=== PATIENT | female | born 1955 | race Caucasian/White ===

== ENCOUNTER → 2017-04-19 | Outpatient (CLI) | payer OTHER ==
[~2017-04-19] MED LIST: ALBU1AER9 INH; FEXO1TAB46 PO; FLUT0.0529 NAE; MIRT15TA2 PO; PSEU30TA20 PO; TIOTCAP INH; TRAM-10 PO
--- NOTE | 2017-04-19 17:01 | DIAGNOSTIC IMAGING REPORT ---
CHEST 2 VIEWS ROUTINE HISTORY: 61 years-old Female COUGH acute cough COMPARISON: Chest radiograph 03/15/2013, chest CT 09/03/2015 TECHNIQUE: PA and lateral views of the chest FINDINGS: Cardiac silhouette is within normal limits. There is no pneumothorax, pleural effusion, or overt pulmonary edema. Patchy opacities are present within the right middle lobe. Severe edematous changes with areas of pleural-parenchymal scarring redemonstrated along with hyperinflation. Bones of the chest appear grossly intact. IMPRESSION: 1. Patchy alveolar opacities of the right middle lobe are suspicious for pneumonia in the appropriate clinical setting. 2. Emphysema. The above report was generated using voice recognition software. It may contain grammatical, syntax or spelling errors. Electronically signed by: Tom Lechuga M.D. 04/19/2017 5:00 PM Dictated Date/Time: 04/19/2017 4:57 PM
== END | disposition home or self-care (01) ==
LOC: C.RAD1850 16:48
PROVIDERS: ATTEND Family Medicine
DX: J43.9 Emphysema, unspecified (principal); R05 Cough

== ENCOUNTER → 2017-04-21 | Outpatient (CLI) | payer OTHER ==
--- NOTE | 2017-04-21 11:41 | DIAGNOSTIC IMAGING REPORT ---
(CHEST) THORAX WITHOUT CT DOSE: 170.38 mGycm CLINICAL HISTORY: 61 years-old Female with ABNORMAL FINDINGS IN LUNG FIELD. Follow-up study to assess lung nodules. History of tobacco abuse and recent pneumonia. TECHNIQUE: Multiaxial CT images of the chest were performed without contrast. A dose lowering technique was utilized adhering to the principles of ALARA. COMPARISON: Chest radiograph 04/19/2017, Chest 09/03/2015, 05/09/2013. FINDINGS: Low attenuating ovoid nodule of the left thyroid lobe measures 12 x 9 mm. No pathologically enlarged lymph nodes of the chest identified by CT size criteria. The heart is normal in size with a small pericardial effusion measuring up to 7 mm anteriorly. Coronary arterial disease. No aortic aneurysm identified. There is mild atherosclerosis of the aorta. Trace right pleural effusion. No pneumothorax. Advanced emphysema. Unchanged 3 mm pulmonary nodule of the left lower lobe on image 220 series 4. 7 x 5 mm ovoid pleural-based nodule of the right lower lobe on image 184 series 4 is unchanged from comparison. 3 mm pleural-based nodule of the left lower lobe on image 119 series 4 is also unchanged. There are nodular tree-in-bud opacities scattered throughout the basal right lower lobe compatible with infectious bronchiolitis. Additionally, patchy alveolar opacities are present within the right middle lobe and medial basal segment right lower lobe. Opacity of the right lower lobe measures 2.0 x 1.3 cm on image 22 series 4. Mild layering secretions of the bronchus intermedius and segmental bronchi of the medial basal segment right lower lobe. Mild bilateral bronchial wall thickening compatible with bronchitis. No acute abnormality of the imaged upper abdomen. Soft tissues are unremarkable. IMPRESSION: 1. Patchy alveolar opacities throughout the right middle and lower lobes suggest pneumonia or aspiration pneumonitis. Areas of subsegmental infectious bronchiolitis are also noted within the right lower lobe with bronchitis and layering secretions of the bronchus intermedius and segmental bronchi of the medial basal segment right lower lobe. Short-term follow-up imaging is needed to document resolution. 2. Trace right pleural effusion. 3. Severe emphysema. 4. Unchanged bilateral pulmonary nodules as above. Electronically signed by: Tom Lechuga M.D. 04/21/2017 11:39 AM Dictated Date/Time: 04/21/2017 11:30 AM
== END | disposition home or self-care (01) ==
LOC: C.CTS 11:18
PROVIDERS: ATTEND Family Medicine
DX: R91.8 Other nonspecific abnormal finding of lung field (principal); J40 Bronchitis, not specified as acute or chronic; J43.9 Emphysema, unspecified; Z87.891 Personal history of nicotine dependence

== ENCOUNTER → 2017-08-03 | Outpatient (CLI) | payer OTHER ==
--- NOTE | 2017-08-03 10:25 | DIAGNOSTIC IMAGING REPORT ---
CHEST 2 VIEWS ROUTINE HISTORY: Shortness of breath. COMPARISON: Chest 04/19/2017. FINDINGS: The lungs are hyperexpanded with apical predominant emphysematous changes. The heart is normal in size. No pleural effusions. No pneumothorax. Left lung remains clear. Right middle lobe density has improved but not completely resolved. IMPRESSION: The right middle lobe density has improved but has not completely resolved. Follow-up chest CT in one month is recommended to ensure complete resolution. Electronically signed by: Rodrigue Palacios M.D. 08/03/2017 10:24 AM Dictated Date/Time: 08/03/2017 10:13 AM
== END | disposition home or self-care (01) ==
LOC: C.RAD1850 09:55
PROVIDERS: ATTEND Physician Assistant
DX: R06.02 Shortness of breath (principal)

== ENCOUNTER → 2017-09-01 | Outpatient (CLI) | payer OTHER ==
--- NOTE | 2017-09-01 10:04 | DIAGNOSTIC IMAGING REPORT ---
CHEST 2 VIEWS ROUTINE HISTORY: 61 years-old Female R91.1 Solitary pulmonary [id number] COMPARISON: Chest radiograph 08/03/2017, chest CT 04/21/2017 TECHNIQUE: PA and lateral views of the chest FINDINGS: Cardiomediastinal and hilar silhouettes are within normal limits. Nipple shadows project of the bilateral lung bases. Advanced emphysema with chronic reticulation redemonstrated. Ill-defined opacities about the medial right lung base are again noted with the previously described discrete pulmonary nodule not definitively seen. Pleural-based opacity projects over the posterior right lung base, seen best on the lateral view. Bones of the chest appear grossly intact. Degenerative changes of the shoulders and spine. IMPRESSION: 1. Ill-defined subsegmental opacities about the right lung base as above likely correlate with the previously described finding seen on CT chest dated 04/21/2017. 2. Emphysema with chronic interstitial coarsening. The above report was generated using voice recognition software. It may contain grammatical, syntax or spelling errors. Electronically signed by: Tom Lechuga M.D. 09/01/2017 10:03 AM Dictated Date/Time: 09/01/2017 9:59 AM
== END | disposition home or self-care (01) ==
LOC: C.RAD1850 09:50
PROVIDERS: ATTEND Physician Assistant
DX: R91.1 Solitary pulmonary nodule (principal); J43.9 Emphysema, unspecified

== ENCOUNTER 2019-01-12 23:25 | Inpatient (IN) ==
--- OUTSIDE RECORDS SUMMARY | 2019-01-12 23:29 | External Medical Summary | Continuity of Care Document ---
:1955 Author Name Van Bui, Provider Address Unavailable Unavailable , Care Team Providers Name Role Phone Unavailable Unavailable Unavailable Memo GRANADO, Fortunato Unavailable [email or web address] Chaka GRANADO, Ashley Unavailable [email or web address] Calista Royal Unavailable [email or web address] LIANE ADORNO Unavailable Unavailable Unavailable Unavailable Unavailable Problems Anxiety (300.00) (F41.9) Gastritis (535.50) (K29.70) Cervical atypism (622.10) (N87.9) Tobacco use (305.1) (Z72.0) Acute sinus infection (461.9) (J01.90) History of pneumonia (V12.61) (Z87.01) Acute bronchitis (466.0) (J20.9) Pulmonary emphysema (492.8) (J43.9) Current tobacco use (305.1) (Z72.0) Chest pain (786.50) (R07.9) Emphysema (492.8) History of allergy (V15.09) (Z88.9) Chronic obstructive pulmonary disease (496) (J44.9) Solitary pulmonary nodule (793.11) (R91.1) Vaginal yeast infection (112.1) (B37.3) Shortness of breath (786.05) (R06.02) Allergies and Adverse Reactions Aspirin TABS (Allergy) Reaction: Nausea, Vomiting PredniSONE TABS (Allergy) Reaction: Othe r Medications Azithromycin 250 MG Oral Tablet; take on e tablet by mouthevery tuesday, tuesday and tuesday LOY Hampton Start: 17-Feb-2018 Quantity: 12 Refills: 3 ProAir HFA 108 (90 Base) MCG/ACT Inhalat ion Aerosol Solution; INHALE 2 PUFFS EVERY 4 HOURS NEEDED. THIS IS A 20 DAY SUPPLY. LOY Hampton Sta rt: 27-Oct-2015 Quantity: 1 8.5 GM Inhaler Refills: 5 Spiriva Respimat 2.5 MCG/ACT Inhalation Aerosol Solution; INHALE 2 PUFFS ONCE DAILY TONI Griffin Start: 23-Mar-2016 Quantity: 1 4 GM Inhaler Refills: 5 buPROPion HCl ER (SR) 150 MG Oral Tablet Extended Release 12 Hour; TAKE 1 TABLET DAILY. CharleneDKaiser Start: 24-Feb-2018 Refills: 0 Marilee TABS , M.D. Refills: 0 Fluconazole 100 MG Oral Tablet; TAKE 1 TABLET DAILY DIRECTED. TONI Griffin Start: 24-Feb-2018 Quantity: 1 Refills: 1 Ipratropium-Albuterol 0.5-2.5 (3) MG/3ML Inhalation Solution; USE 1 UNIT DOSE IN NEBULIZER 4 TIMES DAILY. LOY Null Start: 10-May-2014 Quantity: 1 30 x 3 ML Plas Cont Refills: 5 hydrOXYzine HCl - 10 MG Oral Tablet; AMADO E (1) TABLET FOUR TIMES DAILY NEEDED. LOY Hampton Start: 16-Mar-2018 Quantity: 30 Refills: 3 Procedures History of Thyroid Surgery Status: Compl eted History of Hysterectomy Status: Complete d History of Neuroplasty Decompression Median Nerve At Carpal Status: Completed Tunnel Immunizations Immunizations not documented Family History Sister Family history of Leukemia (V16.6) Status: Active Family history of Cancer Status: Active Mother Family history of Cancer Status: Active Father Family history of Cancer Status: Active Social History - Smoking Status Current every day smoker Plan of Treatment Planned Observations Planned Goals not documented Results No Known Results Results not documented Encounters Appointment; Fortunato Hampton PA-C 16-Mar-2018 15:45 Encounter Diagnosis: Problem not documented Appointment; Calista Griffin CRNP 24-Feb-2018 14:30 Encounter Diagnosis: Problem not documented Appointment; Fortunato Hampton PA-C 17-Feb-2018 10:00 Encounter Diagnosis: Problem not documented Appointment; Fortunato Hampton PA-C 01-Sep-2017 8:30 Encounter Diagnosis: Problem not documented Appointment; Fortunato Hampton PA-C 03-Aug-2017 9:00 Encounter Diagnosis: Problem not documented Appointment; Ashley Null PA-C 17-Mar-2017 15:00 Encounter Diagnosis: Problem not documented
[2019-01-13] MEDS ORDERED: ALBUT/IPRATROP 3MG/0.5MG NEB 3 ML VIAL INH STA (00:02)
[2019-01-13 00:13] LABS: Basophils # (auto) 0.06 K/uL (0-0.2); Basophils % (auto) 1.1 %; Eosinophils # (auto) 0.21 K/uL (0-0.5); Eosinophils % (auto) 3.7 %; Hematocrit (blood only) 39.8 % (37-47); Hemoglobin 13.7 g/dL (12.0-16.0); Immature Granulocytes # (auto) 0.01 K/uL (0.00-0.02); Immature Granulocytes % (auto) 0.2 %; Lymphocytes # (auto) 1.98 K/uL (1.2-3.4); Lymphocytes % (auto) 34.7 %; Mean Corpuscular Hemoglobin 32.2 pg (25-34); Mean Corpuscular Hgb Conc 34.4 g/dL (32-36); Mean Corpuscular Volume 93.4 fL (80-100); Mean Platelet Volume 9.6 fL (7.4-10.4); Monocytes # (auto) 0.57 K/uL (0.11-0.59); Neutrophils # (auto) 2.87 K/uL (1.4-6.5); Neutrophils % (auto) 50.3 %; Platelet Count 218 K/uL (130-400); RDW Coefficient of Variation 12.9 % (11.5-14.5); RDW Standard Deviation 43.8 fL (36.4-46.3); Red Blood Count 4.26 M/uL (4.2-5.4)
[2019-01-13 00:23] LABS: Partial Thromboplastin Time 26.8 Seconds (21.0-31.0)
[2019-01-13 00:31] LABS: Alanine Aminotransferase 20 U/L (12-78); Albumin Level 3.4 gm/dl (3.4-5.0); Aspartate Aminotransferase 13 U/L (15-37); BUN Creatinine Ratio 10.3 (10-20); Blood Urea Nitrogen 10 mg/dl (7-18); Calcium 8.1 mg/dl (8.5-10.1); Carbon Dioxide 30 mmol/L (21-32); Chloride 109 mmol/L (98-107); Est GFR (African American) 74.3; Est GFR (Non-African American) 64.1; Glucose 108 mg/dl (70-99); Potassium 3.8 mmol/L (3.5-5.1); Sodium 143 mmol/L (136-145)
[2019-01-13 00:36] LABS: Albumin Globulin Ratio 1.1 (0.9-2); Alkaline Phosphatase 84 U/L (45-117); Bilirubin,Total 0.3 mg/dl (0.2-1); Globulin 3.1 gm/dl (2.5-4.0); Total Protein 6.5 gm/dl (6.4-8.2); Troponin I < 0.015 ng/ml (0-0.045)
--- NOTE | 2019-01-13 02:42 | History & Physical Report ---
Date of Service January 13, 2019 Assessment & Plan (1) COPD exacerbation: 63-year-old female with past medical history of COPD and tobacco use presents with hypoxia in the setting of a viral upper respiratory infection COPD exacerbation, hypoxia in the setting of viral URI Admit to med surge/telemetry Afebrile, no consolidations on x-ray O2 as needed, prednisone 50 mg daily, [id number] course, duo nebs every 4 hours scheduled, mucinex Patient is on Spiriva at home DVT prophylaxis Lovenox CODE STATUS Full FEN Regular diet (2) Hypoxia: (3) DVT prophylaxis: (4) Tobacco use: History of Present Illness Primary Care Provider: Armando Carter MD 63-year-old female with history of COPD, tobacco use presents with acute shortness of breath. Patient states that she began to have URI symptoms last week. She noticed her breathing becoming worse during this period. 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 Over the past 2 days she is noticed that when she exerts herself she begins to become severely short of breath and has some chest tightness. The chest tightness associated with inspiration. She says that she has had one other hospitalization for COPD in the past. She has a history of smoking, recently quit, but admits to smoking on occasion. Patient denies leg pain, hemoptysis, recent immobility/long car trips, denies family history of blood clots. Her viral symptoms include sore throat, runny nose, cough. She denies fevers, chills. She denies nausea/vomiting/diarrhea. Allergies Allergy/AdvReac Type Severity Reaction Status Date / Time aspirin Allergy Unknown GI SYMPTOMS Verified 01/13/19 00:45 prednisone Allergy Unknown RASH Verified 01/13/19 00:46 Home Medications Home Medications Medication Instructions Recorded Confirmed Type Spiriva Respimat 2 dose INHALATION DAILY 02/09/18 01/13/19 History albuterol sulfate HFA 90 2 puff INHALATION Q4 PRN #8.5 gm 11/30/18 01/13/19 Rx mcg/actuation aerosol inhaler ipratropium-albuterol 0.5 mg-3 3 ml INHALATION QID PRN #3 ml 11/30/18 01/13/19 Rx mg(2.5 mg base)/3 mL nebulization soln Past Med/Surg History Medical History Anxiety (Chronic) Asthma COPD (chronic obstructive pulmonary disease) H/O: hysterectomy URI (upper respiratory infection) Surgical History H/O partial thyroidectomy Social History Preferred Language: Italian 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 Ability: Effective 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 Beliefs That Will Affect Care: None Current Living Situation: Family Current Living Situation Comment: lvies with dtr and her family Feels Safe at Home: Yes Smoking Status: Former smoker Tobacco Type: cigarettes ; Second Hand Exposure: Yes (carpools w/ sister who chain smokes) ; Hx Alcohol Use: No Hx Substance Use: No Review of Systems Review of Systems: All systems reviewed & are unremarkable except as noted in HPI & below Physical Exam Constitutional: WD/WN, vitals as above Eyes: PERRL, conjunctivae normal, anicteric sclerae ENMT: Mildly erythematous posterior pharynx, red boggy nasal mucosa Neck: trachea midline, no thyromegaly Respiratory: + tachypneic, + prolonged expiratory phase and symmetric chest movement; does not use accessory muscles and no audible wheezes Reduced breath sounds Cardiovascular: RRR, no murmur, no edema Gastrointestinal (Abdomen): normal bowel sounds, soft, nontender, no hepatosplenomegaly Musculoskeletal: no cyanosis or clubbing, extremities motor strength 5/5 Skin: no rashes, warm and dry Neurologic: PERRL, EOMI, accommodation nl, no face palsy, no dysarthria Psychiatric: A+Ox3, euthymic affect Results & Data Vital Signs (Past 12 Hours) Vital Signs Temp Pulse Pulse Pulse Pulse Pulse Resp 01/13/19 02:16 69 26 H 01/13/19 02:10 69 22 01/13/19 02:00 73 18 01/13/19 01:59 01/13/19 01:50 73 22 01/13/19 01:40 75 22 01/13/19 01:30 73 18 01/13/19 01:20 79 29 H 01/13/19 01:10 74 24 01/13/19 01:00 75 30 H 01/13/19 00:50 75 30 H 01/13/19 00:49 94 H 89 88 01/13/19 00:47 76 26 H 01/13/19 00:40 77 24 01/13/19 00:30 76 24 01/13/19 00:20 72 20 01/13/19 00:16 77 16 01/13/19 00:10 76 22 01/13/19 00:06 01/13/19 00:00 79 23 01/12/19 23:58 79 24 01/12/19 23:39 36.8 C 80 22 Resp Resp Resp BP Pulse Ox Pulse Ox Pulse Ox 01/13/19 02:16 137/81 96 01/13/19 02:10 97 01/13/19 02:00 95 01/13/19 01:59 88 L 01/13/19 01:50 96 01/13/19 01:40 90 01/13/19 01:30 89 L 01/13/19 01:20 90 01/13/19 01:10 90 01/13/19 01:00 90 01/13/19 00:50 92 01/13/19 00:49 25 H 22 21 85 L 86 L 01/13/19 00:47 160/82 H 92 01/13/19 00:40 91 01/13/19 00:30 93 01/13/19 00:20 99 01/13/19 00:16 90 01/13/19 00:10 90 01/13/19 00:06 90 01/13/19 00:00 90 01/12/19 23:58 91 01/12/19 23:39 140/82 90 Pulse Ox 01/13/19 02:16 01/13/19 02:10 01/13/19 02:00 01/13/19 01:59 01/13/19 01:50 01/13/19 01:40 01/13/19 01:30 01/13/19 01:20 01/13/19 01:10 01/13/19 01:00 01/13/19 00:50 01/13/19 00:49 92 01/13/19 00:47 01/13/19 00:40 01/13/19 00:30 01/13/19 00:20 01/13/19 00:16 01/13/19 00:10 01/13/19 00:06 01/13/19 00:00 01/12/19 23:58 01/12/19 23:39 Code Status & VTE Plan VTE Prophylaxis Plan VTE Prophylaxis will be ordered: Yes PG Care Time/CCT Total # of Minutes Spent Total Time Spent with Patient: Total time spent is greater than 50% in coordination of care (as documented) at patient's floor/unit and/or counseling patient: Resident Activity Tracking Resident Involvement: Resident Care Provided Care Provided: Adult Hospital Medicine
[2019-01-13] MEDS ORDERED: ONDANSETRON INJ 2 MG/ML 2 ML VIAL IV PRN (02:58)
[2019-01-13] MEDS ORDERED: predniSONE 50 MG TAB PO STA (02:58)
[2019-01-13] MEDS ORDERED: ACETAMINOPHEN 325 MG TAB PO PRN (02:58)
[2019-01-13] MEDS ORDERED: AZITHROMYCIN 250 MG TAB PO ONE (02:58)
[2019-01-13] MEDS: ALBUT/IPRATROP 3MG/0.5MG NEB 3 ML VIAL NEB SCH ×4 (03:49→14:46)
--- NOTE | 2019-01-13 07:53 | XRay Report ---
XR chest 1V portable HISTORY: Shortness of breath. COMPARISON: Chest 02/13/2018. FINDINGS: The lungs are hyperexpanded with apical predominant emphysematous changes. No pneumothorax. No pleural effusions. The heart is normal in size. Mild chronic interstitial thickening. No new foca l lung consolidations to suggest pneumonia. No evidence for pulmonary edema. IMPRESSION: Emphysema with chronic interstitial change. This is stable compared to the prior study. No acute proc ess within the chest. Electronically signed by: Rodrigue Palacios M.D. 01/13/2019 7:52 AM
[2019-01-13] MEDS ORDERED: ENOXAPARIN INJ 40 MG/0.4 ML SYR SQ SCH (08:00)
--- NOTE | 2019-01-13 08:03 | Emergency Department Note ---
Entered by Magnolia Guevara acting as a scribe for Savannah Torres DO History of Present Illness General Chief complaint: Shortness of Breath/Dyspnea Stated complaint: HARD TIME BREATHING Time Seen by Provider: 01/13/19 00:12 Source: patient Mode of arrival: ambulatory History of Present Illness Onset (ago): day(s) 1 Location: chest Pain Consistency: + intermittent Maximum Pain Intensity: 0 Quality: + other (shortness of breath) Relieved By: + none Exacerbated By: + movement Associated symptoms: + chest pain and + shortness of breath The patient is a 63 year old female who presents to the Emergency Room with complaints of intermittent chest heaviness and shortness of breath. These symptoms started about a week ago, but worsened tonight. Her pain is exacerbated when she walks. The patient has a history of emphysema, but she has not changed her medications. She is occasionally coughing and has been using nebulizers and inhalers, which have not resolved her symptoms. She stopped smoking about 4 months ago, but states that she did have a cigarette today. She denies history of heart problems, and as never had a cardiac stress test. Home Medications Home Medications Medication Instructions Recorded Confirmed Type Spiriva Respimat 2 dose INHALATION DAILY 02/09/18 01/13/19 History albuterol sulfate HFA 90 2 puff INHALATION Q4 PRN #8.5 gm 11/30/18 01/13/19 Rx mcg/actuation aerosol inhaler ipratropium-albuterol 0.5 mg-3 3 ml INHALATION QID PRN #3 ml 11/30/18 01/13/19 Rx mg(2.5 mg base)/3 mL nebulization soln Allergies Allergy/AdvReac Type Severity Reaction Status Date / Time aspirin Allergy Unknown GI SYMPTOMS Verified 01/13/19 00:45 prednisone Allergy Unknown RASH Verified 01/13/19 00:46 Past Med/Surg History Medical History Anxiety (Chronic) Asthma COPD (chronic obstructive pulmonary disease) H/O: hysterectomy URI (upper respiratory infection) Surgical History H/O partial thyroidectomy Social History Preferred Language: Bengali 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 Ability: Effective [employer] 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 Beliefs That Will Affect Care: None Current Living Situation: Family Current Living Situation Comment: with daughter Other Information That Helps Us Care for You: No Feels Safe at Home: Yes Safety Concerns: Feels Safe At This Time Smoking Status: Former smoker Tobacco Type: cigarettes ; Do You Dip or Chew Tobacco: No ; Second Hand Exposure: Yes ; Tobacco Cessation Education Requested by Patient: No Hx Alcohol Use: No Hx Substance Use: No Review of Systems See HPI for pertinent positives & negatives. and A total of 10 systems reviewed and were otherwise negative Physical Exam Vital Signs Vital Signs - 24 hr 01/12/19 23:39 01/12/19 23:58 01/13/19 00:00 Temperature 36.8 C Temperature Source Oral Sepsis Recent Fever Within 48 Hours No Sepsis Action Taken by Nursing No Action Required Oxygen Flow Rate - Titration Pulse Oximetry Post Tiitration Pulse Rate 80 79 79 Pulse Rate [Exercises] Pulse Rate [Recovery] Pulse Rate [Resting] Pulse Rate [Right Radial] Pulse Rate from SpO2 Sensor 80 79 Respiratory Rate 22 24 23 Respiratory Rate [Exercises] Respiratory Rate [Recovery] Respiratory Rate [Resting] Respiratory Effort / Characteristics Respiratory Depth Respiratory Pattern Blood Pressure 140/82 Blood Pressure Mean 101 Blood Pressure Position Sitting Pulse Oximetry 90 91 90 Pulse Oximetry [Exercises] Pulse Oximetry [Recovery] Pulse Oximetry [Resting] Oxygen Delivery Method Room Air Oxygen Flow Rate 01/13/19 00:02 01/13/19 00:06 01/13/19 00:10 Temperature Temperature Source Sepsis Recent Fever Within 48 Hours Sepsis Action Taken by Nursing Oxygen Flow Rate - Titration Pulse Oximetry Post Tiitration Pulse Rate 76 Pulse Rate [Exercises] Pulse Rate [Recovery] Pulse Rate [Resting] Pulse Rate [Right Radial] Pulse Rate from SpO2 Sensor 77 Respiratory Rate 22 Respiratory Rate [Exercises] Respiratory Rate [Recovery] Respiratory Rate [Resting] Respiratory Effort / Characteristics Non-Labored SOB on Exertion Respiratory Depth Normal Respiratory Pattern Agonal Blood Pressure Blood Pressure Mean Blood Pressure Position Pulse Oximetry 90 90 Pulse Oximetry [Exercises] Pulse Oximetry [Recovery] Pulse Oximetry [Resting] Oxygen Delivery Method Room Air Oxygen Flow Rate 01/13/19 00:16 01/13/19 00:20 01/13/19 00:30 Temperature Temperature Source Sepsis Recent Fever Within 48 Hours Sepsis Action Taken by Nursing Oxygen Flow Rate - Titration Pulse Oximetry Post Tiitration Pulse Rate 72 76 Pulse Rate [Exercises] Pulse Rate [Recovery] Pulse Rate [Resting] Pulse Rate [Right Radial] 77 Pulse Rate from SpO2 Sensor 69 77 Respiratory Rate 16 20 24 Respiratory Rate [Exercises] Respiratory Rate [Recovery] Respiratory Rate [Resting] Respiratory Effort / Characteristics Non-Labored Spontaneous Respiratory Depth Respiratory Pattern Blood Pressure Blood Pressure Mean Blood Pressure Position Pulse Oximetry 90 99 93 Pulse Oximetry [Exercises] Pulse Oximetry [Recovery] Pulse Oximetry [Resting] Oxygen Delivery Method Room Air Oxygen Flow Rate 01/13/19 00:40 01/13/19 00:47 01/13/19 00:49 Temperature Temperature Source Sepsis Recent Fever Within 48 Hours Sepsis Action Taken by Nursing Oxygen Flow Rate - Titration Pulse Oximetry Post Tiitration Pulse Rate 77 76 Pulse Rate [Exercises] 94 H Pulse Rate [Recovery] 89 Pulse Rate [Resting] 88 Pulse Rate [Right Radial] Pulse Rate from SpO2 Sensor 77 76 Respiratory Rate 24 26 H Respiratory Rate [Exercises] 25 H Respiratory Rate [Recovery] 22 Respiratory Rate [Resting] 21 Respiratory Effort / Characteristics Respiratory Depth Respiratory Pattern Blood Pressure 160/82 H Blood Pressure Mean 108 Blood Pressure Position Pulse Oximetry 91 92 Pulse Oximetry [Exercises] 85 L Pulse Oximetry [Recovery] 86 L Pulse Oximetry [Resting] 92 Oxygen Delivery Method Room Air Room Air Oxygen Flow Rate 01/13/19 00:50 01/13/19 01:00 01/13/19 01:10 Temperature Temperature Source Sepsis Recent Fever Within 48 Hours Sepsis Action Taken by Nursing Oxygen Flow Rate - Titration Pulse Oximetry Post Tiitration Pulse Rate 75 75 74 Pulse Rate [Exercises] Pulse Rate [Recovery] Pulse Rate [Resting] Pulse Rate [Right Radial] Pulse Rate from SpO2 Sensor 75 75 75 Respiratory Rate 30 H 30 H 24 Respiratory Rate [Exercises] Respiratory Rate [Recovery] Respiratory Rate [Resting] Respiratory Effort / Characteristics Respiratory Depth Respiratory Pattern Blood Pressure Blood Pressure Mean Blood Pressure Position Pulse Oximetry 92 90 90 Pulse Oximetry [Exercises] Pulse Oximetry [Recovery] Pulse Oximetry [Resting] Oxygen Delivery Method Oxygen Flow Rate 01/13/19 01:20 01/13/19 01:30 01/13/19 01:40 Temperature Temperature Source Sepsis Recent Fever Within 48 Hours Sepsis Action Taken by Nursing Oxygen Flow Rate - Titration Pulse Oximetry Post Tiitration Pulse Rate 79 73 75 Pulse Rate [Exercises] Pulse Rate [Recovery] Pulse Rate [Resting] Pulse Rate [Right Radial] Pulse Rate from SpO2 Sensor 77 73 75 Respiratory Rate 29 H 18 22 Respiratory Rate [Exercises] Respiratory Rate [Recovery] Respiratory Rate [Resting] Respiratory Effort / Characteristics Respiratory Depth Respiratory Pattern Blood Pressure Blood Pressure Mean Blood Pressure Position Pulse Oximetry 90 89 L 90 Pulse Oximetry [Exercises] Pulse Oximetry [Recovery] Pulse Oximetry [Resting] Oxygen Delivery Method Oxygen Flow Rate 01/13/19 01:50 01/13/19 01:59 01/13/19 02:00 Temperature Temperature Source Sepsis Recent Fever Within 48 Hours Sepsis Action Taken by Nursing Oxygen Flow Rate - Titration 2 Pulse Oximetry Post Tiitration 96 Pulse Rate 73 73 Pulse Rate [Exercises] Pulse Rate [Recovery] Pulse Rate [Resting] Pulse Rate [Right Radial] Pulse Rate from SpO2 Sensor 71 73 Respiratory Rate 22 18 Respiratory Rate [Exercises] Respiratory Rate [Recovery] Respiratory Rate [Resting] Respiratory Effort / Characteristics Respiratory Depth Respiratory Pattern Blood Pressure Blood Pressure Mean Blood Pressure Position Pulse Oximetry 96 88 L 95 Pulse Oximetry [Exercises] Pulse Oximetry [Recovery] Pulse Oximetry [Resting] Oxygen Delivery Method Room Air Oxygen Flow Rate 0 01/13/19 02:10 Temperature Temperature Source Sepsis Recent Fever Within 48 Hours Sepsis Action Taken by Nursing Oxygen Flow Rate - Titration Pulse Oximetry Post Tiitration Pulse Rate 69 Pulse Rate [Exercises] Pulse Rate [Recovery] Pulse Rate [Resting] Pulse Rate [Right Radial] Pulse Rate from SpO2 Sensor 69 Respiratory Rate 22 Respiratory Rate [Exercises] Respiratory Rate [Recovery] Respiratory Rate [Resting] Respiratory Effort / Characteristics Respiratory Depth Respiratory Pattern Blood Pressure Blood Pressure Mean Blood Pressure Position Pulse Oximetry 97 Pulse Oximetry [Exercises] Pulse Oximetry [Recovery] Pulse Oximetry [Resting] Oxygen Delivery Method Oxygen Flow Rate HEENT: Head - normocephalic and atraumatic Pupils are equal, round, and reactive to light. Extraocular eye muscles are intact, and sclera are anicteric. Nose - moist nasal mucosa without discharge. Mouth - moist buccal mucosa. Oropharynx is nonerythematous and there is no tonsillar exudate or edema noted. Neck: Supple; no thyromegaly or cervical lymphadenopathy Heart: Regular rate and rhythm. There is a normal S1 and S2 with no murmurs, clicks, or gallops appreciated. Lungs: Moves minimal air. Clear to auscultation bilaterally with no wheezes Abdomen: Soft, completely nontender, nondistended, with good bowel sounds. There are no palpable pulsatile masses or hepatosplenomegaly. There is no guarding, rigidity, or rebound noted. Extremities: No evidence of cyanosis, clubbing, or edema. There are easily palpable peripheral pulses. Skin: warm and dry with good turgor and no rashes. Course 0023: Past medical records reviewed. The patient was evaluated in room C09. A complete history and physical exam was performed. A twelve-lead EKG was obtained as described below. An IV lock was initiated and labs were drawn as above. Patient had a chest x-ray as described below. 0048: Upon walking test, the patients oxygen saturation dropped to 85, and her chest pain returned. 0215: I talked to Savannah Rodriguez regarding the patient. She agreed to take over care for the patient and further evaluate her. Administered Medications Albuterol (Duoneb) 3 ml NEB Q4R QIAN Stop: 02/12/19 02:59 Last Admin: 01/13/19 07:30 Dose: 3 ml Documented by: [id number] Admin: 01/13/19 03:49 Dose: 3 ml Documented by: [id number] Enoxaparin Sodium (Lovenox) 40 mg SQ Q24H QIAN Stop: 02/12/19 07:59 Last Admin: 01/13/19 07:39 Dose: 40 mg Documented by: [id number] Discontinued Medications Albuterol (Duoneb) 3 ml INH NOW STA Stop: 01/13/19 00:03 Last Admin: 01/13/19 00:15 Dose: 3 ml Documented by: [id number] Azithromycin (Zithromax) 500 mg PO NOW ONE Stop: 01/13/19 02:59 Last Admin: 01/13/19 03:34 Dose: 500 mg Documented by: [id number] Prednisone (Prednisone) 50 mg PO NOW STA Stop: 01/13/19 02:59 Last Admin: 01/13/19 03:34 Dose: 50 mg Documented by: [id number] Ranitidine HCl (Zantac) 150 mg PO NOW ONE Stop: 01/13/19 02:59 Last Admin: 01/13/19 03:34 Dose: 150 mg Documented by: [id number] Medical Decision Making Differential Diagnosis Differential diagnosis includes but is not limited to: COPD exacerbation, bronchitis, pneumonia, cardiac ischemia, hypoxia. Medical Records Attestation: I reviewed the patient's medical records. Home Medications Current Medication List: was personally reviewed by me Laboratory Data Attestation: I reviewed the patient's lab results. Result diagrams: 01/12/19 23:58 01/12/19 23:58 Lab Results 01/12/19 01/12/19 01/12/19 Range/Units 23:58 23:58 23:58 WBC 5.70 (4.8-10.8) K/uL RBC 4.26 (4.2-5.4) M/uL Hgb 13.7 (12.0-16.0) g/dL Hct 39.8 (37-47) % MCV 93.4 (80-100) fL MCH 32.2 (25-34) pg MCHC 34.4 (32-36) g/dL RDW Std Deviation 43.8 (36.4-46.3) fL RDW Coeff of Audrey 12.9 (11.5-14.5) % Plt Count 218 (130-400) K/uL MPV 9.6 (7.4-10.4) fL Immature Gran % (Auto) 0.2 % Neut % (Auto) 50.3 % Lymph % (Auto) 34.7 % [place] % (Auto) 10.0 % Eos % (Auto) 3.7 % Baso % (Auto) 1.1 % Immature Gran # (Auto) 0.01 (0.00-0.02) K/uL Neut # (Auto) 2.87 (1.4-6.5) K/uL Lymph # (Auto) 1.98 (1.2-3.4) K/uL [place] # (Auto) 0.57 (0.11-0.59) K/uL Eos # (Auto) 0.21 (0-0.5) K/uL Baso # (Auto) 0.06 (0-0.2) K/uL PT 10.0 (9.0-12.0) Seconds INR 1.0 (0.9-1.1) APTT 26.8 (21.0-31.0) Seconds PTT Ratio 1.0 Sodium 143 (136-145) mmol/L Potassium 3.8 (3.5-5.1) mmol/L Chloride 109 H (98-107) mmol/L Carbon Dioxide 30 (21-32) mmol/L Anion Gap 4.0 (3-11) BUN 10 (7-18) mg/dl Creatinine 0.94 (0.6-1.2) mg/dl Est Cr Clr Drug Dosing Not Reportable Est GFR ( Amer) 74.3 Est GFR (Non-Af Amer) 64.1 BUN/Creatinine Ratio 10.3 (10-20) Glucose 108 H (70-99) mg/dl Calcium 8.1 L (8.5-10.1) mg/dl Total Bilirubin 0.3 (0.2-1) mg/dl AST 13 L (15-37) U/L ALT 20 (12-78) U/L Alkaline Phosphatase 84 (45-117) U/L Troponin I < 0.015 (0-0.045) ng/ml Total Protein 6.5 (6.4-8.2) gm/dl Albumin 3.4 (3.4-5.0) gm/dl Globulin 3.1 (2.5-4.0) gm/dl Albumin/Globulin Ratio 1.1 (0.9-2) Imaging Data Attestation: I personally reviewed and interpreted this imaging study as follows: My Impression: XR CHEST 1V - read by me 010 Chronic emphysematous changes No Pneumothorax No pulmonary consolidation ECG Data Attestation: I personally reviewed and interpreted this ECG as follows: Indication: chest pain Rate (beats per minute): 77 Rhythm: normal sinus Findings: + ST elevation Comparison ECG Date: from (02/13/2018) Change: no significant change Blood Pressure Blood Pressure Findings: Elevated blood pressure Blood Pressure Disposition: further management by hospitalist CAMILLE Alberts The patient is a 63 year old female who presents to the Emergency Room with complaints of intermittent chest heaviness and shortness of breath. The patient has a history of emphysema and has become increasingly short of breath over the past couple of days. She has been using her inhalers more frequently. Became more concerned today because she developed left-sided chest discomfort. EKG was unremarkable. Troponin was negative. However, I was concerned because the patient's left-sided chest discomfort worsened with ambulation and she became more hypoxic. I discussed the case with Dr. Rodriguez and she will evaluate for further management. Impression & Plan Hypoxia, Left-sided chest pain Critical Care Time Critical Care Time: Yes Total Critical Care Time: 30 I have personally spent 30 minutes of critical care time in the direct management of this patient. This includes bedside care, interpretation of diagnostic studies, and testing, discussion with consultants, patient, and family members, and other required patient management activities. This 30 minutes is in excess of all separately billable procedures. Discharge Plan Visit Data *Final* Discharge Date/Time: 01/13/19 02:30 Chief Complaint: Shortness of Breath/Dyspnea Stated Complaint: HARD TIME BREATHING ED Provider: Savannah Torres Discharge Problem: Hypoxia, Left-sided chest pain Patient Disposition: Admitted As Inpatient Discharge Instructions Interventions: ED Discharge Assessment Last Done: 01/13/19 02:30 The scribe's documentation has been prepared under my direction and personally reviewed by me in its entirety. I confirm that the note above accurately reflects all work, treatment, procedures, and medical decision making performed by me.
[2019-01-13] MEDS ORDERED: predniSONE 50 MG TAB PO SCH (09:00)
[2019-01-13] MEDS ORDERED: guaiFENesin 600 MG TABCR PO SCH (09:00)
--- NOTE | 2019-01-13 10:48 | Family Medicine Progress Note ---
Date of Service January 13, 2019 Assessment & Plan (1) COPD exacerbation: 63-year-old female with past medical history of COPD and tobacco use presents with hypoxia in the setting of a viral upper respiratory infection COPD exacerbation, hypoxia in the setting of viral URI Admit to med surge/telemetry Afebrile, no consolidations on x-ray continue prednisone 50 mg daily, [id number] course, duo nebs every 4 hours scheduled, mucinex Patient is on Spiriva at home -will attempt 2 step weaning with respiratory therapy for determination of home O2 requirement Diet: regular diet Code: Full DVT ppx: lovenox (2) Hypoxia: (3) DVT prophylaxis: (4) Tobacco use: Subjective Feels a lot better now; feels like her nose is still congested, unsure if this was the preceeding illness that caused her illness Review of Systems Constitutional: no fever, no chills, no fatigue and no weakness Ear, Nose, Mouth, Throat: + nasal congestion; no post nasal drip and no nasal obstruction Respiratory: no cough, no dyspnea and no pain on inspiration Cardiovascular: no chest pain, no dyspnea, no palpitations and no edema Gastrointestinal: no abdominal pain, no nausea and no vomiting Genitourinary: no dysuria and no hematuria Physical Exam Constitutional: WD/WN, vitals as above Respiratory: normal respiratory effort, lungs clear to auscultation + pursed lip breathing Cardiovascular: RRR, no murmur, no edema Heart Sounds: normal S1 and normal S2 Gastrointestinal (Abdomen): normal bowel sounds, soft, nontender, no hepatosplenomegaly Results & Data Vital Signs (Past 12 Hours) Vital Signs Temp Pulse Pulse Pulse Pulse Pulse Resp 01/13/19 07:33 36.7 C 56 L 01/13/19 07:32 79 18 01/13/19 07:18 36.2 C L 74 18 01/13/19 07:00 73 01/13/19 03:54 71 16 01/13/19 02:45 36.4 C L 69 75 20 01/13/19 02:16 69 26 H 01/13/19 02:10 69 22 01/13/19 02:00 73 18 01/13/19 01:59 01/13/19 01:50 73 22 01/13/19 01:40 75 01/13/19 01:30 73 18 01/13/19 01:20 79 29 H 01/13/19 01:10 74 24 01/13/19 01:00 75 30 H 01/13/19 00:50 75 30 H 01/13/19 00:49 94 H 89 88 01/13/19 00:47 76 26 H 01/13/19 00:40 77 24 01/13/19 00:30 76 24 01/13/19 00:20 72 20 01/13/19 00:16 77 16 01/13/19 00:10 76 22 01/13/19 00:06 01/13/19 00:00 79 23 01/12/19 23:58 79 24 01/12/19 23:39 36.8 C 80 22 Resp Resp Resp BP BP BP Pulse Ox 01/13/19 07:33 134/67 95 01/13/19 07:32 98 01/13/19 07:18 110/64 96 01/13/19 07:00 01/13/19 03:54 96 01/13/19 02:45 161/80 H 96 01/13/19 02:16 137/81 96 01/13/19 02:10 97 01/13/19 02:00 95 01/13/19 01:59 88 L 01/13/19 01:50 96 01/13/19 01:40 90 01/13/19 01:30 89 L 01/13/19 01:20 90 01/13/19 01:10 90 01/13/19 01:00 90 01/13/19 00:50 92 01/13/19 00:49 25 H 22 21 01/13/19 00:47 160/82 H 92 01/13/19 00:40 91 01/13/19 00:30 93 01/13/19 00:20 99 01/13/19 00:16 90 01/13/19 00:10 90 01/13/19 00:06 90 01/13/19 00:00 90 01/12/19 23:58 91 01/12/19 23:39 140/82 90 Pulse Ox Pulse Ox Pulse Ox 01/13/19 07:33 01/13/19 07:32 01/13/19 07:18 01/13/19 07:00 01/13/19 03:54 01/13/19 02:45 01/13/19 02:16 01/13/19 02:10 01/13/19 02:00 01/13/19 01:59 01/13/19 01:50 01/13/19 01:40 01/13/19 01:30 01/13/19 01:20 01/13/19 01:10 01/13/19 01:00 01/13/19 00:50 01/13/19 00:49 85 L 86 L 92 01/13/19 00:47 01/13/19 00:40 01/13/19 00:30 01/13/19 00:20 01/13/19 00:16 01/13/19 00:10 01/13/19 00:06 01/13/19 00:00 01/12/19 23:58 01/12/19 23:39 Laboratory Results 01/12/19 01/12/19 01/12/19 Range/Units 23:58 23:58 23:58 WBC (4.8-10.8) K/uL RBC (4.2-5.4) M/uL Hgb (12.0-16.0) g/dL Hct (37-47) % MCV (80-100) fL MCH (25-34) pg MCHC (32-36) g/dL RDW Std Deviation (36.4-46.3) fL RDW Coeff of Audrey (11.5-14.5) % Plt Count (130-400) K/uL MPV (7.4-10.4) fL Immature Gran % (Auto) % Neut % (Auto) % Lymph % (Auto) % [place] % (Auto) % Eos % (Auto) % Baso % (Auto) % Immature Gran # (Auto) (0.00-0.02) K/uL Neut # (Auto) (1.4-6.5) K/uL Lymph # (Auto) (1.2-3.4) K/uL [place] # (Auto) (0.11-0.59) K/uL Eos # (Auto) (0-0.5) K/uL Baso # (Auto) (0-0.2) K/uL PT 10.0 (9.0-12.0) Seconds INR 1.0 (0.9-1.1) APTT 26.8 (21.0-31.0) Seconds PTT Ratio 1.0 Sodium 143 (136-145) mmol/L Potassium 3.8 (3.5-5.1) mmol/L Chloride 109 H (98-107) mmol/L Carbon Dioxide 30 (21-32) mmol/L Anion Gap 4.0 (3-11) BUN 10 (7-18) mg/dl Creatinine 0.94 (0.6-1.2) mg/dl Est Cr Clr Drug Dosing Not Reportable Est GFR ( Amer) 74.3 Est GFR (Non-Af Amer) 64.1 BUN/Creatinine Ratio 10.3 (10-20) Glucose 108 H (70-99) mg/dl Calcium 8.1 L (8.5-10.1) mg/dl Total Bilirubin 0.3 (0.2-1) mg/dl AST 13 L (15-37) U/L ALT 20 (12-78) U/L Alkaline Phosphatase 84 (45-117) U/L Troponin I < 0.015 (0-0.045) ng/ml Total Protein 6.5 (6.4-8.2) gm/dl Albumin 3.4 (3.4-5.0) gm/dl Globulin 3.1 (2.5-4.0) gm/dl Albumin/Globulin Ratio 1.1 (0.9-2) Hepatitis C Ab Screen Neg (Neg) 01/12/19 Range/Units 23:58 WBC 5.70 (4.8-10.8) K/uL RBC 4.26 (4.2-5.4) M/uL Hgb 13.7 (12.0-16.0) g/dL Hct 39.8 (37-47) % MCV 93.4 (80-100) fL MCH 32.2 (25-34) pg MCHC 34.4 (32-36) g/dL RDW Std Deviation 43.8 (36.4-46.3) fL RDW Coeff of Audrey 12.9 (11.5-14.5) % Plt Count 218 (130-400) K/uL MPV 9.6 (7.4-10.4) fL Immature Gran % (Auto) 0.2 % Neut % (Auto) 50.3 % Lymph % (Auto) 34.7 % [place] % (Auto) 10.0 % Eos % (Auto) 3.7 % Baso % (Auto) 1.1 % Immature Gran # (Auto) 0.01 (0.00-0.02) K/uL Neut # (Auto) 2.87 (1.4-6.5) K/uL Lymph # (Auto) 1.98 (1.2-3.4) K/uL [place] # (Auto) 0.57 (0.11-0.59) K/uL Eos # (Auto) 0.21 (0-0.5) K/uL Baso # (Auto) 0.06 (0-0.2) K/uL PT (9.0-12.0) Seconds INR (0.9-1.1) APTT (21.0-31.0) Seconds PTT Ratio Sodium (136-145) mmol/L Potassium (3.5-5.1) mmol/L Chloride (98-107) mmol/L Carbon Dioxide (21-32) mmol/L Anion Gap (3-11) BUN (7-18) mg/dl Creatinine (0.6-1.2) mg/dl Est Cr Clr Drug Dosing Est GFR ( Amer) Est GFR (Non-Af Amer) BUN/Creatinine Ratio (10-20) Glucose (70-99) mg/dl Calcium (8.5-10.1) mg/dl Total Bilirubin (0.2-1) mg/dl AST (15-37) U/L ALT (12-78) U/L Alkaline Phosphatase (45-117) U/L Troponin I (0-0.045) ng/ml Total Protein (6.4-8.2) gm/dl Albumin (3.4-5.0) gm/dl Globulin (2.5-4.0) gm/dl Albumin/Globulin Ratio (0.9-2) Hepatitis C Ab Screen (Neg) Medications Administered Current Inpatient Medications Acetaminophen (Tylenol) 650 mg PO Q4H PRN PRN Reason: Pain or Fever Stop: 02/12/19 02:57 Albuterol (Duoneb) 3 ml NEB Q4R QIAN Stop: 02/12/19 02:59 Last Admin: 01/13/19 07:30 Dose: 3 ml Documented by: Azithromycin (Zithromax) 250 mg PO QAM QIAN Stop: 01/21/19 08:59 Enoxaparin Sodium (Lovenox) 40 mg SQ Q24H QIAN Stop: 02/12/19 07:59 Last Admin: 01/13/19 07:39 Dose: 40 mg Documented by: Guaifenesin (Mucinex) 600 mg PO Q12 QIAN Stop: 02/12/19 08:59 Last Admin: 01/13/19 09:32 Dose: 600 mg Documented by: Ondansetron HCl (Zofran) 4 mg IV Q6H PRN PRN Reason: Nausea Stop: 02/12/19 02:57 Prednisone (Prednisone) 50 mg PO DAILY [facility] Stop: 02/12/19 08:59 Last Admin: 01/13/19 09:31 Dose: 50 mg Documented by: Ranitidine HCl (Zantac) 150 mg PO QAM [facility] Stop: 02/12/19 08:59 Last Admin: 01/13/19 09:31 Dose: 150 mg Documented by: PG Care Time/CCT Total # of Minutes Spent Total Time Spent with Patient: Total time spent is greater than 50% in coordination of care (as documented) at patient's floor/unit and/or counseling patient: Resident Activity Tracking Resident Involvement: Resident Care Provided Care Provided: Adult Hospital Medicine
--- NOTE | 2019-01-13 17:49 | Discharge Summary ---
Date of Service January 13, 2019 Admission HPI Per Admitting Provider 63-year-old female with history of COPD, tobacco use presents with acute shortness of breath. Patient states that she began to have URI symptoms last week. She noticed her breathing becoming worse during this period. 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. Over the past 2 days she is noticed that when she exerts herself she begins to become severely short of breath and has some chest tightness. The chest tightness associated with inspiration. She says that she has had one other hospitalization for COPD in the past. She has a history of smoking, recently quit, but admits to smoking on occasion. Patient denies leg pain, hemoptysis, recent immobility/long car trips, denies family history of blood clots. Her viral symptoms include sore throat, runny nose, cough. She denies fevers, chills. She denies nausea/vomiting/diarrhea. Admission Exam (Per Admitting) Constitutional WD/WN, vitals as above Respiratory normal respiratory effort, lungs clear to auscultation + pursed lip breathing Cardiovascular RRR, no murmur, no edema Heart Sounds: normal S1 and normal S2 Gastrointestinal (Abdomen) normal bowel sounds, soft, nontender, no hepatosplenomegaly Discharge Data Consultations 01/13/19 01:38 ED Decision to Admit Stat 01/13/19 02:58 Consult Case Management - Discharge Planning Routine Hospital Course (1) COPD exacerbation: 63-year-old female with past medical history of COPD and tobacco use presents with hypoxia in the setting of a viral upper respiratory infection COPD exacerbation, hypoxia in the setting of viral URI Afebrile, no consolidations on x-ray Received IV steroid in ED. Kept on prednisone - Much improved. - Home on prednisone 50 mg daily (5 day course), azithromycin (5 day course), duo nebs every 4 hours scheduled, mucinex Patient is on Spiriva, albuterol MDI at home Hypoxia -home O2 support needed with ambulation/exercise Diet: regular diet Code: Full (2) Hypoxia: (3) DVT prophylaxis: (4) Tobacco use: Supervising Physician Co-Signing Physician Notes Resident Physician Supervision Note: I independently interviewed and examined the patient and verified the herzog history and physical, reviewed labs and image studies, discussed the case with the resident Dr. Stallworth and agree with the findings and care plan. Resident Activity Tracking Resident Involvement: Resident Care Provided Care Provided: Adult Hospital Medicine
[2019-01-14] MEDS ORDERED: AZITHROMYCIN 250 MG TAB PO SCH (09:00)
== END 2019-01-13 18:52 | disposition home or self-care (01) | DRG 192 ==
LOC: ED 23:25 → 2W 01-13 02:14 → SUATTDRO 01-13 02:14 → 2W 01-13 02:30

== ENCOUNTER 2019-05-12 06:41 | Inpatient (IN) ==
[2019-05-12] MEDS ORDERED: ALBUT/IPRATROP 3MG/0.5MG NEB 3 ML VIAL INH STA (07:06)
[2019-05-12] MEDS ORDERED: methylPREDNISolone 125 MG/2 ML VIAL IV STA (07:06)
[2019-05-12 07:23] LABS: Basophils # (auto) 0.03 K/uL (0-0.2); Basophils % (auto) 0.2 %; Eosinophils # (auto) 0.08 K/uL (0-0.5); Eosinophils % (auto) 0.4 %; Hematocrit (blood only) 42.3 % (37-47); Hemoglobin 14.3 g/dL (12.0-16.0); Immature Granulocytes # (auto) 0.06 K/uL (0.00-0.02); Immature Granulocytes % (auto) 0.3 %; Lymphocytes # (auto) 1.87 K/uL (1.2-3.4); Lymphocytes % (auto) 10.4 %; Mean Corpuscular Hemoglobin 31.8 pg (25-34); Mean Corpuscular Hgb Conc 33.8 g/dL (32-36); Mean Corpuscular Volume 94.2 fL (80-100); Mean Platelet Volume 10.5 fL (7.4-10.4); Monocytes # (auto) 0.81 K/uL (0.11-0.59); Monocytes % (auto) 4.5 %; Neutrophils # (auto) 15.08 K/uL (1.4-6.5); Neutrophils % (auto) 84.2 %; Platelet Count 209 K/uL (130-400); RDW Coefficient of Variation 13.2 % (11.5-14.5); RDW Standard Deviation 45.2 fL (36.4-46.3); Red Blood Count 4.49 M/uL (4.2-5.4); White Blood Count 17.93 K/uL (4.8-10.8)
--- NOTE | 2019-05-12 07:49 | XRay Report ---
SINGLE VIEW CHEST CLINICAL HISTORY: Dyspnea. FINDINGS: An AP, portable, upright chest radiograph is compared to study dated 04/25/2019. Correlation is made with chest CT dated 03/04/2019. The cardiomediastinal silhouette is unremarkable. Advanced em physema and chronic interstitial thickening are similar to previous. There are foci of scarring/atele ctasis noted in both lungs. No airspace consolidation or large pleural effusion is identified. No pne umothorax is seen. The skeletal structures are osteopenic. The bony thorax is grossly intact. IMPRESSION: Advanced emphysematous change with no active disease in the chest. ACT 112: Negative or not required by law. Electronically signed by: Salbador Wilkerson M.D. 05/12/2019 7:47 AM
[2019-05-12 07:53] LABS: Partial Thromboplastin Time 27.5 Seconds (21.0-31.0); Prothrombin Time 9.8 Seconds (9.0-12.0)
[2019-05-12 07:58] LABS: Alanine Aminotransferase 16 U/L (12-78); Albumin Level 3.1 gm/dl (3.4-5.0); Aspartate Aminotransferase 13 U/L (15-37); BUN Creatinine Ratio 24.4 (10-20); Blood Urea Nitrogen 20 mg/dl (7-18); Calcium 8.2 mg/dl (8.5-10.1); Carbon Dioxide 27 mmol/L (21-32); Chloride 106 mmol/L (98-107); Creatinine Clr Calc Pharmacy 57.3 ml/min; Est GFR (African American) 87.6; Est GFR (Non-African American) 75.6; Glucose 162 mg/dl (70-99); Magnesium 1.8 mg/dl (1.8-2.4); Potassium 3.7 mmol/L (3.5-5.1); Sodium 138 mmol/L (136-145)
[2019-05-12 08:03] LABS: Albumin Globulin Ratio 0.9 (0.9-2); Alkaline Phosphatase 76 U/L (45-117); Bilirubin,Total 0.4 mg/dl (0.2-1); Globulin 3.4 gm/dl (2.5-4.0); Total Protein 6.5 gm/dl (6.4-8.2); Troponin I < 0.015 ng/ml (0-0.045)
[2019-05-12 08:14] LABS: Influenza A virus by PCR Neg for Influ A (Neg); Influenza B virus by PCR Neg for Influ B (Neg)
[2019-05-12] MEDS ORDERED: ACETAMINOPHEN 325 MG TAB PO STA (09:23)
[2019-05-12] MEDS ORDERED: COUGH DROP (SUGAR FREE) LOZ 24 LOZ/1 BOX BUCCAL STA (09:23)
[2019-05-12 09:52] LABS: Appearance Urine Clear (Clear); Bacteria Urine Automated Negative (Negative); Bilirubin Urine Negative (Negative); Blood Urine Negative (Negative); Color Urine Yellow; Epithelial Cell Urine Auto 20-30 /lpf (0-5); Glucose Urine UA Negative (Negative); Ketones Urine Negative (Negative); Leukocyte Esterase Urine 1+ (Negative); Nitrite Urine Negative (Negative); Protein Urine Negative (Negative); RBC Urine Automated 0-4 /hpf (0-4); Specific Gravity Urine 1.011 (1.000-1.030); Urobilinogen Urine Negative (Negative)
[2019-05-12] MEDS ORDERED: ALBUT/IPRATROP 3MG/0.5MG NEB 3 ML VIAL NEB PRN (10:22)
[2019-05-12] MEDS ORDERED: ONDANSETRON INJ 2 MG/ML 2 ML VIAL IV PRN (10:22)
[2019-05-12] MEDS: ALBUT/IPRATROP 3MG/0.5MG NEB 3 ML VIAL NEB SCH ×2 (11:07→16:13)
--- NOTE | 2019-05-12 11:49 | History & Physical Report ---
Date of Service May 12, 2019 Assessment & Plan (1) COPD exacerbation: increased work of breathing, accessory muscle use, increased sputum production and change in color of sputum Solu Medrol 40mg IV q12 Duoneb scheduled QID and q2 PRN Rocephin 1gm IV q24 and Zithromax 500mg PO daily x 5 days (2) Hypoxia: requiring 3L NC for saturations in the low 90's goal for saturation is 88-90% titrate down as she responds to treatment has home oxygen 2L as needed (3) History of tobacco use: quit 1 year ago, only 3 cigarettes the past year significant smoking history with 40 pack years (4) Weakness: due to COPD exacerbation, hypoxia should improve with supportive care encourage nourishment and hydration History of Present Illness Chief Complaint: I can't breathe Primary Care Provider: Armando Carter MD 63 yo female with history of COPD and tobacco abuse who presents to the ED this morning due to worsening shortness of breath. She reports that her breathing has been a little worse than normal since February. She has noticed some increased dyspnea on exertion for two months. No fever or chills. Her cough has been dry for the past two months but over the past three days she has been producing yellow, thick sputum. No hemoptysis. She reports that she developed a really bad sore throat the 5 days ago, took some Amoxicillin that she had in the house from a prior prescription. Said that the throat got better but breathing got worse. 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 Finally reached the point this morning that she could not catch her breath at rest. She used her home oxygen at 2L but it was not helping so she came into the hospital. In the ED her CXR shows COPD changes but no obvious infiltrate. WBC elevated at 17k, Hb and platelets normal. BMP with normal Cr of 0.8 and electrolytes stable. She was treated with Solu medrol 125mg IV and hour long duoneb and currently feeling a lot better, but still short of breath. Oxygen saturations in the low 90's on 3L NC. Asked to admit patient. Social: former smoke, quit one year ago, used to smoke 1/2 to 1 ppd for 40 years Family history: emphysema in her father and sister, mother of ovarian cancer, has a sister who had ovarian cancer, she has 13 siblings Allergies Allergy/AdvReac Type Severity Reaction Status Date / Time aspirin Allergy Mild GI SYMPTOMS Verified 05/12/19 06:50 Home Medications Home Medications Medication Instructions Recorded Confirmed Type albuterol sulfate [ProAir HFA] 2 puff INHALATION Q4 PRN #8.5 gm NS 03/04/19 05/12/19 Rx tiotropium bromide [Spiriva 2.5 mcg INHALATION UD 05/12/19 05/12/19 History Respimat] Past Med/Surg History Medical History Anxiety (Chronic) Asthma COPD (chronic obstructive pulmonary disease) URI (upper respiratory infection) Surgical History H/O partial thyroidectomy H/O: hysterectomy Family History (Updated 05/12/19 @ 11:44 by Darrell Kim DO) Mother , from ovarian cancer Cancer Ovarian Sister Cancer Ovarian Father COPD (chronic obstructive pulmonary disease) Social History Preferred Language: Maori 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 Ability: Effective 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 Beliefs That Will Affect Care: None marital status: Current Living Situation: Family Current Living Situation Comment: with daughter Other Information That Helps Us Care for You: No Feels Safe at Home: Yes Safety Concerns: Feels Safe At This Time Smoking Status: Former smoker Tobacco Type: cigarettes ; Age Started Using Tobacco: 17 ; Age Quit Using Tobacco: 1 ; packs per day: 1 ; Cigarettes Per Day: 20 ; Do You Dip or Chew Tobacco: No ; Number of Years Since Quit: 1 ; Second Hand Exposure: No ; Tobacco Cessation Education Requested by Patient: No Hx Alcohol Use: No Hx Substance Use: No Review of Systems Review of Systems: All systems reviewed & are unremarkable except as noted in HPI & below Constitutional: + fatigue and + weakness; no fever, no chills and no sweats Respiratory: + cough, + chest congestion, + change in sputum (normally clear, now yellow), + dyspnea, + dyspnea on exertion, + pain with cough, + sputum production and + wheezing; no hemoptysis Cardiovascular: + chest pain, + dyspnea and + dyspnea on exertion; no palpitations, no syncope and no edema Gastrointestinal: no abdominal pain, no nausea, no vomiting, no constipation and no diarrhea/loose stools Genitourinary: no dysuria, no difficulty urinating and no urinary frequency Physical Exam Constitutional: WD/WN, vitals as above + acute distress and + thin Eyes: PERRL, conjunctivae normal, anicteric sclerae Neck: trachea midline, no thyromegaly Respiratory: + labored breathing, + uses accessory muscles and + cough Auscultation: + diminished lung sounds and + rhonchi; no crackles and no wheezes Cardiovascular: Rate/Rhythm: regular rhythm and + tachycardic Heart Sounds: normal S1 and normal S2; no murmur Vessels: no JVD Extremities: normal capillary refill; no edema Gastrointestinal (Abdomen): normal bowel sounds, soft, nontender, no hepatosplenomegaly Musculoskeletal: no cyanosis or clubbing, extremities motor strength 5/5 Skin: no rashes, warm and dry Neurologic: patellar DTR's 2+ bilat, sensation intact and PERRL, EOMI, accommodation nl, no face palsy, no dysarthria Psychiatric: A+Ox3, euthymic affect Lymphatic: no cervical or axillary lymphadenopathy Results & Data Vital Signs (Past 12 Hours) Vital Signs Temp Pulse Pulse Pulse Resp BP BP 05/12/19 11:07 110 H 20 05/12/19 10:26 117 H 05/12/19 10:22 36.7 C 113 H 20 108/62 05/12/19 09:50 122 H 24 131/67 05/12/19 08:30 37.1 C 117 H 24 110/62 05/12/19 08:00 121 H 22 134/70 05/12/19 07:29 116 H 24 05/12/19 07:24 05/12/19 07:00 116 H 23 130/66 05/12/19 06:46 37.7 C H 133 H 24 175/84 H Pulse Ox 05/12/19 11:07 94 05/12/19 10:26 05/12/19 10:22 91 05/12/19 09:50 92 05/12/19 08:30 93 05/12/19 08:00 98 05/12/19 07:29 92 05/12/19 07:24 85 L 05/12/19 07:00 92 05/12/19 06:46 85 L Laboratory Results Laboratory Results - last 24 hr 05/12/19 05/12/19 05/12/19 06:57 07:17 07:32 WBC 17.93 H RBC 4.49 Hgb 14.3 Hct 42.3 MCV 94.2 MCH 31.8 MCHC 33.8 RDW Std Deviation 45.2 RDW Coeff of Audrey 13.2 Plt Count 209 MPV 10.5 H Immature Gran % (Auto) 0.3 Neut % (Auto) 84.2 Lymph % (Auto) 10.4 Eagle % (Auto) 4.5 Eos % (Auto) 0.4 Baso % (Auto) 0.2 Immature Gran # (Auto) 0.06 H Neut # (Auto) 15.08 H Lymph # (Auto) 1.87 Eagle # (Auto) 0.81 H Eos # (Auto) 0.08 Baso # (Auto) 0.03 PT 9.8 INR 1.0 APTT 27.5 PTT Ratio 1.0 Sodium Potassium Chloride Carbon Dioxide Anion Gap BUN Creatinine Est Cr Clr Drug Dosing Est GFR ( Amer) Est GFR (Non-Af Amer) BUN/Creatinine Ratio Glucose Calcium Magnesium Total Bilirubin AST ALT Alkaline Phosphatase Troponin I Total Protein Albumin Globulin Albumin/Globulin Ratio Urine Color Urine Appearance Urine pH Ur Specific [place] Urine Protein Urine Glucose (UA) Urine Ketones Urine Blood Urine Nitrite Urine Bilirubin Urine Urobilinogen Ur Leukocyte Esterase Urine WBC (Auto) Urine RBC (Auto) U Hyaline Cast (Auto) U Epithel Cells (Auto) Urine Bacteria (Auto) Influenza Type A (PCR) Neg for Influ A Influenza Type B (PCR) Neg for Influ B 05/12/19 05/12/19 07:32 09:36 WBC RBC Hgb Hct MCV MCH MCHC RDW Std Deviation RDW Coeff of Audrey Plt Count MPV Immature Gran % (Auto) Neut % (Auto) Lymph % (Auto) Eagle % (Auto) Eos % (Auto) Baso % (Auto) Immature Gran # (Auto) Neut # (Auto) Lymph # (Auto) Eagle # (Auto) Eos # (Auto) Baso # (Auto) PT INR APTT PTT Ratio Sodium 138 Potassium 3.7 Chloride 106 Carbon Dioxide 27 Anion Gap 5.0 BUN 20 H Creatinine 0.82 Est Cr Clr Drug Dosing 57.3 Est GFR ( Amer) 87.6 Est GFR (Non-Af Amer) 75.6 BUN/Creatinine Ratio 24.4 H Glucose 162 H Calcium 8.2 L Magnesium 1.8 Total Bilirubin 0.4 AST 13 L ALT 16 Alkaline Phosphatase 76 Troponin I < 0.015 Total Protein 6.5 Albumin 3.1 L Globulin 3.4 Albumin/Globulin Ratio 0.9 Urine Color Yellow Urine Appearance Clear Urine pH 5.0 Ur Specific [place] 1.011 Urine Protein Negative Urine Glucose (UA) Negative Urine Ketones Negative Urine Blood Negative Urine Nitrite Negative Urine Bilirubin Negative Urine Urobilinogen Negative Ur Leukocyte Esterase 1+ H Urine WBC (Auto) 1-5 Urine RBC (Auto) 0-4 U Hyaline Cast (Auto) 1-5 U Epithel Cells (Auto) 20-30 H Urine Bacteria (Auto) Negative Influenza Type A (PCR) Influenza Type B (PCR) Medications Administered SINGLE VIEW CHEST CLINICAL HISTORY: Dyspnea. FINDINGS: An AP, portable, upright chest radiograph is compared to study dated 04/25/2019. Correlation is made with chest CT dated 03/04/2019. The cardiomediastinal silhouette is unremarkable. Advanced emphysema and chronic interstitial thickening are similar to previous. There are foci of scarring/atelectasis noted in both lungs. No airspace consolidation or large pleural effusion is identified. No pneumothorax is seen. The skeletal structures are osteopenic. The bony thorax is grossly intact. IMPRESSION: Advanced emphysematous change with no active disease in the chest. Code Status & VTE Plan Code Status Full Code VTE Prophylaxis Plan VTE Prophylaxis will be ordered: Yes PG Care Time/CCT Total # of Minutes Spent Total Time Spent with Patient: Total time spent is greater than 50% in coordination of care (as documented) at patient's floor/unit and/or counseling patient: Coding Level of Care Code 40928 Initial Inpt Care Lvl 3 Diagnoses COPD exacerbation J44.1 Hypoxia R09.02 History of tobacco use Z87.891 Weakness R53.1
[2019-05-12] MEDS: AZITHROMYCIN 250 MG TAB PO SCH (12:08)
[2019-05-12] MEDS: cefTRIAXone SODIUM 1,000 MG in DEXTROSE 5% 50 ML IV SCH (12:19)
--- NOTE | 2019-05-12 12:51 | Emergency Department Note ---
Entered by Renetta Pantoja acting as a scribe for Clotilde Madrigal MD History of Present Illness General Chief complaint: Shortness of Breath/Dyspnea Stated complaint: SHORT OF BREATH Source: patient Mode of arrival: EMS Limitations: no limitations History of Present Illness Onset (ago): day(s) 2 Location: chest Radiation: non-radiation Pain Consistency: + constant Maximum Pain Intensity: 2 Current Pain Intensity: 2 Relieved By: + medication (nebulizer) Exacerbated By: + none Associated symptoms: + chest pain, + fever/chills and + other (+sore throat) Treatments prior to arrival: other (nebulizer) The patient is a 63 year old female who presents to the ED with complaints of shortness of breath for the past 2 days. She was brought to the ED via EMS. 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 She rates her discomfort as a 2/10 in severity. She has tried using a nebulizer with minimal relief. She is a former smoker and does have a history of COPD and recently had pneumonia and a viral illness with a sore throat. She is febrile in the ED. The patient is unsure if she received a flu shot this year. Home Medications Home Medications Medication Instructions Recorded Confirmed Type albuterol sulfate [ProAir HFA] 2 puff INHALATION Q4 PRN #8.5 gm NS 03/04/19 05/12/19 Rx tiotropium bromide [Spiriva 2.5 mcg INHALATION UD 05/12/19 05/12/19 History Respimat] Allergies Allergy/AdvReac Type Severity Reaction Status Date / Time aspirin Allergy Mild GI SYMPTOMS Verified 05/12/19 06:50 Past Med/Surg History Medical History Anxiety (Chronic) Asthma COPD (chronic obstructive pulmonary disease) URI (upper respiratory infection) Surgical History H/O partial thyroidectomy H/O: hysterectomy Family History (Updated 05/12/19 @ 11:44 by Darrell Kim DO) Mother , from ovarian cancer Cancer Ovarian Sister Cancer Ovarian Father COPD (chronic obstructive pulmonary disease) Social History Preferred Language: Swedish 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 Ability: Effective 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 Boss 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 Beliefs That Will Affect Care: None marital status: Current Living Situation: Family Current Living Situation Comment: with daughter Other Information That Helps Us Care for You: No Feels Safe at Home: Yes Safety Concerns: Feels Safe At This Time Smoking Status: Former smoker Tobacco Type: cigarettes ; Age Started Using Tobacco: 17 ; Age Quit Using Tobacco: 1 ; packs per day: 1 ; Cigarettes Per Day: 20 ; Do You Dip or Chew Tobacco: No ; Number of Years Since Quit: 1 ; Second Hand Exposure: No ; Tobacco Cessation Education Requested by Patient: No Hx Alcohol Use: No Hx Substance Use: No Review of Systems See HPI for pertinent positives & negatives. and A total of 10 systems reviewed and were otherwise negative Physical Exam Vital Signs Vital Signs - 24 hr 05/12/19 06:46 05/12/19 07:00 05/12/19 07:24 Temperature 37.7 C H Temperature Source Oral Pulse Rate 133 H Pulse Rate [Apical] 116 H Pulse Rhythm Regular Pulse Rhythm [Apical] Regular Pulse Strength Normal Respiratory Rate 24 23 Respiratory Effort / Characteristics Labored Spontaneous Respiratory Depth Deep Respiratory Pattern Regular Blood Pressure 175/84 H Blood Pressure [Right Arm] 130/66 Blood Pressure Mean 114 Blood Pressure Mean [Right Arm] 87 Blood Pressure Position Sitting Pulse Oximetry 85 L 92 85 L Oxygen Delivery Method Room Air Nasal Cannula Room Air Nasal Cannula Oxygen Flow Rate 4 4 Sepsis Recent Fever Within 48 Hours No Sepsis New/Unexplained Change in Mental Status No Sepsis Action Taken by Nursing No Action Required Oxygen Flow Rate - Titration 4 Pulse Oximetry Post Tiitration 92 05/12/19 07:29 05/12/19 08:00 05/12/19 08:30 Temperature 37.1 C Temperature Source Oral Pulse Rate Pulse Rate [Apical] 116 H 121 H 117 H Pulse Rhythm Pulse Rhythm [Apical] Regular Regular Pulse Strength Respiratory Rate 24 22 24 Respiratory Effort / Characteristics Spontaneous Non-Labored Spontaneous Spontaneous Respiratory Depth Normal Respiratory Pattern Regular Regular Blood Pressure Blood Pressure [Right Arm] 134/70 110/62 Blood Pressure Mean Blood Pressure Mean [Right Arm] 91 78 Blood Pressure Position Pulse Oximetry 92 98 93 Oxygen Delivery Method Nasal Cannula Nebulizer Nasal Cannula Oxygen Flow Rate 5 3 Sepsis Recent Fever Within 48 Hours Sepsis New/Unexplained Change in Mental Status Sepsis Action Taken by Nursing Oxygen Flow Rate - Titration Pulse Oximetry Post Tiitration Vital signs reviewed. General: Well-appearing 63 year old female, in no significant distress. HEENT: No scleral icterus, PERRLA, neck supple. Atraumatic. Some erythema with exudates to posterior oropharynx. Cardiovascular: Tachycardic rate, regular rhythm, no extra sounds. Pulmonary: Distant breath sounds bilaterally, normal work of breathing. Abdomen: Soft, nontender, nondistended, positive bowel sounds. Musculoskeletal: Atraumatic, no peripheral edema. Neurologic: Patient awake alert and oriented x 3 Skin: Warm, dry, no rash Course Course 0704: The patient was evaluated in room A10 and a complete history and physical were performed. 0845: I reevaluated the patient. She is resting comfortably. I discussed her results and my recommendation she remain in the hospital for further evaluation and management and she is agreeable with the plan. 0903: I discussed the patients case with Dr. Kim, [facility]. The patient will be further evaluated. Consultations Consultation #1: I discussed the patients case with Dr. Kim, [facility]. The patient will be further evaluated. Time: 09:03 Administered Medications Albuterol (Duoneb) 3 ml NEB QIDR REPLACED BY [facility] Stop: 06/11/19 10:59 Last Admin: 05/12/19 11:07 Dose: 3 ml Documented by: [id number] Azithromycin (Zithromax) 500 mg PO QAM REPLACED BY [facility] Stop: 05/19/19 10:59 Last Admin: 05/12/19 12:08 Dose: 500 mg Documented by: [id number] Heparin Sodium (Porcine) (Heparin Sodium (Porcine)) 5,000 units SQ Q8 QIAN Stop: 06/11/19 13:59 Last Admin: 05/12/19 13:01 Dose: Not Given Documented by: [id number] Ceftriaxone Sodium 1,000 mg/ (Dextrose) 60 mls @ 100 mls/hr IV DAILY REPLACED BY [facility]; Protocol Stop: 05/19/19 11:59 Last Infusion: 05/12/19 13:01 Dose: 0 mls/hr Documented by: [id number] Admin: 05/12/19 12:19 Dose: 100 mls/hr Documented by: [id number] Discontinued Medications Acetaminophen (Tylenol) 650 mg PO NOW [facility] Stop: 05/12/19 09:24 Last Admin: 05/12/19 09:26 Dose: 650 mg Documented by: [id number] Albuterol (Duoneb) 12 ml INH ONE STA Stop: 05/12/19 07:07 Last Admin: 05/12/19 07:29 Dose: 12 ml Documented by: [id number] Menthol (Nice) 1 janee BUCCAL NOW STA Stop: 05/12/19 09:24 Last Admin: 05/12/19 09:26 Dose: 1 janee Documented by: [id number] Methylprednisolone (Solumedrol) 125 mg IV NOW STA Stop: 05/12/19 07:07 Last Admin: 05/12/19 07:13 Dose: Not Given Documented by: [id number] Medical Decision Making Differential Diagnosis Differential diagnoses includes but is not limited to pneumonia, bronchitis, COPD/Asthma exacerbation, pneumothorax, pulmonary embolism, congestive heart failure, acute coronary syndrome. Medical Records Attestation: I reviewed the patient's medical records. Home Medications Current Medication List: was personally reviewed by me Laboratory Data Attestation: I reviewed the patient's lab results. Result diagrams: 05/12/19 06:57 05/12/19 07:32 Lab Results 05/12/19 05/12/19 05/12/19 Range/Units 06:57 07:17 07:32 WBC 17.93 H (4.8-10.8) K/uL RBC 4.49 (4.2-5.4) M/uL Hgb 14.3 (12.0-16.0) g/dL Hct 42.3 (37-47) % MCV 94.2 (80-100) fL MCH 31.8 (25-34) pg MCHC 33.8 (32-36) g/dL RDW Std Deviation 45.2 (36.4-46.3) fL RDW Coeff of Audrey 13.2 (11.5-14.5) % Plt Count 209 (130-400) K/uL MPV 10.5 H (7.4-10.4) fL Immature Gran % (Auto) 0.3 % Neut % (Auto) 84.2 % Lymph % (Auto) 10.4 % [place] % (Auto) 4.5 % Eos % (Auto) 0.4 % Baso % (Auto) 0.2 % Immature Gran # (Auto) 0.06 H (0.00-0.02) K/uL Neut # (Auto) 15.08 H (1.4-6.5) K/uL Lymph # (Auto) 1.87 (1.2-3.4) K/uL [place] # (Auto) 0.81 H (0.11-0.59) K/uL Eos # (Auto) 0.08 (0-0.5) K/uL Baso # (Auto) 0.03 (0-0.2) K/uL PT 9.8 (9.0-12.0) Seconds INR 1.0 (0.9-1.1) APTT 27.5 (21.0-31.0) Seconds PTT Ratio 1.0 Sodium (136-145) mmol/L Potassium (3.5-5.1) mmol/L Chloride (98-107) mmol/L Carbon Dioxide (21-32) mmol/L Anion Gap (3-11) BUN (7-18) mg/dl Creatinine (0.6-1.2) mg/dl Est Cr Clr Drug Dosing ml/min Est GFR ( Amer) Est GFR (Non-Af Amer) BUN/Creatinine Ratio (10-20) Glucose (70-99) mg/dl Calcium (8.5-10.1) mg/dl Magnesium (1.8-2.4) mg/dl Total Bilirubin (0.2-1) mg/dl AST (15-37) U/L ALT (12-78) U/L Alkaline Phosphatase (45-117) U/L Troponin I (0-0.045) ng/ml Total Protein (6.4-8.2) gm/dl Albumin (3.4-5.0) gm/dl Globulin (2.5-4.0) gm/dl Albumin/Globulin Ratio (0.9-2) Influenza Type A (PCR) Neg for Influ A (Neg) Influenza Type B (PCR) Neg for Influ B (Neg) 05/12/19 Range/Units 07:32 WBC (4.8-10.8) K/uL RBC (4.2-5.4) M/uL Hgb (12.0-16.0) g/dL Hct (37-47) % MCV (80-100) fL MCH (25-34) pg MCHC (32-36) g/dL RDW Std Deviation (36.4-46.3) fL RDW Coeff of Audrey (11.5-14.5) % Plt Count (130-400) K/uL MPV (7.4-10.4) fL Immature Gran % (Auto) % Neut % (Auto) % Lymph % (Auto) % [place] % (Auto) % Eos % (Auto) % Baso % (Auto) % Immature Gran # (Auto) (0.00-0.02) K/uL Neut # (Auto) (1.4-6.5) K/uL Lymph # (Auto) (1.2-3.4) K/uL [place] # (Auto) (0.11-0.59) K/uL Eos # (Auto) (0-0.5) K/uL Baso # (Auto) (0-0.2) K/uL PT (9.0-12.0) Seconds INR (0.9-1.1) APTT (21.0-31.0) Seconds PTT Ratio Sodium 138 (136-145) mmol/L Potassium 3.7 (3.5-5.1) mmol/L Chloride 106 (98-107) mmol/L Carbon Dioxide 27 (21-32) mmol/L Anion Gap 5.0 (3-11) BUN 20 H (7-18) mg/dl Creatinine 0.82 (0.6-1.2) mg/dl Est Cr Clr Drug Dosing 57.3 ml/min Est GFR ( Amer) 87.6 Est GFR (Non-Af Amer) 75.6 BUN/Creatinine Ratio 24.4 H (10-20) Glucose 162 H (70-99) mg/dl Calcium 8.2 L (8.5-10.1) mg/dl Magnesium 1.8 (1.8-2.4) mg/dl Total Bilirubin 0.4 (0.2-1) mg/dl AST 13 L (15-37) U/L ALT 16 (12-78) U/L Alkaline Phosphatase 76 (45-117) U/L Troponin I < 0.015 (0-0.045) ng/ml Total Protein 6.5 (6.4-8.2) gm/dl Albumin 3.1 L (3.4-5.0) gm/dl Globulin 3.4 (2.5-4.0) gm/dl Albumin/Globulin Ratio 0.9 (0.9-2) Influenza Type A (PCR) (Neg) Influenza Type B (PCR) (Neg) Imaging Data Radiologist's Impression: Radiology results as stated below per my review and the radiologist's interpretation: SINGLE VIEW CHEST CLINICAL HISTORY: Dyspnea. FINDINGS: An AP, portable, upright chest radiograph is compared to study dated 04/25/2019. Correlation is made with chest CT dated 03/04/2019. The cardiomediastinal silhouette is unremarkable. Advanced emphysema and chronic interstitial thickening are similar to previous. There are foci of scarring/atelectasis noted in both lungs. No airspace consolidation or large pleural effusion is identified. No pneumothorax is seen. The skeletal structures are osteopenic. The bony thorax is grossly intact. IMPRESSION: Advanced emphysematous change with no active disease in the chest. ACT 112: Negative or not required by law. Electronically signed by: Salbador Wilkerson M.D. 05/12/2019 7:47 AM ECG Data Attestation: I personally reviewed and interpreted this ECG as follows: Indication: + SOB/dyspnea Rate (beats per minute): 130 Rhythm: + sinus tachycardia ECG Intervals/blocks: + Normal QT-c (376) ECG ST segments: + Nonspecific ST abnormalities (inferior and lateral) ECG Findings: + PVCs Additional Comments: An order for cardiac monitoring was placed. Patient is found to be in a sinus tachycardia at approximately 130 bpm. Blood Pressure Blood Pressure Findings: Elevated blood pressure MDM Narrative This patient was evaluated and appeared to be in no significant distress. IV access was obtained and laboratory work was drawn. The patient was placed on the cardiac rn and found to be in a sinus tachycardia. Patient had 2 duo nebs prior to arrival. Patient did receive IV Solu-Medrol prior to arrival. An hour-long DuoNeb treatment was ordered. Chest x-ray was performed and reveals advanced emphysema. There is no focal lung consolidation or evidence of failure. Patient has been maintaining her oxygen on 4 L nasal cannula. Patient was turned down to 2 L nasal cannula. Case was discussed with the hospitalist service for further management. Patient is aware of the plan and agrees. Impression & Plan COPD exacerbation Discharge Plan Visit Data *Final* Discharge Date/Time: 05/12/19 09:50 Chief Complaint: Shortness of Breath/Dyspnea Stated Complaint: SHORT OF BREATH ED Provider: Clotilde Madrigal Discharge Problem: COPD exacerbation Patient Disposition: Admitted As Inpatient Discharge Instructions Interventions: ED Discharge Assessment Last Done: 05/12/19 09:50 The scribe's documentation has been prepared under my direction and personally reviewed by me in its entirety. I confirm that the note above accurately reflec ts all work, treatment, procedures, and medical decision making performed by me.
[2019-05-12] MEDS: HEPARIN SOD 5,000 UNIT/0.5 ML VIAL SQ SCH ×2 (13:01→21:02)
[2019-05-12] MEDS: ACETAMINOPHEN 325 MG TAB PO PRN ×2 (14:50→20:53)
[2019-05-12] MEDS ORDERED: SODIUM CHLORIDE 0.9% 1000ML 500 ML IV ONE (17:35)
[2019-05-12] MEDS: LEVALBUTEROL HCL 0.63 MG/3 ML NEB NEB SCH (19:58)
--- NOTE | 2019-05-12 20:23 | Electrocardiogram Report ---
Test Reason : Blood Pressure : / mmHG Vent. Rate : 130 BPM Atrial Rate : 130 BPM P-R Int : 158 ms QRS Dur : 072 ms QT Int : 256 ms P-R-T Axes : 084 082 085 degrees QTc Int : 376 ms Sinus tachycardia with occasional Premature ventricular complexes Nonspecific ST and T wave abnormality Abnormal ECG When compared with ECG of 04-MAR-2019 18:08, Premature ventricular complexes are now Present Vent. rate has increased BY 59 BPM Non-specific change in ST segment in Inferior leads ST now depressed in Anterolateral leads Nonspecific T wave abnormality now evident in Inferior leads Nonspecific T wave abnormality now evident in Lateral leads Confirmed by Arthur Pack ([id number] on 05/12/2019 8:22:29 PM Referred By: REFERRED SELF Confirmed By:Glenroy Pack
[2019-05-12] MEDS: SODIUM CHLORIDE 0.9% 1000ML 1,000 ML IV SCH (20:45)
[2019-05-12] MEDS: methylPREDNISolone 40 MG in SYRINGE 0 ML IV SCH (20:54)
[2019-05-13] MEDS ORDERED: Nursing to Pharmacy 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 ONE (03:50)
[2019-05-13] MEDS: HEPARIN SOD 5,000 UNIT/0.5 ML VIAL SQ SCH ×3 (06:16→21:25)
[2019-05-13 06:22] LABS: BUN Creatinine Ratio 27.3 (10-20); Calcium 8.1 mg/dl (8.5-10.1); Creatinine Clr Calc Pharmacy 69.1 ml/min; Est GFR (African American) 107.1; Est GFR (Non-African American) 92.4; Potassium 4.5 mmol/L (3.5-5.1)
[2019-05-13 06:34] LABS: Thyroid Stimulating Hormone 0.287 uIu/ml (0.300-4.500)
[2019-05-13] MEDS: LEVALBUTEROL HCL 0.63 MG/3 ML NEB NEB SCH ×4 (07:11→19:13)
[2019-05-13] MEDS: methylPREDNISolone 40 MG in SYRINGE 0 ML IV SCH ×2 (08:01→21:25)
[2019-05-13] MEDS: SODIUM CHLORIDE 0.9% 1000ML 1,000 ML IV SCH (08:01)
[2019-05-13] MEDS: cefTRIAXone SODIUM 1,000 MG in DEXTROSE 5% 50 ML IV SCH (08:01)
[2019-05-13] MEDS: AZITHROMYCIN 250 MG TAB PO SCH (08:01)
[2019-05-13] MEDS: ACETAMINOPHEN 325 MG TAB PO PRN (08:08)
--- NOTE | 2019-05-13 14:29 | Hospitalist Progress Note ---
Date of Service May 13, 2019 Assessment & Plan (1) COPD exacerbation: increased work of breathing, accessory muscle use, increased sputum production and change in color of sputum at time of admission continue Solu Medrol 40mg IV q12 will change to Prednisone 40mg daily tomorrow AM levalbuterol scheduled QID and q2 PRN Rocephin 1gm IV q24 and Zithromax 500mg PO daily x 5 days can change to PO antibiotics on discharge potential for discharge tomorrow afternoon if she continues to improve would need weaned off of oxygen as she does not take at home ordered 2 step for tomorrow consult placed for COPD clinic referral after discharge, patient does follow with [facility] for pulmonary she is high risk for readmission (2) Hypoxia: requiring 3L NC for saturations in the low 90's on admission goal for saturation is 88-90% titrated to 2L today, saturation 90 2 step tomorrow in case she would require home oxygen (3) History of tobacco use: quit 1 year ago, only 3 cigarettes the past year significant smoking history with 40 pack years (4) Weakness: due to COPD exacerbation, hypoxia should improve with supportive care encourage nourishment and hydration, she is eating better Plan: downgrade to medical floor possible d/c tomorrow afternoon if she continues to progress Subjective patient feeling a lot better today tolerating breathing treatment had some tachycardia last night, resolved with IV fluids and changing to levalbuterol updated her daughter at the bedside patient is eating and drinking more now still producing yellow sputum, no blood in sputum no chest pain or pressure, no fever reviewed BMP, stable Review of Systems Review of Systems: All systems reviewed & are unremarkable except as noted in HPI & below Constitutional: + fatigue and + weakness; no fever and no sweats Respiratory: + cough, + dyspnea, + dyspnea on exertion and + sputum production; no hemoptysis Cardiovascular: no chest pain and no edema Gastrointestinal: no abdominal pain, no nausea, no vomiting, no constipation and no diarrhea/loose stools Physical Exam Constitutional: WD/WN, vitals as above + acute distress and + thin Eyes: PERRL, conjunctivae normal, anicteric sclerae Neck: trachea midline, no thyromegaly Respiratory: + cough Auscultation: + diminished lung sounds; no crackles and no wheezes Cardiovascular: Rate/Rhythm: regular rate and regular rhythm Heart Sounds: normal S1 and normal S2; no murmur Vessels: no JVD Extremities: normal capillary refill; no edema Gastrointestinal (Abdomen): normal bowel sounds, soft, nontender, no hepatosplenomegaly Musculoskeletal: no cyanosis or clubbing, extremities motor strength 5/5 Skin: no rashes, warm and dry Neurologic: patellar DTR's 2+ bilat, sensation intact and PERRL, EOMI, accommodation nl, no face palsy, no dysarthria Psychiatric: A+Ox3, euthymic affect Lymphatic: no cervical or axillary lymphadenopathy Results & Data Vital Signs (Past 12 Hours) Vital Signs Temp Pulse Pulse Resp BP Pulse Ox 05/13/19 11:15 86 21 90 05/13/19 07:35 69 05/13/19 07:30 36.5 C 89 20 122/71 91 05/13/19 07:11 90 18 98 05/13/19 04:51 36.7 C 78 18 106/64 97 Laboratory Results Laboratory Results - last 24 hr 05/13/19 05/13/19 05:35 07:56 Sodium 140 Potassium 4.5 D Chloride 109 H Carbon Dioxide 29 Anion Gap 2.0 L BUN 19 H Creatinine 0.68 Est Cr Clr Drug Dosing 69.1 Est GFR ( Amer) 107.1 Est GFR (Non-Af Amer) 92.4 BUN/Creatinine Ratio 27.3 H Glucose 158 H Calcium 8.1 L TSH 0.287 L Thyroxine (T4) 4.6 Medications Administered Current Inpatient Medications Acetaminophen (Tylenol) 650 mg PO Q4H PRN PRN Reason: Pain or Fever Stop: 06/11/19 10:21 Last Admin: 05/13/19 08:08 Dose: 650 mg Documented by: Azithromycin (Zithromax) 500 mg PO QAM [facility] Stop: 05/19/19 10:59 Last Admin: 05/13/19 08:01 Dose: 500 mg Documented by: Heparin Sodium (Porcine) (Heparin Sodium (Porcine)) 5,000 units SQ Q8 [facility] Stop: 06/11/19 13:59 Last Admin: 05/13/19 13:06 Dose: Not Given Documented by: Methylprednisolone 40 mg/ (Syringe) 0.64 mls @ 1.5 mls/min IV Q12 [facility] Stop: 06/11/19 20:59 Last Admin: 05/13/19 08:01 Dose: 1.5 mls/min Documented by: Ceftriaxone Sodium 1,000 mg/ (Dextrose) 60 mls @ 100 mls/hr IV DAILY QIAN; Protocol Stop: 05/19/19 11:59 Last Infusion: 05/13/19 08:46 Dose: Infused Documented by: Levalbuterol HCl (Xopenex 0.63 Mg/3 Ml Neb) 0.63 mg NEB Q4HWA QIAN Stop: 06/11/19 19:59 Last Admin: 05/13/19 11:15 Dose: 0.63 mg Documented by: Ondansetron HCl (Zofran) 4 mg IV Q6H PRN PRN Reason: Nausea Stop: 06/11/19 10:21 PG Care Time/CCT Total # of Minutes Spent Total Time Spent: 37 Total Time Spent with Patient: Total time spent is greater than 50% in coordination of care (as documented) at patient's floor/unit and/or counseling patient: Coding Level of Care Code 64999 Subseq Hosp Care Lvl 3 Diagnoses COPD exacerbation J44.1 Hypoxia R09.02 History of tobacco use Z87.891 Weakness R53.1
[2019-05-14] MEDS: HEPARIN SOD 5,000 UNIT/0.5 ML VIAL SQ SCH ×2 (05:10→14:22)
[2019-05-14] MEDS: LEVALBUTEROL HCL 0.63 MG/3 ML NEB NEB SCH ×4 (07:04→19:43)
[2019-05-14] MEDS: AZITHROMYCIN 250 MG TAB PO SCH (08:29)
[2019-05-14] MEDS: cefTRIAXone SODIUM 1,000 MG in DEXTROSE 5% 50 ML IV SCH (08:29)
[2019-05-14] MEDS: predniSONE 20 MG TAB PO SCH (08:32)
[2019-05-14] MEDS ORDERED: SODIUM CHLORIDE 0.65% NA SOLN 45 ML (OCEAN) PRN (15:09)
--- NOTE | 2019-05-14 15:09 | Hospitalist Progress Note ---
Date of Service May 14, 2019 Assessment & Plan (1) COPD exacerbation: increased work of breathing, accessory muscle use, increased sputum production and change in color of sputum at time of admission Improved but still only able to ambulate minimal distance and does not yet feel ready for discharge Received Solu Medrol 40mg IV q12 and then changed to Prednisone 40mg daily -will taper down over the next 10 days levalbuterol scheduled QID and q2 PRN -continue Rocephin 1gm IV q24 and Zithromax but decrease to 250mg PO daily x 5 days can change to PO antibiotics on discharge potential for discharge tomorrow if she improves -qualifies for 1?NC at rest, 4LNC with exertion-O2 already delivered to room today consult placed for COPD clinic referral after discharge, patient does follow with [facility] for pulmonary she is high risk for readmission (2) Hypoxia: Acut ehypoxc respiratory failure -requiring 3L NC for saturations in the low 90's on admission -goal for saturation is 88-90% qualifies for home O2 as above -add nasal saline and humidification to O2 for mild epistaxis (3) History of tobacco use: quit 1 year ago, only 3 cigarettes the past year significant smoking history with 40 pack years (4) Weakness: due to COPD exacerbation, hypoxia should improve with supportive care encourage nourishment and hydration, she is eating better Improved somewhat today (5) DVT prophylaxis: Changed heparin SQ to Lovenox at pt's request to reduce number of injections Dispo-hopeful for dc to home tomorrow Subjective Pt still feeling quite SOB with minimal exertion, but did fele better with increasing O2 amount during her 2 step walk test. She was only able to walk to the end of the humphries which is baout 30 feet. 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 Denies CP. Is coughing up sputum but less than yesterday. No diarrhea, no constipation. Does not feel ready to go home yet,. Review of Systems Review of Systems: All systems reviewed & are unremarkable except as noted in HPI & below Physical Exam Constitutional: WD/WN, vitals as above Eyes: + anicteric sclerae Neck: trachea midline, no thyromegaly Respiratory: normal respiratory effort (NC in place) Auscultation: + diminished lung sounds (throughout) and + wheezes (faint exp wheezes scattered throughout); no crackles and no rhonchi Cardiovascular: RRR, no murmur, no edema Chest (Breasts): Chest: normal inspection of chest Gastrointestinal (Abdomen): normal bowel sounds, soft, nontender, no hepatosplenomegaly Musculoskeletal: Extremities: extremities normal to inspection; no cyanosis and no clubbing Skin: no rashes, warm and dry Neurologic: moves all extremities and awake; no focal motor deficits Psychiatric: A+Ox3, euthymic affect Lymphatic: no lymphedema Results & Data Vital Signs (Past 12 Hours) Vital Signs Temp Pulse Pulse Pulse Pulse Pulse Pulse 05/14/19 11:25 73 05/14/19 10:23 72 84 84 86 83 05/14/19 07:38 36.7 C 71 05/14/19 07:07 63 Pulse Resp Resp Resp Resp Resp Resp 05/14/19 11:25 18 05/14/19 10:23 78 20 22 22 24 20 05/14/19 07:38 18 05/14/19 07:07 18 Resp BP Pulse Ox Pulse Ox Pulse Ox Pulse Ox Pulse Ox 05/14/19 11:25 96 05/14/19 10:23 22 92 87 L 91 84 L 05/14/19 07:38 121/70 94 05/14/19 07:07 97 Pulse Ox Pulse Ox 05/14/19 11:25 05/14/19 10:23 92 86 L 05/14/19 07:38 05/14/19 07:07 PG Care Time/CCT Total # of Minutes Spent Total Time Spent with Patient: Total time spent is greater than 50% in coordination of care (as documented) at patient's floor/unit and/or counseling patient: Coding Level of Care Code 87991 Subseq Hosp Care Lvl 2 Diagnoses COPD exacerbation J44.1 Hypoxia R09.02 History of tobacco use Z87.891 Weakness R53.1 DVT prophylaxis Z29.9
[2019-05-15] MEDS: LEVALBUTEROL HCL 0.63 MG/3 ML NEB NEB SCH ×3 (07:15→15:22)
[2019-05-15] MEDS: predniSONE 20 MG TAB PO SCH (07:45)
[2019-05-15] MEDS: cefTRIAXone SODIUM 1,000 MG in DEXTROSE 5% 50 ML IV SCH (07:45)
[2019-05-15] MEDS: ACETAMINOPHEN 325 MG TAB PO PRN (08:18)
[2019-05-15] MEDS ORDERED: AZITHROMYCIN 250 MG TAB PO SCH (09:00)
[2019-05-15] MEDS ORDERED: ENOXAPARIN INJ 40 MG/0.4 ML SYR SQ SCH (09:00)
--- NOTE | 2019-05-15 16:57 | Discharge Summary ---
Date of Service May 15, 2019 Admission HPI Per Admitting Provider 63 yo female with history of COPD and tobacco abuse who presents to the ED this morning due to worsening shortness of breath. She reports that her breathing has been a little worse than normal since February. She has noticed some increased dyspnea on exertion for two months. No fever or chills. Her cough has been dry for the past two months but over the past three days she has been producing yellow, thick sputum. No hemoptysis. She reports that she developed a really bad sore throat the 5 days ago, took some Amoxicillin that she had in the house from a prior prescription. Said that the throat got better but breathing got worse. 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 Finally reached the point this morning that she could not catch her breath at rest. She used her home oxygen at 2L but it was not helping so she came into the hospital. In the ED her CXR shows COPD changes but no obvious infiltrate. WBC elevated at 17k, Hb and platelets normal. BMP with normal Cr of 0.8 and electrolytes stable. She was treated with Solu medrol 125mg IV and hour long duoneb and currently feeling a lot better, but still short of breath. Oxygen saturations in the low 90's on 3L NC. Asked to admit patient. Social: former smoke, quit one year ago, used to smoke 1/2 to 1 ppd for 40 years Family history: emphysema in her father and sister, mother of ovarian cancer, has a sister who had ovarian cancer, she has 13 siblings Principal Diagnosis COPD Exacerbation, Acute respiratory failure with hypoxia Discharge Exam Constitutional WD/WN, vitals as above Eyes + anicteric sclerae Neck trachea midline, no thyromegaly Respiratory normal respiratory effort (NC in place) Auscultation: + diminished lung sounds (throughout); no crackles, no rhonchi and no wheezes Cardiovascular RRR, no murmur, no edema Chest (Breasts) Chest: normal inspection of chest Gastrointestinal (Abdomen) normal bowel sounds, soft, nontender, no hepatosplenomegaly Musculoskeletal Extremities: extremities normal to inspection; no cyanosis and no clubbing Skin no rashes, warm and dry Neurologic moves all extremities and awake; no focal motor deficits Psychiatric A+Ox3, euthymic affect Lymphatic no lymphedema Discharge Data Allergies Allergy/AdvReac Type Severity Reaction Status Date / Time aspirin Allergy Mild GI SYMPTOMS Verified 05/12/19 06:50 Consultations 05/12/19 09:03 ED Decision to Admit Stat 05/13/19 13:05 MNP COPD/Pnx Program Referral Routine Ordered Studies CXR Hospital Course (1) COPD exacerbation: Presented with increased work of breathing, accessory muscle use, incr eased sputum production and change in color of sputum at time of admission. Also with hypoxic respiratory failure. No PNA on CXR but with advanced emphysematous changes seen. Improved overall, but still requiring O2 upon discharge, some nasal congestion making it hard to breathe with NC but nasal saline helping -can use Afrin for 3-4 days as well Received Solu Medrol 40mg IV q12 and then changed to Prednisone 40mg daily -will taper down over the next 8 days -treated with bronchodilators and she will continue SPiriva and albuterol prn at home -received Rocephin 1gm IV q24 and Zithromax po--> convert to cefdinir 300mg po bid and azithro to finish out a 7 and 5 day course, respectively upon discharge consult placed for COPD clinic referral after discharge, patient does follow with [facility] for pulmonary she is high risk for readmission (2) Hypoxia: Acute hypoxc respiratory failure -requiring 3L NC for saturations in the low 90's on admission -goal for saturation is 88-90% qualifies for home O2: 1 LNC at rest, 4LNC with exertion (3) History of tobacco use: quit 1 year ago, only 3 cigarettes the past year significant smoking history with 40 pack years Congratulated on her continued cessation (4) Weakness: due to COPD exacerbation, hypoxia Has improved with supportive care, treatment of hypoxia Remain out of work for at least 1 week, perhaps longer if needs to remain on oxygen (5) DVT prophylaxis: Lovenox SQ Dispo-dc to home today Total Time Total Time Spent Total Time Spent (In Minutes): 35 min Total Time Includes: Examination of the Patient, Discharge Planning and Medication Reconciliation Discharge Plan Discharge Items Patient Disposition: Home - Home Health Services Reason For Visit: COPD EXACERBATION Discharge Diagnosis: COPD Exacerbation Condition on Discharge: Fair Activity: As commented below Activity Comment: Remain out of work until cleared to return by your PCP Lifting: Gradually increase as tolerated Bathing: No limitations Driving/Machine Use: Resume 1 day after discharge Weightbearing: Full weightbearing Non-emergency contact: Primary Care Provider and Field Cane Scale Clerk Call non-emergency contact if: you have any medication questions and your symptoms worsen Follow-up/Referrals: Fortunato Hampton PA-C [Physician Marine Habitat Resource Specialist] - 05/23/19 10:00 am (Please, follow up with Min Hampton PA-C on TuesdayMay 23 at 10:00 am. *The [facility] address, listed above, is incorrect. The correct adress of the office is [address] [facility] ([place], [place]). It is located in [address] of [facility], next to this hospital. If you need to change this appointment, call the office at [phone].) Armando Carter MD [Primary Care Provider] - 05/22/19 12:50 pm (Please, follow up with Dr. Armando Carter on TuesdayMay 22 at 12:50 pm. *If you need to change this appointment, call the office at [phone].) Diet: Regular Addtl Attending Provider Instructions: Finish out the prednisone taper and the antibiotics as prescribed. Please wear the Oxygen at 1 L at rest and 4L with exertion. Follow up with your PCP and Pulmonology as scheduled for you. Pending Studies at Discharge: No Stand-Alone Forms: [facility], Smoking Cessation Medications and DC Order Prescriptions: New azithromycin [Zithromax] 250 mg Tablet 250 mg PO QAM Qty: 2 RF: 0 sodium chloride [Saline Mist] 0.65 % Aerosol,[place] 2 spray NA Q2H PRN (Reason: dry nasal passages) Qty: 30 RF: 0 prednisone 10 mg tablet 40 mg PO DAILY Qty: 20 RF: 0 cefdinir 300 mg capsule 300 mg PO BID Qty: 8 RF: 0 Continued albuterol sulfate [ProAir HFA] 90 mcg/actuation HFA aerosol inhaler 2 puff Inhalation Q4 PRN (Reason: Shortness Of Breath Or Wheezing) Qty: 8.5 RF: 5 Spiriva Respimat 2.5 mcg/actuation mist 2.5 mcg INHALATION UD RF: 0 Discharge Orders: Discharge Order (Routine); Ordered 05/15/19 Ordered By: Maryjo Hayes Admission Data Admit Date/Time: 05/12/19 09:29 Attending Provider: Maryjo Hayes Admit Provider: Darrell Kim Primary Care Provider: Armando Carter Other Providers: Darrell Kim ; Calista Griffin Coding Level of Care Code D/C Day Management >30 mins Diagnoses COPD exacerbation J44.1 Hypoxia R09.02 History of tobacco use Z87.891 Weakness R53.1 DVT prophylaxis Z29.9
== END 2019-05-15 17:36 | disposition home health service (06) | DRG 190 ==
LOC: ED 06:41 → 2N 09:29 → SUATTDRO 09:29 → 2N 09:50 → 4W 05-13 20:27

== ENCOUNTER 2020-08-27 19:57 | Inpatient (IN) ==
--- NOTE | 2020-08-27 20:14 | Emergency Department Note ---
Impression & Plan COPD exacerbation, Acute dyspnea ED Provider Note NAME: AVIVA MIMS AGE: 64 SEX: F : 1955 ARRIVES VIA: Walk-In INFORMANT: Patient, ED PROVIDER(S): Neto Kimball MD Chief Complaint: Shortness of breath HPI: Patient does present for increasing shortness of breath and associated palpitations. Patient states that her palpitations been ongoing for approximately a week in duration. The patient does have chronic shortness of breath and does use chronic at home oxygen but she has been using it increas ingly. Patient states that doing work around the house is causing her additional fatigue and shortness of breath. The patient denies any chest pain but states it is occasionally heavy. The patient does have some chronic right- sided lower extremity edema from meniscal tear. The patient denies any prior history of DVT or PE. Patient is a former smoker but smoking 1 year ago. The patient does follow with Min Hampton and Tim Carter as pulmonology and PCP respectively. Patient denies any fevers or chills. Patient is not vaccinated for Covid. The patient denies any nausea vomiting or abdominal pain. Patient denies any positional dyspnea or PND. Patient has been increasing the inhaler use. The patient was prescribed azithromycin and prednisone 3 days ago this is not improved her symptoms. The patient does drink multiple caffeinated beverages including Pepsi and ice tea throughout the day. The patient denies any tobacco alcohol or drug use. The patient denies any other supplements or stimulants. Patient states that she has had an increase in her oxygen use at home. ROS: See HPI for pertinent positives and negatives. A total of 10 systems were reviewed and otherwise negative. Past medical history: See below Surgical history: See below Social history: See below Physical Exam: GENERAL: Wearing glasses and a mask. Nasal cannula in place. EYE EXAM: Normal conjunctiva. PERRL, no anisocoria and EOM's grossly intact w/o pain. NECK: Supple, no nuchal rigidity, no adenopathy, non-tender. No signs of meningismus. LUNGS: Decreased breath sounds throughout. HEART: NSR, no MRG. ABDOMEN: Abdomen soft, non-tender, normo-active bowel sounds, no masses, no rebound or guarding. BACK: No CVA TTP. SKIN: No rashes and no bruising. UPPER EXTREMITIES: Upper extremities are grossly normal. LOWER EXTREMITIES: Grossly normal, slight right greater than left trace pretibia l edema. Negative Homans' sign bilaterally. No calf pain. NEURO EXAM: A&O x3, cranial nerves II-XII grossly intact, normal speech, moves all 4 extremities on command w/o issue. Differential diagnoses: Reactive airway disease, pneumonia, pneumothorax, COPD, CHF, infections, cardiac ischemia, pulmonary embolism, musculoskeletal, gastrointestinal, as well as other pathologies. Course: Patient was seen and evaluated the bedside. Full history physical exam was performed. EKG: Indication: Shortness of breath Normal sinus rhythm, rate of 74, normal intervals, normal axis, T wave inversion in aVL not in contiguous leads. No obvious ST changes. Imaging Studies: 1 view chest x-ray Hyperinflation consistent with COPD, no obvious consolidation, effusion or pneumothorax Cardiac monitoring: An order was placed for continuous cardiac monitoring. The monitor shows a rate of 84 with sinus rhythm. MDM: Patient does present with concern for shortness of breath and chest heaviness. Blood work was obtained and the patient was treated symptomatically. Patient has a normal white count H&H and platelet count. The patient's kidney function is unremarkable. VBG is unremarkable and is not retaining CO2. Calcium slightly low. The patient did receive IV fluids. Was called by nursing as the patient was having short shallow breathing. This was after starting magnesium. I did ask the nurse to stop this the patient was ordered half milligram of Ativan and an hour-long DuoNeb treatment. Upon subsequent reassessment the patient felt much improved. Given the patient's worsening exertional dyspnea along with the acute dyspneic episode that she had in the emergency department believe the patient would benefit from inpatient treatment at this time. I did speak with the on-call hospitalist Dr. Watkins and the patient was admitted to the medicine service Past Med/Surg History Medical History (Updated 08/28/20 @ 01:08 by Neto Kimball MD) Asthma Chronic obstructive pulmonary disease with hypoxia 3L NC PRN Pulm - [facility] COPD exacerbation Family history of colon cancer Sleep apnea, obstructive Yeast infection Surgical History H/O partial thyroidectomy 1990s d/t hemorrhaging?--unknown cause, no meds History of broken collarbone sx to repair History of carpal tunnel surgery of right wrist History of partial hysterectomy History of tooth extraction all teeth Family History Mother , from ovarian cancer Cancer Ovarian Sister Cancer Ovarian Father COPD (chronic obstructive pulmonary disease) Other No family history of adverse response to anesthesia Social History Smoking Status: Former smoker Age Started Using Tobacco: 17; Age Quit Using Tobacco: 1; packs per day: 1; Years Smoked: 43; Number of Years Since Quit: 1; Second Hand Exposure: Yes (parents smoked); Hx Alcohol Use: No Hx Substance Use: No Preferred Language: Northern Irish 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 Ability: Effective Career Agent 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 Beliefs That Will Affect Care: None marital status: Current Living Situation: Family Current Living Situation Comment: lives with daughter Other Information That Helps Us Care for You: No Feels Safe at Home: Yes Safety Concerns: Feels Safe At This Time Assistive Devices: Denture - Upper, Denture - Lower, Glasses and Oxygen - at Night Assistive Devices Comment: oxygen as needed Allergies Allergies Allergy/AdvReac Type Severity Reaction Status Date / Time aspirin Allergy Mild GI SYMPTOMS Verified 08/27/20 22:05 Home Meds Previous Rx's Medication Instructions Recorded sodium chloride [Saline Mist] 2 spray NA Q2H PRN #30 ml 05/15/19 CPAP Machine #1 ea 12/06/19 ProAir HFA 90 mcg/actuation 2 puff INHALATION Q4 PRN #8.5 gm NS 02/29/20 aerosol inhaler tiotropium bromide 2.5 2 puff INHALATION QAM #4 g 04/24/20 mcg/actuation mist for inhalation sodium chloride 7 % for 4 ml INHALATION BID #240 ml 06/11/20 nebulization ipratropium 0.5 mg-albuterol 3 mg 3 ml INH QID PRN #360 ml 07/24/20 (2.5 mg base)/3 mL nebulization soln levofloxacin 500 mg tablet 500 mg PO DAILY #10 tab 08/22/20 prednisone 10 mg tablet See Rx Instructions PO DAILY #36 08/22/20 tab Results & Data (ED) Vital Signs Vital Signs - 24 hr 08/27/20 19:59 08/27/20 20:07 08/27/20 20:30 Temperature 36.3 C L Temperature Source Temporal Artery Scan Pulse Rate 84 74 Pulse Rate [Finger] Pulse Rate from SpO2 Sensor 73 Pulse Rhythm Regular Pulse Strength Normal Respiratory Rate 22 19 Respiratory Effort / Characteristics Non-Labored Spontaneous Respiratory Depth Normal Blood Pressure 174/88 H 151/89 H Blood Pressure Mean 116 109 Pulse Oximetry 95 97 Oxygen Delivery Method Nasal Cannula Nasal Cannula Oxygen Flow Rate 3 3 Sepsis Recent Fever Within 48 Hours No Sepsis New/Unexplained Change in Mental Status N/A Sepsis Action Taken by Nursing No Action Required 08/27/20 20:44 08/27/20 21:00 08/27/20 21:01 Temperature Temperature Source Pulse Rate 77 73 67 Pulse Rate [Finger] Pulse Rate from SpO2 Sensor 76 72 67 Pulse Rhythm Pulse Strength Respiratory Rate 18 21 23 Respiratory Effort / Characteristics Respiratory Depth Blood Pressure 158/88 H Blood Pressure Mean 111 Pulse Oximetry 97 97 97 Oxygen Delivery Method Oxygen Flow Rate Sepsis Recent Fever Within 48 Hours Sepsis New/Unexplained Change in Mental Status Sepsis Action Taken by Nursing 08/27/20 21:30 08/27/20 21:31 08/27/20 22:00 Temperature Temperature Source Pulse Rate 73 71 93 H Pulse Rate [Finger] Pulse Rate from SpO2 Sensor 73 72 92 H Pulse Rhythm Pulse Strength Respiratory Rate 15 24 32 H Respiratory Effort / Characteristics Respiratory Depth Blood Pressure 152/90 H 183/133 H Blood Pressure Mean 110 149 Pulse Oximetry 98 97 95 Oxygen Delivery Method Oxygen Flow Rate Sepsis Recent Fever Within 48 Hours Sepsis New/Unexplained Change in Mental Status Sepsis Action Taken by Nursing 08/27/20 22:01 08/27/20 22:03 Temperature Temperature Source Pulse Rate 90 Pulse Rate [Finger] 87 Pulse Rate from SpO2 Sensor 90 Pulse Rhythm Pulse Strength Respiratory Rate 31 H 30 H Respiratory Effort / Characteristics Spontaneous Labored Short of Breath Respiratory Depth Blood Pressure Blood Pressure Mean Pulse Oximetry 95 96 Oxygen Delivery Method Nasal Cannula Oxygen Flow Rate 3 Sepsis Recent Fever Within 48 Hours Sepsis New/Unexplained Change in Mental Status Sepsis Action Taken by Detention Medications Current Medication List: was personally reviewed by me Laboratory Data Attestation: I reviewed the patient's lab results. Result diagrams: 08/27/20 Unknown 08/27/20 Unknown Lab Results 08/27/20 08/27/20 08/27/20 Range/Units 20:59 21:23 21:23 PT (9.0-12.0) Seconds INR (0.9-1.1) APTT (21.0-31.0) Seconds PTT Ratio VBG pH 7.41 (7.36-7.41) VBG pCO2 46 (38-50) mmHg VBG pO2 87 mmHg VBG HCO3 29 mmol/L VBG O2 Saturation 96.7 % VBG Base Excess 3.2 mEq/L Barometric Pressure 738.0 mm/Hg COVID-19 Eval Order Covid19 at [facility] SARS-CoV-2 (PCR) NEGATIVE (Negative) 08/27/20 Range/Units 21:36 PT 10.3 (9.0-12.0) Seconds INR 1.0 (0.9-1.1) APTT 26.2 (21.0-31.0) Seconds PTT Ratio 1.0 VBG pH (7.36-7.41) VBG pCO2 (38-50) mmHg VBG pO2 mmHg VBG HCO3 mmol/L VBG O2 Saturation % VBG Base Excess mEq/L Barometric Pressure mm/Hg COVID-19 Eval Order SARS-CoV-2 (PCR) (Negative) Administered Medications Discontinued Medications Albuterol (Albut/Ipratrop 3mg/0.5mg Neb 3 Ml Vial) 12 ml NEB ONE ONE Stop: 08/27/20 21:51 Last Admin: 08/27/20 22:01 Dose: 12 ml Documented by: [id number] Magnesium Sulfate/Dextrose (Magnesium Sulfate / D5w) 1 gm in 100 mls @ 100 mls/hr IV Q1H QIAN Stop: 08/27/20 22:44 Last Admin: 08/27/20 22:39 Dose: Not Given Documented by: [id number] Infusion: 08/27/20 21:51 Dose: 0 mls/hr Documented by: [id number] Admin: 08/27/20 21:07 Dose: 100 mls/hr Documented by: [id number] Sodium Chloride (Nss 1000ml) 1,000 mls @ 999 mls/hr IV .Q1H1M QIAN Stop: 08/27/20 21:45 Last Infusion: 08/27/20 22:39 Dose: 0 mls/hr Documented by: [id number] Admin: 08/27/20 21:07 Dose: 999 mls/hr Documented by: [id number] Lorazepam (Ativan) 0.5 mg in 1 mls @ 1 mls/min IV NOW STA Stop: 08/27/20 21:51 Last Admin: 08/27/20 21:57 Dose: 1 mls/min Documented by: [id number] Methylprednisolone (Methylprednisolone 125 Mg/2 Ml Vial) 125 mg IV NOW STA Stop: 08/27/20 20:37 Last Admin: 08/27/20 21:07 Dose: 125 mg Documented by: [id number] Discharge Plan Visit Data Chief Complaint: Arrhythmia/Palpitations Stated Complaint: HEART PALPITATIONS ED Provider: Neto Kimball Discharge Problem: COPD exacerbation, Acute dyspnea Patient Disposition: Admitted As Inpatient Discharge Instructions Interventions: ED Discharge Assessment Last Done: 08/28/20 00:08
[2020-08-27] MEDS ORDERED: methylPREDNISolone 125 MG/2 ML VIAL IV STA (20:36)
[2020-08-27] MEDS ORDERED: SODIUM CHLORIDE 0.9% 1000ML 1,000 ML IV SCH (20:45)
[2020-08-27 20:50] LABS: Basophils # (auto) 0.01 K/uL (0-0.2); Basophils % (auto) 0.1 %; Hemoglobin 13.4 g/dL (12.0-16.0); Immature Granulocytes # (auto) 0.01 K/uL (0.00-0.02); Immature Granulocytes % (auto) 0.1 %; Lymphocytes % (auto) 10.8 %; Mean Corpuscular Hemoglobin 30.9 pg (25-34); Mean Corpuscular Hgb Conc 34.4 g/dL (32-36); Mean Corpuscular Volume 90.1 fL (80-100); Mean Platelet Volume 9.4 fL (7.4-10.4); Monocytes # (auto) 0.44 K/uL (0.11-0.59); Monocytes % (auto) 5.9 %; Neutrophils # (auto) 6.16 K/uL (1.4-6.5); Neutrophils % (auto) 83.1 %; Platelet Count 263 K/uL (130-400); RDW Coefficient of Variation 12.5 % (11.5-14.5); RDW Standard Deviation 41.2 fL (36.4-46.3); Red Blood Count 4.33 M/uL (4.2-5.4); White Blood Count 7.42 K/uL (4.8-10.8)
[2020-08-27] MEDS: MAGNESIUM SULFATE / D5W 1 GM/100 ML BAG IV SCH ×2 (21:07→22:39)
[2020-08-27 21:16] LABS: Alanine Aminotransferase 36 U/L (12-78); Albumin Level 3.4 gm/dl (3.4-5.0); Aspartate Aminotransferase 21 U/L (15-37); Blood Urea Nitrogen 19 mg/dl (7-18); Calcium 8.4 mg/dl (8.5-10.1); Carbon Dioxide 28 mmol/L (21-32); Chloride 108 mmol/L (98-107); Creatinine Clr Calc Pharmacy 63.9 ml/min; Est GFR (Non-African American) 78.6 ml/min; Glucose 114 mg/dl (70-99); Potassium 4.1 mmol/L (3.5-5.1); Sodium 140 mmol/L (136-145)
[2020-08-27 21:19] LABS: Base Excess VBG 3.2 mEq/L; Oxygen Saturation VBG 96.7 %; pH VBG 7.41 (7.36-7.41)
[2020-08-27 21:20] LABS: Albumin Globulin Ratio 1.2 (0.9-2); Alkaline Phosphatase 78 U/L (45-117); Bilirubin,Total 0.3 mg/dl (0.2-1); Globulin 2.9 gm/dl (2.5-4.0); NT Pro B Type Natriuretic Pept 148 pg/ml (0-900); Total Protein 6.3 gm/dl (6.4-8.2); Troponin I < 0.015 ng/ml (0-0.045)
[2020-08-27] MEDS ORDERED: ALBUT/IPRATROP 3MG/0.5MG NEB 3 ML VIAL NEB ONE (21:50)
[2020-08-27] MEDS ORDERED: LORazepam 0.5 MG/1 ML VIAL IV STA (21:50)
[2020-08-27 21:57] LABS: Partial Thromboplastin Time 26.2 Seconds (21.0-31.0); Prothrombin Time 10.3 Seconds (9.0-12.0)
--- NOTE | 2020-08-27 23:15 | History & Physical Report ---
Date of Service August 27, 2020 Assessment & Plan (1) COPD exacerbation: 64-year-old female with a history of COPD chronically on oxygen, ALHAJI, history of tobacco use admitted for COPD exacerbation. COPD exacerbation Increased oxygen requirement with exertion, tachypneic, completed a 5-day course of levofloxacin and oral prednisone at home without improvement Normal white blood cell count, afebrile, chest x-ray unimpressive for lobar infiltrates, pulmonary edema, atypical pneumonia. proBNP 148, Low suspicion for pneumonia, PE, heart failure very low. Clinical improvement with 1 hour DuoNeb and 1 bag of mag and IV methyl Pred DuoNebs scheduled every 4, as needed 4 times daily for shortness of breath. 60 mg IV methylprednisone every 6 scheduled, azithromycin 500x1, 250 x 4 days. Flutter valve and incentive spirometry for pulmonary support O2 goal 88 to 92% CBC, BMP in a.m. COPD with hypoxia Continue tiotropium inhaler daily Added fluticasone/Vilanterol inhaler Patient quit smoking proximately a year ago but has monthly relapses, smoking cessation education would be beneficial VBG normal, no indication of hypercarbic respiratory failure Has not received the vaccine, Covid and flu negative ALHAJI CPAP nightly DVT prophylaxis: Ambulation FEN/GI: Normal saline 100 mL/h: Heart healthy diet CODE STATUS: Full code Dispo: PCU (2) History of tobacco use: (3) Chronic obstructive pulmonary disease with hypoxia: (4) Sleep apnea, obstructive: History of Present Illness 64-year-old female with a past medical history of COPD on 3 L nasal cannula oxygen continuously, ALHAJI, extensive history of tobacco use who presents to the emergency department for 1 week of increasing shortness of breath. She states approximately a week ago she started feeling more fatigued and short of breath when up working and walking around her house. She states she increased her oxygen level from 3-3-1/2 at that time. She states that mostly she felt short of breath when she was either doing chores or walking around but occasionally would feel short of breath when sitting down. She states when she feels short of breath she also sometimes has an accompanying "fluttering" sensation in her chest. She denies any presence of chest pressure or chest heaviness. She states that she has not seen a physician in the past week for this problem but had received a prescription for levofloxacin once daily for 5 days along with a 5-day prednisone taper. She states that taking these medications did not help her shortness of breath which led to her coming to the emergency department today. She denies any changes to her usual cough, changes in quantity or frequency of sputum production. ER course significant for 1 hour DuoNeb treatment, 125 mg IV methylprednisone, 1 bag of IV magnesium. Patient requested that the magnesium be stopped due to increased energy, anxiety, and tremors that were starting. At the time of interview she states that she did feel less out of breath than when she came to the emergency department. Primary Care Provider: Armando Carter MD Allergies Allergy/AdvReac Type Severity Reaction Status Date / Time aspirin Allergy Mild GI SYMPTOMS Verified 08/27/20 22:05 Home Medications Medication Instructions Recorded Confirmed Type sodium chloride [Saline Mist] 2 spray NA Q2H PRN #30 ml 05/15/19 08/27/20 Rx CPAP Machine #1 ea 12/06/19 08/27/20 Rx ProAir HFA 90 mcg/actuation 2 puff INHALATION Q4 PRN #8.5 gm NS 02/29/20 08/27/20 Rx aerosol inhaler tiotropium bromide 2.5 2 puff INHALATION QAM #4 g 04/24/20 08/27/20 Rx mcg/actuation mist for inhalation sodium chloride 7 % for 4 ml INHALATION BID #240 ml 06/11/20 08/27/20 Rx nebulization azithromycin 250 mg PO QAM #3 tab 08/29/20 Rx famotidine 40 mg PO DAILY 14 Days #14 tab 08/29/20 Rx fluticasone furoate-vilanterol 1 inh INHALATION DAILY #28 ea 08/29/20 Rx [Breo Ellipta] ipratropium 0.5 mg-albuterol 3 mg 3 ml INH QID PRN #360 ml 08/29/20 Rx (2.5 mg base)/3 mL nebulization soln prednisone See Taper PO DAILY 11 Days #21 tab 08/29/20 Rx Past Med/Surg History Medical History (Updated 08/29/20 @ 13:19 by Aureliano New MD) Asthma Chronic obstructive pulmonary disease with hypoxia 3L NC PRN Pulm - Min [place] COPD exacerbation Family history of colon cancer Sleep apnea, obstructive Yeast infection Surgical History H/O partial thyroidectomy 1990s d/t hemorrhaging?--unknown cause, no meds History of broken collarbone sx to repair History of carpal tunnel surgery of right wrist History of partial hysterectomy History of tooth extraction all teeth Family History Mother , from ovarian cancer Cancer Ovarian Sister Cancer Ovarian Father COPD (chronic obstructive pulmonary disease) Other No family history of adverse response to anesthesia Social History Smoking Status: Former smoker Age Started Using Tobacco: 17; Age Quit Using Tobacco: 1; packs per day: 1; Years Smoked: 43; Number of Years Since Quit: 1; Second Hand Exposure: Yes (parents smoked); Hx Alcohol Use: No Hx Substance Use: No Preferred Language: Sinhala 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 Ability: Effective 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 Beliefs That Will Affect Care: None marital status: Current Living Situation: Family Current Living Situation Comment: lives with daughter Feels Safe at Home: Yes Assistive Devices: Glasses and Oxygen - Continuous Review of Systems Constitutional: no fever, no chills, no sweats and no fatigue Eyes: no blind spots and no discharge Ear, Nose, Mouth, Throat: no hearing loss and no nasal congestion Respiratory: + cough and + dyspnea Cardiovascular: + dyspnea on exertion; no chest pain and no edema Gastrointestinal: no abdominal pain, no nausea, no vomiting, no constipation, no diarrhea/loose stools and no blood in stools Genitourinary: no dysuria Musculoskeletal: no joint pain and no myalgia Neurologic: no tingling, no numbness and no headache(s) Endocrine: no fatigue Physical Exam Physical Exam: Constitutional: thin female sitting in NAD Eyes: EOMI, pupils equal and reactive bilaterally, no scleral icterus Cardiac: RRR, no murmurs, gallops or rubs. Normal S1, S2 Pulm: poor inspiratory effort, tachypneic to 25 bpm, prominent end expiratory wheezing with larger inhales, no sternal retractions or extra work of breathing on continuing duoneb treatment Abd: soft, nontender, nondistended, normal bowel sounds, no rebound or guarding Extremities: 2+ peripheral pulses, no edema Neuro: no focal deficits, moving all 4 limbs, A&Ox3 Results & Data Results & Data ([facility]) Vital Signs (Past 12 Hours) Vital Signs Temp Pulse Pulse Resp BP Pulse Ox 08/27/20 22:31 85 22 98 08/27/20 22:30 82 25 H 141/94 H 98 08/27/20 22:03 87 30 H 96 08/27/20 22:01 90 31 H 95 08/27/20 22:00 93 H 32 H 183/133 H 95 08/27/20 21:31 71 24 97 08/27/20 21:30 73 15 152/90 H 98 08/27/20 21:01 67 23 97 08/27/20 21:00 73 21 158/88 H 97 08/27/20 20:44 77 18 97 08/27/20 20:30 74 19 151/89 H 97 08/27/20 19:59 36.3 C L 84 22 174/88 H 95 Laboratory Results WBC 7.42 K/uL (4.8-10.8) 08/27/20 Unknown RBC 4.33 M/uL (4.2-5.4) 08/27/20 Unknown Hgb 13.4 g/dL (12.0-16.0) 08/27/20 Unknown Hct 39.0 % (37-47) 08/27/20 Unknown MCV 90.1 fL (80-100) 08/27/20 Unknown MCH 30.9 pg (25-34) 08/27/20 Unknown MCHC 34.4 g/dL (32-36) 08/27/20 Unknown RDW Std Deviation 41.2 fL (36.4-46.3) 08/27/20 Unknown RDW Coeff of Audrey 12.5 % (11.5-14.5) 08/27/20 Unknown Plt Count 263 K/uL (130-400) 08/27/20 Unknown MPV 9.4 fL (7.4-10.4) 08/27/20 Unknown Immature Gran % (Auto) 0.1 % 08/27/20 Unknown Neut % (Auto) 83.1 % 08/27/20 Unknown Lymph % (Auto) 10.8 % 08/27/20 Unknown [place]tinger % (Auto) 5.9 % 08/27/20 Unknown Eos % (Auto) 0.0 % 08/27/20 Unknown Baso % (Auto) 0.1 % 08/27/20 Unknown Neut # (Auto) 6.16 K/uL (1.4-6.5) 08/27/20 Unknown Lymph # (Auto) 0.80 K/uL (1.2-3.4) L 08/27/20 Unknown [place]tinger # (Auto) 0.44 K/uL (0.11-0.59) 08/27/20 Unknown Eos # (Auto) 0.00 K/uL (0-0.5) 08/27/20 Unknown Baso # (Auto) 0.01 K/uL (0-0.2) 08/27/20 Unknown Immature Gran # (Auto) 0.01 K/uL (0.00-0.02) 08/27/20 Unknown PT Cancelled 08/27/20 Unknown INR Cancelled 08/27/20 Unknown APTT Cancelled 08/27/20 Unknown PTT Ratio Cancelled 08/27/20 Unknown VBG pH 7.41 (7.36-7.41) 08/27/20 20:59 VBG pCO2 46 mmHg (38-50) 08/27/20 20:59 VBG pO2 87 mmHg 08/27/20 20:59 VBG HCO3 29 mmol/L 08/27/20 20:59 VBG O2 Saturation 96.7 % 08/27/20 20:59 VBG Base Excess 3.2 mEq/L 08/27/20 20:59 Barometric Pressure 738.0 mm/Hg 08/27/20 20:59 Sodium 140 mmol/L (136-145) 08/27/20 Unknown Potassium 4.1 mmol/L (3.5-5.1) 08/27/20 Unknown Chloride 108 mmol/L (98-107) H 08/27/20 Unknown Carbon Dioxide 28 mmol/L (21-32) 08/27/20 Unknown Anion Gap 4.0 (3-11) 08/27/20 Unknown BUN 19 mg/dl (7-18) H 08/27/20 Unknown Creatinine 0.79 mg/dl (0.6-1.2) 08/27/20 Unknown Est Cr Clr Drug Dosing 63.9 ml/min 08/27/20 Unknown Est GFR ( Amer) 91.0 ml/min 08/27/20 Unknown Est GFR (Non-Af Amer) 78.6 ml/min 08/27/20 Unknown BUN/Creatinine Ratio 24.0 (10-20) H 08/27/20 Unknown Glucose 114 mg/dl (70-99) H 08/27/20 Unknown Calcium 8.4 mg/dl (8.5-10.1) L 08/27/20 Unknown Total Bilirubin 0.3 mg/dl (0.2-1) 08/27/20 Unknown AST 21 U/L (15-37) 08/27/20 Unknown ALT 36 U/L (12-78) 08/27/20 Unknown Alkaline Phosphatase 78 U/L (45-117) 08/27/20 Unknown Troponin I < 0.015 ng/ml (0-0.045) 08/27/20 Unknown NT-Pro-B Natriuret Pep 148 pg/ml (0-900) 08/27/20 Unknown Total Protein 6.3 gm/dl (6.4-8.2) L 08/27/20 Unknown Albumin 3.4 gm/dl (3.4-5.0) 08/27/20 Unknown Globulin 2.9 gm/dl (2.5-4.0) 08/27/20 Unknown Albumin/Globulin Ratio 1.2 (0.9-2) 08/27/20 Unknown COVID-19 Eval Order Covid19 at [facility] 08/27/20 21:23 Supervising Physician Co-Signing Physician Notes Attending addendum: I have physically seen this patient, have supervised the medical residents activities, and agree with the H&P unless as otherwise noted. Assessment and Plan: COPD exacerbation with hypoxia- Titrate nasal cannula oxygen for pulse ox around 92% Duonebs every 4 hours while awake and every 2 hours when necessary. Methylprednisolone 60 mg IV every 6 hours, tapering as symptoms improve Tobacco cessation counseling Inhalers as noted Obstructive sleep apnea- CPAP at bedtime Remaining orders and notations as noted Resident Activity Tracking Resident Involvement: Resident Care Provided Care Provided: Adult Hospital Medicine
[2020-08-28] MEDS ORDERED: NITROGLYCERIN SL 0.4 MG/TAB TAB SL PRN (00:41)
[2020-08-28] MEDS ORDERED: ONDANSETRON INJ 2 MG/ML 2 ML VIAL IV PRN (00:41)
[2020-08-28] MEDS ORDERED: POLYETHYLENE (MIRALAX) 17 GM PACK PO PRN (00:41)
[2020-08-28] MEDS ORDERED: ACETAMINOPHEN 325 MG TAB PO PRN (00:41)
[2020-08-28] MEDS ORDERED: ALBUT/IPRATROP 3MG/0.5MG NEB 3 ML VIAL INH PRN (00:41)
[2020-08-28] MEDS ORDERED: SODIUM CHLORIDE 0.65% NA SOLN 45 ML (OCEAN) PRN (00:41)
[2020-08-28] MEDS ORDERED: AZITHROMYCIN 250 MG TAB PO ONE (01:00)
[2020-08-28] MEDS: SODIUM CHLORIDE 0.9% 1000ML 1,000 ML IV SCH ×2 (01:10→11:21)
[2020-08-28] MEDS: ALBUT/IPRATROP 3MG/0.5MG NEB 3 ML VIAL NEB SCH ×6 (02:32→19:34)
[2020-08-28] MEDS: methylPREDNISolone 40 MG in SYRINGE 0 ML IV SCH ×4 (03:40→21:03)
[2020-08-28 06:32] LABS: Hematocrit (blood only) 38.1 % (37-47); Hemoglobin 12.9 g/dL (12.0-16.0); Immature Granulocytes # (auto) 0.02 K/uL (0.00-0.02); Immature Granulocytes % (auto) 0.4 %; Lymphocytes # (auto) 0.41 K/uL (1.2-3.4); Lymphocytes % (auto) 8.1 %; Mean Corpuscular Hemoglobin 31.2 pg (25-34); Mean Corpuscular Hgb Conc 33.9 g/dL (32-36); Mean Platelet Volume 9.4 fL (7.4-10.4); Neutrophils # (auto) 4.52 K/uL (1.4-6.5); Neutrophils % (auto) 89.5 %; Platelet Count 258 K/uL (130-400); RDW Coefficient of Variation 12.6 % (11.5-14.5); RDW Standard Deviation 42.7 fL (36.4-46.3); Red Blood Count 4.14 M/uL (4.2-5.4); White Blood Count 5.05 K/uL (4.8-10.8)
[2020-08-28 07:00] LABS: BUN Creatinine Ratio 21.5 (10-20); Calcium 7.8 mg/dl (8.5-10.1); Creatinine Clr Calc Pharmacy 64.6 ml/min; Est GFR (African American) 96.9 ml/min; Est GFR (Non-African American) 83.6 ml/min; Potassium 4.2 mmol/L (3.5-5.1)
--- NOTE | 2020-08-28 07:19 | XRay Report ---
XR chest 1V portable HISTORY: 64 years-old Female Dyspnea acute shortness of breath COMPARISON: Chest radiograph 12/06/2019, chest CT 03/18/2020 TECHNIQUE: Portable AP view of the chest FINDINGS: Cardiomediastinal and hilar silhouettes are within normal limits. No pneumothorax, pleural effusion, airspace consolidation or overt pulmonary edema. Emphysema with chronic interstitial coarsening. Dege nerative changes of the shoulders and spine. IMPRESSION: Emphysema without acute process. ACT 112: Negative or not required by law. The above report was generated using voice recognition software. It may contain grammatical, syntax o r spelling errors. Electronically signed by: Landon Lechuga M.D. 08/28/2020 7:18 AM
[2020-08-28] MEDS: UMECLIDINIUM BROMIDE 62.5MCG/BLISTER 7 PUFFS/INHALER INH SCH (08:19)
[2020-08-28] MEDS: FLUTICASONE/VILANTEROL 100/25MCG 14 PUFFS/INHALER INH SCH (08:19)
[2020-08-28 08:37] LABS: Appearance Urine Clear (Clear); Bacteria Urine Automated Negative (Negative); Bilirubin Urine Negative (Negative); Blood Urine Negative (Negative); Color Urine Yellow; Epithelial Cell Urine Auto >30 /lpf (0-5); Glucose Urine UA 2+ (Negative); Ketones Urine Negative (Negative); Leukocyte Esterase Urine 1+ (Negative); Nitrite Urine Negative (Negative); Protein Urine Negative (Negative); RBC Urine Automated 0-4 /hpf (0-4); Specific Gravity Urine 1.017 (1.000-1.030); Urobilinogen Urine Negative (Negative)
[2020-08-28] MEDS ORDERED: ALUMINUM/MAGNESIUM SUSP 30 ML UDC PO PRN (09:35)
[2020-08-28] MEDS ORDERED: FAMOTIDINE 20 MG TAB PO STA (09:40)
--- NOTE | 2020-08-28 10:24 | XRay Report ---
XR chest 2V PA/lateral CLINICAL HISTORY: COPD EXACERBATION COMPARISON STUDY: Chest CT March 18, 2020. Chest radiograph August 27, 2020. FINDINGS: Lung hyperinflation is noted. Emphysema is present. There is no pneumothorax or pleural eff usion. Cardiac size is normal. Mediastinal contours are normal. IMPRESSION: No acute cardiopulmonary findings. Emphysema. ACT 112: Negative or not required by law. Electronically signed by: Celestine Armendariz M.D. 08/28/2020 10:22 AM
--- NOTE | 2020-08-28 16:55 | Hospitalist Progress Note ---
Date of Service August 28, 2020 Assessment & Plan (1) Acute respiratory failure with hypoxia: Secondary to COPD exacerbation without outpatient prednisone O2 goal 88 to 92% (2) COPD exacerbation: Increased oxygen requirement with exertion, tachypneic, completed a 5-day course of levofloxacin and oral prednisone at home without improvement. Will need tapering dose on discharge. Normal white blood cell count, afebrile, chest x-ray unimpressive for lobar infiltrates, pulmonary edema, atypical pneumonia. proBNP 148, Low suspicion for pneumonia, PE, heart failure very low. Continued clinical improvement. DuoNebs scheduled every 4, as needed 4 times daily for shortness of breath. continue 60 mg IV methylprednisone every 6 scheduled, azithromycin 500x1, 250 x 4 days. Flutter valve and incentive spirometry for pulmonary support Continue tiotropium inhaler daily Added fluticasone/Vilanterol inhaler Patient quit smoking proximately a year ago but has monthly relapses, smoking cessation education would be beneficial VBG normal, no indication of hypercarbic respiratory failure Has not received the vaccine, Covid and flu negative (3) Sleep apnea, obstructive: CPAP nightly (4) History of tobacco use: (5) Paroxysmal atrial tachycardia: 1 minute episode. No EKG taken at this time. We will continue to monitor on telemetry for further recurrences. Set up with outpatient cardiac/vascular sonographer to assess for more prolonged episodes of possible atrial flutter. Admission and Anticipated Discharge Date Admission Date: August 27, 2020 Subjective Patient feels improved since admission. Still having some productive cough and shortness of breath. She was not on oxygen up until 1 week ago therefore goal be to go back on to room air prior to discharge at least at rest. No chest pain. Review of Systems Review of Systems: All systems reviewed & are unremarkable except as noted in HPI & below Physical Exam Constitutional: WD/WN, vitals as above Eyes: + anicteric sclerae; normal pupil size Respiratory: normal respiratory effort; no respiratory distress Auscultation: + wheezes (Expiratory posteriorly); no diminished lung sounds Cardiovascular: RRR, no murmur, no edema Gastrointestinal (Abdomen): normal bowel sounds, soft, nontender, no hepatosplenomegaly Musculoskeletal: no cyanosis or clubbing, extremities motor strength 5/5 Skin: no rashes, warm and dry Neurologic: moves all extremities and awake; not confused Psychiatric: A+Ox3, euthymic affect Results & Data Results & Data ([facility]) Vital Signs (Past 12 Hours) Vital Signs Temp Pulse Resp BP Pulse Ox 08/28/20 15:38 77 16 96 08/28/20 15:28 37.1 C 85 22 137/61 95 08/28/20 11:27 92 H 14 95 08/28/20 11:20 36.5 C 86 20 126/70 95 08/28/20 07:53 36.6 C 85 20 129/66 96 08/28/20 07:21 86 16 98 PG Care Time/CCT Total # of Minutes Spent Total Time Spent with Patient: Total time spent is greater than 50% in coordination of care (as documented) at patient's floor/unit and/or counseling patient: Coding Level of Care Code 10368 Subseq Hosp Care Lvl 2 Diagnoses Acute respiratory failure with hypoxia J96.01 COPD exacerbation J44.1 Sleep apnea, obstructive G47.33 History of tobacco use Z87.891 Paroxysmal atrial tachycardia I47.1
[2020-08-28] MEDS: SODIUM CHLOR 7% 4 ML NEB INH SCH (19:34)
[2020-08-28] MEDS ORDERED: MONTELUKAST SODIUM 10 MG TABLET PO SCH (21:00)
--- NOTE | 2020-08-28 22:38 | Electrocardiogram Report ---
Test Reason : Blood Pressure : / mmHG Vent. Rate : 074 BPM Atrial Rate : 074 BPM P-R Int : 146 ms QRS Dur : 078 ms QT Int : 378 ms P-R-T Axes : 084 075 073 degrees QTc Int : 419 ms Normal sinus rhythm Normal ECG When compared with ECG of 12-MAY-2019 17:27, Premature ventricular complexes are no longer Present Vent. rate has decreased BY 60 BPM Anterolateral leads Confirmed by Marcello Rodríguez ([id number]) on 08/28/2020 10:37:45 PM Referred By: REFERRED SELF Confirmed By:Marcello Rodríguez
[2020-08-29] MEDS: ALBUT/IPRATROP 3MG/0.5MG NEB 3 ML VIAL NEB SCH ×5 (00:03→15:16)
[2020-08-29] MEDS: methylPREDNISolone 40 MG in SYRINGE 0 ML IV SCH (03:56)
[2020-08-29] MEDS ORDERED: AZITHROMYCIN 250 MG TAB PO SCH (05:00)
[2020-08-29] MEDS: SODIUM CHLOR 7% 4 ML NEB INH SCH (07:19)
[2020-08-29] MEDS ORDERED: ALUMINUM/MAGNESIUM SUSP 30 ML UDC PO STA (08:32)
[2020-08-29] MEDS: FLUTICASONE/VILANTEROL 100/25MCG 14 PUFFS/INHALER INH SCH (08:39)
[2020-08-29] MEDS: UMECLIDINIUM BROMIDE 62.5MCG/BLISTER 7 PUFFS/INHALER INH SCH (08:39)
[2020-08-29] MEDS ORDERED: FAMOTIDINE 20 MG in SYRINGE 3 ML IV ONE (09:00)
[2020-08-29] MEDS ORDERED: PANTOprazole 40 MG TAB PO SCH (09:00)
--- NOTE | 2020-08-29 14:00 | Discharge Summary ---
Date of Service August 29, 2020 Discharge Data Allergies Allergy/AdvReac Type Severity Reaction Status Date / Time aspirin Allergy Mild GI SYMPTOMS Verified 08/27/20 22:05 Consultations 08/27/20 22:02 ED Decision to Admit Stat Hospital Course (1) Acute respiratory failure with hypoxia: Secondary to COPD exacerbation without outpatient prednisone O2 goal 88 to 92% (2) COPD exacerbation: Increased oxygen requirement with exertion, tachypneic, completed a 5-day course of levofloxacin and oral prednisone at home without improvement. Will need tapering dose on discharge. Normal white blood cell count, afebrile, chest x-ray unimpressive for lobar infiltrates, pulmonary edema, atypical pneumonia. proBNP 148, Low suspicion for pneumonia, PE, heart failure very low. Continued clinical improvement. DuoNebs scheduled every 4, as needed 4 times daily for shortness of breath. continue 60 mg IV methylprednisone every 6 scheduled, azithromycin 500x1, 250 x 4 days. Flutter valve and incentive spirometry for pulmonary support Continue tiotropium inhaler daily Added fluticasone/Vilanterol inhaler Patient quit smoking proximately a year ago but has monthly relapses, smoking cessation education would be beneficial VBG normal, no indication of hypercarbic respiratory failure Has not received the vaccine, Covid and flu negative (3) Sleep apnea, obstructive: CPAP nightly (4) History of tobacco use: (5) Paroxysmal atrial tachycardia: 1 minute episode. No EKG taken at this time. We will continue to monitor on telemetry for further recurrences. Set up with outpatient monitoring coordinator to assess for more prolonged episodes of possible atrial flutter. Discharge Plan Discharge Items Patient Disposition: Home - Self-Care Reason For Visit: COPD EXACERBATION Discharge Diagnosis: COPD exacerbation Paroxysmal atrial tachycardia Activity: Per Instructions section Non-emergency contact: Primary Care Provider and Tugboat Mate Call non-emergency contact if: you have any medication questions and your symptoms worsen Follow-up/Referrals: Armando Carter MD [Primary Care Provider] - 09/08/20 2:10 pm Diet: Heart Healthy Addtl Attending Provider Instructions: You were admitted to [facility] [address] [facility] from August 27-2020 due to worsening shortness of breath and cough. He was treated for COPD exacerbation with rapid improvement over the following 2 days. 6-minute walking test on discharge showed no oxygen required at rest but would recommend 2 liters per minute oxygen on exertion. Recommend gradual increase in activity as your shortness of breath allows over the next 1 to 2 weeks. Recommend no significant exertional activities over the next 2 days. Will be a prolonged prescribed prednisone tapering course for ongoing treatment of the COPD exacerbation. Recommend taking albuterol inhaler or albuterol/ipratropium nebulizer 4 times daily regularly for the next 2 days and then as needed every 4 hours after this. Continue with your maintenance inhaler Spiriva. In addition take the maintenance inhaler Breo Ellipta provided you having taking in hospital once daily until resolution of symptoms and follow-up with your senior analyst or primary care physician to determine whether this medication is needed ongoing chronically. Recommend follow-up lung function tests in approximately 4 to 6 weeks when feeling well. This can be arranged with your senior analyst or primary care physician. Incidentally you were noted to have an episode of paroxysmal atrial tachycardia lasting for 1 minute while on the monitor. This is clinically insignificant unless you have further prolonged episodes therefore would recommend follow-up with your primary care physician to discuss possible 30-day monitoring coordinator to see if he had further episodes of this. Kind regards, Dr. Aureliano New Pending Studies at Discharge: No Stand-Alone Forms: My [employer], Smoking Cessation Medications and DC Order Prescriptions: New azithromycin 250 mg Tablet 250 mg PO QAM Qty: 3 RF: 0 prednisone 20 mg tablet See Taper mg PO DAILY 11 Days Qty: 11 RF: 0 famotidine 40 mg tablet 40 mg PO DAILY 14 Days Qty: 14 RF: 0 Breo Ellipta 100-25 mcg/dose blister with device 1 inh inhalation DAILY Qty: 28 RF: 0 Continued albuterol sulfate [ProAir HFA] 90 mcg/actuation HFA aerosol inhaler 2 puff Inhalation Q4 PRN (Reason: Shortness Of Breath Or Wheezing) Qty: 8.5 RF: 3 ipratropium-albuterol 0.5 mg-3 mg(2.5 mg base)/3 mL solution for nebulization 3 ml INH QID PRN (Reason: Shortness Of Breath) Qty: 360 RF: 5 (DME) CPAP Machine Misc See Rx Instructions .MEDSUPPLY Qty: 1 RF: 0 Spiriva Respimat 2.5 mcg/actuation mist 2 puff INHALATION QAM Qty: 4 RF: 6 sodium chloride 7 % solution for nebulization 4 ml inhalation BID Qty: 240 RF: 5 sodium chloride [Saline Mist] 0.65 % Aerosol,[place] 2 spray NA Q2H PRN (Reason: dry nasal passages) Qty: 30 RF: 0 Discontinued levofloxacin 500 mg tablet 500 mg PO DAILY Qty: 10 RF: 0 prednisone 10 mg tablet See Rx Instructions PO DAILY Qty: 36 RF: 0 Krames/Other Patient Handouts: COPD Using Inhalers Admission Data Admit Date/Time: 08/27/20 22:25 Attending Provider: Aureliano New Admit Provider: Jeana Pickard Primary Care Provider: Armando Carter Other Providers: Blaze Smith Coding Diagnoses Acute respiratory failure with hypoxia J96.01 COPD exacerbation J44.1 Sleep apnea, obstructive G47.33 History of tobacco use Z87.891 Paroxysmal atrial tachycardia I47.1
[2020-08-29] MEDS ORDERED: methylPREDNISolone 40 MG in SYRINGE 0 ML IV SCH (18:00)
--- NOTE | 2020-08-30 04:12 | Billing Data ---
Date of Service August 30, 2020 Coding Level of Care Code 42282 Initial Inpt Care Lvl 2
== END 2020-08-29 16:16 | disposition home or self-care (01) | DRG 190 ==
LOC: ED 19:57 → SUATTDRO 22:25 → 2S 22:25 → 2N 08-28 12:55

== ENCOUNTER 2020-11-27 16:34 | Inpatient (IN) ==
[2020-11-27] MEDS ORDERED: ALBUT/IPRATROP 3MG/0.5MG NEB 3 ML VIAL NEB STA (17:47)
[2020-11-27] MEDS ORDERED: methylPREDNISolone 125 MG/2 ML VIAL IV STA (17:47)
[2020-11-27 17:51] LABS: Basophils # (auto) 0.01 K/uL (0-0.2); Basophils % (auto) 0.1 %; Hematocrit (blood only) 42.4 % (37-47); Hemoglobin 14.4 g/dL (12.0-16.0); Immature Granulocytes # (auto) 0.07 K/uL (0.00-0.02); Lymphocytes # (auto) 1.14 K/uL (1.2-3.4); Lymphocytes % (auto) 15.7 %; Mean Corpuscular Hemoglobin 30.8 pg (25-34); Mean Corpuscular Volume 90.8 fL (80-100); Mean Platelet Volume 9.4 fL (7.4-10.4); Monocytes # (auto) 0.57 K/uL (0.11-0.59); Monocytes % (auto) 7.9 %; Neutrophils # (auto) 5.45 K/uL (1.4-6.5); Neutrophils % (auto) 75.3 %; Platelet Count 289 K/uL (130-400); RDW Coefficient of Variation 12.6 % (11.5-14.5); RDW Standard Deviation 41.9 fL (36.4-46.3); Red Blood Count 4.67 M/uL (4.2-5.4); White Blood Count 7.24 K/uL (4.8-10.8)
--- NOTE | 2020-11-27 17:52 | Emergency Department Note ---
Impression & Plan COPD exacerbation, Acute dyspnea ED Provider Note NAME: AVIVA MIMS AGE: 65 SEX: F : 1955 ARRIVES VIA: Walk-In INFORMANT: Patient, ED PROVIDER(S): Otf Hansen DO CHIEF COMPLAINT: Shortness of breath HPI: The patient is a 65-year-old female who presented to the emergency department for an evaluation of shortness of breath. The patient describes significant dyspnea on exertion as well as cough. She has a history of COPD. She was seen in our facility 4 days ago for similar complaints. At that time she was started on a course of steroids as well as an antibiotic. She was not getting better so she called her primary psychological assistant today and was referred to the emergency department for admission. The patient denies having any lower extremity swelling or pain. She does not have a history of DVT or PE. The patient states her symptoms are much worsened with exertion. She denies having any orthopnea. She describes some chest heaviness but states this is similar to when she is had COPD in the past. She denies having any fever. She does not have a significantly productive cough. ROS: See above HPI for pertinent positives & negatives. A total of 10 systems reviewed and were otherwise negative. PAST MEDICAL HISTORY: See Below PAST SURGICAL HISTORY: See Below FAMILY HISTORY: See Below SOCIAL HISTORY: See Below HOME MEDICATIONS: See Below ALLERGIES: See Below VITALS: See Below PHYSICAL EXAMINATION: GENERAL: Patient is awake alert in no acute distress patient is resting comfortably and showing no signs of anxiety EYES: The conjunctivae are clear. The pupils are round and reactive. EARS, NOSE, MOUTH AND THROAT: The nose is without any evidence of any deformity. Mucous membranes are moist. Tongue is midline. NECK: The neck is nontender and supple. RESPIRATORY: Diminished breath sounds are noted throughout. Expiratory wheezes were noted in the upper lung wharton. There was mild conversational dyspnea. CARDIOVASCULAR: Regular rate and rhythm noted there no murmurs rubs or gallops normal S1 normal S2. GASTROINTESTINAL: The abdomen is soft. Abdomen is nontender. MUSCULOSKELETAL/EXTREMITIES: There is no evidence of gross deformity full range of motion is noted in the hips and shoulders. SKIN: There is no obvious evidence of any rash. No calf tenderness was elicited. NEUROLOGIC: Patient is awake alert and oriented x3. MEDICAL DECISION MAKING: The patient is a 65-year-old female who presented to the emergency department for an evaluation of shortness of breath. The patient was in our facility recently with similar complaints. She was placed on the appropriate medications but symptoms continued to worsen. She called her primary psychological assistant and was referred back to the emergency department for admission. I discussed the patient's laboratory and radiographic studies with her. I also discussed her case with the on-call [facility] hospitalist. She was treated with bronchodilator therapy as well as IV steroids. She appeared to be significantly improved but still had very significant shortness of breath with any exertion. Triage Nursing notes reviewed. Prior medical records reviewed Vital Signs: reviewed and remarkable for elevated blood pressure. Differential diagnosis: Reactive airway disease, pneumonia, pneumothorax, COPD, CHF, infections, cardiac ischemia, pulmonary embolism, musculoskeletal, gastrointestinal, as well as other pathologies. ER treatment provided: See below Diagnostics interpreted by me: ECG: EKG was obtained in the emergency department. My interpretation is normal sinus rhythm at 76 bpm. There is no ectopy. There is no acute ST segment abnormalities noted. This was compared to a tracing from November 232020. No significant changes were noted. Cardiac Monitoring: An order was placed for continuous cardiac monitoring. The monitor shows a rate of 88 bpm with sinus rhythm. Laboratory studies: As stated above and show below. Imaging studies: See below Consultation(s): 1839: Dr. Smith was notified about the patient. He will evaluate the patient in the emergency department for further management and disposition. Past Med/Surg History Medical History Asthma Chronic obstructive pulmonary disease with hypoxia 3L NC PRN Pulm - Min [place] COPD exacerbation Family history of colon cancer Sleep apnea, obstructive Yeast infection Surgical History H/O partial thyroidectomy 1990s d/t hemorrhaging?--unknown cause, no meds History of broken collarbone sx to repair History of carpal tunnel surgery of right wrist History of partial hysterectomy History of tooth extraction all teeth Family History Mother , from ovarian cancer Cancer Ovarian Sister Cancer Ovarian Father COPD (chronic obstructive pulmonary disease) Other No family history of adverse response to anesthesia Social History Smoking Status: Former smoker Tobacco Type: Cigarettes Age Started Using Tobacco: 17; Age Quit Using Tobacco: 1; packs per day: 1; Years Smoked: 43; Number of Years Since Quit: 1; Second Hand Exposure: Yes (parents smoked); Hx Alcohol Use: No Hx Substance Use: No Preferred Language: Icelandic 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 Ability: Effective Section [employer] 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 Beliefs That Will Affect Care: None marital status: Current Living Situation: Family Current Living Situation Comment: lives with daughter Feels Safe at Home: Yes Assistive Devices: Glasses and Oxygen - Continuous Allergies Allergies Allergy/AdvReac Type Severity Reaction Status Date / Time aspirin Allergy Mild GI SYMPTOMS Verified 11/27/20 17:38 Home Meds Home Medications Medication Instructions Recorded Confirmed sodium chloride 7 % for 4 ml INHALATION BID PRN 09/23/20 11/27/20 nebulization tiotropium bromide 2.5 2 puff INHALATION QAM PRN 09/23/20 11/27/20 mcg/actuation mist for inhalation (Spiriva Respimat) escitalopram oxalate 10 mg tablet 10 mg PO DAILY 11/23/20 11/27/20 hydroxyzine HCl 10 mg tablet 10 mg PO UD PRN 11/23/20 11/27/20 Previous Rx's Medication Instructions Recorded CPAP Machine #1 ea 12/06/19 ProAir HFA 90 mcg/actuation 2 puff INHALATION Q4 PRN #8.5 gm NS 02/29/20 aerosol inhaler (albuterol sulfate) ipratropium 0.5 mg-albuterol 3 mg 3 ml INH QID PRN #360 ml 08/29/20 (2.5 mg base)/3 mL nebulization soln fexofenadine-pseudoephedrine ER 1 tab PO QAM #30 tab 10/02/20 180 mg-240 mg tablet,ext.release 24 hr (Marilee-D 24 Hour) lorazepam 1 mg tablet (Ativan) 0.5 mg PO Q6H PRN #10 tab 10/22/20 doxycycline hyclate 100 mg capsule 100 mg PO BID 5 Days #10 cap 11/23/20 prednisone 20 mg tablet 40 mg PO DAILY 5 Days #10 tab 11/23/20 Results & Data (ED) Vital Signs Vital Signs - 24 hr 11/27/20 16:43 11/27/20 17:30 11/27/20 17:54 Temperature 36.6 C Temperature Source Temporal Artery Scan Pulse Rate 90 79 77 Pulse Rate [Apical] Pulse Rate from SpO2 Sensor 81 Pulse Rhythm Regular Respiratory Rate 18 24 22 Respiratory Effort / Characteristics Spontaneous Accessory Muscle Use Labored Short of Breath SOB on Exertion Blood Pressure 171/97 H 176/89 H Blood Pressure Mean 121 118 Pulse Oximetry 96 96 97 Oxygen Delivery Method Nasal Cannula Nasal Cannula Oxygen Flow Rate 3 3 Sepsis Recent Fever Within 48 Hours No Sepsis New/Unexplained Change in Mental Status No Sepsis Action Taken by Nursing No Action Required 11/27/20 18:00 11/27/20 18:02 11/27/20 18:30 Temperature Temperature Source Pulse Rate 80 88 Pulse Rate [Apical] 78 Pulse Rate from SpO2 Sensor 81 88 Pulse Rhythm Respiratory Rate 24 21 18 Respiratory Effort / Characteristics Spontaneous Blood Pressure 165/97 H 146/102 H Blood Pressure Mean 119 116 Pulse Oximetry 97 95 96 Oxygen Delivery Method Nasal Cannula Oxygen Flow Rate 3 Sepsis Recent Fever Within 48 Hours Sepsis New/Unexplained Change in Mental Status Sepsis Action Taken by Nursing 11/27/20 19:00 Temperature Temperature Source Pulse Rate 88 Pulse Rate [Apical] Pulse Rate from SpO2 Sensor 85 Pulse Rhythm Respiratory Rate 20 Respiratory Effort / Characteristics Blood Pressure 152/83 H Blood Pressure Mean 106 Pulse Oximetry 96 Oxygen Delivery Method Nasal Cannula Oxygen Flow Rate 3 Sepsis Recent Fever Within 48 Hours Sepsis New/Unexplained Change in Mental Status Sepsis Action Taken by Prison Medications Current Medication List: was personally reviewed by me Laboratory Data Attestation: I reviewed the patient's lab results. Result diagrams: 11/27/20 17:35 11/27/20 17:35 Lab Results 11/27/20 11/27/20 11/27/20 Range/Units 17:35 17:35 17:35 WBC 7.24 (4.8-10.8) K/uL RBC 4.67 (4.2-5.4) M/uL Hgb 14.4 (12.0-16.0) g/dL Hct 42.4 (37-47) % MCV 90.8 (80-100) fL MCH 30.8 (25-34) pg MCHC 34.0 (32-36) g/dL RDW Std Deviation 41.9 (36.4-46.3) fL RDW Coeff of Audrey 12.6 (11.5-14.5) % Plt Count 289 (130-400) K/uL MPV 9.4 (7.4-10.4) fL Immature Gran % (Auto) 1.0 % Neut % (Auto) 75.3 % Lymph % (Auto) 15.7 % [place] % (Auto) 7.9 % Eos % (Auto) 0.0 % Baso % (Auto) 0.1 % Neut # (Auto) 5.45 (1.4-6.5) K/uL Lymph # (Auto) 1.14 L (1.2-3.4) K/uL [place] # (Auto) 0.57 (0.11-0.59) K/uL Eos # (Auto) 0.00 (0-0.5) K/uL Baso # (Auto) 0.01 (0-0.2) K/uL Immature Gran # (Auto) 0.07 H (0.00-0.02) K/uL PT 9.8 (9.0-12.0) Seconds INR 1.0 (0.9-1.1) APTT 24.1 (21.0-31.0) Seconds PTT Ratio 0.9 Sodium 139 (136-145) mmol/L Potassium 4.0 (3.5-5.1) mmol/L Chloride 107 (98-107) mmol/L Carbon Dioxide 27 (21-32) mmol/L Anion Gap 5.0 (3-11) BUN 13 (7-18) mg/dl Creatinine 0.76 (0.6-1.2) mg/dl Est Cr Clr Drug Dosing 60.2 ml/min Est GFR ( Amer) 94.7 ml/min Est GFR (Non-Af Amer) 81.7 ml/min BUN/Creatinine Ratio 17.1 (10-20) Glucose 101 H (70-99) mg/dl Calcium 8.6 (8.5-10.1) mg/dl Magnesium 2.4 (1.8-2.4) mg/dl Total Bilirubin 0.4 (0.2-1) mg/dl AST 16 (15-37) U/L ALT 34 (12-78) U/L Alkaline Phosphatase 73 (45-117) U/L Troponin I < 0.015 (0-0.045) ng/ml Total Protein 6.7 (6.4-8.2) gm/dl Albumin 3.6 (3.4-5.0) gm/dl Globulin 3.1 (2.5-4.0) gm/dl Albumin/Globulin Ratio 1.2 (0.9-2) COVID-19 Eval Order SARS-CoV-2 (PCR) (Negative) 11/27/20 11/27/20 Range/Units 17:55 17:55 WBC (4.8-10.8) K/uL RBC (4.2-5.4) M/uL Hgb (12.0-16.0) g/dL Hct (37-47) % MCV (80-100) fL MCH (25-34) pg MCHC (32-36) g/dL RDW Std Deviation (36.4-46.3) fL RDW Coeff of Audrey (11.5-14.5) % Plt Count (130-400) K/uL MPV (7.4-10.4) fL Immature Gran % (Auto) % Neut % (Auto) % Lymph % (Auto) % [place] % (Auto) % Eos % (Auto) % Baso % (Auto) % Neut # (Auto) (1.4-6.5) K/uL Lymph # (Auto) (1.2-3.4) K/uL [place] # (Auto) (0.11-0.59) K/uL Eos # (Auto) (0-0.5) K/uL Baso # (Auto) (0-0.2) K/uL Immature Gran # (Auto) (0.00-0.02) K/uL PT (9.0-12.0) Seconds INR (0.9-1.1) APTT (21.0-31.0) Seconds PTT Ratio Sodium (136-145) mmol/L Potassium (3.5-5.1) mmol/L Chloride (98-107) mmol/L Carbon Dioxide (21-32) mmol/L Anion Gap (3-11) BUN (7-18) mg/dl Creatinine (0.6-1.2) mg/dl Est Cr Clr Drug Dosing ml/min Est GFR ( Amer) ml/min Est GFR (Non-Af Amer) ml/min BUN/Creatinine Ratio (10-20) Glucose (70-99) mg/dl Calcium (8.5-10.1) mg/dl Magnesium (1.8-2.4) mg/dl Total Bilirubin (0.2-1) mg/dl AST (15-37) U/L ALT (12-78) U/L Alkaline Phosphatase (45-117) U/L Troponin I (0-0.045) ng/ml Total Protein (6.4-8.2) gm/dl Albumin (3.4-5.0) gm/dl Globulin (2.5-4.0) gm/dl Albumin/Globulin Ratio (0.9-2) COVID-19 Eval Order Covid19 at [facility] SARS-CoV-2 (PCR) NEGATIVE (Negative) Administered Medications Discontinued Medications Albuterol (Albut/Ipratrop 3mg/0.5mg Neb 3 Ml Vial) 3 ml NEB NOW STA Stop: 11/27/20 17:48 Last Admin: 11/27/20 18:01 Dose: 3 ml Documented by: [id number] Methylprednisolone (Methylprednisolone 125 Mg/2 Ml Vial) 125 mg IV NOW STA Stop: 11/27/20 17:48 Last Admin: 11/27/20 18:13 Dose: 125 mg Documented by: [id number] Imaging Data Radiologist's Impression: Chest X-Ray 11/27/20 16:45 XR chest 1V portable HISTORY: 65 years-old Female SOB acute shortness of breath COMPARISON: 11/23/2020 TECHNIQUE: Portable AP view of the chest FINDINGS: Cardiomediastinal and hilar silhouettes are within normal limits. Emphysema with mild chronic interstitial coarsening. No pneumothorax, pleural effusion, airspace consolidation or overt pulmonary edema. Bones of the chest appear grossly intact. Degenerative changes of the shoulders and spine. IMPRESSION: Emphysema with chronic interstitial coarsening. ACT 112: Negative or not required by law. The above report was generated using voice recognition software. It may contain grammatical, syntax or spelling errors. Electronically signed by: Landon Lechuga M.D. 11/27/2020 6:09 PM Discharge Plan Visit Data Chief Complaint: Shortness of Breath/Dyspnea Stated Complaint: REF BY , COPD ED Provider: Otf Hansen Discharge Problem: COPD exacerbation, Acute dyspnea Patient Disposition: Admitted As Inpatient Condition: Good Forms Stand Alone Forms: My [facility] Prescriptions Prescriptions: No Action albuterol sulfate [ProAir HFA] 90 mcg/actuation HFA aerosol inhaler 2 puff Inhalation Q4 PRN (Reason: Shortness Of Breath Or Wheezing) Qty: 8.5 RF: 3 ipratropium-albuterol 0.5 mg-3 mg(2.5 mg base)/3 mL solution for nebulization 3 ml INH QID PRN (Reason: Shortness Of Breath) Qty: 360 RF: 5 (DME) CPAP Machine Misc See Rx Instructions .MEDSUPPLY Qty: 1 RF: 0 Marilee-D 24 Hour 180-240 mg tablet extended release 24 hr 1 tab PO QAM Qty: 30 RF: 0 sodium chloride 7 % solution for nebulization 4 ml inhalation BID PRN (Reason: PER PT IF USE NEB RX.) RF: 0 Spiriva Respimat 2.5 mcg/actuation mist 2 puff INHALATION QAM PRN (Reason: Shortness Of Breath) RF: 0 lorazepam [Ativan] 1 mg tablet 0.5 mg PO Q6H PRN (Reason: anxiety) Qty: 10 RF: 0 escitalopram oxalate 10 mg tablet 10 mg PO DAILY RF: 0 hydroxyzine HCl 10 mg tablet 10 mg PO UD PRN (Reason: Anxiety) RF: 0 doxycycline hyclate 100 mg capsule 100 mg PO BID 5 Days Qty: 10 RF: 0 prednisone 20 mg tablet 40 mg PO DAILY 5 Days Qty: 10 RF: 0 Referrals Referrals: Roshan Crandall MD [Primary Care Provider] -
[2020-11-27 18:03] LABS: Partial Thromboplastin Ratio 0.9; Partial Thromboplastin Time 24.1 Seconds (21.0-31.0); Prothrombin Time 9.8 Seconds (9.0-12.0)
[2020-11-27 18:07] LABS: Alanine Aminotransferase 34 U/L (12-78); Albumin Level 3.6 gm/dl (3.4-5.0); Aspartate Aminotransferase 16 U/L (15-37); BUN Creatinine Ratio 17.1 (10-20); Blood Urea Nitrogen 13 mg/dl (7-18); Calcium 8.6 mg/dl (8.5-10.1); Carbon Dioxide 27 mmol/L (21-32); Chloride 107 mmol/L (98-107); Creatinine Clr Calc Pharmacy 60.2 ml/min; Est GFR (African American) 94.7 ml/min; Est GFR (Non-African American) 81.7 ml/min; Glucose 101 mg/dl (70-99); Magnesium 2.4 mg/dl (1.8-2.4); Sodium 139 mmol/L (136-145)
--- NOTE | 2020-11-27 18:11 | XRay Report ---
XR chest 1V portable HISTORY: 65 years-old Female SOB acute shortness of breath COMPARISON: 11/23/2020 TECHNIQUE: Portable AP view of the chest FINDINGS: Cardiomediastinal and hilar silhouettes are within normal limits. Emphysema with mild chronic interst itial coarsening. No pneumothorax, pleural effusion, airspace consolidation or overt pulmonary edema. Bones of the chest appear grossly intact. Degenerative changes of the shoulders and spine. IMPRESSION: Emphysema with chronic interstitial coarsening. ACT 112: Negative or not required by law. The above report was generated using voice recognition software. It may contain grammatical, syntax o r spelling errors. Electronically signed by: Landon Lechuga M.D. 11/27/2020 6:09 PM
[2020-11-27 18:12] LABS: Albumin Globulin Ratio 1.2 (0.9-2); Alkaline Phosphatase 73 U/L (45-117); Bilirubin,Total 0.4 mg/dl (0.2-1); Globulin 3.1 gm/dl (2.5-4.0); Total Protein 6.7 gm/dl (6.4-8.2); Troponin I < 0.015 ng/ml (0-0.045)
--- NOTE | 2020-11-27 19:00 | History & Physical Report ---
Date of Service November 27, 2020 Assessment & Plan (1) Acute on chronic respiratory failure with hypoxia: Plan: Acute on chronic respiratory failure with hypoxia/COPD exacerbation- Received Solu-Medrol 125 mg IV in ED and a 1 hour-long DuoNeb treatment with some improvement Methylprednisolone 40 mg IV every 8 hours Azithromycin 5 mg IV daily Duonebs every 4 hours while awake and every 2 hours when necessary. Guaifenesin extended release 1200 mg p.o. twice daily Pulmicort Respules 0.5 mg inhaled twice daily, would recommend this be added to her outpatient treatment upon discharge Hold oral prednisone, ProAir HFA, doxycycline and Spiriva. Nasal cannula oxygen, titrate to keep pulse ox around 94% (2) Acute exacerbation of chronic obstructive airways disease: Plan: See above (3) History of tobacco use: Plan: Has continued to remain tobacco free (4) Sleep apnea, obstructive: Plan: Uses auto CPAP at home, with range 5-15 History of Present Illness Chief Complaint: The patient presents to the emergency department with acute onset of shortness of breath that worsened as the day progressed today Primary Care Provider: Roshan Crandall MD The patient is a 65-year-old female with a past medical history including COPD, eustachian tube dysfunction, chronic respiratory failure, history of acute respiratory failure with hypoxia, paroxysmal atrial tachycardia, obstructive sleep apnea and history of tobacco use. The patient reports over the past few days she has had to put her oxygen on when she walks, and she has had to use her inhalers and nebulizers more frequently at home, with little improvement. She feels that the humidity and being exposed to her grandchildren who were sick recently, have caused her to have her present exacerbation. Allergies Allergy/AdvReac Type Severity Reaction Status Date / Time aspirin Allergy Mild GI SYMPTOMS Verified 11/27/20 17:38 Home Medications Medication Instructions Recorded Confirmed Type CPAP Machine #1 ea 12/06/19 11/27/20 Rx ProAir HFA 90 mcg/actuation 2 puff INHALATION Q4 PRN #8.5 gm NS 02/29/20 11/27/20 Rx aerosol inhaler (albuterol sulfate) ipratropium 0.5 mg-albuterol 3 mg 3 ml INH QID PRN #360 ml 08/29/20 11/27/20 Rx (2.5 mg base)/3 mL nebulization soln sodium chloride 7 % for 4 ml INHALATION BID PRN 09/23/20 11/27/20 History nebulization tiotropium bromide 2.5 2 puff INHALATION QAM PRN 09/23/20 11/27/20 History mcg/actuation mist for inhalation (Spiriva Respimat) fexofenadine-pseudoephedrine ER 1 tab PO QAM #30 tab 10/02/20 11/27/20 Rx 180 mg-240 mg tablet,ext.release 24 hr (Marilee-D 24 Hour) lorazepam 1 mg tablet (Ativan) 0.5 mg PO Q6H PRN #10 tab 10/22/20 11/27/20 Rx doxycycline hyclate 100 mg capsule 100 mg PO BID 5 Days #10 cap 11/23/20 11/27/20 Rx escitalopram oxalate 10 mg tablet 10 mg PO DAILY 11/23/20 11/27/20 History hydroxyzine HCl 10 mg tablet 10 mg PO UD PRN 11/23/20 11/27/20 History prednisone 20 mg tablet 40 mg PO DAILY 5 Days #10 tab 11/23/20 11/27/20 Rx Past Med/Surg History Medical History Asthma Chronic obstructive pulmonary disease with hypoxia 3L NC PRN Pulm - Min [place] COPD exacerbation Family history of colon cancer Sleep apnea, obstructive Yeast infection Surgical History H/O partial thyroidectomy 1990s d/t hemorrhaging?--unknown cause, no meds History of broken collarbone sx to repair History of carpal tunnel surgery of right wrist History of partial hysterectomy History of tooth extraction all teeth Family History Mother , from ovarian cancer Cancer Ovarian Sister Cancer Ovarian Father COPD (chronic obstructive pulmonary disease) Other No family history of adverse response to anesthesia Social History Smoking Status: Former smoker Tobacco Type: Cigarettes Age Started Using Tobacco: 17; Age Quit Using Tobacco: 1; packs per day: 1; Years Smoked: 43; Number of Years Since Quit: 1; Second Hand Exposure: Yes (parents smoked); Hx Alcohol Use: No Hx Substance Use: No Preferred Language: French 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 Ability: Effective 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 Beliefs That Will Affect Care: None marital status: Current Living Situation: Family Current Living Situation Comment: lives with daughter Feels Safe at Home: Yes Assistive Devices: Glasses and Oxygen - Continuous Review of Systems Review of Systems: The patient denies chest pain, palpitations, cough, lower extremity swelling, sore throat, fevers, chills, sweats, nausea, vomiting, diarrhea , constipation, abdominal pain, pelvic pain, blood in urine or stool, dysuria, urinary frequency or urgency, lightheadedness, dizziness, headache, memory loss, loss of consciousness, rash, abnormal bruising or bleeding, imbalance, focal or generalized weakness, numbness or tingling in arms or legs, generalized arthralgias or myalgias, back or neck pain, or night sweats. The review of systems is otherwise negative other than for that already noted above, and at least 10 systems have been reviewed. Physical Exam Physical Exam: The patient is awake, alert and oriented 3, well developed and well nourished, normocephalic and atraumatic, lying in bed and in no acute distress. HEENT--PERRL, EOMI, mucous membranes and oropharynx dry. Neck--supple. No JVD. No bruits. Thyroid normal, trachea midline, no adenopathy. Heart--normal S1 and S2. No murmurs, rubs or gallops. Lungs--rhonchi and wheezes bilaterally, no respiratory distress, no accessory muscle use. Abdomen--normal bowel sounds and soft. Nontender. Nondistended, no hernias or masses, no organomegaly. Extremities--no cyanosis or clubbing. No edema. Dermatologic--normal skin turgor, normal color, no abnormal lymph nodes, no rash. Neurologic--cranial nerves II through XII grossly intact. Rheumatologic--normal range of motion. Psychiatric--normal affect. Results & Data Results & Data ([facility]) Vital Signs (Past 12 Hours) Vital Signs Temp Pulse Pulse Resp BP Pulse Ox 11/27/20 18:02 78 21 95 11/27/20 17:54 77 22 97 11/27/20 17:30 79 24 176/89 H 96 11/27/20 16:43 97.9 F 90 18 171/97 H 96 Laboratory Results Laboratory Results WBC 7.24 K/uL (4.8-10.8) 11/27/20 17:35 RBC 4.67 M/uL (4.2-5.4) 11/27/20 17:35 Hgb 14.4 g/dL (12.0-16.0) 11/27/20 17:35 Hct 42.4 % (37-47) 11/27/20 17:35 MCV 90.8 fL (80-100) 11/27/20 17:35 MCH 30.8 pg (25-34) 11/27/20 17:35 MCHC 34.0 g/dL (32-36) 11/27/20 17:35 RDW Std Deviation 41.9 fL (36.4-46.3) 11/27/20 17:35 RDW Coeff of Audrey 12.6 % (11.5-14.5) 11/27/20 17:35 Plt Count 289 K/uL (130-400) 11/27/20 17:35 MPV 9.4 fL (7.4-10.4) 11/27/20 17:35 Immature Gran % (Auto) 1.0 % 11/27/20 17:35 Neut % (Auto) 75.3 % 11/27/20 17:35 Lymph % (Auto) 15.7 % 11/27/20 17:35 Bollinger % (Auto) 7.9 % 11/27/20 17:35 Eos % (Auto) 0.0 % 11/27/20 17:35 Baso % (Auto) 0.1 % 11/27/20 17:35 Neut # (Auto) 5.45 K/uL (1.4-6.5) 11/27/20 17:35 Lymph # (Auto) 1.14 K/uL (1.2-3.4) L 11/27/20 17:35 Bollinger # (Auto) 0.57 K/uL (0.11-0.59) 11/27/20 17:35 Eos # (Auto) 0.00 K/uL (0-0.5) 11/27/20 17:35 Baso # (Auto) 0.01 K/uL (0-0.2) 11/27/20 17:35 Immature Gran # (Auto) 0.07 K/uL (0.00-0.02) H 11/27/20 17:35 PT 9.8 Seconds (9.0-12.0) 11/27/20 17:35 INR 1.0 (0.9-1.1) 11/27/20 17:35 APTT 24.1 Seconds (21.0-31.0) 11/27/20 17:35 PTT Ratio 0.9 11/27/20 17:35 Sodium 139 mmol/L (136-145) 11/27/20 17:35 Potassium 4.0 mmol/L (3.5-5.1) 11/27/20 17:35 Chloride 107 mmol/L (98-107) 11/27/20 17:35 Carbon Dioxide 27 mmol/L (21-32) 11/27/20 17:35 Anion Gap 5.0 (3-11) 11/27/20 17:35 BUN 13 mg/dl (7-18) 11/27/20 17:35 Creatinine 0.76 mg/dl (0.6-1.2) 11/27/20 17:35 Est Cr Clr Drug Dosing 60.2 ml/min 11/27/20 17:35 Est GFR ( Amer) 94.7 ml/min 11/27/20 17:35 Est GFR (Non-Af Amer) 81.7 ml/min 11/27/20 17:35 BUN/Creatinine Ratio 17.1 (10-20) 11/27/20 17:35 Glucose 101 mg/dl (70-99) H 11/27/20 17:35 Calcium 8.6 mg/dl (8.5-10.1) 11/27/20 17:35 Magnesium 2.4 mg/dl (1.8-2.4) 11/27/20 17:35 Total Bilirubin 0.4 mg/dl (0.2-1) 11/27/20 17:35 AST 16 U/L (15-37) 11/27/20 17:35 ALT 34 U/L (12-78) 11/27/20 17:35 Alkaline Phosphatase 73 U/L (45-117) 11/27/20 17:35 Troponin I < 0.015 ng/ml (0-0.045) 11/27/20 17:35 Total Protein 6.7 gm/dl (6.4-8.2) 11/27/20 17:35 Albumin 3.6 gm/dl (3.4-5.0) 11/27/20 17:35 Globulin 3.1 gm/dl (2.5-4.0) 11/27/20 17:35 Albumin/Globulin Ratio 1.2 (0.9-2) 11/27/20 17:35 COVID-19 Eval Order Covid19 at [facility] 11/27/20 17:55 Impressions Chest X-Ray 11/27/20 16:45 XR chest 1V portable HISTORY: 65 years-old Female SOB acute shortness of breath COMPARISON: 11/23/2020 TECHNIQUE: Portable AP view of the chest FINDINGS: Cardiomediastinal and hilar silhouettes are within normal limits. Emphysema with mild chronic interstitial coarsening. No pneumothorax, pleural effusion, airspace consolidation or overt pulmonary edema. Bones of the chest appear grossly intact. Degenerative changes of the shoulders and spine. IMPRESSION: Emphysema with chronic interstitial coarsening. ACT 112: Negative or not required by law. The above report was generated using voice recognition software. It may contain grammatical, syntax or spelling errors. Electronically signed by: Landon Lechuga M.D. 11/27/2020 6:09 PM Code Status & VTE Plan Code Status Full code VTE Prophylaxis Plan VTE Prophylaxis will be ordered: Yes PG Care Time/CCT Total # of Minutes Spent Total Time Spent with Patient: Total time spent is greater than 50% in coordination of care (as documented) at patient's floor/unit and/or counseling patient: Coding Level of Care Code 52933 Initial Inpt Care Lvl 2 Diagnoses Acute exacerbation of chronic obstructive airways disease J44.1 Acute on chronic respiratory failure with hypoxia J96.21 History of tobacco use Z87.891 Sleep apnea, obstructive G47.33
[2020-11-27] MEDS ORDERED: ONDANSETRON INJ 2 MG/ML 2 ML VIAL IV PRN (22:13)
[2020-11-27] MEDS ORDERED: SODIUM CHLOR 7% 4 ML NEB INH PRN (22:13)
[2020-11-27] MEDS ORDERED: hydrOXYzine HCl 10 MG TAB PO PRN (22:13)
[2020-11-27] MEDS ORDERED: ACETAMINOPHEN 325 MG TAB PO PRN (22:13)
[2020-11-27] MEDS ORDERED: LORazepam 0.5 MG TAB PO PRN (22:42)
[2020-11-27] MEDS: AZITHROMYCIN 500 MG in DEXTROSE 5% 250 ML IV SCH (23:30)
[2020-11-27] MEDS: guaiFENesin 600 MG TABCR PO SCH (23:30)
[2020-11-27] MEDS: HEPARIN SOD 5,000 UNIT/0.5 ML VIAL SQ SCH (23:31)
[2020-11-27] MEDS: ALBUT/IPRATROP 3MG/0.5MG NEB 3 ML VIAL NEB SCH (23:56)
[2020-11-27] MEDS: BUDESONIDE 0.5 MG/2 ML VIAL (PULMICORT) NEB SCH (23:57)
[2020-11-28] MEDS: methylPREDNISolone 40 MG in SYRINGE 0 ML IV SCH ×3 (02:13→17:17)
[2020-11-28] MEDS: ALBUT/IPRATROP 3MG/0.5MG NEB 3 ML VIAL NEB SCH ×5 (04:55→20:06)
[2020-11-28] MEDS: BUDESONIDE 0.5 MG/2 ML VIAL (PULMICORT) NEB SCH (07:11)
[2020-11-28] MEDS: guaiFENesin 600 MG TABCR PO SCH ×2 (08:02→20:56)
[2020-11-28] MEDS: ESCITALOPRAM OXALATE 10 MG TAB PO SCH (08:02)
[2020-11-28] MEDS: HEPARIN SOD 5,000 UNIT/0.5 ML VIAL SQ SCH ×2 (08:03→20:57)
[2020-11-28] MEDS: FEXOFENADINE HCL 180 MG TAB PO SCH (08:03)
--- NOTE | 2020-11-28 08:23 | Hospitalist Progress Note ---
Date of Service November 28, 2020 Assessment & Plan (1) Acute on chronic respiratory failure with hypoxia: Plan: Masha Mcneil is a 60yo female with past medical history of COPD, chronic hypoxic respiratory failure with as needed oxygen at home who is admitted for acute on chronic respiratory failure in the setting of COPD exacerbation. Acute on Chronic Respiratory Failure in the setting of COPD Exacerbation Received Solu-Medrol 125 mg IV in ED and a 1 hour-long DuoNeb treatment with some improvement. Reports continued abstinence from tobacco. - Continue Methylprednisolone 40 mg IV every 8 hours -- if no improvement or plateauing on this dose consider increase to 60mg - Continue Azithromycin 5 mg IV daily - Duonebs QID - Continue Guaifenesin 1200 mg PO twice daily - Oxygen via nasal cannula as needed to keep pulse ox around 94% - Prescription provided to for portable oxygen concentrator as patient having issues with running out of oxygen when out of her home Obstructive Sleep Apnea - Uses CPAP at home - Range 5-15 - Continue home parameters here DVT prophylaxis: Heparin 5000 units SQ q12H Diet: Regular Dispo: Med/surg with tele CODE: FULL (2) Acute exacerbation of chronic obstructive airways disease: (3) History of tobacco use: (4) Sleep apnea, obstructive: Admission and Anticipated Discharge Date Admission Date: November 27, 2020 Supervising Physician Co-Signing Physician Notes Attending attestation Pt seen and examined in concert with Dr. Rubio. In agreement with the documented findings as noted in the resident documentation with any exceptions or additions as noted here. Mild improvement of shortness of breath and cough compared to prior to admission in pattern similar to previous COPD flares. Still feeling SOB with commode, mild effort. On examination, S1/S2 nl RRR no MCG. Highly decreased breath sounds diffusely. Abd NT/ND BS+ve Acute on chronic hypoxic respiratory failure in the setting of COPD with acute exacerbation - O2 per protocol. Continue duoneb. Continue Solumedrol and uptitrate today if improvment plateaus to 60 q8. Obtain O2 condenser @ home as O2 need appears to outstrip routine supply at home. Else see resident documentation as noted. Subjective Patient seen at bedside this morning. Reports feeling overall better than when she initially came in, though she does report ongoing shortness of breath when ambulating. Otherwise no complaints. Review of Systems Review of Systems: All systems reviewed & are unremarkable except as noted in Subjective Physical Exam Physical Exam: General--awake, alert and oriented 3, well developed and well nourished, normocephalic and atraumatic, lying in bed and in no acute distress. Heart--normal S1 and S2. No murmurs, rubs or gallops. Lungs--Rhonchi LLL, expiratory wheezes B/L bases, no respiratory distress, no accessory muscle use. Extremities--no cyanosis or clubbing. No edema. Dermatologic--normal skin turgor, normal color, no abnormal lymph nodes, no rash. Neurologic--cranial nerves II through XII grossly intact. Psychiatric--normal affect. Results & Data Results & Data ([facility]) Vital Signs (Past 12 Hours) Vital Signs Temp Pulse Pulse Pulse Resp BP BP 11/28/20 08:20 36.4 C L 79 22 11/28/20 07:11 94 H 20 11/28/20 04:55 74 18 11/28/20 02:55 36.6 C 68 18 11/28/20 00:00 75 20 11/27/20 22:13 36.9 C 83 84 22 151/92 H 11/27/20 21:30 74 20 164/86 H 11/27/20 21:00 76 24 150/83 H 11/27/20 20:30 79 21 145/79 H BP Pulse Ox Pulse Ox 11/28/20 08:20 153/73 H 92 11/28/20 07:11 96 11/28/20 04:55 95 11/28/20 02:55 127/68 98 11/28/20 00:00 95 11/27/20 22:13 94 94 11/27/20 21:30 97 11/27/20 21:00 97 11/27/20 20:30 97 Resident Activity Tracking Resident Involvement: Resident Care Provided Care Provided: Adult Hospital Medicine
[2020-11-28] MEDS ORDERED: FEXOFENADINE HCL 180 MG TAB PO SCH (09:00)
--- NOTE | 2020-11-28 17:34 | Electrocardiogram Report ---
Test Reason : Blood Pressure : / mmHG Vent. Rate : 076 BPM Atrial Rate : 076 BPM P-R Int : 148 ms QRS Dur : 080 ms QT Int : 374 ms P-R-T Axes : 084 066 067 degrees QTc Int : 420 ms Normal sinus rhythm Normal ECG When compared with ECG of 23-NOV-2020 13:56, No significant change was found Confirmed by Arthur Pack ([id number]) on 11/28/2020 5:34:36 PM Referred By: Fortunato [place] Confirmed By:Glenroy Pack
[2020-11-28] MEDS: AZITHROMYCIN 500 MG in DEXTROSE 5% 250 ML IV SCH (23:43)
[2020-11-29] MEDS: methylPREDNISolone 40 MG in SYRINGE 0 ML IV SCH ×3 (02:35→17:15)
--- NOTE | 2020-11-29 06:50 | Hospitalist Progress Note ---
Date of Service November 29, 2020 Assessment & Plan (1) Acute on chronic respiratory failure with hypoxia: Plan: Masha Mcneil is a 60yo female with past medical history of COPD, chronic hypoxic respiratory failure with as needed oxygen at home who is admitted for COPD exacerbation. [id number] respiratory failure, COPD exacerbation - Received solumedrol 125mg IV in ED and a 1hr DuoNeb treatment with some improvement - Reports continued abstinence from tobacco. - Continue Methylprednisolone 40 mg IV q8h -- if no improvement or plateauing on this dose consider increase to 60mg - Continue Azithromycin 125mg IV daily - Duonebs QID - Continue Guaifenesin 1200 mg PO twice daily - Oxygen via nasal cannula as needed - Prescription provided to CM for portable oxygen concentrator as patient having issues with running out of oxygen when out of her home Obstructive sleep apnea - Uses CPAP at home - Range 5-15 - Continue home parameters here DVT prophylaxis: Heparin 5000 units SQ q12H Diet: Regular Dispo: Med/surg with tele CODE: FULL (2) Acute exacerbation of chronic obstructive airways disease: (3) History of tobacco use: (4) Sleep apnea, obstructive: Admission and Anticipated Discharge Date Admission Date: November 27, 2020 Supervising Physician Co-Signing Physician Notes Attending attestation Pt seen and examined in concert with Dr. Jackson. In agreement with the documented findings as noted in the resident documentation with any exceptions or additions as noted here. Continued improvement in SOB which is now predominantly with exertion - requires O2 for trips to bathroom but comfortable in bed on RA. Does not require that O2 at baseline usually, but does for longer trips etc. On examination, S1/S2 nl RRR no MCG. Highly decreased breath sounds diffusely marginally improved. Abd NT/ND BS+ve Acute on chronic hypoxic respiratory failure in the setting of COPD with acute exacerbation - O2 per protocol. Continue duoneb. Continue Solumedrol and flip to PO prednisone in AM if doing well. Obtain O2 condenser @ home as O2 need appears to outstrip routine supply at home. Else see resident documentation as noted. Subjective Patient seen and evaluated at bedside this morning. No acute events overnight. Patient feels well this morning and only complains of mild heartburn that is improved with tums. SOB continues to improve. No other complaints. Denies abdominal pain, nausea, vomiting, fever, chills, lightheadedness, dizziness. Review of Systems Review of Systems: See HPI Physical Exam Physical Exam: Constitutional: well-appearing, no acute distress CV: regular rhythm, no murmur appreciated, extremities well-perfused, no LE edema Resp: CTABL, fair air movement, no increased work of breathing MSK: no gross deformities appreciated Skin: warm, dry, no rash appreciated Neuro: AOx4, no focal neurological deficits appreciated Results & Data Results & Data ([facility]) Vital Signs (Past 12 Hours) Vital Signs Temp Pulse Pulse Resp BP Pulse Ox 11/29/20 04:00 36.4 C L 65 18 129/73 97 11/28/20 23:58 76 11/28/20 23:39 36.5 C 76 18 131/63 97 11/28/20 20:07 74 18 94 11/28/20 19:37 36.5 C 74 18 133/68 95 Resident Activity Tracking Resident Involvement: Resident Care Provided Care Provided: Adult Hospital Medicine
[2020-11-29] MEDS: ALBUT/IPRATROP 3MG/0.5MG NEB 3 ML VIAL NEB SCH ×4 (07:32→19:36)
[2020-11-29] MEDS ORDERED: PNEUMOCOCCAL Polysaccharide Vaccine 25mcg/0.5mL vial/Syr IM ONE (08:00)
[2020-11-29] MEDS: CALCIUM CARBONATE 500 MG CHEWABLE TAB PO PRN ×2 (08:08→12:41)
[2020-11-29] MEDS: ESCITALOPRAM OXALATE 10 MG TAB PO SCH (08:09)
[2020-11-29] MEDS: FEXOFENADINE HCL 180 MG TAB PO SCH (08:09)
[2020-11-29] MEDS: guaiFENesin 600 MG TABCR PO SCH ×2 (08:09→21:32)
[2020-11-29] MEDS: HEPARIN SOD 5,000 UNIT/0.5 ML VIAL SQ SCH ×2 (09:33→21:33)
[2020-11-29] MEDS ORDERED: CALCIUM CARBONATE 500 MG CHEWABLE TAB PO PRN (13:43)
[2020-11-29] MEDS: AZITHROMYCIN 500 MG in DEXTROSE 5% 250 ML IV SCH (23:36)
[2020-11-30] MEDS: methylPREDNISolone 40 MG in SYRINGE 0 ML IV SCH ×2 (02:17→09:46)
--- NOTE | 2020-11-30 06:42 | Hospitalist Progress Note ---
Date of Service November 30, 2020 Assessment & Plan (1) Acute on chronic respiratory failure with hypoxia: Plan: Masha Mcneil is a 60yo female with past medical history of COPD, chronic hypoxic respiratory failure with as needed oxygen at home who is admitted for COPD exacerbation. [id number] respiratory failure, COPD exacerbation - Received solumedrol 125mg IV in ED and a 1hr DuoNeb treatment with some improvement - Reports continued abstinence from tobacco. - Converted methylprednisolone 40mg IV q8h to prednisone 60mg daily - Continue Azithromycin 125mg IV anahy - Duonebs QID - Continue Guaifenesin 1200 mg PO twice daily - Oxygen via nasal cannula as needed - Prescription provided to CM for portable oxygen concentrator as patient having issues with running out of oxygen when out of her home - Potential discharge Friday 12/01 Heartburn - Tums prn - Started protonix 40mg PO daily Obstructive sleep apnea - Uses CPAP at home - Range 5-15 - Continue home parameters here DVT prophylaxis: Heparin 5000 units SQ q12H Diet: Regular Dispo: Med/surg with tele CODE: FULL (2) Acute exacerbation of chronic obstructive airways disease: (3) History of tobacco use: (4) Sleep apnea, obstructive: Admission and Anticipated Discharge Date Admission Date: November 27, 2020 Supervising Physician Co-Signing Physician Notes Attending attestation Pt seen and examined in concert with Dr. Jackson. In agreement with the documented findings as noted in the resident documentation with any exceptions or additions as noted here. Still short of breath with exertion but tolerating short ambulation with nasal cannula well. Has home O2 (ordered condenser through case mgmt on Tuesday). Minimal cough, afebrile. On examination, S1/S2 nl RRR no MCG. Highly decreased breath sounds diffusely marginally improved. Abd NT/ND BS+ve Acute on chronic hypoxic respiratory failure in the setting of COPD with acute exacerbation - O2 per protocol. Continue duoneb. Changed to PO prednisone 60mg today and tolerating well so far. Obtain O2 condenser @ home as O2 need appears to outstrip routine supply at home. Else see resident documentation as noted. Subjective Patient seen and evaluated at bedside this morning. No acute events overnight. Patient feels well this morning, only complaint is mild heartburn improved from yesterday. SOB continues to improve. No other complaints. Denies abdominal pain, nausea, vomiting, fever, chills, lightheadedness, dizziness. Review of Systems Review of Systems: See HPI Physical Exam Physical Exam: Constitutional: well-appearing, no acute distress CV: regular rhythm, no murmur appreciated, extremities well-perfused, no LE edema Resp: CTABL, poor air movement, no increased work of breathing MSK: no gross deformities appreciated Skin: warm, dry, no rash appreciated Neuro: AOx4, no focal neurological deficits appreciated Results & Data Results & Data ([facility]) Vital Signs (Past 12 Hours) Vital Signs Temp Pulse Pulse Resp BP Pulse Ox 11/30/20 04:37 36.5 C 73 18 149/84 H 93 11/30/20 02:00 83 11/29/20 23:46 37.1 C 84 18 147/74 H 90 11/29/20 23:16 83 11/29/20 19:37 18 89 L 11/29/20 19:04 37.0 C 86 22 146/71 H 95 Resident Activity Tracking Resident Involvement: Resident Care Provided Care Provided: Adult Hospital Medicine
[2020-11-30] MEDS: ALBUT/IPRATROP 3MG/0.5MG NEB 3 ML VIAL NEB SCH ×4 (07:02→19:59)
[2020-11-30 08:03] LABS: Basophils # (auto) 0.01 K/uL (0-0.2); Basophils % (auto) 0.1 %; Hematocrit (blood only) 40.3 % (37-47); Immature Granulocytes # (auto) 0.13 K/uL (0.00-0.02); Immature Granulocytes % (auto) 1.3 %; Lymphocytes # (auto) 0.59 K/uL (1.2-3.4); Mean Corpuscular Hemoglobin 31.4 pg (25-34); Mean Corpuscular Hgb Conc 34.7 g/dL (32-36); Mean Corpuscular Volume 90.4 fL (80-100); Mean Platelet Volume 9.2 fL (7.4-10.4); Neutrophils # (auto) 8.76 K/uL (1.4-6.5); Neutrophils % (auto) 88.6 %; Platelet Count 289 K/uL (130-400); RDW Coefficient of Variation 12.5 % (11.5-14.5); RDW Standard Deviation 41.3 fL (36.4-46.3); Red Blood Count 4.46 M/uL (4.2-5.4); White Blood Count 9.89 K/uL (4.8-10.8)
[2020-11-30] MEDS: ESCITALOPRAM OXALATE 10 MG TAB PO SCH (08:23)
[2020-11-30] MEDS: guaiFENesin 600 MG TABCR PO SCH ×2 (08:23→20:41)
[2020-11-30] MEDS: FEXOFENADINE HCL 180 MG TAB PO SCH (08:23)
[2020-11-30 08:31] LABS: BUN Creatinine Ratio 32.5 (10-20); Calcium 8.4 mg/dl (8.5-10.1); Creatinine Clr Calc Pharmacy 71.3 ml/min; Est GFR (African American) 106.2 ml/min; Est GFR (Non-African American) 91.6 ml/min; Potassium 4.3 mmol/L (3.5-5.1)
[2020-11-30] MEDS: HEPARIN SOD 5,000 UNIT/0.5 ML VIAL SQ SCH ×2 (09:46→20:45)
[2020-11-30] MEDS: predniSONE 20 MG TAB PO SCH (13:20)
[2020-11-30] MEDS: PANTOprazole 40 MG TAB PO SCH (18:36)
[2020-11-30] MEDS: AZITHROMYCIN 500 MG in DEXTROSE 5% 250 ML IV SCH (23:12)
[2020-12-01] MEDS: ALBUT/IPRATROP 3MG/0.5MG NEB 3 ML VIAL NEB SCH ×4 (02:01→14:33)
[2020-12-01 06:59] LABS: Basophils # (auto) 0.01 K/uL (0-0.2); Basophils % (auto) 0.1 %; Hematocrit (blood only) 38.4 % (37-47); Hemoglobin 13.4 g/dL (12.0-16.0); Immature Granulocytes % (auto) 1.9 %; Lymphocytes # (auto) 1.03 K/uL (1.2-3.4); Lymphocytes % (auto) 9.8 %; Mean Corpuscular Hemoglobin 31.6 pg (25-34); Mean Corpuscular Hgb Conc 34.9 g/dL (32-36); Mean Corpuscular Volume 90.6 fL (80-100); Mean Platelet Volume 9.2 fL (7.4-10.4); Monocytes # (auto) 1.07 K/uL (0.11-0.59); Monocytes % (auto) 10.1 %; Neutrophils # (auto) 8.24 K/uL (1.4-6.5); Neutrophils % (auto) 78.1 %; Platelet Count 277 K/uL (130-400); RDW Coefficient of Variation 12.6 % (11.5-14.5); RDW Standard Deviation 41.8 fL (36.4-46.3); Red Blood Count 4.24 M/uL (4.2-5.4); White Blood Count 10.55 K/uL (4.8-10.8)
[2020-12-01 07:28] LABS: BUN Creatinine Ratio 33.5 (10-20); Creatinine Clr Calc Pharmacy 74.7 ml/min; Est GFR (African American) 107.8 ml/min; Potassium 3.8 mmol/L (3.5-5.1)
[2020-12-01] MEDS: PANTOprazole 40 MG TAB PO SCH (09:07)
[2020-12-01] MEDS: FEXOFENADINE HCL 180 MG TAB PO SCH (09:07)
[2020-12-01] MEDS: guaiFENesin 600 MG TABCR PO SCH (09:07)
[2020-12-01] MEDS: ESCITALOPRAM OXALATE 10 MG TAB PO SCH (09:07)
[2020-12-01] MEDS: predniSONE 20 MG TAB PO SCH (09:07)
[2020-12-01] MEDS: HEPARIN SOD 5,000 UNIT/0.5 ML VIAL SQ SCH (09:08)
--- NOTE | 2020-12-01 10:10 | Hospitalist Progress Note ---
Date of Service December 01, 2020 Assessment & Plan Admission and Anticipated Discharge Date Admission Date: November 27, 2020 Results & Data Results & Data ([facility]) Vital Signs (Past 12 Hours) Vital Signs Temp Pulse Pulse Resp BP BP Pulse Ox 12/01/20 07:05 83 18 92 12/01/20 07:00 36.8 C 70 71 18 144/74 H 92 12/01/20 03:32 36.4 C L 72 18 142/73 H 97 12/01/20 02:01 84 20 97 11/30/20 23:34 87 11/30/20 23:33 36.5 C 83 20 155/78 H 92
--- NOTE | 2020-12-01 12:55 | Discharge Summary ---
Date of Service December 01, 2020 Admission HPI Per Admitting Provider The patient is a 65-year-old female with a past medical history including COPD, eustachian tube dysfunction, chronic respiratory failure, history of acute respiratory failure with hypoxia, paroxysmal atrial tachycardia, obstructive sleep apnea and history of tobacco use. The patient reports over the past few days she has had to put her oxygen on when she walks, and she has had to use her inhalers and nebulizers more frequently at home, with little improvement. She feels that the humidity and being exposed to her grandchildren who were sick recently, have caused her to have her present exacerbation. Principal Diagnosis COPD exacerbation Discharge Exam Constitutional: well-appearing, no acute distress CV: regular rhythm, no murmur appreciated, extremities well-perfused, no LE edema Resp: CTABL, no increased work of breathing MSK: no gross deformities appreciated Skin: warm, dry, no rash appreciated Neuro: AOx4, no focal neurological deficits appreciated Discharge Data Allergies Allergy/AdvReac Type Severity Reaction Status Date / Time aspirin Allergy Mild GI SYMPTOMS Verified 11/27/20 17:38 Consultations 11/27/20 18:35 ED Decision to Admit Stat Hospital Course (1) Acute on chronic respiratory failure with hypoxia: Masha Mcneil is a 60yo female with past medical history of COPD, chronic hypoxic respiratory failure with as needed oxygen at home who is admitted for COPD exacerbation. [id number] respiratory failure, COPD exacerbation - Received solumedrol 125mg IV in ED and a 1hr DuoNeb treatment with some improvement - Reports continued abstinence from tobacco. - Converted methylprednisolone 40mg IV q8h to prednisone 60mg daily -- plan for tapering 10mg every 2 days until finished - Azithromycin 500mg IV daily while admitted -- received 4 days of treatment at higher dosing, no need to continue at discharge - Duonebs QID in hospital - Continue usual inhalers at home at [place] -- attempted to start patient on combination inhaler but per her outpatient pharmacy, all of these inhalers will cost close to $200/month for her - Recommend discussing with Business Developer and/or PCP for possible options Heartburn - Tums prn - Protonix while admitted - Recommend discussing as outpatient if this continues to be an issue at home Obstructive sleep apnea - Uses CPAP at home - Range 5-15 Dispo: Home - Self Care CODE: FULL (2) Acute exacerbation of chronic obstructive airways disease: (3) History of tobacco use: (4) Sleep apnea, obstructive: Total Time Total Time Spent Total Time Spent (In Minutes): <30 Discharge Plan Discharge Items Patient Disposition: Home - Self-Care Reason For Visit: COPD EXACERBATION Discharge Diagnosis: COPD exacerbation Condition on Discharge: Good Activity: Per Instructions section Non-emergency contact: Primary Care Provider Call non-emergency contact if: you have any medication questions and your symptoms worsen Follow-up/Referrals: Roshan Crandall MD [Primary Care Provider] - 12/09/20 12:50 pm (PLEASE CALL YOUR PRIMARY CARE PROVIDER TO SCHEDULE A DISCHARGE FOLLOW-UP APPOINTMENT WITHIN 7-10 DAYS.) Diet: Regular Addtl Attending Provider Instructions: You were admitted to [facility] for an acute COPD exacerbation. You were initially treated with intravenous steroids, intravenous antibiotic, and nebulizers. You improved as expected and were thus transitioned to oral steroids. You will continue on this for the next 12 days as the dosage is tapered down. We also recommend that you add on a combination inhaler (e.g., Symbicort, Advair, Breo, Dulera) to help with your COPD symptoms. We have contacted your pharmacy and they have informed us that all of these inhalers will cost around the same for you. We recommend that you discuss this with your Business Developer or PCP for options. We recommend using your oxygen to maintain oxygen saturations above 88%, arianna cially while ambulating. In the short term you may require your oxygen around the clock to achieve this while you continue to improve from your exacerbation. Our mental health case manager have contacted your oxygen supply company for you to discuss the possibility of a portable oxygen concentrator or to check your equipment to make sure it is not dysfunctional. If you have worsening shortness of breath, chest pain, palpitations, or any other concerning signs/symptoms, please contact your PCP or return to the hospital for further evaluation. Pending Studies at Discharge: No Stand-Alone Forms: My [facility], Smoking Cessation Medications and DC Order Prescriptions: New prednisone 10 mg tablet See Rx Instructions mg .ROUTE .COMPLEX Qty: 42 RF: 0 fluticasone propion-salmeterol [Advair Diskus] 250-50 mcg/dose blister with device 1 inh inhalation BID Qty: 60 RF: 0 Continued albuterol sulfate [ProAir HFA] 90 mcg/actuation HFA aerosol inhaler 2 puff Inhalation Q4 PRN (Reason: Shortness Of Breath Or Wheezing) Qty: 8.5 RF: 3 ipratropium-albuterol 0.5 mg-3 mg(2.5 mg base)/3 mL solution for nebulization 3 ml INH QID PRN (Reason: Shortness Of Breath) Qty: 360 RF: 5 (DME) CPAP Machine Misc See Rx Instructions .MEDSUPPLY Qty: 1 RF: 0 Marilee-D 24 Hour 180-240 mg tablet extended release 24 hr 1 tab PO QAM Qty: 30 RF: 0 sodium chloride 7 % solution for nebulization 4 ml inhalation BID PRN (Reason: PER PT IF USE NEB RX.) RF: 0 Spiriva Respimat 2.5 mcg/actuation mist 2 puff INHALATION QAM PRN (Reason: Shortness Of Breath) RF: 0 lorazepam [Ativan] 1 mg tablet 0.5 mg PO Q6H PRN (Reason: anxiety) Qty: 10 RF: 0 escitalopram oxalate 10 mg tablet 10 mg PO DAILY RF: 0 hydroxyzine HCl 10 mg tablet 10 mg PO UD PRN (Reason: Anxiety) RF: 0 doxycycline hyclate 100 mg capsule 100 mg PO BID 5 Days Qty: 10 RF: 0 Discontinued prednisone 20 mg tablet 40 mg PO DAILY 5 Days Qty: 10 RF: 0 Discharge Orders: Discharge Order (Routine); Ordered 12/01/20 Ordered By: Shaan Jaramillo Admission Data Admit Date/Time: 11/27/20 18:59 Attending Provider: Roshan Ordonez Admit Provider: Blaze Smith Primary Care Provider: Roshan Crandall Other Providers: Blaze Smith Other Interventions: Discharge Summary Assessment (RN) Last Done: 12/01/20 13:43 Supervising Physician Co-Signing Physician Notes I personally examined the patient and verified all herzog points of history and exam, discussed case, and agree with decision making with Dr Rubio. Feeling better. Still some dyspnea on exertion, but otherwise improving. Vitals noted, in general she is awake and alert pleasant no distress. HEENT normocephalic atraumatic mucous membranes moist. Breathing unlabored no accessory muscle use good effort. Skin shows no rashes no pallor or icterus. Neuro without focal deficits. COPD exacerbationstable for home. Finish out a course of atypical coverage with antibiotics. Tapering course of steroids. Continue anticholinergic inhalerdiscussed initiation of long-acting beta agonist and inhaled corticosteroidshe notes cost has been an issuewe discussed the multitude of inhalers on the market, and sometimes the difficulty of knowing what is covered and what is notwe will try again, also discussed to obtain samples, given that that is how she is usually getting her Spiriva. Otherwise stable for discharge as above. Resident Activity Tracking Resident Involvement: Resident Care Provided Care Provided: Adult Hospital Medicine
--- NOTE | 2020-12-01 19:25 | Billing Data ---
Date of Service December 01, 2020 Coding Level of Care Code D/C DAY MANAGEMENT <30 MINS
== END 2020-12-01 14:37 | disposition home or self-care (01) | DRG 190 ==
LOC: ED 16:34 → SUATTDRO 18:59 → 2W 18:59
DX: J44.1 Chronic obstructive pulmonary disease with (acute) exacerbation; Z88.6 Allergy status to analgesic agent; J96.21 Acute and chronic respiratory failure with hypoxia; G47.33 Obstructive sleep apnea (adult) (pediatric); Z87.891 Personal history of nicotine dependence

== ENCOUNTER 2021-04-07 15:15 | Inpatient (IN) ==
[2021-04-07 15:44] LABS: Basophils # (auto) 0.02 K/uL (0-0.2); Basophils % (auto) 0.2 %; Hematocrit (blood only) 40.1 % (37-47); Hemoglobin 13.5 g/dL (12.0-16.0); Immature Granulocytes # (auto) 0.08 K/uL (0.00-0.02); Immature Granulocytes % (auto) 0.8 %; Mean Corpuscular Hemoglobin 30.4 pg (25-34); Mean Corpuscular Hgb Conc 33.7 g/dL (32-36); Mean Corpuscular Volume 90.3 fL (80-100); Mean Platelet Volume 8.9 fL (7.4-10.4); Monocytes # (auto) 0.09 K/uL (0.11-0.59); Monocytes % (auto) 0.9 %; Neutrophils # (auto) 9.25 K/uL (1.4-6.5); Neutrophils % (auto) 93.1 %; Platelet Count 356 K/uL (130-400); RDW Coefficient of Variation 13.2 % (11.5-14.5); RDW Standard Deviation 43.7 fL (36.4-46.3); Red Blood Count 4.44 M/uL (4.2-5.4); White Blood Count 9.94 K/uL (4.8-10.8)
[2021-04-07 15:56] LABS: INR 0.9 (0.9-1.1); Prothrombin Time 9.4 Seconds (9.0-12.0)
[2021-04-07 16:05] LABS: Alanine Aminotransferase 27 (12-78); Albumin Level 3.2 gm/dl (3.4-5.0); Aspartate Aminotransferase 12 U/L (15-37); BUN Creatinine Ratio 20.7 (10-20); Blood Urea Nitrogen 18 mg/dl (7-18); Calcium 8.3 mg/dl (8.5-10.1); Carbon Dioxide 26 mmol/L (21-32); Chloride 109 mmol/L (98-107); Est GFR (African American) 79.4 ml/min; Est GFR (Non-African American) 68.5 ml/min; Glucose 130 mg/dl (70-99); Magnesium 2.3 mg/dl (1.8-2.4); Potassium 3.8 mmol/L (3.5-5.1); Sodium 140 mmol/L (136-145)
[2021-04-07 16:10] LABS: Alkaline Phosphatase 95 U/L (45-117); Bilirubin,Total 0.3 mg/dl (0.2-1); Globulin 3.3 gm/dl (2.5-4.0); Total Protein 6.5 gm/dl (6.4-8.2); Troponin I < 0.015 ng/ml (0-0.045)
--- NOTE | 2021-04-07 16:29 | XRay Report ---
XR chest 1V portable CLINICAL HISTORY: Shortness of breath COMPARISON STUDY: Chest radiograph and chest CT March 27, 2021. FINDINGS: Emphysema is present. This is better depicted on prior chest CT. No pneumothorax or pleural effusion is noted. There is no consolidation to suggest pneumonia. There is no evidence for pulmonar y edema. Cardiac size is normal. Mediastinal contours are unremarkable. IMPRESSION: No acute cardiopulmonary findings. Emphysema. ACT 112: Negative or not required by law. Electronically signed by: Celestine Armendariz M.D. 04/07/2021 4:28 PM
[2021-04-07] MEDS ORDERED: methylPREDNISolone 125 MG/2 ML VIAL IV STA (17:22)
[2021-04-07] MEDS ORDERED: ALBUT/IPRATROP 3MG/0.5MG NEB 3 ML VIAL NEB ONE (17:22)
--- NOTE | 2021-04-07 18:04 | Emergency Department Note ---
Impression & Plan COPD exacerbation, Acute dyspnea, SOB (shortness of breath) ED Provider Note NAME: AVIVA MIMS AGE: 65 SEX: F : 1955 ARRIVES VIA: Walk-In INFORMANT: Patient, ED PROVIDER(S): Otf Hansen DO CHIEF COMPLAINT: Shortness of breath HPI: The patient is a 65-year-old female who presented to the emergency department for an evaluation of shortness of breath. The patient states that she is ongoing worsening symptoms over the course the last few weeks. She was seen in our facility approximately 10 days ago. At that time she had an complete work-up which included laboratory and radiographic studies and a CT of the chest. No definite cause for her shortness of breath could be found. She does have a history of COPD and was treated for COPD. She returns emergency department today with worsening symptoms. She is still taking steroids but steroids are weaning down. She states that she called her family doctor and was referred to the emergency department. She has no recent trauma. She has no recent travel. She denies having any lower extremity swelling or pain. She has had no hemoptysis. She states her symptoms are moderate to severe especially with any exertion. ROS: See above HPI for pertinent positives & negatives. A total of 10 systems reviewed and were otherwise negative. PAST MEDICAL HISTORY: See Below PAST SURGICAL HISTORY: See Below FAMILY HISTORY: See Below SOCIAL HISTORY: See Below HOME MEDICATIONS: See Below ALLERGIES: See Below VITALS: See Below PHYSICAL EXAMINATION: GENERAL: The patient is awake and alert. The patient is somewhat anxious appearing but overall comfortable. EYES: The conjunctivae are clear. The pupils are round and reactive. EARS, NOSE, MOUTH AND THROAT: The nose is without any evidence of any deformity. NECK: The neck is nontender and supple. RESPIRATORY: Diminished breath sounds are noted throughout. Significant conversational dyspnea was noted. CARDIOVASCULAR: Regular rate and rhythm noted there no murmurs rubs or gallops normal S1 normal S2. GASTROINTESTINAL: The abdomen is soft. Abdomen is nontender. MUSCULOSKELETAL/EXTREMITIES: There is no evidence of gross deformity full range of motion is noted in the hips and shoulders. SKIN: There is no obvious evidence of any rash. There is no calf tenderness. NEUROLOGIC: Patient is awake alert and oriented x3. MEDICAL DECISION MAKING: The patient is a 65-year-old female who presented to emergency department for an evaluation of difficulty breathing. The patient was in our facility recently for similar complaints. At that time she had a complete work-up including Covid swab and CT of the chest. She was determined to be suffering from COPD. The patient does of a history of COPD. She presented back to the emergency department today with severe shortness of breath. The patient appears to have significant dyspnea on exertion. I discussed the patient's laboratory and radiographic studies with her. She was treated with bronchodilator therapy as well as IV steroids. She was reevaluated multiple times but continues to have significant dyspnea on exertion. For this reason I discussed her case with the on-call [facility]ist. He is agreed to evaluate the patient in the emergency department for further management and disposition. Triage Nursing notes reviewed. Prior medical records reviewed Vital Signs: reviewed and remarkable for elevated blood pressure. Differential diagnosis: Reactive airway disease, pneumonia, pneumothorax, COPD, CHF, infections, cardiac ischemia, pulmonary embolism, musculoskeletal, gastrointestinal, as well as other pathologies. ER treatment provided: See below Diagnostics interpreted by me: ECG: EKG was obtained in the emergency department. My interpretation is normal sinus rhythm at 87 bpm. There is no ectopy. There was no acute ST segment abnormalities noted. This was compared to a tracing from March 272020. No changes were noted. Cardiac Monitoring: An order was placed for continuous cardiac monitoring. The monitor shows a rate of 98 bpm with sinus rhythm. Laboratory studies: As stated above and show below. Imaging studies: See below Consultation(s): I discussed this case with Dr. Smith who is on-call for [facility]ist group. Past Med/Surg History Medical History Asthma Chronic obstructive pulmonary disease with hypoxia 3L NC PRN Pulm - Min [place] COPD exacerbation Family history of colon cancer Sleep apnea, obstructive Yeast infection Surgical History H/O partial thyroidectomy 1990s d/t hemorrhaging?--unknown cause, no meds History of broken collarbone sx to repair History of carpal tunnel surgery of right wrist History of partial hysterectomy History of tooth extraction all teeth Family History Mother , from ovarian cancer Cancer Ovarian Sister Cancer Ovarian Father COPD (chronic obstructive pulmonary disease) Other No family history of adverse response to anesthesia Social History Smoking Status: Former smoker Tobacco Type: Cigarettes Age Started Using Tobacco: 17; Age Quit Using Tobacco: 1; packs per day: 1; Years Smoked: 43; Cigarettes Per Day: 20; Number of Years Since Quit: 1; Second Hand Exposure: No; Hx Alcohol Use: No Hx Substance Use: No Preferred Language: Tunisian 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 Ability: Effective [employer] Top Helper 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 Beliefs That Will Affect Care: None marital status: Current Living Situation: Family Current Living Situation Comment: Lives with daughter Virgen Feels Safe at Home: Yes Assistive Devices: Oxygen - Continuous Allergies Allergies Allergy/AdvReac Type Severity Reaction Status Date / Time aspirin Allergy Mild GI SYMPTOMS Verified 03/27/21 14:49 Home Meds Home Medications Medication Instructions Recorded Confirmed sodium chloride 7 % for 4 ml INHALATION BID PRN 09/23/20 04/07/21 nebulization tiotropium bromide 2.5 2 puff INHALATION QAM PRN 09/23/20 04/07/21 mcg/actuation mist for inhalation (Spiriva Respimat) escitalopram oxalate 10 mg tablet 10 mg PO DAILY 11/23/20 04/07/21 hydroxyzine HCl 10 mg tablet 10 mg PO DIRECTED PRN 11/23/20 04/07/21 fluticasone 250 mcg-salmeterol 50 1 inh INHALATION DIRECTED 01/23/21 04/07/21 mcg/dose blistr powdr for inhalation (Advair Diskus) Previous Rx's Medication Instructions Recorded CPAP Machine #1 ea 12/06/19 ipratropium 0.5 mg-albuterol 3 mg 3 ml INH QID PRN #360 ml 08/29/20 (2.5 mg base)/3 mL nebulization soln fexofenadine-pseudoephedrine ER 1 tab PO QAM #30 tab 10/02/20 180 mg-240 mg tablet,ext.release 24 hr (Marilee-D 24 Hour) famotidine 20 mg tablet (Pepcid) 20 mg PO HS PRN #60 tab 02/05/21 ProAir HFA 90 mcg/actuation 2 puff INHALATION Q4 PRN #8.5 gm NS 03/18/21 aerosol inhaler (albuterol sulfate) prednisone 10 mg tablet See Rx Instructions PO DAILY #36 04/03/21 tab Results & Data (ED) Vital Signs Vital Signs - 24 hr 04/07/21 15:15 04/07/21 15:24 04/07/21 17:30 Temperature 37.4 C Temperature Source Temporal Artery Scan Pulse Rate 91 H Pulse Rate [Apical] 84 Respiratory Rate 24 25 H Respiratory Effort / Characteristics Respiratory Depth Blood Pressure 161/93 H Blood Pressure [Right Arm] 189/131 H Blood Pressure Mean 115 Blood Pressure Mean [Right Arm] 150 Pulse Oximetry 92 93 Oxygen Delivery Method Aerosol Mask Room Air Room Air Sepsis Recent Fever Within 48 Hours No Sepsis New/Unexplained Change in Mental Status N/A Sepsis Action Taken by Nursing No Action Required 04/07/21 17:34 04/07/21 17:38 04/07/21 19:48 Temperature Temperature Source Pulse Rate Pulse Rate [Apical] 83 98 H Respiratory Rate 30 H 24 20 Respiratory Effort / Characteristics Spontaneous Non-Labored Spontaneous Respiratory Depth Normal Blood Pressure Blood Pressure [Right Arm] 166/108 H Blood Pressure Mean Blood Pressure Mean [Right Arm] 127 Pulse Oximetry 88 L 93 90 Oxygen Delivery Method Room Air Room Air Room Air Sepsis Recent Fever Within 48 Hours Sepsis New/Unexplained Change in Mental Status Sepsis Action Taken by Nursing 04/07/21 19:49 04/07/21 21:05 Temperature Temperature Source Pulse Rate Pulse Rate [Apical] Respiratory Rate 20 Respiratory Effort / Characteristics Non-Labored Spontaneous Respiratory Depth Blood Pressure Blood Pressure [Right Arm] Blood Pressure Mean Blood Pressure Mean [Right Arm] Pulse Oximetry 90 90 Oxygen Delivery Method Room Air Room Air Sepsis Recent Fever Within 48 Hours Sepsis New/Unexplained Change in Mental Status Sepsis Action Taken by Prison Medications Current Medication List: was personally reviewed by me Laboratory Data Attestation: I reviewed the patient's lab results. Result diagrams: 04/07/21 15:35 04/07/21 15:35 Lab Results 04/07/21 04/07/21 04/07/21 Range/Units 15:35 15:35 15:35 WBC 9.94 (4.8-10.8) K/uL RBC 4.44 (4.2-5.4) M/uL Hgb 13.5 (12.0-16.0) g/dL Hct 40.1 (37-47) % MCV 90.3 (80-100) fL MCH 30.4 (25-34) pg MCHC 33.7 (32-36) g/dL RDW Std Deviation 43.7 (36.4-46.3) fL RDW Coeff of Audrey 13.2 (11.5-14.5) % Plt Count 356 (130-400) K/uL MPV 8.9 (7.4-10.4) fL Immature Gran % (Auto) 0.8 % Neut % (Auto) 93.1 % Lymph % (Auto) 5.0 % Nobles % (Auto) 0.9 % Eos % (Auto) 0.0 % Baso % (Auto) 0.2 % Neut # (Auto) 9.25 H (1.4-6.5) K/uL Lymph # (Auto) 0.50 L (1.2-3.4) K/uL Nobles # (Auto) 0.09 L (0.11-0.59) K/uL Eos # (Auto) 0.00 (0-0.5) K/uL Baso # (Auto) 0.02 (0-0.2) K/uL Immature Gran # (Auto) 0.08 H (0.00-0.02) K/uL PT 9.4 (9.0-12.0) Seconds INR 0.9 (0.9-1.1) APTT 25.0 (21.0-31.0) Seconds PTT Ratio 1.0 Sodium 140 (136-145) mmol/L Potassium 3.8 (3.5-5.1) mmol/L Chloride 109 H (98-107) mmol/L Carbon Dioxide 26 (21-32) mmol/L Anion Gap 5.0 (3-11) BUN 18 (7-18) mg/dl Creatinine 0.88 (0.6-1.2) mg/dl Est Cr Clr Drug Dosing Not Reportable Est GFR ( Amer) 79.4 ml/min Est GFR (Non-Af Amer) 68.5 ml/min BUN/Creatinine Ratio 20.7 H (10-20) Glucose 130 H (70-99) mg/dl Calcium 8.3 L (8.5-10.1) mg/dl Magnesium 2.3 (1.8-2.4) mg/dl Total Bilirubin 0.3 (0.2-1) mg/dl AST 12 L (15-37) U/L ALT 27 (12-78) Alkaline Phosphatase 95 (45-117) U/L Troponin I < 0.015 (0-0.045) ng/ml Total Protein 6.5 (6.4-8.2) gm/dl Albumin 3.2 L (3.4-5.0) gm/dl Globulin 3.3 (2.5-4.0) gm/dl Albumin/Globulin Ratio 1.0 (0.9-2) SARS-CoV-2 (PCR) (Negative) Influenza Type A (PCR) (Neg) Influenza Type B (PCR) (Neg) RSV (RT-PCR) (Neg) 04/07/21 Range/Units 19:47 WBC (4.8-10.8) K/uL RBC (4.2-5.4) M/uL Hgb (12.0-16.0) g/dL Hct (37-47) % MCV (80-100) fL MCH (25-34) pg MCHC (32-36) g/dL RDW Std Deviation (36.4-46.3) fL RDW Coeff of Audrey (11.5-14.5) % Plt Count (130-400) K/uL MPV (7.4-10.4) fL Immature Gran % (Auto) % Neut % (Auto) % Lymph % (Auto) % Nobles % (Auto) % Eos % (Auto) % Baso % (Auto) % Neut # (Auto) (1.4-6.5) K/uL Lymph # (Auto) (1.2-3.4) K/uL Nobles # (Auto) (0.11-0.59) K/uL Eos # (Auto) (0-0.5) K/uL Baso # (Auto) (0-0.2) K/uL Immature Gran # (Auto) (0.00-0.02) K/uL PT (9.0-12.0) Seconds INR (0.9-1.1) APTT (21.0-31.0) Seconds PTT Ratio Sodium (136-145) mmol/L Potassium (3.5-5.1) mmol/L Chloride (98-107) mmol/L Carbon Dioxide (21-32) mmol/L Anion Gap (3-11) BUN (7-18) mg/dl Creatinine (0.6-1.2) mg/dl Est Cr Clr Drug Dosing Est GFR ( Amer) ml/min Est GFR (Non-Af Amer) ml/min BUN/Creatinine Ratio (10-20) Glucose (70-99) mg/dl Calcium (8.5-10.1) mg/dl Magnesium (1.8-2.4) mg/dl Total Bilirubin (0.2-1) mg/dl AST (15-37) U/L ALT (12-78) Alkaline Phosphatase (45-117) U/L Troponin I (0-0.045) ng/ml Total Protein (6.4-8.2) gm/dl Albumin (3.4-5.0) gm/dl Globulin (2.5-4.0) gm/dl Albumin/Globulin Ratio (0.9-2) SARS-CoV-2 (PCR) NEGATIVE (Negative) Influenza Type A (PCR) Negative (Neg) Influenza Type B (PCR) Negative (Neg) RSV (RT-PCR) Negative (Neg) Administered Medications Discontinued Medications Acetaminophen (Acetaminophen 500 Mg Tab) 1,000 mg PO NOW STA Stop: 04/07/21 19:20 Last Admin: 04/07/21 19:36 Dose: 1,000 mg Documented by: [id number] Acetaminophen (Acetaminophen 325 Mg Tab) 650 mg PO NOW STA Stop: 04/07/21 21:07 Last Admin: 04/07/21 21:27 Dose: Not Given Documented by: [id number] Albuterol (Albut/Ipratrop 3mg/0.5mg Neb 3 Ml Vial) 12 ml NEB ONE ONE; Protocol Stop: 04/07/21 17:23 Last Admin: 04/07/21 17:38 Dose: 12 ml Documented by: [id number] Calcium Carbonate (Calcium Carbonate 500 Mg Chewable Tab) 1,500 mg PO NOW STA Stop: 04/07/21 21:07 Last Admin: 04/07/21 21:26 Dose: 1,500 mg Documented by: [id number] Sodium Chloride (Nss 1000ml) 1,000 mls @ 999 mls/hr IV .Q1H1M ONE Stop: 04/07/21 20:19 Last Infusion: 04/07/21 21:27 Dose: 0 mls/hr Documented by: [id number] Admin: 04/07/21 19:40 Dose: 999 mls/hr Documented by: [id number] Methylprednisolone (Methylprednisolone 125 Mg/2 Ml Vial) 125 mg IV NOW STA Stop: 04/07/21 17:23 Last Admin: 04/07/21 17:32 Dose: 125 mg Documented by: [id number] Tramadol HCl (Tramadol Hcl 50 Mg Tablet) 50 mg PO NOW STA Stop: 04/07/21 21:09 Last Admin: 04/07/21 21:25 Dose: 50 mg Documented by: [id number] Imaging Data Radiologist's Impression: Chest X-Ray 04/07/21 15:26 XR chest 1V portable CLINICAL HISTORY: Shortness of breath COMPARISON STUDY: Chest radiograph and chest CT March 27, 2021. FINDINGS: Emphysema is present. This is better depicted on prior chest CT. No pneumothorax or pleural effusion is noted. There is no consolidation to suggest pneumonia. There is no evidence for pulmonary edema. Cardiac size is normal. Mediastinal contours are unremarkable. IMPRESSION: No acute cardiopulmonary findings. Emphysema. ACT 112: Negative or not required by law. Electronically signed by: Celestine Armendariz M.D. 04/07/2021 4:28 PM Discharge Plan Visit Data Chief Complaint: Shortness of Breath/Dyspnea Stated Complaint: SHORTNESS OF BREATH, HEADACHE, BLURRY ED Provider: Otf Hansen Discharge Problem: COPD exacerbation, Acute dyspnea, SOB (shortness of breath) Patient Disposition: Being Evaluated by Hospitalist Forms Stand Alone Forms: [facility] Prescriptions Prescriptions: No Action ipratropium-albuterol 0.5 mg-3 mg(2.5 mg base)/3 mL solution for nebulization 3 ml INH QID PRN (Reason: Shortness Of Breath) Qty: 360 RF: 5 albuterol sulfate [ProAir HFA] 90 mcg/actuation HFA aerosol inhaler 2 puff Inhalation Q4 PRN (Reason: Shortness Of Breath Or Wheezing) Qty: 8.5 RF: 3 prednisone 10 mg tablet See Rx Instructions PO DAILY Qty: 36 RF: 0 (DME) CPAP Machine Misc See Rx Instructions .MEDSUPPLY Qty: 1 RF: 0 Marilee-D 24 Hour 180-240 mg tablet extended release 24 hr 1 tab PO QAM Qty: 30 RF: 0 sodium chloride 7 % solution for nebulization 4 ml inhalation BID PRN (Reason: PER PT IF USE NEB RX.) RF: 0 Spiriva Respimat 2.5 mcg/actuation mist 2 puff INHALATION QAM PRN (Reason: Shortness Of Breath) RF: 0 escitalopram oxalate 10 mg tablet 10 mg PO DAILY RF: 0 hydroxyzine HCl 10 mg tablet 10 mg PO DIRECTED PRN (Reason: Anxiety) RF: 0 fluticasone propion-salmeterol [Advair Diskus] 250-50 mcg/dose blister with device 1 inh INHALATION DIRECTED RF: 0 famotidine [Pepcid] 20 mg tablet 20 mg PO HS PRN (Reason: gastric reflux) Qty: 60 RF: 0 Referrals Referrals: Roshan Crandall MD [Primary Care Provider] -
[2021-04-07] MEDS ORDERED: ACETAMINOPHEN 500 MG TAB PO STA (19:19)
[2021-04-07] MEDS ORDERED: SODIUM CHLORIDE 0.9% 1000ML 1,000 ML IV ONE (19:19)
--- NOTE | 2021-04-07 20:28 | History & Physical Report ---
Date of Service April 07, 2021 Assessment & Plan (1) Acute on chronic respiratory failure with hypoxia: Plan: Acute on chronic respiratory failure with hypoxia/COPD exacerbation/ALHAJI- Given [id number] mg IV in ED, and DuoNeb treatment Methylprednisolone 40 mg IV every 8 hours Duonebs every 4 hours while awake and every 2 hours when necessary. Guaifenesin extended release 1200 mg p.o. twice daily Azithromycin 500 mg IV daily Nasal cannula oxygen, target pulse ox 90% (2) COPD exacerbation: Plan: See above (3) Sleep apnea, obstructive: Plan: CPAP at bedtime as needed (4) Anxiety with depression: Plan: Continue Escitalopram and hydroxyzine History of Present Illness Chief Complaint: The patient presents to the emergency department with shortness of breath and dyspnea on exertion worsened since last seen in the emergency department 10 days ago, despite treatment with steroids and inhalers. Primary Care Provider: Roshan Crandall MD The patient is a 65-year-old female with a past medical history including COPD, chronic respiratory failure, PAT, obstructive sleep apnea, admissions for COPD exacerbation, depression, GERD, and tobacco use disorder. She presents with symptoms as noted above. Of note, COVID-19 testing was negative on 02/12, 03/27 and tonight 04/07/21. Allergies Allergy/AdvReac Type Severity Reaction Status Date / Time aspirin Allergy Mild GI SYMPTOMS Verified 03/27/21 14:49 Home Medications Medication Instructions Recorded Confirmed Type CPAP Machine #1 ea 12/06/19 01/14/21 Rx ipratropium 0.5 mg-albuterol 3 mg 3 ml INH QID PRN #360 ml 08/29/20 04/07/21 Rx (2.5 mg base)/3 mL nebulization soln sodium chloride 7 % for 4 ml INHALATION BID PRN 09/23/20 04/07/21 History nebulization tiotropium bromide 2.5 2 puff INHALATION QAM PRN 09/23/20 04/07/21 History mcg/actuation mist for inhalation (Spiriva Respimat) fexofenadine-pseudoephedrine ER 1 tab PO QAM #30 tab 10/02/20 04/07/21 Rx 180 mg-240 mg tablet,ext.release 24 hr (Marilee-D 24 Hour) escitalopram oxalate 10 mg tablet 10 mg PO DAILY 11/23/20 04/07/21 History hydroxyzine HCl 10 mg tablet 10 mg PO DIRECTED PRN 11/23/20 04/07/21 History fluticasone 250 mcg-salmeterol 50 1 inh INHALATION DIRECTED 01/23/21 04/07/21 History mcg/dose blistr powdr for inhalation (Advair Diskus) famotidine 20 mg tablet (Pepcid) 20 mg PO HS PRN #60 tab 02/05/21 04/07/21 Rx ProAir HFA 90 mcg/actuation 2 puff INHALATION Q4 PRN #8.5 gm NS 03/18/21 04/07/21 Rx aerosol inhaler (albuterol sulfate) prednisone 10 mg tablet See Rx Instructions PO DAILY #36 04/03/21 04/07/21 Rx tab Past Med/Surg History Medical History (Updated 04/08/21 @ 02:13 by Blaze Smith MD) Anxiety with depression Asthma Chronic obstructive pulmonary disease with hypoxia 3L NC PRN Pulm - Min [place] COPD exacerbation Family history of colon cancer Sleep apnea, obstructive Yeast infection Surgical History H/O partial thyroidectomy 1990s d/t hemorrhaging?--unknown cause, no meds History of broken collarbone sx to repair History of carpal tunnel surgery of right wrist History of partial hysterectomy History of tooth extraction all teeth Family History Mother , from ovarian cancer Cancer Ovarian Sister Cancer Ovarian Father COPD (chronic obstructive pulmonary disease) Other No family history of adverse response to anesthesia Social History Smoking Status: Former smoker Tobacco Type: Cigarettes Age Started Using Tobacco: 17; Age Quit Using Tobacco: 1; packs per day: 1; Years Smoked: 43; Cigarettes Per Day: 20; Number of Years Since Quit: 1; Second Hand Exposure: No; Hx Alcohol Use: No Hx Substance Use: No Preferred Language: Irish 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 Ability: Effective Rent Collector 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 Beliefs That Will Affect Care: None marital status: Current Living Situation: Family Current Living Situation Comment: Lives with daughter Virgen Feels Safe at Home: Yes Assistive Devices: Oxygen - Continuous Review of Systems Review of Systems: The patient denies chest pain, palpitations, cough, lower extremity swelling, sore throat, fevers, chills, sweats, nausea, vomiting, diarrhea , constipation, abdominal pain, pelvic pain, blood in urine or stool, dysuria, urinary frequency or urgency, lightheadedness, dizziness, headache, memory loss, loss of consciousness, rash, abnormal bruising or bleeding, imbalance, focal or generalized weakness, numbness or tingling in arms or legs, generalized arthralgias or myalgias, back or neck pain, or night sweats. The review of systems is otherwise negative other than for that already noted above, and at least 10 systems have been reviewed. Physical Exam Physical Exam: The patient is awake, alert and oriented 3, well developed and well nourished, normocephalic and atraumatic, lying in bed and in no acute distress. HEENT--PERRL, EOMI, mucous membranes and oropharynx normal. Neck--supple. No JVD. No bruits. Thyroid normal, trachea midline, no adenopathy. Heart--normal S1 and S2. No murmurs, rubs or gallops. Lungs--decreased breath sounds throughout. No respiratory distress, no accessory muscle use. Abdomen--normal bowel sounds and soft. Nontender. Nondistended, no hernias or masses, no organomegaly. Extremities--no cyanosis or clubbing. No edema. Dermatologic--normal skin turgor, normal color, no abnormal lymph nodes, no rash. Neurologic--cranial nerves II through XII grossly intact. Rheumatologic--normal range of motion. Psychiatric--normal affect. Results & Data Results & Data ([facility]) Vital Signs (Past 12 Hours) Vital Signs Temp Pulse Pulse Resp BP BP Pulse Ox 04/07/21 19:49 90 04/07/21 19:48 98 H 20 166/108 H 90 04/07/21 17:38 83 24 93 04/07/21 17:34 30 H 88 L 04/07/21 17:30 84 25 H 189/131 H 93 04/07/21 15:24 37.4 C 91 H 24 161/93 H 92 Laboratory Results Laboratory Results WBC 9.94 K/uL (4.8-10.8) 04/07/21 15:35 RBC 4.44 M/uL (4.2-5.4) 04/07/21 15:35 Hgb 13.5 g/dL (12.0-16.0) 04/07/21 15:35 Hct 40.1 % (37-47) 04/07/21 15:35 MCV 90.3 fL (80-100) 04/07/21 15:35 MCH 30.4 pg (25-34) 04/07/21 15:35 MCHC 33.7 g/dL (32-36) 04/07/21 15:35 RDW Std Deviation 43.7 fL (36.4-46.3) 04/07/21 15:35 RDW Coeff of Audrey 13.2 % (11.5-14.5) 04/07/21 15:35 Plt Count 356 K/uL (130-400) 04/07/21 15:35 MPV 8.9 fL (7.4-10.4) 04/07/21 15:35 Immature Gran % (Auto) 0.8 % 04/07/21 15:35 Neut % (Auto) 93.1 % 04/07/21 15:35 Lymph % (Auto) 5.0 % 04/07/21 15:35 Randolph % (Auto) 0.9 % 04/07/21 15:35 Eos % (Auto) 0.0 % 04/07/21 15:35 Baso % (Auto) 0.2 % 04/07/21 15:35 Neut # (Auto) 9.25 K/uL (1.4-6.5) H 04/07/21 15:35 Lymph # (Auto) 0.50 K/uL (1.2-3.4) L 04/07/21 15:35 Randolph # (Auto) 0.09 K/uL (0.11-0.59) L 04/07/21 15:35 Eos # (Auto) 0.00 K/uL (0-0.5) 04/07/21 15:35 Baso # (Auto) 0.02 K/uL (0-0.2) 04/07/21 15:35 Immature Gran # (Auto) 0.08 K/uL (0.00-0.02) H 04/07/21 15:35 PT 9.4 Seconds (9.0-12.0) 04/07/21 15:35 INR 0.9 (0.9-1.1) 04/07/21 15:35 APTT 25.0 Seconds (21.0-31.0) 04/07/21 15:35 PTT Ratio 1.0 04/07/21 15:35 Sodium 140 mmol/L (136-145) 04/07/21 15:35 Potassium 3.8 mmol/L (3.5-5.1) 04/07/21 15:35 Chloride 109 mmol/L (98-107) H 04/07/21 15:35 Carbon Dioxide 26 mmol/L (21-32) 04/07/21 15:35 Anion Gap 5.0 (3-11) 04/07/21 15:35 BUN 18 mg/dl (7-18) 04/07/21 15:35 Creatinine 0.88 mg/dl (0.6-1.2) 04/07/21 15:35 Est Cr Clr Drug Dosing Not Reportable 04/07/21 15:35 Est GFR ( Amer) 79.4 ml/min 04/07/21 15:35 Est GFR (Non-Af Amer) 68.5 ml/min 04/07/21 15:35 BUN/Creatinine Ratio 20.7 (10-20) H 04/07/21 15:35 Glucose 130 mg/dl (70-99) H 04/07/21 15:35 Calcium 8.3 mg/dl (8.5-10.1) L 04/07/21 15:35 Magnesium 2.3 mg/dl (1.8-2.4) 04/07/21 15:35 Total Bilirubin 0.3 mg/dl (0.2-1) 04/07/21 15:35 AST 12 U/L (15-37) L 04/07/21 15:35 ALT 27 (12-78) 04/07/21 15:35 Alkaline Phosphatase 95 U/L (45-117) 04/07/21 15:35 Troponin I < 0.015 ng/ml (0-0.045) 04/07/21 15:35 Total Protein 6.5 gm/dl (6.4-8.2) 04/07/21 15:35 Albumin 3.2 gm/dl (3.4-5.0) L 04/07/21 15:35 Globulin 3.3 gm/dl (2.5-4.0) 04/07/21 15:35 Albumin/Globulin Ratio 1.0 (0.9-2) 04/07/21 15:35 SARS-CoV-2 (PCR) NEGATIVE (Negative) 04/07/21 19:47 Influenza Type A (PCR) Negative (Neg) 04/07/21 19:47 Influenza Type B (PCR) Negative (Neg) 04/07/21 19:47 RSV (RT-PCR) Negative (Neg) 04/07/21 19:47 Impressions Chest X-Ray 04/07/21 15:26 XR chest 1V portable CLINICAL HISTORY: Shortness of breath COMPARISON STUDY: Chest radiograph and chest CT March 27, 2021. FINDINGS: Emphysema is present. This is better depicted on prior chest CT. No pneumothorax or pleural effusion is noted. There is no consolidation to suggest pneumonia. There is no evidence for pulmonary edema. Cardiac size is normal. Mediastinal contours are unremarkable. IMPRESSION: No acute cardiopulmonary findings. Emphysema. ACT 112: Negative or not required by law. Electronically signed by: Celestine Armendariz M.D. 04/07/2021 4:28 PM Code Status & VTE Plan Code Status Full code VTE Prophylaxis Plan VTE Prophylaxis will be ordered: Yes PG Care Time/CCT Total # of Minutes Spent Total Time Spent with Patient: Total time spent is greater than 50% in coordination of care (as documented) at patient's floor/unit and/or counseling patient: Coding Level of Care Code 71464 Initial Inpt Care Lvl 3 Diagnoses Acute on chronic respiratory failure with hypoxia J96.21 COPD exacerbation J44.1 Sleep apnea, obstructive G47.33 Anxiety with depression F41.8
[2021-04-07 20:36] LABS: Influenza A virus by PCR Negative (Neg); Influenza B virus by PCR Negative (Neg); RSV by PCR Negative (Neg); SARS CoV2 RNA(COVID-19) InHosp NEGATIVE (Negative)
[2021-04-07] MEDS ORDERED: CALCIUM CARBONATE 500 MG CHEWABLE TAB PO STA (21:06)
[2021-04-07] MEDS ORDERED: ACETAMINOPHEN 325 MG TAB PO STA (21:06)
[2021-04-07] MEDS ORDERED: traMADol HCL 50 MG TABLET PO STA (21:08)
[2021-04-07] MEDS ORDERED: FAMOTIDINE 20 MG TAB PO PRN (23:14)
[2021-04-07] MEDS ORDERED: ONDANSETRON INJ 2 MG/ML 2 ML VIAL IV PRN (23:14)
[2021-04-08] MEDS ORDERED: PATIENT'S HEIGHT AND/OR WEIGHT NEEDED STA (00:06)
[2021-04-08] MEDS ORDERED: UMECLIDINIUM BROMIDE 62.5MCG/BLISTER 7 PUFFS/INHALER INH PRN (00:09)
[2021-04-08] MEDS: guaiFENesin 600 MG TABCR PO SCH ×3 (00:09→20:24)
[2021-04-08] MEDS: methylPREDNISolone 40 MG in SYRINGE 0 ML IV SCH ×3 (02:00→17:57)
[2021-04-08] MEDS: ALBUT/IPRATROP 3MG/0.5MG NEB 3 ML VIAL NEB SCH ×4 (07:53→19:41)
[2021-04-08] MEDS: ESCITALOPRAM OXALATE 10 MG TAB PO SCH (07:58)
[2021-04-08] MEDS: AZITHROMYCIN 500 MG in DEXTROSE 5% 250 ML IV SCH (07:58)
[2021-04-08] MEDS: ENOXAPARIN INJ 30 MG/0.3 ML SYR SQ SCH (07:58)
[2021-04-08] MEDS: FLUTICASONE/VILANTEROL 200/25MCG 14 PUFFS/INHALER INH SCH (07:59)
[2021-04-08] MEDS: FEXOFENADINE HCL 180 MG TAB PO SCH (09:08)
[2021-04-08] MEDS: ACETAMINOPHEN 325 MG TAB PO PRN ×2 (09:11→15:09)
[2021-04-08] MEDS ORDERED: KETOROLAC TROMETHAMINE 15 MG/ML VIAL IV ONE (15:16)
--- NOTE | 2021-04-08 15:20 | Hospitalist Progress Note ---
Date of Service April 08, 2021 Assessment & Plan (1) Acute on chronic respiratory failure with hypoxia: Plan: Acute on chronic respiratory failure with hypoxia/COPD exacerbation. - Continue methylprednisolone 40 mg IV every 8 hours - Continue Duonebs standing and PRN - Continue guaifenesin extended release 1200 mg p.o. twice daily - Continue azithromycin - Nasal cannula oxygen, target pulse ox 90% (2) COPD exacerbation: Plan: See above (3) Sleep apnea, obstructive: Plan: CPAP at bedtime as needed (4) Anxiety with depression: Plan: - Continue escitalopram and hydroxyzine (5) DVT prophylaxis: Plan: Lovenox 30 mg SQ daily Admission and Anticipated Discharge Date Admission Date: April 07, 2021 Subjective Doing some better, but still cannot really even walk to bathroom and back. Still with headache today. Reports no fevers/chills, chest pain, abdominal pain, nausea, or vomiting. Physical Exam Constitutional: WD/WN, vitals as above Eyes: EOM intact bilaterally; no conjunctival abnormality ENMT: external ear and nose normal, oropharynx normal Neck: trachea midline, no thyromegaly normal visual inspection Respiratory: normal respiratory effort, lungs clear to auscultation no respiratory distress Cardiovascular: RRR, no murmur, no edema Gastrointestinal (Abdomen): Inspection/Auscultation: abdomen normal to inspection; abdomen not distended Musculoskeletal: no cyanosis or clubbing, extremities motor strength 5/5 Skin: no rashes, warm and dry Neurologic: moves all extremities and awake Psychiatric: Orientation: alert, oriented to person and cooperative Results & Data Results & Data ([facility]) Vital Signs (Past 12 Hours) Vital Signs Pulse Resp BP Pulse Ox 04/08/21 14:30 88 20 96 04/08/21 10:47 82 19 91 04/08/21 07:54 88 19 90 04/08/21 06:27 83 18 166/91 H 90 PG Care Time/CCT Total # of Minutes Spent Total Time Spent with Patient: Total time spent is greater than 50% in coordination of care (as documented) at patient's floor/unit and/or counseling patient: Coding Level of Care Code 17676 Subseq Hosp Care Lvl 2 Diagnoses Acute on chronic respiratory failure with hypoxia J96.21 COPD exacerbation J44.1 Sleep apnea, obstructive G47.33 Anxiety with depression F41.8 DVT prophylaxis Z29.9
[2021-04-09] MEDS: methylPREDNISolone 40 MG in SYRINGE 0 ML IV SCH ×2 (02:53→10:47)
--- NOTE | 2021-04-09 06:43 | Electrocardiogram Report ---
Test Reason : Blood Pressure : / mmHG Vent. Rate : 087 BPM Atrial Rate : 087 BPM P-R Int : 126 ms QRS Dur : 070 ms QT Int : 366 ms P-R-T Axes : 078 076 081 degrees QTc Int : 440 ms Poor data quality, interpretation may be adversely affected Normal sinus rhythm Normal ECG When compared with ECG of 27-MAR-2021 11:51, No significant change was found Confirmed by Marcello Rodríguez ([id number]) on 04/09/2021 6:43:26 AM Referred By: Confirmed By:Marcello Rodríguez
[2021-04-09] MEDS: ALBUT/IPRATROP 3MG/0.5MG NEB 3 ML VIAL NEB SCH (07:10)
[2021-04-09] MEDS: ENOXAPARIN INJ 30 MG/0.3 ML SYR SQ SCH (08:02)
[2021-04-09] MEDS: guaiFENesin 600 MG TABCR PO SCH ×2 (08:03→20:30)
[2021-04-09] MEDS: FEXOFENADINE HCL 180 MG TAB PO SCH (08:04)
[2021-04-09] MEDS: FLUTICASONE/VILANTEROL 200/25MCG 14 PUFFS/INHALER INH SCH (08:05)
[2021-04-09] MEDS: ESCITALOPRAM OXALATE 10 MG TAB PO SCH (08:06)
[2021-04-09] MEDS: AZITHROMYCIN 500 MG in DEXTROSE 5% 250 ML IV SCH (08:17)
[2021-04-09] MEDS: FAMOTIDINE 20 MG TAB PO PRN (12:05)
--- NOTE | 2021-04-09 16:47 | Hospitalist Progress Note ---
Date of Service April 09, 2021 Assessment & Plan (1) Acute on chronic respiratory failure with hypoxia: Plan: Acute on chronic respiratory failure with hypoxia/COPD exacerbation. - Switch to oral steroids tomorrow. - Continue Duonebs standing and PRN - Continue guaifenesin extended release 1200 mg p.o. twice daily - Continue azithromycin (finish with tomorrow's dose) - Nasal cannula oxygen, target pulse ox 90% -> Now on room air. (2) COPD exacerbation: Plan: See above (3) Sleep apnea, obstructive: Plan: CPAP at bedtime as needed (4) Anxiety with depression: Plan: - Continue escitalopram and hydroxyzine (5) DVT prophylaxis: Plan: Lovenox 30 mg SQ daily Admission and Anticipated Discharge Date Admission Date: April 07, 2021 Subjective Doing some better today. Able to walk to the bathroom and back, but gets very short of breath. Reports no fevers/chills, chest pain, abdominal pain, nausea, or vomiting. Physical Exam Constitutional: WD/WN, vitals as above Eyes: EOM intact bilaterally; no conjunctival abnormality ENMT: external ear and nose normal, oropharynx normal Neck: trachea midline, no thyromegaly normal visual inspection Respiratory: normal respiratory effort, lungs clear to auscultation no respiratory distress Cardiovascular: RRR, no murmur, no edema Gastrointestinal (Abdomen): Inspection/Auscultation: abdomen normal to inspection; abdomen not distended Musculoskeletal: no cyanosis or clubbing, extremities motor strength 5/5 Skin: no rashes, warm and dry Neurologic: moves all extremities and awake Psychiatric: Orientation: alert, oriented to person and cooperative Results & Data Results & Data ([facility]) Vital Signs (Past 12 Hours) Vital Signs Temp Pulse Pulse Pulse Resp BP Pulse Ox 04/09/21 16:09 36.6 C 79 18 152/69 H 90 04/09/21 11:24 37.1 C 93 H 20 176/97 H 92 04/09/21 07:48 37.0 C 79 18 146/75 H 95 04/09/21 07:10 71 18 04/09/21 07:03 80 PG Care Time/CCT Total # of Minutes Spent Total Time Spent with Patient: Total time spent is greater than 50% in coordination of care (as documented) at patient's floor/unit and/or counseling patient: Coding Level of Care Code 84710 Subseq Hosp Care Lvl 2 Diagnoses Acute on chronic respiratory failure with hypoxia J96.21 COPD exacerbation J44.1 Sleep apnea, obstructive G47.33 Anxiety with depression F41.8 DVT prophylaxis Z29.9
[2021-04-09] MEDS: ALBUT/IPRATROP 3MG/0.5MG NEB 3 ML VIAL NEB PRN (16:54)
[2021-04-10] MEDS: ALBUT/IPRATROP 3MG/0.5MG NEB 3 ML VIAL NEB PRN ×3 (01:37→20:26)
[2021-04-10 06:35] LABS: Hematocrit (blood only) 38.8 % (37-47); Hemoglobin 12.9 g/dL (12.0-16.0); Mean Corpuscular Hemoglobin 30.1 pg (25-34); Mean Corpuscular Hgb Conc 33.2 g/dL (32-36); Mean Corpuscular Volume 90.4 fL (80-100); Mean Platelet Volume 9.1 fL (7.4-10.4); Platelet Count 292 K/uL (130-400); RDW Coefficient of Variation 13.2 % (11.5-14.5); RDW Standard Deviation 43.2 fL (36.4-46.3); Red Blood Count 4.29 M/uL (4.2-5.4); White Blood Count 11.46 K/uL (4.8-10.8)
[2021-04-10 06:54] LABS: BUN Creatinine Ratio 33.4 (10-20); Creatinine Clr Calc Pharmacy 59.5 ml/min; Est GFR (African American) 93.3 ml/min; Est GFR (Non-African American) 80.5 ml/min; Magnesium 2.4 mg/dl (1.8-2.4); Potassium 3.7 mmol/L (3.5-5.1)
[2021-04-10] MEDS: guaiFENesin 600 MG TABCR PO SCH ×2 (08:19→21:02)
[2021-04-10] MEDS: ESCITALOPRAM OXALATE 10 MG TAB PO SCH (08:19)
[2021-04-10] MEDS: predniSONE 20 MG TAB PO SCH (08:19)
[2021-04-10] MEDS: FLUTICASONE/VILANTEROL 200/25MCG 14 PUFFS/INHALER INH SCH (08:20)
[2021-04-10] MEDS: ENOXAPARIN INJ 30 MG/0.3 ML SYR SQ SCH (08:20)
[2021-04-10] MEDS: AZITHROMYCIN 500 MG in DEXTROSE 5% 250 ML IV SCH (08:22)
--- NOTE | 2021-04-10 08:33 | Hospitalist Progress Note ---
Date of Service April 10, 2021 Assessment & Plan (1) Acute on chronic respiratory failure with hypoxia: Plan: Acute on chronic respiratory failure with hypoxia/COPD exacerbation. - Switch to oral steroids 04/10/2021 - Continue Duonebs standing and PRN - Continue guaifenesin extended release 1200 mg p.o. twice daily - Continue azithromycin (finish 04/10/2021 - Nasal cannula oxygen, target pulse ox 90% -> Now on room air. (2) COPD exacerbation: Plan: See above (3) Sleep apnea, obstructive: Plan: CPAP at bedtime as needed (4) Anxiety with depression: Plan: - Continue escitalopram and hydroxyzine added some buspirone with some improvement of her symptoms we will see if this continues may be something we need to add more permanent for the patient (5) DVT prophylaxis: Plan: Lovenox 30 mg SQ daily Admission and Anticipated Discharge Date Admission Date: April 07, 2021 Subjective Patient complaining of feeling of fluttering in her chest this does not correspond with tachycardia seen on the monitor. This did improve with buspirone her respiratory status seems chronic and stable at this time Review of Systems Review of Systems: Mild distress and fatigue no headache, no visual changes no speech or swallowing issues no chest pain, complains of feeling of fluttering in her chest Patient states she is at her baseline shortness of breath, currently no cough or wheezes no abdominal pain, nausea or vomiting, diarrhea or constipation no dysuria, hematuria or frequency no focal joint pain or swelling no back pain, CVA tenderness or radicular pain no bruising, bleeding or rashes no focal signs of weakness or numbness or altered sensation No complaints of anxiety but definitely considering this chest discomfort to possibly be a physical manifestation of anxiety Physical Exam Physical Exam: The patient appeared thin and chronically ill Vital signs as documented. Head exam is normocephalic atraumatic Neck is without JVD, thyromegaly, or carotid bruits. Lungs are overall with poor air movement no focal loss no wheezes no egophony Cardiac exam, Rhythm is regular.. No murmurs, rubs or gallops. Abdominal exam reveals normal bowel sounds, soft non tender, no masses Extremities are nonedematous and both pedal pulses are present Neurologic exam is alert and oriented, no focal loss of strength or sensation Skin is without bruises or rashes Psychologically is with concerns for anxiety Results & Data Results & Data ([facility]) Vital Signs (Past 12 Hours) Vital Signs Temp Pulse Pulse Resp BP Pulse Ox 04/10/21 08:09 71 04/10/21 08:00 98.2 F 73 18 124/70 92 04/10/21 03:25 98.2 F 81 20 151/75 H 93 04/10/21 01:37 75 18 95 04/09/21 23:15 98.1 F 81 16 141/60 H 91 04/09/21 22:21 79 PG Care Time/CCT Total # of Minutes Spent Total Time Spent with Patient: Total time spent is greater than 50% in coordination of care (as documented) at patient's floor/unit and/or counseling patient: Coding Level of Care Code 04565 Subseq Hosp Care Lvl 2 Diagnoses Acute on chronic respiratory failure with hypoxia J96.21 COPD exacerbation J44.1 Sleep apnea, obstructive G47.33 Anxiety with depression F41.8 DVT prophylaxis Z29.9
[2021-04-10] MEDS: FEXOFENADINE HCL 180 MG TAB PO SCH (09:15)
[2021-04-10] MEDS ORDERED: busPIRone 5 MG TAB PO ONE (11:45)
--- NOTE | 2021-04-10 11:56 | XRay Report ---
XR chest 1V portable CLINICAL HISTORY: eval for pneumothorax TECHNIQUE: Single frontal radiograph of the chest was obtained. Comparison: Comparison is made to chest one view 04/07/2021 FINDINGS: No lines and tubes are seen. The cardiomediastinal silhouette is normal. Lungs are emphysematous but there is no evidence of airspace opacity. No evidence of pleural effusion or pneumothorax. IMPRESSION: No acute chest disease. In particular, no evidence of pneumothorax. ACT 112: Negative or not required by law. Electronically signed by: Darrell Sanchez M.D. 04/10/2021 11:55 AM
[2021-04-11] MEDS: ENOXAPARIN INJ 30 MG/0.3 ML SYR SQ SCH (07:38)
[2021-04-11] MEDS: FEXOFENADINE HCL 180 MG TAB PO SCH (07:38)
[2021-04-11] MEDS: AZITHROMYCIN 500 MG in DEXTROSE 5% 250 ML IV SCH (07:38)
[2021-04-11] MEDS: FLUTICASONE/VILANTEROL 200/25MCG 14 PUFFS/INHALER INH SCH (07:39)
[2021-04-11] MEDS: guaiFENesin 600 MG TABCR PO SCH ×2 (07:39→20:11)
[2021-04-11] MEDS: ESCITALOPRAM OXALATE 10 MG TAB PO SCH (07:39)
[2021-04-11] MEDS: predniSONE 20 MG TAB PO SCH (07:39)
[2021-04-11] MEDS: ACETAMINOPHEN 325 MG TAB PO PRN (07:56)
[2021-04-11 08:04] LABS: Creatinine Clr Calc Pharmacy 72.7 ml/min; Est GFR (African American) 108.3 ml/min; Est GFR (Non-African American) 93.5 ml/min
--- NOTE | 2021-04-11 08:06 | Hospitalist Progress Note ---
Date of Service April 11, 2021 Assessment & Plan (1) Acute on chronic respiratory failure with hypoxia: Plan: Acute on chronic respiratory failure with hypoxia/COPD exacerbation. subjectively does not feel well - Switch to oral steroids 04/10/2021 - in the past the pt states she did better with spiriva, will change to that anticholinergic - also add formoterol nebs, challenging patient, has some anxiety associated with chronic lung disease, started low dose buspar as 5 mg dose did make her tired - Continue guaifenesin extended release 1200 mg p.o. twice daily - Continue azithromycin (finish 04/10/2021 - Nasal cannula oxygen, target pulse ox 90% -> Now on room air. (2) COPD exacerbation: Plan: See above (3) Sleep apnea, obstructive: Plan: CPAP at bedtime as needed (4) Anxiety with depression: Plan: - Continue escitalopram and hydroxyzine added some buspirone with some improvement of her symptoms (5) DVT prophylaxis: Plan: Lovenox 30 mg SQ daily Admission and Anticipated Discharge Date Admission Date: April 07, 2021 Subjective pt has concerns about feeling too short of breath to be at home, is typically not on continuous oxygen, did have a poor PFT in 2019, typically sees Dr Coronado Review of Systems Review of Systems: Mild distress and fatigue no headache, no visual changes no speech or swallowing issues no chest pain, pressure or palpitations shortness of breath, no cough or wheezes no abdominal pain, nausea or vomiting, diarrhea or constipation no dysuria, hematuria or frequency no focal joint pain or swelling no back pain, CVA tenderness or radicular pain no bruising, bleeding or rashes no focal signs of weakness or numbness or altered sensation no complaints of feeling palpitiations, maybe anxiety Physical Exam Physical Exam: The patient appeared thin and underweight Vital signs as documented. Head exam is normocephalic atraumatic Neck is without JVD, thyromegaly, or carotid bruits. Lungs overall very poor air movement Cardiac exam, Rhythm is regular.. No murmurs, rubs or gallops. Abdominal exam reveals normal bowel sounds, soft non tender, no masses Extremities are nonedematous and both pedal pulses are present Neurologic exam is alert and oriented, no focal loss of strength or sensation Skin is without bruises or rashes Psychologically is with concerns for anxiety Results & Data Results & Data ([facility]) Vital Signs (Past 12 Hours) Vital Signs Temp Pulse Pulse Resp BP BP Pulse Ox 04/11/21 06:59 97.9 F 68 19 155/83 H 97 04/11/21 04:53 87 04/11/21 04:30 97.9 F 63 18 165/79 H 96 04/11/21 03:44 97.9 F 66 18 161/85 H 96 04/10/21 23:17 98.2 F 83 18 133/65 96 04/10/21 20:26 69 18 96 PG Care Time/CCT Total # of Minutes Spent Total Time Spent with Patient: Total time spent is greater than 50% in coordination of care (as documented) at patient's floor/unit and/or counseling patient: Coding Level of Care Code 46317 Subseq Hosp Care Lvl 2 Diagnoses Acute on chronic respiratory failure with hypoxia J96.21 COPD exacerbation J44.1 Sleep apnea, obstructive G47.33 Anxiety with depression F41.8 DVT prophylaxis Z29.9
[2021-04-11] MEDS: ALBUT/IPRATROP 3MG/0.5MG NEB 3 ML VIAL NEB PRN ×2 (11:43→19:26)
[2021-04-11] MEDS: hydrOXYzine HCl 10 MG TAB PO PRN (14:25)
[2021-04-11] MEDS: busPIRone 5 MG TAB PO SCH ×2 (16:02→20:11)
[2021-04-11] MEDS: FORMOTEROL 20 MCG/2 ML VIAL NEB SCH (19:26)
[2021-04-12] MEDS: guaiFENesin 600 MG TABCR PO SCH ×2 (07:20→21:02)
[2021-04-12] MEDS: busPIRone 5 MG TAB PO SCH ×2 (07:20→21:02)
[2021-04-12] MEDS: predniSONE 20 MG TAB PO SCH (07:21)
[2021-04-12] MEDS: FEXOFENADINE HCL 180 MG TAB PO SCH (07:21)
[2021-04-12] MEDS: ESCITALOPRAM OXALATE 10 MG TAB PO SCH (07:21)
[2021-04-12] MEDS: UMECLIDINIUM BROMIDE 62.5MCG/BLISTER 7 PUFFS/INHALER INH SCH (07:21)
[2021-04-12] MEDS: ENOXAPARIN INJ 30 MG/0.3 ML SYR SQ SCH (07:21)
[2021-04-12] MEDS: AZITHROMYCIN 500 MG in DEXTROSE 5% 250 ML IV SCH (07:31)
[2021-04-12] MEDS: ALBUT/IPRATROP 3MG/0.5MG NEB 3 ML VIAL NEB PRN (08:00)
[2021-04-12] MEDS: FORMOTEROL 20 MCG/2 ML VIAL NEB SCH (08:01)
--- NOTE | 2021-04-12 15:09 | Hospitalist Progress Note ---
Date of Service April 12, 2021 Assessment & Plan (1) Acute on chronic respiratory failure with hypoxia: Plan: Acute on chronic respiratory failure with hypoxia/COPD exacerbation. subjectively does not feel well - Switch to oral steroids 04/10/2021. REDUCED DOSE 04/12/21 - in the past the pt states she did better with spiriva, will change to that anticholinergic - REMOVED FORMOTEROL AND ALBUTEROL PT FEELS MAKES HER SHAKEY challenging patient, has some anxiety associated with chronic lung disease, buspar as 5 mg dose - Continue guaifenesin extended release 1200 mg p.o. twice daily - Continue azithromycin finish 04/10/2021 - Nasal cannula oxygen, target pulse ox 90% -> Now on room air. (2) COPD exacerbation: Plan: See above (3) Sleep apnea, obstructive: Plan: CPAP at bedtime as needed (4) Anxiety with depression: Plan: - Continue escitalopram and hydroxyzine , increased buspirone. removed albuterol (5) DVT prophylaxis: Plan: Lovenox 30 mg SQ daily Admission and Anticipated Discharge Date Admission Date: April 07, 2021 Subjective pt has concerns about feeling too short of breath to be at home, is typically not on continuous oxygen, did have a poor PFT in 2019 read as severe COPD , typically sees Dr Coronado Her biggest complaints is tremor and anxiety Review of Systems Review of Systems: Mild distress and fatigue no headache, no visual changes no speech or swallowing issues no chest pain, pressure or palpitations shortness of breath, no cough or wheezes no abdominal pain, nausea or vomiting, diarrhea or constipation no dysuria, hematuria or frequency no focal joint pain or swelling no back pain, CVA tenderness or radicular pain no bruising, bleeding or rashes no focal signs of weakness or numbness or altered sensation no complaints of feeling palpitiations, maybe anxiety Physical Exam Physical Exam: The patient appeared thin and underweight Vital signs as documented. Head exam is normocephalic atraumatic Neck is without JVD, thyromegaly, or carotid bruits. Lungs overall very poor air movement Cardiac exam, Rhythm is regular.. No murmurs, rubs or gallops. Abdominal exam reveals normal bowel sounds, soft non tender, no masses Extremities are nonedematous and both pedal pulses are present Neurologic exam is alert and oriented, no focal loss of strength or sensation Skin is without bruises or rashes Psychologically is with concerns for anxiety Results & Data Results & Data ([facility]) Vital Signs (Past 12 Hours) Vital Signs Temp Pulse Pulse Resp BP Pulse Ox 04/12/21 11:00 98.1 F 89 21 155/74 H 91 04/12/21 10:19 87 04/12/21 08:01 75 18 97 04/12/21 07:00 97.7 F 71 18 152/81 H 97 PG Care Time/CCT Total # of Minutes Spent Total Time Spent with Patient: Total time spent is greater than 50% in coordination of care (as documented) at patient's floor/unit and/or counseling patient: Coding Level of Care Code 35437 Subseq Hosp Care Lvl 2 Diagnoses Acute on chronic respiratory failure with hypoxia J96.21 COPD exacerbation J44.1 Sleep apnea, obstructive G47.33 Anxiety with depression F41.8 DVT prophylaxis Z29.9
[2021-04-12] MEDS: LEVALBUTEROL TARTRATE 15 GM HFA.AER.AD INH PRN (18:21)
[2021-04-13] MEDS: busPIRone 5 MG TAB PO SCH ×2 (08:10→20:59)
[2021-04-13] MEDS: ESCITALOPRAM OXALATE 10 MG TAB PO SCH (08:10)
[2021-04-13] MEDS: ENOXAPARIN INJ 30 MG/0.3 ML SYR SQ SCH (08:10)
[2021-04-13] MEDS: guaiFENesin 600 MG TABCR PO SCH ×2 (08:11→20:58)
[2021-04-13] MEDS: FLUTICASONE/VILANTEROL 200/25MCG 14 PUFFS/INHALER INH SCH (08:11)
[2021-04-13] MEDS: predniSONE 20 MG TAB PO SCH (08:12)
[2021-04-13] MEDS: ACETAMINOPHEN 325 MG TAB PO PRN ×2 (08:12→22:25)
[2021-04-13] MEDS: UMECLIDINIUM BROMIDE 62.5MCG/BLISTER 7 PUFFS/INHALER INH SCH (08:12)
[2021-04-13] MEDS: hydrOXYzine HCl 10 MG TAB PO PRN ×2 (08:13→15:23)
[2021-04-13] MEDS: LEVALBUTEROL TARTRATE 15 GM HFA.AER.AD INH PRN ×2 (08:21→13:03)
--- NOTE | 2021-04-13 15:18 | Hospitalist Progress Note ---
Date of Service April 13, 2021 Assessment & Plan (1) Acute on chronic respiratory failure with hypoxia: Plan: Acute on chronic respiratory failure with hypoxia/COPD exacerbation. subjectively does not feel well enough to go home, PFT from 2019 with severe copd and reduced DLCO to 33%, mei leading to feeling sob, most mei transitioned to chronic oxygen use - Switch to oral steroids 04/10/2021. REDUCED DOSE 04/12/21 - umeclidinium for anticholinergic, this makes her on equivalent of trelegy inhaler with fluticasone/vilanterol - REMOVED FORMOTEROL AND ALBUTEROL PT FEELS MAKES HER SHAKEY challenging patient, has some anxiety associated with chronic lung disease, buspar as 5 mg dose, increasing home vistaril - Continue guaifenesin extended release 1200 mg p.o. twice daily - Continue azithromycin finish 04/10/2021 - Nasal cannula oxygen, target pulse ox 90% -> Now on 2L (2) COPD exacerbation: Plan: See above (3) Sleep apnea, obstructive: Plan: CPAP at bedtime as needed (4) Anxiety with depression: Plan: - Continue escitalopram and hydroxyzine , increased buspirone. removed albuterol (5) DVT prophylaxis: Plan: Lovenox 30 mg SQ daily Admission and Anticipated Discharge Date Admission Date: April 07, 2021 Subjective pt has concerns about feeling too short of breath to be at home, is typically not on continuous oxygen, did have a poor PFT in 2019 read as severe COPD , typically sees Dr Coronado Her biggest complaints were tremor and anxiety. Escalating doses of BuSpar reducing doses of prednisone seemed to have temporarily helped however in the afternoon she requested increased doses of her Vistaril which she says she takes 2-3 times at home. At this time we will try to get a hold of her somatic complaints in order for her to be comfortable enough to go home she likely will be on chronic daily oxygen. I did speak with pulmonary medicine and they moved her outpatient appointment up to May 04 Review of Systems Review of Systems: Mild distress and fatigue no headache, no visual changes no speech or swallowing issues no chest pain, pressure or palpitations Worsening baseline shortness of breath feelings of tremulousness inside no abdominal pain, nausea or vomiting, diarrhea or constipation no dysuria, hematuria or frequency no focal joint pain or swelling no back pain, CVA tenderness or radicular pain no bruising, bleeding or rashes no focal signs of weakness or numbness or altered sensation no complaints of anxiety or depression.. Physical Exam Physical Exam: The patient appeared chronically ill and anxious Vital signs as documented. Head exam is normocephalic atraumatic Neck is without JVD, thyromegaly, or carotid bruits. Lungs are extremely poor air movement no focal air loss Cardiac exam, Rhythm is regular.. No murmurs, rubs or gallops. Abdominal exam reveals normal bowel sounds, soft non tender, no masses Extremities are nonedematous and both pedal pulses are present Neurologic exam is alert and oriented, no focal loss of strength or sensation Skin is without bruises or rashes Psychologically is with concerns for anxiety Results & Data Results & Data ([facility]) Vital Signs (Past 12 Hours) Vital Signs Temp Pulse Pulse Resp BP BP Pulse Ox 04/13/21 15:02 97.9 F 83 18 126/72 95 04/13/21 13:03 16 95 04/13/21 11:49 98.1 F 72 20 119/68 96 04/13/21 08:22 18 94 04/13/21 07:55 98.1 F 69 20 117/67 99 04/13/21 06:17 66 04/13/21 04:28 97.7 F 66 18 133/78 97 PG Care Time/CCT Total # of Minutes Spent Total Time Spent with Patient: Total time spent is greater than 50% in coordination of care (as documented) at patient's floor/unit and/or counseling patient: Coding Level of Care Code 18732 Subseq Hosp Care Lvl 2 Diagnoses Acute on chronic respiratory failure with hypoxia J96.21 COPD exacerbation J44.1 Sleep apnea, obstructive G47.33 Anxiety with depression F41.8 DVT prophylaxis Z29.9
[2021-04-14 06:57] LABS: Creatinine Clr Calc Pharmacy 60.2 ml/min; Est GFR (African American) 94.7 ml/min; Est GFR (Non-African American) 81.7 ml/min
[2021-04-14] MEDS: ENOXAPARIN INJ 30 MG/0.3 ML SYR SQ SCH (07:56)
[2021-04-14] MEDS: guaiFENesin 600 MG TABCR PO SCH ×2 (07:56→20:47)
[2021-04-14] MEDS: busPIRone 5 MG TAB PO SCH (07:56)
[2021-04-14] MEDS: ESCITALOPRAM OXALATE 10 MG TAB PO SCH (07:56)
[2021-04-14] MEDS: predniSONE 20 MG TAB PO SCH (07:56)
[2021-04-14] MEDS: UMECLIDINIUM BROMIDE 62.5MCG/BLISTER 7 PUFFS/INHALER INH SCH (07:57)
[2021-04-14] MEDS: FLUTICASONE/VILANTEROL 200/25MCG 14 PUFFS/INHALER INH SCH (07:57)
[2021-04-14] MEDS: hydrOXYzine HCl 10 MG TAB PO PRN ×2 (07:58→13:52)
[2021-04-14] MEDS: FAMOTIDINE 20 MG TAB PO PRN (08:45)
[2021-04-14] MEDS: LEVALBUTEROL TARTRATE 15 GM HFA.AER.AD INH PRN (10:07)
--- NOTE | 2021-04-14 17:10 | Hospitalist Progress Note ---
Date of Service April 14, 2021 Assessment & Plan (1) Acute on chronic respiratory failure with hypoxia: Plan: Acute on chronic respiratory failure with hypoxia/COPD exacerbation. Now with good air movement and minimal wheezing. - Finished oral steroids & antibiotics. - Continue DuoNeb PRN - Continue guaifenesin extended release 1200 mg p.o. twice daily - Nasal cannula oxygen, target pulse ox 90% -> Now on room air. (2) COPD exacerbation: Plan: See above (3) Sleep apnea, obstructive: Plan: CPAP at bedtime as needed (4) Anxiety with depression: Plan: Extreme. Most of her symptoms now related to her anxiety. - Continue escitalopram and hydroxyzine (5) DVT prophylaxis: Plan: Lovenox 30 mg SQ daily Admission and Anticipated Discharge Date Admission Date: April 07, 2021 Subjective Reports her "shakiness" is the worst issue at present. Reports no fevers/chills, chest pain, shortness of breath, abdominal pain, nausea, or vomiting. Physical Exam Constitutional: WD/WN, vitals as above Eyes: EOM intact bilaterally; no conjunctival abnormality ENMT: external ear and nose normal, oropharynx normal Neck: trachea midline, no thyromegaly normal visual inspection Respiratory: normal respiratory effort, lungs clear to auscultation no respiratory distress Cardiovascular: RRR, no murmur, no edema Gastrointestinal (Abdomen): Inspection/Auscultation: abdomen normal to inspection; abdomen not distended Musculoskeletal: no cyanosis or clubbing, extremities motor strength 5/5 Skin: no rashes, warm and dry Neurologic: moves all extremities and awake Psychiatric: Orientation: alert, oriented to person and cooperative Results & Data Results & Data ([facility]) Vital Signs (Past 12 Hours) Vital Signs Temp Pulse Pulse Resp BP Pulse Ox 04/14/21 15:09 36.4 C L 78 20 123/72 94 04/14/21 14:16 79 04/14/21 11:02 36.5 C 79 20 146/76 H 91 04/14/21 10:07 73 20 98 04/14/21 07:55 36.6 C 64 20 134/73 97 04/14/21 06:19 65 PG Care Time/CCT Total # of Minutes Spent Total Time Spent with Patient: Total time spent is greater than 50% in coordination of care (as documented) at patient's floor/unit and/or counseling patient: Coding Level of Care Code 55536 Subseq Hosp Care Lvl 2 Diagnoses Acute on chronic respiratory failure with hypoxia J96.21 COPD exacerbation J44.1 Sleep apnea, obstructive G47.33 Anxiety with depression F41.8 DVT prophylaxis Z29.9
[2021-04-15] MEDS: hydrOXYzine HCl 25 MG TAB PO PRN ×2 (01:26→13:11)
[2021-04-15] MEDS: guaiFENesin 600 MG TABCR PO SCH ×2 (08:43→20:36)
[2021-04-15] MEDS: predniSONE 20 MG TAB PO SCH (08:44)
[2021-04-15] MEDS: FLUTICASONE/VILANTEROL 200/25MCG 14 PUFFS/INHALER INH SCH (08:46)
[2021-04-15] MEDS: UMECLIDINIUM BROMIDE 62.5MCG/BLISTER 7 PUFFS/INHALER INH SCH (08:46)
[2021-04-15] MEDS: ESCITALOPRAM OXALATE 10 MG TAB PO SCH (08:48)
[2021-04-15] MEDS: ENOXAPARIN INJ 30 MG/0.3 ML SYR SQ SCH (08:48)
--- NOTE | 2021-04-15 11:18 | Electrocardiogram Report ---
Test Reason : Blood Pressure : / mmHG Vent. Rate : 066 BPM Atrial Rate : 066 BPM P-R Int : 154 ms QRS Dur : 072 ms QT Int : 396 ms P-R-T Axes : 080 081 087 degrees QTc Int : 415 ms Normal sinus rhythm Normal ECG When compared with ECG of 07-APR-2021 15:29, No significant change was found Confirmed by Arthur Pack ([id number]) on 04/15/2021 11:18:11 AM Referred By: REFERRED SELF Confirmed By:Glenroy Pack
[2021-04-15] MEDS: ACETAMINOPHEN 325 MG TAB PO PRN ×2 (11:20→21:40)
--- NOTE | 2021-04-15 15:21 | Hospitalist Progress Note ---
Date of Service April 15, 2021 Assessment & Plan (1) Acute on chronic respiratory failure with hypoxia: Plan: Acute on chronic respiratory failure with hypoxia/COPD exacerbation. Now with good air movement and minimal wheezing. - Finished oral steroids & antibiotics. - Continue DuoNeb PRN - Continue guaifenesin extended release 1200 mg p.o. twice daily - Nasal cannula oxygen, target pulse ox 90% -> Now on room air. Will go home on Tuesday. (2) COPD exacerbation: Plan: See above (3) Sleep apnea, obstructive: Plan: CPAP at bedtime as needed (4) Anxiety with depression: Plan: Extreme. Most of her symptoms now related to her anxiety. - Continue escitalopram and hydroxyzine -> Increased both on 04/14 for continued anxiety. (5) DVT prophylaxis: Plan: Lovenox 30 mg SQ daily Admission and Anticipated Discharge Date Admission Date: April 07, 2021 Subjective Shakiness is better today with increased Vistaril. Reports no fevers/chills, chest pain, shortness of breath, abdominal pain, nausea, or vomiting. Physical Exam Constitutional: WD/WN, vitals as above Eyes: EOM intact bilaterally; no conjunctival abnormality ENMT: external ear and nose normal, oropharynx normal Neck: trachea midline, no thyromegaly normal visual inspection Respiratory: normal respiratory effort, lungs clear to auscultation no respiratory distress Auscultation: lungs clear to auscultation bilaterally (Good air movement); no wheezes Cardiovascular: RRR, no murmur, no edema Gastrointestinal (Abdomen): Inspection/Auscultation: abdomen normal to inspection; abdomen not distended Musculoskeletal: no cyanosis or clubbing, extremities motor strength 5/5 Skin: no rashes, warm and dry Neurologic: moves all extremities and awake Psychiatric: Orientation: alert, oriented to person and cooperative Results & Data Results & Data ([facility]) Vital Signs (Past 12 Hours) Vital Signs Temp Pulse Pulse Resp BP BP Pulse Ox 04/15/21 11:39 36.7 C 77 20 120/67 97 04/15/21 07:52 62 04/15/21 07:47 36.4 C L 66 20 117/67 97 04/15/21 03:40 36.6 C 69 18 118/70 97 PG Care Time/CCT Total # of Minutes Spent Total Time Spent with Patient: Total time spent is greater than 50% in coordination of care (as documented) at patient's floor/unit and/or counseling patient: Coding Level of Care Code 68548 Subseq Hosp Care Lvl 2 Diagnoses Acute on chronic respiratory failure with hypoxia J96.21 COPD exacerbation J44.1 Sleep apnea, obstructive G47.33 Anxiety with depression F41.8 DVT prophylaxis Z29.9
[2021-04-15] MEDS: LEVALBUTEROL TARTRATE 15 GM HFA.AER.AD INH PRN (15:44)
[2021-04-16 07:35] LABS: Hematocrit (blood only) 37.2 % (37-47); Hemoglobin 12.3 g/dL (12.0-16.0); Mean Corpuscular Hemoglobin 30.2 pg (25-34); Mean Corpuscular Hgb Conc 33.1 g/dL (32-36); Mean Corpuscular Volume 91.4 fL (80-100); Mean Platelet Volume 9.1 fL (7.4-10.4); Platelet Count 227 K/uL (130-400); RDW Coefficient of Variation 13.1 % (11.5-14.5); RDW Standard Deviation 43.8 fL (36.4-46.3); Red Blood Count 4.07 M/uL (4.2-5.4)
[2021-04-16 08:00] LABS: BUN Creatinine Ratio 28.2 (10-20); Calcium 8.4 mg/dl (8.5-10.1); Creatinine Clr Calc Pharmacy 58.7 ml/min; Est GFR (African American) 91.8 ml/min; Est GFR (Non-African American) 79.2 ml/min
[2021-04-16] MEDS: ENOXAPARIN INJ 30 MG/0.3 ML SYR SQ SCH (08:08)
[2021-04-16] MEDS: guaiFENesin 600 MG TABCR PO SCH ×2 (08:09→20:33)
[2021-04-16] MEDS: ESCITALOPRAM OXALATE 10 MG TAB PO SCH (08:09)
[2021-04-16] MEDS: FLUTICASONE/VILANTEROL 200/25MCG 14 PUFFS/INHALER INH SCH (08:10)
[2021-04-16] MEDS: UMECLIDINIUM BROMIDE 62.5MCG/BLISTER 7 PUFFS/INHALER INH SCH (08:11)
[2021-04-16] MEDS: LEVALBUTEROL TARTRATE 15 GM HFA.AER.AD INH PRN ×3 (08:16→18:02)
[2021-04-16] MEDS: hydrOXYzine HCl 25 MG TAB PO PRN (11:49)
--- NOTE | 2021-04-16 15:05 | Hospitalist Progress Note ---
Date of Service April 16, 2021 Assessment & Plan (1) Acute on chronic respiratory failure with hypoxia: Plan: Acute on chronic respiratory failure with hypoxia/COPD exacerbation. Now with good air movement and minimal wheezing. - Finished oral steroids & antibiotics. - Continue DuoNeb PRN - Continue guaifenesin extended release 1200 mg p.o. twice daily - Nasal cannula oxygen, target pulse ox 90% -> Now on room air. Will go home tomorrow. (2) COPD exacerbation: Plan: See above (3) Sleep apnea, obstructive: Plan: CPAP at bedtime as needed (4) Anxiety with depression: Plan: Extreme. Most of her symptoms now related to her anxiety. - Continue escitalopram and hydroxyzine -> Increased both on 04/14 for continued anxiety. Not much change today, but SSRI will take 6 weeks for effect. (5) DVT prophylaxis: Plan: Lovenox 30 mg SQ daily Admission and Anticipated Discharge Date Admission Date: April 07, 2021 Subjective Doesn't feel Vistaril helping as much today. Reports no fevers/chills, chest pain, shortness of breath, abdominal pain, nausea, or vomiting. Physical Exam Constitutional: WD/WN, vitals as above Eyes: EOM intact bilaterally; no conjunctival abnormality ENMT: external ear and nose normal, oropharynx normal Neck: trachea midline, no thyromegaly normal visual inspection Respiratory: normal respiratory effort, lungs clear to auscultation no respiratory distress Auscultation: lungs clear to auscultation bilaterally (Good air movement); no wheezes Cardiovascular: RRR, no murmur, no edema Gastrointestinal (Abdomen): Inspection/Auscultation: abdomen normal to inspection; abdomen not distended Musculoskeletal: no cyanosis or clubbing, extremities motor strength 5/5 Skin: no rashes, warm and dry Neurologic: moves all extremities and awake Psychiatric: Orientation: alert, oriented to person and cooperative Results & Data Results & Data ([facility]) Vital Signs (Past 12 Hours) Vital Signs Temp Pulse Pulse Resp BP BP Pulse Ox 04/16/21 12:01 77 18 97 04/16/21 11:23 36.5 C 71 17 118/66 96 04/16/21 08:00 72 04/16/21 07:39 36.5 C 67 19 113/65 97 04/16/21 03:26 36.6 C 67 20 131/66 98 PG Care Time/CCT Total # of Minutes Spent Total Time Spent with Patient: Total time spent is greater than 50% in coordination of care (as documented) at patient's floor/unit and/or counseling patient: Coding Level of Care Code 33572 Subseq Hosp Care Lvl 2 Diagnoses Acute on chronic respiratory failure with hypoxia J96.21 COPD exacerbation J44.1 Sleep apnea, obstructive G47.33 Anxiety with depression F41.8 DVT prophylaxis Z29.9
[2021-04-17] MEDS: ENOXAPARIN INJ 30 MG/0.3 ML SYR SQ SCH (07:46)
[2021-04-17] MEDS: ESCITALOPRAM OXALATE 10 MG TAB PO SCH (07:46)
[2021-04-17] MEDS: guaiFENesin 600 MG TABCR PO SCH (07:46)
[2021-04-17] MEDS: FLUTICASONE/VILANTEROL 200/25MCG 14 PUFFS/INHALER INH SCH (07:47)
[2021-04-17] MEDS: UMECLIDINIUM BROMIDE 62.5MCG/BLISTER 7 PUFFS/INHALER INH SCH (07:47)
[2021-04-17] MEDS: hydrOXYzine HCl 25 MG TAB PO PRN (08:52)
[2021-04-17] MEDS: LEVALBUTEROL TARTRATE 15 GM HFA.AER.AD INH PRN ×2 (08:55→12:47)
--- NOTE | 2021-04-17 17:02 | Discharge Summary ---
Date of Service April 17, 2021 Admission HPI Per Admitting Provider The patient is a 65-year-old female with a past medical history including COPD, chronic respiratory failure, PAT, obstructive sleep apnea, admissions for COPD exacerbation, depression, GERD, and tobacco use disorder. She presents with symptoms as noted above. Of note, COVID-19 testing was negative on 02/12, 03/27 and tonight 04/07/21. Principal Diagnosis COPD exacerbation Discharge Exam Constitutional WD/WN, vitals as above Eyes EOM intact bilaterally; no conjunctival abnormality ENMT external ear and nose normal, oropharynx normal Neck trachea midline, no thyromegaly normal visual inspection Respiratory normal respiratory effort, lungs clear to auscultation no respiratory distress Auscultation: lungs clear to auscultation bilaterally (Good air movement); no wheezes Cardiovascular RRR, no murmur, no edema Gastrointestinal (Abdomen) Inspection/Auscultation: abdomen normal to inspection; abdomen not distended Musculoskeletal no cyanosis or clubbing, extremities motor strength 5/5 Skin no rashes, warm and dry Neurologic moves all extremities and awake Psychiatric Orientation: alert, oriented to person and cooperative Discharge Data Allergies Allergy/AdvReac Type Severity Reaction Status Date / Time aspirin Allergy Mild GI SYMPTOMS Verified 03/27/21 14:49 Consultations 04/07/21 19:31 ED Decision to Admit Stat Hospital Course (1) Acute on chronic respiratory failure with hypoxia: Acute on chronic respiratory failure with hypoxia/COPD exacerbation. Now with good air movement and minimal wheezing. - Finished oral steroids & antibiotics. - Continue DuoNeb PRN - Continue guaifenesin extended release 1200 mg p.o. twice daily - Nasal cannula oxygen, target pulse ox 90% -> Now on 2L [place] which is her home O2. No wheezing on exam. Easy air movement. Walking around room without issues. Discharged with pulmonology f/u. (2) COPD exacerbation: See above (3) Sleep apnea, obstructive: CPAP at bedtime as needed (4) Anxiety with depression: Extreme. Most of her symptoms now related to her anxiety. - Continue escitalopram and hydroxyzine -> Increased both on 04/14 for continued anxiety. Escitalopram to 15 mg daily and hydroxyzine to 25 mg dosing. QTc was 440 on discharge and stable from priors. (5) DVT prophylaxis: Lovenox 30 mg SQ daily Total Time Total Time Spent Total Time Spent (In Minutes): 35 Discharge Plan Discharge Items Patient Disposition: Home - Self-Care Reason For Visit: COPD EXACERBATION Discharge Diagnosis: COPD exacerbation Activity: Resume your previous activity Non-emergency contact: Primary Care Provider and Director [employer] Call non-emergency contact if: your symptoms worsen Follow-up/Referrals: Leno De Leon MD [Physician] - 05/04/21 11:30 am (Follow up 05/04/2021 at 11:30am with Dr. De Leon ) Roshan Crandall MD [Primary Care Provider] - (PLEASE CALL YOUR PRIMARY CARE PROVIDER TO SCHEDULE A DISCHARGE FOLLOW-UP APPOINTMENT WITHIN 7-10 DAYS.) Diet: Regular Addtl Attending Provider Instructions: Ms. Mcneil, You were admitted to the hospital for a COPD exacerbation. We gave you antibiotics and steroids and breathing treatments, and you have felt better. You are still having some shakiness which I think is partly related to breathing and partly related to anxiety about your breathing. To improve this, we increased the dose of Vistaril you take as well as increased your dose (modestly) of your SSRI which can help with general anxiety as well. You noted that you have your nebulizer at home, and I have sent you extra medication. Pending Studies at Discharge: No Stand-Alone Forms: My [facility] [employer], Smoking Cessation Medications and DC Order Prescriptions: New hydroxyzine HCl 25 mg Tablet 25 mg PO Q6H PRN (Reason: anxiety) Qty: 30 RF: 0 Continued ipratropium-albuterol 0.5 mg-3 mg(2.5 mg base)/3 mL solution for nebulization 3 ml INH QID PRN (Reason: Shortness Of Breath) Qty: 360 RF: 5 albuterol sulfate [ProAir HFA] 90 mcg/actuation HFA aerosol inhaler 2 puff Inhalation Q4 PRN (Reason: Shortness Of Breath Or Wheezing) Qty: 8.5 RF: 3 (DME) CPAP Machine Misc See Rx Instructions .MEDSUPPLY Qty: 1 RF: 0 Marilee-D 24 Hour 180-240 mg tablet extended release 24 hr 1 tab PO QAM Qty: 30 RF: 0 sodium chloride 7 % solution for nebulization 4 ml inhalation BID PRN (Reason: PER PT IF USE NEB RX.) RF: 0 Spiriva Respimat 2.5 mcg/actuation mist 2 puff INHALATION QAM PRN (Reason: Shortness Of Breath) RF: 0 fluticasone propion-salmeterol [Advair Diskus] 250-50 mcg/dose blister with device 1 inh INHALATION DIRECTED RF: 0 famotidine [Pepcid] 20 mg tablet 20 mg PO HS PRN (Reason: gastric reflux) Qty: 60 RF: 0 Changed escitalopram oxalate 10 mg tablet 15 mg PO DAILY Qty: 45 RF: 0 Discontinued prednisone 10 mg tablet See Rx Instructions PO DAILY Qty: 36 RF: 0 escitalopram oxalate 10 mg tablet 10 mg PO DAILY RF: 0 hydroxyzine HCl 10 mg tablet 10 mg PO DIRECTED PRN (Reason: Anxiety) RF: 0 Discharge Orders: Discharge Order (Routine); Ordered 04/17/21 Ordered By: Tommy Noonan Admission Data Admit Date/Time: 04/07/21 20:26 Attending Provider: Tommy Noonan Admit Provider: Blaze Smith Primary Care Provider: Roshan Crandall Other Interventions: Discharge Summary Assessment (RN) Last Done: 04/17/21 12:12 Coding Level of Care Code D/C DAY MANAGEMENT >30 MINS Diagnoses Acute on chronic respiratory failure with hypoxia J96.21 COPD exacerbation J44.1 Sleep apnea, obstructive G47.33 Anxiety with depression F41.8 DVT prophylaxis Z29.9
--- NOTE | 2021-04-18 20:17 | Electrocardiogram Report ---
Test Reason : Blood Pressure : / mmHG Vent. Rate : 080 BPM Atrial Rate : 080 BPM P-R Int : 138 ms QRS Dur : 074 ms QT Int : 380 ms P-R-T Axes : 082 078 078 degrees QTc Int : 438 ms Normal sinus rhythm Normal ECG When compared with ECG of 15-APR-2021 01:26, No significant change was found Confirmed by Tyler Carey ([id number]) on 04/18/2021 8:17:14 PM Referred By: REFERRED SELF Confirmed By:Tyler Carey
== END 2021-04-17 13:39 | disposition home or self-care (01) | DRG 189 ==
LOC: ED 15:15 → SUATTDRO 20:26 → EDINP 20:26 → 2N 04-08 17:14

== ENCOUNTER 2021-10-06 15:32 | Observation (INO) ==
--- NOTE | 2021-10-06 16:30 | Emergency Department Note ---
History of Present Illness General Chief complaint: Chest Pain Stated complaint: ANXIETY Time Seen by Provider: 10/06/21 16:03 Source: patient History of Present Illness Provider complaint: Chest pain Onset (ago): hour(s) Location: chest Radiation: non-radiation Pain Consistency: + constant Quality: + other (Heaviness) Exacerbated By: + other (Exertion) Associated symptoms: + chest pain, + shortness of breath and + weakness; no cough, no diaphoresis, no fever/chills or no nausea/vomiting This is a 66-year-old female who presents with chest pain while sitting on the porch. She suddenly felt heaviness in the middle of her chest without radiation. She also became very short of breath. Her pain was worse with exertion. She states that the symptoms started approximately an hour and half prior to arrival. She does have some mild heaviness in her chest currently. She denies any history of cardiac disease but does not remember when her last stress test was. She does state that her sister has a history of cardiac stents and is about 10 years older than her. She denies any history of high blood pressure, diabetes or high cholesterol. She states she had similar chest discomfort in March and was admitted to the hospital at that time. She denies feeling anxious prior to developing chest heaviness. She has a history of anxiety and uses Xanax as needed. She states that she has not had to use it for about a week and has not been feeling anxious recently. She denies any fev er, cough or cold symptoms, diaphoresis, vomiting, abdominal pain, diarrhea, urinary symptoms or leg swelling or pain. Home Medications Medication Instructions Recorded Confirmed Type CPAP Machine #1 ea 12/06/19 05/11/21 Rx escitalopram oxalate 10 mg tablet 15 mg PO DAILY #45 tab 04/17/21 10/06/21 Rx hydroxyzine HCl 25 mg tablet 25 mg PO Q6H PRN #30 tab 04/17/21 10/06/21 Rx cyclobenzaprine 5 mg tablet 5 mg PO DAILY PRN 05/03/21 10/06/21 History ondansetron 4 mg disintegrating 4 mg PO Q8H PRN #30 tab 05/03/21 10/06/21 Rx tablet CPAP Supplies #1 ea 05/11/21 05/11/21 Rx ProAir HFA 90 mcg/actuation 2 puff INHALATION Q4 PRN #8.5 gm NS 05/11/21 10/06/21 Rx aerosol inhaler (albuterol sulfate) fluticasone fur. 200 mcg-umeclid 1 inh INHALATION DAILY #60 ea 05/11/21 10/06/21 Rx 62.5 mcg-vilant 25 mcg inhalat.powder (Trelegy Ellipta) ipratropium 0.5 mg-albuterol 3 mg 3 ml INH QID PRN #360 ml 05/11/21 10/06/21 Rx (2.5 mg base)/3 mL nebulization soln Allergies Allergy/AdvReac Type Severity Reaction Status Date / Time aspirin AdvReac Intermediate GI SYMPTOMS Verified 10/06/21 17:56 Past Med/Surg History Medical History Anxiety with depression Asthma Chronic obstructive pulmonary disease with hypoxia 3L NC PRN Pulm - Min [place] COPD exacerbation COVID Family history of colon cancer Sleep apnea, obstructive Yeast infection Surgical History H/O partial thyroidectomy 1990s d/t hemorrhaging?--unknown cause, no meds History of broken collarbone sx to repair History of carpal tunnel surgery of right wrist History of partial hysterectomy History of tooth extraction all teeth Family History Mother , from ovarian cancer Cancer Ovarian Sister Cancer Ovarian Father COPD (chronic obstructive pulmonary disease) Other No family history of adverse response to anesthesia Social History Smoking Status: Former smoker Tobacco Type: Cigarettes Age Started Using Tobacco: 17; Age Quit Using Tobacco: 1; packs per day: 1; Years Smoked: 43; Cigarettes Per Day: 20; Number of Years Since Quit: 1; Second Hand Exposure: No; Hx Alcohol Use: No Hx Substance Use: No Preferred Language: Danish 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 Ability: Effective Store Team Member 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 Beliefs That Will Affect Care: None marital status: Current Living Situation: Family Current Living Situation Comment: Lives with daughter Virgen Feels Safe at Home: Yes Assistive Devices: Glasses and Oxygen - Continuous Review of Systems See HPI for pertinent positives & negatives. and A total of 10 systems reviewed and were otherwise negative Physical Exam Vital Signs Vital Signs - 24 hr 10/06/21 15:36 10/06/21 16:35 10/06/21 16:38 Temperature 36.6 C Temperature Source Temporal Artery Scan Pulse Rate 91 H 77 Pulse Rate [Right Finger] 77 Pulse Rhythm Regular Pulse Rhythm [Right Finger] Pulse Strength [Right Finger] Respiratory Rate 20 16 16 Respiratory Effort / Characteristics Non-Labored Spontaneous Non-Labored Respiratory Depth Normal Normal Respiratory Pattern Regular Blood Pressure 147/86 H Blood Pressure [Right Arm] 100/66 Blood Pressure Mean 106 Blood Pressure Mean [Right Arm] 77 Pulse Oximetry 98 98 98 Oxygen Delivery Method Nasal Cannula Nasal Cannula Nasal Cannula Oxygen Flow Rate 2 2 2 Sepsis Recent Fever Within 48 Hours No Sepsis New/Unexplained Change in Mental Status No Sepsis Action Taken by Nursing No Action Required 10/06/21 18:01 Temperature Temperature Source Pulse Rate Pulse Rate [Right Finger] 74 Pulse Rhythm Pulse Rhythm [Right Finger] Regular Pulse Strength [Right Finger] Normal Respiratory Rate 18 Respiratory Effort / Characteristics Non-Labored Respiratory Depth Normal Respiratory Pattern Blood Pressure Blood Pressure [Right Arm] 156/78 H Blood Pressure Mean Blood Pressure Mean [Right Arm] 104 Pulse Oximetry 98 Oxygen Delivery Method Nasal Cannula Oxygen Flow Rate 2 Sepsis Recent Fever Within 48 Hours Sepsis New/Unexplained Change in Mental Status Sepsis Action Taken by Nursing Constitutional: Vital signs reviewed. Eyes: Pupils are equal round reactive to light. Conjunctiva are noninjected. ENT: Pharynx is clear without erythema or exudate. Mucous membranes are moist. Neck supple without meningeal signs. Respiratory: Clear to auscultation bilaterally. Breath sounds are equal bilaterally. Cardiovascular: Regular rate and rhythm. No rubs or gallops. GI: Soft, nondistended and nontender. Bowel sounds are present. Musculoskeletal: No peripheral edema. No lower extremity tenderness. Integumentary: No cyanosis. or jaundice. Neurological: The patient is awake and alert. No focal deficits. Psychiatric: Slightly anxious. Course Administered Medications Discontinued Medications Aspirin (Aspirin 81 Mg Chew) 324 mg PO NOW STA Stop: 10/06/21 17:54 Last Admin: 10/06/21 17:58 Dose: 324 mg Documented by: [id number] Famotidine (Famotidine 10 Mg Tablet) 10 mg PO NOW ONE Stop: 10/06/21 17:54 Last Admin: 10/06/21 18:19 Dose: 10 mg Documented by: [id number] Nitroglycerin (Nitroglycerin 2% Ointment 30gm Tube) 0.5 inch EXT NOW ONE Stop: 10/06/21 16:32 Last Admin: 10/06/21 16:44 Dose: 0.5 inch Documented by: [id number] Medical Decision Making Differential Diagnosis Unstable angina, OR, COPD exacerbation, pleurisy, panic attack Medical Records Attestation: I reviewed the patient's medical records. I did perform a limited focused review of portions of the patient's old chart on the electronic medical record. The patient was admitted in March of last year for a COPD exacerbation. She was discharged eventually and came back in April for persistent shortness of breath. She had a CTA of the chest both times which showed no evidence of PE. Home Medications Current Medication List: was personally reviewed by me Laboratory Data Attestation: I reviewed the patient's lab results. Result diagrams: 10/06/21 16:30 10/06/21 16:30 Lab Results 10/06/21 10/06/21 10/06/21 Range/Units 16:30 16:30 17:23 WBC 5.66 (4.8-10.8) K/uL RBC 4.07 L (4.2-5.4) M/uL Hgb 12.7 (12.0-16.0) g/dL Hct 36.9 L (37-47) % MCV 90.7 (80-100) fL MCH 31.2 (25-34) pg MCHC 34.4 (32-36) g/dL RDW Std Deviation 43.0 (36.4-46.3) fL RDW Coeff of Audrey 12.9 (11.5-14.5) % Plt Count 327 (130-400) K/uL MPV 9.4 (7.4-10.4) fL Immature Gran % (Auto) 0.2 % Neut % (Auto) 60.7 % Lymph % (Auto) 28.1 % [place] % (Auto) 7.1 % Eos % (Auto) 3.2 % Baso % (Auto) 0.7 % Neut # (Auto) 3.44 (1.4-6.5) K/uL Lymph # (Auto) 1.59 (1.2-3.4) K/uL [place] # (Auto) 0.40 (0.11-0.59) K/uL Eos # (Auto) 0.18 (0-0.5) K/uL Baso # (Auto) 0.04 (0-0.2) K/uL Immature Gran # (Auto) 0.01 (0.00-0.02) K/uL Sodium 141 (136-145) mmol/L Potassium 4.2 (3.5-5.1) mmol/L Chloride 107 (98-107) mmol/L Carbon Dioxide 26 (21-32) mmol/L Anion Gap 8 (3-11) BUN 13 (6-23) mg/dl Creatinine 1.11 (0.6-1.2) mg/dl Est Cr Clr Drug Dosing 40.7 ml/min Est GFR ( Amer) 59.5 ml/min Est GFR (Non-Af Amer) 51.3 ml/min BUN/Creatinine Ratio 11.7 (10-20) Glucose 85 (70-99(Fasting)) mg/dl Calcium 8.5 (8.5-10.1) mg/dl Total Bilirubin 0.4 (0.2-1.0) mg/dl AST 16 (13-39) U/L ALT 14 (7-52) U/L Alkaline Phosphatase 90 (34-104) U/L Troponin I High Sens 4.0 (0-14) pg/ml Total Protein 6.5 (6.0-8.3) gm/dl Albumin 4.1 (3.4-5.0) gm/dl Globulin 2.4 L (2.5-4.0) gm/dl Albumin/Globulin Ratio 1.7 (0.9-2) Lipase 24 (11-82) U/L SARS-CoV-2, RNA, NAAT NEGATIVE (NEGATIVE) Imaging Data Radiologist's Impression: Chest X-Ray 10/06/21 16:18 XR chest 1V portable CLINICAL HISTORY: Atypical chest pain. COMPARISON STUDY: Chest radiograph and chest CT May 03, 2021. FINDINGS: Lung volumes are normal. Lungs are clear. There is no pneumothorax or pleural effusion. Cardiac size is normal. Mediastinal contours are normal. There is no evidence for pulmonary edema. Emphysema is noted. IMPRESSION: No acute cardiopulmonary findings. Emphysema. ACT 112: Negative or not required by law. Electronically signed by: Celestine Armendariz M.D. 10/06/2021 5:08 PM ECG Data Attestation: I personally reviewed and interpreted this ECG as follows: Indication: + chest pain Rate (beats per minute): 84 Rhythm: + normal sinus ECG Adrian: + Normal ECG ST segments: no ST elevation ECG Findings: no PVCs Comparison ECG Date: from (May 03, 2021) Change: no significant change MDM Narrative I did evaluate the patient as noted above. The patient is presenting with chest heaviness and pressure starting this afternoon while sitting by a pool. She still has some pressure currently. I did treat her with nitroglycerin paste to the anterior chest wall. IV access was established. I did place an order for continuous cardiac monitoring. The monitor showed normal sinus rhythm at a rate of 73 bpm. I did order and personally review the patient's 12-lead EKG as described above. She has no acute ischemic changes. I did order and personally reviewed the images of the patient's chest x-ray as described above. Chest x- ray is clear without any acute process. I did order and review the patient's blood work as noted in the electronic medical record. CBC is unremarkable without leukocytosis or anemia. CMP is unremarkable. Lipase is 24. High- sensitivity troponin is negative. Screening for COVID is negative. I did reassess the patient. Her chest discomfort is now completely resolved. She has no symptoms at this time. Her heart score is 4. She will be hospitalized for repeat cardiac biomarkers and further evaluation. The case was discussed with the hospitalist and field nurse case manager. I did treat her with aspirin 324 mg p.o. She gets stomach Upset with aspirin so she was given a Pepcid p.o. as well. Resident Physician Supervision Note: I did perform an independent evaluation and examination of this patient as described. I also saw this patient in conjunction with the resident, Dr. Burleson, and guided management for the patient. Impression & Plan Chest pain, COPD (chronic obstructive pulmonary disease) Discharge Plan Visit Data Chief Complaint: Chest Pain Stated Complaint: ANXIETY ED Provider: Julio Kinney ED Midlevel Provider: Yash Burleson Discharge Problem: Chest pain, COPD (chronic obstructive pulmonary disease) Patient Disposition: Being Evaluated by Hospitalist Forms Stand Alone Forms: [facility], Suicide Prevention Resources Prescriptions Prescriptions: No Action (DME) CPAP Machine Misc See Rx Instructions .MEDSUPPLY Qty: 1 RF: 0 ipratropium-albuterol 0.5 mg-3 mg(2.5 mg base)/3 mL solution for nebulization 3 ml INH QID PRN (Reason: Shortness Of Breath) Qty: 360 RF: 5 (DME) CPAP Supplies Misc See Rx Instructions .MEDSUPPLY Qty: 1 RF: 0 albuterol sulfate [ProAir HFA] 90 mcg/actuation HFA aerosol inhaler 2 puff Inhalation Q4 PRN (Reason: Shortness Of Breath Or Wheezing) Qty: 8.5 RF: 3 Trelegy Ellipta 200-62.5-25 mcg blister with device 1 inh inhalation DAILY Qty: 60 RF: 5 hydroxyzine HCl 25 mg Tablet 25 mg PO Q6H PRN (Reason: anxiety) Qty: 30 RF: 0 escitalopram oxalate 10 mg tablet 15 mg PO DAILY Qty: 45 RF: 0 cyclobenzaprine 5 mg tablet 5 mg PO DAILY PRN (Reason: Muscle Spasm) RF: 0 ondansetron 4 mg tablet,disintegrating 4 mg PO Q8H PRN (Reason: nausea and vomiting) Qty: 30 RF: 0 Referrals Referrals: Payal Duron MD [Resident] -
[2021-10-06] MEDS ORDERED: NITROGLYCERIN 2% OINTMENT 30GM TUBE EXT ONE (16:31)
[2021-10-06 16:52] LABS: Basophils # (auto) 0.04 K/uL (0-0.2); Basophils % (auto) 0.7 %; Eosinophils # (auto) 0.18 K/uL (0-0.5); Eosinophils % (auto) 3.2 %; Hematocrit (blood only) 36.9 % (37-47); Hemoglobin 12.7 g/dL (12.0-16.0); Immature Granulocytes # (auto) 0.01 K/uL (0.00-0.02); Immature Granulocytes % (auto) 0.2 %; Lymphocytes # (auto) 1.59 K/uL (1.2-3.4); Lymphocytes % (auto) 28.1 %; Mean Corpuscular Hemoglobin 31.2 pg (25-34); Mean Corpuscular Hgb Conc 34.4 g/dL (32-36); Mean Corpuscular Volume 90.7 fL (80-100); Mean Platelet Volume 9.4 fL (7.4-10.4); Monocytes % (auto) 7.1 %; Neutrophils # (auto) 3.44 K/uL (1.4-6.5); Neutrophils % (auto) 60.7 %; Platelet Count 327 K/uL (130-400); RDW Coefficient of Variation 12.9 % (11.5-14.5); Red Blood Count 4.07 M/uL (4.2-5.4); White Blood Count 5.66 K/uL (4.8-10.8)
--- NOTE | 2021-10-06 17:09 | XRay Report ---
XR chest 1V portable CLINICAL HISTORY: Atypical chest pain. COMPARISON STUDY: Chest radiograph and chest CT May 03, 2021. FINDINGS: Lung volumes are normal. Lungs are clear. There is no pneumothorax or pleural effusion. Car diac size is normal. Mediastinal contours are normal. There is no evidence for pulmonary edema. Emphy sema is noted. IMPRESSION: No acute cardiopulmonary findings. Emphysema. ACT 112: Negative or not required by law. Electronically signed by: Celestine Armendariz M.D. 10/06/2021 5:08 PM
[2021-10-06 17:37] LABS: Albumin Globulin Ratio 1.7 (0.9-2); Albumin Level 4.1 gm/dl (3.4-5.0); BUN Creatinine Ratio 11.7 (10-20); Bilirubin,Total 0.4 mg/dl (0.2-1.0); Calcium 8.5 mg/dl (8.5-10.1); Creatinine Clr Calc Pharmacy 40.7 ml/min; Est GFR (African American) 59.5 ml/min; Est GFR (Non-African American) 51.3 ml/min; Globulin 2.4 gm/dl (2.5-4.0); Potassium 4.2 mmol/L (3.5-5.1); Total Protein 6.5 gm/dl (6.0-8.3)
[2021-10-06] MEDS ORDERED: ASPIRIN 81 MG CHEW PO STA (17:53)
[2021-10-06] MEDS ORDERED: FAMOTIDINE 10 MG TABLET PO ONE (17:53)
--- NOTE | 2021-10-06 18:23 | History & Physical Report ---
Date of Service October 06, 2021 Assessment & Plan (1) Chest pain: Plan: Patient is chest pain at rest with the face of anxiety and COPD which is significant. Patient's initial high-sensitivity troponin and EKG are unremarkable. High-sensitivity troponin in 2 hours Initiate Plavix therapy as patient has allergy to aspirin(but was given aspirin in the ER) EKG in the morning Patient will have a lipid panel in the morning Likely if stress test will be required it would not be a ambulatory stress test due to her severe COPD. (2) Chronic respiratory failure with hypoxia: Plan: continue oxygen trelegy or in hopsital equivalent (3) Anxiety with depression: Plan: continue escitalopram hydroxyzine prn bzd (4) Paroxysmal atrial tachycardia: (5) Sleep apnea, obstructive: Plan: continue CPAP at night Plan: full code heparin for dvt prevention History of Present Illness Primary Care Provider: Roshan Crandall MD 66-year-old female presents with chest pain which began at rest. Patient has a history of COPD but pulmonary rehab in June 2021 patient has chronic respiratory failure with hypoxia on 2 L of oxygen chronically. Patient is on CPAP at night. Patient has severe COPD by pulmonary function tests done in June 2021 Patient has a significant anxiety component with her COPD. Patient's chest pain is nonradiating and she does have baseline shortness of breath with there is no other symptoms such as nausea or diaphoresis. Allergies Allergy/AdvReac Type Severity Reaction Status Date / Time aspirin AdvReac Intermediate GI SYMPTOMS Verified 10/06/21 17:56 Home Medications Medication Instructions Recorded Confirmed Type CPAP Machine #1 ea 12/06/19 05/11/21 Rx escitalopram oxalate 10 mg tablet 15 mg PO DAILY #45 tab 04/17/21 10/06/21 Rx hydroxyzine HCl 25 mg tablet 25 mg PO Q6H PRN #30 tab 04/17/21 10/06/21 Rx cyclobenzaprine 5 mg tablet 5 mg PO DAILY PRN 05/03/21 10/06/21 History ondansetron 4 mg disintegrating 4 mg PO Q8H PRN #30 tab 05/03/21 10/06/21 Rx tablet CPAP Supplies #1 ea 05/11/21 05/11/21 Rx ProAir HFA 90 mcg/actuation 2 puff INHALATION Q4 PRN #8.5 gm NS 05/11/21 10/06/21 Rx aerosol inhaler (albuterol sulfate) fluticasone fur. 200 mcg-umeclid 1 inh INHALATION DAILY #60 ea 05/11/21 10/06/21 Rx 62.5 mcg-vilant 25 mcg inhalat.powder (Trelegy Ellipta) ipratropium 0.5 mg-albuterol 3 mg 3 ml INH QID PRN #360 ml 05/11/21 10/06/21 Rx (2.5 mg base)/3 mL nebulization soln Past Med/Surg History Medical History Anxiety with depression Asthma Chronic obstructive pulmonary disease with hypoxia 3L NC PRN Pulm - Min [place] COPD exacerbation COVID Family history of colon cancer Sleep apnea, obstructive Yeast infection Surgical History H/O partial thyroidectomy 1990s d/t hemorrhaging?--unknown cause, no meds History of broken collarbone sx to repair History of carpal tunnel surgery of right wrist History of partial hysterectomy History of tooth extraction all teeth Family History Mother , from ovarian cancer Cancer Ovarian Sister Cancer Ovarian Father COPD (chronic obstructive pulmonary disease) Other No family history of adverse response to anesthesia Social History Smoking Status: Former smoker Tobacco Type: Cigarettes Age Started Using Tobacco: 17; Age Quit Using Tobacco: 1; packs per day: 1; Years Smoked: 43; Cigarettes Per Day: 20; Number of Years Since Quit: 1; Second Hand Exposure: No; Hx Alcohol Use: No Hx Substance Use: No Preferred Language: Yi 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 Ability: Effective 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 Beliefs That Will Affect Care: None marital status: Current Living Situation: Family Current Living Situation Comment: Lives with daughter Virgen Feels Safe at Home: Yes Assistive Devices: Glasses and Oxygen - Continuous Review of Systems Review of Systems: Mild distress and fatigue no headache, no visual changes no speech or swallowing issues no current chest pain, pressure or palpitations baseline shortness of breath, good air movement no cough or wheezes no abdominal pain, nausea or vomiting, diarrhea or constipation no dysuria, hematuria or frequency no focal joint pain or swelling no back pain, CVA tenderness or radicular pain no bruising, bleeding or rashes no focal signs of weakness or numbness or altered sensation no complaints of anxiety or depression.. Physical Exam Physical Exam: The patient appeared well nourished and normally developed. Vital signs as documented. Head exam is normocephalic atraumatic Neck is without JVD, thyromegaly, or carotid bruits. Lungs are with reasonable air movement Cardiac exam, Rhythm is regular.. No murmurs, rubs or gallops. Abdominal exam reveals normal bowel sounds, soft non tender, no masses Extremities are nonedematous and both pedal pulses are present Neurologic exam is alert and oriented, no focal loss of strength or sensation Skin is without bruises or rashes Psychologically is without concerns for anxiety or depression.. Results & Data Results & Data ([facility]) Vital Signs (Past 12 Hours) Vital Signs Temp Pulse Pulse Resp BP BP Pulse Ox 10/06/21 18:01 74 18 156/78 H 98 10/06/21 16:38 77 16 100/66 98 10/06/21 16:35 77 16 98 10/06/21 15:36 97.9 F 91 H 20 147/86 H 98 Diagnostic Findings Chest X-Ray 10/06/21 16:18 XR chest 1V portable CLINICAL HISTORY: Atypical chest pain. COMPARISON STUDY: Chest radiograph and chest CT May 03, 2021. FINDINGS: Lung volumes are normal. Lungs are clear. There is no pneumothorax or pleural effusion. Cardiac size is normal. Mediastinal contours are normal. There is no evidence for pulmonary edema. Emphysema is noted. IMPRESSION: No acute cardiopulmonary findings. Emphysema. Electronically signed by: Celestine Armendariz M.D. 10/06/2021 5:08 PM ECG Additional Comments: EKG is normal sinus rhythm without acute changes PG Care Time/CCT Total # of Minutes Spent Total Time Spent with Patient: Total time spent is greater than 50% in coordination of care (as documented) at patient's floor/unit and/or counseling patient: Coding Level of Care Code INT OBSERVATION CARE 50M LVL 2 Diagnoses Chronic respiratory failure with hypoxia J96.11 Anxiety with depression F41.8 Paroxysmal atrial tachycardia I47.1 Sleep apnea, obstructive G47.33 Chest pain R07.9
[2021-10-06] MEDS ORDERED: MoRPHine SULFATE 2 MG/ML CARP IV PRN (20:11)
[2021-10-06] MEDS ORDERED: MAGNESIUM HYDROXIDE SUSP 30 ML UDC PO PRN (20:11)
[2021-10-06] MEDS ORDERED: ALBUT/IPRATROP 3MG/0.5MG NEB 3 ML VIAL INH PRN (20:11)
[2021-10-06] MEDS ORDERED: hydrOXYzine HCl 25 MG TAB PO PRN (20:11)
[2021-10-06] MEDS ORDERED: ACETAMINOPHEN 325 MG TAB PO PRN (20:11)
[2021-10-06] MEDS ORDERED: ONDANSETRON 4 MG OD TAB PO PRN (20:11)
[2021-10-06] MEDS ORDERED: NITROGLYCERIN SL 0.4 MG/TAB TAB SL PRN (20:11)
[2021-10-06] MEDS ORDERED: LORazepam 0.5 MG TAB PO PRN (20:11)
[2021-10-06] MEDS ORDERED: ONDANSETRON INJ 2 MG/ML 2 ML VIAL IV PRN (20:11)
[2021-10-06] MEDS: HEPARIN SOD 5,000 UNIT/0.5 ML VIAL SQ SCH (21:37)
[2021-10-07] MEDS ORDERED: BENZONATATE 100 MG CAPSULE ONE (00:25)
[2021-10-07] MEDS ORDERED: COUGH DROP (SUGAR FREE) LOZ 24 LOZ/1 BOX BUCCAL PRN (02:35)
[2021-10-07] MEDS: HEPARIN SOD 5,000 UNIT/0.5 ML VIAL SQ SCH (08:07)
[2021-10-07 08:29] LABS: Hematocrit (blood only) 34.2 % (37-47); Hemoglobin 11.7 g/dL (12.0-16.0); Mean Corpuscular Hemoglobin 30.7 pg (25-34); Mean Corpuscular Hgb Conc 34.2 g/dL (32-36); Mean Corpuscular Volume 89.8 fL (80-100); Mean Platelet Volume 9.3 fL (7.4-10.4); Platelet Count 299 K/uL (130-400); RDW Standard Deviation 42.3 fL (36.4-46.3); Red Blood Count 3.81 M/uL (4.2-5.4); White Blood Count 4.57 K/uL (4.8-10.8)
[2021-10-07 08:50] LABS: BUN Creatinine Ratio 10.8 (10-20); Calcium 8.3 mg/dl (8.5-10.1); Chol HDL Ratio 3.3 (0-5); Creatinine Clr Calc Pharmacy 48.6 ml/min; Est GFR (African American) 73.7 ml/min; Est GFR (Non-African American) 63.6 ml/min; Magnesium 2.1 mg/dl (1.7-2.4)
[2021-10-07] MEDS ORDERED: ESCITALOPRAM OXALATE 10 MG TAB PO SCH (09:00)
[2021-10-07] MEDS ORDERED: CLOPIDOGREL BISULFATE 75 MG TAB PO SCH (09:00)
[2021-10-07] MEDS ORDERED: UMECLIDINIUM BROMIDE 62.5MCG/BLISTER 7 PUFFS/INHALER INH SCH (09:00)
[2021-10-07] MEDS ORDERED: BENZONATATE 100 MG CAPSULE PO PRN (09:00)
[2021-10-07] MEDS ORDERED: FLUTICASONE/VILANTEROL 200/25MCG 14 PUFFS/INHALER INH SCH (09:00)
[2021-10-07] MEDS ORDERED: ATROPINE SULFATE 0.1 MG/ML 10ML SYR IV ONE (10:58)
[2021-10-07] MEDS ORDERED: METOPROLOL TARTRATE 1 MG/ML VIAL IV ONE (10:59)
[2021-10-07] MEDS ORDERED: DOBUTamine HCL 12.5 MG/ML 20 ML VIAL IV ONE (10:59)
--- NOTE | 2021-10-07 11:17 | Electrocardiogram Report ---
Test Reason : Blood Pressure : / mmHG Vent. Rate : 076 BPM Atrial Rate : 076 BPM P-R Int : 114 ms QRS Dur : 082 ms QT Int : 396 ms P-R-T Axes : 044 071 072 degrees QTc Int : 445 ms Poor data quality, interpretation may be adversely affected Normal sinus rhythm Normal ECG When compared with ECG of 03-MAY-2021 16:58, No significant change was found Confirmed by Otf Banuelos ([id number]) on 10/07/2021 11:16:43 AM Referred By: REFERRED SELF Confirmed By:Otf Banuelos
[2021-10-07] MEDS ORDERED: ESMOLOL HCL INJ 10 MG/ML 10ML VIAL IV ONE (11:22)
--- NOTE | 2021-10-07 12:07 | Electrocardiogram Report ---
Test Reason : Blood Pressure : / mmHG Vent. Rate : 064 BPM Atrial Rate : 064 BPM P-R Int : 160 ms QRS Dur : 084 ms QT Int : 432 ms P-R-T Axes : 076 064 075 degrees QTc Int : 445 ms Normal sinus rhythm Nonspecific T wave abnormality Abnormal ECG When compared with ECG of 06-OCT-2021 16:36, (unconfirmed) No significant change was found Confirmed by Otf Banuelos ([id number]) on 10/07/2021 12:07:03 PM Referred By: REFERRED SELF Confirmed By:Otf Banuelos
[2021-10-07] MEDS ORDERED: FLUTICASONE PROPIONATE NA SPR 16 GM BTL NAE SCH (12:45)
--- NOTE | 2021-10-07 13:35 | XCELERA ---
[id number]
--- NOTE | 2021-10-08 22:45 | Electrocardiogram Report ---
Test Reason : Blood Pressure : / mmHG Vent. Rate : 078 BPM Atrial Rate : 078 BPM P-R Int : 148 ms QRS Dur : 074 ms QT Int : 366 ms P-R-T Axes : 079 075 079 degrees QTc Int : 417 ms Normal sinus rhythm Normal ECG When compared with ECG of 07-OCT-2021 05:15, Nonspecific T wave abnormality is no longer Present in Anterior leads Confirmed by Marcello Rodríguez ([id number]) on 10/08/2021 10:45:07 PM Referred By: REFERRED SELF Confirmed By:Marcello Rodríguez
== END 2021-10-07 15:54 | disposition home or self-care (01) ==
LOC: ED 15:32 → 2N 15:32 → SUATTDRO 18:33 → 2N 20:02

== ENCOUNTER 2021-12-17 11:52 | Observation (INO) ==
[2021-12-17 12:28] LABS: Basophils # (auto) 0.01 K/uL (0-0.2); Basophils % (auto) 0.2 %; Eosinophils # (auto) 0.08 K/uL (0-0.50); Eosinophils % (auto) 1.8 %; Hematocrit (blood only) 35.3 % (34.1-44.9); Hemoglobin 11.8 g/dl (12.0-16.0); Immature Granulocytes # (auto) 0.01 K/uL (0.00-0.02); Immature Granulocytes % (auto) 0.2 %; Lymphocytes # (auto) 0.85 K/uL (1.2-3.4); Mean Corpuscular Hemoglobin 30.1 pg (25.0-34.0); Mean Corpuscular Hgb Conc 33.4 g/dL (32.0-36.0); Mean Corpuscular Volume 90.1 fL (80.0-100.0); Mean Platelet Volume 9.3 fL (9.4-12.3); Monocytes # (auto) 0.26 K/uL (0.24-0.82); Monocytes % (auto) 5.8 %; Neutrophils # (auto) 3.27 K/uL (1.4-6.5); Platelet Count 258 K/uL (130-400); RDW Coefficient of Variation 12.4 % (11.5-14.5); RDW Standard Deviation 40.4 fL (36.4-46.3); Red Blood Count 3.92 M/uL (3.93-5.22); White Blood Count 4.48 K/ul (4.8-10.8)
[2021-12-17 12:45] LABS: Albumin Globulin Ratio 1.5 (0.9-2); Albumin Level 3.8 gm/dl (3.4-5.0); BUN Creatinine Ratio 22.1 (10-20); Bilirubin,Total 0.4 mg/dl (0.2-1.0); Calcium 8.4 mg/dl (8.5-10.1); Creatinine Clr Calc Pharmacy 58.6 ml/min; Est GFR (African American) 92.6 ml/min; Est GFR (Non-African American) 79.9 ml/min; Globulin 2.5 gm/dl (2.5-4.0); Potassium 3.9 mmol/L (3.5-5.1); Total Protein 6.3 gm/dl (6.0-8.3)
--- NOTE | 2021-12-17 12:58 | Emergency Department Note ---
Impression & Plan COPD exacerbation, COVID-19 ED Provider Note NAME: AVIVA MIMS AGE: 66 SEX: F : 1955 ARRIVES VIA: Walk-In INFORMANT: Patient, ED PROVIDER(S): Neto Kimball MD Chief Complaint: Shortness of breath HPI: Patient presents with shortness of breath which is been ongoing approximately 1 week. The patient does have shortness of breath just at rest but it is significantly worse with exertion states she is getting up from her bed to the patient restroom would make her very short of breath. Patient denies any fevers or chills. The patient is not vaccinated for COVID and has had prior COVID. The patient is on 3 L at all times to prior history of COPD. The patient had been using medications at home and breathing treatments but without significant improvement in symptoms. The patient does follow with Dr. Gama. Patient denies any chest pains or leg swelling. Patient denies any improving factors. The patient does have an occasional productive cough. Patient denies any nausea vomiting or diarrhea. ROS: See HPI for pertinent positives and negatives. A total of 10 systems were reviewed and otherwise negative. Past medical history: See below Surgical history: See below Social history: See below Physical Exam: GENERAL: Mildly uncomfortable in appearance, wearing glasses and a mask, nasal cannula in place, mild tachypnea noted EYE EXAM: Normal conjunctiva. PERRL, no anisocoria and EOM's grossly intact w/o pain. NECK: Supple, no nuchal rigidity, no adenopathy, non-tender. No signs of meningismus. FROM of the neck with good chin to chest and neck extension. No stridor. LUNGS: Diffuse inspiratory and expiratory wheezes throughout, mild tachypnea noted. HEART: NSR, no MRG. ABDOMEN: Abdomen soft, non-tender, normo-active bowel sounds, no masses, no rebound or guarding. BACK: No CVA TTP. SKIN: No rashes and no bruising. UPPER EXTREMITIES: Upper extremities are grossly normal. LOWER EXTREMITIES: Grossly normal, no edema. Negative Homans' sign bilaterally. NEURO EXAM: A&O x3, cranial nerves II-XII grossly intact, normal speech, moves all 4 extremities. Differential diagnoses: Reactive airway disease, pneumonia, pneumothorax, COPD, CHF, infections, cardiac ischemia, pulmonary embolism, musculoskeletal, gastrointestinal, as well as other pathologies. Course: Patient was seen and evaluated the bedside. Full history physical exam was performed. EKG interpreted by me Normal sinus rhythm, rate of 81, normal intervals, normal axis, T wave version in V2, no obvious ST elevations Imaging Studies: See Below Cardiac monitoring: An order was placed for continuous cardiac monitoring. The monitor shows a rate of 82 with sinus patient presents due to concern for short ness of breath. The patient did have blood work completed. rRhythm. MDM: Patient was noted to be COVID-positive. Chest x-ray was ordered and patient did receive IV fluids magnesium steroids and breathing treatment. The patient does have mild leukopenia with very mild anemia hemoglobin 11.8. The patient's kidney function is unremarkable. Patient did have a blood gas also ordered. Calcium slightly low at 8.4. LFTs unremarkable with negative troponin. Pro-Alonzo not elevated. Patient's chest x- ray shows emphysematous change. It is through the on-call hospitalist Dr. New and the patient was admitted to the medicine service. Patient did have mild hypercarbia with VBG pH is 7.29 and PCO2 of 62. Additional breathing treatments deferred to the inpatient team at this time. Upon reassessment the patient did look improved after her breathing treatments. The patient did receive a small amount of Ativan as the patient was feeling shaky. Upon subsequent reassessment the patient was feeling better Past Med/Surg History Medical History Anxiety with depression Asthma Chronic obstructive pulmonary disease with hypoxia 3L NC PRN Pulm - Min [place] COPD exacerbation COVID Family history of colon cancer Sleep apnea, obstructive Yeast infection Surgical History H/O partial thyroidectomy 1990s d/t hemorrhaging?--unknown cause, no meds History of broken collarbone sx to repair History of carpal tunnel surgery of right wrist History of partial hysterectomy History of tooth extraction all teeth Family History Mother , from ovarian cancer Cancer Ovarian Sister Cancer Ovarian Father COPD (chronic obstructive pulmonary disease) Other No family history of adverse response to anesthesia Social History Smoking Status: Never smoker Tobacco Type: Cigarettes Age Started Using Tobacco: 17; Age Quit Using Tobacco: 1; packs per day: 1; Years Smoked: 43; Cigarettes Per Day: 20; Number of Years Since Quit: 1; Second Hand Exposure: No; Hx Alcohol Use: No Hx Substance Use: No Preferred Language: Polish 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 Ability: Effective 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 Beliefs That Will Affect Care: None marital status: Current Living Situation: Family Current Living Situation Comment: Lives with daughter Virgen Feels Safe at Home: Yes Assistive Devices: Glasses and Oxygen - Continuous Allergies Allergies Allergy/AdvReac Type Severity Reaction Status Date / Time aspirin AdvReac Intermediate GI SYMPTOMS Verified 12/17/21 13:35 Home Meds Home Medications Medication Instructions Recorded Confirmed escitalopram oxalate 10 mg tablet 15 mg PO DAILY PRN Anxiety 12/17/21 12/17/21 ibuprofen 200 mg tablet 400 mg PO Q6H PRN Pain 12/17/21 12/17/21 ipratropium bromide 21 mcg (0.03 2 spray intranasal DAILY 12/17/21 12/17/21 %) nasal spray Previous Rx's Medication Instructions Recorded CPAP Machine #1 ea 12/06/19 CPAP Supplies #1 ea 05/11/21 ipratropium 0.5 mg-albuterol 3 mg 3 ml inhalation QID PRN Shortness 05/11/21 (2.5 mg base)/3 mL nebulization Of Breath #360 mL soln fluticasone fur. 200 mcg-umeclid 1 inh inhalation DAILY #60 ea 11/24/21 62.5 mcg-vilant 25 mcg inhalat.powder (Trelegy Ellipta) ProAir HFA 90 mcg/actuation 2 puff inhalation Q4 PRN Shortness 11/27/21 aerosol inhaler (albuterol sulfate) Of Breath Or Wheezing #8.5 grams Results & Data (ED) Vital Signs Vital Signs - 24 hr 12/17/21 11:59 12/17/21 14:24 Temperature 36.9 C Temperature Source Temporal Artery Scan Pulse Rate 75 Pulse Rate [Apical] 65 Respiratory Rate 20 20 Respiratory Effort / Characteristics Non-Labored Non-Labored Respiratory Depth Normal Normal Blood Pressure 145/86 H Blood Pressure [Right Arm] 132/72 Blood Pressure Mean 105 Blood Pressure Mean [Right Arm] 92 Pulse Oximetry 98 97 Oxygen Delivery Method Nasal Cannula Room Air Oxygen Flow Rate 3 2 Sepsis Recent Fever Within 48 Hours No Sepsis New/Unexplained Change in Mental Status N/A Sepsis Action Taken by Nursing No Action Required Home Medications Current Medication List: was personally reviewed by me Laboratory Data Attestation: I reviewed the patient's lab results. Result diagrams: 12/17/21 12:13 12/17/21 12:13 Lab Results 12/17/21 12/17/21 12/17/21 Range/Units 12:00 12:13 12:13 WBC 4.48 L (4.8-10.8) K/ul RBC 3.92 L (3.93-5.22) M/uL Hgb 11.8 L (12.0-16.0) g/dl Hct 35.3 (34.1-44.9) % MCV 90.1 (80.0-100.0) fL MCH 30.1 (25.0-34.0) pg MCHC 33.4 (32.0-36.0) g/dL RDW Std Deviation 40.4 (36.4-46.3) fL RDW Coeff of Audrey 12.4 (11.5-14.5) % Plt Count 258 (130-400) K/uL MPV 9.3 L (9.4-12.3) fL Immature Gran % (Auto) 0.2 % Neut % (Auto) 73.0 % Lymph % (Auto) 19.0 % Luce % (Auto) 5.8 % Eos % (Auto) 1.8 % Baso % (Auto) 0.2 % Neut # (Auto) 3.27 (1.4-6.5) K/uL Lymph # (Auto) 0.85 L (1.2-3.4) K/uL Luce # (Auto) 0.26 (0.24-0.82) K/uL Eos # (Auto) 0.08 (0-0.50) K/uL Baso # (Auto) 0.01 (0-0.2) K/uL Immature Gran # (Auto) 0.01 (0.00-0.02) K/uL VBG pH (7.36-7.41) VBG pCO2 (38-50) mmHg VBG pO2 mmHg VBG HCO3 mmol/L VBG O2 Saturation % VBG Base Excess mEq/L Sodium 141 (136-145) mmol/L Potassium 3.9 (3.5-5.1) mmol/L Chloride 106 (98-107) mmol/L Carbon Dioxide 30 (21-32) mmol/L Anion Gap 5 (3-11) BUN 17 (6-23) mg/dl Creatinine 0.77 (0.6-1.2) mg/dl Est Cr Clr Drug Dosing 58.6 ml/min Est GFR ( Amer) 92.6 ml/min Est GFR (Non-Af Amer) 79.9 ml/min BUN/Creatinine Ratio 22.1 H (10-20) Glucose 123 H (70-99(Fasting)) mg/dl Calcium 8.4 L (8.5-10.1) mg/dl Magnesium (1.7-2.4) mg/dl Total Bilirubin 0.4 (0.2-1.0) mg/dl AST 15 (13-39) U/L ALT 11 (7-52) U/L Alkaline Phosphatase 81 (34-104) U/L Troponin I High Sens (0-14) pg/ml Total Protein 6.3 (6.0-8.3) gm/dl Albumin 3.8 (3.4-5.0) gm/dl Globulin 2.5 (2.5-4.0) gm/dl Albumin/Globulin Ratio 1.5 (0.9-2) Procalcitonin (0-0.5) ng/ml SARS-CoV-2, RNA, NAAT POSITIVE A* (NEGATIVE) 12/17/21 12/17/21 12/17/21 Range/Units 12:13 12:13 14:42 WBC (4.8-10.8) K/ul RBC (3.93-5.22) M/uL Hgb (12.0-16.0) g/dl Hct (34.1-44.9) % MCV (80.0-100.0) fL MCH (25.0-34.0) pg MCHC (32.0-36.0) g/dL RDW Std Deviation (36.4-46.3) fL RDW Coeff of Audrey (11.5-14.5) % Plt Count (130-400) K/uL MPV (9.4-12.3) fL Immature Gran % (Auto) % Neut % (Auto) % Lymph % (Auto) % Luce % (Auto) % Eos % (Auto) % Baso % (Auto) % Neut # (Auto) (1.4-6.5) K/uL Lymph # (Auto) (1.2-3.4) K/uL Luce # (Auto) (0.24-0.82) K/uL Eos # (Auto) (0-0.50) K/uL Baso # (Auto) (0-0.2) K/uL Immature Gran # (Auto) (0.00-0.02) K/uL VBG pH 7.29 L (7.36-7.41) VBG pCO2 62 H (38-50) mmHg VBG pO2 22 mmHg VBG HCO3 30 mmol/L VBG O2 Saturation < 60.0 % VBG Base Excess 1.7 mEq/L Sodium (136-145) mmol/L Potassium (3.5-5.1) mmol/L Chloride (98-107) mmol/L Carbon Dioxide (21-32) mmol/L Anion Gap (3-11) BUN (6-23) mg/dl Creatinine (0.6-1.2) mg/dl Est Cr Clr Drug Dosing ml/min Est GFR ( Amer) ml/min Est GFR (Non-Af Amer) ml/min BUN/Creatinine Ratio (10-20) Glucose (70-99(Fasting)) mg/dl Calcium (8.5-10.1) mg/dl Magnesium 1.9 (1.7-2.4) mg/dl Total Bilirubin (0.2-1.0) mg/dl AST (13-39) U/L ALT (7-52) U/L Alkaline Phosphatase (34-104) U/L Troponin I High Sens 4.0 (0-14) pg/ml Total Protein (6.0-8.3) gm/dl Albumin (3.4-5.0) gm/dl Globulin (2.5-4.0) gm/dl Albumin/Globulin Ratio (0.9-2) Procalcitonin < 0.05 (0-0.5) ng/ml SARS-CoV-2, RNA, NAAT (NEGATIVE) Administered Medications Discontinued Medications Albuterol (Albut/Ipratrop 3mg/0.5mg Neb 3 Ml Vial) 6 ml INH ONE STA Stop: 12/17/21 13:16 Last Admin: 12/17/21 14:14 Dose: 6 ml Documented By: LUNA Sodium Chloride (Nss 1000ml) 1,000 mls @ 999 mls/hr IV .Q1H1M QIAN Stop: 12/17/21 14:15 Last Infusion: 12/17/21 15:14 Dose: 0 mls/hr Documented By: Admin: 12/17/21 14:14 Dose: 999 mls/hr Documented By: LUNA Magnesium Sulfate/Dextrose (Magnesium Sulfate / D5w) 1 gm in 100 mls @ 100 mls/hr IV Q1H QIAN Stop: 12/17/21 15:14 Last Admin: 12/17/21 16:27 Dose: 100 mls/hr Documented By: Infusion: 12/17/21 15:15 Dose: 0 mls/hr Documented By: Admin: 12/17/21 14:15 Dose: 100 mls/hr Documented By: LUNA Lorazepam (Lorazepam 2 Mg/1 Ml Vial) 0.5 mg IV NOW STA; Protocol Stop: 12/17/21 14:59 Last Admin: 12/17/21 15:08 Dose: 0.5 mg Documented By: LUNA Methylprednisolone (Methylprednisolone 125 Mg/2 Ml Vial) 125 mg IV NOW STA Stop: 12/17/21 13:16 Last Admin: 12/17/21 14:15 Dose: 125 mg Documented By: LUNA Imaging Data Radiologist's Impression: Chest X-Ray 12/17/21 13:15 SINGLE VIEW CHEST CLINICAL HISTORY: Dyspnea. Covid. FINDINGS: An AP, portable, upright chest radiograph is compared to study dated 11/07/2021 and correlated with chest CT dated 05/03/2021. The cardiomediastinal silhouette is top normal for projection. Enlargement of the central pulmonary vessels suggest pulmonary artery hypertension. Advanced emphysema and chronic interstitial thickening is similar to previous. No airspace consolidation or large pleural effusion is identified. Thoracic parenchyma scarring are seen throughout both lung. No pneumothorax is seen. The skeletal structures are osteopenic. The bony thorax is grossly intact. IMPRESSION: Advanced emphysema with no acute cardiopulmonary abnormality identified. ACT 112: Negative or not required by law. Electronically signed by: Salbador Wilkerson M.D. 12/17/2021 3:38 PM Discharge Plan Visit Data Chief Complaint: Flu Like Symptoms Stated Complaint: SHORTNESS OF BREATH ED Provider: Neto Kimball Discharge Problem: COPD exacerbation, COVID-19 Patient Disposition: Admitted As Inpatient Forms Stand Alone Forms: [facility] Prescriptions Prescriptions: No Action Trelegy Ellipta 200-62.5-25 mcg blister with device 1 inh inhalation DAILY Qty: 60 5RF albuterol sulfate [ProAir HFA] 90 mcg/actuation HFA aerosol inhaler 2 puff Inhalation Q4 PRN (Reason: Shortness Of Breath Or Wheezing) Qty: 8.5 3RF (DME) CPAP Machine Misc See Rx Instructions .MEDSUPPLY Qty: 1 0RF Rx Instructions: Auto-titration CPAP with pressure range between 5 cm H2O and 15 cm H2O with humidification. Lifetime need. ipratropium-albuterol 0.5 mg-3 mg(2.5 mg base)/3 mL solution for nebulization 3 ml INH QID PRN (Reason: Shortness Of Breath) Qty: 360 5RF (DME) CPAP Supplies Misc See Rx Instructions .MEDSUPPLY Qty: 1 0RF Rx Instructions: Refitting of the mask. G47.33 ibuprofen 200 mg Tablet 400 mg PO Q6H PRN (Reason: Pain) ipratropium bromide 21 mcg (0.03 %) spray,non-aerosol 2 spray INTRANASAL DAILY escitalopram oxalate 10 mg tablet 15 mg PO DAILY PRN (Reason: Anxiety) Referrals Referrals: Roshan Crandall MD [Primary Care Provider] -
[2021-12-17] MEDS ORDERED: ALBUT/IPRATROP 3MG/0.5MG NEB 3 ML VIAL INH STA (13:15)
[2021-12-17] MEDS ORDERED: methylPREDNISolone 125 MG/2 ML VIAL IV STA (13:15)
[2021-12-17] MEDS ORDERED: SODIUM CHLORIDE 0.9% 1000ML 1,000 ML IV SCH (13:15)
--- NOTE | 2021-12-17 13:48 | History & Physical Report ---
Date of Service December 17, 2021 Assessment & Plan (1) COVID-19: Plan: Unvaccinated but previously had COVID-19 twice Given unclear duration will defer on antiviral agents. Unclear how much this is contributing although nasal congestion and mildly reduced WBC fits with this diagnosis. No CXR or lung auscultation findings. Dexamethasone as below (2) COPD exacerbation: Plan: Will mainly treat as COPD exacerbation with dexamethasone 6mg IV BID and Combivent inhalers QID (will try to reduce aerosol procedures due to COVID-19) Azithromycin 500mg PO now then 250mg PO daily for 4 days [facility] or hospital formulary equivalent (3) COPD (chronic obstructive pulmonary disease): Plan: As above (4) Chronic respiratory failure with hypoxia: Plan: Wean O2 to aim sats 88-92%. She previously needed 3LPM O2 on exertion although saturations 92% at rest at last pulmonology visit. 2 step tomorrow (5) Acute respiratory failure with hypercapnia: Plan: Utilize BiPAP HS ABG with AM labs (6) Anxiety with depression: Plan: Unclear why Lexapro is PRN Very anxious in the ER. Recommend using her Lexapro daily and while in hospital will use lorazepam 0.5mg PO q8h PRN given severity of symptoms in the ER (7) Sleep apnea, obstructive: Plan: BiPAP HS Patient not tolerating CPAP at home which explains her apneic episodes Plan VTE Prophylaxis - Lovenox 40mg SQ daily Diet - regular Disposition - observation status to med/surg Admission and Anticipated Discharge Date Admission Date: December 17, 2021 History of Present Illness Chief Complaint: Shortness of breath Primary Care Provider: Roshan Crandall MD Masha Mcneil is a 66 year old female with COPD and chronic hypoxic respiratory failure who presents to the ER with cough, nasal congestion, shortness of breath and concern for sleep apneic episodes. She reports nasal congestion for 1 week with intermittent frontal sinus pressure. Significant post nasal drip and dry nose with is causing her to cough more. She notes intermittent fever (highest 100.3 degrees Fahrenheit a couple of days last week with associated chills. She was given a Duoneb in the ER which she reports help her shortness of breath but is very temporary. She has been using her albuterol 3-4 times a day at home but only helps for around 5 minutes. She has not been on a full course of steroids since October. She wears 3LPM O2 on exertion chronically. Per recent pulmonology note on November 27 O2 sats were 92% on room air at baseline but drop to 82% on room air @ 2 minutes. Her oxygen was turned up to 3LPM O2 on exertion from 2LPM at that time. Although she thinks this was because she was getting increasingly short of breath even at this visit and even took some left over prednisone that day of the test. She has been on chronic oxygen steady for the last year. In the ER RAMY-COV-2 PCR positive. She is close to her baseline O2 requirement with O2 sats 88% on room air (noted to be 92% at most recent pulm office visit as above). VBG however concerning for respiratory acidosis with hypercapnia. She was therefore referred to medicine for admission and ongoing management of COVID-19. She reports having COVID-19 twice before - previously did not require inpatient treatment. She is not vaccinated. Allergies Allergy/AdvReac Type Severity Reaction Status Date / Time aspirin AdvReac Intermediate GI SYMPTOMS Verified 12/17/21 13:35 Home Medications Medication Instructions Recorded Confirmed Type CPAP Machine #1 ea 12/06/19 05/11/21 Rx CPAP Supplies #1 ea 05/11/21 05/11/21 Rx ipratropium 0.5 mg-albuterol 3 mg 3 ml inhalation QID PRN Shortness 05/11/21 12/17/21 Rx (2.5 mg base)/3 mL nebulization Of Breath #360 mL soln fluticasone fur. 200 mcg-umeclid 1 inh inhalation DAILY #60 ea 11/24/21 12/17/21 Rx 62.5 mcg-vilant 25 mcg inhalat.powder (Trelegy Ellipta) ProAir HFA 90 mcg/actuation 2 puff inhalation Q4 PRN Shortness 11/27/21 12/17/21 Rx aerosol inhaler (albuterol sulfate) Of Breath Or Wheezing #8.5 grams escitalopram oxalate 10 mg tablet 15 mg PO DAILY PRN Anxiety 12/17/21 12/17/21 History ibuprofen 200 mg tablet 400 mg PO Q6H PRN Pain 12/17/21 12/17/21 History ipratropium bromide 21 mcg (0.03 2 spray intranasal DAILY 12/17/21 12/17/21 His tory %) nasal spray Past Med/Surg History Medical History Anxiety with depression Asthma Chronic obstructive pulmonary disease with hypoxia 3L NC PRN Pulm - Min [place] COPD exacerbation COVID Family history of colon cancer Sleep apnea, obstructive Yeast infection Surgical History H/O partial thyroidectomy 1990s d/t hemorrhaging?--unknown cause, no meds History of broken collarbone sx to repair History of carpal tunnel surgery of right wrist History of partial hysterectomy History of tooth extraction all teeth Family History Mother , from ovarian cancer Cancer Ovarian Sister Cancer Ovarian Father COPD (chronic obstructive pulmonary disease) Other No family history of adverse response to anesthesia Social History Smoking Status: Former smoker Tobacco Type: Cigarettes Age Started Using Tobacco: 17; Age Quit Using Tobacco: 1; packs per day: 1; Years Smoked: 43; Cigarettes Per Day: 20; Number of Years Since Quit: 1; Second Hand Exposure: No; Do You Dip or Chew Tobacco: No; Tobacco Cessation Education Requested by Patient: No Hx Alcohol Use: No Hx Substance Use: No Preferred Language: Arabic 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 Ability: Effective 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 Beliefs That Will Affect Care: None marital status: Current Living Situation: Family Current Living Situation Comment: Lives with daughter Virgen Other Information That Helps Us Care for You: No Feels Safe at Home: Yes Safety Concerns: Feels Safe At This Time Assistive Devices: Denture - Upper, Denture - Lower, Glasses and Oxygen - Continuous Review of Systems Review of Systems: All systems reviewed & are unremarkable except as noted in HPI & below Physical Exam Constitutional: well developed; + not well nourished and no acute distress Eyes: + anicteric sclerae; normal pupil size ENMT: external ear and nose normal, oropharynx normal Neck: trachea midline, no thyromegaly Respiratory: + respiratory distress, + uses accessory muscles and + prolonged expiratory phase Auscultation: + wheezes (expiratory posteriorly); no diminished lung sounds, no crackles, no rales and no rhonchi Cardiovascular: RRR, no murmur, no edema Gastrointestinal (Abdomen): normal bowel sounds, soft, nontender, no hepatosplenomegaly Musculoskeletal: no cyanosis or clubbing, extremities motor strength 5/5 Skin: no rashes, warm and dry Neurologic: moves all extremities and awake; not confused Psychiatric: A+Ox3, euthymic affect Results & Data Results & Data ([facility]) Vital Signs (Past 12 Hours) Vital Signs Temp Pulse Resp BP Pulse Ox O2 Del Method O2 Flow Rate 12/17/21 11:59 36.9 C 75 20 145/86 H 98 Nasal Cannula 3 Laboratory Results Abnormal lab results 12/17/21 12/17/21 12/17/21 Range/Units 12:00 12:13 12:13 WBC 4.48 L (4.8-10.8) K/ul RBC 3.92 L (3.93-5.22) M/uL Hgb 11.8 L (12.0-16.0) g/dl MPV 9.3 L (9.4-12.3) fL Lymph # (Auto) 0.85 L (1.2-3.4) K/uL BUN/Creatinine Ratio 22.1 H (10-20) Glucose 123 H (70-99(Fasting)) mg/dl Calcium 8.4 L (8.5-10.1) mg/dl SARS-CoV-2, RNA, NAAT POSITIVE A* (NEGATIVE) Diagnostic Findings SINGLE VIEW CHEST CLINICAL HISTORY: Dyspnea. Covid. FINDINGS: An AP, portable, upright chest radiograph is compared to study dated 11/07/2021 and correlated with chest CT dated 05/03/2021. The cardiomediastinal silhouette is top normal for projection. Enlargement of the central pulmonary vessels suggest pulmonary artery hypertension. Advanced emphysema and chronic interstitial thickening is similar to previous. No airspace consolidation or large pleural effusion is identified. Thoracic parenchyma scarring are seen throughout both lung. No pneumothorax is seen. The skeletal structures are osteopenic. The bony thorax is grossly intact. IMPRESSION: Advanced emphysema with no acute cardiopulmonary abnormality identified. Medications Administered ER Medications Given: NSS 1L bolus Mg sulphate 1g IV Duoneb 6ml Solu-medrol 125mg IV ECG Indication: SOB/dyspnea Rate (beats per minute): 77 Rhythm: normal sinus Findings: no acute ischemic change Comparison ECG Date: from (November 07, 2021) Change: no significant change Code Status & VTE Plan Code Status Full VTE Prophylaxis Plan VTE Prophylaxis will be ordered: Yes PG Care Time/CCT Total # of Minutes Spent Total Time Spent with Patient: Total time spent is greater than 50% in coordination of care (as documented) at patient's floor/unit and/or counseling patient: Coding Level of Care Code INT OBSERVATION CARE 50M LVL 2 Diagnoses COVID-19 U07.1 COPD exacerbation J44.1 COPD (chronic obstructive pulmonary disease) J44.9 COPD type: unspecified COPD Chronic respiratory failure with hypoxia J96.11 Acute respiratory failure with hypercapnia J96.02 Anxiety with depression F41.8 Sleep apnea, obstructive G47.33 (1) COPD (chronic obstructive pulmonary disease) COPD type: unspecified COPD Qualified Code(s): J44.9 - Chronic obstructive pulmonary disease, unspecified
[2021-12-17] MEDS: MAGNESIUM SULFATE / D5W 1 GM/100 ML BAG IV SCH ×2 (14:15→16:27)
[2021-12-17 14:58] LABS: Magnesium 1.9 mg/dl (1.7-2.4)
[2021-12-17] MEDS ORDERED: LORazepam 2 MG/1 ML VIAL IV STA (14:58)
[2021-12-17 15:07] LABS: Base Excess VBG 1.7 mEq/L; HCO3 VBG 30 mmol/L; Oxygen Saturation VBG < 60.0 %; PCO2 VBG 62 mmHg (38-50); PO2 VBG 22 mmHg; pH VBG 7.29 (7.36-7.41)
--- NOTE | 2021-12-17 15:40 | XRay Report ---
SINGLE VIEW CHEST CLINICAL HISTORY: Dyspnea. Covid. FINDINGS: An AP, portable, upright chest radiograph is compared to study dated 11/07/2021 and correlat ed with chest CT dated 05/03/2021. The cardiomediastinal silhouette is top normal for projection. Enla rgement of the central pulmonary vessels suggest pulmonary artery hypertension. Advanced emphysema an d chronic interstitial thickening is similar to previous. No airspace consolidation or large pleural effusion is identified. Thoracic parenchyma scarring are seen throughout both lung. No pneumothorax i s seen. The skeletal structures are osteopenic. The bony thorax is grossly intact. IMPRESSION: Advanced emphysema with no acute cardiopulmonary abnormality identified. ACT 112: Negative or not required by law. Electronically signed by: Salbador Wilkerson M.D. 12/17/2021 3:38 PM
[2021-12-17] MEDS ORDERED: LORazepam 0.5 MG TAB PO PRN (19:32)
[2021-12-17] MEDS ORDERED: IPRATROPIUM BROMIDE/ALBUTEROL respimat INH INH SCH (19:32)
[2021-12-17] MEDS ORDERED: ONDANSETRON INJ 2 MG/ML 2 ML VIAL IV PRN (19:32)
[2021-12-17] MEDS ORDERED: DEXTROMETHORPHAN POLYMR COMPLX 30 MG/5 ML UDP PO PRN (19:32)
[2021-12-17] MEDS ORDERED: POLYETHYLENE (MIRALAX) 17 GM PACK PO PRN (19:32)
[2021-12-17] MEDS: ALBUTEROL HFA 8 GM INHALER INH SCH (20:02)
[2021-12-17] MEDS: IPRATROPIUM BROMIDE HFA INHALER INH SCH (20:02)
[2021-12-17] MEDS: SODIUM CHLORIDE 0.65% NA SOLN 45 ML (OCEAN) SCH (20:26)
[2021-12-17] MEDS: guaiFENesin 600 MG TABCR PO SCH (20:26)
[2021-12-17] MEDS: dexAMETHasone 6 MG in SYRINGE 0 ML IV SCH (20:26)
[2021-12-17] MEDS ORDERED: AZITHROMYCIN 250 MG TAB PO STA (21:15)
[2021-12-17] MEDS: ENOXAPARIN INJ 40 MG/0.4 ML SYR SQ SCH (21:48)
[2021-12-17] MEDS: ACETAMINOPHEN 325 MG TAB PO PRN (21:48)
[2021-12-17] MEDS ORDERED: KETOROLAC TROMETHAMINE 15 MG/ML VIAL IV ONE (23:24)
[2021-12-18 06:33] LABS: Hematocrit (blood only) 31.7 % (34.1-44.9); Hemoglobin 10.8 g/dl (12.0-16.0); Mean Corpuscular Hgb Conc 34.1 g/dL (32.0-36.0); Mean Corpuscular Volume 88.1 fL (80.0-100.0); Mean Platelet Volume 9.5 fL (9.4-12.3); Platelet Count 247 K/uL (130-400); RDW Coefficient of Variation 11.9 % (11.5-14.5); RDW Standard Deviation 38.5 fL (36.4-46.3); White Blood Count 2.87 K/ul (4.8-10.8)
[2021-12-18 06:48] LABS: Base Excess ABG -0.7 mEq/L (-9-1.8); HCO3 ABG 24 mmol/L (19-24); Oxygen Saturation ABG 99.8 % (90-95); PCO2 ABG 40 mmHg (35-46); PO2 ABG 85 mmHg (80-95); pH ABG 7.39 (7.35-7.45)
[2021-12-18 06:55] LABS: Allen Test Pos (Pos)
[2021-12-18 07:07] LABS: BUN Creatinine Ratio 26.2 (10-20); Calcium 8.1 mg/dl (8.5-10.1); Creatinine Clr Calc Pharmacy 53.8 ml/min; Est GFR (African American) 83.4 ml/min; Est GFR (Non-African American) 71.9 ml/min; Potassium 4.3 mmol/L (3.5-5.1)
[2021-12-18 07:10] LABS: Immature Granulocytes # (auto) 0.01 K/uL (0.00-0.02); Immature Granulocytes % (auto) 0.3 %; Lymphocytes # (auto) 0.57 K/uL (1.2-3.4); Lymphocytes % (auto) 19.9 %; Monocytes % (auto) 3.5 %; Neutrophils # (auto) 2.19 K/uL (1.4-6.5); Neutrophils % (auto) 76.3 %
[2021-12-18] MEDS: IPRATROPIUM BROMIDE HFA INHALER INH SCH ×4 (07:13→19:25)
[2021-12-18] MEDS: ALBUTEROL HFA 8 GM INHALER INH SCH ×4 (07:13→19:24)
[2021-12-18] MEDS: SODIUM CHLORIDE 0.65% NA SOLN 45 ML (OCEAN) SCH ×2 (07:43→20:48)
[2021-12-18] MEDS: dexAMETHasone 6 MG in SYRINGE 0 ML IV SCH (07:44)
[2021-12-18] MEDS: UMECLIDINIUM/VILANTEROL 62.5/25MCG 7 PUFFS/INHALER INH SCH (07:45)
[2021-12-18] MEDS: FLUTICASONE FUROATE 200MCG 14 PUFFS/INHALER INH SCH (07:45)
[2021-12-18] MEDS: AZITHROMYCIN 250 MG TAB PO SCH (07:46)
[2021-12-18] MEDS: guaiFENesin 600 MG TABCR PO SCH ×2 (07:46→20:47)
[2021-12-18] MEDS: ESCITALOPRAM OXALATE 10 MG TAB PO SCH (07:46)
--- NOTE | 2021-12-18 09:12 | Hospitalist Progress Note ---
Date of Service December 18, 2021 Assessment & Plan (1) COVID-19: Plan: Unvaccinated but previously had COVID-19 twice Given unclear duration will defer on antiviral agents. Unclear how much this is contributing although nasal congestion and mildly reduced WBC fits with this diagnosis. No CXR or lung auscultation findings. Dexamethasone as below (2) COPD exacerbation: Plan: Will mainly treat as COPD exacerbation with dexamethasone 6mg IV BID and Combivent inhalers QID (will try to reduce aerosol procedures due to COVID-19) Azithromycin 500mg PO now then 250mg PO daily for 4 days Continue her usual [facility] Ellip or hospital formulary equivalent (3) COPD (chronic obstructive pulmonary disease): Plan: As above (4) Chronic respiratory failure with hypoxia: Plan: Wean O2 to aim sats 88-92%. She previously needed 3LPM O2 on exertion although saturations 92% at rest at last pulmonology visit. 2 step tomorrow (5) Acute respiratory failure with hypercapnia: Plan: Utilize BiPAP HS ABG with AM labs (6) Anxiety with depression: Plan: Unclear why Lexapro is PRN Very anxious in the ER. Recommend using her Lexapro daily and while in hospital will use lorazepam 0.5mg PO q8h PRN given severity of symptoms in the ER (7) Sleep apnea, obstructive: Plan: BiPAP HS Patient not tolerating CPAP at home which explains her apneic episodes Plan VTE Prophylaxis - Lovenox 40mg SQ daily Diet - regular Disposition - observation status to med/surg Admission and Anticipated Discharge Date Admission Date: December 17, 2021 Subjective pt still with subjective SOB, her feeling of shortness of breath add into her distress, this likely is unfortunately processive COPD Review of Systems Review of Systems: Moderate distress and fatigue no headache, no visual changes no speech or swallowing issues no chest pain, pressure or palpitations shortness of breath with exertion and at rest no abdominal pain, nausea or vomiting, diarrhea or constipation no dysuria, hematuria or frequency no focal joint pain or swelling no back pain, CVA tenderness or radicular pain no bruising, bleeding or rashes no focal signs of weakness or numbness or altered sensation no complaints of anxiety or depression.. Physical Exam Physical Exam: The patient appeared well nourished and normally developed. Vital signs as documented. Head exam is normocephalic atraumatic Neck is without JVD, thyromegaly, or carotid bruits. Lungs are clear to auscultation, no focal loss of breath sounds, no wheezes Cardiac exam, Rhythm is regular.. No murmurs, rubs or gallops. Abdominal exam reveals normal bowel sounds, soft non tender, no masses Extremities are nonedematous and both pedal pulses are present Neurologic exam is alert and oriented, no focal loss of strength or sensation Skin is without bruises or rashes Psychologically is without concerns for anxiety or depression.. Results & Data Results & Data ([facility]) Vital Signs (Past 12 Hours) Vital Signs Temp Pulse Pulse Pulse Pulse Pulse Pulse 12/18/21 07:45 12/18/21 07:35 78 94 H 77 76 12/18/21 07:18 70 12/18/21 03:40 75 12/17/21 22:10 75 12/17/21 21:51 97.5 F L 78 Resp Resp Resp Resp Resp BP Pulse Ox 12/18/21 07:45 12/18/21 07:35 18 24 16 16 12/18/21 07:18 16 94 12/18/21 03:40 20 94 12/17/21 22:10 22 94 12/17/21 21:51 18 128/70 94 Pulse Ox Pulse Ox Pulse Ox Pulse Ox O2 Del Method O2 Flow Rate O2 Flow Rate 12/18/21 07:45 Nasal Cannula 2 12/18/21 07:35 91 85 L 92 93 2 12/18/21 07:18 Nasal Cannula 2 12/18/21 03:40 2 12/17/21 22:10 2 12/17/21 21:51 Nasal Cannula 2 PG Care Time/CCT Total # of Minutes Spent Total Time Spent with Patient: Total time spent is greater than 50% in coordination of care (as documented) at patient's floor/unit and/or counseling patient: Coding Level of Care Code 13092 Subseq Hosp Care Lvl 2 Diagnoses COVID-19 U07.1 COPD exacerbation J44.1 COPD (chronic obstructive pulmonary disease) J44.9 COPD type: unspecified COPD Chronic respiratory failure with hypoxia J96.11 Acute respiratory failure with hypercapnia J96.02 Anxiety with depression F41.8 Sleep apnea, obstructive G47.33 (1) COPD (chronic obstructive pulmonary disease) COPD type: unspecified COPD Qualified Code(s): J44.9 - Chronic obstructive pulmonary disease, unspecified
[2021-12-18] MEDS: ACETAMINOPHEN 325 MG TAB PO PRN ×2 (10:09→22:35)
--- NOTE | 2021-12-18 14:50 | Electrocardiogram Report ---
Test Reason : Blood Pressure : / mmHG Vent. Rate : 077 BPM Atrial Rate : 077 BPM P-R Int : 156 ms QRS Dur : 082 ms QT Int : 398 ms P-R-T Axes : 079 071 070 degrees QTc Int : 450 ms Poor data quality, interpretation may be adversely affected Normal sinus rhythm Normal ECG When compared with ECG of 07-NOV-2021 15:54, No significant change was found Confirmed by Arthur Pack ([id number]) on 12/18/2021 2:50:27 PM Referred By: REFERRED SELF Confirmed By:Glenroy Pack
[2021-12-18] MEDS: ENOXAPARIN INJ 40 MG/0.4 ML SYR SQ SCH (20:46)
[2021-12-19] MEDS: IPRATROPIUM BROMIDE HFA INHALER INH SCH ×4 (07:12→19:02)
[2021-12-19] MEDS: ALBUTEROL HFA 8 GM INHALER INH SCH ×4 (07:12→19:02)
[2021-12-19] MEDS: dexAMETHasone 6 MG in SYRINGE 0 ML IV SCH (07:51)
[2021-12-19] MEDS: AZITHROMYCIN 250 MG TAB PO SCH (07:51)
[2021-12-19] MEDS: ESCITALOPRAM OXALATE 10 MG TAB PO SCH (07:51)
[2021-12-19] MEDS: UMECLIDINIUM/VILANTEROL 62.5/25MCG 7 PUFFS/INHALER INH SCH (07:52)
[2021-12-19] MEDS: SODIUM CHLORIDE 0.65% NA SOLN 45 ML (OCEAN) SCH ×2 (07:52→20:13)
[2021-12-19] MEDS: FLUTICASONE FUROATE 200MCG 14 PUFFS/INHALER INH SCH (07:53)
[2021-12-19] MEDS: guaiFENesin 600 MG TABCR PO SCH ×2 (07:54→20:14)
--- NOTE | 2021-12-19 16:35 | Hospitalist Progress Note ---
Date of Service December 19, 2021 Assessment & Plan (1) COVID-19: Plan: Unvaccinated but previously had COVID-19 twice Given unclear duration will defer on antiviral agents. Unclear how much this is contributing although nasal congestion and mildly reduced WBC fits with this diagnosis. No CXR or lung auscultation findings. Dexamethasone as below (2) COPD exacerbation: Plan: Will mainly treat as COPD exacerbation with dexamethasone 6mg IV daily and Combivent inhalers QID (will try to reduce aerosol procedures due to COVID-19) Azithromycin 500mg PO now then 250mg PO daily for 4 days Continue her usual [facility] Ellip or hospital formulary equivalent (3) COPD (chronic obstructive pulmonary disease): Plan: As above (4) Chronic respiratory failure with hypoxia: Plan: Wean O2 to aim sats 88-92%. She previously needed 3LPM O2 on exertion although saturations 92% at rest at last pulmonology visit. Passed 2 step on home O2 requirement (5) Acute respiratory failure with hypercapnia: Plan: Utilize BiPAP HS ABG unremakrable (6) Anxiety with depression: Plan: Unclear why Lexapro is PRN Very anxious in the ER. Recommend using her Lexapro daily and while in hospital will use lorazepam 0.5mg PO q8h PRN given severity of symptoms in the ER (7) Sleep apnea, obstructive: Plan: BiPAP HS Patient not tolerating CPAP at home which explains her apneic episodes Plan VTE Prophylaxis - Lovenox 40mg SQ daily Diet - regular Disposition - observation status to med/surg Admission and Anticipated Discharge Date Admission Date: December 17, 2021 Subjective Still with some subjective shortness of breath but reports improving. Diarrhea started today. On home O2 requirement, this has not increased despite decreasing WBC. Review of Systems Review of Systems: All systems reviewed & are unremarkable except as noted in Subjective Physical Exam Constitutional: well developed; + not well nourished and no acute distress Eyes: + anicteric sclerae; normal pupil size ENMT: external ear and nose normal, oropharynx normal Neck: trachea midline, no thyromegaly Respiratory: + respiratory distress, + uses accessory muscles and + prolonged expiratory phase Auscultation: no diminished lung sounds, no crackles, no rales, no rhonchi and no wheezes Cardiovascular: RRR, no murmur, no edema Gastrointestinal (Abdomen): normal bowel sounds, soft, nontender, no hepatosplenomegaly Musculoskeletal: no cyanosis or clubbing, extremities motor strength 5/5 Skin: no rashes, warm and dry Neurologic: moves all extremities and awake; not confused Psychiatric: A+Ox3, euthymic affect Results & Data Results & Data ([facility]) Vital Signs (Past 12 Hours) Vital Signs Temp Pulse Resp BP Pulse Ox O2 Del Method O2 Flow Rate 12/19/21 15:33 66 18 95 Nasal Cannula 2 12/19/21 15:23 36.6 C 76 18 158/74 H 92 Room Air 12/19/21 11:23 81 20 95 Nasal Cannula 2 12/19/21 08:58 Nasal Cannula 2 12/19/21 07:57 36.3 C L 69 18 165/80 H 96 Nasal Cannula 3 12/19/21 07:13 65 18 97 Nasal Cannula 2 PG Care Time/CCT Total # of Minutes Spent Total Time Spent with Patient: Total time spent is greater than 50% in coordination of care (as documented) at patient's floor/unit and/or counseling patient: Coding Level of Care Code 82389 Subseq Obs Care Lvl 2 Diagnoses COVID-19 U07.1 COPD exacerbation J44.1 COPD (chronic obstructive pulmonary disease) J44.9 COPD type: unspecified COPD Chronic respiratory failure with hypoxia J96.11 Acute respiratory failure with hypercapnia J96.02 Anxiety with depression F41.8 Sleep apnea, obstructive G47.33 (1) COPD (chronic obstructive pulmonary disease) COPD type: unspecified COPD Qualified Code(s): J44.9 - Chronic obstructive pulmonary disease, unspecified
[2021-12-19] MEDS: ENOXAPARIN INJ 40 MG/0.4 ML SYR SQ SCH (20:14)
[2021-12-20] MEDS ORDERED: dexAMETHasone 4 MG TAB PO SCH
[2021-12-20] MEDS: ALBUTEROL HFA 8 GM INHALER INH SCH ×3 (07:04→15:26)
[2021-12-20] MEDS: IPRATROPIUM BROMIDE HFA INHALER INH SCH ×3 (07:05→15:26)
[2021-12-20] MEDS: ESCITALOPRAM OXALATE 10 MG TAB PO SCH (09:00)
[2021-12-20] MEDS: dexAMETHasone 6 MG in SYRINGE 0 ML IV SCH (09:00)
[2021-12-20] MEDS: AZITHROMYCIN 250 MG TAB PO SCH (09:00)
[2021-12-20] MEDS: guaiFENesin 600 MG TABCR PO SCH (09:01)
[2021-12-20] MEDS: FLUTICASONE FUROATE 200MCG 14 PUFFS/INHALER INH SCH (09:01)
[2021-12-20] MEDS: SODIUM CHLORIDE 0.65% NA SOLN 45 ML (OCEAN) SCH (09:01)
[2021-12-20] MEDS: UMECLIDINIUM/VILANTEROL 62.5/25MCG 7 PUFFS/INHALER INH SCH (09:02)
[2021-12-20] MEDS ORDERED: LORazepam 0.5 MG TAB PO STA (11:22)
[2021-12-20] MEDS ORDERED: ATIVAN 1MG HOMEPACK PO ONE (11:45)
[2021-12-20] MEDS ORDERED: AZITHROMYCIN 250 MG TAB PO SCH (12:00)
--- NOTE | 2021-12-20 12:31 | Discharge Summary ---
Date of Service December 20, 2021 Admission HPI Per Admitting Provider Masha Mcneil is a 66 year old female with COPD and chronic hypoxic respiratory failure who presents to the ER with cough, nasal congestion, shortness of breath and concern for sleep apneic episodes. She reports nasal congestion for 1 week with intermittent frontal sinus pressure. Significant post nasal drip and dry nose with is causing her to cough more. She notes intermittent fever (highest 100.3 degrees Fahrenheit a couple of days last week with associated chills. She was given a Duoneb in the ER which she reports help her shortness of breath but is very temporary. She has been using her albuterol 3-4 times a day at home but only helps for around 5 minutes. She has not been on a full course of steroids since October. She wears 3LPM O2 on exertion chronically. Per recent pulmonology note on November 27 O2 sats were 92% on room air at baseline but drop to 82% on room air @ 2 minutes. Her oxygen was turned up to 3LPM O2 on exertion from 2LPM at that time. Although she thinks this was because she was getting increasingly short of breath even at this visit and even took some left over prednisone that day of the test. She has been on chronic oxygen steady for the last year. In the ER RAMY-COV-2 PCR positive. She is close to her baseline O2 requirement with O2 sats 88% on room air (noted to be 92% at most recent pulm office visit as above). VBG however concerning for respiratory acidosis with hypercapnia. She was therefore referred to medicine for admission and ongoing management of COVID-19. She reports having COVID-19 twice before - previously did not require inpatient treatment. She is not vaccinated. Principal Diagnosis COVID-19 pneumonia Discharge Exam Constitutional well developed; + not well nourished and no acute distress Eyes + anicteric sclerae; normal pupil size ENMT external ear and nose normal, oropharynx normal Respiratory normal respiratory effort; no respiratory distress, does not use accessory muscles and expiratory phase not prolonged Auscultation: no diminished lung sounds, no crackles, no rales, no rhonchi and no wheezes Cardiovascular RRR, no murmur, no edema Gastrointestinal (Abdomen) normal bowel sounds, soft, nontender, no hepatosplenomegaly Skin no rashes, warm and dry Neurologic moves all extremities and awake; not confused Psychiatric A+Ox3, euthymic affect Discharge Data Allergies Allergy/AdvReac Type Severity Reaction Status Date / Time aspirin AdvReac Intermediate GI SYMPTOMS Verified 12/17/21 13:35 Consultations 12/17/21 13:29 ED Decision to Admit Stat Hospital Course (1) COVID-19: Masha Berger is a 66 year old female observed at [facility] from December 17 to 2021 due to COVID-19 and acute on chronic hypoxia and hypercapnia. She was treated with dexamethasone 6 mg IV daily during her inpatient stay. Her oxygen saturations improved back to her baseline however her stay was prolonged due to increased anxiety and subjective shortness of breath. Hypercapnia resolved by the following morning after admission. She was prescribed dexamethasone 6 mg p.o. to finish a total treatment course of 10 days (6 further days on discharge). Due to her underlying COPD she was also treated with azithromycin. She required 1 further dose on discharge which was provided by the in-hospital pharmacy due to holiday weekend. Regarding her ongoing anxiety she was previously prescribed Lexapro as needed. Recommended taking this regularly. Recommend she follows up with her primary care physician for ongoing treatment of this. Temporarily during her COVID-19 course she was started on 0.5 mg lorazepam every 8 hours as needed but recommended against this medication longer term. (2) COPD exacerbation: (3) COPD (chronic obstructive pulmonary disease): (4) Chronic respiratory failure with hypoxia: (5) Acute respiratory failure with hypercapnia: (6) Anxiety with depression: (7) Sleep apnea, obstructive: Total Time Total Time Spent Total Time Spent (In Minutes): 35 Discharge Plan Discharge Items Patient Disposition: Home - Self-Care Reason For Visit: COVID-19, HYPERCAPNIA Discharge Diagnosis: COVID-19 Activity: Resume your previous activity Non-emergency contact: Primary Care Provider Call non-emergency contact if: you have any medication questions and your symptoms worsen Follow-up/Referrals: Roshan Crandall MD [Primary Care Provider] - Diet: Regular Addtl Attending Provider Instructions: You were observed at [facility] from December 17 to 2021 due to COVID-19 and worsening oxygen levels with elevated carbon dioxide. This was treated with dexamethasone (steroid). Recommend continuing on dexamethasone for a total course of 10 days (6 further days on discharge). Please continue on your Trelegy Ellipta and use nebulizers 4 times a day as needed for shortness of breath or wheezing. Due to your COPD you also treated with azithromycin. 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 Regarding your ongoing anxiety. Recommend taking her Lexapro regularly rather than as needed. We will start you on 10 mg daily - please follow-up with your primary care physician for ongoing treatment of this. Temporarily for quick relief recommend lorazepam 0.5 mg every 8 hours as needed. Due to the holiday weekend we have provided you with a home pack of 1 mg pills -please cut these in half. Use the lorazepam only as needed for severe anxiety. Regular use of this medication can lead to tolerance and addiction therefore only recommend this temporarily during your COVID-19 illness. Pending Studies at Discharge: No Stand-Alone Forms: [email or web address], Smoking Cessation Medications and DC Order Prescriptions: New dexamethasone 6 mg tablet 6 mg PO DAILY 6 Days Qty: 6 0RF lorazepam 0.5 mg tablet 0.5 mg PO Q8H PRN (Reason: anxiety) Qty: 7 0RF escitalopram oxalate [Lexapro] 10 mg tablet 10 mg PO DAILY Qty: 30 0RF Continued Trelegy Ellipta 200-62.5-25 mcg blister with device 1 inh inhalation DAILY Qty: 60 5RF albuterol sulfate [ProAir HFA] 90 mcg/actuation HFA aerosol inhaler 2 puff Inhalation Q4 PRN (Reason: Shortness Of Breath Or Wheezing) Qty: 8.5 3RF (DME) CPAP Machine Misc See Rx Instructions .MEDSUPPLY Qty: 1 0RF Rx Instructions: Auto-titration CPAP with pressure range between 5 cm H2O and 15 cm H2O with humidification. Lifetime need. ipratropium-albuterol 0.5 mg-3 mg(2.5 mg base)/3 mL solution for nebulization 3 ml INH QID PRN (Reason: Shortness Of Breath) Qty: 360 5RF (DME) CPAP Supplies Misc See Rx Instructions .MEDSUPPLY Qty: 1 0RF Rx Instructions: Refitting of the mask. G47.33 ibuprofen 200 mg Tablet 400 mg PO Q6H PRN (Reason: Pain) ipratropium bromide 21 mcg (0.03 %) spray,non-aerosol 2 spray INTRANASAL DAILY Discontinued escitalopram oxalate 10 mg tablet 15 mg PO DAILY PRN (Reason: Anxiety) Discharge Orders: Discharge Order (Routine); Ordered 12/20/21 Ordered By: Aureliano New Admission Data Admit Date/Time: 12/17/21 16:04 Attending Provider: Aureliano New Admit Provider: Aureliano New Primary Care Provider: Roshan Crandall Other Providers: Aureliano New Other Interventions: Discharge Summary Assessment (RN) Last Done: 12/20/21 13:07 Coding Level of Care Code D/C DAY MANAGEMENT >30 MINS Diagnoses COVID-19 U07.1 COPD exacerbation J44.1 COPD (chronic obstructive pulmonary disease) J44.9 COPD type: unspecified COPD Chronic respiratory failure with hypoxia J96.11 Acute respiratory failure with hypercapnia J96.02 Anxiety with depression F41.8 Sleep apnea, obstructive G47.33
[2021-12-20] MEDS ORDERED: LORazepam 0.5 MG TAB PO SCH ×3 (13:46)
== END 2021-12-20 16:04 | disposition home or self-care (01) ==
LOC: ED 11:52 → 3E 16:04 → SUATTDRO 16:04 → INTOOBSV 16:04 → 3E 18:31

== ENCOUNTER 2022-05-13 23:57 | Inpatient (IN) ==
[2022-05-14] MEDS ORDERED: SODIUM CHLORIDE 0.9% 1000ML 500 ML IV ONE (00:18)
[2022-05-14] MEDS ORDERED: ACETAMINOPHEN 1,000 MG/100 ML VIAL IV STA (00:18)
[2022-05-14] MEDS ORDERED: ALBUT/IPRATROP 3MG/0.5MG NEB 3 ML VIAL NEB ONE (00:18)
[2022-05-14] MEDS ORDERED: methylPREDNISolone 125 MG/2 ML VIAL IV STA (00:18)
--- NOTE | 2022-05-14 00:30 | Emergency Department Note ---
History of Present Illness General Chief complaint: Respiratory Problems Stated complaint: TROUBLE BREATHING Time Seen by Provider: 05/14/22 00:10 History of Present Illness This 66-year-old female chronically on 3 L of oxygen with COPD presents to ER complaining of fever, cough and flulike illness. She did receive her flu vaccine. No COVID-vaccine. Patient denies abdominal pain, vomiting, urinary symptoms. She is speaking in full sentences. Home Medications Medication Instructions Recorded Confirmed Type CPAP Machine #1 ea 12/06/19 05/11/21 Rx CPAP Supplies #1 ea 05/11/21 05/11/21 Rx ipratropium 0.5 mg-albuterol 3 mg 3 ml inhalation QID PRN Shortness 05/11/21 05/14/22 Rx (2.5 mg base)/3 mL nebulization Of Breath #360 mL soln fluticasone fur. 200 mcg-umeclid 1 inh inhalation DAILY #60 ea 11/24/21 05/14/22 Rx 62.5 mcg-vilant 25 mcg inhalat.powder (Trelegy Ellipta) ProAir HFA 90 mcg/actuation 2 puff inhalation Q4 PRN Shortness 11/27/21 05/14/22 Rx aerosol inhaler (albuterol sulfate) Of Breath Or Wheezing #8.5 grams ibuprofen 200 mg tablet 400 mg PO Q6H PRN Pain 12/17/21 05/14/22 History ipratropium bromide 21 mcg (0.03 2 spray intranasal DAILY 12/17/21 05/14/22 History %) nasal spray escitalopram oxalate 10 mg tablet 10 mg PO DAILY #30 tabs 12/20/21 05/14/22 Rx (Lexapro) lorazepam 0.5 mg tablet 0.5 mg PO Q8H PRN anxiety #7 tabs 12/20/21 05/14/22 Rx Allergies Allergy/AdvReac Type Severity Reaction Status Date / Time aspirin AdvReac Intermediate GI SYMPTOMS Verified 05/14/22 00:33 Past Med/Surg History Medical History Anxiety with depression Asthma Chronic obstructive pulmonary disease with hypoxia 3L NC PRN Pulm - Min [place] COPD exacerbation COVID Family history of colon cancer Sleep apnea, obstructive Yeast infection Surgical History H/O partial thyroidectomy 1990s d/t hemorrhaging?--unknown cause, no meds History of broken collarbone sx to repair History of carpal tunnel surgery of right wrist History of partial hysterectomy History of tooth extraction all teeth Family History Mother , from ovarian cancer Cancer Ovarian Sister Cancer Ovarian Father COPD (chronic obstructive pulmonary disease) Other No family history of adverse response to anesthesia Social History Smoking Status: Former smoker Tobacco Type: Cigarettes Age Started Using Tobacco: 17; Age Quit Using Tobacco: 1; packs per day: 1; Cigarettes Per Day: 20; Second Hand Exposure: No; Hx Alcohol Use: No Hx Substance Use: No Preferred Language: Syriac 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 Ability: Effective Medical Accounts Receivable Specialist 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 Beliefs That Will Affect Care: None marital status: Current Living Situation: Family Current Living Situation Comment: Lives with daughter Virgen Feels Safe at Home: Yes Assistive Devices: Oxygen - Continuous Review of Systems A total of 10 systems reviewed and were otherwise negative Physical Exam Vital Signs Vital Signs - 24 hr 05/14/22 00:00 05/14/22 00:50 05/14/22 00:59 Temperature 37.6 C H Temperature Source Temporal Artery Scan Pulse Rate 111 H Pulse Rate [Apical] 101 H Respiratory Rate 22 22 Respiratory Effort / Characteristics Non-Labored Spontaneous Spontaneous Respiratory Depth Normal Respiratory Pattern Blood Pressure 171/85 H Blood Pressure Mean 113 Blood Pressure Position Sitting Pulse Oximetry 91 95 94 Oxygen Delivery Method Nasal Cannula Nasal Cannula Nasal Cannula Oxygen Flow Rate 3 4 3 Sepsis Recent Fever Within 48 Hours Yes Sepsis New/Unexplained Change in Mental Status N/A Sepsis Action Taken by Nursing No Action Required 05/14/22 00:59 05/14/22 01:00 Temperature Temperature Source Pulse Rate Pulse Rate [Apical] Respiratory Rate Respiratory Effort / Characteristics Non-Labored Spontaneous Short of Breath Respiratory Depth Deep Respiratory Pattern Tachypnea Blood Pressure Blood Pressure Mean Blood Pressure Position Pulse Oximetry 96 Oxygen Delivery Method Oxygen Flow Rate Sepsis Recent Fever Within 48 Hours Sepsis New/Unexplained Change in Mental Status Sepsis Action Taken by Nursing VITALS: Vitals are noted on the nurse's note and reviewed by myself. Vital signs low-grade fever. GENERAL: Pleasant female coughing with audible wheeze, in no acute distress, nondiaphoretic, well-developed well-nourished. SKIN: The skin was without rashes, erythema, edema, or bruising. There is no tenting of the skin. Capillary reflex less than 2 seconds. HEAD: Normocephalic atraumatic. EARS: External auditory canals clear, EYES: Pupils equal round and reactive to light and accommodation. Conjunctivae without injection, sclerae without icterus. Extraocular movements intact. NOSE: Patent, turbinates without inflammation or discharge. MOUTH: Mucous membranes moist. Pharynx without erythema or exudate. Uvula midline. Airway patent. Tongue does not deviate. NECK: Supple without nuchal rigidity. No lymphadenopathy. No thyromegaly. Cervical spine is nontender. No JVD. HEART: Regular rate and rhythm LUNGS: Diffuse inspiratory and end expiratory wheezes, No retractions or accessory muscle use. ABDOMEN: Positive bowel sounds x 4. Normal tympanic percussion. Soft, nontender, without masses or organomegaly. Young sign negative. No guarding or rebound tenderness. No CVA tenderness MUSCULOSKELETAL: No muscle atrophy, erythema, or edema noted. NEURO: Patient was alert and oriented to person place and time. Normal sensation to light and sharp touch. No focal neurological deficits. Course Administered Medications Discontinued Medications Albuterol (Albut/Ipratrop 3mg/0.5mg Neb 3 Ml Vial) 12 ml NEB ONE ONE; Protocol Stop: 05/14/22 00:19 Last Admin: 05/14/22 00:46 Dose: 12 ml Documented By: MARY KATE Acetaminophen (Ofirmev) 1,000 mg in 100 mls @ 400 mls/hr IV NOW STA Stop: 05/14/22 00:32 Last Infusion: 05/14/22 01:28 Dose: 0 mls/hr Documented By: MARY KATE Admin: 05/14/22 00:45 Dose: 400 mls/hr Documented By: MARY KATE Sodium Chloride (Nss 1000ml) 500 mls @ 999 mls/hr IV .Q31M ONE Stop: 05/14/22 00:48 Last Infusion: 05/14/22 01:28 Dose: 0 mls/hr Documented By: MARY KATE Admin: 05/14/22 00:45 Dose: 999 mls/hr Documented By: MARY KATE Lorazepam (Lorazepam 2 Mg/1 Ml Vial) 1 mg IV NOW STA Stop: 05/14/22 01:55 Last Admin: 05/14/22 02:02 Dose: 1 mg Documented By: MARY KATE Methylprednisolone (Methylprednisolone 125 Mg/2 Ml Vial) 125 mg IV NOW STA Stop: 05/14/22 00:19 Last Admin: 05/14/22 00:45 Dose: 125 mg Documented By: MARY KATE Oseltamivir Phosphate (Oseltamivir Phosphate 75 Mg Cap) 75 mg PO NOW STA; Protocol Stop: 05/14/22 01:51 Last Admin: 05/14/22 02:02 Dose: 75 mg Documented By: MARY KATE Medical Decision Making Medical Records Attestation: I reviewed the patient's medical records. Home Medications Current Medication List: was personally reviewed by me Laboratory Data Attestation: I reviewed the patient's lab results. 05/14/22 00:52 05/14/22 00:52 Lab Results 05/14/22 05/14/22 05/14/22 Range/Units 00:52 00:52 00:52 WBC 13.95 H (4.8-10.8) K/ul RBC 4.09 L (4.20-5.40) M/uL Hgb 12.2 (12.0-16.0) g/dl Hct 35.7 L (37.0-47.0) % MCV 87.3 (80.0-100.0) fL MCH 29.8 (25.0-34.0) pg MCHC 34.2 (32.0-36.0) g/dL RDW Std Deviation 38.4 (36.4-46.3) fL RDW Coeff of Audrey 11.9 (11.5-14.5) % Plt Count 274 (130-400) K/uL MPV 9.4 (9.4-12.4) fL Immature Gran % (Auto) 0.4 % Neut % (Auto) 91.1 % Lymph % (Auto) 4.0 % [place] % (Auto) 3.7 % Eos % (Auto) 0.4 % Baso % (Auto) 0.4 % Neut # (Auto) 12.71 H (1.40-6.50) K/uL Lymph # (Auto) 0.56 L (1.2-3.4) K/uL [place] # (Auto) 0.51 (0.11-0.59) K/uL Eos # (Auto) 0.05 (0-0.50) K/uL Baso # (Auto) 0.06 (0-0.2) K/uL Immature Gran # (Auto) 0.06 (0.01-0.20) K/uL Hypersegmented Neuts 1+ Sodium 138 (136-145) mmol/L Potassium 3.9 (3.5-5.1) mmol/L Chloride 103 (98-107) mmol/L Carbon Dioxide 27 (21-32) mmol/L Anion Gap 8 (3-11) BUN 21 (6-23) mg/dl Creatinine 0.86 (0.6-1.2) mg/dl Est Cr Clr Drug Dosing Not Reportable Est GFR ( Amer) 81.0 ml/min Est GFR (Non-Af Amer) 69.9 ml/min BUN/Creatinine Ratio 24.4 H (10-20) Glucose 147 H (70-99(Fasting)) mg/dl Lactate 0.8 (0.4-2.0) mmol/L Calcium 8.8 (8.5-10.1) mg/dl Magnesium 1.7 (1.7-2.4) mg/dl Total Bilirubin 0.4 (0.2-1.0) mg/dl Direct Bilirubin 0.1 (0-0.2) mg/dl AST 13 (13-39) U/L ALT 9 (7-52) U/L Alkaline Phosphatase 90 (34-104) U/L Troponin I High Sens 6.9 (0-14) pg/ml Total Protein 6.4 (6.0-8.3) gm/dl Albumin 3.9 (3.4-5.0) gm/dl Procalcitonin (0-0.5) ng/ml SARS-CoV-2 (PCR) (Negative) Influenza Type A (PCR) (Neg) Influenza Type B (PCR) (Neg) RSV (RT-PCR) (Neg) 05/14/22 05/14/22 Range/Units 00:52 00:52 WBC (4.8-10.8) K/ul RBC (4.20-5.40) M/uL Hgb (12.0-16.0) g/dl Hct (37.0-47.0) % MCV (80.0-100.0) fL MCH (25.0-34.0) pg MCHC (32.0-36.0) g/dL RDW Std Deviation (36.4-46.3) fL RDW Coeff of Audrey (11.5-14.5) % Plt Count (130-400) K/uL MPV (9.4-12.4) fL Immature Gran % (Auto) % Neut % (Auto) % Lymph % (Auto) % [place] % (Auto) % Eos % (Auto) % Baso % (Auto) % Neut # (Auto) (1.40-6.50) K/uL Lymph # (Auto) (1.2-3.4) K/uL [place] # (Auto) (0.11-0.59) K/uL Eos # (Auto) (0-0.50) K/uL Baso # (Auto) (0-0.2) K/uL Immature Gran # (Auto) (0.01-0.20) K/uL Hypersegmented Neuts Sodium (136-145) mmol/L Potassium (3.5-5.1) mmol/L Chloride (98-107) mmol/L Carbon Dioxide (21-32) mmol/L Anion Gap (3-11) BUN (6-23) mg/dl Creatinine (0.6-1.2) mg/dl Est Cr Clr Drug Dosing Est GFR ( Amer) ml/min Est GFR (Non-Af Amer) ml/min BUN/Creatinine Ratio (10-20) Glucose (70-99(Fasting)) mg/dl Lactate (0.4-2.0) mmol/L Calcium (8.5-10.1) mg/dl Magnesium (1.7-2.4) mg/dl Total Bilirubin (0.2-1.0) mg/dl Direct Bilirubin (0-0.2) mg/dl AST (13-39) U/L ALT (7-52) U/L Alkaline Phosphatase (34-104) U/L Troponin I High Sens (0-14) pg/ml Total Protein (6.0-8.3) gm/dl Albumin (3.4-5.0) gm/dl Procalcitonin 0.17 (0-0.5) ng/ml SARS-CoV-2 (PCR) NEGATIVE (Negative) Influenza Type A (PCR) Positive A* (Neg) Influenza Type B (PCR) Negative (Neg) RSV (RT-PCR) Negative (Neg) Imaging Data Attestation: I personally reviewed and interpreted this imaging study as follows: MDM Narrative Prior records/ancillary studies reviewed. Triage Nursing notes reviewed. Additional history obtained from nursing. The patient's history was concerning for breathing issues with fever. Differential diagnosis: Etiologies such as viral syndrome, otitis, pharyngitis, pneumonia, influenza, meningitis, urinary tract infection, sepsis, bacteremia, as well as others were entertained. Physical examination: As above ER treatment provided: An order was placed for continuous cardiac monitoring. The monitor shows a rate of 60-1 50 with a sinus rhythm per my interpretation. Hour-long nebulizer, IV fluids, Solu-Medrol, tamiflu On reassessment the patient felt better. Diagnostics interpreted by me: Labs and diagnostics were independently interpreted by myself. ECG: Ordered for dyspnea EKG: Normal sinus, poor baseline, no acute ST-T wave changes. Rate normal sinus interpreted by myself I think arrhythmia is unlikely. EKG shows normal sinus rhythm with no interval abnormalities such as QT prolongation or WPW. There are no findings to suggest Brugada syndrome. Cardiac monitoring in the emergency department reveals no tachycardic or bradycardic dysrhythmia. Hypertrophic cardiomyopathy was consid ered but there are no clear historical elements pointing toward this. EKG is not suggestive. The QRS voltage is not extremely large and there are no suggestive Q waves. The labs revealed positive influenza A, leukocytosis, negative lactic, blood cultures pending Hyperglycemia without DKA Imaging studies: Chest x-ray with possible left lower lobe pneumonia most acute viral in etiology since a positive flu test is present per my interpretation that was independent Consultation: A consultation was placed with hospitalist. The case was discussed and diagnostics were reviewed. The patient was evaluated in the ER for further treatment. This appears to be consistent with COPD exacerbation with influenza. Patient still quite short of breath. Her sats were low. She was reassessed multiple times. She was given a nebulizer steroids and Tamiflu. Medicine is consulted. She will be evaluated for admission.. By the evaluation outlined above emergent etiologies such as otitis, pharyngitis, pneumonia, meningitis, urinary tract infection, sepsis, bacteremia, as well as others were deemed relatively unlikely. The pt informed about the findings as listed above. All questions were answered and pleased with the treatment. The chart was completed utilizing [employer] Speech voice recognition software. Grammatical errors, random word insertions, pronoun errors, and incomplete sentences are an occassional consequence of this system due to software limitations, ambient noise, and hardware issues. Any formal questions or concerns about the content, text, or information contained within the body of this dictation should be directly addressed to the physician first assistant manager for clarification. Impression & Plan COPD exacerbation, Influenza A Discharge Plan Visit Data Chief Complaint: Respiratory Problems Stated Complaint: TROUBLE BREATHING ED Provider: Tre Wiggins. ED Midlevel Provider: Anu Michelle Discharge Problem: COPD exacerbation, Influenza A Patient Disposition: Admitted As Inpatient Condition: Fair Forms Stand Alone Forms: [facility] [employer] Prescriptions Prescriptions: No Action Trelegy Ellipta 200-62.5-25 mcg blister with device 1 inh inhalation DAILY Qty: 60 5RF albuterol sulfate [ProAir HFA] 90 mcg/actuation HFA aerosol inhaler 2 puff Inhalation Q4 PRN (Reason: Shortness Of Breath Or Wheezing) Qty: 8.5 3RF (DME) CPAP Machine Misc See Rx Instructions .MEDSUPPLY Qty: 1 0RF Rx Instructions: Auto-titration CPAP with pressure range between 5 cm H2O and 15 cm H2O with humidification. Lifetime need. ipratropium-albuterol 0.5 mg-3 mg(2.5 mg base)/3 mL solution for nebulization 3 ml INH QID PRN (Reason: Shortness Of Breath) Qty: 360 5RF (DME) CPAP Supplies Misc See Rx Instructions .MEDSUPPLY Qty: 1 0RF Rx Instructions: Refitting of the mask. G47.33 ibuprofen 200 mg Tablet 400 mg PO Q6H PRN (Reason: Pain) ipratropium bromide 21 mcg (0.03 %) spray,non-aerosol 2 spray INTRANASAL DAILY lorazepam 0.5 mg tablet 0.5 mg PO Q8H PRN (Reason: anxiety) Qty: 7 0RF Rx Instructions: PER PT "OUT RIGHT NOW, NEED A REFILL". escitalopram oxalate [Lexapro] 10 mg tablet 10 mg PO DAILY Qty: 30 0RF Referrals Referrals: Roshan Crandall MD [Primary Care Provider] -
[2022-05-14] MEDS ORDERED: Patient's HEIGHT &/or WEIGHT Needed SCH (01:00)
[2022-05-14 01:10] LABS: Hematocrit (blood only) 35.7 % (37.0-47.0); Hemoglobin 12.2 g/dl (12.0-16.0); Mean Corpuscular Hemoglobin 29.8 pg (25.0-34.0); Mean Corpuscular Hgb Conc 34.2 g/dL (32.0-36.0); Mean Corpuscular Volume 87.3 fL (80.0-100.0); Mean Platelet Volume 9.4 fL (9.4-12.4); Platelet Count 274 K/uL (130-400); RDW Coefficient of Variation 11.9 % (11.5-14.5); RDW Standard Deviation 38.4 fL (36.4-46.3); Red Blood Count 4.09 M/uL (4.20-5.40); White Blood Count 13.95 K/ul (4.8-10.8)
[2022-05-14 01:29] LABS: Basophils # (auto) 0.06 K/uL (0-0.2); Basophils % (auto) 0.4 %; Eosinophils # (auto) 0.05 K/uL (0-0.50); Eosinophils % (auto) 0.4 %; Hypersegmented Neutrophils 1+; Immature Granulocytes # (auto) 0.06 K/uL (0.01-0.20); Immature Granulocytes % (auto) 0.4 %; Lymphocytes # (auto) 0.56 K/uL (1.2-3.4); Monocytes # (auto) 0.51 K/uL (0.11-0.59); Monocytes % (auto) 3.7 %; Neutrophils # (auto) 12.71 K/uL (1.40-6.50); Neutrophils % (auto) 91.1 %
[2022-05-14 01:34] LABS: Albumin Level 3.9 gm/dl (3.4-5.0); Anion Gap 8 (3-11); Bilirubin Direct 0.1 mg/dl (0-0.2); Bilirubin,Total 0.4 mg/dl (0.2-1.0); Calcium 8.8 mg/dl (8.5-10.1); Carbon Dioxide 27 mmol/L (21-32); Chloride 103 mmol/L (98-107); Magnesium 1.7 mg/dl (1.7-2.4); Potassium 3.9 mmol/L (3.5-5.1); Sodium 138 mmol/L (136-145)
[2022-05-14 01:36] LABS: Troponin I High Sensitivity 6.9 pg/ml (0-14)
[2022-05-14 01:40] LABS: Alanine Aminotransferase 9 U/L (7-52); Alkaline Phosphatase 90 U/L (34-104); Aspartate Aminotransferase 13 U/L (13-39); BUN Creatinine Ratio 24.4 (10-20); Blood Urea Nitrogen 21 mg/dl (6-23); Est GFR (Non-African American) 69.9 ml/min; Glucose 147 mg/dl (70-99(Fasting)); Total Protein 6.4 gm/dl (6.0-8.3)
[2022-05-14 01:47] LABS: Influenza B virus by PCR Negative (Neg); RSV by PCR Negative (Neg); SARS CoV2 RNA(COVID-19) Ceph NEGATIVE (Negative)
[2022-05-14 01:50] LABS: Influenza A virus by PCR Positive (Neg)
[2022-05-14] MEDS ORDERED: OSELTAMIVIR PHOSPHATE 75 MG CAP PO STA (01:50)
[2022-05-14] MEDS ORDERED: LORazepam 2 MG/1 ML VIAL IV STA (01:54)
--- NOTE | 2022-05-14 02:54 | History & Physical Report ---
Date of Service May 14, 2022 Assessment & Plan (1) Influenza A: Plan: 66yo female with one day of fever, worsening cough productive for yellow sputum and hypoxia. Patient found to be POSITIVE for influenza A. She is vaccinated. Presently saturating well on 3L NC - 95% -Admit to medical -Maintain isolation precautions -Maintain supplemental O2, goal saturation 88-92% -Tamiflu 75mg po BID -Albuterol PRN -Tylenol and Ibuprofe PRN pain or fever (2) COPD (chronic obstructive pulmonary disease): Plan: Suspect acute exacerbation of COPD in setting of Influenza infection. Diminished breath sounds bilaterally. Patient reports significant dyspnea with minimal exertion, cough with sputum production -DuoNebs q 4 hours -Albuterol q 2 hours PRN -Solumedrol 40mg IV TID -Continue Trelegy Ellipta (3) Anxiety with depression: Plan: Chronic. Patient with increased anxiety in ER, improved with Ativan -Continue Lexapro -Ativan PRN at home dose F/E/N - LR at 80mL/hr x 1L, electroltyes WNL, regular diet as tolerated Ppx - Lovenox Code - Full Dispo - Admit to medical History of Present Illness Chief Complaint: Shortness of breath Primary Care Provider: Roshan Crandall MD 66yo female with COPD on home O2 3L presenting with fever, chills, cough, hypoxia. Dyspnea with minimal exertion. +Sick contacts, grandchildren with coughs and fevers. She reports taking nebulizer treatments at home with no improvement in symptoms. Saturations at home reported to be in the low 80's with ambulation. Patient tested POSITIVE for influenza A Reports some nausea as well as diarrhea, decreased oral intake In the ER she was ill in appearance, tachypneic and tachycardic Allergies Allergy/AdvReac Type Severity Reaction Status Date / Time aspirin AdvReac Intermediate GI SYMPTOMS Verified 05/14/22 00:33 Home Medications Medication Instructions Recorded Confirmed Type CPAP Machine #1 ea 12/06/19 05/11/21 Rx CPAP Supplies #1 ea 05/11/21 05/11/21 Rx ipratropium 0.5 mg-albuterol 3 mg 3 ml inhalation QID PRN Shortness 05/11/21 05/14/22 Rx (2.5 mg base)/3 mL nebulization Of Breath #360 mL soln fluticasone fur. 200 mcg-umeclid 1 inh inhalation DAILY #60 ea 11/24/21 05/14/22 Rx 62.5 mcg-vilant 25 mcg inhalat.powder (Trelegy Ellipta) ProAir HFA 90 mcg/actuation 2 puff inhalation Q4 PRN Shortness 11/27/21 05/14/22 Rx aerosol inhaler (albuterol sulfate) Of Breath Or Wheezing #8.5 grams ibuprofen 200 mg tablet 400 mg PO Q6H PRN Pain 12/17/21 05/14/22 History ipratropium bromide 21 mcg (0.03 2 spray intranasal DAILY 12/17/21 05/14/22 History %) nasal spray escitalopram oxalate 10 mg tablet 10 mg PO DAILY #30 tabs 12/20/21 05/14/22 Rx (Lexapro) lorazepam 0.5 mg tablet 0.5 mg PO Q8H PRN anxiety #7 tabs 12/20/21 05/14/22 Rx Past Med/Surg History Medical History Anxiety with depression Asthma Chronic obstructive pulmonary disease with hypoxia 3L NC PRN Pulm - Min [place] COPD exacerbation COVID Family history of colon cancer Sleep apnea, obstructive Yeast infection Surgical History H/O partial thyroidectomy 1990s d/t hemorrhaging?--unknown cause, no meds History of broken collarbone sx to repair History of carpal tunnel surgery of right wrist History of partial hysterectomy History of tooth extraction all teeth Family History Mother , from ovarian cancer Cancer Ovarian Sister Cancer Ovarian Father COPD (chronic obstructive pulmonary disease) Other No family history of adverse response to anesthesia Social History Smoking Status: Former smoker Tobacco Type: Cigarettes Age Started Using Tobacco: 17; Age Quit Using Tobacco: 1; packs per day: 1; Cigarettes Per Day: 20; Second Hand Exposure: No; Hx Alcohol Use: No Hx Substance Use: No Preferred Language: Faroese 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 Ability: Effective Chinchilla Machine Operator 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 Beliefs That Will Affect Care: None marital status: Current Living Situation: Family Current Living Situation Comment: Lives with daughter Virgen Feels Safe at Home: Yes Assistive Devices: Oxygen - Continuous Review of Systems Review of Systems: All systems reviewed & are unremarkable except as noted in HPI & below Physical Exam Physical Exam: General: patient ill in appearance, NAD, answering questions appropriately Skin: warm, dry, intact, no rashes or lesions HEENT: NC/AT, PERRL, EOMI, anicteric sclera, conjunctiva without injection, external ear normal to inspection and nontender, nares patent, dry mucus membranes, dentition intact, no oropharyngeal lesions, neck supple, trachea midline, no LAD, no thyromegaly, no JVD Heart: +S1/S2, regular, tachycardic, no m/r/g Lungs: diminshed air flow bilaterally with faint end-expiratory wheezing throughout Abd: +BS, soft, NT/ND, no masses/organomegaly/ascites Ext: warm, 2+ pulses in UE/LE bilaterally, no clubbing/cyanosis or edema Neuro: nonfocal, patient AA&O x 4, speech intact, no facial droop, moving all extremities on command with equal strength 5/5 Results & Data Results & Data ([facility]) Vital Signs (Past 12 Hours) Vital Signs Temp Pulse Pulse Resp BP Pulse Ox O2 Del Method 05/14/22 00:59 96 05/14/22 00:59 94 Nasal Cannula 05/14/22 00:50 101 H 22 95 Nasal Cannula 05/14/22 00:00 37.6 C H 111 H 22 171/85 H 91 Nasal Cannula O2 Flow Rate 05/14/22 00:59 05/14/22 00:59 3 05/14/22 00:50 4 05/14/22 00:00 3 Laboratory Results Laboratory Results WBC 13.95 K/ul (4.8-10.8) H 05/14/22 00:52 RBC 4.09 M/uL (4.20-5.40) L 05/14/22 00:52 Hgb 12.2 g/dl (12.0-16.0) 05/14/22 00:52 Hct 35.7 % (37.0-47.0) L 05/14/22 00:52 MCV 87.3 fL (80.0-100.0) 05/14/22 00:52 MCH 29.8 pg (25.0-34.0) 05/14/22 00:52 MCHC 34.2 g/dL (32.0-36.0) 05/14/22 00:52 RDW Std Deviation 38.4 fL (36.4-46.3) 05/14/22 00:52 RDW Coeff of Audrey 11.9 % (11.5-14.5) 05/14/22 00:52 Plt Count 274 K/uL (130-400) 05/14/22 00:52 MPV 9.4 fL (9.4-12.4) 05/14/22 00:52 Immature Gran % (Auto) 0.4 % 05/14/22 00:52 Neut % (Auto) 91.1 % 05/14/22 00:52 Lymph % (Auto) 4.0 % 05/14/22 00:52 [place] % (Auto) 3.7 % 05/14/22 00:52 Eos % (Auto) 0.4 % 05/14/22 00:52 Baso % (Auto) 0.4 % 05/14/22 00:52 Neut # (Auto) 12.71 K/uL (1.40-6.50) H 05/14/22 00:52 Lymph # (Auto) 0.56 K/uL (1.2-3.4) L 05/14/22 00:52 [place] # (Auto) 0.51 K/uL (0.11-0.59) 05/14/22 00:52 Eos # (Auto) 0.05 K/uL (0-0.50) 05/14/22 00:52 Baso # (Auto) 0.06 K/uL (0-0.2) 05/14/22 00:52 Immature Gran # (Auto) 0.06 K/uL (0.01-0.20) 05/14/22 00:52 Hypersegmented Neuts 1+ 05/14/22 00:52 Sodium 138 mmol/L (136-145) 05/14/22 00:52 Potassium 3.9 mmol/L (3.5-5.1) 05/14/22 00:52 Chloride 103 mmol/L (98-107) 05/14/22 00:52 Carbon Dioxide 27 mmol/L (21-32) 05/14/22 00:52 Anion Gap 8 (3-11) 05/14/22 00:52 BUN 21 mg/dl (6-23) 05/14/22 00:52 Creatinine 0.86 mg/dl (0.6-1.2) 05/14/22 00:52 Est Cr Clr Drug Dosing Not Reportable 05/14/22 00:52 Est GFR ( Amer) 81.0 ml/min 05/14/22 00:52 Est GFR (Non-Af Amer) 69.9 ml/min 05/14/22 00:52 BUN/Creatinine Ratio 24.4 (10-20) H 05/14/22 00:52 Glucose 147 mg/dl (70-99(Fasting)) H 05/14/22 00:52 Lactate 0.8 mmol/L (0.4-2.0) 05/14/22 00:52 Calcium 8.8 mg/dl (8.5-10.1) 05/14/22 00:52 Magnesium 1.7 mg/dl (1.7-2.4) 05/14/22 00:52 Total Bilirubin 0.4 mg/dl (0.2-1.0) 05/14/22 00:52 Direct Bilirubin 0.1 mg/dl (0-0.2) 05/14/22 00:52 AST 13 U/L (13-39) 05/14/22 00:52 ALT 9 U/L (7-52) 05/14/22 00:52 Alkaline Phosphatase 90 U/L (34-104) 05/14/22 00:52 Troponin I High Sens 6.9 pg/ml (0-14) 05/14/22 00:52 Total Protein 6.4 gm/dl (6.0-8.3) 05/14/22 00:52 Albumin 3.9 gm/dl (3.4-5.0) 05/14/22 00:52 Procalcitonin 0.17 ng/ml (0-0.5) 05/14/22 00:52 SARS-CoV-2 (PCR) NEGATIVE (Negative) 05/14/22 00:52 Influenza Type A (PCR) Positive (Neg) A* 05/14/22 00:52 Influenza Type B (PCR) Negative (Neg) 05/14/22 00:52 RSV (RT-PCR) Negative (Neg) 05/14/22 00:52 PG Care Time/CCT Total # of Minutes Spent Total Time Spent with Patient: Total time spent is greater than 50% in coordination of care (as documented) at patient's floor/unit and/or counseling patient: Coding Level of Care Code 92584 INT INP/OBS CARE 2/55MIN Diagnoses Influenza A J10.1 COPD (chronic obstructive pulmonary disease) J44.9 COPD type: unspecified COPD Anxiety with depression F41.8 (1) COPD (chronic obstructive pulmonary disease) COPD type: unspecified COPD Qualified Code(s): J44.9 - Chronic obstructive pulmonary disease, unspecified
[2022-05-14] MEDS ORDERED: IBUPROFEN 200 MG TAB PO PRN (04:27)
[2022-05-14] MEDS ORDERED: LACTATED RINGER'S 1,000 ML IV SCH (04:27)
[2022-05-14] MEDS ORDERED: ONDANSETRON INJ 2 MG/ML 2 ML VIAL IV PRN (04:27)
[2022-05-14] MEDS ORDERED: ALBUTEROL 0.083% NEBU SOLN 3 ML VIAL NEB PRN (04:27)
[2022-05-14] MEDS: ALBUT/IPRATROP 3MG/0.5MG NEB 3 ML VIAL NEB SCH ×6 (05:16→22:43)
--- NOTE | 2022-05-14 06:42 | XRay Report ---
XR chest 1V portable CLINICAL HISTORY: Sepsis TECHNIQUE: Single frontal radiograph of the chest was obtained. Comparison: Comparison is made to CT chest 04/26/2022 and chest radiograph 03/17/2022 FINDINGS: No lines and tubes are seen. The cardiomediastinal silhouette is normal. Reticular interstitial opaci ties are seen. Biapical scarring is seen. No evidence of pleural effusion or pneumothorax. IMPRESSION: Emphysema is noted. No acute abnormalities and in particular no evidence of pneumonia. ACT 112: Negative or not required by law. Electronically signed by: Darrell Sanchez M.D. 05/14/2022 6:41 AM
[2022-05-14] MEDS ORDERED: NON-FORMULARY MEDICATION (Fluticasone-Umeclidin-Vilanter [Trelegy Ellipta] 200-62.5-25 mcg INH SCH (09:00)
[2022-05-14] MEDS: UMECLIDINIUM/VILANTEROL 62.5/25MCG 7 PUFFS/INHALER INH SCH (09:34)
[2022-05-14] MEDS: OSELTAMIVIR PHOSPHATE 75 MG CAP PO SCH ×2 (09:35→20:12)
[2022-05-14] MEDS: FLUTICASONE FUROATE 200MCG 14 PUFFS/INHALER INH SCH (09:35)
[2022-05-14] MEDS: ESCITALOPRAM OXALATE 10 MG TAB PO SCH (09:35)
[2022-05-14] MEDS: ENOXAPARIN INJ 40 MG/0.4 ML SYR SQ SCH (09:38)
[2022-05-14] MEDS: methylPREDNISolone 40 MG in SYRINGE 0 ML IV SCH ×3 (09:40→20:12)
--- NOTE | 2022-05-14 15:27 | Electrocardiogram Report ---
Test Reason : Blood Pressure : / mmHG Vent. Rate : 105 BPM Atrial Rate : 105 BPM P-R Int : 138 ms QRS Dur : 070 ms QT Int : 338 ms P-R-T Axes : 080 080 080 degrees QTc Int : 446 ms Poor data quality, interpretation may be adversely affected Sinus tachycardia Nonspecific ST abnormality Abnormal ECG When compared with ECG of 16-MAR-2022 23:59, Nonspecific T wave abnormality now evident in Lateral leads Confirmed by Arthur Pack ([id number]) on 05/14/2022 3:27:13 PM Referred By: REFERRED SELF Confirmed By:Glenroy Pack
[2022-05-14] MEDS: ACETAMINOPHEN 325 MG TAB PO PRN ×2 (16:07→20:06)
[2022-05-14] MEDS ORDERED: PNEUMOCOCCAL Polysaccharide Vaccine 25mcg/0.5mL vial/Syr IM ONE (16:45)
[2022-05-14 17:19] LABS: Appearance Urine Clear (Clear); Bacteria Urine Automated Negative (Negative); Bilirubin Urine Negative (Negative); Blood Urine Trace (Negative); Cast Urine Automated 0 /lpf (0-5); Color Urine Yellow; Epithelial Cell Urine Auto 20-30 /lpf (0-5); Glucose Urine UA Negative (Negative); Ketones Urine Negative (Negative); Leukocyte Esterase Urine Negative (Negative); Nitrite Urine Negative (Negative); Protein Urine Negative (Negative); RBC Urine Automated 0-4 /hpf (0-4); Specific Gravity Urine 1.008 (1.000-1.030); Urobilinogen Urine Negative (Negative); pH Urine 5.5 (4.5-7.5)
[2022-05-14] MEDS: PANTOprazole 40 MG TAB PO PRN (18:53)
[2022-05-14] MEDS: ALBUT/IPRATROP 3MG/0.5MG NEB 3 ML VIAL NEB PRN (22:30)
[2022-05-14] MEDS: LORazepam 0.5 MG TAB PO PRN (22:43)
[2022-05-15] MEDS: ALBUT/IPRATROP 3MG/0.5MG NEB 3 ML VIAL NEB PRN ×2 (01:22→19:39)
[2022-05-15] MEDS: ACETAMINOPHEN 325 MG TAB PO PRN (02:18)
[2022-05-15] MEDS ORDERED: HYDROcodone/HOMATROPINE SYRUP 5MG/1.5MG 5ML UDP PO STA (02:38)
[2022-05-15] MEDS ORDERED: COUGH DROP (SUGAR FREE) LOZ 24 LOZ/1 BOX BUCCAL STA ×2 (02:51→06:36)
[2022-05-15] MEDS: ALBUT/IPRATROP 3MG/0.5MG NEB 3 ML VIAL NEB SCH ×4 (05:43→17:52)
[2022-05-15] MEDS: PANTOprazole 40 MG TAB PO PRN (06:27)
[2022-05-15 07:32] LABS: Hematocrit (blood only) 31.3 % (37.0-47.0); Hemoglobin 10.7 g/dl (12.0-16.0); Mean Corpuscular Hemoglobin 29.6 pg (25.0-34.0); Mean Corpuscular Hgb Conc 34.2 g/dL (32.0-36.0); Mean Corpuscular Volume 86.7 fL (80.0-100.0); Mean Platelet Volume 9.6 fL (9.4-12.4); Platelet Count 277 K/uL (130-400); RDW Coefficient of Variation 12.4 % (11.5-14.5); RDW Standard Deviation 39.5 fL (36.4-46.3); Red Blood Count 3.61 M/uL (4.20-5.40); White Blood Count 16.13 K/ul (4.8-10.8)
[2022-05-15 07:51] LABS: Calcium 8.9 mg/dl (8.5-10.1); Potassium 4.1 mmol/L (3.5-5.1)
[2022-05-15 07:56] LABS: BUN Creatinine Ratio 30.9 (10-20); Est GFR (African American) 72.8 ml/min; Est GFR (Non-African American) 62.8 ml/min
[2022-05-15] MEDS: ENOXAPARIN INJ 40 MG/0.4 ML SYR SQ SCH (08:30)
[2022-05-15] MEDS: UMECLIDINIUM/VILANTEROL 62.5/25MCG 7 PUFFS/INHALER INH SCH (08:30)
[2022-05-15] MEDS: FLUTICASONE FUROATE 200MCG 14 PUFFS/INHALER INH SCH (08:30)
[2022-05-15] MEDS: methylPREDNISolone 40 MG in SYRINGE 0 ML IV SCH ×3 (08:30→20:56)
[2022-05-15] MEDS: ESCITALOPRAM OXALATE 10 MG TAB PO SCH (08:31)
[2022-05-15] MEDS: OSELTAMIVIR PHOSPHATE 75 MG CAP PO SCH (08:31)
[2022-05-15] MEDS: LORazepam 0.5 MG TAB PO PRN (08:35)
[2022-05-15] MEDS: BENZONATATE 100 MG CAPSULE PO PRN ×2 (13:45→20:56)
[2022-05-15] MEDS: OSELTAMIVIR PHOSPHATE SUSP 30 MG/5 ML UDP PO SCH (20:56)
[2022-05-15] MEDS: ALBUTEROL 0.083% NEBU SOLN 3 ML VIAL INH PRN (22:24)
--- NOTE | 2022-05-15 23:54 | Hospitalist Progress Note ---
Date of Service May 15, 2022 Assessment & Plan (1) Influenza A: Plan: 66yo female with one day of fever, worsening cough productive for yellow sputum and hypoxia. Patient found to be POSITIVE for influenza A. She is vaccinated. Presently saturating well on 3L NC - 95% -Admit to medical -Maintain isolation precautions -Maintain supplemental O2, goal saturation 88-92% -Tamiflu 75mg po BID -Albuterol PRN -Tylenol and Ibuprofe PRN pain or fever 05/15-continue Tamiflu Increase nebulizer treatment frequency Patient reports dysuria symptoms check UA and urine culture Continue IV Solu-Medrol along with DuoNeb's (2) COPD (chronic obstructive pulmonary disease): Plan: Suspect acute exacerbation of COPD in setting of Influenza infection. Diminished breath sounds bilaterally. Patient reports significant dyspnea with minimal exertion, cough with sputum production -DuoNebs q 4 hours -Albuterol q 2 hours PRN -Solumedrol 40mg IV TID -Continue Trelegy Ellipta (3) Anxiety with depression: Plan: Chronic. Patient with increased anxiety in ER, improved with Ativan -Continue Lexapro -Ativan PRN at home dose F/E/N - LR at 80mL/hr x 1L, electroltyes WNL, regular diet as tolerated Ppx - Lovenox Code - Full Dispo - Admit to medical Admission and Anticipated Discharge Date Admission Date: May 14, 2022 Subjective Patient reports slight improvement in her shortness of breath and cough symptoms Patient describes some dysuria as well Physical Exam Physical Exam: Head and ENT no thyroid enlargement trachea midline Cardiovascular S1-S2 are normal no S3 Lungs bilateral air entry decreased at bases Few scattered rhonchi heart Abdomen soft nondistended positive bowel sounds no rebound tenderness Extremity shows trace edema Neurologically no focal deficits Skin shows no rash no cyanosis Results & Data Results & Data ([facility]) Vital Signs (Past 12 Hours) Vital Signs Temp Pulse Pulse Resp BP BP Pulse Ox 05/15/22 23:04 106 H 22 93 05/15/22 22:25 104 H 20 96 05/15/22 21:58 37.2 C 116 H 28 H 162/82 H 92 05/15/22 19:42 114 H 22 94 05/15/22 17:53 107 H 18 94 05/15/22 16:00 37 C 100 H 18 152/72 H 95 05/15/22 13:52 110 H 24 92 O2 Del Method O2 Flow Rate 05/15/22 23:04 Nasal Cannula 3 05/15/22 22:25 Nasal Cannula 3 05/15/22 21:58 Nasal Cannula 4 05/15/22 19:42 Nasal Cannula 3 05/15/22 17:53 Nasal Cannula 3 05/15/22 16:00 Nasal Cannula 3 05/15/22 13:52 Nasal Cannula 3 PG Care Time/CCT Total # of Minutes Spent Total Time Spent with Patient: Total time spent is greater than 50% in coordination of care (as documented) at patient's floor/unit and/or counseling patient: Coding Level of Care Code 68739 SUB INP/OBS CARE 2/35MIN Diagnoses Influenza A J10.1 COPD (chronic obstructive pulmonary disease) J44.9 COPD type: unspecified COPD Anxiety with depression F41.8 (1) COPD (chronic obstructive pulmonary disease) COPD type: unspecified COPD Qualified Code(s): J44.9 - Chronic obstructive pulmonary disease, unspecified
[2022-05-16] MEDS: ALBUT/IPRATROP 3MG/0.5MG NEB 3 ML VIAL NEB SCH ×4 (06:49→20:13)
[2022-05-16] MEDS: UMECLIDINIUM/VILANTEROL 62.5/25MCG 7 PUFFS/INHALER INH SCH (08:24)
[2022-05-16] MEDS: methylPREDNISolone 40 MG in SYRINGE 0 ML IV SCH ×3 (08:24→20:03)
[2022-05-16] MEDS: FLUTICASONE FUROATE 200MCG 14 PUFFS/INHALER INH SCH (08:24)
[2022-05-16] MEDS: ESCITALOPRAM OXALATE 10 MG TAB PO SCH (08:43)
[2022-05-16] MEDS: ENOXAPARIN INJ 40 MG/0.4 ML SYR SQ SCH (08:43)
[2022-05-16] MEDS: PANTOprazole 40 MG TAB PO PRN (08:43)
[2022-05-16] MEDS: OSELTAMIVIR PHOSPHATE SUSP 30 MG/5 ML UDP PO SCH ×2 (08:43→20:03)
[2022-05-16] MEDS: BENZONATATE 100 MG CAPSULE PO PRN ×2 (08:49→20:03)
[2022-05-16] MEDS: ALBUTEROL 0.083% NEBU SOLN 3 ML VIAL INH PRN (09:57)
[2022-05-16] MEDS: LORazepam 0.5 MG TAB PO PRN ×2 (11:46→20:03)
[2022-05-16] MEDS: cefTRIAXone SODIUM 1,000 MG in DEXTROSE 5% AD-VAN 50 ML IV SCH (18:44)
[2022-05-16 18:59] LABS: Appearance Urine Clear (Clear); Bilirubin Urine Negative (Negative); Blood Urine Negative (Negative); Color Urine Yellow; Glucose Urine UA Negative (Negative); Ketones Urine Negative (Negative); Leukocyte Esterase Urine Negative (Negative); Nitrite Urine Negative (Negative); Protein Urine Negative (Negative); Specific Gravity Urine 1.014 (1.000-1.030); Urobilinogen Urine Negative (Negative)
--- NOTE | 2022-05-16 19:26 | Hospitalist Progress Note ---
Date of Service May 16, 2022 Assessment & Plan (1) Influenza A: Plan: 66yo female with one day of fever, worsening cough productive for yellow sputum and hypoxia. Patient found to be POSITIVE for influenza A. She is vaccinated. Presently saturating well on 3L NC - 95% -Admit to medical -Maintain isolation precautions -Maintain supplemental O2, goal saturation 88-92% -Tamiflu 75mg po BID -Albuterol PRN -Tylenol and Ibuprofe PRN pain or fever 05/15-continue Tamiflu Increase nebulizer treatment frequency Patient reports dysuria symptoms check UA and urine culture Continue IV Solu-Medrol along with DuoNeb's 05/16-continue IV steroids along with DuoNeb nebulizers Continue Tamiflu treatment Recheck UA along with urine culture and if positive consider ceftriaxone As patient reports recurrent UTI with E. coli (2) COPD (chronic obstructive pulmonary disease): Plan: Suspect acute exacerbation of COPD in setting of Influenza infection. Diminished breath sounds bilaterally. Patient reports significant dyspnea with minimal exertion, cough with sputum production -DuoNebs q 4 hours -Albuterol q 2 hours PRN -Solumedrol 40mg IV TID -Continue Trelegy Ellipta (3) Anxiety with depression: Plan: Chronic. Patient with increased anxiety in ER, improved with Ativan -Continue Lexapro -Ativan PRN at home dose F/E/N - LR at 80mL/hr x 1L, electroltyes WNL, regular diet as tolerated Ppx - Lovenox Code - Full Dispo - Admit to medical Admission and Anticipated Discharge Date Admission Date: May 14, 2022 Subjective Patient reports slight improvement in her shortness of breath and cough symptoms Patient describes some dysuria as well Patient reports prior urinary tract infection with E. coli And feels that her symptoms are returning Physical Exam Physical Exam: Head and ENT no thyroid enlargement trachea midline Cardiovascular S1-S2 are normal no S3 Lungs bilateral air entry decreased at bases with scattered rhonchi no active wheezing Abdomen soft nondistended positive bowel sounds no rebound tenderness Extremity shows trace edema Neurologically no focal deficits Skin shows no rash no cyanosis Results & Data Results & Data ([facility]) Vital Signs (Past 12 Hours) Vital Signs Temp Pulse Pulse Resp BP Pulse Ox O2 Del Method 05/16/22 15:48 37.0 C 82 20 141/70 H 96 Nasal Cannula 05/16/22 14:53 82 18 97 Nasal Cannula 05/16/22 09:00 Nasal Cannula 05/16/22 09:57 89 18 97 Nasal Cannula 05/16/22 07:45 36.6 C 87 20 151/70 H 93 Nasal Cannula O2 Flow Rate 05/16/22 15:48 3.5 05/16/22 14:53 3 05/16/22 09:00 4 05/16/22 09:57 3 05/16/22 07:45 3.5 Laboratory Results Urine 05/16/22 Range/Units 18:45 Urine Color Yellow Urine Appearance Clear (Clear) Urine pH 6.0 (4.5-7.5) Ur Specific [place] 1.014 (1.000-1.030) Urine Protein Negative (Negative) Urine Glucose (UA) Negative (Negative) PG Care Time/CCT Total # of Minutes Spent Total Time Spent with Patient: Total time spent is greater than 50% in coordination of care (as documented) at patient's floor/unit and/or counseling patient: Coding Level of Care Code 44981 SUB INP/OBS CARE 2/35MIN Diagnoses Influenza A J10.1 COPD (chronic obstructive pulmonary disease) J44.9 COPD type: unspecified COPD Anxiety with depression F41.8 (1) COPD (chronic obstructive pulmonary disease) COPD type: unspecified COPD Qualified Code(s): J44.9 - Chronic obstructive pulmonary disease, unspecified
[2022-05-16] MEDS: guaiFENesin 600 MG TABCR PO SCH (20:03)
[2022-05-17] MEDS: ALBUT/IPRATROP 3MG/0.5MG NEB 3 ML VIAL NEB SCH ×4 (07:24→19:15)
--- NOTE | 2022-05-17 07:39 | Hospitalist Progress Note ---
Date of Service May 17, 2022 Assessment & Plan (1) Influenza A: Plan: 66yo female with one day of fever, worsening cough productive for yellow sputum and hypoxia. Patient found to be POSITIVE for influenza A. She is vaccinated. Presently saturating well on 3L NC - 95%. Prior COVID x 3, negative on admit Maintain isolation precautions Started on Tamiflu BID, dosed for renal function, increased to 75mg BID (day 3) Albuterol prn Tylenol/ibuprofen prn pain/fever 05/17: Prior provider increased nebulizer frequency, UA checked/urine cx -- UA negative, no cx sent. Reports improvement in symptoms. Increased tamiflu to 75m BID for renal function improved, reports improvement in PO intake and will avoid giving IVF Discussed with patient and she has had green/brown/yellow sputum production, and given her underlying COPD was not placed on abx until last evening with Rocephin and mucinex which we will continue for now (procal 0.17 on admit) Consider adding azithromycin (would hold lexapro in meantime given risk for QTC prolongation) Continue incentive spirometer, added flutter valve scheduled as was in PRN Asked RN to obtain sputum cx-- pending from this morning Transition to prednisone 50mg for AM, taper at discharge Added pepcid for GI proph Supplemental O2 to maintain sats -- stable on her usual 3L NC currently Patient also with concerns/safety at d/c as would be home alone for 2 days. Not worked with therapy while inpatient-- req PT/OT consults (2) COPD (chronic obstructive pulmonary disease): Plan: Suspect acute exacerbation of COPD in setting of Influenza infection. Reported significant TAPIA w/ minimal exertion along w/ cough/sputum production and fever/chills at home Nebs duoneb, albuterol prn Continue trelegy Solumedrol switched to prednisone for AM and plan taper at dc Continue ceftriaxone for now, monitor sputum cx Consider adding hypertonic saline if needed to help clear secretions but will continue mucinex BID for now and could increase to 1200mg BID O2 as needed -- back to baseline 3L NC (3) Anxiety with depression: Plan: Chronic. Patient with increased anxiety in ER, improved with Ativan Continue Lexapro Ativan PRN at home dose DVT proph- Lovenox SQ while inpatient Plan continued inpatient stay continue rocephin, consider adding azithro for COPD exacerbation coverage, monitoring sputum cx transition from IV steroids to prednisone for AM, taper at discharge added flutter valve, to continue incentive spirometer, mucinex, nebs PT/OT consulted to ensure no needs at home Admission and Anticipated Discharge Date Admission Date: May 14, 2022 Supervising Physician Co-Signing Physician Notes The patient was not seen by me. Chart reviewed. Case discussed with Courtney Aguilar, physicians product safety technical assistant. Agree with assessment and plan Subjective eval this morning, states breathing better. sputum production yellow/brown/green at times. started abx last evening, she said she asked about mucinex as well. She notes today is the first time she has had much of an appetite/taking in more oral intake. She notes prior provider checking on her for past couple of days from hallway, never with actual exam. She thought he was coming back as she had questions and he did not. She does not have any further wheezing on exam, discussed transition to prednisone for AM. She is slightly worried about going home as she will be there alone for the next 2 days. Had not worked with therapy while inpatient, discussed will consult to ensure no needs/HH at home. States chill symptoms resolving. Less dysuria symptoms and feeling better starting since last night with abx and mucinex added. She did provide sputum cx this morning and discussed will monitor but would continue tx w/ abx for COPD exacerbation. Review of Systems Review of Systems: All systems reviewed & are unremarkable except as noted in HPI & below Physical Exam Physical Exam: General: WD female, chronically ill in appearance sitting up in bed, NAD HEENT: head normocephalic, atraumatic, mm slightly dry, trachea midline Resp: diminished throughout but bibasilar crackles, no wheezing, on 3L NC, no tachypnea CV: RRR, no m/r/g, no pitting edema or calf tenderness bilaterally GI: +BS, soft/NT : no chowdhury MSK/Neuro: moves all extremities, no focal deficit/slurred speech, clubbing of nails noted Psych: AOx3, pleasant and cooperative Results & Data Results & Data ([facility]) Vital Signs (Past 12 Hours) Vital Signs Temp Pulse Resp BP Pulse Ox O2 Del Method O2 Flow Rate 05/17/22 07:24 81 18 91 Nasal Cannula 3 05/16/22 20:00 Nasal Cannula 3 05/16/22 22:45 36.9 C 92 H 18 164/81 H 93 Nasal Cannula 3 05/16/22 20:13 90 22 92 Nasal Cannula 3 Laboratory Results 05/17/22 05/17/22 05/17/22 Range/Units 07:03 07:03 07:03 WBC 15.31 H (4.8-10.8) K/ul RBC 3.63 L (4.20-5.40) M/uL Hgb 10.8 L (12.0-16.0) g/dl Hct 32.1 L (37.0-47.0) % MCV 88.4 (80.0-100.0) fL MCH 29.8 (25.0-34.0) pg MCHC 33.6 (32.0-36.0) g/dL RDW Std Deviation 40.5 (36.4-46.3) fL RDW Coeff of Audrey 12.4 (11.5-14.5) % Plt Count 258 (130-400) K/uL MPV 9.5 (9.4-12.4) fL Sodium 140 (136-145) mmol/L Potassium 4.4 (3.5-5.1) mmol/L Chloride 104 (98-107) mmol/L Carbon Dioxide 32 (21-32) mmol/L Anion Gap 4 (3-11) BUN 24 H (6-23) mg/dl Creatinine 0.82 (0.6-1.2) mg/dl Est Cr Clr Drug Dosing 65.3 ml/min Est GFR ( Amer) 85.8 ml/min Est GFR (Non-Af Amer) 74.0 ml/min BUN/Creatinine Ratio 29.3 H (10-20) Glucose 135 H (70-99(Fasting)) mg/dl Calcium 8.4 L (8.5-10.1) mg/dl Magnesium 2.2 (1.7-2.4) mg/dl Urine Color Urine Appearance (Clear) Urine pH (4.5-7.5) Ur Specific [place] (1.000-1.030) Urine Protein (Negative) Urine Glucose (UA) (Negative) Urine Ketones (Negative) Urine Blood (Negative) Urine Nitrite (Negative) Urine Bilirubin (Negative) Urine Urobilinogen (Negative) Ur Leukocyte Esterase (Negative) 05/16/22 Range/Units 18:45 WBC (4.8-10.8) K/ul RBC (4.20-5.40) M/uL Hgb (12.0-16.0) g/dl Hct (37.0-47.0) % MCV (80.0-100.0) fL MCH (25.0-34.0) pg MCHC (32.0-36.0) g/dL RDW Std Deviation (36.4-46.3) fL RDW Coeff of Audrey (11.5-14.5) % Plt Count (130-400) K/uL MPV (9.4-12.4) fL Sodium (136-145) mmol/L Potassium (3.5-5.1) mmol/L Chloride (98-107) mmol/L Carbon Dioxide (21-32) mmol/L Anion Gap (3-11) BUN (6-23) mg/dl Creatinine (0.6-1.2) mg/dl Est Cr Clr Drug Dosing ml/min Est GFR ( Amer) ml/min Est GFR (Non-Af Amer) ml/min BUN/Creatinine Ratio (10-20) Glucose (70-99(Fasting)) mg/dl Calcium (8.5-10.1) mg/dl Magnesium (1.7-2.4) mg/dl Urine Color Yellow Urine Appearance Clear (Clear) Urine pH 6.0 (4.5-7.5) Ur Specific [place] 1.014 (1.000-1.030) Urine Protein Negative (Negative) Urine Glucose (UA) Negative (Negative) Urine Ketones Negative (Negative) Urine Blood Negative (Negative) Urine Nitrite Negative (Negative) Urine Bilirubin Negative (Negative) Urine Urobilinogen Negative (Negative) Ur Leukocyte Esterase Negative (Negative) Diagnostic Findings Chest X-Ray 05/17/22 07:35 XR chest 1V portable HISTORY: 66 years-old Female eval pna acute shortness of breath COMPARISON: Chest radiograph 05/14/2022, chest CT 04/26/2022 TECHNIQUE: AP view of the chest FINDINGS: Cardiomediastinal and hilar silhouettes are within normal limits. No pneumothorax, pleural effusion, airspace consolidation or overt pulmonary edema. Minimal bibasilar densities favoring atelectasis. Emphysema with chronic interstitial coarsening. Degenerative changes of the shoulders and spine. IMPRESSION: 1. Mild bibasilar densities favoring atelectasis. 2. Emphysema with chronic interstitial coarsening. ACT 112: Negative or not required by law. The above report was generated using voice recognition software. It may contain grammatical, syntax or spelling errors. Electronically signed by: Landon Lechuga M.D. 05/17/2022 9:44 AM PG Care Time/CCT Total # of Minutes Spent Total Time Spent with Patient: Total time spent is greater than 50% in coordination of care (as documented) at patient's floor/unit and/or counseling patient: Coding Level of Care Code 55674 SUB INP/OBS CARE 3/50MIN Diagnoses Influenza A J10.1 COPD (chronic obstructive pulmonary disease) J44.9 COPD type: unspecified COPD Anxiety with depression F41.8 (1) COPD (chronic obstructive pulmonary disease) COPD type: unspecified COPD Qualified Code(s): J44.9 - Chronic obstructive pulmonary disease, unspecified
[2022-05-17 07:40] LABS: Hematocrit (blood only) 32.1 % (37.0-47.0); Hemoglobin 10.8 g/dl (12.0-16.0); Mean Corpuscular Hemoglobin 29.8 pg (25.0-34.0); Mean Corpuscular Hgb Conc 33.6 g/dL (32.0-36.0); Mean Corpuscular Volume 88.4 fL (80.0-100.0); Mean Platelet Volume 9.5 fL (9.4-12.4); Platelet Count 258 K/uL (130-400); RDW Coefficient of Variation 12.4 % (11.5-14.5); RDW Standard Deviation 40.5 fL (36.4-46.3); Red Blood Count 3.63 M/uL (4.20-5.40); White Blood Count 15.31 K/ul (4.8-10.8)
[2022-05-17] MEDS: guaiFENesin 600 MG TABCR PO SCH ×2 (07:56→20:23)
[2022-05-17] MEDS: ENOXAPARIN INJ 40 MG/0.4 ML SYR SQ SCH (07:57)
[2022-05-17] MEDS: ESCITALOPRAM OXALATE 10 MG TAB PO SCH (07:57)
[2022-05-17] MEDS: OSELTAMIVIR PHOSPHATE SUSP 30 MG/5 ML UDP PO SCH (07:57)
[2022-05-17] MEDS: methylPREDNISolone 40 MG in SYRINGE 0 ML IV SCH (07:58)
[2022-05-17] MEDS: FLUTICASONE FUROATE 200MCG 14 PUFFS/INHALER INH SCH (07:59)
[2022-05-17] MEDS: UMECLIDINIUM/VILANTEROL 62.5/25MCG 7 PUFFS/INHALER INH SCH (07:59)
[2022-05-17 08:13] LABS: Calcium 8.4 mg/dl (8.5-10.1); Potassium 4.4 mmol/L (3.5-5.1)
[2022-05-17 08:19] LABS: BUN Creatinine Ratio 29.3 (10-20); Creatinine Clr Calc Pharmacy 65.3 ml/min; Est GFR (African American) 85.8 ml/min
--- NOTE | 2022-05-17 09:45 | XRay Report ---
XR chest 1V portable HISTORY: 66 years-old Female eval pna acute shortness of breath COMPARISON: Chest radiograph 05/14/2022, chest CT 04/26/2022 TECHNIQUE: AP view of the chest FINDINGS: Cardiomediastinal and hilar silhouettes are within normal limits. No pneumothorax, pleural effusion, airspace consolidation or overt pulmonary edema. Minimal bibasilar densities favoring atelectasis. Em physema with chronic interstitial coarsening. Degenerative changes of the shoulders and spine. IMPRESSION: 1. Mild bibasilar densities favoring atelectasis. 2. Emphysema with chronic interstitial coarsening. ACT 112: Negative or not required by law. The above report was generated using voice recognition software. It may contain grammatical, syntax o r spelling errors. Electronically signed by: Landon Lechuga M.D. 05/17/2022 9:44 AM
[2022-05-17] MEDS: FAMOTIDINE 20 MG in SYRINGE 3 ML IV SCH (11:06)
[2022-05-17] MEDS: ACETAMINOPHEN 325 MG TAB PO PRN (16:53)
[2022-05-17] MEDS: cefTRIAXone SODIUM 1,000 MG in DEXTROSE 5% AD-VAN 50 ML IV SCH (18:35)
[2022-05-17] MEDS: SODIUM CHLOR 7% 4 ML NEB NEB SCH (19:14)
[2022-05-17] MEDS: OSELTAMIVIR PHOSPHATE 75 MG CAP PO SCH (20:23)
[2022-05-18] MEDS: ALBUT/IPRATROP 3MG/0.5MG NEB 3 ML VIAL NEB SCH ×5 (07:11→19:33)
[2022-05-18] MEDS: SODIUM CHLOR 7% 4 ML NEB NEB SCH ×2 (07:11→19:25)
--- NOTE | 2022-05-18 07:44 | Hospitalist Progress Note ---
Date of Service May 18, 2022 Assessment & Plan (1) Influenza A: Plan: 66yo female with one day of fever, worsening cough productive for yellow sputum and hypoxia. Patient found to be POSITIVE for influenza A. She is vaccinated. Presently saturating well on 3L NC - 95%. Prior COVID x 3, negative on admit Maintain isolation precautions Started on Tamiflu BID, dosed for renal function, increased to 75mg BID (day 06/20) Albuterol prn Tylenol/ibuprofen prn pain/fever 05/17: Prior provider increased nebulizer frequency, UA checked/urine cx -- UA negative, no cx sent. Reports improvement in symptoms. Increased tamiflu to 75m BID for renal function improved, reports improvement in PO intake and will avoid giving IVF Patient w/ reported green/brown/yellow sputum production -- abx started evening 05/16 w/ rocephin (?not azithro given underlying COPD), procal 0.17 on admit Continue incentive spirometer, added flutter valve scheduled as was in PRN and added hypertonic saline nebs to help clear secretions Transitioned to PO prednisone for AM, taper at d/c Started pepcid for GI proph while on steroids 05/18 Checked EKG this morning given discussion w/ Dr Ortega, QTc 400ms. Discussed w/ Dr Ortega and given patient in w/ influenza and not just COPD exacerbation, would wait on starting M-W- Azithro. Patient can f/u in office for further discussions if exacerbations increased Stable on prednisone 50mg for today -- planned taper sent (will need shortened by one day given staying overnight) Had started hypertonic saline and increased her Mucinex and patient w/ improvement in clearing her secretions -- had a coughing spell last evening w/ initially dosing but stated she tolerated this morning well and wondering if she can be continued on this at discharge. Has neb device at home. Rxs already sent -- Sputum cx light normal natalee on initial, final pending Patient worried about going home alone, placed consults for PT/OT and recs for return home. Patient states today is the first day she is finally eating/drinking like normal and would like to monitor overnight and comfortable w/ discharge in AM. She does have some reflux -- had placed on pepcid but will switch to protonix. She notes her stools may have been on the darker side -- check fecal occult (hgb stable) -- send on empiric protonix while completing course of steroids (sounds like hx underlying reflux/regurg w/ hiatal hernia reported) Consider continued abx w/ PO DOxy at d/c for COPD exacerbation if sputum cx negative (2) COPD (chronic obstructive pulmonary disease): Plan: Suspect acute exacerbation of COPD in setting of Influenza infection. Reported significant TAPAI w/ minimal exertion along w/ cough/sputum production and fever/chills at home berta Estevez Hypertonic saline added 05/17 and improvement in clearance of sputum and will continue Continue added mucinex, increased to 1200mg BID - continue at d/c Continue incentive spirometer, added flutter valve scheduled and would continue Solumedrol converted to prednisone as above for today, taper at discharge sent Ceftriaxone for now, sputum cx light normal natalee on prelim -- consider d/c PO doxy at d/c to complete course for COPD exacerbation Discussed w/ Dr Ortega, checked EKG, QTC improving. Given inpatient for influenza, no M-W-F Azithro at d/c but can be discussed in follow up w/ pulmonol ogy Stable on her 3L currently -- supplemental O2 to maintain sats (3) Anxiety with depression: Plan: Chronic. Patient with increased anxiety in ER, improved with Ativan Continue Lexapro Ativan PRN at home dose -- refill requested for at discharge -- uses sparingly -- rx has been sent already for 7 tablets and discussed to f/u PCP (4) Acid reflux: Plan: reported improvement w/ pepcid yesterday but given reports of some mild symptoms persisting, placed on PPI BID (also checking stool given darkened color -- denied hx GI bleeding or ulcers) rx for PPI at d/c and can make daily if no evidence for bleeding on fecal occult which has been requested DVT proph- Lovenox SQ while inpatient Plan continued inpatient stay protonix for reflux, check fecal occult for completeness given darkened stools -- if negative would just continue daily at discharge abx continued and monitoring sputum cx -- if negative plan Doxy PO at d/c to complete course for COPD exacerbation Complete course of Tamiflu Patient to be discharged tomorrow. Discharge instructions and medications have been sent, just needs additional information if sputum cx grows out anything/alteration in antibiotics Admission and Anticipated Discharge Date Admission Date: May 14, 2022 Supervising Physician Co-Signing Physician Notes Attending Attestation - Chart reviewed, care plan d/w PILY Aguilar. I agree w/ the herzog components of her documentation. Aureliano Calderon MD Subjective evaluated this morning, doing well. some issues w/ hypertonic saline last evening but improvement today and able to tolerate. she would like to inquire about continuing these at home. discussed will send rx if able to tolerate. she does endorse she was able to expectorate more sputum. having some reflux discomfort, regurgitation at times. discussed she was told in past about a hiatal hernia and discussed improvement w/ Pepcid slightly last night. Will order Protonix. Moves bowels last night and thinks maybe slightly darkened. No hx GI bleeding. Will check fecal occult for completeness. She states feeling much better but would like to monitor overnight to ensure continued improvement and will plan for discharge tomorrow. Questions/concerns addressed at this time. Review of Systems Review of Systems: All systems reviewed & are unremarkable except as noted in HPI & below Physical Exam Physical Exam: General: WD female, chronically ill in appearance sitting up in bed, NAD HEENT: head normocephalic, atraumatic, mm slightly dry, trachea midline Resp: diminished throughout, no wheezing, on 3L chronically, no tachypnea CV: RRR, no m/r/g, no pitting edema or calf tenderness bilaterally GI: +BS, soft/NT : no chowdhury MSK/Neuro: moves all extremities, no focal deficit/slurred speech, clubbing of nails noted Psych: AOx3, pleasant and cooperative Results & Data Results & Data ([facility]) Vital Signs (Past 12 Hours) Vital Signs Temp Pulse Resp BP Pulse Ox O2 Del Method O2 Flow Rate 05/18/22 07:14 76 18 91 Nasal Cannula 3 05/17/22 21:51 36.8 C 84 20 165/81 H 94 Nasal Cannula 3 05/17/22 21:49 Nasal Cannula 3 Laboratory Results 05/18/22 05/18/22 05/18/22 Range/Units 07:23 07:23 07:23 WBC 10.66 (4.8-10.8) K/ul RBC 3.72 L (4.20-5.40) M/uL Hgb 11.2 L (12.0-16.0) g/dl Hct 32.9 L (37.0-47.0) % MCV 88.4 (80.0-100.0) fL MCH 30.1 (25.0-34.0) pg MCHC 34.0 (32.0-36.0) g/dL RDW Std Deviation 39.4 (36.4-46.3) fL RDW Coeff of Audrey 12.2 (11.5-14.5) % Plt Count 248 (130-400) K/uL MPV 9.2 L (9.4-12.4) fL Sodium 141 (136-145) mmol/L Potassium 3.7 (3.5-5.1) mmol/L Chloride 105 (98-107) mmol/L Carbon Dioxide 31 (21-32) mmol/L Anion Gap 5 (3-11) BUN 22 (6-23) mg/dl Creatinine 0.81 (0.6-1.2) mg/dl Est Cr Clr Drug Dosing 66.2 ml/min Est GFR ( Amer) 87.1 ml/min Est GFR (Non-Af Amer) 75.2 ml/min BUN/Creatinine Ratio 27.2 H (10-20) Glucose 82 (70-99(Fasting)) mg/dl Calcium 8.2 L (8.5-10.1) mg/dl Magnesium 2.0 (1.7-2.4) mg/dl Iron 73 (35-150) mcg/dl TIBC 204 L (250-450) mcg/dl Unsaturated IBC 131 L (155-355) mcg/dl Transferrin % Sat 36 (15-50) % Ferritin 151.1 (8-388) ng/ml Vitamin B12 380 (180-914) pg/ml Folate 5.72 (>5.38) ng/ml PG Care Time/CCT Total # of Minutes Spent Total Time Spent with Patient: Total time spent is greater than 50% in coordination of care (as documented) at patient's floor/unit and/or counseling patient: Coding Level of Care Code 00244 SUB INP/OBS CARE 3/50MIN Diagnoses Influenza A J10.1 COPD (chronic obstructive pulmonary disease) J44.9 COPD type: unspecified COPD Anxiety with depression F41.8 Acid reflux K21.9 (1) COPD (chronic obstructive pulmonary disease) COPD type: unspecified COPD Qualified Code(s): J44.9 - Chronic obstructive pulmonary disease, unspecified
[2022-05-18] MEDS: FAMOTIDINE 20 MG in SYRINGE 3 ML IV SCH (07:48)
[2022-05-18] MEDS: ACETAMINOPHEN 325 MG TAB PO PRN (07:54)
[2022-05-18 08:01] LABS: Hematocrit (blood only) 32.9 % (37.0-47.0); Hemoglobin 11.2 g/dl (12.0-16.0); Mean Corpuscular Hemoglobin 30.1 pg (25.0-34.0); Mean Corpuscular Volume 88.4 fL (80.0-100.0); Mean Platelet Volume 9.2 fL (9.4-12.4); Platelet Count 248 K/uL (130-400); RDW Coefficient of Variation 12.2 % (11.5-14.5); RDW Standard Deviation 39.4 fL (36.4-46.3); Red Blood Count 3.72 M/uL (4.20-5.40); White Blood Count 10.66 K/ul (4.8-10.8)
[2022-05-18 08:13] LABS: BUN Creatinine Ratio 27.2 (10-20); Calcium 8.2 mg/dl (8.5-10.1); Creatinine Clr Calc Pharmacy 66.2 ml/min; Est GFR (African American) 87.1 ml/min; Est GFR (Non-African American) 75.2 ml/min; Potassium 3.7 mmol/L (3.5-5.1)
[2022-05-18 08:32] LABS: Ferritin 151.1 ng/ml (8-388)
[2022-05-18] MEDS: UMECLIDINIUM/VILANTEROL 62.5/25MCG 7 PUFFS/INHALER INH SCH (08:39)
[2022-05-18] MEDS: ESCITALOPRAM OXALATE 10 MG TAB PO SCH (08:42)
[2022-05-18] MEDS: OSELTAMIVIR PHOSPHATE 75 MG CAP PO SCH ×2 (08:43→20:57)
[2022-05-18] MEDS: predniSONE 50 MG TAB PO SCH (08:43)
[2022-05-18] MEDS: guaiFENesin 600 MG TABCR PO SCH ×2 (08:43→20:57)
[2022-05-18] MEDS: ENOXAPARIN INJ 40 MG/0.4 ML SYR SQ SCH (08:47)
[2022-05-18] MEDS: FLUTICASONE FUROATE 200MCG 14 PUFFS/INHALER INH SCH (08:51)
[2022-05-18] MEDS: PANTOprazole 40 MG TAB PO SCH ×2 (11:41→20:57)
[2022-05-18] MEDS: LORazepam 0.5 MG TAB PO PRN (11:41)
[2022-05-18] MEDS: FOLIC ACID 1 MG TAB PO SCH (11:44)
[2022-05-18] MEDS: CYANOCOBALAMIN (B-12) 500 MCG TABLET PO SCH (11:45)
--- NOTE | 2022-05-18 15:32 | Electrocardiogram Report ---
Test Reason : Blood Pressure : / mmHG Vent. Rate : 072 BPM Atrial Rate : 072 BPM P-R Int : 166 ms QRS Dur : 082 ms QT Int : 366 ms P-R-T Axes : 081 069 065 degrees QTc Int : 400 ms Poor data quality, interpretation may be adversely affected Normal sinus rhythm Nonspecific ST abnormality Abnormal ECG When compared with ECG of 14-MAY-2022 00:31, Non-specific change in ST segment in Inferior leads Nonspecific T wave abnormality no longer evident in Lateral leads Confirmed by Otf Banuelos ([id number]) on 05/18/2022 3:31:50 PM Referred By: REFERRED SELF Confirmed By:Otf Banuelos
[2022-05-18] MEDS: cefTRIAXone SODIUM 1,000 MG in DEXTROSE 5% AD-VAN 50 ML IV SCH (18:31)
[2022-05-18] MEDS: DOXYCYCLINE HYCLATE 100 MG in DEXTROSE 5% 100 ML IV SCH (19:30)
[2022-05-18] MEDS ORDERED: PANTOprazole 40 MG TAB PO SCH (21:00)
[2022-05-19] MEDS: DOXYCYCLINE HYCLATE 100 MG in DEXTROSE 5% 100 ML IV SCH ×2 (05:18→18:07)
[2022-05-19] MEDS: ALBUT/IPRATROP 3MG/0.5MG NEB 3 ML VIAL NEB SCH ×4 (06:58→19:46)
[2022-05-19] MEDS: SODIUM CHLOR 7% 4 ML NEB NEB SCH ×2 (06:58→19:46)
[2022-05-19] MEDS: LORazepam 0.5 MG TAB PO PRN (07:09)
[2022-05-19] MEDS: ESCITALOPRAM OXALATE 10 MG TAB PO SCH (08:17)
[2022-05-19] MEDS: CYANOCOBALAMIN (B-12) 500 MCG TABLET PO SCH (08:17)
[2022-05-19] MEDS: predniSONE 50 MG TAB PO SCH (08:18)
[2022-05-19] MEDS: FOLIC ACID 1 MG TAB PO SCH (08:18)
[2022-05-19] MEDS: PANTOprazole 40 MG TAB PO SCH ×2 (08:18→20:27)
[2022-05-19] MEDS: guaiFENesin 600 MG TABCR PO SCH ×2 (08:18→20:26)
[2022-05-19] MEDS: FAMOTIDINE 20 MG TAB PO SCH (08:18)
[2022-05-19] MEDS: FLUTICASONE FUROATE 200MCG 14 PUFFS/INHALER INH SCH (08:19)
[2022-05-19] MEDS: ENOXAPARIN INJ 40 MG/0.4 ML SYR SQ SCH (08:19)
[2022-05-19] MEDS: UMECLIDINIUM/VILANTEROL 62.5/25MCG 7 PUFFS/INHALER INH SCH (08:19)
--- NOTE | 2022-05-19 16:56 | Hospitalist Progress Note ---
Date of Service May 19, 2022 Assessment & Plan (1) Influenza A: Plan: 66yo female with one day of fever, worsening cough productive for yellow sputum and hypoxia. Patient found to be POSITIVE for influenza A. She is vaccinated. Presently saturating well on 3L NC - 95%. Prior COVID x 3, negative on admit Patient is clinically much improved following tamiflu, Incentive spirometry, fluttervalve, guaifenesin Still requiring oxygen will evaluate for home oxygen with 2 step (2) COPD (chronic obstructive pulmonary disease): Plan: Suspect acute exacerbation of COPD in setting of Influenza infection. Reported significant TAPIA w/ minimal exertion along w/ cough/sputum production and fever/chills at home Nebs, trelegy Hypertonic saline added 05/17 and improvement in clearance of sputum and will continue Continue added mucinex, increased to 1200mg BID - continue at d/c Continue incentive spirometer, added flutter valve scheduled and would continue Solumedrol converted to prednisone as above for today, taper at discharge sent Ceftriaxone for now, sputum cx light normal natalee on prelim -- consider d/c PO doxy at d/c to complete course for COPD exacerbation (3) Anxiety with depression: Plan: Chronic. Patient with increased anxiety in ER, improved with Ativan Continue Lexapro Ativan PRN at home dose -- refill requested for at discharge -- uses sparingly -- rx has been sent already for 7 tablets and discussed to f/u PCP (4) Acid reflux: Plan: reported improvement w/ pepcid yesterday but given reports of some mild symptoms persisting, placed on PPI BID (also checking stool given darkened color -- denied hx GI bleeding or ulcers) rx for PPI at d/c and can make daily if no evidence for bleeding on fecal occult which has been requested DVT proph- Lovenox SQ while inpatient Plan hoefully d/c tomorrow Admission and Anticipated Discharge Date Admission Date: May 14, 2022 Subjective patient seen and examined, feels overall better, although very weak still. daughter by the bedside Review of Systems Review of Systems: All systems reviewed are negative, apart from the ones contained in the history. Physical Exam Physical Exam: The patient is awake, alert and oriented 3, well developed and well nourished, normocephalic and atraumatic, lying in bed and in no acute dist ress. HEENT--PERRL, EOMI, mucous membranes and oropharynx mildly dry Neck--supple. No JVD. No bruits. Thyroid normal, trachea midline, no adenopathy. Heart--normal S1 and S2. No murmurs, rubs or gallops. Lungs--clear bilaterally, no respiratory distress, no accessory muscle use. Abdomen--normal bowel sounds and soft. Mild epigastric and left sided abdominal pain Extremities--no cyanosis or clubbing. No edema. Dermatologic--normal skin turgor, normal color, no abnormal lymph nodes, no rash. Neurologic--cranial nerves II through XII grossly intact. Rheumatologic--normal range of motion. Psychiatric--normal affect. Results & Data Results & Data ([facility]) Vital Signs (Past 12 Hours) Vital Signs Temp Pulse Pulse Resp BP Pulse Ox O2 Del Method 05/19/22 14:57 74 18 93 Nasal Cannula 05/19/22 14:57 98.2 F 79 18 134/78 97 Nebulizer 05/19/22 11:31 80 18 93 Nasal Cannula 05/19/22 08:00 Nasal Cannula 05/19/22 07:55 97.7 F 78 18 144/81 H 94 Nasal Cannula 05/19/22 06:58 71 18 98 Nasal Cannula O2 Flow Rate 05/19/22 14:57 3 05/19/22 14:57 05/19/22 11:31 3 05/19/22 08:00 3 05/19/22 07:55 3 05/19/22 06:58 3 PG Care Time/CCT Total # of Minutes Spent Total Time Spent with Patient: Total time spent is greater than 50% in coordination of care (as documented) at patient's floor/unit and/or counseling patient: Coding Level of Care Code 97484 SUB INP/OBS CARE 2/35MIN Diagnoses Influenza A J10.1 COPD (chronic obstructive pulmonary disease) J44.9 COPD type: unspecified COPD Anxiety with depression F41.8 Acid reflux K21.9 Time Spent (min) 35 (1) COPD (chronic obstructive pulmonary disease) COPD type: unspecified COPD Qualified Code(s): J44.9 - Chronic obstructive pulmonary disease, unspecified
[2022-05-20] MEDS: DOXYCYCLINE HYCLATE 100 MG in DEXTROSE 5% 100 ML IV SCH (05:45)
[2022-05-20] MEDS: SODIUM CHLOR 7% 4 ML NEB NEB SCH (07:04)
[2022-05-20] MEDS: ALBUT/IPRATROP 3MG/0.5MG NEB 3 ML VIAL NEB SCH ×2 (07:04→11:01)
[2022-05-20] MEDS: FLUTICASONE FUROATE 200MCG 14 PUFFS/INHALER INH SCH (08:31)
[2022-05-20] MEDS: UMECLIDINIUM/VILANTEROL 62.5/25MCG 7 PUFFS/INHALER INH SCH (08:32)
[2022-05-20] MEDS: ESCITALOPRAM OXALATE 10 MG TAB PO SCH (08:34)
[2022-05-20] MEDS: FOLIC ACID 1 MG TAB PO SCH (08:34)
[2022-05-20] MEDS: CYANOCOBALAMIN (B-12) 500 MCG TABLET PO SCH (08:34)
[2022-05-20] MEDS: guaiFENesin 600 MG TABCR PO SCH (08:35)
[2022-05-20] MEDS: predniSONE 50 MG TAB PO SCH (08:35)
[2022-05-20] MEDS: PANTOprazole 40 MG TAB PO SCH (08:35)
[2022-05-20] MEDS: FAMOTIDINE 20 MG TAB PO SCH (08:35)
[2022-05-20] MEDS: ENOXAPARIN INJ 40 MG/0.4 ML SYR SQ SCH (08:36)
[2022-05-20 11:01] LABS: Creatinine Clr Calc Pharmacy 61.6 ml/min; Est GFR (African American) 79.9 ml/min; Est GFR (Non-African American) 68.9 ml/min
[2022-05-20] MEDS: LORazepam 0.5 MG TAB PO PRN (12:30)
--- NOTE | 2022-05-20 13:59 | Discharge Summary ---
Date of Service May 20, 2022 Admission HPI Per Admitting Provider 66yo female with COPD on home O2 3L presenting with fever, chills, cough, hypoxia. Dyspnea with minimal exertion. +Sick contacts, grandchildren with coughs and fevers. She reports taking nebulizer treatments at home with no improvement in symptoms. Saturations at home reported to be in the low 80's with ambulation. Patient tested POSITIVE for influenza A Reports some nausea as well as diarrhea, decreased oral intake In the ER she was ill in appearance, tachypneic and tachycardic Principal Diagnosis Influenza Discharge Exam The patient is awake, alert and oriented 3, well developed and well nourished, normocephalic and atraumatic, lying in bed and in no acute distress. HEENT--PERRL, EOMI, mucous membranes and oropharynx mildly dry Neck--supple. No JVD. No bruits. Thyroid normal, trachea midline, no adenopathy. Heart--normal S1 and S2. No murmurs, rubs or gallops. Lungs--clear bilaterally, no respiratory distress, no accessory muscle use. Abdomen--normal bowel sounds and soft. Mild epigastric and left sided abdominal pain Extremities--no cyanosis or clubbing. No edema. Dermatologic--normal skin turgor, normal color, no abnormal lymph nodes, no rash. Neurologic--cranial nerves II through XII grossly intact. Rheumatologic--normal range of motion. Psychiatric--normal affect. Discharge Data Allergies Allergy/AdvReac Type Severity Reaction Status Date / Time aspirin AdvReac Intermediate GI SYMPTOMS Verified 05/14/22 00:33 Consultations 05/14/22 02:32 ED Decision to Admit Stat Hospital Course (1) Influenza A: 66yo female with one day of fever, worsening cough productive for yellow sputum and hypoxia. Patient found to be POSITIVE for influenza A. She is vaccinated. Presently saturating well on 3L NC - 95%. Prior COVID x 3, negative on admit Patient is clinically much improved following tamiflu, Incentive spirometry, fluttervalve, guaifenesin Still requiring oxygen will evaluate for home oxygen with 2 step (2) COPD (chronic obstructive pulmonary disease): Suspect acute exacerbation of COPD in setting of Influenza infection. Reported significant TAPIA w/ minimal exertion along w/ cough/sputum production and fever/chills at home Nebs, trelegy Hypertonic saline added 05/17 and improvement in clearance of sputum and will continue Continue added mucinex, increased to 1200mg BID - continue at d/c Continue incentive spirometer, added flutter valve scheduled and would continue Solumedrol converted to prednisone as above for today, taper at discharge sent Ceftriaxone for now, sputum cx light normal natalee on prelim -- consider d/c PO doxy at d/c to complete course for COPD exacerbation (3) Anxiety with depression: Chronic. Patient with increased anxiety in ER, improved with Ativan Continue Lexapro Ativan PRN at home dose -- refill requested for at discharge -- uses sparingly -- rx has been sent already for 7 tablets and discussed to f/u PCP (4) Acid reflux: reported improvement w/ pepcid yesterday but given reports of some mild symptoms persisting, placed on PPI BID (also checking stool given darkened color -- denied hx GI bleeding or ulcers) rx for PPI at d/c and can make daily if no evidence for bleeding on fecal occult which has been requested DVT proph- Lovenox SQ while inpatient Plan d/c home Total Time Total Time Spent Total Time Spent (In Minutes): 35 Discharge Plan Discharge Items Patient Disposition: Home - Self-Care Reason For Visit: INFLUENZA, COPD EXACERBATION Discharge Diagnosis: Influenza, COPD exacerbation Condition on Discharge: Fair Goals: You have been hospitalized for an acute medical problem. During your stay at [facility], we have made an effort to correct the problem that brought you to the hospital while keeping you as comfortable as possible. Medications were used to bring your condition under control and your discharge instructions will include directions for any medications you should take after leaving the hospital. Please make sure you see your Primary Care Provider as part of your follow up plan. Activity: Resume your previous activity Non-emergency contact: Primary Care Provider and Snailer Call non-emergency contact if: you have any medication questions, your symptoms worsen and you have a fever Follow-up/Referrals: [facility]tega MD, [facility] [Physician] - 05/31/22 10:30 am (PFT on 05/31 at 1030 am. follow up PFT 06/01 at 0930 am,then see at 1045 am) Roshan Crandall MD [Primary Care Provider] - 05/27/22 7:45 am Diet: Heart Healthy [facility] Attending Provider Instructions: You have been hospitalized with fever/chills, cough, sputum production and found to have evidence of a COPD exacerbation, likely caused by influenza virus. You have been treated with Tamiflu and will continue this twice daily for another 1 days (2 doses). You were also treated with steroids in the IV form, and this has been converted to prednisone and you will complete a taper at discharge. This will be 50mg for tomorrow, then decrease to 40mg x 2 days, then decrease to 30mg x 2 days, then 20mg x 2 days, then 10mg x 2 days to complete the taper. You have been sent in pantoprazole (protonix) as well to prevent any issues with reflux, as this can be worsened by steroids. Sputum culture was obtained during admission and was _negative . You are being continued on antibiotics in the form of __Doxicycline which will be for __5 more days to complete the course. You should continue Mucinex twice daily to help thin secretions and continue your usual inhalers. You should continue the incentive spirometer and flutter valve to help get the mucus out and help with breathing. Therapy evaluated you while you were in the hospital and have been determined to be stable for discharge. You should also follow up with pulmonology, Dr Ortega, after discharge. I spoke with him last evening while you were in the hospital and we have checked an EKG to monitor whether or not you would be a good candidate for azithromycin three times weekly for prevention of exacerbations, however he did not feel in acute setting with influenza that we should start these just yet. It also appears you will be due for screening CT chest which he will be able to arrange as an outpatient. It is strongly encouraged to continue discussions regarding CPAP and ability to use. Possibly if anxiety symptoms controlled you may tolerate this better. I did sent a short course of ativan to get you through until seen by your primary care provider but it is also important to possibly discuss visatril as needed for anxiety if you are not using a CPAP. Please ensure you are wearing your supplemental oxygen at night as well as during the day. You have been stable on your chronic 3 liters. You should follow up with your primary care provider in the next 7-10 days after discharge to monitor how you are doing. Please return to the ER with any worsening shortness of breath, chest pain, fevers, inability to keep up with oral intake, or for any other symptoms concerning for you. Take care! Pending Studies at Discharge: No Stand-Alone Forms: My [facility], Smoking Cessation Medications and DC Order Prescriptions: New benzonatate 100 mg Capsule 100 mg PO TID PRN (Reason: cough) Qty: 14 0RF guaifenesin [Mucinex] 600 mg Tablet Extended Release 12hr 1,200 mg PO Q12 Qty: 14 0RF prednisone 20 mg tablet See Rx Instructions .ROUTE .COMPLEX Qty: 13 0RF Rx Instructions: 50mg x 1 day, then decrease to 40mg x 2 days, then decrease to 30mg x 2 days, then decrease to 20mg x 2 days, then decrease to 10mg x 2 days to complete taper cyanocobalamin (vitamin B-12) 500 mcg Tablet 500 mcg PO QAM Qty: 30 0RF folic acid 1 mg Tablet 1 mg PO QAM Qty: 30 0RF sodium chloride 7 % Solution For Nebulization 4 ml NEB BIDR Qty: 120 0RF pantoprazole 40 mg Tablet,Delayed Release (Dr/Ec) 40 mg PO BID Qty: 60 0RF oseltamivir [Tamiflu] 75 mg capsule 75 mg PO BID 1 Days Qty: 2 0RF doxycycline monohydrate 100 mg capsule 100 mg PO BID 5 Days Qty: 10 0RF Continued Trelegy Ellipta 200-62.5-25 mcg blister with device 1 inh inhalation DAILY Qty: 60 5RF albuterol sulfate [ProAir HFA] 90 mcg/actuation HFA aerosol inhaler 2 puff Inhalation Q4 PRN (Reason: Shortness Of Breath Or Wheezing) Qty: 8.5 3RF (DME) CPAP Machine Misc See Rx Instructions .MEDSUPPLY Qty: 1 0RF Rx Instructions: Auto-titration CPAP with pressure range between 5 cm H2O and 15 cm H2O with humidification. Lifetime need. ipratropium-albuterol 0.5 mg-3 mg(2.5 mg base)/3 mL solution for nebulization 3 ml INH QID PRN (Reason: Shortness Of Breath) Qty: 360 5RF (DME) CPAP Supplies Misc See Rx Instructions .MEDSUPPLY Qty: 1 0RF Rx Instructions: Refitting of the mask. G47.33 ibuprofen 200 mg Tablet 400 mg PO Q6H PRN (Reason: Pain) escitalopram oxalate [Lexapro] 10 mg tablet 10 mg PO DAILY Qty: 30 0RF lorazepam 0.5 mg tablet 0.5 mg PO Q8H PRN (Reason: anxiety) Qty: 7 0RF Discharge Orders: Discharge Order (Routine); Ordered 05/20/22 Ordered By: Mikel Ga Admission Data Admit Date/Time: 05/14/22 02:53 Attending Provider: Mikel Ga Admit Provider: Stephanie Rodriguez Primary Care Provider: Roshan Crandall Other Providers: Stephanie Rodriguez Other Interventions: Discharge Summary Assessment (RN) Last Done: 05/20/22 12:13 Coding Level of Care Code HOSP INP/OBS DISCH >30 MIN Diagnoses Influenza A J10.1 COPD (chronic obstructive pulmonary disease) J44.9 COPD type: unspecified COPD Anxiety with depression F41.8 Acid reflux K21.9 Time Spent (min) 35
== END 2022-05-20 13:23 | disposition home or self-care (01) | DRG 194 ==
LOC: ED 23:57 → SUATTDRO 05-14 02:53 → EDINP 05-14 02:53 → 3W 05-14 04:28 → 3N 05-15 02:51
DX: J44.1 Chronic obstructive pulmonary disease with (acute) exacerbation; Z99.81 Dependence on supplemental oxygen; F41.9 Anxiety disorder, unspecified; Z87.891 Personal history of nicotine dependence; J10.1 Influenza due to other identified influenza virus with other respiratory manifestations; Z88.6 Allergy status to analgesic agent; Z99.89 Dependence on other enabling machines and devices; Z79.899 Other long term (current) drug therapy; F32.A Depression, unspecified; K21.9 Gastro-esophageal reflux disease without esophagitis

== ENCOUNTER 2022-08-05 16:27 | Inpatient (IN) ==
[2022-08-05] MEDS ORDERED: SODIUM CHLORIDE 0.9% 500 ML IV STA (17:13)
[2022-08-05] MEDS ORDERED: methylPREDNISolone 125 MG/2 ML VIAL IV STA (17:13)
[2022-08-05] MEDS ORDERED: ALBUT/IPRATROP 3MG/0.5MG NEB 3 ML VIAL INH STA (17:13)
--- NOTE | 2022-08-05 17:29 | Emergency Department Note ---
Impression & Plan SOB (shortness of breath), COPD exacerbation ED Provider Note INFORMANT: Patient ED PROVIDER(S): Jay Urrutia MD CHIEF COMPLAINT: Shortness of breath PLAN: Disposition: Admitted Condition: Good Outpatient prescription management: none Referral: None MEDICAL DECISION MAKING: Patient presented because of shortness of breath. She had increased work of breathing and was quite dyspneic. She has not had any relief with 2 nebulizer treatments at home today. She just finished prednisone yesterday. She was started on an hour-long breathing treatment. Blood work, EKG and chest x-ray performed. Patient was also given IV Solu-Medrol. Patient was reassessed and was feeling somewhat better after the hour-long breathing treatment. She still have feeling increased work of breathing. Chest x-ray did not reveal any acute findings. Chronic findings noted. Patient's CBC and chemistry panel were unremarkable. VBG does not show significant CO2 retention compared to prior. [facility] Case discussed and diagnostics were reviewed. Patient was evaluated in the ER admitted for further management. Discussed with conference center manager. After review of the information above and other included data, I feel the patient requires further management in the hospital. Triage Nursing notes reviewed and agree them. Vital Signs: reviewed and remarkable for tachycardia, hypertension and mild hypoxia Prior /Outside records reviewed: Pulmonary notes reviewed. Differential diagnosis: Reactive airway disease, pneumonia, pneumothorax, COPD, CHF, infections, cardiac ischemia, pulmonary embolism, musculoskeletal, gastrointestinal, as well as other pathologies. Diagnostics, as interpreted by me: ECG: Twelve-lead ECG reveals a normal sinus rhythm at [address] elevation or depression. No PACs or PVCs. Cardiac Monitoring: Cardiac monitoring ordered by me: The patient was placed on continuous cardiac monitoring and observed. It revealed a normal sinus rhythm at 95 beats per minute without ectopy or evidence of dysrhythmia. Medical decision rules: none Imaging studies: Chest x-ray reveals findings consistent with COPD but no evidence of pneumonia or pneumothorax. I refer you to the EMR for further details. HPI: The patient is a 66year old female who presents to the Emergency Room with complaints of shortness of breath. This started several days ago and is worsening. The patient also notes the following associated symptoms, mild cough, pressure in her chest. The patient has just finished prednisone for relieving factors. Current pain is rated as 0/10. Patient has history of COPD. She is on 3 L nasal cannula oxygen continuously. She also notes having influenza. She stated she was not doing well after the influenza. She had increasing shortness of breath last week and was seen by pulmonary. She was given nebulizer treatment and started on a 5-day course of prednisone. She just finished that yesterday. She felt like it did not help. Pt denies LOC, headache, fevers, chills, diaphoresis, visual changes, neck pain, chest pain, nausea, vomiting, abdominal pain, back pain, melena, hematochezia, urinary symptoms, numbness, weakness, lymphadenopathy, rash, or other complaints. PAST MEDICAL HISTORY: See Below, COPD PAST SURGICAL HISTORY: See Below, SOCIAL HISTORY: See Below, former smoker HOME MEDICATIONS: See Below ALLERGIES: See Below VITALS: See Below PHYSICAL EXAMINATION: GENERAL: Awake, alert, very distant-appearing, in no distress HENT: Normocephalic, atraumatic. Oropharynx unremarkable. EYES: Normal conjunctiva. Sclera non-icteric. NECK: Inspection normal. Non-tender. Supple. No nuchal rigidity. FROM. No masses. RESPIRATORY: Scattered wheezes. No rales. Increased respiratory effort. CARDIAC: Normal rate. Normal rhythm. No murmurs. No rubs. Extremities warm and well perfused. Pulses equal. No JVD. GI: Soft, non-distended. No tenderness to palpation. No rebound or guarding. No masses. MUSCULOSKELETAL: Atraumatic. Chest examination reveals no tenderness. The back is symmetrical on inspection without obvious abnormality. There is no CVA tenderness to palpation. No joint edema. LOWER EXTREMITIES: Calves are equal size bilaterally and non-tender. No edema. No discoloration. NEURO: Normal sensorium. No sensory or motor deficits noted. SKIN: No rash or jaundice noted. Past Med/Surg History Medical History Anxiety with depression Asthma Chronic obstructive pulmonary disease with hypoxia 3L NC PRN Pulm - [facility] [place] COPD exacerbation COVID Family history of colon cancer Sleep apnea, obstructive Yeast infection Surgical History H/O partial thyroidectomy 1990s d/t hemorrhaging?--unknown cause, no meds History of broken collarbone sx to repair History of carpal tunnel surgery of right wrist History of partial hysterectomy History of tooth extraction all teeth Family History Mother , from ovarian cancer Cancer Ovarian Sister Cancer Ovarian Father COPD (chronic obstructive pulmonary disease) Other No family history of adverse response to anesthesia Social History Smoking Status: Former smoker Tobacco Type: Cigarettes Age Started Using Tobacco: 17; Age Quit Using Tobacco: 64; packs per day: 1; Cigarettes Per Day: 20; Second Hand Exposure: No; Hx Alcohol Use: No Hx Substance Use: No Preferred Language: Welsh 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 Ability: Effective Spa Assistant Manager 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 Beliefs That Will Affect Care: Religion marital status: Current Living Situation: Family Current Living Situation Comment: Lives with daughter Virgen Feels Safe at Home: Yes Assistive Devices: Denture - Upper, Denture - Lower, Glasses, Nebulizer and Oxygen - Continuous Allergies Allergies Allergy/AdvReac Type Severity Reaction Status Date / Time aspirin AdvReac Intermediate GI SYMPTOMS Verified 08/05/22 17:35 Home Meds Home Medications Medication Instructions Recorded Confirmed ibuprofen 200 mg tablet 400 mg PO Q6H PRN Pain 12/17/21 08/05/22 escitalopram oxalate 10 mg tablet 10 mg PO QAM 08/05/22 08/05/22 (Lexapro) Previous Rx's Medication Instructions Recorded CPAP Machine #1 ea 12/06/19 CPAP Supplies #1 ea 05/11/21 fluticasone fur. 200 mcg-umeclid 1 inh inhalation DAILY #60 ea 11/24/21 62.5 mcg-vilant 25 mcg inhalat.powder (Trelegy Ellipta) ProAir HFA 90 mcg/actuation 2 puff inhalation Q4 PRN Shortness 11/27/21 aerosol inhaler (albuterol sulfate) Of Breath Or Wheezing #8.5 grams lorazepam 0.5 mg tablet 0.5 mg PO Q8H PRN anxiety #7 tabs 05/17/22 pantoprazole 40 mg tablet,delayed 40 mg PO BID #60 tabs 05/18/22 release ipratropium 0.5 mg-albuterol 3 mg 3 ml inhalation QID PRN Shortness 06/07/22 (2.5 mg base)/3 mL nebulization Of Breath #360 mL soln Results & Data (ED) Vital Signs Vital Signs - 24 hr 08/05/22 16:52 08/05/22 17:31 08/05/22 17:45 Temperature 37.5 C Temperature Source Oral Pulse Rate 101 H Pulse Rate [Apical] 91 H 79 Pulse Rhythm [Apical] Regular Pulse Strength [Apical] Normal Respiratory Rate 33 H 26 H Respiratory Effort / Characteristics Labored Spontaneous Pursed Lip Short of Breath Respiratory Depth Normal Blood Pressure 147/75 H Blood Pressure [Right Arm] 165/80 H Blood Pressure Mean 99 Blood Pressure Mean [Right Arm] 108 Blood Pressure Position [Right Arm] Semi-fowlers Pulse Oximetry 87 L 95 97 Oxygen Delivery Method Nasal Cannula Nasal Cannula Nasal Cannula Oxygen Flow Rate 2 3 3 Sepsis Recent Fever Within 48 Hours No Sepsis New/Unexplained Change in Mental Status No Sepsis Action Taken by Nursing No Action Required 08/05/22 17:44 08/05/22 18:37 08/05/22 19:08 Temperature Temperature Source Pulse Rate 83 Pulse Rate [Apical] Pulse Rhythm [Apical] Pulse Strength [Apical] Respiratory Rate Respiratory Effort / Characteristics Labored Respiratory Depth Blood Pressure Blood Pressure [Right Arm] Blood Pressure Mean Blood Pressure Mean [Right Arm] Blood Pressure Position [Right Arm] Pulse Oximetry 96 Oxygen Delivery Method Nasal Cannula Nasal Cannula Oxygen Flow Rate 3 3 Sepsis Recent Fever Within 48 Hours Sepsis New/Unexplained Change in Mental Status Sepsis Action Taken by Nursing Laboratory Data 08/05/22 17:19 08/05/22 17:13 Lab Results 08/05/22 08/05/22 08/05/22 Range/Units 17:13 17:13 17:17 WBC (4.8-10.8) K/ul RBC (4.20-5.40) M/uL Hgb (12.0-16.0) g/dl Hct (37.0-47.0) % MCV (80.0-100.0) fL MCH (25.0-34.0) pg MCHC (32.0-36.0) g/dL RDW Std Deviation (36.4-46.3) fL RDW Coeff of Audrey (11.5-14.5) % Plt Count (130-400) K/uL MPV (9.4-12.4) fL Immature Gran % (Auto) % Neut % (Auto) % Lymph % (Auto) % [place] % (Auto) % Eos % (Auto) % Baso % (Auto) % Neut # (Auto) (1.40-6.50) K/uL Lymph # (Auto) (1.2-3.4) K/uL [place] # (Auto) (0.11-0.59) K/uL Eos # (Auto) (0-0.50) K/uL Baso # (Auto) (0-0.2) K/uL Immature Gran # (Auto) (0.01-0.20) K/uL PT 10.0 (9.0-12.0) Seconds INR 0.9 (0.9-1.1) VBG pH (7.36-7.41) VBG pCO2 (38-50) mmHg VBG pO2 mmHg VBG HCO3 mmol/L VBG O2 Saturation % VBG Base Excess mEq/L Sodium 141 (136-145) mmol/L Potassium 3.3 L (3.5-5.1) mmol/L Chloride 103 (98-107) mmol/L Carbon Dioxide 29 (21-32) mmol/L Anion Gap 9 (3-11) BUN 18 (6-23) mg/dl Creatinine 0.92 (0.6-1.2) mg/dl Est Cr Clr Drug Dosing 56.0 ml/min Est GFR ( Amer) 74.7 ml/min Est GFR (Non-Af Amer) 64.4 ml/min BUN/Creatinine Ratio 19.6 (10-20) Glucose 98 (70-99(Fasting)) mg/dl Calcium 8.8 (8.6-10.3) mg/dl Magnesium 1.9 (1.7-2.4) mg/dl Total Bilirubin 0.4 (0.2-1.0) mg/dl AST 13 (13-39) U/L ALT 16 (7-52) U/L Alkaline Phosphatase 100 (34-104) U/L Troponin I High Sens 7.1 (0-14) pg/ml B-Natriuretic Peptide (0-100) pg/ml Total Protein 6.6 (6.0-8.3) gm/dl Albumin 4.1 (3.4-5.0) gm/dl Globulin 2.5 (2.5-4.0) gm/dl Albumin/Globulin Ratio 1.6 (0.9-2) Adenovirus (PCR) Not Detected (NotDetected) B. pertussis DNA (PCR) Not Detected (NotDetected) B.parapertussis DNA PCR Not Detected (NotDetected) C. pneumoniae DNA (PCR) Not Detected (NotDetected) Coronavirus OC43 (PCR) Not Detected (NotDetected) Coronavirus HKU1 (PCR) Not Detected (NotDetected) Coronavirus 229E (PCR) Not Detected (NotDetected) SARS-CoV-2 (PCR) Not Detected (NotDetected) Coronavirus NL63 (PCR) Not Detected (NotDetected) Human Metapneumovir PCR Not Detected (NotDetected) Influenza Type A (PCR) Not Detected (NotDetected) Influenza Type B (PCR) Not Detected (NotDetected) M. pneumoniae (PCR) Not Detected (NotDetected) Parainfluenza 1 (PCR) Not Detected (NotDetected) Parainfluenza 2 (PCR) Not Detected (NotDetected) Parainfluenza 3 (PCR) Not Detected (NotDetected) Parainfluenza 4 (PCR) Not Detected (NotDetected) RSV (PCR) Not Detected (NotDetected) Entero/Rhino (PCR) Not Detected (NotDetected) 08/05/22 08/05/22 08/05/22 Range/Units 17:19 17:50 17:50 WBC 16.40 H (4.8-10.8) K/ul RBC 4.46 (4.20-5.40) M/uL Hgb 13.3 (12.0-16.0) g/dl Hct 38.7 (37.0-47.0) % MCV 86.8 (80.0-100.0) fL MCH 29.8 (25.0-34.0) pg MCHC 34.4 (32.0-36.0) g/dL RDW Std Deviation 39.6 (36.4-46.3) fL RDW Coeff of Audrey 12.6 (11.5-14.5) % Plt Count 318 (130-400) K/uL MPV 9.2 L (9.4-12.4) fL Immature Gran % (Auto) 0.4 % Neut % (Auto) 79.9 % Lymph % (Auto) 10.9 % [place] % (Auto) 8.0 % Eos % (Auto) 0.4 % Baso % (Auto) 0.4 % Neut # (Auto) 13.12 H (1.40-6.50) K/uL Lymph # (Auto) 1.78 (1.2-3.4) K/uL [place] # (Auto) 1.31 H (0.11-0.59) K/uL Eos # (Auto) 0.06 (0-0.50) K/uL Baso # (Auto) 0.07 (0-0.2) K/uL Immature Gran # (Auto) 0.06 (0.01-0.20) K/uL PT (9.0-12.0) Seconds INR (0.9-1.1) VBG pH 7.35 L (7.36-7.41) VBG pCO2 52 H (38-50) mmHg VBG pO2 27 mmHg VBG HCO3 29 mmol/L VBG O2 Saturation < 60.0 % VBG Base Excess 2.1 mEq/L Sodium (136-145) mmol/L Potassium (3.5-5.1) mmol/L Chloride (98-107) mmol/L Carbon Dioxide (21-32) mmol/L Anion Gap (3-11) BUN (6-23) mg/dl Creatinine (0.6-1.2) mg/dl Est Cr Clr Drug Dosing ml/min Est GFR ( Amer) ml/min Est GFR (Non-Af Amer) ml/min BUN/Creatinine Ratio (10-20) Glucose (70-99(Fasting)) mg/dl Calcium (8.6-10.3) mg/dl Magnesium (1.7-2.4) mg/dl Total Bilirubin (0.2-1.0) mg/dl AST (13-39) U/L ALT (7-52) U/L Alkaline Phosphatase (34-104) U/L Troponin I High Sens (0-14) pg/ml B-Natriuretic Peptide 43 (0-100) pg/ml Total Protein (6.0-8.3) gm/dl Albumin (3.4-5.0) gm/dl Globulin (2.5-4.0) gm/dl Albumin/Globulin Ratio (0.9-2) Adenovirus (PCR) (NotDetected) B. pertussis DNA (PCR) (NotDetected) B.parapertussis DNA PCR (NotDetected) C. pneumoniae DNA (PCR) (NotDetected) Coronavirus OC43 (PCR) (NotDetected) Coronavirus HKU1 (PCR) (NotDetected) Coronavirus 229E (PCR) (NotDetected) SARS-CoV-2 (PCR) (NotDetected) Coronavirus NL63 (PCR) (NotDetected) Human Metapneumovir PCR (NotDetected) Influenza Type A (PCR) (NotDetected) Influenza Type B (PCR) (NotDetected) M. pneumoniae (PCR) (NotDetected) Parainfluenza 1 (PCR) (NotDetected) Parainfluenza 2 (PCR) (NotDetected) Parainfluenza 3 (PCR) (NotDetected) Parainfluenza 4 (PCR) (NotDetected) RSV (PCR) (NotDetected) Entero/Rhino (PCR) (NotDetected) Administered Medications Discontinued Medications Albuterol (Albut/Ipratrop 3mg/0.5mg Neb 3 Ml Vial) 12 ml INH ONE STA Stop: 08/05/22 17:14 Last Admin: 08/05/22 17:44 Dose: 12 ml Documented By: [id number] Sodium Chloride (Nss) 500 mls @ 999 mls/hr IV .Q31M STA Stop: 08/05/22 17:43 Last Infusion: 08/05/22 18:35 Dose: 0 mls/hr Documented By: Admin: 08/05/22 17:36 Dose: 999 mls/hr Documented By: AB Methylprednisolone (Methylprednisolone 125 Mg/2 Ml Vial) 125 mg IV NOW STA Stop: 08/05/22 17:14 Last Admin: 08/05/22 17:36 Dose: 125 mg Documented By: AB Imaging Data Radiologist's Impression: Chest X-Ray 08/05/22 17:13 XR chest 1V portable HISTORY: 66 years-old Female Dyspnea acute shortness of breath COMPARISON: 07/28/2022 TECHNIQUE: AP view of the chest FINDINGS: Emphysema with chronic interstitial coarsening. The cardiomediastinal and hilar silhouettes are within normal limits. No pneumothorax, large pleural effusion or lobar airspace consolidation. The bones of the chest appear grossly intact. IMPRESSION: 1. No acute processes of the chest. 2. Emphysema with chronic interstitial coarsening. ACT 112: Negative or not required by law. The above report was generated using voice recognition software. It may contain grammatical, syntax or spelling errors. Electronically signed by: Landon Lechuga M.D. 08/05/2022 6:09 PM Discharge Plan Visit Data Chief Complaint: Shortness of Breath/Dyspnea Stated Complaint: SOB, COUGH WITH PHLEM ED Provider: Jay Urrutia Discharge Problem: SOB (shortness of breath), COPD exacerbation Patient Disposition: Admitted As Inpatient Discharge Instructions Interventions: ED Discharge Assessment Last Done: 08/05/22 21:55
[2022-08-05 17:42] LABS: Basophils # (auto) 0.07 K/uL (0-0.2); Basophils % (auto) 0.4 %; Eosinophils # (auto) 0.06 K/uL (0-0.50); Eosinophils % (auto) 0.4 %; Hematocrit (blood only) 38.7 % (37.0-47.0); Hemoglobin 13.3 g/dl (12.0-16.0); Immature Granulocytes # (auto) 0.06 K/uL (0.01-0.20); Immature Granulocytes % (auto) 0.4 %; Lymphocytes # (auto) 1.78 K/uL (1.2-3.4); Lymphocytes % (auto) 10.9 %; Mean Corpuscular Hemoglobin 29.8 pg (25.0-34.0); Mean Corpuscular Hgb Conc 34.4 g/dL (32.0-36.0); Mean Corpuscular Volume 86.8 fL (80.0-100.0); Mean Platelet Volume 9.2 fL (9.4-12.4); Monocytes # (auto) 1.31 K/uL (0.11-0.59); Neutrophils # (auto) 13.12 K/uL (1.40-6.50); Neutrophils % (auto) 79.9 %; Platelet Count 318 K/uL (130-400); RDW Coefficient of Variation 12.6 % (11.5-14.5); RDW Standard Deviation 39.6 fL (36.4-46.3); Red Blood Count 4.46 M/uL (4.20-5.40)
[2022-08-05 18:10] LABS: Base Excess VBG 2.1 mEq/L; HCO3 VBG 29 mmol/L; Oxygen Saturation VBG < 60.0 %; PCO2 VBG 52 mmHg (38-50); PO2 VBG 27 mmHg; pH VBG 7.35 (7.36-7.41)
--- NOTE | 2022-08-05 18:10 | XRay Report ---
XR chest 1V portable HISTORY: 66 years-old Female Dyspnea acute shortness of breath COMPARISON: 07/28/2022 TECHNIQUE: AP view of the chest FINDINGS: Emphysema with chronic interstitial coarsening. The cardiomediastinal and hilar silhouettes are withi n normal limits. No pneumothorax, large pleural effusion or lobar airspace consolidation. The bones o f the chest appear grossly intact. IMPRESSION: 1. No acute processes of the chest. 2. Emphysema with chronic interstitial coarsening. ACT 112: Negative or not required by law. The above report was generated using voice recognition software. It may contain grammatical, syntax o r spelling errors. Electronically signed by: Landon Lechuga M.D. 08/05/2022 6:09 PM
[2022-08-05 18:11] LABS: Albumin Globulin Ratio 1.6 (0.9-2); Albumin Level 4.1 gm/dl (3.4-5.0); BUN Creatinine Ratio 19.6 (10-20); Bilirubin,Total 0.4 mg/dl (0.2-1.0); Calcium 8.8 mg/dl (8.6-10.3); Est GFR (African American) 74.7 ml/min; Est GFR (Non-African American) 64.4 ml/min; Globulin 2.5 gm/dl (2.5-4.0); Magnesium 1.9 mg/dl (1.7-2.4); Potassium 3.3 mmol/L (3.5-5.1); Total Protein 6.6 gm/dl (6.0-8.3)
[2022-08-05 18:15] LABS: Troponin I High Sensitivity 7.1 pg/ml (0-14)
[2022-08-05 18:23] LABS: INR 0.9 (0.9-1.1)
[2022-08-05 18:30] LABS: Adenovirus PCR Not Detected (NotDetected); Bordetella parapertussis PCR Not Detected (NotDetected); Bordetella pertussis PCR Not Detected (NotDetected); Chlamydia pneumoniae PCR Not Detected (NotDetected); Coronavirus 229E PCR Not Detected (NotDetected); Coronavirus CoV-2 (COVID19)PCR Not Detected (NotDetected); Coronavirus HKU1 PCR Not Detected (NotDetected); Coronavirus NL63 PCR Not Detected (NotDetected); Coronavirus OC43PCR Not Detected (NotDetected); Human Metapneumovirus PCR Not Detected (NotDetected); Influenza A PCR Not Detected (NotDetected); Influenza B PCR Not Detected (NotDetected); Mycoplasma pneumoniae PCR Not Detected (NotDetected); Parainfluenza Virus 1 PCR Not Detected (NotDetected); Parainfluenza Virus 2 PCR Not Detected (NotDetected); Parainfluenza Virus 3 PCR Not Detected (NotDetected); Parainfluenza Virus 4 PCR Not Detected (NotDetected); Respiratory Syncytial VirusPCR Not Detected (NotDetected); Rhinovirus/Enterovirus PCR Not Detected (NotDetected)
--- NOTE | 2022-08-05 20:25 | History & Physical Report ---
Date of Service August 05, 2022 Assessment & Plan (1) COPD exacerbation: Plan: 66yo female with severe COPD presenting with 1 week of progressive SOB. Suspect acute exacerbation of COPD. Patient with sick contact - family member with recent URI/sinus infection. -Admit to medical -Continue Trelegy or formulary equivalent -DuoNeb q 4 hours -Albuterol q2 hours PRN -Solumedrol 40mg IV TID -Doxycycline 200mg IV BID -Continue supplemental O2 - goal saturation 88-92% -Flutter valve QID -Mucines 600mg po BID -Mg 1gm IV given -Cetirizine 10mg po qAM initiated (2) Anxiety with depression: Plan: Chronic. Well controlled -Continue Escitalopram 10mg po qAM F/E/N - Heplock. Mild hypokalemia - K=3.3, 40mEq PO administered - repeat BMP in AM, Regular diet as tolerated Ppx - Low risk for DVT Code -Full per discussion with patient Dispo - Admit to medical History of Present Illness Chief Complaint: shortness of breath Primary Care Provider: Roshan Crandall MD Masha Mcneil is a 66yo female with severe COPD (FEV1 of 41% predicted on most recent PFTs 08/02/22) on home O2 therapy presenting with 1 week of progressive SOB, chest tightness or wheeze. Patient follows with Pulmonary. She recently completed a 5 day course of Prednisone which concluded 08/04/22. She presents with persistent and progressive SOB, wheeze and chest tightness. She also reports cough with increased amount of yellow/green sputum. She has been using her home inhalers and nebulizers with minimal improvement. Patient has remained on her usual 3L of [facility]. She reports some itchy/watery eyes. Otherwise denies sore throat, chest pain, abdominal pain, nausea, vomiting, diarrhea or constipation. Denies edema, weight gain or orthopnea. In the ER patient visibly tachypneic. ER Course: Albuterol 12mL Solumedrol NSS Allergies Allergy/AdvReac Type Severity Reaction Status Date / Time aspirin AdvReac Intermediate GI SYMPTOMS Verified 08/05/22 17:35 Home Medications Medication Instructions Recorded Confirmed Type CPAP Machine #1 ea 12/06/19 08/05/22 Rx CPAP Supplies #1 ea 05/11/21 08/05/22 Rx fluticasone fur. 200 mcg-umeclid 1 inh inhalation DAILY #60 ea 11/24/21 08/05/22 Rx 62.5 mcg-vilant 25 mcg inhalat.powder (Trelegy Ellipta) ProAir HFA 90 mcg/actuation 2 puff inhalation Q4 PRN Shortness 11/27/21 08/05/22 Rx aerosol inhaler (albuterol sulfate) Of Breath Or Wheezing #8.5 grams ibuprofen 200 mg tablet 400 mg PO Q6H PRN Pain 12/17/21 08/05/22 History lorazepam 0.5 mg tablet 0.5 mg PO Q8H PRN anxiety #7 tabs 05/17/22 08/05/22 Rx pantoprazole 40 mg tablet,delayed 40 mg PO BID #60 tabs 05/18/22 08/05/22 Rx release ipratropium 0.5 mg-albuterol 3 mg 3 ml inhalation QID PRN Shortness 06/07/22 08/05/22 Rx (2.5 mg base)/3 mL nebulization Of Breath #360 mL soln escitalopram oxalate 10 mg tablet 10 mg PO QAM 08/05/22 08/05/22 History (Lexapro) Past Med/Surg History Medical History Anxiety with depression Asthma Chronic obstructive pulmonary disease with hypoxia 3L NC PRN Pulm - Min [place] COPD exacerbation COVID Family history of colon cancer Sleep apnea, obstructive Yeast infection Surgical History H/O partial thyroidectomy 1990s d/t hemorrhaging?--unknown cause, no meds History of broken collarbone sx to repair History of carpal tunnel surgery of right wrist History of partial hysterectomy History of tooth extraction all teeth Family History Mother , from ovarian cancer Cancer Ovarian Sister Cancer Ovarian Father COPD (chronic obstructive pulmonary disease) Other No family history of adverse response to anesthesia Social History Smoking Status: Former smoker Tobacco Type: Cigarettes Age Started Using Tobacco: 17; Age Quit Using Tobacco: 64; packs per day: 1; Cigarettes Per Day: 20; Second Hand Exposure: No; Do You Dip or Chew Tobacco: No; Tobacco Cessation Education Requested by Patient: No Hx Alcohol Use: No Hx Substance Use: No Preferred Language: Khmer 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 Ability: Effective Bench Worker 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 Beliefs That Will Affect Care: None marital status: Current Living Situation: Family Current Living Situation Comment: Lives with daughter Virgen Other Information That Helps Us Care for You: No Feels Safe at Home: Yes Safety Concerns: Feels Safe At This Time Assistive Devices: Denture - Upper, Denture - Lower, Glasses and Oxygen - Continuous Review of Systems Review of Systems: All systems reviewed & are unremarkable except as noted in HPI & below Physical Exam Physical Exam: General: patient resting comfortably, NAD, non-toxic in appearance, AA&O x 4 Skin: warm, dry, intact, no rashes or lesions HEENT: NC/AT, PERRL, EOMI, anicteric sclera, conjunctiva without injection, external ear normal to inspection and nontender, nares patent, moist mucus membranes, dentition intact, no oropharyngeal lesions, neck supple, trachea midline, no LAD, no thyromegaly, no JVD Heart: +S1/S2, regular, no m/r/g Lungs: equal air entry bilaterally with diminished breath sounds, +tachypnea, focal wheeze right anterior lung field Abd: +BS, soft, NT/ND, no masses/organomegaly/ascites Ext: warm, 2+ pulses in UE/LE bilaterally, no clubbing/cyanosis or edema Neuro: nonfocal, patient AA&O x 4, speech intact, no facial droop, moving all extremities on command with equal strength 5/5 Results & Data Results & Data Vital Signs (Past 12 Hours) Vital Signs Temp Pulse Pulse Resp BP BP Pulse Ox 08/05/22 19:08 96 08/05/22 18:37 08/05/22 17:44 83 08/05/22 17:45 79 26 H 97 08/05/22 17:31 91 H 33 H 165/80 H 95 08/05/22 16:52 37.5 C 101 H 147/75 H 87 L O2 Del Method O2 Flow Rate 08/05/22 19:08 Nasal Cannula 3 08/05/22 18:37 Nasal Cannula 3 08/05/22 17:44 08/05/22 17:45 Nasal Cannula 3 08/05/22 17:31 Nasal Cannula 3 08/05/22 16:52 Nasal Cannula 2 Laboratory Results Laboratory Results WBC 16.40 K/ul (4.8-10.8) H 08/05/22 17:19 RBC 4.46 M/uL (4.20-5.40) 08/05/22 17:19 Hgb 13.3 g/dl (12.0-16.0) 08/05/22 17:19 Hct 38.7 % (37.0-47.0) 08/05/22 17:19 MCV 86.8 fL (80.0-100.0) 08/05/22 17:19 MCH 29.8 pg (25.0-34.0) 08/05/22 17: MCHC 34.4 g/dL (32.0-36.0) 08/05/22 17:19 RDW Std Deviation 39.6 fL (36.4-46.3) 08/05/22 17:19 RDW Coeff of Audrey 12.6 % (11.5-14.5) 08/05/22 17:19 Plt Count 318 K/uL (130-400) 08/05/22 17:19 MPV 9.2 fL (9.4-12.4) L 08/05/22 17:19 Immature Gran % (Auto) 0.4 % 08/05/22 17:19 Neut % (Auto) 79.9 % 08/05/22 17:19 Lymph % (Auto) 10.9 % 08/05/22 17:19 Eddy % (Auto) 8.0 % 08/05/22 17:19 Eos % (Auto) 0.4 % 08/05/22 17:19 Baso % (Auto) 0.4 % 08/05/22 17:19 Neut # (Auto) 13.12 K/uL (1.40-6.50) H 08/05/22 17:19 Lymph # (Auto) 1.78 K/uL (1.2-3.4) 08/05/22 17:19 Eddy # (Auto) 1.31 K/uL (0.11-0.59) H 08/05/22 17:19 Eos # (Auto) 0.06 K/uL (0-0.50) 08/05/22 17:19 Baso # (Auto) 0.07 K/uL (0-0.2) 08/05/22 17:19 Immature Gran # (Auto) 0.06 K/uL (0.01-0.20) 08/05/22 17:19 PT 10.0 Seconds (9.0-12.0) 08/05/22 17:13 INR 0.9 (0.9-1.1) 08/05/22 17:13 VBG pH 7.35 (7.36-7.41) L 08/05/22 17:50 VBG pCO2 52 mmHg (38-50) H 08/05/22 17:50 VBG pO2 27 mmHg 08/05/22 17:50 VBG HCO3 29 mmol/L 08/05/22 17:50 VBG O2 Saturation < 60.0 % 08/05/22 17:50 VBG Base Excess 2.1 mEq/L 08/05/22 17:50 Sodium 141 mmol/L (136-145) 08/05/22 17:13 Potassium 3.3 mmol/L (3.5-5.1) L 08/05/22 17:13 Chloride 103 mmol/L (98-107) 08/05/22 17:13 Carbon Dioxide 29 mmol/L (21-32) 08/05/22 17:13 Anion Gap 9 (3-11) 08/05/22 17:13 BUN 18 mg/dl (6-23) 08/05/22 17:13 Creatinine 0.92 mg/dl (0.6-1.2) 08/05/22 17:13 Est Cr Clr Drug Dosing 56.0 ml/min 08/05/22 17:13 Est GFR ( Amer) 74.7 ml/min 08/05/22 17:13 Est GFR (Non-Af Amer) 64.4 ml/min 08/05/22 17:13 BUN/Creatinine Ratio 19.6 (10-20) 08/05/22 17:13 Glucose 98 mg/dl (70-99(Fasting)) 08/05/22 17:13 Calcium 8.8 mg/dl (8.6-10.3) 08/05/22 17:13 Magnesium 1.9 mg/dl (1.7-2.4) 08/05/22 17:13 Total Bilirubin 0.4 mg/dl (0.2-1.0) 08/05/22 17:13 AST 13 U/L (13-39) 08/05/22 17:13 ALT 16 U/L (7-52) 08/05/22 17:13 Alkaline Phosphatase 100 U/L (34-104) 08/05/22 17:13 Troponin I High Sens 7.1 pg/ml (0-14) 08/05/22 17:13 B-Natriuretic Peptide 43 pg/ml (0-100) 08/05/22 17:50 Total Protein 6.6 gm/dl (6.0-8.3) 08/05/22 17:13 Albumin 4.1 gm/dl (3.4-5.0) 08/05/22 17:13 Globulin 2.5 gm/dl (2.5-4.0) 08/05/22 17:13 Albumin/Globulin Ratio 1.6 (0.9-2) 08/05/22 17:13 Adenovirus (PCR) Not Detected (NotDetected) 08/05/22 17:17 B. pertussis DNA (PCR) Not Detected (NotDetected) 08/05/22 17:17 B.parapertussis DNA PCR Not Detected (NotDetected) 08/05/22 17:17 C. pneumoniae DNA (PCR) Not Detected (NotDetected) 08/05/22 17:17 Coronavirus OC43 (PCR) Not Detected (NotDetected) 08/05/22 17:17 Coronavirus HKU1 (PCR) Not Detected (NotDetected) 08/05/22 17:17 Coronavirus 229E (PCR) Not Detected (NotDetected) 08/05/22 17:17 SARS-CoV-2 (PCR) Not Detected (NotDetected) 08/05/22 17:17 Coronavirus NL63 (PCR) Not Detected (NotDetected) 08/05/22 17:17 Human Metapneumovir PCR Not Detected (NotDetected) 08/05/22 17:17 Influenza Type A (PCR) Not Detected (NotDetected) 08/05/22 17:17 Influenza Type B (PCR) Not Detected (NotDetected) 08/05/22 17:17 M. pneumoniae (PCR) Not Detected (NotDetected) 08/05/22 17:17 Parainfluenza 1 (PCR) Not Detected (NotDetected) 08/05/22 17:17 Parainfluenza 2 (PCR) Not Detected (NotDetected) 08/05/22 17:17 Parainfluenza 3 (PCR) Not Detected (NotDetected) 08/05/22 17:17 Parainfluenza 4 (PCR) Not Detected (NotDetected) 08/05/22 17:17 RSV (PCR) Not Detected (NotDetected) 08/05/22 17:17 Entero/Rhino (PCR) Not Detected (NotDetected) 08/05/22 17:17 Impressions Chest X-Ray 08/05/22 17:13 XR chest 1V portable HISTORY: 66 years-old Female Dyspnea acute shortness of breath COMPARISON: 07/28/2022 TECHNIQUE: AP view of the chest FINDINGS: Emphysema with chronic interstitial coarsening. The cardiomediastinal and hilar silhouettes are within normal limits. No pneumothorax, large pleural effusion or lobar airspace consolidation. The bones of the chest appear grossly intact. IMPRESSION: 1. No acute processes of the chest. 2. Emphysema with chronic interstitial coarsening. ACT 112: Negative or not required by law. The above report was generated using voice recognition software. It may contain grammatical, syntax or spelling errors. Electronically signed by: Landon Lechuga M.D. 08/05/2022 6:09 PM PG Care Time/CCT Total # of Minutes Spent Total Time Spent with Patient: Total time spent is greater than 50% in coordination of care (as documented) at patient's floor/unit and/or counseling patient: Coding Level of Care Code 58960 INT INP/OBS CARE 2/55MIN Diagnoses COPD exacerbation J44.1 Anxiety with depression F41.8
[2022-08-05] MEDS ORDERED: POTASSIUM CHLORIDE CRTAB 20 MEQ TABCR PO STA (21:59)
[2022-08-05] MEDS ORDERED: ALBUTEROL 0.083% NEBU SOLN 3 ML VIAL NEB PRN (21:59)
[2022-08-05] MEDS ORDERED: ACETAMINOPHEN 325 MG TAB PO PRN (21:59)
[2022-08-05] MEDS ORDERED: MAGNESIUM SULFATE / D5W 1 GM/100 ML BAG IV ONE (21:59)
[2022-08-05] MEDS: ALBUT/IPRATROP 3MG/0.5MG NEB 3 ML VIAL NEB SCH (22:32)
[2022-08-05] MEDS: PANTOprazole 40 MG TAB PO SCH (22:44)
[2022-08-05] MEDS: methylPREDNISolone 40 MG in SYRINGE 0 ML IV SCH (22:45)
[2022-08-05] MEDS: DOXYCYCLINE HYCLATE 100 MG in DEXTROSE 5% 100 ML IV SCH (22:45)
[2022-08-05] MEDS: LORazepam 0.5 MG TAB PO PRN (23:08)
[2022-08-06 00:05] LABS: Potassium 3.5 mmol/L (3.5-5.1)
[2022-08-06 00:10] LABS: Phosphorus 3.2 mg/dl (2.5-4.9)
[2022-08-06] MEDS ORDERED: PNEUMOCOCCAL Polysaccharide Vaccine 25mcg/0.5mL vial/Syr IM ONE (00:15)
[2022-08-06] MEDS: ALBUT/IPRATROP 3MG/0.5MG NEB 3 ML VIAL NEB SCH ×6 (02:06→22:36)
[2022-08-06 07:35] LABS: Hemoglobin 12.2 g/dl (12.0-16.0); Mean Corpuscular Hemoglobin 30.3 pg (25.0-34.0); Mean Corpuscular Hgb Conc 33.9 g/dL (32.0-36.0); Mean Corpuscular Volume 89.3 fL (80.0-100.0); Mean Platelet Volume 9.3 fL (9.4-12.4); Platelet Count 298 K/uL (130-400); RDW Coefficient of Variation 12.6 % (11.5-14.5); RDW Standard Deviation 41.3 fL (36.4-46.3); Red Blood Count 4.03 M/uL (4.20-5.40); White Blood Count 11.93 K/ul (4.8-10.8)
[2022-08-06 07:43] LABS: BUN Creatinine Ratio 19.1 (10-20); Calcium 8.5 mg/dl (8.6-10.3); Creatinine Clr Calc Pharmacy 57.1 ml/min; Est GFR (African American) 77.7 ml/min; Est GFR (Non-African American) 67.1 ml/min; Potassium 5.3 mmol/L (3.5-5.1)
[2022-08-06] MEDS: guaiFENesin 600 MG TABCR PO SCH ×2 (07:49→22:03)
[2022-08-06] MEDS: PANTOprazole 40 MG TAB PO SCH ×2 (07:49→22:03)
[2022-08-06] MEDS: CETIRIZINE HCL 10 MG TABLET PO SCH (07:50)
[2022-08-06] MEDS: ESCITALOPRAM OXALATE 10 MG TAB PO SCH (07:50)
[2022-08-06] MEDS: UMECLIDINIUM/VILANTEROL 62.5/25MCG 7 PUFFS/INHALER INH SCH (07:50)
[2022-08-06] MEDS: FLUTICASONE FUROATE 200MCG 14 PUFFS/INHALER INH SCH (07:51)
[2022-08-06] MEDS: methylPREDNISolone 40 MG in SYRINGE 0 ML IV SCH ×3 (07:51→20:59)
--- NOTE | 2022-08-06 08:38 | Hospitalist Progress Note ---
Date of Service August 06, 2022 Assessment & Plan (1) COPD exacerbation: Plan: 66yo female with severe COPD presenting with 1 week of progressive SOB. Suspect acute exacerbation of COPD. Patient with sick contact - family member with recent URI/sinus infection. COPD Exacerbation -Pt w/ approximately 27pack-year hx smoking. Quit smoking 3 years ago per pulm notes. -Had PFTs completed 08/02 -Continue Trelegy or formulary equivalent -DuoNeb q 4 hours -Albuterol q2 hours PRN -Solumedrol 40mg IV TID -Doxycycline 200mg IV BID -Continue supplemental O2 - goal saturation 88-92% -Flutter valve QID -Mucines 600mg po BID -Mg 1gm IV given -Cetirizine 10mg po qAM initiated on admission Anxiety with depression: Chronic. Well controlled -Continue Escitalopram 10mg po qAM F/E/N - Heplock. Mild hypokalemia - K=3.3, 40mEq PO administered - repeat BMP in AM, Regular diet as tolerated Ppx - Low risk for DVT Code -Full per discussion with patient Dispo - Admit to medical (2) Anxiety with depression: (3) History of tobacco use: Admission and Anticipated Discharge Date Admission Date: August 05, 2022 Supervising Physician Co-Signing Physician Notes I personally examined the patient and verified all herzog points of history and exam, discussed case, and agree with decision making and plan documented by Dr. Qureshi. Patient with severe COPD on chronic 3L NC. Patient states she completed 5 day prednisone course from pulmonology 08/04/22 prior to admission but symptoms continued to worsen. No acute process on CXR, respiratory viral panel negative. She reports improvement of symptoms. Will monitor closely. Subjective Patient seen and evaluated at bedside this morning. No acute events reported overnight. States that symptoms are definitely improving since being admitted. Still w/ some SOB, improving. No CP. No lightheadedness/dizziness. No n/v. No edema. Review of Systems Review of Systems: See HPI Physical Exam Physical Exam: GENERAL: Resting comfortably in bed. No acute distress. Well developed and well nourished. Vital signs reviewed as above. EYES: EOMI. Anicteric sclerae. HENT: Moist mucous membranes. RESPIRATORY: Good air movement bilaterally. + expiratory wheezing. No increased respiratory effort. CARDIOVASCULAR: Regular rate and rhythm. No murmurs. No JVD. ABDOMEN: Soft, non-tender and non-distended. Normal bowel sounds. EXTREMITIES: No gross deformities. No edema. Non-tender. SKIN: Warm, dry. NEUROLOGIC: A/O x3. Normal speech. No focal neurological deficits. PSYCHIATRIC: Cooperative. Appropriate mood and affect. Results & Data Results & Data Vital Signs (Past 12 Hours) Vital Signs Temp Pulse Pulse Pulse Resp BP BP 08/06/22 07:33 80 20 08/06/22 07:12 36.5 C 79 18 138/75 08/05/22 22:10 107 H 24 08/05/22 22:22 100 H 20 08/05/22 22:04 08/05/22 22:04 36.2 C L 111 H 22 164/71 H 08/05/22 21:55 95 H 18 156/87 H Pulse Ox O2 Del Method O2 Flow Rate 08/06/22 07:33 95 Nasal Cannula 3 08/06/22 07:12 94 Nasal Cannula 3 08/05/22 22:10 93 Nasal Cannula 3 08/05/22 22:22 95 Nasal Cannula 3 08/05/22 22:04 Nasal Cannula 3 08/05/22 22:04 94 Nasal Cannula 3 08/05/22 21:55 98 Room Air Laboratory Results 08/06/22 08/06/22 08/05/22 Range/Units 06:53 06:53 22:26 WBC 11.93 H (4.8-10.8) K/ul RBC 4.03 L (4.20-5.40) M/uL Hgb 12.2 (12.0-16.0) g/dl Hct 36.0 L (37.0-47.0) % MCV 89.3 (80.0-100.0) fL MCH 30.3 (25.0-34.0) pg MCHC 33.9 (32.0-36.0) g/dL RDW Std Deviation 41.3 (36.4-46.3) fL RDW Coeff of Audrey 12.6 (11.5-14.5) % Plt Count 298 (130-400) K/uL MPV 9.3 L (9.4-12.4) fL Sodium 140 (136-145) mmol/L Potassium 5.3 H D 3.5 (3.5-5.1) mmol/L Chloride 107 (98-107) mmol/L Carbon Dioxide 28 (21-32) mmol/L Anion Gap 5 (3-11) BUN 17 (6-23) mg/dl Creatinine 0.89 (0.6-1.2) mg/dl Est Cr Clr Drug Dosing 57.1 ml/min Est GFR ( Amer) 77.7 ml/min Est GFR (Non-Af Amer) 67.1 ml/min BUN/Creatinine Ratio 19.1 (10-20) Glucose 165 H (70-99(Fasting)) mg/dl Calcium 8.5 L (8.6-10.3) mg/dl Phosphorus 3.2 (2.5-4.9) mg/dl Resident Activity Tracking Resident Involvement: Resident Care Provided Care Provided: Adult Hospital Medicine
[2022-08-06] MEDS ORDERED: NON-FORMULARY MEDICATION (Fluticasone-Umeclidin-Vilanter [Trelegy Ellipta] 200-62.5-25 mcg INH SCH (09:00)
[2022-08-06] MEDS: DOXYCYCLINE HYCLATE 100 MG in DEXTROSE 5% 100 ML IV SCH ×2 (10:11→21:00)
--- NOTE | 2022-08-06 18:00 | Electrocardiogram Report ---
Test Reason : Blood Pressure : / mmHG Vent. Rate : 090 BPM Atrial Rate : 090 BPM P-R Int : 154 ms QRS Dur : 072 ms QT Int : 352 ms P-R-T Axes : 074 073 074 degrees QTc Int : 430 ms Poor data quality, interpretation may be adversely affected Normal sinus rhythm Nonspecific T wave abnormality Abnormal ECG When compared with ECG of 06-JUL-2022 16:37, No significant change was found Confirmed by Arthur Pack ([id number]) on 08/06/2022 6:00:23 PM Referred By: REFERRED SELF Confirmed By:Glenroy Pack
[2022-08-06 20:09] LABS: BUN Creatinine Ratio 20.3 (10-20); Calcium 8.4 mg/dl (8.6-10.3); Creatinine Clr Calc Pharmacy 43.1 ml/min; Est GFR (African American) 55.3 ml/min; Est GFR (Non-African American) 47.7 ml/min; Potassium 4.4 mmol/L (3.5-5.1)
[2022-08-07] MEDS: ALBUT/IPRATROP 3MG/0.5MG NEB 3 ML VIAL NEB SCH ×5 (02:53→19:17)
[2022-08-07 07:16] LABS: BUN Creatinine Ratio 26.3 (10-20); Calcium 8.3 mg/dl (8.6-10.3); Creatinine Clr Calc Pharmacy 51.4 ml/min; Est GFR (African American) 68.3 ml/min; Hematocrit (blood only) 35.3 % (37.0-47.0); Hemoglobin 12.1 g/dl (12.0-16.0); Mean Corpuscular Hgb Conc 34.3 g/dL (32.0-36.0); Mean Corpuscular Volume 87.6 fL (80.0-100.0); Mean Platelet Volume 9.3 fL (9.4-12.4); Platelet Count 328 K/uL (130-400); Potassium 4.5 mmol/L (3.5-5.1); RDW Coefficient of Variation 12.7 % (11.5-14.5); RDW Standard Deviation 40.7 fL (36.4-46.3); Red Blood Count 4.03 M/uL (4.20-5.40)
--- NOTE | 2022-08-07 07:41 | Discharge Summary ---
Date of Service August 07, 2022 Admission HPI Per Admitting Provider Masha Mcneil is a 66yo female with severe COPD (FEV1 of 41% predicted on most recent PFTs 08/02/22) on home O2 therapy presenting with 1 week of progressive SOB, chest tightness or wheeze. Patient follows with Pulmonary. She recently completed a 5 day course of Prednisone which concluded 08/04/22. She presents with persistent and progressive SOB, wheeze and chest tightness. She also reports cough with increased amount of yellow/green sputum. She has been using her home inhalers and nebulizers with minimal improvement. Patient has remained on her usual 3L of O2 by [facility]. She reports some itchy/watery eyes. Otherwise denies sore throat, chest pain, abdominal pain, nausea, vomiting, diarrhea or constipation. Denies edema, weight gain or orthopnea. In the ER patient visibly tachypneic. ER Course: Albuterol 12mL Solumedrol NSS Admission Exam Per Admitting Provider General: patient resting comfortably, NAD, non-toxic in appearance, AA&O x 4 Skin: warm, dry, intact, no rashes or lesions HEENT: NC/AT, PERRL, EOMI, anicteric sclera, conjunctiva without injection, external ear normal to inspection and nontender, nares patent, moist mucus membranes, dentition intact, no oropharyngeal lesions, neck supple, trachea midline, no LAD, no thyromegaly, no JVD Heart: +S1/S2, regular, no m/r/g Lungs: equal air entry bilaterally with diminished breath sounds, +tachypnea, focal wheeze right anterior lung field Abd: +BS, soft, NT/ND, no masses/organomegaly/ascites Ext: warm, 2+ pulses in UE/LE bilaterally, no clubbing/cyanosis or edema Neuro: nonfocal, patient AA&O x 4, speech intact, no facial droop, moving all extremities on command with equal strength 5/5 Principal Diagnosis acute exacerbation of COPD, GOLD Class D Discharge Exam General: []-year old [] who is alert, oriented, and is in []. HEENT: NCAT. - Eyes - Sclera are white, anicteric, and without injection. - Mouth - MMM - Neck - supple, no appreciable JVD Cardiac: [] rate and [] rhythm; S1 and S2 present with [] murmur detected Pulmonary: Good respiratory effort with symmetric expansion of the chest. No use of accessory muscles. Lungs were [] Abdominal: Normoactive bowel sounds. Abdomen was soft, nondistended, and non- tender to palpation. Extremities: Upper and lower extremities are warm and well perfused. [] peripheral edema in the lower extremities bilaterally Discharge Data Allergies Allergy/AdvReac Type Severity Reaction Status Date / Time aspirin AdvReac Intermediate GI SYMPTOMS Verified 08/05/22 17:35 Consultations 08/05/22 20:17 ED Decision to Admit Stat Hospital Course (1) COPD exacerbation: 66yo female with severe COPD presenting with 1 week of progressive SOB secondary to acute exacerbation of COPD (Class D), likely from community-acquired URI Acute Exacerbation of COPD (Gold Class D) Chronic Respiratory Failure with Baseline 2-4L O2 Requirement -Pt w/ approximately 27pack-year hx smoking, quit 3 years ago -Treated aggressively with DuoNebs, SoluMedrol, doxycycline and pulmonary toilet -Continue Trelegy or formulary equivalent -Continue supplemental O2 - goal saturation 88-92% -Cetirizine 10mg po qAM initiated on admission -Will require outpatient pulmonology follow-up Anxiety with depression: Chronic. Well controlled -Continue Escitalopram 10mg po qAM F/E/N - Heplock. Mild hypokalemia - K=3.3, 40mEq PO administered - repeat BMP in AM, Regular diet as tolerated Ppx - Low risk for DVT Code -Full per discussion with patient Dispo - Admit to medical (2) Anxiety with depression: (3) History of tobacco use: Discharge Plan Discharge Items Reason For Visit: PROGRESSIVE SOB, COPD EXACERBATION Follow-up/Referrals: Roshan Crandall MD [Primary Care Provider] - Medications and DC Order Prescriptions: No Action Trelegy Ellipta 200-62.5-25 mcg blister with device 1 inh inhalation DAILY Qty: 60 5RF ipratropium-albuterol 0.5 mg-3 mg(2.5 mg base)/3 mL solution for nebulization 3 ml INH QID PRN (Reason: Shortness Of Breath) Qty: 360 5RF albuterol sulfate [ProAir HFA] 90 mcg/actuation HFA aerosol inhaler 2 puff Inhalation Q4 PRN (Reason: Shortness Of Breath Or Wheezing) Qty: 8.5 3RF (DME) CPAP Machine Misc See Rx Instructions .MEDSUPPLY Qty: 1 0RF Rx Instructions: Auto-titration CPAP with pressure range between 5 cm H2O and 15 cm H2O with humidification. Lifetime need. (DME) CPAP Supplies Misc See Rx Instructions .MEDSUPPLY Qty: 1 0RF Rx Instructions: Refitting of the mask. G47.33 ibuprofen 200 mg Tablet 400 mg PO Q6H PRN (Reason: Pain) lorazepam 0.5 mg tablet 0.5 mg PO Q8H PRN (Reason: anxiety) Qty: 7 0RF pantoprazole 40 mg Tablet,Delayed Release (Dr/Ec) 40 mg PO BID Qty: 60 0RF Rx Instructions: pt states she needs a new prescription for this med escitalopram oxalate [Lexapro] 10 mg tablet 10 mg PO QAM Admission Data Admit Date/Time: 08/05/22 20:25 Attending Provider: Kandice Keating Admit Provider: Stephanie Rodriguez Primary Care Provider: Roshan Crandall Other Providers: Stephanie Rodriguez
[2022-08-07 07:51] LABS: Basophils # (auto) 0.01 K/uL (0-0.2); Basophils % (auto) 0.1 %; Immature Granulocytes # (auto) 0.21 K/uL (0.01-0.20); Immature Granulocytes % (auto) 1.1 %; Lymphocytes # (auto) 0.65 K/uL (1.2-3.4); Lymphocytes % (auto) 3.5 %; Monocytes # (auto) 0.59 K/uL (0.11-0.59); Monocytes % (auto) 3.2 %; Neutrophils # (auto) 16.94 K/uL (1.40-6.50); Neutrophils % (auto) 92.1 %
--- NOTE | 2022-08-07 08:36 | Hospitalist Progress Note ---
Date of Service August 07, 2022 Assessment & Plan (1) COPD exacerbation: Plan: 66-year-old female with history of COPD Class D who presented to [facility] with worsening dyspnea and cough, found to be in an acute exacerbation of her COPD. COPD Exacerbation (Gold Class D) - Pt w/ approximately 27pack-year hx smoking. Quit smoking 3 years ago. - Had PFTs completed 08/02 - Continue Trelegy - Change DuoNeb to q6h, Albuterol q2 PRN - Transition to prednisone and doxycycline PO from IOV - Aggressive mucociliary clearance: Flutter valves, Mucinex, ceterizine - Continue supplemental O2 - goal saturation 88-92% Leukocytosis - PMN-predominant leukocytosis in the setting of ongoing high-dose steroid treatment for COPD exacerbation - Strongly suspect steroid-induced demargination - Monitor respiratory function. CXR, PCT, ESR/CRP if worsening. Anxiety with depression: - Chronic. Well controlled - Continue Escitalopram 10mg po qAM F/E/N - Regular Ppx - Add Lovenox 40 q24 Code - Full Dispo - Admit to medical (2) Anxiety with depression: (3) History of tobacco use: Admission and Anticipated Discharge Date Admission Date: August 05, 2022 Subjective This morning was rough. Had an exacerbation where she felt like she was wheezing and it was difficult to breathe. Otherwise reports feeling ok s/p DuoNebs - which helped a lot. Denies pain. Eating well. Granddaughter at bedside, no concerns at this time. Review of Systems Review of Systems: as per HPI Physical Exam Physical Exam: General:66yoF with NC in place, NAD. HEENT: NCAT. - Eyes - Sclera are white, anicteric, and without injection. - Mouth - MMM - Neck - supple, no appreciable JVD Cardiac: Fast rate and normal rhythm; S1 and S2 present with no murmur detected Pulmonary: Good respiratory effort with symmetric expansion of the chest. No use of accessory muscles. Lungs were CTAB, no significant wheezing at this time - though lung sounds diminished. Abdominal: Normoactive bowel sounds. Abdomen was soft, nondistended, and non- tender to palpation. Extremities: Upper and lower extremities are warm and well perfused. No peripheral edema in the lower extremities bilaterally Results & Data Results & Data Vital Signs (Past 12 Hours) Vital Signs Temp Pulse Resp BP Pulse Ox O2 Del Method O2 Flow Rate 08/07/22 07:45 Nasal Cannula 3 08/07/22 07:26 36.8 C 107 H 18 155/74 H 94 Nasal Cannula 3 08/07/22 07:16 113 H 20 90 Nasal Cannula 3 08/06/22 22:36 96 H 18 93 Nasal Cannula 3 08/06/22 21:38 Nasal Cannula 3 08/06/22 21:08 36.5 C 78 18 136/78 94 Nasal Cannula 3 Resident Activity Tracking Resident Involvement: Resident Care Provided Care Provided: Adult Hospital Medicine
[2022-08-07] MEDS: UMECLIDINIUM/VILANTEROL 62.5/25MCG 7 PUFFS/INHALER INH SCH (08:55)
[2022-08-07] MEDS: FLUTICASONE FUROATE 200MCG 14 PUFFS/INHALER INH SCH (08:55)
[2022-08-07] MEDS: guaiFENesin 600 MG TABCR PO SCH ×2 (08:55→20:22)
[2022-08-07] MEDS: PANTOprazole 40 MG TAB PO SCH ×2 (08:55→20:22)
[2022-08-07] MEDS: ENOXAPARIN INJ 40 MG/0.4 ML SYR SQ SCH (09:03)
[2022-08-07] MEDS: DOXYCYCLINE HYCLATE 100 MG CAP PO SCH ×2 (09:03→20:22)
[2022-08-07] MEDS: predniSONE 20 MG TAB PO SCH (09:03)
[2022-08-07] MEDS: ESCITALOPRAM OXALATE 10 MG TAB PO SCH (10:29)
[2022-08-07] MEDS: CETIRIZINE HCL 10 MG TABLET PO SCH (10:29)
[2022-08-07] MEDS: LORazepam 0.5 MG TAB PO PRN (16:10)
--- NOTE | 2022-08-07 17:37 | 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 Note ---
Date of Service: August 07, 2022 I personally examined the patient and verified all herzog points of history and exam, discussed case, and agree with decision making and plan documented by Dr. Crandall. Patient states symptoms are improving in addition to improvement of leukocytosis. Patient remains on 3 L (average home 2 to 4 L) with saturations in mid to upper 90s. At present she remains on prednisone and doxycycline. Will reevaluate tomorrow for possible discharge.
[2022-08-08] MEDS: ALBUT/IPRATROP 3MG/0.5MG NEB 3 ML VIAL NEB SCH ×6 (00:52→22:42)
[2022-08-08] MEDS: LORazepam 0.5 MG TAB PO PRN ×2 (04:40→20:04)
--- NOTE | 2022-08-08 06:48 | Hospitalist Progress Note ---
Date of Service August 08, 2022 Assessment & Plan (1) COPD exacerbation: Plan: 66-year-old female with history of COPD Class D who presented to [facility] with worsening dyspnea and cough, found to be in an acute exacerbation of her COPD. COPD Exacerbation (Gold Class D) - Pt w/ approximately [id number] hx smoking. Quit smoking 3 years ago. - Had PFTs completed 08/02 - Continue Trelegy - Change DuoNeb to q4h, Albuterol q2 PRN - Prednisone and doxycycline PO for 5 day course (end dates set in chart) - Aggressive mucociliary clearance: Flutter valves, Mucinex 1200 bid, cetirizine - Would likely benefit from azithromycin MWF at this point and repeat pulmonary rehab. Will continue outpatient discussions (Dr. Crandall PCP), will also need close pulmonology outpatient f/u -- had to cancel last appointment in August due to transportation issues. Will put in consult for nurse navigation - greatly appreciated. - Repeat 2-view CXR without development of acute processes. - Continue supplemental O2 - goal saturation 88-92% Leukocytosis - PMN-predominant leukocytosis in the setting of ongoing high-dose steroid treatment for COPD exacerbation - Strongly suspect steroid-induced demargination - Monitor respiratory function. CXR, PCT, ESR/CRP if worsening. Anxiety with depression: - Chronic. Well controlled - Continue Escitalopram 10mg po qAM F/E/N - Regular Ppx - Add Lovenox 40 q24 Code - Full Dispo - Admit to medical (2) Anxiety with depression: (3) History of tobacco use: Admission and Anticipated Discharge Date Admission Date: August 05, 2022 Supervising Physician Co-Signing Physician Notes I personally examined the patient and verified all herzog points of history and exam, discussed case, and agree with decision making and plan documented by Dr. Crandall. Patient continues to have shortness of breath and mucus production, states that breathing is somewhat improved but not quite ready to go home today. Scheduled DuoNebs were increased in frequency today, guaifenesin dose increased, she remains on prednisone and doxycycline in addition to her daily COPD home regimen (Arnuity Ellipta and Anoro Ellipta). Thankfully oxygen saturations remained stable in mid 90s on 3 L which is her baseline. Anticipate discharge tomorrow with clinical improvement. Subjective Breathing treatment overnight. Otherwise doing OK this AM - breathing improved. Just really tired. No CP/palpitations. Appetite fine, no n/v. No joint pains, new muscle aches. No chills or sweats. Feeling about 60% improved - but feeling 'stalled' at this point. Review of Systems Review of Systems: as per HPI Physical Exam Physical Exam: General:66yoF with NC in place, NAD. HEENT: NCAT. - Eyes - Sclera are white, anicteric, and without injection. - Mouth - MMM - Neck - supple, no appreciable JVD Cardiac: Fast rate and normal rhythm; S1 and S2 present with no murmur detected Pulmonary: Good respiratory effort with symmetric expansion of the chest. No use of accessory muscles. Lungs were CTAB, no significant wheezing at this time - though lung sounds diminished. Abdominal: Normoactive bowel sounds. Abdomen was soft, nondistended, and non- tender to palpation. Extremities: Upper and lower extremities are warm and well perfused. No peripheral edema in the lower extremities bilaterally Results & Data Results & Data Vital Signs (Past 12 Hours) Vital Signs Temp Pulse Resp BP Pulse Ox O2 Del Method O2 Flow Rate 08/08/22 04:50 85 18 96 Nasal Cannula 3 08/08/22 00:53 70 16 97 Nasal Cannula 3 08/07/22 22:00 Nasal Cannula 3 08/07/22 20:21 36.7 C 87 16 146/76 H 95 Nasal Cannula 3 08/07/22 19:17 90 17 96 Nasal Cannula 3 Resident Activity Tracking Resident Involvement: Resident Care Provided Care Provided: Adult Hospital Medicine
[2022-08-08 07:17] LABS: Basophils # (auto) 0.02 K/uL (0-0.2); Basophils % (auto) 0.2 %; Eosinophils # (auto) 0.02 K/uL (0-0.50); Eosinophils % (auto) 0.2 %; Hematocrit (blood only) 33.6 % (37.0-47.0); Hemoglobin 11.4 g/dl (12.0-16.0); Immature Granulocytes # (auto) 0.18 K/uL (0.01-0.20); Immature Granulocytes % (auto) 1.5 %; Lymphocytes # (auto) 1.59 K/uL (1.2-3.4); Lymphocytes % (auto) 13.6 %; Mean Corpuscular Hemoglobin 29.8 pg (25.0-34.0); Mean Corpuscular Hgb Conc 33.9 g/dL (32.0-36.0); Mean Platelet Volume 9.4 fL (9.4-12.4); Monocytes # (auto) 0.81 K/uL (0.11-0.59); Monocytes % (auto) 6.9 %; Neutrophils # (auto) 9.04 K/uL (1.40-6.50); Neutrophils % (auto) 77.6 %; Platelet Count 281 K/uL (130-400); RDW Coefficient of Variation 12.9 % (11.5-14.5); RDW Standard Deviation 41.3 fL (36.4-46.3); Red Blood Count 3.82 M/uL (4.20-5.40); White Blood Count 11.66 K/ul (4.8-10.8)
[2022-08-08 07:52] LABS: BUN Creatinine Ratio 34.1 (10-20); Calcium 8.1 mg/dl (8.6-10.3); Creatinine Clr Calc Pharmacy 55.9 ml/min; Est GFR (African American) 75.7 ml/min; Est GFR (Non-African American) 65.3 ml/min
[2022-08-08] MEDS: guaiFENesin 600 MG TABCR PO SCH ×2 (07:59→19:59)
[2022-08-08] MEDS: UMECLIDINIUM/VILANTEROL 62.5/25MCG 7 PUFFS/INHALER INH SCH (07:59)
[2022-08-08] MEDS: DOXYCYCLINE HYCLATE 100 MG CAP PO SCH ×2 (07:59→19:59)
[2022-08-08] MEDS: FLUTICASONE FUROATE 200MCG 14 PUFFS/INHALER INH SCH (07:59)
[2022-08-08] MEDS: ESCITALOPRAM OXALATE 10 MG TAB PO SCH (08:00)
[2022-08-08] MEDS: PANTOprazole 40 MG TAB PO SCH ×2 (08:00→19:59)
[2022-08-08] MEDS: CETIRIZINE HCL 10 MG TABLET PO SCH (08:00)
[2022-08-08] MEDS: ENOXAPARIN INJ 40 MG/0.4 ML SYR SQ SCH (08:01)
[2022-08-08] MEDS: predniSONE 20 MG TAB PO SCH (08:01)
[2022-08-08] MEDS ORDERED: guaiFENesin 600 MG TABCR PO ONE (08:45)
--- NOTE | 2022-08-08 09:23 | XRay Report ---
XR chest 2V PA/lateral HISTORY: 66 years-old Female COPD, worsening SOB, leukocytosis acute on chronic shortness of breath COMPARISON: Chest radiograph 08/05/2022, CTA chest 07/06/2022. TECHNIQUE: PA and lateral views of the chest FINDINGS: Cardiomediastinal and hilar silhouettes are within normal limits. Emphysema with chronic interstitial coarsening. There is no pneumothorax, pleural effusion, airspace consolidation or overt pulmonary ed dmitry. Degenerative changes of the shoulders and spine. IMPRESSION: 1. No acute process of the chest. 2. Emphysema with chronic interstitial coarsening. ACT 112: Negative or not required by law. The above report was generated using voice recognition software. It may contain grammatical, syntax o r spelling errors. Electronically signed by: Landon Lechuga M.D. 08/08/2022 9:22 AM
[2022-08-08] MEDS ORDERED: FLUCONAZOLE 50 MG TAB PO ONE (13:25)
[2022-08-08] MEDS ORDERED: MAGNESIUM OXIDE 400 MG TAB PO SCH (21:00)
[2022-08-09] MEDS: ALBUT/IPRATROP 3MG/0.5MG NEB 3 ML VIAL NEB SCH ×3 (03:29→10:42)
[2022-08-09] MEDS: FLUTICASONE FUROATE 200MCG 14 PUFFS/INHALER INH SCH (08:27)
[2022-08-09] MEDS: UMECLIDINIUM/VILANTEROL 62.5/25MCG 7 PUFFS/INHALER INH SCH (08:27)
[2022-08-09] MEDS: PANTOprazole 40 MG TAB PO SCH (08:28)
[2022-08-09] MEDS: ESCITALOPRAM OXALATE 10 MG TAB PO SCH (08:28)
[2022-08-09] MEDS: CETIRIZINE HCL 10 MG TABLET PO SCH (08:28)
[2022-08-09] MEDS: predniSONE 20 MG TAB PO SCH (08:28)
[2022-08-09] MEDS: guaiFENesin 600 MG TABCR PO SCH (08:28)
[2022-08-09] MEDS: ENOXAPARIN INJ 40 MG/0.4 ML SYR SQ SCH (08:29)
[2022-08-09] MEDS: DOXYCYCLINE HYCLATE 100 MG CAP PO SCH (08:29)
--- NOTE | 2022-08-09 09:24 | Discharge Summary ---
Date of Service August 09, 2022 Admission HPI Per Admitting Provider Masha Mcneil is a 66yo female with severe COPD (FEV1 of 41% predicted on most recent PFTs 08/02/22) on home O2 therapy presenting with 1 week of progressive SOB, chest tightness or wheeze. Patient follows with Pulmonary. She recently completed a 5 day course of Prednisone which concluded 08/04/22. She presents with persistent and progressive SOB, wheeze and chest tightness. She also reports cough with increased amount of yellow/green sputum. She has been using her home inhalers and nebulizers with minimal improvement. Patient has remained on her usual 3L of O2 by NC. She reports some itchy/watery eyes. Otherwise denies sore throat, chest pain, abdominal pain, nausea, vomiting, diarrhea or constipation. Denies edema, weight gain or orthopnea. In the ER patient visibly tachypneic. ER Course: Albuterol 12mL Solumedrol NSS Admission Exam Per Admitting Provider General: patient resting comfortably, NAD, non-toxic in appearance, AA&O x 4 Skin: warm, dry, intact, no rashes or lesions HEENT: NC/AT, PERRL, EOMI, anicteric sclera, conjunctiva without injection, external ear normal to inspection and nontender, nares patent, moist mucus membranes, dentition intact, no oropharyngeal lesions, neck supple, trachea midline, no LAD, no thyromegaly, no JVD Heart: +S1/S2, regular, no m/r/g Lungs: equal air entry bilaterally with diminished breath sounds, +tachypnea, focal wheeze right anterior lung field Abd: +BS, soft, NT/ND, no masses/organomegaly/ascites Ext: warm, 2+ pulses in UE/LE bilaterally, no clubbing/cyanosis or edema Neuro: nonfocal, patient AA&O x 4, speech intact, no facial droop, moving all extremities on command with equal strength 5/5 Principal Diagnosis COPD exacerbation Discharge Exam General:66yoF with NC in place, NAD. HEENT: NCAT. - Eyes - Sclera are white, anicteric, and without injection. - Mouth - MMM - Neck - supple, no appreciable JVD Cardiac: Fast rate and normal rhythm; S1 and S2 present with no murmur detected Pulmonary: Good respiratory effort with symmetric expansion of the chest. No use of accessory muscles. Lungs were CTAB, no significant wheezing at this time - though lung sounds diminished. Abdominal: Normoactive bowel sounds. Abdomen was soft, nondistended, and non- tender to palpation. Extremities: Upper and lower extremities are warm and well perfused. No peripheral edema in the lower extremities bilaterally Discharge Data Allergies Allergy/AdvReac Type Severity Reaction Status Date / Time aspirin AdvReac Intermediate GI SYMPTOMS Verified 08/05/22 17:35 Consultations 08/05/22 20:17 ED Decision to Admit Stat 08/08/22 09:40 Consult [facility] Routine Hospital Course (1) COPD exacerbation: 66-year-old female with history of COPD Class D who presented to [facility] with worsening dyspnea and cough, found to be in an acute exacerbation of her COPD. COPD Exacerbation (Gold Class D) - Pt w/ approximately [id number] hx smoking. Quit smoking 3 years ago. - Had PFTs completed 08/02 - Continue Trelegy - Change DuoNeb to q4h, Albuterol q2 PRN - Prednisone and doxycycline PO for 5 day course- will d/c with prednisone taper. Doxycycline completed in hospital. - Aggressive mucociliary clearance: Flutter valves, Mucinex 1200 bid, cetirizine- continue on d/c - Would likely benefit from azithromycin MWF at this point and repeat pulmonary rehab. Will continue outpatient discussions (Dr. Crandall PCP), will also need close pulmonology outpatient f/u -- had to cancel last appointment in August due to transportation issues. Will put in consult for nurse navigation - greatly appreciated. - Repeat 2-view CXR without development of acute processes. - At baseline 3L O2 by time of discharge Leukocytosis - PMN-predominant leukocytosis in the setting of ongoing high-dose steroid treatment for COPD exacerbation - Strongly suspect steroid-induced demargination Anxiety with depression: - Chronic. Well controlled - Continue Escitalopram 10mg po qAM (2) Anxiety with depression: (3) History of tobacco use: Total Time Total Time Spent Total Time Spent (In Minutes): <30 Discharge Plan Discharge Items Patient Disposition: Home - Self-Care Reason For Visit: PROGRESSIVE SOB, COPD EXACERBATION Discharge Diagnosis: COPD exacerbation Activity: Resume your previous activity Non-emergency contact: Primary Care Provider and [employer] Call non-emergency contact if: your symptoms worsen Follow-up/Referrals: Kitty Oretga MD, FCCP [Physician] - 08/17/22 9:00 am (Please arrive 15 minutes prior to appointment) Roshan Crandall MD [Primary Care Provider] - 08/20/22 10:25 am Diet: Regular Addtl Attending Provider Instructions: You were seen in [facility] for evaluation of a COPD exacerbation. At this time, we suspect that the COPD exacerbation was a result of a viral illness that you acquired from your home setting. Thankfully, you slowlybut persistentlydemonstrated improvements with regards to your breathing treatments, steroids, and antibiotics that you are given. Upon your discharge, will be critical to follow-up with your pulmonology provider. We have messaged our nurse navigation team internally to help you arrange an appointment. If you do not hear back within the next week, please follow-up with Dr. Crandall's office to engage their help. As you and him have discussed in the office before, it may be worth considering pulmonary rehabilitation to help improve your respiratory function, and hopefully decrease exacerbations. Frequent follow-up with [place] pulmonology will also be import ant to discuss next steps as it regards to pulmonary denervation and/or lung transplant. One of the most important things that we can do to prevent COPD exacerbations is monitoring and avoiding triggers that have caused him in the past. For instance, viral illnesses seem to be a frequent culprit of COPD exacerbations for you. Therefore, you may wish to consider wearing a mask when around others who are sick or may have the potential to be sick (such as young kids). Frequent handwashing and good personal hygiene is also critical. Allergies for some people can also be a source of COPD exacerbation; you were started on an antihistamine allergy medication, Zyrtec, while here. This may be something you wish to continue in the outpatient setting if you are finding that allergies are a trigger for your COPD. Upon discharge, please note the following medication additions/changes/deletions: Prednisone. Please take prednisone 30 mg (1.5 tabs) for 2 days, then 20 mg (1 tab) for 2 days, then 10 mg (0.5 tab) for 2 days. If you are feeling continuously or worsening short of breath over the days following her discharge, please remember that you can use your DuoNeb's at home to relieve shortness of breath as needed. You may use these every 4-6 hours. Please follow-up with Dr. Crandall within the next 1 to 2 weeks to review this visit. In the interim, if you are finding that you are having worsening fevers, chills, shortness of breath, coughing, increased sputum production, nausea, vomiting, generalized weakness, or persistent oxygen saturations below 88%, please report back to the ER immediately for evaluation. Is a pleasure for caring for you while here and we wish you all the best in your recovery. Pending Studies at Discharge: No Stand-Alone Forms: My [facility] Medications and DC Order Prescriptions: New prednisone 20 mg tablet 20 mg PO DAILY Qty: 6 0RF Continued Trelegy Ellipta 200-62.5-25 mcg blister with device 1 inh inhalation DAILY Qty: 60 5RF ipratropium-albuterol 0.5 mg-3 mg(2.5 mg base)/3 mL solution for nebulization 3 ml INH QID PRN (Reason: Shortness Of Breath) Qty: 360 5RF albuterol sulfate [ProAir HFA] 90 mcg/actuation HFA aerosol inhaler 2 puff Inhalation Q4 PRN (Reason: Shortness Of Breath Or Wheezing) Qty: 8.5 3RF (DME) CPAP Machine Misc See Rx Instructions .MEDSUPPLY Qty: 1 0RF Rx Instructions: Auto-titration CPAP with pressure range between 5 cm H2O and 15 cm H2O with humidification. Lifetime need. (DME) CPAP Supplies Misc See Rx Instructions .MEDSUPPLY Qty: 1 0RF Rx Instructions: Refitting of the mask. G47.33 ibuprofen 200 mg Tablet 400 mg PO Q6H PRN (Reason: Pain) lorazepam 0.5 mg tablet 0.5 mg PO Q8H PRN (Reason: anxiety) Qty: 7 0RF pantoprazole 40 mg Tablet,Delayed Release (Dr/Ec) 40 mg PO BID Qty: 60 0RF Rx Instructions: pt states she needs a new prescription for this med escitalopram oxalate [Lexapro] 10 mg tablet 10 mg PO QAM Discharge Orders: Discharge Order (Routine); Ordered 08/09/22 Ordered By: Jake Rinaldi Admission Data Admit Date/Time: 08/05/22 20:25 Attending Provider: Roshan Ordonez Admit Provider: Stephanie Rodriguez Primary Care Provider: Roshan Crandall. Other Providers: Stephanie Rodriguez Other Interventions: Discharge Summary Assessment (RN) Last Done: 08/09/22 11:02 Supervising Physician Co-Signing Physician Notes I personally examined the patient and verified all herzog points of history and exam, discussed case, and agree with decision making with Dr Rinaldi Feeling up to going home, although admittedly still fairly short of breath. Got a bit of a desaturation, although did respond just with nasal cannula, time, and rest. Discussed current treatment plan, discussed staying in the hospital for longer largely for closer observation versus going home, and after time, in discussion, and discussion with family, patient decided to go home. Vitals noted, in general she appears a bit anxious, breathing mildly labored. Lungs are markedly diminished throughout although no rales rhonchi or wheezes good ef fort. COPD exacerbation superimposed on what appears to be fairly severe, chronically O2 dependent COPDwith chronic hypoxic respiratory failureunfortunately anticipate a very slow road back to her baseline, in discussing this, I offered to keep her in the hospital longer if she felt safe for with medical supervision/medical backup, discussed if she were to have dyspnea or desaturation at home, turning up her oxygen for a little while and utilizing nebulizerand then if she was not able to improve her oxygen saturations to 88 or higher, or if the dyspnea did not resolvewithin 15 minutes we would want her back to the hospital. After considerations, she opted to go home, which seemed reasonable. Unfortunately appears to have quite severe COPD. Finish out a course of steroids. outpatient follow up. otherwise as above Resident Activity Tracking Resident Involvement: Resident Care Provided Care Provided: Adult Hospital Medicine
--- NOTE | 2022-08-09 18:32 | Billing Data ---
Date of Service August 09, 2022 Coding Level of Care Code 82780 IN/OBS DISCH 30 MIN/LESS
== END 2022-08-09 13:24 | disposition home or self-care (01) | DRG 192 ==
LOC: ED 16:27 → SUATTDRO 20:25 → 3N 20:25

== ENCOUNTER 2022-08-14 10:27 | Inpatient (IN) ==
[2022-08-14] MEDS ORDERED: ASPIRIN CHEW 324 MG PO STA (11:10)
[2022-08-14] MEDS ORDERED: methylPREDNISolone 125 MG/2 ML VIAL IV STA (11:10)
[2022-08-14] MEDS ORDERED: ALBUT/IPRATROP 3MG/0.5MG NEB 3 ML VIAL NEB STA ×3 (11:10→12:59)
[2022-08-14 11:31] LABS: Basophils # (auto) 0.03 K/uL (0-0.2); Basophils % (auto) 0.2 %; Eosinophils # (auto) 0.15 K/uL (0-0.50); Eosinophils % (auto) 0.8 %; Hematocrit (blood only) 37.1 % (37.0-47.0); Hemoglobin 12.5 g/dl (12.0-16.0); Immature Granulocytes # (auto) 0.17 K/uL (0.01-0.20); Immature Granulocytes % (auto) 0.9 %; Lymphocytes # (auto) 1.27 K/uL (1.2-3.4); Mean Corpuscular Hgb Conc 33.7 g/dL (32.0-36.0); Mean Corpuscular Volume 89.2 fL (80.0-100.0); Mean Platelet Volume 9.4 fL (9.4-12.4); Monocytes # (auto) 1.16 K/uL (0.11-0.59); Monocytes % (auto) 6.4 %; Neutrophils # (auto) 15.42 K/uL (1.40-6.50); Neutrophils % (auto) 84.7 %; Platelet Count 262 K/uL (130-400); RDW Standard Deviation 42.4 fL (36.4-46.3); Red Blood Count 4.16 M/uL (4.20-5.40)
[2022-08-14 11:48] LABS: Anion Gap 3 (3-11); BUN Creatinine Ratio 24.1 (10-20); Blood Urea Nitrogen 19 mg/dl (6-23); Calcium 8.2 mg/dl (8.6-10.3); Carbon Dioxide 30 mmol/L (21-32); Chloride 107 mmol/L (98-107); Est GFR (African American) 89.8 ml/min; Est GFR (Non-African American) 77.5 ml/min; Glucose 87 mg/dl (70-99(Fasting)); Lipase 19 U/L (11-82); Sodium 140 mmol/L (136-145)
[2022-08-14 11:59] LABS: Base Excess VBG 10.1 mEq/L; HCO3 VBG 37 mmol/L; Oxygen Saturation VBG < 60.0 %; PCO2 VBG 55 mmHg (38-50); PO2 VBG 26 mmHg; pH VBG 7.43 (7.36-7.41)
[2022-08-14 12:01] LABS: INR 0.9 (0.9-1.1); Partial Thromboplastin Ratio 0.8; Partial Thromboplastin Time 22.5 Seconds (21.0-31.0); Prothrombin Time 9.5 Seconds (9.0-12.0)
--- NOTE | 2022-08-14 12:02 | Emergency Department Note ---
History of Present Illness General Chief Complaint: Illness Stated Complaint: LOW O2, INFECTION, SOB Time Seen by Provider: 08/14/22 10:56 History of Present Illness Provider Complaint: shortness of breath, cough and "asthma attack" Onset (ago): day(s) (2) Consistency/Duration: + progressively worsening Maximum Pain Intensity: 10 Relieved By: + oxygen and + rest Exacerbated By: + exertion and + coughing Context: no recent travel Known history of: COPD Associated symptoms: + chest pain, + cough and + wheezing Home Medications Medication Instructions Recorded Confirmed Type CPAP Machine #1 ea 12/06/19 08/10/22 Rx CPAP Supplies #1 ea 05/11/21 08/10/22 Rx fluticasone fur. 200 mcg-umeclid 1 inh inhalation DAILY #60 ea 11/24/21 08/10/22 Rx 62.5 mcg-vilant 25 mcg inhalat.powder (Trelegy Ellipta) ProAir HFA 90 mcg/actuation 2 puff inhalation Q4 PRN Shortness 11/27/21 08/10/22 Rx aerosol inhaler (albuterol sulfate) Of Breath Or Wheezing #8.5 grams ibuprofen 200 mg tablet 400 mg PO Q6H PRN Pain 12/17/21 08/10/22 History lorazepam 0.5 mg tablet 0.5 mg PO Q8H PRN anxiety #7 tabs 05/17/22 08/10/22 Rx pantoprazole 40 mg tablet,delayed 40 mg PO BID #60 tabs 05/18/22 08/10/22 Rx release ipratropium 0.5 mg-albuterol 3 mg 3 ml inhalation QID PRN Shortness 06/07/22 08/10/22 Rx (2.5 mg base)/3 mL nebulization Of Breath #360 mL soln escitalopram oxalate 10 mg tablet 10 mg PO QAM 08/05/22 08/10/22 History (Lexapro) prednisone 20 mg tablet 20 mg PO DAILY #6 tabs 08/09/22 08/10/22 Rx Allergies Allergy/AdvReac Type Severity Reaction Status Date / Time aspirin AdvReac Intermediate GI SYMPTOMS Verified 08/05/22 17:35 Past Med/Surg History Medical History Anxiety with depression Asthma Chronic obstructive pulmonary disease with hypoxia 3L NC PRN Pulm - Min [place] COPD exacerbation COVID Family history of colon cancer Sleep apnea, obstructive Yeast infection Surgical History H/O partial thyroidectomy 1990s d/t hemorrhaging?--unknown cause, no meds History of broken collarbone sx to repair History of carpal tunnel surgery of right wrist History of partial hysterectomy History of tooth extraction all teeth Family History Mother , from ovarian cancer Cancer Ovarian Sister Cancer Ovarian Father COPD (chronic obstructive pulmonary disease) Other No family history of adverse response to anesthesia Social History Smoking Status: Former smoker Tobacco Type: Cigarettes Age Started Using Tobacco: 17; Age Quit Using Tobacco: 64; packs per day: 1; Cigarettes Per Day: 20; Second Hand Exposure: No; Do You Dip or Chew Tobacco: No; Hx Alcohol Use: No Hx Substance Use: No Preferred Language: Luxembourgish 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 Ability: Effective Public Welfare Director 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 Beliefs That Will Affect Care: None marital status: Current Living Situation: Family Current Living Situation Comment: Lives with daughter Virgen Feels Safe at Home: Yes Assistive Devices: Oxygen - Continuous Physical Exam Vital Signs: Vital Signs - 24 hr 08/14/22 10:46 08/14/22 11:00 08/14/22 10:58 Temperature 36.6 C Temperature Source Temporal Artery Sc an Pulse Rate 89 93 H Pulse Rate from Sp O2 Sensor 93 H Respiratory Rate 20 30 H Respiratory Effort / Characteristics Non-Labored Sponta neous Respiratory Depth Normal Blood Pressure 150/81 H Blood Pressure Kallie n 104 Blood Pressure Pos ition Sitting Pulse Oximetry 94 95 Oxygen Delivery Me thod Nasal Cannula Nasal Cannula Nasal Cannula Oxygen Flow Rate 3 3 3 Sepsis Recent Feve r Within 48 Hours No Sepsis New/Unexpla ined Change in Men elizabeth Status No Sepsis Action Take n by Nursing No Action Required 08/14/22 11:00 08/14/22 11:28 08/14/22 11:28 Temperature Temperature Source Pulse Rate 86 86 Pulse Rate from Sp O2 Sensor 86 86 Respiratory Rate 39 H 34 H Respiratory Effort / Characteristics Respiratory Depth Blood Pressure 158/76 H Blood Pressure Kallie n 103 Blood Pressure Pos ition Pulse Oximetry 96 91 Oxygen Delivery Me thod Nasal Cannula Nebulizer Oxygen Flow Rate 3 8 Sepsis Recent Feve r Within 48 Hours Sepsis New/Unexpla ined Change in Men elizabeth Status Sepsis Action Take n by Nursing 08/14/22 11:59 08/14/22 11:30 08/14/22 12:00 Temperature Temperature Source Pulse Rate 84 105 H Pulse Rate from Sp O2 Sensor 88 Respiratory Rate 27 H Respiratory Effort / Characteristics Respiratory Depth Blood Pressure 140/73 Blood Pressure Kallie n 95 Blood Pressure Pos ition Pulse Oximetry 93 Oxygen Delivery Me thod Nebulizer Oxygen Flow Rate Sepsis Recent Feve r Within 48 Hours Sepsis New/Unexpla ined Change in Men elizabeth Status Sepsis Action Take n by Nursing 08/14/22 12:00 08/14/22 12:30 08/14/22 13:00 Temperature Temperature Source Pulse Rate 81 81 Pulse Rate from Sp O2 Sensor 81 80 Respiratory Rate 22 25 H Respiratory Effort / Characteristics Respiratory Depth Blood Pressure 134/97 Blood Pressure Kallie n 109 Blood Pressure Pos ition Pulse Oximetry 97 96 Oxygen Delivery Me thod Nasal Cannula Nasal Cannula Oxygen Flow Rate 3 3 Sepsis Recent Feve r Within 48 Hours Sepsis New/Unexpla ined Change in Men elizabeth Status Sepsis Action Take n by Nursing 08/14/22 13:00 08/14/22 13:30 08/14/22 14:00 Temperature Temperature Source Pulse Rate 95 H 82 Pulse Rate from Sp O2 Sensor 82 82 Respiratory Rate 28 H 27 H Respiratory Effort / Characteristics Respiratory Depth Blood Pressure 138/71 Blood Pressure Kallie n 93 Blood Pressure Pos ition Pulse Oximetry 96 95 Oxygen Delivery Me thod Nasal Cannula Nasal Cannula Oxygen Flow Rate 3 3 Sepsis Recent Feve r Within 48 Hours Sepsis New/Unexpla ined Change in Men elizabeth Status Sepsis Action Take n by Nursing 08/14/22 14:00 08/14/22 14:30 08/14/22 15:00 Temperature Temperature Source Pulse Rate 83 84 Pulse Rate from Sp O2 Sensor 84 84 Respiratory Rate 28 H 23 Respiratory Effort / Characteristics Respiratory Depth Blood Pressure 136/83 Blood Pressure Kallie n 100 Blood Pressure Pos ition Pulse Oximetry 94 93 Oxygen Delivery Me thod Nasal Cannula Nasal Cannula Oxygen Flow Rate 3 3 Sepsis Recent Feve r Within 48 Hours Sepsis New/Unexpla ined Change in Men elizabeth Status Sepsis Action Take n by Nursing 08/14/22 15:00 Temperature Temperature Source Pulse Rate 79 Pulse Rate from Sp O2 Sensor 80 Respiratory Rate 29 H Respiratory Effort / Characteristics Respiratory Depth Blood Pressure Blood Pressure Kallie n Blood Pressure Pos ition Pulse Oximetry 94 Oxygen Delivery Me thod Nasal Cannula Oxygen Flow Rate 3 Sepsis Recent Feve r Within 48 Hours Sepsis New/Unexpla ined Change in Men elizabeth Status Sepsis Action Take n by Nursing Physical Exam: Physical Exam GENERAL: oriented to person, place, and time. appears well-developed and well- nourished. HENT: Exam performed. - Head: Normocephalic and atraumatic. EYES: Conjunctivae and EOM are normal. Right eye exhibits no discharge. Left eye exhibits no discharge. No scleral icterus. NECK: Normal range of motion. Neck supple. No JVD present. CV: Normal rate, regular rhythm, normal heart sounds and intact distal pulses. There is no peripheral edema. Palpable radial pulses bue. PULM/CHEST: Expiratory wheezes bilaterally. NEURO: Motor and sensation grossly intact. SKIN: Skin is warm and dry. He is not diaphoretic. PSYCH: normal mood and affect. Behavior is normal. Judgment and thought content normal. Course Course 1056: The patient was evaluated in room A10. A complete history and physical exam was performed Cardiac monitoring: An order was placed for continuous cardiac monitoring. The monitor shows a rate of 90 with sinus rhythm interpreted by me 1300: Vital signs stable on supplemental oxygen. Lungs are clear to auscultation status post 2 DuoNeb's. Patient reports she still feels shortness of breath although she states her chest pain has resolved. Labs show leukocytosis of 18.2 however the patient has been on steroids. VBG within normal limits venous pH 7.438 venous PCO2 55. Troponin and BNP negative. Chest x-ray shows no infiltrate. Patient was given the option of discharge with steroids and follow-up pulmonology and PCP or inpatient observation the patient states she prefers to be admitted to the hospital [facility]. [facility] hospitalist team will be contacted. Administered Medications Discontinued Medications Albuterol (Albut/Ipratrop 3mg/0.5mg Neb 3 Ml Vial) 3 ml NEB NOW STA; Protocol Stop: 08/14/22 11:11 Last Admin: 08/14/22 11:23 Dose: 3 ml Documented By: BUDDY Albuterol (Albut/Ipratrop 3mg/0.5mg Neb 3 Ml Vial) 3 ml NEB NOW STA; Protocol Stop: 08/14/22 11:19 Last Admin: 08/14/22 11:23 Dose: 3 ml Documented By: BUDDY Albuterol (Albut/Ipratrop 3mg/0.5mg Neb 3 Ml Vial) 3 ml NEB NOW STA; Protocol Stop: 08/14/22 13:00 Last Admin: 08/14/22 13:25 Dose: 3 ml Documented By: BUDDY Aspirin (Aspirin Chew 324 Mg) 324 mg PO NOW STA Stop: 08/14/22 11:11 Last Admin: 08/14/22 11:22 Dose: 324 mg Documented By: BUDDY Methylprednisolone (Methylprednisolone 125 Mg/2 Ml Vial) 125 mg IV NOW STA Stop: 08/14/22 11:11 Last Admin: 08/14/22 11:20 Dose: 125 mg Documented By: BUDDY Medical Decision Making Medical Records Attestation: I reviewed the patient's medical records. External medical records reviewed. This is patient's third emergency department visit for similar symptoms over the last 6 weeks. Patient was recently admitted to the hospital from August 05 August 09, 2022. Patient was discharged with a prednisone taper and was given a full dose of doxycycline in the emergency department. Patient was started on azithromycin Tuesday in the emergency department. Laboratory Data Attestation: I reviewed the patient's lab results. 08/14/22 11:05 08/14/22 11:05 Lab Results 08/14/22 08/14/22 08/14/22 Range/Units 11:05 11:05 11:05 WBC 18.20 H (4.8-10.8) K/ul RBC 4.16 L (4.20-5.40) M/uL Hgb 12.5 (12.0-16.0) g/dl Hct 37.1 (37.0-47.0) % MCV 89.2 (80.0-100.0) fL MCH 30.0 (25.0-34.0) pg MCHC 33.7 (32.0-36.0) g/dL RDW Std Deviation 42.4 (36.4-46.3) fL RDW Coeff of Audrey 13.0 (11.5-14.5) % Plt Count 262 (130-400) K/uL MPV 9.4 (9.4-12.4) fL Immature Gran % (Auto) 0.9 % Neut % (Auto) 84.7 % Lymph % (Auto) 7.0 % Snyder % (Auto) 6.4 % Eos % (Auto) 0.8 % Baso % (Auto) 0.2 % Neut # (Auto) 15.42 H (1.40-6.50) K/uL Lymph # (Auto) 1.27 (1.2-3.4) K/uL Snyder # (Auto) 1.16 H (0.11-0.59) K/uL Eos # (Auto) 0.15 (0-0.50) K/uL Baso # (Auto) 0.03 (0-0.2) K/uL Immature Gran # (Auto) 0.17 (0.01-0.20) K/uL PT (9.0-12.0) Seconds INR (0.9-1.1) APTT (21.0-31.0) Seconds PTT Ratio VBG pH (7.36-7.41) VBG pCO2 (38-50) mmHg VBG pO2 mmHg VBG HCO3 mmol/L VBG O2 Saturation % VBG Base Excess mEq/L Sodium 140 (136-145) mmol/L Potassium 4.0 (3.5-5.1) mmol/L Chloride 107 (98-107) mmol/L Carbon Dioxide 30 (21-32) mmol/L Anion Gap 3 (3-11) BUN 19 (6-23) mg/dl Creatinine 0.79 (0.6-1.2) mg/dl Est Cr Clr Drug Dosing Not Reportable Est GFR ( Amer) 89.8 ml/min Est GFR (Non-Af Amer) 77.5 ml/min BUN/Creatinine Ratio 24.1 H (10-20) Glucose 87 (70-99(Fasting)) mg/dl Calcium 8.2 L (8.6-10.3) mg/dl Troponin I High Sens 9.0 (0-14) pg/ml B-Natriuretic Peptide 53 (0-100) pg/ml Lipase 19 (11-82) U/L 08/14/22 08/14/22 Range/Units 11:05 11:51 WBC (4.8-10.8) K/ul RBC (4.20-5.40) M/uL Hgb (12.0-16.0) g/dl Hct (37.0-47.0) % MCV (80.0-100.0) fL MCH (25.0-34.0) pg MCHC (32.0-36.0) g/dL RDW Std Deviation (36.4-46.3) fL RDW Coeff of Audrey (11.5-14.5) % Plt Count (130-400) K/uL MPV (9.4-12.4) fL Immature Gran % (Auto) % Neut % (Auto) % Lymph % (Auto) % Snyder % (Auto) % Eos % (Auto) % Baso % (Auto) % Neut # (Auto) (1.40-6.50) K/uL Lymph # (Auto) (1.2-3.4) K/uL Snyder # (Auto) (0.11-0.59) K/uL Eos # (Auto) (0-0.50) K/uL Baso # (Auto) (0-0.2) K/uL Immature Gran # (Auto) (0.01-0.20) K/uL PT 9.5 (9.0-12.0) Seconds INR 0.9 (0.9-1.1) APTT 22.5 (21.0-31.0) Seconds PTT Ratio 0.8 VBG pH 7.43 H (7.36-7.41) VBG pCO2 55 H (38-50) mmHg VBG pO2 26 mmHg VBG HCO3 37 mmol/L VBG O2 Saturation < 60.0 % VBG Base Excess 10.1 mEq/L Sodium (136-145) mmol/L Potassium (3.5-5.1) mmol/L Chloride (98-107) mmol/L Carbon Dioxide (21-32) mmol/L Anion Gap (3-11) BUN (6-23) mg/dl Creatinine (0.6-1.2) mg/dl Est Cr Clr Drug Dosing Est GFR ( Amer) ml/min Est GFR (Non-Af Amer) ml/min BUN/Creatinine Ratio (10-20) Glucose (70-99(Fasting)) mg/dl Calcium (8.6-10.3) mg/dl Troponin I High Sens (0-14) pg/ml B-Natriuretic Peptide (0-100) pg/ml Lipase (11-82) U/L Imaging Data Attestation: I personally reviewed and interpreted this imaging study as follows: My Impression: Chest x-ray shows no significant change from the chest x-ray done on August 08, 2022. Radiologist's Impression: Chest X-Ray 08/14/22 11:11 SINGLE VIEW CHEST CLINICAL HISTORY: Atypical chest pain. Dyspnea FINDINGS: An AP, portable, upright chest radiograph is compared to study dated 08/08/2022. Correlation is made with chest CT dated 07/06/2022. The cardiomediastinal silhouette is unremarkable noting atherosclerotic calcification of the thoracic aorta. Advanced emphysema and chronic interstitial thickening is similar to previous. Foci of parenchymal scarring are seen throughout both lungs. No airspace consolidation or large pleural effusion is identified. No pneumothorax is seen. The skeletal structures are osteopenic. The bony thorax is grossly intact. IMPRESSION: Advanced emphysematous change with no acute cardiopulmonary abnormality. ACT 112: Negative or not required by law. Electronically signed by: Salbador Wilkerson M.D. 08/14/2022 12:33 PM ECG Data Attestation: I personally reviewed and interpreted this ECG as follows: Interpretation: Sinus rhythm with a rate of 86. AK 138 QRS [address] elevation or ST depression. [facility] Narrative 1056: The patient was evaluated in room A10. A complete history and physical exam was performed Cardiac monitoring: An order was placed for continuous cardiac monitoring. The monitor shows a rate of 90 with sinus rhythm interpreted by id 1300: Vital signs stable on supplemental oxygen. Lungs are clear to auscultation status post 2 DuoNeb's. Patient reports she still feels shortness of breath although she states her chest pain has resolved. Labs show leukocytosis of 18.2 however the patient has been on steroids. VBG within normal limits venous pH 7.438 venous PCO2 55. Troponin and BNP negative. Chest x-ray shows no infiltrate. Patient was given the option of discharge with steroids and follow-up pulmonology and PCP or inpatient observation the patient states she prefers to be admitted to the hospital [facility]. [facility] hospitalist team will be contacted. Impression & Plan Acute exacerbation of chronic obstructive pulmonary disease Discharge Plan Visit Data Chief Complaint: Illness Stated Complaint: LOW O2, INFECTION, SOB ED Provider: Ward Rashid Discharge Problem: Acute exacerbation of chronic obstructive pulmonary disease Patient Disposition: Admitted As Inpatient Forms Stand Alone Forms: Gabriela [facility] [place] [employer] Prescriptions Prescriptions: No Action Cleopatra Ellipta 200-62.5-25 mcg blister with device 1 inh inhalation DAILY Qty: 60 5RF ipratropium-albuterol 0.5 mg-3 mg(2.5 mg base)/3 mL solution for nebulization 3 ml INH QID PRN (Reason: Shortness Of Breath) Qty: 360 5RF albuterol sulfate [ProAir HFA] 90 mcg/actuation HFA aerosol inhaler 2 puff Inhalation Q4 PRN (Reason: Shortness Of Breath Or Wheezing) Qty: 8.5 3 RF (DME) CPAP Machine Misc See Rx Instructions .MEDSUPPLY Qty: 1 0RF Rx Instructions: Auto-titration CPAP with pressure range between 5 cm H2O and 15 cm H2O with humidification. Lifetime need. (DME) CPAP Supplies Misc See Rx Instructions .MEDSUPPLY Qty: 1 0RF Rx Instructions: Refitting of the mask. G47.33 ibuprofen 200 mg Tablet 400 mg PO Q6H PRN (Reason: Pain) lorazepam 0.5 mg tablet 0.5 mg PO Q8H PRN (Reason: anxiety) Qty: 7 0RF pantoprazole 40 mg Tablet,Delayed Release (Dr/Ec) 40 mg PO BID Qty: 60 0RF Rx Instructions: pt states she needs a new prescription for this med escitalopram oxalate [Lexapro] 10 mg tablet 10 mg PO QAM prednisone 20 mg tablet 20 mg PO DAILY Qty: 6 0RF Referrals Referrals: Roshan Crandall MD [Primary Care Provider] -
--- NOTE | 2022-08-14 12:34 | XRay Report ---
SINGLE VIEW CHEST CLINICAL HISTORY: Atypical chest pain. Dyspnea FINDINGS: An AP, portable, upright chest radiograph is compared to study dated 08/08/2022. Correlation is made with chest CT dated 07/06/2022. The cardiomediastinal silhouette is unremarkable noting ather osclerotic calcification of the thoracic aorta. Advanced emphysema and chronic interstitial thickenin g is similar to previous. Foci of parenchymal scarring are seen throughout both lungs. No airspace co nsolidation or large pleural effusion is identified. No pneumothorax is seen. The skeletal structures are osteopenic. The bony thorax is grossly intact. IMPRESSION: Advanced emphysematous change with no acute cardiopulmonary abnormality. ACT 112: Negative or not required by law. Electronically signed by: Salbador Wilkerson M.D. 08/14/2022 12:33 PM
--- NOTE | 2022-08-14 13:39 | History & Physical Report ---
Date of Service August 14, 2022 Assessment & Plan (1) COPD exacerbation: Plan: Admit for observation to med/surg Continue trelegy or hospital equivalent DuoNeb q 4 hours Albuterol q2 hours PRN Prednisone 20mg daily will continue current steroid outpatient dose was to finish tomorrow Azithromycin 500mg IV daily Continue supplemental O2 - goal saturation 88-92% Flutter valve QID Mucines 600mg po BID (2) Sleep apnea, obstructive: Plan: - noncompliant with treatment (3) History of tobacco use: Plan: 40+ pack year history per patient quit 3 years ago follows with pulm Dr Benitez and has appt 08/17/22 (4) Anxiety with depression: Plan: Chronic - Continue Escitalopram 10mg q AM (5) Acid reflux: Plan: Takes Protonix 40mg BID at home, will continue History of Present Illness Chief Complaint: SOB, cough and low O2 saturations Primary Care Provider: Roshan Crandall MD Masha Mcneil is a 66 year old with severe COPD, 40+ pack year history of smoking, quit 3 years ago who is on 3L home O2 therapy and presented to the ER today with complaints of increasing SOB, cough and decreased O2 saturations into the low 80s while on her home 3 L O2. She was recently admitted 08/05 and discharged 08/09 on a prednisone taper. Patient states she was not given any antibiotics on discharge and she feels her infection was not resolved. She was having some increased SOB and chest congestion and she noticed with exertion her O2 sats dropped into the low 80s. She would rest and they would rise. She was evaluated in the ED and was given nebulizer treatment and did have some improvement in her SOB. She states she lives with her daughter and 3 grandch jair. She admits to her grandchildren having congestion and colds. She denies any fevers, chills, hemoptysis, chest pain, or weight loss. She admits to 30# weight gain over the past 6 months due to decreased activity due to her breathing. Currently patient is afebrile, pulse 82, BP 134/97 respirations 27 and saturatin 95% on 3L nc. Patient had recent PFTs 08/08/22 revealing COPD with severe airflow obstruction. CXR revealed advanced emphysematous changes with no acute cardiopulmonary changes. Patient had a CT chest last month. vCO2 elevated at 55, Troponin negative, BNP 53, BMP nl, CBC with slight elevated WBC 18 but appears chronically elevated with steroid usage Patient was given nebulizer treatment in ER and per ER physician lung exam improved post neb but patient was requesting to be admitted. Patient states she was discharged on 08/09 and was rx prednisone 20mg daily and she is still on this dose. was to finish tomorrow. She tells me she has a pulmonology appt 08/17/[address] Benitez. Allergies Allergy/AdvReac Type Severity Reaction Status Date / Time aspirin AdvReac Intermediate GI SYMPTOMS Verified 08/05/22 17:35 Home Medications Medication Instructions Recorded Confirmed Type CPAP Machine #1 ea 12/06/19 08/10/22 Rx CPAP Supplies #1 ea 05/11/21 08/10/22 Rx fluticasone fur. 200 mcg-umeclid 1 inh inhalation DAILY #60 ea 11/24/21 08/10/22 Rx 62.5 mcg-vilant 25 mcg inhalat.powder (Trelegy Ellipta) ProAir HFA 90 mcg/actuation 2 puff inhalation Q4 PRN Shortness 11/27/21 08/10/22 Rx aerosol inhaler (albuterol sulfate) Of Breath Or Wheezing #8.5 grams ibuprofen 200 mg tablet 400 mg PO Q6H PRN Pain 12/17/21 08/10/22 History lorazepam 0.5 mg tablet 0.5 mg PO Q8H PRN anxiety #7 tabs 05/17/22 08/10/22 Rx pantoprazole 40 mg tablet,delayed 40 mg PO BID #60 tabs 05/18/22 08/10/22 Rx release ipratropium 0.5 mg-albuterol 3 mg 3 ml inhalation QID PRN Shortness 06/07/22 08/10/22 Rx (2.5 mg base)/3 mL nebulization Of Breath #360 mL soln escitalopram oxalate 10 mg tablet 10 mg PO QAM 08/05/22 08/10/22 History (Lexapro) prednisone 20 mg tablet 20 mg PO DAILY #6 tabs 08/09/22 08/10/22 Rx Past Med/Surg History Medical History Anxiety with depression Asthma Chronic obstructive pulmonary disease with hypoxia 3L NC PRN Pulm - [facility] [place] COPD exacerbation COVID Family history of colon cancer Sleep apnea, obstructive Yeast infection Surgical History H/O partial thyroidectomy 1990s d/t hemorrhaging?--unknown cause, no meds History of broken collarbone sx to repair History of carpal tunnel surgery of right wrist History of partial hysterectomy History of tooth extraction all teeth Family History Mother , from ovarian cancer Cancer Ovarian Sister Cancer Ovarian Father COPD (chronic obstructive pulmonary disease) Other No family history of adverse response to anesthesia Social History Smoking Status: Former smoker Tobacco Type: Cigarettes Age Started Using Tobacco: 17; Age Quit Using Tobacco: 64; packs per day: 1; Cigarettes Per Day: 20; Second Hand Exposure: No; Do You Dip or Chew Tobacco: No; Hx Alcohol Use: No Hx Substance Use: No Preferred Language: Georgian 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 Ability: Effective Casino Gaming Inspector 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 Beliefs That Will Affect Care: None marital status: Current Living Situation: Family Current Living Situation Comment: Lives with daughter Virgen Feels Safe at Home: Yes Assistive Devices: Oxygen - Continuous Review of Systems Constitutional: + fatigue and + weight gain; no fever and no chills Respiratory: + cough, + chest congestion and + dyspnea; no hemoptysis Cardiovascular: + dyspnea on exertion; no chest pain, no chest pain at rest and no dyspnea at rest Gastrointestinal: no abdominal pain, no early satiety, no nausea and no vomiting Integumentary: no rash, no lesions and no new lesions Psychiatric: + depression and + anxiety; no change in appetite and no confusion Physical Exam Constitutional: WD/WN, vitals as above ENMT: external ear and nose normal, oropharynx normal Neck: trachea midline, no thyromegaly Respiratory: + uses accessory muscles, + cough and able to speak in complete sentences; no respiratory distress equal expansion bilaterally, decreased air expansion no wheeze or rhonchi on exam (post nebulizer treatments in ER) Gastrointestinal (Abdomen): distended but soft and nontender Psychiatric: A+Ox3, euthymic affect Results & Data Results & Data Vital Signs (Past 12 Hours) Vital Signs Temp Pulse Resp BP Pulse Ox O2 Del Method O2 Flow Rate 08/14/22 13:00 95 H 28 H 96 Nasal Cannula 3 08/14/22 13:00 134/97 08/14/22 12:30 81 25 H 96 Nasal Cannula 3 08/14/22 12:00 81 22 97 Nasal Cannula 3 08/14/22 12:00 140/73 08/14/22 11:30 105 H 27 H 93 Nebulizer 08/14/22 11:59 84 08/14/22 11:28 86 34 H 91 Nebulizer 8 08/14/22 11:28 158/76 H 08/14/22 11:00 86 39 H 96 Nasal Cannula 3 08/14/22 10:58 93 H 30 H 95 Nasal Cannula 3 08/14/22 11:00 Nasal Cannula 3 08/14/22 10:46 36.6 C 89 20 150/81 H 94 Nasal Cannula 3 Laboratory Results Abnormal lab results 08/14/22 08/14/22 08/14/22 Range/Units 11:05 11:05 11:51 WBC 18.20 H (4.8-10.8) K/ul RBC 4.16 L (4.20-5.40) M/uL Neut # (Auto) 15.42 H (1.40-6.50) K/uL [place] # (Auto) 1.16 H (0.11-0.59) K/uL VBG pH 7.43 H (7.36-7.41) VBG pCO2 55 H (38-50) mmHg BUN/Creatinine Ratio 24.1 H (10-20) Calcium 8.2 L (8.6-10.3) mg/dl Diagnostic Findings Chest X-Ray 08/14/22 11:11 SINGLE VIEW CHEST CLINICAL HISTORY: Atypical chest pain. Dyspnea FINDINGS: An AP, portable, upright chest radiograph is compared to study dated 08/08/2022. Correlation is made with chest CT dated 07/06/2022. The cardiomediastinal silhouette is unremarkable noting atherosclerotic calcification of the thoracic aorta. Advanced emphysema and chronic interstitial thickening is similar to previous. Foci of parenchymal scarring are seen throughout both lungs. No airspace consolidation or large pleural effusion is identified. No pneumothorax is seen. The skeletal structures are osteopenic. The bony thorax is grossly intact. IMPRESSION: Advanced emphysematous change with no acute cardiopulmonary abnormality. ACT 112: Negative or not required by law. Electronically signed by: Salbador Wilkerson M.D. 08/14/2022 12:33 PM Supervising Physician Co-Signing Physician Notes Patient seen and examined, chart reviewed, case discussed with Anu Spivey PA-C and I agree with the assessment and plan as above except as otherwise noted Labs and images reviewed Masha is a 66-year-old female with a past medical history of former tobacco use, COPD, and home oxygen use who presents with worsened shortness of breath and oxygen requirements. She was recently discharged for COPD exacerbation and placed on a prednisone taker, azithromycin was mentioned but was not filled. On admission she has recently completed a nebulizer with significant improvement in her breathing, was wheezing on admission is no longer wheezing at time of provider reassessment. Is on 3-4 L of nasal cannula, endorses cough with clear/white sputum production. Metrical chest rise. Heart rate is regular. Agree with continuing steroids at 20 mg dose, if significant wheezing or recurrent nebulizers required then will increase to Methylpred 40 mg daily, otherwise continue taper and will add azithromycin for COPD exacerbation. COVID is pending. Continue flutter valve, Mucinex, routine care. Do not hyper oxygenate due to COPD physiology. I agree with management above. PG Care Time/CCT Total # of Minutes Spent Total Time Spent with Patient: Total time spent is greater than 50% in coordination of care (as documented) at patient's floor/unit and/or counseling patient: Coding Level of Care Code 95909 INT INP/OBS CARE 1/40MIN Diagnoses COPD exacerbation J44.1 Sleep apnea, obstructive G47.33 History of tobacco use Z87.891 Anxiety with depression F41.8 Acid reflux K21.9
[2022-08-14] MEDS ORDERED: guaiFENesin 600 MG TABCR PO PRN (23:53)
[2022-08-15] MEDS ORDERED: AZITHROMYCIN 500 MG in DEXTROSE 5% 250 ML IV STA
[2022-08-15] MEDS: PANTOprazole 40 MG TAB PO SCH ×3 (00:19→19:42)
[2022-08-15] MEDS: ALBUT/IPRATROP 3MG/0.5MG NEB 3 ML VIAL NEB SCH ×6 (00:55→19:20)
[2022-08-15] MEDS: ESCITALOPRAM OXALATE 10 MG TAB PO SCH (08:28)
[2022-08-15] MEDS: AZITHROMYCIN 250 MG TAB PO SCH (08:28)
[2022-08-15] MEDS: UMECLIDINIUM/VILANTEROL 62.5/25MCG 7 PUFFS/INHALER INH SCH (08:28)
[2022-08-15] MEDS: FLUTICASONE FUROATE 200MCG 14 PUFFS/INHALER INH SCH (08:29)
[2022-08-15] MEDS ORDERED: predniSONE 20 MG TAB PO SCH (09:00)
[2022-08-15] MEDS ORDERED: predniSONE 20 MG TAB PO ONE (09:15)
[2022-08-15] MEDS ORDERED: SODIUM CHLOR 7% 4 ML NEB NEB SCH (11:40)
--- NOTE | 2022-08-15 11:47 | Hospitalist Progress Note ---
Date of Service August 15, 2022 Assessment & Plan (1) COPD exacerbation: Plan: With h/o severe COPD, being evaluated at [facility] for lung transplant. Sees Dr. Haley HAYNES at [place] as outpatient On 3LNC at home. With multiple hospitalizations for COPD exacerbations Bringing up a lot of sputum, with significant TAPIA and at rest. CXR no PNA -convert to IV steroids from prednisone 20mg daily -add saline nebs bid and scheduled Mucinex to break up mucus -continue flutter valve -continue azithro po x 5 day course -collect sputum sample in case has Pseudomonas or other bacterial infection not covered by azithro -Continue trelegy or hospital equivalent -continue scheduled DuoNebs but hcange to q6h -Continue supplemental O2 - goal saturation >88% -consider PULM consult if no improvement-was to see PULM as outpt 08/17 (2) Acute on chronic respiratory failure with hypoxia: Plan: as above on 3LNC O2 at home, here with tachypnea at rest, now requiring 4LNC at rest Will need repeat 2 step walk test prior to discharge to assess if has increased O2 need (3) Leukocytosis: Plan: 18 on arrival likely from recent prednisone burst/taper from previous hospitalization no need to repeat labs (4) Sleep apnea, obstructive: Plan: - noncompliant with home CPAP (5) History of tobacco use: Plan: 40+ pack year history per patient quit 3 years ago (6) Anxiety with depression: Plan: Chronic - Continue Escitalopram 10mg q AM (7) Acid reflux: Plan: continue Protonix 40mg BID Plan DVT proph-add on Lovenox 40mg SQ daily Dispo-continued stay on med/surg Admission and Anticipated Discharge Date Admission Date: August 14, 2022 Subjective Feels "terrible" and tight in the chest, significant TAPIA. Coughing up a lot of sputum with the flutter valve but feels like there's so much more in her chest. Physical Exam Constitutional: WD/WN, vitals as above Respiratory: + tachypneic (with speaking in complete sentences); does not use accessory muscles and no tripod positioning Auscultation: + diminished lung sounds (throughout); no crackles, no rhonchi and no wheezes Cardiovascular: Rate/Rhythm: regular rate and regular rhythm Extremities: no edema Skin: no rashes, warm and dry Psychiatric: A+Ox3, euthymic affect Results & Data Results & Data Vital Signs (Past 12 Hours) Vital Signs Temp Pulse Resp BP Pulse Ox O2 Del Method O2 Flow Rate 08/15/22 11:01 85 20 97 Nasal Cannula 4 08/15/22 07:35 Nasal Cannula 4 08/15/22 07:31 73 20 96 Nasal Cannula 4 08/15/22 07:15 36.5 C 77 18 139/79 94 Nasal Cannula 4 08/15/22 03:02 96 H 26 H 85 L Nasal Cannula 4 08/15/22 00:56 74 22 Oxymask 4 08/14/22 23:58 Nasal Cannula 4 08/14/22 23:58 36.4 C L 84 22 164/81 H 91 Nasal Cannula 4 FiO2 08/15/22 11:01 08/15/22 07:35 08/15/22 07:31 08/15/22 07:15 08/15/22 03:02 08/15/22 00:56 95 08/14/22 23:58 08/14/22 23:58 PG Care Time/CCT Total # of Minutes Spent Total Time Spent with Patient: Total time spent is greater than 50% in coordination of care (as documented) at patient's floor/unit and/or counseling patient: Coding Level of Care Code 20936 SUB INP/OBS CARE 2/35MIN Diagnoses COPD exacerbation J44.1 Acute on chronic respiratory failure with hypoxia J96.21 Leukocytosis D72.829 Sleep apnea, obstructive G47.33 History of tobacco use Z87.891 Anxiety with depression F41.8 Acid reflux K21.9
[2022-08-15] MEDS: methylPREDNISolone 40 MG in SYRINGE 0 ML IV SCH ×2 (13:26→21:48)
[2022-08-15] MEDS: ENOXAPARIN INJ 40 MG/0.4 ML SYR SQ SCH (13:26)
[2022-08-15] MEDS: guaiFENesin 600 MG TABCR PO SCH ×2 (13:27→19:42)
[2022-08-15] MEDS: LORazepam 0.5 MG TAB PO PRN (14:09)
[2022-08-15] MEDS: ALBUT/IPRATROP 3MG/0.5MG NEB 3 ML VIAL NEB PRN (22:20)
[2022-08-16] MEDS: ALBUT/IPRATROP 3MG/0.5MG NEB 3 ML VIAL NEB PRN (02:03)
[2022-08-16] MEDS: methylPREDNISolone 40 MG in SYRINGE 0 ML IV SCH (06:12)
[2022-08-16] MEDS: ALBUT/IPRATROP 3MG/0.5MG NEB 3 ML VIAL NEB SCH ×4 (07:20→19:30)
[2022-08-16] MEDS: AZITHROMYCIN 250 MG TAB PO SCH (08:15)
[2022-08-16] MEDS: guaiFENesin 600 MG TABCR PO SCH ×2 (08:15→22:10)
[2022-08-16] MEDS: PANTOprazole 40 MG TAB PO SCH ×2 (08:15→22:10)
[2022-08-16] MEDS: UMECLIDINIUM/VILANTEROL 62.5/25MCG 7 PUFFS/INHALER INH SCH (08:16)
[2022-08-16] MEDS: FLUTICASONE FUROATE 200MCG 14 PUFFS/INHALER INH SCH (08:16)
[2022-08-16] MEDS: ESCITALOPRAM OXALATE 10 MG TAB PO SCH (08:19)
[2022-08-16] MEDS: LORazepam 0.5 MG TAB PO PRN (08:21)
--- NOTE | 2022-08-16 08:52 | Electrocardiogram Report ---
Test Reason : Blood Pressure : / mmHG Vent. Rate : 086 BPM Atrial Rate : 086 BPM P-R Int : 138 ms QRS Dur : 066 ms QT Int : 360 ms P-R-T Axes : 077 068 061 degrees QTc Int : 430 ms Poor data quality, interpretation may be adversely affected Normal sinus rhythm Normal ECG When compared with ECG of 05-AUG-2022 17:29, No significant change was found Confirmed by Tyler Carey ([id number]) on 08/16/2022 8:52:19 AM Referred By: Confirmed By:Tyler Carey
[2022-08-16] MEDS ORDERED: predniSONE 20 MG TAB PO SCH (09:00)
[2022-08-16] MEDS: ENOXAPARIN INJ 40 MG/0.4 ML SYR SQ SCH (13:34)
[2022-08-16] MEDS: CEFEPIME 2,000 MG in SYRINGE 0 ML IV SCH (13:39)
[2022-08-16] MEDS: methylPREDNISolone 60 MG in SYRINGE 0 ML IV SCH ×2 (13:39→18:02)
--- NOTE | 2022-08-16 15:20 | Hospitalist Progress Note ---
Date of Service August 16, 2022 Assessment & Plan (1) COPD exacerbation: Plan: Parenteral steroid dosage uptitrated today, 08/16. She takes oral prednisone at home. Oral azithromycin switched to intravenous cefepime. Continue nebulizer treatments. CXR- no PNA. Sputum culture results pending. Consider PULM consult if no improvement- was to see PULM as outpt 08/17 (2) Acute on chronic respiratory failure with hypoxia: Plan: on 3LNC O2 at home, on admission was requiring 4LNC at rest. Wean to baseline oxygen usage as tolerated (3) Leukocytosis: Plan: likely from recent prednisone burst/taper from previous hospitalization. S erial labs (4) Sleep apnea, obstructive: Plan: noncompliant with home CPAP (5) History of tobacco use: Plan: 40+ pack year history per patient. Quit smoking 3 years ago (6) Anxiety with depression: Plan: Chronic and stable. Continue Escitalopram 10mg q AM (7) Acid reflux: Plan: Stable. Continue Protonix 40mg BID Plan DVT proph- Lovenox 40mg SQ daily Dispo-anticipate eventual discharge back to home once stable Admission and Anticipated Discharge Date Admission Date: August 16, 2022 Subjective Alert and oriented. No acute distress. She continues to have shortness of breath with minimal exertion and is coughing with production of discolored phlegm. Oral azithromycin switched to intravenous cefepime. Solu-Medrol dosage uptitrated. Review of Systems Review of Systems: Constitutional-no fever or chills ENT-no blurred vision, no double vision, no epistaxis, no sore throat Respiratory-productive cough. Shortness of breath with minimal exertion. No hemoptysis. No pleuritic pain Cardiac-no palpitations, no chest pain, no syncope GI-no nausea, vomiting, diarrhea, melena, hematochezia -no urinary retention, no urinary incontinence, no dysuria, no hematuria Musculoskeletal-no joint pain, no muscle tenderness Skin-no bruising, no rashes, no pruritus Neuro-no isolated weakness, no paresthesia, no weakness Psych-no depression, no anxiety Physical Exam Physical Exam: General-alert and oriented x3, no fevers, no chills HEENT-head atraumatic and normocephalic, pupils equal and reactive to light, extraocular muscles intact Neck-no lymphadenopathy or thyromegaly, trachea midline Chest-markedly diminished breath sounds bilaterally. Midline rhonchi with forced cough. End expiratory bilateral wheezes. No dullness to percussion. Cardiac-regular rate and rhythm, normal S1 and S2 Abdomen-normal bowel sounds, nontender, no hepatosplenomegaly Extremities-no cyanosis, clubbing, or edema Neuro-cranial nerves II through XII intact, motor and sensory function within normal limits, strength symmetrical , no focal deficits Psych-normal affect, normal mood Results & Data Results & Data Vital Signs (Past 12 Hours) Vital Signs Temp Pulse Resp BP Pulse Ox O2 Del Method O2 Flow Rate 08/16/22 14:48 36.8 C 89 16 148/77 H 96 Nasal Cannula 3 08/16/22 11:34 107 H 22 91 Nasal Cannula 2 08/16/22 11:24 Nasal Cannula 3 08/16/22 07:20 88 18 98 Nasal Cannula 3 08/16/22 07:08 36.6 C 77 16 163/88 H 94 Nasal Cannula 3 Laboratory Results 08/14/22 11:05 08/14/22 11:05 PG Care Time/CCT Total # of Minutes Spent Total Time Spent with Patient: Total time spent is greater than 50% in coordination of care (as documented) at patient's floor/unit and/or counseling patient: Coding Level of Care Code 65824 SUB INP/OBS CARE 3/50MIN Diagnoses COPD exacerbation J44.1 Acute on chronic respiratory failure with hypoxia J96.21 Leukocytosis D72.829 Sleep apnea, obstructive G47.33 History of tobacco use Z87.891 Anxiety with depression F41.8 Acid reflux K21.9
[2022-08-16] MEDS ORDERED: Nursing to Pharmacy 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 SCH (18:00)
[2022-08-17] MEDS: methylPREDNISolone 60 MG in SYRINGE 0 ML IV SCH ×4 (00:30→18:16)
[2022-08-17] MEDS: CEFEPIME 2,000 MG in SYRINGE 0 ML IV SCH ×2 (00:31→12:16)
[2022-08-17] MEDS: ALBUT/IPRATROP 3MG/0.5MG NEB 3 ML VIAL NEB SCH ×4 (07:14→19:22)
[2022-08-17] MEDS: ESCITALOPRAM OXALATE 10 MG TAB PO SCH (08:34)
[2022-08-17] MEDS: PANTOprazole 40 MG TAB PO SCH ×2 (08:34→20:39)
[2022-08-17] MEDS: UMECLIDINIUM/VILANTEROL 62.5/25MCG 7 PUFFS/INHALER INH SCH (08:35)
[2022-08-17] MEDS: FLUTICASONE FUROATE 200MCG 14 PUFFS/INHALER INH SCH (08:35)
[2022-08-17] MEDS: guaiFENesin 600 MG TABCR PO SCH ×2 (08:36→20:39)
[2022-08-17] MEDS: ENOXAPARIN INJ 40 MG/0.4 ML SYR SQ SCH (11:32)
--- NOTE | 2022-08-17 16:38 | Hospitalist Progress Note ---
Date of Service August 17, 2022 Assessment & Plan (1) COPD exacerbation: Plan: Continue high-dose parenteral steroids. Improved. Oral azithromycin has been switched to intravenous cefepime. Continue nebulizer treatments. CXR- no PNA. Sputum culture results nondiagnostic. (2) Acute on chronic respiratory failure with hypoxia: Plan: on 3LNC O2 at home, on admission was requiring 4LNC at rest. She is now back to her baseline. (3) Leukocytosis: Plan: likely from recent prednisone burst/taper from previous hospitalization. Serial labs (4) Sleep apnea, obstructive: Plan: noncompliant with home CPAP (5) History of tobacco use: Plan: 40+ pack year history per patient. Quit smoking 3 years ago (6) Anxiety with depression: Plan: Chronic and stable. Continue Escitalopram 10mg q AM (7) Acid reflux: Plan: Stable. Continue Protonix 40mg BID Plan DVT proph- Lovenox 40mg SQ daily Dispo-anticipate eventual discharge back to home. Hopefully tomorrow, 08/18 Admission and Anticipated Discharge Date Admission Date: August 16, 2022 Subjective She looks and feels better. Oxygen saturations satisfactory on her usual 3 L oxygen. She remains on high-dose Solu-Medrol and cefepime. Hopefully she can go home tomorrow, August 18, on a prednisone taper and oral antibiotic Review of Systems Review of Systems: Constitutional-no fever or chills ENT-no blurred vision, no double vision, no epistaxis, no sore throat Respiratory-productive cough. Shortness of breath with minimal exertion. No hemoptysis. No pleuritic pain Cardiac-no palpitations, no chest pain, no syncope GI-no nausea, vomiting, diarrhea, melena, hematochezia -no urinary retention, no urinary incontinence, no dysuria, no hematuria Musculoskeletal-no joint pain, no muscle tenderness Skin-no bruising, no rashes, no pruritus Neuro-no isolated weakness, no paresthesia, no weakness Psych-no depression, no anxiety Constitutional: + fatigue and + weight gain; no fever and no chills Respiratory: + cough, + chest congestion and + dyspnea; no hemoptysis Cardiovascular: + dyspnea on exertion; no chest pain, no chest pain at rest and no dyspnea at rest Gastrointestinal: no abdominal pain, no early satiety, no nausea and no vomiting Integumentary: no rash, no lesions and no new lesions Psychiatric: + depression and + anxiety; no change in appetite and no confusion Physical Exam Physical Exam: General-alert and oriented x3, no fevers, no chills HEENT-head atraumatic and normocephalic, pupils equal and reactive to light, extraocular muscles intact Neck-no lymphadenopathy or thyromegaly, trachea midline Chest-markedly diminished breath sounds bilaterally. Midline rhonchi with forced cough. End expiratory bilateral wheezes. No dullness to percussion. Cardiac-regular rate and rhythm, normal S1 and S2 Abdomen-normal bowel sounds, nontender, no hepatosplenomegaly Extremities-no cyanosis, clubbing, or edema Neuro-cranial nerves II through XII intact, motor and sensory function within normal limits, strength symmetrical , no focal deficits Psych-normal affect, normal mood Results & Data Results & Data Vital Signs (Past 12 Hours) Vital Signs Temp Pulse Resp BP BP Pulse Ox O2 Del Method 08/17/22 15:39 36.8 C 83 19 156/98 H 95 Nasal Cannula 08/17/22 15:15 81 17 88 L Nasal Cannula 08/17/22 11:42 84 18 95 Nasal Cannula 08/17/22 08:00 Nasal Cannula 08/17/22 08:58 36.7 C 100 H 18 154/82 H 94 Nasal Cannula 08/17/22 07:14 72 15 93 Nasal Cannula O2 Flow Rate 08/17/22 15:39 3 08/17/22 15:15 3 08/17/22 11:42 3 08/17/22 08:00 3 08/17/22 08:58 3 08/17/22 07:14 3 Laboratory Results 08/14/22 11:05 08/14/22 11:05 PG Care Time/CCT Total # of Minutes Spent Total Time Spent with Patient: Total time spent is greater than 50% in coordination of care (as documented) at patient's floor/unit and/or counseling patient: Coding Level of Care Code 02644 SUB INP/OBS CARE 3/50MIN Diagnoses COPD exacerbation J44.1 Acute on chronic respiratory failure with hypoxia J96.21 Leukocytosis D72.829 Sleep apnea, obstructive G47.33 History of tobacco use Z87.891 Anxiety with depression F41.8 Acid reflux K21.9
[2022-08-18] MEDS: methylPREDNISolone 60 MG in SYRINGE 0 ML IV SCH ×3 (00:56→11:47)
[2022-08-18] MEDS: CEFEPIME 2,000 MG in SYRINGE 0 ML IV SCH ×2 (00:56→11:48)
[2022-08-18] MEDS: ALBUT/IPRATROP 3MG/0.5MG NEB 3 ML VIAL NEB PRN (04:30)
[2022-08-18] MEDS: ALBUT/IPRATROP 3MG/0.5MG NEB 3 ML VIAL NEB SCH ×4 (07:36→19:33)
[2022-08-18 07:48] LABS: Creatinine Clr Calc Pharmacy 55.8 ml/min; Est GFR (African American) 74.7 ml/min; Est GFR (Non-African American) 64.4 ml/min
[2022-08-18] MEDS: ESCITALOPRAM OXALATE 10 MG TAB PO SCH (08:20)
[2022-08-18] MEDS: PANTOprazole 40 MG TAB PO SCH ×2 (08:20→20:27)
[2022-08-18] MEDS: FLUTICASONE FUROATE 200MCG 14 PUFFS/INHALER INH SCH (08:20)
[2022-08-18] MEDS: guaiFENesin 600 MG TABCR PO SCH ×2 (08:20→20:27)
[2022-08-18] MEDS: UMECLIDINIUM/VILANTEROL 62.5/25MCG 7 PUFFS/INHALER INH SCH (08:21)
[2022-08-18] MEDS: ENOXAPARIN INJ 40 MG/0.4 ML SYR SQ SCH (11:47)
[2022-08-18] MEDS: LORazepam 0.5 MG TAB PO PRN (11:47)
--- NOTE | 2022-08-18 15:26 | Hospitalist Progress Note ---
Date of Service August 18, 2022 Assessment & Plan (1) COPD exacerbation: Plan: Improved. Parenteral steroid dosage taper down today, August 18. Oral azithromycin has been switched to intravenous cefepime. Continue nebulizer treatments. CXR- no PNA. Sputum culture results nondiagnostic. (2) Acute on chronic respiratory failure with hypoxia: Plan: on 3LNC O2 at home, on admission was requiring 4LNC at rest. She is now back to her baseline. (3) Leukocytosis: Plan: likely from recent prednisone burst/taper from previous hospitalization. Serial labs (4) Sleep apnea, obstructive: Plan: noncompliant with home CPAP (5) History of tobacco use: Plan: 40+ pack year history per patient. Quit smoking 3 years ago (6) Anxiety with depression: Plan: Chronic and stable. Continue Escitalopram 10mg q AM (7) Acid reflux: Plan: Stable. Continue Protonix 40mg BID (8) Paroxysmal atrial tachycardia: Plan: Suspected atrial dysrhythmia due to severity of underlying pulmonary disease. Diltiazem has been started. We will switch to long-acting formulation tomorrow, August 19, if well-tolerated. Plan DVT proph- Lovenox 40mg SQ daily Dispo-anticipate eventual discharge back to home. Hopefully tomorrow, 08/19 Admission and Anticipated Discharge Date Admission Date: August 16, 2022 Subjective Alert and oriented. She states that her heart is beating fast at times. She probably has high risk for atrial tachydysrhythmias due to the severity of her underlying COPD. Solu-Medrol down titrated. Diltiazem has been started. She remains on intravenous Solu-Medrol which has been down titrated. Continue cefepime. Hopefully home tomorrow, August 19 Review of Systems Review of Systems: Constitutional-no fever or chills ENT-no blurred vision, no double vision, no epistaxis, no sore throat Respiratory-productive cough. Shortness of breath with minimal exertion. No hemoptysis. No pleuritic pain Cardiac- no chest pain, no syncope. Occasional palpitations noted GI-no nausea, vomiting, diarrhea, melena, hematochezia -no urinary retention, no urinary incontinence, no dysuria, no hematuria Musculoskeletal-no joint pain, no muscle tenderness Skin-no bruising, no rashes, no pruritus Neuro-no isolated weakness, no paresthesia, no weakness Psych-no depression, no anxiety Constitutional: + fatigue and + weight gain; no fever and no chills Respiratory: + cough, + chest congestion and + dyspnea; no hemoptysis Cardiovascular: + dyspnea on exertion; no chest pain, no chest pain at rest and no dyspnea at rest Gastrointestinal: no abdominal pain, no early satiety, no nausea and no vom iting Integumentary: no rash, no lesions and no new lesions Psychiatric: + depression and + anxiety; no change in appetite and no confusion Physical Exam Physical Exam: General-alert and oriented x3, no fevers, no chills HEENT-head atraumatic and normocephalic, pupils equal and reactive to light, extraocular muscles intact Neck-no lymphadenopathy or thyromegaly, trachea midline Chest-markedly diminished breath sounds bilaterally. Midline rhonchi with forced cough. End expiratory bilateral wheezes. No dullness to percussion. Cardiac-regular rate and rhythm, normal S1 and S2 Abdomen-normal bowel sounds, nontender, no hepatosplenomegaly Extremities-no cyanosis, clubbing, or edema Neuro-cranial nerves II through XII intact, motor and sensory function within normal limits, strength symmetrical , no focal deficits Psych-normal affect, normal mood Results & Data Results & Data Vital Signs (Past 12 Hours) Vital Signs Temp Pulse Resp BP Pulse Ox O2 Del Method O2 Flow Rate 08/18/22 15:04 94 H 20 94 Nasal Cannula 3 08/18/22 15:01 36.7 C 84 18 175/77 H 95 Nasal Cannula 3 08/18/22 11:11 81 18 96 Nasal Cannula 3 08/18/22 08:20 Nasal Cannula 3 08/18/22 07:36 84 20 95 Nasal Cannula 3 08/18/22 07:02 36.7 C 82 18 150/74 H 97 Nasal Cannula 3 08/18/22 04:32 90 20 93 Room Air 3 Laboratory Results 08/14/22 11:05 08/18/22 06:42 PG Care Time/CCT Total # of Minutes Spent Total Time Spent with Patient: Total time spent is greater than 50% in coordination of care (as documented) at patient's floor/unit and/or counseling patient: Coding Level of Care Code 58100 SUB INP/OBS CARE 3/50MIN Diagnoses COPD exacerbation J44.1 Acute on chronic respiratory failure with hypoxia J96.21 Leukocytosis D72.829 Sleep apnea, obstructive G47.33 History of tobacco use Z87.891 Anxiety with depression F41.8 Acid reflux K21.9 Paroxysmal atrial tachycardia I47.1
[2022-08-18] MEDS: dilTIAZem HCl 60 MG TAB PO SCH ×2 (15:45→21:39)
[2022-08-18] MEDS: ACETAMINOPHEN 325 MG TAB PO PRN (18:39)
[2022-08-18] MEDS: methylPREDNISolone 40 MG in SYRINGE 0 ML IV SCH (21:39)
[2022-08-19] MEDS: CEFEPIME 2,000 MG in SYRINGE 0 ML IV SCH ×3 (01:26→20:02)
[2022-08-19] MEDS: methylPREDNISolone 40 MG in SYRINGE 0 ML IV SCH ×3 (05:25→20:02)
[2022-08-19] MEDS: ALBUT/IPRATROP 3MG/0.5MG NEB 3 ML VIAL NEB SCH ×4 (07:07→19:28)
[2022-08-19] MEDS: UMECLIDINIUM/VILANTEROL 62.5/25MCG 7 PUFFS/INHALER INH SCH (07:51)
[2022-08-19] MEDS: FLUTICASONE FUROATE 200MCG 14 PUFFS/INHALER INH SCH (07:51)
[2022-08-19] MEDS: dilTIAZem HCl 60 MG TAB PO SCH (07:52)
[2022-08-19] MEDS: PANTOprazole 40 MG TAB PO SCH ×2 (07:52→20:03)
[2022-08-19] MEDS: guaiFENesin 600 MG TABCR PO SCH ×2 (07:52→20:03)
[2022-08-19] MEDS: ESCITALOPRAM OXALATE 10 MG TAB PO SCH (07:52)
[2022-08-19] MEDS: LORazepam 0.5 MG TAB PO PRN ×2 (07:54→20:02)
[2022-08-19 08:53] LABS: Creatinine Clr Calc Pharmacy 71.3 ml/min; Est GFR (African American) 100.4 ml/min; Est GFR (Non-African American) 86.7 ml/min
[2022-08-19] MEDS: dilTIAZem HCL 180 MG CAPCR PO SCH (10:56)
[2022-08-19] MEDS: ENOXAPARIN INJ 40 MG/0.4 ML SYR SQ SCH (12:30)
--- NOTE | 2022-08-19 14:28 | Pulmonary Consultation ---
Date of Consultation August 19, 2022 Assessment & Plan (1) Acute exacerbation of chronic obstructive pulmonary disease: (2) SOB (shortness of breath): (3) Chronic respiratory failure with hypoxia: (4) COPD (chronic obstructive pulmonary disease): COPD type: unspecified COPD Qualified Code(s): J44.9 - Chronic obstructive pulmonary disease, unspecified (5) History of tobacco use: (6) Multiple pulmonary nodules: Plan PFT 07/30/2022 personally reviewed: Very severe obstructive lung dysfunction, insignificant bronchodilator response, severe decrease in DLCO (Increased FVC by 150 mL, decreased FEV1 by 80 mL, no significant change in TLC or DLCO compared to 05/2021) FVC 2.95 L 99%, FEV1 0.95 L 41%, FEV1/FVC 32%, RV 134%, TLC 115%, RV/TLC 116%, DLCO 28% CT chest 07/06/2022 personally reviewed: Severe centrilobular and paraseptal emphysema appreciated bilaterally RLL 8mm peripheral pleural based nodule (unchanged 03/2020) Linear atelectasis left lower lobe supradiaphragmatic No significant mediastinal lymphadenopathy 2D echo 07/30/2022: EF 55 to 60%, grade 1 diastolic dysfunction, normal RV size and function -- Acute COPD exacerbation Gold E, very severe COPD On Trelegy 200 inhaler at home Respiratory bio fire negative for everything on 08/05/2022 SARS [place]-2 NAAT - 08/14/2022 QTC is 430 08/14/2022, I will start the patient on azithromycin 250 mg Mxdffv-Rkcsxyzmq-Pvdwfe Refer the patient to [place] to get her involved into lung transplant program. PFT 07/30/2022 personally reviewed: Very severe obstructive lung dysfunction, insignificant bronchodilator response, severe decrease in DLCO (Increased FVC by 150 mL, decreased FEV1 by 80 mL, no significant change in TLC or DLCO compared to 05/2021) FVC 2.95 L 99%, FEV1 0.95 L 41%, FEV1/FVC 32%, RV 134%, TLC 115%, RV/TLC 116%, DLCO 28% --Chronic hypoxic respiratory failure On 3 L nasal cannula [id number] Patient has not been using it at night. Advised her to use it at night as well Advised the patient to keep O2 saturation between 88-92% --Pulmonary nodule Right lower lobe pleural-based 7 mm Unchanged since March 2020 Repeat CAT scan June 2023 CT chest 05/03/2021evere centrilobular and paraseptal emphysema Right lower lobe pleural-based peripheral nodule 7 mm (unchanged March 2020) No mediastinal lymphadenopathy -- ALHAJI Polysomnography 06/26/2019: AHI 9.5. Minimum saturation 74%. 448 minutes with saturation less than 89%. Patient is not able to tolerate CPAP Importance of compliance explained and risk of not using CPAP also explained --Ex-smoker > 73-dvkb-qunr smoking history Quit at the age of 63 Positive abstinence explained to the patient --History of Covid-19 Diagnosed 04/27/2021 Did not need hospitalization Plan: I will go down on Solu-Medrol to 40 mg every 12. I will add hypertonic saline nebulized Would recommend azithromycin 250 mg Nnnweb-Nlqmrbxzk-Bbhunk on discharge We will send the patient to pulmonary rehab again on discharge ABG in the morning. If the patient is hypercapnic then we will consider AVAPS machine for her I will get a touch with my clinic staff to see if he can follow-up on the [facility]'s [place] visit for lung transplant Please note the above document was generated using voice recognition software. It may contain grammatical, syntax or spelling errors.Any formal questions or concerns about the content, text or information contained within the body of this dictation should be directly addressed to the provider for clarification. History of Present Illness Attending Physician: Americo Traore MD History of Present Illness 66-year-old female admitted to the hospital for worsening shortness of breath and cough Past medical history: Anxiety/depression, ALHAJI not able to tolerate CPAP Patient was last seen by me in the clinic on 11/27/2021 Time of examination patient was saturating 96-97% on 3 L nasal cannula. I went down to 2 L She was not in any respiratory distress She does say that she is feeling better compared to when she came to the hospital Does complain of chest pain in the lower ribs bilaterally which is reproducible on palpation. She says that is usually worse when she is coughing a lot. When she coughs it is usually clear to yellow in color. Denies any hemoptysis No fever or chills No night sweats, no unintentional weight loss Patient is compliant with her inhalers at home. No dysuria, no diarrhea Social history: > 26-deha-qqhr smoking history, quit 2018, no alcohol, denies any illicit drug use Pets: Cat, dog and a rabbit at home. No birds or poultry nearby Allergies: Seasonal, takes Marilee for it Asthma: No personal or family history of asthma Lung cancer: No history of lung cancer in the family Allergies Allergy/AdvReac Type Severity Reaction Status Date / Time aspirin AdvReac Intermediate GI SYMPTOMS Verified 08/05/22 17:35 Home Medications Medication Instructions Recorded Confirmed Type CPAP Machine #1 ea 12/06/19 08/10/22 Rx CPAP Supplies #1 ea 05/11/21 08/10/22 Rx fluticasone fur. 200 mcg-umeclid 1 inh inhalation DAILY #60 ea 11/24/21 08/14/22 Rx 62.5 mcg-vilant 25 mcg inhalat.powder (Trelegy Ellipta) ProAir HFA 90 mcg/actuation 2 puff inhalation Q4 PRN Shortness 11/27/21 08/14/22 Rx aerosol inhaler (albuterol sulfate) Of Breath Or Wheezing #8.5 grams ibuprofen 200 mg tablet 400 mg PO Q6H PRN Pain 12/17/21 08/14/22 History lorazepam 0.5 mg tablet 0.5 mg PO Q8H PRN anxiety #7 tabs 05/17/22 08/14/22 Rx pantoprazole 40 mg tablet,delayed 40 mg PO BID #60 tabs 05/18/22 08/14/22 Rx release ipratropium 0.5 mg-albuterol 3 mg 3 ml inhalation QID PRN Shortness 06/07/22 08/14/22 Rx (2.5 mg base)/3 mL nebulization Of Breath #360 mL soln escitalopram oxalate 10 mg tablet 10 mg PO QAM 08/05/22 08/14/22 History (Lexapro) prednisone 20 mg tablet 20 mg PO DAILY #6 tabs 08/09/22 08/14/22 Rx Patient History Medical History Anxiety with depression Asthma Chronic obstructive pulmonary disease with hypoxia 3L NC PRN Pulm - Min [place] COPD exacerbation COVID Family history of colon cancer Sleep apnea, obstructive Yeast infection Surgical History H/O partial thyroidectomy 1990s d/t hemorrhaging?--unknown cause, no meds History of broken collarbone sx to repair History of carpal tunnel surgery of right wrist History of partial hysterectomy History of tooth extraction all teeth Family History Mother , from ovarian cancer Cancer Ovarian Sister Cancer Ovarian Father COPD (chronic obstructive pulmonary disease) Other No family history of adverse response to anesthesia Social History Smoking Status: Former smoker Tobacco Type: Cigarettes Age Started Using Tobacco: 17; Age Quit Using Tobacco: 64; packs per day: 1; Cigarettes Per Day: 20; Second Hand Exposure: No; Do You Dip or Chew Tobacco: No; Hx Alcohol Use: No Hx Substance Use: No Preferred Language: Swedish 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 Ability: Effective 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 Beliefs That Will Affect Care: None marital status: Current Living Situation: Family Current Living Situation Comment: Lives with daughter Virgen Other Information That Helps Us Care for You: No Feels Safe at Home: Yes Safety Concerns: Feels Safe At This Time Assistive Devices: Cane, Nebulizer and Oxygen - Continuous Review of Systems Review of Systems: All systems reviewed & are unremarkable except as noted in HPI & below Physical Exam 2 Physical Exam: Constitutional: No acute distress,frail-appearing HEENT: EOMI, PERRLA Respiratory system:Decreased air entry bilaterally, no wheeze, no rhonchi, no crackles CVS: S1-S2 positive, no murmurs or gallops Abdomen: Soft, nontender, nondistended, positive bowel sounds x4 Extremities: +2 pulses bilaterally radialis,no cyanosis, no edema Neuro: Awake alert oriented x3 Psych: Normal mood and affect : No French Skin: no rashes, warm and dry Lymphatic: no cervical or axillary lymphadenopathy Results & Data Results & Data Vital Signs (Past 12 Hours) Vital Signs Temp Pulse Resp BP Pulse Ox O2 Del Method O2 Flow Rate 08/19/22 07:55 Nasal Cannula 3 08/19/22 10:40 109 H 24 92 Nasal Cannula 3 08/19/22 07:08 69 20 96 Nasal Cannula 3 08/19/22 06:54 36.6 C 71 18 155/80 H 95 Nasal Cannula 3 Laboratory Results 08/14/22 11:05 08/19/22 07:53 PG Care Time/CCT Total # of Minutes Spent Total Time Spent with Patient: Total time spent is greater than 50% in coordination of care (as documented) at patient's floor/unit and/or counseling patient: Coding Level of Care Code 20954 INT INP/OBS CARE 375MIN Diagnoses Acute exacerbation of chronic obstructive pulmonary disease J44.1 SOB (shortness of breath) R06.02 Chronic respiratory failure with hypoxia J96.11 COPD (chronic obstructive pulmonary disease) J44.9 COPD type: unspecified COPD History of tobacco use Z87.891 Multiple pulmonary nodules R91.8
--- NOTE | 2022-08-19 14:39 | Hospitalist Progress Note ---
Date of Service August 19, 2022 Assessment & Plan (1) COPD exacerbation: Plan: Improved. Parenteral steroid dosage taper down on August 18. Oral azithromycin has been switched to intravenous cefepime. Continue nebulizer treatments. CXR- no PNA. Sputum culture results nondiagnostic. Pulmonary medicine consultation requested (2) Acute on chronic respiratory failure with hypoxia: Plan: on 3LNC O2 at home, on admission was requiring 4LNC at rest. She has occasional desaturations at bedtime which causes her significant anxiety. She was told to increase her oxygen supplementation temporarily as needed. (3) Leukocytosis: Plan: likely from steroid therapy. She may have underlying bronchitis component. (4) Sleep apnea, obstructive: Plan: noncompliant with home CPAP (5) History of tobacco use: Plan: 40+ pack year history per patient. Quit smoking 3 years ago (6) Anxiety with depression: Plan: Chronic and stable. Continue Escitalopram 10mg q AM (7) Acid reflux: Plan: Stable. Continue Protonix 40mg BID (8) Paroxysmal atrial tachycardia: Plan: Suspected atrial dysrhythmia due to severity of underlying pulmonary disease. Diltiazem has been well-tolerated so far. Switched to CD formulation today, August 19. Plan DVT proph- Lovenox SQ daily Dispo-anticipate eventual discharge back to home. Hopefully tomorrow, 08/20 Admission and Anticipated Discharge Date Admission Date: August 16, 2022 Subjective Alert and oriented. She has occasional desaturation episodes at nighttime and this has made her quite nervous. Unfortunately, this could continue indefinitely and this was made clear to her that she may need to temporarily increase her supplemental oxygen when and if this occurs. She has tolerated the diltiazem quite well and the formulation was switched to long-acting formulation today, August 19. We will consult pulmonary medicine at her behest. Solu-Medrol dosage has been tapered down. Review of Systems Review of Systems: Constitutional-no fever or chills ENT-no blurred vision, no double vision, no epistaxis, no sore throat Respiratory-productive cough. Shortness of breath with minimal exertion. No hemoptysis. No pleuritic pain Cardiac- no chest pain, no syncope. Occasional palpitations noted GI-no nausea, vomiting, diarrhea, melena, hematochezia -no urinary retention, no urinary incontinence, no dysuria, no hematuria Musculoskeletal-no joint pain, no muscle tenderness Skin-no bruising, no rashes, no pruritus Neuro-no isolated weakness, no paresthesia, no weakness Psych-no depression, no anxiety Physical Exam Physical Exam: General-alert and oriented x3, no fevers, no chills HEENT-head atraumatic and normocephalic, pupils equal and reactive to light, extraocular muscles intact Neck-no lymphadenopathy or thyromegaly, trachea midline Chest-markedly diminished breath sounds bilaterally. Midline rhonchi with forced cough. End expiratory bilateral wheezes. No dullness to percussion. Cardiac-regular rate and rhythm, normal S1 and S2 Abdomen-normal bowel sounds, nontender, no hepatosplenomegaly Extremities-no cyanosis, clubbing, or edema Neuro-cranial nerves II through XII intact, motor and sensory function within normal limits, strength symmetrical , no focal deficits Psych-normal affect, normal mood Results & Data Results & Data Vital Signs (Past 12 Hours) Vital Signs Temp Pulse Resp BP Pulse Ox O2 Del Method O2 Flow Rate 08/19/22 07:55 Nasal Cannula 3 08/19/22 10:40 109 H 24 92 Nasal Cannula 3 08/19/22 07:08 69 20 96 Nasal Cannula 3 08/19/22 06:54 36.6 C 71 18 155/80 H 95 Nasal Cannula 3 Laboratory Results 08/14/22 11:05 08/19/22 07:53 PG Care Time/CCT Total # of Minutes Spent Total Time Spent with Patient: Total time spent is greater than 50% in coordination of care (as documented) at patient's floor/unit and/or counseling patient: Coding Level of Care Code 94746 SUB INP/OBS CARE 3/50MIN Diagnoses COPD exacerbation J44.1 Acute on chronic respiratory failure with hypoxia J96.21 Leukocytosis D72.829 Sleep apnea, obstructive G47.33 History of tobacco use Z87.891 Anxiety with depression F41.8 Acid reflux K21.9 Paroxysmal atrial tachycardia I47.1
[2022-08-19] MEDS: ACETAMINOPHEN 325 MG TAB PO PRN (18:27)
[2022-08-19] MEDS: SODIUM CHLOR 7% 4 ML NEB NEB SCH (19:29)
[2022-08-20] MEDS: CEFEPIME 2,000 MG in SYRINGE 0 ML IV SCH ×3 (03:13→19:26)
[2022-08-20] MEDS: SODIUM CHLOR 7% 4 ML NEB NEB SCH (07:16)
[2022-08-20] MEDS: ALBUT/IPRATROP 3MG/0.5MG NEB 3 ML VIAL NEB SCH ×4 (07:16→19:31)
[2022-08-20 07:47] LABS: HCO3 ABG 30 mmol/L (19-24); Oxygen Saturation ABG 97.3 % (90-95); PCO2 ABG 48 mmHg (35-46); PO2 ABG 78 mmHg (80-95)
[2022-08-20 08:16] LABS: Creatinine Clr Calc Pharmacy 69.4 ml/min; Est GFR (African American) 97.2 ml/min; Est GFR (Non-African American) 83.8 ml/min
[2022-08-20] MEDS: dilTIAZem HCL 180 MG CAPCR PO SCH (08:18)
[2022-08-20] MEDS: guaiFENesin 600 MG TABCR PO SCH ×2 (08:18→19:26)
[2022-08-20] MEDS: UMECLIDINIUM/VILANTEROL 62.5/25MCG 7 PUFFS/INHALER INH SCH (08:19)
[2022-08-20] MEDS: ESCITALOPRAM OXALATE 10 MG TAB PO SCH (08:19)
[2022-08-20] MEDS: methylPREDNISolone 40 MG in SYRINGE 0 ML IV SCH ×2 (08:19→19:26)
[2022-08-20] MEDS: PANTOprazole 40 MG TAB PO SCH ×2 (08:19→19:26)
[2022-08-20] MEDS: FLUTICASONE FUROATE 200MCG 14 PUFFS/INHALER INH SCH (08:20)
[2022-08-20 08:30] LABS: Allen Test Pos (Pos)
--- NOTE | 2022-08-20 08:40 | Pulmonology Progress Note ---
Date of Service August 20, 2022 Assessment & Plan (1) Acute exacerbation of chronic obstructive pulmonary disease: (2) SOB (shortness of breath): (3) Chronic respiratory failure with hypoxia: (4) COPD (chronic obstructive pulmonary disease): COPD type: unspecified COPD Qualified Code(s): J44.9 - Chronic obstructive pulmonary disease, unspecified (5) History of tobacco use: (6) Multiple pulmonary nodules: Plan PFT 07/30/2022 personally reviewed: Very severe obstructive lung dysfunction, insignificant bronchodilator response, severe decrease in DLCO (Increased FVC by 150 mL, decreased FEV1 by 80 mL, no significant change in TLC or DLCO compared to 05/2021) FVC 2.95 L 99%, FEV1 0.95 L 41%, FEV1/FVC 32%, RV 134%, TLC 115%, RV/TLC 116%, D LCO 28% CT chest 07/06/2022 personally reviewed: Severe centrilobular and paraseptal emphysema appreciated bilaterally RLL 8mm peripheral pleural based nodule (unchanged 03/2020) Linear atelectasis left lower lobe supradiaphragmatic No significant mediastinal lymphadenopathy 2D echo 07/30/2022: EF 55 to 60%, grade 1 diastolic dysfunction, normal RV size and function ABG 08/20/2022: 7.40/48/78 on 3 L -- Acute COPD exacerbation Gold E, very severe COPD On Trelegy 200 inhaler at home Respiratory bio fire negative for everything on 08/05/2022 SARS [place]-2 NAAT - 08/14/2022 QTC is 430 08/14/2022, I will start the patient on azithromycin 250 mg Myaigu-Qqcumsjgj-Yzunhg Refer the patient to [place] to get her involved into lung transplant program. PFT 07/30/2022 personally reviewed: Very severe obstructive lung dysfunction, insignificant bronchodilator response, severe decrease in DLCO (Increased FVC by 150 mL, decreased FEV1 by 80 mL, no significant change in TLC or DLCO compared to 05/2021) FVC 2.95 L 99%, FEV1 0.95 L 41%, FEV1/FVC 32%, RV 134%, TLC 115%, RV/TLC 116%, DLCO 28% --Chronic hypoxic respiratory failure On 3 L nasal cannula vsqtoh-oav-dnzal Patient has not been using it at night. Advised her to use it at night as well Advised the patient to keep O2 saturation between 88-92% --Pulmonary nodule Right lower lobe pleural-based 7 mm Unchanged since March 2020 Repeat CAT scan June [address]23 CT chest 05/03/2021evere centrilobular and paraseptal emphysema Right lower lobe pleural-based peripheral nodule 7 mm (unchanged March 2020) No mediastinal lymphadenopathy -- ALHAJI Polysomnography 06/26/2019: AHI 9.5. Minimum saturation 74%. 448 minutes with saturation less than 89%. Patient is not able to tolerate CPAP Importance of compliance explained and risk of not using CPAP also explained --Ex-smoker > 37-nsxp-vtoo smoking history Quit at the age of 63 Positive abstinence explained to the patient --History of Covid-19 Diagnosed 04/27/2021 Did not need hospitalization Plan: Continue with Solu-Medrol to 40 mg every 12. Starting tomorrow can go down to 40 mg daily Decrease the frequency of hypertonic and into once a day. Continue with Mucinex Would recommend azithromycin 250 mg Qeuvzn-Mzwptrskl-Kicjrt on discharge We will send the patient to pulmonary rehab again on discharge ABG from morning does show baseline hypercapnia, she will be a candidate for AVAPS. I discussed it with the patient and she is agreeable to using it at [facility]. Case management made aware Due to chronic respiratory failure consequent to COPD, patient now requires a noninvasive home ventilator. Bilevel therapy with and without a rate would be ineffective as patient requires a volume targeted mode. Ventilation is required to decrease work of breathing and improve pulmonary status. Interruption of ventilator support would lead to decline of health s tatus. NIMV settings should be AVAPS-AE; Breath rate: auto; Inspiratory time:auto; Sigh: off; Tidal Volume: 350-450, PS min: 4-10 PS max: 12-20; EPAP min: 6-10; EPAP max: 10-16; AVAPS rate: 14 during sleep and as needed Please note the above document was generated using voice recognition software. It may contain grammatical, syntax or spelling errors.Any formal questions or concerns about the content, text or information contained within the body of this dictation should be directly addressed to the provider for clarification. Admission and Anticipated Discharge Date Admission Date: August 16, 2022 Subjective Patient seen and examined at bedside. No acute distress, notable symptoms overnight She says she slept well. She was saturating 97% on 3 L, I went down to 2 L. She was able to tolerate the hypertonic saline in the morning. Denies any headache, no nausea, no vomiting Still complaining of chest congestion, hypertonic saline did help her bring up some phlegm. Denies any nausea vomiting No headache. Review of Systems Review of Systems: All systems reviewed & are unremarkable except as noted in Subjective Physical Exam Physical Exam: Constitutional: No acute distress,frail-appearing HEENT: EOMI, PERRLA Respiratory system:Decreased air entry bilaterally, no rhonchi, no crackles, minimal expiratory wheeze CVS: S1-S2 positive, no murmurs or gallops Abdomen: Soft, nontender, nondistended, positive bowel sounds x4 Extremities: +2 pulses bilaterally radialis,no cyanosis, no edema Neuro: Awake alert oriented x3 Psych: Normal mood and affect : No French Skin: no rashes, warm and dry Lymphatic: no cervical or axillary lymphadenopathy Results & Data Results & Data Vital Signs (Past 12 Hours) Vital Signs Temp Pulse Resp BP Pulse Ox O2 Del Method O2 Flow Rate 08/20/22 07:37 Nasal Cannula 3 08/20/22 07:17 76 20 94 Nasal Cannula 3 08/20/22 06:58 36.6 C 72 18 153/78 H 96 Nasal Cannula 3 08/19/22 22:17 36.5 C 70 18 153/70 H 95 Nasal Cannula 3 08/19/22 21:29 Nasal Cannula 3 Laboratory Results 08/14/22 11:05 08/20/22 07:31 PG Care Time/CCT Total # of Minutes Spent Total Time Spent with Patient: Total time spent is greater than 50% in coordination of care (as documented) at patient's floor/unit and/or counseling patient: Coding Level of Care Code 02298 SUB INP/OBS CARE 3/50MIN Diagnoses Acute exacerbation of chronic obstructive pulmonary disease J44.1 SOB (shortness of breath) R06.02 Chronic respiratory failure with hypoxia J96.11 COPD (chronic obstructive pulmonary disease) J44.9 COPD type: unspecified COPD History of tobacco use Z87.891 Multiple pulmonary nodules R91.8
[2022-08-20] MEDS: ACETAMINOPHEN 325 MG TAB PO PRN ×2 (10:07→16:29)
[2022-08-20] MEDS: ENOXAPARIN INJ 40 MG/0.4 ML SYR SQ SCH (12:40)
[2022-08-20] MEDS ORDERED: traMADol HCL 50 MG TABLET PO PRN (14:43)
--- NOTE | 2022-08-20 14:56 | Hospitalist Progress Note ---
Date of Service August 20, 2022 Assessment & Plan (1) COPD exacerbation: Plan: Improved. Parenteral steroid dosage tapering has commenced. Oral azithromycin has been switched to intravenous cefepime while hospitalized then will go back on oral azithromycin every Tuesday at the time of discharge.. Continue nebulizer treatments. CXR- no PNA. Sputum culture results nondiagnostic. Pulmonary medicine consultation appreciated. Home AVAPS requested (2) Acute on chronic respiratory failure with hypoxia: Plan: on 3LNC O2 at home, on admission was requiring 4LNC at rest. She has occasional desaturations at bedtime which causes her significant anxiety. She was told to increase her oxygen supplementation temporarily as needed. (3) Leukocytosis: Plan: likely from steroid therapy. No appreciable pneumonia (4) Sleep apnea, obstructive: Plan: noncompliant with home CPAP (5) History of tobacco use: Plan: 40+ pack year history per patient. Quit smoking 3 years ago (6) Anxiety with depression: Plan: Chronic and stable. Continue Escitalopram 10mg q AM (7) Acid reflux: Plan: Stable. Continue Protonix 40mg BID (8) Paroxysmal atrial tachycardia: Plan: Suspected atrial dysrhythmia due to severity of underlying pulmonary disease. Diltiazem has been well-tolerated so far. Switched to CD formulation on August 19. Plan DVT proph- Lovenox SQ daily Dispo-anticipate eventual discharge back to home. Hopefully tomorrow, 08/21 Admission and Anticipated Discharge Date Admission Date: August 16, 2022 Subjective Alert and oriented. No distress. She is tolerating diltiazem CD. AVAPS has been ordered by pulmonary medicine. She will be started on azithromycin 250 mg every Tuesday at discharge. Respiratory status stable on 3 L oxygen. PCO2 mildly elevated at 48 on ABG. Review of Systems Review of Systems: Constitutional-no fever or chills ENT-no blurred vision, no double vision, no epistaxis, no sore throat Respiratory-productive cough. Shortness of breath with minimal exertion. No hemoptysis. No pleuritic pain Cardiac- no chest pain, no syncope. Occasional palpitations noted GI-no nausea, vomiting, diarrhea, melena, hematochezia -no urinary retention, no urinary incontinence, no dysuria, no hematuria Musculoskeletal-no joint pain, no muscle tenderness Skin-no bruising, no rashes, no pruritus Neuro-no isolated weakness, no paresthesia, no weakness Psych-no depression, no anxiety Physical Exam Physical Exam: General-alert and oriented x3, no fevers, no chills HEENT-head atraumatic and normocephalic, pupils equal and reactive to light, extraocular muscles intact Neck-no lymphadenopathy or thyromegaly, trachea midline Chest-markedly diminished breath sounds bilaterally. Midline rhonchi with forced cough. End expiratory bilateral wheezes. No dullness to percussion. Cardiac-regular rate and rhythm, normal S1 and S2 Abdomen-normal bowel sounds, nontender, no hepatosplenomegaly Extremities-no cyanosis, clubbing, or edema Neuro-cranial nerves II through XII intact, motor and sensory function within normal limits, strength symmetrical , no focal deficits Psych-normal affect, normal mood Results & Data Results & Data Vital Signs (Past 12 Hours) Vital Signs Temp Pulse Resp BP Pulse Ox O2 Del Method O2 Flow Rate 08/20/22 10:43 70 20 96 Nasal Cannula 2 08/20/22 07:37 Nasal Cannula 3 08/20/22 07:17 76 20 94 Nasal Cannula 3 08/20/22 06:58 36.6 C 72 18 153/78 H 96 Nasal Cannula 3 Laboratory Results 08/14/22 11:05 08/20/22 07:31 PG Care Time/CCT Total # of Minutes Spent Total Time Spent with Patient: Total time spent is greater than 50% in coordination of care (as documented) at patient's floor/unit and/or counseling patient: Coding Level of Care Code 79034 SUB INP/OBS CARE 2/35MIN Diagnoses COPD exacerbation J44.1 Acute on chronic respiratory failure with hypoxia J96.21 Leukocytosis D72.829 Sleep apnea, obstructive G47.33 History of tobacco use Z87.891 Anxiety with depression F41.8 Acid reflux K21.9 Paroxysmal atrial tachycardia I47.1
[2022-08-20] MEDS: ALBUT/IPRATROP 3MG/0.5MG NEB 3 ML VIAL NEB PRN (23:05)
[2022-08-21] MEDS: CEFEPIME 2,000 MG in SYRINGE 0 ML IV SCH ×2 (04:04→12:03)
[2022-08-21] MEDS: ALBUT/IPRATROP 3MG/0.5MG NEB 3 ML VIAL NEB SCH ×2 (07:41→11:38)
[2022-08-21] MEDS: ESCITALOPRAM OXALATE 10 MG TAB PO SCH (08:28)
[2022-08-21] MEDS: PANTOprazole 40 MG TAB PO SCH (08:28)
[2022-08-21] MEDS: UMECLIDINIUM/VILANTEROL 62.5/25MCG 7 PUFFS/INHALER INH SCH (08:28)
[2022-08-21] MEDS: dilTIAZem HCL 180 MG CAPCR PO SCH (08:28)
[2022-08-21] MEDS: guaiFENesin 600 MG TABCR PO SCH (08:28)
[2022-08-21] MEDS: methylPREDNISolone 40 MG in SYRINGE 0 ML IV SCH (08:28)
[2022-08-21] MEDS: FLUTICASONE FUROATE 200MCG 14 PUFFS/INHALER INH SCH (08:29)
[2022-08-21] MEDS: LORazepam 0.5 MG TAB PO PRN (08:34)
[2022-08-21] MEDS ORDERED: SODIUM CHLOR 7% 4 ML NEB NEB SCH (09:00)
[2022-08-21] MEDS: ACETAMINOPHEN 325 MG TAB PO PRN (09:17)
--- NOTE | 2022-08-21 09:21 | Pulmonology Progress Note ---
Date of Service August 21, 2022 Assessment & Plan (1) Acute exacerbation of chronic obstructive pulmonary disease: (2) SOB (shortness of breath): (3) Chronic respiratory failure with hypoxia: (4) COPD (chronic obstructive pulmonary disease): COPD type: unspecified COPD Qualified Code(s): J44.9 - Chronic obstructive pulmonary disease, unspecified (5) History of tobacco use: (6) Multiple pulmonary nodules: Plan PFT 07/30/2022 personally reviewed: Very severe obstructive lung dysfunction, insignificant bronchodilator response, severe decrease in DLCO (Increased FVC by 150 mL, decreased FEV1 by 80 mL, no significant change in TLC or DLCO compared to 05/2021) FVC 2.95 L 99%, FEV1 0.95 L 41%, FEV1/FVC 32%, RV 134%, TLC 115%, RV/TLC 116%, D LCO 28% CT chest 07/06/2022 personally reviewed: Severe centrilobular and paraseptal emphysema appreciated bilaterally RLL 8mm peripheral pleural based nodule (unchanged 03/2020) Linear atelectasis left lower lobe supradiaphragmatic No significant mediastinal lymphadenopathy 2D echo 07/30/2022: EF 55 to 60%, grade 1 diastolic dysfunction, normal RV size and function ABG 08/20/2022: 7.40/48/78 on 3 L -- Acute COPD exacerbation Gold E, very severe COPD On Trelegy 200 inhaler at home Respiratory bio fire negative for everything on 08/05/2022 SARS [place]-2 NAAT - 08/14/2022 QTC is 430 08/14/2022, I will start the patient on azithromycin 250 mg [id number] Refer the patient to [place] to get her involved into lung transplant program. PFT 07/30/2022 personally reviewed: Very severe obstructive lung dysfunction, insignificant bronchodilator response, severe decrease in DLCO (Increased FVC by 150 mL, decreased FEV1 by 80 mL, no significant change in TLC or DLCO compared to 05/2021) FVC 2.95 L 99%, FEV1 0.95 L 41%, FEV1/FVC 32%, RV 134%, TLC 115%, RV/TLC 116%, DLCO 28% --Chronic hypoxic hypercapnic respiratory failure On 3 L nasal cannula [id number] Patient has not been using it at night. Advised her to use it at night as well Advised the patient to keep O2 saturation between 88-92% Due to chronic respiratory failure consequent to COPD, patient now requires a noninvasive home ventilator. Bilevel therapy with and without a rate would be ineffective as patient requires a volume targeted mode. Ventilation is required to decrease work of breathing and improve pulmonary status. Interruption of ventilator support would lead to decline of health status. NIMV settings should be AVAPS-AE; Breath rate: auto; Inspiratory time:auto; Sigh: off; Tidal Volume: 350-450, PS min: 4-10 PS max: 12-20; EPAP min: 6-10; EPAP max: 10-16; AVAPS rate: 14 during sleep and as needed --Pulmonary nodule Right lower lobe pleural-based 7 mm Unchanged since March 2020 Repeat CAT scan June 2023 CT chest 2Severe centrilobular and paraseptal emphysema Right lower lobe pleural-based peripheral nodule 7 mm (unchanged March 2020) No mediastinal lymphadenopathy -- ALHAJI Polysomnography 06/26/2019: AHI 9.5. Minimum saturation 74%. 448 minutes with saturation less than 89%. Patient is not able to tolerate CPAP Importance of compliance explained and risk of not using CPAP also explained --Ex-smoker > 99-nsre-agvr smoking history Quit at the age of 63 Positive abstinence explained to the patient --History of Covid-19 Diagnosed 04/27/2021 Did not need hospitalization Plan: Okay to transition Solu-Medrol to prednisone 40 mg for 3 days followed by 20 mg for 3 days Decrease the frequency of hypertonic and into once a day. Continue with Mucinex Would recommend azithromycin 250 mg Zczlsw-Cayfmeqgj-Awqlqz on discharge. Resume Trelegy 200 inhaler on discharge. Patient should use hypertonic saline nebulized at home as well along with Mucinex and flutter valve Patient will benefit from pulmonary rehab ABG from morning does show baseline hypercapnia, she will be a candidate for AVAPS. I discussed it with the patient and she is agreeable to using it at home. Case management made aware No further recommendation from pulmonary perspective. We will sign off Please call directly with any questions Please note the above document was generated using voice recognition software. It may contain grammatical, syntax or spelling errors.Any formal questions or concerns about the content, text or information contained within the body of this dictation should be directly addressed to the provider for clarification. Admission and Anticipated Discharge Date Admission Date: August 16, 2022 Subjective Patient seen and examined at bedside. No acute distress, no adverse events overnight She was able to tolerate BiPAP overnight. She was saturating 92% on 3 L nasal cannula while just coming back from the bathroom. Denied any nausea vomiting Coughing up clear phlegm. No fever or chills Fair appetite Review of Systems Review of Systems: All systems reviewed & are unremarkable except as noted in Subjective Physical Exam Physical Exam: Constitutional: No acute distress,frail-appearing HEENT: EOMI, PERRLA Respiratory system:Decreased air entry bilaterally, no rhonchi, no crackles, no wheeze CVS: S1-S2 positive, no murmurs or gallops Abdomen: Soft, nontender, nondistended, positive bowel sounds x4 Extremities: +2 pulses bilaterally radialis,no cyanosis, no edema Neuro: Awake alert oriented x3 Psych: Normal mood and affect : No French Skin: no rashes, warm and dry Lymphatic: no cervical or axillary lymphadenopathy Results & Data Results & Data Vital Signs (Past 12 Hours) Vital Signs Temp Pulse Resp BP BP Pulse Ox O2 Del Method 08/21/22 07:44 74 16 94 Nasal Cannula 08/21/22 07:35 36.8 C 81 21 164/89 H 90 Nasal Cannula 08/21/22 07:15 Nasal Cannula 08/21/22 04:09 36.4 C L 81 16 162/76 H 93 Nasal Cannula 08/21/22 02:05 30 H 97 08/21/22 01:42 36.5 C 77 18 179/83 H 90 Nasal Cannula 08/20/22 23:33 36 H 97 08/20/22 23:06 08/20/22 23:05 24 Nasal Cannula O2 Flow Rate 08/21/22 07:44 2 08/21/22 07:35 2 08/21/22 07:15 2 08/21/22 04:09 08/21/22 02:05 3 08/21/22 01:42 3 08/20/22 23:33 3 08/20/22 23:06 3 08/20/22 23:05 5 Laboratory Results 08/14/22 11:05 08/20/22 07:31 PG Care Time/CCT Total # of Minutes Spent Total Time Spent with Patient: Total time spent is greater than 50% in coordination of care (as documented) at patient's floor/unit and/or counseling patient: Coding Level of Care Code 12093 SUB INP/OBS CARE 2/35MIN Diagnoses Acute exacerbation of chronic obstructive pulmonary disease J44.1 SOB (shortness of breath) R06.02 Chronic respiratory failure with hypoxia J96.11 COPD (chronic obstructive pulmonary disease) J44.9 COPD type: unspecified COPD History of tobacco use Z87.891 Multiple pulmonary nodules R91.8
--- NOTE | 2022-08-21 10:20 | Discharge Summary ---
Date of Service August 21, 2022 Admission HPI Per Admitting Provider Masha Mcneil is a 66 year old with severe COPD, 40+ pack year history of smoking, quit 3 years ago who is on 3L home O2 therapy and presented to the ER today with complaints of increasing SOB, cough and decreased O2 saturations into the low 80s while on her home 3 L O2. She was recently admitted 08/05 and discharged 08/09 on a prednisone taper. Patient states she was not given any antibiotics on discharge and she feels her infection was not resolved. She was having some increased SOB and chest congestion and she noticed with exertion her O2 sats dropped into the low 80s. She would rest and they would rise. She was evaluated in the ED and was given nebulizer treatment and did have some improvement in her SOB. She states she lives with her daughter and 3 grandchildren. She admits to her grandchildren having congestion and colds. She denies any fevers, chills, hemoptysis, chest pain, or weight loss. She admits to 30# weight gain over the past 6 months due to decreased activity due to her breathing. Currently patient is afebrile, pulse 82, BP 134/97 respirations 27 and saturatin 95% on 3L nc. Patient had recent PFTs 08/08/22 revealing COPD with severe airflow obstruction. CXR revealed advanced emphysematous changes with no acute cardiopulmonary changes. Patient had a CT chest last month. vCO2 elevated at 55, Troponin negative, BNP 53, BMP nl, CBC with slight elevated WBC 18 but appears chronically elevated with steroid usage Patient was given nebulizer treatment in ER and per ER physician lung exam improved post neb but patient was requesting to be admitted. Patient states she was discharged on 08/09 and was rx prednisone 20mg daily and she is still on this dose. was to finish tomorrow. She tells me she has a pulmonology appt 08/17/[address] Benitez. Principal Diagnosis Acute exacerbation of end-stage COPD, acute on chronic respiratory failure, suspected PAT Discharge Exam General-alert and oriented x3, no fevers, no chills HEENT-head atraumatic and normocephalic, pupils equal and reactive to light, extraocular muscles intact Neck-no lymphadenopathy or thyromegaly, trachea midline Chest-markedly diminished breath sounds bilaterally. Midline rhonchi with forced cough. End expiratory bilateral wheezes. No dullness to percussion. Cardiac-regular rate and rhythm, normal S1 and S2 Abdomen-normal bowel sounds, nontender, no hepatosplenomegaly Extremities-no cyanosis, clubbing, or edema Neuro-cranial nerves II through XII intact, motor and sensory function within normal limits, strength symmetrical , no focal deficits Psych-normal affect, normal mood Discharge Data Allergies Allergy/AdvReac Type Severity Reaction Status Date / Time aspirin AdvReac Intermediate GI SYMPTOMS Verified 08/05/22 17:35 Consultations 08/14/22 13:00 ED Decision to Admit Stat 08/19/22 12:45 Consult Pulmonology Routine Hospital Course (1) COPD exacerbation: Improved. Parenteral steroid dosage tapering has commenced. Oral azithromycin has been switched to intravenous cefepime while hospitalized then will go back on oral azithromycin every Tuesday at the time of discharge.. Continue nebulizer treatments. CXR- no PNA. Sputum culture results nondiagnostic. Pulmonary medicine consultation appreciated. Home AVAPS has been arranged (2) Acute on chronic respiratory failure with hypoxia: on 3LNC O2 at home, on admission was requiring 4LNC at rest. She has occasional desaturations at bedtime which causes her significant anxiety. She was told to increase her oxygen supplementation temporarily as needed. (3) Leukocytosis: likely from steroid therapy. No appreciable pneumonia (4) Sleep apnea, obstructive: noncompliant with home CPAP (5) History of tobacco use: 40+ pack year history per patient. Quit smoking 3 years ago (6) Anxiety with depression: Chronic and stable. Continue Escitalopram 10mg q AM (7) Acid reflux: Stable. Continue Protonix 40mg BID (8) Paroxysmal atrial tachycardia: Suspected atrial dysrhythmia due to severity of underlying pulmonary disease. Diltiazem has been well-tolerated so far. Switched to CD formulation on August 19. Plan DVT proph- Lovenox SQ daily Dispo-discharge to home today, August 21. Home AVAPS therapy has been arranged. She will take a prednisone tapering dose and Ceftin for 5 more days. She will remain on diltiazem CD indefinitely Total Time Total Time Spent Total Time Spent (In Minutes): 40 minutes Discharge Plan Discharge Items Patient Disposition: Home - Self-Care Reason For Visit: COPD EXACERBATION Discharge Diagnosis: Acute exacerbation end-stage COPD, acute on chronic respiratory failure, suspected PAT Activity: Resume your previous activity Non-emergency contact: Primary Care Provider Call non-emergency contact if: you have any medication questions and your symptoms worsen Follow-up/Referrals: Roshan Crandall MD [Primary Care Provider] - Diet: Regular and Heart Healthy Addtl Attending Provider Instructions: Use home AVAPS therapy as directed by pulmonary medicine. Continue diltiazem CD indefinitely. Take prednisone in a tapering dose fashion as directed. Take Ceftin antibiotic for 5 more days Pending Studies at Discharge: No Stand-Alone Forms: My [facility] [employer], Smoking Cessation Medications and DC Order Prescriptions: New diltiazem HCl 180 mg Capsule,Extended Release 24hr 180 mg PO QAM Qty: 30 0RF cefdinir 300 mg capsule 300 mg PO BID 5 Days Qty: 10 0RF prednisone 10 mg tablet See Rx Instructions .ROUTE .COMPLEX Qty: 12 0RF Rx Instructions: 10 mg orally 3 times a day for 2 days, then 10 mg twice a day for 2 days, then 10 mg once a day for 2 days, then stop Continued Trelegy Ellipta 200-62.5-25 mcg blister with device 1 inh inhalation DAILY Qty: 60 5RF ipratropium-albuterol 0.5 mg-3 mg(2.5 mg base)/3 mL solution for nebulization 3 ml INH QID PRN (Reason: Shortness Of Breath) Qty: 360 5RF albuterol sulfate [ProAir HFA] 90 mcg/actuation HFA aerosol inhaler 2 puff Inhalation Q4 PRN (Reason: Shortness Of Breath Or Wheezing) Qty: 8.5 3RF (DME) CPAP Machine Misc See Rx Instructions .MEDSUPPLY Qty: 1 0RF Rx Instructions: Auto-titration CPAP with pressure range between 5 cm H2O and 15 cm H2O with humidification. Lifetime need. (DME) CPAP Supplies Misc See Rx Instructions .MEDSUPPLY Qty: 1 0RF Rx Instructions: Refitting of the mask. G47.33 ibuprofen 200 mg Tablet 400 mg PO Q6H PRN (Reason: Pain) lorazepam 0.5 mg tablet 0.5 mg PO Q8H PRN (Reason: anxiety) Qty: 7 0RF pantoprazole 40 mg Tablet,Delayed Release (Dr/Ec) 40 mg PO BID Qty: 60 0RF Rx Instructions: pt states she needs a new prescription for this med escitalopram oxalate [Lexapro] 10 mg tablet 10 mg PO QAM prednisone 20 mg tablet 20 mg PO DAILY Qty: 6 0RF Patient Comments: Pt finished course yesterday. Discharge Orders: Discharge Order (Routine); Ordered 08/21/22 Ordered By: Americo Traore Admission Data Admit Date/Time: 08/16/22 13:09 Attending Provider: Americo Traore Admit Provider: Kip Penny Primary Care Provider: Roshan Crandall Other Providers: Kip Penny ; Leno De Leon Coding Level of Care Code 62683 INP/OBS DISCH >30 MIN Diagnoses COPD exacerbation J44.1 Acute on chronic respiratory failure with hypoxia J96.21 Leukocytosis D72.829 Sleep apnea, obstructive G47.33 History of tobacco use Z87.891 Anxiety with depression F41.8 Acid reflux K21.9 Paroxysmal atrial tachycardia I47.1
[2022-08-21] MEDS: ENOXAPARIN INJ 40 MG/0.4 ML SYR SQ SCH (12:03)
== END 2022-08-21 13:21 | disposition home or self-care (01) | DRG 190 ==
LOC: 3N 10:27 → ED 10:27 → SUATTDRO 14:40 → 3N 23:52

== ENCOUNTER 2022-10-06 23:18 | Inpatient (IN) ==
[2022-10-06] MEDS ORDERED: ALBUT/IPRATROP 3MG/0.5MG NEB 3 ML VIAL ONE (23:46)
[2022-10-06] MEDS ORDERED: methylPREDNISolone 125 MG/2 ML VIAL IV STA (23:46)
[2022-10-06] MEDS ORDERED: ALBUT/IPRATROP 3MG/0.5MG NEB 3 ML VIAL NEB ONE (23:46)
[2022-10-06 23:57] LABS: Basophils # (auto) 0.08 K/uL (0-0.2); Basophils % (auto) 0.5 %; Eosinophils # (auto) 0.32 K/uL (0-0.50); Eosinophils % (auto) 2.1 %; Hematocrit (blood only) 36.1 % (37.0-47.0); Hemoglobin 12.1 g/dl (12.0-16.0); Immature Granulocytes # (auto) 0.05 K/uL (0.01-0.20); Immature Granulocytes % (auto) 0.3 %; Lymphocytes # (auto) 1.14 K/uL (1.2-3.4); Lymphocytes % (auto) 7.5 %; Mean Corpuscular Hgb Conc 33.5 g/dL (32.0-36.0); Mean Corpuscular Volume 89.6 fL (80.0-100.0); Mean Platelet Volume 9.4 fL (9.4-12.4); Monocytes # (auto) 0.86 K/uL (0.11-0.59); Monocytes % (auto) 5.6 %; Platelet Count 330 K/uL (130-400); RDW Coefficient of Variation 13.1 % (11.5-14.5); RDW Standard Deviation 42.9 fL (36.4-46.3); Red Blood Count 4.03 M/uL (4.20-5.40); White Blood Count 15.25 K/ul (4.8-10.8)
[2022-10-07] MEDS: SODIUM CHLORIDE 0.9% 1000ML 1,000 ML IV SCH ×2 (00:10→10:56)
--- NOTE | 2022-10-07 00:10 | Emergency Department Note ---
Impression & Plan Acute dyspnea, COPD exacerbation, Failure of outpatient treatment, Pneumonia ED Provider Note ED Provider Note NAME: AVIVA MIMS AGE:67 SEX: Female : 1955 ARRIVES VIA: private vehicle INFORMANT: Patient ED PROVIDER(s): Apple Handy DO CHIEF COMPLAINT: shortness of breath HPI: This is a 67-year-old female presents emerged department due to increased trouble breathing. Patient with a history of COPD and follows with pulmonology. She states she does wear home oxygen, 3 L/min. She states she did recently take a course of steroids and antibiotics for pneumonia. She states she also had an outpatient CAT scan of her chest. She states she is not currently taking any further steroids. She is using her inhalers as prescribed. She also took lorazepam this evening due to concern that her breathing was also contributing to her anxiety. Patient has previously been hospitalized due to her trouble br eathing and COPD. Patient states after her CT she was instructed to start taking levaquin. She has taken 3 doses so far. PAST MEDICAL HISTORY:See Below PAST SURGICAL HISTORY:See Below FAMILY HISTORY:See Below SOCIAL HISTORY:See Below HOME MEDICATIONS:See Below ALLERGIES:See Below VITALS:See Below PHYSICAL EXAMINATION: GENERAL: alert, uncomfortable appearing, well nourished, moderate distress, non- toxic EYE EXAM: normal conjunctiva, PERRL and EOM's grossly intact OROPHARYNX: no exudate, no erythema, lips, buccal mucosa, and tongue normal and mucous membranes are moist NECK: supple, no nuchal rigidity, no adenopathy, non-tender LUNGS: Diminished bilaterally to auscultation. Normal chest wall mechanics, tachypneic, faint end expiratory wheeze noted, no rales or rhonchi HEART: no murmurs, S1 normal and S2 normal ABDOMEN: abdomen soft, non-tender, normo-active bowel sounds, no masses, no rebound or guarding. BACK: Back is symmetrical on inspection and there is no deformity, no midline tenderness, no CVA tenderness. SKIN: no rashes, petechiae, orbruising UPPER EXTREMITIES: upper extremities are grossly normal. FROM, nml pulses b/l. LOWER EXTREMITIES: No pitting edema. FROM, nml pulses b/l. NEURO EXAM: Normal sensorium, cranial nerves II-XII grossly intact, normal speech, no facial droop,nogross weakness of arms, no gross weakness of legs. Gross sensation intact. No ataxia. Tremulous Vital Signs: reviewed and remarkable Differential Diagnosis: COPD exacerbation, pneumonia, medication ADR, noncompliance, CHF, ACS, URI, pleural effusion, as well as others were MEDICAL DECISION MAKING: This is a 67-year-old female with extensive past history of COPD/emphysema alrea dy on home oxygen who presents due to worsening shortness of breath. Patient was afebrile she was noted to be tachycardic and had saturations in the upper 80s on her usual 3 L. Oxygen was increased by nursing staff upon arrival here. Labs are drawn and sent, IV established, EKG and chest x-ray performed at bedside and interpreted by me and patient monitored on telemetry. She was started on continuous nebulizer treatment, IV fluids, and IV magnesium. After review of her recent pulmonary evaluation including an outpatient CT and the initiation of Levaquin for a pneumonia found on outpatient imaging, IV Solu- Medrol was added additionally. Patient had marked improvement of her breathing with the nebulizer treatment. Her accompanying tachycardia was very slow to improve. IV fluids were continued. She was given medication additionally for GERD that she felt was causing some chest discomfort, as well as a small dose of Ativan as she did complain of being very anxious about her condition. Patient monitored for several hours and while improved still felt unsafe going home as she had been following the instructions of pulmonology and had not yet improved. Case discussed with hospitalist for additional evaluation and management Consultation(s): 0505: Discussed with Dr. Smith for additional mgmt. ER Treatment Provided: See below 0112: Continuous nebulizer still running. Patient states she does feel improved. Diagnostics Interpreted By Me: -ECG: Sinus tachycardia at 105, normal axis, normal intervals, nonspecific ST/T wave changes -Cardiac Monitoring: An order was placed for continuous cardiac monitoring. The monitor shows a rate of 123 with sinus tachycardia rhythm. -Laboratory studies: As stated above and show below. -Imaging studies: X-ray Chest: A single view study of the chest was reviewed and was negative for cardiomegaly, focal infiltrate, effusion, pulmonary edema, or wide mediastinum. Slightly increased interstitial markings noted in the right lower lobe Triage Nursing Note Reviewed Prior/Outside Records Reviewed -outpatient pulmonology visit and CTA reviewed Procedures: [] Critical Care: [] Past Med/Surg History Medical History Anxiety with depression Asthma Chronic obstructive pulmonary disease with hypoxia 3L NC PRN Pulm - [facility] [place] COPD exacerbation COVID Family history of colon cancer Sleep apnea, obstructive Yeast infection Surgical History H/O partial thyroidectomy 1990s d/t hemorrhaging?--unknown cause, no meds History of broken collarbone sx to repair History of carpal tunnel surgery of right wrist History of partial hysterectomy History of tooth extraction all teeth Family History Mother , from ovarian cancer Cancer Ovarian Sister Cancer Ovarian Father COPD (chronic obstructive pulmonary disease) Other No family history of adverse response to anesthesia Social History Smoking Status: Former smoker Tobacco Type: Cigarettes Age Started Using Tobacco: 17; Age Quit Using Tobacco: 64; packs per day: 1; Cigarettes Per Day: 20; Second Hand Exposure: No; Do You Dip or Chew Tobacco: No; Tobacco Cessation Education Requested by Patient: No Hx Alcohol Use: No Hx Substance Use: No Preferred Language: Arabic 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 Ability: Effective Statistics Manager 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 Beliefs That Will Affect Care: None marital status: Current Living Situation: Family Current Living Situation Comment: Lives with daughter Virgen Other Information That Helps Us Care for You: No Feels Safe at Home: Yes Safety Concerns: Feels Safe At This Time Assistive Devices: Denture - Upper, Denture - Lower and Glasses Allergies Allergies Allergy/AdvReac Type Severity Reaction Status Date / Time aspirin AdvReac Intermediate GI SYMPTOMS Verified 08/05/22 17:35 Home Meds Home Medications Medication Instructions Recorded Confirmed ibuprofen 200 mg tablet 400 mg PO Q6H PRN Pain 12/17/21 10/06/22 escitalopram oxalate 10 mg tablet 15 mg PO QAM 08/05/22 10/06/22 (Lexapro) Previous Rx's Medication Instructions Recorded CPAP Machine #1 ea 12/06/19 CPAP Supplies #1 ea 05/11/21 lorazepam 0.5 mg tablet 0.5 mg PO Q8H PRN anxiety #7 tabs 05/17/22 pantoprazole 40 mg tablet,delayed 40 mg PO BID #60 tabs 05/18/22 release diltiazem HCl 180 mg 180 mg PO QAM #30 caps 08/21/22 capsule,extended release 24 hr ProAir HFA 90 mcg/actuation 2 puff inhalation Q4 PRN Shortness 09/03/22 aerosol inhaler (albuterol sulfate) Of Breath Or Wheezing #8.5 grams azithromycin 250 mg tablet 250 mg PO .COMPLEX #36 tabs 09/03/22 fluticasone fur. 200 mcg-umeclid 1 inh inhalation DAILY #60 ea 09/03/22 62.5 mcg-vilant 25 mcg inhalat.powder (Trelegy Ellipta) ipratropium 0.5 mg-albuterol 3 mg 3 ml inhalation QID PRN Shortness 09/03/22 (2.5 mg base)/3 mL nebulization Of Breath #360 mL soln Portable Oxygen #1 ea 09/15/22 levofloxacin 750 mg tablet 750 mg PO Q24H #7 tabs 10/04/22 Results & Data (ED) Vital Signs Vital Signs - 24 hr 10/06/22 23:21 10/06/22 23:39 10/06/22 23:56 Temperature 36.7 C Temperature Source Temporal Artery Scan Pulse Rate 121 H 119 H Pulse Rate [Apical] 110 H Pulse Rate from SpO2 Sensor Respiratory Rate 28 H 30 H Respiratory Effort / Characteristics Spontaneous Labored Short of Breath Respiratory Depth Respiratory Pattern Blood Pressure 159/91 H Blood Pressure [Left Arm] Blood Pressure Mean 113 Blood Pressure Mean [Left Arm] Pulse Oximetry 91 94 Oxygen Delivery Method Nasal Cannula Nasal Cannula Oxygen Flow Rate 3 4 Sepsis Recent Fever Within 48 Hours No Sepsis New/Unexplained Change in Mental Status No Sepsis Action Taken by Nursing No Action Required 10/06/22 23:38 10/07/22 00:00 10/07/22 01:54 Temperature Temperature Source Pulse Rate 121 H 106 H Pulse Rate [Apical] Pulse Rate from SpO2 Sensor 121 H 106 H Respiratory Rate 26 H 33 H Respiratory Effort / Characteristics Labored Short of Breath Respiratory Depth Normal Respiratory Pattern Regular Rapid/Shallow Tachypnea Blood Pressure Blood Pressure [Left Arm] Blood Pressure Mean Blood Pressure Mean [Left Arm] Pulse Oximetry 92 98 Oxygen Delivery Method Nasal Cannula Oxygen Flow Rate 3 Sepsis Recent Fever Within 48 Hours Sepsis New/Unexplained Change in Mental Status Sepsis Action Taken by Nursing 10/07/22 00:30 10/07/22 01:00 10/07/22 01:47 Temperature Temperature Source Pulse Rate 112 H 124 H 149 H Pulse Rate [Apical] Pulse Rate from SpO2 Sensor 112 H 124 H 150 H Respiratory Rate 39 H 26 H 63 H Respiratory Effort / Characteristics Respiratory Depth Respiratory Pattern Blood Pressure 156/84 H Blood Pressure [Left Arm] Blood Pressure Mean 108 Blood Pressure Mean [Left Arm] Pulse Oximetry 100 93 93 Oxygen Delivery Method Oxygen Flow Rate Sepsis Recent Fever Within 48 Hours Sepsis New/Unexplained Change in Mental Status Sepsis Action Taken by Nursing 10/07/22 02:00 10/07/22 02:30 10/07/22 03:00 Temperature Temperature Source Pulse Rate 145 H 140 H 131 H Pulse Rate [Apical] Pulse Rate from SpO2 Sensor 144 H 139 H 131 H Respiratory Rate 42 H 35 H 42 H Respiratory Effort / Characteristics Respiratory Depth Respiratory Pattern Blood Pressure Blood Pressure [Left Arm] Blood Pressure Mean Blood Pressure Mean [Left Arm] Pulse Oximetry 93 93 91 Oxygen Delivery Method Oxygen Flow Rate Sepsis Recent Fever Within 48 Hours Sepsis New/Unexplained Change in Mental Status Sepsis Action Taken by Nursing 10/07/22 03:30 10/07/22 03:42 10/07/22 04:00 Temperature Temperature Source Pulse Rate 123 H 126 H 105 H Pulse Rate [Apical] Pulse Rate from SpO2 Sensor 125 H 104 H Respiratory Rate 25 H 24 Respiratory Effort / Characteristics Respiratory Depth Respiratory Pattern Blood Pressure 145/87 H Blood Pressure [Left Arm] Blood Pressure Mean 106 Blood Pressure Mean [Left Arm] Pulse Oximetry 94 95 Oxygen Delivery Method Nasal Cannula Oxygen Flow Rate 3 Sepsis Recent Fever Within 48 Hours Sepsis New/Unexplained Change in Mental Status Sepsis Action Taken by Nursing 10/07/22 04:30 10/07/22 05:00 10/07/22 05:30 Temperature Temperature Source Pulse Rate 109 H 104 H 100 H Pulse Rate [Apical] Pulse Rate from SpO2 Sensor 109 H 105 H 100 H Respiratory Rate 23 21 29 H Respiratory Effort / Characteristics Respiratory Depth Respiratory Pattern Blood Pressure Blood Pressure [Left Arm] Blood Pressure Mean Blood Pressure Mean [Left Arm] Pulse Oximetry 93 93 93 Oxygen Delivery Method Oxygen Flow Rate Sepsis Recent Fever Within 48 Hours Sepsis New/Unexplained Change in Mental Status Sepsis Action Taken by Nursing 10/07/22 06:53 10/07/22 07:20 Temperature Temperature Source Pulse Rate Pulse Rate [Apical] 91 H 89 Pulse Rate from SpO2 Sensor Respiratory Rate 26 H 20 Respiratory Effort / Characteristics Respiratory Depth Respiratory Pattern Blood Pressure Blood Pressure [Left Arm] 139/79 129/74 Blood Pressure Mean Blood Pressure Mean [Left Arm] 99 92 Pulse Oximetry 95 95 Oxygen Delivery Method Nasal Cannula Nasal Cannula Oxygen Flow Rate 3 3 Sepsis Recent Fever Within 48 Hours Sepsis New/Unexplained Change in Mental Status Sepsis Action Taken by Nursing Laboratory Data 10/06/22 23:38 10/06/22 23:38 Lab Results 10/06/22 10/06/22 10/06/22 Range/Units 23:38 23:38 23:38 WBC 15.25 H (4.8-10.8) K/ul RBC 4.03 L (4.20-5.40) M/uL Hgb 12.1 (12.0-16.0) g/dl Hct 36.1 L (37.0-47.0) % MCV 89.6 (80.0-100.0) fL MCH 30.0 (25.0-34.0) pg MCHC 33.5 (32.0-36.0) g/dL RDW Std Deviation 42.9 (36.4-46.3) fL RDW Coeff of Audrey 13.1 (11.5-14.5) % Plt Count 330 (130-400) K/uL MPV 9.4 (9.4-12.4) fL Immature Gran % (Auto) 0.3 % Neut % (Auto) 84.0 % Lymph % (Auto) 7.5 % Loving % (Auto) 5.6 % Eos % (Auto) 2.1 % Baso % (Auto) 0.5 % Neut # (Auto) 12.80 H (1.40-6.50) K/uL Lymph # (Auto) 1.14 L (1.2-3.4) K/uL Loving # (Auto) 0.86 H (0.11-0.59) K/uL Eos # (Auto) 0.32 (0-0.50) K/uL Baso # (Auto) 0.08 (0-0.2) K/uL Immature Gran # (Auto) 0.05 (0.01-0.20) K/uL Sodium 137 (136-145) mmol/L Potassium 4.2 (3.5-5.1) mmol/L Chloride 103 (98-107) mmol/L Carbon Dioxide 26 (21-32) mmol/L Anion Gap 8 (3-11) BUN 19 (6-23) mg/dl Creatinine 0.92 (0.6-1.2) mg/dl Est Cr Clr Drug Dosing 55.3 ml/min Est GFR ( Amer) 74.2 ml/min Est GFR (Non-Af Amer) 64.0 ml/min BUN/Creatinine Ratio 20.7 H (10-20) Glucose 128 H (70-99(Fasting)) mg/dl Calcium 8.5 L (8.6-10.3) mg/dl Magnesium 1.8 (1.7-2.4) mg/dl Total Bilirubin 0.3 (0.2-1.0) mg/dl AST 17 (13-39) U/L ALT 19 (7-52) U/L Alkaline Phosphatase 88 (34-104) U/L Troponin I High Sens 5.0 (0-14) pg/ml Total Protein 6.7 (6.0-8.3) gm/dl Albumin 3.7 (3.4-5.0) gm/dl Globulin 3.0 (2.5-4.0) gm/dl Albumin/Globulin Ratio 1.2 (0.9-2) Lipase 27 (11-82) U/L TSH 0.876 (0.300-4.500) uIu/ml Adenovirus (PCR) (NotDetected) B. pertussis DNA (PCR) (NotDetected) B.parapertussis DNA PCR (NotDetected) C. pneumoniae DNA (PCR) (NotDetected) Coronavirus OC43 (PCR) (NotDetected) Coronavirus HKU1 (PCR) (NotDetected) Coronavirus 229E (PCR) (NotDetected) SARS-CoV-2 (PCR) (NotDetected) Coronavirus NL63 (PCR) (NotDetected) Human Metapneumovir PCR (NotDetected) Influenza Type A (PCR) (NotDetected) Influenza Type B (PCR) (NotDetected) M. pneumoniae (PCR) (NotDetected) Parainfluenza 1 (PCR) (NotDetected) Parainfluenza 2 (PCR) (NotDetected) Parainfluenza 3 (PCR) (NotDetected) Parainfluenza 4 (PCR) (NotDetected) RSV (PCR) (NotDetected) Entero/Rhino (PCR) (NotDetected) 10/07/22 Range/Units 00:35 WBC (4.8-10.8) K/ul RBC (4.20-5.40) M/uL Hgb (12.0-16.0) g/dl Hct (37.0-47.0) % MCV (80.0-100.0) fL MCH (25.0-34.0) pg MCHC (32.0-36.0) g/dL RDW Std Deviation (36.4-46.3) fL RDW Coeff of Audrey (11.5-14.5) % Plt Count (130-400) K/uL MPV (9.4-12.4) fL Immature Gran % (Auto) % Neut % (Auto) % Lymph % (Auto) % Loving % (Auto) % Eos % (Auto) % Baso % (Auto) % Neut # (Auto) (1.40-6.50) K/uL Lymph # (Auto) (1.2-3.4) K/uL Loving # (Auto) (0.11-0.59) K/uL Eos # (Auto) (0-0.50) K/uL Baso # (Auto) (0-0.2) K/uL Immature Gran # (Auto) (0.01-0.20) K/uL Sodium (136-145) mmol/L Potassium (3.5-5.1) mmol/L Chloride (98-107) mmol/L Carbon Dioxide (21-32) mmol/L Anion Gap (3-11) BUN (6-23) mg/dl Creatinine (0.6-1.2) mg/dl Est Cr Clr Drug Dosing ml/min Est GFR ( Amer) ml/min Est GFR (Non-Af Amer) ml/min BUN/Creatinine Ratio (10-20) Glucose (70-99(Fasting)) mg/dl Calcium (8.6-10.3) mg/dl Magnesium (1.7-2.4) mg/dl Total Bilirubin (0.2-1.0) mg/dl AST (13-39) U/L ALT (7-52) U/L Alkaline Phosphatase (34-104) U/L Troponin I High Sens (0-14) pg/ml Total Protein (6.0-8.3) gm/dl Albumin (3.4-5.0) gm/dl Globulin (2.5-4.0) gm/dl Albumin/Globulin Ratio (0.9-2) Lipase (11-82) U/L TSH (0.300-4.500) uIu/ml Adenovirus (PCR) Not Detected (NotDetected) B. pertussis DNA (PCR) Not Detected (NotDetected) B.parapertussis DNA PCR Not Detected (NotDetected) C. pneumoniae DNA (PCR) Not Detected (NotDetected) Coronavirus OC43 (PCR) Not Detected (NotDetected) Coronavirus HKU1 (PCR) Not Detected (NotDetected) Coronavirus 229E (PCR) Not Detected (NotDetected) SARS-CoV-2 (PCR) Not Detected (NotDetected) Coronavirus NL63 (PCR) Not Detected (NotDetected) Human Metapneumovir PCR Not Detected (NotDetected) Influenza Type A (PCR) Not Detected (NotDetected) Influenza Type B (PCR) Not Detected (NotDetected) M. pneumoniae (PCR) Not Detected (NotDetected) Parainfluenza 1 (PCR) Not Detected (NotDetected) Parainfluenza 2 (PCR) Not Detected (NotDetected) Parainfluenza 3 (PCR) Not Detected (NotDetected) Parainfluenza 4 (PCR) Not Detected (NotDetected) RSV (PCR) Not Detected (NotDetected) Entero/Rhino (PCR) Not Detected (NotDetected) Administered Medications Sodium Chloride (Nss 1000ml) 1,000 mls @ 125 mls/hr IV .Q8H QIAN Stop: 11/05/22 23:44 Last Admin: 10/07/22 00:10 Dose: 125 mls/hr Documented By: PINA Discontinued Medications Albuterol (Albut/Ipratrop 3mg/0.5mg Neb 3 Ml Vial) Confirm Administered Dose 12 ml .ROUTE .STK-MED ONE Stop: 10/06/22 23:47 Last Admin: 10/06/22 23:53 Dose: Not Given Documented By: ANTONIA Albuterol (Albut/Ipratrop 3mg/0.5mg Neb 3 Ml Vial) 12 ml NEB ONE ONE; Protocol Stop: 10/06/22 23:47 Last Admin: 10/06/22 23:50 Dose: 12 ml Documented By: ANTONIA Magnesium Sulfate/Dextrose (Magnesium Sulfate / D5w) 1 gm in 100 mls @ 100 mls/hr IV NOW STA Stop: 10/07/22 01:18 Last Infusion: 10/07/22 01:59 Dose: 0 mls/hr Documented By: Admin: 10/07/22 00:30 Dose: 100 mls/hr Documented By: PINA Famotidine (Pepcid 20mg Iv Push) 20 mg in 5 mls @ 2.5 mls/min IV NOW STA Stop: 10/07/22 02:41 Last Admin: 10/07/22 03:00 Dose: 2.5 mls/min Documented By: PINA Acetaminophen (Ofirmev) 1,000 mg in 100 mls @ 400 mls/hr IV NOW STA Stop: 10/07/22 02:54 Last Infusion: 10/07/22 03:18 Dose: 0 mls/hr Documented By: Admin: 10/07/22 03:00 Dose: 400 mls/hr Documented By: PINA Lorazepam (Lorazepam 2 Mg/1 Ml Vial) 0.5 mg IV NOW STA Stop: 10/07/22 03:50 Last Admin: 10/07/22 03:58 Dose: 0.5 mg Documented By: PINA Methylprednisolone (Methylprednisolone 125 Mg/2 Ml Vial) 60 mg IV NOW STA Stop: 10/06/22 23:47 Last Admin: 10/07/22 00:10 Dose: 60 mg Documented By: PINA Imaging Data Radiologist's Impression: Chest X-Ray 10/06/22 23:46 SINGLE VIEW CHEST CLINICAL HISTORY: Dyspnea FINDINGS: An AP, portable, upright chest radiograph is compared to study dated 08/14/2022 and correlated with chest CT dated 10/04/2022. The cardiomediastinal silhouette is unremarkable noting atherosclerotic calcification of the thoracic aorta. Advanced emphysema and chronic interstitial thickening is similar to previous. Foci of parenchymal scarring are seen throughout both lungs. Bibasilar opacities are noted. No large pleural effusion or pneumothorax is seen. The skeletal structures are osteopenic. The bony thorax is grossly intact. IMPRESSION: 1. Advanced emphysema. 2. Bibasilar opacities may represent scarring/atelectasis. Correlate clinically for evidence of a superimposed pneumonitis. 3. Nodular foci seen on the recent chest CT are not visualized by x-ray. ACT 112: Negative or not required by law. Electronically signed by: Salbador Wilkerson M.D. 10/07/2022 7:17 AM Lumbar Spine X-Ray 10/07/22 00:58 LUMBAR SPINE 5 VIEWS CLINICAL HISTORY: Atraumatic low back pain. FINDINGS: 5 views of the lumbar spine are correlated with chest CT dated 10/04/2022.. The skeletal structures are osteopenia. There is no radiographic evidence of fracture or malalignment. There is a mild chronic superior endplate compression deformity of L1. Vertebral body height is otherwise maintained throughout the lumbar spine. Alignment is preserved. Small anterior and lateral marginal osteophytes are seen throughout. The transverse and spinous processes are intact. There is no radiographic evidence of spondylolysis. Facet arthropathy is seen in the lower lumbar region. There is minimal degenerative disc space narrowing. The visualized bony pelvis appears intact. Sclerotic changes noted in the sacroiliac joints. There is a nonobstructed abdominal bowel gas pattern. There is moderate atherosclerotic calcification of the abdominal aorta. IMPRESSION: 1. No acute bony abnormality is seen involving the lumbar spine. 2. A mild chronic superior endplate compression deformity of L1 is similar to previous. 3. Osteopenia and spondylotic changes as above. ACT 112: Negative or not required by law. Electronically signed by: Salbador Wilkerson M.D. 10/07/2022 7:05 AM Discharge Plan Visit Data Chief Complaint: Respiratory Distress Stated Complaint: SOB,TROUBLE BREATHING ED Provider: Apple Handy Discharge Problem: Acute dyspnea, COPD exacerbation, Failure of outpatient treatment, Pneumonia Patient Disposition: Admitted As Inpatient
[2022-10-07 00:16] LABS: Albumin Globulin Ratio 1.2 (0.9-2); Albumin Level 3.7 gm/dl (3.4-5.0); BUN Creatinine Ratio 20.7 (10-20); Bilirubin,Total 0.3 mg/dl (0.2-1.0); Calcium 8.5 mg/dl (8.6-10.3); Creatinine Clr Calc Pharmacy 55.3 ml/min; Est GFR (African American) 74.2 ml/min; Magnesium 1.8 mg/dl (1.7-2.4); Potassium 4.2 mmol/L (3.5-5.1); Total Protein 6.7 gm/dl (6.0-8.3)
[2022-10-07] MEDS ORDERED: MAGNESIUM SULFATE / D5W 1 GM/100 ML BAG IV STA (00:19)
[2022-10-07 01:29] LABS: Adenovirus PCR Not Detected (NotDetected); Bordetella parapertussis PCR Not Detected (NotDetected); Bordetella pertussis PCR Not Detected (NotDetected); Chlamydia pneumoniae PCR Not Detected (NotDetected); Coronavirus 229E PCR Not Detected (NotDetected); Coronavirus CoV-2 (COVID19)PCR Not Detected (NotDetected); Coronavirus HKU1 PCR Not Detected (NotDetected); Coronavirus NL63 PCR Not Detected (NotDetected); Coronavirus OC43PCR Not Detected (NotDetected); Human Metapneumovirus PCR Not Detected (NotDetected); Influenza A PCR Not Detected (NotDetected); Influenza B PCR Not Detected (NotDetected); Mycoplasma pneumoniae PCR Not Detected (NotDetected); Parainfluenza Virus 1 PCR Not Detected (NotDetected); Parainfluenza Virus 2 PCR Not Detected (NotDetected); Parainfluenza Virus 3 PCR Not Detected (NotDetected); Parainfluenza Virus 4 PCR Not Detected (NotDetected); Respiratory Syncytial VirusPCR Not Detected (NotDetected); Rhinovirus/Enterovirus PCR Not Detected (NotDetected)
[2022-10-07] MEDS ORDERED: ACETAMINOPHEN 1,000 MG/100 ML VIAL IV STA (02:40)
[2022-10-07] MEDS ORDERED: FAMOTIDINE 20MG IV PUSH 20 MG/5 ML SYR IV STA (02:40)
[2022-10-07] MEDS ORDERED: LORazepam 2 MG/1 ML VIAL IV STA (03:49)
--- NOTE | 2022-10-07 05:38 | History & Physical Report ---
Date of Service October 07, 2022 Assessment & Plan (1) Acute exacerbation of chronic obstructive pulmonary disease: Plan: 67 yo female with PMHx COPD, anxiety, depression, GERD, and afib presents with shortness of breath. #Acute on chronic COPD in exacerbation #Acute respiratory failure with hypoxia and hypercapnia -Has been sob the past few weeks but started having increased sob yesterday. Follows with pulmonology. On azithromycin MWF prophylactically since last month. S/p outpatient prednisone course. Vitals improving since arrival. -CXR without evidence of focal pneumonia. Increased interstitial markings in RLL. -WBC 15, suspect due to inflammatory response. -started a few days ago on Levaquin by pulmonology, continue for now but will defer to them on abx regimen. Cautious of prolonged QT on azithromycin and Levaquin. QTc 444, stable. -trilegy, duoneb q4h mariana, incentive spirometer -IV solumedrol 60mg x1 in ED. Cont. daily. -on 3L O2 at home, cont. -Mucinex 1200mg po BID #Anxiety #Depression -cont. home lexapro #Afib, chronic -not on anticoagulation -cont. home diltiazem #GERD -cont. home PPI DVT ppx: Lovenox FEN/GI: Regular Code Status: Full Dispo: PCU (2) Anxiety with depression: (3) Acute respiratory failure with hypoxia and hypercapnia: (4) History of tobacco use: (5) SOB (shortness of breath): (6) Paroxysmal atrial tachycardia: History of Present Illness Chief Complaint: shortness of breath Primary Care Provider: Roshan Crandall MD 67 yo female with PMHx COPD, anxiety, depression, GERD, and afib presents with shortness of breath. Yesterday afternoon patient started experiencing increased shortness of breath. She has had shortness of breath for the past few weeks and follows with pulmonology for her COPD. Last month she was started on prophylactic azithromycin MWF schedule. Last week she completed a prednisone taper and few days ago was also started on Levaquin for possible pneumonia. She denies headache, chest pain, abdominal pain, nausea, vomiting, diarrhea, dysuria Chronically on 3L O2 at home. Compliant with home inhalers. Allergies Allergy/AdvReac Type Severity Reaction Status Date / Time aspirin AdvReac Intermediate GI SYMPTOMS Verified 08/05/22 17:35 Home Medications Medication Instructions Recorded Confirmed Type CPAP Machine #1 ea 12/06/19 10/06/22 Rx CPAP Supplies #1 ea 05/11/21 10/06/22 Rx ibuprofen 200 mg tablet 400 mg PO Q6H PRN Pain 12/17/21 10/06/22 History lorazepam 0.5 mg tablet 0.5 mg PO Q8H PRN anxiety #7 tabs 05/17/22 10/06/22 Rx pantoprazole 40 mg tablet,delayed 40 mg PO BID #60 tabs 05/18/22 10/06/22 Rx release escitalopram oxalate 10 mg tablet 15 mg PO QAM 08/05/22 10/06/22 History (Lexapro) diltiazem HCl 180 mg 180 mg PO QAM #30 caps 08/21/22 10/06/22 Rx capsule,extended release 24 hr ProAir HFA 90 mcg/actuation 2 puff inhalation Q4 PRN Shortness 09/03/22 10/06/22 Rx aerosol inhaler (albuterol sulfate) Of Breath Or Wheezing #8.5 grams azithromycin 250 mg tablet 250 mg PO .COMPLEX #36 tabs 09/03/22 10/06/22 Rx fluticasone fur. 200 mcg-umeclid 1 inh inhalation DAILY #60 ea 09/03/22 10/06/22 Rx 62.5 mcg-vilant 25 mcg inhalat.powder (Trelegy Ellipta) ipratropium 0.5 mg-albuterol 3 mg 3 ml inhalation QID PRN Shortness 09/03/22 10/06/22 Rx (2.5 mg base)/3 mL nebulization Of Breath #360 mL soln Portable Oxygen #1 ea 09/15/22 10/06/22 Rx levofloxacin 750 mg tablet 750 mg PO Q24H #7 tabs 10/04/22 10/06/22 Rx Past Med/Surg History Medical History (Updated 10/07/22 @ 16:21 by Leno De Leon MD) Anxiety with depression Asthma Chronic obstructive pulmonary disease with hypoxia 3L NC PRN Pulm - Min [place] COPD exacerbation COVID Family history of colon cancer Goals of care, counseling/discussion Sleep apnea, obstructive Yeast infection Surgical History H/O partial thyroidectomy 1990s d/t hemorrhaging?--unknown cause, no meds History of broken collarbone sx to repair History of carpal tunnel surgery of right wrist History of partial hysterectomy History of tooth extraction all teeth Family History Mother , from ovarian cancer Cancer Ovarian Sister Cancer Ovarian Father COPD (chronic obstructive pulmonary disease) Other No family history of adverse response to anesthesia Social History Smoking Status: Former smoker Tobacco Type: Cigarettes Age Started Using Tobacco: 17; Age Quit Using Tobacco: 64; packs per day: 1; Cigarettes Per Day: 20; Second Hand Exposure: No; Do You Dip or Chew Tobacco: No; Tobacco Cessation Education Requested by Patient: No Hx Alcohol Use: No Hx Substance Use: No Preferred Language: Fijian 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 Ability: Effective [employer] Staff 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 Beliefs That Will Affect Care: None marital status: Current Living Situation: Family Current Living Situation Comment: Lives with daughter Virgen Other Information That Helps Us Care for You: No Feels Safe at Home: Yes Safety Concerns: Feels Safe At This Time Assistive Devices: Denture - Upper, Denture - Lower and Glasses Review of Systems Review of Systems: All systems reviewed & are unremarkable except as noted in HPI & below Physical Exam Physical Exam: Constitutional: in no acute distress, pleasant. AOx3. Vitals as above. HEENT: No scleral injection or discharge.Dry mucous membranes. Clear oropharynx. Neck: Supple without lymphadenopathy or thyromegaly. Trachea midline. Lungs: Clear to auscultation bilaterally with good effort. No wheezing/rales/rhocni. Cardiac: Regular rate and rhythm.No murmurs. No extremity edema. 2+ distal peripheral pulses. Abdomen: Bowel sounds present. Mild diffuse tenderness. Soft and nondistended.No guarding or rebound tenderness. No hepatosplenomegaly. MSK: No cyanosis or clubbing. Skin: No abnormal rashes, warm, dry. Neurologic: no focal deficits Results & Data Results & Data Vital Signs (Past 12 Hours) Vital Signs Temp Pulse Pulse Resp BP Pulse Ox O2 Del Method 10/07/22 04:00 105 H 24 95 Nasal Cannula 10/07/22 03:42 126 H 10/07/22 03:30 123 H 25 H 145/87 H 94 10/07/22 03:00 131 H 42 H 91 10/07/22 02:30 140 H 35 H 93 10/07/22 02:00 145 H 42 H 93 10/07/22 01:47 149 H 63 H 156/84 H 93 10/07/22 01:00 124 H 26 H 93 10/07/22 00:30 112 H 39 H 100 10/07/22 01:54 Nasal Cannula 10/07/22 00:00 106 H 33 H 98 10/06/22 23:38 121 H 26 H 92 10/06/22 23:56 110 H 30 H 94 Nasal Cannula 10/06/22 23:39 119 H 10/06/22 23:21 36.7 C 121 H 28 H 159/91 H 91 Nasal Cannula O2 Flow Rate 10/07/22 04:00 3 10/07/22 03:42 10/07/22 03:30 10/07/22 03:00 10/07/22 02:30 10/07/22 02:00 10/07/22 01:47 10/07/22 01:00 10/07/22 00:30 10/07/22 01:54 3 10/07/22 00:00 10/06/22 23:38 10/06/22 23:56 4 10/06/22 23:39 10/06/22 23:21 3 Laboratory Results Laboratory Results WBC 15.25 K/ul (4.8-10.8) H 10/06/22 23:38 RBC 4.03 M/uL (4.20-5.40) L 10/06/22 23:38 Hgb 12.1 g/dl (12.0-16.0) 10/06/22 23:38 Hct 36.1 % (37.0-47.0) L 10/06/22 23:38 MCV 89.6 fL (80.0-100.0) 10/06/22 23:38 MCH 30.0 pg (25.0-34.0) 10/06/22 23:38 MCHC 33.5 g/dL (32.0-36.0) 10/06/22 23:38 RDW Std Deviation 42.9 fL (36.4-46.3) 10/06/22 23:38 RDW Coeff of Audrey 13.1 % (11.5-14.5) 10/06/22 23:38 Plt Count 330 K/uL (130-400) 10/06/22 23:38 MPV 9.4 fL (9.4-12.4) 10/06/22 23:38 Immature Gran % (Auto) 0.3 % 10/06/22 23:38 Neut % (Auto) 84.0 % 10/06/22 23:38 Lymph % (Auto) 7.5 % 10/06/22 23:38 [place] % (Auto) 5.6 % 10/06/22 23:38 Eos % (Auto) 2.1 % 10/06/22 23:38 Baso % (Auto) 0.5 % 10/06/22 23:38 Neut # (Auto) 12.80 K/uL (1.40-6.50) H 10/06/22 23:38 Lymph # (Auto) 1.14 K/uL (1.2-3.4) L 10/06/22 23:38 [place] # (Auto) 0.86 K/uL (0.11-0.59) H 10/06/22 23:38 Eos # (Auto) 0.32 K/uL (0-0.50) 10/06/22 23:38 Baso # (Auto) 0.08 K/uL (0-0.2) 10/06/22 23:38 Immature Gran # (Auto) 0.05 K/uL (0.01-0.20) 10/06/22 23:38 Sodium 137 mmol/L (136-145) 10/06/22 23:38 Potassium 4.2 mmol/L (3.5-5.1) 10/06/22 23:38 Chloride 103 mmol/L (98-107) 10/06/22 23:38 Carbon Dioxide 26 mmol/L (21-32) 10/06/22 23:38 Anion Gap 8 (3-11) 10/06/22 23:38 BUN 19 mg/dl (6-23) 10/06/22 23:38 Creatinine 0.92 mg/dl (0.6-1.2) 10/06/22 23:38 Est Cr Clr Drug Dosing 55.3 ml/min 10/06/22 23:38 Est GFR ( Amer) 74.2 ml/min 10/06/22 23:38 Est GFR (Non-Af Amer) 64.0 ml/min 10/06/22 23:38 BUN/Creatinine Ratio 20.7 (10-20) H 10/06/22 23:38 Glucose 128 mg/dl (70-99(Fasting)) H 10/06/22 23:38 Calcium 8.5 mg/dl (8.6-10.3) L 10/06/22 23:38 Magnesium 1.8 mg/dl (1.7-2.4) 10/06/22 23:38 Total Bilirubin 0.3 mg/dl (0.2-1.0) 10/06/22 23:38 AST 17 U/L (13-39) 10/06/22 23:38 ALT 19 U/L (7-52) 10/06/22 23:38 Alkaline Phosphatase 88 U/L (34-104) 10/06/22 23:38 Troponin I High Sens 5.0 pg/ml (0-14) 10/06/22 23:38 Total Protein 6.7 gm/dl (6.0-8.3) 10/06/22 23:38 Albumin 3.7 gm/dl (3.4-5.0) 10/06/22 23:38 Globulin 3.0 gm/dl (2.5-4.0) 10/06/22 23:38 Albumin/Globulin Ratio 1.2 (0.9-2) 10/06/22 23:38 Lipase 27 U/L (11-82) 10/06/22 23:38 TSH 0.876 uIu/ml (0.300-4.500) 10/06/22 23:38 Adenovirus (PCR) Not Detected (NotDetected) 10/07/22 00:35 B. pertussis DNA (PCR) Not Detected (NotDetected) 10/07/22 00:35 B.parapertussis DNA PCR Not Detected (NotDetected) 10/07/22 00:35 C. pneumoniae DNA (PCR) Not Detected (NotDetected) 10/07/22 00:35 Coronavirus OC43 (PCR) Not Detected (NotDetected) 10/07/22 00:35 Coronavirus HKU1 (PCR) Not Detected (NotDetected) 10/07/22 00:35 Coronavirus 229E (PCR) Not Detected (NotDetected) 10/07/22 00:35 SARS-CoV-2 (PCR) Not Detected (NotDetected) 10/07/22 00:35 Coronavirus NL63 (PCR) Not Detected (NotDetected) 10/07/22 00:35 Human Metapneumovir PCR Not Detected (NotDetected) 10/07/22 00:35 Influenza Type A (PCR) Not Detected (NotDetected) 10/07/22 00:35 Influenza Type B (PCR) Not Detected (NotDetected) 10/07/22 00:35 M. pneumoniae (PCR) Not Detected (NotDetected) 10/07/22 00:35 Parainfluenza 1 (PCR) Not Detected (NotDetected) 10/07/22 00:35 Parainfluenza 2 (PCR) Not Detected (NotDetected) 10/07/22 00:35 Parainfluenza 3 (PCR) Not Detected (NotDetected) 10/07/22 00:35 Parainfluenza 4 (PCR) Not Detected (NotDetected) 10/07/22 00:35 RSV (PCR) Not Detected (NotDetected) 10/07/22 00:35 Entero/Rhino (PCR) Not Detected (NotDetected) 10/07/22 00:35 Supervising Physician Co-Signing Physician Notes Attending addendum: I have physically seen this patient, have supervised the medical residents activities, and agree with the H&P unless as otherwise noted. Assessment and Plan: Acute on chronic respiratory failure with hypoxia/COPD exacerbation- Symptoms for few weeks duration Patient had been on azithromycin Tuesday, Tuesday and Tuesday for prophylaxis, and then was changed to Levaquin daily by pulmonology outpatient Patient has had persistent and worsening symptoms Levofloxacin 5 mg IV daily Duonebs every 4 hours while awake and every 2 hours when necessary. Trelegy Ellipta Incentive spirometry Given Solu-Medrol 60 mg IV x1 in the ED, continue 40 mg IV every 8 hours Guaifenesin extended release 12 mg p.o. twice daily Titrate oxygen for pulse ox 92% Consult pulmonology Chronic A-fib- Continue diltiazem Consideration for long-term anticoagulation will be left to her outpatient physicians who know her Anxiety with depression- Continue Lexapro GERD- Continue pantoprazole 40 mg twice daily Remaining orders and notations as noted Resident Activity Tracking Resident Involvement: Resident Care Provided Care Provided: Adult Hospital Medicine
--- NOTE | 2022-10-07 07:07 | XRay Report ---
LUMBAR SPINE 5 VIEWS CLINICAL HISTORY: Atraumatic low back pain. FINDINGS: 5 views of the lumbar spine are correlated with chest CT dated 10/04/2022.. The skeletal st ructures are osteopenia. There is no radiographic evidence of fracture or malalignment. There is a mi ld chronic superior endplate compression deformity of L1. Vertebral body height is otherwise maintain ed throughout the lumbar spine. Alignment is preserved. Small anterior and lateral marginal osteophyt es are seen throughout. The transverse and spinous processes are intact. There is no radiographic srikanth dence of spondylolysis. Facet arthropathy is seen in the lower lumbar region. There is minimal degene rative disc space narrowing. The visualized bony pelvis appears intact. Sclerotic changes noted in th e sacroiliac joints. There is a nonobstructed abdominal bowel gas pattern. There is moderate atherosc lerotic calcification of the abdominal aorta. IMPRESSION: 1. No acute bony abnormality is seen involving the lumbar spine. 2. A mild chronic superior endplate compression deformity of L1 is similar to previous. 3. Osteopenia and spondylotic changes as above. ACT 112: Negative or not required by law. Electronically signed by: Salbador Wilkerson M.D. 10/07/2022 7:05 AM
--- NOTE | 2022-10-07 07:18 | XRay Report ---
SINGLE VIEW CHEST CLINICAL HISTORY: Dyspnea FINDINGS: An AP, portable, upright chest radiograph is compared to study dated 08/14/2022 and correlat ed with chest CT dated 10/04/2022. The cardiomediastinal silhouette is unremarkable noting atheroscler otic calcification of the thoracic aorta. Advanced emphysema and chronic interstitial thickening is s imilar to previous. Foci of parenchymal scarring are seen throughout both lungs. Bibasilar opacities are noted. No large pleural effusion or pneumothorax is seen. The skeletal structures are osteopenic. The bony thorax is grossly intact. IMPRESSION: 1. Advanced emphysema. 2. Bibasilar opacities may represent scarring/atelectasis. Correlate clinically for evidence of a sup erimposed pneumonitis. 3. Nodular foci seen on the recent chest CT are not visualized by x-ray. ACT 112: Negative or not required by law. Electronically signed by: Salbador Wilkerson M.D. 10/07/2022 7:17 AM
[2022-10-07] MEDS ORDERED: ONDANSETRON 4 MG OD TAB PO PRN (07:58)
[2022-10-07] MEDS ORDERED: ACETAMINOPHEN 325 MG TAB PO PRN (07:58)
[2022-10-07] MEDS ORDERED: POLYETHYLENE (MIRALAX) 17 GM PACK PO PRN (07:58)
[2022-10-07] MEDS ORDERED: levoFLOXacin 750 MG TAB PO SCH (09:00)
[2022-10-07] MEDS ORDERED: FLUTICASONE FUROATE 200MCG 14 PUFFS/INHALER INH SCH (09:00)
[2022-10-07] MEDS ORDERED: NON-FORMULARY MEDICATION (Fluticasone-Umeclidin-Vilanter [Trelegy Ellipta] 200-62.5-25 mcg INH SCH (09:00)
[2022-10-07] MEDS ORDERED: methylPREDNISolone 60 MG in SYRINGE 0 ML IV SCH (09:00)
[2022-10-07] MEDS ORDERED: UMECLIDINIUM/VILANTEROL 62.5/25MCG 7 PUFFS/INHALER INH SCH (09:00)
[2022-10-07] MEDS: ESCITALOPRAM OXALATE 10 MG TAB PO SCH (09:15)
[2022-10-07] MEDS: dilTIAZem HCL 180 MG CAPCR PO SCH (09:15)
[2022-10-07] MEDS: PANTOprazole 40 MG TAB PO SCH ×2 (09:16→20:39)
[2022-10-07] MEDS: guaiFENesin 600 MG TABCR PO SCH ×2 (09:16→20:39)
[2022-10-07] MEDS: ENOXAPARIN INJ 40 MG/0.4 ML SYR SQ SCH (09:17)
--- NOTE | 2022-10-07 10:51 | Pulmonary Consultation ---
Date of Consultation October 07, 2022 Assessment & Plan (1) Pneumonia: (2) Chronic respiratory failure with hypoxia: (3) Acute exacerbation of chronic obstructive pulmonary disease: (4) Goals of care, counseling/discussion: Plan 67-year-old female with a history of oxygen dependent COPD presenting to the hospital due to pneumonia and COPD exacerbation. She is being followed by [facility] for possible lung denervation/transplant candidacy. -Discontinue Levaquin. Discontinue azithromycin. -Start cefepime and doxycycline -Discontinue powdered inhalers. Start formoterol and budesonide nebulized twice daily. Albuterol/ipratropium every 4 hours as needed for wheezing -Continue IV Solu-Medrol and a dose of 60 mg daily. Transition to p.o. prednisone in the next 1 to 2 days. -Initiate pulmonary clearance with percussive vest therapy 4 times daily and hypertonic saline twice daily. -Consult palliative care given advanced oxygen dependent COPD with recurrent exacerbations and possible outpatient palliative follow-up. -Patient indicated to me that she would like to be DNI in the event of respiratory failure, but she indicated to palliative care that she would like to be a full code. Will defer CODE STATUS to palliative care. She is also going to discuss this with her family. -Patient encouraged to bring her CPAP from home to utilize while in the hospital so that we can monitor her saturations and response to CPAP therapy. Thank you for allowing us to participate in the care of the patient. We will continue to follow with you. History of Present Illness Reason for Consultation: "COPD exacerbation" Attending Physician: Kip Penny MD History of Present Illness 67-year-old female with a past medical history of COPD (PFT 07/30/2022 with FEV1 of 0.95 L, 41% and DLCO 28%) who is followed by Dr. Gama as an outpatient. She has a [id number] smoking history. She was actually seen by PILY javier 10/04/[address] chest with PE protocol due to concerns of pulmonary embolism versus pneumonia. Chest CTA was personally reviewed by me which revealed prominent mediastinal lymph nodes and diffuse severe centrilobular emphysema. Also seen were several airspace opacities in the medial basal segment of the right lower lobe. She was admitted overnight by the resident service for increasing shortness of breath and cough and sputum production. She completed outpatient prednisone taper and was recently started on oral Levaquin as an outpatient. The resident service ordered Levaquin 750 mg daily and IV Solu-Medrol 60 mg daily while in inpatient. Labs are suggestive of a leukocytosis of 15,250. Absolute eosinophil count of 320. Procalcitonin less than 0.05. She had an oxygen walk test in the office 09/03/2022 which revealed desaturations on room air and she required 3 L of oxygen with ambulation to maintain sats above 88%. She notes that she has been on oxygen for the past year. She also carries a history of ALHAJI based on polysomnography from 2019 which revealed an AHI of 9.5. Patient notes that she has not used her CPAP in about 2 weeks due to concerns of oxygen desaturations. She does have oxygen bled into her CPAP. She has had nearly monthly hospitalizations since February of last year for COPD exacerbations. Allergies Allergy/AdvReac Type Severity Reaction Status Date / Time aspirin AdvReac Intermediate GI SYMPTOMS Verified 08/05/22 17:35 Home Medications Medication Instructions Recorded Confirmed Type CPAP Machine #1 ea 12/06/19 10/06/22 Rx CPAP Supplies #1 ea 05/11/21 10/06/22 Rx ibuprofen 200 mg tablet 400 mg PO Q6H PRN Pain 12/17/21 10/06/22 History lorazepam 0.5 mg tablet 0.5 mg PO Q8H PRN anxiety #7 tabs 05/17/22 10/06/22 Rx pantoprazole 40 mg tablet,delayed 40 mg PO BID #60 tabs 05/18/22 10/06/22 Rx release escitalopram oxalate 10 mg tablet 15 mg PO QAM 08/05/22 10/06/22 History (Lexapro) diltiazem HCl 180 mg 180 mg PO QAM #30 caps 08/21/22 10/06/22 Rx capsule,extended release 24 hr ProAir HFA 90 mcg/actuation 2 puff inhalation Q4 PRN Shortness 09/03/22 10/06/22 Rx aerosol inhaler (albuterol sulfate) Of Breath Or Wheezing #8.5 grams azithromycin 250 mg tablet 250 mg PO .COMPLEX #36 tabs 09/03/22 10/06/22 Rx fluticasone fur. 200 mcg-umeclid 1 inh inhalation DAILY #60 ea 09/03/22 10/06/22 Rx 62.5 mcg-vilant 25 mcg inhalat.powder (Trelegy Ellipta) ipratropium 0.5 mg-albuterol 3 mg 3 ml inhalation QID PRN Shortness 09/03/22 10/06/22 Rx (2.5 mg base)/3 mL nebulization Of Breath #360 mL soln Portable Oxygen #1 ea 09/15/22 10/06/22 Rx levofloxacin 750 mg tablet 750 mg PO Q24H #7 tabs 10/04/22 10/06/22 Rx Patient History Medical History (Updated 10/07/22 @ 16:21 by Leno De Leon MD) Anxiety with depression Asthma Chronic obstructive pulmonary disease with hypoxia 3L NC PRN Pulm - Min [place] COPD exacerbation COVID Family history of colon cancer Goals of care, counseling/discussion Sleep apnea, obstructive Yeast infection Surgical History H/O partial thyroidectomy 1990s d/t hemorrhaging?--unknown cause, no meds History of broken collarbone sx to repair History of carpal tunnel surgery of right wrist History of partial hysterectomy History of tooth extraction all teeth Family History Mother , from ovarian cancer Cancer Ovarian Sister Cancer Ovarian Father COPD (chronic obstructive pulmonary disease) Other No family history of adverse response to anesthesia Social History Smoking Status: Former smoker Tobacco Type: Cigarettes Age Started Using Tobacco: 17; Age Quit Using Tobacco: 64; packs per day: 1; Cigarettes Per Day: 20; Second Hand Exposure: No; Do You Dip or Chew Tobacco: No; Tobacco Cessation Education Requested by Patient: No Hx Alcohol Use: No Hx Substance Use: No Preferred Language: Frisian 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 Ability: Effective 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 Patient is in no apparent distress. Patient is well-developed. Eyes: Pupils are equal round and reactive to light. Conjunctivae are normal. Anicteric sclera. Ears nose, mouth and throat: Mallampati class 1. Normal posterior oropharynx. Uvula is midline. Neck: Trachea is midline. Visual inspection is normal. Respiratory: Clear to auscultation bilaterally. No use of accessory muscles. No significant clubbing noted. Prolonged phase of exhalation. Cardiovascular: Regular rate and rhythm. No murmurs. No edema. Gastrointestinal: Normal bowel sounds, soft, nontender and nondistended. No hepatosplenomegaly noted. Musculoskeletal: No cyanosis. Patient is able to move all extremities. Strength is 5 out of 5 in the upper and lower extremities. Skin: No rashes, warm dry and intact. Neurologic: No obvious focal neurological deficits seen. Psychiatric: Alert and oriented x3 with a euthymic affect. Results & Data Results & Data Vital Signs (Past 12 Hours) Vital Signs Temp Pulse Pulse Resp BP BP Pulse Ox 10/07/22 09:28 10/07/22 08:20 86 24 163/99 H 98 10/07/22 08:20 93 H 24 93 10/07/22 07:40 98 H 22 129/74 98 10/07/22 07:20 89 20 129/74 95 10/07/22 06:53 91 H 26 H 139/79 95 10/07/22 05:30 100 H 29 H 93 10/07/22 05:00 104 H 21 93 10/07/22 04:30 109 H 23 93 10/07/22 04:00 105 H 24 95 10/07/22 03:42 126 H 10/07/22 03:30 123 H 25 H 145/87 H 94 10/07/22 03:00 131 H 42 H 91 10/07/22 02:30 140 H 35 H 93 10/07/22 02:00 145 H 42 H 93 10/07/22 01:47 149 H 63 H 156/84 H 93 10/07/22 01:00 124 H 26 H 93 10/07/22 00:30 112 H 39 H 100 10/07/22 01:54 10/07/22 00:00 106 H 33 H 98 10/06/22 23:38 121 H 26 H 92 10/06/22 23:56 110 H 30 H 94 10/06/22 23:39 119 H 10/06/22 23:21 36.7 C 121 H 28 H 159/91 H 91 O2 Del Method O2 Flow Rate 10/07/22 09:28 Nasal Cannula 3 10/07/22 08:20 Nasal Cannula 3 10/07/22 08:20 Nasal Cannula 3 10/07/22 07:40 Nasal Cannula 3 10/07/22 07:20 Nasal Cannula 3 10/07/22 06:53 Nasal Cannula 3 10/07/22 05:30 10/07/22 05:00 10/07/22 04:30 10/07/22 04:00 Nasal Cannula 3 10/07/22 03:42 10/07/22 03:30 10/07/22 03:00 10/07/22 02:30 10/07/22 02:00 10/07/22 01:47 10/07/22 01:00 10/07/22 00:30 10/07/22 01:54 Nasal Cannula 3 10/07/22 00:00 10/06/22 23:38 10/06/22 23:56 Nasal Cannula 4 10/06/22 23:39 10/06/22 23:21 Nasal Cannula 3 PG Care Time/CCT Total # of Minutes Spent Total Time Spent with Patient: Total time spent is greater than 50% in coordination of care (as documented) at patient's floor/unit and/or counseling patient: Coding Level of Care Code 44469 INT INP/OBS CARE 375MIN Diagnoses Pneumonia J18.9 Chronic respiratory failure with hypoxia J96.11 Acute exacerbation of chronic obstructive pulmonary disease J44.1 Goals of care, counseling/discussion Z71.89
[2022-10-07] MEDS ORDERED: ALBUT/IPRATROP 3MG/0.5MG NEB 3 ML VIAL NEB SCH (11:00)
[2022-10-07] MEDS ORDERED: CEFEPIME 2,000 MG in SYRINGE 0 ML IV SCH (12:00)
[2022-10-07] MEDS: DOXYCYCLINE HYCLATE 100 MG in DEXTROSE 5% 100 ML IV SCH (12:04)
--- NOTE | 2022-10-07 12:32 | History & Physical Bridge Note ---
Date of Service October 07, 2022 History & Physical Bridge Note I have examined the patient, reviewed the History & Physical and in the interval since the performance of the History & Physical I have noted the following changes of clinical significance: Chart reviewed patient, she was not seen as she was just admitted this AM ~6 by counselor supervisor. Patient arrived to floor this AM, notified by RN that HR was in the 140s (sinus). Obtained EKG which reflected sinus tachycardia. This occurred shortly after receiving Duoneb. Subsequently, I have changed Duonebs to Xopenex/Atrovent q6. She also had not yet received her morning dose of Diltiazem that she takes. Fluids stopped as she is eating/drinking w/o issue. Re- emphasized importance of keeping supplemental oxygen only enough to maintain goal pulse ox of 88-92% given her underlying copd. Otherwise, no changes in treatment. Please see h&p for further details.
[2022-10-07] MEDS: FORMOTEROL 20 MCG/2 ML VIAL NEB SCH ×2 (12:39→19:38)
[2022-10-07] MEDS ORDERED: XOPENEX/ATROVENT 0.63mg/0.5MG NEB COMBO NEB SCH (13:00)
[2022-10-07] MEDS ORDERED: LEVALBUTEROL HCL 0.63 MG/3 ML NEB NEB SCH (13:00)
[2022-10-07] MEDS ORDERED: IPRATROPIUM BROMIDE NEB SOLN 0.02% 2.5 ML VIAL INH SCH (13:00)
--- NOTE | 2022-10-07 13:52 | Electrocardiogram Report ---
Test Reason : Blood Pressure : / mmHG Vent. Rate : 105 BPM Atrial Rate : 105 BPM P-R Int : 132 ms QRS Dur : 068 ms QT Int : 336 ms P-R-T Axes : 074 071 068 degrees QTc Int : 444 ms Sinus tachycardia Otherwise normal ECG When compared with ECG of 14-AUG-2022 11:08, No significant change was found Confirmed by Otf Banuelos ([id number]) on 10/07/2022 1:51:48 PM Referred By: REFERRED SELF Confirmed By:Otf Banuelos
--- NOTE | 2022-10-07 14:05 | Electrocardiogram Report ---
Test Reason : Blood Pressure : / mmHG Vent. Rate : 143 BPM Atrial Rate : 052 BPM P-R Int : 000 ms QRS Dur : 076 ms QT Int : 354 ms P-R-T Axes : 000 069 071 degrees QTc Int : 546 ms Poor data quality, interpretation may be adversely affected Supraventricular tachycardia Nonspecific ST and T wave abnormality Abnormal ECG When compared with ECG of 07-OCT-2022 00:10, (unconfirmed) T wave inversion now evident in Anterior leads Confirmed by Otf Banuelos ([id number]) on 10/07/2022 2:05:36 PM Referred By: REFERRED SELF Confirmed By:Otf Banuelos
--- NOTE | 2022-10-07 15:37 | Palliative Care Consultation ---
Date of Consultation October 07, 2022 Assessment & Plan (1) Palliative care encounter: I talked with Masha about how she is coping with her illness. She is very frustrated with her limited functional capacity and tells me that she sometimes thinks about throwing in the towel. She says that her grandchildren are what keeps her going. She keeps their pictures around the house to remind her not to smoke and to keep trying. Her wish is to be able to get out to their ball games, dance recitals and other events. She has been to [facility] twice as a potential candidate for lung transplantation, most recently one month ago. She tells me that she would be thrilled to be eligible and would definitely want to have the surgery. She does not feel that there is anything that she would not be willing to go through to have more time with her grandchildren. She is a full code and would want intubation if indicated, though she does say that she wouldn't want to be kept alive on a machine residential. "That's not really living". She has contemplated the severity of her disease and her mortality. She has purchased a [employer]. She has four children and has not designated a surrogate decision maker. She says that all of her children have been reluctant to talk about her mortality and making decisions for her. She is not sure which one would be able to follow through with her wishes. Offered a family meeting to facilitate this discussion. She will consider this and talk with her family. History of Present Illness Reason for Consultation: Goals of care Requesting Physician: Dr. De Leon Attending Physician: Kip Penny MD History of Present Illness 66 yo lady with severe COPD who is oxygen dependent with baseline of 3L. She lives at home with her daughter and three grandchildren. SHe has had 4 hospitalizations in the last six months. She presented with progressive shortness of breath, unable to ambulate even a few steps at home. She had been seen by pulmonology as an outpatient and treated with antibiotics and steroid taper. CT shows several air space opacities with 3.3 cm focus of consolidation in RUL, mediastinal and hilar lymphadenopathy, consistent with pneumonia. She is resting comfortably in bed but tells me that she has to sit and rest after stand and pivot to bedside commode. She is severely limited in her functional capacity and generally does not leave the house. Allergies Allergy/AdvReac Type Severity Reaction Status Date / Time aspirin AdvReac Intermediate GI SYMPTOMS Verified 08/05/22 17:35 Home Medications Medication Instructions Recorded Confirmed Type CPAP Machine #1 ea 12/06/19 10/06/22 Rx CPAP Supplies #1 ea 05/11/21 10/06/22 Rx ibuprofen 200 mg tablet 400 mg PO Q6H PRN Pain 12/17/21 10/06/22 History lorazepam 0.5 mg tablet 0.5 mg PO Q8H PRN anxiety #7 tabs 05/17/22 10/06/22 Rx pantoprazole 40 mg tablet,delayed 40 mg PO BID #60 tabs 05/18/22 10/06/22 Rx release escitalopram oxalate 10 mg tablet 15 mg PO QAM 08/05/22 10/06/22 History (Lexapro) diltiazem HCl 180 mg 180 mg PO QAM #30 caps 08/21/22 10/06/22 Rx capsule,extended release 24 hr ProAir HFA 90 mcg/actuation 2 puff inhalation Q4 PRN Shortness 09/03/22 10/06/22 Rx aerosol inhaler (albuterol sulfate) Of Breath Or Wheezing #8.5 grams azithromycin 250 mg tablet 250 mg PO .COMPLEX #36 tabs 09/03/22 10/06/22 Rx fluticasone fur. 200 mcg-umeclid 1 inh inhalation DAILY #60 ea 09/03/22 10/06/22 Rx 62.5 mcg-vilant 25 mcg inhalat.powder (Trelegy Ellipta) ipratropium 0.5 mg-albuterol 3 mg 3 ml inhalation QID PRN Shortness 09/03/22 10/06/22 Rx (2.5 mg base)/3 mL nebulization Of Breath #360 mL soln Portable Oxygen #1 ea 09/15/22 10/06/22 Rx levofloxacin 750 mg tablet 750 mg PO Q24H #7 tabs 10/04/22 10/06/22 Rx Patient History Medical History Anxiety with depression Asthma Chronic obstructive pulmonary disease with hypoxia 3L NC PRN Pulm - Min [place] COPD exacerbation COVID Family history of colon cancer Sleep apnea, obstructive Yeast infection Surgical History H/O partial thyroidectomy 1990s d/t hemorrhaging?--unknown cause, no meds History of broken collarbone sx to repair History of carpal tunnel surgery of right wrist History of partial hysterectomy History of tooth extraction all teeth Family History Mother , from ovarian cancer Cancer Ovarian Sister Cancer Ovarian Father COPD (chronic obstructive pulmonary disease) Other No family history of adverse response to anesthesia Social History Smoking Status: Former smoker Tobacco Type: Cigarettes Age Started Using Tobacco: 17; Age Quit Using Tobacco: 64; packs per day: 1; Cigarettes Per Day: 20; Second Hand Exposure: No; Do You Dip or Chew Tobacco: No; Tobacco Cessation Education Requested by Patient: No Hx Alcohol Use: No Hx Substance Use: No Preferred Language: [place] Citizen 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 Ability: Effective Financial Analyst 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 Beliefs That Will Affect Care: None marital status: Current Living Situation: Family Current Living Situation Comment: Lives with daughter Virgen Other Information That Helps Us Care for You: No Feels Safe at Home: Yes Safety Concerns: Feels Safe At This Time Assistive Devices: Denture - Upper, Denture - Lower and Glasses Review of Systems Review of Systems: ESAS Pain 0/3 Dyspnea 2/3 at rest Nausea 0/3 Drowsiness 0/3 Physical Exam Constitutional: + ill appearing; no acute distress Respiratory: no respiratory distress and no labored breathing Cardiovascular: Rate/Rhythm: + irregularly irregular Neurologic: Speech / Cognition: normal cognition Genitourinary: continent Results & Data Vital Signs (Past 12 Hours) Vital Signs Temp Pulse Pulse Resp BP BP Pulse Ox 10/07/22 12:39 104 H 20 91 10/07/22 11:10 98.2 F 103 H 20 136/71 95 10/07/22 09:28 10/07/22 08:20 86 24 163/99 H 98 10/07/22 08:20 93 H 24 93 10/07/22 07:40 98 H 22 129/74 98 10/07/22 07:20 89 20 129/74 95 10/07/22 06:53 91 H 26 H 139/79 95 10/07/22 05:30 100 H 29 H 93 10/07/22 05:00 104 H 21 93 10/07/22 04:30 109 H 23 93 10/07/22 04:00 105 H 24 95 10/07/22 03:42 126 H 10/07/22 03:30 123 H 25 H 145/87 H 94 O2 Del Method O2 Flow Rate 10/07/22 12:39 Nasal Cannula 3 10/07/22 11:10 Nasal Cannula 3 10/07/22 09:28 Nasal Cannula 3 10/07/22 08:20 Nasal Cannula 3 10/07/22 08:20 Nasal Cannula 3 10/07/22 07:40 Nasal Cannula 3 10/07/22 07:20 Nasal Cannula 3 10/07/22 06:53 Nasal Cannula 3 10/07/22 05:30 10/07/22 05:00 10/07/22 04:30 10/07/22 04:00 Nasal Cannula 3 10/07/22 03:42 10/07/22 03:30 PG Care Time/CCT Total # of Minutes Spent Total Time Spent: 61 Total Time Spent with Patient: Total time spent is greater than 50% in coordination of care (as documented) at patient's floor/unit and/or counseling patient:[id number] Goals of care, code status, patient education and support Coding Level of Care Code 63274 INT INP/OBS CARE 2/55MIN Diagnoses Palliative care encounter Z51.5
[2022-10-07] MEDS ORDERED: KETOROLAC TROMETHAMINE 15 MG/ML VIAL IV ONE (19:30)
[2022-10-07] MEDS: SODIUM CHLOR 7% 4 ML NEB NEB SCH (19:38)
[2022-10-07] MEDS: BUDESONIDE 0.5 MG/2 ML VIAL (PULMICORT) NEB SCH (19:38)
[2022-10-07] MEDS: FAMOTIDINE 20 MG TAB PO SCH (20:39)
[2022-10-08] MEDS: CEFEPIME 2,000 MG in SYRINGE 0 ML IV SCH ×3 (00:58→23:02)
[2022-10-08] MEDS: DOXYCYCLINE HYCLATE 100 MG in DEXTROSE 5% 100 ML IV SCH ×3 (01:00→23:03)
--- NOTE | 2022-10-08 04:44 | Billing Data ---
Date of Service October 08, 2022 Coding Level of Care Code 52428 INT INP/OBS CARE
[2022-10-08] MEDS: FORMOTEROL 20 MCG/2 ML VIAL NEB SCH ×2 (07:00→20:11)
[2022-10-08] MEDS: BUDESONIDE 0.5 MG/2 ML VIAL (PULMICORT) NEB SCH ×2 (07:00→20:11)
[2022-10-08 07:01] LABS: Creatinine Clr Calc Pharmacy 48.9 ml/min; Est GFR (African American) 63.2 ml/min; Est GFR (Non-African American) 54.5 ml/min
[2022-10-08] MEDS: SODIUM CHLOR 7% 4 ML NEB NEB SCH ×2 (07:01→20:11)
[2022-10-08] MEDS: dilTIAZem HCL 180 MG CAPCR PO SCH (08:14)
[2022-10-08] MEDS: ESCITALOPRAM OXALATE 10 MG TAB PO SCH (08:14)
[2022-10-08] MEDS: ENOXAPARIN INJ 40 MG/0.4 ML SYR SQ SCH (08:14)
[2022-10-08] MEDS: FAMOTIDINE 20 MG TAB PO SCH ×2 (08:14→20:19)
[2022-10-08] MEDS: guaiFENesin 600 MG TABCR PO SCH ×2 (08:15→20:19)
[2022-10-08] MEDS: PANTOprazole 40 MG TAB PO SCH ×2 (08:15→20:19)
[2022-10-08] MEDS ORDERED: AZITHROMYCIN 250 MG TAB PO SCH (09:00)
[2022-10-08] MEDS ORDERED: methylPREDNISolone 60 MG in SYRINGE 0 ML IV SCH (09:00)
[2022-10-08] MEDS: ALBUT/IPRATROP 3MG/0.5MG NEB 3 ML VIAL NEB PRN (15:37)
--- NOTE | 2022-10-08 16:12 | Hospitalist Progress Note ---
Date of Service October 08, 2022 Assessment & Plan (1) Acute exacerbation of chronic obstructive pulmonary disease: Plan: 67 yo female with PMHx COPD, anxiety, depression, GERD, and afib presents with shortness of breath. #Acute on chronic COPD in exacerbation #Acute respiratory failure with hypoxia and hypercapnia -Pulmonary discontinued Levaquin and Azithromycin. -Started cefepime and doxycycline -Pulmonary also discontinue powdered inhalers. -Start formoterol and budesonide nebulized twice daily. Albuterol/ipratropium every 4 hours as needed for wheezing -Continue IV Solu-Medrol and a dose of 60 mg daily. Transition to p.o. prednisone tomorrow 10/09/22. -Initiate pulmonary clearance with percussive vest therapy 4 times daily and hypertonic saline twice daily -Palliative was consulted and discussed with patient about goals of care and the need to talk with her family about her mortality and making decisions for her. She is not sure which one would be able to follow through with her wishes. Offered a family meeting to facilitate this discussion. She will consider this and talk with her family. -Patient was encouraged to bring her CPAP from home to utilize while in the hospital so that we can monitor her saturations and response to CPAP therapy. (2) Pneumonia: Plan: acute see above check AM labs (3) Anxiety with depression: Plan: Chronic and stable -continue home Lexapro (4) Paroxysmal atrial tachycardia: Plan: Chronic -continue home diltiazem -Heart rate 76 currently (5) Acid reflux: Plan: Chronic and stable -continue PPI Plan DVT ppx: Lovenox FEN/GI: Regular Code Status: Full Dispo: PCU Admission and Anticipated Discharge Date Admission Date: October 07, 2022 Subjective Patient seen this afternoon on rounds, she was sitting up in bed playing dominos with her dtr and grand daughter. She states she is still feeling about the same and was out of breath and had a hard time breathin earlier just getting up to the bedside commode. She denies any chest pain. Patient currently is saturating in low to mid 90s on 3L. She follows with [facility] and is being considered for a lung transplant. She was lasat there 3 weeks ago and she is not sure if she is actually on the transplant list yet. Review of Systems Constitutional: + fatigue and + weakness; no fever and no chills Ear, Nose, Mouth, Throat: no nasal congestion, no post nasal drip, no nasal obstruction, no sore throat and no dysphagia Respiratory: + cough and + dyspnea; no change in sputum, no hemoptysis and no sputum production Cardiovascular: no chest pain, no orthopnea, no syncope, no edema and no calf pain Musculoskeletal: + back pain; no swelling Integumentary: no rash, no lesions and no new lesions Psychiatric: no hopelessness, no suicidal ideation and no confusion Physical Exam Constitutional: WD/WN, vitals as above Neck: trachea midline, no thyromegaly Respiratory: able to speak in complete sentences; no respiratory distress and no labored breathing Auscultation: lungs clear to auscultation bilaterally; no crackles, no rales, no rhonchi and no wheezes prolonged expiration Cardiovascular: RRR, no murmur, no edema Extremities: normal capillary refill; no calf tenderness and no edema Gastrointestinal (Abdomen): normal bowel sounds, soft, nontender, no hep atosplenomegaly Skin: no rashes, warm and dry no clubbing or cyanosis Psychiatric: A+Ox3, euthymic affect Results & Data Results & Data Vital Signs (Past 12 Hours) Vital Signs Temp Pulse Pulse Resp BP Pulse Ox O2 Del Method 10/08/22 15:37 75 20 94 Nasal Cannula 10/08/22 15:18 36.9 C 96 H 20 135/66 96 Nasal Cannula 10/08/22 13:16 Nasal Cannula 10/08/22 11:22 36.9 C 84 17 130/72 94 Nasal Cannula 10/08/22 08:00 36.6 C 74 18 144/80 H 95 Nasal Cannula 10/08/22 07:14 84 22 92 Nasal Cannula O2 Flow Rate 10/08/22 15:37 3 10/08/22 15:18 4 10/08/22 13:16 3 10/08/22 11:22 4 10/08/22 08:00 4 10/08/22 07:14 3 PG Care Time/CCT Total # of Minutes Spent Total Time Spent with Patient: Total time spent is greater than 50% in coordination of care (as documented) at patient's floor/unit and/or counseling patient: Coding Level of Care Code 26869 SUB INP/OBS CARE 2/35MIN Diagnoses Acute exacerbation of chronic obstructive pulmonary disease J44.1 Pneumonia J18.9 Anxiety with depression F41.8 Paroxysmal atrial tachycardia I47.1 Acid reflux K21.9
[2022-10-09 06:38] LABS: Basophils # (auto) 0.01 K/uL (0-0.2); Basophils % (auto) 0.1 %; Hematocrit (blood only) 29.9 % (37.0-47.0); Hemoglobin 10.1 g/dl (12.0-16.0); Immature Granulocytes # (auto) 0.08 K/uL (0.01-0.20); Immature Granulocytes % (auto) 0.5 %; Lymphocytes % (auto) 6.1 %; Mean Corpuscular Hemoglobin 29.8 pg (25.0-34.0); Mean Corpuscular Hgb Conc 33.8 g/dL (32.0-36.0); Mean Corpuscular Volume 88.2 fL (80.0-100.0); Mean Platelet Volume 9.5 fL (9.4-12.4); Monocytes # (auto) 0.66 K/uL (0.11-0.59); Monocytes % (auto) 4.5 %; Neutrophils % (auto) 88.8 %; Platelet Count 328 K/uL (130-400); Red Blood Count 3.39 M/uL (4.20-5.40); White Blood Count 14.65 K/ul (4.8-10.8)
[2022-10-09 06:46] LABS: BUN Creatinine Ratio 36.7 (10-20); Calcium 8.5 mg/dl (8.6-10.3); Creatinine Clr Calc Pharmacy 57.1 ml/min; Est GFR (African American) 76.1 ml/min; Est GFR (Non-African American) 65.7 ml/min; Magnesium 2.2 mg/dl (1.7-2.4); Potassium 4.2 mmol/L (3.5-5.1)
[2022-10-09] MEDS: FORMOTEROL 20 MCG/2 ML VIAL NEB SCH ×2 (07:28→19:41)
[2022-10-09] MEDS: SODIUM CHLOR 7% 4 ML NEB NEB SCH ×2 (07:29→19:41)
[2022-10-09] MEDS: BUDESONIDE 0.5 MG/2 ML VIAL (PULMICORT) NEB SCH ×2 (07:29→19:41)
[2022-10-09] MEDS: dilTIAZem HCL 180 MG CAPCR PO SCH (08:05)
[2022-10-09] MEDS: ENOXAPARIN INJ 40 MG/0.4 ML SYR SQ SCH (08:06)
[2022-10-09] MEDS: ESCITALOPRAM OXALATE 10 MG TAB PO SCH (08:07)
[2022-10-09] MEDS: FAMOTIDINE 20 MG TAB PO SCH ×2 (08:08→19:56)
[2022-10-09] MEDS: guaiFENesin 600 MG TABCR PO SCH ×2 (08:09→19:56)
[2022-10-09] MEDS: PANTOprazole 40 MG TAB PO SCH ×2 (08:10→19:56)
[2022-10-09] MEDS ORDERED: predniSONE 20 MG TAB PO SCH (11:45)
[2022-10-09] MEDS: CEFEPIME 2,000 MG in SYRINGE 0 ML IV SCH ×2 (11:48→23:45)
[2022-10-09] MEDS: DOXYCYCLINE HYCLATE 100 MG in DEXTROSE 5% 100 ML IV SCH (11:49)
--- NOTE | 2022-10-09 13:46 | Pulmonology Progress Note ---
Date of Service October 09, 2022 Assessment & Plan (1) Pneumonia: (2) Chronic respiratory failure with hypoxia: (3) Acute exacerbation of chronic obstructive pulmonary disease: (4) Goals of care, counseling/discussion: Plan 67-year-old female with a history of oxygen dependent COPD presenting to the hospital due to pneumonia and COPD exacerbation. She is being followed by [facility] for possible lung denervation/transplant candidacy. -Continue cefepime today and transition to p.o. doxycycline today. Can likely be dismissed from the hospital in the next 1 to 2 days. -Continue formoterol and budesonide nebulized twice daily. Albuterol/ipratropium every 4 hours as needed for wheezing -Decrease prednisone to 30 mg daily. Recommend completing a total course of 10 days of systemic corticosteroids. -Continue pulmonary clearance with percussive vest therapy 4 times daily and hypertonic saline twice daily. -Patient would benefit from outpatient palliative care follow-up. -Continue home trilogy ventilator. She can use the trilogy even when awake during episodes of shortness of breath. -Discussed aerobic exercise and pulmonary rehab. No further recommendations at this time. Please call with questions. Thank you for the consultation. Admission and Anticipated Discharge Date Admission Date: October 07, 2022 Subjective Patient has been using her home trilogy device and tolerating this well. She notes some improvement in her breathing since admission. She has been essentially bedbound since hospital admission. She is very reluctant to get up and scared due to shortness of breath with exertion. I encouraged her to get out of bed today and discussed this with her bedside RN. She denies any chest pain, fevers or chills. Review of Systems Review of Systems: All systems reviewed & are unremarkable except as noted in HPI & below Physical Exam Physical Exam: Constitutional: Patient appears to be of their stated age. Patient is in no apparent distress. Patient is well-developed. Eyes: Pupils are equal round and reactive to light. Conjunctivae are normal. Anicteric sclera. Ears nose, mouth and throat: Mallampati class 1. Normal posterior oropharynx. Uvula is midline. Neck: Trachea is midline. Visual inspection is normal. Respiratory: Clear to auscultation bilaterally. No use of accessory muscles. No significant clubbing noted. Prolonged phase of exhalation. Cardiovascular: Regular rate and rhythm. No murmurs. No edema. Gastrointestinal: Normal bowel sounds, soft, nontender and nondistended. No hepatosplenomegaly noted. Musculoskeletal: No cyanosis. Patient is able to move all extremities. Strength is 5 out of 5 in the upper and lower extremities. Skin: No rashes, warm dry and intact. Neurologic: No obvious focal neurological deficits seen. Psychiatric: Alert and oriented x3 with a euthymic affect. Results & Data Results & Data Vital Signs (Past 12 Hours) Vital Signs Temp Pulse Pulse Pulse Resp BP Pulse Ox 10/09/22 12:56 73 10/09/22 12:08 70 131/71 97 10/09/22 08:00 36.3 C L 75 75 14 161/73 H 94 10/09/22 10:12 10/09/22 07:31 75 20 94 10/09/22 03:53 36.4 C L 70 16 148/77 H 97 O2 Del Method O2 Flow Rate 10/09/22 12:56 10/09/22 12:08 Nasal Cannula 3 10/09/22 08:00 Nasal Cannula 3 10/09/22 10:12 Nasal Cannula 3 10/09/22 07:31 Nasal Cannula 3 10/09/22 03:53 CPAP 3 PG Care Time/CCT Total # of Minutes Spent Total Time Spent with Patient: Total time spent is greater than 50% in coordination of care (as documented) at patient's floor/unit and/or counseling patient: Coding Level of Care Code 18917 SUB INP/OBS CARE 2/35MIN Diagnoses Pneumonia J18.9 Chronic respiratory failure with hypoxia J96.11 Acute exacerbation of chronic obstructive pulmonary disease J44.1 Goals of care, counseling/discussion Z71.89
--- NOTE | 2022-10-09 18:41 | Hospitalist Progress Note ---
Date of Service October 09, 2022 Assessment & Plan (1) Acute exacerbation of chronic obstructive pulmonary disease: Plan: 67 yo female with PMHx COPD, anxiety, depression, GERD, and afib presents with shortness of breath. #Acute on chronic COPD in exacerbation #Acute respiratory failure with hypoxia and hypercapnia With pneumonia, multifocal-at risk for gram-negative pneumonia and MRSA pneumonia given multiple recent hospitalizations With severe, end-stage COPD. Has been evaluated at [facility] for lung denervation versus lung transplant-awaiting one of the other -Initially was started on Levaquin prior to admission and had been on prophylactic Tuesday azithromycin. -Seen by pulmonology after admission and changed to cefepime and doxycycline- doxycycline p.o. today as per pulmonary -Pulmonary also discontinued powdered inhalers and converted to formoterol and budesonide twice daily -Albuterol/ipratropium every 4 hours as needed for wheezing -Received IV Solu-Medrol 60 mg IV daily and transitioned to prednisone 40 mg daily today-pulmonology recommends decreasing to 30 mg daily for tomorrow -Hemoglobin 7.1 mg p.o. twice daily -Continue percussive vest therapy 4 times daily and hypertonic saline twice daily -Palliative was consulted and discussed with patient about goals of care and the need to talk with her family about her mortality and making decisions for her. She is not sure which one would be able to follow through with her wishes. Offered a family meeting to facilitate this discussion. She will consider this and talk with her family. -Patient brought her trilogy machine from home to utilize while in the hospital (2) Pneumonia: Plan: acute see above Urine culture with normal natalee (3) Anxiety with depression: Plan: Chronic and stable -continue home Lexapro (4) Paroxysmal atrial tachycardia: Plan: Had an episode of such upon admission which improved with giving her home p.o. diltiazem -continue to monitor on telemetry-rates remain in normal sinus rhythm with rates in 70s to 80s -continue home diltiazem (5) Acid reflux: Plan: Chronic and stable -continue PPI (6) Lower back pain: Plan: Has had some lower back pain with some numbness and tingling going down the bilateral lower extremities Lumbar spine x-ray here shows chronic superior endplate L1 compression fracture Likely has some component of spinal stenosis and lumbar radiculopathy. No lytic bone lesions seen on x-ray If pain and/or numbness and tingling persists, consider MRI of the lumbar spine Plan DVT ppx: Lovenox FEN/GI: Regular Code Status: Full Dispo: Continued stay on PCU, likely discharge to home in 2 days Admission and Anticipated Discharge Date Admission Date: October 07, 2022 Subjective Patient reports feeling slightly improved today with her shortness of breath. She did get out of bed and walk around the room a little bit after encouragement from pulmonology. She is using her home trilogy machine here. She does report some pain in the right breast with the vibration vest. She has also been having lower back pain with some tingling down the left greater than right legs for the last month. Reviewed lumbar spine x-rays with her. Telemetry with normal sinus rhythm with rates in the 70s to 80s Physical Exam Constitutional: well developed; no acute distress Respiratory: normal respiratory effort; no cough Auscultation: + diminished lung sounds (Throughout) and + wheezes (Bilateral expiratory upper lung wharton); no crackles and no rhonchi Cardiovascular: RRR, no murmur, no edema Gastrointestinal (Abdomen): normal bowel sounds, soft, nontender, no hepatosplenomegaly Psychiatric: A+Ox3, euthymic affect Results & Data Results & Data Vital Signs (Past 12 Hours) Vital Signs Temp Pulse Pulse Pulse Resp BP Pulse Ox 10/09/22 16:42 73 10/09/22 15:38 70 126/75 98 10/09/22 12:56 73 10/09/22 12:08 70 131/71 97 10/09/22 08:00 36.3 C L 75 75 14 161/73 H 94 10/09/22 10:12 10/09/22 07:31 75 20 94 O2 Del Method O2 Flow Rate 10/09/22 16:42 10/09/22 15:38 Nasal Cannula 3 10/09/22 12:56 10/09/22 12:08 Nasal Cannula 3 10/09/22 08:00 Nasal Cannula 3 10/09/22 10:12 Nasal Cannula 3 10/09/22 07:31 Nasal Cannula 3 Laboratory Results CBC, BMP reviewed Sputum culture no growth PG Care Time/CCT Total # of Minutes Spent Total Time Spent with Patient: Total time spent is greater than 50% in coordination of care (as documented) at patient's floor/unit and/or counseling patient: Coding Level of Care Code 11860 SUB INP/OBS CARE MIN Diagnoses Acute exacerbation of chronic obstructive pulmonary disease J44.1 Pneumonia J18.9 Anxiety with depression F41.8 Paroxysmal atrial tachycardia I47.1 Acid reflux K21.9 Lower back pain M54.50
[2022-10-09] MEDS: LIDOCAINE 5% 1 PATCH TD SCH (19:29)
[2022-10-09] MEDS: DOXYCYCLINE HYCLATE 100 MG CAP PO SCH (19:56)
[2022-10-10] MEDS: SODIUM CHLOR 7% 4 ML NEB NEB SCH ×2 (07:30→19:29)
[2022-10-10] MEDS: FORMOTEROL 20 MCG/2 ML VIAL NEB SCH ×2 (07:46→19:29)
[2022-10-10] MEDS: BUDESONIDE 0.5 MG/2 ML VIAL (PULMICORT) NEB SCH ×2 (07:46→19:30)
[2022-10-10] MEDS: FAMOTIDINE 20 MG TAB PO SCH ×2 (08:36→20:09)
[2022-10-10] MEDS: DOXYCYCLINE HYCLATE 100 MG CAP PO SCH ×2 (08:36→20:10)
[2022-10-10] MEDS: dilTIAZem HCL 180 MG CAPCR PO SCH (08:37)
[2022-10-10] MEDS: predniSONE 10 MG TABLET PO SCH (08:37)
[2022-10-10] MEDS: ESCITALOPRAM OXALATE 10 MG TAB PO SCH (08:37)
[2022-10-10] MEDS: LIDOCAINE 5% 1 PATCH TD SCH (08:38)
[2022-10-10] MEDS: guaiFENesin 600 MG TABCR PO SCH ×2 (08:38→20:09)
[2022-10-10] MEDS: ENOXAPARIN INJ 40 MG/0.4 ML SYR SQ SCH (08:38)
[2022-10-10] MEDS: PANTOprazole 40 MG TAB PO SCH ×2 (08:39→20:10)
[2022-10-10] MEDS: ALBUT/IPRATROP 3MG/0.5MG NEB 3 ML VIAL NEB PRN ×2 (11:13→15:32)
[2022-10-10] MEDS: CEFEPIME 2,000 MG in SYRINGE 0 ML IV SCH ×2 (14:05→23:15)
[2022-10-10] MEDS ORDERED: LORazepam 0.5 MG TAB PO PRN (16:43)
--- NOTE | 2022-10-10 16:51 | Hospitalist Progress Note ---
Date of Service October 10, 2022 Assessment & Plan (1) Acute exacerbation of chronic obstructive pulmonary disease: Plan: 67 yo female with PMHx COPD, anxiety, depression, GERD, and afib presents with shortness of breath. #Acute on chronic COPD in exacerbation #Acute respiratory failure with hypoxia and hypercapnia With pneumonia, multifocal-at risk for gram-negative pneumonia and MRSA pneumonia given multiple recent hospitalizations With severe, end-stage COPD. Has been evaluated at [facility] for lung denervation versus lung transplant-awaiting one or the other, but has to do Pulm rehab first-on waiting list for that in November -Initially was started on Levaquin prior to admission and had been on prophylactic Tuesday azithromycin. -Seen by pulmonology after admission and changed to cefepime and doxycycline- as per pulmonary -Pulmonary also discontinued powdered inhalers and converted to formoterol and budesonide twice daily-will ensure these are prescribed on discharge -Albuterol/ipratropium every 4 hours as needed for wheezing -Received IV Solu-Medrol 60 mg IV daily and transitioned to prednisone po and tapering down -guaifenesin 1200 mg p.o. twice daily -Continue percussive vest therapy 4 times daily and hypertonic saline twice daily -Palliative was consulted and discussed with patient about goals of care and the need to talk with her family about her mortality and making decisions for her. She is not sure which one would be able to follow through with her wishes. Offered a family meeting to facilitate this discussion. She will consider this and talk with her family. -Patient brought her trilogy machine from home to utilize while in the hospital -advised RN to decrease O2 to only keep POx>90% (turn down to 2L) (2) Pneumonia: Plan: see above (3) Anxiety with depression: Plan: with anxiety exacerbated by sterids and hospitalization -continue home Lexapro but increase to 20mg daily -add prn low dose lorazepam (4) Paroxysmal atrial tachycardia: Plan: Had an episode of such upon admission which improved with giving her home p.o. diltiazem -continue to monitor on telemetry-rates remain in normal sinus rhythm with rates in 60s -continue home diltiazem (5) Acid reflux: Plan: Chronic and stable -continue PPI (6) Lower back pain: Plan: Has had some lower back pain with some numbness and tingling going down the bilateral lower extremities Lumbar spine x-ray here shows chronic superior endplate L1 compression fracture Likely has some component of spinal stenosis and lumbar radiculopathy. No lytic bone lesions seen on x-ray If pain and/or numbness and tingling persists, consider MRI of the lumbar spine Plan DVT ppx: Lovenox FEN/GI: Regular Code Status: Full Dispo: Continued stay on PCU, likely discharge to home in 1-2 days Admission and Anticipated Discharge Date Admission Date: October 07, 2022 Subjective Feeling very anxious, asking for an extra dose of lexapro that she takes sometimes. Is afraid to take lorazepam as she fears she'll get addicted. Otherwise, feels her breathing is better, still some productive cough. Tele with NSR< rates in 60s Physical Exam Constitutional: well developed; no acute distress Respiratory: normal respiratory effort; no cough Auscultation: + diminished lung sounds (Throughout) and + wheezes (Bilateral expiratory upper lung wharton); no crackles and no rhonchi Cardiovascular: RRR, no murmur, no edema Gastrointestinal (Abdomen): normal bowel sounds, soft, nontender, no hepatosplenomegaly Psychiatric: Orientation: alert, oriented x 3 and cooperative Affect: + anxious affect Results & Data Results & Data Vital Signs (Past 12 Hours) Vital Signs Temp Pulse Pulse Resp BP Pulse Ox O2 Del Method 10/10/22 16:41 36.5 C 71 16 136/75 95 Nasal Cannula 10/10/22 16:40 Nasal Cannula 10/10/22 15:33 72 18 97 Nasal Cannula 10/10/22 12:25 37.1 C 71 18 136/77 95 Nasal Cannula 10/10/22 11:14 76 16 99 Nasal Cannula 10/10/22 07:00 68 10/10/22 08:00 Nasal Cannula 10/10/22 08:17 36.7 C 69 18 137/75 100 Nasal Cannula 10/10/22 07:30 72 18 97 Nasal Cannula O2 Flow Rate 10/10/22 16:41 3 10/10/22 16:40 2 10/10/22 15:33 3 10/10/22 12:25 3 10/10/22 11:14 4 10/10/22 07:00 10/10/22 08:00 3 10/10/22 08:17 3 10/10/22 07:30 3 PG Care Time/CCT Total # of Minutes Spent Total Time Spent with Patient: Total time spent is greater than 50% in coordination of care (as documented) at patient's floor/unit and/or counseling patient: Coding Level of Care Code 27389 SUB INP/OBS CARE 2/35MIN Diagnoses Acute exacerbation of chronic obstructive pulmonary disease J44.1 Pneumonia J18.9 Anxiety with depression F41.8 Paroxysmal atrial tachycardia I47.1 Acid reflux K21.9 Lower back pain M54.50
[2022-10-10] MEDS ORDERED: ESCITALOPRAM OXALATE 10 MG TAB PO ONE (17:00)
[2022-10-10] MEDS: FLUTICASONE PROPIONATE NA SPR 16 GM BTL SCH (20:43)
[2022-10-11] MEDS: SODIUM CHLOR 7% 4 ML NEB NEB SCH (07:34)
[2022-10-11] MEDS: FORMOTEROL 20 MCG/2 ML VIAL NEB SCH (07:34)
[2022-10-11] MEDS: BUDESONIDE 0.5 MG/2 ML VIAL (PULMICORT) NEB SCH (07:34)
[2022-10-11] MEDS: FLUTICASONE PROPIONATE NA SPR 16 GM BTL SCH (08:29)
[2022-10-11] MEDS: LIDOCAINE 5% 1 PATCH TD SCH (08:29)
[2022-10-11] MEDS: predniSONE 10 MG TABLET PO SCH (08:30)
[2022-10-11] MEDS: dilTIAZem HCL 180 MG CAPCR PO SCH (08:30)
[2022-10-11] MEDS: PANTOprazole 40 MG TAB PO SCH (08:31)
[2022-10-11] MEDS: FAMOTIDINE 20 MG TAB PO SCH (08:31)
[2022-10-11] MEDS: DOXYCYCLINE HYCLATE 100 MG CAP PO SCH (08:31)
[2022-10-11] MEDS: guaiFENesin 600 MG TABCR PO SCH (08:34)
[2022-10-11] MEDS: ENOXAPARIN INJ 40 MG/0.4 ML SYR SQ SCH (08:36)
[2022-10-11] MEDS ORDERED: ESCITALOPRAM OXALATE 20 MG TAB PO SCH (09:00)
--- NOTE | 2022-10-11 11:18 | Discharge Summary ---
Date of Service October 11, 2022 Admission HPI Per Admitting Provider 67 yo female with PMHx COPD, anxiety, depression, GERD, and afib presents with shortness of breath. Yesterday afternoon patient started experiencing increased shortness of breath. She has had shortness of breath for the past few weeks and follows with pulmonology for her COPD. Last month she was started on prophylactic azithromycin MWF schedule. Last week she completed a prednisone taper and few days ago was also started on Levaquin for possible pneumonia. She denies headache, chest pain, abdominal pain, nausea, vomiting, diarrhea, dysuria Chronically on 3L O2 at home. Compliant with home inhalers. Principal Diagnosis Acute exacerbation COPD, suspected bronchopneumonia Discharge Exam General-alert and oriented x3, no fevers, no chills HEENT-head atraumatic and normocephalic, pupils equal and reactive to light, extraocular muscles intact Neck-no lymphadenopathy or thyromegaly, trachea midline Chest-diminished breath sounds bilaterally. No dullness to percussion. No wheezing. No rhonchi Cardiac-regular rate and rhythm, normal S1 and S2 Abdomen-normal bowel sounds, nontender, no hepatosplenomegaly Extremities-no cyanosis, clubbing, or edema Neuro-cranial nerves II through XII intact, motor and sensory function within normal limits, strength symmetrical , no focal deficits Psych-normal affect, normal mood Discharge Data Allergies Allergy/AdvReac Type Severity Reaction Status Date / Time aspirin AdvReac Intermediate GI SYMPTOMS Verified 08/05/22 17:35 Consultations 10/07/22 05:10 ED Decision to Admit Stat 10/07/22 07:58 Consult Pulmonology Routine 10/07/22 14:31 Consult Palliative Care Routine Hospital Course (1) Acute exacerbation of chronic obstructive pulmonary disease: She now appears to be back to her baseline. We will continue formoterol and budesonide inhalers at discharge along with doxycycline. All other medications remain the same. She will follow-up with her pulmonary medicine doctor as scheduled. #Acute respiratory failure with hypoxia and hypercania-present on admission. She is now back to her baseline (2) Pneumonia: Suspected on admission. She probably has bronchopneumonia. No definite infiltrate seen on chest x-ray. We will continue doxycycline for another week at discharge (3) Anxiety with depression: with anxiety exacerbated by sterids and hospitalization. Continue home Lexapro but increase to 20mg daily while hospitalized.. prn low dose lorazepam while hospitalized (4) Paroxysmal atrial tachycardia: Had an episode of such upon admission which resolved with giving her home p.o. diltiazem . Telemetry. (5) Acid reflux: Chronic and stable. Continue PPI (6) Lower back pain: Has had some lower back pain with some numbness and tingling going down the bilateral lower extremities. Lumbar spine x-ray here shows chronic superior endplate L1 compression fracture. Likely has some component of spinal stenosis and lumbar radiculopathy. No lytic bone lesions seen on x-ray Plan Home today, October 11. Continue prednisone tapering dose at discharge along with formoterol and budesonide inhalers. Prednisone tapering dose also ordered at discharge. Total Time Total Time Spent Total Time Spent (In Minutes): 40 minutes Discharge Plan Discharge Items Patient Disposition: Home - Self-Care Reason For Visit: SHORTNESS OF BREATH Discharge Diagnosis: Acute exacerbation of COPD, acute on chronic hypoxic/hypercapnic respiratory failure, suspected bronchopneumonia Activity: Resume your previous activity Non-emergency contact: Primary Care Provider and [employer] Call non-emergency contact if: your symptoms worsen Follow-up/Referrals: Roshan Crandall MD [Primary Care Provider] - Diet: Regular and Heart Healthy Addtl Attending Provider Instructions: Take prednisone in a tapering dose fashion as directed. Take doxycycline for 1 more week. Continue formoterol and budesonide inhalers Pending Studies at Discharge: No Stand-Alone Forms: My [email or web address], Smoking Cessation Medications and DC Order Prescriptions: New doxycycline hyclate 100 mg Capsule 100 mg PO BID Qty: 14 0RF formoterol fumarate [Perforomist] 20 mcg/2 mL solution for nebulization 2 ml inhalation Q12H Qty: 60 0RF budesonide 0.5 mg/2 mL Suspension For Nebulization 0.5 mg NEB BIDR Qty: 60 0RF prednisone 10 mg tablet See Rx Instructions .ROUTE .COMPLEX Qty: 18 0RF Rx Instructions: 10 mg orally 3 times a day for 3 days, then 10 mg twice a day for 3 days, then 10 mg once a day for 3 days, then stop Continued levofloxacin 750 mg tablet 750 mg PO Q24H Qty: 7 0RF Trelegy Ellipta 200-62.5-25 mcg blister with device 1 inh inhalation DAILY Qty: 60 8RF azithromycin 250 mg tablet 250 mg PO .COMPLEX Qty: 36 3RF Rx Instructions: 250 mg PO 1 tab p.o. on [id number]-[id number]-[id number]; albuterol sulfate [ProAir HFA] 90 mcg/actuation HFA aerosol inhaler 2 puff Inhalation Q4 PRN (Reason: Shortness Of Breath Or Wheezing) Qty: 8.5 3RF ipratropium-albuterol 0.5 mg-3 mg(2.5 mg base)/3 mL solution for nebulization 3 ml INH QID PRN (Reason: Shortness Of Breath) Qty: 360 5RF (DME) CPAP Machine Misc See Rx Instructions .MEDSUPPLY Qty: 1 0RF Rx Instructions: Auto-titration CPAP with pressure range between 5 cm H2O and 15 cm H2O with humidification. Lifetime need. (DME) CPAP Supplies Misc See Rx Instructions .MEDSUPPLY Qty: 1 0RF Rx Instructions: Refitting of the mask. G47.33 (DME) Portable Oxygen Misc See Rx Instructions .Route Qty: 1 0RF Rx Instructions: portable oxygen concentrator- 3LPM on exertion via n/c. SILVIA:99 ibuprofen 200 mg Tablet 400 mg PO Q6H PRN (Reason: Pain) lorazepam 0.5 mg tablet 0.5 mg PO Q8H PRN (Reason: anxiety) Qty: 7 0RF pantoprazole 40 mg Tablet,Delayed Release (Dr/Ec) 40 mg PO BID Qty: 60 0RF escitalopram oxalate [Lexapro] 10 mg tablet 15 mg PO QAM diltiazem HCl 180 mg Capsule,Extended Release 24hr 180 mg PO QAM Qty: 30 0RF Discharge Orders: Discharge Order (Routine); Ordered 10/11/22 Ordered By: Americo Traore Admission Data Admit Date/Time: 10/07/22 05:57 Attending Provider: Americo Traore Admit Provider: Marvin Pickard Primary Care Provider: Roshan Crandall Other Providers: Blaze Smith ; Leno De Leon ; Apple Vela ; Anna Haines Coding Level of Care Code 08947 INP/OBS DISCH >30 MIN Diagnoses Acute exacerbation of chronic obstructive pulmonary disease J44.1 Pneumonia J18.9 Anxiety with depression F41.8 Paroxysmal atrial tachycardia I47.1 Acid reflux K21.9 Lower back pain M54.50
[2022-10-11] MEDS: CEFEPIME 2,000 MG in SYRINGE 0 ML IV SCH (12:44)
[2022-10-11] MEDS: ALBUT/IPRATROP 3MG/0.5MG NEB 3 ML VIAL NEB PRN (13:24)
== END 2022-10-11 16:39 | disposition home or self-care (01) | DRG 190 ==
LOC: ED 23:18 → EDINP 10-07 05:57 → SUATTDRO 10-07 05:57 → EDINP 10-07 07:57 → 4W 10-07 08:51

== ENCOUNTER 2022-10-24 17:27 | Inpatient (IN) ==
--- NOTE | 2022-10-24 17:54 | Emergency Department Note ---
Impression & Plan Acute exacerbation of chronic obstructive pulmonary disease, Acute pericardial effusion ED Provider Note HISTORY OF PRESENT ILLNESS: Patient is a 67-year-old female presenting with shortness of breath. Patient reports increasing shortness of breath since last night. Reports she normally wears 2.5 to 3 L supplemental oxygen at baseline. Reports that today every time she ambulates she becomes very short of breath and tachycardic. She states that her oxygen saturations decreased when she is walking she has been wearing 3.5 to 4 L with ambulation. Denies any chest pain, but reports it feels very stuffy. Reports a nonproductive cough. Denies any fevers. Denies any recent sick contact exposures. Reports her last round of antibiotics and steroids was a little over a week ago after she was diagnosed with pneumonia. Denies any DVT or PE history. Is not on any anticoagulation ROS: as above PHYSICAL EXAM: Constitutional: Patient appears in no acute distress. HENT: Head: Normocephalic and atraumatic. Eyes: EOMI, PERRL Mouth/Throat: Mucous membranes moist. Neck: Trachea midline. Neck supple. Cardiovascular: RRR, No murmurs, rubs or gallops. Intact distal pulses. Pulmonary/Chest: No respiratory distress. Breath sounds clear and equal bilaterally. No wheezes or rales. Abdominal: BS +. Abdomen soft, no tenderness, rebound or guarding. Musculoskeletal: No edema, tenderness or deformity noted. Skin: Warm and dry. No rash, erythema, pallor or cyanosis Psychiatric: Appropriate mood and affect for situation. Neurological: Alert and keenly responsive. CN II-XII grossly intact, moving all extremities equally and fully. MDM: - Vitals signs showed hypertension and borderline tachycardia. - History obtained via patient. Patient presents with shortness of breath. Patient reports progressively worsening shortness of breath throughout today. Reports significant worsening with ambulation. She wears 2.5 to 3 L at baseline, but has been increasing her oxygen requirement with ambulation. Reports she last finished a course of steroids and antibiotics over a week ago after being diagnosed with pneumonia. Reports a nonproductive cough. Denies any fevers. Denies any DVT or PE history - Chronic conditions affecting care: COPD (on 2.5-3L NC) - Differential diagnoses include, but are not limited to: Congestive heart failure; acute coronary syndrome; COPD/asthma exacerbation; pulmonary edema; pulmonary embolism; pneumonia; viral syndrome - Order placed for continuous cardiac monitoring. At this time, monitor showed rate of 93 bpm with normal sinus rhythm, per my interpretation. - External medical records reviewed. - EKG reviewed by myself showed normal sinus rhythm. Rate 94 bpm. QTc 447. No acute ischemic changes - Laboratory workup interpreted by myself showed normal WBC; stable electrolytes; normal procalcitonin; normal troponin; normal BNP; elevated dimer (730) - CXR negative for pneumonia, per my interpretation. - CT PE negative for PE. Noted to have a 10 mm pericardial effusion - UA negative for infection - VBG grossly unremarkable. - Patient given 125 mg IV solumedrol. Complaining of leg pain and given 4 mg IV morphine. Given duoneb treatment in ER. - On reassessment, patient reports she does not feel comfortable going home. Reports she feels significantly short of breath. - Discussion was had with geriatric social work professor about patient's case and need for observation. - Hospitalist, Dr. Smith, consulted for admission - Patient admitted to [facility] for further evaluation and management. ASSESSMENT AND PLAN: Diagnosis: COPD exacerbation; pericardial effusion Plan: admit Past Med/Surg History Medical History (Updated 10/24/22 @ 23:37 by Nathalie Gaspar MD) Anxiety with depression Asthma Chronic obstructive pulmonary disease with hypoxia 3L NC PRN Pulm - Min [place] COPD exacerbation COVID Family history of colon cancer Goals of care, counseling/discussion Sleep apnea, obstructive Yeast infection Surgical History H/O partial thyroidectomy 1990s d/t hemorrhaging?--unknown cause, no meds History of broken collarbone sx to repair History of carpal tunnel surgery of right wrist History of partial hysterectomy History of tooth extraction all teeth Family History Mother , from ovarian cancer Cancer Ovarian Sister Cancer Ovarian Father COPD (chronic obstructive pulmonary disease) Other No family history of adverse response to anesthesia Social History Smoking Status: Former smoker Tobacco Type: Cigarettes Age Started Using Tobacco: 17; Age Quit Using Tobacco: 64; packs per day: 1; Cigarettes Per Day: 20; Second Hand Exposure: No; Do You Dip or Chew Tobacco: No; Hx Alcohol Use: No Hx Substance Use: No Preferred Language: Italian 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 Ability: Effective Car Porter 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 Beliefs That Will Affect Care: None marital status: Current Living Situation: Family Current Living Situation Comment: Lives with daughter Virgen Feels Safe at Home: Yes Assistive Devices: Oxygen - Continuous Allergies Allergies Allergy/AdvReac Type Severity Reaction Status Date / Time aspirin AdvReac Intermediate GI SYMPTOMS Verified 10/24/22 18:38 Home Meds Home Medications Medication Instructions Recorded Confirmed ibuprofen 200 mg tablet 400 mg PO Q6H PRN Pain 12/17/21 10/24/22 escitalopram oxalate 10 mg tablet 15 mg PO QAM 08/05/22 10/24/22 (Lexapro) Previous Rx's Medication Instructions Recorded CPAP Machine #1 ea 12/06/19 CPAP Supplies #1 ea 05/11/21 lorazepam 0.5 mg tablet 0.5 mg PO Q8H PRN anxiety #7 tabs 05/17/22 pantoprazole 40 mg tablet,delayed 40 mg PO BID #60 tabs 05/18/22 release diltiazem HCl 180 mg 180 mg PO QAM #30 caps 08/21/22 capsule,extended release 24 hr ProAir HFA 90 mcg/actuation 2 puff inhalation Q4 PRN Shortness 09/03/22 aerosol inhaler (albuterol sulfate) Of Breath Or Wheezing #8.5 grams azithromycin 250 mg tablet 250 mg PO .COMPLEX #36 tabs 09/03/22 fluticasone fur. 200 mcg-umeclid 1 inh inhalation DAILY #60 ea 09/03/22 62.5 mcg-vilant 25 mcg inhalat.powder (Trelegy Ellipta) ipratropium 0.5 mg-albuterol 3 mg 3 ml inhalation QID PRN Shortness 09/03/22 (2.5 mg base)/3 mL nebulization Of Breath #360 mL soln Portable Oxygen #1 ea 09/15/22 budesonide 0.5 mg/2 mL suspension 0.5 mg (2 mL) NEB BIDR #60 mL 10/11/22 for nebulization formoterol fumarate 20 mcg/2 mL 2 ml inhalation Q12H #60 mL 10/11/22 solution for nebulization (Perforomist) Results & Data (ED) Vital Signs Vital Signs - 24 hr 10/24/22 17:30 10/24/22 17:51 10/24/22 17:45 Pulse Rate 97 H 91 H Pulse Rate [Apical] Pulse Rate from SpO2 Sensor Respiratory Rate 20 Respiratory Effort / Characteristics Non-Labored Spontaneous Accessory Muscle Use SOB on Exertion Respiratory Depth Normal Respiratory Pattern Regular Blood Pressure 145/84 H Blood Pressure [Right Arm] Blood Pressure Mean 104 Blood Pressure Mean [Right Arm] Pulse Oximetry 92 Oxygen Delivery Method Nasal Cannula Nasal Cannula Oxygen Flow Rate 3 Sepsis Recent Fever Within 48 Hours No Sepsis New/Unexplained Change in Mental Status No Sepsis Action Taken by Nursing No Action Required 10/24/22 17:45 10/24/22 17:45 10/24/22 17:45 Pulse Rate 90 Pulse Rate [Apical] 90 Pulse Rate from SpO2 Sensor Respiratory Rate 33 H Respiratory Effort / Characteristics Respiratory Depth Respiratory Pattern Blood Pressure Blood Pressure [Right Arm] 132/86 Blood Pressure Mean Blood Pressure Mean [Right Arm] 101 Pulse Oximetry 98 Oxygen Delivery Method Nasal Cannula Nasal Cannula Room Air Oxygen Flow Rate 3 3 Sepsis Recent Fever Within 48 Hours Sepsis New/Unexplained Change in Mental Status Sepsis Action Taken by Nursing 10/24/22 18:27 10/24/22 18:27 10/24/22 17:51 Pulse Rate 90 Pulse Rate [Apical] Pulse Rate from SpO2 Sensor 91 H Respiratory Rate 27 H Respiratory Effort / Characteristics Respiratory Depth Respiratory Pattern Blood Pressure Blood Pressure [Right Arm] Blood Pressure Mean Blood Pressure Mean [Right Arm] Pulse Oximetry 94 Oxygen Delivery Method Nasal Cannula Room Air Oxygen Flow Rate Sepsis Recent Fever Within 48 Hours Sepsis New/Unexplained Change in Mental Status Sepsis Action Taken by Nursing 10/24/22 18:00 10/24/22 18:30 10/24/22 19:00 Pulse Rate 88 90 89 Pulse Rate [Apical] Pulse Rate from SpO2 Sensor 89 90 89 Respiratory Rate 36 H 27 H 34 H Respiratory Effort / Characteristics Respiratory Depth Respiratory Pattern Blood Pressure Blood Pressure [Right Arm] Blood Pressure Mean Blood Pressure Mean [Right Arm] Pulse Oximetry 94 97 98 Oxygen Delivery Method Nasal Cannula Oxygen Flow Rate 3 Sepsis Recent Fever Within 48 Hours Sepsis New/Unexplained Change in Mental Status Sepsis Action Taken by Nursing 10/24/22 20:04 10/24/22 20:30 10/24/22 21:00 Pulse Rate 86 85 Pulse Rate [Apical] Pulse Rate from SpO2 Sensor 87 86 85 Respiratory Rate 29 H 32 H Respiratory Effort / Characteristics Respiratory Depth Respiratory Pattern Blood Pressure Blood Pressure [Right Arm] Blood Pressure Mean Blood Pressure Mean [Right Arm] Pulse Oximetry 94 98 97 Oxygen Delivery Method Nasal Cannula Oxygen Flow Rate 3 Sepsis Recent Fever Within 48 Hours Sepsis New/Unexplained Change in Mental Status Sepsis Action Taken by Nursing 10/24/22 21:30 10/24/22 22:00 10/24/22 19:27 Pulse Rate 88 88 Pulse Rate [Apical] Pulse Rate from SpO2 Sensor 88 89 Respiratory Rate 27 H 27 H Respiratory Effort / Characteristics Respiratory Depth Respiratory Pattern Blood Pressure 162/92 H Blood Pressure [Right Arm] Blood Pressure Mean 115 Blood Pressure Mean [Right Arm] Pulse Oximetry 97 98 96 Oxygen Delivery Method Nasal Cannula Nasal Cannula Nasal Cannula Oxygen Flow Rate 3 3 3 Sepsis Recent Fever Within 48 Hours Sepsis New/Unexplained Change in Mental Status Sepsis Action Taken by Nursing 10/24/22 21:27 10/24/22 22:15 10/24/22 22:30 Pulse Rate 88 87 Pulse Rate [Apical] Pulse Rate from SpO2 Sensor 88 87 Respiratory Rate 32 H 40 H Respiratory Effort / Characteristics Respiratory Depth Respiratory Pattern Blood Pressure Blood Pressure [Right Arm] Blood Pressure Mean Blood Pressure Mean [Right Arm] Pulse Oximetry 96 96 96 Oxygen Delivery Method Nasal Cannula Oxygen Flow Rate 3 Sepsis Recent Fever Within 48 Hours Sepsis New/Unexplained Change in Mental Status Sepsis Action Taken by Nursing 10/24/22 22:45 Pulse Rate 85 Pulse Rate [Apical] Pulse Rate from SpO2 Sensor 85 Respiratory Rate 28 H Respiratory Effort / Characteristics Respiratory Depth Respiratory Pattern Blood Pressure 149/81 H Blood Pressure [Right Arm] Blood Pressure Mean 103 Blood Pressure Mean [Right Arm] Pulse Oximetry 94 Oxygen Delivery Method Oxygen Flow Rate Sepsis Recent Fever Within 48 Hours Sepsis New/Unexplained Change in Mental Status Sepsis Action Taken by Nursing Laboratory Data 10/24/22 18:11 10/24/22 18:11 Lab Results 10/24/22 10/24/22 10/24/22 Range/Units 15:35 18:11 18:11 WBC 8.97 (4.8-10.8) K/ul RBC 4.13 L (4.20-5.40) M/uL Hgb 12.3 (12.0-16.0) g/dl Hct 36.5 L (37.0-47.0) % MCV 88.4 (80.0-100.0) fL MCH 29.8 (25.0-34.0) pg MCHC 33.7 (32.0-36.0) g/dL RDW Std Deviation 43.5 (36.4-46.3) fL RDW Coeff of Audrey 13.5 (11.5-14.5) % Plt Count 277 (130-400) K/uL MPV 9.6 (9.4-12.4) fL Immature Gran % (Auto) 0.3 % Neut % (Auto) 69.0 % Lymph % (Auto) 17.2 % Miller % (Auto) 10.3 % Eos % (Auto) 2.5 % Baso % (Auto) 0.7 % Neut # (Auto) 6.20 (1.40-6.50) K/uL Lymph # (Auto) 1.54 (1.2-3.4) K/uL Miller # (Auto) 0.92 H (0.11-0.59) K/uL Eos # (Auto) 0.22 (0-0.50) K/uL Baso # (Auto) 0.06 (0-0.2) K/uL Immature Gran # (Auto) 0.03 (0.01-0.20) K/uL D-Dimer (0-500) ug/L FEU VBG pH (7.36-7.41) VBG pCO2 (38-50) mmHg VBG pO2 mmHg VBG HCO3 mmol/L VBG O2 Saturation % VBG Base Excess mEq/L Sodium 138 (136-145) mmol/L Potassium 4.0 (3.5-5.1) mmol/L Chloride 104 (98-107) mmol/L Carbon Dioxide 27 (21-32) mmol/L Anion Gap 7 (3-11) BUN 15 (6-23) mg/dl Creatinine 0.96 (0.6-1.2) mg/dl Est Cr Clr Drug Dosing Not Reportable Est GFR ( Amer) 70.4 ml/min Est GFR (Non-Af Amer) 60.8 ml/min BUN/Creatinine Ratio 15.6 (10-20) Glucose 98 (70-99(Fasting)) mg/dl Calcium 8.8 (8.6-10.3) mg/dl Magnesium 2.0 (1.7-2.4) mg/dl Total Bilirubin 0.4 (0.2-1.0) mg/dl AST 17 (13-39) U/L ALT 21 (7-52) U/L Alkaline Phosphatase 67 (34-104) U/L Troponin I High Sens 4.2 (0-14) pg/ml B-Natriuretic Peptide (0-100) pg/ml Total Protein 6.2 (6.0-8.3) gm/dl Albumin 3.8 (3.4-5.0) gm/dl Globulin 2.4 L (2.5-4.0) gm/dl Albumin/Globulin Ratio 1.6 (0.9-2) Procalcitonin (0-0.5) ng/ml Urine Color Urine Appearance (Clear) Urine pH (4.5-7.5) Ur Specific [place] (1.000-1.030) Urine Protein (Negative) Urine Glucose (UA) (Negative) Urine Ketones (Negative) Urine Blood (Negative) Urine Nitrite (Negative) Urine Bilirubin (Negative) Urine Urobilinogen (Negative) Ur Leukocyte Esterase (Negative) Adenovirus (PCR) Not Detected (NotDetected) B. pertussis DNA (PCR) Not Detected (NotDetected) B.parapertussis DNA PCR Not Detected (NotDetected) C. pneumoniae DNA (PCR) Not Detected (NotDetected) Coronavirus OC43 (PCR) Not Detected (NotDetected) Coronavirus HKU1 (PCR) Not Detected (NotDetected) Coronavirus 229E (PCR) Not Detected (NotDetected) SARS-CoV-2 (PCR) Not Detected (NotDetected) Coronavirus NL63 (PCR) Not Detected (NotDetected) Human Metapneumovir PCR Not Detected (NotDetected) Influenza Type A (PCR) Not Detected (NotDetected) Influenza Type B (PCR) Not Detected (NotDetected) M. pneumoniae (PCR) Not Detected (NotDetected) Parainfluenza 1 (PCR) Not Detected (NotDetected) Parainfluenza 2 (PCR) Not Detected (NotDetected) Parainfluenza 3 (PCR) Not Detected (NotDetected) Parainfluenza 4 (PCR) Not Detected (NotDetected) RSV (PCR) Not Detected (NotDetected) Entero/Rhino (PCR) Not Detected (NotDetected) 10/24/22 10/24/22 10/24/22 Range/Units 18:11 18:11 18:11 WBC (4.8-10.8) K/ul RBC (4.20-5.40) M/uL Hgb (12.0-16.0) g/dl Hct (37.0-47.0) % MCV (80.0-100.0) fL MCH (25.0-34.0) pg MCHC (32.0-36.0) g/dL RDW Std Deviation (36.4-46.3) fL RDW Coeff of Audrey (11.5-14.5) % Plt Count (130-400) K/uL MPV (9.4-12.4) fL Immature Gran % (Auto) % Neut % (Auto) % Lymph % (Auto) % Miller % (Auto) % Eos % (Auto) % Baso % (Auto) % Neut # (Auto) (1.40-6.50) K/uL Lymph # (Auto) (1.2-3.4) K/uL Miller # (Auto) (0.11-0.59) K/uL Eos # (Auto) (0-0.50) K/uL Baso # (Auto) (0-0.2) K/uL Immature Gran # (Auto) (0.01-0.20) K/uL D-Dimer 730 H* (0-500) ug/L FEU VBG pH 7.42 H (7.36-7.41) VBG pCO2 42 (38-50) mmHg VBG pO2 57 mmHg VBG HCO3 27 mmol/L VBG O2 Saturation 89.5 % VBG Base Excess 2.4 mEq/L Sodium (136-145) mmol/L Potassium (3.5-5.1) mmol/L Chloride (98-107) mmol/L Carbon Dioxide (21-32) mmol/L Anion Gap (3-11) BUN (6-23) mg/dl Creatinine (0.6-1.2) mg/dl Est Cr Clr Drug Dosing Est GFR ( Amer) ml/min Est GFR (Non-Af Amer) ml/min BUN/Creatinine Ratio (10-20) Glucose (70-99(Fasting)) mg/dl Calcium (8.6-10.3) mg/dl Magnesium (1.7-2.4) mg/dl Total Bilirubin (0.2-1.0) mg/dl AST (13-39) U/L ALT (7-52) U/L Alkaline Phosphatase (34-104) U/L Troponin I High Sens (0-14) pg/ml B-Natriuretic Peptide 11 (0-100) pg/ml Total Protein (6.0-8.3) gm/dl Albumin (3.4-5.0) gm/dl Globulin (2.5-4.0) gm/dl Albumin/Globulin Ratio (0.9-2) Procalcitonin (0-0.5) ng/ml Urine Color Urine Appearance (Clear) Urine pH (4.5-7.5) Ur Specific [place] (1.000-1.030) Urine Protein (Negative) Urine Glucose (UA) (Negative) Urine Ketones (Negative) Urine Blood (Negative) Urine Nitrite (Negative) Urine Bilirubin (Negative) Urine Urobilinogen (Negative) Ur Leukocyte Esterase (Negative) Adenovirus (PCR) (NotDetected) B. pertussis DNA (PCR) (NotDetected) B.parapertussis DNA PCR (NotDetected) C. pneumoniae DNA (PCR) (NotDetected) Coronavirus OC43 (PCR) (NotDetected) Coronavirus HKU1 (PCR) (NotDetected) Coronavirus 229E (PCR) (NotDetected) SARS-CoV-2 (PCR) (NotDetected) Coronavirus NL63 (PCR) (NotDetected) Human Metapneumovir PCR (NotDetected) Influenza Type A (PCR) (NotDetected) Influenza Type B (PCR) (NotDetected) M. pneumoniae (PCR) (NotDetected) Parainfluenza 1 (PCR) (NotDetected) Parainfluenza 2 (PCR) (NotDetected) Parainfluenza 3 (PCR) (NotDetected) Parainfluenza 4 (PCR) (NotDetected) RSV (PCR) (NotDetected) Entero/Rhino (PCR) (NotDetected) 10/24/22 10/24/22 Range/Units 18:11 19:51 WBC (4.8-10.8) K/ul RBC (4.20-5.40) M/uL Hgb (12.0-16.0) g/dl Hct (37.0-47.0) % MCV (80.0-100.0) fL MCH (25.0-34.0) pg MCHC (32.0-36.0) g/dL RDW Std Deviation (36.4-46.3) fL RDW Coeff of Audrey (11.5-14.5) % Plt Count (130-400) K/uL MPV (9.4-12.4) fL Immature Gran % (Auto) % Neut % (Auto) % Lymph % (Auto) % Miller % (Auto) % Eos % (Auto) % Baso % (Auto) % Neut # (Auto) (1.40-6.50) K/uL Lymph # (Auto) (1.2-3.4) K/uL Miller # (Auto) (0.11-0.59) K/uL Eos # (Auto) (0-0.50) K/uL Baso # (Auto) (0-0.2) K/uL Immature Gran # (Auto) (0.01-0.20) K/uL D-Dimer (0-500) ug/L FEU VBG pH (7.36-7.41) VBG pCO2 (38-50) mmHg VBG pO2 mmHg VBG HCO3 mmol/L VBG O2 Saturation % VBG Base Excess mEq/L Sodium (136-145) mmol/L Potassium (3.5-5.1) mmol/L Chloride (98-107) mmol/L Carbon Dioxide (21-32) mmol/L Anion Gap (3-11) BUN (6-23) mg/dl Creatinine (0.6-1.2) mg/dl Est Cr Clr Drug Dosing Est GFR ( Amer) ml/min Est GFR (Non-Af Amer) ml/min BUN/Creatinine Ratio (10-20) Glucose (70-99(Fasting)) mg/dl Calcium (8.6-10.3) mg/dl Magnesium (1.7-2.4) mg/dl Total Bilirubin (0.2-1.0) mg/dl AST (13-39) U/L ALT (7-52) U/L Alkaline Phosphatase (34-104) U/L Troponin I High Sens (0-14) pg/ml B-Natriuretic Peptide (0-100) pg/ml Total Protein (6.0-8.3) gm/dl Albumin (3.4-5.0) gm/dl Globulin (2.5-4.0) gm/dl Albumin/Globulin Ratio (0.9-2) Procalcitonin 0.05 (0-0.5) ng/ml Urine Color Yellow Urine Appearance Clear (Clear) Urine pH 7.0 (4.5-7.5) Ur Specific [place] 1.019 (1.000-1.030) Urine Protein Negative (Negative) Urine Glucose (UA) Negative (Negative) Urine Ketones Negative (Negative) Urine Blood Negative (Negative) Urine Nitrite Negative (Negative) Urine Bilirubin Negative (Negative) Urine Urobilinogen Negative (Negative) Ur Leukocyte Esterase Negative (Negative) Adenovirus (PCR) (NotDetected) B. pertussis DNA (PCR) (NotDetected) B.parapertussis DNA PCR (NotDetected) C. pneumoniae DNA (PCR) (NotDetected) Coronavirus OC43 (PCR) (NotDetected) Coronavirus HKU1 (PCR) (NotDetected) Coronavirus 229E (PCR) (NotDetected) SARS-CoV-2 (PCR) (NotDetected) Coronavirus NL63 (PCR) (NotDetected) Human Metapneumovir PCR (NotDetected) Influenza Type A (PCR) (NotDetected) Influenza Type B (PCR) (NotDetected) M. pneumoniae (PCR) (NotDetected) Parainfluenza 1 (PCR) (NotDetected) Parainfluenza 2 (PCR) (NotDetected) Parainfluenza 3 (PCR) (NotDetected) Parainfluenza 4 (PCR) (NotDetected) RSV (PCR) (NotDetected) Entero/Rhino (PCR) (NotDetected) Administered Medications Discontinued Medications Albuterol (Albut/Ipratrop 3mg/0.5mg Neb 3 Ml Vial) 3 ml NEB NOW STA; Protocol Stop: 07/09/23 19:34 Last Admin: 10/24/22 19:36 Dose: 3 ml Documented By: AURELIO Ioversol (Optiray 320 125ml) 121 ml IV ONCE ONE Stop: 10/24/22 19:55 Last Admin: 10/24/22 19:55 Dose: 121 ml Documented By: GAVI Methylprednisolone (Methylprednisolone 125 Mg/2 Ml Vial) 125 mg IV NOW STA Stop: 10/24/22 22:20 Last Admin: 10/24/22 22:28 Dose: 125 mg Documented By: AURELIO Morphine Sulfate (Morphine Sulfate 4 Mg/Ml 1 Ml Carp\Vial) 4 mg IV NOW STA Stop: 10/24/22 21:43 Last Admin: 10/24/22 22:27 Dose: 4 mg Documented By: AURELIO Imaging Data Radiologist's Impression: Chest X-Ray 10/24/22 17:50 XR chest 2V PA/lateral HISTORY: 67 years-old Female Dyspnea; cough acute cough COMPARISON: 10/06/2022 TECHNIQUE: PA and lateral views of the chest FINDINGS: Cardiomediastinal and hilar silhouettes are unchanged. Chronic interstitial coarsening of the lungs with emphysema. No pneumothorax, pleural effusion, airspace consolidation or pulmonary edema. Bones of the chest appear grossly intact. IMPRESSION: Emphysema without acute process. ACT 112: Negative or not required by law. The above report was generated using voice recognition software. It may contain grammatical, syntax or spelling errors. Electronically signed by: Landon Lechuga M.D. 10/24/2022 6:31 PM Chest CTA 10/24/22 19:23 CR Exam(s): CTA CHEST IV Amt: 121 ML OPTIRAY 320 EXAM: CT Angiography Chest With Intravenous Contrast CLINICAL HISTORY: Pulmonary embolus. TECHNIQUE: Axial computed tomographic angiography images of the chest with intravenous contrast. CTDI is 18.63 mGy and DLP is 652.87 mGy-cm. Automated exposure control was utilized for the study. A dose lowering technique was utilized adhering to the principles of ALARA. MIP reconstructed images were created and reviewed. COMPARISON: CTA 10/04/2022 FINDINGS: Pulmonary arteries: Unremarkable. No pulmonary embolus. Aorta: Minimal atherosclerosis. No thoracic aortic aneurysm. Lungs: Marked emphysema. There is an 8 mm round subpleural nodule of the right middle lobe, no follow-up is needed. Pleural space: Unremarkable. No significant effusion. No pneumothorax. Heart: A pericardial effusion measures up to 10 mm. This demonstrates Hounsfield units more dense than expected for a simple effusion. No evidence of RV dysfunction. Mediastinum: Unchanged hilar lymphadenopathy measures up to 1 cm. Thyroid: Incidentally noted 1.1 cm left thyroid nodule which demonstrates a Zuckerkandl tubercle. Bones/joints: There are degenerative changes of the spine. No fracture. Soft tissues: Unremarkable. Lymph nodes: See above. IMPRESSION: 1. No pulmonary embolus. 2. A pericardial effusion measures up to 10 mm. This demonstrates Hounsfield units more dense than expected for a simple effusion. The etiology could be infectious, inflammatory or secondary to blood products. 3. Marked emphysema. 4. Incidentally noted 1.1 cm left thyroid nodule which demonstrates a Zuckerkandl tubercle. No follow up is needed given the size. 5. Unchanged hilar lymphadenopathy measures up to 1 cm. This is nonspecific. 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s: Verify Receipt Electronically signed by: Yanely Weiss MD 10/24/22 23:32 PM Discharge Plan Visit Data Chief Complaint: Respiratory Problems Stated Complaint: COPD ED Provider: Nathalie Gaspar Discharge Problem: Acute exacerbation of chronic obstructive pulmonary disease, Acute pericardial effusion Forms Stand Alone Forms: [facility] Prescriptions Prescriptions: No Action Trelegy Ellipta 200-62.5-25 mcg blister with device 1 inh inhalation DAILY Qty: 60 8RF azithromycin 250 mg tablet 250 mg PO .COMPLEX Qty: 36 3RF Rx Instructions: 250 mg PO 1 tab p.o. on [id number]; albuterol sulfate [ProAir HFA] 90 mcg/actuation HFA aerosol inhaler 2 puff Inhalation Q4 PRN (Reason: Shortness Of Breath Or Wheezing) Qty: 8.5 3RF ipratropium-albuterol 0.5 mg-3 mg(2.5 mg base)/3 mL solution for nebulization 3 ml INH QID PRN (Reason: Shortness Of Breath) Qty: 360 5RF (DME) CPAP Machine Misc See Rx Instructions .MEDSUPPLY Qty: 1 0RF Rx Instructions: Auto-titration CPAP with pressure range between 5 cm H2O and 15 cm H2O with humidification. Lifetime need. (DME) CPAP Supplies Misc See Rx Instructions .MEDSUPPLY Qty: 1 0RF Rx Instructions: Refitting of the mask. G47.33 (DME) Portable Oxygen Misc See Rx Instructions .Route Qty: 1 0RF Rx Instructions: portable oxygen concentrator- 3LPM on exertion via n/c. SILVIA:99 ibuprofen 200 mg Tablet 400 mg PO Q6H PRN (Reason: Pain) lorazepam 0.5 mg tablet 0.5 mg PO Q8H PRN (Reason: anxiety) Qty: 7 0RF pantoprazole 40 mg Tablet,Delayed Release (Dr/Ec) 40 mg PO BID Qty: 60 0RF escitalopram oxalate [Lexapro] 10 mg tablet 15 mg PO QAM diltiazem HCl 180 mg Capsule,Extended Release 24hr 180 mg PO QAM Qty: 30 0RF formoterol fumarate [Perforomist] 20 mcg/2 mL solution for nebulization 2 ml inhalation Q12H Qty: 60 0RF budesonide 0.5 mg/2 mL Suspension For Nebulization 0.5 mg NEB BIDR Qty: 60 0RF Referrals Referrals: PCP,NO [Physician] -
--- NOTE | 2022-10-24 18:32 | XRay Report ---
XR chest 2V PA/lateral HISTORY: 67 years-old Female Dyspnea; cough acute cough COMPARISON: 10/06/2022 TECHNIQUE: PA and lateral views of the chest FINDINGS: Cardiomediastinal and hilar silhouettes are unchanged. Chronic interstitial coarsening of the lungs w ith emphysema. No pneumothorax, pleural effusion, airspace consolidation or pulmonary edema. Bones of the chest appear grossly intact. IMPRESSION: Emphysema without acute process. ACT 112: Negative or not required by law. The above report was generated using voice recognition software. It may contain grammatical, syntax o r spelling errors. Electronically signed by: Landon Lechuga M.D. 10/24/2022 6:31 PM
[2022-10-24 18:40] LABS: Base Excess VBG 2.4 mEq/L; Basophils # (auto) 0.06 K/uL (0-0.2); Basophils % (auto) 0.7 %; Eosinophils # (auto) 0.22 K/uL (0-0.50); Eosinophils % (auto) 2.5 %; HCO3 VBG 27 mmol/L; Hematocrit (blood only) 36.5 % (37.0-47.0); Hemoglobin 12.3 g/dl (12.0-16.0); Immature Granulocytes # (auto) 0.03 K/uL (0.01-0.20); Immature Granulocytes % (auto) 0.3 %; Lymphocytes # (auto) 1.54 K/uL (1.2-3.4); Lymphocytes % (auto) 17.2 %; Mean Corpuscular Hemoglobin 29.8 pg (25.0-34.0); Mean Corpuscular Hgb Conc 33.7 g/dL (32.0-36.0); Mean Corpuscular Volume 88.4 fL (80.0-100.0); Mean Platelet Volume 9.6 fL (9.4-12.4); Monocytes # (auto) 0.92 K/uL (0.11-0.59); Monocytes % (auto) 10.3 %; Oxygen Saturation VBG 89.5 %; PCO2 VBG 42 mmHg (38-50); PO2 VBG 57 mmHg; Platelet Count 277 K/uL (130-400); RDW Coefficient of Variation 13.5 % (11.5-14.5); RDW Standard Deviation 43.5 fL (36.4-46.3); Red Blood Count 4.13 M/uL (4.20-5.40); White Blood Count 8.97 K/ul (4.8-10.8); pH VBG 7.42 (7.36-7.41)
[2022-10-24 18:59] LABS: Albumin Level 3.8 gm/dl (3.4-5.0); Anion Gap 7 (3-11); Bilirubin,Total 0.4 mg/dl (0.2-1.0); Calcium 8.8 mg/dl (8.6-10.3); Carbon Dioxide 27 mmol/L (21-32); Chloride 104 mmol/L (98-107); Sodium 138 mmol/L (136-145)
[2022-10-24 19:05] LABS: Alanine Aminotransferase 21 U/L (7-52); Albumin Globulin Ratio 1.6 (0.9-2); Alkaline Phosphatase 67 U/L (34-104); Aspartate Aminotransferase 17 U/L (13-39); BUN Creatinine Ratio 15.6 (10-20); Blood Urea Nitrogen 15 mg/dl (6-23); Est GFR (African American) 70.4 ml/min; Est GFR (Non-African American) 60.8 ml/min; Globulin 2.4 gm/dl (2.5-4.0); Glucose 98 mg/dl (70-99(Fasting)); Total Protein 6.2 gm/dl (6.0-8.3)
[2022-10-24 19:07] LABS: Troponin I High Sensitivity 4.2 pg/ml (0-14)
[2022-10-24 19:22] LABS: D Dimer 730 ug/L FEU (0-500)
[2022-10-24] MEDS ORDERED: ALBUT/IPRATROP 3MG/0.5MG NEB 3 ML VIAL NEB STA (19:33)
[2022-10-24 19:49] LABS: Adenovirus PCR Not Detected (NotDetected); Bordetella parapertussis PCR Not Detected (NotDetected); Bordetella pertussis PCR Not Detected (NotDetected); Chlamydia pneumoniae PCR Not Detected (NotDetected); Coronavirus 229E PCR Not Detected (NotDetected); Coronavirus CoV-2 (COVID19)PCR Not Detected (NotDetected); Coronavirus HKU1 PCR Not Detected (NotDetected); Coronavirus NL63 PCR Not Detected (NotDetected); Coronavirus OC43PCR Not Detected (NotDetected); Human Metapneumovirus PCR Not Detected (NotDetected); Influenza A PCR Not Detected (NotDetected); Influenza B PCR Not Detected (NotDetected); Mycoplasma pneumoniae PCR Not Detected (NotDetected); Parainfluenza Virus 1 PCR Not Detected (NotDetected); Parainfluenza Virus 2 PCR Not Detected (NotDetected); Parainfluenza Virus 3 PCR Not Detected (NotDetected); Parainfluenza Virus 4 PCR Not Detected (NotDetected); Respiratory Syncytial VirusPCR Not Detected (NotDetected); Rhinovirus/Enterovirus PCR Not Detected (NotDetected)
[2022-10-24] MEDS ORDERED: OPTIRAY 320 125ml IV ONE (19:54)
[2022-10-24 19:59] LABS: Appearance Urine Clear (Clear); Bilirubin Urine Negative (Negative); Blood Urine Negative (Negative); Color Urine Yellow; Glucose Urine UA Negative (Negative); Ketones Urine Negative (Negative); Leukocyte Esterase Urine Negative (Negative); Nitrite Urine Negative (Negative); Protein Urine Negative (Negative); Specific Gravity Urine 1.019 (1.000-1.030); Urobilinogen Urine Negative (Negative)
[2022-10-24] MEDS ORDERED: MoRPHine SULFATE 4 MG/ML 1 ML CARP\\VIAL IV STA (21:42)
[2022-10-24] MEDS ORDERED: methylPREDNISolone 125 MG/2 ML VIAL IV STA (22:19)
--- NOTE | 2022-10-24 23:30 | History & Physical Report ---
Date of Service October 24, 2022 Assessment & Plan (1) Acute exacerbation of chronic obstructive pulmonary disease: (2) Acute respiratory failure with hypoxia and hypercapnia: (3) Acute pericardial effusion: (4) Paroxysmal atrial tachycardia: (5) Anxiety with depression: (6) COPD exacerbation: (7) History of tobacco use: (8) Sleep apnea, obstructive: (9) Multiple pulmonary nodules: Plan acute on chronic respiratory failure with hypoxia/COPD exacerbation/history of tobacco abuse- Received Solu-Medrol 125 mg IV and a DuoNeb treatment in the ED Solu-Medrol 40 mg IV every 6 hours Duonebs every 4 hours while awake and every 2 hours when necessary. Pulmicort Respules 0.5 mg inhaled twice daily Guaifenesin extended release 1200 mg p.o. twice daily Azithromycin 250 mg by mouth daily continue inhalers CTA PE protocol negative for PE, positive for marked emphysema, unchanged hilar lymphadenopathy measuring up to 1 cm consult pulmonology pericardial effusion/paroxysmal atrial tachycardia/hypertension- Pericardial effusion measuring up to 10 mm in size seen on CTA PE protocol. Density greater than expected for simple effusion, therefore could be infectious, inflammatory or secondary to blood products Order follow-up echocardiogram order EBV, CMV, parvovirus, tickborne panel, CHESTER and rheumatoid factor Consult cardiology thyroid nodule- 1.1 cm left thyroid nodule noted on CT can be followed up as outpatient GERD- Continue pantoprazole History of Present Illness Chief Complaint: the patient presents to the emergency department with ongoing shortness of breath, that is worsened over the past 24 to 48 hours despite her usual oxygen supplementation, and inhalers and nebulizers Primary Care Provider: Armando Carter MD the patient is a 67-year-old female with a past medical history including COPD, pneumonia, acute respiratory failure, acid reflux, COVID-19, ex-smoker, ALHAJI, and history of multiple admissions for COPD exacerbations. She presents with symptoms similar to previous exacerbations. She reports that she is being scheduled to be put on lung transplant list. Allergies Allergy/AdvReac Type Severity Reaction Status Date / Time aspirin AdvReac Intermediate GI SYMPTOMS Verified 10/24/22 18:38 Home Medications Medication Instructions Recorded Confirmed Type CPAP Machine #1 ea 12/06/19 10/06/22 Rx CPAP Supplies #1 ea 05/11/21 10/06/22 Rx ibuprofen 200 mg tablet 400 mg PO Q6H PRN Pain 12/17/21 10/24/22 History lorazepam 0.5 mg tablet 0.5 mg PO Q8H PRN anxiety #7 tabs 05/17/22 10/24/22 Rx pantoprazole 40 mg tablet,delayed 40 mg PO BID #60 tabs 05/18/22 10/24/22 Rx release escitalopram oxalate 10 mg tablet 15 mg PO QAM 08/05/22 10/24/22 History (Lexapro) diltiazem HCl 180 mg 180 mg PO QAM #30 caps 08/21/22 10/24/22 Rx capsule,extended release 24 hr ProAir HFA 90 mcg/actuation 2 puff inhalation Q4 PRN Shortness 09/03/22 10/24/22 Rx aerosol inhaler (albuterol sulfate) Of Breath Or Wheezing #8.5 grams azithromycin 250 mg tablet 250 mg PO .COMPLEX #36 tabs 09/03/22 10/24/22 Rx fluticasone fur. 200 mcg-umeclid 1 inh inhalation DAILY #60 ea 09/03/22 10/24/22 Rx 62.5 mcg-vilant 25 mcg inhalat.powder (Trelegy Ellipta) ipratropium 0.5 mg-albuterol 3 mg 3 ml inhalation QID PRN Shortness 09/03/22 10/24/22 Rx (2.5 mg base)/3 mL nebulization Of Breath #360 mL soln Portable Oxygen #1 ea 09/15/22 10/06/22 Rx budesonide 0.5 mg/2 mL suspension 0.5 mg (2 mL) NEB BIDR #60 mL 10/11/22 10/24/22 Rx for nebulization formoterol fumarate 20 mcg/2 mL 2 ml inhalation Q12H #60 mL 10/11/22 10/24/22 Rx solution for nebulization (Perforomist) Past Med/Surg History Medical History (Updated 10/24/22 @ 23:37 by Nathalie Gaspar MD) Anxiety with depression Asthma Chronic obstructive pulmonary disease with hypoxia 3L NC PRN Pulm - Min [place] COPD exacerbation COVID Family history of colon cancer Goals of care, counseling/discussion Sleep apnea, obstructive Yeast infection Surgical History H/O partial thyroidectomy 1990s d/t hemorrhaging?--unknown cause, no meds History of broken collarbone sx to repair History of carpal tunnel surgery of right wrist History of partial hysterectomy History of tooth extraction all teeth Family History Mother , from ovarian cancer Cancer Ovarian Sister Cancer Ovarian Father COPD (chronic obstructive pulmonary disease) Other No family history of adverse response to anesthesia Social History Smoking Status: Former smoker Tobacco Type: Cigarettes Age Started Using Tobacco: 17; Age Quit Using Tobacco: 64; packs per day: 1; Cigarettes Per Day: 20; Second Hand Exposure: No; Do You Dip or Chew Tobacco: No; Hx Alcohol Use: No Hx Substance Use: No Preferred Language: [place] 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 Ability: Effective 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 Beliefs That Will Affect Care: None marital status: Current Living Situation: Family Current Living Situation Comment: Lives with daughter Virgen Feels Safe at Home: Yes Assistive Devices: Oxygen - Continuous Review of Systems Review of Systems: The patient denies chest pain, palpitations, lower extremity swelling, sore throat, fevers, chills, sweats, nausea, vomiting, diarrhea , constipation, abdominal pain, pelvic pain, blood in urine or stool, dysuria, urinary frequency or urgency, lightheadedness, dizziness, headache, memory loss, loss of consciousness, rash, abnormal bruising or bleeding, imbalance, focal weakness, numbness or tingling in arms or legs, generalized arthralgias or myalgias, back or neck pain, or night sweats. The review of systems is otherwise negative other than for that already noted above, and at least 10 systems have been reviewed. Physical Exam Physical Exam: The patient is awake, alert and oriented 3, well developed and well nourished, normocephalic and atraumatic, lying in bed and in no acute distress. HEENT--PERRL, EOMI, mucous membranes and oropharynx dry. Neck--supple. No JVD. No bruits. Thyroid normal, trachea midline, no adenopathy. Heart--normal S1 and S2. No murmurs, rubs or gallops. Lungs-- Decreased breath sounds throughout. no respiratory distress, no accessory muscle use. Abdomen--normal bowel sounds and soft. Nontender. Nondistended, no hernias or masses, no organomegaly. Extremities--no cyanosis or clubbing. No edema. There are good distal pulses b/l. Dermatologic--normal skin turgor, normal color, no abnormal lymph nodes, no rash. Neurologic--cranial nerves II through XII grossly intact. Rheumatologic--normal range of motion. Psychiatric--normal affect. Results & Data Results & Data Vital Signs (Past 12 Hours) Vital Signs Pulse Pulse Resp BP BP Pulse Ox O2 Del Method 10/24/22 22:45 85 28 H 149/81 H 94 10/24/22 22:30 87 40 H 96 10/24/22 22:15 88 32 H 96 10/24/22 21:27 96 Nasal Cannula 10/24/22 19:27 96 Nasal Cannula 10/24/22 22:00 88 27 H 98 Nasal Cannula 10/24/22 21:30 88 27 H 162/92 H 97 Nasal Cannula 10/24/22 21:00 85 32 H 97 Nasal Cannula 10/24/22 20:30 86 29 H 98 10/24/22 20:04 94 10/24/22 19:00 89 34 H 98 Nasal Cannula 10/24/22 18:30 90 27 H 97 10/24/22 18:00 88 36 H 94 10/24/22 17:51 90 27 H 94 10/24/22 18:27 Room Air 10/24/22 18:27 Nasal Cannula 10/24/22 17:45 90 Room Air 10/24/22 17:45 90 33 H 132/86 98 Nasal Cannula 10/24/22 17:45 Nasal Cannula 10/24/22 17:45 Nasal Cannula 10/24/22 17:51 91 H 10/24/22 17:30 97 H 20 145/84 H 92 Nasal Cannula O2 Flow Rate 10/24/22 22:45 10/24/22 22:30 10/24/22 22:15 10/24/22 21:27 3 10/24/22 19:27 3 10/24/22 22:00 3 10/24/22 21:30 3 10/24/22 21:00 3 10/24/22 20:30 10/24/22 20:04 10/24/22 19:00 3 10/24/22 18:30 10/24/22 18:00 10/24/22 17:51 10/24/22 18:27 10/24/22 18:27 10/24/22 17:45 10/24/22 17:45 3 10/24/22 17:45 3 10/24/22 17:45 3 10/24/22 17:51 10/24/22 17:30 Laboratory Results Laboratory Results WBC 8.97 K/ul (4.8-10.8) 10/24/22 18:11 RBC 4.13 M/uL (4.20-5.40) L 10/24/22 18:11 Hgb 12.3 g/dl (12.0-16.0) 10/24/22 18:11 Hct 36.5 % (37.0-47.0) L 10/24/22 18:11 MCV 88.4 fL (80.0-100.0) 10/24/22 18:11 MCH 29.8 pg (25.0-34.0) 10/24/22 18:11 MCHC 33.7 g/dL (32.0-36.0) 10/24/22 18:11 RDW Std Deviation 43.5 fL (36.4-46.3) 10/24/22 18:11 RDW Coeff of Audrey 13.5 % (11.5-14.5) 10/24/22 18:11 Plt Count 277 K/uL (130-400) 10/24/22 18:11 MPV 9.6 fL (9.4-12.4) 10/24/22 18:11 Immature Gran % (Auto) 0.3 % 10/24/22 18:11 Neut % (Auto) 69.0 % 10/24/22 18:11 Lymph % (Auto) 17.2 % 10/24/22 18:11 Harper % (Auto) 10.3 % 10/24/22 18:11 Eos % (Auto) 2.5 % 10/24/22 18:11 Baso % (Auto) 0.7 % 10/24/22 18:11 Neut # (Auto) 6.20 K/uL (1.40-6.50) 10/24/22 18:11 Lymph # (Auto) 1.54 K/uL (1.2-3.4) 10/24/22 18:11 Harper # (Auto) 0.92 K/uL (0.11-0.59) H 10/24/22 18:11 Eos # (Auto) 0.22 K/uL (0-0.50) 10/24/22 18:11 Baso # (Auto) 0.06 K/uL (0-0.2) 10/24/22 18:11 Immature Gran # (Auto) 0.03 K/uL (0.01-0.20) 10/24/22 18:11 D-Dimer 730 ug/L FEU (0-500) H* 10/24/22 18:11 VBG pH 7.42 (7.36-7.41) H 10/24/22 18:11 VBG pCO2 42 mmHg (38-50) 10/24/22 18:11 VBG pO2 57 mmHg 10/24/22 18:11 VBG HCO3 27 mmol/L 10/24/22 18:11 VBG O2 Saturation 89.5 % 10/24/22 18:11 VBG Base Excess 2.4 mEq/L 10/24/22 18:11 Sodium 138 mmol/L (136-145) 10/24/22 18:11 Potassium 4.0 mmol/L (3.5-5.1) 10/24/22 18:11 Chloride 104 mmol/L (98-107) 10/24/22 18:11 Carbon Dioxide 27 mmol/L (21-32) 10/24/22 18:11 Anion Gap 7 (3-11) 10/24/22 18:11 BUN 15 mg/dl (6-23) 10/24/22 18:11 Creatinine 0.96 mg/dl (0.6-1.2) 10/24/22 18:11 Est Cr Clr Drug Dosing Not Reportable 10/24/22 18:11 Est GFR ( Amer) 70.4 ml/min 10/24/22 18:11 Est GFR (Non-Af Amer) 60.8 ml/min 10/24/22 18:11 BUN/Creatinine Ratio 15.6 (10-20) 10/24/22 18:11 Glucose 98 mg/dl (70-99(Fasting)) 10/24/22 18:11 Calcium 8.8 mg/dl (8.6-10.3) 10/24/22 18:11 Magnesium 2.0 mg/dl (1.7-2.4) 10/24/22 18:11 Total Bilirubin 0.4 mg/dl (0.2-1.0) 10/24/22 18:11 AST 17 U/L (13-39) 10/24/22 18:11 ALT 21 U/L (7-52) 10/24/22 18:11 Alkaline Phosphatase 67 U/L (34-104) 10/24/22 18:11 Troponin I High Sens 4.2 pg/ml (0-14) 10/24/22 18:11 B-Natriuretic Peptide 11 pg/ml (0-100) 10/24/22 18:11 Total Protein 6.2 gm/dl (6.0-8.3) 10/24/22 18:11 Albumin 3.8 gm/dl (3.4-5.0) 10/24/22 18:11 Globulin 2.4 gm/dl (2.5-4.0) L 10/24/22 18:11 Albumin/Globulin Ratio 1.6 (0.9-2) 10/24/22 18:11 Procalcitonin 0.05 ng/ml (0-0.5) 10/24/22 18:11 Urine Color Yellow 10/24/22 19:51 Urine Appearance Clear (Clear) 10/24/22 19:51 Urine pH 7.0 (4.5-7.5) 10/24/22 19:51 Ur Specific [place] 1.019 (1.000-1.030) 10/24/22 19:51 Urine Protein Negative (Negative) 10/24/22 19:51 Urine Glucose (UA) Negative (Negative) 10/24/22 19:51 Urine Ketones Negative (Negative) 10/24/22 19:51 Urine Blood Negative (Negative) 10/24/22 19:51 Urine Nitrite Negative (Negative) 10/24/22 19:51 Urine Bilirubin Negative (Negative) 10/24/22 19:51 Urine Urobilinogen Negative (Negative) 10/24/22 19:51 Ur Leukocyte Esterase Negative (Negative) 10/24/22 19:51 Adenovirus (PCR) Not Detected (NotDetected) 10/24/22 15:35 Anaplasma Smear See Comment 10/24/22 18:11 Babesia Smear See Comment 10/24/22 18:11 B. pertussis DNA (PCR) Not Detected (NotDetected) 10/24/22 15:35 B.parapertussis DNA PCR Not Detected (NotDetected) 10/24/22 15:35 Lyme Disease IgG Ab Negative (Negative) 10/24/22 18:11 Lyme Disease IgM Ab Equivocal (Negative) A 10/24/22 18:11 C. pneumoniae DNA (PCR) Not Detected (NotDetected) 10/24/22 15:35 Coronavirus OC43 (PCR) Not Detected (NotDetected) 10/24/22 15:35 Coronavirus HKU1 (PCR) Not Detected (NotDetected) 10/24/22 15:35 Coronavirus 229E (PCR) Not Detected (NotDetected) 10/24/22 15:35 SARS-CoV-2 (PCR) Not Detected (NotDetected) 10/24/22 15:35 Coronavirus NL63 (PCR) Not Detected (NotDetected) 10/24/22 15:35 Monoscreen Negative (Negative) 10/24/22 18:11 Human Metapneumovir PCR Not Detected (NotDetected) 10/24/22 15:35 Influenza Type A (PCR) Not Detected (NotDetected) 10/24/22 15:35 Influenza Type B (PCR) Not Detected (NotDetected) 10/24/22 15:35 M. pneumoniae (PCR) Not Detected (NotDetected) 10/24/22 15:35 Parainfluenza 1 (PCR) Not Detected (NotDetected) 10/24/22 15:35 Parainfluenza 2 (PCR) Not Detected (NotDetected) 10/24/22 15:35 Parainfluenza 3 (PCR) Not Detected (NotDetected) 10/24/22 15:35 Parainfluenza 4 (PCR) Not Detected (NotDetected) 10/24/22 15:35 RSV (PCR) Not Detected (NotDetected) 10/24/22 15:35 Entero/Rhino (PCR) Not Detected (NotDetected) 10/24/22 15:35 Impressions Chest X-Ray 10/24/22 17:50 XR chest 2V PA/lateral HISTORY: 67 years-old Female Dyspnea; cough acute cough COMPARISON: 10/06/2022 TECHNIQUE: PA and lateral views of the chest FINDINGS: Cardiomediastinal and hilar silhouettes are unchanged. Chronic interstitial coarsening of the lungs with emphysema. No pneumothorax, pleural effusion, airspace consolidation or pulmonary edema. Bones of the chest appear grossly intact. IMPRESSION: Emphysema without acute process. ACT 112: Negative or not required by law. The above report was generated using voice recognition software. It may contain grammatical, syntax or spelling errors. Electronically signed by: Landon Lechuga M.D. 10/24/2022 6:31 PM Chest CTA 10/24/22 19:23 CR Exam(s): CTA CHEST IV Amt: 121 ML OPTIRAY 320 EXAM: CT Angiography Chest With Intravenous Contrast CLINICAL HISTORY: Pulmonary embolus. TECHNIQUE: Axial computed tomographic angiography images of the chest with intravenous contrast. CTDI is 18.63 mGy and DLP is 652.87 mGy-cm. Automated exposure control was utilized for the study. A dose lowering technique was utilized adhering to the principles of ALARA. MIP reconstructed images were created and reviewed. COMPARISON: CTA 10/04/2022 FINDINGS: Pulmonary arteries: Unremarkable. No pulmonary embolus. Aorta: Minimal atherosclerosis. No thoracic aortic aneurysm. Lungs: Marked emphysema. There is an 8 mm round subpleural nodule of the right middle lobe, no follow-up is needed. Pleural space: Unremarkable. No significant effusion. No pneumothorax. Heart: A pericardial effusion measures up to 10 mm. This demonstrates Hounsfield units more dense than expected for a simple effusion. No evidence of RV dysfunction. Mediastinum: Unchanged hilar lymphadenopathy measures up to 1 cm. Thyroid: Incidentally noted 1.1 cm left thyroid nodule which demonstrates a Zuckerkandl tubercle. Bones/joints: There are degenerative changes of the spine. No fracture. Soft tissues: Unremarkable. Lymph nodes: See above. IMPRESSION: 1. No pulmonary embolus. 2. A pericardial effusion measures up to 10 mm. This demonstrates Hounsfield units more dense than expected for a simple effusion. The etiology could be infectious, inflammatory or secondary to blood products. 3. Marked emphysema. 4. Incidentally noted 1.1 cm left thyroid nodule which demonstrates a Zuckerkandl tubercle. No follow up is needed given the size. 5. Unchanged hilar lymphadenopathy measures up to 1 cm. This is nonspecific. 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s: Verify Receipt Electronically signed by: Yanely Weiss MD 10/24/22 23:32 PM Code Status & VTE Plan Code Status Full code VTE Prophylaxis Plan VTE Prophylaxis will be ordered: Yes PG Care Time/CCT Total # of Minutes Spent Total Time Spent with Patient: Total time spent is greater than 50% in coordination of care (as documented) at patient's floor/unit and/or counseling patient: Coding Level of Care Code 50828 INT INP/OBS CARE 3/75MIN Diagnoses Acute exacerbation of chronic obstructive pulmonary disease J44.1 Acute respiratory failure with hypoxia and hypercapnia J96.01; J96.02 Acute pericardial effusion I30.9 Paroxysmal atrial tachycardia I47.1 Anxiety with depression F41.8 History of tobacco use Z87.891 Sleep apnea, obstructive G47.33 Multiple pulmonary nodules R91.8
--- NOTE | 2022-10-24 23:34 | CT Scan Report ---
Exam(s): CTA CHEST IV Amt: 121 ML OPTIRAY 320 EXAM: CT Angiography Chest With Intravenous Contrast CLINICAL HISTORY: Pulmonary embolus. TECHNIQUE: Axial computed tomographic angiography images of the chest with intravenous contrast. CTDI is 18.63 mGy and DLP is 652.87 mGy-cm. Automated exposure control was utilized for the study. A dose lowering technique was utilized adhering to the principles of ALARA. MIP reconstructed images were created and reviewed. COMPARISON: CTA 10/04/2022 FINDINGS: Pulmonary arteries: Unremarkable. No pulmonary embolus. Aorta: Minimal atherosclerosis. No thoracic aortic aneurysm. Lungs: Marked emphysema. There is an 8 mm round subpleural nodule of the right middle lobe, no follow-up is needed. Pleural space: Unremarkable. No significant effusion. No pneumothorax. Heart: A pericardial effusion measures up to 10 mm. This demonstrates Hounsfield units more dense than expected for a simple effusion. No evidence of RV dysfunction. Mediastinum: Unchanged hilar lymphadenopathy measures up to 1 cm. Thyroid: Incidentally noted 1.1 cm left thyroid nodule which demonstrates a Zuckerkandl tubercle. Bones/joints: There are degenerative changes of the spine. No fracture. Soft tissues: Unremarkable. Lymph nodes: See above. IMPRESSION: 1. No pulmonary embolus. 2. A pericardial effusion measures up to 10 mm. This demonstrates Hounsfield units more dense than expected for a simple effusion. The etiology could be infectious, inflammatory or secondary to blood products. 3. Marked emphysema. 4. Incidentally noted 1.1 cm left thyroid nodule which demonstrates a Zuckerkandl tubercle. No follow up is needed given the size. 5. Unchanged hilar lymphadenopathy measures up to 1 cm. This is nonspecific. 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s: Verify Receipt Electronically signed by: Yanely Weiss MD 10/24/22 23:32 PM
[2022-10-25] MEDS ORDERED: LORazepam 0.5 MG TAB PO PRN (00:50)
[2022-10-25] MEDS ORDERED: ONDANSETRON INJ 2 MG/ML 2 ML VIAL IV PRN (00:50)
[2022-10-25] MEDS ORDERED: ACETAMINOPHEN 325 MG TAB PO PRN (00:50)
[2022-10-25 01:03] LABS: Lyme Ab IgG w/WB Rflx Negative (Negative)
[2022-10-25 01:11] LABS: Lyme Ab IgM w/WB Rflx Equivocal (Negative)
[2022-10-25] MEDS ORDERED: ACETAMINOPHEN 1,000 MG/100 ML VIAL IV ONE (01:11)
[2022-10-25] MEDS: methylPREDNISolone 40 MG in SYRINGE 0 ML IV SCH ×2 (05:57→12:11)
[2022-10-25] MEDS: ALBUT/IPRATROP 3MG/0.5MG NEB 3 ML VIAL NEB SCH ×4 (06:04→19:17)
[2022-10-25 06:16] LABS: Hematocrit (blood only) 35.6 % (37.0-47.0); Hemoglobin 11.9 g/dl (12.0-16.0); Mean Corpuscular Hemoglobin 29.9 pg (25.0-34.0); Mean Corpuscular Hgb Conc 33.4 g/dL (32.0-36.0); Mean Corpuscular Volume 89.4 fL (80.0-100.0); Mean Platelet Volume 9.4 fL (9.4-12.4); Platelet Count 239 K/uL (130-400); RDW Coefficient of Variation 13.2 % (11.5-14.5); RDW Standard Deviation 43.6 fL (36.4-46.3); Red Blood Count 3.98 M/uL (4.20-5.40); White Blood Count 7.41 K/ul (4.8-10.8)
[2022-10-25 06:41] LABS: Basophils # (auto) 0.03 K/uL (0-0.2); Basophils % (auto) 0.4 %; Immature Granulocytes # (auto) 0.02 K/uL (0.01-0.20); Immature Granulocytes % (auto) 0.3 %; Lymphocytes % (auto) 8.1 %; Monocytes # (auto) 0.06 K/uL (0.11-0.59); Monocytes % (auto) 0.8 %; Neutrophils % (auto) 90.4 %
[2022-10-25 06:55] LABS: Potassium 4.8 mmol/L (3.5-5.1)
[2022-10-25 06:56] LABS: Albumin Globulin Ratio 1.5 (0.9-2); Albumin Level 3.6 gm/dl (3.4-5.0); BUN Creatinine Ratio 20.8 (10-20); Bilirubin,Total 0.5 mg/dl (0.2-1.0); Calcium 8.6 mg/dl (8.6-10.3); Creatinine Clr Calc Pharmacy 53.3 ml/min; Est GFR (African American) 70.4 ml/min; Est GFR (Non-African American) 60.8 ml/min; Globulin 2.4 gm/dl (2.5-4.0); Magnesium 2.1 mg/dl (1.7-2.4)
[2022-10-25] MEDS ORDERED: FORMOTEROL 20 MCG/2 ML VIAL INH SCH (07:00)
[2022-10-25] MEDS ORDERED: BUDESONIDE 0.5 MG/2 ML VIAL (PULMICORT) NEB SCH (07:00)
[2022-10-25] MEDS: guaiFENesin 600 MG TABCR PO SCH ×2 (08:07→20:59)
[2022-10-25] MEDS: PANTOprazole 40 MG TAB PO SCH ×2 (08:07→20:58)
[2022-10-25] MEDS: ESCITALOPRAM OXALATE 10 MG TAB PO SCH (08:07)
[2022-10-25] MEDS: ENOXAPARIN INJ 40 MG/0.4 ML SYR SQ SCH (08:08)
[2022-10-25] MEDS: dilTIAZem HCL 180 MG CAPCR PO SCH (08:08)
[2022-10-25] MEDS: FLUTICASONE FUROATE 200MCG 14 PUFFS/INHALER INH SCH (08:09)
[2022-10-25] MEDS: DOXYCYCLINE HYCLATE 100 MG CAP PO SCH ×2 (08:09→20:58)
[2022-10-25] MEDS: UMECLIDINIUM/VILANTEROL 62.5/25MCG 7 PUFFS/INHALER INH SCH (08:09)
[2022-10-25] MEDS ORDERED: NON-FORMULARY MEDICATION (Fluticasone-Umeclidin-Vilanter [Trelegy Ellipta] 200-62.5-25 mcg INH SCH (09:00)
[2022-10-25] MEDS ORDERED: AZITHROMYCIN 250 MG TAB PO SCH (09:00)
--- NOTE | 2022-10-25 13:24 | XCELERA ---
[id number]
--- NOTE | 2022-10-25 14:12 | Hospitalist Progress Note ---
Date of Service October 25, 2022 Assessment & Plan (1) Acute exacerbation of chronic obstructive pulmonary disease: Plan: Parenteral steroid therapy. Scheduled nebulizer treatments. (2) Acute respiratory failure with hypoxia and hypercapnia: Plan: Oxygen per nasal cannula to maintain saturation in the 98 to 92% range. (3) Acute pericardial effusion: Plan: Appears to be small and of no clinical significance. Cardiology consultation pending (4) Paroxysmal atrial tachycardia: Plan: Currently normal sinus rhythm. Continue diltiazem CD (5) Anxiety with depression: Plan: Stable. Continue current medical management (6) History of tobacco use: Plan: The patient denies current tobacco use (7) Sleep apnea, obstructive: Plan: Stable. Use CPAP at bedtime if needed (8) Multiple pulmonary nodules: Plan: No apparent malignancy. Outpatient follow-up Plan Eventual discharge to home. Hopefully later this week Admission and Anticipated Discharge Date Admission Date: October 24, 2022 Subjective Alert and oriented. No acute distress. Nonproductive cough. She is on room air. She has a small pericardial effusion that was seen on chest CTA. Cardiology consultation pending. No evidence of pulmonary emboli. She is on parenteral steroid therapy which has helped in the past. Hopefully she can go home soon Review of Systems Review of Systems: Constitutional-no fever or chills ENT-no blurred vision, no double vision, no epistaxis, no sore throat Respiratory-nonproductive cough, occasional wheezing, shortness of breath at rest and with exertion Cardiac-no palpitations, no chest pain, no syncope GI-no nausea, vomiting, diarrhea, melena, hematochezia -no urinary retention, no urinary incontinence, no dysuria, no hematuria Musculoskeletal-no joint pain, no muscle tenderness Skin-no bruising, no rashes, no pruritus Neuro-no isolated weakness, no paresthesia, no weakness Psych-no depression, no anxiety Physical Exam Physical Exam: General-alert and oriented x3, no fevers, no chills HEENT-head atraumatic and normocephalic, pupils equal and reactive to light, extraocular muscles intact Neck-no lymphadenopathy or thyromegaly, trachea midline Chest-diminished breath sounds bilaterally. No rales, no wheezing, no rhonchi at the time of my examination i Cardiac-regular rate and rhythm, normal S1 and S2 Abdomen-normal bowel sounds, nontender, no hepatosplenomegaly Extremities-no cyanosis, clubbing, or edema Neuro-cranial nerves II through XII intact, motor and sensory function within normal limits, strength symmetrical , no focal deficits Psych-normal affect, normal mood Results & Data Results & Data Vital Signs (Past 12 Hours) Vital Signs Temp Pulse Pulse Pulse Resp BP Pulse Ox 10/25/22 11:20 36.5 C 83 16 122/72 94 10/25/22 11:05 106 H 18 97 10/25/22 08:00 87 10/25/22 07:40 36.4 C L 78 14 108/80 94 10/25/22 06:04 86 22 91 10/25/22 04:31 36.4 C L 77 18 111/67 94 O2 Del Method O2 Flow Rate 10/25/22 11:20 Room Air 10/25/22 11:05 Nasal Cannula 3 10/25/22 08:00 10/25/22 07:40 Room Air 10/25/22 06:04 Nasal Cannula 3 10/25/22 04:31 Nasal Cannula 3 PG Care Time/CCT Total # of Minutes Spent Total Time Spent with Patient: Total time spent is greater than 50% in coordination of care (as documented) at patient's floor/unit and/or counseling patient: Coding Level of Care Code 76438 SUB INP/OBS CARE 3/50MIN Diagnoses Acute exacerbation of chronic obstructive pulmonary disease J44.1 Acute respiratory failure with hypoxia and hypercapnia J96.01; J96.02 Acute pericardial effusion I30.9 Paroxysmal atrial tachycardia I47.1 Anxiety with depression F41.8 History of tobacco use Z87.891 Sleep apnea, obstructive G47.33 Multiple pulmonary nodules R91.8
[2022-10-25] MEDS: ACETAMINOPHEN 500 MG TAB PO PRN ×2 (14:14→21:56)
--- NOTE | 2022-10-25 14:24 | Pulmonary Consultation ---
Date of Consultation October 25, 2022 Assessment & Plan (1) Acute exacerbation of chronic obstructive pulmonary disease: (2) Acute respiratory failure with hypoxia and hypercapnia: Plan Impression: 67-year-old female with severe airflow obstruction due to COPD. Admitted with increasing shortness of breath. She is been treated with steroids and bronchodilators and appears to be back to baseline. Recommendations: 1. Acute exacerbation of COPD. Continue Trelegy (currently on Anoro and budesonide) and as needed albuterol. we will transition off of methylprednisolone to prednisone 40 mg a day for 5 days. Complete a 5-day course of oral doxycycline and then resume 3 times a week azithromycin. Can discontinue formoterol and budesonide while the patient is using Trelegy or the equivalent. 2. The patient should bring in her home AVAPS machine for use when sleeping. 3. Agree with outpatient pulmonary rehab. 4. Consideration for outpatient Daliresp may be appropriate given the frequency of her exacerbations. Advised the patient that we cannot test for allergies that she is currently on steroids which may alter the results of testing. This can be conducted in the outpatient setting if felt to be clinically appropriate. 5. Continue supplemental oxygen titrated to keep saturations at or above 89%. The patient appears to be approaching her baseline and may be eligible to dismiss from the hospital within the next 24 to 48 hours depending on clinical response. History of Present Illness Attending Physician: Americo Traore MD History of Present Illness Asked by hospitalist to evaluate and assist in management of this patient admitted with increasing shortness of breath and COPD. History is obtained from discussion with the patient as well as review of the electronic medical record. Patient is a 67-year-old female with oxygen dependent COPD. She is established and follows with Dr. Ortega in the outpatient setting. She was seen in the clinic in August and September. She was admitted from October 07 through October 11 for a COPD exacerbation. She presented to the emergency room yesterday with complaints of progressive shortness of breath. She is currently being evaluated for potential lung transplant. She has been intermittently on and off prednisone. She was recently referred to pulmonary rehab. Her outpatient regiment consists of Trelegy as well as as needed albuterol and DuoNebs and 3 times a week azithromycin. The patient also has nocturnal AVAPS. The patient wonders whether exposure to pets may be a trigger for her. She states she would like to be tested for allergies to dogs and cats. She does not recall any ill contacts at home. She has not had any chest pain palpitations or significant lower extremity edema. She is currently sitting up in a chair and breathing comfortably. She is not experiencing any wheezing and states that she feels markedly better than when she presented to the hospital. Allergies Allergy/AdvReac Type Severity Reaction Status Date / Time aspirin AdvReac Intermediate GI SYMPTOMS Verified 10/24/22 18:38 Home Medications Medication Instructions Recorded Confirmed Type CPAP Machine #1 ea 12/06/19 10/06/22 Rx CPAP Supplies #1 ea 05/11/21 10/06/22 Rx ibuprofen 200 mg tablet 400 mg PO Q6H PRN Pain 12/17/21 10/24/22 History lorazepam 0.5 mg tablet 0.5 mg PO Q8H PRN anxiety #7 tabs 05/17/22 10/24/22 Rx pantoprazole 40 mg tablet,delayed 40 mg PO BID #60 tabs 05/18/22 10/24/22 Rx release escitalopram oxalate 10 mg tablet 15 mg PO QAM 08/05/22 10/24/22 History (Lexapro) diltiazem HCl 180 mg 180 mg PO QAM #30 caps 08/21/22 10/24/22 Rx capsule,extended release 24 hr ProAir HFA 90 mcg/actuation 2 puff inhalation Q4 PRN Shortness 09/03/22 10/24/22 Rx aerosol inhaler (albuterol sulfate) Of Breath Or Wheezing #8.5 grams azithromycin 250 mg tablet 250 mg PO .COMPLEX #36 tabs 09/03/22 10/24/22 Rx fluticasone fur. 200 mcg-umeclid 1 inh inhalation DAILY #60 ea 09/03/22 10/24/22 Rx 62.5 mcg-vilant 25 mcg inhalat.powder (Trelegy Ellipta) ipratropium 0.5 mg-albuterol 3 mg 3 ml inhalation QID PRN Shortness 09/03/22 10/24/22 Rx (2.5 mg base)/3 mL nebulization Of Breath #360 mL soln Portable Oxygen #1 ea 09/15/22 10/06/22 Rx budesonide 0.5 mg/2 mL suspension 0.5 mg (2 mL) NEB BIDR #60 mL 10/11/22 10/24/22 Rx for nebulization formoterol fumarate 20 mcg/2 mL 2 ml inhalation Q12H #60 mL 10/11/22 10/24/22 Rx solution for nebulization (Perforomist) Patient History Medical History (Updated 10/24/22 @ 23:37 by Nathalie Gaspar MD) Anxiety with depression Asthma Chronic obstructive pulmonary disease with hypoxia 3L NC PRN Pulm - [facility] [place] COPD exacerbation COVID Family history of colon cancer Goals of care, counseling/discussion Sleep apnea, obstructive Yeast infection Surgical History H/O partial thyroidectomy 1990s d/t hemorrhaging?--unknown cause, no meds History of broken collarbone sx to repair History of carpal tunnel surgery of right wrist History of partial hysterectomy History of tooth extraction all teeth Family History Mother , from ovarian cancer Cancer Ovarian Sister Cancer Ovarian Father COPD (chronic obstructive pulmonary disease) Other No family history of adverse response to anesthesia Social History Smoking Status: Former smoker Tobacco Type: Cigarettes Age Started Using Tobacco: 17; Age Quit Using Tobacco: 64; packs per day: 1; Cigarettes Per Day: 20; Second Hand Exposure: No; Do You Dip or Chew Tobacco: No; Hx Alcohol Use: No Hx Substance Use: No Preferred Language: Sinhala 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 Ability: Effective 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 Beliefs That Will Affect Care: None marital status: Current Living Situation: Family Current Living Situation Comment: Lives with daughter Virgen Other Information That Helps Us Care for You: No Feels Safe at Home: Yes Safety Concerns: Feels Safe At This Time Assistive Devices: Other Review of Systems Review of Systems: All systems reviewed & are unremarkable except as noted in Subjective Physical Exam Constitutional: WD/WN, vitals as above Neck: trachea midline, no thyromegaly Respiratory: normal respiratory effort, lungs clear to auscultation Cardiovascular: RRR, no murmur, no edema Gastrointestinal (Abdomen): normal bowel sounds, soft, nontender, no hepatosplenomegaly Musculoskeletal: Extremities: extremities normal to inspection Skin: no rashes, warm and dry Neurologic: Nonfocal exam Lymphatic: no cervical lymphadenopathy Results & Data Results & Data Vital Signs (Past 12 Hours) Vital Signs Temp Pulse Pulse Pulse Resp BP Pulse Ox 10/25/22 11:20 36.5 C 83 16 122/72 94 10/25/22 11:05 106 H 18 97 10/25/22 08:00 87 10/25/22 07:40 36.4 C L 78 14 108/80 94 10/25/22 06:04 86 22 91 10/25/22 04:31 36.4 C L 77 18 111/67 94 O2 Del Method O2 Flow Rate 10/25/22 11:20 Room Air 10/25/22 11:05 Nasal Cannula 3 10/25/22 08:00 10/25/22 07:40 Room Air 10/25/22 06:04 Nasal Cannula 3 10/25/22 04:31 Nasal Cannula 3 Critical Care Results & Data Vital Signs (Past 12 Hours) Vital Signs Temp Pulse Pulse Pulse Resp BP Pulse Ox 10/25/22 11:20 36.5 C 83 16 122/72 94 10/25/22 11:05 106 H 18 97 10/25/22 08:00 87 10/25/22 07:40 36.4 C L 78 14 108/80 94 10/25/22 06:04 86 22 91 10/25/22 04:31 36.4 C L 77 18 111/67 94 O2 Del Method O2 Flow Rate 10/25/22 11:20 Room Air 10/25/22 11:05 Nasal Cannula 3 10/25/22 08:00 10/25/22 07:40 Room Air 10/25/22 06:04 Nasal Cannula 3 10/25/22 04:31 Nasal Cannula 3 Lab & Micro Results (Past 24 Hours) RBC 3.98 M/uL (4.20-5.40) L 10/25/22 WBC 7.41 K/ul (4.8-10.8) 10/25/22 Hgb 11.9 g/dl (12.0-16.0) L 10/25/22 Hct 35.6 % (37.0-47.0) L 10/25/22 MCV 89.4 fL (80.0-100.0) 10/25/22 MCH 29.9 pg (25.0-34.0) 10/25/22 MCHC 33.4 g/dL (32.0-36.0) 10/25/22 RDW Standard Deviation 43.6 fL (36.4-46.3) 10/25/22 RDW Coefficient of Variation 13.2 % (11.5-14.5) 10/25/22 Plt Count 239 K/uL (130-400) 10/25/22 MPV 9.4 fL (9.4-12.4) 10/25/22 Neutrophils (%) (Auto) 90.4 % 10/25/22 Lymphocytes (%) (Auto) 8.1 % 10/25/22 Monocytes # (Auto) 0.06 K/uL (0.11-0.59) L 10/25/22 Eosinophils # (Auto) 0.00 K/uL (0-0.50) 10/25/22 Immature Granulocyte % (Auto) 0.3 % 10/25/22 Neutrophils # (Auto) 6.70 K/uL (1.40-6.50) H 10/25/22 Lymphocytes # (Auto) 0.60 K/uL (1.2-3.4) L 10/25/22 Monocytes # (Auto) 0.06 K/uL (0.11-0.59) L 10/25/22 Eosinophils # (Auto) 0.00 K/uL (0-0.50) 10/25/22 Basophils # (Auto) 0.03 K/uL (0-0.2) 10/25/22 Immature Granulocyte # (Auto) 0.02 K/uL (0.01-0.20) 3 Na 136 mmol/L (136-145) 10/25/22 K 4.8 mmol/L (3.5-5.1) 10/25/22 Cl 102 mmol/L (98-107) 10/25/22 CO2 27 mmol/L (21-32) 10/25/22 Anion Gap 7 (3-11) 10/25/22 BUN 20 mg/dl (6-23) 10/25/22 Creatinine 0.96 mg/dl (0.6-1.2) 10/25/22 Estimated GFR ( Amer) 70.4 ml/min 10/25/22 Estimated GFR (Non-Af Amer) 60.8 ml/min 10/25/22 BUN/Creatinine Ratio 20.8 (10-20) H 10/25/22 Glu 212 mg/dl (70-99(Fasting)) H 10/25/22 Ca 8.6 mg/dl (8.6-10.3) 10/25/22 Total Bilirubin 0.5 mg/dl (0.2-1.0) 10/25/22 AST 14 U/L (13-39) 10/25/22 ALT 20 U/L (7-52) 10/25/22 Alkaline Phosphatase 65 U/L (34-104) 10/25/22 TP 6.0 gm/dl (6.0-8.3) 10/25/22 Albumin 3.6 gm/dl (3.4-5.0) 10/25/22 Globulin 2.4 gm/dl (2.5-4.0) L 10/25/22 Albumin/Globulin Ratio 1.5 (0.9-2) 10/25/22 Mg 2.1 mg/dl (1.7-2.4) 10/25/22 05:24 Calcium Level 8.6 mg/dl (8.6-10.3) 10/25/22 05:24 Venous Blood pH 7.42 (7.36-7.41) H 10/24/22 18:11 Venous Blood Partial Pressure CO2 42 mmHg (38-50) 10/24/22 18:1 1 Venous Blood Partial Pressure O2 57 mmHg 10/24/22 18:11 Venous Blood HCO3 27 mmol/L 10/24/22 18:11 Venous Blood Base Excess 2.4 mEq/L 10/24/22 18:11 Venous Blood Oxygen Saturation 89.5 % 10/24/22 18:11 Diagnostic Findings (Past 24 Hours) Chest X-Ray 10/24/22 17:50 XR chest 2V PA/lateral HISTORY: 67 years-old Female Dyspnea; cough acute cough COMPARISON: 10/06/2022 TECHNIQUE: PA and lateral views of the chest FINDINGS: Cardiomediastinal and hilar silhouettes are unchanged. Chronic interstitial coarsening of the lungs with emphysema. No pneumothorax, pleural effusion, airspace consolidation or pulmonary edema. Bones of the chest appear grossly intact. IMPRESSION: Emphysema without acute process. ACT 112: Negative or not required by law. The above report was generated using voice recognition software. It may contain grammatical, syntax or spelling errors. Electronically signed by: Landon Lechuga M.D. 10/24/2022 6:31 PM Chest CTA 10/24/22 19:23 CR Exam(s): CTA CHEST IV Amt: 121 ML OPTIRAY 320 EXAM: CT Angiography Chest With Intravenous Contrast CLINICAL HISTORY: Pulmonary embolus. TECHNIQUE: Axial computed tomographic angiography images of the chest with intravenous contrast. CTDI is 18.63 mGy and DLP is 652.87 mGy-cm. Automated exposure control was utilized for the study. A dose lowering technique was utilized adhering to the principles of ALARA. MIP reconstructed images were created and reviewed. COMPARISON: CTA 10/04/2022 FINDINGS: Pulmonary arteries: Unremarkable. No pulmonary embolus. Aorta: Minimal atherosclerosis. No thoracic aortic aneurysm. Lungs: Marked emphysema. There is an 8 mm round subpleural nodule of the right middle lobe, no follow-up is needed. Pleural space: Unremarkable. No significant effusion. No pneumothorax. Heart: A pericardial effusion measures up to 10 mm. This demonstrates Hounsfield units more dense than expected for a simple effusion. No evidence of RV dysfunction. Mediastinum: Unchanged hilar lymphadenopathy measures up to 1 cm. Thyroid: Incidentally noted 1.1 cm left thyroid nodule which demonstrates a Zuckerkandl tubercle. Bones/joints: There are degenerative changes of the spine. No fracture. Soft tissues: Unremarkable. Lymph nodes: See above. IMPRESSION: 1. No pulmonary embolus. 2. A pericardial effusion measures up to 10 mm. This demonstrates Hounsfield units more dense than expected for a simple effusion. The etiology could be infectious, inflammatory or secondary to blood products. 3. Marked emphysema. 4. Incidentally noted 1.1 cm left thyroid nodule which demonstrates a Zuckerkandl tubercle. No follow up is needed given the size. 5. Unchanged hilar lymphadenopathy measures up to 1 cm. This is nonspecific. 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s: Verify Receipt Electronically signed by: Yanely Weiss MD 10/24/22 23:32 PM I & O Totals 24 Hours 10/24/22 10/25/22 10/26/22 06:59 06:59 06:59 Intake Total 200 / 200 1075 / 1075 Output Total 0 / 0 Balance 200 / 200 1075 / 1075 Cumulative 10/24/22 17:27 thru 10/25/22 14:00 Intake Total 1275 Output Total 0 Balance 1275 RT Ventilator Mngmt (Last Documented) Ventilator Ordered Settings Respiratory Rate 16 10/25/22 11:20 Ventilator - PT Measurements Respiratory Rate 16 PG Care Time/CCT Total # of Minutes Spent Total Time Spent with Patient: Total time spent is greater than 50% in coordination of care (as documented) at patient's floor/unit and/or counseling patient: Coding Level of Care Code 32747 INT INP/OBS CARE 2/55MIN Diagnoses Acute exacerbation of chronic obstructive pulmonary disease J44.1 Acute respiratory failure with hypoxia and hypercapnia J96.01; J96.02
--- NOTE | 2022-10-25 18:08 | Electrocardiogram Report ---
Test Reason : Blood Pressure : / mmHG Vent. Rate : 094 BPM Atrial Rate : 094 BPM P-R Int : 132 ms QRS Dur : 066 ms QT Int : 358 ms P-R-T Axes : 080 069 094 degrees QTc Int : 447 ms Normal sinus rhythm When compared with ECG of 07-OCT-2022 08:58, Vent. rate has decreased BY 49 BPM Confirmed by Arthur Pack ([id number]) on 10/25/2022 6:08:02 PM Referred By: REFERRED SELF Confirmed By:Glenroy Pack
--- NOTE | 2022-10-25 19:04 | Cardiology Consultation ---
Date of Consultation October 25, 2022 Assessment & Plan (1) Acute pericardial effusion: Plan 1. Pericardial effusion: This appears to have been discovered incidentally. Patient does not have symptoms of pericarditis. She is not experiencing symptoms of chest discomfort. No evidence of hemodynamic compromise. On echocardiography the effusion is quite small. I do not think this represents a clinical concern and is likely related to her underlying pulmonary disease. Do not think this requires any specific intervention and it appears too small for pericardiocentesis for diagnostic purposes. Repeat echocardiography could be considered in several days to evaluate the effusion. We will simply continue to monitor her hemodynamics during hospitalization to determine if earlier evaluation is necessary. History of Present Illness Reason for Consultation: Pericardial effusion on CT scan Requesting Physician: Eugenie Attending Physician: Americo Traore MD History of Present Illness The patient is a 67-year-old woman with an extensive history of primary lung disease including COPD who presented to the hospital with symptoms of worsening dyspnea. Patient has had symptoms of dyspnea on and off for the past few months. She is been hospitalized on several occasions for similar symptoms felt to be related to a COPD exacerbation. She states that over the past few days her breathing became worse to the point where she had some difficulty sleeping r ecently. Had some nasal congestion as well. Coughing was not a prominent symptom prompting her presentation. She denied symptoms of recent fevers or chills. She is not aware of any sick contacts. She denied symptoms of chest discomfort except that associated with coughing. She has not been aware of any palpitations, rapid heartbeats or suffered from dizziness or lightheadedness. No recent episodes of syncope. In the emergency room there was some concern for pulmonary embolus as a precipitant of her symptoms. She underwent CT angiography to exclude pulmonary embolus and was noted to have a pericardial effusion as well. An echocardiogram was ordered and a cardiology consultation was requested. The patient continues to have an element of breathing difficulty. This is improved somewhat from admission. She does not report orthopnea currently but does sit upright for improved breathing. This is a chronic remedy. No pleuritic chest pain. Allergies Allergy/AdvReac Type Severity Reaction Status Date / Time aspirin AdvReac Intermediate GI SYMPTOMS Verified 10/24/22 18:38 Home Medications Medication Instructions Recorded Confirmed Type CPAP Machine #1 ea 12/06/19 10/06/22 Rx CPAP Supplies #1 ea 05/11/21 10/06/22 Rx ibuprofen 200 mg tablet 400 mg PO Q6H PRN Pain 12/17/21 10/24/22 History lorazepam 0.5 mg tablet 0.5 mg PO Q8H PRN anxiety #7 tabs 05/17/22 10/24/22 Rx pantoprazole 40 mg tablet,delayed 40 mg PO BID #60 tabs 05/18/22 10/24/22 Rx release escitalopram oxalate 10 mg tablet 15 mg PO QAM 08/05/22 10/24/22 History (Lexapro) diltiazem HCl 180 mg 180 mg PO QAM #30 caps 08/21/22 10/24/22 Rx capsule,extended release 24 hr ProAir HFA 90 mcg/actuation 2 puff inhalation Q4 PRN Shortness 09/03/22 10/24/22 Rx aerosol inhaler (albuterol sulfate) Of Breath Or Wheezing #8.5 grams azithromycin 250 mg tablet 250 mg PO .COMPLEX #36 tabs 09/03/22 10/24/22 Rx fluticasone fur. 200 mcg-umeclid 1 inh inhalation DAILY #60 ea 09/03/22 10/24/22 Rx 62.5 mcg-vilant 25 mcg inhalat.powder (Trelegy Ellipta) ipratropium 0.5 mg-albuterol 3 mg 3 ml inhalation QID PRN Shortness 09/03/22 10/24/22 Rx (2.5 mg base)/3 mL nebulization Of Breath #360 mL soln Portable Oxygen #1 ea 09/15/22 10/06/22 Rx budesonide 0.5 mg/2 mL suspension 0.5 mg (2 mL) NEB BIDR #60 mL 10/11/22 10/24/22 Rx for nebulization formoterol fumarate 20 mcg/2 mL 2 ml inhalation Q12H #60 mL 10/11/22 10/24/22 Rx solution for nebulization (Perforomist) Patient History Medical History (Updated 10/24/22 @ 23:37 by Nathalie Gaspar MD) Anxiety with depression Asthma Chronic obstructive pulmonary disease with hypoxia 3L NC PRN Pulm - Min [place] COPD exacerbation COVID Family history of colon cancer Goals of care, counseling/discussion Sleep apnea, obstructive Yeast infection Surgical History H/O partial thyroidectomy 1990s d/t hemorrhaging?--unknown cause, no meds History of broken collarbone sx to repair History of carpal tunnel surgery of right wrist History of partial hysterectomy History of tooth extraction all teeth Family History Mother , from ovarian cancer Cancer Ovarian Sister Cancer Ovarian Father COPD (chronic obstructive pulmonary disease) Other No family history of adverse response to anesthesia Social History Smoking Status: Former smoker Tobacco Type: Cigarettes Age Started Using Tobacco: 17; Age Quit Using Tobacco: 64; packs per day: 1; Cigarettes Per Day: 20; Second Hand Exposure: No; Do You Dip or Chew Tobacco: No; Hx Alcohol Use: No Hx Substance Use: No Preferred Language: Latvian 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 Ability: Effective Team Primary Care Physician 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 Beliefs That Will Affect Care: None marital status: Current Living Situation: Family Current Living Situation Comment: Lives with daughter Virgen Other Information That Helps Us Care for You: No Feels Safe at Home: Yes Safety Concerns: Feels Safe At This Time Assistive Devices: Other Review of Systems Review of Systems: Per HPI Physical Exam Physical Exam: She is alert and oriented x3. Mood affect appear normal. She answered all questions appropriately. HEENT: Sclerae are anicteric. Pupils are equal and reactive to light and accommodation. Extraocular movements were intact. Neuro: Cranial nerves intact Lungs: Reduced pulmonary excursion bilaterally. Prolonged expiratory phase. Some crackles in the right lung base. Cardiac: The rhythm was regular. S1 and S2 were normal. There are no murmurs on examination. The PMI was not markedly displaced on palpation. Extremities: Patient has bilateral radial pulses that are equal in intensity. There is no evidence cyanosis or clubbing. There was no evidence of significant peripheral edema bilaterally. Skin: There are no rashes noted on examination today. Results & Data Vital Signs (Past 12 Hours) Vital Signs Temp Pulse Pulse Pulse Resp BP Pulse Ox 10/25/22 16:00 79 10/25/22 15:59 77 18 95 10/25/22 15:00 36.8 C 76 16 131/74 95 10/25/22 11:20 36.5 C 83 16 122/72 94 10/25/22 11:05 106 H 18 97 10/25/22 08:00 87 10/25/22 07:40 36.4 C L 78 14 108/80 94 O2 Del Method O2 Flow Rate 10/25/22 16:00 10/25/22 15:59 Nasal Cannula 3 10/25/22 15:00 Nasal Cannula 3 10/25/22 11:20 Room Air 10/25/22 11:05 Nasal Cannula 3 10/25/22 08:00 10/25/22 07:40 Room Air Laboratory Results Abnormal Lab Results 10/24/22 10/24/22 10/24/22 15:35 18:11 18:11 WBC RBC Hgb Hct MCV MCH MCHC RDW Std Deviation RDW Coeff of Audrey Plt Count MPV Immature Gran % (Auto) Neut % (Auto) Lymph % (Auto) [place] % (Auto) Eos % (Auto) Baso % (Auto) Neut # (Auto) Lymph # (Auto) [place] # (Auto) Eos # (Auto) Baso # (Auto) Immature Gran # (Auto) D-Dimer Sodium Potassium Chloride Carbon Dioxide Anion Gap BUN 15 Creatinine 0.96 Est Cr Clr Drug Dosing Not Reportable Est GFR ( Amer) 70.4 Est GFR (Non-Af Amer) 60.8 BUN/Creatinine Ratio 15.6 Glucose 98 Calcium Magnesium Total Bilirubin AST 17 ALT 21 Alkaline Phosphatase 67 Troponin I High Sens 4.2 Total Protein 6.2 Albumin Globulin 2.4 L Albumin/Globulin Ratio 1.6 Procalcitonin Urine Color Urine Appearance Urine pH Ur Specific Sunol Urine Protein Urine Glucose (UA) Urine Ketones Urine Blood Urine Nitrite Urine Bilirubin Urine Urobilinogen Ur Leukocyte Esterase Adenovirus (PCR) Not Detected Anaplasma Smear See Comment Babesia Smear See Comment B. pertussis DNA (PCR) Not Detected B.parapertussis DNA PCR Not Detected Lyme Disease IgG Ab Lyme Disease IgM Ab C. pneumoniae DNA (PCR) Not Detected Coronavirus OC43 (PCR) Not Detected Coronavirus HKU1 (PCR) Not Detected Coronavirus 229E (PCR) Not Detected SARS-CoV-2 (PCR) Not Detected Coronavirus NL63 (PCR) Not Detected Monoscreen Human Metapneumovir PCR Not Detected Influenza Type A (PCR) Not Detected Influenza Type B (PCR) Not Detected M. pneumoniae (PCR) Not Detected Parainfluenza 1 (PCR) Not Detected Parainfluenza 2 (PCR) Not Detected Parainfluenza 3 (PCR) Not Detected Parainfluenza 4 (PCR) Not Detected RSV (PCR) Not Detected Entero/Rhino (PCR) Not Detected 10/24/22 10/24/22 10/24/22 18:11 18:11 18:11 WBC RBC Hgb Hct MCV MCH MCHC RDW Std Deviation RDW Coeff of Audrey Plt Count MPV Immature Gran % (Auto) Neut % (Auto) Lymph % (Auto) [place] % (Auto) Eos % (Auto) Baso % (Auto) Neut # (Auto) Lymph # (Auto) [place] # (Auto) Eos # (Auto) Baso # (Auto) Immature Gran # (Auto) D-Dimer 730 H* Sodium Potassium Chloride Carbon Dioxide Anion Gap BUN Creatinine Est Cr Clr Drug Dosing Est GFR ( Amer) Est GFR (Non-Af Amer) BUN/Creatinine Ratio Glucose Calcium Magnesium Total Bilirubin AST ALT Alkaline Phosphatase Troponin I High Sens Total Protein Albumin Globulin Albumin/Globulin Ratio Procalcitonin 0.05 Urine Color Urine Appearance Urine pH Ur Specific Sunol Urine Protein Urine Glucose (UA) Urine Ketones Urine Blood Urine Nitrite Urine Bilirubin Urine Urobilinogen Ur Leukocyte Esterase Adenovirus (PCR) Anaplasma Smear Babesia Smear B. pertussis DNA (PCR) B.parapertussis DNA PCR Lyme Disease IgG Ab Negative Lyme Disease IgM Ab Equivocal A C. pneumoniae DNA (PCR) Coronavirus OC43 (PCR) Coronavirus HKU1 (PCR) Coronavirus 229E (PCR) SARS-CoV-2 (PCR) Coronavirus NL63 (PCR) Monoscreen Human Metapneumovir PCR Influenza Type A (PCR) Influenza Type B (PCR) M. pneumoniae (PCR) Parainfluenza 1 (PCR) Parainfluenza 2 (PCR) Parainfluenza 3 (PCR) Parainfluenza 4 (PCR) RSV (PCR) Entero/Rhino (PCR) 10/24/22 10/24/22 10/25/22 18:11 19:51 05:24 WBC 7.41 RBC 3.98 L Hgb 11.9 L Hct 35.6 L MCV 89.4 MCH 29.9 MCHC 33.4 RDW Std Deviation 43.6 RDW Coeff of Audrey 13.2 Plt Count 239 MPV 9.4 Immature Gran % (Auto) 0.3 Neut % (Auto) 90.4 Lymph % (Auto) 8.1 [place] % (Auto) 0.8 Eos % (Auto) 0.0 Baso % (Auto) 0.4 Neut # (Auto) 6.70 H Lymph # (Auto) 0.60 L [place] # (Auto) 0.06 L Eos # (Auto) 0.00 Baso # (Auto) 0.03 Immature Gran # (Auto) 0.02 D-Dimer Sodium Potassium Chloride Carbon Dioxide Anion Gap BUN Creatinine Est Cr Clr Drug Dosing Est GFR ( Amer) Est GFR (Non-Af Amer) BUN/Creatinine Ratio Glucose Calcium Magnesium Total Bilirubin AST ALT Alkaline Phosphatase Troponin I High Sens Total Protein Albumin Globulin Albumin/Globulin Ratio Procalcitonin Urine Color Yellow Urine Appearance Clear Urine pH 7.0 Ur Specific Sunol 1.019 Urine Protein Negative Urine Glucose (UA) Negative Urine Ketones Negative Urine Blood Negative Urine Nitrite Negative Urine Bilirubin Negative Urine Urobilinogen Negative Ur Leukocyte Esterase Negative Adenovirus (PCR) Anaplasma Smear Babesia Smear B. pertussis DNA (PCR) B.parapertussis DNA PCR Lyme Disease IgG Ab Lyme Disease IgM Ab C. pneumoniae DNA (PCR) Coronavirus OC43 (PCR) Coronavirus HKU1 (PCR) Coronavirus 229E (PCR) SARS-CoV-2 (PCR) Coronavirus NL63 (PCR) Monoscreen Negative Human Metapneumovir PCR Influenza Type A (PCR) Influenza Type B (PCR) M. pneumoniae (PCR) Parainfluenza 1 (PCR) Parainfluenza 2 (PCR) Parainfluenza 3 (PCR) Parainfluenza 4 (PCR) RSV (PCR) Entero/Rhino (PCR) 10/25/22 05:24 WBC RBC Hgb Hct MCV MCH MCHC RDW Std Deviation RDW Coeff of Audrey Plt Count MPV Immature Gran % (Auto) Neut % (Auto) Lymph % (Auto) [place] % (Auto) Eos % (Auto) Baso % (Auto) Neut # (Auto) Lymph # (Auto) [place] # (Auto) Eos # (Auto) Baso # (Auto) Immature Gran # (Auto) D-Dimer Sodium 136 Potassium 4.8 Chloride 102 Carbon Dioxide 27 Anion Gap 7 BUN 20 Creatinine 0.96 Est Cr Clr Drug Dosing 53.3 Est GFR ( Amer) 70.4 Est GFR (Non-Af Amer) 60.8 BUN/Creatinine Ratio 20.8 H Glucose 212 H Calcium 8.6 Magnesium 2.1 Total Bilirubin 0.5 AST 14 ALT 20 Alkaline Phosphatase 65 Troponin I High Sens Total Protein 6.0 Albumin 3.6 Globulin 2.4 L Albumin/Globulin Ratio 1.5 Procalcitonin Urine Color Urine Appearance Urine pH Ur Specific Sunol Urine Protein Urine Glucose (UA) Urine Ketones Urine Blood Urine Nitrite Urine Bilirubin Urine Urobilinogen Ur Leukocyte Esterase Adenovirus (PCR) Anaplasma Smear Babesia Smear B. pertussis DNA (PCR) B.parapertussis DNA PCR Lyme Disease IgG Ab Lyme Disease IgM Ab C. pneumoniae DNA (PCR) Coronavirus OC43 (PCR) Coronavirus HKU1 (PCR) Coronavirus 229E (PCR) SARS-CoV-2 (PCR) Coronavirus NL63 (PCR) Monoscreen Human Metapneumovir PCR Influenza Type A (PCR) Influenza Type B (PCR) M. pneumoniae (PCR) Parainfluenza 1 (PCR) Parainfluenza 2 (PCR) Parainfluenza 3 (PCR) Parainfluenza 4 (PCR) RSV (PCR) Entero/Rhino (PCR) Diagnostic Findings Chest CTA did not demonstrate evidence of pulmonary embolus. There was a small circumferential effusion which measured 1 cm in greatest dimension. An echocardiogram was performed today which revealed a small pericardial effusion. No echocardiographic evidence of tamponade. Preserved LV systolic function. PG Care Time/CCT Total # of Minutes Spent Total Time Spent with Patient: Total time spent is greater than 50% in coordination of care (as documented) at patient's floor/unit and/or counseling patient: Coding Level of Care Code 72497 INT INP/OBS CARE 3/75MIN Diagnoses Acute pericardial effusion I30.9
[2022-10-25] MEDS: predniSONE 20 MG TAB PO SCH (20:58)
[2022-10-26] MEDS: ALBUT/IPRATROP 3MG/0.5MG NEB 3 ML VIAL NEB SCH ×4 (06:57→18:58)
[2022-10-26 07:30] LABS: Hematocrit (blood only) 34.6 % (37.0-47.0); Hemoglobin 11.6 g/dl (12.0-16.0); Mean Corpuscular Hemoglobin 29.7 pg (25.0-34.0); Mean Corpuscular Hgb Conc 33.5 g/dL (32.0-36.0); Mean Corpuscular Volume 88.5 fL (80.0-100.0); Mean Platelet Volume 9.4 fL (9.4-12.4); Platelet Count 276 K/uL (130-400); RDW Coefficient of Variation 13.1 % (11.5-14.5); RDW Standard Deviation 42.5 fL (36.4-46.3); Red Blood Count 3.91 M/uL (4.20-5.40); White Blood Count 15.82 K/ul (4.8-10.8)
[2022-10-26 07:53] LABS: Albumin Globulin Ratio 1.7 (0.9-2); Albumin Level 3.8 gm/dl (3.4-5.0); BUN Creatinine Ratio 31.2 (10-20); Basophils # (auto) 0.01 K/uL (0-0.2); Basophils % (auto) 0.1 %; Bilirubin,Total 0.3 mg/dl (0.2-1.0); Calcium 8.9 mg/dl (8.6-10.3); Creatinine Clr Calc Pharmacy 55.4 ml/min; Est GFR (African American) 73.2 ml/min; Est GFR (Non-African American) 63.1 ml/min; Globulin 2.3 gm/dl (2.5-4.0); Immature Granulocytes # (auto) 0.07 K/uL (0.01-0.20); Immature Granulocytes % (auto) 0.4 %; Lymphocytes # (auto) 0.84 K/uL (1.2-3.4); Lymphocytes % (auto) 5.3 %; Magnesium 2.2 mg/dl (1.7-2.4); Monocytes # (auto) 0.51 K/uL (0.11-0.59); Monocytes % (auto) 3.2 %; Neutrophils # (auto) 14.39 K/uL (1.40-6.50); Potassium 4.5 mmol/L (3.5-5.1); Total Protein 6.1 gm/dl (6.0-8.3)
--- NOTE | 2022-10-26 08:02 | Pulmonology Progress Note ---
Date of Service October 26, 2022 Assessment & Plan (1) Acute exacerbation of chronic obstructive pulmonary disease: (2) Acute respiratory failure with hypoxia and hypercapnia: Plan Impression: 67-year-old female with severe airflow obstruction due to COPD. Admitted with increasing shortness of breath. She is been treated with steroids and bronchodilators and appears to be back to baseline. Recommendations: 1. Acute exacerbation of COPD. Continue Trelegy on discharge (currently on Anoro and budesonide) and as needed albuterol. Complete burst of prednisone 40 mg a day for 5 days. Complete a 5-day course of oral doxycycline and then resume 3 times a week azithromycin. Can continue to use nebulized DuoNebs on an as-needed basis. 2. Continue nightly APAP 3. Agree with outpatient pulmonary rehab. 4. Consideration for outpatient Daliresp may be appropriate given the frequency of her exacerbations. Advised the patient that we cannot test for allergies that she is currently on steroids which may alter the results of testing. This can be conducted in the outpatient setting if felt to be clinically appropriate. 5. Continue supplemental oxygen titrated to keep saturations at or above 89%. Patient appears to be at baseline. Recommended she be ambulated in the hallway to assess whether or not she is ready to go home. She can follow-up with Dr. Ortega in the outpatient setting. Pulmonary will sign off. Feel free to contact us with questions or concerns Admission and Anticipated Discharge Date Admission Date: October 24, 2022 Subjective Patient seen and examined. EMR reviewed. The patient reports that she is feeling better. She is almost back to baseline. She does feel somewhat winded when she gets up to walk around the room. She has not really ambulated in the humphries. She is not coughing or expectorating phlegm. She denies chest pain palpitations or significant lower extremity edema. Review of Systems Review of Systems: All systems reviewed & are unremarkable except as noted in Subjective Physical Exam Constitutional: WD/WN, vitals as above Neck: trachea midline, no thyromegaly Respiratory: normal respiratory effort, lungs clear to auscultation Cardiovascular: RRR, no murmur, no edema Gastrointestinal (Abdomen): normal bowel sounds, soft, nontender, no hepatosplenomegaly Musculoskeletal: Extremities: extremities normal to inspection Skin: no rashes, warm and dry Lymphatic: no cervical lymphadenopathy Results & Data Results & Data Vital Signs (Past 12 Hours) Vital Signs Temp Pulse Pulse Resp BP Pulse Ox O2 Del Method 10/26/22 06:58 72 18 98 Nasal Cannula 10/26/22 06:02 36.6 C 73 16 115/65 92 CPAP 10/26/22 03:31 36.5 C 76 18 134/68 93 CPAP 10/26/22 02:49 20 95 10/25/22 22:56 25 H 95 10/25/22 22:19 83 10/25/22 22:27 36.7 C 83 18 142/76 H 93 Nasal Cannula O2 Flow Rate 10/26/22 06:58 3 10/26/22 06:02 10/26/22 03:31 10/26/22 02:49 10/25/22 22:56 10/25/22 22:19 10/25/22 22:27 3 PG Care Time/CCT Total # of Minutes Spent Total Time Spent with Patient: Total time spent is greater than 50% in coordination of care (as documented) at patient's floor/unit and/or counseling patient: Coding Level of Care Code 66487 SUB INP/OBS CARE 2/35MIN Diagnoses Acute exacerbation of chronic obstructive pulmonary disease J44.1 Acute respiratory failure with hypoxia and hypercapnia J96.01; J96.02
[2022-10-26] MEDS: FLUTICASONE FUROATE 200MCG 14 PUFFS/INHALER INH SCH (08:37)
[2022-10-26] MEDS: guaiFENesin 600 MG TABCR PO SCH ×2 (08:38→21:23)
[2022-10-26] MEDS: UMECLIDINIUM/VILANTEROL 62.5/25MCG 7 PUFFS/INHALER INH SCH (08:38)
[2022-10-26] MEDS: PANTOprazole 40 MG TAB PO SCH ×2 (08:38→21:23)
[2022-10-26] MEDS: predniSONE 20 MG TAB PO SCH ×2 (08:38→21:23)
[2022-10-26] MEDS: dilTIAZem HCL 180 MG CAPCR PO SCH (08:38)
[2022-10-26] MEDS: DOXYCYCLINE HYCLATE 100 MG CAP PO SCH ×2 (08:38→21:23)
[2022-10-26] MEDS: ENOXAPARIN INJ 40 MG/0.4 ML SYR SQ SCH (08:40)
[2022-10-26] MEDS: ESCITALOPRAM OXALATE 10 MG TAB PO SCH (08:40)
[2022-10-26 14:13] LABS: EBV Virus Capsid Ag IgG Ab >750.00 U/mL; Epstein Barr Virus Early Ag Ab <9.00 U/mL
--- NOTE | 2022-10-26 16:02 | Hospitalist Progress Note ---
Date of Service October 26, 2022 Assessment & Plan (1) Acute exacerbation of chronic obstructive pulmonary disease: Plan: Steroid taper. Continue Trelegy at discharge. Scheduled nebulizer treatments. (2) Acute respiratory failure with hypoxia and hypercapnia: Plan: Oxygen per nasal cannula to maintain saturation in the 98 to 92% range. She now appears to be back at her baseline (3) Acute pericardial effusion: Plan: Appears to be small and of no clinical significance. Cardiology consultation appreciated. No intervention necessary at this time (4) Paroxysmal atrial tachycardia: Plan: Currently normal sinus rhythm. Continue diltiazem CD (5) Anxiety with depression: Plan: Stable. Continue current medical management (6) History of tobacco use: Plan: The patient denies current tobacco use (7) Sleep apnea, obstructive: Plan: Stable. Use CPAP at bedtime if needed (8) Multiple pulmonary nodules: Plan: No apparent malignancy. Outpatient follow-up Plan Eventual discharge to home. Hopefully tomorrow, October 27 Admission and Anticipated Discharge Date Admission Date: October 24, 2022 Subjective Alert and oriented. Pulmonary medicine and cardiology entries noted. Probable discharge to home tomorrow, October 27, on Trelegy and prednisone taper along with oral doxycycline. Review of Systems Review of Systems: Constitutional-no fever or chills ENT-no blurred vision, no double vision, no epistaxis, no sore throat Respiratory-nonproductive cough, occasional wheezing, shortness of breath at rest and with exertion Cardiac-no palpitations, no chest pain, no syncope GI-no nausea, vomiting, diarrhea, melena, hematochezia -no urinary retention, no urinary incontinence, no dysuria, no hematuria Musculoskeletal-no joint pain, no muscle tenderness Skin-no bruising, no rashes, no pruritus Neuro-no isolated weakness, no paresthesia, no weakness Psych-no depression, no anxiety Physical Exam Physical Exam: General-alert and oriented x3, no fevers, no chills HEENT-head atraumatic and normocephalic, pupils equal and reactive to light, extraocular muscles intact Neck-no lymphadenopathy or thyromegaly, trachea midline Chest-diminished breath sounds bilaterally. No rales, no wheezing, no rhonchi at the time of my examination i Cardiac-regular rate and rhythm, normal S1 and S2 Abdomen-normal bowel sounds, nontender, no hepatosplenomegaly Extremities-no cyanosis, clubbing, or edema Neuro-cranial nerves II through XII intact, motor and sensory function within normal limits, strength symmetrical , no focal deficits Psych-normal affect, normal mood Results & Data Results & Data Vital Signs (Past 12 Hours) Vital Signs Temp Pulse Pulse Resp BP Pulse Ox O2 Del Method 10/26/22 15:00 36.8 C 89 18 126/72 95 Room Air 10/26/22 15:24 86 18 97 Nasal Cannula 10/26/22 11:00 36.6 C 86 18 123/69 95 Room Air 10/26/22 11:16 85 16 97 Nasal Cannula 10/26/22 08:00 69 10/26/22 08:00 Nasal Cannula 10/26/22 06:58 72 18 98 Nasal Cannula 10/26/22 06:02 36.6 C 73 16 115/65 92 CPAP O2 Flow Rate 10/26/22 15:00 10/26/22 15:24 3 10/26/22 11:00 10/26/22 11:16 4 10/26/22 08:00 10/26/22 08:00 10/26/22 06:58 3 10/26/22 06:02 Laboratory Results 10/26/22 07:10 10/26/22 07:10 PG Care Time/CCT Total # of Minutes Spent Total Time Spent with Patient: Total time spent is greater than 50% in coordination of care (as documented) at patient's floor/unit and/or counseling patient: Coding Level of Care Code 54107 SUB INP/OBS CARE 2/35MIN Diagnoses Acute exacerbation of chronic obstructive pulmonary disease J44.1 Acute respiratory failure with hypoxia and hypercapnia J96.01; J96.02 Acute pericardial effusion I30.9 Paroxysmal atrial tachycardia I47.1 Anxiety with depression F41.8 History of tobacco use Z87.891 Sleep apnea, obstructive G47.33 Multiple pulmonary nodules R91.8
[2022-10-26] MEDS: ACETAMINOPHEN 500 MG TAB PO PRN (20:37)
[2022-10-27 06:39] LABS: Hematocrit (blood only) 31.9 % (37.0-47.0); Hemoglobin 10.9 g/dl (12.0-16.0); Mean Corpuscular Hemoglobin 29.9 pg (25.0-34.0); Mean Corpuscular Hgb Conc 34.2 g/dL (32.0-36.0); Mean Corpuscular Volume 87.6 fL (80.0-100.0); Mean Platelet Volume 9.6 fL (9.4-12.4); Platelet Count 259 K/uL (130-400); RDW Coefficient of Variation 13.4 % (11.5-14.5); RDW Standard Deviation 43.2 fL (36.4-46.3); Red Blood Count 3.64 M/uL (4.20-5.40); White Blood Count 14.76 K/ul (4.8-10.8)
[2022-10-27 06:51] LABS: Albumin Globulin Ratio 1.7 (0.9-2); Albumin Level 3.5 gm/dl (3.4-5.0); BUN Creatinine Ratio 32.6 (10-20); Bilirubin,Total 0.3 mg/dl (0.2-1.0); Calcium 8.3 mg/dl (8.6-10.3); Creatinine Clr Calc Pharmacy 54.1 ml/min; Est GFR (African American) 71.3 ml/min; Est GFR (Non-African American) 61.5 ml/min; Globulin 2.1 gm/dl (2.5-4.0); Magnesium 2.1 mg/dl (1.7-2.4); Potassium 4.6 mmol/L (3.5-5.1); Total Protein 5.6 gm/dl (6.0-8.3)
[2022-10-27] MEDS: ALBUT/IPRATROP 3MG/0.5MG NEB 3 ML VIAL NEB SCH ×2 (06:57→10:59)
[2022-10-27 07:23] LABS: Basophils # (auto) 0.01 K/uL (0-0.2); Basophils % (auto) 0.1 %; Immature Granulocytes % (auto) 0.7 %; Lymphocytes % (auto) 5.4 %; Monocytes # (auto) 0.33 K/uL (0.11-0.59); Monocytes % (auto) 2.2 %; Neutrophils # (auto) 13.52 K/uL (1.40-6.50); Neutrophils % (auto) 91.6 %
[2022-10-27 07:42] LABS: 18KDIGG Band NON-REACTIVE; 23KDIGG Band NON-REACTIVE; 23KDIGM Band NON-REACTIVE; 28KDIGG Band NON-REACTIVE; 30KDIGG Band NON-REACTIVE; 39KDIGG Band NON-REACTIVE; 39KDIGM Band REACTIVE; 41KDIGG Band NON-REACTIVE; 41KDIGM Band NON-REACTIVE; 45KDIGG Band NON-REACTIVE; 58KDIGG Band NON-REACTIVE; 66KDIGG Band NON-REACTIVE; 93KDIGG Band NON-REACTIVE; Lyme Antibodies, WB IgG NEGATIVE (NEGATIVE); Lyme Antibodies, WB IgM NEGATIVE (NEGATIVE)
[2022-10-27] MEDS: predniSONE 20 MG TAB PO SCH (08:50)
[2022-10-27] MEDS: guaiFENesin 600 MG TABCR PO SCH (08:51)
[2022-10-27] MEDS: DOXYCYCLINE HYCLATE 100 MG CAP PO SCH (08:51)
[2022-10-27] MEDS: ESCITALOPRAM OXALATE 10 MG TAB PO SCH (08:51)
[2022-10-27] MEDS: dilTIAZem HCL 180 MG CAPCR PO SCH (08:51)
[2022-10-27] MEDS: PANTOprazole 40 MG TAB PO SCH (08:51)
[2022-10-27] MEDS: ENOXAPARIN INJ 40 MG/0.4 ML SYR SQ SCH ×2 (08:52→10:10)
[2022-10-27] MEDS: FLUTICASONE FUROATE 200MCG 14 PUFFS/INHALER INH SCH (08:52)
[2022-10-27] MEDS: UMECLIDINIUM/VILANTEROL 62.5/25MCG 7 PUFFS/INHALER INH SCH (08:53)
--- NOTE | 2022-10-27 12:53 | Discharge Summary ---
Date of Service October 27, 2022 Admission HPI Per Admitting Provider the patient is a 67-year-old female with a past medical history including COPD, pneumonia, acute respiratory failure, acid reflux, COVID-19, ex-smoker, ALHAJI, and history of multiple admissions for COPD exacerbations. She presents with symptoms similar to previous exacerbations. She reports that she is being scheduled to be put on lung transplant list. Principal Diagnosis Acute exacerbation COPD, acute on chronic respiratory failure, small pericardial effusion Discharge Exam General-alert and oriented x3, no fevers, no chills HEENT-head atraumatic and normocephalic, pupils equal and reactive to light, extraocular muscles intact Neck-no lymphadenopathy or thyromegaly, trachea midline Chest-diminished breath sounds bilaterally. No rales, no wheezing, no rhonchi at the time of my examination i Cardiac-regular rate and rhythm, normal S1 and S2 Abdomen-normal bowel sounds, nontender, no hepatosplenomegaly Extremities-no cyanosis, clubbing, or edema Neuro-cranial nerves II through XII intact, motor and sensory function within normal limits, strength symmetrical , no focal deficits Psych-normal affect, normal mood Discharge Data Allergies Allergy/AdvReac Type Severity Reaction Status Date / Time aspirin AdvReac Intermediate GI SYMPTOMS Verified 10/24/22 18:38 Consultations 10/24/22 22:55 ED Decision to Admit Stat 10/25/22 00:50 Consult Pulmonology Routine 10/25/22 08:17 Consult Cardiology Routine Ordered Studies 10/24/22 19:23 CT for pulmonary embolism PE [CT angio chest PE protocol] Stat Hospital Course (1) Acute exacerbation of chronic obstructive pulmonary disease: Parenteral steroids administered while hospitalized. We will continue prednisone burst therapy for 5 days at discharge. Continue Trelegy at discharge. Scheduled nebulizer treatments. (2) Acute respiratory failure with hypoxia and hypercapnia: Oxygen per nasal cannula to maintain saturation in the 98 to 92% range. She now appears to be back at her baseline (3) Acute pericardial effusion: Appears to be small and of no clinical significance. Cardiology consultation appreciated. No intervention necessary at this time (4) Paroxysmal atrial tachycardia: Currently normal sinus rhythm. Continue diltiazem CD (5) Anxiety with depression: Stable. Continue current medical management (6) History of tobacco use: The patient denies current tobacco use (7) Sleep apnea, obstructive: Stable. Use CPAP at bedtime if needed (8) Multiple pulmonary nodules: No apparent malignancy. Outpatient follow-up Plan Home today, October 27 Total Time Total Time Spent Total Time Spent (In Minutes): 40-minute Discharge Plan Discharge Items Patient Disposition: Home - Self-Care Reason For Visit: ACUTE ON CHRONIC RESP FAILURE W/ HYPOXIA Discharge Diagnosis: Acute exacerbation COPD, acute on chronic respiratory failure with hypoxia Activity: Resume your previous activity Non-emergency contact: Primary Care Provider and [employer] Call non-emergency contact if: your symptoms worsen Follow-up/Referrals: Armando Carter MD [Primary Care Provider] - Diet: Regular and Heart Healthy Addtl Attending Provider Instructions: Trelegy will continue at discharge. Continue doxycycline for 5 days. Prednisone 20 mg twice a day for 5 days burst therapy Pending Studies at Discharge: No Stand-Alone Forms: My [employer], Smoking Cessation Medications and DC Order Prescriptions: New doxycycline hyclate 100 mg Capsule 100 mg PO BID Qty: 10 0RF Trelegy Ellipta 100-62.5-25 mcg blister with device 1 inh inhalation DAILY Qty: 28 0RF prednisone 20 mg Tablet 20 mg PO BID Qty: 10 0RF Continued Trelegy Ellipta 200-62.5-25 mcg blister with device 1 inh inhalation DAILY Qty: 60 8RF azithromycin 250 mg tablet 250 mg PO .COMPLEX Qty: 36 3RF Rx Instructions: 250 mg PO 1 tab p.o. on Mzkxwc-Iwqejurhb-Alaxyx; albuterol sulfate [ProAir HFA] 90 mcg/actuation HFA aerosol inhaler 2 puff Inhalation Q4 PRN (Reason: Shortness Of Breath Or Wheezing) Qty: 8.5 3RF ipratropium-albuterol 0.5 mg-3 mg(2.5 mg base)/3 mL solution for nebulization 3 ml INH QID PRN (Reason: Shortness Of Breath) Qty: 360 5RF (DME) CPAP Machine Misc See Rx Instructions .MEDSUPPLY Qty: 1 0RF Rx Instructions: Auto-titration CPAP with pressure range between 5 cm H2O and 15 cm H2O with humidification. Lifetime need. (DME) CPAP Supplies Misc See Rx Instructions .MEDSUPPLY Qty: 1 0RF Rx Instructions: Refitting of the mask. G47.33 (DME) Portable Oxygen Misc See Rx Instructions .Route Qty: 1 0RF Rx Instructions: portable oxygen concentrator- 3LPM on exertion via n/c. SILVIA:99 ibuprofen 200 mg Tablet 400 mg PO Q6H PRN (Reason: Pain) lorazepam 0.5 mg tablet 0.5 mg PO Q8H PRN (Reason: anxiety) Qty: 7 0RF pantoprazole 40 mg Tablet,Delayed Release (Dr/Ec) 40 mg PO BID Qty: 60 0RF escitalopram oxalate [Lexapro] 10 mg tablet 15 mg PO QAM diltiazem HCl 180 mg Capsule,Extended Release 24hr 180 mg PO QAM Qty: 30 0RF formoterol fumarate [Perforomist] 20 mcg/2 mL solution for nebulization 2 ml inhalation Q12H Qty: 60 0RF budesonide 0.5 mg/2 mL Suspension For Nebulization 0.5 mg NEB BIDR Qty: 60 0RF Discharge Orders: Discharge Order (Routine); Ordered 10/27/22 Ordered By: Americo Traore Admission Data Admit Date/Time: 10/24/22 23:29 Attending Provider: Americo Traore Admit Provider: Blaze Smith Primary Care Provider: Armando Carter Other Providers: Blaze Smith ; Kitty Ortega ; Babar Corbin ; Florin Dalton ; Otf Banuelos ; Gamaliel Gar ; Tyler Carey ; Saúl Souza Jr ; Marcello Rodríguez ; Ca Ramos ; Sally Perez ; Shaun Hensley ; Arthur Pack ; Americo Montelongo ; Susan Sequeira ; Demetrice Harris ; Michael Armstrong ; Matthias Mueller ; Gamaliel Donahue V. Coding Level of Care Code 19941 INP/OBS DISCH >30 MIN Diagnoses Acute exacerbation of chronic obstructive pulmonary disease J44.1 Acute respiratory failure with hypoxia and hypercapnia J96.01; J96.02 Acute pericardial effusion I30.9 Paroxysmal atrial tachycardia I47.1 Anxiety with depression F41.8 History of tobacco use Z87.891 Sleep apnea, obstructive G47.33 Multiple pulmonary nodules R91.8
[2022-10-28 01:37] LABS: Anti Nuclear Antibody Screen NEGATIVE (NEGATIVE); Babesia microti DNA Not Detected (Not Detected); Rheumatoid Factor 18 IU/mL (<14)
[2022-10-29 09:09] LABS: Ehrlichia chaff DNA Bld Negative (Negative)
== END 2022-10-27 15:13 | disposition home or self-care (01) | DRG 190 ==
LOC: ED 17:27 → SUATTDRO 23:29 → 2N 23:29

== ENCOUNTER 2023-01-10 19:21 | Inpatient (IN) ==
[2023-01-10] MEDS ORDERED: SODIUM CHLORIDE 0.9% 500 ML IV ONE (19:52)
--- NOTE | 2023-01-10 20:03 | Emergency Department Note ---
Impression & Plan Acute on chronic respiratory failure with hypoxia, COPD exacerbation, Parainfluenza type 1 infection ED Provider Note NAME: AVIVA MIMS AGE: 67 SEX: F ARRIVES VIA: Walk-In INFORMANT: Patient ED PROVIDER(S): Adrian Zelaya MD CHIEF COMPLAINT: SOB PLAN: Disposition: Admit MEDICAL DECISION MAKING: The patient is a pleasant 67-year-old woman with a past medical history of COPD on 2 L home oxygen who presents to the emergency department via walk-in for eval uation of worsening chest tightness and shortness of breath with cough and congestion over the past week. She reports she saw her [place] consumer insight analyst today and was prescribed a steroid course and an antibiotic but she cannot remember the name. She reports that the drive was over 3 hours round trip. She reports she was unable to get to the pharmacy to pick up attendant her prescriptions as her shortness of breath rapidly worsened. She denies any fevers, nausea, vomiting, diarrhea or urinary symptoms. On my evaluation the patient is anxious appearing and uncomfortable, afebrile with heart in the 100s and blood pressure 160s/80s with O2 saturation 89% on her home 3 L increased to 4 L improving to the low 90s. She appears clinically dry. Lung sounds are diminished with underlying wheeze bilaterally and mild increased work of breathing. EKG without overt acute ischemia. CXR with interstitial thickening and otherwise no focal infiltrates per my preliminary review. WBC, H/H and platelets within normal limits. Chemistry without metabolic acidosis. VBG is unremarkable. Electrolytes and LFTs without significant abnormality. High-sensitivity troponin 6.4, within normal limits. BNP is not elevated. Lipase is normal. Respiratory viral panel/[employer] was positive for parainfluenza 1. CTA of the chest was negative for PE. Note is made of bronchial wall thickening consistent with acute bronchitis. Prominent emphysematous changes are noted. Treatment was initiated with IV hydration, Solu-Medrol, guaifenesin and DuoNeb. Given the patient's increased O2 requirement in the setting of her COPD and viral illness she agrees with plan for admission for further management. Case was discussed with Dr. Smith, [facility] hospitalist, who will evaluate the patient for admission. Triage Nursing notes reviewed and agree them. Prior/outside medical records reviewed Vital Signs: reviewed Differential diagnosis: Reactive airway disease, pneumonia, pneumothorax, COPD, CHF, infections, cardiac ischemia, pulmonary embolism, musculoskeletal, gastrointestinal, as well as other pathologies. ER treatment provided: See below. Diagnostics interpreted by me: ECG: Normal sinus rhythm, 99 bpm, no ectopy, nonspecific ST and T wave abnormality, no overt ST elevation or depression, QTc 451, QRS 74. Cardiac Monitoring: An order for continuous cardiac monitoring was placed and demonstrated Normal sinus rhythm, 99 bpm, no ectopy Laboratory studies: See below Imaging studies: See below Consultation(s): Case was discussed with Dr. Smith, [facility] hospitalist, who will evaluate the patient for admission. HPI: The patient is a pleasant 67-year-old woman with a past medical history of COPD on 2 L home oxygen who presents to the emergency department via walk-in for evaluation of worsening chest tightness and shortness of breath with cough and congestion over the past week. She reports she saw her [place] consumer insight analyst today and was prescribed a steroid course and an antibiotic but she cannot remember the name. She reports that the drive was over 3 hours round trip. She reports she was unable to get to the pharmacy to pick up attendant her prescriptions as her shortness of breath rapidly worsened. She denies any fevers, nausea, vomiting, diarrhea or urinary symptoms. ROS: See above HPI for pertinent positives & negatives. A total of 10 systems reviewed and were otherwise negative. VITALS:See Below PHYSICAL EXAMINATION: GENERAL: Awake, alert, uncomfortable/anxious-appearing, in no distress HENT: Normocephalic, atraumatic. Oropharynx with dry mucous membranes and otherwise unremarkable. EYES: Normal conjunctiva. Sclera non-icteric. NECK: Supple. No nuchal rigidity. FROM. No JVD. RESPIRATORY: Diminished breath sounds of bilateral lung wharton with underlying wheeze. Mild increased work of breathing but no acute distress. CARDIAC: Tachycardic rate, normal rhythm. Extremities warm and well perfused. Pulses equal. ABDOMEN: Soft, non-distended. No tenderness to palpation. No rebound or guarding. No masses. RECTAL: Deferred. MUSCULOSKELETAL: Chest examination reveals no tenderness. The back is symmetrical on inspection without obvious abnormality. There is no CVA tenderness to palpation. No joint edema. LOWER EXTREMITIES: Calves are equal size bilaterally and non-tender. No edema. No discoloration. NEURO: Normal sensorium. No sensory or motor deficits noted. SKIN: No rash or jaundice noted. Adrian Zelaya MD Past Med/Surg History Medical History Anxiety with depression Asthma Chronic obstructive pulmonary disease with hypoxia 3L [place] CONTINUOUS Pulm - [facility] [place] Chronic respiratory failure COPD exacerbation [facility] 09/2022 History of COVID-19 12/2021 and 04/2021- sob, cough, fatigue; resolved History of recent pneumonia 09/2022 Multiple pulmonary nodules Sleep apnea, obstructive CPAP SOB (shortness of breath) Surgical History H/O partial thyroidectomy 1990s d/t hemorrhaging?--unknown cause, no meds History of broken collarbone sx to repair History of carpal tunnel surgery of right wrist History of partial hysterectomy History of tooth extraction all teeth Hx of colonoscopy Hx of right cataract extraction Family History Mother , from ovarian cancer Cancer Ovarian Sister Cancer Ovarian Father COPD (chronic obstructive pulmonary disease) Other No family history of adverse response to anesthesia Social History Smoking Status: Former smoker Tobacco Type: Cigarettes Age Started Using Tobacco: 17; Age Quit Using Tobacco: 64; packs per day: 1; Cigarettes Per Day: quit ~ 2yrs ago; Second Hand Exposure: No; Do You Dip or Chew Tobacco: No; Hx Alcohol Use: No Hx Substance Use: No Preferred Language: Luxembourger 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 Ability: Effective Conveyor Operator 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 Beliefs That Will Affect Care: None marital status: Current Living Situation: Family Current Living Situation Comment: Lives with daughter Virgen Feels Safe at Home: Yes Assistive Devices: CPAP, Denture - Upper, Denture - Lower, Nebulizer, Oxygen - Continuous and Wheelchair Allergies Allergies Allergy/AdvReac Type Severity Reaction Status Date / Time aspirin AdvReac Intermediate GI SYMPTOMS Verified 01/10/23 22:32 Home Meds Home Medications Medication Instructions Recorded Confirmed escitalopram oxalate 10 mg tablet 15 mg PO QAM 08/05/22 01/10/23 (Lexapro) ipratropium 0.5 mg-albuterol 3 mg 3 ml inhalation QID 11/15/22 01/10/23 (2.5 mg base)/3 mL nebulization soln prednisone 20 mg tablet 40 mg PO .DAILY [id number] 01/10/23 01/10/23 Previous Rx's Medication Instructions Recorded CPAP Machine #1 ea 12/06/19 CPAP Supplies #1 ea 05/11/21 lorazepam 0.5 mg tablet 0.5 mg PO Q8H PRN anxiety #7 tabs 05/17/22 ProAir HFA 90 mcg/actuation 2 puff inhalation Q4 PRN Shortness 09/03/22 aerosol inhaler (albuterol sulfate) Of Breath Or Wheezing #8.5 grams ipratropium 0.5 mg-albuterol 3 mg 3 ml inhalation QID PRN Shortness 09/03/22 (2.5 mg base)/3 mL nebulization Of Breath #360 mL soln Portable Oxygen #1 ea 09/15/22 fluticasone fur. 100 mcg-umeclid 1 inh inhalation DAILY #28 ea 10/27/22 62.5 mcg-vilant 25 mcg inhalat.powder (Trelegy Ellipta) roflumilast 250 mcg tablet 250 mcg PO DAILY 4 weeks #28 tabs 11/17/22 roflumilast 500 mcg tablet 500 mcg PO DAILY #30 tabs 11/17/22 Results & Data (ED) Vital Signs Vital Signs - 24 hr 01/10/23 19:24 01/10/23 19:21 01/10/23 19:50 Temperature 36.9 C Temperature Source Oral Pulse Rate 108 H 104 H Pulse Rate from SpO2 Sensor 104 H Pulse Rhythm Regular Pulse Strength Normal Respiratory Rate 24 27 H Respiratory Effort / Characteristics Non-Labored Spontaneous Short of Breath SOB on Exertion Respiratory Depth Normal Respiratory Pattern Regular Blood Pressure 166/85 H Blood Pressure Mean 112 Pulse Oximetry 89 L 96 Oxygen Delivery Method Nasal Cannula Nasal Cannula Nasal Cannula Oxygen Flow Rate 3 4 3 Sepsis Recent Fever Within 48 Hours No Sepsis New/Unexplained Change in Mental Status N/A Sepsis Action Taken by Nursing No Action Required 01/10/23 20:00 01/10/23 21:00 01/10/23 22:02 Temperature Temperature Source Pulse Rate 101 H 101 H 105 H Pulse Rate from SpO2 Sensor 99 H 101 H 108 H Pulse Rhythm Pulse Strength Respiratory Rate 22 18 18 Respiratory Effort / Characteristics Respiratory Depth Respiratory Pattern Blood Pressure Blood Pressure Mean Pulse Oximetry 97 91 92 Oxygen Delivery Method Nasal Cannula Nasal Cannula Nasal Cannula Oxygen Flow Rate 3 3 3 Sepsis Recent Fever Within 48 Hours Sepsis New/Unexplained Change in Mental Status Sepsis Action Taken by Nursing 01/10/23 22:18 01/10/23 22:18 01/10/23 22:31 Temperature Temperature Source Pulse Rate 114 H Pulse Rate from SpO2 Sensor 111 H Pulse Rhythm Pulse Strength Respiratory Rate 18 Respiratory Effort / Characteristics Respiratory Depth Respiratory Pattern Blood Pressure 178/98 H 141/95 H Blood Pressure Mean 148 120 Pulse Oximetry 92 Oxygen Delivery Method Nasal Cannula Oxygen Flow Rate 3 Sepsis Recent Fever Within 48 Hours Sepsis New/Unexplained Change in Mental Status Sepsis Action Taken by Nursing 01/10/23 22:31 01/10/23 22:31 01/10/23 23:00 Temperature Temperature Source Pulse Rate 108 H Pulse Rate from SpO2 Sensor 92 H Pulse Rhythm Pulse Strength Respiratory Rate 46 H Respiratory Effort / Characteristics Respiratory Depth Respiratory Pattern Blood Pressure 141/95 H 156/90 H Blood Pressure Mean 120 134 Pulse Oximetry 96 Oxygen Delivery Method Nasal Cannula Oxygen Flow Rate 3 Sepsis Recent Fever Within 48 Hours Sepsis New/Unexplained Change in Mental Status Sepsis Action Taken by Nursing 01/10/23 23:00 Temperature Temperature Source Pulse Rate 97 H Pulse Rate from SpO2 Sensor 97 H Pulse Rhythm Pulse Strength Respiratory Rate 33 H Respiratory Effort / Characteristics Respiratory Depth Respiratory Pattern Blood Pressure Blood Pressure Mean Pulse Oximetry 94 Oxygen Delivery Method Nasal Cannula Oxygen Flow Rate 3 Sepsis Recent Fever Within 48 Hours Sepsis New/Unexplained Change in Mental Status Sepsis Action Taken by Nursing Laboratory Data 01/10/23 20:06 01/10/23 20:06 Lab Results 01/10/23 01/10/23 01/10/23 Range/Units 20:06 20:06 20:06 WBC 7.87 (4.8-10.8) K/ul RBC 4.28 (4.20-5.40) M/uL Hgb 12.5 (12.0-16.0) g/dl Hct 37.5 (37.0-47.0) % MCV 87.6 (80.0-100.0) fL MCH 29.2 (25.0-34.0) pg MCHC 33.3 (32.0-36.0) g/dL RDW Std Deviation 40.8 (36.4-46.3) fL RDW Coeff of Audrey 12.9 (11.5-14.5) % Plt Count 283 (130-400) K/uL MPV 10.2 (9.4-12.4) fL Immature Gran % (Auto) 0.3 % Neut % (Auto) 77.6 % Lymph % (Auto) 11.9 % [place] % (Auto) 9.5 % Eos % (Auto) 0.3 % Baso % (Auto) 0.4 % Neut # (Auto) 6.11 (1.40-6.50) K/uL Lymph # (Auto) 0.94 L (1.20-3.40) K/uL [place] # (Auto) 0.75 H (0.11-0.59) K/uL Eos # (Auto) 0.02 (0.00-0.50) K/uL Baso # (Auto) 0.03 (0.00-0.20) K/uL Immature Gran # (Auto) 0.02 (0.01-0.20) K/uL PT 9.8 (9.0-12.0) Seconds INR 0.9 (0.9-1.1) VBG pH (7.36-7.41) VBG pCO2 (38-50) mmHg VBG pO2 mmHg VBG HCO3 mmol/L VBG O2 Saturation % VBG Base Excess mEq/L Sodium 138 (136-145) mmol/L Potassium 3.7 (3.5-5.1) mmol/L Chloride 105 (98-107) mmol/L Carbon Dioxide 25 (21-32) mmol/L Anion Gap 8 (3-11) BUN 10 (6-23) mg/dl Creatinine 0.91 (0.6-1.2) mg/dl Est Cr Clr Drug Dosing Not Reportable Est GFR ( Amer) 75.1 ml/min Est GFR (Non-Af Amer) 64.8 ml/min BUN/Creatinine Ratio 11.0 (10-20) Glucose 118 H (70-99(Fasting)) mg/dl Calcium 8.4 L (8.6-10.3) mg/dl Phosphorus 3.6 (2.5-4.9) mg/dl Magnesium 1.8 (1.7-2.4) mg/dl Total Bilirubin 0.4 (0.2-1.0) mg/dl AST 25 (13-39) U/L ALT 22 (7-52) U/L Alkaline Phosphatase 94 (34-104) U/L Troponin I High Sens 6.4 (0-14) pg/ml B-Natriuretic Peptide (0-100) pg/ml Total Protein 6.8 (6.0-8.3) gm/dl Albumin 4.1 (3.4-5.0) gm/dl Globulin 2.7 (2.5-4.0) gm/dl Albumin/Globulin Ratio 1.5 (0.9-2) Lipase 34 (11-82) U/L Adenovirus (PCR) (NotDetected) B. pertussis DNA (PCR) (NotDetected) B.parapertussis DNA PCR (NotDetected) C. pneumoniae DNA (PCR) (NotDetected) Coronavirus OC43 (PCR) (NotDetected) Coronavirus HKU1 (PCR) (NotDetected) Coronavirus 229E (PCR) (NotDetected) SARS-CoV-2 (PCR) (NotDetected) Coronavirus NL63 (PCR) (NotDetected) Human Metapneumovir PCR (NotDetected) Influenza Type A (PCR) (NotDetected) Influenza Type B (PCR) (NotDetected) M. pneumoniae (PCR) (NotDetected) Parainfluenza 1 (PCR) (NotDetected) Parainfluenza 2 (PCR) (NotDetected) Parainfluenza 3 (PCR) (NotDetected) Parainfluenza 4 (PCR) (NotDetected) RSV (PCR) (NotDetected) Entero/Rhino (PCR) (NotDetected) 01/10/23 01/10/23 01/10/23 Range/Units 20:06 20:06 20:22 WBC (4.8-10.8) K/ul RBC (4.20-5.40) M/uL Hgb (12.0-16.0) g/dl Hct (37.0-47.0) % MCV (80.0-100.0) fL MCH (25.0-34.0) pg MCHC (32.0-36.0) g/dL RDW Std Deviation (36.4-46.3) fL RDW Coeff of Audrey (11.5-14.5) % Plt Count (130-400) K/uL MPV (9.4-12.4) fL Immature Gran % (Auto) % Neut % (Auto) % Lymph % (Auto) % [place] % (Auto) % Eos % (Auto) % Baso % (Auto) % Neut # (Auto) (1.40-6.50) K/uL Lymph # (Auto) (1.20-3.40) K/uL [place] # (Auto) (0.11-0.59) K/uL Eos # (Auto) (0.00-0.50) K/uL Baso # (Auto) (0.00-0.20) K/uL Immature Gran # (Auto) (0.01-0.20) K/uL PT (9.0-12.0) Seconds INR (0.9-1.1) VBG pH 7.36 (7.36-7.41) VBG pCO2 46 (38-50) mmHg VBG pO2 36 mmHg VBG HCO3 26 mmol/L VBG O2 Saturation 60.8 % VBG Base Excess 0.1 mEq/L Sodium (136-145) mmol/L Potassium (3.5-5.1) mmol/L Chloride (98-107) mmol/L Carbon Dioxide (21-32) mmol/L Anion Gap (3-11) BUN (6-23) mg/dl Creatinine (0.6-1.2) mg/dl Est Cr Clr Drug Dosing Est GFR ( Amer) ml/min Est GFR (Non-Af Amer) ml/min BUN/Creatinine Ratio (10-20) Glucose (70-99(Fasting)) mg/dl Calcium (8.6-10.3) mg/dl Phosphorus (2.5-4.9) mg/dl Magnesium (1.7-2.4) mg/dl Total Bilirubin (0.2-1.0) mg/dl AST (13-39) U/L ALT (7-52) U/L Alkaline Phosphatase (34-104) U/L Troponin I High Sens (0-14) pg/ml B-Natriuretic Peptide 30 (0-100) pg/ml Total Protein (6.0-8.3) gm/dl Albumin (3.4-5.0) gm/dl Globulin (2.5-4.0) gm/dl Albumin/Globulin Ratio (0.9-2) Lipase (11-82) U/L Adenovirus (PCR) Not Detected (NotDetected) B. pertussis DNA (PCR) Not Detected (NotDetected) B.parapertussis DNA PCR Not Detected (NotDetected) C. pneumoniae DNA (PCR) Not Detected (NotDetected) Coronavirus OC43 (PCR) Not Detected (NotDetected) Coronavirus HKU1 (PCR) Not Detected (NotDetected) Coronavirus 229E (PCR) Not Detected (NotDetected) SARS-CoV-2 (PCR) Not Detected (NotDetected) Coronavirus NL63 (PCR) Not Detected (NotDetected) Human Metapneumovir PCR Not Detected (NotDetected) Influenza Type A (PCR) Not Detected (NotDetected) Influenza Type B (PCR) Not Detected (NotDetected) M. pneumoniae (PCR) Not Detected (NotDetected) Parainfluenza 1 (PCR) DETECTED A* (NotDetected) Parainfluenza 2 (PCR) Not Detected (NotDetected) Parainfluenza 3 (PCR) Not Detected (NotDetected) Parainfluenza 4 (PCR) Not Detected (NotDetected) RSV (PCR) Not Detected (NotDetected) Entero/Rhino (PCR) Not Detected (NotDetected) Administered Medications Discontinued Medications Albuterol (Albut/Ipratrop 3mg/0.5mg Neb 3 Ml Vial) 3 ml NEB NOW STA; Protocol Stop: 01/10/23 20:51 Last Admin: 01/10/23 20:58 Dose: 3 ml Documented By: Guaifenesin (Guaifenesin 600 Mg Tabcr) 1,200 mg PO NOW STA Stop: 01/10/23 20:51 Last Admin: 01/10/23 20:55 Dose: 1,200 mg Documented By: Sodium Chloride (Nss) 500 mls @ 999 mls/hr IV .Q31M ONE Stop: 01/10/23 20:22 Last Infusion: 01/10/23 21:22 Dose: 0 mls/hr Documented By: Admin: 01/10/23 20:27 Dose: 999 mls/hr Documented By: Ioversol (Optiray 320 125ml) 116 ml IV ONCE ONE Stop: 01/10/23 22:00 Last Admin: 01/10/23 22:00 Dose: 116 ml Documented By: GAVI Lidocaine (Lidocaine 5% 1 Patch) 1 patch TD NOW STA Stop: 01/10/23 20:50 Last Admin: 01/10/23 20:57 Dose: 1 patch Documented By: Lorazepam (Lorazepam 0.5 Mg Tab) 0.5 mg PO NOW STA Stop: 01/10/23 23:16 Last Admin: 01/11/23 00:56 Dose: 0.5 mg Documented By: SHAVONNE Methylprednisolone (Methylprednisolone 125 Mg/2 Ml Vial) 125 mg IV NOW STA Stop: 01/10/23 20:51 Last Admin: 01/10/23 20:56 Dose: 125 mg Documented By: Miscellaneous (Remove Lidoderm Patch) 1 each N/A DAILY@2100 QIAN Stop: 02/09/23 20:59 Last Admin: 01/11/23 02:56 Dose: Not Given Documented By: Admin: 01/11/23 00:56 Dose: Not Given Documented By: SHAVNONE Imaging Data Radiologist's Impression: Chest CTA 01/10/23 20:50 Exam(s): CTA CHEST EXAM: CT Angiography Chest With Intravenous Contrast CLINICAL HISTORY: Reason for exam: sob, r/o PE. TECHNIQUE: Axial computed tomographic angiography images of the chest with intravenous contrast. CTDI is 21.35 mGy and DLP is 854.59 mGy-cm. Automated exposure control was utilized for the study. A dose lowering technique was utilized adhering to the principles of ALARA. MIP reconstructed images were created and reviewed. COMPARISON: CT chest on 12/10/2022 FINDINGS: Pulmonary arteries: Unremarkable. No pulmonary embolus identified. Aorta: No acute findings. No aortic aneurysm or dissection. Lungs: Mild bronchial wall thickening may represent bronchitis. Prominent emphysematous changes. Scarring of the lung apices. Nonspecific stable 7 mm nodules in the lower lobes. Continued follow-up is recommended. Pleural space: Unremarkable. No significant effusion. No pneumothorax. Heart: Coronary artery and aortic valve calcifications. Small amount of pericardial fluid. No evidence of RV dysfunction. Mediastinum: Mild prominence of the wall of the distal esophagus could represent esophagitis. Nonspecific mildly prominent mediastinal and hilar lymph nodes. Bones/joints: Degenerative changes of the spine. No acute fracture. No dislocation. Soft tissues: Unremarkable. Lymph nodes: Unremarkable. No enlarged lymph nodes. Liver: Hepatic steatosis. IMPRESSION: 1. No pulmonary embolus identified. 2. No aortic aneurysm or dissection. 3. Mild prominence of the wall of the distal esophagus could represent esophagitis. 4. Mild bronchial wall thickening may represent bronchitis. 5. Prominent emphysematous changes. 6. Nonspecific stable 7 mm nodules in the lower lobes. Continued follow- up is recommended. Electronically signed by: Ambrosio Olson M.D. 01/10/23 22:17 PM Discharge Plan Visit Data Chief Complaint: Hyperventilation Stated Complaint: CAN'T BREATHE ED Provider: Adrian Zelaya Discharge Problem: Acute on chronic respiratory failure with hypoxia, COPD exacerbation, Parainfluenza type 1 infection Patient Disposition: Admitted As Inpatient Discharge Instructions Interventions: ED Discharge Assessment Last Done: 01/11/23 01:13
[2023-01-10 20:35] LABS: Base Excess VBG 0.1 mEq/L; HCO3 VBG 26 mmol/L; Oxygen Saturation VBG 60.8 %; PCO2 VBG 46 mmHg (38-50); PO2 VBG 36 mmHg; pH VBG 7.36 (7.36-7.41)
[2023-01-10 20:46] LABS: Basophils # (auto) 0.03 K/uL (0.00-0.20); Basophils % (auto) 0.4 %; Eosinophils # (auto) 0.02 K/uL (0.00-0.50); Eosinophils % (auto) 0.3 %; Hematocrit (blood only) 37.5 % (37.0-47.0); Hemoglobin 12.5 g/dl (12.0-16.0); Immature Granulocytes # (auto) 0.02 K/uL (0.01-0.20); Immature Granulocytes % (auto) 0.3 %; Lymphocytes # (auto) 0.94 K/uL (1.20-3.40); Lymphocytes % (auto) 11.9 %; Mean Corpuscular Hemoglobin 29.2 pg (25.0-34.0); Mean Corpuscular Hgb Conc 33.3 g/dL (32.0-36.0); Mean Corpuscular Volume 87.6 fL (80.0-100.0); Mean Platelet Volume 10.2 fL (9.4-12.4); Monocytes # (auto) 0.75 K/uL (0.11-0.59); Monocytes % (auto) 9.5 %; Neutrophils # (auto) 6.11 K/uL (1.40-6.50); Neutrophils % (auto) 77.6 %; Platelet Count 283 K/uL (130-400); RDW Coefficient of Variation 12.9 % (11.5-14.5); RDW Standard Deviation 40.8 fL (36.4-46.3); Red Blood Count 4.28 M/uL (4.20-5.40); White Blood Count 7.87 K/ul (4.8-10.8)
[2023-01-10] MEDS ORDERED: LIDOCAINE 5% 1 PATCH TD STA (20:49)
[2023-01-10] MEDS ORDERED: methylPREDNISolone 125 MG/2 ML VIAL IV STA (20:50)
[2023-01-10] MEDS ORDERED: guaiFENesin 600 MG TABCR PO STA (20:50)
[2023-01-10] MEDS ORDERED: ALBUT/IPRATROP 3MG/0.5MG NEB 3 ML VIAL NEB STA (20:50)
[2023-01-10 20:58] LABS: Alanine Aminotransferase 22 U/L (7-52); Albumin Globulin Ratio 1.5 (0.9-2); Albumin Level 4.1 gm/dl (3.4-5.0); Alkaline Phosphatase 94 U/L (34-104); Anion Gap 8 (3-11); Aspartate Aminotransferase 25 U/L (13-39); Bilirubin,Total 0.4 mg/dl (0.2-1.0); Blood Urea Nitrogen 10 mg/dl (6-23); Calcium 8.4 mg/dl (8.6-10.3); Carbon Dioxide 25 mmol/L (21-32); Chloride 105 mmol/L (98-107); Est GFR (African American) 75.1 ml/min; Est GFR (Non-African American) 64.8 ml/min; Globulin 2.7 gm/dl (2.5-4.0); Glucose 118 mg/dl (70-99(Fasting)); Lipase 34 U/L (11-82); Magnesium 1.8 mg/dl (1.7-2.4); Phosphorus 3.6 mg/dl (2.5-4.9); Potassium 3.7 mmol/L (3.5-5.1); Sodium 138 mmol/L (136-145); Total Protein 6.8 gm/dl (6.0-8.3)
[2023-01-10 21:04] LABS: Troponin I High Sensitivity 6.4 pg/ml (0-14)
[2023-01-10 21:08] LABS: INR 0.9 (0.9-1.1); Prothrombin Time 9.8 Seconds (9.0-12.0)
[2023-01-10 21:28] LABS: Adenovirus PCR Not Detected (NotDetected); Bordetella parapertussis PCR Not Detected (NotDetected); Bordetella pertussis PCR Not Detected (NotDetected); Chlamydia pneumoniae PCR Not Detected (NotDetected); Coronavirus 229E PCR Not Detected (NotDetected); Coronavirus CoV-2 (COVID19)PCR Not Detected (NotDetected); Coronavirus HKU1 PCR Not Detected (NotDetected); Coronavirus NL63 PCR Not Detected (NotDetected); Coronavirus OC43PCR Not Detected (NotDetected); Human Metapneumovirus PCR Not Detected (NotDetected); Influenza A PCR Not Detected (NotDetected); Influenza B PCR Not Detected (NotDetected); Mycoplasma pneumoniae PCR Not Detected (NotDetected); Parainfluenza Virus 2 PCR Not Detected (NotDetected); Parainfluenza Virus 3 PCR Not Detected (NotDetected); Parainfluenza Virus 4 PCR Not Detected (NotDetected); Respiratory Syncytial VirusPCR Not Detected (NotDetected); Rhinovirus/Enterovirus PCR Not Detected (NotDetected)
[2023-01-10 21:50] LABS: Parainfluenza Virus 1 PCR DETECTED (NotDetected)
[2023-01-10] MEDS ORDERED: OPTIRAY 320 125ml IV ONE (21:59)
--- NOTE | 2023-01-10 22:18 | CT Scan Report ---
Exam(s): CTA CHEST EXAM: CT Angiography Chest With Intravenous Contrast CLINICAL HISTORY: Reason for exam: sob, r/o PE. TECHNIQUE: Axial computed tomographic angiography images of the chest with intravenous contrast. CTDI is 21.35 mGy and DLP is 854.59 mGy-cm. Automated exposure control was utilized for the study. A dose lowering technique was utilized adhering to the principles of ALARA. MIP reconstructed images were created and reviewed. COMPARISON: CT chest on 12/10/2022 FINDINGS: Pulmonary arteries: Unremarkable. No pulmonary embolus identified. Aorta: No acute findings. No aortic aneurysm or dissection. Lungs: Mild bronchial wall thickening may represent bronchitis. Prominent emphysematous changes. Scarring of the lung apices. Nonspecific stable 7 mm nodules in the lower lobes. Continued follow-up is recommended. Pleural space: Unremarkable. No significant effusion. No pneumothorax. Heart: Coronary artery and aortic valve calcifications. Small amount of pericardial fluid. No evidence of RV dysfunction. Mediastinum: Mild prominence of the wall of the distal esophagus could represent esophagitis. Nonspecific mildly prominent mediastinal and hilar lymph nodes. Bones/joints: Degenerative changes of the spine. No acute fracture. No dislocation. Soft tissues: Unremarkable. Lymph nodes: Unremarkable. No enlarged lymph nodes. Liver: Hepatic steatosis. IMPRESSION: 1. No pulmonary embolus identified. 2. No aortic aneurysm or dissection. 3. Mild prominence of the wall of the distal esophagus could represent esophagitis. 4. Mild bronchial wall thickening may represent bronchitis. 5. Prominent emphysematous changes. 6. Nonspecific stable 7 mm nodules in the lower lobes. Continued follow- up is recommended. Electronically signed by: Ambrosio Olson M.D. 01/10/23 22:17 PM
[2023-01-10] MEDS ORDERED: LORazepam 0.5 MG TAB PO STA (23:15)
--- NOTE | 2023-01-10 23:25 | History & Physical Report ---
Date of Service January 10, 2023 Assessment & Plan (1) Parainfluenza type 1 infection: (2) History of tobacco use: (3) Paroxysmal atrial tachycardia: (4) Acute on chronic respiratory failure with hypoxia: (5) Acute exacerbation of chronic obstructive pulmonary disease: (6) Multiple pulmonary nodules: (7) Anxiety with depression: Plan Parainfluenza 1 infection/COPD exacerbation/tobacco use disorder- Received methylprednisolone 125 mg IV in ED, and will continue 60 mg IV every 8 hours Received guaifenesin 1200 mg p.o. in ED will continue twice daily Azithromycin 500 mg IV daily Continue Roflumilast to 750 mcg daily Continue Trelegy Ellipta Albuterol HFA 2 puffs every 6 hours as needed Tessalon Perles 100 mg p.o. 3 times daily as needed cough Duonebs 4 times daily Anxiety with depression- Continue Lexapro 15 mg every morning Increase lorazepam 0.5 mg p.o. every 6 hours as needed, with first dose now GERD/question esophagitis on CT scan- Placed on famotidine 20 mg p.o. twice daily History of Present Illness Chief Complaint: The patient presents to the emergency department with worsening shortness of breath, chest congestion and cough over the past week, and feels very jittery this evening. She also reports generalized muscle aches and body aches. Primary Care Provider: NO PCP The patient is a 67-year-old female with a past medical history including tobacco use, paroxysmal atrial tachycardia, chronic respiratory failure with hypoxia, COPD, GERD, acute pericardial effusion, multiple pulmonary nodules, anxiety with depression and obstructive sleep apnea. The patient presents to the emergency department with worsening shortness of breath, chest congestion and cough over the past week and development of jitteriness and tremors today. She denies any recent travels or sick exposures. She has been taking all medications and inhalers as directed. Significant laboratories: Viral PCR positive for parainfluenza 1 From the emergency department the patient received the following: Normal saline 500 mL, guaifenesin 1200 mg p.o., methylprednisolone 125 mg IV, and a DuoNeb Allergies Allergy/AdvReac Type Severity Reaction Status Date / Time aspirin AdvReac Intermediate GI SYMPTOMS Verified 01/10/23 22:32 Home Medications Medication Instructions Recorded Confirmed Type CPAP Machine #1 ea 12/06/19 12/16/22 Rx CPAP Supplies #1 ea 05/11/21 12/16/22 Rx lorazepam 0.5 mg tablet 0.5 mg PO Q8H PRN anxiety #7 tabs 05/17/22 01/10/23 Rx escitalopram oxalate 10 mg tablet 15 mg PO QAM 08/05/22 01/10/23 History (Lexapro) ProAir HFA 90 mcg/actuation 2 puff inhalation Q4 PRN Shortness 09/03/22 01/10/23 Rx aerosol inhaler (albuterol sulfate) Of Breath Or Wheezing #8.5 grams ipratropium 0.5 mg-albuterol 3 mg 3 ml inhalation QID PRN Shortness 09/03/22 01/10/23 Rx (2.5 mg base)/3 mL nebulization Of Breath #360 mL soln Portable Oxygen #1 ea 09/15/22 12/16/22 Rx fluticasone fur. 100 mcg-umeclid 1 inh inhalation DAILY #28 ea 10/27/22 01/10/23 Rx 62.5 mcg-vilant 25 mcg inhalat.powder (Trelegy Ellipta) ipratropium 0.5 mg-albuterol 3 mg 3 ml inhalation QID 11/15/22 01/10/23 History (2.5 mg base)/3 mL nebulization soln roflumilast 250 mcg tablet 250 mcg PO DAILY 4 weeks #28 tabs 11/17/22 01/10/23 Rx roflumilast 500 mcg tablet 500 mcg PO DAILY #30 tabs 11/17/22 01/10/23 Rx prednisone 20 mg tablet 40 mg PO .DAILY [id number] 01/10/23 01/10/23 History Past Med/Surg History Medical History Anxiety with depression Asthma Chronic obstructive pulmonary disease with hypoxia 3L NC CONTINUOUS Pulm - Min [place] Chronic respiratory failure COPD exacerbation [facility] 09/2022 History of COVID-19 12/2021 and 04/2021- sob, cough, fatigue; resolved History of recent pneumonia 09/2022 Multiple pulmonary nodules Sleep apnea, obstructive CPAP SOB (shortness of breath) Surgical History H/O partial thyroidectomy 1990s d/t hemorrhaging?--unknown cause, no meds History of broken collarbone sx to repair History of carpal tunnel surgery of right wrist History of partial hysterectomy History of tooth extraction all teeth Hx of colonoscopy Hx of right cataract extraction Family History Mother , from ovarian cancer Cancer Ovarian Sister Cancer Ovarian Father COPD (chronic obstructive pulmonary disease) Other No family history of adverse response to anesthesia Social History Smoking Status: Former smoker Tobacco Type: Cigarettes Age Started Using Tobacco: 17; Age Quit Using Tobacco: 64; packs per day: 1; Cigarettes Per Day: quit ~ 2yrs ago; Second Hand Exposure: No; Do You Dip or Chew Tobacco: No; Hx Alcohol Use: No Hx Substance Use: No Preferred Language: Spanish 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 Ability: Effective 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 President Of Nursing 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 Beliefs That Will Affect Care: None marital status: Current Living Situation: Family Current Living Situation Comment: Lives with daughter Virgen Feels Safe at Home: Yes Assistive Devices: CPAP, Denture - Upper, Denture - Lower, Nebulizer, Oxygen - Continuous and Wheelchair Review of Systems Review of Systems: The patient denies chest pain, palpitations, lower extremity swelling, sore throat, fevers, chills, sweats, nausea, vomiting, diarrhea , constipation, abdominal pain, pelvic pain, blood in urine or stool, dysuria, urinary frequency or urgency, lightheadedness, dizziness, headache, memory loss, loss of consciousness, rash, abnormal bruising or bleeding, imbalance, focal or generalized weakness, numbness or tingling in arms or legs, back or neck pain, or night sweats. The review of systems is otherwise negative other than for that already noted above, and at least 10 systems have been reviewed. Physical Exam Physical Exam: The patient is awake, alert and oriented 3, well developed and well nourished, normocephalic and atraumatic, lying in bed and in no acute distress. HEENT--PERRL, EOMI, mucous membranes and oropharynx dry. Neck--supple. No JVD. No bruits. Thyroid normal, trachea midline, no adenopathy. Heart--normal S1 and S2. No murmurs, rubs or gallops. Lungs--diffuse inspiratory and expiratory wheezing bilaterally. No respiratory distress, no accessory muscle use. Abdomen--normal bowel sounds and soft. Nontender. Nondistended, no hernias or masses, no organomegaly. Extremities--no cyanosis or clubbing. No edema. Dermatologic--normal skin turgor, normal color, no abnormal lymph nodes, no rash. Neurologic--cranial nerves II through XII grossly intact. Rheumatologic--normal range of motion. Psychiatric--normal affect. Results & Data Results & Data Vital Signs (Past 12 Hours) Vital Signs Temp Pulse Resp BP Pulse Ox O2 Del Method O2 Flow Rate 01/10/23 19:21 Nasal Cannula 4 01/10/23 19:24 36.9 C 108 H 24 166/85 H 89 L Nasal Cannula 3 Laboratory Results Laboratory Results WBC 7.87 K/ul (4.8-10.8) 01/10/23 20:06 RBC 4.28 M/uL (4.20-5.40) 01/10/23 20:06 Hgb 12.5 g/dl (12.0-16.0) 01/10/23 20:06 Hct 37.5 % (37.0-47.0) 01/10/23 20:06 MCV 87.6 fL (80.0-100.0) 01/10/23 20:06 MCH 29.2 pg (25.0-34.0) 01/10/23 20:06 MCHC 33.3 g/dL (32.0-36.0) 01/10/23 20:06 RDW Std Deviation 40.8 fL (36.4-46.3) 01/10/23 20:06 RDW Coeff of Audrey 12.9 % (11.5-14.5) 01/10/23 20:06 Plt Count 283 K/uL (130-400) 01/10/23 20:06 MPV 10.2 fL (9.4-12.4) 01/10/23 20:06 Immature Gran % (Auto) 0.3 % 01/10/23 20:06 Neut % (Auto) 77.6 % 01/10/23 20:06 Lymph % (Auto) 11.9 % 01/10/23 20:06 [place] % (Auto) 9.5 % 01/10/23 20:06 Eos % (Auto) 0.3 % 01/10/23 20:06 Baso % (Auto) 0.4 % 01/10/23 20:06 Neut # (Auto) 6.11 K/uL (1.40-6.50) 01/10/23 20:06 Lymph # (Auto) 0.94 K/uL (1.20-3.40) L 01/10/23 20:06 [place] # (Auto) 0.75 K/uL (0.11-0.59) H 01/10/23 20:06 Eos # (Auto) 0.02 K/uL (0.00-0.50) 01/10/23 20:06 Baso # (Auto) 0.03 K/uL (0.00-0.20) 01/10/23 20:06 Immature Gran # (Auto) 0.02 K/uL (0.01-0.20) 01/10/23 20:06 PT 9.8 Seconds (9.0-12.0) 01/10/23 20:06 INR 0.9 (0.9-1.1) 01/10/23 20:06 VBG pH 7.36 (7.36-7.41) 01/10/23 20:22 VBG pCO2 46 mmHg (38-50) 01/10/23 20:22 VBG pO2 36 mmHg 01/10/23 20:22 VBG HCO3 26 mmol/L 01/10/23 20:22 VBG O2 Saturation 60.8 % 01/10/23 20: VBG Base Excess 0.1 mEq/L 01/10/23 20:22 Sodium 138 mmol/L (136-145) 01/10/23 20:06 Potassium 3.7 mmol/L (3.5-5.1) 01/10/23 20:06 Chloride 105 mmol/L (98-107) 01/10/23 20:06 Carbon Dioxide 25 mmol/L (21-32) 01/10/23 20:06 Anion Gap 8 (3-11) 01/10/23 20:06 BUN 10 mg/dl (6-23) 01/10/23 20:06 Creatinine 0.91 mg/dl (0.6-1.2) 01/10/23 20:06 Est Cr Clr Drug Dosing Not Reportable 01/10/23 20:06 Est GFR ( Amer) 75.1 ml/min 01/10/23 20:06 Est GFR (Non-Af Amer) 64.8 ml/min 01/10/23 20:06 BUN/Creatinine Ratio 11.0 (10-20) 01/10/23 20:06 Glucose 118 mg/dl (70-99(Fasting)) H 01/10/23 20:06 Calcium 8.4 mg/dl (8.6-10.3) L 01/10/23 20:06 Phosphorus 3.6 mg/dl (2.5-4.9) 01/10/23 20:06 Magnesium 1.8 mg/dl (1.7-2.4) 01/10/23 20:06 Total Bilirubin 0.4 mg/dl (0.2-1.0) 01/10/23 20:06 AST 25 U/L (13-39) 01/10/23 20:06 ALT 22 U/L (7-52) 01/10/23 20:06 Alkaline Phosphatase 94 U/L (34-104) 01/10/23 20:06 Troponin I High Sens 6.4 pg/ml (0-14) 01/10/23 20:06 B-Natriuretic Peptide 30 pg/ml (0-100) 01/10/23 20:06 Total Protein 6.8 gm/dl (6.0-8.3) 01/10/23 20:06 Albumin 4.1 gm/dl (3.4-5.0) 01/10/23 20:06 Globulin 2.7 gm/dl (2.5-4.0) 01/10/23 20:06 Albumin/Globulin Ratio 1.5 (0.9-2) 01/10/23 20:06 Lipase 34 U/L (11-82) 01/10/23 20:06 Adenovirus (PCR) Not Detected (NotDetected) 01/10/23 20:06 B. pertussis DNA (PCR) Not Detected (NotDetected) 01/10/23 20:06 B.parapertussis DNA PCR Not Detected (NotDetected) 01/10/23 20:06 C. pneumoniae DNA (PCR) Not Detected (NotDetected) 01/10/23 20:06 Coronavirus OC43 (PCR) Not Detected (NotDetected) 01/10/23 20:06 Coronavirus HKU1 (PCR) Not Detected (NotDetected) 01/10/23 20:06 Coronavirus 229E (PCR) Not Detected (NotDetected) 01/10/23 20:06 SARS-CoV-2 (PCR) Not Detected (NotDetected) 01/10/23 20:06 Coronavirus NL63 (PCR) Not Detected (NotDetected) 01/10/23 20:06 Human Metapneumovir PCR Not Detected (NotDetected) 01/10/23 20:06 Influenza Type A (PCR) Not Detected (NotDetected) 01/10/23 20:06 Influenza Type B (PCR) Not Detected (NotDetected) 01/10/23 20:06 M. pneumoniae (PCR) Not Detected (NotDetected) 01/10/23 20:06 Parainfluenza 1 (PCR) DETECTED (NotDetected) A* 01/10/23 20:06 Parainfluenza 2 (PCR) Not Detected (NotDetected) 01/10/23 20:06 Parainfluenza 3 (PCR) Not Detected (NotDetected) 01/10/23 20:06 Parainfluenza 4 (PCR) Not Detected (NotDetected) 01/10/23 20:06 RSV (PCR) Not Detected (NotDetected) 01/10/23 20:06 Entero/Rhino (PCR) Not Detected (NotDetected) 01/10/23 20:06 Impressions Chest CTA 01/10/23 20:50 Exam(s): CTA CHEST EXAM: CT Angiography Chest With Intravenous Contrast CLINICAL HISTORY: Reason for exam: sob, r/o PE. TECHNIQUE: Axial computed tomographic angiography images of the chest with intravenous contrast. CTDI is 21.35 mGy and DLP is 854.59 mGy-cm. Automated exposure control was utilized for the study. A dose lowering technique was utilized adhering to the principles of ALARA. MIP reconstructed images were created and reviewed. COMPARISON: CT chest on 12/10/2022 FINDINGS: Pulmonary arteries: Unremarkable. No pulmonary embolus identified. Aorta: No acute findings. No aortic aneurysm or dissection. Lungs: Mild bronchial wall thickening may represent bronchitis. Prominent emphysematous changes. Scarring of the lung apices. Nonspecific stable 7 mm nodules in the lower lobes. Continued follow-up is recommended. Pleural space: Unremarkable. No significant effusion. No pneumothorax. Heart: Coronary artery and aortic valve calcifications. Small amount of pericardial fluid. No evidence of RV dysfunction. Mediastinum: Mild prominence of the wall of the distal esophagus could represent esophagitis. Nonspecific mildly prominent mediastinal and hilar lymph nodes. Bones/joints: Degenerative changes of the spine. No acute fracture. No dislocation. Soft tissues: Unremarkable. Lymph nodes: Unremarkable. No enlarged lymph nodes. Liver: Hepatic steatosis. IMPRESSION: 1. No pulmonary embolus identified. 2. No aortic aneurysm or dissection. 3. Mild prominence of the wall of the distal esophagus could represent esophagitis. 4. Mild bronchial wall thickening may represent bronchitis. 5. Prominent emphysematous changes. 6. Nonspecific stable 7 mm nodules in the lower lobes. Continued follow- up is recommended. Electronically signed by: Ambrosio Olson M.D. 01/10/23 22:17 PM Code Status & VTE Plan Code Status Full code VTE Prophylaxis Plan VTE Prophylaxis will be ordered: Yes PG Care Time/CCT Total # of Minutes Spent Total Time Spent with Patient: Total time spent is greater than 50% in coordination of care (as documented) at patient's floor/unit and/or counseling patient: Coding Level of Care Code 89846 INT INP/OBS CARE 3/75MIN Diagnoses Parainfluenza type 1 infection B34.8 History of tobacco use Z87.891 Paroxysmal atrial tachycardia I47.1 Acute on chronic respiratory failure with hypoxia J96.21 Acute exacerbation of chronic obstructive pulmonary disease J44.1 Multiple pulmonary nodules R91.8 Anxiety with depression F41.8
[2023-01-11] MEDS ORDERED: ONDANSETRON INJ 2 MG/ML 2 ML VIAL IV PRN (01:12)
[2023-01-11] MEDS: ACETAMINOPHEN 325 MG TAB PO PRN ×3 (05:23→17:36)
[2023-01-11] MEDS: ALBUTEROL HFA 8 GM INHALER INH PRN (05:43)
[2023-01-11] MEDS: methylPREDNISolone 60 MG in SYRINGE 0 ML IV SCH ×2 (05:51→14:42)
--- NOTE | 2023-01-11 07:11 | XRay Report ---
XR chest 1V portable CLINICAL HISTORY: Chest pain, nonspecific TECHNIQUE: Single frontal radiograph of the chest was obtained. Comparison: Comparison is made to chest radiograph 12/10/2022 FINDINGS: No lines and tubes are seen. The cardiomediastinal silhouette is normal. Reticular interstitial opaci ties are seen. No evidence of pleural effusion or pneumothorax. IMPRESSION: No acute chest disease. ACT 112: Negative or not required by law. Electronically signed by: Darrell Sanchez M.D. 01/11/2023 7:09 AM
[2023-01-11] MEDS: ALBUT/IPRATROP 3MG/0.5MG NEB 3 ML VIAL INH SCH ×4 (07:33→20:01)
[2023-01-11] MEDS: ENOXAPARIN INJ 40 MG/0.4 ML SYR SQ SCH (08:07)
[2023-01-11] MEDS: ESCITALOPRAM OXALATE 10 MG TAB PO SCH (08:07)
[2023-01-11] MEDS: FAMOTIDINE 20 MG TAB PO SCH ×2 (08:07→20:48)
[2023-01-11] MEDS: guaiFENesin 600 MG TABCR PO SCH ×2 (08:07→20:48)
[2023-01-11] MEDS: ROFLUMILAST 500 MCG TAB PO SCH (08:08)
[2023-01-11] MEDS: FLUTICASONE FUROATE 100MCG 14 PUFFS/INHALER INH SCH (08:11)
[2023-01-11] MEDS: UMECLIDINIUM/VILANTEROL 62.5/25MCG 7 PUFFS/INHALER INH SCH (08:11)
[2023-01-11] MEDS ORDERED: NON-FORMULARY MEDICATION (Fluticasone-Umeclidin-Vilanter [Trelegy Ellipta] 100-62.5-25 mcg INH SCH (09:00)
[2023-01-11] MEDS ORDERED: NON-FORMULARY MEDICATION (Fluticasone-Umeclidin-Vilanter [Trelegy Ellipta] 200-62.5-25 mcg INH SCH (09:00)
[2023-01-11] MEDS ORDERED: ROFLUMILAST 500 MCG TAB PO SCH ×2 (09:00)
[2023-01-11] MEDS ORDERED: KETOROLAC TROMETHAMINE 15 MG/ML VIAL IV ONE (20:42)
--- NOTE | 2023-01-11 22:41 | Hospitalist Progress Note ---
Date of Service January 11, 2023 Assessment & Plan (1) Parainfluenza type 1 infection: Plan: Parainfluenza 1 infection/COPD exacerbation/tobacco use disorder- Stopped methylprednisolone as this could worse clinical picture with parainfluenza will continue below treatment. Received guaifenesin 1200 mg p.o. in ED will continue twice daily Azithromycin 500 mg IV daily Continue Roflumilast to 750 mcg daily Continue Trelegy Ellipta Albuterol HFA 2 puffs every 6 hours as needed Tessalon Perles 100 mg p.o. 3 times daily as needed cough Duonebs 4 times daily Anxiety with depression- Continue Lexapro 15 mg every morning Increase lorazepam 0.5 mg p.o. every 6 hours as needed, with first dose now GERD/question esophagitis on CT scan- Placed on famotidine 20 mg p.o. twice daily (2) History of tobacco use: (3) Paroxysmal atrial tachycardia: (4) Acute on chronic respiratory failure with hypoxia: (5) Acute exacerbation of chronic obstructive pulmonary disease: (6) Multiple pulmonary nodules: (7) Anxiety with depression: Admission and Anticipated Discharge Date Admission Date: January 10, 2023 Subjective 67 yo female reports no signifcant improvement today. Review of Systems Review of Systems: All systems reviewed & are unremarkable except as noted in HPI & below Physical Exam Physical Exam: The patient is awake, alert and oriented 3 HEENT--PERRL, EOMI, mucous membranes and oropharynx dry. Neck--supple. No JVD. No bruits. Thyroid normal, trachea midline, no adenopathy. Heart--normal S1 and S2. No murmurs, rubs or gallops. Lungs--diffuse inspiratory and expiratory wheezing bilaterally. No respiratory distress, no accessory muscle use. Abdomen--normal bowel sounds and soft. Nontender. Nondistended, no hernias or masses, no organomegaly. Extremities--no cyanosis or clubbing. No edema. Results & Data Results & Data Vital Signs (Past 12 Hours) Vital Signs Temp Pulse Pulse Pulse Resp BP BP 01/11/23 19:36 36.8 C 92 H 20 169/85 H 01/11/23 20:02 87 18 01/11/23 17:14 01/11/23 16:44 96 H 01/11/23 15:54 36.8 C 88 26 H 01/11/23 14:00 81 27 H 01/11/23 13:00 95 H 31 H 01/11/23 12:00 81 30 H 01/11/23 15:04 88 27 H 01/11/23 14:44 96 H 22 01/11/23 11:18 96 H 28 H 01/11/23 11:00 106 H 29 H 182/89 H BP Pulse Ox O2 Del Method O2 Flow Rate 01/11/23 19:36 91 Nasal Cannula 3 01/11/23 20:02 93 Nasal Cannula 3 01/11/23 17:14 Nasal Cannula 3 01/11/23 16:44 01/11/23 15:54 158/85 H 93 Nasal Cannula 3 01/11/23 14:00 95 Nasal Cannula 3 01/11/23 13:00 94 Nasal Cannula 3 01/11/23 12:00 93 Nasal Cannula 3 01/11/23 15:04 157/96 H 95 Nasal Cannula 3.5 01/11/23 14:44 93 Nasal Cannula 3 01/11/23 11:18 93 Nasal Cannula 3 01/11/23 11:00 90 Nasal Cannula 3 PG Care Time/CCT Total # of Minutes Spent Total Time Spent with Patient: Total time spent is greater than 50% in coordination of care (as documented) at patient's floor/unit and/or counseling patient: Coding Level of Care Code 82253 SUB INP/OBS CARE 2/35MIN Diagnoses Parainfluenza type 1 infection B34.8 History of tobacco use Z87.891 Paroxysmal atrial tachycardia I47.1 Acute on chronic respiratory failure with hypoxia J96.21 Acute exacerbation of chronic obstructive pulmonary disease J44.1 Multiple pulmonary nodules R91.8 Anxiety with depression F41.8
[2023-01-12 05:25] LABS: Hematocrit (blood only) 34.4 % (37.0-47.0); Hemoglobin 11.6 g/dl (12.0-16.0); Mean Corpuscular Hemoglobin 29.4 pg (25.0-34.0); Mean Corpuscular Hgb Conc 33.7 g/dL (32.0-36.0); Mean Corpuscular Volume 87.1 fL (80.0-100.0); Mean Platelet Volume 9.5 fL (9.4-12.4); Platelet Count 241 K/uL (130-400); RDW Coefficient of Variation 12.6 % (11.5-14.5); RDW Standard Deviation 40.3 fL (36.4-46.3); Red Blood Count 3.95 M/uL (4.20-5.40)
[2023-01-12 05:29] LABS: BUN Creatinine Ratio 25.5 (10-20); C Reactive Protein 1.84 mg/dl (0-0.5); Calcium 8.3 mg/dl (8.6-10.3); Creatinine Clr Calc Pharmacy 52.7 ml/min; Est GFR (African American) 68.7 ml/min; Est GFR (Non-African American) 59.3 ml/min; Potassium 4.4 mmol/L (3.5-5.1)
[2023-01-12] MEDS: ALBUT/IPRATROP 3MG/0.5MG NEB 3 ML VIAL INH SCH ×4 (07:39→20:06)
[2023-01-12] MEDS: ROFLUMILAST 500 MCG TAB PO SCH (08:55)
[2023-01-12] MEDS: ESCITALOPRAM OXALATE 10 MG TAB PO SCH (08:55)
[2023-01-12] MEDS: guaiFENesin 600 MG TABCR PO SCH ×2 (08:56→20:51)
[2023-01-12] MEDS: ENOXAPARIN INJ 40 MG/0.4 ML SYR SQ SCH (08:56)
[2023-01-12] MEDS: FAMOTIDINE 20 MG TAB PO SCH ×2 (08:56→20:52)
[2023-01-12] MEDS: UMECLIDINIUM/VILANTEROL 62.5/25MCG 7 PUFFS/INHALER INH SCH (08:57)
[2023-01-12] MEDS: FLUTICASONE FUROATE 100MCG 14 PUFFS/INHALER INH SCH (08:57)
[2023-01-12] MEDS: LORazepam 0.5 MG TAB PO PRN ×2 (10:07→16:43)
--- NOTE | 2023-01-12 11:36 | Hospitalist Progress Note ---
Date of Service January 12, 2023 Assessment & Plan (1) Parainfluenza type 1 infection: Plan: Parainfluenza 1 infection/COPD exacerbation/tobacco use disorder- BASELINE O2: 3 LITERS AT REST. Stopped methylprednisolone as this could worsen patients with parainfluenza will also hold inhaled corticosteroids for the short term, last dose today on 01/12, will resume once patient recovers will continue below treatment. Received guaifenesin 1200 mg p.o. in ED will continue twice daily Azithromycin 500 mg IV daily Continue Roflumilast to 750 mcg daily Continue Trelegy Ellipta Albuterol HFA 2 puffs every 6 hours as needed Tessalon Perles 100 mg p.o. 3 times daily as needed cough Duonebs 4 times daily Anxiety with depression- Continue Lexapro 15 mg every morning Increase lorazepam 0.5 mg p.o. every 6 hours as needed, with first dose now GERD/question esophagitis on CT scan- Placed on famotidine 20 mg p.o. twice daily (2) History of tobacco use: (3) Paroxysmal atrial tachycardia: (4) Acute on chronic respiratory failure with hypoxia: (5) Acute exacerbation of chronic obstructive pulmonary disease: (6) Multiple pulmonary nodules: (7) Anxiety with depression: Admission and Anticipated Discharge Date Admission Date: January 10, 2023 Subjective Patient reports feeling worse today. She reports having more SOB today. Patient reports having a sick contact at home, her daughter has been sick for about 1 week with respiratory symptoms despite not having any chronic lung problems. Patient however states that she blames her influenza vaccine for her parainfluenza infection. Review of Systems Review of Systems: All systems reviewed & are unremarkable except as noted in HPI & below Physical Exam Physical Exam: The patient is awake, alert and oriented 3 HEENT--PERRL, EOMI, mucous membranes and oropharynx dry. Neck--supple. No JVD. No bruits. Thyroid normal, trachea midline, no adenopathy. Heart--normal S1 and S2. No murmurs, rubs or gallops. Lungs--decreased No respiratory distress, no accessory muscle use. Abdomen--normal bowel sounds and soft. Nontender. Nondistended, no hernias or masses, no organomegaly. Extremities--no cyanosis or clubbing. No edema. Results & Data Results & Data Vital Signs (Past 12 Hours) Vital Signs Temp Pulse Resp BP Pulse Ox O2 Del Method O2 Flow Rate 01/12/23 10:43 89 20 96 Nasal Cannula 3 01/12/23 07:41 72 22 92 Nasal Cannula 3 01/12/23 07:30 36.9 C 77 20 139/89 91 Nasal Cannula 2 01/12/23 03:34 36.4 C L 69 20 159/77 H 93 Nasal Cannula 3 01/11/23 23:38 Nasal Cannula 3 PG Care Time/CCT Total # of Minutes Spent Total Time Spent with Patient: Total time spent is greater than 50% in coordination of care (as documented) at patient's floor/unit and/or counseling patient: Coding Level of Care Code 91043 SUB INP/OBS CARE 2/35MIN Diagnoses Parainfluenza type 1 infection B34.8 History of tobacco use Z87.891 Paroxysmal atrial tachycardia I47.1 Acute on chronic respiratory failure with hypoxia J96.21 Acute exacerbation of chronic obstructive pulmonary disease J44.1 Multiple pulmonary nodules R91.8 Anxiety with depression F41.8
[2023-01-12] MEDS ORDERED: SODIUM CHLORIDE 0.65% NA SOLN 45 ML (OCEAN) PRN (11:44)
--- NOTE | 2023-01-12 14:09 | XRay Report ---
XR chest 2V PA/lateral HISTORY: Shortness of breath/ parainfluenza infection COMPARISON: Chest 01/10/2023. FINDINGS: No pneumothorax. No pleural effusions. The cardiac silhouette remains borderline enlarged. No evidence for pulmonary edema. There is a new small right infrahilar airspace opacity. Mild chronic interstitial thickening persists. The patient's known lower lobe pulmonary nodules are better apprec iated on the recent chest CTA. Emphysema again noted. IMPRESSION: 1. This is new small right infrahilar airspace opacity which could represent a developing pneumonitis . 2. Emphysema again noted. ACT 112: Negative or not required by law. Electronically signed by: Rodrigue Palacios M.D. 01/12/2023 2:07 PM
[2023-01-12] MEDS: ALBUTEROL HFA 8 GM INHALER INH PRN (20:52)
--- NOTE | 2023-01-12 21:44 | Electrocardiogram Report ---
Test Reason : Blood Pressure : / mmHG Vent. Rate : 099 BPM Atrial Rate : 099 BPM P-R Int : 130 ms QRS Dur : 074 ms QT Int : 352 ms P-R-T Axes : 079 069 054 degrees QTc Int : 451 ms Normal sinus rhythm Nonspecific ST and T wave abnormality Abnormal ECG When compared with ECG of 10-DEC-2022 19:55, Non-specific change in ST segment in Inferior leads ST now depressed in Lateral leads Nonspecific T wave abnormality now evident in Inferior leads Nonspecific T wave abnormality now evident in Lateral leads Confirmed by Marcello Rodríguez ([id number]) on 01/12/2023 9:44:26 PM Referred By: REFERRED SELF Confirmed By:Marcello Rodríguez
[2023-01-13 05:13] LABS: Hematocrit (blood only) 33.4 % (37.0-47.0); Hemoglobin 11.3 g/dl (12.0-16.0); Mean Corpuscular Hemoglobin 29.4 pg (25.0-34.0); Mean Corpuscular Hgb Conc 33.8 g/dL (32.0-36.0); Mean Platelet Volume 9.2 fL (9.4-12.4); Platelet Count 230 K/uL (130-400); RDW Coefficient of Variation 12.8 % (11.5-14.5); RDW Standard Deviation 40.7 fL (36.4-46.3); Red Blood Count 3.84 M/uL (4.20-5.40); White Blood Count 7.37 K/ul (4.8-10.8)
[2023-01-13 05:27] LABS: BUN Creatinine Ratio 27.3 (10-20); C Reactive Protein 3.55 mg/dl (0-0.5); Calcium 7.6 mg/dl (8.6-10.3); Creatinine Clr Calc Pharmacy 58.6 ml/min; Est GFR (African American) 78.2 ml/min; Est GFR (Non-African American) 67.5 ml/min; Potassium 3.6 mmol/L (3.5-5.1)
[2023-01-13] MEDS: ALBUT/IPRATROP 3MG/0.5MG NEB 3 ML VIAL INH SCH ×4 (07:02→19:18)
[2023-01-13] MEDS: ESCITALOPRAM OXALATE 10 MG TAB PO SCH (08:27)
[2023-01-13] MEDS: LORazepam 0.5 MG TAB PO PRN ×3 (08:27→21:56)
[2023-01-13] MEDS: guaiFENesin 600 MG TABCR PO SCH ×2 (08:27→21:52)
[2023-01-13] MEDS: FAMOTIDINE 20 MG TAB PO SCH ×2 (08:27→21:53)
[2023-01-13] MEDS: ROFLUMILAST 500 MCG TAB PO SCH (08:28)
[2023-01-13] MEDS: UMECLIDINIUM/VILANTEROL 62.5/25MCG 7 PUFFS/INHALER INH SCH (08:30)
[2023-01-13] MEDS: ENOXAPARIN INJ 40 MG/0.4 ML SYR SQ SCH (08:30)
--- NOTE | 2023-01-13 08:47 | Hospitalist Progress Note ---
Date of Service January 13, 2023 Assessment & Plan (1) Parainfluenza type 1 infection: Plan: Parainfluenza 1 infection/COPD exacerbation/tobacco use disorder- BASELINE O2: 3 LITERS AT REST. Acute on Chronic respiratory failure with hypoxia Stopped methylprednisolone as this could worsen patients with parainfluenza will also hold inhaled corticosteroids for the short term, last dose on 01/12, with rise of CRP will use azithromycin for anti imflamatory affects guaifenesin 1200 mg twice daily Azithromycin 500 mg IV daily Continue Roflumilast to 750 mcg daily Continue Trelegy Ellipta Albuterol HFA 2 puffs every 6 hours as needed Tessalon Perles 100 mg p.o. 3 times daily as needed cough Duonebs 4 times daily imaging with nodules, will continue to have follow (2) History of tobacco use: Plan: cessation councelling (3) Paroxysmal atrial tachycardia: Plan: typically not on rate controlling Meds or anticoagulation currently in sinus rhythm (4) Anxiety with depression: Plan: Anxiety with depression- Continue Lexapro 15 mg every morning Increase lorazepam 0.5 mg p.o. every 6 hours as needed, with first dose now Admission and Anticipated Discharge Date Admission Date: January 10, 2023 Subjective pt is tremulous and still short of breath, does not want to stop nebs, although feels that they are causing her tremor overall does not feel that she is ready to go home with her pulmonary status Physical Exam Physical Exam: lungs have overall poor air movement but no wheezes prolongued expiratory phase Results & Data Results & Data Vital Signs (Past 12 Hours) Vital Signs Temp Pulse Pulse Resp BP Pulse Ox O2 Del Method 01/13/23 07:04 80 19 96 Nasal Cannula 01/13/23 04:52 98.2 F 76 20 148/81 H 96 Nasal Cannula 01/13/23 00:44 92 H 01/12/23 23:28 Nasal Cannula 01/12/23 22:00 98.2 F 89 20 152/61 H 95 Nasal Cannula O2 Flow Rate 01/13/23 07:04 3 01/13/23 04:52 3 01/13/23 00:44 01/12/23 23:28 3 01/12/23 22:00 2 Laboratory Results reviewed cbc reviewed chemistry crp is elevated PG Care Time/CCT Total # of Minutes Spent Total Time Spent with Patient: Total time spent is greater than 50% in coordination of care (as documented) at patient's floor/unit and/or counseling patient: Coding Level of Care Code 02234 SUB INP/OBS CARE 2/35MIN Diagnoses Parainfluenza type 1 infection B34.8 History of tobacco use Z87.891 Paroxysmal atrial tachycardia I47.1 Anxiety with depression F41.8
[2023-01-13] MEDS ORDERED: AZITHROMYCIN 250 MG TAB PO ONE (16:51)
[2023-01-13] MEDS: ALBUT/IPRATROP 3MG/0.5MG NEB 3 ML VIAL INH PRN (22:46)
--- NOTE | 2023-01-14 06:01 | Electrocardiogram Report ---
Test Reason : Blood Pressure : / mmHG Vent. Rate : 081 BPM Atrial Rate : 081 BPM P-R Int : 148 ms QRS Dur : 080 ms QT Int : 388 ms P-R-T Axes : 069 064 062 degrees QTc Int : 450 ms Normal sinus rhythm Normal ECG When compared with ECG of 10-JAN-2023 20:03, Nonspecific ST and T wave abnormality has improved Confirmed by Marcello Rodríguez ([id number]) on 01/14/2023 6:01:00 AM Referred By: REFERRED SELF Confirmed By:Marcello Rodríguez
[2023-01-14] MEDS: ALBUT/IPRATROP 3MG/0.5MG NEB 3 ML VIAL INH SCH ×4 (07:33→19:08)
[2023-01-14] MEDS: FAMOTIDINE 20 MG TAB PO SCH ×2 (08:27→20:35)
[2023-01-14] MEDS: guaiFENesin 600 MG TABCR PO SCH ×2 (08:27→20:35)
[2023-01-14] MEDS: AZITHROMYCIN 250 MG TAB PO SCH (08:28)
[2023-01-14] MEDS: UMECLIDINIUM/VILANTEROL 62.5/25MCG 7 PUFFS/INHALER INH SCH (08:28)
[2023-01-14] MEDS: ROFLUMILAST 500 MCG TAB PO SCH (08:28)
[2023-01-14] MEDS: ENOXAPARIN INJ 40 MG/0.4 ML SYR SQ SCH (08:29)
[2023-01-14] MEDS: ESCITALOPRAM OXALATE 10 MG TAB PO SCH (08:29)
[2023-01-14] MEDS: LORazepam 0.5 MG TAB PO PRN (16:51)
--- NOTE | 2023-01-14 17:44 | Hospitalist Progress Note ---
Date of Service January 14, 2023 Assessment & Plan (1) Parainfluenza type 1 infection: Plan: Parainfluenza 1 infection/COPD exacerbation/tobacco use disorder- BASELINE O2: 3 LITERS AT REST. Acute on Chronic respiratory failure with hypoxia Stopped methylprednisolone as this could worsen patients with parainfluenza will also hold inhaled corticosteroids for the short term, last dose on 01/12, with rise of CRP will use azithromycin for anti imflamatory affects guaifenesin 1200 mg twice daily Azithromycin 500 mg IV daily Continue Roflumilast to 750 mcg daily Continue Trelegy Ellipta Albuterol HFA 2 puffs every 6 hours as needed Tessalon Perles 100 mg p.o. 3 times daily as needed cough Duonebs 4 times daily imaging with nodules, will continue to have follow try po morphine for air hunger start with low dose 5 mg bid in pm of 01/14/23 (2) History of tobacco use: Plan: cessation councelling (3) Paroxysmal atrial tachycardia: Plan: typically not on rate controlling Meds or anticoagulation currently in sinus rhythm (4) Anxiety with depression: Plan: Anxiety with depression- Continue Lexapro 15 mg every morning Increase lorazepam 0.5 mg p.o. every 6 hours as needed, with first dose now Plan pt feels TAPIA is still too unstable to safely return to home Admission and Anticipated Discharge Date Admission Date: January 10, 2023 Subjective pt is tremulous and still short of breath, does not want to stop nebs, although feels that they are causing her tremor overall does not feel that she is ready to go home with her pulmonary status, pt feels breathless ness is worse issue agreeable to try po morphine to see if works on air hunger Physical Exam Physical Exam: lungs have overall poor air movement but no wheezes prolongued expiratory phase Results & Data Results & Data Vital Signs (Past 12 Hours) Vital Signs Temp Pulse Pulse Resp BP BP Pulse Ox 01/14/23 16:56 73 01/14/23 15:56 98.4 F 81 15 132/71 94 01/14/23 14:22 87 18 96 01/14/23 12:13 98.2 F 79 16 151/84 H 95 01/14/23 07:00 72 01/14/23 10:29 83 18 94 01/14/23 08:33 09/29/23 07:59 97.7 F 83 16 130/79 96 01/14/23 07:33 88 18 94 O2 Del Method O2 Flow Rate 01/14/23 16:56 01/14/23 15:56 Nasal Cannula 3 01/14/23 14:22 Nasal Cannula 3 01/14/23 12:13 Nasal Cannula 3 01/14/23 07:00 01/14/23 10:29 Nasal Cannula 3 01/14/23 08:33 Nasal Cannula 01/14/23 07:59 Nebulizer 01/14/23 07:33 Nasal Cannula 3 PG Care Time/CCT Total # of Minutes Spent Total Time Spent with Patient: Total time spent is greater than 50% in coordination of care (as documented) at patient's floor/unit and/or counseling patient: Coding Level of Care Code 60171 SUB INP/OBS CARE 2/35MIN Diagnoses Parainfluenza type 1 infection B34.8 History of tobacco use Z87.891 Paroxysmal atrial tachycardia I47.1 Anxiety with depression F41.8
[2023-01-14] MEDS: BENZONATATE 100 MG CAPSULE PO PRN (20:34)
[2023-01-14] MEDS: MoRPHine SULFATE 10 MG/0.5 ML UDP PO SCH (20:36)
[2023-01-15] MEDS: ALBUT/IPRATROP 3MG/0.5MG NEB 3 ML VIAL INH PRN (04:01)
[2023-01-15] MEDS: BENZONATATE 100 MG CAPSULE PO PRN (04:03)
[2023-01-15] MEDS: ACETAMINOPHEN 325 MG TAB PO PRN ×3 (06:37→21:57)
[2023-01-15] MEDS: ALBUT/IPRATROP 3MG/0.5MG NEB 3 ML VIAL INH SCH ×4 (07:10→19:27)
[2023-01-15] MEDS: FAMOTIDINE 20 MG TAB PO SCH ×2 (08:19→20:41)
[2023-01-15] MEDS: UMECLIDINIUM/VILANTEROL 62.5/25MCG 7 PUFFS/INHALER INH SCH (08:19)
[2023-01-15] MEDS: ENOXAPARIN INJ 40 MG/0.4 ML SYR SQ SCH (08:22)
[2023-01-15] MEDS: ESCITALOPRAM OXALATE 10 MG TAB PO SCH (08:23)
[2023-01-15] MEDS: ROFLUMILAST 500 MCG TAB PO SCH (08:23)
[2023-01-15] MEDS: AZITHROMYCIN 250 MG TAB PO SCH (08:23)
[2023-01-15] MEDS: guaiFENesin 600 MG TABCR PO SCH ×2 (08:24→21:57)
[2023-01-15] MEDS: MoRPHine SULFATE 10 MG/0.5 ML UDP PO SCH ×3 (09:31→20:42)
--- NOTE | 2023-01-15 13:49 | Hospitalist Progress Note ---
Date of Service January 15, 2023 Assessment & Plan (1) Parainfluenza type 1 infection: Plan: Parainfluenza 1 infection/COPD exacerbation/tobacco use disorder- BASELINE O2: 3 LITERS AT REST. Acute on Chronic respiratory failure with hypoxia Stopped methylprednisolone as this could worsen patients with parainfluenza use azithromycin for anti inflammatory affects guaifenesin 1200 mg twice daily Azithromycin 500 mg IV daily Continue Roflumilast to 750 mcg daily Continue Trelegy Ellipta Albuterol HFA 2 puffs every 6 hours as needed Tessalon Perles 100 mg p.o. 3 times daily as needed cough Duonebs 4 times daily imaging with nodules, will continue to have follow po morphine helped for sensation of air hunger start, increase dose to tid and follow (2) History of tobacco use: Plan: cessation councelling (3) Paroxysmal atrial tachycardia: Plan: typically not on rate controlling Meds or anticoagulation currently in sinus rhythm (4) Anxiety with depression: Plan: Anxiety with depression- Continue Lexapro 15 mg every morning Increase lorazepam 0.5 mg p.o. every 6 hours as needed, with first dose now Plan pt feels TAPIA is still too unstable to safely return to home Admission and Anticipated Discharge Date Admission Date: January 10, 2023 Subjective pt looks much improved feels better has no family at home to care for her today pt feels breathless ness is improved after po morphine Physical Exam Physical Exam: lungs have overall poor air movement continues without wheezes prolonged expiratory phase Results & Data Results & Data Vital Signs (Past 12 Hours) Vital Signs Temp Pulse Pulse Resp BP BP Pulse Ox 01/15/23 11:24 97.7 F 73 16 131/75 94 01/15/23 11:12 73 18 95 01/15/23 08:13 01/15/23 07:43 97.5 F L 66 16 122/73 95 01/15/23 05:59 72 01/15/23 07:10 66 18 96 01/15/23 05:24 98.1 F 71 20 118/71 92 01/15/23 04:01 80 20 93 O2 Del Method O2 Flow Rate 01/15/23 11:24 Nasal Cannula 2.5 01/15/23 11:12 Nasal Cannula 3 01/15/23 08:13 Nasal Cannula 3 01/15/23 07:43 Room Air 01/15/23 05:59 01/15/23 07:10 Nasal Cannula 3 01/15/23 05:24 Nasal Cannula 3 01/15/23 04:01 Nasal Cannula 3 PG Care Time/CCT Total # of Minutes Spent Total Time Spent with Patient: Total time spent is greater than 50% in coordination of care (as documented) at patient's floor/unit and/or counseling patient: Coding Level of Care Code 86561 SUB INP/OBS CARE 2/35MIN Diagnoses Parainfluenza type 1 infection B34.8 History of tobacco use Z87.891 Paroxysmal atrial tachycardia I47.1 Anxiety with depression F41.8
[2023-01-16] MEDS: ACETAMINOPHEN 325 MG TAB PO PRN ×2 (05:33→10:55)
[2023-01-16] MEDS: ALBUT/IPRATROP 3MG/0.5MG NEB 3 ML VIAL INH SCH ×4 (07:13→20:06)
[2023-01-16] MEDS: ENOXAPARIN INJ 40 MG/0.4 ML SYR SQ SCH (08:48)
[2023-01-16] MEDS: UMECLIDINIUM/VILANTEROL 62.5/25MCG 7 PUFFS/INHALER INH SCH (08:48)
[2023-01-16] MEDS: ESCITALOPRAM OXALATE 10 MG TAB PO SCH (08:49)
[2023-01-16] MEDS: guaiFENesin 600 MG TABCR PO SCH ×2 (08:49→19:57)
[2023-01-16] MEDS: ROFLUMILAST 500 MCG TAB PO SCH (08:50)
[2023-01-16] MEDS: AZITHROMYCIN 250 MG TAB PO SCH (08:50)
[2023-01-16] MEDS: FAMOTIDINE 20 MG TAB PO SCH ×2 (08:51→19:57)
[2023-01-16] MEDS: MoRPHine SULFATE 10 MG/0.5 ML UDP PO SCH ×3 (08:54→20:14)
[2023-01-16] MEDS: LORazepam 0.5 MG TAB PO PRN (10:53)
[2023-01-16] MEDS ORDERED: LIDOCAINE 5% 1 PATCH TD STA (13:42)
[2023-01-16] MEDS ORDERED: DEXAMETHASONE SOD INJ 4 MG/ML VIAL IV STA (13:44)
[2023-01-16] MEDS ORDERED: traMADol HCL 50 MG TABLET PO PRN (13:44)
--- NOTE | 2023-01-16 13:48 | Hospitalist Progress Note ---
Date of Service January 16, 2023 Assessment & Plan (1) Parainfluenza type 1 infection: Plan: Parainfluenza 1 infection/COPD exacerbation/tobacco use disorder- BASELINE O2: 3 LITERS AT REST. Acute on Chronic respiratory failure with hypoxia Stopped methylprednisolone as this could worsen patients with parainfluenza use azithromycin for anti inflammatory affects guaifenesin 1200 mg twice daily Azithromycin 500 mg IV daily Continue Roflumilast to 750 mcg daily Continue Trelegy Ellipta Albuterol HFA 2 puffs every 6 hours as needed Tessalon Perles 100 mg p.o. 3 times daily as needed cough Duonebs 4 times daily imaging with nodules, will continue to have follow po morphine helped for sensation of air hunger start, increase dose to tid and follow (2) History of tobacco use: Plan: cessation councelling (3) Paroxysmal atrial tachycardia: Plan: typically not on rate controlling Meds or anticoagulation currently in sinus rhythm (4) Anxiety with depression: Plan: Anxiety with depression- Continue Lexapro 15 mg every morning lorazepam 0.5 mg p.o. every 6 hours as needed, (5) Lower back pain: Plan: patient with low back pain which is mechanical in nature will check x-ray for compression fracture. We will add 1 dose dexamethasone, scheduled Tylenol Lidoderm patch and as needed Ultram for pain control Plan pt feels TAPIA is still too unstable to safely return to home Admission and Anticipated Discharge Date Admission Date: January 10, 2023 Subjective pt looks much improved feels better patient complains of focal mechanical low back pain today pt feels breathless ness is improved after po morphine dose increased on 01/16/2023 Physical Exam Physical Exam: lungs have overall poor air movement continues without wheezes prolonged expiratory phase patient has point tenderness to the lumbar spine also in the sacroiliac joint area. Results & Data Results & Data Vital Signs (Past 12 Hours) Vital Signs Temp Pulse Resp BP Pulse Ox O2 Del Method O2 Flow Rate 01/16/23 11:00 97.9 F 72 18 125/73 95 Room Air 01/16/23 11:21 80 18 95 Nasal Cannula 3 01/16/23 08:00 97.7 F 64 18 130/73 93 Nasal Cannula 3 01/16/23 07:13 64 18 97 Nasal Cannula 3 01/16/23 02:51 98.1 F 73 18 109/65 96 Nasal Cannula PG Care Time/CCT Total # of Minutes Spent Total Time Spent with Patient: Total time spent is greater than 50% in coordination of care (as documented) at patient's floor/unit and/or counseling patient: Coding Level of Care Code 23629 SUB INP/OBS CARE 2/35MIN Diagnoses Parainfluenza type 1 infection B34.8 History of tobacco use Z87.891 Paroxysmal atrial tachycardia I47.1 Anxiety with depression F41.8 Lower back pain M54.50
[2023-01-16] MEDS ORDERED: dexAMETHasone 4 MG in SYRINGE 0 ML IV ONE (14:00)
--- NOTE | 2023-01-16 14:24 | XRay Report ---
XR lumbar spine 2-3V CLINICAL HISTORY: low back pain eval for comp fx COMPARISON STUDY: Lumbar spine radiograph October 07, 2022. FINDINGS: No acute lumbar spine fracture is noted. Old mild superior endplate compression fracture of L1 is unchanged since radiographs of October 07, 2022. Disc spaces are preserved. Mild multilevel endpl ate osteophytosis is noted. There is mild multilevel facet arthrosis . IMPRESSION: 1. No acute lumbar spine fracture. 2. No change in an old mild L1 compression fracture since radiographs of October 07, 2022. 3. Mild multilevel degenerative changes within the lumbar spine. ACT 112: Negative or not required by law. Electronically signed by: Celestine Armendariz M.D. 01/16/2023 2:23 PM
[2023-01-16] MEDS: ACETAMINOPHEN 500 MG TAB PO SCH ×2 (15:09→19:57)
[2023-01-17] MEDS: ALBUT/IPRATROP 3MG/0.5MG NEB 3 ML VIAL INH SCH ×4 (07:24→19:26)
[2023-01-17] MEDS: ESCITALOPRAM OXALATE 10 MG TAB PO SCH (08:55)
[2023-01-17] MEDS: AZITHROMYCIN 250 MG TAB PO SCH (08:55)
[2023-01-17] MEDS: guaiFENesin 600 MG TABCR PO SCH ×2 (08:55→20:29)
[2023-01-17] MEDS: FAMOTIDINE 20 MG TAB PO SCH ×2 (08:55→20:30)
[2023-01-17] MEDS: ACETAMINOPHEN 500 MG TAB PO SCH ×3 (08:55→20:30)
[2023-01-17] MEDS: ENOXAPARIN INJ 40 MG/0.4 ML SYR SQ SCH (08:56)
[2023-01-17] MEDS: LIDOCAINE 5% 1 PATCH TD SCH (08:56)
[2023-01-17] MEDS: ROFLUMILAST 500 MCG TAB PO SCH (09:45)
[2023-01-17] MEDS: MoRPHine SULFATE 10 MG/0.5 ML UDP PO SCH ×2 (09:46→20:29)
[2023-01-17] MEDS: UMECLIDINIUM/VILANTEROL 62.5/25MCG 7 PUFFS/INHALER INH SCH (09:47)
[2023-01-17] MEDS: LORazepam 0.5 MG TAB PO PRN (12:26)
--- NOTE | 2023-01-17 17:50 | Hospitalist Progress Note ---
Date of Service January 17, 2023 Assessment & Plan (1) Parainfluenza type 1 infection: Plan: Parainfluenza 1 infection/COPD exacerbation/tobacco use disorder- BASELINE O2: 3 LITERS AT REST. Acute on Chronic respiratory failure with hypoxia azithromycin for anti inflammatory affects guaifenesin 1200 mg twice daily Azithromycin 500 mg IV daily Continue Roflumilast to 750 mcg daily Continue Trelegy Ellipta Albuterol HFA 2 puffs every 6 hours as needed Tessalon Perles 100 mg p.o. 3 times daily as needed cough Duonebs 4 times daily imaging with nodules, will continue to have follow po morphine helped for sensation of air hunger start, return to bid (2) History of tobacco use: Plan: cessation councelling (3) Paroxysmal atrial tachycardia: Plan: typically not on rate controlling Meds or anticoagulation currently in sinus rhythm (4) Anxiety with depression: Plan: Anxiety with depression- Continue Lexapro 15 mg every morning lorazepam 0.5 mg p.o. every 6 hours as needed, (5) Lower back pain: Plan: patient with low back pain which is mechanical XRay with old compression fracture. scheduled Tylenol Lidoderm patch and as needed Ultram for pain control consider pain management as outpt Plan pt feels TAPIA is still too unstable to safely return to home Admission and Anticipated Discharge Date Admission Date: January 10, 2023 Subjective pt looks much improved feels better patient complains of focal mechanical low back pain today, this is chronic old lumbar compression fracture some nausea will back of po morphine breathless ness is improved after po morphine will continue Physical Exam Physical Exam: lungs have overall poor air movement continues without wheezes prolonged expiratory phase patient has point tenderness to the lumbar spine this seems improved objectively Results & Data Results & Data Vital Signs (Past 12 Hours) Vital Signs Temp Pulse Pulse Resp BP BP Pulse Ox 01/17/23 16:34 69 01/17/23 14:46 98.1 F 68 16 134/78 96 01/17/23 14:13 74 18 96 01/17/23 12:43 98.2 F 72 16 136/73 96 01/17/23 12:00 67 01/17/23 11:17 01/17/23 10:25 72 18 97 01/17/23 07:47 98.1 F 67 16 146/82 H 94 01/17/23 07:24 68 18 98 O2 Del Method O2 Flow Rate 01/17/23 16:34 01/17/23 14:46 Nasal Cannula 3 01/17/23 14:13 Nasal Cannula 3 01/17/23 12:43 Room Air 01/17/23 12:00 01/17/23 11:17 Nasal Cannula 2 01/17/23 10:25 Nasal Cannula 3 01/17/23 07:47 Nasal Cannula 3 01/17/23 07:24 Nasal Cannula 3 PG Care Time/CCT Total # of Minutes Spent Total Time Spent with Patient: Total time spent is greater than 50% in coordination of care (as documented) at patient's floor/unit and/or counseling patient: Coding Level of Care Code 60983 SUB INP/OBS CARE 235MIN Diagnoses Parainfluenza type 1 infection B34.8 History of tobacco use Z87.891 Paroxysmal atrial tachycardia I47.1 Anxiety with depression F41.8 Lower back pain M54.50
[2023-01-18] MEDS: ALBUT/IPRATROP 3MG/0.5MG NEB 3 ML VIAL INH SCH ×2 (07:20→11:16)
[2023-01-18] MEDS: FAMOTIDINE 20 MG TAB PO SCH (09:02)
[2023-01-18] MEDS: guaiFENesin 600 MG TABCR PO SCH (09:02)
[2023-01-18] MEDS: ACETAMINOPHEN 500 MG TAB PO SCH (09:02)
[2023-01-18] MEDS: ENOXAPARIN INJ 40 MG/0.4 ML SYR SQ SCH (09:03)
[2023-01-18] MEDS: ESCITALOPRAM OXALATE 10 MG TAB PO SCH (09:03)
[2023-01-18] MEDS: UMECLIDINIUM/VILANTEROL 62.5/25MCG 7 PUFFS/INHALER INH SCH (09:03)
[2023-01-18] MEDS: AZITHROMYCIN 250 MG TAB PO SCH (09:04)
[2023-01-18] MEDS: ROFLUMILAST 500 MCG TAB PO SCH (09:04)
[2023-01-18] MEDS: LIDOCAINE 5% 1 PATCH TD SCH (09:05)
[2023-01-18] MEDS: MoRPHine SULFATE 10 MG/0.5 ML UDP PO SCH (09:11)
--- NOTE | 2023-01-18 16:41 | Discharge Summary ---
Date of Service January 18, 2023 Admission HPI Per Admitting Provider The patient is a 67-year-old female with a past medical history including tobacco use, paroxysmal atrial tachycardia, chronic respiratory failure with hypoxia, COPD, GERD, acute pericardial effusion, multiple pulmonary nodules, anxiety with depression and obstructive sleep apnea. The patient presents to the emergency department with worsening shortness of breath, chest congestion and cough over the past week and development of jitteriness and tremors today. She denies any recent travels or sick exposures. She has been taking all medications and inhalers as directed. Significant laboratories: Viral PCR positive for parainfluenza 1 From the emergency department the patient received the following: Normal saline 500 mL, guaifenesin 1200 mg p.o., methylprednisolone 125 mg IV, and a DuoNeb Principal Diagnosis parainfluenza respiratory infection acute on chronic respiratory failure Discharge Exam pt is stable for discharge with improved reparatory mechanics Discharge Data Allergies Allergy/AdvReac Type Severity Reaction Status Date / Time aspirin AdvReac Intermediate GI SYMPTOMS Verified 01/10/23 22:32 Consultations 01/10/23 23:14 ED Decision to Admit Stat Ordered Studies 01/10/23 20:50 CT angio chest PE protocol Stat Hospital Course (1) Parainfluenza type 1 infection: Parainfluenza 1 infection/COPD exacerbation/tobacco use disorder- BASELINE O2: 3 LITERS AT REST. Acute on Chronic respiratory failure with hypoxia azithromycin treated while inpatient DuoNeb 4 times daily and as needed Roflumilast 500 mcg a day Trelegy Ellipta 1 inhalation a day Continuing CPAP machine and supplemental oxygen imaging with nodules, will continue to have follow up po morphine helped for sensation of air hunger will discharge but need discussion with pcp to continue (2) History of tobacco use: cessation councelling patient with nodules will need follow-up (3) Paroxysmal atrial tachycardia: typically not on rate controlling Meds or anticoagulation currently in sinus rhythm (4) Anxiety with depression: Anxiety with depression- Continue Lexapro 15 mg every morning lorazepam 0.5 mg p.o. every 6 hours as needed, (5) Lower back pain: patient with low back pain which is mechanical XRay with old compression fracture. scheduled Tylenol Lidoderm patch consider pain management as outpt Total Time Total Time Spent Total Time Spent (In Minutes): It required greater than 30 minutes to prepare this patient for discharge Discharge Plan Discharge Items Patient Disposition: Home - Self-Care Reason For Visit: ACUTE ON CHRONIC RESP FAIL, PARAINFLUENZA 1 INFECT Discharge Diagnosis: parainfluenza respiratory infection acute on chronic respiratory failure Activity: Resume your previous activity Non-emergency contact: Primary Care Provider Call non-emergency contact if: your symptoms worsen Follow-up/Referrals: Maya Weller DO [Primary Care Provider] - 01/27/23 2:45 am Diet: Regular Addtl Attending Provider Instructions: please consider referral for pain management for your chronic low back pain please discuss the use of morphine to reduce air hunger in your respiratory failure due to severe end stage COPD Pending Studies at Discharge: No Stand-Alone Forms: My Forgame, Smoking Cessation Medications and DC Order Prescriptions: New morphine concentrate 100 mg/5 mL (20 mg/mL) Solution 10 mg PO BID Qty: 30 0RF Rx Instructions: for air hunger with end stage COPD lidocaine 5 % Adhesive Patch,Medicated 1 patch transdermal QAM Qty: 10 0RF Continued roflumilast 500 mcg tablet 500 mcg PO DAILY Qty: 30 2RF Rx Instructions: To be started after 28 day trial of 250 mcg dose albuterol sulfate [ProAir HFA] 90 mcg/actuation HFA aerosol inhaler 2 puff Inhalation Q4 PRN (Reason: Shortness Of Breath Or Wheezing) Qty: 8.5 3RF ipratropium-albuterol 0.5 mg-3 mg(2.5 mg base)/3 mL solution for nebulization 3 ml INH QID PRN (Reason: Shortness Of Breath) Qty: 360 5RF (DME) CPAP Machine Misc See Rx Instructions .MEDSUPPLY Qty: 1 0RF Rx Instructions: Auto-titration CPAP with pressure range between 5 cm H2O and 15 cm H2O with humidification. Lifetime need. (DME) CPAP Supplies Misc See Rx Instructions .MEDSUPPLY Qty: 1 0RF Rx Instructions: Refitting of the mask. G47.33 (DME) Portable Oxygen Misc See Rx Instructions .Route Qty: 1 0RF Rx Instructions: portable oxygen concentrator- 3LPM on exertion via n/c. SILVIA:99 lorazepam 0.5 mg tablet 0.5 mg PO Q8H PRN (Reason: anxiety) Qty: 7 0RF escitalopram oxalate [Lexapro] 10 mg tablet 15 mg PO QAM Trelegy Ellipta 100-62.5-25 mcg blister with device 1 inh inhalation DAILY Qty: 28 0RF ipratropium-albuterol 0.5 mg-3 mg(2.5 mg base)/3 mL Solution For Nebulization 3 ml INHALATION QID Discontinued roflumilast 250 mcg tablet 250 mcg PO DAILY 28 Days Qty: 28 0RF Rx Instructions: Take for 28 days and if tolerated, increase dosage to 500mCg daily (see other Rx) prednisone 20 mg Tablet 40 mg PO .DAILY [id number] Rx Instructions: BEGIN 01/11/23 : TAKE 40MG DAILY X 10 DAYS. Discharge Orders: Discharge Order (Routine); Ordered 01/18/23 Ordered By: Julio Bernard Admission Data Admit Date/Time: 01/10/23 23:24 Attending Provider: Julio Bernard Admit Provider: Blaze Smith Primary Care Provider: Maya Weller Other Providers: Blaze Smith Other Interventions: Discharge Summary Assessment (RN) Last Done: 01/18/23 11:55 Coding Level of Care Code 40403 INP/OBS DISCH >30 MIN Diagnoses Parainfluenza type 1 infection B34.8 History of tobacco use Z87.891 Paroxysmal atrial tachycardia I47.1 Anxiety with depression F41.8 Lower back pain M54.50
[2023-01-19] MEDS ORDERED: ROFLUMILAST 500 MCG TAB PO SCH (09:00)
== END 2023-01-18 13:45 | disposition home or self-care (01) | DRG 190 ==
LOC: ED 19:21 → EDINP 23:24 → SUATTDRO 23:24 → 2W 01-11 01:13

== ENCOUNTER 2023-03-26 16:33 | Inpatient (IN) ==
--- OUTSIDE RECORDS SUMMARY | 2023-03-26 16:36 | External Medical Summary | Summary of Care ---
Author Name Unknown Organization [facility] Address [address] [place] [address] Phone [phone] Care Team Providers Care Sales Vice President Name Role Phone Armando Carter MD Primary Care Provider Reason for Referral * Evaluate & Treat - Unlimited Visits (Within 10 days (routine)) - Pending Review Specialty Diagnoses / Procedures Referred By Contac t Referred To Contact PULMONARY REHAB / Pulmonary Diagnoses Lung transplant planned Corry Boland MD [address] [facility] [address] [place] [address] Referral ID Status Reason Start Date Expiration Date Visits Requested Visits Authorized [id number] Pending Review Specialty Services Required 03/21/[phone] Question Answer Referral Priority Within 10 days (routine) Where should this appointment be scheduled? Lauren Comments Lung transplant planned Encounter Details Date Type Department Care Team (Late st Contact Info) Description 03/21/2023 Orders Only Access [facility], [facility] [address] *DO NOT REMOVE THIS DEPARTMENT* PILY [facility] [id number] Request, External Referral Lung transplant planned* Allergies Active Allergy Reactions Criticality Noted Date Comments Salicylates Nausea/vomiting 06/02/2010 Prednisone 12/21/2012 Started shaking all over increased, her blood pressure, had to go to the ER documented as of this encounter (statuses as of 03/21/2023) Medications Medication Sig Dispensed Refills Start Date End Date Status SPIRIVA HANDIHALER 18 MCG IN CAPSIndications:COPD, moderate (HCC) Inhale contents of 1 capsule Daily. For inhaler only, do not swallow. 30 Cap 11 02/19/2013 Active OMEPRAZOLE 20 MG PO TBEC one pill each day 0 Active PROAIR HFA 108 (90 BASE) MCG/ACT inhaler USE 2 PUFFS BY MOUTH FOUR TIMES A DAY NEEDED 8.5 g 5 02/17/2015 Active documented as of this encounter (statuses as of 03/21/2023) Active Problems Problem Noted Date Diagnosed Date ADVANCE DIRECTIVE INFORMATION 02/22/2006 Overview: Booklet given to pt today. Dysplasia of cervix 01/13/2005 Overview: hyster 1992 for dysplasia ICD-10 update of inactive term OTHER SPECIFIED GASTRITIS; WITHOUT MENTION OF HE MORRHAGE 01/13/2005 documented as of this encounter (statuses as of 03/21/2023) Resolved Problems Problem Noted Date Diagnosed Date Resolved Date Tobacco use disorder 01/13/2005 013 documented as of this encounter (statuses as of 03/21/2023) Immunizations Name Administration Dates Next Due Hepatitis B, 20+ yrs 08/29/2012,03/31/2012,03/01 Pneumococcal Polysaccharide PPV23 (Pneumovax) 02/09/2013(Deferred: Patient Refused) Seasonal Influenza, Split, I IV3, With Preserve, Inj 02/09/2013(Deferred: Patient Refused) TDAP (age 11 and older)(Adacel) 09/27/2008 documented as of this encounter Social History Tobacco Use Types Packs/Day Years Used Date Smoking Tobacco: Former Cigarettes 0.3 25 Q uit: 02/03/2013 Smokeless Tobacco: Never Alcohol Use Standard Drinks/Week Comments No 0 (1 standard drink = 0.6 oz pur e alcohol) occ Sex and Gender Information Value Date Recorded Sex Assigned at Not on file Gender Identity Not on file Sexual Orientation Not on file documented as of this encounter Miscellaneous Notes * Addendum Note - Anna Domínguez OSA - 03/21/2023 2:01 PM ESTAddended by: ANNA DOMÍNGUEZ on: 03/21/2023 02:01 PM Modules accepted: Orders documented in this encounter Plan of Treatment Scheduled Referrals Name Type Priority Associated Diagnoses Orde r Schedule PULMONARY REHAB REFERRAL OP Referral Within 10 days (routine) Lung transplant planned Ordered: 03/21/2023 Health Maintenance Due Date Last Done Comments COVID-19 Vaccine (#1) 03/26/1956 Depression Screening 1966 Hepatitis C Screening 1972 Cologuard 09/25/1999 Colonoscopy 09/25/1999 Colorectal Cancer Screening 09/25/1999 Fecal Occult Blood Test 09/25/1999 Sigmoidoscopy 09/25/1999 Zoster Vaccines (1 of 2) 2004 Mammogram 04/07/2012 04/07/2011, 03/30/2011, 02/17/2005 Lipid Panel 02/19/2018 02/19/2013, 12/18/2004 DTaP,Tdap,and Td Vaccines (2 - Td or Tdap) 09/27/2018 09/27/2008 DXA Scan 09/25/2019 Pneumococcal Vaccine: 65+ Years (2 - PCV) 09/25/2019 04/19/2017 Influenza Vaccine (FLU shot) (#1) 2022 Hepatitis B Completed 08/29/2012, 03/31/2012, 03/01/2012 GARDASIL-HPV IMMUNIZATION SERIES Aged Out No longer eligible b ased on patient's age to complete this topic MENINGOCOCCAL (MENACTRA/MENVEO) Aged Out No longer eligible b ased on patient's age to complete this topic documented as of this encounter Medical Devices Not on filedocumented as of this encounter Visit Diagnoses Diagnosis Lung transplant planned- Primary documented in this encounter Care Teams Sales Vice President Relationship Specialty Start Date End Date Armando Carter MD PCP - General Family Medicine 10/03/20 documented as of this encounter
--- OUTSIDE RECORDS SUMMARY | 2023-03-26 16:36 | External Medical Summary | Summary of Care ---
Author Name Unknown Organization [facility] Address [address] [place] [facility] [place] [address] Phone [phone] Care Team Providers Care T[employer] Vulcanizer Name Role Phone Armando Carter MD Primary Care Provider Reason for Referral * Evaluate & Treat - Unlimited Visits (Within 10 days (routine)) - Pending Review Specialty Diagnoses / Procedures Referred By Contmariposa t Referred To Contact PULMONARY REHAB / Pulmonary Diagnoses Lung transplant planned Vicente Sherwood MD [address] [facility] [address] [place] [address] Referral ID Status Reason Start Date Expiration Date Visits Requested Visits Authorized [id number] Pending Review Specialty Services Required 03/21/[phone] Question Answer Referral Priority Within 10 days (routine) Where should this appointment be scheduled? Lauren Comments Lung transplant planned Encounter Details Date Type Department Care Team (Late st Contact Info) Description 03/21/2023 Orders Only [facility] [address] [facility] Ext *DO NOT REMOVE THIS DEPARTMENT* PILY [...] today. Dysplasia of cervix 01/13/2005 Overview: hyster 1991 for dysplasia ICD-10 update of inactive term [...] on file documented as of this encounter Plan of Treatment Scheduled Referrals [...] Primary documented in this encounter Care Teams Tire Vulcanizer Relationship Specialty Start Date End Date Armando Carter MD PCP - General Family Medicine 10/03/20 documented as of this encounter
--- OUTSIDE RECORDS SUMMARY | 2023-03-26 16:36 | External Medical Summary | Continuity of Care Document ---
Author Name Unknown Organization [facility] [address] [place] [address] [place] [id number] Care Team Providers Care Data Center Solutions Architect Name Role Phone Janee Maya Primary Care Physician [phone] [facility] [id number] Date(s): 03/18/23 - 03/18/23 [facility] [address] [facility] [address] [facility] [address] [place] [phone] Encounter Diagnosis Body mass index [BMI] 27.0-27.9, adult(Discharge Diagnosis) - 03/18/23 Lung transplant planned(Discharge Diagnosis) - 03/18/23 Discharge Disposition: Home or Self Care Attending Physician: MD Kaela, Vicente Mayfield Allergies, Adverse Reactions, Alerts Substance Reaction Severity Status ASA (aspirin) upset stomach Active Assessment and Plan Extracted from: Title:Office Visit Note Author:MD Boland Natalia Date:03/18/23 1.Lung transplant planned Undifferentiated new problem with uncertain prognosis Goal:_Preparation labs/studies Data:unique tests ordered: _Hepatitis B titers, Quantiferon GOLD, Manometry 24-hr pH Plan: Patient with COPD requiring home oxygen comes for labs and studies in preparation for placement in transplant list (lung transplant). Sent orders for the above mentioned studies, as well as referrals for ID-transplant and respiratory rehabilitation. She was advised that, due to her colonoscopy and hysterectomy being done in 2 different medical groups, she should get into contact with them to ask for her record to be sent to [place] since she would need to sign a release form giving them permission to send over this information. She expressed understanding and agreed. Also sent shoulder XR due to her chronic pain that is not improved with OTC analgesics. Encouraged to use Tylenol and Gabapentin in the meantime for pain control. Immunizations Given and Recorded Vaccine Date Status Refusal Reason influenza virus vaccine, inactivated 12/30/22 Give n influenza virus vaccine, inactivated 12/28/21 Give n pneumococcal 20-valent conjugate vaccine 12/30/22 Given pneumococcal 13-valent vaccine 04/22/21 Given pneumococcal 23-valent vaccine 04/19/17 Given Medications albuterol 0.083% for nebulization Start: 12/09/22 16:16:00 EDT, 3 mL, NEB, q6h, Disp# 300 mL, Refills: 3, PRN: as needed for wheezing, Pharmacy: [facility] [id number] Start Date: 12/09/22 Stop Date: 12/04/23 Status: Ordered albuterol-ipratropium 2.5 mg-0.5 mg/3 mL inhalation solution Start: 12/09/22 16:16:00 EDT, See Instructions, Disp# 270 mL, Refills: 3, USE 1 VIAL IN NEBULIZER FOUR TIMES A DAY NEEDED SHORT OF BREATH ORWHEEZING, Pharmacy: [facility] [id number] Start Date: 12/09/22 Status: Ordered azelastine 205.5 mcg/inh (0.15%) nasal spray Start: 11/12/22 15:05:00 EDT, 1 spray, each nostril, bid, Disp# 1 each, Refills: 3, PRN: allergy symptoms, Pharmacy: [facility] [id number] Start Date: 11/12/22 Status: Ordered escitalopram 10 mg oral tablet Start: 12/09/22 15:56:00 EDT, 1.5 tab, PO, Daily, Disp# 45 tab, Refills: 5, Pharmacy: [facility] [id number] Start Date: 12/09/22 Stop Date: 06/07/23 Status: Ordered formoterol 20 mcg/2 mL inhalation solution 2 mL, inhaled, bid, USE 2 ML IN NEBULIZER EVERY 12 HOURS Start Date: 10/15/22 Status: Ordered gabapentin 100 mg oral capsule Start: 01/27/23 15:06:00 EDT, 1 cap, PO, tid, Disp# 90 cap, Take 1 tablet the first few days. Take 1 tablet in the morning and one at night the next 2-3 days. Thereafter take one pill in the morning,one at noon, and one at night., Note to Pharmacy... Start Date: 01/27/23 Stop Date: 02/26/23 Status: Ordered LORazepam 0.5 mg oral tablet Start: 12/23/21 17:04:00 EDT, 1 tab, PO, q8h, PRN: as needed for anxiety Start Date: 12/23/21 Status: Ordered ProAir HFA 90 mcg/inh inhalation aerosol Start: 12/09/22 16:14:00 EDT, 2 puff, inhaled, qid, Disp# 18 g, Refills: 3, or equivalent medicine at a cheaper palacios, PRN: as needed for wheezing and cough, Pharmacy: [id number] Start Date: 12/09/22 Stop Date: 12/04/23 Status: Ordered Tylenol 500 mg oral tablet Start: 11/12/22 14:35:00 EDT, 1 tab, PO, q6h, Disp# 50 tab, Refills: 0, PRN: as needed for pain, Pharmacy: [id number] Start Date: 11/12/22 Stop Date: 11/26/22 Status: Ordered Tylenol Arthritis Extended Release Start: 08/11/21 12:58:00 EDT Start Date: 08/11/21 Status: Ordered Mental Status 03/18/23 Barriers to Learning one year None evide nt Mandatory Health Literacy Documentation Yes Health Literacy 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 Barriers N ever Primary Language Kyrgyz Problem List Condition Confirmation Course Effective Dates Status H ealth Status Informant Anxiety Confirmed Active Ascending aorta dilation Confirmed Active Chronic respiratory failure with hypoxia and hypercapnia Confirmed Active Oxygen dependent Confirmed Active Dysplasia of cervix Confirmed Active Dysuria Confirmed Active Family history of ovarian cancer 1 Confirmed Active History of COVID-19 Confirmed Active Low back pain Confirmed Active Mitral regurgitation Confirmed Active Osteopenia Confirmed Active Knee pain, right Confirmed Active Emphysema of lung Confirmed Active COPD, very severe Confirmed Active Left shoulder pain Confirmed Active History of prior cigarette smoking Confirmed Active 1mother and sister Diagnosis Diagnosis Type Effective Dates Health Status Clinical Service Informant Body mass index [BMI] 27.0-27.9, adult Discharge Diagnosis 03/18/23 Non-Specified Lung transplant planned Discharge Diagnosis 03/18/23 Procedures Procedure Date Related Diagnosis Body Site Status Chest x-ray 1 10/06/[address] of chest 2 09/17/22 Completed Chest X-ray 3 08/08/22 Completed Chest x-ray 4 08/05/22 Completed Ultrasound scan of upper abdomen 5 07/22/22 Completed Chest x-ray 6 02/28/[address] of chest 7 02/04/22 Completed Chest x-ray 8 12/17/21 Completed Chest x-ray 9 11/07/21 Completed Chest X-ray 10 10/06/21 Completed Mammogram 11 08/20/21 Completed Plain X-ray of left scapula 12 08/04/21 Completed PFT - Pulmonary function tests 13 05/29/21 Completed Chest X-ray 14 05/03/[address] angiography of chest with contrast 15 05/03/21 Completed Chest X-ray 16 04/07/21 Completed Lung cancer screening 17 03/24/21 Completed Chest X-ray 18 10/20/[address] of head 19 09/23/[address] of paranasal sinuses 20 09/23/20 Completed CXR - Chest X-ray 21 09/23/20 Comp leted Bone density scan 22 09/18/20 Comp leted XR chest 2V PA/lateral 23 08/27/20 Completed Polysomnography 24 06/22/[address] 25 06/18/19 Completed Colonoscopy 26 06/04/19 Completed Mammogram 27 05/29/19 Completed Chest x-ray 28 03/04/19 Completed Hand X-ray 29 09/12/[address] 30 05/09/13 Completed CXR - Chest X-ray 31 03/15/[address] of thorax 32 02/23/13 Completed X-ray of thoracic spine 33 01/31/13 Completed Sinuses X-ray 34 12/22/12 Complete d Shoulder X-ray 35 11/01/12 Complet ed Mammogram 36 04/07/11 Completed REMOVAL OF THYROID 37 04/18/92 Com pleted Cataract surgery Complete d Chest exclusion X-ray 38 Completed Partial or subtotal hysterectomy 39 Completed Plain X-ray of lumbar spine 40 Completed 1IMPRESSION: 1. Advanced emphysema. 2. Bibasilar opacities may represent scarring/atelectasis. Correlate clinically for evidence of a superimposed pneumonitis. 3. Nodular foci seen on the recent chest CT are not visualized by x-ray. 2Impression: 1. Multiple new nodular opacities in the right upper and lower lobes, largest measuring up to 2 cm,likely infectious/inflammatory in etiology 2. New irregular nodular opacity with pleural tethering in the anterior right upper lobe, which measures 2.0 x 0.8 cm:; inflammatory versus neoplastic. Suggested PET/CT for further evaluation 3. Severe heterogeneous emphysema with bullous changes and diffuse airway inflammation. 4. Moderate coronary artery calcifications 5. Stable left thyroid nodule 3IMPRESSION: 1. No acute process of the chest. 2. Emphysema with chronic interstitial coarsening. 4Impression: 1. No acute processes of the chest 2. Emphysema with chronic interstitilal coarsning 5Impression: Hepatic steatosis. 6No acute chest disease. Stable emphysema 7Impression: 1. New nodular opacities measuring up to 1 cm within the right lower lobe, likely infectious/inflammatory. A follow-up CT chest study in 3 months is advised. 2. Severe emphysema, chronic bronchitis, and bronchiolitis. 3. Additional stable findings as described. 8Advanced emphysema with no acute cardiopulmonary abnormality identified. 91. Emphysematous change with no active disease in the chest. 2. The enlarging right lower lobe pulmonary nodule seen by CT on 05/03/2021 was not visualized by chest x-ray. This remains suspicious for neoplasm. Outpatient follow-up with pulmonology and repeat chest CT is recommended for further evaluation. 10impression: No acute cardiopulmonary findings, emphysema 11acr bi-rads catergory 1: negative, ultrasound acr bi-rads category 1: negative 121. No fractures within the left scapula 2. Mild left shoulder osteoarthritis 13FVC 2.57 L 89%, FEV1 1.04 L 46%, FEV1/FVC 41%, RV 151%, TLC 116%, RV/TLC 130%, DLCO 33%, DLCO/VA 36% 14Impression: No Acute cardiopulmonary disease 15Impression: 1 No CTA evidence for pulmonary embolus 2. Moderate to marked centrilobular emphysematous change and bullous disease. 3. Minimal pleural thickening at the right lung base with right basilar atelectasis. No confluent alveolar opacities within groundglass opacities 4. Mild coronary artery calcification. 5> Small hiatal hernia 16No acute pulmonary findings. Emphysema. 17Stable pulmonary nodules as above. Lung-RADS Assessment Category: 2, Nodules with a very low likelihood of becoming a clinically active cancer due to size or lack of growth Management Recommendation: Continue with annual screening using low-dose chest CT in 12 months 18No acute process within the chest. Emphysema 19No acute intracranial abnormality. 20The paranasal sinuses and mastoid air cells are clear. 21No acute cardiopulmonary findings. Emphysema. 22AP Spine L1-L4 T-score: -3.1 BMD: 0.809g/cm DualFemur Total Mean T--score: -2.2 BMD: 0.726g/cm 23Impression: No acute cardiopulmonary findings. Emphysema. 241. Mild obstructive sleep apnea 2. Periodic limb movement disorder 25impression 1. severe emphysema. Basilar predominant morphology could suggest underlying alpha-1 antitrypsin deficiency or primary ciliary dyskinesia 2. Significant interval decrease in peribronchovascular consolidation throughout the left lung. Stable background bronchiectasis and left basilar cicatrizing atelectasis 3. Resolution of prior nodular infiltrates in the right lung 4. Mild patchy groundglass infiltrates in the right lower lobe new from prior, possibly developing pneumonia or mild pneumonitis 5. Solid 3mm right upper lobe nodules stable from prio. No new nodule 6. Evidence of prior asbestos exposure whith chronic pleural disease 7. Possible liver failure 26Impression: Six 4 to 12 mm polyps in the rectum, in the transverse colon and in the ascending colon, removed iwth a hot snare. Resected and retrieved. Non- bleeding internal hemorrhoids Pathology: Colon, Ascending, Polypectomy: Tubular Adenoma. Colon, Transverse, Polypectomy: Fragments of Tubular Adenoma. Rectum, Polypectomy: Hyperplastic polyp 27no mammographic evidence of malignancy 28a new small patchy right middle lobe density. this likely represents a pneumonia. 1-2 month chest x-ray follow up is recommended to ensure resolution. 29No acute bony abnormality in left hand. 30Stable to somewhat improved evaluation as compared to the patients prior study. 5 mm nodular density is unchanged. The 11 mm nodular density now appears to be primarilly cystic and most likely represented a fluid filled cystic process on the prior exam. Emphysematous and interstitial changes described previously are stable and chronic. A 6 to 9 month follow up is suggested. 31AP portable study. no acute findings. 32No pulmonary embolus within the main or proximal segmental pulmonary arterial vasculatute. COPD 5 mm and 11 mm nodule in the right lower lobe. Recommend initial follow up CT thorax in 3 months. 33Mild degenerative changes. 34The paranasal sinuses are grossly patent. If there is further clinical concern for sinusitis. CT may be performed for further evaluation. 35Right shoulder Mild glenohumeral and acromioclacicular joint space narrowing. No acute bony abnormality. 36Right breast summation density. Recommend routine bilateral screening mammograms in one year. 37PARTIAL - following delivery of 4th child 38Emphysematous change with noactive disease in the chest. 39for heavy vaginal bleeding 40IMPRESSION: 1. No acute bony abnormality is seen involving the lumbar spine. 2. A mild chronic superior endplate compression deformity of L1 is similar to previous. 3. Osteopenia and spondylotic changes as above. Vital Signs Most recent to oldest [Reference Range]: 1 Height 161 cm (03/18/23 10:52 AM) Patient Weight 71.5 kg (03/18/23 10:52 AM) Body Mass Index 27.58 kg/m2 (03/18/23 10:52 AM) Temperature [36.5-37.9 DegC] 36.7 DegC (03/18/23 10:52 AM) Blood Pressure 148/70mmHg (03/18/23 10:52 AM) Cuff Pulse Pressure 78 mmHg (03/18/23 10:52 AM) BP Location # 1 Left Arm (03/18/23 10:52 AM) Social History Social History Type Response Tobacco Former smoker, Cigar ettes, 0.5 per day. 45 year(s). Started age 16 Years. Stopped age 61 Years. 1, 2, 3 Smoking Status Never smoked cigaret nazia Sex Female 1Quit years ago, few years tobacco free 2Quit! 3still smokes once a month. [facility] Outpt Note * MD Sherwood Joseph P: MODIFY MD Sherwood Joseph P: MODIFY Event Display: [facility] Outpt Note Authored Date: Chief Complaint Here for check up. Pt having left shoulder pain. Began a couple wks ago. History of Present Illness Masha is a 67 y/o female with history of COPD on home oxygen therapy (3 lpm at rest, 4-5 lpm when walking) who comes today for labs and testing she needs to get on the lung transplant list. She is not currently smoking. Following up with Dr. Napier in [place]. Only new complaint is of shoulder pain after she got hit on her left shoulder when doing an imagingstudy. No problems with ROM but does feel discomfort that is not well controlled with Tylenol extrastrength and sometimes affects her sleep. She reports she needs the following orders to be placed as part of her preparation to get on the transplant list: - Hepatitis B titers - Quantiferon GOLD test - Manometry 24-hr/pH - ID-transplant referral - Respiratory rehabilitation - Colonoscopy results (done in [facility]) - Verification to see if her cervix was removed in her hysterectomy (done in [facility]) No other concerns to address today. Physical Exam Vitals & Measurements T:36.7C BP:148/70 SpO2:98% HT:161cm WT:71.5kg WT:71.500kg(Dosing) BMI:27.58 PHQ2 Data(Data Documented on:03/18/2023 10:50) Emotional health assessment NEGATIVE General:_Alert and oriented, Afebrile, No acute distress, In a wheelchair, Oxygen with nasal cannula HEENT:_ Normocephalic, Nl gross hearing, moist oral mucosa _ Cardiovascular:_Normal rate, Regular rhythm, No murmur, No gallop. Respiratory:_Respirations are non-labored, Breath sounds are equal Neurologic:Normal sensory, Normal motor function, CN II-XII grossly intact. Integumentary:_Warm, Dry, [place]. Psych:Mood-affect congruence. Reports no SI/HI. Speech is of normal pace and content Assessment/Plan 1.Lung transplant planned Undifferentiated new problem with uncertain prognosis Goal:_Preparation labs/studies Data:unique tests ordered: _Hepatitis B titers, Quantiferon GOLD, Manometry 24-hr pH Plan: Patient with COPD requiring home oxygen comes for labs and studies in preparation for placement in transplant list (lung transplant). Sent orders for the above mentioned studies, as well as referrals for ID-transplant and respiratory rehabilitation. She was advised that, due to her colonoscopy and hysterectomy being done in 2 different medical groups, she should get into contact with them to ask for her record to be sent to [place] since she would need to sign a release form giving them permission to send over this information. She expressed understanding and agreed. Also sent shoulder XR due to her chronic pain that is not improved with OTC analgesics. Encouraged to use Tylenol and Gabapentin in the meantime for pain control. Attestation I saw patient and was present for the herzog portions of the history and physical. I agree with theresident's note and plan as documented in the resident's note. Testing for lung transplant and respiratory rehab. Return if symptoms or any worsening. Richy Sherwood Problem List/Past Medical History Ongoing Anxiety Ascending aorta dilation Chronic respiratory failure with hypoxia and hypercapnia COPD, very severe Dysplasia of cervix Dysuria Emphysema of lung Family history of ovarian cancer History of COVID-19 History of prior cigarette smoking Knee pain, right Left shoulder pain Low back pain Mitral regurgitation Osteopenia Oxygen dependent Historical Acute asthmatic bronchitis Acute bronchitis Acute URI Bacterial sinusitis Chest congestion Cough Other specified gastritis without mention of hemorrhage Tobacco user Tobacco user Tremulousness Trigger thumb Procedure/Surgical History Chest x-ray (10/06/2022)CT of chest (09/17/2022)Chest X-ray (08/08/2022)Chest x-ray (08/05/2022)Ultrasound scan of upper abdomen (07/22/2022)Chest x-ray (02/28/2022)CT of chest (02/04/2022)Chest x-ray (12/17/2021)Chest x-ray (11/07/2021)Chest X-ray (10/06/2021)Mammogram (08/20/2021)Plain X-ray of left scapula (08/04/2021)PFT - Pulmonary function tests (05/29/2021)CT angiography of chest with contrast (05/03/2021)Chest X-ray (05/03/2021)Chest X-ray(04/07/2021)Lung cancer screening (03/24/2021)Chest X-ray (10/20/2020)CXR - Chest X-ray ()CT of paranasal sinuses (09/23/2020)CT of head (09/23/2020)Bone density scan (09/18/2020)XR chest 2V PA/lateral (08/27/2020)Polysomnography (06/22/2019)Chest CT (06/18/2019) Colonoscopy (06/04/2019)Mammogram (05/29/2019)Chest x-ray (03/04/2019)Hand X-ray (09/12/2014)Chest CT (05/09/2013)CXR - Chest X- ray (03/15/2013)CT of thorax (02/23/2013)X-ray of thoracic spine (01/31/2013)Sinuses X-ray (12/22/2012)Shoulder X-ray (11/01/2012)Mammogram (04/07/2011)REMOVAL OF THYROID (04/18/1992)Partial or subtotal hysterectomyCataract surgeryPlain X-ray of lumbar spineChest exclusion X-ray Medications acetaminophen(Tylenol Arthritis Extended Release) acetaminophen(Tylenol 500 mg oral tablet), 500 mg= 1 tab, PO, q6h, PRN albuterol(albuterol 0.083% for nebulization), 2.5 mg= 3 mL, NEB, q6h, PRN, 3 refills albuterol(ProAir HFA 90 mcg/inh inhalation aerosol), 2 puff, inhaled, qid, PRN, 3 refills albuterol-ipratropium(albuterol-ipratropium 2.5 mg-0.5 mg/3 mL inhalation solution), See Instructions, 3 refills azelastine nasal(azelastine 205.5 mcg/inh (0.15%) nasal spray), 1 spray, each nostril, bid, PRN, 3 refills escitalopram(escitalopram 10 mg oral tablet), 15 mg= 1.5 tab, PO, Daily, 5 refills formoterol(formoterol 20 mcg/2 mL inhalation solution), 20 mcg= 2 mL, inhaled, bid gabapentin(gabapentin 100 mg oral capsule), 100 mg= 1 cap, PO, tid LORazepam(LORazepam 0.5 mg oral tablet), 0.5 mg= 1 tab, PO, q8h, PRN Allergies ASA (aspirin)upset stomach Social History Smoking Status Never smoked cigarettes Tobacco - Medium Risk Use:Former smoker Type:Cigarettes Tobacco use per day:0.5 Number of years:45 Started at age:16Years Stopped at age:61Years - Comments: Quit years ago, few years tobacco free Quit! still smokes once amonth. Family History Bleeding disorder: Unknown. Cancer: Unknown. Cancer of ovary: Mother and Sister. Heart disease: Unknown. Lung cancer..: Sister. Type II diabetes mellitus: Unknown. Health Status Family Member(s) Family Member(s) Relationship: Mother, Age: 54 Years, Cause: ovarian cancer Immunizations Vaccine Date Status influenza virus vaccine, inactivated 12/30/2022 Given pneumococcal 20-valent conjugate vaccine 12/30/2022 Given influenza virus vaccine, inactivated 12/28/2021 Given pneumococcal 13-valent vaccine 04/22/2021 Given pneumococcal 23-valent vaccine 04/19/2017 Given Recommendations Health Maintenance Pending(in the next year) Due Adult COVID-19 Vaccination due03/18/23Unknown Frequency Adult Tdap/Td Vaccine due03/18/23Unknown Frequency Falls Plan of Care due03/18/23Unknown Frequency Lipid Screening due03/18/23Unknown Frequency Medicare Annual Wellness Visit due03/18/23and every 1year Shingles Vaccine due03/18/23One-time only Due In Future Breast Cancer Screening not due until08/21/23and every 731day Adult Influenza Vaccine not due until10/17/23and every 1year Body Mass Index not due until03/17/24and every 1year Satisfied(in the past 1 year) Satisfied Adult Influenza Vaccine on12/30/22.Satisfied by MARLENI Fregoso Cassidy Body Mass Index on03/18/23.Satisfied by MARLENI Sanchez Paula Electronic Signature on File Electronically Reviewed/Signed by: Corry Boland MD Author Signature Dt/Tm:03/18/2023 01:31 PM Resident Department of Family Medicine Electronically Reviewed/Signed by: Vicente Sherwood MD Cosigner Signature Dt/Tm: 03/18/2023 05:11PM Department of Family Medicine [place] Patient Care team information Care Team Personnel Name: DO Weller Amanda Position: Resident Member Role: Primary Care Provider Address: Address: [facility] [address] [address] [place] Name: DO Moya Eric Position: Resident Member Role: Lifetime Relationship Address: Address: [address] [place] [id number] [place] Name: Sergey Prado MD, [facility] Position: Resident Member Role: Lifetime Relationship Address: Address: [address] [place] [id number] [place] Care Team Related Persons Name: ROMIRooseveltBENNETT Address: home No Address Provided
--- OUTSIDE RECORDS SUMMARY | 2023-03-26 16:36 | External Medical Summary | Summary of Care ---
Author Name Unknown Organization [facility] Address [address] [facility] [place] [address] Phone [phone] Care Team Providers Care Safety Sitter Name Role Phone Armando Carter MD Primary Care Provider Reason for Referral * Evaluate & Treat - Unlimited Visits (Within 10 days (routine)) - Pending Review Specialty Diagnoses / Procedures Referred By Contmariposa t Referred To Contact PULMONARY REHAB / Pulmonary Diagnoses Lung transplant planned Vicente Sherwood MD [address] [facility] [address] [place] [address] Referral ID Status Reason Start Date Expiration Date Visits Requested Visits Authorized [id number] Pending Review Specialty Services Required 03/21/[phone] Question Answer Referral Priority Within 10 days (routine) Where should this appointment be scheduled? Lauren Comments Lung transplant planned Encounter Details Date Type Department Care Team (Late st Contact Info) Description 03/21/2023 Orders Only Access Center, [facility] [address] [facility] Ext *DO NOT REMOVE THIS DEPARTMENT* [...] Primary documented in this encounter Care Teams Safety Sitter Relationship Specialty Start Date End Date Armando Carter MD PCP - General Family Medicine 10/03/20 documented as of this encounter
--- NOTE | 2023-03-26 17:04 | Emergency Department Note ---
Impression & Plan Acute and chronic respiratory failure, COPD exacerbation, Rhinovirus infection ED Provider Note NAME: AVIVA MIMS AGE: 67 SEX: F ARRIVES VIA: Walk-In INFORMANT: Patient ED PROVIDER(S): Adrian Zelaya MD CHIEF COMPLAINT: Shortness of breath PLAN: Disposition: Admit MEDICAL DECISION MAKING: The patient is a pleasant 67-year-old woman with past medical history of chronic respiratory failure with hypoxia on home oxygen, COPD, paroxysmal atrial tachycardia, anxiety, ALHAJI who presents to emergency department via walk-in for evaluation of worsening cough and congestion with productive sputum over the past week where she reports increasing shortness of breath that is not improving with her home medications. She also adds that for the past week or so she has been having increasing posterior left shoulder pain for which she had outpatient x-ray that suggested arthritis. She reports this pain is keeping her up at night. She reports having a low-grade fever of 101. She denies nausea or vomiting. She has not diarrhea. On my evaluation the patient is chronically ill-appearing, mildly dyspneic but no acute distress, afebrile with stable vital signs on 3 L nasal cannula. She appears clinically dry. She has wheezes and rhonchi bilateral lung wharton. EKG without overt acute ischemia. CXR negative for acute cardiopulmonary process per my personal preliminary review/interpretation. WBC 4.5K, nonspecific. H/H 7 department values. Platelets within normal limits. Chemistry without metabolic acidosis. Electrolytes and LFTs unremarkable. UA without evidence of infection. Respiratory viral panel/[employer] was positive for rhinovirus/enterovirus. CTA of the chest was performed and was negative for PE or acute aortic pathology. No consolidations though bronchial wall thickening has progressed there is a small pericardial effusion that is unchanged. Otherwise advanced emphysema and chronic interstitial thickening persist. Note is made of interval decrease in size of nodular density in the right lower lobe which favors resolving focus of inflammatory infectious change. Triage Nursing notes reviewed and agree them. Prior/external medical records reviewed Vital Signs: reviewed Differential diagnosis: Reactive airway disease, pneumonia, pneumothorax, COPD, CHF, infections, cardiac ischemia, pulmonary embolism, musculoskeletal, gastrointestinal, as well as other pathologies. ER treatment provided: See below. Diagnostics interpreted by me: ECG: Normal sinus rhythm, 85 bpm, no ectopy, nonspecific ST abnormality, no overt ST ovation or depression, QTc 433, QRS 72. Cardiac Monitoring: An order for continuous cardiac monitoring was placed and demonstrated Normal sinus rhythm, 85 bpm, no ectopy. Laboratory studies: See below Imaging studies: See below Consultation(s): Case was discussed with Dr. Smith, [facility] hospitalist, who will evaluate the patient for admission. HPI: TThe patient is a pleasant 67-year-old woman with past medical history of chronic respiratory failure with hypoxia on home oxygen, COPD, paroxysmal atrial tachycardia, anxiety, ALHAJI who presents to emergency department via walk-in for evaluation of worsening cough and congestion with productive sputum over the past week where she reports increasing shortness of breath that is not improving with her home medications. She also adds that for the past week or so she has been having increasing posterior left shoulder pain for which she had outpatient x-ray that suggested arthritis. She reports this pain is keeping her up at night. She reports having a low-grade fever of 101. She denies nausea or vomiting. She has not diarrhea. ROS: See above HPI for pertinent positives & negatives. A total of 10 systems reviewed and were otherwise negative. VITALS:See Below PHYSICAL EXAMINATION: GENERAL: Awake, alert, chronically ill appearing, mildly dyspneic but no acute distress. HENT: Normocephalic, atraumatic. Oropharynx with dry mucous membranes and otherwise unremarkable. EYES: Normal conjunctiva. Sclera non-icteric. NECK: Supple. No nuchal rigidity. FROM. No JVD. RESPIRATORY: Wheezes and rhonchi bilateral lung wharton. CARDIAC: Regular rate, normal rhythm. Extremities warm and well perfused. Pulses equal. ABDOMEN: Soft, non-distended. No tenderness to palpation. No rebound or guarding. No masses. RECTAL: Deferred. MUSCULOSKELETAL: Chest examination reveals no tenderness. The back is symmetrical on inspection without obvious abnormality. She exhibits reproducible tenderness of the left scapular region. There is no CVA tenderness to palpation. No joint edema. LOWER EXTREMITIES: Calves are equal size bilaterally and non-tender. No edema. No discoloration. NEURO: Normal sensorium. No sensory or motor deficits noted. SKIN: No rash or jaundice noted. Adrian Zelaya MD Past Med/Surg History Medical History Sacroiliitis History of COVID-19 12/2021 and 04/2021- sob, cough, fatigue; resolved History of recent pneumonia 09/2022 Multiple pulmonary nodules Anxiety with depression SOB (shortness of breath) Chronic respiratory failure Chronic obstructive pulmonary disease with hypoxia 3L NC CONTINUOUS Pulm - Min [place] Sleep apnea, obstructive CPAP COPD exacerbation [facility] 09/2022 Asthma Surgical History Hx of right cataract extraction Hx of colonoscopy History of partial hysterectomy History of carpal tunnel surgery of right wrist History of broken collarbone sx to repair History of tooth extraction all teeth H/O partial thyroidectomy 1990s d/t hemorrhaging?--unknown cause, no meds Family History Mother , from ovarian cancer Cancer Ovarian Sister Cancer Ovarian Father COPD (chronic obstructive pulmonary disease) Other No family history of adverse response to anesthesia Social History Smoking Status: Former smoker Tobacco Type: Cigarettes Age Started Using Tobacco: 17; Age Quit Using Tobacco: 64; packs per day: 1; Cigarettes Per Day: quit ~ 2yrs ago; Second Hand Exposure: No; Do You Dip or Chew Tobacco: No; Hx Alcohol Use: No Hx Substance Use: No Preferred Language: Icelandic 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 Ability: Effective [employer] 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 Beliefs That Will Affect Care: None marital status: Current Living Situation: Family Current Living Situation Comment: Lives with daughter Virgen Feels Safe at Home: Yes Assistive Devices: Denture - Upper, Denture - Lower, Glasses, Oxygen - Continuous and Wheelchair Allergies Allergies Allergy/AdvReac Type Severity Reaction Status Date / Time aspirin AdvReac Intermediate GI SYMPTOMS Verified 03/26/23 17:26 Home Meds Home Medications Medication Instructions Recorded Confirmed escitalopram oxalate 10 mg tablet 15 mg PO QAM 08/05/22 03/26/23 (Lexapro) albuterol sulfate 2.5 mg/3 mL 2.5 mg continuous nebulization Q6H 01/19/23 03/26/23 (0.083 %) solution for nebulization PRN Wheezing roflumilast 500 mcg tablet 500 mcg PO DAILY 02/01/23 03/26/23 ergocalciferol (vitamin D2) 1,250 1,250 mcg PO WK 03/26/23 03/26/23 mcg (50,000 unit) capsule lidocaine 5 % topical patch 1 patch transdermal QAM PRN Pain 03/26/23 03/26/23 valsartan 80 mg tablet 80 mg PO DAILY 03/26/23 03/26/23 Previous Rx's Medication Instructions Recorded CPAP Machine #1 ea 12/06/19 CPAP Supplies #1 ea 05/11/21 ProAir HFA 90 mcg/actuation 2 puff inhalation Q4 PRN Shortness 09/03/22 aerosol inhaler (albuterol sulfate) Of Breath Or Wheezing #8.5 grams ipratropium 0.5 mg-albuterol 3 mg 3 ml inhalation QID PRN Shortness 09/03/22 (2.5 mg base)/3 mL nebulization Of Breath #360 mL soln Portable Oxygen #1 ea 09/15/22 fluticasone fur. 100 mcg-umeclid 1 inh inhalation DAILY #28 ea 02/15/23 62.5 mcg-vilant 25 mcg inhalat.powder (Trelegy Ellipta) Results & Data (ED) Vital Signs Vital Signs - 24 hr 03/26/23 16:34 03/26/23 16:54 03/26/23 17:33 Temperature 36.3 C L Temperature Source Temporal Artery Scan Pulse Rate 91 H Pulse Rate [Apical] 79 Respiratory Rate 26 H 21 Respiratory Effort / Characteristics Non-Labored Spontaneous Respiratory Depth Normal Normal Respiratory Pattern Regular Blood Pressure 131/80 Blood Pressure [Right Arm] 154/88 H Blood Pressure Mean 97 Blood Pressure Mean [Right Arm] 110 Blood Pressure Position [Right Arm] Pulse Oximetry 94 95 96 Oxygen Delivery Method Nasal Cannula Nasal Cannula Oxygen Flow Rate 3 3 Sepsis Recent Fever Within 48 Hours No Sepsis New/Unexplained Change in Mental Status N/A Sepsis Action Taken by Nursing No Action Required 03/26/23 17:40 03/26/23 18:54 03/26/23 18:54 Temperature Temperature Source Pulse Rate 68 Pulse Rate [Apical] 71 Respiratory Rate 18 Respiratory Effort / Characteristics Respiratory Depth Normal Respiratory Pattern Blood Pressure Blood Pressure [Right Arm] 150/81 H Blood Pressure Mean Blood Pressure Mean [Right Arm] 104 Blood Pressure Position [Right Arm] Semi-fowlers Pulse Oximetry 99 99 Oxygen Delivery Method Nasal Cannula Nasal Cannula Oxygen Flow Rate 3 3 Sepsis Recent Fever Within 48 Hours Sepsis New/Unexplained Change in Mental Status Sepsis Action Taken by Nursing 03/26/23 18:55 03/26/23 20:00 Temperature Temperature Source Pulse Rate Pulse Rate [Apical] 77 Respiratory Rate 23 Respiratory Effort / Characteristics Respiratory Depth Normal Respiratory Pattern Blood Pressure Blood Pressure [Right Arm] 162/91 H Blood Pressure Mean Blood Pressure Mean [Right Arm] 114 Blood Pressure Position [Right Arm] Pulse Oximetry 97 Oxygen Delivery Method Nasal Cannula Nasal Cannula Oxygen Flow Rate 3 3 Sepsis Recent Fever Within 48 Hours Sepsis New/Unexplained Change in Mental Status Sepsis Action Taken by Nursing Laboratory Data Attestation: I reviewed the patient's lab results. 03/26/23 16:50 03/26/23 16:50 Lab Results 03/26/23 03/26/23 03/26/23 Range/Units 16:50 16:52 18:39 WBC 4.55 L (4.8-10.8) K/ul RBC 3.96 L (4.20-5.40) M/uL Hgb 11.5 L (12.0-16.0) g/dl Hct 34.4 L (37.0-47.0) % MCV 86.9 (80.0-100.0) fL MCH 29.0 (25.0-34.0) pg MCHC 33.4 (32.0-36.0) g/dL RDW Std Deviation 41.1 (36.4-46.3) fL RDW Coeff of Audrey 13.0 (11.5-14.5) % Plt Count 241 (130-400) K/uL MPV 10.0 (9.4-12.4) fL Immature Gran % (Auto) 0.2 % Neut % (Auto) 55.1 % Lymph % (Auto) 31.9 % Morrison % (Auto) 9.0 % Eos % (Auto) 3.1 % Baso % (Auto) 0.7 % Neut # (Auto) 2.51 (1.40-6.50) K/uL Lymph # (Auto) 1.45 (1.20-3.40) K/uL Morrison # (Auto) 0.41 (0.11-0.59) K/uL Eos # (Auto) 0.14 (0.00-0.50) K/uL Baso # (Auto) 0.03 (0.00-0.20) K/uL Immature Gran # (Auto) 0.01 (0.01-0.20) K/uL Sodium 142 (136-145) mmol/L Potassium 3.6 (3.5-5.1) mmol/L Chloride 110 H (98-107) mmol/L Carbon Dioxide 25 (21-32) mmol/L Anion Gap 7 (3-11) BUN 11 (6-23) mg/dl Creatinine 0.83 (0.6-1.2) mg/dl Est Cr Clr Drug Dosing Not Reportable Est GFR ( Amer) 84.0 ml/min Est GFR (Non-Af Amer) 72.5 ml/min BUN/Creatinine Ratio 13.3 (10-20) Glucose 126 H (70-99(Fasting)) mg/dl Calcium 8.6 (8.6-10.3) mg/dl Total Bilirubin 0.4 (0.2-1.0) mg/dl AST 21 (13-39) U/L ALT 20 (7-52) U/L Alkaline Phosphatase 106 H (34-104) U/L Troponin I High Sens (0-14) pg/ml Total Protein 6.2 (6.0-8.3) gm/dl Albumin 3.9 (3.4-5.0) gm/dl Globulin 2.3 L (2.5-4.0) gm/dl Albumin/Globulin Ratio 1.7 (0.9-2) Urine Color Yellow Urine Appearance Clear (Clear) Urine pH 7.0 (4.5-7.5) Ur Specific [place] 1.030 (1.000-1.030) Urine Protein Negative (Negative) Urine Glucose (UA) Negative (Negative) Urine Ketones Negative (Negative) Urine Blood Negative (Negative) Urine Nitrite Negative (Negative) Urine Bilirubin Negative (Negative) Urine Urobilinogen Negative (Negative) Ur Leukocyte Esterase Negative (Negative) Adenovirus (PCR) Not Detected (NotDetected) B. pertussis DNA (PCR) Not Detected (NotDetected) B.parapertussis DNA PCR Not Detected (NotDetected) C. pneumoniae DNA (PCR) Not Detected (NotDetected) Coronavirus OC43 (PCR) Not Detected (NotDetected) Coronavirus HKU1 (PCR) Not Detected (NotDetected) Coronavirus 229E (PCR) Not Detected (NotDetected) SARS-CoV-2 (PCR) Not Detected (NotDetected) Coronavirus NL63 (PCR) Not Detected (NotDetected) Human Metapneumovir PCR Not Detected (NotDetected) Influenza Type A (PCR) Not Detected (NotDetected) Influenza Type B (PCR) Not Detected (NotDetected) M. pneumoniae (PCR) Not Detected (NotDetected) Parainfluenza 1 (PCR) Not Detected (NotDetected) Parainfluenza 2 (PCR) Not Detected (NotDetected) Parainfluenza 3 (PCR) Not Detected (NotDetected) Parainfluenza 4 (PCR) Not Detected (NotDetected) RSV (PCR) Not Detected (NotDetected) Entero/Rhino (PCR) DETECTED A* (NotDetected) 03/26/23 Range/Units 19:48 WBC (4.8-10.8) K/ul RBC (4.20-5.40) M/uL Hgb (12.0-16.0) g/dl Hct (37.0-47.0) % MCV (80.0-100.0) fL MCH (25.0-34.0) pg MCHC (32.0-36.0) g/dL RDW Std Deviation (36.4-46.3) fL RDW Coeff of Audrey (11.5-14.5) % Plt Count (130-400) K/uL MPV (9.4-12.4) fL Immature Gran % (Auto) % Neut % (Auto) % Lymph % (Auto) % Morrison % (Auto) % Eos % (Auto) % Baso % (Auto) % Neut # (Auto) (1.40-6.50) K/uL Lymph # (Auto) (1.20-3.40) K/uL Morrison # (Auto) (0.11-0.59) K/uL Eos # (Auto) (0.00-0.50) K/uL Baso # (Auto) (0.00-0.20) K/uL Immature Gran # (Auto) (0.01-0.20) K/uL Sodium (136-145) mmol/L Potassium (3.5-5.1) mmol/L Chloride (98-107) mmol/L Carbon Dioxide (21-32) mmol/L Anion Gap (3-11) BUN (6-23) mg/dl Creatinine (0.6-1.2) mg/dl Est Cr Clr Drug Dosing Est GFR ( Amer) ml/min Est GFR (Non-Af Amer) ml/min BUN/Creatinine Ratio (10-20) Glucose (70-99(Fasting)) mg/dl Calcium (8.6-10.3) mg/dl Total Bilirubin (0.2-1.0) mg/dl AST (13-39) U/L ALT (7-52) U/L Alkaline Phosphatase (34-104) U/L Troponin I High Sens 5.1 (0-14) pg/ml Total Protein (6.0-8.3) gm/dl Albumin (3.4-5.0) gm/dl Globulin (2.5-4.0) gm/dl Albumin/Globulin Ratio (0.9-2) Urine Color Urine Appearance (Clear) Urine pH (4.5-7.5) Ur Specific [place] (1.000-1.030) Urine Protein (Negative) Urine Glucose (UA) (Negative) Urine Ketones (Negative) Urine Blood (Negative) Urine Nitrite (Negative) Urine Bilirubin (Negative) Urine Urobilinogen (Negative) Ur Leukocyte Esterase (Negative) Adenovirus (PCR) (NotDetected) B. pertussis DNA (PCR) (NotDetected) B.parapertussis DNA PCR (NotDetected) C. pneumoniae DNA (PCR) (NotDetected) Coronavirus OC43 (PCR) (NotDetected) Coronavirus HKU1 (PCR) (NotDetected) Coronavirus 229E (PCR) (NotDetected) SARS-CoV-2 (PCR) (NotDetected) Coronavirus NL63 (PCR) (NotDetected) Human Metapneumovir PCR (NotDetected) Influenza Type A (PCR) (NotDetected) Influenza Type B (PCR) (NotDetected) M. pneumoniae (PCR) (NotDetected) Parainfluenza 1 (PCR) (NotDetected) Parainfluenza 2 (PCR) (NotDetected) Parainfluenza 3 (PCR) (NotDetected) Parainfluenza 4 (PCR) (NotDetected) RSV (PCR) (NotDetected) Entero/Rhino (PCR) (NotDetected) Administered Medications Discontinued Medications Albuterol (Albut/Ipratrop 3mg/0.5mg Neb 3 Ml Vial) 3 ml NEB NOW STA; Protocol Stop: 03/26/23 17:14 Last Admin: 03/26/23 17:43 Dose: 3 ml Documented By: GEOVANNI Guaifenesin (Guaifenesin 600 Mg Tabcr) 1,200 mg PO NOW STA Stop: 03/26/23 17:13 Last Admin: 03/26/23 17:35 Dose: 1,200 mg Documented By: GEOVANNI Sodium Chloride (Nss) 1,000 mls @ 999 mls/hr IV .Q1H1M ONE Stop: 03/26/23 18:12 Last Infusion: 03/26/23 18:47 Dose: Infused Documented By: Admin: 03/26/23 17:36 Dose: 999 mls/hr Documented By: GEOVANNI Acetaminophen (Ofirmev) 1,000 mg in 100 mls @ 400 mls/hr IV NOW STA Stop: 03/26/23 17:26 Last Infusion: 03/26/23 17:55 Dose: Infused Documented By: Admin: 03/26/23 17:40 Dose: 400 mls/hr Documented By: GEOVANNI Ioversol (Optiray 320 125ml) 120 ml IV ONCE ONE Stop: 03/26/23 18:10 Last Admin: 03/26/23 18:09 Dose: 120 ml Documented By: MAGUE Ketorolac Tromethamine (Ketorolac Tromethamine 15 Mg/Ml Vial) 15 mg IV NOW STA Stop: 03/26/23 19:37 Last Admin: 03/26/23 19:44 Dose: 15 mg Documented By: GEOVANNI Lidocaine (Lidocaine 5% 1 Patch) 1 patch TD NOW STA Stop: 03/26/23 20:11 Last Admin: 03/26/23 20:21 Dose: 1 patch Documented By: GEOVANNI Methylprednisolone (Methylprednisolone 125 Mg/2 Ml Vial) 125 mg IV NOW STA Stop: 03/26/23 17:13 Last Admin: 03/26/23 17:37 Dose: 125 mg Documented By: GEOVANNI Sodium Chloride (Sodium Chloride 0.65% Na Soln 45 Ml ([place])) 2 sprays NA NOW ONE Stop: 03/26/23 17:14 Last Admin: 03/26/23 17:42 Dose: 2 sprays Documented By: LCD Imaging Data Radiologist's Impression: Chest X-Ray 03/26/23 16:54 XR chest 1V portable HISTORY: Dyspnea COMPARISON: Chest 01/19/2023. FINDINGS: No pneumothorax. No pleural effusions. The heart remains mildly enlarged. Chronic interstitial thickening persists. No new focal lung consolidations to suggest pneumonia. No evidence for pulmonary edema. Emphysema again noted. IMPRESSION: No significant change compared to the prior study. No acute process. ACT 112: Negative or not required by law. Electronically signed by: Rodrigue Palacios M.D. 03/26/2023 6:07 PM Chest CTA 03/26/23 17:13 CHEST CTA for PULMONARY ARTERIES CT DOSE: 500.95 mGy.cm HISTORY: Shortness of breath, left shoulder pain, r/o PE TECHNIQUE: Multiaxial CT images of the chest were performed following the intravenous administration of contrast to evaluate the pulmonary arteries. 3D/Maximal intensity projection images were also obtained. Sagittal and coronal reformations were also reviewed. A dose lowering technique was utilized adhering to the principles of ALARA. COMPARISON STUDY: Chest 03/26/2023. Chest CT 01/10/2023. FINDINGS: Left thyroid nodules again noted measuring up to 1.3 cm. These remain unchanged. Mild to moderate coronary artery calcifications are noted. Normal caliber thoracic aorta with no evidence for a dissection. No filling defects within the pulmonary arteries to suggest a pulmonary embolus. The heart is normal in size. There is a small pericardial effusion, unchanged. Limited views the upper abdomen demonstrate hepatic steatosis and a normal spleen. There is retrograde contrast opacification of the hepatic veins. Normal caliber esophagus. Stable prominent bilateral hilar lymph nodes the largest on the left measuring 1 cm. Subcentimeter mediastinal lymph nodes do not meet CT criteria for pathologic involvement. No acute fractures identified. Biapical pleural- parenchymal scarring persists. No pneumothorax. Advanced emphysema and chronic interstitial thickening again noted. Stable linear scarlike density within the right upper lobe on image 168. This measures 8 mm, previously measuring 12 mm. Additional stable subcentimeter nodules within the lower lobes measuring up to 7 mm. These are likely benign. Stable small irregular density within the right lower lobe on image 77. This favors scarring. IMPRESSION: 1. No evidence for a pulmonary embolus. 2. Small pericardial effusion, unchanged. 3. Advanced emphysema and chronic interstitial thickening persists. 4. Interval decrease in size and 8 mm nodular density within the right lower lobe medially. This previously measured 1.2 cm. This favors resolving focus of inflammatory/infectious change. 5. There is a stable small irregular density within the right lower lobe which favor scarring. 6. Follow-up chest CT in 6 months recommended to evaluate for stability/resolution of the right lower lobe abnormalities. 7. Stable prominent mediastinal lymph nodes. 8. Bronchial wall thickening has slightly progressed. 9. Additional findings as described above. ACT 112: Positive. There are findings on this exam that require communication between the performing entity and the patient following Patient Test Result Information Act ([place] Act 112) guidelines. Electronically signed by: Rodrigue Palacios M.D. 03/26/2023 7:01 PM Discharge Plan Visit Data Chief Complaint: Shortness of Breath/Dyspnea Stated Complaint: LT SHOULDER PAIN, SOB ED Provider: Adrian Zelaya Discharge Problem: Acute and chronic respiratory failure, COPD exacerbation, Rhinovirus infection Forms Stand Alone Forms: My [facility] Informative Prescriptions Prescriptions: No Action roflumilast 500 mcg tablet 500 mcg PO DAILY Rx Instructions: To be started after 28 day trial of 250 mcg dose Trelegy Ellipta 100-62.5-25 mcg blister with device 1 inh inhalation DAILY Qty: 28 0RF albuterol sulfate [ProAir HFA] 90 mcg/actuation HFA aerosol inhaler 2 puff Inhalation Q4 PRN (Reason: Shortness Of Breath Or Wheezing) Qty: 8.5 3RF ipratropium-albuterol 0.5 mg-3 mg(2.5 mg base)/3 mL solution for nebulization 3 ml INH QID PRN (Reason: Shortness Of Breath) Qty: 360 5RF (DME) CPAP Machine Misc See Rx Instructions .MEDSUPPLY Qty: 1 0RF Rx Instructions: Auto-titration CPAP with pressure range between 5 cm H2O and 15 cm H2O with humidification. Lifetime need. (DME) CPAP Supplies Misc See Rx Instructions .MEDSUPPLY Qty: 1 0RF Rx Instructions: Refitting of the mask. G47.33 (DME) Portable Oxygen Misc See Rx Instructions .Route Qty: 1 0RF Rx Instructions: portable oxygen concentrator- 3LPM on exertion via n/c. SILVIA:99 valsartan 80 mg tablet 80 mg PO DAILY ergocalciferol (vitamin D2) 1,250 mcg (50,000 unit) capsule 1,250 mcg PO WK lidocaine 5 % adhesive patch,medicated 1 patch transdermal QAM PRN (Reason: Pain) escitalopram oxalate [Lexapro] 10 mg tablet 15 mg PO QAM albuterol sulfate 2.5 mg /3 mL (0.083 %) solution for nebulization 2.5 mg continuous nebulization Q6H PRN (Reason: Wheezing) Referrals Referrals: Maya Weller DO [Primary Care Provider] - Discharge Problem: Acute and chronic respiratory failure Qualifiers: Respiratory failure complication: hypoxia Qualified Code(s): J96.21 - Acute and chronic respiratory failure with hypoxia
[2023-03-26] MEDS ORDERED: SODIUM CHLORIDE 0.9% 1,000 ML IV ONE (17:12)
[2023-03-26] MEDS ORDERED: guaiFENesin 600 MG TABCR PO STA (17:12)
[2023-03-26] MEDS ORDERED: ACETAMINOPHEN 1,000 MG/100 ML VIAL IV STA (17:12)
[2023-03-26] MEDS ORDERED: methylPREDNISolone 125 MG/2 ML VIAL IV STA (17:12)
[2023-03-26] MEDS ORDERED: ALBUT/IPRATROP 3MG/0.5MG NEB 3 ML VIAL NEB STA (17:13)
[2023-03-26] MEDS ORDERED: SODIUM CHLORIDE 0.65% NA SOLN 45 ML (OCEAN) ONE (17:13)
[2023-03-26 17:16] LABS: Basophils # (auto) 0.03 K/uL (0.00-0.20); Basophils % (auto) 0.7 %; Eosinophils # (auto) 0.14 K/uL (0.00-0.50); Eosinophils % (auto) 3.1 %; Hematocrit (blood only) 34.4 % (37.0-47.0); Hemoglobin 11.5 g/dl (12.0-16.0); Immature Granulocytes # (auto) 0.01 K/uL (0.01-0.20); Immature Granulocytes % (auto) 0.2 %; Lymphocytes # (auto) 1.45 K/uL (1.20-3.40); Lymphocytes % (auto) 31.9 %; Mean Corpuscular Hgb Conc 33.4 g/dL (32.0-36.0); Mean Corpuscular Volume 86.9 fL (80.0-100.0); Monocytes # (auto) 0.41 K/uL (0.11-0.59); Neutrophils # (auto) 2.51 K/uL (1.40-6.50); Neutrophils % (auto) 55.1 %; Platelet Count 241 K/uL (130-400); RDW Standard Deviation 41.1 fL (36.4-46.3); Red Blood Count 3.96 M/uL (4.20-5.40); White Blood Count 4.55 K/ul (4.8-10.8)
[2023-03-26 17:30] LABS: Alanine Aminotransferase 20 U/L (7-52); Albumin Globulin Ratio 1.7 (0.9-2); Albumin Level 3.9 gm/dl (3.4-5.0); Alkaline Phosphatase 106 U/L (34-104); Anion Gap 7 (3-11); Aspartate Aminotransferase 21 U/L (13-39); BUN Creatinine Ratio 13.3 (10-20); Bilirubin,Total 0.4 mg/dl (0.2-1.0); Blood Urea Nitrogen 11 mg/dl (6-23); Calcium 8.6 mg/dl (8.6-10.3); Carbon Dioxide 25 mmol/L (21-32); Chloride 110 mmol/L (98-107); Est GFR (Non-African American) 72.5 ml/min; Globulin 2.3 gm/dl (2.5-4.0); Glucose 126 mg/dl (70-99(Fasting)); Potassium 3.6 mmol/L (3.5-5.1); Sodium 142 mmol/L (136-145); Total Protein 6.2 gm/dl (6.0-8.3)
[2023-03-26 17:55] LABS: Adenovirus PCR Not Detected (NotDetected); Bordetella parapertussis PCR Not Detected (NotDetected); Bordetella pertussis PCR Not Detected (NotDetected); Chlamydia pneumoniae PCR Not Detected (NotDetected); Coronavirus 229E PCR Not Detected (NotDetected); Coronavirus CoV-2 (COVID19)PCR Not Detected (NotDetected); Coronavirus HKU1 PCR Not Detected (NotDetected); Coronavirus NL63 PCR Not Detected (NotDetected); Coronavirus OC43PCR Not Detected (NotDetected); Human Metapneumovirus PCR Not Detected (NotDetected); Influenza A PCR Not Detected (NotDetected); Influenza B PCR Not Detected (NotDetected); Mycoplasma pneumoniae PCR Not Detected (NotDetected); Parainfluenza Virus 1 PCR Not Detected (NotDetected); Parainfluenza Virus 2 PCR Not Detected (NotDetected); Parainfluenza Virus 3 PCR Not Detected (NotDetected); Parainfluenza Virus 4 PCR Not Detected (NotDetected); Respiratory Syncytial VirusPCR Not Detected (NotDetected)
[2023-03-26 17:56] LABS: Rhinovirus/Enterovirus PCR DETECTED (NotDetected)
[2023-03-26] MEDS ORDERED: OPTIRAY 320 125ml IV ONE (18:09)
--- NOTE | 2023-03-26 18:09 | XRay Report ---
XR chest 1V portable HISTORY: Dyspnea COMPARISON: Chest 01/19/2023. FINDINGS: No pneumothorax. No pleural effusions. The heart remains mildly enlarged. Chronic interstit ial thickening persists. No new focal lung consolidations to suggest pneumonia. No evidence for pulmo nary edema. Emphysema again noted. IMPRESSION: No significant change compared to the prior study. No acute process. ACT 112: Negative or not required by law. Electronically signed by: Rodrigue Palacios M.D. 03/26/2023 6:07 PM
[2023-03-26 18:50] LABS: Appearance Urine Clear (Clear); Bilirubin Urine Negative (Negative); Blood Urine Negative (Negative); Color Urine Yellow; Glucose Urine UA Negative (Negative); Ketones Urine Negative (Negative); Leukocyte Esterase Urine Negative (Negative); Nitrite Urine Negative (Negative); Protein Urine Negative (Negative); Urobilinogen Urine Negative (Negative)
--- NOTE | 2023-03-26 19:04 | CT Scan Report ---
CHEST CTA for PULMONARY ARTERIES CT DOSE: 500.95 mGy.cm HISTORY: Shortness of breath, left shoulder pain, r/o PE TECHNIQUE: Multiaxial CT images of the chest were performed following the intravenous administration of contrast to evaluate the pulmonary arteries. 3D/Maximal intensity projection images were also obta ined. Sagittal and coronal reformations were also reviewed. A dose lowering technique was utilized a dhering to the principles of ALARA. COMPARISON STUDY: Chest 03/26/2023. Chest CT 01/10/2023. FINDINGS: Left thyroid nodules again noted measuring up to 1.3 cm. These remain unchanged. Mild to mo derate coronary artery calcifications are noted. Normal caliber thoracic aorta with no evidence for a dissection. No filling defects within the pulmonary arteries to suggest a pulmonary embolus. The hea rt is normal in size. There is a small pericardial effusion, unchanged. Limited views the upper abdom en demonstrate hepatic steatosis and a normal spleen. There is retrograde contrast opacification of t he hepatic veins. Normal caliber esophagus. Stable prominent bilateral hilar lymph nodes the largest on the left measuring 1 cm. Subcentimeter mediastinal lymph nodes do not meet CT criteria for patholo gic involvement. No acute fractures identified. Biapical pleural-parenchymal scarring persists. No pn eumothorax. Advanced emphysema and chronic interstitial thickening again noted. Stable linear scarlik e density within the right upper lobe on image 168. This measures 8 mm, previously measuring 12 mm. A dditional stable subcentimeter nodules within the lower lobes measuring up to 7 mm. These are likely benign. Stable small irregular density within the right lower lobe on image 77. This favors scarring. IMPRESSION: 1. No evidence for a pulmonary embolus. 2. Small pericardial effusion, unchanged. 3. Advanced emphysema and chronic interstitial thickening persists. 4. Interval decrease in size and 8 mm nodular density within the right lower lobe medially. This prev iously measured 1.2 cm. This favors resolving focus of inflammatory/infectious change. 5. There is a stable small irregular density within the right lower lobe which favor scarring. 6. Follow-up chest CT in 6 months recommended to evaluate for stability/resolution of the right lower lobe abnormalities. 7. Stable prominent mediastinal lymph nodes. 8. Bronchial wall thickening has slightly progressed. 9. Additional findings as described above. ACT 112: Positive. There are findings on this exam that require communication between the performing entity and the patient following Patient Test Result Information Act ([place] Act 112) guidelines. Electronically signed by: Rodrigue Palacios M.D. 03/26/2023 7:01 PM
[2023-03-26] MEDS ORDERED: KETOROLAC TROMETHAMINE 15 MG/ML VIAL IV STA (19:36)
[2023-03-26] MEDS ORDERED: LIDOCAINE 5% 1 PATCH TD STA (20:10)
--- NOTE | 2023-03-26 21:03 | History & Physical Report ---
Date of Service March 26, 2023 Assessment & Plan (1) Rhinovirus infection: (2) Acute on chronic respiratory failure with hypoxia: (3) Lung transplant candidate: (4) Chronic respiratory failure with hypoxia: (5) Acute exacerbation of chronic obstructive pulmonary disease: (6) Anxiety with depression: (7) Sleep apnea, obstructive: Plan Acute on chronic respiratory failure with hypoxia/new enterovirus/rhinovirus infection/COPD exacerbation/lung transplant candidate- Symptoms similar to hospitalization from 01/10-01/18/2023 which was then triggered by parainfluenza infection Symptoms over the past week and a half appear to be triggered by an enterovirus/rhinovirus infection. BioFire testing is otherwise negative Patient did receive Solu-Medrol 125 mg IV and a DuoNeb treatment in the ED Solu-Medrol 60 mg IV every 8 hours Duonebs every 4 hours while awake and every 2 hours when necessary. Guaifenesin extended release 1200 mg p.o. twice daily Azithromycin 500 mg IV every 24 hours Nasal cannula oxygen, titrate to keep pulse ox 90-92% Continue Roflumilast Continue Trelegy Ellipta/Anoro Ellipta ALHAJI- Continue CPAP at bedtime Anxiety with depression- Continue Lexapro Lung transplant candidate- Patient reports that she was recently at [facility] She is to begin a workup for possible lung transplant in the next few weeks She is seeing Dr. Napier with the lung transplant service She reports that she has been advised to get the RSV vaccine and COVID-19 booster vaccines, however, she was advised to wait until she reaches her baseline History of Present Illness Chief Complaint: The patient presents to the emergency department with worsening shortness of breath over the past week and a half Primary Care Provider: Maya Weller DO The patient is a 67-year-old female with a past medical history including history of tobacco use disorder, paroxysmal atrial tachycardia, acute respiratory failure with hypoxia, eustachian tube dysfunction, COPD, acid reflux, COPD exacerbations, acute pericardial effusion, pulmonary nodules, ALHAJI, anxiety with depression. Her most recent hospitalization was from 01/10- for acute on chronic respiratory failure with hypoxia secondary to parainfluenza infection. Patient reports that she had been doing at her baseline since that time, until the past week and a half when she developed similar symptoms of shortness of breath, dyspnea on exertion. She reports that she has been seen at [facility] for possible lung transplant, and is to undergo workup for that process in a few weeks. Allergies Allergy/AdvReac Type Severity Reaction Status Date / Time aspirin AdvReac Intermediate GI SYMPTOMS Verified 03/26/23 17:26 Home Medications Medication Instructions Recorded Confirmed Type CPAP Machine #1 ea 12/06/19 03/26/23 Rx CPAP Supplies #1 ea 05/11/21 03/26/23 Rx escitalopram oxalate 10 mg tablet 15 mg PO QAM 08/05/22 03/26/23 History (Lexapro) ProAir HFA 90 mcg/actuation 2 puff inhalation Q4 PRN Shortness 09/03/22 03/26/23 Rx aerosol inhaler (albuterol sulfate) Of Breath Or Wheezing #8.5 grams ipratropium 0.5 mg-albuterol 3 mg 3 ml inhalation QID PRN Shortness 09/03/22 03/26/23 Rx (2.5 mg base)/3 mL nebulization Of Breath #360 mL soln Portable Oxygen #1 ea 09/15/22 03/26/23 Rx albuterol sulfate 2.5 mg/3 mL 2.5 mg continuous nebulization Q6H 01/19/23 03/26/23 History (0.083 %) solution for nebulization PRN Wheezing roflumilast 500 mcg tablet 500 mcg PO DAILY 02/01/23 03/26/23 History fluticasone fur. 100 mcg-umeclid 1 inh inhalation DAILY #28 ea 02/15/23 03/26/23 Rx 62.5 mcg-vilant 25 mcg inhalat.powder (Trelegy Ellipta) ergocalciferol (vitamin D2) 1,250 1,250 mcg PO WK 03/26/23 03/26/23 History mcg (50,000 unit) capsule lidocaine 5 % topical patch 1 patch transdermal QAM PRN Pain 03/26/23 03/26/23 History valsartan 80 mg tablet 80 mg PO DAILY 03/26/23 03/26/23 History Past Med/Surg History Medical History (Updated 03/27/23 @ 03:08 by Blaze Smith MD) Lung transplant candidate Sacroiliitis History of COVID-19 12/2021 and 04/2021- sob, cough, fatigue; resolved History of recent pneumonia 09/2022 Multiple pulmonary nodules Anxiety with depression SOB (shortness of breath) Chronic respiratory failure Chronic obstructive pulmonary disease with hypoxia 3L NC CONTINUOUS Pulm - [facility] [place] Sleep apnea, obstructive CPAP COPD exacerbation [facility] 09/2022 Asthma Surgical History Hx of right cataract extraction Hx of colonoscopy History of partial hysterectomy History of carpal tunnel surgery of right wrist History of broken collarbone sx to repair History of tooth extraction all teeth H/O partial thyroidectomy 1990s d/t hemorrhaging?--unknown cause, no meds Family History Mother , from ovarian cancer Cancer Ovarian Sister Cancer Ovarian Father COPD (chronic obstructive pulmonary disease) Other No family history of adverse response to anesthesia Social History Smoking Status: Former smoker Tobacco Type: Cigarettes Age Started Using Tobacco: 17; Age Quit Using Tobacco: 64; packs per day: 1; Cigarettes Per Day: quit ~ 2yrs ago; Second Hand Exposure: No; Do You Dip or Chew Tobacco: No; Tobacco Cessation Education Requested by Patient: No Hx Alcohol Use: No Hx Substance Use: No Preferred Language: [place] Verdean 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 Ability: Effective Supervisor Wet Room 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 Beliefs That Will Affect Care: None marital status: Current Living Situation: Family Current Living Situation Comment: Lives with daughter Virgen Other Information That Helps Us Care for You: No Feels Safe at Home: Yes Safety Concerns: Feels Safe At This Time Assistive Devices: CPAP, Nebulizer and Oxygen - Continuous Review of Systems Review of Systems: The patient denies chest pain, palpitations, lower extremity swelling, sore throat, fevers, chills, sweats, nausea, vomiting, diarrhea , constipation, abdominal pain, pelvic pain, blood in urine or stool, dysuria, urinary frequency or urgency, lightheadedness, dizziness, headache, memory loss, loss of consciousness, rash, abnormal bruising or bleeding, imbalance, focal or generalized weakness, numbness or tingling in arms or legs, generalized arthralgias or myalgias, back or neck pain, or night sweats. The review of systems is otherwise negative other than for that already noted above, and at least 10 systems have been reviewed. Physical Exam Physical Exam: The patient is awake, alert and oriented 3, well developed and well nourished, normocephalic and atraumatic, lying in bed and in no acute distress. HEENT--PERRL, EOMI, mucous membranes and oropharynx normal. Neck--supple. No JVD. No bruits. Thyroid normal, trachea midline, no adenopathy. Heart--normal S1 and S2. No murmurs, rubs or gallops. Lungs--decreased breath sounds throughout. No respiratory distress, no accessory muscle use. Abdomen--normal bowel sounds and soft. Nontender. Nondistended, no hernias or masses, no organomegaly. Extremities--no cyanosis or clubbing. No edema. Dermatologic--normal skin turgor, normal color, no abnormal lymph nodes, no rash. Neurologic--cranial nerves II through XII grossly intact. Rheumatologic--normal range of motion. Psychiatric--normal affect. Results & Data Results & Data Vital Signs (Past 12 Hours) Vital Signs Temp Pulse Pulse Resp BP BP Pulse Ox 03/26/23 20:00 77 23 162/91 H 97 03/26/23 18:55 03/26/23 18:54 71 18 150/81 H 99 03/26/23 18:54 99 03/26/23 17:40 68 03/26/23 17:33 79 21 154/88 H 96 03/26/23 16:54 95 03/26/23 16:34 36.3 C L 91 H 26 H 131/80 94 O2 Del Method O2 Flow Rate 03/26/23 20:00 Nasal Cannula 3 03/26/23 18:55 Nasal Cannula 3 03/26/23 18:54 Nasal Cannula 3 03/26/23 18:54 Nasal Cannula 3 03/26/23 17:40 03/26/23 17:33 Nasal Cannula 3 03/26/23 16:54 03/26/23 16:34 Nasal Cannula 3 Laboratory Results Laboratory Results WBC 4.55 K/ul (4.8-10.8) L 03/26/23 16:50 RBC 3.96 M/uL (4.20-5.40) L 03/26/23 16:50 Hgb 11.5 g/dl (12.0-16.0) L 03/26/23 16:50 Hct 34.4 % (37.0-47.0) L 03/26/23 16:50 MCV 86.9 fL (80.0-100.0) 03/26/23 16:50 MCH 29.0 pg (25.0-34.0) 03/26/23 16:50 MCHC 33.4 g/dL (32.0-36.0) 03/26/23 16:50 RDW Std Deviation 41.1 fL (36.4-46.3) 03/26/23 16:50 RDW Coeff of Audrey 13.0 % (11.5-14.5) 03/26/23 16:50 Plt Count 241 K/uL (130-400) 03/26/23 16:50 MPV 10.0 fL (9.4-12.4) 03/26/23 16:50 Immature Gran % (Auto) 0.2 % 03/26/23 16:50 Neut % (Auto) 55.1 % 03/26/23 16:50 Lymph % (Auto) 31.9 % 03/26/23 16:50 Gaston % (Auto) 9.0 % 03/26/23 16:50 Eos % (Auto) 3.1 % 03/26/23 16:50 Baso % (Auto) 0.7 % 03/26/23 16:50 Neut # (Auto) 2.51 K/uL (1.40-6.50) 03/26/23 16:50 Lymph # (Auto) 1.45 K/uL (1.20-3.40) 03/26/23 16:50 Gaston # (Auto) 0.41 K/uL (0.11-0.59) 03/26/23 16:50 Eos # (Auto) 0.14 K/uL (0.00-0.50) 03/26/23 16:50 Baso # (Auto) 0.03 K/uL (0.00-0.20) 03/26/23 16:50 Immature Gran # (Auto) 0.01 K/uL (0.01-0.20) 03/26/23 16:50 Sodium 142 mmol/L (136-145) 03/26/23 16:50 Potassium 3.6 mmol/L (3.5-5.1) 03/26/23 16:50 Chloride 110 mmol/L (98-107) H 03/26/23 16:50 Carbon Dioxide 25 mmol/L (21-32) 03/26/23 16:50 Anion Gap 7 (3-11) 03/26/23 16:50 BUN 11 mg/dl (6-23) 03/26/23 16:50 Creatinine 0.83 mg/dl (0.6-1.2) 03/26/23 16:50 Est Cr Clr Drug Dosing Not Reportable 03/26/23 16:50 Est GFR ( Amer) 84.0 ml/min 03/26/23 16:50 Est GFR (Non-Af Amer) 72.5 ml/min 03/26/23 16:50 BUN/Creatinine Ratio 13.3 (10-20) 03/26/23 16:50 Glucose 126 mg/dl (70-99(Fasting)) H 03/26/23 16:50 Calcium 8.6 mg/dl (8.6-10.3) 03/26/23 16:50 Total Bilirubin 0.4 mg/dl (0.2-1.0) 03/26/23 16:50 AST 21 U/L (13-39) 03/26/23 16:50 ALT 20 U/L (7-52) 03/26/23 16:50 Alkaline Phosphatase 106 U/L (34-104) H 03/26/23 16:50 Troponin I High Sens 5.1 pg/ml (0-14) 03/26/23 19:48 Total Protein 6.2 gm/dl (6.0-8.3) 03/26/23 16:50 Albumin 3.9 gm/dl (3.4-5.0) 03/26/23 16:50 Globulin 2.3 gm/dl (2.5-4.0) L 03/26/23 16:50 Albumin/Globulin Ratio 1.7 (0.9-2) 03/26/23 16:50 Urine Color Yellow 03/26/23 18:39 Urine Appearance Clear (Clear) 03/26/23 18:39 Urine pH 7.0 (4.5-7.5) 03/26/23 18:39 Ur Specific [place] 1.030 (1.000-1.030) 03/26/23 18:39 Urine Protein Negative (Negative) 03/26/23 18:39 Urine Glucose (UA) Negative (Negative) 03/26/23 18:39 Urine Ketones Negative (Negative) 03/26/23 18:39 Urine Blood Negative (Negative) 03/26/23 18:39 Urine Nitrite Negative (Negative) 03/26/23 18:39 Urine Bilirubin Negative (Negative) 03/26/23 18:39 Urine Urobilinogen Negative (Negative) 03/26/23 18:39 Ur Leukocyte Esterase Negative (Negative) 03/26/23 18:39 Adenovirus (PCR) Not Detected (NotDetected) 03/26/23 16:52 B. pertussis DNA (PCR) Not Detected (NotDetected) 03/26/23 16:52 B.parapertussis DNA PCR Not Detected (NotDetected) 03/26/23 16:52 C. pneumoniae DNA (PCR) Not Detected (NotDetected) 03/26/23 16:52 Coronavirus OC43 (PCR) Not Detected (NotDetected) 03/26/23 16:52 Coronavirus HKU1 (PCR) Not Detected (NotDetected) 03/26/23 16:52 Coronavirus 229E (PCR) Not Detected (NotDetected) 03/26/23 16:52 SARS-CoV-2 (PCR) Not Detected (NotDetected) 03/26/23 16:52 Coronavirus NL63 (PCR) Not Detected (NotDetected) 03/26/23 16:52 Human Metapneumovir PCR Not Detected (NotDetected) 03/26/23 16:52 Influenza Type A (PCR) Not Detected (NotDetected) 03/26/23 16:52 Influenza Type B (PCR) Not Detected (NotDetected) 03/26/23 16:52 M. pneumoniae (PCR) Not Detected (NotDetected) 03/26/23 16:52 Parainfluenza 1 (PCR) Not Detected (NotDetected) 03/26/23 16:52 Parainfluenza 2 (PCR) Not Detected (NotDetected) 03/26/23 16:52 Parainfluenza 3 (PCR) Not Detected (NotDetected) 03/26/23 16:52 Parainfluenza 4 (PCR) Not Detected (NotDetected) 03/26/23 16:52 RSV (PCR) Not Detected (NotDetected) 03/26/23 16:52 Entero/Rhino (PCR) DETECTED (NotDetected) A* 03/26/23 16:52 Impressions Chest X-Ray 03/26/23 16:54 XR chest 1V portable HISTORY: Dyspnea COMPARISON: Chest 01/19/2023. FINDINGS: No pneumothorax. No pleural effusions. The heart remains mildly enlarged. Chronic interstitial thickening persists. No new focal lung consolidations to suggest pneumonia. No evidence for pulmonary edema. Emphysema again noted. IMPRESSION: No significant change compared to the prior study. No acute process. ACT 112: Negative or not required by law. Electronically signed by: Rodrigue Palacios M.D. 03/26/2023 6:07 PM Chest CTA 03/26/23 17:13 CHEST CTA for PULMONARY ARTERIES CT DOSE: 500.95 mGy.cm HISTORY: Shortness of breath, left shoulder pain, r/o PE TECHNIQUE: Multiaxial CT images of the chest were performed following the intravenous administration of contrast to evaluate the pulmonary arteries. 3D/Maximal intensity projection images were also obtained. Sagittal and coronal reformations were also reviewed. A dose lowering technique was utilized adhering to the principles of ALARA. COMPARISON STUDY: Chest 03/26/2023. Chest CT 01/10/2023. FINDINGS: Left thyroid nodules again noted measuring up to 1.3 cm. These remain unchanged. Mild to moderate coronary artery calcifications are noted. Normal caliber thoracic aorta with no evidence for a dissection. No filling defects within the pulmonary arteries to suggest a pulmonary embolus. The heart is normal in size. There is a small pericardial effusion, unchanged. Limited views the upper abdomen demonstrate hepatic steatosis and a normal spleen. There is retrograde contrast opacification of the hepatic veins. Normal caliber esophagus. Stable prominent bilateral hilar lymph nodes the largest on the left measuring 1 cm. Subcentimeter mediastinal lymph nodes do not meet CT criteria for pathologic involvement. No acute fractures identified. Biapical pleural- parenchymal scarring persists. No pneumothorax. Advanced emphysema and chronic interstitial thickening again noted. Stable linear scarlike density within the right upper lobe on image 168. This measures 8 mm, previously measuring 12 mm. Additional stable subcentimeter nodules within the lower lobes measuring up to 7 mm. These are likely benign. Stable small irregular density within the right lower lobe on image 77. This favors scarring. IMPRESSION: 1. No evidence for a pulmonary embolus. 2. Small pericardial effusion, unchanged. 3. Advanced emphysema and chronic interstitial thickening persists. 4. Interval decrease in size and 8 mm nodular density within the right lower lobe medially. This previously measured 1.2 cm. This favors resolving focus of inflammatory/infectious change. 5. There is a stable small irregular density within the right lower lobe which favor scarring. 6. Follow-up chest CT in 6 months recommended to evaluate for st ability/resolution of the right lower lobe abnormalities. 7. Stable prominent mediastinal lymph nodes. 8. Bronchial wall thickening has slightly progressed. 9. Additional findings as described above. ACT 112: Positive. There are findings on this exam that require communication between the performing entity and the patient following Patient Test Result Information Act ([place] Act 112) guidelines. Electronically signed by: Rodrigue Paalcios M.D. 03/26/2023 7:01 PM Code Status & VTE Plan Code Status Full code VTE Prophylaxis Plan VTE Prophylaxis will be ordered: Yes PG Care Time/CCT Total # of Minutes Spent Total Time Spent with Patient: Total time spent is greater than 50% in coordination of care (as documented) at patient's floor/unit and/or counseling patient: Coding Level of Care Code 72044 INT INP/OBS CARE 3/75MIN Diagnoses Rhinovirus infection B34.8 Acute on chronic respiratory failure with hypoxia J96.21 Lung transplant candidate Z76.82 Chronic respiratory failure with hypoxia J96.11 Acute exacerbation of chronic obstructive pulmonary disease J44.1 Anxiety with depression F41.8 Sleep apnea, obstructive G47.33
[2023-03-26] MEDS ORDERED: AZITHROMYCIN 500 MG in DEXTROSE 5% 250 ML IV SCH (22:00)
[2023-03-26] MEDS ORDERED: ONDANSETRON INJ 2 MG/ML 2 ML VIAL IV PRN (22:35)
[2023-03-27] MEDS: ALBUT/IPRATROP 3MG/0.5MG NEB 3 ML VIAL NEB SCH ×5 (00:38→19:43)
[2023-03-27] MEDS: methylPREDNISolone 60 MG in SYRINGE 0 ML IV SCH ×3 (02:55→18:23)
[2023-03-27 07:14] LABS: Basophils # (auto) 0.01 K/uL (0.00-0.20); Basophils % (auto) 0.4 %; Hematocrit (blood only) 35.8 % (37.0-47.0); Hemoglobin 12.1 g/dl (12.0-16.0); Immature Granulocytes # (auto) 0.02 K/uL (0.01-0.20); Immature Granulocytes % (auto) 0.7 %; Lymphocytes # (auto) 0.78 K/uL (1.20-3.40); Lymphocytes % (auto) 28.4 %; Mean Corpuscular Hemoglobin 28.4 pg (25.0-34.0); Mean Corpuscular Hgb Conc 33.8 g/dL (32.0-36.0); Mean Platelet Volume 10.5 fL (9.4-12.4); Monocytes # (auto) 0.03 K/uL (0.11-0.59); Monocytes % (auto) 1.1 %; Neutrophils # (auto) 1.91 K/uL (1.40-6.50); Neutrophils % (auto) 69.4 %; Platelet Count 264 K/uL (130-400); RDW Coefficient of Variation 12.7 % (11.5-14.5); RDW Standard Deviation 38.8 fL (36.4-46.3); Red Blood Count 4.26 M/uL (4.20-5.40); White Blood Count 2.75 K/ul (4.8-10.8)
--- NOTE | 2023-03-27 07:47 | Electrocardiogram Report ---
Test Reason : Blood Pressure : / mmHG Vent. Rate : 085 BPM Atrial Rate : 085 BPM P-R Int : 144 ms QRS Dur : 072 ms QT Int : 364 ms P-R-T Axes : 083 077 072 degrees QTc Int : 433 ms Normal sinus rhythm Nonspecific ST abnormality Abnormal ECG When compared with ECG of 19-JAN-2023 04:17, No significant change was found Confirmed by Arthur Pack ([id number]) on 03/27/2023 7:47:39 AM Referred By: REFERRED SELF Confirmed By:Glenroy Pack
[2023-03-27 07:51] LABS: Albumin Level 3.9 gm/dl (3.4-5.0); BUN Creatinine Ratio 17.6 (10-20); Calcium 9.3 mg/dl (8.6-10.3); Creatinine Clr Calc Pharmacy 71.3 ml/min; Est GFR (African American) 96.5 ml/min; Est GFR (Non-African American) 83.2 ml/min; Magnesium 1.9 mg/dl (1.7-2.4); Phosphorus 4.4 mg/dl (2.5-4.9); Potassium 3.9 mmol/L (3.5-5.1)
[2023-03-27] MEDS: FLUTICASONE FUROATE 100MCG 14 PUFFS/INHALER INH SCH (08:25)
[2023-03-27] MEDS: UMECLIDINIUM/VILANTEROL 62.5/25MCG 7 PUFFS/INHALER INH SCH (08:25)
[2023-03-27] MEDS: ESCITALOPRAM OXALATE 10 MG TAB PO SCH (08:26)
[2023-03-27] MEDS: ROFLUMILAST 500 MCG TAB PO SCH (08:26)
[2023-03-27] MEDS: VALSARTAN 80 MG TAB PO SCH (08:26)
[2023-03-27] MEDS: guaiFENesin 600 MG TABCR PO SCH ×2 (08:26→21:46)
[2023-03-27] MEDS: ACETAMINOPHEN 325 MG TAB PO PRN ×2 (08:31→13:21)
[2023-03-27] MEDS ORDERED: DEXTROMETHORPHAN POLYMR COMPLX 60 MG/10 ML UDP PO PRN (14:00)
--- NOTE | 2023-03-27 14:29 | Hospitalist Progress Note ---
Date of Service March 27, 2023 Assessment & Plan (1) Acute on chronic respiratory failure with hypoxia: Plan: Acute on chronic respiratory failure with hypoxia/new enterovirus/rhinovirus infection/COPD exacerbation/lung transplant candidate- Symptoms similar to hospitalization from 01/10-01/18/2023 which was then triggered by parainfluenza infection Symptoms over the past week and a half appear to be triggered by an enterovirus/rhinovirus infection. BioFire testing is otherwise negative CTA CHest neg for PE or PNA Patient did receive Solu-Medrol 125 mg IV and a DuoNeb treatment in the ED- continues on Solu-Medrol 60 mg IV every 8 hours Duonebs every 4 hours while awake and every 2 hours when necessary. Guaifenesin extended release 1200 mg p.o. twice daily Azithromycin 500 mg IV given and now convert to azithro 250mg po daily x 4 more days Nasal cannula oxygen, titrate to keep pulse ox 90-92% Continue Roflumilast Continue Trelegy Ellipta/Anoro Ellipta Add on dextromethorphan prn cough (2) Rhinovirus infection: Plan: as above, causing COPD exacerbation (3) Headache: Plan: suspect sinusitis secondary bacterial to RHino/Enterovirus infection With frontal headache -start Augmentin 875mg po bid x 10 day course -start FLonase and continue nasal saline spray -tylenol prn headache -steroids for COPD exacerbation will also help sinusitis (4) Acute exacerbation of chronic obstructive pulmonary disease: Plan: as above (5) Lung transplant candidate: Plan: Lung transplant candidate- Patient reports that she was recently at [facility] She is to begin a workup for possible lung transplant in the next few weeks She is seeing Dr. Napier with the lung transplant service She reports that she has been advised to get the RSV vaccine and COVID-19 booster vaccines, however, she was advised to wait until she reaches her baseline (6) Anxiety with depression: Plan: stable Continue Lexapro (7) Sleep apnea, obstructive: Plan: Continue CPAP at bedtime Plan DVT proph-add Lovenox Dispo-continued stay, downgrade to med/surg from tele Admission and Anticipated Discharge Date Admission Date: March 26, 2023 Subjective Pt c/o a headache mostly in frontal region and behind bridge of nose with sinus congestion, but some headache generalized all over her head. Improved somewhat with tylenol. Has a cough mostly with using the flutter valve.Has had some diarrhea for a few days as well. Tele with SB and NSR rates 50-80s Physical Exam Constitutional: WD/WN, vitals as above Neck: trachea midline, no thyromegaly Respiratory: normal respiratory effort Auscultation: + diminished lung sounds (throughout); no crackles, no rhonchi and no wheezes Cardiovascular: RRR, no murmur, no edema Chest (Breasts): Chest: normal inspection of chest Gastrointestinal (Abdomen): normal bowel sounds, soft, nontender, no hepatosplenomegaly Musculoskeletal: Extremities: extremities normal to inspection; no cyanosis and no clubbing Skin: no rashes, warm and dry Neurologic: moves all extremities and awake; no focal motor deficits Psychiatric: A+Ox3, euthymic affect Lymphatic: no lymphedema Results & Data Results & Data Vital Signs (Past 12 Hours) Vital Signs Temp Pulse Pulse Pulse Resp BP Pulse Ox 03/27/23 14:27 79 22 95 03/27/23 11:48 36.3 C L 85 20 136/71 96 03/27/23 10:29 88 22 96 03/27/23 10:02 03/27/23 07:55 59 L 03/27/23 07:47 36.2 C L 67 20 174/79 H 94 03/27/23 07:35 65 24 95 03/27/23 04:52 36.4 C L 64 18 182/86 H 97 O2 Del Method O2 Flow Rate 03/27/23 14:27 Nasal Cannula 3 03/27/23 11:48 Nasal Cannula 3 03/27/23 10:29 Nasal Cannula 3 03/27/23 10:02 Nasal Cannula 3 03/27/23 07:55 03/27/23 07:47 Nasal Cannula 3 03/27/23 07:35 Nasal Cannula 3 03/27/23 04:52 Nasal Cannula 3 Laboratory Results CBC, BMP, magnesium, troponin, UA all reviewed PG Care Time/CCT Total # of Minutes Spent Total Time Spent with Patient: Total time spent is greater than 50% in coordination of care (as documented) at patient's floor/unit and/or counseling patient: Coding Level of Care Code 10533 SUB INP/OBS CARE 2/35MIN Diagnoses Acute on chronic respiratory failure with hypoxia J96.21 Rhinovirus infection B34.8 Headache R51.9 Headache chronicity pattern: unspecified pattern Headache type: unspecified Intractability: not intractable Acute exacerbation of chronic obstructive pulmonary disease J44.1 Lung transplant candidate Z76.82 Anxiety with depression F41.8 Sleep apnea, obstructive G47.33 (3) Headache Headache chronicity pattern: unspecified pattern Headache type: unspecified Intractability: not intractable Qualified Code(s): R51.9 - Headache, unspecified
[2023-03-27] MEDS: FLUTICASONE PROPIONATE NA SPR 16 GM BTL SCH (16:53)
[2023-03-27] MEDS: AMOXICILLIN/CLAVULANATE 875 MG TAB PO SCH (16:53)
[2023-03-27] MEDS: AZITHROMYCIN 250 MG TAB PO SCH (19:59)
[2023-03-27] MEDS ORDERED: LIDOCAINE 5% 1 PATCH TD PRN (21:00)
[2023-03-27] MEDS ORDERED: LORazepam 0.5 MG TAB PO STA (21:51)
[2023-03-27] MEDS ORDERED: oxyCODONE HCL IR 5 MG TAB (IMMEDIATE RELEASE) PO STA (21:51)
[2023-03-28] MEDS: methylPREDNISolone 60 MG in SYRINGE 0 ML IV SCH ×3 (01:38→17:02)
[2023-03-28] MEDS: ALBUT/IPRATROP 3MG/0.5MG NEB 3 ML VIAL NEB SCH ×4 (06:00→19:58)
[2023-03-28 06:35] LABS: Hematocrit (blood only) 33.9 % (37.0-47.0); Hemoglobin 11.6 g/dl (12.0-16.0); Mean Corpuscular Hemoglobin 29.3 pg (25.0-34.0); Mean Corpuscular Hgb Conc 34.2 g/dL (32.0-36.0); Mean Corpuscular Volume 85.6 fL (80.0-100.0); Mean Platelet Volume 10.2 fL (9.4-12.4); Platelet Count 278 K/uL (130-400); RDW Coefficient of Variation 12.8 % (11.5-14.5); RDW Standard Deviation 39.7 fL (36.4-46.3); Red Blood Count 3.96 M/uL (4.20-5.40); White Blood Count 9.11 K/ul (4.8-10.8)
[2023-03-28 06:40] LABS: Albumin Level 3.9 gm/dl (3.4-5.0); BUN Creatinine Ratio 26.1 (10-20); Calcium 8.9 mg/dl (8.6-10.3); Creatinine Clr Calc Pharmacy 59.9 ml/min; Est GFR (African American) 78.2 ml/min; Est GFR (Non-African American) 67.5 ml/min; Magnesium 1.9 mg/dl (1.7-2.4); Phosphorus 4.4 mg/dl (2.5-4.9); Potassium 3.7 mmol/L (3.5-5.1)
[2023-03-28] MEDS: AMOXICILLIN/CLAVULANATE 875 MG TAB PO SCH ×2 (07:52→17:03)
[2023-03-28] MEDS: UMECLIDINIUM/VILANTEROL 62.5/25MCG 7 PUFFS/INHALER INH SCH (07:52)
[2023-03-28] MEDS: FLUTICASONE FUROATE 100MCG 14 PUFFS/INHALER INH SCH (07:53)
[2023-03-28] MEDS: ENOXAPARIN INJ 40 MG/0.4 ML SYR SQ SCH (07:53)
[2023-03-28] MEDS: FLUTICASONE PROPIONATE NA SPR 16 GM BTL SCH (07:53)
[2023-03-28 07:54] LABS: Basophils # (auto) 0.01 K/uL (0.00-0.20); Basophils % (auto) 0.1 %; Immature Granulocytes # (auto) 0.02 K/uL (0.01-0.20); Immature Granulocytes % (auto) 0.2 %; Lymphocytes # (auto) 0.66 K/uL (1.20-3.40); Lymphocytes % (auto) 7.2 %; Monocytes # (auto) 0.12 K/uL (0.11-0.59); Monocytes % (auto) 1.3 %; Neutrophils % (auto) 91.2 %
[2023-03-28] MEDS: ROFLUMILAST 500 MCG TAB PO SCH (09:01)
[2023-03-28] MEDS: VALSARTAN 80 MG TAB PO SCH (09:02)
[2023-03-28] MEDS: ESCITALOPRAM OXALATE 10 MG TAB PO SCH (09:02)
[2023-03-28] MEDS: guaiFENesin 600 MG TABCR PO SCH ×2 (09:02→20:07)
[2023-03-28] MEDS: dilTIAZem HCL 180 MG CAPCR PO SCH (14:19)
--- NOTE | 2023-03-28 15:05 | Hospitalist Progress Note ---
Date of Service March 28, 2023 Assessment & Plan (1) Acute on chronic respiratory failure with hypoxia: Plan: Oxygen per nasal cannula to maintain saturation greater than 90%. Avoid high oxygen saturations to help prevent CO2 retention. Treat underlying exacerbation of COPD. Chest CTA negative for PE and negative for pneumonia (2) Rhinovirus infection: Plan: Likely cause of COPD exacerbation. Supportive care (3) Headache: Plan: Possible underlying sinusitis. Now on Augmentin. (4) Acute exacerbation of chronic obstructive pulmonary disease: Plan: Parenteral steroid therapy. Nebulizer treatments. Appears to be due to rhinovirus infection (5) Lung transplant candidate: Plan: She sees pulmonary medicine at [facility]. Continue current medical management (6) Anxiety with depression: Plan: Lorazepam as needed. Continue Lexapro (7) Sleep apnea, obstructive: Plan: Continue CPAP at bedtime Plan Hopeful discharge to home soon Admission and Anticipated Discharge Date Admission Date: March 26, 2023 Subjective Alert and oriented. No distress. She is somewhat anxious and asking for lorazepam as needed. Diltiazem CD restarted to prevent atrial dysrhythmias which she is at high risk for due to the severity of her underlying COPD. She remains on parenteral steroid therapy and DuoNebs. Chest CT scan negative for PE and negative for pneumonia. Review of Systems 2 Review of Systems: Constitutional-no fever or chills ENT-no blurred vision, no double vision, no epistaxis, no sore throat Respiratory-occasional nonproductive cough. Shortness of breath with minimal exertion. Cardiac-no palpitations, no chest pain, no syncope GI-no nausea, vomiting, diarrhea, melena, hematochezia -no urinary retention, no urinary incontinence, no dysuria, no hematuria Musculoskeletal-no joint pain, no muscle tenderness Skin-no bruising, no rashes, no pruritus Neuro-no isolated weakness, no paresthesia, no weakness Psych-no depression, no anxiety Physical Exam 2 Physical Exam: General-alert and oriented x3, no fevers, no chills HEENT-head atraumatic and normocephalic, pupils equal and reactive to light, extraocular muscles intact Neck-no lymphadenopathy or thyromegaly, trachea midline Chest-diminished breath sounds bilaterally. Bilateral end expiratory wheezing. No rhonchi. No dullness to percussion. Cardiac-regular rate and rhythm, normal S1 and S2 Abdomen-normal bowel sounds, nontender, no hepatosplenomegaly Extremities-no cyanosis, clubbing, or edema Neuro-cranial nerves II through XII intact, motor and sensory function within normal limits, strength symmetrical, no focal deficits Psych-normal affect, normal mood Results & Data Results & Data Vital Signs (Past 12 Hours) Vital Signs Temp Pulse Resp BP Pulse Ox O2 Del Method O2 Flow Rate 03/28/23 14:48 102 H 28 H 91 Nasal Cannula 3 03/28/23 11:40 80 20 94 Nasal Cannula 3 03/28/23 07:56 Nasal Cannula 3 03/28/23 06:21 37 C 97 H 16 178/84 H 96 Nasal Cannula 3 03/28/23 05:58 78 20 95 Nasal Cannula 3 03/28/23 03:25 18 3 Laboratory Results 03/28/23 05:31 03/28/23 05:31 PG Care Time/CCT Total # of Minutes Spent Total Time Spent with Patient: Total time spent is greater than 50% in coordination of care (as documented) at patient's floor/unit and/or counseling patient: Coding Level of Care Code 02668 SUB INP/OBS CARE 3/50MIN Diagnoses Acute on chronic respiratory failure with hypoxia J96.21 Rhinovirus infection B34.8 Headache R51.9 Headache chronicity pattern: unspecified pattern Headache type: unspecified Intractability: not intractable Acute exacerbation of chronic obstructive pulmonary disease J44.1 Lung transplant candidate Z76.82 Anxiety with depression F41.8 Sleep apnea, obstructive G47.33 (3) Headache Headache chronicity pattern: unspecified pattern Headache type: unspecified Intractability: not intractable Qualified Code(s): R51.9 - Headache, unspecified
[2023-03-28] MEDS: AZITHROMYCIN 250 MG TAB PO SCH (20:08)
[2023-03-28] MEDS: LORazepam 0.5 MG TAB PO PRN (21:02)
[2023-03-29] MEDS: methylPREDNISolone 60 MG in SYRINGE 0 ML IV SCH ×3 (01:07→18:22)
[2023-03-29 06:35] LABS: Hematocrit (blood only) 33.5 % (37.0-47.0); Hemoglobin 11.4 g/dl (12.0-16.0); Mean Corpuscular Hemoglobin 29.5 pg (25.0-34.0); Mean Corpuscular Volume 86.6 fL (80.0-100.0); Mean Platelet Volume 10.1 fL (9.4-12.4); Platelet Count 259 K/uL (130-400); RDW Coefficient of Variation 13.1 % (11.5-14.5); RDW Standard Deviation 41.2 fL (36.4-46.3); Red Blood Count 3.87 M/uL (4.20-5.40); White Blood Count 7.72 K/ul (4.8-10.8)
[2023-03-29 06:52] LABS: Albumin Level 3.8 gm/dl (3.4-5.0); BUN Creatinine Ratio 28.7 (10-20); Calcium 8.8 mg/dl (8.6-10.3); Creatinine Clr Calc Pharmacy 60.6 ml/min; Est GFR (African American) 79.3 ml/min; Est GFR (Non-African American) 68.5 ml/min; Phosphorus 4.2 mg/dl (2.5-4.9); Potassium 3.7 mmol/L (3.5-5.1)
[2023-03-29 07:00] LABS: Hypersegmented Neutrophils 1+; Immature Granulocytes # (auto) 0.03 K/uL (0.01-0.20); Immature Granulocytes % (auto) 0.4 %; Lymphocytes # (auto) 0.55 K/uL (1.20-3.40); Lymphocytes % (auto) 7.1 %; Monocytes # (auto) 0.11 K/uL (0.11-0.59); Monocytes % (auto) 1.4 %; Neutrophils # (auto) 7.03 K/uL (1.40-6.50); Neutrophils % (auto) 91.1 %
[2023-03-29] MEDS: ALBUT/IPRATROP 3MG/0.5MG NEB 3 ML VIAL NEB SCH ×4 (07:40→19:56)
[2023-03-29] MEDS: UMECLIDINIUM/VILANTEROL 62.5/25MCG 7 PUFFS/INHALER INH SCH (08:04)
[2023-03-29] MEDS: FLUTICASONE FUROATE 100MCG 14 PUFFS/INHALER INH SCH (08:05)
[2023-03-29] MEDS: dilTIAZem HCL 180 MG CAPCR PO SCH (08:05)
[2023-03-29] MEDS: AMOXICILLIN/CLAVULANATE 875 MG TAB PO SCH (08:05)
[2023-03-29] MEDS: FLUTICASONE PROPIONATE NA SPR 16 GM BTL SCH (08:05)
[2023-03-29] MEDS: guaiFENesin 600 MG TABCR PO SCH ×2 (08:05→20:23)
[2023-03-29] MEDS: ROFLUMILAST 500 MCG TAB PO SCH (08:06)
[2023-03-29] MEDS: ESCITALOPRAM OXALATE 10 MG TAB PO SCH (08:06)
[2023-03-29] MEDS: VALSARTAN 80 MG TAB PO SCH (08:06)
[2023-03-29] MEDS: ENOXAPARIN INJ 40 MG/0.4 ML SYR SQ SCH (08:07)
--- NOTE | 2023-03-29 12:25 | Hospitalist Progress Note ---
Date of Service March 29, 2023 Assessment & Plan (1) Acute on chronic respiratory failure with hypoxia: Plan: Oxygen per nasal cannula to maintain saturation greater than 90%. Avoid high oxygen saturations to help prevent CO2 retention. Treat underlying exacerbation of COPD. Chest CTA negative for PE and negative for pneumonia. Oxygen requirements have decreased (2) Rhinovirus infection: Plan: Likely cause of COPD exacerbation. Supportive care (3) Headache: Plan: Possible underlying sinusitis. She has been treated with Augmentin which has been discontinued today, March 29 (4) Acute exacerbation of chronic obstructive pulmonary disease: Plan: Improving with parenteral steroid therapy. Nebulizer treatments. Appears to be due to rhinovirus infection (5) Lung transplant candidate: Plan: She sees pulmonary medicine at [facility]. Continue current medical management (6) Anxiety with depression: Plan: Lorazepam as needed. Continue Lexapro (7) Sleep apnea, obstructive: Plan: Continue CPAP at bedtime Plan Hopeful discharge to home soon . Hopefully within the next day or 2 Admission and Anticipated Discharge Date Admission Date: March 26, 2023 Subjective Alert and oriented. No new problems. She believes she is slowly getting better. Oxygen requirements have lessened. Addition of diltiazem CD has helped suppress atrial dysrhythmia. Augmentin discontinued. She remains on azithromycin as before. Hopefully she can go home within the next day or 2 Review of Systems 2 Review of Systems: Constitutional-no fever or chills ENT-no blurred vision, no double vision, no epistaxis, no sore throat Respiratory-occasional nonproductive cough. Shortness of breath with minimal exertion. Cardiac-no palpitations, no chest pain, no syncope GI-no nausea, vomiting, diarrhea, melena, hematochezia -no urinary retention, no urinary incontinence, no dysuria, no hematuria Musculoskeletal-no joint pain, no muscle tenderness Skin-no bruising, no rashes, no pruritus Neuro-no isolated weakness, no paresthesia, no weakness Psych-no depression, no anxiety Physical Exam 2 Physical Exam: General-alert and oriented x3, no fevers, no chills HEENT-head atraumatic and normocephalic, pupils equal and reactive to light, extraocular muscles intact Neck-no lymphadenopathy or thyromegaly, trachea midline Chest-diminished breath sounds bilaterally. Bilateral end expiratory wheezing. No rhonchi. No dullness to percussion. Cardiac-regular rate and rhythm, normal S1 and S2 Abdomen-normal bowel sounds, nontender, no hepatosplenomegaly Extremities-no cyanosis, clubbing, or edema Neuro-cranial nerves II through XII intact, motor and sensory function within normal limits, strength symmetrical, no focal deficits Psych-normal affect, normal mood Results & Data Results & Data Vital Signs (Past 12 Hours) Vital Signs Temp Pulse Pulse Resp BP Pulse Ox O2 Del Method 03/29/23 10:57 80 16 92 Nasal Cannula 03/29/23 07:45 Nasal Cannula 03/29/23 07:42 83 17 94 Nasal Cannula 03/29/23 07:03 37.2 C 69 15 147/72 H 95 Nasal Cannula 03/29/23 02:53 71 24 93 O2 Flow Rate 03/29/23 10:57 2 03/29/23 07:45 3 03/29/23 07:42 2 03/29/23 07:03 3 03/29/23 02:53 3 Laboratory Results 03/29/23 05:42 03/29/23 05:42 PG Care Time/CCT Total # of Minutes Spent Total Time Spent with Patient: Total time spent is greater than 50% in coordination of care (as documented) at patient's floor/unit and/or counseling patient: Coding Level of Care Code 40110 SUB INP/OBS CARE 3/50MIN Diagnoses Acute on chronic respiratory failure with hypoxia J96.21 Rhinovirus infection B34.8 Headache R51.9 Headache chronicity pattern: unspecified pattern Headache type: unspecified Intractability: not intractable Acute exacerbation of chronic obstructive pulmonary disease J44.1 Lung transplant candidate Z76.82 Anxiety with depression F41.8 Sleep apnea, obstructive G47.33 (3) Headache Headache chronicity pattern: unspecified pattern Headache type: unspecified Intractability: not intractable Qualified Code(s): R51.9 - Headache, unspecified
[2023-03-29] MEDS: LORazepam 0.5 MG TAB PO PRN (20:23)
[2023-03-29] MEDS: AZITHROMYCIN 250 MG TAB PO SCH (20:23)
[2023-03-30] MEDS: methylPREDNISolone 60 MG in SYRINGE 0 ML IV SCH ×3 (01:38→17:05)
[2023-03-30] MEDS: ALBUT/IPRATROP 3MG/0.5MG NEB 3 ML VIAL NEB SCH ×4 (07:53→19:43)
[2023-03-30] MEDS: dilTIAZem HCL 180 MG CAPCR PO SCH (08:09)
[2023-03-30] MEDS: ESCITALOPRAM OXALATE 10 MG TAB PO SCH (08:10)
[2023-03-30] MEDS: ENOXAPARIN INJ 40 MG/0.4 ML SYR SQ SCH (08:10)
[2023-03-30] MEDS: guaiFENesin 600 MG TABCR PO SCH ×2 (08:11→20:37)
[2023-03-30] MEDS: FLUTICASONE PROPIONATE NA SPR 16 GM BTL SCH (08:12)
[2023-03-30] MEDS: FLUTICASONE FUROATE 100MCG 14 PUFFS/INHALER INH SCH (08:12)
[2023-03-30] MEDS: ROFLUMILAST 500 MCG TAB PO SCH (08:12)
[2023-03-30] MEDS: VALSARTAN 80 MG TAB PO SCH (08:13)
[2023-03-30] MEDS: UMECLIDINIUM/VILANTEROL 62.5/25MCG 7 PUFFS/INHALER INH SCH (08:13)
--- NOTE | 2023-03-30 11:42 | Hospitalist Progress Note ---
Date of Service March 30, 2023 Assessment & Plan (1) Acute on chronic respiratory failure with hypoxia: Plan: Oxygen per nasal cannula to maintain saturation greater than 90%. Avoid high oxygen saturations to help prevent CO2 retention. Treat underlying exacerbation of COPD. Chest CTA negative for PE and negative for pneumonia. Oxygen requirements have decreased (2) Rhinovirus infection: Plan: Likely cause of COPD exacerbation. Supportive care (3) Headache: Plan: Possible underlying sinusitis. She has been treated with Augmentin which has been discontinued on March 29 (4) Acute exacerbation of chronic obstructive pulmonary disease: Plan: Slowly but steadily improving with parenteral steroid therapy. Nebulizer treatments. Appears to be due to rhinovirus infection (5) Lung transplant candidate: Plan: She sees pulmonary medicine at [facility]. Continue current medical management (6) Anxiety with depression: Plan: Lorazepam as needed. Continue Lexapro (7) Sleep apnea, obstructive: Plan: Continue CPAP at bedtime Plan Hopeful discharge to home soon . Probably tomorrow, March 31 Admission and Anticipated Discharge Date Admission Date: March 26, 2023 Subjective Slow but steady improvement. No new problems. Daughter is at the bedside Review of Systems 2 Review of Systems: Constitutional-no fever or chills ENT-no blurred vision, no double vision, no epistaxis, no sore throat Respiratory-occasional nonproductive cough. Shortness of breath with minimal exertion. Cardiac-no palpitations, no chest pain, no syncope GI-no nausea, vomiting, diarrhea, melena, hematochezia -no urinary retention, no urinary incontinence, no dysuria, no hematuria Musculoskeletal-no joint pain, no muscle tenderness Skin-no bruising, no rashes, no pruritus Neuro-no isolated weakness, no paresthesia, no weakness Psych-no depression, no anxiety Physical Exam 2 Physical Exam: General-alert and oriented x3, no fevers, no chills HEENT-head atraumatic and normocephalic, pupils equal and reactive to light, extraocular muscles intact Neck-no lymphadenopathy or thyromegaly, trachea midline Chest-diminished breath sounds bilaterally. Bilateral end expiratory wheezing. No rhonchi. No dullness to percussion. Cardiac-regular rate and rhythm, normal S1 and S2 Abdomen-normal bowel sounds, nontender, no hepatosplenomegaly Extremities-no cyanosis, clubbing, or edema Neuro-cranial nerves II through XII intact, motor and sensory function within normal limits, strength symmetrical, no focal deficits Psych-normal affect, normal mood Results & Data Results & Data Vital Signs (Past 12 Hours) Vital Signs Temp Pulse Pulse Resp BP Pulse Ox O2 Del Method 03/30/23 11:08 78 16 95 Nasal Cannula 03/30/23 08:40 Nasal Cannula 03/30/23 08:12 37.1 C 80 15 156/76 H 95 Nasal Cannula 03/30/23 07:54 85 16 94 Nasal Cannula 03/30/23 03:00 61 24 96 03/30/23 00:32 82 21 92 03/30/23 00:04 36.7 C 62 18 140/66 97 Nasal Cannula O2 Flow Rate 03/30/23 11:08 3 03/30/23 08:40 3 03/30/23 08:12 3 03/30/23 07:54 3 03/30/23 03:00 3 03/30/23 00:32 3 03/30/23 00:04 3 Laboratory Results 03/29/23 05:42 03/29/23 05:42 PG Care Time/CCT Total # of Minutes Spent Total Time Spent with Patient: Total time spent is greater than 50% in coordination of care (as documented) at patient's floor/unit and/or counseling patient: Coding Level of Care Code 94955 SUB INP/OBS CARE 2/35MIN Diagnoses Acute on chronic respiratory failure with hypoxia J96.21 Rhinovirus infection B34.8 Headache R51.9 Headache chronicity pattern: unspecified pattern Headache type: unspecified Intractability: not intractable Acute exacerbation of chronic obstructive pulmonary disease J44.1 Lung transplant candidate Z76.82 Anxiety with depression F41.8 Sleep apnea, obstructive G47.33 (3) Headache Headache chronicity pattern: unspecified pattern Headache type: unspecified Intractability: not intractable Qualified Code(s): R51.9 - Headache, unspecified
[2023-03-30] MEDS: AZITHROMYCIN 250 MG TAB PO SCH (20:36)
[2023-03-31] MEDS: methylPREDNISolone 60 MG in SYRINGE 0 ML IV SCH ×2 (01:21→10:34)
[2023-03-31] MEDS: ALBUT/IPRATROP 3MG/0.5MG NEB 3 ML VIAL NEB SCH ×2 (07:34→10:59)
[2023-03-31] MEDS: FLUTICASONE FUROATE 100MCG 14 PUFFS/INHALER INH SCH (08:03)
[2023-03-31] MEDS: FLUTICASONE PROPIONATE NA SPR 16 GM BTL SCH (08:03)
[2023-03-31] MEDS: UMECLIDINIUM/VILANTEROL 62.5/25MCG 7 PUFFS/INHALER INH SCH (08:03)
[2023-03-31] MEDS: ROFLUMILAST 500 MCG TAB PO SCH (08:04)
[2023-03-31] MEDS: ENOXAPARIN INJ 40 MG/0.4 ML SYR SQ SCH (08:04)
[2023-03-31] MEDS: dilTIAZem HCL 180 MG CAPCR PO SCH (08:04)
[2023-03-31] MEDS: ESCITALOPRAM OXALATE 10 MG TAB PO SCH (08:05)
[2023-03-31] MEDS: guaiFENesin 600 MG TABCR PO SCH (08:05)
[2023-03-31] MEDS: VALSARTAN 80 MG TAB PO SCH (08:05)
--- NOTE | 2023-03-31 10:37 | Discharge Summary ---
Date of Service March 31, 2023 Admission HPI Per Admitting Provider The patient is a 67-year-old female with a past medical history including history of tobacco use disorder, paroxysmal atrial tachycardia, acute respiratory failure with hypoxia, eustachian tube dysfunction, COPD, acid reflux, COPD exacerbations, acute pericardial effusion, pulmonary nodules, ALHAJI, anxiety with depression. Her most recent hospitalization was from 01/10- 01/18/2023 for acute on chronic respiratory failure with hypoxia secondary to parainfluenza infection. Patient reports that she had been doing at her baseline since that time, until the past week and a half when she developed similar symptoms of shortness of breath, dyspnea on exertion. She reports that she has been seen at [facility] for possible lung transplant, and is to undergo workup for that process in a few weeks. Principal Diagnosis Rhinovirus infection, acute exacerbation COPD, acute on chronic hypoxic respiratory failure, acute sinusitis with headache Discharge Exam General-alert and oriented x3, no fevers, no chills HEENT-head atraumatic and normocephalic, pupils equal and reactive to light, extraocular muscles intact Neck-no lymphadenopathy or thyromegaly, trachea midline Chest-diminished breath sounds bilaterally. Bilateral end expiratory wheezing. No rhonchi. No dullness to percussion. Cardiac-regular rate and rhythm, normal S1 and S2 Abdomen-normal bowel sounds, nontender, no hepatosplenomegaly Extremities-no cyanosis, clubbing, or edema Neuro-cranial nerves II through XII intact, motor and sensory function within normal limits, strength symmetrical, no focal deficits Psych-normal affect, normal mood Discharge Data Allergies Allergy/AdvReac Type Severity Reaction Status Date / Time aspirin AdvReac Intermediate GI SYMPTOMS Verified 03/26/23 17:26 Consultations 03/26/23 20:10 ED Decision to Admit Stat Ordered Studies 03/26/23 17:13 CT angio chest PE protocol Stat Hospital Course (1) Acute on chronic respiratory failure with hypoxia: Oxygen per nasal cannula to maintain saturation greater than 90%. Avoid high oxygen saturations to help prevent CO2 retention. Treat underlying exacerbation of COPD. Chest CTA negative for PE and negative for pneumonia. Oxygen requirements have decreased to her baseline (2) Rhinovirus infection: Likely cause of COPD exacerbation. Supportive care (3) Headache: Possible underlying sinusitis. She has been treated with Augmentin which has been discontinued on March 29 (4) Acute exacerbation of chronic obstructive pulmonary disease: Slowly but steadily improving with parenteral steroid therapy. Nebulizer treatments. Appears to be due to rhinovirus infection . She will be discharged on a prednisone tapering dose (5) Lung transplant candidate: She sees pulmonary medicine at [facility]. Continue current medical management (6) Anxiety with depression: Lorazepam as needed. Continue Lexapro (7) Sleep apnea, obstructive: Continue CPAP at bedtime Plan Home today, March 31 Total Time Total Time Spent Total Time Spent (In Minutes): 45 minutes Discharge Plan Discharge Items Patient Disposition: Home - Self-Care Reason For Visit: ACUTE ON CHRONIC RESP FAIL W/ HYPOXIA, RHINOVIRUS, Discharge Diagnosis: Acute rhinovirus infection, acute exacerbation COPD, acute on chronic hypoxic respiratory failure, acute sinusitis with head Activity: Resume your previous activity Non-emergency contact: Primary Care Provider and [employer] Call non-emergency contact if: your symptoms worsen Follow-up/Referrals: Maya Weller DO [Primary Care Provider] - Diet: Regular Addtl Attending Provider Instructions: Take prednisone in a tapering dose fashion as directed Pending Studies at Discharge: No Stand-Alone Forms: My [facility] [employer], Smoking Cessation Medications and DC Order Prescriptions: New lorazepam 0.5 mg Tablet 0.5 mg PO Q6H PRN (Reason: anxiety) Qty: 20 0RF prednisone 10 mg tablet See Rx Instructions .ROUTE .COMPLEX Qty: 12 0RF Rx Instructions: 10 mg orally 3 times a day for 2 days, then 10 mg twice a day for 2 days, then 10 mg once a day for 2 days, then stop diltiazem HCl 180 mg Capsule,Extended Release 24hr 180 mg PO QAM Qty: 0 0RF Continued roflumilast 500 mcg tablet 500 mcg PO DAILY Rx Instructions: To be started after 28 day trial of 250 mcg dose Trelegy Ellipta 100-62.5-25 mcg blister with device 1 inh inhalation DAILY Qty: 28 0RF albuterol sulfate [ProAir HFA] 90 mcg/actuation HFA aerosol inhaler 2 puff Inhalation Q4 PRN (Reason: Shortness Of Breath Or Wheezing) Qty: 8.5 3RF ipratropium-albuterol 0.5 mg-3 mg(2.5 mg base)/3 mL solution for nebulization 3 ml INH QID PRN (Reason: Shortness Of Breath) Qty: 360 5RF (DME) CPAP Machine Misc See Rx Instructions .MEDSUPPLY Qty: 1 0RF Rx Instructions: Auto-titration CPAP with pressure range between 5 cm H2O and 15 cm H2O with humidification. Lifetime need. (DME) CPAP Supplies Misc See Rx Instructions .MEDSUPPLY Qty: 1 0RF Rx Instructions: Refitting of the mask. G47.33 (DME) Portable Oxygen Misc See Rx Instructions .Route Qty: 1 0RF Rx Instructions: portable oxygen concentrator- 3LPM on exertion via n/c. SILVIA:99 valsartan 80 mg tablet 80 mg PO DAILY ergocalciferol (vitamin D2) 1,250 mcg (50,000 unit) capsule 1,250 mcg PO WK lidocaine 5 % adhesive patch,medicated 1 patch transdermal QAM PRN (Reason: Pain) escitalopram oxalate [Lexapro] 10 mg tablet 15 mg PO QAM albuterol sulfate 2.5 mg /3 mL (0.083 %) solution for nebulization 2.5 mg continuous nebulization Q6H PRN (Reason: Wheezing) Discharge Orders: Discharge Order (Routine); Ordered 03/31/23 Ordered By: Americo Traore Admission Data Admit Date/Time: 03/26/23 21:02 Attending Provider: Americo Traore Admit Provider: Blaze Smith Primary Care Provider: Maya Weller Other Providers: Blaze Smith Coding Level of Care Code 93382 INP/OBS DISCH >30 MIN Diagnoses Acute on chronic respiratory failure with hypoxia J96.21 Rhinovirus infection B34.8 Headache R51.9 Headache chronicity pattern: unspecified pattern Headache type: unspecified Intractability: not intractable Acute exacerbation of chronic obstructive pulmonary disease J44.1 Lung transplant candidate Z76.82 Anxiety with depression F41.8 Sleep apnea, obstructive G47.33
== END 2023-03-31 11:59 | disposition home or self-care (01) | DRG 190 ==
LOC: ED 16:33 → 4W 21:02 → SUATTDRO 21:02 → 4W 22:07 → 3E 03-27 17:05

== ENCOUNTER 2023-08-01 18:09 | Inpatient (IN) ==
--- NOTE | 2023-08-01 18:13 | ED Triage Note ---
Date of Service August 01, 2023 Provider in Triage Author: Gamaliel Griffin A History of Present Illness This patient was briefly evaluated while in triage. An abbreviated physical exam was performed. This patient is a 67-year-old Female who presents to the ED for evaluation of SOB and chest heaviness. Has significant hx of COPD. Was here last week and feels the same as before. Physical Exam Limited Triage Exam: VITALS: Vitals are noted on the nurse's note and reviewed by myself. Vital signs stable. GENERAL: White female in NAD. She is seated in a wheelchair. HEART: Regular rate and rhythm without murmurs gallops or rubs. LUNGS:Diminished throughout NEURO: Patient was alert and oriented to person place and time. CN II through XII grossly intact. Initial orders for labs and / or imaging were placed and patient was placed in the waiting area until a bed is available. Please see further documentation for the full ED course. MDM / Impression Impression Impression: Acute exacerbation of chronic obstructive pulmonary disease (COPD)
[2023-08-01 18:58] LABS: Base Excess VBG 2.5 mEq/L; HCO3 VBG 28 mmol/L; PCO2 VBG 45 mmHg (38-50); PO2 VBG 57 mmHg
[2023-08-01 19:09] LABS: Basophils # (auto) 0.03 K/uL (0.00-0.20); Basophils % (auto) 0.2 %; Eosinophils # (auto) 0.04 K/uL (0.00-0.50); Eosinophils % (auto) 0.3 %; Hematocrit (blood only) 34.7 % (37.0-47.0); Hemoglobin 11.6 g/dl (12.0-16.0); Immature Granulocytes # (auto) 0.07 K/uL (0.01-0.20); Immature Granulocytes % (auto) 0.5 %; Lymphocytes # (auto) 1.69 K/uL (1.20-3.40); Lymphocytes % (auto) 12.2 %; Mean Corpuscular Hgb Conc 33.4 g/dL (32.0-36.0); Mean Corpuscular Volume 86.8 fL (80.0-100.0); Mean Platelet Volume 9.6 fL (9.4-12.4); Monocytes # (auto) 1.15 K/uL (0.11-0.59); Monocytes % (auto) 8.3 %; Neutrophils # (auto) 10.84 K/uL (1.40-6.50); Neutrophils % (auto) 78.5 %; Platelet Count 326 K/uL (130-400); RDW Coefficient of Variation 12.4 % (11.5-14.5); RDW Standard Deviation 39.4 fL (36.4-46.3); White Blood Count 13.82 K/ul (4.8-10.8)
[2023-08-01] MEDS: MAGNESIUM SULFATE / D5W 1 GM/100 ML BAG IV STA (19:18)
[2023-08-01] MEDS: methylPREDNISolone 125 MG/2 ML VIAL IV STA ×2 (19:19→23:09)
[2023-08-01] MEDS: ALBUT/IPRATROP 3MG/0.5MG NEB 3 ML VIAL NEB ONE ×2 (19:19→23:01)
[2023-08-01] MEDS: SODIUM CHLORIDE 0.9% 1,000 ML IV SCH (19:19)
--- NOTE | 2023-08-01 19:20 | Emergency Department Note ---
Impression & Plan Acute exacerbation of chronic obstructive pulmonary disease (COPD), Chronic respiratory failure with hypoxia, Failure of outpatient treatment ED Provider Note ED Provider Note NAME: AVIVA MIMS AGE:67 SEX: Female : 1955 ARRIVES VIA: Private vehicle INFORMANT: Patient ED PROVIDER(s): Apple Handy DO CHIEF COMPLAINT: Increased difficulty breathing HPI: This is a 67-year-old female with a history of COPD on chronic home oxygen who presents to the emergency department due to concern for worsening difficulty breathing. Patient states she was seen and evaluated here last week, but did improve with treatment here and was discharged home on steroids and azithromycin. Patient with a history of COPD and does follow with pulmonology. She is currently being evaluated by [facility] to be possibly placed on their transplant list. Patient states she has been doing her usual home MDI and nebs along with her other routine meds. She does wear 3.5 L/min chronically, but states due to increased dyspnea with any exertion recently she was turned up to 4. She states she feels as though she has had a worsening cough, and sputum is intermittently yellow. No hemoptysis. She denies fevers, chills, abdominal pain, vomiting or diarrhea. She states she feels a sense of heaviness and tightness in her chest. PAST MEDICAL HISTORY:See Below PAST SURGICAL HISTORY:See Below FAMILY HISTORY:See Below SOCIAL HISTORY:See Below HOME MEDICATIONS:See Below ALLERGIES:See Below VITALS:See Below PHYSICAL EXAMINATION: GENERAL: alert, well appearing, well nourished, no distress, non-toxic EYE EXAM: normal conjunctiva, PERRL and EOM's grossly intact OROPHARYNX: no exudate, no erythema, lips, buccal mucosa, and tongue normal and mucous membranes are moist NECK: supple, no nuchal rigidity, no adenopathy, non-tender LUNGS: Normal chest wall mechanics, increased work of breathing, mild tachypnea, decreased air movement bilaterally with bilateral expiratory wheeze, worse on the left HEART: no murmurs, S1 normal and S2 normal ABDOMEN: abdomen soft, non-tender, normo-active bowel sounds, no masses, no rebound or guarding. BACK: Back is symmetrical on inspection and there is no deformity, no midline tenderness, no CVA tenderness. SKIN: no rashes, petechiae, orbruising UPPER EXTREMITIES: upper extremities are grossly normal. FROM, nml pulses b/l. LOWER EXTREMITIES: No pitting edema. FROM, nml pulses b/l. NEURO EXAM: Normal sensorium, cranial nerves II-XII grossly intact, normal speech, no facial droop,nogross weakness of arms, no gross weakness of legs. Gross sensation intact. No ataxia. Vital Signs: reviewed and remarkable Differential Diagnosis: pneumonia, bronchitis, COPD/Asthma exacerbation, pneumothorax, pulmonary embolism, congestive heart failure, acute coronary syndrome, as well as others were considered MEDICAL DECISION MAKING: This is a 67-year-old female with significant COPD history already on chronic home oxygen who presents emergency department due to concern for worsening symptoms despite recent evaluation here with initiation of antibiotic and steroid therapy. Patient did have to increase her oxygen at home and has felt increased dyspnea with exertion despite use of her usual medications and respiratory treatments. Labs drawn and sent, IV established, EKG and chest ray performed bedside interpreted by me and patient monitored on telemetry. She was started on an hour-long nebulizer treatment and did have some improvement of the initial wheezing noted. Patient still with markedly diminished breath sounds. Patient given IV magnesium additionally. She was started on gentle IV fluid hydration. Repeat labs and chest x-ray reassuring. Patient started on a second hour-long nebulizer treatment Case discussed with the hospitalist team for additional evaluation and management. Patient was rechecked multiple times, no other evolving adventitious lung sounds noted. No ectopy or dysrhythmia noted on telemetry. Patient verbalized understanding of all results and was in agreement with the plan. She was given additional dose of IV Solu-Medrol. Given positive nasal swab for enterovirus/rhinovirus, additional antibiotic choice deferred to admitting hospitalist team. Consultation(s): 2199: Discussed with Dr. Smith, [facility] hospitalist team, for additional evaluation and management. ER Treatment Provided: See below Diagnostics Interpreted By Me: -ECG: Normal sinus at 83, normal axis, normal intervals, no acute ST/T wave changes -Cardiac Monitoring: An order was placed for continuous cardiac monitoring. The monitor shows a rate of 88 with normal sinus rhythm. -Laboratory studies: As stated above and show below. -Imaging studies: X-ray Chest: A single view study of the chest was reviewed and was negative for cardiomegaly, focal infiltrate, effusion, pulmonary edema, or wide mediastinum. Triage Nursing Note Reviewed Prior/Outside Records Reviewed Critical Care: Critical care of 39 min performed to assess and manage high likelihood of life- threatening acute hypoxic respiratory failure and COPD exacerbation, involving labs and imaging performed with assessment to evaluate dyspnea diagnosis with frequent reassessment. This time includes bedside time, treatment discussions with patient/family/consultants, documentation time and excludes procedure time. Past Med/Surg History Medical History Family history of paroxysmal atrial tachycardia Lung transplant candidate Sacroiliitis History of COVID-19 (~2021) x3 sob, cough, fatigue; resolved History of recent pneumonia (~09/2022) Multiple pulmonary nodules no biopsies, monitored Anxiety with depression SOB (shortness of breath) "all the time" Chronic respiratory failure Chronic obstructive pulmonary disease with hypoxia 3L O2 wa, [facility] Pulm Dr. Dhillon Sleep apnea, obstructive CPAP COPD exacerbation [facility] 03/2023 Surgical History Hx of cardiac catheterization (~2022) Had in [place] as part of work up for [facility] to get on Lung Transplant list, no stents Hx of colonoscopy with polypectomy Hx of bilateral cataract extraction History of partial hysterectomy History of carpal tunnel surgery of right wrist History of broken collarbone sx to repair History of tooth extraction all teeth H/O partial thyroidectomy (~1989) d/t hemorrhaging?--unknown cause, no meds Family History Mother , from ovarian cancer Cancer Ovarian Sister Cancer Ovarian Father COPD (chronic obstructive pulmonary disease) Other No family history of adverse response to anesthesia Social History Smoking Status: Former smoker Tobacco Type: Cigarettes Age Started Using Tobacco: 17; Age Quit Using Tobacco: 64; packs per day: 1; Cigarettes Per Day: < 1PPD; Second Hand Exposure: No; Do You Dip or Chew Tobacco: No; Hx Alcohol Use: No Hx Substance Use: No Preferred Language: Croatian 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 Ability: Effective Die Sizer 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 Beliefs That Will Affect Care: None marital status: Current Living Situation: Family Current Living Situation Comment: Lives with daughter Virgen Feels Safe at Home: Yes Safety Concerns: Feels Safe At This Time Assistive Devices: CPAP, Denture - Upper, Denture - Lower, Oxygen - Continuous and Wheelchair Allergies Allergies Allergy/AdvReac Type Severity Reaction Status Date / Time aspirin AdvReac Intermediate GI SYMPTOMS Verified 08/01/23 20:55 Home Meds Home Medications Medication Instructions Recorded Confirmed escitalopram oxalate 10 mg tablet 15 mg PO QAM 08/05/22 08/01/23 (Lexapro) ergocalciferol (vitamin D2) 1,250 1,250 mcg PO WK 03/26/23 08/01/23 mcg (50,000 unit) capsule valsartan 80 mg tablet 80 mg PO QAM 03/26/23 08/01/23 azithromycin 250 mg tablet 250 mg PO 3XWK 07/06/23 08/01/23 diphenhydramine HCl 50 mg capsule 50 mg PO DAILY PRN allergies 07/06/23 08/01/23 omeprazole magnesium 20 mg 20 mg PO QAM 07/06/23 08/01/23 tablet,delayed release (Prilosec OTC) roflumilast 500 mcg tablet 500 mcg PO QAM 07/06/23 08/01/23 Previous Rx's Medication Instructions Recorded CPAP Machine #1 ea 12/06/19 CPAP Supplies #1 ea 05/11/21 Portable Oxygen E0431 #1 ea 09/15/22 fluticasone fur. 100 mcg-umeclid 1 inh inhalation DAILY #28 ea 06/08/23 62.5 mcg-vilant 25 mcg inhalat.powder (Trelegy Ellipta) ipratropium 0.5 mg-albuterol 3 mg 3 ml inhalation QID PRN Shortness 06/08/23 (2.5 mg base)/3 mL nebulization Of Breath #360 mL soln albuterol sulfate 90 mcg/actuation 2 puff inhalation Q4H PRN 06/21/23 aerosol inhaler shortness of breath or wheezing #8.5 grams Results & Data (ED) Vital Signs Vital Signs - 24 hr 08/01/23 18:12 08/01/23 19:12 08/01/23 19:31 Temperature 36.8 C Temperature Source Temporal Artery Scan Pulse Rate 91 H 85 Pulse Rate [Right Finger] 85 Pulse Rhythm [Right Finger] Regular Pulse Strength [Right Finger] Normal Respiratory Rate 16 24 Respiratory Effort / Characteristics Non-Labored Respiratory Depth Normal Respiratory Pattern Regular Blood Pressure 147/83 H Blood Pressure [Right Arm] 179/103 H Blood Pressure Mean 104 Blood Pressure Mean [Right Arm] 128 Blood Pressure Position [Right Arm] Sitting Pulse Oximetry 93 95 Oxygen Delivery Method Nasal Cannula Nasal Cannula Oxygen Flow Rate 3.5 4 Sepsis Recent Fever Within 48 Hours No Sepsis New/Unexplained Change in Mental Status No Sepsis Action Taken by Nursing No Action Required Laboratory Data 08/02/23 07:18 08/02/23 07:18 Lab Results 08/01/23 08/01/23 Range/Units 18:30 18:43 WBC 13.82 H (4.8-10.8) K/ul RBC 4.00 L (4.20-5.40) M/uL Hgb 11.6 L (12.0-16.0) g/dl Hct 34.7 L (37.0-47.0) % MCV 86.8 (80.0-100.0) fL MCH 29.0 (25.0-34.0) pg MCHC 33.4 (32.0-36.0) g/dL RDW Std Deviation 39.4 (36.4-46.3) fL RDW Coeff of Audrey 12.4 (11.5-14.5) % Plt Count 326 (130-400) K/uL MPV 9.6 (9.4-12.4) fL Immature Gran % (Auto) 0.5 % Neut % (Auto) 78.5 % Lymph % (Auto) 12.2 % Randolph % (Auto) 8.3 % Eos % (Auto) 0.3 % Baso % (Auto) 0.2 % Neut # (Auto) 10.84 H (1.40-6.50) K/uL Lymph # (Auto) 1.69 (1.20-3.40) K/uL Randolph # (Auto) 1.15 H (0.11-0.59) K/uL Eos # (Auto) 0.04 (0.00-0.50) K/uL Baso # (Auto) 0.03 (0.00-0.20) K/uL Immature Gran # (Auto) 0.07 (0.01-0.20) K/uL VBG pH 7.40 (7.36-7.41) VBG pCO2 45 (38-50) mmHg VBG pO2 57 mmHg VBG HCO3 28 mmol/L VBG O2 Saturation 86.0 % VBG Base Excess 2.5 mEq/L Sodium 141 (136-145) mmol/L Potassium 3.2 L (3.5-5.1) mmol/L Chloride 106 (98-107) mmol/L Carbon Dioxide 28 (21-32) mmol/L Anion Gap 7 (3-11) BUN 18 (6-23) mg/dl Creatinine 0.84 (0.6-1.2) mg/dl Est Cr Clr Drug Dosing Not Reportable Est GFR ( Amer) 82.8 ml/min Est GFR (Non-Af Amer) 71.4 ml/min BUN/Creatinine Ratio 21.4 H (10-20) Glucose 101 H (70-99(Fasting)) mg/dl Calcium 8.6 (8.6-10.3) mg/dl Magnesium 2.1 (1.7-2.4) mg/dl Total Bilirubin 0.4 (0.2-1.0) mg/dl AST 9 L (13-39) U/L ALT 13 (7-52) U/L Alkaline Phosphatase 106 H (34-104) U/L Troponin I High Sens 5.6 (0-14) pg/ml B-Natriuretic Peptide 75 (0-100) pg/ml Total Protein 6.4 (6.0-8.3) gm/dl Albumin 3.8 (3.4-5.0) gm/dl Globulin 2.6 (2.5-4.0) gm/dl Albumin/Globulin Ratio 1.5 (0.9-2) Adenovirus (PCR) Not Detected (NotDetected) B. pertussis DNA (PCR) Not Detected (NotDetected) B.parapertussis DNA PCR Not Detected (NotDetected) C. pneumoniae DNA (PCR) Not Detected (NotDetected) Coronavirus OC43 (PCR) Not Detected (NotDetected) Coronavirus HKU1 (PCR) Not Detected (NotDetected) Coronavirus 229E (PCR) Not Detected (NotDetected) SARS-CoV-2 (PCR) Not Detected (NotDetected) Coronavirus NL63 (PCR) Not Detected (NotDetected) Human Metapneumovir PCR Not Detected (NotDetected) Influenza Type A (PCR) Not Detected (NotDetected) Influenza Type B (PCR) Not Detected (NotDetected) M. pneumoniae (PCR) Not Detected (NotDetected) Parainfluenza 1 (PCR) Not Detected (NotDetected) Parainfluenza 2 (PCR) Not Detected (NotDetected) Parainfluenza 3 (PCR) Not Detected (NotDetected) Parainfluenza 4 (PCR) Not Detected (NotDetected) RSV (PCR) Not Detected (NotDetected) Entero/Rhino (PCR) DETECTED A (NotDetected) Administered Medications Acetaminophen (Acetaminophen 325 Mg Tab) 650 mg PO Q4H PRN PRN Reason: Pain or Fever Stop: 09/01/23 00:09 Last Admin: 08/02/23 16:47 Dose: 650 mg Documented By: Albuterol (Albut/Ipratrop 3mg/0.5mg Neb 3 Ml Vial) 3 ml NEB QIDR QIAN; Protocol Stop: 09/01/23 06:59 Last Admin: 08/02/23 19:24 Dose: 3 ml Documented By: Admin: 08/02/23 14:13 Dose: 3 ml Documented By: Admin: 08/02/23 10:25 Dose: 3 ml Documented By: Admin: 08/02/23 07:16 Dose: 3 ml Documented By: MARYAM Albuterol (Albut/Ipratrop 3mg/0.5mg Neb 3 Ml Vial) 3 ml NEB Q2H PRN; Protocol PRN Reason: SOB/WHEEZING Stop: 08/31/23 22:47 Last Admin: 08/02/23 23:11 Dose: 3 ml Documented By: Admin: 08/02/23 04:02 Dose: 3 ml Documented By: CRISELDA Enoxaparin Sodium (Enoxaparin Inj 40 Mg/0.4 Ml Syr) 40 mg SQ Q24H [facility] Stop: 09/01/23 05:59 Last Admin: 08/02/23 06:08 Dose: 40 mg Documented By: JEANNIE Escitalopram Oxalate (Escitalopram Oxalate 10 Mg Tab) 15 mg PO QAM [facility] Stop: 09/01/23 08:59 Last Admin: 08/02/23 08:35 Dose: 15 mg Documented By: Fluticasone Furoate (Fluticasone Furoate 100mcg 14 Puffs/Inhaler) 1 puffs INH DAILY QIAN Stop: 09/01/23 08:59 Last Admin: 08/02/23 08:32 Dose: 1 puffs Documented By: Guaifenesin (Guaifenesin 600 Mg Tabcr) 1,200 mg PO Q12H QIAN Stop: 09/01/23 08:59 Last Admin: 08/02/23 20:34 Dose: 1,200 mg Documented By: Admin: 08/02/23 08:36 Dose: 1,200 mg Documented By: Piperacillin Sod/Tazobactam (Sod 4.5 gm/ Dextrose) 100 mls @ 25 mls/hr IV Q8H QIAN; Protocol Stop: 08/09/23 05:59 Last Admin: 08/02/23 22:41 Dose: 25 mls/hr Documented By: Infusion: 08/02/23 18:01 Dose: Infused Documented By: Admin: 08/02/23 13:55 Dose: 25 mls/hr Documented By: Infusion: 08/02/23 10:05 Dose: Infused Documented By: Admin: 08/02/23 06:09 Dose: 25 mls/hr Documented By: JEANNIE Azithromycin 500 mg/ Dextrose 255 mls @ 125 mls/hr IV Q24H QIAN Stop: 08/09/23 20:59 Last Infusion: 08/02/23 22:50 Dose: Infused Documented By: Admin: 08/02/23 20:34 Dose: 125 mls/hr Documented By: JEANNIE Methylprednisolone 60 mg/ (Syringe) 0.96 mls @ 1.5 mls/min IV Q8H QIAN Stop: 09/01/23 07:59 Last Admin: 08/03/23 00:17 Dose: 1.5 mls/min Documented By: Admin: 08/02/23 16:44 Dose: 1.5 mls/min Documented By: Admin: 08/02/23 08:29 Dose: 1.5 mls/min Documented By: Miscellaneous (Remove Lidoderm Patch) 1 each N/A DAILY@2100 QIAN Stop: 09/01/23 20:59 Last Admin: 08/02/23 20:34 Dose: 1 each Documented By: JEANNIE Pantoprazole Sodium (Pantoprazole 40 Mg Tab) 40 mg PO QAM [facility] Stop: 09/01/23 08:59 Last Admin: 08/02/23 08:37 Dose: 40 mg Documented By: Roflumilast (Roflumilast 500 Mcg Tab) 500 mcg PO QAM QIAN Stop: 09/01/23 08:59 Last Admin: 08/02/23 08:37 Dose: 500 mcg Documented By: Umeclidinium/Vilanterol (Umeclidinium/Vilanterol 62.5/25mcg 7 Puffs/Inhaler) 1 puffs INH DAILY QIAN Stop: 09/01/23 08:59 Last Admin: 08/02/23 08:31 Dose: 1 puffs Documented By: Valsartan (Valsartan 80 Mg Tab) 80 mg PO QAM QIAN Stop: 09/01/23 08:59 Last Admin: 08/02/23 08:36 Dose: 80 mg Documented By: Discontinued Medications Albuterol (Albut/Ipratrop 3mg/0.5mg Neb 3 Ml Vial) 12 ml NEB ONE ONE; Protocol Stop: 08/01/23 19:06 Last Admin: 08/01/23 19:19 Dose: 12 ml Documented By: LAVERNE Albuterol (Albut/Ipratrop 3mg/0.5mg Neb 3 Ml Vial) 12 ml NEB ONE ONE; Protocol Stop: 08/01/23 21:55 Last Admin: 08/01/23 23:01 Dose: Not Given Documented By: GIBSON Guaifenesin (Guaifenesin 600 Mg Tabcr) 1,200 mg PO NOW STA Stop: 08/01/23 22:37 Last Admin: 08/01/23 23:09 Dose: 1,200 mg Documented By: GIBSON Magnesium Sulfate/Dextrose (Magnesium Sulfate / D5w) 1 gm in 100 mls @ 100 mls/hr IV NOW STA Stop: 08/01/23 20:05 Last Infusion: 08/01/23 20:22 Dose: Infused Documented By: Admin: 08/01/23 19:18 Dose: 100 mls/hr Documented By: LAVERNE Sodium Chloride (Nss) 1,000 mls @ 125 mls/hr IV .Q8H QIAN Stop: 08/31/23 19:14 Last Infusion: 08/02/23 00:17 Dose: Infused Documented By: Admin: 08/01/23 19:19 Dose: 125 mls/hr Documented By: LAVERNE Azithromycin 500 mg/ Dextrose 255 mls @ 127.5 mls/hr IV NOW STA Stop: 08/02/23 00:33 Last Infusion: 08/02/23 02:30 Dose: Infused Documented By: Admin: 08/02/23 00:30 Dose: 127.5 mls/hr Documented By: JEANNIE Piperacillin Sod/Tazobactam (Sod 4.5 gm/ Dextrose) 100 mls @ 200 mls/hr IV NOW ONE; Protocol Stop: 08/01/23 23:03 Last Infusion: 08/01/23 23:41 Dose: Infused Documented By: Admin: 08/01/23 23:10 Dose: 200 mls/hr Documented By: GIBSON Potassium Chloride/Sodium Chloride (Normal Saline W/20 Meq Kcl) 20 meq in 1,000 mls @ 100 mls/hr IV .Q10H QIAN; Protocol Stop: 08/02/23 08:44 Last Infusion: 08/02/23 12:25 Dose: Infused Documented By: Admin: 08/02/23 02:15 Dose: 100 mls/hr Documented By: JEANNIE Lidocaine (Lidocaine 5% 1 Patch) 1 patch TD NOW STA Stop: 08/02/23 14:22 Last Admin: 08/02/23 14:46 Dose: 1 patch Documented By: Methylprednisolone (Methylprednisolone 125 Mg/2 Ml Vial) 60 mg IV NOW STA Stop: 08/01/23 19:07 Last Admin: 08/01/23 19:19 Dose: 60 mg Documented By: LAVERNE Methylprednisolone (Methylprednisolone 125 Mg/2 Ml Vial) 60 mg IV NOW STA Stop: 08/01/23 22:35 Last Admin: 08/01/23 23:09 Dose: 60 mg Documented By: GIBSON Discharge Plan Visit Data Chief Complaint: Shortness of Breath/Dyspnea Stated Complaint: SOB ED Provider: Apple Handy Discharge Problem: Acute exacerbation of chronic obstructive pulmonary disease (COPD), Chronic respiratory failure with hypoxia, Failure of outpatient treatment Patient Disposition: Admitted As Inpatient Discharge Instructions Interventions: ED Discharge Assessment Last Done: 08/01/23 23:54
[2023-08-01 19:25] LABS: Alanine Aminotransferase 13 U/L (7-52); Albumin Globulin Ratio 1.5 (0.9-2); Albumin Level 3.8 gm/dl (3.4-5.0); Alkaline Phosphatase 106 U/L (34-104); Anion Gap 7 (3-11); Aspartate Aminotransferase 9 U/L (13-39); BUN Creatinine Ratio 21.4 (10-20); Bilirubin,Total 0.4 mg/dl (0.2-1.0); Blood Urea Nitrogen 18 mg/dl (6-23); Calcium 8.6 mg/dl (8.6-10.3); Carbon Dioxide 28 mmol/L (21-32); Chloride 106 mmol/L (98-107); Est GFR (African American) 82.8 ml/min; Est GFR (Non-African American) 71.4 ml/min; Globulin 2.6 gm/dl (2.5-4.0); Glucose 101 mg/dl (70-99(Fasting)); Magnesium 2.1 mg/dl (1.7-2.4); Potassium 3.2 mmol/L (3.5-5.1); Sodium 141 mmol/L (136-145); Total Protein 6.4 gm/dl (6.0-8.3)
[2023-08-01 19:32] LABS: Troponin I High Sensitivity 5.6 pg/ml (0-14)
[2023-08-01 19:49] LABS: Adenovirus PCR Not Detected (NotDetected); Bordetella parapertussis PCR Not Detected (NotDetected); Bordetella pertussis PCR Not Detected (NotDetected); Chlamydia pneumoniae PCR Not Detected (NotDetected); Coronavirus 229E PCR Not Detected (NotDetected); Coronavirus CoV-2 (COVID19)PCR Not Detected (NotDetected); Coronavirus HKU1 PCR Not Detected (NotDetected); Coronavirus NL63 PCR Not Detected (NotDetected); Coronavirus OC43PCR Not Detected (NotDetected); Human Metapneumovirus PCR Not Detected (NotDetected); Influenza A PCR Not Detected (NotDetected); Influenza B PCR Not Detected (NotDetected); Mycoplasma pneumoniae PCR Not Detected (NotDetected); Parainfluenza Virus 1 PCR Not Detected (NotDetected); Parainfluenza Virus 2 PCR Not Detected (NotDetected); Parainfluenza Virus 3 PCR Not Detected (NotDetected); Parainfluenza Virus 4 PCR Not Detected (NotDetected); Respiratory Syncytial VirusPCR Not Detected (NotDetected); Rhinovirus/Enterovirus PCR DETECTED (NotDetected)
--- NOTE | 2023-08-01 22:59 | History & Physical Report ---
Date of Service August 01, 2023 Assessment & Plan (1) Acute on chronic respiratory failure with hypoxia: (2) Acute exacerbation of chronic obstructive pulmonary disease (COPD): (3) Rhinovirus infection: (4) Failure of outpatient treatment: (5) History of tobacco use: (6) Lung transplant candidate: (7) Anxiety with depression: (8) Sleep apnea, obstructive: Plan Acute on chronic respiratory failure with hypoxia/COPD exacerbation/enterovirus/rhinovirus infection/lung transplant candidate- Send sputum Gram stain, culture and sensitivity. Solu-Medrol 120 mg IV in ED followed by 60 mg IV every 8 hours Zosyn 4.5 g IV every 8 hours Azithromycin 500 mg IV every 24 hours Guaifenesin extended release 1200 mg p.o. twice daily Duonebs every 4 hours while awake and every 2 hours when necessary. Did receive magnesium sulfate 1 g IV in the ED Continue Roflumilast 500 mcg every morning Hypokalemia- Potassium 3.2 on admission Placing on NSS + KCl 20 mill equivalents at 100 mL/h x 1 L Recheck laboratories in a.m. Obstructive sleep apnea- Patient will continue to use her own CPAP unit Anxiety with depression- Continue Lexapro History of Present Illness Chief Complaint: The patient presents to the emergency department with complaint of continued worsening shortness of breath after having been seen in the emergency department last week, despite taking inhalers, nebulizer and use of her chronic home oxygen as prescribed. Primary Care Provider: JAXON Valles The patient is a 67-year-old female with a past medical history including tobacco use disorder, paroxysmal atrial tachycardia, acute respiratory failure with hypoxia, eustachian tube dysfunction, COPD, acid reflux, COPD exacerbations, pericardial effusion, pulmonary nodules, ALHAJI, anxiety with depression, and presently undergoing workup for lung transplant at [facility]. She has had some gradually worsening shortness of breath over the past week after having been seen in the emergency department on 07/27/2023. She has had a cough intermittently productive of yellow mucus, otherwise mucus has been clear. Allergies Allergy/AdvReac Type Severity Reaction Status Date / Time aspirin AdvReac Intermediate GI SYMPTOMS Verified 08/01/23 20:55 Home Medications Medication Instructions Recorded Confirmed Type CPAP Machine #1 ea 12/06/19 05/04/23 Rx CPAP Supplies #1 ea 05/11/21 05/04/23 Rx escitalopram oxalate 10 mg tablet 15 mg PO QAM 08/05/22 08/01/23 History (Lexapro) Portable Oxygen E0431 #1 ea 09/15/22 05/04/23 Rx ergocalciferol (vitamin D2) 1,250 1,250 mcg PO WK 03/26/23 08/01/23 History mcg (50,000 unit) capsule valsartan 80 mg tablet 80 mg PO QAM 03/26/23 08/01/23 History fluticasone fur. 100 mcg-umeclid 1 inh inhalation DAILY #28 ea 06/08/23 08/01/23 Rx 62.5 mcg-vilant 25 mcg inhalat.powder (Trelegy Ellipta) ipratropium 0.5 mg-albuterol 3 mg 3 ml inhalation QID PRN Shortness 06/08/23 08/01/23 Rx (2.5 mg base)/3 mL nebulization Of Breath #360 mL soln albuterol sulfate 90 mcg/actuation 2 puff inhalation Q4H PRN 06/21/23 08/01/23 Rx aerosol inhaler shortness of breath or wheezing #8.5 grams azithromycin 250 mg tablet 250 mg PO 3XWK 07/06/23 08/01/23 History diphenhydramine HCl 50 mg capsule 50 mg PO DAILY PRN allergies 07/06/23 08/01/23 History omeprazole magnesium 20 mg 20 mg PO QAM 07/06/23 08/01/23 History tablet,delayed release (Prilosec OTC) roflumilast 500 mcg tablet 500 mcg PO QAM 07/06/23 08/01/23 History Past Med/Surg History Medical History Family history of paroxysmal atrial tachycardia Lung transplant candidate Sacroiliitis History of COVID-19 (~2021) x3 sob, cough, fatigue; resolved History of recent pneumonia (~09/2022) Multiple pulmonary nodules no biopsies, monitored Anxiety with depression SOB (shortness of breath) "all the time" Chronic respiratory failure Chronic obstructive pulmonary disease with hypoxia 3L O2 mi, [facility] Pulm Dr. Dhillon Sleep apnea, obstructive CPAP COPD exacerbation [facility] 03/2023 Surgical History Hx of cardiac catheterization (~2022) Had in [place] as part of work up for [facility] to get on Lung Transplant list, no stents Hx of colonoscopy with polypectomy Hx of bilateral cataract extraction History of partial hysterectomy History of carpal tunnel surgery of right wrist History of broken collarbone sx to repair History of tooth extraction all teeth H/O partial thyroidectomy (~1989) d/t hemorrhaging?--unknown cause, no meds Family History Mother , from ovarian cancer Cancer Ovarian Sister Cancer Ovarian Father COPD (chronic obstructive pulmonary disease) Other No family history of adverse response to anesthesia Social History Smoking Status: Former smoker Tobacco Type: Cigarettes Age Started Using Tobacco: 17; Age Quit Using Tobacco: 64; packs per day: 1; Cigarettes Per Day: < 1PPD; Second Hand Exposure: No; Do You Dip or Chew Tobacco: No; Hx Alcohol Use: No Hx Substance Use: No Preferred Language: Lithuanian 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 Ability: Effective Glost Tile Sorter 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 Beliefs That Will Affect Care: None marital status: Current Living Situation: Family Current Living Situation Comment: Lives with daughter Virgen Feels Safe at Home: Yes Safety Concerns: Feels Safe At This Time Assistive Devices: CPAP, Denture - Upper, Denture - Lower, Oxygen - Continuous and Wheelchair Review of Systems Review of Systems: The patient denies chest pain, palpitations, lower extremity swelling, sore throat, fevers, chills, sweats, nausea, vomiting, diarrhea , constipation, abdominal pain, pelvic pain, blood in urine or stool, dysuria, urinary frequency or urgency, lightheadedness, dizziness, headache, memory loss, loss of consciousness, rash, abnormal bruising or bleeding, imbalance, focal weakness, numbness or tingling in arms or legs, generalized arthralgias or myalgias, back or neck pain, or night sweats. The review of systems is otherwise negative other than for that already noted above, and at least 10 systems have been reviewed. Physical Exam Physical Exam: The patient is awake, alert and oriented 3, well developed and well nourished, normocephalic and atraumatic, lying in bed and in no acute distress. HEENT--PERRL, EOMI, mucous membranes and oropharynx dry. Neck--supple. No JVD. No bruits. Thyroid normal, trachea midline, no adenopathy. Heart--normal S1 and S2. No murmurs, rubs or gallops. Lungs--decreased breath sounds throughout, no respiratory distress, no accessory muscle use. Abdomen--normal bowel sounds and soft. Nontender. Nondistended, no hernias or masses, no organomegaly. Extremities--no cyanosis or clubbing. No edema. Dermatologic--normal skin turgor, normal color, no abnormal lymph nodes, no rash. Neurologic--cranial nerves II through XII grossly intact. Rheumatologic--normal range of motion. Psychiatric--normal affect. Results & Data Results & Data Vital Signs (Past 12 Hours) Vital Signs Temp Pulse Pulse Resp BP BP Pulse Ox 08/01/23 21:00 81 20 168/88 H 96 08/01/23 21:00 95 08/01/23 20:00 81 24 152/84 H 98 08/01/23 20:00 74 18 94 08/01/23 19:31 85 08/01/23 19:12 85 24 179/103 H 95 08/01/23 18:12 36.8 C 91 H 16 147/83 H 93 O2 Del Method O2 Flow Rate 08/01/23 21:00 Nasal Cannula 4 08/01/23 21:00 Nasal Cannula 4 08/01/23 20:00 Nasal Cannula 4 08/01/23 20:00 Nasal Cannula 4 08/01/23 19:31 08/01/23 19:12 Nasal Cannula 4 08/01/23 18:12 Nasal Cannula 3.5 Laboratory Results Laboratory Results WBC 13.82 K/ul (4.8-10.8) H 08/01/23 18:43 RBC 4.00 M/uL (4.20-5.40) L 08/01/23 18:43 Hgb 11.6 g/dl (12.0-16.0) L 08/01/23 18:43 Hct 34.7 % (37.0-47.0) L 08/01/23 18:43 MCV 86.8 fL (80.0-100.0) 08/01/23 18:43 MCH 29.0 pg (25.0-34.0) 08/01/23 18:43 MCHC 33.4 g/dL (32.0-36.0) 08/01/23 18:43 RDW Std Deviation 39.4 fL (36.4-46.3) 08/01/23 18:43 RDW Coeff of Audrey 12.4 % (11.5-14.5) 08/01/23 18:43 Plt Count 326 K/uL (130-400) 08/01/23 18:43 MPV 9.6 fL (9.4-12.4) 08/01/23 18:43 Immature Gran % (Auto) 0.5 % 08/01/23 18:43 Neut % (Auto) 78.5 % 08/01/23 18:43 Lymph % (Auto) 12.2 % 08/01/23 18:43 Luce % (Auto) 8.3 % 08/01/23 18:43 Eos % (Auto) 0.3 % 08/01/23 18:43 Baso % (Auto) 0.2 % 08/01/23 18:43 Neut # (Auto) 10.84 K/uL (1.40-6.50) H 08/01/23 18:43 Lymph # (Auto) 1.69 K/uL (1.20-3.40) 08/01/23 18:43 Luce # (Auto) 1.15 K/uL (0.11-0.59) H 08/01/23 18:43 Eos # (Auto) 0.04 K/uL (0.00-0.50) 08/01/23 18:43 Baso # (Auto) 0.03 K/uL (0.00-0.20) 08/01/23 18:43 Immature Gran # (Auto) 0.07 K/uL (0.01-0.20) 08/01/23 18:43 VBG pH 7.40 (7.36-7.41) 08/01/23 18:43 VBG pCO2 45 mmHg (38-50) 08/01/23 18:43 VBG pO2 57 mmHg 08/01/23 18:43 VBG HCO3 28 mmol/L 08/01/23 18:43 VBG O2 Saturation 86.0 % 08/01/23 18:43 VBG Base Excess 2.5 mEq/L 08/01/23 18:43 Sodium 141 mmol/L (136-145) 08/01/23 18:43 Potassium 3.2 mmol/L (3.5-5.1) L 08/01/23 18:43 Chloride 106 mmol/L (98-107) 08/01/23 18:43 Carbon Dioxide 28 mmol/L (21-32) 08/01/23 18:43 Anion Gap 7 (3-11) 08/01/23 18:43 BUN 18 mg/dl (6-23) 08/01/23 18:43 Creatinine 0.84 mg/dl (0.6-1.2) 08/01/23 18:43 Est Cr Clr Drug Dosing Not Reportable 08/01/23 18:43 Est GFR ( Amer) 82.8 ml/min 08/01/23 18:43 Est GFR (Non-Af Amer) 71.4 ml/min 08/01/23 18:43 BUN/Creatinine Ratio 21.4 (10-20) H 08/01/23 18:43 Glucose 101 mg/dl (70-99(Fasting)) H 08/01/23 18:43 Calcium 8.6 mg/dl (8.6-10.3) 08/01/23 18:43 Magnesium 2.1 mg/dl (1.7-2.4) 08/01/23 18:43 Total Bilirubin 0.4 mg/dl (0.2-1.0) 08/01/23 18:43 AST 9 U/L (13-39) L 08/01/23 18:43 ALT 13 U/L (7-52) 08/01/23 18:43 Alkaline Phosphatase 106 U/L (34-104) H 08/01/23 18:43 Troponin I High Sens 5.6 pg/ml (0-14) 08/01/23 18:43 B-Natriuretic Peptide 75 pg/ml (0-100) 08/01/23 18:43 Total Protein 6.4 gm/dl (6.0-8.3) 08/01/23 18:43 Albumin 3.8 gm/dl (3.4-5.0) 08/01/23 18:43 Globulin 2.6 gm/dl (2.5-4.0) 08/01/23 18:43 Albumin/Globulin Ratio 1.5 (0.9-2) 08/01/23 18:43 Urine Color Yellow 08/02/23 Unknown Urine Appearance Clear (Clear) 08/02/23 Unknown Urine pH 6.0 (4.5-7.5) 08/02/23 Unknown Ur Specific [place] 1.008 (1.000-1.030) 08/02/23 Unknown Urine Protein Negative (Negative) 08/02/23 Unknown Urine Glucose (UA) Negative (Negative) 08/02/23 Unknown Urine Ketones Negative (Negative) 08/02/23 Unknown Urine Blood Negative (Negative) 08/02/23 Unknown Urine Nitrite Negative (Negative) 08/02/23 Unknown Urine Bilirubin Negative (Negative) 08/02/23 Unknown Urine Urobilinogen Negative (Negative) 08/02/23 Unknown Ur Leukocyte Esterase Negative (Negative) 08/02/23 Unknown Adenovirus (PCR) Not Detected (NotDetected) 08/01/23 18:30 B. pertussis DNA (PCR) Not Detected (NotDetected) 08/01/23 18:30 B.parapertussis DNA PCR Not Detected (NotDetected) 08/01/23 18:30 C. pneumoniae DNA (PCR) Not Detected (NotDetected) 08/01/23 18:30 Coronavirus OC43 (PCR) Not Detected (NotDetected) 08/01/23 18:30 Coronavirus HKU1 (PCR) Not Detected (NotDetected) 08/01/23 18:30 Coronavirus 229E (PCR) Not Detected (NotDetected) 08/01/23 18:30 SARS-CoV-2 (PCR) Not Detected (NotDetected) 08/01/23 18:30 Coronavirus NL63 (PCR) Not Detected (NotDetected) 08/01/23 18:30 Human Metapneumovir PCR Not Detected (NotDetected) 08/01/23 18:30 Influenza Type A (PCR) Not Detected (NotDetected) 08/01/23 18:30 Influenza Type B (PCR) Not Detected (NotDetected) 08/01/23 18:30 M. pneumoniae (PCR) Not Detected (NotDetected) 08/01/23 18:30 Parainfluenza 1 (PCR) Not Detected (NotDetected) 08/01/23 18:30 Parainfluenza 2 (PCR) Not Detected (NotDetected) 08/01/23 18:30 Parainfluenza 3 (PCR) Not Detected (NotDetected) 08/01/23 18:30 Parainfluenza 4 (PCR) Not Detected (NotDetected) 08/01/23 18:30 RSV (PCR) Not Detected (NotDetected) 08/01/23 18:30 Entero/Rhino (PCR) DETECTED (NotDetected) A 08/01/23 18:30 Code Status & VTE Plan Code Status Full code VTE Prophylaxis Plan VTE Prophylaxis will be ordered: Yes PG Care Time/CCT Total # of Minutes Spent Total Time Spent with Patient: Total time spent is greater than 50% in coordination of care (as documented) at patient's floor/unit and/or counseling patient: Coding Level of Care Code 10760 INT INP/OBS CARE 3/75MIN Diagnoses Acute on chronic respiratory failure with hypoxia J96.21 Acute exacerbation of chronic obstructive pulmonary disease (COPD) J44.1 Rhinovirus infection B34.8 Failure of outpatient treatment Z78.9 History of tobacco use Z87.891 Lung transplant candidate Z76.82 Anxiety with depression F41.8 Sleep apnea, obstructive G47.33
[2023-08-01] MEDS: guaiFENesin 600 MG TABCR PO STA (23:09)
[2023-08-01] MEDS: PIPERACILLIN/TAZOBACTAM 4.5 GM in DEXTROSE 5% MINI-B 100 ML IV ONE (23:10)
[2023-08-02] MEDS ORDERED: ONDANSETRON INJ 2 MG/ML 2 ML VIAL IV PRN (00:10)
[2023-08-02] MEDS ORDERED: diphenhydrAMINE Capsule 25 MG CAP PO PRN (00:17)
[2023-08-02 00:21] LABS: Appearance Urine Clear (Clear); Bilirubin Urine Negative (Negative); Blood Urine Negative (Negative); Color Urine Yellow; Glucose Urine UA Negative (Negative); Ketones Urine Negative (Negative); Leukocyte Esterase Urine Negative (Negative); Nitrite Urine Negative (Negative); Protein Urine Negative (Negative); Specific Gravity Urine 1.008 (1.000-1.030); Urobilinogen Urine Negative (Negative)
[2023-08-02] MEDS: AZITHROMYCIN 500 MG in DEXTROSE 5% 250 ML IV STA (00:30)
[2023-08-02] MEDS: NSS + 20MEQ KCL 20 MEQ/1,000 ML BAG IV SCH (02:15)
[2023-08-02] MEDS: ALBUT/IPRATROP 3MG/0.5MG NEB 3 ML VIAL NEB PRN (04:02)
[2023-08-02] MEDS: ENOXAPARIN INJ 40 MG/0.4 ML SYR SQ SCH (06:08)
[2023-08-02] MEDS: PIPERACILLIN/TAZOBACTAM 4.5 GM in DEXTROSE 5% MINI-B 100 ML IV SCH (06:09)
[2023-08-02] MEDS ORDERED: methylPREDNISolone 10 mg/mL (For Ped Dose < 7mg) IV SCH (07:00)
[2023-08-02] MEDS: ALBUT/IPRATROP 3MG/0.5MG NEB 3 ML VIAL NEB SCH (07:16)
--- NOTE | 2023-08-02 07:17 | XRay Report ---
XR chest 1V portable CLINICAL HISTORY: Dyspnea. COMPARISON STUDY: Chest CT March 26, 2023. Chest radiograph July 27, 2023. FINDINGS: No pneumothorax or pleural effusion is present. There is emphysema. Cardiomediastinal silho uette is stable. No consolidation is identified to suggest pneumonia and there is no radiographic srikanth dence for pulmonary edema. IMPRESSION: No acute cardiopulmonary findings. Emphysema. ACT 112: Negative or not required by law. Electronically signed by: Celestine Armendariz M.D. 08/02/2023 7:15 AM
[2023-08-02 08:01] LABS: Basophils # (auto) 0.01 K/uL (0.00-0.20); Basophils % (auto) 0.1 %; Hematocrit (blood only) 32.7 % (37.0-47.0); Hemoglobin 11.1 g/dl (12.0-16.0); Immature Granulocytes # (auto) 0.07 K/uL (0.01-0.20); Lymphocytes # (auto) 0.67 K/uL (1.20-3.40); Lymphocytes % (auto) 9.1 %; Mean Corpuscular Hgb Conc 33.9 g/dL (32.0-36.0); Mean Corpuscular Volume 85.4 fL (80.0-100.0); Mean Platelet Volume 9.9 fL (9.4-12.4); Monocytes # (auto) 0.08 K/uL (0.11-0.59); Monocytes % (auto) 1.1 %; Neutrophils # (auto) 6.52 K/uL (1.40-6.50); Neutrophils % (auto) 88.7 %; Platelet Count 327 K/uL (130-400); RDW Coefficient of Variation 12.4 % (11.5-14.5); RDW Standard Deviation 38.6 fL (36.4-46.3); Red Blood Count 3.83 M/uL (4.20-5.40); White Blood Count 7.35 K/ul (4.8-10.8)
[2023-08-02] MEDS: methylPREDNISolone 60 MG in SYRINGE 0 ML IV SCH (08:29)
[2023-08-02] MEDS: UMECLIDINIUM/VILANTEROL 62.5/25MCG 7 PUFFS/INHALER INH SCH (08:31)
[2023-08-02] MEDS: FLUTICASONE FUROATE 100MCG 14 PUFFS/INHALER INH SCH (08:32)
[2023-08-02 08:35] LABS: Albumin Level 3.4 gm/dl (3.4-5.0); BUN Creatinine Ratio 19.2 (10-20); Calcium 8.4 mg/dl (8.6-10.3); Creatinine Clr Calc Pharmacy 63.4 ml/min; Est GFR (African American) 90.5 ml/min; Est GFR (Non-African American) 78.1 ml/min; Magnesium 2.3 mg/dl (1.7-2.4); Phosphorus 4.4 mg/dl (2.5-4.9); Potassium 4.1 mmol/L (3.5-5.1)
[2023-08-02] MEDS: ESCITALOPRAM OXALATE 10 MG TAB PO SCH (08:35)
[2023-08-02] MEDS: guaiFENesin 600 MG TABCR PO SCH (08:36)
[2023-08-02] MEDS: VALSARTAN 80 MG TAB PO SCH (08:36)
[2023-08-02] MEDS: PANTOprazole 40 MG TAB PO SCH (08:37)
[2023-08-02] MEDS: ROFLUMILAST 500 MCG TAB PO SCH (08:37)
[2023-08-02] MEDS ORDERED: NON-FORMULARY MEDICATION (Fluticasone-Umeclidin-Vilanter [Trelegy Ellipta] 100-62.5-25 mcg INH SCH (09:00)
--- NOTE | 2023-08-02 13:25 | Electrocardiogram Report ---
Test Reason : Blood Pressure : / mmHG Vent. Rate : 083 BPM Atrial Rate : 083 BPM P-R Int : 154 ms QRS Dur : 080 ms QT Int : 352 ms P-R-T Axes : 081 074 076 degrees QTc Int : 413 ms Normal sinus rhythm Nonspecific ST and T wave abnormality Abnormal ECG When compared with ECG of 27-JUL-2023 10:50, No significant change was found Confirmed by Arthur Pack ([id number]) on 08/02/2023 1:25:23 PM Referred By: REFERRED SELF Confirmed By:Glenroy Pack
--- NOTE | 2023-08-02 14:09 | Hospitalist Progress Note ---
Date of Service August 02, 2023 Assessment & Plan (1) Acute on chronic respiratory failure with hypoxia: (2) Acute exacerbation of chronic obstructive pulmonary disease (COPD): (3) Rhinovirus infection: (4) Failure of outpatient treatment: (5) History of tobacco use: (6) Lung transplant candidate: (7) Anxiety with depression: (8) Sleep apnea, obstructive: Plan Acute on chronic respiratory failure with hypoxia as characterized by air hunger, tachypnea, patient was breathing more than 24/min and using accessory muscles to breathe on admission She states she is a candidate for renal transplant On exam there were bibasilar wheeze Send sputum Gram stain, culture and sensitivity. Solu-Medrol 120 mg IV in ED followed by 60 mg IV every 8 hours Zosyn 4.5 g IV every 8 hours Azithromycin 500 mg IV every 24 hours Guaifenesin extended release 1200 mg p.o. twice daily Duonebs every 4 hours while awake and every 2 hours when necessary. Did receive magnesium sulfate 1 g IV in the ED Continue Roflumilast 500 mcg every morning This morning, patient feels a little better Hypokalemia- Resolved Obstructive sleep apnea- Patient will continue to use her own CPAP unit Anxiety with depression- Continue Lexapro Admission and Anticipated Discharge Date Admission Date: August 01, 2023 Subjective Patient seen and examined, states her breathing is much improved Review of Systems Review of Systems: All systems reviewed are negative, apart from the ones contained in the history. Physical Exam Physical Exam: The patient is awake, alert and oriented 3, well developed and well nourished, normocephalic and atraumatic, lying in bed and in no acute distress. HEENT--PERRL, EOMI, mucous membranes and oropharynx mildly dry Neck--supple. No JVD. No bruits. Thyroid normal, trachea midline, no adenopathy. Heart--normal S1 and S2. No murmurs, rubs or gallops. Lungs--reduced air entry on auscultation. Abdomen--normal bowel sounds and soft. Extremities--no cyanosis or clubbing. No edema. Dermatologic--normal skin turgor, normal color, no abnormal lymph nodes, no rash. Neurologic--cranial nerves II through XII grossly intact. Rheumatologic--normal range of motion. Psychiatric--normal affect. Results & Data Results & Data Vital Signs (Past 12 Hours) Vital Signs Temp Pulse Pulse Resp BP BP Pulse Ox 08/02/23 11:13 97.7 F 68 18 142/73 H 93 08/02/23 10:25 84 16 93 08/02/23 08:00 08/02/23 07:41 62 08/02/23 07:16 70 20 91 08/02/23 07:00 97.7 F 68 18 155/82 H 92 08/02/23 04:02 69 20 93 08/02/23 03:35 97.9 F 74 17 129/73 94 O2 Del Method O2 Flow Rate 08/02/23 11:13 Nasal Cannula 3 08/02/23 10:25 Nasal Cannula 3 08/02/23 08:00 Nasal Cannula 3 08/02/23 07:41 08/02/23 07:16 Nasal Cannula 3 08/02/23 07:00 Nasal Cannula 3 08/02/23 04:02 Nasal Cannula 3 08/02/23 03:35 Nasal Cannula 3 PG Care Time/CCT Total # of Minutes Spent Total Time Spent with Patient: Total time spent is greater than 50% in coordination of care (as documented) at patient's floor/unit and/or counseling patient: Coding Level of Care Code 79921 SUB INP/OBS CARE 2/35MIN Diagnoses Acute on chronic respiratory failure with hypoxia J96.21 Acute exacerbation of chronic obstructive pulmonary disease (COPD) J44.1 Rhinovirus infection B34.8 Failure of outpatient treatment Z78.9 History of tobacco use Z87.891 Lung transplant candidate Z76.82 Anxiety with depression F41.8 Sleep apnea, obstructive G47.33 Time Spent (min) 35
[2023-08-02] MEDS: LIDOCAINE 5% 1 PATCH TD STA (14:46)
[2023-08-02] MEDS: ACETAMINOPHEN 325 MG TAB PO PRN (16:47)
[2023-08-02] MEDS: AZITHROMYCIN 500 MG in DEXTROSE 5% 250 ML IV SCH (20:34)
[2023-08-03 07:48] LABS: Basophils # (auto) 0.01 K/uL (0.00-0.20); Basophils % (auto) 0.1 %; Hematocrit (blood only) 30.3 % (37.0-47.0); Hemoglobin 10.5 g/dl (12.0-16.0); Immature Granulocytes # (auto) 0.12 K/uL (0.01-0.20); Immature Granulocytes % (auto) 1.3 %; Lymphocytes # (auto) 0.84 K/uL (1.20-3.40); Mean Corpuscular Hemoglobin 29.2 pg (25.0-34.0); Mean Corpuscular Hgb Conc 34.7 g/dL (32.0-36.0); Mean Corpuscular Volume 84.4 fL (80.0-100.0); Mean Platelet Volume 9.8 fL (9.4-12.4); Monocytes # (auto) 0.23 K/uL (0.11-0.59); Monocytes % (auto) 2.5 %; Neutrophils # (auto) 8.17 K/uL (1.40-6.50); Neutrophils % (auto) 87.1 %; Platelet Count 298 K/uL (130-400); RDW Coefficient of Variation 12.1 % (11.5-14.5); RDW Standard Deviation 37.1 fL (36.4-46.3); Red Blood Count 3.59 M/uL (4.20-5.40); White Blood Count 9.37 K/ul (4.8-10.8)
[2023-08-03 08:03] LABS: Albumin Level 3.1 gm/dl (3.4-5.0); BUN Creatinine Ratio 20.8 (10-20); Calcium 8.3 mg/dl (8.6-10.3); Creatinine Clr Calc Pharmacy 51.8 ml/min; Est GFR (African American) 70.4 ml/min; Est GFR (Non-African American) 60.8 ml/min; Magnesium 2.2 mg/dl (1.7-2.4); Phosphorus 3.8 mg/dl (2.5-4.9)
--- NOTE | 2023-08-03 12:37 | Hospitalist Progress Note ---
Date of Service August 03, 2023 Assessment & Plan (1) Acute on chronic respiratory failure with hypoxia: (2) Acute exacerbation of chronic obstructive pulmonary disease (COPD): (3) Rhinovirus infection: (4) Failure of outpatient treatment: (5) History of tobacco use: (6) Lung transplant candidate: (7) Anxiety with depression: (8) Sleep apnea, obstructive: Plan Acute on chronic respiratory failure with hypoxia as characterized by air hunger, tachypnea, patient was breathing more than 24/min and using accessory muscles to breathe on admission Upon further questioning, patient admits to new exposure to chickens that her daughter recently brought to the house. She states she is a candidate for lung transplant at [facility] On exam there were bibasilar wheeze Send sputum Gram stain, culture and sensitivity. Will add IgE for checking allergens Solu-Medrol 120 mg IV in ED followed by 60 mg IV every 8 hours Zosyn 4.5 g IV every 8 hours Azithromycin 500 mg IV every 24 hours Guaifenesin extended release 1200 mg p.o. twice daily Duonebs every 4 hours while awake and every 2 hours when necessary. Did receive magnesium sulfate 1 g IV in the ED Continue Roflumilast 500 mcg every morning This morning, patient feels a little better, breathing much better Hypokalemia- Resolved Obstructive sleep apnea- Patient will continue to use her own CPAP unit Anxiety with depression- Continue Lexapro Admission and Anticipated Discharge Date Admission Date: August 01, 2023 Subjective Patient seen and examined, states her breathing is much improved Review of Systems Review of Systems: All systems reviewed are negative, apart from the ones contained in the history. Physical Exam Physical Exam: The patient is awake, alert and oriented 3, well developed and well nourished, normocephalic and atraumatic, lying in bed and in no acute distress. HEENT--PERRL, EOMI, mucous membranes and oropharynx mildly dry Neck--supple. No JVD. No bruits. Thyroid normal, trachea midline, no adenopathy. Heart--normal S1 and S2. No murmurs, rubs or gallops. Lungs--reduced air entry on auscultation. Abdomen--normal bowel sounds and soft. Extremities--no cyanosis or clubbing. No edema. Dermatologic--normal skin turgor, normal color, no abnormal lymph nodes, no rash. Neurologic--cranial nerves II through XII grossly intact. Rheumatologic--normal range of motion. Psychiatric--normal affect. Results & Data Results & Data Vital Signs (Past 12 Hours) Vital Signs Temp Pulse Resp BP Pulse Ox O2 Del Method O2 Flow Rate 08/03/23 12:07 98.4 F 79 16 176/76 H 97 Nasal Cannula 3 08/03/23 10:46 61 94 Nasal Cannula 3 08/03/23 08:22 Nasal Cannula 3 08/03/23 07:28 78 20 90 Nasal Cannula 3 08/03/23 07:00 98.2 F 74 18 149/77 H 96 Nasal Cannula 3 08/03/23 03:31 97.7 F 67 18 166/78 H 95 Nasal Cannula 3.5 PG Care Time/CCT Total # of Minutes Spent Total Time Spent with Patient: Total time spent is greater than 50% in coordination of care (as documented) at patient's floor/unit and/or counseling patient: Coding Level of Care Code 56173 SUB INP/OBS CARE 2/35MIN Diagnoses Acute on chronic respiratory failure with hypoxia J96.21 Acute exacerbation of chronic obstructive pulmonary disease (COPD) J44.1 Rhinovirus infection B34.8 Failure of outpatient treatment Z78.9 History of tobacco use Z87.891 Lung transplant candidate Z76.82 Anxiety with depression F41.8 Sleep apnea, obstructive G47.33 Time Spent (min) 35
[2023-08-03] MEDS: MELATONIN 3 MG TAB PO PRN (21:22)
[2023-08-04 06:55] LABS: Hematocrit (blood only) 33.2 % (37.0-47.0); Hemoglobin 11.5 g/dl (12.0-16.0); Mean Corpuscular Hgb Conc 34.6 g/dL (32.0-36.0); Mean Corpuscular Volume 83.8 fL (80.0-100.0); Mean Platelet Volume 9.8 fL (9.4-12.4); Platelet Count 324 K/uL (130-400); RDW Coefficient of Variation 12.2 % (11.5-14.5); RDW Standard Deviation 37.3 fL (36.4-46.3); Red Blood Count 3.96 M/uL (4.20-5.40); White Blood Count 9.22 K/ul (4.8-10.8)
[2023-08-04 07:23] LABS: Albumin Level 3.3 gm/dl (3.4-5.0); BUN Creatinine Ratio 28.8 (10-20); Calcium 8.4 mg/dl (8.6-10.3); Creatinine Clr Calc Pharmacy 63.5 ml/min; Est GFR (African American) 87.8 ml/min; Est GFR (Non-African American) 75.8 ml/min; Magnesium 2.2 mg/dl (1.7-2.4); Phosphorus 3.5 mg/dl (2.5-4.9); Potassium 3.8 mmol/L (3.5-5.1)
[2023-08-04 07:43] LABS: Basophils # (auto) 0.04 K/uL (0.00-0.20); Basophils % (auto) 0.4 %; Immature Granulocytes # (auto) 0.49 K/uL (0.01-0.20); Immature Granulocytes % (auto) 5.3 %; Lymphocytes # (auto) 0.74 K/uL (1.20-3.40); Monocytes # (auto) 0.28 K/uL (0.11-0.59); Neutrophils # (auto) 7.67 K/uL (1.40-6.50); Neutrophils % (auto) 83.3 %
--- NOTE | 2023-08-04 12:16 | Hospitalist Progress Note ---
Date of Service August 04, 2023 Assessment & Plan (1) Acute on chronic respiratory failure with hypoxia: (2) Acute exacerbation of chronic obstructive pulmonary disease (COPD): (3) Rhinovirus infection: (4) Failure of outpatient treatment: (5) History of tobacco use: (6) Lung transplant candidate: (7) Anxiety with depression: (8) Sleep apnea, obstructive: Plan Acute on chronic respiratory failure with hypoxia as characterized by air hunger, tachypnea, patient was breathing more than 24/min and using accessory muscles to breathe on admission Secondary to entero and rhinovirus Upon further questioning, patient admits to new exposure to chickens that her daughter recently brought to the house. She states she is a candidate for lung transplant at [facility] On exam there were bibasilar wheeze Send sputum Gram stain, culture and sensitivity. Will add IgE for checking allergens Solu-Medrol 120 mg IV in ED followed by 60 mg IV every 8 hours, will further de- escalate to 40 mg every 8 hours Zosyn 4.5 g IV every 8 hours Azithromycin 500 mg IV every 24 hours Cultures negative so far, will stop azithromycin continue Zosyn. Guaifenesin extended release 1200 mg p.o. twice daily Duonebs every 4 hours while awake and every 2 hours when necessary. Did receive magnesium sulfate 1 g IV in the ED Continue Roflumilast 500 mcg every morning This morning, patient feels a little better, breathing much better, although somewhat shortness of breath especially on exertion Hypokalemia- Resolved Obstructive sleep apnea- Patient will continue to use her own CPAP unit Anxiety with depression- Continue Lexapro Admission and Anticipated Discharge Date Admission Date: August 01, 2023 Subjective Patient seen and examined, states her breathing is much improved Review of Systems Review of Systems: All systems reviewed are negative, apart from the ones contained in the history. Physical Exam Physical Exam: The patient is awake, alert and oriented 3, well developed and well nourished, normocephalic and atraumatic, lying in bed and in no acute distress. HEENT--PERRL, EOMI, mucous membranes and oropharynx mildly dry Neck--supple. No JVD. No bruits. Thyroid normal, trachea midline, no adenopathy. Heart--normal S1 and S2. No murmurs, rubs or gallops. Lungs--reduced air entry on auscultation. Abdomen--normal bowel sounds and soft. Extremities--no cyanosis or clubbing. No edema. Dermatologic--normal skin turgor, normal color, no abnormal lymph nodes, no rash. Neurologic--cranial nerves II through XII grossly intact. Rheumatologic--normal range of motion. Psychiatric--normal affect. Results & Data Results & Data Vital Signs (Past 12 Hours) Vital Signs Temp Pulse Pulse Resp BP Pulse Ox O2 Del Method 08/04/23 11:33 74 16 94 Nasal Cannula 08/04/23 07:47 97.7 F 82 18 149/66 H 92 Nasal Cannula 08/04/23 07:35 67 16 97 Nasal Cannula 08/04/23 03:00 97.9 F 71 19 180/80 H 96 Nasal Cannula O2 Flow Rate 08/04/23 11:33 3 08/04/23 07:47 3.5 08/04/23 07:35 3 08/04/23 03:00 PG Care Time/CCT Total # of Minutes Spent Total Time Spent with Patient: Total time spent is greater than 50% in coordination of care (as documented) at patient's floor/unit and/or counseling patient: Coding Level of Care Code 36625 SUB INP/OBS CARE 2/35MIN Diagnoses Acute on chronic respiratory failure with hypoxia J96.21 Acute exacerbation of chronic obstructive pulmonary disease (COPD) J44.1 Rhinovirus infection B34.8 Failure of outpatient treatment Z78.9 History of tobacco use Z87.891 Lung transplant candidate Z76.82 Anxiety with depression F41.8 Sleep apnea, obstructive G47.33 Time Spent (min) 35
[2023-08-04 15:32] LABS: Chicken Feather (e85) IgE <0.10 kU/L; Chicken Feather Allergen Class 0; Immunoglobulin IgE 7 kU/L (<OR=114)
[2023-08-04] MEDS: methylPREDNISolone 40 MG in SYRINGE 0 ML IV SCH (17:23)
[2023-08-05 06:45] LABS: Creatinine Clr Calc Pharmacy 57.6 ml/min; Est GFR (African American) 79.3 ml/min; Est GFR (Non-African American) 68.5 ml/min
--- NOTE | 2023-08-05 12:25 | Hospitalist Progress Note ---
Date of Service August 05, 2023 Assessment & Plan (1) Acute on chronic respiratory failure with hypoxia: (2) Acute exacerbation of chronic obstructive pulmonary disease (COPD): (3) Rhinovirus infection: (4) Failure of outpatient treatment: (5) History of tobacco use: (6) Lung transplant candidate: (7) Anxiety with depression: (8) Sleep apnea, obstructive: Plan Acute on chronic respiratory failure with hypoxia as characterized by air hunger, tachypnea, patient was breathing more than 24/min and using accessory muscles to breathe on admission Secondary to entero and rhinovirus Upon further questioning, patient admits to new exposure to chickens that her daughter recently brought to the house. IgE was within normal limits She states she is a candidate for lung transplant at [facility] On exam there were bibasilar wheeze Send sputum Gram stain, culture and sensitivity. Will add IgE for checking allergens Solu-Medrol 120 mg IV in ED followed by 60 mg IV every 8 hours, will further de- escalate to 40 mg every 8 hours Zosyn 4.5 g IV every 8 hours Azithromycin 500 mg IV every 24 hours Cultures negative so far, will stop azithromycin continue Zosyn. Guaifenesin extended release 1200 mg p.o. twice daily Duonebs every 4 hours while awake and every 2 hours when necessary. Also continue Roflumilast, Breo, Symbicort Shortness of breath has improved overall Hypokalemia- Resolved Obstructive sleep apnea- Patient will continue to use her own CPAP unit Anxiety with depression- Continue Lexapro Admission and Anticipated Discharge Date Admission Date: August 01, 2023 Subjective Patient seen and examined, states her breathing is much improved, still with minimal cough Review of Systems Review of Systems: All systems reviewed are negative, apart from the ones contained in the history. Physical Exam Physical Exam: The patient is awake, alert and oriented 3, well developed and well nourished, normocephalic and atraumatic, lying in bed and in no acute distress. HEENT--PERRL, EOMI, mucous membranes and oropharynx mildly dry Neck--supple. No JVD. No bruits. Thyroid normal, trachea midline, no adenopathy. Heart--normal S1 and S2. No murmurs, rubs or gallops. Lungs--reduced air entry on auscultation. Abdomen--normal bowel sounds and soft. Extremities--no cyanosis or clubbing. No edema. Dermatologic--normal skin turgor, normal color, no abnormal lymph nodes, no rash. Neurologic--cranial nerves II through XII grossly intact. Rheumatologic--normal range of motion. Psychiatric--normal affect. Results & Data Results & Data Vital Signs (Past 12 Hours) Vital Signs Temp Pulse Pulse Resp BP Pulse Ox O2 Del Method 08/05/23 11:40 98.4 F 66 20 152/77 H 93 Nasal Cannula 08/05/23 11:23 75 18 91 Nasal Cannula 08/05/23 07:45 Nasal Cannula 08/05/23 07:38 98.2 F 75 19 137/82 94 Nasal Cannula 08/05/23 07:25 60 08/05/23 07:02 77 18 96 Nasal Cannula 08/05/23 02:47 67 18 163/81 H 95 Nasal Cannula O2 Flow Rate 08/05/23 11:40 3.0 08/05/23 11:23 3 08/05/23 07:45 08/05/23 07:38 3.0 08/05/23 07:25 08/05/23 07:02 3 08/05/23 02:47 3.5 PG Care Time/CCT Total # of Minutes Spent Total Time Spent with Patient: Total time spent is greater than 50% in coordination of care (as documented) at patient's floor/unit and/or counseling patient: Coding Level of Care Code 39638 SUB INP/OBS CARE 2/35MIN Diagnoses Acute on chronic respiratory failure with hypoxia J96.21 Acute exacerbation of chronic obstructive pulmonary disease (COPD) J44.1 Rhinovirus infection B34.8 Failure of outpatient treatment Z78.9 History of tobacco use Z87.891 Lung transplant candidate Z76.82 Anxiety with depression F41.8 Sleep apnea, obstructive G47.33 Time Spent (min) 35
[2023-08-05] MEDS: AMOXICILLIN/CLAVULANATE 875 MG TAB PO SCH (16:43)
--- NOTE | 2023-08-06 11:11 | Hospitalist Progress Note ---
Date of Service August 06, 2023 Assessment & Plan (1) Acute on chronic respiratory failure with hypoxia: (2) Acute exacerbation of chronic obstructive pulmonary disease (COPD): (3) Rhinovirus infection: (4) Failure of outpatient treatment: (5) History of tobacco use: (6) Lung transplant candidate: (7) Anxiety with depression: (8) Sleep apnea, obstructive: Plan Acute on chronic respiratory failure with hypoxia as characterized by air hunger, tachypnea, patient was breathing more than 24/min and using accessory muscles to breathe on admission Secondary to entero and rhinovirus and also strep pneumonia Upon further questioning, patient admits to new exposure to chickens that her daughter recently brought to the house. IgE was within normal limits She states she is a candidate for lung transplant at [facility] Solu-Medrol 120 mg IV in ED followed by 60 mg IV every 8 hours, will further de- escalate to 40 mg every 8 hours Guaifenesin extended release 1200 mg p.o. twice daily Duonebs every 4 hours while awake and every 2 hours when necessary. Also continue Roflumilast, Breo, Symbicort Shortness of breath has improved overall, cough has also improved Hypokalemia- Resolved Obstructive sleep apnea- Patient will continue to use her own CPAP unit Anxiety with depression- Continue Lexapro Admission and Anticipated Discharge Date Admission Date: August 01, 2023 Subjective Patient seen and examined, states her breathing is much improved, still with minimal cough Review of Systems Review of Systems: All systems reviewed are negative, apart from the ones contained in the history. Physical Exam 2 Physical Exam: The patient is awake, alert and oriented 3, well developed and well nourished, normocephalic and atraumatic, lying in bed and in no acute distress. HEENT--PERRL, EOMI, mucous membranes and oropharynx mildly dry Neck--supple. No JVD. No bruits. Thyroid normal, trachea midline, no adenopathy. Heart--normal S1 and S2. No murmurs, rubs or gallops. Lungs--reduced air entry on auscultation. Abdomen--normal bowel sounds and soft. Extremities--no cyanosis or clubbing. No edema. Dermatologic--normal skin turgor, normal color, no abnormal lymph nodes, no rash. Neurologic--cranial nerves II through XII grossly intact. Rheumatologic--normal range of motion. Psychiatric--normal affect. Results & Data Results & Data Vital Signs (Past 12 Hours) Vital Signs Temp Pulse Resp BP Pulse Ox O2 Del Method O2 Flow Rate 08/06/23 08:14 97.7 F 75 17 144/71 H 95 Nasal Cannula 3.0 08/06/23 07:50 Nasal Cannula 3.5 08/06/23 06:44 88 18 97 Nasal Cannula 3 08/06/23 03:18 97.9 F 68 18 175/82 H 96 Nasal Cannula 3 08/05/23 23:22 98.1 F 73 17 157/80 H 97 Nasal Cannula 3 PG Care Time/CCT Total # of Minutes Spent Total Time Spent with Patient: Total time spent is greater than 50% in coordination of care (as documented) at patient's floor/unit and/or counseling patient: Coding Level of Care Code 55149 SUB INP/OBS CARE 2/35MIN Diagnoses Acute on chronic respiratory failure with hypoxia J96.21 Acute exacerbation of chronic obstructive pulmonary disease (COPD) J44.1 Rhinovirus infection B34.8 Failure of outpatient treatment Z78.9 History of tobacco use Z87.891 Lung transplant candidate Z76.82 Anxiety with depression F41.8 Sleep apnea, obstructive G47.33 Time Spent (min) 35
[2023-08-06 12:31] LABS: Appearance Urine Clear (Clear); Bilirubin Urine Negative (Negative); Blood Urine Negative (Negative); Color Urine Yellow; Glucose Urine UA Negative (Negative); Ketones Urine Negative (Negative); Leukocyte Esterase Urine Negative (Negative); Nitrite Urine Negative (Negative); Protein Urine Negative (Negative); Specific Gravity Urine 1.019 (1.000-1.030); Urobilinogen Urine Negative (Negative); pH Urine 7.5 (4.5-7.5)
--- NOTE | 2023-08-07 10:26 | Hospitalist Progress Note ---
Date of Service August 07, 2023 Assessment & Plan (1) Acute on chronic respiratory failure with hypoxia: (2) Acute exacerbation of chronic obstructive pulmonary disease (COPD): (3) Rhinovirus infection: (4) Failure of outpatient treatment: (5) History of tobacco use: (6) Lung transplant candidate: (7) Anxiety with depression: (8) Sleep apnea, obstructive: Plan Acute on chronic respiratory failure with hypoxia as characterized by air hunger, tachypnea, patient was breathing more than 24/min and using accessory muscles to breathe on admission Secondary to entero and rhinovirus and also strep pneumonia Upon further questioning, patient admits to new exposure to chickens that her daughter recently brought to the house. IgE was within normal limits She states she is a candidate for lung transplant at [facility] Solu-Medrol 120 mg IV in ED followed by 60 mg IV every 8 hours, will further de- escalate to 40 mg every 8 hours Guaifenesin extended release 1200 mg p.o. twice daily Duonebs every 4 hours while awake and every 2 hours when necessary. Also continue Roflumilast, Breo, Symbicort Shortness of breath has improved overall, cough has also improved Hypokalemia- Resolved Obstructive sleep apnea- Patient will continue to use her own CPAP unit Anxiety with depression- Continue Lexapro Burning sensation around the genitalia: She did not show any evidence of UTI Hopefully discharge in 24 hours Admission and Anticipated Discharge Date Admission Date: August 01, 2023 Subjective Patient seen and examined, states her breathing is much improved, still with minimal cough, complained of burning around the genitalia yesterday, urinalysis did not show any evidence of UTI Review of Systems Review of Systems: All systems reviewed are negative, apart from the ones contained in the history. Physical Exam Physical Exam: The patient is awake, alert and oriented 3, well developed and well nourished, normocephalic and atraumatic, lying in bed and in no acute distress. HEENT--PERRL, EOMI, mucous membranes and oropharynx mildly dry Neck--supple. No JVD. No bruits. Thyroid normal, trachea midline, no adenopathy. Heart--normal S1 and S2. No murmurs, rubs or gallops. Lungs--reduced air entry on auscultation. Abdomen--normal bowel sounds and soft. Extremities--no cyanosis or clubbing. No edema. Dermatologic--normal skin turgor, normal color, no abnormal lymph nodes, no rash. Neurologic--cranial nerves II through XII grossly intact. Rheumatologic--normal range of motion. Psychiatric--normal affect. Results & Data Results & Data Vital Signs (Past 12 Hours) Vital Signs Temp Pulse Pulse Resp BP Pulse Ox O2 Del Method 08/07/23 07:34 97.7 F 67 17 161/83 H 93 Nasal Cannula 08/07/23 07:25 Nasal Cannula 08/07/23 06:55 79 18 98 Nasal Cannula 08/07/23 03:24 97.9 F 71 20 157/75 H 96 Nasal Cannula 08/06/23 22:59 97.7 F 69 20 165/89 H 97 Nasal Cannula O2 Flow Rate 08/07/23 07:34 3.0 08/07/23 07:25 3.5 08/07/23 06:55 3 08/07/23 03:24 3 08/06/23 22:59 3 PG Care Time/CCT Total # of Minutes Spent Total Time Spent with Patient: Total time spent is greater than 50% in coordination of care (as documented) at patient's floor/unit and/or counseling patient: Coding Level of Care Code 36607 SUB INP/OBS CARE 2/35MIN Diagnoses Acute on chronic respiratory failure with hypoxia J96.21 Acute exacerbation of chronic obstructive pulmonary disease (COPD) J44.1 Rhinovirus infection B34.8 Failure of outpatient treatment Z78.9 History of tobacco use Z87.891 Lung transplant candidate Z76.82 Anxiety with depression F41.8 Sleep apnea, obstructive G47.33 Time Spent (min) 35
[2023-08-08 07:40] LABS: Creatinine Clr Calc Pharmacy 76.2 ml/min; Est GFR (African American) 105.2 ml/min; Est GFR (Non-African American) 90.8 ml/min
--- NOTE | 2023-08-08 11:07 | Discharge Summary ---
Date of Service August 08, 2023 Admission HPI Per Admitting Provider The patient is a 67-year-old female with a past medical history including tobacco use disorder, paroxysmal atrial tachycardia, acute respiratory failure with hypoxia, eustachian tube dysfunction, COPD, acid reflux, COPD exacerbations, pericardial effusion, pulmonary nodules, ALHAJI, anxiety with depression, and presently undergoing workup for lung transplant at [facility]. She has had some gradually worsening shortness of breath over the past week after having been seen in the emergency department on 07/27/2023. She has had a cough intermittently productive of yellow mucus, otherwise mucus has been clear. Principal Diagnosis COPD exacerbation Discharge Exam The patient is awake, alert and oriented 3, well developed and well nourished, normocephalic and atraumatic, lying in bed and in no acute distress. HEENT--PERRL, EOMI, mucous membranes and oropharynx mildly dry Neck--supple. No JVD. No bruits. Thyroid normal, trachea midline, no adenopathy. Heart--normal S1 and S2. No murmurs, rubs or gallops. Lungs--reduced air entry on auscultation. Abdomen--normal bowel sounds and soft. Extremities--no cyanosis or clubbing. No edema. Dermatologic--normal skin turgor, normal color, no abnormal lymph nodes, no rash. Neurologic--cranial nerves II through XII grossly intact. Rheumatologic--normal range of motion. Psychiatric--normal affect. Discharge Data Allergies Allergy/AdvReac Type Severity Reaction Status Date / Time aspirin AdvReac Intermediate GI SYMPTOMS Verified 08/01/23 20:55 Consultations 08/01/23 22:02 ED Decision to Admit Stat Hospital Course (1) Acute on chronic respiratory failure with hypoxia: (2) Acute exacerbation of chronic obstructive pulmonary disease (COPD): (3) Rhinovirus infection: (4) Failure of outpatient treatment: (5) History of tobacco use: (6) Lung transplant candidate: (7) Anxiety with depression: (8) Sleep apnea, obstructive: Plan Acute on chronic respiratory failure with hypoxia as characterized by air hunger, tachypnea, patient was breathing more than 24/min and using accessory muscles to breathe on admission Secondary to entero and rhinovirus and also strep pneumonia Upon further questioning, patient admits to new exposure to chickens that her daughter recently brought to the house. IgE was within normal limits She states she is a candidate for lung transplant at [facility] Solu-Medrol 120 mg IV in ED followed by 60 mg IV every 8 hours, will further de- escalate to 40 mg every 8 hours Guaifenesin extended release 1200 mg p.o. twice daily Duonebs every 4 hours while awake and every 2 hours when necessary. Also continue Roflumilast, Breo, Symbicort Shortness of breath has improved overall, cough has also improved Discharged on p.o. Augmentin for 5 more days. Hypokalemia- Resolved Obstructive sleep apnea- Patient will continue to use her own CPAP unit Anxiety with depression- Continue Lexapro Burning sensation around the genitalia: She did not show any evidence of UTI Hopefully discharge in 24 hours Total Time Total Time Spent Total Time Spent (In Minutes): 35 Discharge Plan Discharge Items Patient Disposition: Home - Self-Care Reason For Visit: ACUTE ON CHRONIC RESP FAIL W/ HYPOXIA, COPD EXACER Discharge Diagnosis: COPD exacerbation Activity: Resume your previous activity Non-emergency contact: Primary Care Provider and Radar Scientist Call non-emergency contact if: you have any medication questions Follow-up/Referrals: Kitty Ortega MD, FCCP [Physician] - 08/18/23 2:00 pm (with Isael Frank PA-C.) Maya Weller, OTR [Primary Care Provider] - 08/12/23 10:25 am Diet: Regular Addtl Attending Provider Instructions: Please make appointment to follow-up with her regular PCP and office 365 consultant on the transplant unit [facility]. As earlier discussed, please stay away from the chickens because they may have aggravated your COPD. Pending Studies at Discharge: No Stand-Alone Forms: My [facility], Smoking Cessation Medications and DC Order Prescriptions: New cefdinir 300 mg capsule 300 mg PO BID 5 Days Qty: 10 0RF Continued albuterol sulfate 90 mcg/actuation HFA aerosol inhaler 2 puff inhalation Q4H PRN (Reason: shortness of breath or wheezing) Qty: 8.5 3RF Rx Instructions: Generic for ProAir- Patient can not use Ventolin Trelegy Ellipta 100-62.5-25 mcg blister with device 1 inh inhalation DAILY Qty: 28 7RF ipratropium-albuterol 0.5 mg-3 mg(2.5 mg base)/3 mL solution for nebulization 3 ml INH QID PRN (Reason: Shortness Of Breath) Qty: 360 5RF (DME) CPAP Machine Misc See Rx Instructions .MEDSUPPLY Qty: 1 0RF Rx Instructions: Auto-titration CPAP with pressure range between 5 cm H2O and 15 cm H2O with humidification. Lifetime need. (DME) CPAP Supplies Misc See Rx Instructions .MEDSUPPLY Qty: 1 0RF Rx Instructions: Refitting of the mask. G47.33 (DME) Portable Oxygen E0431 Misc See Rx Instructions .Route Qty: 1 0RF Rx Instructions: portable oxygen concentrator- 3LPM on exertion via n/c. SILVIA:99 valsartan 80 mg tablet 80 mg PO QAM ergocalciferol (vitamin D2) 1,250 mcg (50,000 unit) capsule 1,250 mcg PO WK Rx Instructions: MONDAYS escitalopram oxalate [Lexapro] 10 mg tablet 15 mg PO QAM diphenhydramine HCl 50 mg Capsule 50 mg PO DAILY PRN (Reason: allergies) azithromycin 250 mg tablet 250 mg PO 3XWK Rx Instructions: TUE, TUE, & TUE. omeprazole magnesium [Prilosec OTC] 20 mg Tablet,Delayed Release (Dr/Ec) 20 mg PO QAM roflumilast 500 mcg tablet 500 mcg PO QAM Discharge Orders: Discharge Order (Routine); Ordered 08/08/23 Ordered By: Mikel Orellana/Other Patient Handouts: Preventing Pneumonia, Treating Pneumonia, Understanding Acute Rhinosinusitis Admission Data Admit Date/Time: 08/01/23 22:58 Attending Provider: Mikel Ga Admit Provider: Blaze Smith Primary Care Provider: Maya Weller Other Providers: Blaze Smith Other Interventions: Discharge Summary Assessment (RN) Last Done: 08/08/23 09:17 Coding Level of Care Code 91627 INP/OBS DISCH >30 MIN Diagnoses Acute on chronic respiratory failure with hypoxia J96.21 Acute exacerbation of chronic obstructive pulmonary disease (COPD) J44.1 Rhinovirus infection B34.8 Failure of outpatient treatment Z78.9 History of tobacco use Z87.891 Lung transplant candidate Z76.82 Anxiety with depression F41.8 Sleep apnea, obstructive G47.33 Time Spent (min) 35
== END 2023-08-08 10:22 | disposition home or self-care (01) | DRG 193 ==
LOC: ED 18:09 → SUATTDRO 22:58 → 2S 22:58

== ENCOUNTER 2023-09-01 11:08 | Inpatient (IN) ==
[2023-09-01 11:47] LABS: Basophils # (auto) 0.03 K/uL (0.00-0.20); Basophils % (auto) 0.5 %; Hematocrit (blood only) 34.6 % (37.0-47.0); Hemoglobin 11.6 g/dl (12.0-16.0); Immature Granulocytes # (auto) 0.02 K/uL (0.01-0.20); Immature Granulocytes % (auto) 0.3 %; Lymphocytes # (auto) 1.06 K/uL (1.20-3.40); Mean Corpuscular Hemoglobin 28.3 pg (25.0-34.0); Mean Corpuscular Hgb Conc 33.5 g/dL (32.0-36.0); Mean Corpuscular Volume 84.4 fL (80.0-100.0); Mean Platelet Volume 9.3 fL (9.4-12.4); Monocytes # (auto) 0.28 K/uL (0.11-0.59); Monocytes % (auto) 4.8 %; Neutrophils # (auto) 4.49 K/uL (1.40-6.50); Neutrophils % (auto) 76.4 %; Platelet Count 387 K/uL (130-400); RDW Coefficient of Variation 12.6 % (11.5-14.5); RDW Standard Deviation 38.1 fL (36.4-46.3); White Blood Count 5.88 K/ul (4.8-10.8)
[2023-09-01 12:07] LABS: Partial Thromboplastin Time 27 Seconds (21-31); Prothrombin Time 10.5 Seconds (9.0-12.0)
[2023-09-01 12:08] LABS: Albumin Globulin Ratio 1.3 (0.9-2); Albumin Level 3.9 gm/dl (3.4-5.0); BUN Creatinine Ratio 12.5 (10-20); Bilirubin,Total 0.5 mg/dl (0.2-1.0); Calcium 9.3 mg/dl (8.6-10.3); Est GFR (African American) 87.8 ml/min; Est GFR (Non-African American) 75.8 ml/min; Potassium 4.2 mmol/L (3.5-5.1); Total Protein 6.9 gm/dl (6.0-8.3)
[2023-09-01 12:13] LABS: Troponin I High Sensitivity 5.6 pg/ml (0-14)
[2023-09-01 12:32] LABS: Magnesium 1.9 mg/dl (1.7-2.4)
--- NOTE | 2023-09-01 12:37 | XRay Report ---
XR chest 1V portable HISTORY: 67 years-old Female Chest pain, nonspecific COMPARISON: 08/01/2023 TECHNIQUE: AP view the chest FINDINGS: Cardiac silhouette is mildly enlarged. No pneumothorax, pleural effusion or overt pulmonary edema. Em physema with chronic interstitial coarsening. Degenerative changes of the shoulders and spine. IMPRESSION: Emphysema without acute process. ACT 112: Negative or not required by law. The above report was generated using voice recognition software. It may contain grammatical, syntax o r spelling errors. Electronically signed by: Landon Lechuga M.D. 09/01/2023 12:36 PM
[2023-09-01] MEDS: methylPREDNISolone 125 MG/2 ML VIAL IV STA (12:56)
--- NOTE | 2023-09-01 13:46 | Emergency Department Note ---
Impression & Plan Acute exacerbation of chronic obstructive pulmonary disease (COPD), Hypoxia ED Provider Note ED Provider Note NAME: AVIVA MIMS AGE:67 SEX: Female : 1955 ARRIVES VIA: Private vehicle INFORMANT: Patient ED PROVIDER(s): Apple Handy DO CHIEF COMPLAINT: Increased shortness of breath HPI: This is a 67-year-old female who presents emergency department due to concern for increased difficulty breathing. Patient with a significant COPD history and does follow with pulmonology. She is also on the transplant list at [place]. Patient states she wears 3 L/min of oxygen chronically at home although in the last several days has turned it up to 5 due to increased difficulty breathing. She has noticed an increased cough, however no hemoptysis and no other change in sputum. She denies any rhinorrhea, nasal congestion, fevers or chills. She states no known sick contacts. Patient admitted last month for COPD exacerbation and found to have enterovirus/rhinovirus and developed pneumonia. She states she does occasionally suffer from seasonal allergies although she states she has not been outside recently. She states she does have chest heaviness and tightness with her increased difficulty breathing. She does continue to use her MDIs and nebulizer treatments at home without any significant improvement. Patient states this does feel like prior exacerbations of her underlying COPD/emphysema. PAST MEDICAL HISTORY:See Below PAST SURGICAL HISTORY:See Below FAMILY HISTORY:See Below SOCIAL HISTORY:See Below HOME MEDICATIONS:See Below ALLERGIES:See Below VITALS:See Below PHYSICAL EXAMINATION: GENERAL: alert, uncomfortable appearing, well nourished, moderate distress EYE EXAM: normal conjunctiva, PERRL and EOM's grossly intact OROPHARYNX: no exudate, no erythema, lips, buccal mucosa, and tongue normal and mucous membranes are moist NECK: supple, no nuchal rigidity, no adenopathy, non-tender LUNGS: Decreased bilaterally to auscultation. Normal chest wall mechanics, no w/r/r, increased pursed lip breathing HEART: no murmurs, S1 normal and S2 normal ABDOMEN: abdomen soft, non-tender, normo-active bowel sounds, no masses, no rebound or guarding. BACK: Back is symmetrical on inspection and there is no deformity SKIN: no rashes, petechiae, orbruising UPPER EXTREMITIES: upper extremities are grossly normal. FROM, nml pulses b/l. LOWER EXTREMITIES: No pitting edema. FROM, nml pulses b/l. NEURO EXAM: Normal sensorium, cranial nerves II-XII grossly intact, normal speech, no facial droop,nogross weakness of arms, no gross weakness of legs. Gross sensation intact. No ataxia. Vital Signs: reviewed and remarkable Differential Diagnosis: pneumonia, bronchitis, COPD/Asthma exacerbation, pneumothorax, pulmonary embolism, congestive heart failure, acute coronary syndrome, as well as others were considered MEDICAL DECISION MAKING: This is a 67-year-old female who presents emergency department due to concern for increased difficulty breathing. Patient with history of severe COPD and frequent hospitalizations. She does wear oxygen chronically at home. Patient had increased her oxygen at home due to persistent sense of being short of breath, did notice increased cough. She was afebrile and otherwise vital signs stable on arrival. Labs drawn and sent, IV established, EKG and chest x-ray performed bedside interpreted by me and patient monitor on telemetry. She was given IV Solu-Medrol, IV magnesium, and started on IV continuous nebulizer treatment. Patient was noted while on 5 to 6 L via nasal cannula and with the nebulizer running to desat to 84%. She did not complain of any worsening shortness of breath. No pleural effusion or focal consolidation noted on chest x-ray. Bio fire negative. Patient's troponin negative. I do not suspect occult ACS, PE, pericardial effusion, pericarditis/myocarditis, or pleural effusion. Patient's symptoms and presentation consistent with prior episodes of significant COPD exacerbation. Patient given doxycycline additionally. Case discussed with the hospitalist team for additional evaluation and management. Consultation(s): 1515: Discussed with Dr. New, [facility] hospitalist team, for additional evaluation and management. ER Treatment Provided: See below 1502: Patient updated on results. Patient was noted while on the continuous nebulizer treatment and her 5 L via nasal cannula to have oxygen saturations of 84%. Patient did not report any worsening shortness of breath despite the hypoxia. Diagnostics Interpreted By Me: -ECG: Normal sinus at 87, normal axis, normal intervals, no acute ST/T wave changes -Cardiac Monitoring: An order was placed for continuous cardiac monitoring. The monitor shows a rate of 68 with normal sinus rhythm. -Laboratory studies: As stated above and show below. -Imaging studies: X-ray Chest: A single view study of the chest was reviewed and was negative for cardiomegaly, focal infiltrate, effusion, pulmonary edema, or wide mediastinum. Triage Nursing Note Reviewed Prior/Outside Records Reviewed -prior discharge summary reviewed Critical Care: Critical care of 36 min performed to assess and manage high likelihood of life- threatening dyspnea, involving labs and imaging performed with assessment to evaluate dyspnea diagnosis with frequent reassessment. This time includes bedside time, treatment discussions with patient/family/consultants, documentation time and excludes procedure time. Past Med/Surg History Problem List (Updated 09/02/23 @ 17:24 by Apple Handy DO) Hypoxia (Acute) Failure of outpatient treatment (Acute) Acute exacerbation of chronic obstructive pulmonary disease (COPD) (Acute) Encounter for pre-operative examination Rhinovirus infection (Acute) Acute and chronic respiratory failure (Acute) Parainfluenza type 1 infection (Acute) Acute pericardial effusion (Acute) Acute exacerbation of chronic obstructive pulmonary disease (Acute) Lower back pain Goals of care, counseling/discussion Palliative care encounter Pneumonia (Acute) Acute respiratory failure with hypoxia and hypercapnia Failure of outpatient treatment (Acute) Paroxysmal atrial tachycardia Leukocytosis Acute exacerbation of chronic obstructive pulmonary disease (Acute) SOB (shortness of breath) (Acute) Acid reflux Influenza A (Acute) Acute respiratory failure with hypercapnia COVID-19 (Acute) Chest pain (Acute) Ex-smoker COPD (chronic obstructive pulmonary disease) (Acute) Chronic respiratory failure with hypoxia (Acute) COVID (Acute) COVID Dyspnea Cough Fever Acute on chronic respiratory failure with hypoxia (Acute) Dysfunction of both eustachian tubes Acute respiratory failure with hypoxia Paroxysmal atrial tachycardia Acute dyspnea (Acute) History of tobacco use Lung transplant candidate Sacroiliitis Multiple pulmonary nodules no biopsies, monitored COPD exacerbation (Acute) [facility] 03/2023 Chronic respiratory failure SOB (shortness of breath) (Acute) "all the time" Anxiety with depression Chronic obstructive pulmonary disease with hypoxia 3L O2 tx, [facility] Pulm Dr. Dhillon Sleep apnea, obstructive (Chronic) CPAP Medical History Family history of paroxysmal atrial tachycardia History of COVID-19 (~2021) x3 sob, cough, fatigue; resolved History of recent pneumonia (~09/2022) Surgical History Hx of cardiac catheterization (~2022) Had in [place] as part of work up for [place] to get on Lung Transplant list, no stents Hx of colonoscopy with polypectomy Hx of bilateral cataract extraction History of partial hysterectomy History of carpal tunnel surgery of right wrist History of broken collarbone sx to repair History of tooth extraction all teeth H/O partial thyroidectomy (~1989) d/t hemorrhaging?--unknown cause, no meds Family History Mother , from ovarian cancer Cancer Ovarian Sister Cancer Ovarian Father COPD (chronic obstructive pulmonary disease) Other No family history of adverse response to anesthesia Social History Smoking Status: Former smoker Tobacco Type: Cigarettes Age Started Using Tobacco: 17; Age Quit Using Tobacco: 64; packs per day: 1; Cigarettes Per Day: < 1PPD; Second Hand Exposure: No; Do You Dip or Chew Tobacco: No; Hx Alcohol Use: No Hx Substance Use: No Preferred Language: Cambodian 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 Ability: Effective Forensic Audit Expert 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 Beliefs That Will Affect Care: None marital status: Current Living Situation: Family Current Living Situation Comment: Lives with daughter Virgen Feels Safe at Home: Yes Assistive Devices: Oxygen - Continuous and Wheelchair Allergies Allergies Allergy/AdvReac Type Severity Reaction Status Date / Time aspirin AdvReac Intermediate GI SYMPTOMS Verified 09/01/23 15:29 Home Meds Home Medications Medication Instructions Recorded Confirmed escitalopram oxalate 10 mg tablet 15 mg PO QAM 08/05/22 09/01/23 (Lexapro) ergocalciferol (vitamin D2) 1,250 1,250 mcg PO WK 03/26/23 09/01/23 mcg (50,000 unit) capsule azithromycin 250 mg tablet 250 mg PO 3XWK 07/06/23 09/01/23 roflumilast 500 mcg tablet 500 mcg PO QAM 07/06/23 09/01/23 fexofenadine 180 mg tablet 180 mg PO DAILY 09/01/23 09/01/23 Previous Rx's Medication Instructions Recorded CPAP Machine #1 ea 12/06/19 CPAP Supplies #1 ea 05/11/21 Portable Oxygen #1 ea 09/15/22 fluticasone fur. 100 mcg-umeclid 1 inh inhalation DAILY #28 ea 06/08/23 62.5 mcg-vilant 25 mcg inhalat.powder (Trelegy Ellipta) ipratropium 0.5 mg-albuterol 3 mg 3 ml inhalation QID PRN Shortness 06/08/23 (2.5 mg base)/3 mL nebulization Of Breath #360 mL soln albuterol sulfate 90 mcg/actuation 2 puff inhalation Q4H PRN 06/21/23 aerosol inhaler shortness of breath or wheezing #8.5 grams Results & Data (ED) Vital Signs Vital Signs - 24 hr 09/01/23 11:08 09/01/23 11:12 09/01/23 11:16 Temperature 36.8 C Temperature Source Temporal Artery Scan Pulse Rate 82 Pulse Rate [Right Finger] Pulse Rhythm Pulse Rhythm [Right Finger] Pulse Strength [Right Finger] Respiratory Rate 18 Respiratory Effort / Characteristics Non-Labored Spontaneous Respiratory Depth Normal Respiratory Pattern Blood Pressure 149/90 H Blood Pressure [Right Arm] Blood Pressure Mean 109 Blood Pressure Mean [Right Arm] Blood Pressure Position Sitting Blood Pressure Position [Right Arm] Pulse Oximetry 95 92 Oxygen Delivery Method Nasal Cannula Nasal Cannula Nasal Cannula Oxygen Flow Rate 2 3 4 Sepsis Recent Fever Within 48 Hours No Sepsis New/Unexplained Change in Mental Status No Sepsis Action Taken by Nursing No Action Required 09/01/23 11:16 09/01/23 11:55 09/01/23 12:36 Temperature Temperature Source Pulse Rate 88 66 Pulse Rate [Right Finger] 78 Pulse Rhythm Regular Pulse Rhythm [Right Finger] Regular Pulse Strength [Right Finger] Normal Respiratory Rate 22 24 Respiratory Effort / Characteristics Non-Labored Spontaneous Respiratory Depth Normal Respiratory Pattern Regular Blood Pressure Blood Pressure [Right Arm] 150/67 H Blood Pressure Mean Blood Pressure Mean [Right Arm] 94 Blood Pressure Position Blood Pressure Position [Right Arm] Sitting Pulse Oximetry 92 95 Oxygen Delivery Method Room Air Nasal Cannula Oxygen Flow Rate 3 Sepsis Recent Fever Within 48 Hours Sepsis New/Unexplained Change in Mental Status Sepsis Action Taken by Nursing Laboratory Data 09/02/23 06:13 09/02/23 06:13 Lab Results 09/01/23 09/01/23 Range/Units 11:25 11:25 WBC 5.88 (4.8-10.8) K/ul RBC 4.10 L (4.20-5.40) M/uL Hgb 11.6 L (12.0-16.0) g/dl Hct 34.6 L (37.0-47.0) % MCV 84.4 (80.0-100.0) fL MCH 28.3 (25.0-34.0) pg MCHC 33.5 (32.0-36.0) g/dL RDW Std Deviation 38.1 (36.4-46.3) fL RDW Coeff of Audrey 12.6 (11.5-14.5) % Plt Count 387 (130-400) K/uL MPV 9.3 L (9.4-12.4) fL Immature Gran % (Auto) 0.3 % Neut % (Auto) 76.4 % Lymph % (Auto) 18.0 % Edmunds % (Auto) 4.8 % Eos % (Auto) 0.0 % Baso % (Auto) 0.5 % Neut # (Auto) 4.49 (1.40-6.50) K/uL Lymph # (Auto) 1.06 L (1.20-3.40) K/uL Edmunds # (Auto) 0.28 (0.11-0.59) K/uL Eos # (Auto) 0.00 (0.00-0.50) K/uL Baso # (Auto) 0.03 (0.00-0.20) K/uL Immature Gran # (Auto) 0.02 (0.01-0.20) K/uL PT 10.5 (9.0-12.0) Seconds INR 1.0 (0.9-1.1) APTT 27 (21-31) Seconds PTT Ratio 1.0 Sodium 137 (136-145) mmol/L Potassium 4.2 (3.5-5.1) mmol/L Chloride 104 (98-107) mmol/L Carbon Dioxide 25 (21-32) mmol/L Anion Gap 8 (3-11) BUN 10 (6-23) mg/dl Creatinine 0.80 (0.6-1.2) mg/dl Est Cr Clr Drug Dosing 62.0 ml/min Est GFR ( Amer) 87.8 ml/min Est GFR (Non-Af Amer) 75.8 ml/min BUN/Creatinine Ratio 12.5 (10-20) Glucose 146 H (70-99(Fasting)) mg/dl Calcium 9.3 (8.6-10.3) mg/dl Magnesium 1.9 Cancelled (1.7-2.4) mg/dl Total Bilirubin 0.5 (0.2-1.0) mg/dl AST 15 (13-39) U/L ALT 11 (7-52) U/L Alkaline Phosphatase 155 H (34-104) U/L Troponin I High Sens 5.6 (0-14) pg/ml B-Natriuretic Peptide 106 H (0-100) pg/ml Total Protein 6.9 (6.0-8.3) gm/dl Albumin 3.9 (3.4-5.0) gm/dl Globulin 3.0 (2.5-4.0) gm/dl Albumin/Globulin Ratio 1.3 (0.9-2) Administered Medications Acetaminophen (Acetaminophen 325 Mg Tab) 650 mg PO Q6H PRN PRN Reason: pain(1-4),headache,fever Stop: 10/01/23 16:14 Last Admin: 09/01/23 20:55 Dose: 650 mg Documented By: AEM Albuterol (Albut/Ipratrop 3mg/0.5mg Neb 3 Ml Vial) 3 ml NEB QIDR [facility]; Protocol Stop: 10/01/23 18:59 Last Admin: 09/02/23 15:37 Dose: 3 ml Documented By: [id number] Admin: 09/02/23 11:24 Dose: 3 ml Documented By: [id number] Admin: 09/02/23 07:26 Dose: Not Given Documented By: Admin: 09/01/23 20:32 Dose: Not Given Documented By: EML Budesonide (Budesonide 0.5 Mg/2 Ml Vial (Pulmicort)) 0.5 mg NEB BIDR [facility] Stop: 10/01/23 18:59 Last Admin: 09/02/23 07:26 Dose: 0.5 mg Documented By: Admin: 09/01/23 20:31 Dose: 0.5 mg Documented By: EML Escitalopram Oxalate (Escitalopram Oxalate 10 Mg Tab) [facility] Stop: 10/02/23 08:59 Last Admin: 09/02/23 08:48 Dose: 15 mg Documented By: MES Fexofenadine HCl (Fexofenadine Hcl 180 Mg Tab) 180 mg PO DAILY QIAN Stop: 10/02/23 08:59 Last Admin: 09/02/23 08:48 Dose: 180 mg Documented By: AMINTA Formoterol Fumarate (Formoterol 20 Mcg/2 Ml Vial) 20 mcg NEB BIDR QIAN Stop: 10/01/23 18:59 Last Admin: 09/02/23 07:26 Dose: 20 mcg Documented By: Admin: 09/01/23 20:31 Dose: 20 mcg Documented By: MATIAS Guaifenesin (Guaifenesin 600 Mg Tabcr) 600 mg PO Q12 QIAN Stop: 10/01/23 20:59 Last Admin: 09/02/23 08:48 Dose: 600 mg Documented By: Admin: 09/01/23 21:03 Dose: 600 mg Documented By: LUCINA Doxycycline Hyclate 100 mg/ (Dextrose) 100 mls @ 50 mls/hr IV Q12H QIAN Stop: 09/02/23 23:00 Last Infusion: 09/02/23 10:40 Dose: Infused Documented By: Admin: 09/02/23 08:48 Dose: 50 mls/hr Documented By: Infusion: 09/01/23 23:12 Dose: Infused Documented By: Admin: 09/01/23 21:00 Dose: 50 mls/hr Documented By: LUCINA Roflumilast (Roflumilast 500 Mcg Tab) 500 mcg PO QAM QIAN Stop: 10/02/23 08:59 Last Admin: 09/02/23 08:49 Dose: 500 mcg Documented By: AMINTA Discontinued Medications Albuterol (Albut/Ipratrop 3mg/0.5mg Neb 3 Ml Vial) 12 ml NEB ONE ONE; Protocol Stop: 09/01/23 13:17 Last Admin: 09/01/23 14:11 Dose: 12 ml Documented By: VIRAJ Doxycycline Hyclate (Doxycycline Hyclate 100 Mg Cap) 100 mg PO NOW STA Stop: 09/01/23 14:02 Last Admin: 09/01/23 14:11 Dose: 100 mg Documented By: VIRAJ Methylprednisolone 60 mg/ (Syringe) 0.96 mls @ 1.5 mls/min IV TID QIAN Stop: 10/02/23 08:59 Last Admin: 09/02/23 08:49 Dose: 1.5 mls/min Documented By: MES Methylprednisolone (Methylprednisolone 125 Mg/2 Ml Vial) 60 mg IV NOW STA Stop: 09/01/23 12:22 Last Admin: 09/01/23 12:56 Dose: 60 mg Documented By: SWNicole Methylprednisolone (Methylprednisolone 125 Mg/2 Ml Vial) 60 mg IV NOW ONE Stop: 09/01/23 18:01 Last Admin: 09/01/23 17:50 Dose: 60 mg Documented By: ROBINSON Imaging Data Radiologist's Impression: Chest X-Ray 09/01/23 11:16 XR chest 1V portable HISTORY: 67 years-old Female Chest pain, nonspecific COMPARISON: 08/01/2023 TECHNIQUE: AP view the chest FINDINGS: Cardiac silhouette is mildly enlarged. No pneumothorax, pleural effusion or overt pulmonary edema. Emphysema with chronic interstitial coarsening. Degenerative changes of the shoulders and spine. IMPRESSION: Emphysema without acute process. ACT 112: Negative or not required by law. The above report was generated using voice recognition software. It may contain grammatical, syntax or spelling errors. Electronically signed by: Landon Lechuga M.D. 09/01/2023 12:36 PM Discharge Plan Visit Data Chief Complaint: Shortness of Breath/Dyspnea Stated Complaint: HEAVY CHEST, LOW OXYGEN, SOB ED Provider: Apple Handy Discharge Problem: Acute exacerbation of chronic obstructive pulmonary disease (COPD), Hypoxia Patient Disposition: Admitted As Inpatient Discharge Instructions Interventions: ED Discharge Assessment Last Done: 09/01/23 20:24
[2023-09-01 13:59] LABS: Adenovirus PCR Not Detected (NotDetected); Bordetella parapertussis PCR Not Detected (NotDetected); Bordetella pertussis PCR Not Detected (NotDetected); Chlamydia pneumoniae PCR Not Detected (NotDetected); Coronavirus 229E PCR Not Detected (NotDetected); Coronavirus CoV-2 (COVID19)PCR Not Detected (NotDetected); Coronavirus HKU1 PCR Not Detected (NotDetected); Coronavirus NL63 PCR Not Detected (NotDetected); Coronavirus OC43PCR Not Detected (NotDetected); Human Metapneumovirus PCR Not Detected (NotDetected); Influenza A PCR Not Detected (NotDetected); Influenza B PCR Not Detected (NotDetected); Mycoplasma pneumoniae PCR Not Detected (NotDetected); Parainfluenza Virus 1 PCR Not Detected (NotDetected); Parainfluenza Virus 2 PCR Not Detected (NotDetected); Parainfluenza Virus 3 PCR Not Detected (NotDetected); Parainfluenza Virus 4 PCR Not Detected (NotDetected); Respiratory Syncytial VirusPCR Not Detected (NotDetected); Rhinovirus/Enterovirus PCR Not Detected (NotDetected)
[2023-09-01] MEDS: ALBUT/IPRATROP 3MG/0.5MG NEB 3 ML VIAL NEB ONE (14:11)
[2023-09-01] MEDS: DOXYCYCLINE HYCLATE 100 MG CAP PO STA (14:11)
--- NOTE | 2023-09-01 15:57 | History & Physical Report ---
Date of Service September 01, 2023 Assessment & Plan (1) Acute exacerbation of chronic obstructive pulmonary disease (COPD): Plan: -Admit to med/tele -Currently stable on 4L NC at rest and in no respiratory distress -Presented to the ED with approximately 72 hours of increased cough, sputum production, TAPIA, and O2 requirements -History and exam are consistent with COPD exacerbation -CXR is negative for pneumonia or volume overload -Full respiratory biofire negative -S/P hour long duoneb, 60 mg IV solu-medrol, and 100 mg IV doxycycline -Continue with current treatment plan: >Q12H doxycyline >60 mg IV Solu-medrol TID >BID Guaifenesin >QIDr DuoNebs >BIDr budesonide/formoterol nebs >Home Roflumilast >Incentive spirometry, flutter therapy >PRN O2 to keep SpO2 between 89-92% -Will obtain sputum culture with gram stain -BL SCD's for DVT PPX -HH diet -AM CBC, CMP, mag, PT/INR (2) Paroxysmal atrial tachycardia: Plan: -Currently in NSR -Continue to monitor (3) Sleep apnea, obstructive: Plan: -HS CPAP ordered Plan The patient was discussed with Dr. New at the time of the admission History of Present Illness Chief Complaint: SOB, chest discomfort, increased O2 requirements Primary Care Provider: JAXON Valles is a 67 year old female with a PMH significant for tobacco use disorder, paroxysmal atrial tachycardia, COPD, acid reflux, pericardial effusion, ALHAJI, anxiety with depression, and presently undergoing workup for lung transplant at [facility] who presented to the [facility] ED on 09/01/23 with complaints of increased SOB and O2 requirements from baseline and substernal chest discomfort. On arrival to the ED she was noted to be stable on 3-4L NC and hypertensive at 149/90. Labs including CBC, CMP, high sen trop, and full respiratory biofire were unremarkable. Chest xray was read as emphysema without acute findings. ECG showed NSR without acute changes. Prior to admission the p atient was given 60 mg IV solu-medrol, 100 mg IV doxycycline, and an hour long albuterol nebulizer treatment. At the time of the exam the patient was sitting in bed in no acute distress. She states that she had been feeling well after her last admission for COPD exacerbation due to rhinovirus infection last month. Approximately 3 days ago she started to developed increased frequency of her chronic cough, increased white sputum production, increased TAPIA with chest tightness, and increased O2 demands (4-5L at rest). She denies recent sick contacts, has not used tobacco recently, and does not have anyone else in her home who smokes or vapes. She has not been using her HS CPAP as she is waiting for new humidifying equipment to be delivered. Denies recent fever, chills, chest discomfort at rest, hemoptysis, abd pain, nausea, vomiting, diarrhea, dysuria, hematuria, melena, LE swelling, and recent trauma. Her chest tightness has significantly improved after the hour long DuoNeb treatment in the ED. She is a full code and her daughter is her POA. She underwent the final testing early this week to determine if she will be eligible for a lung transplant, she is tentatively awaiting the results. Please refer to Dr. New's attestation for any changes to the treatment plan Allergies Allergy/AdvReac Type Severity Reaction Status Date / Time aspirin AdvReac Intermediate GI SYMPTOMS Verified 09/01/23 15:29 Home Medications Medication Instructions Recorded Confirmed Type CPAP Machine #1 ea 12/06/19 08/15/23 Rx CPAP Supplies #1 ea 05/11/21 08/15/23 Rx escitalopram oxalate 10 mg tablet 15 mg PO QAM 08/05/22 09/01/23 History (Lexapro) Portable Oxygen #1 ea 09/15/22 08/15/23 Rx ergocalciferol (vitamin D2) 1,250 1,250 mcg PO WK 03/26/23 09/01/23 History mcg (50,000 unit) capsule fluticasone fur. 100 mcg-umeclid 1 inh inhalation DAILY #28 ea 06/08/23 09/01/23 Rx 62.5 mcg-vilant 25 mcg inhalat.powder (Trelegy Ellipta) ipratropium 0.5 mg-albuterol 3 mg 3 ml inhalation QID PRN Shortness 06/08/23 09/01/23 Rx (2.5 mg base)/3 mL nebulization Of Breath #360 mL soln albuterol sulfate 90 mcg/actuation 2 puff inhalation Q4H PRN 06/21/23 09/01/23 Rx aerosol inhaler shortness of breath or wheezing #8.5 grams azithromycin 250 mg tablet 250 mg PO 3XWK 07/06/23 09/01/23 History roflumilast 500 mcg tablet 500 mcg PO QAM 07/06/23 09/01/23 History fexofenadine 180 mg tablet 180 mg PO DAILY 09/01/23 09/01/23 History Past Med/Surg History Problem List (Updated 09/01/23 @ 13:45 by Apple Handy DO) Failure of outpatient treatment (Acute) Acute exacerbation of chronic obstructive pulmonary disease (COPD) (Acute) Encounter for pre-operative examination Rhinovirus infection (Acute) Acute and chronic respiratory failure (Acute) Parainfluenza type 1 infection (Acute) Acute pericardial effusion (Acute) Acute exacerbation of chronic obstructive pulmonary disease (Acute) Lower back pain Goals of care, counseling/discussion Palliative care encounter Pneumonia (Acute) Acute respiratory failure with hypoxia and hypercapnia Failure of outpatient treatment (Acute) Paroxysmal atrial tachycardia Leukocytosis Acute exacerbation of chronic obstructive pulmonary disease (Acute) SOB (shortness of breath) (Acute) Acid reflux Influenza A (Acute) Acute respiratory failure with hypercapnia COVID-19 (Acute) Chest pain (Acute) Ex-smoker COPD (chronic obstructive pulmonary disease) (Acute) Chronic respiratory failure with hypoxia (Acute) COVID (Acute) COVID Dyspnea Cough Fever Acute on chronic respiratory failure with hypoxia (Acute) Dysfunction of both eustachian tubes Acute respiratory failure with hypoxia Paroxysmal atrial tachycardia Acute dyspnea (Acute) History of tobacco use Lung transplant candidate Sacroiliitis Multiple pulmonary nodules no biopsies, monitored COPD exacerbation (Acute) [facility] 03/2023 Chronic respiratory failure SOB (shortness of breath) (Acute) "all the time" Anxiety with depression Chronic obstructive pulmonary disease with hypoxia 3L O2 tn, [facility] Pulm Dr. Dhillon Sleep apnea, obstructive (Chronic) CPAP Medical History Family history of paroxysmal atrial tachycardia History of COVID-19 (~2021) x3 sob, cough, fatigue; resolved History of recent pneumonia (~09/2022) Surgical History Hx of cardiac catheterization (~2022) Had in [place] as part of work up for [facility] to get on Lung Transplant list, no stents Hx of colonoscopy with polypectomy Hx of bilateral cataract extraction History of partial hysterectomy History of carpal tunnel surgery of right wrist History of broken collarbone sx to repair History of tooth extraction all teeth H/O partial thyroidectomy (~1989) d/t hemorrhaging?--unknown cause, no meds Family History Mother , from ovarian cancer Cancer Ovarian Sister Cancer Ovarian Father COPD (chronic obstructive pulmonary disease) Other No family history of adverse response to anesthesia Social History Smoking Status: Former smoker Tobacco Type: Cigarettes Age Started Using Tobacco: 17; Age Quit Using Tobacco: 64; packs per day: 1; Cigarettes Per Day: < 1PPD; Second Hand Exposure: No; Do You Dip or Chew Tobacco: No; Hx Alcohol Use: No Hx Substance Use: No Preferred Language: Mauritian 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 Ability: Effective Software Support Analyst 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 Beliefs That Will Affect Care: None marital status: Current Living Situation: Family Current Living Situation Comment: Lives with daughter Virgen Feels Safe at Home: Yes Assistive Devices: CPAP, Denture - Upper, Denture - Lower, Oxygen - Continuous and Wheelchair Physical Exam Physical Exam: Physical Exam: General: In no acute distress, stated age, chronically ill appearing but non- toxic HEENT: Normocephalic, atraumatic, no scleral icterus, pupils around round, symmetrical, and reactive to light, moist mucus membranes, trachea midline, no thyromegaly Chest/Pulm: No respiratory distress, symmetrical chest expansion, scattered expiratory wheezing throughout Cardiac: RRR, no murmurs noted Abdomen: Negative for ascites and bruising, normoactive bowel sounds, soft, non-tender to palpation throughout Musculoskeletal: Symmetrical and without signs of acute trauma, upper and lower extremities with full ROM, no atrophy, spasticity, or flaccidity Extremities: Radial, dorsalis pedis, and posterior tibial pulses are intact and symmetrical, no edema noted in the BL LE's Skin: Warm, dry, no rashes , lesions, or scars noted Neuro: Alert and oriented to person, place, month, year, and president, no focal defects, no tremors noted Psych: No acute distress, calm and cooperative during the exam Results & Data Results & Data Vital Signs (Past 12 Hours) Vital Signs Temp Pulse Pulse Resp BP BP Pulse Ox 09/01/23 15:48 70 24 172/83 H 96 09/01/23 12:36 66 09/01/23 11:55 78 24 150/67 H 95 09/01/23 11:16 88 22 92 09/01/23 11:16 09/01/23 11:12 36.8 C 82 18 149/90 H 92 09/01/23 11:08 95 O2 Del Method O2 Flow Rate 09/01/23 15:48 Nasal Cannula 2 09/01/23 12:36 09/01/23 11:55 Nasal Cannula 3 09/01/23 11:16 Room Air 09/01/23 11:16 Nasal Cannula 4 09/01/23 11:12 Nasal Cannula 3 09/01/23 11:08 Nasal Cannula 2 Laboratory Results Abnormal lab results 09/01/23 Range/Units 11:25 RBC 4.10 L (4.20-5.40) M/uL Hgb 11.6 L (12.0-16.0) g/dl Hct 34.6 L (37.0-47.0) % MPV 9.3 L (9.4-12.4) fL Lymph # (Auto) 1.06 L (1.20-3.40) K/uL Glucose 146 H (70-99(Fasting)) mg/dl Alkaline Phosphatase 155 H (34-104) U/L B-Natriuretic Peptide 106 H (0-100) pg/ml Diagnostic Findings Abnormal lab results 09/01/23 Range/Units 11:25 RBC 4.10 L (4.20-5.40) M/uL Hgb 11.6 L (12.0-16.0) g/dl Hct 34.6 L (37.0-47.0) % MPV 9.3 L (9.4-12.4) fL Lymph # (Auto) 1.06 L (1.20-3.40) K/uL Glucose 146 H (70-99(Fasting)) mg/dl Alkaline Phosphatase 155 H (34-104) U/L B-Natriuretic Peptide 106 H (0-100) pg/ml ECG Additional Comments: Normal sinus rhythm Normal ECG When compared with ECG of 01-AUG-2023 18:39, Nonspecific T wave abnormality, improved in Anterior leads Code Status & VTE Plan Code Status Full code VTE Prophylaxis Plan VTE Prophylaxis will be ordered: Yes PG Care Time/CCT Total # of Minutes Spent Total Time Spent with Patient: Total time spent is greater than 50% in coordination of care (as documented) at patient's floor/unit and/or counseling patient: Coding [place] [address] INT INP/OBS CARE 2/55MIN Patient Type Established History Comprehensive Exam Comprehensive Medical Decision Making Moderate Complexity Diagnoses Acute exacerbation of chronic obstructive pulmonary disease (COPD) J44.1 Paroxysmal atrial tachycardia I47.1 Sleep apnea, obstructive G47.33
[2023-09-01] MEDS: methylPREDNISolone 125 MG/2 ML VIAL IV ONE (17:50)
[2023-09-01] MEDS: BUDESONIDE 0.5 MG/2 ML VIAL (PULMICORT) NEB SCH (20:31)
[2023-09-01] MEDS: FORMOTEROL 20 MCG/2 ML VIAL NEB SCH (20:31)
[2023-09-01] MEDS: ALBUT/IPRATROP 3MG/0.5MG NEB 3 ML VIAL NEB SCH (20:32)
[2023-09-01] MEDS: ACETAMINOPHEN 325 MG TAB PO PRN (20:55)
[2023-09-01] MEDS: DOXYCYCLINE HYCLATE 100 MG in DEXTROSE 5% MINI-B 100 ML IV SCH (21:00)
[2023-09-01] MEDS: guaiFENesin 600 MG TABCR PO SCH (21:03)
[2023-09-02 06:49] LABS: Basophils # (auto) 0.01 K/uL (0.00-0.20); Basophils % (auto) 0.1 %; Hematocrit (blood only) 33.6 % (37.0-47.0); Hemoglobin 11.4 g/dl (12.0-16.0); Immature Granulocytes # (auto) 0.04 K/uL (0.01-0.20); Immature Granulocytes % (auto) 0.5 %; Lymphocytes # (auto) 1.12 K/uL (1.20-3.40); Lymphocytes % (auto) 15.3 %; Mean Corpuscular Hemoglobin 28.4 pg (25.0-34.0); Mean Corpuscular Hgb Conc 33.9 g/dL (32.0-36.0); Mean Corpuscular Volume 83.6 fL (80.0-100.0); Mean Platelet Volume 9.3 fL (9.4-12.4); Monocytes # (auto) 0.37 K/uL (0.11-0.59); Neutrophils % (auto) 79.1 %; Platelet Count 370 K/uL (130-400); RDW Coefficient of Variation 12.4 % (11.5-14.5); RDW Standard Deviation 37.7 fL (36.4-46.3); Red Blood Count 4.02 M/uL (4.20-5.40); White Blood Count 7.34 K/ul (4.8-10.8)
[2023-09-02 07:09] LABS: BUN Creatinine Ratio 23.6 (10-20); Calcium 9.1 mg/dl (8.6-10.3); Creatinine Clr Calc Pharmacy 56.2 ml/min; Est GFR (African American) 77.2 ml/min; Est GFR (Non-African American) 66.6 ml/min; Potassium 4.5 mmol/L (3.5-5.1)
[2023-09-02 07:18] LABS: Prothrombin Time 10.4 Seconds (9.0-12.0)
[2023-09-02] MEDS: ESCITALOPRAM OXALATE 10 MG TAB PO SCH (08:48)
[2023-09-02] MEDS: FEXOFENADINE HCL 180 MG TAB PO SCH (08:48)
[2023-09-02] MEDS: methylPREDNISolone 60 MG in SYRINGE 0 ML IV SCH ×2 (08:49→20:53)
[2023-09-02] MEDS: ROFLUMILAST 500 MCG TAB PO SCH (08:49)
[2023-09-02] MEDS ORDERED: methylPREDNISolone 125 MG/2 ML VIAL IV SCH (09:00)
--- NOTE | 2023-09-02 10:13 | Electrocardiogram Report ---
Test Reason : Blood Pressure : / mmHG Vent. Rate : 087 BPM Atrial Rate : 087 BPM P-R Int : 154 ms QRS Dur : 084 ms QT Int : 370 ms P-R-T Axes : 082 082 081 degrees QTc Int : 445 ms Normal sinus rhythm Normal ECG When compared with ECG of 01-AUG-2023 18:39, Nonspecific T wave abnormality, improved in Anterior leads Confirmed by Arthur Pack ([id number]) on 09/02/2023 10:12:47 AM Referred By: REFERRED SELF Confirmed By:Glenroy Pack
--- NOTE | 2023-09-02 12:40 | Hospitalist Progress Note ---
Date of Service September 02, 2023 Assessment & Plan (1) Acute exacerbation of chronic obstructive pulmonary disease (COPD): Plan: Improving - Currently stable on 4L NC at rest and in no respiratory distress, wean as able to keep sat 88-92% - CXR is negative for pneumonia or volume overload - Full respiratory biofire negative - Continue with current treatment plan: Doxycycline 100mg BID (will transition to oral tomorrow AM), Solumedrol 60mg IV decreased to BID from TID, Mucinex, nebs and Budesonide + Pulmicort nebs BID - Continue Roflumilast, follows with pulm, Dr. Ortega - Incentive spirometry, flutter therapy - Sputum culture with gram stain - ?contaminated specimen - Reviewed cbc and bmp this AM, no significant abnormalities (2) Paroxysmal atrial tachycardia: Plan: Chronic/stable - Currently in NSR, not on any rate reducing medications, antiarrhythmics or anticoagulation (3) Sleep apnea, obstructive: Plan: Chronic/stable - HS CPAP ordered Plan Downgrade off tele to med/surg. Observe another day, anticipate home tomorrow. Patient is approaching baseline. Will need to f/u with pulmonology and her PCP. Plan d/w Dr. Camp. Admission and Anticipated Discharge Date Admission Date: September 01, 2023 Subjective Patient was seen on daily rounds this morning. She reports that her breathing is labored with minimal exertion, such as ambulating to the bathroom. She notes that this is her baseline. She normally is on 3.5L of supplemental oxygen at home. Over the last few days she has been requiring 4L. She denies chest pain and is afebrile. She reports that she is undergoing testing for a lung transplant with [place]. She does not feel dramatically improved from yesterday and is hoping to stay an additional day in the hospital before returning home. Review of Systems 2 Review of Systems: All systems reviewed and are unremarkable except as noted in HPI and below. Denies fever, chills, fatigue, headache, nasal congestion, sore throat, cough, chest pain, palpitations, orthopnea, PND, abdominal pain, n/v/d, constipation, dysuria, hematuria, frequency, back pain, joint pain or swelling, easy bruising or bleeding, skin lesions or rashes. Physical Exam 2 Physical Exam: GENERAL: 67 yo well-developed, well-nourished F who appears older than stated age. No distress. LUNGS: Nonlabored. Poor air exchange and diminished breath sounds throughout. No wheezes or rhonchi appreciated. CARDIOVASCULAR: Regular rate and rhythm. No M/G/R. ABDOMEN: Soft, non-tender and non-distended. Bowel sounds normoactive x 4 quad. EXTREMITIES: No edema. Non-tender. Peripheral pulses +2/4. SKIN: Warm, dry, intact. No rashes or lesions. Results & Data Results & Data Vital Signs (Past 12 Hours) Vital Signs Temp Pulse Pulse Resp BP Pulse Ox O2 Del Method 09/02/23 11:24 68 16 94 Nasal Cannula 09/02/23 11:16 36.6 C 77 16 132/73 95 Room Air 09/02/23 08:08 36.4 C L 65 18 128/78 94 Nasal Cannula 09/02/23 07:40 Nasal Cannula 09/02/23 07:30 63 09/02/23 07:29 90 18 96 Nasal Cannula 09/02/23 04:00 36.5 C 63 18 129/71 95 Nasal Cannula O2 Flow Rate 09/02/23 11:24 3.5 09/02/23 11:16 09/02/23 08:08 4 09/02/23 07:40 4 09/02/23 07:30 09/02/23 07:29 4 09/02/23 04:00 4 Laboratory Results 09/02/23 06:13 09/02/23 06:13 PG Care Time/CCT Total # of Minutes Spent Total Time Spent with Patient: Total time spent is greater than 50% in coordination of care (as documented) at patient's floor/unit and/or counseling patient: Coding Level of Care Code 66527 SUB INP/OBS CARE 2/35MIN Diagnoses Acute exacerbation of chronic obstructive pulmonary disease (COPD) J44.1 Paroxysmal atrial tachycardia I47.1 Sleep apnea, obstructive G47.33
--- OUTSIDE RECORDS SUMMARY | 2023-09-02 18:18 | External Medical Summary | Summary of Care ---
Author Name Unknown Organization [facility] Address [address] [place] [address] Phone [phone] Care Team Providers Care News Production Assistant Name Role Phone Vicente Sherwood MD Primary Care Provide r Reason for Visit * Reason Comments Esophageal Manometry Encounter Details Date Type Department Care Team (Late st Contact Info) Description 08/29/2023 11:15 AM EDT Nurse Only Gastroenterology, [place] [address] [place], [place] [id number] [place], Nurse Gastroenterology [address] [place], [place] [phone] Esophageal Manometry Allergies Active Allergy Reactions Criticality Noted Date Comments Salicylates Nausea/vomiting 06/02/2010 Prednisone 12/21/2012 Started shaking all over increased, her blood pressure, had to go to the ER documented as of this encounter (statuses as of 08/31/2023) Medications Medication Sig Dispensed Refills Start Date End Date Status SPIRIVA HANDIHALER 18 MCG IN CAPSIndications:COPD , moderate (HCC) Inhale contents of 1 capsule Daily. For inhaler only, do not swallow. 30 Cap 11 02/19/2013 Active OMEPRAZOLE 20 MG PO TBEC Take 1 Tablet by mouth daily as needed (heartburn). 0 Active PROAIR HFA 108 (90 BASE) MCG/ACT inhaler USE 2 PUFFS BY MOUTH FOUR TIMES A DAY NEEDED 8.5 g 5 02/17/2015 Active Fexofenadine HCl 180 MG Oral Tablet ([place] Allergy) as needed. 0 07/24/2020 Active Azithromycin 250 MG Oral Tablet (Zithromax) Take 1 Tablet by mouth. Three days a week 0 09/22/2022 Active Azelastine HCl 0.15 % Nasal Solution 1 [place] 2 times a day as needed. 0 11/12/2022 Active Budesonide 0.5 MG/2ML Inhalation Suspension (Pulmicort) 0.5 mg as needed. 0 10/15/2022 Active Escitalopram Oxalate 10 MG Oral Tablet (Lexapro) Take 1.5 Tablets by mouth in the morning. 0 06/08/2022 Active Vitamin D (Ergocalciferol) 1.25 MG (47702 UT) Oral Capsule (Drisdol) Take 1 Capsule by mouth once a week. 0 06/19/2023 Active Trelegy Ellipta 100-62.5-25 MCG/ACT Aerosol Powder Breath Activated Inhale 1 Puff by mouth in the morning. 0 02/15/2023 Active Ipratropium-Albutero l 0.5-2.5 (3) MG/3ML Inhalation Solution (Duoneb) 0 09/14/2022 Active Roflumilast 500 MCG Oral Tablet (Daliresp) Take 1 Tablet by mouth in the morning. 0 Active Valsartan 80 MG Oral Tablet (Diovan) Take 1 Tablet by mouth in the morning. 0 03/04/2023 02/27/2024 Active documented as of this encounter (statuses as of 08/31/2023) Active Problems Problem Noted Date Diagnosed Date ADVANCE DIRECTIVE INFORMATION 02/22/2006 Overview: Booklet given to pt today. Dysplasia of cervix 01/13/2005 Overview: hyster 1991 for dysplasia ICD-10 update of inactive term OTHER SPECIFIED GASTRITIS; WITHOUT MENTION OF HE MORRHAGE 01/13/2005 documented as of this encounter (statuses as of 08/31/2023) Resolved Problems Problem Noted Date Diagnosed Date Resolved Date Tobacco use disorder 01/13/2005 013 documented as of this encounter (statuses as of 08/31/2023) Immunizations Name Administration Dates Next Due Hepatitis B, 20+ yrs 08/29/2012,03/31/2012,03/01 Pneumococcal Polysaccharide PPV23 (Pneumovax) 02/09/2013(Deferred: Patient Refused) Seasonal Influenza, Split, I IV3, With Preserve, Inj 02/09/2013(Deferred: Patient Refused) TDAP (age 11 and older)(Adacel) 09/27/2008 documented as of this encounter Social History Tobacco Use Types Packs/Day Years Used Date Smoking Tobacco: Former Cigarettes 0.3 25 1 - 02/03/2013 Smokeless Tobacco: Never Alcohol Use Standard Drinks/Week Comments No 0 (1 standard drink = 0.6 oz pur e alcohol) occ Sex and Gender Information Value Date Recorded Sex Assigned at Not on file Gender Identity Not on file Sexual Orientation Not on file Job Start Date Occupation Industry Not on file Not on file Not on file documented as of this encounter Nursing Notes * Juju Lvey RN - 08/29/2023 12:12 PM EDT Patient referred by TONI Crabtree for manometry because of GERD . Patient followed pre-procedure instructions of emot Procedure, risks and benefits were fully explained and time was given for questions. Informed consent was obtained. Procedure was performed by Juju Levy RN Patient tolerated the procedure with little difficulty Instructions for post-procedure mild sore throat were given: ice chips, tylenol. documented in this encounter Plan of Treatment Health Maintenance Due Date Last Done Comments Depression Screening 1966 Hepatitis C Screening 1972 Cologuard 09/25/1999 Colonoscopy 09/25/1999 Colorectal Cancer Screening 09/25/1999 Fecal Occult Blood Test 09/25/1999 Sigmoidoscopy 09/25/1999 Zoster Vaccines (1 of 2) 2004 Mammogram 04/07/2012 04/07/2011, 03/18, 02/17/2005 Diabetes Screening 03/21/2016 03/21/2013, 1 05/22/2012, 01/30/2013, Additional history exists Lipid Panel 02/19/2018 02/19/2013, 12/18/2004 DXA Scan 05/18/2033 05/18/2023, 05/18/2023 DTaP,Tdap,and Td Vaccines (3 - Td or Tdap) 05/24/2033 05/24/2023, 09/27/2008 Hepatitis B Completed 08/29/2012, 03/18, 03/01/2012 Influenza Vaccine (FLU shot) Completed , 12/28/2021, 02/10/2018 Pneumococcal Vaccine: 65+ Years Completed 12/30/2022, 04/22/2021, 02/10/2018, Additional history exists COVID-19 Vaccine Completed 05/31/2023 GARDASIL-HPV IMMUNIZATION SERIES Aged Out No longer eligible based on patient's age to complete this topic MENINGOCOCCAL (MENACTRA/MENVEO) Aged Out No longer eligible based on patient's age to complete this topic documented as of this encounter Medical Devices Not on filedocumented as of this encounter Care Teams News Production Assistant Relationship Specialty Start Date End Date Vicente Sherwood MD [address] [address] PCP - General Family Medicine 04/08/23 documented as of this encounter
--- OUTSIDE RECORDS SUMMARY | 2023-09-02 18:18 | External Medical Summary | Summary of Care ---
Author Name Unknown Organization [facility] Address [address] [facility] [address] Phone [phone] Care Team Providers Care Aviation Technician Name Role Phone Vicente Sherwood MD Primary Care Provide r Reason for Visit * Reason Onset Date Comments Appointment 08/29/2023 Encounter Details Date Type Department Care Team (Late st Contact Info) Description 08/29/2023 Telephone Gastroenterology, [facility] [address] [place] [id number] Kati Andrews CRNP [address] [place] [address] Appointment Allergies Active Allergy Reactions Criticality Noted Date Comments Salicylates Nausea/vomiting 06/02/2010 Prednisone 12/21/2012 Started shaking all over increased, her blood pressure, had to go to the ER documented as of this encounter (statuses as of 08/29/2023) Medications Medication Sig Dispensed Refills Start Date [...] Azelastine HCl 0.15 % Nasal Solution 1 [place] 2 times a day as needed. 0 11/12/2022 Active Budesonide 0.5 MG/2ML Inhalation Suspension (Pulmicort) 0.5 mg as needed. 0 10/15/2022 Active Escitalopram Oxalate 10 MG Oral Tablet (Lexapro) Take 1.5 Tablets by mouth in the morning. 0 06/08/2022 Active Vitamin D (Ergocalciferol) 1.25 MG (90160 UT) Oral Capsule (Drisdol) Take 1 Capsule [...] as of this encounter (statuses as of 08/29/2023) Active Problems Problem Noted Date Diagnosed Date ADVANCE DIRECTIVE INFORMATION 02/22/2006 Overview: Booklet given to pt today. Dysplasia of cervix 01/13/2005 Overview: hyster 1992 for dysplasia ICD-10 update of inactive term OTHER SPECIFIED GASTRITIS; WITHOUT MENTION OF HE MORRHAGE 01/13/2005 documented as of this encounter (statuses as of 08/29/2023) Resolved Problems Problem Noted Date Diagnosed Date Resolved Date Tobacco use disorder 01/13/2005/19/2 013 documented as of this encounter (statuses as of 08/29/2023) Immunizations Name Administration Dates Next Due Hepatitis [...] as of this encounter Miscellaneous Notes * Telephone Encounter - Magali Yuan OSA - 08/29/2023 11:28 AM EDT EGD/Colonoscopy reports from [facility] that was done on 07/19/23 scanned in on 07/30/23 documented in this encounter Plan of Treatment Upcoming Encounters Date Type Department Care Team (Late st Contact Info) Description 08/29/2023 12:15 PM EDT Nurse Only Gastroenterology, [place] [address] [place] [address] [place] Nurse Gastroenterology [address] [facility] [place] [address] Arrived Health Maintenance Due Date Last Done Comments [...] filedocumented as of this encounter Care Teams Aviation Technician Relationship Specialty Start Date End Date Vicente Sherwood MD [address] [address] PCP - General Family Medicine 04/08/23 documented as of this encounter
--- OUTSIDE RECORDS SUMMARY | 2023-09-02 18:18 | External Medical Summary | Summary of Care ---
Author Name Unknown Organization [facility] Address [address] [place] [address] Phone [phone] Care Team Providers Care Gluing Machine Feeder Name Role Phone Vicente Sherwood MD Primary Care Provide r Reason for Visit * Reason Comments Esophageal Manometry Encounter Details Date Type Department Care Team (Late st Contact Info) Description 08/29/2023 11:15 AM EDT Nurse Only Gastroenterology, [place] [address] [place], [place] [phone] [place], Nurse Gastroenterology [address] [place], [place] [phone] Esophageal Manometry Allergies Active Allergy Reactions Criticality [...] Azelastine HCl 0.15 % Nasal Solution 1 [place] 2 times a day as needed. 0 11/12/2022 Active Budesonide 0.5 MG/2ML Inhalation Suspension (Pulmicort) 0.5 mg as needed. 0 10/15/2022 Active Escitalopram Oxalate 10 MG Oral Tablet (Lexapro) Take 1.5 Tablets by mouth in the morning. 0 06/08/2022 Active Vitamin D (Ergocalciferol) 1.25 MG (32194 UT) Oral Capsule (Drisdol) Take 1 Capsule [...] of this encounter Nursing Notes * Juju Levy RN - 08/29/2023 12:12 PM EDT Patient [...] filedocumented as of this encounter Care Teams Gluing Machine Feeder Relationship Specialty Start Date End Date Vicente Sherwood MD [address] [address] PCP - General Family Medicine 04/08/23 documented as of this encounter
--- OUTSIDE RECORDS SUMMARY | 2023-09-02 18:18 | External Medical Summary | Summary of Care ---
Author Name Unknown Organization [facility] Address [address] [place] [address] Phone [phone] Care Team Providers Care Field Hand Name Role Phone Vicente Sherwood MD Primary Care Provide r Reason for Visit * Reason Comments Ph Probe Encounter Details Date Type Department Care Team (Late st Contact Info) Description 08/29/2023 12:15 PM EDT Nurse Only Gastroenterology, [place] [address] [place], [place] [phone] [place], Nurse Gastroenterology [address] [place], [place] [phone] Ph Probe Allergies Active Allergy Reactions Criticality Noted Date [...] Azelastine HCl 0.15 % Nasal Solution 1 [place] 2 times a day as needed. 0 11/12/2022 Active Budesonide 0.5 MG/2ML Inhalation Suspension (Pulmicort) 0.5 mg as needed. 0 10/15/2022 Active Escitalopram Oxalate 10 MG Oral Tablet (Lexapro) Take 1.5 Tablets by mouth in the morning. 0 06/08/2022 Active Vitamin D (Ergocalciferol) 1.25 MG (97103 UT) Oral Capsule (Drisdol) Take 1 Capsule [...] Notes * Juju Levy RN - 08/29/2023 12:14 PM EDT Seen by nurse for insertion of 24 hour PH Probe. Probe inserted without difficulty. Patient experenced no bleeding. Probe secured at level 42 cm. Diary explained. Telephone number is supplied to patient if questions or problems. Instructed to return within 24 hours. documented in this encounter Plan of Treatment [...] filedocumented as of this encounter Care Teams Field Hand Relationship Specialty Start Date End Date Vicente Sherwood MD [address] [address] PCP - General Family Medicine 04/08/23 documented as of this encounter
--- OUTSIDE RECORDS SUMMARY | 2023-09-02 18:18 | External Medical Summary | Summary of Care ---
Author Name Unknown Organization [facility] Address [address] [place] [address] Phone [phone] Care Team Providers Care Hydrometeorologist Name Role Phone Vicente Sherwood MD Primary Care Provide r Reason for Visit * Reason Comments Esophageal Manometry Encounter Details Date Type Department Care Team (Late st Contact Info) Description 08/29/2023 11:15 AM EDT Nurse Only Gastroenterology, [place] [address] [place], [place] [phone] [place], Nurse Gastroenterology [address] [place], [place] [phone] Esophageal Manometry Allergies Active Allergy Reactions Criticality [...] Azelastine HCl 0.15 % Nasal Solution 1 [place] 2 times a day as needed. 0 11/12/2022 Active Budesonide 0.5 MG/2ML Inhalation Suspension (Pulmicort) 0.5 mg as needed. 0 10/15/2022 Active Escitalopram Oxalate 10 MG Oral Tablet (Lexapro) Take 1.5 Tablets by mouth in the morning. 0 06/08/2022 Active Vitamin D (Ergocalciferol) 1.25 MG (90335 UT) Oral Capsule (Drisdol) Take 1 Capsule [...] on file documented as of this encounter Progress Notes * Faheem Hunter DO - 08/31/2023 3:16 PM EDT 24 hour ph impedance Procedure done OFF acid suppression Increased acid exposure of both upper and lower channels Increased number of acid events (111, with normal <40) The reflux was gas (116 events), liquid (109 events), and mixed 9 events The majority of events were in the upright position Patient did NOT report symptoms during the study. 24 hour pH impedance with increased acid exposure of both upper and lower channels in a study done OFF acid suppression in which the patient did NOT report symptoms. Full report to follow. Recommend follow up with referring provider. documented in this encounter Nursing Notes * Juju Levy [...] as of this encounter Visit Diagnoses Diagnosis Gastroesophageal reflux disease with esophagitis, unspecified whether hemorrhage [K21.00]- Primary documented in this encounter Care Teams Hydrometeorologist Relationship Specialty Start Date End Date Vicente Sherwood MD [address] [address] PCP - General Family Medicine 04/08/23 documented as of this encounter
--- OUTSIDE RECORDS SUMMARY | 2023-09-02 18:18 | External Medical Summary | Summary of Care ---
Author Name Unknown Organization [facility] Address [address] [place] [address] Phone [phone] Care Team Providers Care Music Teacher Name Role Phone Vicente Sherwood MD Primary Care Provide r Reason for Visit * Reason Comments Ph Probe Encounter Details Date Type Department Care Team (Late st Contact Info) Description 08/29/2023 12:15 PM EDT Nurse Only Gastroenterology, [place] [address] [place], [place] [phone] [place], Nurse Gastroenterology [address] [place], [place] [phone] Ph Probe Allergies Active Allergy Reactions Criticality [...] Azelastine HCl 0.15 % Nasal Solution 1 [place] 2 times a day as needed. 0 11/12/2022 Active Budesonide 0.5 MG/2ML Inhalation Suspension (Pulmicort) 0.5 mg as needed. 0 10/15/2022 Active Escitalopram Oxalate 10 MG Oral Tablet (Lexapro) Take 1.5 Tablets by mouth in the morning. 0 06/08/2022 Active Vitamin D (Ergocalciferol) 1.25 MG (14106 UT) Oral Capsule (Drisdol) Take 1 Capsule [...] as of this encounter Nursing Notes * Esther Noonan LPN - 08/30/2023 12:03 PM EDT PH probe removed from right nares at 1200 without difficulty. Recorder and diary returned. * Juju Levy RN - 08/29/2023 12:14 [...] filedocumented as of this encounter Care Teams Music Teacher Relationship Specialty Start Date End Date Vicente Sherwood MD [address] [address] PCP - General Family Medicine 04/08/23 documented as of this encounter
--- OUTSIDE RECORDS SUMMARY | 2023-09-02 18:18 | External Medical Summary | Summary of Care ---
Author Name Unknown Organization [facility] Address [address] [place] [address] Phone [phone] Care Team Providers Care Tubular Splitting Machine Tender Name Role Phone Vicente Sherwood MD Primary Care Provide r Reason for Visit * Reason Comments Esophageal Manometry Encounter Details Date Type Department Care Team (Late st Contact Info) Description 08/29/2023 11:15 AM EDT Nurse Only Gastroenterology, [place] [address] [place], [place] [phone] [place], Nurse Gastroenterology [address] [place], [place] [phone] Esophageal Manometry Allergies Active Allergy Reactions Criticality [...] Azelastine HCl 0.15 % Nasal Solution 1 [place] 2 times a day as needed. 0 11/12/2022 Active Budesonide 0.5 MG/2ML Inhalation Suspension (Pulmicort) 0.5 mg as needed. 0 10/15/2022 Active Escitalopram Oxalate 10 MG Oral Tablet (Lexapro) Take 1.5 Tablets by mouth in the morning. 0 06/08/2022 Active Vitamin D (Ergocalciferol) 1.25 MG (65785 UT) Oral Capsule (Drisdol) Take 1 Capsule [...] Notes * Faheem Hunter DO - 08/31/2023 3:22 PM EDT Images from the original note were not included. Patient: Masha Mcneil [id number] Gender: Female Physician: Dr. Faheem Hunter / Age: 06 1955 Rhinestone Setter: Juju Levy RN Height: 5 ft 3 in Referring Physician: TONI Crabtree Procedure: esophageal manometry / Z Examination Date: 08/29/2023 Swallow Composite (mean of 11 swallows) Resting Pressure Profile & Anatomy Basal Pressures* LES, respiratory mean(mmHg) 11.6 (13-43) UES mean(mmHg) 196.1 (34-104) Anatomy* LES proximal(cm) 46.7 LES intraabdominal(cm) 0.0 Esophageal length(cm) 24.8 Hiatal hernia Yes, 1.2 Motility* LES percent relaxation(%) 79 (>40.0%) Distal contr. integral(mmHg-cm-s) 829.0 (500-5000) Incomplete bolus clearance(%) 9 Residual Pressures* LES (mean)(mmHg) -6.4 LES (median)(mmHg) -5.9 (<15.0) LES (highest)(mmHg) -2.8 UES (mean)(mmHg) -5.4 (<12.0) *Notes. Motility values are mean among swallows; Normal values in (xxx.x): Simultaneous contractions: Velocity > 8.0 cm/s; eSlv: eSleeve; 3SN, IRP, DCI, IBP - See manual definitions Lower Esophageal Sphincter Region Normal Esophageal Motility Normal [place]marks Number of swallows evaluated 11 Proximal LES (from nares)(cm) 46.7 [place] Classification LES length(cm) 1.6 2.7-4.8 % failed 73 Esophageal length (LES-UES centers)(cm) 24.8 % panesophageal pressurization 0 Intraabdominal LES length(cm) 0.0 % premature contraction 0 Hiatal hernia? Yes, 1.2 % rapid contraction 0 LES Pressures Additional High Resolution Parameters Pressure brigitte. method eSleeve,IRP Distal latency 6.5 Basal (respiratory min.)(mmHg) -6.2 4.8-32.0 Distal contractile integral(mean)(mmHg-cm-s) 829.0 500-5000 Basal (respiratory mean)(mmHg) 11.6 13-43 Contractile front velocity(cm/s) 3.3 <9.0 Residual (mean)(mmHg) -6.4 Impedance analysis Residual (median)(mmHg) -5.9 <15.0 Incomplete bolus clearance(%) 9 Residual (highest)(mmHg) -2.8 Percent relaxation(%) 79 >40.0% Upper Esophageal Sphincter Normal Pharyngeal / UES Motility Normal Mean basal pressure(mmHg) 196.1 34-104 No. swallows evaluated 11 Mean residual pressure(mmHg) -5.4 <12.0 Evaluated @ 3.0 & N/A above UES Mean peak pressure(mmHg) 3.8 [place] Classification Findings* EGJ: Normal Relaxation Median IRP (-5.9 mmHg) is less than 15 mmHg Esophageal body: Ineffective swallows, Not all swallows have failed peristalsis % ineffective swallows (82%) is greater than 50% Finding: Ineffective Esophageal Motility (IEM) * Findings are based on published [place] Classification scheme and are only intended to serve as aguide for patient diagnosis Procedure After confirmation of potential allergies, a topical analgesic was used to numb the nares followed by trans-nasal insertion of a High Resolution Manometry Catheter. Pressure bands of both UES and LESwere observed on the color contour. Patient instructed to take deep breath to verify placement of catheter; diaphragmatic pinch noted on inspiration. Patient was assisted to supine position and catheter was stabilized by taping at the nares. Patient was encouraged to relax while acclimating to catheter for approximately 5 minutes. A 30 second baseline pressure was obtained to identify the UES andLES followed by a series of wet swallows using 5 ccs room temperature normal saline to assess esophageal motility and bolus transit. At the conclusion of the procedure; the catheter was removed. Indications GERD Interpretation / Findings Upper esophageal sphincter with elevated basal pressures. Esophageal body with peristalsis in response to wet swallows 1/10, weak 1/10, failed 8/10. This is consistent with ineffective esophageal motility. Lower esophageal sphincter relaxes in response to wet swallows. During rapid swallow phase DCI >450 which suggests that peristalsis can be achieved with recurrent swallows. * Faheem Hunter DO - 08/31/2023 3:16 [...] Primary documented in this encounter Care Teams Tubular Splitting Machine Tender Relationship Specialty Start Date End Date Vicente Sherwood MD [address] [place] [address] PCP - General Family Medicine 04/08/23 documented as of this encounter
--- OUTSIDE RECORDS SUMMARY | 2023-09-02 18:18 | External Medical Summary | Summary of Care ---
Author Name Unknown Organization [facility] Address [address] [place] [address] Phone [phone] Care Team Providers Care Station Usher Name Role Phone Vicente Sherwood MD Primary Care Provide r Reason for Visit * Reason Comments Ph Probe Encounter Details Date Type Department Care Team (Late st Contact Info) Description 08/29/2023 12:15 PM EDT Nurse Only Gastroenterology, [place] [address] [place], [place] [phone] [place], Nurse Gastroenterology [address] [place], [place] [phone] Ph Probe Allergies Active Allergy Reactions Criticality Noted Date Comments Salicylates Nausea/vomiting 06/02/2010 Prednisone 12/21/2012 Started shaking all over increased, her blood pressure, had to go to the ER documented as of this encounter (statuses as of 08/30/2023) Medications Medication Sig Dispensed Refills Start Date [...] Azelastine HCl 0.15 % Nasal Solution 1 [place] 2 times a day as needed. 0 11/12/2022 Active Budesonide 0.5 MG/2ML Inhalation Suspension (Pulmicort) 0.5 mg as needed. 0 10/15/2022 Active Escitalopram Oxalate 10 MG Oral Tablet (Lexapro) Take 1.5 Tablets by mouth in the morning. 0 06/08/2022 Active Vitamin D (Ergocalciferol) 1.25 MG (47354 UT) Oral Capsule (Drisdol) Take 1 Capsule [...] as of this encounter (statuses as of 08/30/2023) Active Problems Problem Noted Date Diagnosed Date ADVANCE DIRECTIVE INFORMATION 02/22/2006 Overview: Booklet given to pt today. Dysplasia of cervix 01/13/2005 Overview: hyster 1991 for dysplasia ICD-10 update of inactive term OTHER SPECIFIED GASTRITIS; WITHOUT MENTION OF HE MORRHAGE 01/13/2005 documented as of this encounter (statuses as of 08/30/2023) Resolved Problems Problem Noted Date Diagnosed Date Resolved Date Tobacco use disorder 01/13/2005 013 documented as of this encounter (statuses as of 08/30/2023) Immunizations Name Administration Dates Next Due Hepatitis [...] filedocumented as of this encounter Care Teams Station Usher Relationship Specialty Start Date End Date Vicente Sherwood MD [address] [address] PCP - General Family Medicine 04/08/23 documented as of this encounter
--- OUTSIDE RECORDS SUMMARY | 2023-09-03 07:20 | External Medical Summary | Summary of Care ---
Author Name Unknown Organization [facility] [address] [facility] [address] Phone [phone] Care Team Providers Care Bingo Attendant Name Role Phone Vicente Sherwood MD Primary Care Provide r Reason for Visit * Reason Onset Date Comments Test Results 09/01/2023 Encounter Details Date Type Department Care Team (Late st Contact Info) Description 09/01/2023 Telephone Gastroenterology, [facility] [address] [place] [address] Kati Andrews CRNP [address] [place] [address] Test Results Allergies Active Allergy Reactions Criticality Noted Date Comments Salicylates Nausea/vomiting 06/02/2010 Prednisone 12/21/2012 Started shaking all over increased, her blood pressure, had to go to the ER documented as of this encounter (statuses as of 09/01/2023) Medications Medication Sig Dispensed Refills Start Date [...] Azelastine HCl 0.15 % Nasal Solution 1 [place] 2 times a day as needed. 0 11/12/2022 Active Budesonide 0.5 MG/2ML Inhalation Suspension (Pulmicort) 0.5 mg as needed. 0 10/15/2022 Active Escitalopram Oxalate 10 MG Oral Tablet (Lexapro) Take 1.5 Tablets by mouth in the morning. 0 06/08/2022 Active Vitamin D (Ergocalciferol) 1.25 MG (39313 UT) Oral Capsule (Drisdol) Take 1 Capsule [...] as of this encounter (statuses as of 09/01/2023) Active Problems Problem Noted Date Diagnosed Date ADVANCE DIRECTIVE INFORMATION 02/22/2006 Overview: Booklet given to pt today. Dysplasia of cervix 01/13/2005 Overview: hyster 1992 for dysplasia ICD-10 update of inactive term OTHER SPECIFIED GASTRITIS; WITHOUT MENTION OF HE MORRHAGE 01/13/2005 documented as of this encounter (statuses as of 09/01/2023) Resolved Problems Problem Noted Date Diagnosed Date Resolved Date Tobacco use disorder 01/13/200504/05/2 013 documented as of this encounter (statuses as of 09/01/2023) Immunizations Name Administration Dates Next Due Hepatitis [...] encounter Miscellaneous Notes * Telephone Encounter - Kati Andrews CRNP - 09/01/2023 1:22 PM EDT Pls fax Manometry results (available as Progress Notes by Dr. Faheem Hunter) [facility] [place]: Kip Musa RN (Lung Quality Improvement Consultant) [address] [place] [address] TONI Mora documented in this encounter Plan of Treatment [...] filedocumented as of this encounter Care Teams Bingo Attendant Relationship Specialty Start Date End Date Vicente Sherwood MD [address] [place] [address] PCP - General Family Medicine 04/08/23 documented as of this encounter
--- OUTSIDE RECORDS SUMMARY | 2023-09-03 07:20 | External Medical Summary | Summary of Care ---
Author Name Unknown Organization [facility] Address [address] [facility] [address] Phone [phone] Care Team Providers Care Cardiology Consultant Name Role Phone Vicente Sherwood MD Primary Care Provide r Reason for Visit * Reason Onset Date Comments Test Results 09/01/2023 Encounter Details Date Type Department Care Team (Late st Contact Info) Description 09/01/2023 Telephone Gastroenterology, [facility] [address] [place] [address] Kati Andrews CRNP [address] [place] [address] Test Results Allergies Active Allergy Reactions Criticality [...] Azelastine HCl 0.15 % Nasal Solution 1 [place] 2 times a day as needed. 0 11/12/2022 Active Budesonide 0.5 MG/2ML Inhalation Suspension (Pulmicort) 0.5 mg as needed. 0 10/15/2022 Active Escitalopram Oxalate 10 MG Oral Tablet (Lexapro) Take 1.5 Tablets by mouth in the morning. 0 06/08/2022 Active Vitamin D (Ergocalciferol) 1.25 MG (32596 UT) Oral Capsule (Drisdol) Take 1 Capsule [...] encounter Miscellaneous Notes * Telephone Encounter - Astrid Carpenter RN - 09/01/2023 2:00 PM EDT Faxed. * Telephone Encounter - Kati Andrews CRNP - 09/01/2023 1:22 PM EDT Pls fax Manometry results (available as Progress Notes by Dr. Faheem Hunter) to [facility]: Kip Musa RN (Lung Water System Operator) [address] [place] [address] TONI Mora documented in this encounter Plan [...] filedocumented as of this encounter Care Teams Cardiology Consultant Relationship Specialty Start Date End Date Vicente Sherwood MD [address] [place] [address] PCP - General Family Medicine 04/08/23 documented as of this encounter
[2023-09-03 07:45] LABS: BUN Creatinine Ratio 35.4 (10-20); Calcium 8.6 mg/dl (8.6-10.3); Creatinine Clr Calc Pharmacy 52.1 ml/min; Est GFR (African American) 70.4 ml/min; Est GFR (Non-African American) 60.8 ml/min; Magnesium 2.2 mg/dl (1.7-2.4); Potassium 4.3 mmol/L (3.5-5.1)
[2023-09-03 07:54] LABS: Basophils # (auto) 0.01 K/uL (0.00-0.20); Basophils % (auto) 0.1 %; Hematocrit (blood only) 34.5 % (37.0-47.0); Hemoglobin 11.5 g/dl (12.0-16.0); Immature Granulocytes # (auto) 0.06 K/uL (0.01-0.20); Immature Granulocytes % (auto) 0.7 %; Lymphocytes # (auto) 0.96 K/uL (1.20-3.40); Lymphocytes % (auto) 10.5 %; Mean Corpuscular Hemoglobin 28.6 pg (25.0-34.0); Mean Corpuscular Hgb Conc 33.3 g/dL (32.0-36.0); Mean Corpuscular Volume 85.8 fL (80.0-100.0); Mean Platelet Volume 9.6 fL (9.4-12.4); Monocytes # (auto) 0.24 K/uL (0.11-0.59); Monocytes % (auto) 2.6 %; Neutrophils % (auto) 86.1 %; Platelet Count 365 K/uL (130-400); RDW Coefficient of Variation 12.6 % (11.5-14.5); RDW Standard Deviation 39.3 fL (36.4-46.3); Red Blood Count 4.02 M/uL (4.20-5.40); White Blood Count 9.17 K/ul (4.8-10.8)
[2023-09-03 07:59] LABS: INR 0.9 (0.9-1.1); Prothrombin Time 10.1 Seconds (9.0-12.0)
[2023-09-03] MEDS: DOXYCYCLINE HYCLATE 100 MG CAP PO SCH (08:05)
[2023-09-03] MEDS: predniSONE 20 MG TAB PO SCH (08:06)
--- NOTE | 2023-09-03 14:36 | Discharge Summary ---
Date of Service September 04, 2023 Admission HPI Per Admitting Provider Masha is a 67 year old female with a PMH significant for tobacco use disorder, paroxysmal atrial tachycardia, COPD, acid reflux, pericardial effusion, ALHAJI, anxiety with depression, and presently undergoing workup for lung transplant at [facility] who presented to the [facility] ED on 09/01/23 with complaints of increased SOB and O2 requirements from baseline and substernal chest discomfort. On arrival to the ED she was noted to be stable on 3-4L NC and hypertensive at 149/90. Labs including CBC, CMP, high sen trop, and full respiratory biofire were unremarkable. Chest xray was read as emphysema without acute findings. ECG showed NSR without acute changes. Prior to admission the patient was given 60 mg IV solu-medrol, 100 mg IV doxycycline, and an hour long albuterol nebulizer treatment. At the time of the exam the patient was sitting in bed in no acute distress. She states that she had been feeling well after her last admission for COPD exacerbation due to rhinovirus infection last month. Approximately 3 days ago she started to developed increased frequency of her chronic cough, increased white sputum production, increased TAPIA with chest tightness, and increased O2 demands (4-5L at rest). She denies recent sick contacts, has not used tobacco recently, and does not have anyone else in her home who smokes or vapes. She has not been using her HS CPAP as she is waiting for new humidifying equipment to be delivered. Denies recent fever, chills, chest discomfort at rest, hemoptysis, abd pain, nausea, vomiting, diarrhea, dysuria, hematuria, melena, LE swelling, and recent trauma. Her chest tightness has significantly improved after the hour long DuoNeb treatment in the ED. She is a full code and her daughter is her POA. She underwent the final testing early this week to determine if she will be eligible for a lung transplant, she is tentatively awaiting the results. Admission Exam Per Admitting Provider Physical Exam: General: In no acute distress, stated age, chronically ill appearing but non- toxic HEENT: Normocephalic, atraumatic, no scleral icterus, pupils around round, symmetrical, and reactive to light, moist mucus membranes, trachea midline, no thyromegaly Chest/Pulm: No respiratory distress, symmetrical chest expansion, scattered ex piratory wheezing throughout Cardiac: RRR, no murmurs noted Abdomen: Negative for ascites and bruising, normoactive bowel sounds, soft, non- tender to palpation throughout Musculoskeletal: Symmetrical and without signs of acute trauma, upper and lower extremities with full ROM, no atrophy, spasticity, or flaccidity Extremities: Radial, dorsalis pedis, and posterior tibial pulses are intact and symmetrical, no edema noted in the BL LE's Skin: Warm, dry, no rashes , lesions, or scars noted Neuro: Alert and oriented to person, place, month, year, and president, no focal defects, no tremors noted Psych: No acute distress, calm and cooperative during the exam Principal Diagnosis Acute excerbation of copd Discharge Exam GENERAL : No acute distress EYES: No icterus, gaze conjugate NOSE: No evidence of epistaxis MOUTH: No lesions or candidiasis NECK: Supple LUNGS: CTA B/L, no wheezes, rales or rhonchi HEART: Regular, rate controlled ABDOMEN: Soft, NT, ND, BS Present EXTREMITIES: No LE edema, pedal pulses intact NEURO: A&OX3 Discharge Data Allergies Allergy/AdvReac Type Severity Reaction Status Date / Time aspirin AdvReac Intermediate GI SYMPTOMS Verified 09/01/23 15:29 Ordered Studies Chest X-Ray 09/01/23 11:16 XR chest 1V portable HISTORY: 67 years-old Female Chest pain, nonspecific COMPARISON: 08/01/2023 TECHNIQUE: AP view the chest FINDINGS: Cardiac silhouette is mildly enlarged. No pneumothorax, pleural effusion or overt pulmonary edema. Emphysema with chronic interstitial coarsening. Degenerative changes of the shoulders and spine. IMPRESSION: Emphysema without acute process. ACT 112: Negative or not required by law. The above report was generated using voice recognition software. It may contain grammatical, syntax or spelling errors. Electronically signed by: Landon Lechuga M.D. 09/01/2023 12:36 PM Hospital Course (1) Acute exacerbation of chronic obstructive pulmonary disease (COPD): Improving - Currently stable on 4L NC at rest and in no respiratory distress, wean as able to keep sat 88-92% - CXR is negative for pneumonia or volume overload - Full respiratory biofire negative - Responded favorably to treatment including Doxycycline 100mg BID. Solumedrol 60mg, Mucinex, Budesonide + Pulmicort nebs BID - Continue Roflumilast, follows with pulm, Dr. Ortega - Incentive spirometry, flutter therapy - Sputum culture with gram stain ordered, her sputum culture yielded growth of Strep pneumoniae, resistant to tetracyclines. Will d/c Doxycycline and treat her with 7 day course of Cefdinir 300mg BID. (2) Paroxysmal atrial tachycardia: Chronic/stable - Currently in NSR, not on any rate reducing medications, antiarrhythmics or anticoagulation (3) Sleep apnea, obstructive: Chronic/stable - HS CPAP ordered Plan Improved with therapy as noted above. Oxygenation improved and she is now on her baseline O2 requirements of 3L with sats in the mid to upper 90s. Will d/c on Prednisone taper and course of Cefdinir. She will need to f/u with her PCP and medical van driver, as well as her specialists at [facility]. Plan of care has been d/w Dr. Camp who is in agreement. Total Time Total Time Spent Total Time Spent (In Minutes): 35 minutes Discharge Plan Discharge Items Patient Disposition: Home - Self-Care Reason For Visit: ACUTE ON CHRONIC SOB, END STAGE COPD Discharge Diagnosis: Acute exacerbation of COPD Activity: Resume your previous activity Lifting: Gradually increase as tolerated Bathing: No limitations Exercise/Sports: Rest today and Gradually increase as tolerated Weightbearing: Full weightbearing Non-emergency contact: Primary Care Provider, Specialist and Jewel Gauger Call non-emergency contact if: you have any medication questions and your symptoms worsen Follow-up/Referrals: Maya Weller, OTR [Primary Care Provider] - Diet: Regular Addtl Attending Provider Instructions: Take all medications as directed. Your antibiotics have been changed to Cefdinir, please complete as prescribed. Start your first dose this evening 09/02 before bed. Taper steroids (Prednisone) as directed. You are due for your next dose tomorrow (09/03 in the AM). Take Prednisone in the morning with food. Follow up with PCP and medical van driver, Dr. Ortega. Call 911 or go to the ER in the event of a medical emergency. Keep oxygen levels between 88-92% Pending Studies at Discharge: No Stand-Alone Forms: [employer], Smoking Cessation Medications and DC Order Prescriptions: New prednisone 20 mg tablet See Rx Instructions .ROUTE .COMPLEX Qty: 18 0RF Rx Instructions: 3 tabs po daily x2 days, 2 tabs po daily x3 days, 1 tab po daily x3 days then 1 tab every other day until gone cefdinir 300 mg capsule 300 mg PO BID Qty: 14 0RF Continued albuterol sulfate 90 mcg/actuation HFA aerosol inhaler 2 puff inhalation Q4H PRN (Reason: shortness of breath or wheezing) Qty: 8.5 3RF Rx Instructions: Generic for ProAir- Patient can not use Ventolin Trelegy Ellipta 100-62.5-25 mcg blister with device 1 inh inhalation DAILY Qty: 28 7RF ipratropium-albuterol 0.5 mg-3 mg(2.5 mg base)/3 mL solution for nebulization 3 ml INH QID PRN (Reason: Shortness Of Breath) Qty: 360 5RF (DME) CPAP Machine Misc See Rx Instructions .MEDSUPPLY Qty: 1 0RF Rx Instructions: Auto-titration CPAP with pressure range between 5 cm H2O and 15 cm H2O with humidification. Lifetime need. (DME) CPAP Supplies Misc See Rx Instructions .MEDSUPPLY Qty: 1 0RF Rx Instructions: Refitting of the mask. G47.33 (DME) Portable Oxygen Misc See Rx Instructions .Route Qty: 1 0RF Rx Instructions: portable oxygen concentrator- 3LPM on exertion via n/c. SILVIA:99 ergocalciferol (vitamin D2) 1,250 mcg (50,000 unit) capsule 1,250 mcg PO WK Rx Instructions: MONDAYS escitalopram oxalate [Lexapro] 10 mg tablet 15 mg PO QAM fexofenadine 180 mg Tablet 180 mg PO DAILY roflumilast 500 mcg tablet 500 mcg PO QAM Held azithromycin 250 mg tablet 250 mg PO 3XWK Hold Instructions: Resume on 09/09/23. Rx Instructions: TUE, WED, & FRI. Discharge Orders: Discharge Order (Routine); Ordered 09/04/23 Ordered By: Salbador Orellana/Other Patient Handouts: COPD Meds Admission Data Admit Date/Time: 09/01/23 15:58 Attending Provider: Vipul Camp Admit Provider: Aureliano New Primary Care Provider: Maya Weller Other Interventions: Discharge Summary Assessment (RN) Last Done: 09/04/23 17:51 Coding Level of Care Code 20671 INP/OBS DISCH >30 MIN Diagnoses Acute exacerbation of chronic obstructive pulmonary disease (COPD) J44.1 Paroxysmal atrial tachycardia I47.1 Sleep apnea, obstructive G47.33 Time Spent (min) 35
[2023-09-03] MEDS: CEFDINIR 300 MG CAP PO SCH (15:58)
[2023-09-03] MEDS: PANTOprazole 40 MG TAB PO SCH (20:54)
[2023-09-04 07:41] LABS: Basophils # (auto) 0.02 K/uL (0.00-0.20); Basophils % (auto) 0.2 %; Eosinophils # (auto) 0.01 K/uL (0.00-0.50); Eosinophils % (auto) 0.1 %; Hematocrit (blood only) 33.7 % (37.0-47.0); Hemoglobin 11.4 g/dl (12.0-16.0); Immature Granulocytes % (auto) 1.1 %; Lymphocytes % (auto) 22.4 %; Mean Corpuscular Hemoglobin 29.2 pg (25.0-34.0); Mean Corpuscular Hgb Conc 33.8 g/dL (32.0-36.0); Mean Corpuscular Volume 86.2 fL (80.0-100.0); Mean Platelet Volume 9.1 fL (9.4-12.4); Monocytes % (auto) 10.1 %; Neutrophils # (auto) 5.91 K/uL (1.40-6.50); Neutrophils % (auto) 66.1 %; Platelet Count 328 K/uL (130-400); RDW Coefficient of Variation 12.9 % (11.5-14.5); RDW Standard Deviation 39.8 fL (36.4-46.3); Red Blood Count 3.91 M/uL (4.20-5.40); White Blood Count 8.94 K/ul (4.8-10.8)
[2023-09-04 08:01] LABS: BUN Creatinine Ratio 34.8 (10-20); Calcium 8.2 mg/dl (8.6-10.3); Creatinine Clr Calc Pharmacy 54.3 ml/min; Est GFR (African American) 74.2 ml/min; Potassium 3.8 mmol/L (3.5-5.1)
--- NOTE | 2023-09-04 08:09 | Hospitalist Progress Note ---
Date of Service September 03, 2023 Assessment & Plan (1) Acute exacerbation of chronic obstructive pulmonary disease (COPD): Plan: Chronic respiratory failure with hypoxia Improving - Currently stable on 4L NC at rest and in no respiratory distress, wean as able to keep sat 88-92% - CXR is negative for pneumonia or volume overload - Full respiratory biofire negative - Responded favorably to treatment including Doxycycline 100mg BID. Solumedrol 60mg, Mucinex, Budesonide + Pulmicort nebs BID - Continue Roflumilast, follows with pulm, Dr. Ortega - Incentive spirometry, flutter therapy - Sputum culture with gram stain ordered, her sputum culture yielded growth of Strep pneumoniae, resistant to tetracyclines. Will d/c Doxycycline and treat her with 7 day course of Cefdinir 300mg BID. Patient though at time of discharge was SOB, and did not feel ready to leave. WIll monitor overnight and discharge on 09/03 if patient is feeling better. (2) Paroxysmal atrial tachycardia: Plan: Chronic/stable - Currently in NSR, not on any rate reducing medications, antiarrhythmics or anticoagulation (3) Sleep apnea, obstructive: Plan: Chronic/stable - HS CPAP ordered Plan Improved with therapy as noted above. Oxygenation improved and she is now on her baseline O2 requirements of 3L with sats in the mid to upper 90s. Will d/c on Prednisone taper and course of Cefdinir. She will need to f/u with her PCP and die operator, as well as her specialists at [facility]. Plan of care has been d/w Dr. Camp who is in agreement. Admission and Anticipated Discharge Date Admission Date: September 01, 2023 Subjective Patient reports feeling SOB when she ambulates. Physical Exam Physical Exam: GENERAL: 67 yo well-developed, well-nourished F who appears older than stated age. No distress. LUNGS: Nonlabored. Poor air exchange and diminished breath sounds throughout. No wheezes or rhonchi appreciated. CARDIOVASCULAR: Regular rate and rhythm. No M/G/R. ABDOMEN: Soft, non-tender and non-distended. Bowel sounds normoactive x 4 quad. EXTREMITIES: No edema. Non-tender. Peripheral pulses +2/4. SKIN: Warm, dry, intact. No rashes or lesions. Results & Data Results & Data Vital Signs (Past 12 Hours) Vital Signs Temp Pulse Resp BP Pulse Ox O2 Del Method O2 Flow Rate 09/04/23 08:02 36.7 C 74 18 143/77 H 94 Room Air 09/04/23 07:25 73 16 98 Nasal Cannula 3 PG Care Time/CCT Total # of Minutes Spent Total Time Spent with Patient: Total time spent is greater than 50% in coordination of care (as documented) at patient's floor/unit and/or counseling patient: Coding Level of Care Code 36179 SUB INP/OBS CARE 2/35MIN Diagnoses Acute exacerbation of chronic obstructive pulmonary disease (COPD) J44.1 Paroxysmal atrial tachycardia I47.1 Sleep apnea, obstructive G47.33
[2023-09-04 08:18] LABS: INR 0.9 (0.9-1.1); Prothrombin Time 10.3 Seconds (9.0-12.0)
--- NOTE | 2023-09-04 08:42 | Hospitalist Progress Note ---
Date of Service September 04, 2023 Assessment & Plan (1) Acute exacerbation of chronic obstructive pulmonary disease (COPD): Plan: Chronic respiratory failure with hypoxia Improving - Currently stable on 4L NC at rest and in no respiratory distress, wean as able to keep sat 88-92% - CXR is negative for pneumonia or volume overload - Full respiratory biofire negative - Responded favorably to treatment including Doxycycline 100mg BID. Solumedrol 60mg, Mucinex, Budesonide + Pulmicort nebs BID - Continue Roflumilast, follows with pulmDr. Ortega - Incentive spirometry, flutter therapy - Sputum culture with gram stain ordered, her sputum culture yielded growth of Strep pneumoniae, resistant to tetracyclines. Will d/c Doxycycline and treat her with 7 day course of Cefdinir 300mg BID. Patient though at time of discharge was SOB, and did not feel ready to leave. WIll monitor overnight and discharge on 09/03 if patient is feeling better. Patient last seen by Isael Frank [facility] [facility] Pulmonary. Routine scheduled appt is 01/09/2024. Will have her scheduled for hospital follow up (2) Paroxysmal atrial tachycardia: Plan: Chronic/stable - Currently in NSR, not on any rate reducing medications, antiarrhythmics or anticoagulation (3) Sleep apnea, obstructive: Plan: Chronic/stable - HS CPAP ordered Plan Improved with therapy as noted above. Oxygenation improved and she is now on her baseline O2 requirements of 3L with sats in the mid to upper 90s. Will d/c on Prednisone taper and course of Cefdinir. She will need to f/u with her PCP and raw silk grader, as well as her specialists at [facility]. Plan of care has been d/w Dr. Camp who is in agreement. Admission and Anticipated Discharge Date Admission Date: September 01, 2023 Subjective Attending: Dr. Camp Patient admitted 09/01/2023 for chronic respiratory failure with hypoxia and shortness of breath. She was scheduled for discharge yesterday but at the time of discharge continues to have shortness of breath. Patient is chronically on supplemental oxygen and was stable on 4 L per nasal cannula. Anticipated discharge today Review of Systems 2 Review of Systems: A total of 10 systems was reviewed and is negative other than as listed in the HPI Physical Exam 2 Physical Exam: GENERAL : No acute distress EYES: No icterus, gaze conjugate NOSE: No evidence of epistaxis MOUTH: No lesions or candidiasis NECK: Supple LUNGS: CTA B/L, no wheezes, rales or rhonchi HEART: Regular, rate controlled ABDOMEN: Soft, NT, ND, BS Present EXTREMITIES: No LE edema, pedal pulses intact NEURO: A&OX3 Results & Data Results & Data Vital Signs (Past 12 Hours) Vital Signs Temp Pulse Resp BP Pulse Ox O2 Del Method O2 Flow Rate 09/04/23 08:02 36.7 C 74 18 143/77 H 94 Room Air 09/04/23 07:25 73 16 98 Nasal Cannula 3 Laboratory Results 09/04/23 07:14 09/04/23 07:14 Diagnostic Findings Chest X-Ray 09/01/23 11:16 XR chest 1V portable HISTORY: 67 years-old Female Chest pain, nonspecific COMPARISON: 08/01/2023 TECHNIQUE: AP view the chest FINDINGS: Cardiac silhouette is mildly enlarged. No pneumothorax, pleural effusion or overt pulmonary edema. Emphysema with chronic interstitial coarsening. Degenerative changes of the shoulders and spine. IMPRESSION: Emphysema without acute process. ACT 112: Negative or not required by law. The above report was generated using voice recognition software. It may contain grammatical, syntax or spelling errors. Electronically signed by: Landon Lechuga M.D. 09/01/2023 12:36 PM PG Care Time/CCT Total # of Minutes Spent Total Time Spent with Patient: Total time spent is greater than 50% in coordination of care (as documented) at patient's floor/unit and/or counseling patient: Coding Diagnoses Acute exacerbation of chronic obstructive pulmonary disease (COPD) J44.1 Paroxysmal atrial tachycardia I47.1 Sleep apnea, obstructive G47.33
== END 2023-09-04 18:10 | disposition home or self-care (01) | DRG 191 ==
LOC: ED 11:08 → SUATTDRO 15:58 → 2N 15:58 → 3W 09-02 21:46

== ENCOUNTER 2023-09-22 11:52 | Inpatient (IN) ==
--- NOTE | 2023-09-22 12:13 | Emergency Department Note ---
Impression & Plan Acute exacerbation of chronic obstructive pulmonary disease, Shortness of breath ED Provider Note NAME: AVIVA MIMS AGE: 67 SEX: F : 1955 ARRIVES VIA: Walk-In INFORMANT: Patient ED PROVIDER(S): Roshan Hendrix DO CHIEF COMPLAINT: Shortness of breath HPI: Patient is a 67-year-old female with a past medical history of acute on chronic respiratory failure chronically on 4 L nasal cannula, pericardial effusion, influenza A who presents to the ER for productive cough and worsening shortness of breath which has been present for the past 4 days. She notes it has significantly gotten worse. She cannot get move around without becoming significantly dyspneic. She denies any belly pain, nausea, vomiting, or diarrhea. She admits to chest tightness which has been present for the past 3 days. Nebs have not been improving. No steroids. No recent antibiotics. No recent trips or travel, coughing up blood history of blood clots or history of clotting disorders ADDITIONAL HISTORY OBTAINED: Per HPI Chronic Medical/Social Conditions Affecting Care: Per HPI PAST MEDICAL HISTORY:See Below PAST SURGICAL HISTORY:See Below FAMILY HISTORY:See Below SOCIAL HISTORY:See Below HOME MEDICATIONS:See Below ALLERGIES:See Below VITALS:See Below PHYSICAL EXAMINATION: GENERAL: Sitting up in bed, alert, ill-appearing, dyspneic with conversation, speaking in one-word answers EYE EXAM: normal conjunctiva. OROPHARYNX: mucous membranes are moist NECK: supple, no nuchal rigidity, no adenopathy, non-tender LUNGS: Wheezing bilaterally with poor air movement. Normal chest wall mechanics HEART: Tachycardic, S1 normal and S2 normal ABDOMEN: abdomen soft, non-tender, normo-active bowel sounds, no masses, no rebound or guarding. UPPER EXTREMITIES: upper extremities are grossly normal. LOWER EXTREMITIES: No pitting edema. Calves are equal bilaterally NEURO EXAM: Normal sensorium, cranial nerves II-XII grossly intact, normal speech, no gross weakness of arms, no gross weakness of legs. MEDICAL DECISION MAKING: Patient is a 67-year-old female who presents ER for above-stated complaint. IV was established blood work was obtained. Upon presentation she was found to be tachypneic. IV was established blood was obtained. Labs show no significant leukocytosis. Mild anemia 10.8. BMP along with LFTs bilirubin was unremarkable. Troponin was negative. Lipase normal. Viral panel is negative. Chest x-ray was clean. Patient was updated bedside. She was given an hour-long neb treatment as well as steroids and additional nebs. She did improve. She was still slightly tachypneic. Discussed case with the hospitalist for further evaluation management treatment. She was able to speak in several word sentences following this. Consults/Care Managements Discussions: Per MDM Triage Nursing notes reviewed. Limited review of prior medical records performed Vital Signs: reviewed and remarkable for no significant abnormalities Differential diagnosis: Differential diagnoses includes but is not limited to pneumonia, bronchitis, COPD/Asthma exacerbation, pneumothorax, pulmonary embolism, congestive heart failure, acute coronary syndrome ER treatment provided: See below Diagnostics interpreted by me include EKG and cardiac monitoring as listed below: -Cardiac Monitoring: An order was placed for continuous cardiac monitoring. The monitor shows a rate of 90 with sinus rhythm. -ECG: Sinus rhythm rate 91 Normal axis No PVCs QTc 445 -Laboratory studies:Interpreted by me as stated above in MDM and shown below. Imaging studies: Xrays: As interpreted by me: Portable AP upright 1 view of the chest shows no focal CTs show: none Procedures:none Critical Care: I have personally spent 32 minutes of critical care time in the direct management of this patient. This includes bedside care, interpretation of diagnostic studies, and testing, discussion with consultants, patient, and family members, and other required patient management activities. This 32 minutes is in excess of all separately billable procedures. Past Med/Surg History Problem List (Updated 09/22/23 @ 16:07 by Roshan Hendrix DO) Shortness of breath (Acute) Acute exacerbation of chronic obstructive pulmonary disease (Acute) Hypoxia (Acute) Failure of outpatient treatment (Acute) Acute exacerbation of chronic obstructive pulmonary disease (COPD) (Acute) Encounter for pre-operative examination Rhinovirus infection (Acute) Acute and chronic respiratory failure (Acute) Parainfluenza type 1 infection (Acute) Acute pericardial effusion (Acute) Acute exacerbation of chronic obstructive pulmonary disease (Acute) Lower back pain Goals of care, counseling/discussion Palliative care encounter Pneumonia (Acute) Acute respiratory failure with hypoxia and hypercapnia Failure of outpatient treatment (Acute) Paroxysmal atrial tachycardia Leukocytosis Acute exacerbation of chronic obstructive pulmonary disease (Acute) SOB (shortness of breath) (Acute) Acid reflux Influenza A (Acute) Acute respiratory failure with hypercapnia COVID-19 (Acute) Chest pain (Acute) Ex-smoker COPD (chronic obstructive pulmonary disease) (Acute) Chronic respiratory failure with hypoxia (Acute) COVID (Acute) COVID Dyspnea Cough Fever Acute on chronic respiratory failure with hypoxia (Acute) Dysfunction of both eustachian tubes Acute respiratory failure with hypoxia Paroxysmal atrial tachycardia Acute dyspnea (Acute) History of tobacco use Lung transplant candidate Sacroiliitis Multiple pulmonary nodules no biopsies, monitored COPD exacerbation (Acute) [facility] 03/2023 Chronic respiratory failure SOB (shortness of breath) (Acute) "all the time" Anxiety with depression Chronic obstructive pulmonary disease with hypoxia 3L O2 ca, [facility] Pulm Dr. Dhillon Sleep apnea, obstructive (Chronic) CPAP Medical History Family history of paroxysmal atrial tachycardia History of COVID-19 (~2021) x3 sob, cough, fatigue; resolved History of recent pneumonia (~09/2022) Surgical History Hx of cardiac catheterization (~2022) Had in [place] as part of work up for [place] to get on Lung Transplant list, no stents Hx of colonoscopy with polypectomy Hx of bilateral cataract extraction History of partial hysterectomy History of carpal tunnel surgery of right wrist History of broken collarbone sx to repair History of tooth extraction all teeth H/O partial thyroidectomy (~1989) d/t hemorrhaging?--unknown cause, no meds Family History Mother , from ovarian cancer Cancer Ovarian Sister Cancer Ovarian Father COPD (chronic obstructive pulmonary disease) Other No family history of adverse response to anesthesia Social History Smoking Status: Former smoker Tobacco Type: Cigarettes Age Started Using Tobacco: 17; Age Quit Using Tobacco: 64; packs per day: 1; Cigarettes Per Day: < 1PPD; Second Hand Exposure: No; Do You Dip or Chew Tobacco: No; Hx Alcohol Use: No Hx Substance Use: No Preferred Language: Czech 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 Ability: Effective [employer]ter 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 Beliefs That Will Affect Care: None marital status: Current Living Situation: Family Current Living Situation Comment: Lives with daughter Virgen Feels Safe at Home: Yes Assistive Devices: Oxygen - Continuous and Wheelchair Allergies Allergies Allergy/AdvReac Type Severity Reaction Status Date / Time aspirin AdvReac Intermediate GI SYMPTOMS Verified 09/01/23 15:29 Home Meds Home Medications Medication Instructions Recorded Confirmed escitalopram oxalate 10 mg tablet 15 mg PO QAM 08/05/22 09/22/23 (Lexapro) ergocalciferol (vitamin D2) 1,250 1,250 mcg PO WK 03/26/23 09/22/23 mcg (50,000 unit) capsule azithromycin 250 mg tablet 250 mg PO 3XWK 07/06/23 09/22/23 roflumilast 500 mcg tablet 500 mcg PO QAM 07/06/23 09/22/23 fexofenadine 180 mg tablet 180 mg PO DAILY 09/01/23 09/22/23 valsartan 80 mg tablet 80 mg PO DAILY 09/22/23 09/22/23 Previous Rx's Medication Instructions Recorded CPAP Machine #1 ea 12/06/19 CPAP Supplies #1 ea 05/11/21 Portable Oxygen #1 ea 09/15/22 fluticasone fur. 100 mcg-umeclid 1 inh inhalation DAILY #28 ea 06/08/23 62.5 mcg-vilant 25 mcg inhalat.powder (Trelegy Ellipta) ipratropium 0.5 mg-albuterol 3 mg 3 ml inhalation QID PRN Shortness 06/08/23 (2.5 mg base)/3 mL nebulization Of Breath #360 mL soln albuterol sulfate 90 mcg/actuation 2 puff inhalation Q4H PRN 06/21/23 aerosol inhaler shortness of breath or wheezing #8.5 grams Results & Data (ED) Vital Signs Vital Signs - 24 hr 09/22/23 11:54 09/22/23 12:00 09/22/23 12:09 Temperature 36.6 C Temperature Source Temporal Artery Scan Pulse Rate 93 H 138 H Pulse Rate [Right Finger] Pulse Rate from SpO2 Sensor 129 H Pulse Rhythm Regular Pulse Strength Normal Respiratory Rate 20 25 H Respiratory Effort / Characteristics Non-Labored Spontaneous Respiratory Depth Normal Blood Pressure 123/70 Blood Pressure [Left Arm] Blood Pressure Mean 87 Blood Pressure Mean [Left Arm] Blood Pressure Position Sitting Pulse Oximetry 94 94 95 Oxygen Delivery Method Nasal Cannula Nasal Cannula Oxygen Flow Rate 4 4 Sepsis Recent Fever Within 48 Hours No Sepsis New/Unexplained Change in Mental Status N/A Sepsis Action Taken by Nursing No Action Required 09/22/23 12:12 09/22/23 12:18 09/22/23 12:50 Temperature Temperature Source Pulse Rate 91 H Pulse Rate [Right Finger] 84 Pulse Rate from SpO2 Sensor Pulse Rhythm Pulse Strength Respiratory Rate 20 Respiratory Effort / Characteristics Respiratory Depth Blood Pressure Blood Pressure [Left Arm] 139/79 Blood Pressure Mean Blood Pressure Mean [Left Arm] 99 Blood Pressure Position Pulse Oximetry 97 90 Oxygen Delivery Method Nasal Cannula Nebulizer Oxygen Flow Rate 14 Sepsis Recent Fever Within 48 Hours Sepsis New/Unexplained Change in Mental Status Sepsis Action Taken by Nursing 09/22/23 13:06 09/22/23 14:03 Temperature Temperature Source Pulse Rate 76 96 H Pulse Rate [Right Finger] Pulse Rate from SpO2 Sensor 81 90 Pulse Rhythm Pulse Strength Respiratory Rate 14 25 H Respiratory Effort / Characteristics Respiratory Depth Blood Pressure Blood Pressure [Left Arm] Blood Pressure Mean Blood Pressure Mean [Left Arm] Blood Pressure Position Pulse Oximetry 88 L 99 Oxygen Delivery Method Oxygen Flow Rate Sepsis Recent Fever Within 48 Hours Sepsis New/Unexplained Change in Mental Status Sepsis Action Taken by Nursing Laboratory Data 09/22/23 12:26 09/22/23 12:26 Lab Results 09/22/23 09/22/23 Range/Units 12:26 Unknown WBC 6.82 (4.8-10.8) K/ul RBC 3.76 L (4.20-5.40) M/uL Hgb 10.8 L (12.0-16.0) g/dl Hct 33.1 L (37.0-47.0) % MCV 88.0 (80.0-100.0) fL MCH 28.7 (25.0-34.0) pg MCHC 32.6 (32.0-36.0) g/dL RDW Std Deviation 44.2 (36.4-46.3) fL RDW Coeff of Audrey 13.6 (11.5-14.5) % Plt Count 225 (130-400) K/uL MPV 9.3 L (9.4-12.4) fL Immature Gran % (Auto) 0.3 % Neut % (Auto) 69.7 % Lymph % (Auto) 17.2 % Pitt % (Auto) 7.6 % Eos % (Auto) 4.5 % Baso % (Auto) 0.7 % Neut # (Auto) 4.75 (1.40-6.50) K/uL Lymph # (Auto) 1.17 L (1.20-3.40) K/uL Pitt # (Auto) 0.52 (0.11-0.59) K/uL Eos # (Auto) 0.31 (0.00-0.50) K/uL Baso # (Auto) 0.05 (0.00-0.20) K/uL Immature Gran # (Auto) 0.02 (0.01-0.20) K/uL Sodium 141 (136-145) mmol/L Potassium 3.5 (3.5-5.1) mmol/L Chloride 107 (98-107) mmol/L Carbon Dioxide 27 (21-32) mmol/L Anion Gap 7 (3-11) BUN 9 (6-23) mg/dl Creatinine 0.81 (0.6-1.2) mg/dl Est Cr Clr Drug Dosing 62.8 ml/min Est GFR ( Amer) 86.5 ml/min Est GFR (Non-Af Amer) 74.6 ml/min BUN/Creatinine Ratio 11.1 (10-20) Glucose 112 H (70-99(Fasting)) mg/dl Calcium 8.7 (8.6-10.3) mg/dl Total Bilirubin 0.6 (0.2-1.0) mg/dl AST 15 (13-39) U/L ALT 19 (7-52) U/L Alkaline Phosphatase 112 H (34-104) U/L Troponin I High Sens 4.6 (0-14) pg/ml Total Protein 6.2 (6.0-8.3) gm/dl Albumin 3.7 (3.4-5.0) gm/dl Globulin 2.5 (2.5-4.0) gm/dl Albumin/Globulin Ratio 1.5 (0.9-2) Lipase 19 (11-82) U/L Adenovirus (PCR) Not Detected (NotDetected) B. pertussis DNA (PCR) Not Detected (NotDetected) B.parapertussis DNA PCR Not Detected (NotDetected) C. pneumoniae DNA (PCR) Not Detected (NotDetected) Coronavirus OC43 (PCR) Not Detected (NotDetected) Coronavirus HKU1 (PCR) Not Detected (NotDetected) Coronavirus 229E (PCR) Not Detected (NotDetected) SARS-CoV-2 (PCR) Not Detected (NotDetected) Coronavirus NL63 (PCR) Not Detected (NotDetected) Human Metapneumovir PCR Not Detected (NotDetected) Influenza Type A (PCR) Not Detected (NotDetected) Influenza Type B (PCR) Not Detected (NotDetected) M. pneumoniae (PCR) Not Detected (NotDetected) Parainfluenza 1 (PCR) Not Detected (NotDetected) Parainfluenza 2 (PCR) Not Detected (NotDetected) Parainfluenza 3 (PCR) Not Detected (NotDetected) Parainfluenza 4 (PCR) Not Detected (NotDetected) RSV (PCR) Not Detected (NotDetected) Entero/Rhino (PCR) Not Detected (NotDetected) Administered Medications Discontinued Medications Albuterol (Albut/Ipratrop 3mg/0.5mg Neb 3 Ml Vial) 12 ml NEB ONE ONE; Protocol Stop: 09/22/23 12:11 Last Admin: 09/22/23 12:43 Dose: 12 ml Documented By: DHARMESH Albuterol (Albuterol 0.083% Nebu Soln 3 Ml Vial) 2.5 mg NEB NOW STA; Protocol Stop: 09/22/23 14:58 Last Admin: 09/22/23 15:12 Dose: 2.5 mg Documented By: NRReina Methylprednisolone (Methylprednisolone 125 Mg/2 Ml Vial) 40 mg IV NOW STA Stop: 09/22/23 12:11 Last Admin: 09/22/23 12:38 Dose: 40 mg Documented By: DHARMESH Imaging Data Radiologist's Impression: Chest X-Ray 09/22/23 12:10 XR chest 1V portable HISTORY: Chest pain, nonspecific COMPARISON: Chest 09/01/2023. FINDINGS: No pneumothorax. No pleural effusions. The cardiac silhouette is borderline enlarged. Chronic interstitial thickening is again noted. This is similar to the prior study. Emphysema. No new focal lung consolidations to suggest a pneumonia. No evidence for pulmonary edema. IMPRESSION: 1. Chronic interstitial thickening and emphysema again noted. 2. No new focal lung consolidations to suggest a pneumonia. ACT 112: Negative or not required by law. Electronically signed by: Rodrigue Palacios M.D. 09/22/2023 1:05 PM Discharge Plan Visit Data Chief Complaint: Shortness of Breath/Dyspnea Stated Complaint: TROUBLE BREATHING ED Provider: Roshan Hendrix Discharge Problem: Acute exacerbation of chronic obstructive pulmonary disease, Shortness of breath Forms Stand Alone Forms: [facility] Prescriptions Prescriptions: No Action albuterol sulfate 90 mcg/actuation HFA aerosol inhaler 2 puff inhalation Q4H PRN (Reason: shortness of breath or wheezing) Qty: 8.5 3RF Rx Instructions: Generic for ProAir- Patient can not use Ventolin Trelegy Ellipta 100-62.5-25 mcg blister with device 1 inh inhalation DAILY Qty: 28 7RF ipratropium-albuterol 0.5 mg-3 mg(2.5 mg base)/3 mL solution for nebulization 3 ml INH QID PRN (Reason: Shortness Of Breath) Qty: 360 5RF (DME) CPAP Machine Misc See Rx Instructions .MEDSUPPLY Qty: 1 0RF Rx Instructions: Auto-titration CPAP with pressure range between 5 cm H2O and 15 cm H2O with humidification. Lifetime need. (DME) CPAP Supplies Misc See Rx Instructions .MEDSUPPLY Qty: 1 0RF Rx Instructions: Refitting of the mask. G47.33 (DME) Portable Oxygen Misc See Rx Instructions .Route Qty: 1 0RF Rx Instructions: portable oxygen concentrator- 3LPM on exertion via n/c. SILVIA:99 ergocalciferol (vitamin D2) 1,250 mcg (50,000 unit) capsule 1,250 mcg PO WK Rx Instructions: MONDAYS escitalopram oxalate [Lexapro] 10 mg tablet 15 mg PO QAM fexofenadine 180 mg Tablet 180 mg PO DAILY Rx Instructions: otc. unable to verify with pharmacy azithromycin 250 mg tablet 250 mg PO 3XWK Hold Instructions: Resume on 09/09/23. Rx Instructions: MON, WED, & FRI. roflumilast 500 mcg tablet 500 mcg PO QAM valsartan 80 mg tablet 80 mg PO DAILY Referrals Referrals: Maya Weller, OTR [Primary Care Provider] -
[2023-09-22] MEDS: methylPREDNISolone 125 MG/2 ML VIAL IV STA (12:38)
[2023-09-22] MEDS: ALBUT/IPRATROP 3MG/0.5MG NEB 3 ML VIAL NEB ONE (12:43)
[2023-09-22 12:54] LABS: Basophils # (auto) 0.05 K/uL (0.00-0.20); Basophils % (auto) 0.7 %; Eosinophils # (auto) 0.31 K/uL (0.00-0.50); Eosinophils % (auto) 4.5 %; Hematocrit (blood only) 33.1 % (37.0-47.0); Hemoglobin 10.8 g/dl (12.0-16.0); Immature Granulocytes # (auto) 0.02 K/uL (0.01-0.20); Immature Granulocytes % (auto) 0.3 %; Lymphocytes # (auto) 1.17 K/uL (1.20-3.40); Lymphocytes % (auto) 17.2 %; Mean Corpuscular Hemoglobin 28.7 pg (25.0-34.0); Mean Corpuscular Hgb Conc 32.6 g/dL (32.0-36.0); Mean Platelet Volume 9.3 fL (9.4-12.4); Monocytes # (auto) 0.52 K/uL (0.11-0.59); Monocytes % (auto) 7.6 %; Neutrophils # (auto) 4.75 K/uL (1.40-6.50); Neutrophils % (auto) 69.7 %; Platelet Count 225 K/uL (130-400); RDW Coefficient of Variation 13.6 % (11.5-14.5); RDW Standard Deviation 44.2 fL (36.4-46.3); Red Blood Count 3.76 M/uL (4.20-5.40); White Blood Count 6.82 K/ul (4.8-10.8)
[2023-09-22 13:04] LABS: Albumin Globulin Ratio 1.5 (0.9-2); Albumin Level 3.7 gm/dl (3.4-5.0); BUN Creatinine Ratio 11.1 (10-20); Bilirubin,Total 0.6 mg/dl (0.2-1.0); Calcium 8.7 mg/dl (8.6-10.3); Creatinine Clr Calc Pharmacy 62.8 ml/min; Est GFR (African American) 86.5 ml/min; Est GFR (Non-African American) 74.6 ml/min; Globulin 2.5 gm/dl (2.5-4.0); Potassium 3.5 mmol/L (3.5-5.1); Total Protein 6.2 gm/dl (6.0-8.3)
[2023-09-22 13:06] LABS: Troponin I High Sensitivity 4.6 pg/ml (0-14)
--- NOTE | 2023-09-22 13:06 | XRay Report ---
XR chest 1V portable HISTORY: Chest pain, nonspecific COMPARISON: Chest 09/01/2023. FINDINGS: No pneumothorax. No pleural effusions. The cardiac silhouette is borderline enlarged. Chron ic interstitial thickening is again noted. This is similar to the prior study. Emphysema. No new foca l lung consolidations to suggest a pneumonia. No evidence for pulmonary edema. IMPRESSION: 1. Chronic interstitial thickening and emphysema again noted. 2. No new focal lung consolidations to suggest a pneumonia. ACT 112: Negative or not required by law. Electronically signed by: Rodrigue Palacios M.D. 09/22/2023 1:05 PM
[2023-09-22 13:30] LABS: Adenovirus PCR Not Detected (NotDetected); Bordetella parapertussis PCR Not Detected (NotDetected); Bordetella pertussis PCR Not Detected (NotDetected); Chlamydia pneumoniae PCR Not Detected (NotDetected); Coronavirus 229E PCR Not Detected (NotDetected); Coronavirus CoV-2 (COVID19)PCR Not Detected (NotDetected); Coronavirus HKU1 PCR Not Detected (NotDetected); Coronavirus NL63 PCR Not Detected (NotDetected); Coronavirus OC43PCR Not Detected (NotDetected); Human Metapneumovirus PCR Not Detected (NotDetected); Influenza A PCR Not Detected (NotDetected); Influenza B PCR Not Detected (NotDetected); Mycoplasma pneumoniae PCR Not Detected (NotDetected); Parainfluenza Virus 1 PCR Not Detected (NotDetected); Parainfluenza Virus 2 PCR Not Detected (NotDetected); Parainfluenza Virus 3 PCR Not Detected (NotDetected); Parainfluenza Virus 4 PCR Not Detected (NotDetected); Respiratory Syncytial VirusPCR Not Detected (NotDetected); Rhinovirus/Enterovirus PCR Not Detected (NotDetected)
[2023-09-22] MEDS: ALBUTEROL 0.083% NEBU SOLN 3 ML VIAL NEB STA (15:12)
--- NOTE | 2023-09-22 15:40 | History & Physical Report ---
Date of Service September 22, 2023 Assessment & Plan (1) Acute exacerbation of chronic obstructive pulmonary disease (COPD): Plan: SOB, productive cough, and burning chest pain that began on 09/17 End-stage COPD; recently underwent testing for lung transplant at [facility] negative CXR negative for pneumonia Sputum culture ordered, pending Incentive spirometry, flutter valve Azithromycin 500 mg IV q24h; QTc okay Guaifenesin 1200 mg p.o. BID DuoNeb 3 mL Q6R Budesonide and formoterol Solu-Medrol 60 mg IV TID Continue home Roflumilast A.m. CBC, BMP (2) Acute on chronic respiratory failure with hypoxia: Plan: Continuous 4 L NC at baseline Supplemental oxygen as needed to maintain SpO2 89-92% Continuous pulse oximetry (3) Lung transplant candidate: Plan: Still awaiting testing results from [facility] (4) Sleep apnea, obstructive: Plan: CPAP HS (5) Anxiety with depression: Plan: Continue escitalopram Plan Disposition: Admit to [facility] telemetry Full code Regular diet DVT PPx: SCDs History of Present Illness Chief Complaint: SOB/dyspnea Primary Care Provider: JAXON Valles Masha is a 67-year-old female with PMH of COPD, tobacco use, acute on chronic respiratory failure with hypoxia, ALHAJI, and acid reflux. She presented for SOB, productive cough, and burning chest pain x 2 days. Recent [place] hospitalization from 08/31 to 09/03 for similar. Patient reports she has severe, worsening TAPIA, as well as SOB at rest (she describes as a "chest heaviness" and "burning"). She often has to stop 2-3 times when walking to the bathroom. SOB is worse when she lies flat on her back. She has a productive cough, which she describes as deep. She did not take any of her regular morning medications today (only DuoNeb). No recent change in medications. Patient recently ran out of her azithromycin a couple days ago, and picked it up on Tuesday; otherwise she reports good compliance with her medications at home. Patient is on continuous supplemental oxygen 4 L NC at baseline. She has been turning up to 5L NC over the past 2 days. Recent testing in August to determine eligibility for lung transplant at [facility] (still waiting to hear back on results). No sick contacts. Patient reports that she has been sitting outside on her porch more often due to the nice weather, and believes spring allergies may be contributing. Patient is a former tobacco cigarette smoker but quit smoking 4 years ago. She denies any recent alcohol use. No history of DVT/PE, rashes, or tick bites. Patient is tachypneic at 25 RPM at time of admission; SpO2 stable on 4 LNC. ED course: DuoNeb 12 mL Solu-Medrol 40 mg IV ROS: Patient endorses BLUE, severe TAPIA, SOB at rest, chest pain (which patient describes as "burning/heaviness"), orthopnea, productive cough, chest palpitations when up walking around, diarrhea x 2 days (which patient attributes to azithromycin), Patient denies fever, chills, night-sweats, dizziness, lightheadedness, hemoptysis , nausea, vomiting, change in urinary/bowel habits, or numbness/tingling in the arms or legs. Allergies Allergy/AdvReac Type Severity Reaction Status Date / Time aspirin AdvReac Intermediate GI SYMPTOMS Verified 09/01/23 15:29 Home Medications Medication Instructions Recorded Confirmed Type CPAP Machine #1 ea 12/06/19 09/09/23 Rx CPAP Supplies #1 ea 05/11/21 09/09/23 Rx escitalopram oxalate 10 mg tablet 15 mg PO QAM 08/05/22 09/22/23 History (Lexapro) Portable Oxygen #1 ea 09/15/22 09/09/23 Rx ergocalciferol (vitamin D2) 1,250 1,250 mcg PO WK 03/26/23 09/22/23 History mcg (50,000 unit) capsule fluticasone fur. 100 mcg-umeclid 1 inh inhalation DAILY #28 ea 06/08/23 09/22/23 Rx 62.5 mcg-vilant 25 mcg inhalat.powder (Trelegy Ellipta) ipratropium 0.5 mg-albuterol 3 mg 3 ml inhalation QID PRN Shortness 06/08/23 09/22/23 Rx (2.5 mg base)/3 mL nebulization Of Breath #360 mL soln albuterol sulfate 90 mcg/actuation 2 puff inhalation Q4H PRN 06/21/23 09/22/23 Rx aerosol inhaler shortness of breath or wheezing #8.5 grams azithromycin 250 mg tablet 250 mg PO 3XWK 07/06/23 09/22/23 History roflumilast 500 mcg tablet 500 mcg PO QAM 07/06/23 09/22/23 History fexofenadine 180 mg tablet 180 mg PO DAILY 09/01/23 09/22/23 History valsartan 80 mg tablet 80 mg PO DAILY 09/22/23 09/22/23 History Past Med/Surg History Problem List (Updated 09/22/23 @ 16:07 by Roshan Hendrix DO) Shortness of breath (Acute) Acute exacerbation of chronic obstructive pulmonary disease (Acute) Hypoxia (Acute) Failure of outpatient treatment (Acute) Acute exacerbation of chronic obstructive pulmonary disease (COPD) (Acute) Encounter for pre-operative examination Rhinovirus infection (Acute) Acute and chronic respiratory failure (Acute) Parainfluenza type 1 infection (Acute) Acute pericardial effusion (Acute) Acute exacerbation of chronic obstructive pulmonary disease (Acute) Lower back pain Goals of care, counseling/discussion Palliative care encounter Pneumonia (Acute) Acute respiratory failure with hypoxia and hypercapnia Failure of outpatient treatment (Acute) Paroxysmal atrial tachycardia Leukocytosis Acute exacerbation of chronic obstructive pulmonary disease (Acute) SOB (shortness of breath) (Acute) Acid reflux Influenza A (Acute) Acute respiratory failure with hypercapnia COVID-19 (Acute) Chest pain (Acute) Ex-smoker COPD (chronic obstructive pulmonary disease) (Acute) Chronic respiratory failure with hypoxia (Acute) COVID (Acute) COVID Dyspnea Cough Fever Acute on chronic respiratory failure with hypoxia (Acute) Dysfunction of both eustachian tubes Acute respiratory failure with hypoxia Paroxysmal atrial tachycardia Acute dyspnea (Acute) History of tobacco use Lung transplant candidate Sacroiliitis Multiple pulmonary nodules no biopsies, monitored COPD exacerbation (Acute) [facility] 03/2023 Chronic respiratory failure SOB (shortness of breath) (Acute) "all the time" Anxiety with depression Chronic obstructive pulmonary disease with hypoxia 3L O2 ms, [facility] Pulm Dr. Dhillon Sleep apnea, obstructive (Chronic) CPAP Medical History Family history of paroxysmal atrial tachycardia History of COVID-19 (~2021) x3 sob, cough, fatigue; resolved History of recent pneumonia (~09/2022) Surgical History Hx of cardiac catheterization (~2022) Had in [place] as part of work up for [facility] to get on Lung Transplant list, no stents Hx of colonoscopy with polypectomy Hx of bilateral cataract extraction History of partial hysterectomy History of carpal tunnel surgery of right wrist History of broken collarbone sx to repair History of tooth extraction all teeth H/O partial thyroidectomy (~1989) d/t hemorrhaging?--unknown cause, no meds Family History Mother , from ovarian cancer Cancer Ovarian Sister Cancer Ovarian Father COPD (chronic obstructive pulmonary disease) Other No family history of adverse response to anesthesia Social History Smoking Status: Former smoker Tobacco Type: Cigarettes Age Started Using Tobacco: 17; Age Quit Using Tobacco: 64; packs per day: 1; Cigarettes Per Day: < 1PPD; Second Hand Exposure: No; Do You Dip or Chew Tobacco: No; Hx Alcohol Use: No Hx Substance Use: No Preferred Language: Bulgarian 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 Ability: Effective Consumer Education Specialist 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 Beliefs That Will Affect Care: None marital status: Current Living Situation: Family Current Living Situation Comment: Lives with daughter Virgen Other Information That Helps Us Care for You: No Feels Safe at Home: Yes Assistive Devices: CPAP, Denture - Upper and Denture - Lower Review of Systems Review of Systems: See HPI above Physical Exam Physical Exam: General: Mild respiratory distress; pleasant affect; non-toxic appearing; cooperative HEENT: normocephalic, atraumatic; no scleral icterus; PERRLA; moist mucus membrane; vision and hearing grossly intact Neck: supple; no lymphadenopathy; trachea midline Skin: warm, dry without signs of tenting; no cyanosis; no rashes, bruising, lesions, or erythema noted CV: chest wall NTP; RRR; S1/S2 normal; no murmurs/rubs/gallops; pulses intact and symmetric at radial, DP, and PT Lungs: no acute respiratory distress; symmetrical chest wall expansion; diminished breath sounds across all lung wharton with mild basilar crackles bilaterally ABD: Soft, NTP; BS present; no rebound/guarding; no distention MSK: no tics or fasciculations; no edema noted in the LEs b/l, nonerythematous Neuro: A&Ox3; normal mood and affect; fluent speech; no focal deficits; sensation grossly intact in the LEs b/l Results & Data Results & Data Vital Signs (Past 12 Hours) Vital Signs Temp Pulse Pulse Resp BP BP Pulse Ox 09/22/23 14:03 96 H 25 H 99 09/22/23 13:06 76 14 88 L 09/22/23 12:50 84 20 139/79 90 09/22/23 12:18 91 H 09/22/23 12:12 97 09/22/23 12:09 138 H 25 H 95 09/22/23 12:00 94 09/22/23 11:54 36.6 C 93 H 20 123/70 94 O2 Del Method O2 Flow Rate 09/22/23 14:03 09/22/23 13:06 09/22/23 12:50 Nebulizer 09/22/23 12:18 09/22/23 12:12 Nasal Cannula 14 09/22/23 12:09 09/22/23 12:00 Nasal Cannula 4 09/22/23 11:54 Nasal Cannula 4 Laboratory Results Abnormal lab results 09/22/23 Range/Units 12:26 RBC 3.76 L (4.20-5.40) M/uL Hgb 10.8 L (12.0-16.0) g/dl Hct 33.1 L (37.0-47.0) % MPV 9.3 L (9.4-12.4) fL Lymph # (Auto) 1.17 L (1.20-3.40) K/uL Glucose 112 H (70-99(Fasting)) mg/dl Alkaline Phosphatase 112 H (34-104) U/L Diagnostic Findings Chest X-Ray 09/22/23 12:10 XR chest 1V portable HISTORY: Chest pain, nonspecific COMPARISON: Chest 09/01/2023. FINDINGS: No pneumothorax. No pleural effusions. The cardiac silhouette is borderline enlarged. Chronic interstitial thickening is again noted. This is similar to the prior study. Emphysema. No new focal lung consolidations to suggest a pneumonia. No evidence for pulmonary edema. IMPRESSION: 1. Chronic interstitial thickening and emphysema again noted. 2. No new focal lung consolidations to suggest a pneumonia. ACT 112: Negative or not required by law. Electronically signed by: Rodrigue Palacios M.D. 09/22/2023 1:05 PM ECG Additional Comments: ECG revealed NSR at 91bpm; QTc 445 Code Status & VTE Plan Code Status Full code Supervising Physician Co-Signing Physician Notes Patient seen and examined, chart reviewed, case discussed with Rodrigue Faulkner PA-C and I agree with the assessment and plan as above except as otherwise noted Labs and images reviewed 67-year-old female history of COPD presents with shortness of breath, productive cough consistent with acute COPD exacerbation. She does have end-stage COPD on 4 L nasal cannula oxygen. Is awaiting results after her initial evaluation of [facility] for lung transplant due to end-stage COPD. Does not show signs of superimposed pneumonia on admission. Is with scattered expiratory wheezes on admission. Agree with steroids, antibiotics, COPD management as noted. No evidence of pneumonia on chest x-ray. PG Care Time/CCT Total # of Minutes Spent Total Time Spent with Patient: Total time spent is greater than 50% in coordination of care (as documented) at patient's floor/unit and/or counseling patient: [place] [address] INT INP/OBS CARE 3/75MIN Patient Type Established History Comprehensive Exam Comprehensive Medical Decision Making High Complexity Diagnoses Acute exacerbation of chronic obstructive pulmonary disease (COPD) J44.1 Acute on chronic respiratory failure with hypoxia J96.21 Lung transplant candidate Z76.82 Sleep apnea, obstructive G47.33 Anxiety with depression F41.8
[2023-09-22] MEDS: AZITHROMYCIN 500 MG in DEXTROSE 5% 250 ML IV STA (16:31)
[2023-09-22] MEDS ORDERED: ALBUTEROL HFA 8 GM INHALER INH PRN (19:01)
[2023-09-22] MEDS: FORMOTEROL 20 MCG/2 ML VIAL NEB SCH (19:47)
[2023-09-22] MEDS: BUDESONIDE 0.5 MG/2 ML VIAL (PULMICORT) NEB SCH (19:47)
[2023-09-22] MEDS: ALBUT/IPRATROP 3MG/0.5MG NEB 3 ML VIAL INH SCH (19:48)
[2023-09-22] MEDS: ACETAMINOPHEN 325 MG TAB PO PRN (19:55)
[2023-09-22] MEDS: methylPREDNISolone 60 MG in SYRINGE 0 ML IV SCH (19:59)
[2023-09-22] MEDS: guaiFENesin 600 MG TABCR PO SCH (20:41)
[2023-09-23 07:24] LABS: Basophils # (auto) 0.01 K/uL (0.00-0.20); Basophils % (auto) 0.1 %; Hematocrit (blood only) 36.2 % (37.0-47.0); Hemoglobin 12.1 g/dl (12.0-16.0); Immature Granulocytes # (auto) 0.08 K/uL (0.01-0.20); Immature Granulocytes % (auto) 0.9 %; Lymphocytes % (auto) 8.9 %; Mean Corpuscular Hgb Conc 33.4 g/dL (32.0-36.0); Mean Corpuscular Volume 86.8 fL (80.0-100.0); Mean Platelet Volume 9.4 fL (9.4-12.4); Monocytes # (auto) 0.15 K/uL (0.11-0.59); Monocytes % (auto) 1.7 %; Neutrophils # (auto) 7.97 K/uL (1.40-6.50); Neutrophils % (auto) 88.4 %; Platelet Count 301 K/uL (130-400); RDW Coefficient of Variation 13.4 % (11.5-14.5); Red Blood Count 4.17 M/uL (4.20-5.40); White Blood Count 9.01 K/ul (4.8-10.8)
[2023-09-23 07:51] LABS: BUN Creatinine Ratio 20.5 (10-20); Calcium 9.2 mg/dl (8.6-10.3); Creatinine Clr Calc Pharmacy 64.1 ml/min; Est GFR (African American) 90.5 ml/min; Est GFR (Non-African American) 78.1 ml/min; Potassium 4.6 mmol/L (3.5-5.1)
[2023-09-23] MEDS: FEXOFENADINE HCL 180 MG TAB PO SCH (08:46)
[2023-09-23] MEDS: ESCITALOPRAM OXALATE 10 MG TAB PO SCH (08:46)
[2023-09-23] MEDS: VALSARTAN 80 MG TAB PO SCH (08:46)
[2023-09-23] MEDS: ROFLUMILAST 500 MCG TAB PO SCH (08:46)
[2023-09-23 08:47] LABS: Adenovirus F 40/41 PCR Not Detected (NotDetected); Astrovirus PCR Not Detected (NotDetected); Campylobacter PCR Not Detected (NotDetected); Cryptosporidium PCR Not Detected (NotDetected); Cyclospora cayetanensis PCR Not Detected (NotDetected); Entamoeba histolytica PCR Not Detected (NotDetected); Enteroaggregative E.coli(EAEC) Not Detected (NotDetected); Enteropathogenic E.coli (EPEC) Not Detected (NotDetected); Enterotoxigenic E.coli (ETEC) Not Detected (NotDetected); Giardia lamblia PCR Not Detected (NotDetected); Norovirus GI/GII PCR Not Detected (NotDetected); Plesiomonas shigelloides PCR Not Detected (NotDetected); Rotavirus A PCR Not Detected (NotDetected); Salmonella PCR Not Detected (NotDetected); Sapovirus PCR Not Detected (NotDetected); Shiga-like Toxin E.coli (STEC) Not Detected (NotDetected); Shigella/Enteroinvasive E.coli Not Detected (NotDetected); Vibrio cholerae PCR Not Detected (NotDetected); Vibrio species PCR Not Detected (NotDetected); Yersinia enterocolitica PCR Not Detected (NotDetected)
[2023-09-23] MEDS: FLUTICASONE FUROATE 100MCG 14 PUFFS/INHALER INH SCH (08:47)
[2023-09-23] MEDS: UMECLIDINIUM/VILANTEROL 62.5/25MCG 7 PUFFS/INHALER INH SCH (08:47)
[2023-09-23] MEDS ORDERED: NON-FORMULARY MEDICATION (Fluticasone-Umeclidin-Vilanter [Trelegy Ellipta] 100-62.5-25 mcg INH SCH (09:00)
--- OUTSIDE RECORDS SUMMARY | 2023-09-23 09:42 | External Medical Summary | Continuity of Care Document ---
Author Name Unknown Organization [address] [place] [id number] Care Team Providers Care Powerplant Operator Name Role Phone Giuliana Welleranda Primary Care Physician [phone] [facility]counter [facility] [id number] Date(s): 09/09/23 - 09/09/23 [facility] 0 [facility] [place], [place] 207 [facility] [address] [place] [phone] Encounter Diagnosis COPD with acute exacerbation(Discharge Diagnosis) - 09/09/23 Discharge Disposition: Home or Self Care Attending Physician: MD Sherwood Joseph P Allergies, Adverse Reactions, Alerts Substance Criticality Severity Reaction Reaction Severity Status ASA (aspirin) upset stomach Ac tive Immunizations Given and Recorded Vaccine Date Status Refusal Reason RSV vaccine preF3, recombinant 06/14/23 Recorded SARS-CoV-2 (COVID-19) mRNA-vacc - [id number] 05/31/23 Recorded tetanus/diphtheria/pertuss, acel (Tdap) 05/24/23 G iven tetanus/diphtheria/pertuss, acel (Tdap) 09/27/08 R ecorded influenza virus vaccine, inactivated 12/30/22 Give n influenza virus vaccine, inactivated 12/28/21 Give n influenza virus vaccine, inactivated 02/10/18 Arvind rded pneumococcal 20-valent conjugate vaccine 12/30/22 Given pneumococcal 13-valent vaccine 04/22/21 Given pneumococcal 23-valent vaccine 02/10/18 Recorded pneumococcal 23-valent vaccine 04/19/17 Given hepatitis B adult vaccine 08/29/12 Recorded hepatitis B adult vaccine 03/31/12 Recorded hepatitis B adult vaccine 03/01/12 Recorded tetanus toxoids-diphtheria, Td (Adult) 10/13/93 Re corded Medications albuterol 0.083% for nebulization Start: 12/09/22 4:16:00 PM EDT, 3 mL, NEB, q6h, Disp# 300 mL, Refills: 3, PRN: as needed for wheezing, Pharmacy: [facility] 1639 Start Date: 12/09/22 Stop Date: 12/04/23 Status: Ordered albuterol-ipratropium 2.5 mg-0.5 mg/3 mL inhalation solution Start: 12/09/22 4:16:00 PM EDT, See Instructions, Disp# 270 mL, Refills: 3, USE 1 VIAL IN NEBULIZER FOUR TIMES A DAY NEEDED SHORT OF BREATH ORWHEEZING, Pharmacy: [facility] Start Date: 12/09/22 Status: Ordered azelastine 205.5 mcg/inh (0.15%) nasal spray Start: 11/12/22 3:05:00 PM EDT, 1 spray, each nostril, bid, Disp# 1 each, Refills: 3, PRN: allergy symptoms, Pharmacy: [facility] Start Date: 11/12/22 Status: Ordered azithromycin 250 mg oral tablet Start: 06/14/23 9:02:00 AM EST, 1 tab, PO, Daily Start Date: 06/14/23 Status: Ordered cefdinir 300 mg oral capsule Start: 09/09/23 9:14:00 AM EDT Start Date: 09/09/23 Status: Ordered escitalopram 10 mg oral tablet Start: 12/09/22 3:56:00 PM EDT, 1.5 tab, PO, Daily, Disp# 45 tab, Refills: 5, Pharmacy: [facility] Start Date: 12/09/22 Stop Date: 06/07/23 Status: Ordered LORazepam 0.5 mg oral tablet Start: 12/23/21 5:04:00 PM EDT, 1 tab, PO, q8h, PRN: as needed for anxiety Start Date: 12/23/21 Status: Ordered Macrobid 100 mg oral capsule Start: 06/14/23 9:38:00 AM EST, 1 cap, PO, bid, Disp# 10 cap, Refills: 0, Pharmacy: [facility] Start Date: 06/14/23 Stop Date: 06/19/23 Status: Ordered predniSONE 20 mg oral tablet Start: 09/09/23 9:14:00 AM EDT Start Date: 09/09/23 Status: Ordered ProAir HFA 90 mcg/inh inhalation aerosol Start: 12/09/22 4:14:00 PM EDT, 2 puff, inhaled, qid, Disp# 18 g, Refills: 3, or equivalent medicineat a cheaper palacios, PRN: as needed for wheezing and cough, Pharmacy: [facility] Start Date: 12/09/22 Stop Date: 12/04/23 Status: Ordered Suprep Bowel Prep Kit oral liquid Start: 06/15/23 2:52:00 PM EST, See Instructions, Disp# 354 mL, Refills: 0, Take as directed., Pharmacy: [facility] Start Date: 06/15/23 Status: Ordered Sutab oral tablet Start: 06/30/23 7:06:00 AM EDT, See Instructions, Disp# 1 kit, Follow instructions from endoscopy lab, Pharmacy: [facility] Start Date: 06/30/23 Status: Ordered Trelegy Ellipta 100 mcg-62.5 mcg-25 mcg/inh inhalation powder Start: 04/08/23 11:35:00 AM EST, 1 puff, inhaled, Daily Start Date: 04/08/23 Status: Ordered Tylenol 500 mg oral tablet Start: 11/12/22 2:35:00 PM EDT, 1 tab, PO, q6h, Disp# 50 tab, Refills: 0, PRN: as needed for pain, Pharmacy: [facility] Start Date: 11/12/22 Stop Date: 11/26/22 Status: Ordered Tylenol Arthritis Extended Release Start: 08/11/21 12:58:00 PM EDT Start Date: 08/11/21 Status: Ordered valsartan 80 mg oral tablet Start: 06/14/23 9:04:00 AM EST Start Date: 06/14/23 Status: Ordered Mental Status 09/09/23 Barriers to Learning one year None evide nt Mandatory Health Literacy Documentation Yes Health Literacy 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 Barriers N ever Primary Language Egyptian Problem List Condition Confirmation Course Effective Dates Status H ealth Status Informant Anxiety Confirmed Active Ascending aorta dilation Confirmed Active Chronic respiratory failure with hypoxia and hypercapnia Confirmed Active Oxygen dependent Confirmed Active Dysplasia of cervix Confirmed Active Dysuria Confirmed Active Family history of ovarian cancer 1 Confirmed Active History of COVID-19 Confirmed Active Frequency of micturition Confirmed Active Sacroiliitis 2 Confirmed Active Low back pain Confirmed Active Mitral regurgitation Confirmed Active Osteopenia Confirmed Active Knee pain, right Confirmed Active Emphysema of lung Confirmed Active COPD, very severe Confirmed Active Left shoulder pain Confirmed Active History of prior cigarette smoking Confirmed Active 1mother and sister 2See outside note 02/01/23 Diagnosis Diagnosis Type Effective Dates Health Status Clinical Service Informant COPD with acute exacerbation Discharge Diagnosis 09/09/23 Non-Specified Procedures Procedure Date Related Diagnosis Body Site Status Colonoscopy 1 07/19/23 Completed EGD - esophagogastroduodenoscopy 2 07/19/23 Completed Chest x-ray 3 10/06/[address] of chest 4 09/17/22 Completed Chest X-ray 5 08/08/22 Completed Chest x-ray 6 08/05/22 Completed Ultrasound scan of upper abdomen 7 07/22/22 Completed Chest x-ray 8 02/28/[address] of chest 9 02/04/22 Completed Chest x-ray 10 12/17/21 Completed Chest x-ray 11 11/07/21 Completed Chest X-ray 12 10/06/21 Completed Mammogram 13 08/20/21 Completed Plain X-ray of left scapula 14 08/04/21 Completed PFT - Pulmonary function tests 15 05/29/21 Completed Chest X-ray 16 05/03/[address] angiography of chest with contrast 17 05/03/21 Completed Chest X-ray 18 04/07/21 Completed Lung cancer screening 19 03/24/21 Completed Chest X-ray 20 10/20/[address] of head 21 09/23/[address] of paranasal sinuses 22 09/23/20 Completed CXR - Chest X-ray 23 09/23/20 Comp leted Bone density scan 24 09/18/20 Comp leted XR chest 2V PA/lateral 25 08/27/20 Completed Polysomnography 26 06/22/[address] 27 06/18/19 Completed Colonoscopy 28 06/04/19 Completed Mammogram 29 05/29/19 Completed Chest x-ray 30 03/04/19 Completed Hand X-ray 31 09/12/[address] 32 05/09/13 Completed CXR - Chest X-ray 33 03/15/[address] of thorax 34 02/23/13 Completed X-ray of thoracic spine 35 01/31/13 Completed Sinuses X-ray 36 12/22/12 Complete d Shoulder X-ray 37 11/01/12 Complet ed Mammogram 38 04/07/11 Completed REMOVAL OF THYROID 39 04/18/92 Com pleted Cataract surgery Complete d Chest exclusion X-ray 40 Completed Partial or subtotal hysterectomy 41 Completed Plain X-ray of lumbar spine 42 Completed 1One 6 mm polyp in the ascending colon, removed with a cold snare. Resected and retrieved. One 10mm polyp in the transverse colon, removed with a hot snare. Resected and retrieved. Four 3 to 10 mm polyps in the rectum, removed with a hot snare. Resected and retrieved. Repeat in 3 years 2LA Grade D reflux esophagitis with no bleeding. Non-bleeding gastric ulcers with pigmented material. Non-bleeding duodenal ulcers No specimens collected. 3IMPRESSION: 1. Advanced emphysema. 2. Bibasilar opacities may represent scarring/atelectasis. Correlate clinically for evidence of a superimposed pneumonitis. 3. Nodular foci seen on the recent chest CT are not visualized by x-ray. 4Impression: 1. Multiple new nodular opacities in the [...] artery calcifications 5. Stable left thyroid nodule 5IMPRESSION: 1. No acute process of the chest. 2. Emphysema with chronic interstitial coarsening. 6Impression: 1. No acute processes of the chest 2. Emphysema with chronic interstitilal coarsning 7Impression: Hepatic steatosis. 8No acute chest disease. Stable emphysema 9Impression: 1. New nodular opacities measuring up to 1 cm within the right lower lobe, likely infectious/inflammatory. A follow-up CT chest study in 3 months is advised. 2. Severe emphysema, chronic bronchitis, and bronchiolitis. 3. Additional stable findings as described. 10Advanced emphysema with no acute cardiopulmonary abnormality identified. 111. Emphysematous change with no active disease in the chest. 2. The enlarging right lower lobe pulmonary nodule seen by CT on 05/03/2021 was not visualized by chest x-ray. This remains suspicious for neoplasm. Outpatient follow-up with pulmonology and repeat chest CT is recommended for further evaluation. 12impression: No acute cardiopulmonary findings, emphysema 13acr bi-rads catergory 1: negative, ultrasound acr bi-rads category 1: negative 141. No fractures within the left scapula 2. Mild left shoulder osteoarthritis 15FVC 2.57 L 89%, FEV1 1.04 L 46%, FEV1/FVC 41%, RV 151%, TLC 116%, RV/TLC 130%, DLCO 33%, DLCO/VA 36% 16Impression: No Acute cardiopulmonary disease 17Impression: 1 No CTA evidence for pulmonary embolus 2. Moderate to marked centrilobular emphysematous change and bullous disease. 3. Minimal pleural thickening at the right lung base with right basilar atelectasis. No confluent alveolar opacities within groundglass opacities 4. Mild coronary artery calcification. 5> Small hiatal hernia 18No acute pulmonary findings. Emphysema. 19Stable pulmonary nodules as above. Lung-RADS Assessment Category: 2, Nodules with a very low likelihood of becoming a clinically active cancer due to size or lack of growth Management Recommendation: Continue with annual screening using low-dose chest CT in 12 months 20No acute process within the chest. Emphysema 21No acute intracranial abnormality. 22The paranasal sinuses and mastoid air cells are clear. 23No acute cardiopulmonary findings. Emphysema. 24AP Spine L1-L4 T-score: -3.1 BMD: 0.809g/cm DualFemur Total Mean T--score: -2.2 BMD: 0.726g/cm 25Impression: No acute cardiopulmonary findings. Emphysema. 261. Mild obstructive sleep apnea 2. Periodic limb movement disorder 27impression 1. severe emphysema. Basilar predominant morphology could [...] chronic pleural disease 7. Possible liver failure 28Impression: Six 4 to 12 mm polyps in the rectum, in the transverse colon and in the ascending colon, removed iwth a hot snare. Resected and retrieved. Non- bleeding internal hemorrhoids Pathology: Colon, Ascending, Polypectomy: Tubular Adenoma. Colon, Transverse, Polypectomy: Fragments of Tubular Adenoma. Rectum, Polypectomy: Hyperplastic polyp 29no mammographic evidence of malignancy 30a new small patchy right middle lobe density. this likely represents a pneumonia. 1-2 month chest x-ray follow up is recommended to ensure resolution. 31No acute bony abnormality in left hand. 32Stable to somewhat improved evaluation as compared to the patients prior study. 5 mm nodular density is unchanged. The 11 mm nodular density now appears to be primarilly cystic and most likely represented a fluid filled cystic process on the prior exam. Emphysematous and interstitial changes described previously are stable and chronic. A 6 to 9 month follow up is suggested. 33AP portable study. no acute findings. 34No pulmonary embolus within the main or proximal segmental pulmonary arterial vasculatute. COPD 5 mm and 11 mm nodule in the right lower lobe. Recommend initial follow up CT thorax in 3 months. 35Mild degenerative changes. 36The paranasal sinuses are grossly patent. If there is further clinical concern for sinusitis. CT may be performed for further evaluation. 37Right shoulder Mild glenohumeral and acromioclacicular joint space narrowing. No acute bony abnormality. 38Right breast summation density. Recommend routine bilateral screening mammograms in one year. 39PARTIAL - following delivery of 4th child 40Emphysematous change with noactive disease in the chest. 41for heavy vaginal bleeding 42IMPRESSION: 1. No acute bony abnormality is seen involving the lumbar spine. 2. A mild chronic superior endplate compression deformity of L1 is similar to previous. 3. Osteopenia and spondylotic changes as above. Vital Signs Most recent to oldest [Reference Range]: 1 Patient Weight 69.1 kg (09/09/23 9:17 AM) Heart Rate 71 bpm (09/09/23 9:17 AM) Respiratory Rate 22 br/min (09/09/23 9:17 AM) Blood Pressure 188/90mmHg (09/09/23 9:17 AM) Cuff Pulse Pressure 98 mmHg (09/09/23 9:17 AM) Social History Social History Type Response Tobacco Former smoker, Cigar ettes, 0.5 per day. 45 year(s). Started age 16 Years. Stopped age 61 Years. 1, 2, 3 Smoking Status Former Smoker, quit > 1 yr Sex Female 1Quit years ago, few years tobacco free 2Quit! 3still smokes once a month. Patient Care team information Care Team Personnel Name: DO Weller Amanda Position: Resident Member Role: Primary Care Provider Address: Address: [address] [place] [address] [place] Name: DO Moya Eric Position: Resident Member Role: Lifetime Relationship Address: Address: [address] [place] [address] [place] Name: Sergey Prado MD, Amalia Position: Resident Member Role: Lifetime Relationship Address: Address: [address] [place] [address] Care Team Related Persons Name: BENNETT ARMENTA Address: home No Address Provided
--- OUTSIDE RECORDS SUMMARY | 2023-09-23 09:42 | External Medical Summary | Summary of Care ---
Author Name Unknown Organization [facility] Address [address] [place] [address] Phone [phone] Care Team Providers Care Talent Solutions Manager Name Role Phone Vicente Sherwood MD Primary Care Provide r Reason for Visit * Reason Comments Esophageal Manometry Encounter Details Date Type Department Care Team (Late st Contact Info) Description 08/29/2023 11:15 AM EDT Nurse Only Gastroenterology, [place] [address] [place], [place] [phone] [place], Nurse Gastroenterology [address] [place], [place] [phone] Esophageal Manometry Allergies Active Allergy Reactions Criticality Noted Date Comments Salicylates Nausea/vomiting 06/02/2010 Prednisone 12/21/2012 Started shaking all over increased, her blood pressure, had to go to the ER documented as of this encounter (statuses as of 09/08/2023) Medications Medication Sig Dispensed Refills Start Date End Date Status SPIRIVA HANDIHALER 18 MCG IN CAPSIndications:COPD , moderate (HCC) Inhale contents of 1 capsule Daily. For inhaler only, do not swallow. 30 Cap 11 02/19/2013 Active OMEPRAZOLE 20 MG PO TBEC Take 1 Tablet by mouth daily as needed (heartburn). Active PROAIR HFA 108 (90 BASE) MCG/ACT inhaler USE 2 PUFFS BY MOUTH FOUR TIMES A DAY NEEDED 8.5 g 5 02/17/2015 Active Fexofenadine HCl 180 MG Oral Tablet (Marilee Allergy) as needed. 07/24/2020 Active Azithromycin 250 MG Oral Tablet (Zithromax) Take 1 Tablet by mouth. Three days a week 09/22/2022 Active Azelastine HCl 0.15 % Nasal Solution 1 Pope 2 times a day as needed. 11/12/2022 Active Budesonide 0.5 MG/2ML Inhalation Suspension (Pulmicort) 0.5 mg as needed. 10/15/2022 Active Escitalopram Oxalate 10 MG Oral Tablet (Lexapro) Take 1.5 Tablets by mouth in the morning. 06/08/2022 Active Vitamin D (Ergocalciferol) 1.25 MG (40383 UT) Oral Capsule (Drisdol) Take 1 Capsule by mouth once a week. 06/19/2023 Active Trelegy Ellipta 100-62.5-25 MCG/ACT Aerosol Powder Breath Activated Inhale 1 Puff by mouth in the morning. 02/15/2023 Active Ipratropium-Albutero l 0.5-2.5 (3) MG/3ML Inhalation Solution (Duoneb) 09/14/2022 Active Roflumilast 500 MCG Oral Tablet (Daliresp) Take 1 Tablet by mouth in the morning. Active Valsartan 80 MG Oral Tablet (Diovan) Take 1 Tablet by mouth in the morning. 03/04/2023 02/27/2024 Active documented as of this encounter (statuses as of 09/08/2023) Active Problems Problem Noted Date Diagnosed Date ADVANCE DIRECTIVE INFORMATION 02/22/2006 Overview: Booklet given to pt today. Dysplasia of cervix 01/13/2005 Overview: hyster 1991 for dysplasia ICD-10 update of inactive term OTHER SPECIFIED GASTRITIS; WITHOUT MENTION OF HE MORRHAGE 01/13/2005 documented as of this encounter (statuses as of 09/08/2023) Resolved Problems Problem Noted Date Diagnosed Date Resolved Date Tobacco use disorder 01/13/2005 013 documented as of this encounter (statuses as of 09/08/2023) Immunizations Name Administration Dates Next Due Hepatitis [...] of this encounter Progress Notes * Faheem Hunter, DO - 08/31/2023 3:22 PM EDT Images from the original note were not included. Patient: Masha Mcneil [id number] Gender: Female Physician: Dr. Faheem Hunter / Age: 06 1955 Internet Site Designer: Juju Levy RN Height: 5 ft 3 [...] evaluated 11 Proximal LES (from nares)(cm) 46.7 Clearwater Classification LES length(cm) 1.6 2.7-4.8 % failed [...] N/A above UES Mean peak pressure(mmHg) 3.8 Clearwater Classification Findings* EGJ: Normal Relaxation Median IRP (-5.9 mmHg) is less than 15 mmHg Esophageal body: Ineffective swallows, Not all swallows have failed peristalsis % ineffective swallows (82%) is greater than 50% Finding: Ineffective Esophageal Motility (IEM) * Findings are based on published Clearwater Classification scheme and are only intended to [...] history exists Lipid Panel 02/19/2018 02/19/2013, 12/18/2004 COVID-19 Vaccine ( - season) 2023 05/31/2023 DXA Scan 05/18/2033 05/18/2023, 05/18/2023 DTaP,Tdap,and Td Vaccines (3 - Td or Tdap) 05/24/2033 05/24/2023, 09/27/2008 Hepatitis B Completed 08/29/2012, 03/18, 03/01/2012 Influenza Vaccine (FLU shot) Completed , 12/28/2021, 02/10/2018 Pneumococcal Vaccine: 65+ Years Completed 12/30/2022, 04/22/2021, 02/10/2018, Additional history exists GARDASIL-HPV IMMUNIZATION SERIES Aged Out No longer [...] Primary documented in this encounter Care Teams Talent Solutions Manager Relationship Specialty Start Date End Date Vicente Sherwood MD [address] [place] [address] PCP - General Family Medicine 04/08/23 documented as of this encounter
[2023-09-23] MEDS: AZITHROMYCIN 500 MG in DEXTROSE 5% 250 ML IV SCH (16:58)
--- NOTE | 2023-09-23 18:11 | Hospitalist Progress Note ---
Date of Service September 23, 2023 Assessment & Plan (1) Acute exacerbation of chronic obstructive pulmonary disease (COPD): Plan: SOB, productive cough, and burning chest pain that began on 09/17 End-stage COPD; recently underwent testing for lung transplant at [facility] negative CXR negative for pneumonia Sputum culture ordered, pending Incentive spirometry, flutter valve Azithromycin 500 mg IV q24h; QTc okay Guaifenesin 1200 mg p.o. BID DuoNeb 3 mL Q6R Budesonide and formoterol Solu-Medrol 60 mg IV TID Continue home Roflumilast Home once symptoms have improved enough that she feels safehopefully over the next day or 2. (2) Acute on chronic respiratory failure with hypoxia: Plan: Continuous 4 L NC at baseline Breathing at rest now seems to be basically back to baseline. Dyspnea on exertion still worse (3) Lung transplant candidate: Plan: Still awaiting testing results from [facility] (4) Sleep apnea, obstructive: Plan: CPAP HS (5) Anxiety with depression: Plan: Continue escitalopram Plan home once her dyspnea on exertion has improved, DVT prophylaxis with Lovenox. Admission and Anticipated Discharge Date Admission Date: September 22, 2023 Subjective Dyspnea at rest seems to be back to baseline. Dyspnea on exertion still fairly severe. No other new complaints. Unfortunately her transplant doc left, and she does have a new doctor, but is not quite sure what that will mean for her status as a transplant candidate. Review of Systems Review of Systems: All systems reviewed & are unremarkable except as noted in HPI & below Physical Exam Physical Exam: In general she is awake and alert pleasant no distress. HEENT normocephalic atraumatic mucous membranes moist. Breathing unlabored no accessory muscle use good effort. Skin without rashes pallor or icterus. Neuro without focal deficits. Results & Data Results & Data Vital Signs (Past 12 Hours) Vital Signs Temp Pulse Pulse Resp BP Pulse Ox O2 Del Method 09/23/23 16:39 97.9 F 90 16 155/76 H 94 Nasal Cannula 09/23/23 12:51 88 18 96 Nasal Cannula 09/23/23 11:38 97.7 F 73 16 118/67 96 Nasal Cannula 09/23/23 09:00 Nasal Cannula 09/23/23 07:55 97.3 F L 74 16 134/70 93 Nasal Cannula 09/23/23 07:21 80 20 97 Nasal Cannula 09/23/23 07:04 68 O2 Flow Rate 09/23/23 16:39 4 09/23/23 12:51 4 09/23/23 11:38 4 09/23/23 09:00 4 09/23/23 07:55 2 09/23/23 07:21 4 09/23/23 07:04 PG Care Time/CCT Total # of Minutes Spent Total Time Spent with Patient: Total time spent is greater than 50% in coordination of care (as documented) at patient's floor/unit and/or counseling patient: Coding Level of Care Code 70714 SUB INP/OBS CARE 2/35MIN Diagnoses Acute exacerbation of chronic obstructive pulmonary disease (COPD) J44.1 Acute on chronic respiratory failure with hypoxia J96.21 Lung transplant candidate Z76.82 Sleep apnea, obstructive G47.33 Anxiety with depression F41.8
--- NOTE | 2023-09-23 19:22 | Electrocardiogram Report ---
Test Reason : Blood Pressure : / mmHG Vent. Rate : 091 BPM Atrial Rate : 091 BPM P-R Int : 156 ms QRS Dur : 076 ms QT Int : 362 ms P-R-T Axes : 074 072 073 degrees QTc Int : 445 ms Normal sinus rhythm Nonspecific ST abnormality Abnormal ECG When compared with ECG of 01-SEP-2023 11:22, No significant change was found Confirmed by Marcello Rodríguez ([id number]) on 09/23/2023 7:22:05 PM Referred By: REFERRED SELF Confirmed By:Marcello Rodríguez
[2023-09-24 07:07] LABS: Hemoglobin 11.3 g/dl (12.0-16.0); Mean Corpuscular Hemoglobin 29.2 pg (25.0-34.0); Mean Corpuscular Hgb Conc 33.2 g/dL (32.0-36.0); Mean Corpuscular Volume 87.9 fL (80.0-100.0); Mean Platelet Volume 9.9 fL (9.4-12.4); Platelet Count 291 K/uL (130-400); RDW Coefficient of Variation 13.6 % (11.5-14.5); RDW Standard Deviation 43.3 fL (36.4-46.3); Red Blood Count 3.87 M/uL (4.20-5.40)
[2023-09-24 07:40] LABS: Basophils # (auto) 0.01 K/uL (0.00-0.20); Basophils % (auto) 0.1 %; Immature Granulocytes % (auto) 0.7 %; Lymphocytes # (auto) 0.78 K/uL (1.20-3.40); Lymphocytes % (auto) 5.3 %; Monocytes # (auto) 0.28 K/uL (0.11-0.59); Monocytes % (auto) 1.9 %; Neutrophils # (auto) 13.43 K/uL (1.40-6.50); RBC Morphology Unremarkable
--- NOTE | 2023-09-24 07:51 | Hospitalist Progress Note ---
Date of Service September 24, 2023 Assessment & Plan (1) Acute exacerbation of chronic obstructive pulmonary disease (COPD): Plan: SOB, productive cough, and burning chest pain that began on 09/17 End-stage COPD; recently underwent testing for lung transplant at [facility] negative CXR negative for pneumonia Sputum culture ordered, pending Incentive spirometry, flutter valve Azithromycin 500 mg IV q24h; QTc okay Guaifenesin 1200 mg p.o. BID DuoNeb 3 mL Q6R Budesonide and formoterol Solu-Medrol 60 mg IV TID Continue home Roflumilast Added incentive spirometer 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 note: Instruct daughter to bring home CPAP machine for nighttime use Home once symptoms have improved enough that she feels safehopefully over the next day or 2. (2) Acute on chronic respiratory failure with hypoxia: Plan: Continuous 4 L NC at baseline Breathing at rest now seems to be basically back to baseline. Dyspnea on exertion still worse Added communication note: Instructed daughter to bring home CPAP for nighttime use. (3) Lung transplant candidate: Plan: Still awaiting testing results from [facility] (4) Sleep apnea, obstructive: Plan: CPAP HS (5) Anxiety with depression: Plan: Continue escitalopram Plan home once her dyspnea on exertion has improved, DVT prophylaxis with Lovenox. Admission and Anticipated Discharge Date Admission Date: September 22, 2023 Supervising Physician Co-Signing Physician Notes I personally examined the patient and verified all herzog points of history and exam, discussed case, and agree with decision making with Dr Burleson Feels about the same as yesterdaydyspnea at rest is under control, dyspnea with exertion is fairly bad. Vitals noted, in general she is awake and alert pleasant no distress. Lungs are markedly diminished but no rales rhonchi or wheezes no accessory muscle use no conversational dyspnea. Skin shows no rashes no pallor or icterus. Neuro without focal deficits. Acute on chronic hypoxic respiratory failure due to end-stage COPD with acute exacerbationanticipate slow improvement back to baseline. Continue current care. No signs of a need to adjust treatment, likely will just take time. Encouraged ambulation. Ongoing follow-up and evaluation for transplant. DVT prophylaxisLovenox otherwise as above Subjective Reports improved dyspnea at rest. Able to ambulate but continues to desaturate significantly when ambulating to the bathroom. Otherwise, no acute events overnight. Review of Systems Review of Systems: All systems reviewed & are unremarkable except as noted in HPI & below Physical Exam Physical Exam: General: No acute distress HEENT: PERRLA. Normal conjunctiva, anicteric sclera. Oropharynx normal. Respiratory: Normal respiratory effort, faint expiratory wheeze bilaterally. Cardiovascular: RRR without murmurs, gallops, or rubs. No pedal edema. GI: Soft abdomen with normal bowel sounds heard on auscultation. Nontender x4 quadrants Neuro: Alert and oriented x3. Results & Data Results & Data Vital Signs (Past 12 Hours) Vital Signs Temp Pulse Pulse Resp BP BP Pulse Ox 09/24/23 07:25 78 18 95 09/24/23 02:57 73 09/24/23 02:39 36.4 C L 78 18 131/64 96 09/24/23 00:50 88 16 98 09/23/23 23:04 36.6 C 86 16 130/72 97 09/23/23 20:07 O2 Del Method O2 Flow Rate 09/24/23 07:25 Nasal Cannula 4 09/24/23 02:57 09/24/23 02:39 Nasal Cannula 4 09/24/23 00:50 Nasal Cannula 4 09/23/23 23:04 Room Air 09/23/23 20:07 Nasal Cannula 4 Resident Activity Tracking Resident Involvement: Resident Care Provided Care Provided: Adult Hospital Medicine
[2023-09-24 08:31] LABS: BUN Creatinine Ratio 34.6 (10-20); Calcium 8.8 mg/dl (8.6-10.3); Creatinine Clr Calc Pharmacy 62.4 ml/min; Est GFR (African American) 86.5 ml/min; Est GFR (Non-African American) 74.6 ml/min; Potassium 4.4 mmol/L (3.5-5.1)
[2023-09-24] MEDS: ENOXAPARIN INJ 40 MG/0.4 ML SYR SQ SCH (09:15)
--- NOTE | 2023-09-24 11:50 | Billing Data ---
Date of Service September 24, 2023 Coding Level of Care Code 27383 SUB INP/OBS CARE
[2023-09-24] MEDS: LIDOCAINE 5% 1 PATCH TD SCH (20:13)
[2023-09-24] MEDS: ACETAMINOPHEN 500 MG TAB PO PRN (20:15)
[2023-09-25 09:19] LABS: Basophils # (auto) 0.01 K/uL (0.00-0.20); Basophils % (auto) 0.1 %; Hemoglobin 11.2 g/dl (12.0-16.0); Immature Granulocytes # (auto) 0.08 K/uL (0.01-0.20); Immature Granulocytes % (auto) 0.6 %; Lymphocytes # (auto) 1.05 K/uL (1.20-3.40); Lymphocytes % (auto) 8.4 %; Mean Corpuscular Hemoglobin 28.9 pg (25.0-34.0); Mean Corpuscular Hgb Conc 32.9 g/dL (32.0-36.0); Mean Corpuscular Volume 87.9 fL (80.0-100.0); Mean Platelet Volume 9.6 fL (9.4-12.4); Monocytes # (auto) 0.44 K/uL (0.11-0.59); Monocytes % (auto) 3.5 %; Neutrophils # (auto) 10.89 K/uL (1.40-6.50); Neutrophils % (auto) 87.4 %; Platelet Count 287 K/uL (130-400); RDW Coefficient of Variation 13.5 % (11.5-14.5); RDW Standard Deviation 43.4 fL (36.4-46.3); Red Blood Count 3.87 M/uL (4.20-5.40); White Blood Count 12.47 K/ul (4.8-10.8)
[2023-09-25 09:24] LABS: BUN Creatinine Ratio 33.3 (10-20); Calcium 8.5 mg/dl (8.6-10.3); Creatinine Clr Calc Pharmacy 66.4 ml/min; Est GFR (African American) 94.3 ml/min; Est GFR (Non-African American) 81.3 ml/min; Potassium 4.2 mmol/L (3.5-5.1)
--- NOTE | 2023-09-25 10:58 | Hospitalist Progress Note ---
Date of Service September 25, 2023 Assessment & Plan (1) Acute exacerbation of chronic obstructive pulmonary disease (COPD): Plan: SOB, productive cough, and burning chest pain that began on 09/17 End-stage COPD; recently underwent testing for lung transplant at [facility] [employer] negative CXR negative for pneumonia Sputum culture ordered, pending Incentive spirometry, flutter valve Azithromycin 500 mg IV q24h; QTc okay Guaifenesin 1200 mg p.o. BID DuoNeb 3 mL Q6R Budesonide and formoterol Solu-Medrol 60 mg IV TID Continue home Roflumilast Added incentive spirometer 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 note: Instruct daughter to bring home CPAP machine for nighttime use Home once symptoms have improved enough that she feels safehopefully over the next day or 2. (2) Acute on chronic respiratory failure with hypoxia: Plan: Continuous 4 L NC at baseline Breathing at rest now seems to be basically back to baseline. Dyspnea on exertion still worse Added communication note: Instructed daughter to bring home CPAP for nighttime use. (3) Lung transplant candidate: Plan: Still awaiting testing results from [facility] (4) Sleep apnea, obstructive: Plan: CPAP HS (5) Anxiety with depression: Plan: Continue escitalopram Plan home once her dyspnea on exertion has improved, DVT prophylaxis with Lovenox. Admission and Anticipated Discharge Date Admission Date: September 22, 2023 Supervising Physician Co-Signing Physician Notes I personally examined the patient and verified all herzog points of history and exam, discussed case, and agree with decision making with Dr Burleson dyspnea on exertion is starting to improve. Feels hopeful that she might feel well enough to go home tomorrow. Vitals noted, in general she is awake and alert pleasant no distress. Lungs are markedly diminished but no rales rhonchi or wheezes no accessory muscle use no conversational dyspnea. Skin shows no rashes no pallor or icterus. Neuro without focal deficits. Acute on chronic hypoxic respiratory failure due to end-stage COPD with acute exacerbationanticipate slow improvement back to baseline. Continue current care. No signs of a need to adjust treatment, likely will just take time. Ambulating better, dyspnea on exertion improving. Hopefully home tomorrow. Ongoing follow-up and evaluation for transplant after discharge. DVT prophylaxisLovenox otherwise as above Subjective Awake and eating breakfast in bed on arrival this morning. She reports that she feels better today than yesterday. She is concerned about a red rash on her c hest and wonders if it was caused by any medications she is on. Review of Systems Review of Systems: All systems reviewed & are unremarkable except as noted in HPI & below Physical Exam Physical Exam: General: No acute distress, speaking in complete sentences. HEENT: PERRLA. Normal conjunctiva, anicteric sclera. Oropharynx normal. Respiratory: Slight expiratory wheeze at right lung base. Lung wharton otherwise clear to auscultation. Cardiovascular: RRR without murmurs, gallops, or rubs. No pedal edema. Neuro: Alert and oriented x3. Results & Data Results & Data Vital Signs (Past 12 Hours) Vital Signs Temp Pulse Resp BP Pulse Ox O2 Del Method O2 Flow Rate 09/25/23 07:53 Nasal Cannula 4 09/25/23 07:31 61 18 97 Nasal Cannula 4 09/25/23 07:09 36.6 C 75 17 145/76 H 98 Nasal Cannula 4 09/25/23 03:59 95 Nasal Cannula 09/25/23 03:59 87 L Nasal Cannula 4 09/25/23 03:58 98 Nasal Cannula 4 09/25/23 00:48 71 18 98 Nasal Cannula 4 Resident Activity Tracking Resident Involvement: Resident Care Provided Care Provided: Adult Hospital Medicine
--- NOTE | 2023-09-25 18:17 | Billing Data ---
Date of Service September 25, 2023 Coding Level of Care Code 64626 SUB INP/OBS CARE
[2023-09-26 07:02] LABS: Creatinine Clr Calc Pharmacy 65.6 ml/min; Est GFR (African American) 92.8 ml/min
[2023-09-26] MEDS: predniSONE 50 MG TAB PO SCH (09:34)
--- NOTE | 2023-09-26 12:59 | Discharge Summary ---
Date of Service September 26, 2023 Admission HPI Per Admitting Provider Masha is a 67-year-old female with PMH of COPD, tobacco use, acute on chronic respiratory failure with hypoxia, ALHAJI, and acid reflux. She presented for SOB, productive cough, and burning chest pain x 2 days. Recent [place] hospitalization from 08/31 to 09/03 for similar. Patient reports she has severe, worsening TAPIA, as well as SOB at rest (she describes as a "chest heaviness" and "burning"). She often has to stop 2-3 times when walking to the bathroom. SOB is worse when she lies flat on her back. She has a productive cough, which she describes as deep. She did not take any of her regular morning medications today (only DuoNeb). No recent change in medications. Patient recently ran out of her azithromycin a couple days ago, and picked it up on Tuesday; otherwise she reports good compliance with her medications at home. Patient is on continuous supplemental oxygen 4 L NC at baseline. She has been turning up to 5L NC over the past 2 days. Recent testing in August to determine eligibility for lung transplant at [facility] (still waiting to hear back on results). No sick contacts. Patient reports that she has been sitting outside on her porch more often due to the nice weather, and believes spring allergies may be contributing. Patient is a former tobacco cigarette smoker but quit smoking 4 years ago. She denies any recent alcohol use. No history of DVT/PE, rashes, or tick bites. Patient is tachypneic at 25 RPM at time of admission; SpO2 stable on 4 LNC. ED course: DuoNeb 12 mL Solu-Medrol 40 mg IV ROS: Patient endorses BLUE, severe TAPIA, SOB at rest, chest pain (which patient describes as "burning/heaviness"), orthopnea, productive cough, chest palpitations when up walking around, diarrhea x 2 days (which patient attributes to azithromycin), Patient denies fever, chills, night-sweats, dizziness, lightheadedness, hemoptysis , nausea, vomiting, change in urinary/bowel habits, or numbness/tingling in the arms or legs. Admission Exam Per Admitting Provider General: Mild respiratory distress; pleasant affect; non-toxic appearing; cooperative HEENT: normocephalic, atraumatic; no scleral icterus; PERRLA; moist mucus membrane; vision and hearing grossly intact Neck: supple; no lymphadenopathy; trachea midline Skin: warm, dry without signs of tenting; no cyanosis; no rashes, bruising, le sions, or erythema noted CV: chest wall NTP; RRR; S1/S2 normal; no murmurs/rubs/gallops; pulses intact and symmetric at radial, DP, and PT Lungs: no acute respiratory distress; symmetrical chest wall expansion; diminished breath sounds across all lung wharton with mild basilar crackles bilaterally ABD: Soft, NTP; BS present; no rebound/guarding; no distention MSK: no tics or fasciculations; no edema noted in the LEs b/l, nonerythematous Neuro: A&Ox3; normal mood and affect; fluent speech; no focal deficits; sensation grossly intact in the LEs b/l Principal Diagnosis COPD exacerbation Discharge Exam Constitutional: well appearing, no acute distress HEENT: normocephalic, no conjunctival injection CV: regular rhythm, regular rate, no murmur, no LE edema Respiratory: Clear to auscultation bilaterally with diminished breath sounds throughout. No rhonchi, wheezes, or crackles. No increased work of breathing MSK: no gross deformities noted Skin: warm, dry, no rashes Neuro: alert, oriented, no FND noted Discharge Data Allergies Allergy/AdvReac Type Severity Reaction Status Date / Time aspirin AdvReac Intermediate GI SYMPTOMS Verified 09/01/23 15:29 Consultations 09/22/23 14:57 ED Decision to Admit Stat Hospital Course (1) Acute exacerbation of chronic obstructive pulmonary disease: Pt is a 68 yo female with PMH of end stage COPD (in lung transplant process) on 4 L O2 chronically, depression, and ALHAJI presenting d/t SOB. Acute exacerbation of chronic obstructive pulmonary disease - SOB, productive cough, and burning chest pain that began on 09/17 - hx of end-stage COPD; recently underwent testing for lung transplant at [facility] - [facility] negative; CXR negative for pneumonia; sputum culture showing strep pneumo - Incentive spirometry, flutter valve while hospitalized - Azithromycin 500 mg IV q24h (x3 doses); pt to continue her outpatient regimen of azithromycin 3x weekly - s/p guaifenesin 1200 mg p.o. BID, duoNeb 3 mL Q6R; discontinue upon discharge - s/p solu-medrol 60 mg IV TID; discharged with 60mg prednisone daily x3 days and tapering by 10 mg every 3 days - continue home Roflumilast - recommend f/u with PCP in 1 week Acute on chronic respiratory failure with hypoxia Continuous 4 L NC at baseline - breathing now close to baseline; still minimally tachycardic with exertion - pt ready for discharge and understands that close f/u with PCP is important Lung transplant candidate - follows with [facility] - pt requires f/u with i&c technician concerning outpatient vaginal pap smear 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 Discharge Plan Discharge Items Patient Disposition: Home - Self-Care Reason For Visit: SOB/DYSPNEA Discharge Diagnosis: COPD exacerbation Activity: Per Instructions section Non-emergency contact: Primary Care Provider and [employer] Call non-emergency contact if: you have any medication questions Follow-up/Referrals: Maya Weller DO [Resident] - 09/29/23 1:25 pm (hospital f/u 1 week ) Diet: Heart Healthy Addtl Attending Provider Instructions: You were admitted to the hospital for a COPD exacerbation. You were treated with steroids and breathing treatments which improved your breathing status. A discharge summary will be sent to your primary care physician to ensure continuity of care. Please bring this discharge summary with you to your next office appointment so that your provider can review it at that time. Medications: Your medication list has been reviewed and reconciled upon discharge to ensure accuracy and continuity of care. An updated list of all your medications is included with your hospital discharge paperwork. Please review this list closely and make note of any changes to your medications. - You should continue your home inhalers as prior to admission - You have been prescribed a steroid taper. You should take 60 mg daily for 3 days then decrease by 10mg every 3 days. The schedule would be as follows: Day 1-3: 60 mg Day 4-6: 50 mg Day 7-9: 40 mg Day 10-12: 30 mg Day 13-15: 20 mg Day 16-18: 10 mg Follow up appointments: - Make a follow up appointment with your PCP within the next week. It is very important that you follow up with them shortly after discharge from the hospital. - Keep all of your follow up appointments as already scheduled. If you cannot make an appointment, notify your provider - Please make a follow up appointment with the gynecology team for further evaluation of your previous HPV positive pap smear. Their number is [phone]. CONTACT YOUR PRIMARY CARE PROVIDER if you experience any of the following: - Difficulty following your treatment plan - Difficulty taking any of your medications CALL 911 OR GO TO THE EMERGENCY DEPARTMENT if you experience any of the following: - Sudden, severe abdominal pain or nausea/vomiting - Severe chest pain or chest pain that radiates to your jaw or arm - Sudden, severe shortness of breath or difficulty breathing Pending Studies at Discharge: No Stand-Alone Forms: My [facility] [place]. com. cn, Smoking Cessation Medications and DC Order Prescriptions: New prednisone 10 mg tablet 10 mg PO DAILY Qty: 63 0RF Rx Instructions: Take 60 mg daily for days 1-3 and then decrease by 10 mg every 3 days Continued albuterol sulfate 90 mcg/actuation HFA aerosol inhaler 2 puff inhalation Q4H PRN (Reason: shortness of breath or wheezing) Qty: 8.5 3RF Rx Instructions: Generic for ProAir- Patient can not use Ventolin Trelegy Ellipta 100-62.5-25 mcg blister with device 1 inh inhalation DAILY Qty: 28 7RF ipratropium-albuterol 0.5 mg-3 mg(2.5 mg base)/3 mL solution for nebulization 3 ml INH QID PRN (Reason: Shortness Of Breath) Qty: 360 5RF (DME) CPAP Machine Misc See Rx Instructions .MEDSUPPLY Qty: 1 0RF Rx Instructions: Auto-titration CPAP with pressure range between 5 cm H2O and 15 cm H2O with humidification. Lifetime need. (DME) CPAP Supplies Misc See Rx Instructions .MEDSUPPLY Qty: 1 0RF Rx Instructions: Refitting of the mask. G47.33 (DME) Portable Oxygen Misc See Rx Instructions .Route Qty: 1 0RF Rx Instructions: portable oxygen concentrator- 3LPM on exertion via n/c. SILVIA:99 ergocalciferol (vitamin D2) 1,250 mcg (50,000 unit) capsule 1,250 mcg PO WK Rx Instructions: MONDAYS escitalopram oxalate [Lexapro] 10 mg tablet 15 mg PO QAM fexofenadine 180 mg Tablet 180 mg PO DAILY Rx Instructions: otc. unable to verify with pharmacy azithromycin 250 mg tablet 250 mg PO 3XWK Hold Instructions: Resume on 09/09/23. Rx Instructions: TUE, TUE, & TUE. roflumilast 500 mcg tablet 500 mcg PO QAM valsartan 80 mg tablet 80 mg PO DAILY Discharge Orders: Discharge Order (Routine); Ordered 09/26/23 Ordered By: Rosalinda Buckley Admission Data Admit Date/Time: 09/22/23 16:09 Attending Provider: German Justin Admit Provider: Kip Penny Primary Care Provider: Maya Weller Other Providers: Kip Penny Other Interventions: Discharge Summary Assessment (RN) Last Done: 09/26/23 12:57 Supervising Physician Co-Signing Physician Notes I also saw the patient and confirmed herzog portions of the clinical history and physical examination. I agree with the impression and plan as noted in the resident discharge summary. Upon exam this morning, the patient is ambulatory in her room; she is on oxygen via nasal cannula at her home level. She feels that she is nearing her baseline. Lungs with increased air movement; no wheezing appreciated upon my exam. Daughter who had been away has returned home. The patient lives with her daughter so she will have good support postdischarge. Will discharge her on a long oral prednisone taper. Will see her in the office in 1 to 2 weeks Resident Activity Tracking Resident Involvement: Resident Care Provided Care Provided: Adult Hospital Medicine
== END 2023-09-26 13:45 | disposition home or self-care (01) | DRG 190 ==
LOC: ED 11:52 → SUATTDRO 16:09 → 2N 16:09 → 3N 09-24 18:58

== ENCOUNTER 2023-11-01 12:01 | Inpatient (IN) ==
--- NOTE | 2023-11-01 12:18 | Emergency Department Note ---
Impression & Plan Acute exacerbation of chronic obstructive pulmonary disease (COPD), Acute on chronic respiratory failure with hypoxia ED Provider Note NAME: AVIVA MIMS AGE: 68 SEX: F : 1955 ARRIVES VIA: Walk-In INFORMANT: Patient, ED PROVIDER(S): Neto Kimball MD CHIEF COMPLAINT: SOB MEDICAL DECISION MAKING: Patient presents due to concern for shortness of breath. IV was established and blood work was obtained. Patient was ordered hour-long DuoNeb treatment 2 g magnesium to be given over an hour and 125 mg IV Solu-Medrol. White count is 7. Hemoglobin 11.6 virtually normal. Platelet count is unremarkable. The patient's kidney function is unremarkable. Very mild hypercarbia with the VBG pH 7.34. Electrolytes grossly unremarkable. Troponin negative. Urinalysis negative and the patient's bio fire negative. Patient's chest x-ray without evidence of obvious pneumonia. Upon reassessment the patient felt slightly improved but likely not will like to go home. Hour-long was ordered and I did speak with the inpatient hospital service Dr. New and the patient was admitted to the medicine service. Discussion w/ other healthcare providers: Dr. New inpatient medicine service Prior /Outside records reviewed: I reviewed a discharge summary from Dr. Memo Forte from September 25. Patient was admitted at that time due to concern for COPD exacerbation. Differential diagnosis: Reactive airway disease, pneumonia, pneumothorax, COPD, CHF, ACS, pulmonary embolism, musculoskeletal, GERD as well as other pathologies were considered. Diagnostics, as interpreted by me: ECG: Normal sinus rhythm, rate of 80, normal intervals, normal axis no ST elevations or TWI. No significant change for comparison September 22, 2023 Cardiac monitoring: An order was placed for continuous cardiac monitoring. The monitor shows a rate of 82 with sinus rhythm. Patient was placed on pulse oximetry Medical decision rules: None Imaging studies: I informally interpreted the patient's chest x-ray does not show obvious pneumonia or pneumothorax with formal report to follow. HPI: Patient presents due to concern for worsening shortness of breath that began about 4 days ago and has gotten progressively worse. Patient with a known history of COPD and feels as though she cannot breathe very well. Patient is a former smoker was smoking about 4 to 5 years ago. Patient does have occasional productive cough which is not atypical for her. Patient has not noticed any leg swelling or calf pain no history of DVT or PE in the patient denies any recent surgeries procedures hospitalizations or prolonged car plane travel. Patient has tried a rescue inhaler and has been taking her regularly scheduled nebulizer treatments in addition to inhalers. Patient denies any falls or trauma. Patient does wear 4 L at all times. Patient states that she does feels that she has pain at the bases of both lungs. Patient states that she has had that kind of pain before but it is more pronounced. PAST MEDICAL HISTORY: See Below PAST SURGICAL HISTORY: See Below SOCIAL HISTORY: See Below HOME MEDICATIONS: See Below ALLERGIES: See Below VITALS: See Below PHYSICAL EXAMINATION: GENERAL: Mild increased work of breathing. Nasal cannula in place. EYE EXAM: Normal conjunctiva. PERRL, no anisocoria and EOM's grossly intact w/o pain. OROPHARYNX: Moist mucus membranes, grossly normal dentition. NECK: Trachea midline, no stridor. Supple, no nuchal rigidity, no adenopathy, non-tender. No signs of meningismus. FROM of the neck with good chin to chest and neck extension. LUNGS: Decreased air movement throughout with slight wheeze in the right upper chest. Mild tachypnea. HEART: NSR, no MRG. ABDOMEN: Abdomen soft, non-tender, no masses, no rebound or guarding. BACK: No CVA TTP. SKIN: No rashes and no bruising. UPPER EXTREMITIES: Upper extremities are grossly normal. LOWER EXTREMITIES: Grossly normal, no edema. NEURO EXAM: A&O x3, cranial nerves II-XII grossly intact, normal speech, moves all 4 extremities. Past Med/Surg History Problem List (Updated 11/01/23 @ 19:13 by Neto Kimball MD) Shortness of breath (Acute) Acute exacerbation of chronic obstructive pulmonary disease (Acute) Hypoxia (Acute) Failure of outpatient treatment (Acute) Acute exacerbation of chronic obstructive pulmonary disease (COPD) (Acute) Acute and chronic respiratory failure (Acute) Acute pericardial effusion (Acute) Acute exacerbation of chronic obstructive pulmonary disease (Acute) Lower back pain Goals of care, counseling/discussion Palliative care encounter Pneumonia (Acute) Acute respiratory failure with hypoxia and hypercapnia Failure of outpatient treatment (Acute) Paroxysmal atrial tachycardia Leukocytosis Acute exacerbation of chronic obstructive pulmonary disease (Acute) SOB (shortness of breath) (Acute) Acid reflux Influenza A (Acute) Acute respiratory failure with hypercapnia COVID-19 (Acute) Chest pain (Acute) Ex-smoker COPD (chronic obstructive pulmonary disease) (Acute) Chronic respiratory failure with hypoxia (Acute) Dyspnea Cough Fever Acute on chronic respiratory failure with hypoxia (Acute) Dysfunction of both eustachian tubes Acute respiratory failure with hypoxia Paroxysmal atrial tachycardia Acute dyspnea (Acute) History of tobacco use Lung transplant candidate Sacroiliitis Multiple pulmonary nodules no biopsies, monitored COPD exacerbation (Acute) [facility] 03/2023 Chronic respiratory failure SOB (shortness of breath) (Acute) "all the time" Anxiety with depression Chronic obstructive pulmonary disease with hypoxia 3L O2 wv, [facility] Pulm Dr. Dhillon Sleep apnea, obstructive (Chronic) CPAP Medical History Family history of paroxysmal atrial tachycardia History of COVID-19 (~2021) x3 sob, cough, fatigue; resolved History of recent pneumonia (~09/2022) Surgical History Hx of cardiac catheterization (~2022) Had in [place] as part of work up for [facility] to get on Lung Transplant list, no stents Hx of colonoscopy with polypectomy Hx of bilateral cataract extraction History of partial hysterectomy History of carpal tunnel surgery of right wrist History of broken collarbone sx to repair History of tooth extraction all teeth H/O partial thyroidectomy (~1989) d/t hemorrhaging?--unknown cause, no meds Family History Mother , from ovarian cancer Cancer Ovarian Sister Cancer Ovarian Father COPD (chronic obstructive pulmonary disease) Other No family history of adverse response to anesthesia Social History Smoking Status: Former smoker Tobacco Type: Cigarettes Age Started Using Tobacco: 17; Age Quit Using Tobacco: 64; packs per day: 1; Cigarettes Per Day: Less than a packet; Smoking End Date: 5 years ago; Second Hand Exposure: No; Do You Dip or Chew Tobacco: No; Tobacco Cessation Education Requested by Patient: No Hx Alcohol Use: No Hx Substance Use: No Preferred Language: Kyrgyz 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 Ability: Effective Pickle Processor 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 Beliefs That Will Affect Care: None marital status: Current Living Situation: Family Current Living Situation Comment: Lives with Daughter Other Information That Helps Us Care for You: No Feels Safe at Home: Yes Safety Concerns: Feels Safe At This Time Assistive Devices: Denture - Upper, Denture - Lower, Oxygen - Continuous and Wheelchair Assistive Devices Comment: Has a portable oxygen Allergies Allergies Allergy/AdvReac Type Severity Reaction Status Date / Time aspirin AdvReac Intermediate GI SYMPTOMS Verified 11/01/23 15:36 Home Meds Home Medications Medication Instructions Recorded Confirmed escitalopram oxalate 10 mg tablet 15 mg PO QAM 08/05/22 11/01/23 (Lexapro) ergocalciferol (vitamin D2) 1,250 1,250 mcg PO WK 03/26/23 11/01/23 mcg (50,000 unit) capsule azithromycin 250 mg tablet 250 mg PO 3XWK 07/06/23 11/01/23 roflumilast 500 mcg tablet 500 mcg PO QAM 07/06/23 11/01/23 fexofenadine 180 mg tablet 180 mg PO DAILY 09/01/23 11/01/23 valsartan 80 mg tablet 80 mg PO DAILY 09/22/23 11/01/23 Previous Rx's Medication Instructions Recorded CPAP Machine #1 ea 12/06/19 CPAP Supplies #1 ea 05/11/21 Portable Oxygen #1 ea 09/15/22 fluticasone fur. 100 mcg-umeclid 1 inh inhalation DAILY #28 ea 06/08/23 62.5 mcg-vilant 25 mcg inhalat.powder (Trelegy Ellipta) ipratropium 0.5 mg-albuterol 3 mg 3 ml inhalation QID PRN Shortness 06/08/23 (2.5 mg base)/3 mL nebulization Of Breath #360 mL soln albuterol sulfate 90 mcg/actuation 2 puff inhalation Q4H PRN 06/21/23 aerosol inhaler shortness of breath or wheezing #8.5 grams Results & Data (ED) Vital Signs Vital Signs - 24 hr 11/01/23 12:06 11/01/23 12:20 11/01/23 12:45 Temperature 36.6 C Temperature Source Oral Pulse Rate 88 Pulse Rate [Apical] Pulse Rhythm [Apical] Pulse Strength [Apical] Respiratory Rate 20 Respiratory Effort / Characteristics Respiratory Pattern Blood Pressure 157/89 H Blood Pressure [Right Arm] Blood Pressure Mean 111 Blood Pressure Mean [Right Arm] Pulse Oximetry 95 96 97 Oxygen Delivery Method Nasal Cannula Nasal Cannula Nasal Cannula Oxygen Flow Rate 4 4 5 Sepsis Recent Fever Within 48 Hours No Sepsis New/Unexplained Change in Mental Status N/A Sepsis Action Taken by Nursing No Action Required 11/01/23 12:45 11/01/23 12:54 11/01/23 13:14 Temperature Temperature Source Pulse Rate 71 Pulse Rate [Apical] 76 71 Pulse Rhythm [Apical] Regular Pulse Strength [Apical] Normal Respiratory Rate 22 25 H Respiratory Effort / Characteristics Spontaneous Spontaneous SOB on Exertion Respiratory Pattern Regular Blood Pressure Blood Pressure [Right Arm] 138/92 Blood Pressure Mean Blood Pressure Mean [Right Arm] 107 Pulse Oximetry 97 99 Oxygen Delivery Method Nasal Cannula Nasal Cannula Oxygen Flow Rate 5 5 Sepsis Recent Fever Within 48 Hours Sepsis New/Unexplained Change in Mental Status Sepsis Action Taken by Nursing 11/01/23 14:57 Temperature Temperature Source Pulse Rate Pulse Rate [Apical] 89 Pulse Rhythm [Apical] Pulse Strength [Apical] Respiratory Rate 20 Respiratory Effort / Characteristics Non-Labored Spontaneous Respiratory Pattern Blood Pressure Blood Pressure [Right Arm] Blood Pressure Mean Blood Pressure Mean [Right Arm] Pulse Oximetry 98 Oxygen Delivery Method Nasal Cannula Oxygen Flow Rate 4 Sepsis Recent Fever Within 48 Hours Sepsis New/Unexplained Change in Mental Status Sepsis Action Taken by Usp Medications Current Medication List: was personally reviewed by me Laboratory Data Attestation: I reviewed the patient's lab results. 11/01/23 12:40 11/01/23 12:40 Lab Results 11/01/23 11/01/23 Range/Units 12:40 14:28 WBC 7.17 (4.8-10.8) K/ul RBC 4.07 L (4.20-5.40) M/uL Hgb 11.6 L (12.0-16.0) g/dl Hct 35.0 L (37.0-47.0) % MCV 86.0 (80.0-100.0) fL MCH 28.5 (25.0-34.0) pg MCHC 33.1 (32.0-36.0) g/dL RDW Std Deviation 40.7 (36.4-46.3) fL RDW Coeff of Audrey 13.1 (11.5-14.5) % Plt Count 286 (130-400) K/uL MPV 9.4 (9.4-12.4) fL Immature Gran % (Auto) 0.4 % Neut % (Auto) 64.1 % Lymph % (Auto) 25.2 % Emmons % (Auto) 7.8 % Eos % (Auto) 1.8 % Baso % (Auto) 0.7 % Neut # (Auto) 4.59 (1.40-6.50) K/uL Lymph # (Auto) 1.81 (1.20-3.40) K/uL Emmons # (Auto) 0.56 (0.11-0.59) K/uL Eos # (Auto) 0.13 (0.00-0.50) K/uL Baso # (Auto) 0.05 (0.00-0.20) K/uL Immature Gran # (Auto) 0.03 (0.01-0.20) K/uL PT 10.0 (9.0-12.0) Seconds INR 0.9 (0.9-1.1) APTT 25 (21-31) Seconds PTT Ratio 0.9 VBG pH 7.34 L (7.36-7.41) VBG pCO2 52 H (38-50) mmHg VBG pO2 48 mmHg VBG HCO3 28 mmol/L VBG O2 Saturation 78.6 % VBG Base Excess 1.4 mEq/L Sodium 140 (136-145) mmol/L Potassium 3.9 (3.5-5.1) mmol/L Chloride 106 (98-107) mmol/L Carbon Dioxide 27 (21-32) mmol/L Anion Gap 7 (3-11) BUN 12 (6-23) mg/dl Creatinine 0.89 (0.6-1.2) mg/dl Est Cr Clr Drug Dosing 57.0 ml/min Est GFR ( Amer) 76.6 ml/min Est GFR (Non-Af Amer) 66.1 ml/min BUN/Creatinine Ratio 13.5 (10-20) Glucose 114 H (70-99(Fasting)) mg/dl Calcium 8.8 (8.6-10.3) mg/dl Magnesium 1.9 (1.7-2.4) mg/dl Total Bilirubin 0.4 (0.2-1.0) mg/dl AST 34 (13-39) U/L ALT 29 (7-52) U/L Alkaline Phosphatase 105 H (34-104) U/L Troponin I High Sens 3.5 (0-14) pg/ml Total Protein 6.6 (6.0-8.3) gm/dl Albumin 4.0 (3.4-5.0) gm/dl Globulin 2.6 (2.5-4.0) gm/dl Albumin/Globulin Ratio 1.5 (0.9-2) Urine Color Yellow Urine Appearance Clear (Clear) Urine pH 6.5 (4.5-7.5) Ur Specific Thorp 1.007 (1.000-1.030) Urine Protein Negative (Negative) Urine Glucose (UA) Negative (Negative) Urine Ketones Negative (Negative) Urine Blood Negative (Negative) Urine Nitrite Negative (Negative) Urine Bilirubin Negative (Negative) Urine Urobilinogen Negative (Negative) Ur Leukocyte Esterase Negative (Negative) Adenovirus (PCR) Not Detected (NotDetected) B. pertussis DNA (PCR) Not Detected (NotDetected) B.parapertussis DNA PCR Not Detected (NotDetected) C. pneumoniae DNA (PCR) Not Detected (NotDetected) Coronavirus OC43 (PCR) Not Detected (NotDetected) Coronavirus HKU1 (PCR) Not Detected (NotDetected) Coronavirus 229E (PCR) Not Detected (NotDetected) SARS-CoV-2 (PCR) Not Detected (NotDetected) Coronavirus NL63 (PCR) Not Detected (NotDetected) Human Metapneumovir PCR Not Detected (NotDetected) Influenza Type A (PCR) Not Detected (NotDetected) Influenza Type B (PCR) Not Detected (NotDetected) M. pneumoniae (PCR) Not Detected (NotDetected) Parainfluenza 1 (PCR) Not Detected (NotDetected) Parainfluenza 2 (PCR) Not Detected (NotDetected) Parainfluenza 3 (PCR) Not Detected (NotDetected) Parainfluenza 4 (PCR) Not Detected (NotDetected) RSV (PCR) Not Detected (NotDetected) Entero/Rhino (PCR) Not Detected (NotDetected) Administered Medications Discontinued Medications Albuterol (Albut/Ipratrop 3mg/0.5mg Neb 3 Ml Vial) 12 ml INH ONE STA Stop: 11/01/23 12:25 Last Admin: 11/01/23 12:54 Dose: 12 ml Documented By: EMILEE Albuterol (Albut/Ipratrop 3mg/0.5mg Neb 3 Ml Vial) 12 ml NEB ONE ONE; Protocol Stop: 11/01/23 14:31 Last Admin: 11/01/23 14:56 Dose: 12 ml Documented By: CECE Doxycycline Hyclate (Doxycycline Hyclate 100 Mg Cap) 100 mg PO NOW STA Stop: 11/01/23 15:37 Last Admin: 11/01/23 15:49 Dose: 100 mg Documented By: MYA Magnesium Sulfate/Dextrose (Magnesium Sulfate / D5w) 1 gm in 100 mls @ 200 mls/hr IV Q30M QIAN Stop: 11/01/23 13:24 Last Infusion: 11/01/23 14:57 Dose: Infused Documented By: Admin: 11/01/23 14:18 Dose: 200 mls/hr Documented By: Infusion: 11/01/23 13:04 Dose: Infused Documented By: Admin: 11/01/23 12:34 Dose: 200 mls/hr Documented By: DEBBIE Sodium Chloride (Nss) 500 mls @ 999 mls/hr IV .Q31M STA Stop: 11/01/23 12:54 Last Infusion: 11/01/23 13:40 Dose: Infused Documented By: Admin: 11/01/23 12:34 Dose: 999 mls/hr Documented By: DEBBIE Methylprednisolone (Methylprednisolone 125 Mg/2 Ml Vial) 125 mg IV NOW STA Stop: 11/01/23 12:25 Last Admin: 11/01/23 12:34 Dose: 125 mg Documented By: DEBBIE Imaging Data Radiologist's Impression: Chest X-Ray 11/01/23 12:24 XR chest 1V portable CLINICAL HISTORY: Dyspnea TECHNIQUE: Single frontal radiograph of the chest was obtained. Comparison: Comparison is made to chest radiograph 09/22/[address] chest 10/13/2023 FINDINGS: No lines and tubes are seen. The cardiomediastinal silhouette is normal. Emphysema is seen without airspace opacities. No evidence of pleural effusion or pneumothorax. IMPRESSION: No acute abnormalities and in particular no radiographic evidence of pneumonia. ACT 112: Negative or not required by law. Electronically signed by: Darrell Sanchez M.D. 11/01/2023 12:53 PM Discharge Plan Visit Data Chief Complaint: Shortness of Breath/Dyspnea Stated Complaint: SOB, PAIN IN LUNGS ED Provider: Neto Kimball Discharge Problem: Acute exacerbation of chronic obstructive pulmonary disease (COPD), Acute on chronic respiratory failure with hypoxia Patient Disposition: Admitted As Inpatient
[2023-11-01] MEDS: SODIUM CHLORIDE 0.9% 500 ML IV STA (12:34)
[2023-11-01] MEDS: MAGNESIUM SULFATE / D5W 1 GM/100 ML BAG IV SCH (12:34)
[2023-11-01] MEDS: methylPREDNISolone 125 MG/2 ML VIAL IV STA (12:34)
[2023-11-01] MEDS: ALBUT/IPRATROP 3MG/0.5MG NEB 3 ML VIAL INH STA (12:54)
--- NOTE | 2023-11-01 12:54 | XRay Report ---
XR chest 1V portable CLINICAL HISTORY: Dyspnea TECHNIQUE: Single frontal radiograph of the chest was obtained. Comparison: Comparison is made to chest radiograph 09/22/[address] chest 10/13/2023 FINDINGS: No lines and tubes are seen. The cardiomediastinal silhouette is normal. Emphysema is seen without ai rspace opacities. No evidence of pleural effusion or pneumothorax. IMPRESSION: No acute abnormalities and in particular no radiographic evidence of pneumonia. ACT 112: Negative or not required by law. Electronically signed by: Darrell Sanchez M.D. 11/01/2023 12:53 PM
[2023-11-01 13:04] LABS: Base Excess VBG 1.4 mEq/L; HCO3 VBG 28 mmol/L; Oxygen Saturation VBG 78.6 %; PCO2 VBG 52 mmHg (38-50); PO2 VBG 48 mmHg; pH VBG 7.34 (7.36-7.41)
[2023-11-01 13:10] LABS: Basophils # (auto) 0.05 K/uL (0.00-0.20); Basophils % (auto) 0.7 %; Eosinophils # (auto) 0.13 K/uL (0.00-0.50); Eosinophils % (auto) 1.8 %; Hemoglobin 11.6 g/dl (12.0-16.0); Immature Granulocytes # (auto) 0.03 K/uL (0.01-0.20); Immature Granulocytes % (auto) 0.4 %; Lymphocytes # (auto) 1.81 K/uL (1.20-3.40); Lymphocytes % (auto) 25.2 %; Mean Corpuscular Hemoglobin 28.5 pg (25.0-34.0); Mean Corpuscular Hgb Conc 33.1 g/dL (32.0-36.0); Mean Platelet Volume 9.4 fL (9.4-12.4); Monocytes # (auto) 0.56 K/uL (0.11-0.59); Monocytes % (auto) 7.8 %; Neutrophils # (auto) 4.59 K/uL (1.40-6.50); Neutrophils % (auto) 64.1 %; Platelet Count 286 K/uL (130-400); RDW Coefficient of Variation 13.1 % (11.5-14.5); RDW Standard Deviation 40.7 fL (36.4-46.3); Red Blood Count 4.07 M/uL (4.20-5.40); White Blood Count 7.17 K/ul (4.8-10.8)
[2023-11-01 13:29] LABS: Albumin Globulin Ratio 1.5 (0.9-2); BUN Creatinine Ratio 13.5 (10-20); Bilirubin,Total 0.4 mg/dl (0.2-1.0); Calcium 8.8 mg/dl (8.6-10.3); Est GFR (African American) 76.6 ml/min; Est GFR (Non-African American) 66.1 ml/min; Globulin 2.6 gm/dl (2.5-4.0); Magnesium 1.9 mg/dl (1.7-2.4); Potassium 3.9 mmol/L (3.5-5.1); Total Protein 6.6 gm/dl (6.0-8.3)
[2023-11-01 13:34] LABS: Troponin I High Sensitivity 3.5 pg/ml (0-14)
[2023-11-01 13:38] LABS: INR 0.9 (0.9-1.1); Partial Thromboplastin Ratio 0.9; Partial Thromboplastin Time 25 Seconds (21-31)
--- NOTE | 2023-11-01 13:38 | Electrocardiogram Report ---
Test Reason : Blood Pressure : / mmHG Vent. Rate : 080 BPM Atrial Rate : 080 BPM P-R Int : 144 ms QRS Dur : 076 ms QT Int : 380 ms P-R-T Axes : 086 073 078 degrees QTc Int : 438 ms Normal sinus rhythm Normal ECG When compared with ECG of 22-SEP-2023 12:06, No significant change was found Confirmed by Otf Banuelos ([id number]) on 11/01/2023 1:37:19 PM Referred By: Confirmed By:Otf Banuelos
[2023-11-01 13:59] LABS: Adenovirus PCR Not Detected (NotDetected); Bordetella parapertussis PCR Not Detected (NotDetected); Bordetella pertussis PCR Not Detected (NotDetected); Chlamydia pneumoniae PCR Not Detected (NotDetected); Coronavirus 229E PCR Not Detected (NotDetected); Coronavirus CoV-2 (COVID19)PCR Not Detected (NotDetected); Coronavirus HKU1 PCR Not Detected (NotDetected); Coronavirus NL63 PCR Not Detected (NotDetected); Coronavirus OC43PCR Not Detected (NotDetected); Human Metapneumovirus PCR Not Detected (NotDetected); Influenza A PCR Not Detected (NotDetected); Influenza B PCR Not Detected (NotDetected); Mycoplasma pneumoniae PCR Not Detected (NotDetected); Parainfluenza Virus 1 PCR Not Detected (NotDetected); Parainfluenza Virus 2 PCR Not Detected (NotDetected); Parainfluenza Virus 3 PCR Not Detected (NotDetected); Parainfluenza Virus 4 PCR Not Detected (NotDetected); Respiratory Syncytial VirusPCR Not Detected (NotDetected); Rhinovirus/Enterovirus PCR Not Detected (NotDetected)
[2023-11-01] MEDS: ALBUT/IPRATROP 3MG/0.5MG NEB 3 ML VIAL NEB ONE (14:56)
[2023-11-01 15:04] LABS: Appearance Urine Clear (Clear); Bilirubin Urine Negative (Negative); Blood Urine Negative (Negative); Color Urine Yellow; Glucose Urine UA Negative (Negative); Ketones Urine Negative (Negative); Leukocyte Esterase Urine Negative (Negative); Nitrite Urine Negative (Negative); Protein Urine Negative (Negative); Specific Gravity Urine 1.007 (1.000-1.030); Urobilinogen Urine Negative (Negative); pH Urine 6.5 (4.5-7.5)
--- NOTE | 2023-11-01 15:17 | History & Physical Report ---
Date of Service November 01, 2023 Assessment & Plan (1) Acute exacerbation of chronic obstructive pulmonary disease: Plan: Formoterol/budesonide Nebs BID Duonebs q6h Solu-medrol 125mg IV given in ER, continue 40mg TID Switch azithromycin for doxycycline (2) Hypoxia: Plan: Chronic at baseline 4LPM O2 Aim O2 sats 88-92% (3) Sleep apnea, obstructive: Plan: CPAP HS Plan Chronic stable conditions: Anxiety with depression - continue Lexapro VTE Prophylaxis - Lovenox 40mg SQ daily Diet - regular Disposition - observation to med/surg Admission and Anticipated Discharge Date Admission Date: November 01, 2023 History of Present Illness Chief Complaint: Shortness of breath Primary Care Provider: JAXON Valles Masha Mcneil is a 68-year-old female well-known to this service with COPD and repeated exacerbations who presents to the ER with shortness of breath for the past 4 days getting progressively worse. She is on chronic oxygen at 4 L/min O2 at baseline. She feels this is similar to prior COPD exacerbations although in addition has some reproducible pain on her lower bilateral sides. She no longer smokes and is unsure what triggered this episode. She has also noticed burning sensation of her urine over the last day. No CVA tenderness, fever, chills, palpitations, leg swelling. Allergies Allergy/AdvReac Type Severity Reaction Status Date / Time aspirin AdvReac Intermediate GI SYMPTOMS Verified 11/01/23 15:36 Home Medications Medication Instructions Recorded Confirmed Type CPAP Machine #1 ea 12/06/19 09/09/23 Rx CPAP Supplies #1 ea 05/11/21 09/09/23 Rx escitalopram oxalate 10 mg tablet 15 mg PO QAM 08/05/22 11/01/23 History (Lexapro) Portable Oxygen #1 ea 09/15/22 09/09/23 Rx ergocalciferol (vitamin D2) 1,250 1,250 mcg PO WK 03/26/23 11/01/23 History mcg (50,000 unit) capsule fluticasone fur. 100 mcg-umeclid 1 inh inhalation DAILY #28 ea 06/08/23 11/01/23 Rx 62.5 mcg-vilant 25 mcg inhalat.powder (Trelegy Ellipta) ipratropium 0.5 mg-albuterol 3 mg 3 ml inhalation QID PRN Shortness 06/08/23 11/01/23 Rx (2.5 mg base)/3 mL nebulization Of Breath #360 mL soln albuterol sulfate 90 mcg/actuation 2 puff inhalation Q4H PRN 06/21/23 11/01/23 Rx aerosol inhaler shortness of breath or wheezing #8.5 grams azithromycin 250 mg tablet 250 mg PO 3XWK 07/06/23 11/01/23 History roflumilast 500 mcg tablet 500 mcg PO QAM 07/06/23 11/01/23 History fexofenadine 180 mg tablet 180 mg PO DAILY 09/01/23 11/01/23 History valsartan 80 mg tablet 80 mg PO DAILY 09/22/23 11/01/23 History Past Med/Surg History Problem List (Updated 11/01/23 @ 19:13 by Neto Kimball MD) Shortness of breath (Acute) Acute exacerbation of chronic obstructive pulmonary disease (Acute) Hypoxia (Acute) Failure of outpatient treatment (Acute) Acute exacerbation of chronic obstructive pulmonary disease (COPD) (Acute) Acute and chronic respiratory failure (Acute) Acute pericardial effusion (Acute) Acute exacerbation of chronic obstructive pulmonary disease (Acute) Lower back pain Goals of care, counseling/discussion Palliative care encounter Pneumonia (Acute) Acute respiratory failure with hypoxia and hypercapnia Failure of outpatient treatment (Acute) Paroxysmal atrial tachycardia Leukocytosis Acute exacerbation of chronic obstructive pulmonary disease (Acute) SOB (shortness of breath) (Acute) Acid reflux Influenza A (Acute) Acute respiratory failure with hypercapnia COVID-19 (Acute) Chest pain (Acute) Ex-smoker COPD (chronic obstructive pulmonary disease) (Acute) Chronic respiratory failure with hypoxia (Acute) Dyspnea Cough Fever Acute on chronic respiratory failure with hypoxia (Acute) Dysfunction of both eustachian tubes Acute respiratory failure with hypoxia Paroxysmal atrial tachycardia Acute dyspnea (Acute) History of tobacco use Lung transplant candidate Sacroiliitis Multiple pulmonary nodules no biopsies, monitored COPD exacerbation (Acute) [facility] 03/2023 Chronic respiratory failure SOB (shortness of breath) (Acute) "all the time" Anxiety with depression Chronic obstructive pulmonary disease with hypoxia 3L O2 co, [facility] Pulm Dr. Dhillon Sleep apnea, obstructive (Chronic) CPAP Medical History Family history of paroxysmal atrial tachycardia History of COVID-19 (~2021) x3 sob, cough, fatigue; resolved History of recent pneumonia (~09/2022) Surgical History Hx of cardiac catheterization (~2022) Had in [place] as part of work up for [place] to get on Lung Transplant list, no stents Hx of colonoscopy with polypectomy Hx of bilateral cataract extraction History of partial hysterectomy History of carpal tunnel surgery of right wrist History of broken collarbone sx to repair History of tooth extraction all teeth H/O partial thyroidectomy (~1989) d/t hemorrhaging?--unknown cause, no meds Family History Mother , from ovarian cancer Cancer Ovarian Sister Cancer Ovarian Father COPD (chronic obstructive pulmonary disease) Other No family history of adverse response to anesthesia Social History Smoking Status: Former smoker Tobacco Type: Cigarettes Age Started Using Tobacco: 17; Age Quit Using Tobacco: 64; packs per day: 1; Cigarettes Per Day: Less than a packet; Smoking End Date: 5 years ago; Second Hand Exposure: No; Do You Dip or Chew Tobacco: No; Tobacco Cessation Education Requested by Patient: No Hx Alcohol Use: No Hx Substance Use: No Preferred Language: Urdu 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 Ability: Effective Resources Representative 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 Beliefs That Will Affect Care: None marital status: Current Living Situation: Family Current Living Situation Comment: Lives with Daughter Other Information That Helps Us Care for You: No Feels Safe at Home: Yes Safety Concerns: Feels Safe At This Time Assistive Devices: Denture - Upper, Denture - Lower, Oxygen - Continuous and Wheelchair Assistive Devices Comment: Has a portable oxygen Review of Systems Review of Systems: All systems reviewed & are unremarkable except as noted in HPI & below Physical Exam Constitutional: well developed and + frail appearing; + not well nourished and no acute distress Eyes: + anicteric sclerae; normal pupil size ENMT: external ear and nose normal, oropharynx normal Respiratory: + respiratory distress, + labored breath ing, + uses accessory muscles and + prolonged expiratory phase Auscultation: + wheezes (expiratory); breath sounds present, no diminished lung sounds and no crackles Cardiovascular: RRR, no murmur, no edema Gastrointestinal (Abdomen): normal bowel sounds, soft, nontender, no hepatosplenomegaly Musculoskeletal: no cyanosis or clubbing, extremities motor strength 5/5 Skin: no rashes, warm and dry Neurologic: moves all extremities and awake; not confused Psychiatric: A+Ox3, euthymic affect Genitourinary: no CVA tenderness Results & Data Results & Data Vital Signs (Past 12 Hours) Vital Signs Temp Pulse Pulse Resp BP BP Pulse Ox 11/01/23 14:57 89 20 98 11/01/23 13:14 71 11/01/23 12:54 71 25 H 99 11/01/23 12:45 76 22 138/92 97 11/01/23 12:45 97 11/01/23 12:20 96 11/01/23 12:06 36.6 C 88 20 157/89 H 95 O2 Del Method O2 Flow Rate 11/01/23 14:57 Nasal Cannula 4 11/01/23 13:14 11/01/23 12:54 Nasal Cannula 5 11/01/23 12:45 Nasal Cannula 5 11/01/23 12:45 Nasal Cannula 5 11/01/23 12:20 Nasal Cannula 4 11/01/23 12:06 Nasal Cannula 4 Laboratory Results Abnormal lab results 11/01/23 Range/Units 12:40 RBC 4.07 L (4.20-5.40) M/uL Hgb 11.6 L (12.0-16.0) g/dl Hct 35.0 L (37.0-47.0) % VBG pH 7.34 L (7.36-7.41) VBG pCO2 52 H (38-50) mmHg Glucose 114 H (70-99(Fasting)) mg/dl Alkaline Phosphatase 105 H (34-104) U/L Diagnostic Findings XR chest 1V portable CLINICAL HISTORY: Dyspnea TECHNIQUE: Single frontal radiograph of the chest was obtained. Comparison: Comparison is made to chest radiograph 09/22/[address] chest 10/13/2023 FINDINGS: No lines and tubes are seen. The cardiomediastinal silhouette is normal. Emphysema is seen without airspace opacities. No evidence of pleural effusion or pneumothorax. IMPRESSION: No acute abnormalities and in particular no radiographic evidence of pneumonia. Medications Administered ER medications given: DuoNeb 12 mL neb Solu-Medrol 125 mg IV Magnesium sulfate 2 g IV Normal saline 500 mL bolus DuoNeb 12 mL neb ECG Rate (beats per minute): 80 Rhythm: normal sinus Findings: no acute ischemic change Comparison ECG Date: from (September 22, 2023) Change: no significant change Code Status & VTE Plan Code Status Full VTE Prophylaxis Plan VTE Prophylaxis will be ordered: Yes PG Care Time/CCT Total # of Minutes Spent Total Time Spent with Patient: Total time spent is greater than 50% in coordination of care (as documented) at patient's floor/unit and/or counseling patient: Coding Level of Care Code 89802 INT INP/OBS CARE 2/55MIN Diagnoses Acute exacerbation of chronic obstructive pulmonary disease J44.1 Hypoxia R09.02 Sleep apnea, obstructive G47.33
[2023-11-01] MEDS: DOXYCYCLINE HYCLATE 100 MG CAP PO STA (15:49)
[2023-11-01] MEDS: FORMOTEROL 20 MCG/2 ML VIAL NEB SCH (19:58)
[2023-11-01] MEDS: BUDESONIDE 0.5 MG/2 ML VIAL (PULMICORT) NEB SCH (19:58)
[2023-11-01] MEDS: ALBUT/IPRATROP 3MG/0.5MG NEB 3 ML VIAL NEB SCH (19:59)
[2023-11-01] MEDS: ACETAMINOPHEN 325 MG TAB PO PRN (20:30)
[2023-11-01] MEDS: ENOXAPARIN INJ 40 MG/0.4 ML SYR SQ SCH (20:30)
[2023-11-01] MEDS: DOXYCYCLINE HYCLATE 100 MG CAP PO SCH (20:32)
[2023-11-02] MEDS: ROFLUMILAST 500 MCG TAB PO SCH (07:40)
[2023-11-02] MEDS: VALSARTAN 80 MG TAB PO SCH (07:40)
[2023-11-02] MEDS: FEXOFENADINE HCL 180 MG TAB PO SCH (07:40)
[2023-11-02] MEDS: ESCITALOPRAM OXALATE 10 MG TAB PO SCH (07:41)
[2023-11-02] MEDS: methylPREDNISolone 40 MG in SYRINGE 0 ML IV SCH (08:43)
[2023-11-02] MEDS ORDERED: methylPREDNISolone 125 MG/2 ML VIAL IV SCH (09:00)
--- NOTE | 2023-11-02 14:44 | Hospitalist Progress Note ---
Date of Service November 02, 2023 Assessment & Plan (1) Acute exacerbation of chronic obstructive pulmonary disease: Plan: Cont solumedrol 40mg TID Cont nebs & inhalers Cont doxycycline 100mg BID add flutter valve add incentive spirometry add mucinex BID add saline nebs BID recheck a COVID swab given her significant nasal congestion add afrin nasal spray BID add saline spray prn (2) Sleep apnea, obstructive: Plan: cont CPAP HS (3) Chronic respiratory failure with hypoxia: Plan: on home o2 3 liters NC - continuously stable despite her COPD exacerbation see #1 above (4) Lung transplant candidate: Plan: following with [facility] transplant team Plan VTE Prophylaxis - Lovenox 40mg SQ daily Admission and Anticipated Discharge Date Admission Date: November 01, 2023 Subjective patient reports nasal & sinus congestion no facial pain, however appetite is wnl still with cough/congestion/dyspnea on exertion (her dyspnea right now is beyond her typical baseline dyspnea) no recent travel no sick contacts Review of Systems Review of Systems: gen - no fevers or chills cv - no chest pain pulm - mild sputum GI - no nausea or emesis Physical Exam Physical Exam: gen - sitting in chair, coughing, but no distress neck - no JVD mouth - MMM sinuses - no pain to palpation heart - RRR, s1 s2, no murmur lungs - relatively clear b/l but some occasional wheeze, decreased BS bases abd - soft NT ND BS+ ext - no edema, pulses 2+ b/l psych - a/o x 3 Results & Data Results & Data Vital Signs (Past 12 Hours) Vital Signs Temp Pulse Pulse Pulse Resp BP BP 11/02/23 13:59 76 20 11/02/23 12:37 36.8 C 91 H 19 150/80 H 11/02/23 11:48 11/02/23 07:37 36.4 C L 80 20 132/78 11/02/23 07:12 82 20 11/02/23 02:50 88 21 Pulse Ox Pulse Ox Pulse Ox Pulse Ox O2 Del Method O2 Flow Rate O2 Flow Rate 11/02/23 13:59 96 Nasal Cannula 4 11/02/23 12:37 94 Nasal Cannula 11/02/23 11:48 90 94 87 L 4 11/02/23 07:37 99 Nasal Cannula 4 11/02/23 07:12 97 Nasal Cannula 4 11/02/23 02:50 97 4 O2 Flow Rate O2 Flow Rate 11/02/23 13:59 11/02/23 12:37 11/02/23 11:48 4 4 11/02/23 07:37 11/02/23 07:12 11/02/23 02:50 PG Care Time/CCT Total # of Minutes Spent Total Time Spent with Patient: Total time spent is greater than 50% in coordination of care (as documented) at patient's floor/unit and/or counseling patient: Coding Level of Care Code 65026 SUB INP/OBS CARE 2/35MIN Diagnoses Acute exacerbation of chronic obstructive pulmonary disease J44.1 Sleep apnea, obstructive G47.33 Chronic respiratory failure with hypoxia J96.11 Lung transplant candidate Z76.82
[2023-11-02] MEDS: OXYMETAZOLINE 0.05% 30 ML BTL SCH (15:58)
[2023-11-02] MEDS: SODIUM CHLOR 7% 4 ML NEB NEB SCH (19:32)
[2023-11-02] MEDS: guaiFENesin 600 MG TABCR PO SCH (20:57)
[2023-11-02] MEDS: HYDROmorphone INJ 0.5 MG/0.5 ML SYR IV STA (22:56)
[2023-11-03 08:26] LABS: BUN Creatinine Ratio 33.3 (10-20); Calcium 8.7 mg/dl (8.6-10.3); Creatinine Clr Calc Pharmacy 62.6 ml/min; Est GFR (African American) 85.9 ml/min; Est GFR (Non-African American) 74.1 ml/min; Potassium 4.4 mmol/L (3.5-5.1)
[2023-11-03] MEDS: FAMOTIDINE 20MG IV PUSH 20 MG/5 ML SYR IV STA (17:23)
--- NOTE | 2023-11-03 18:14 | Hospitalist Progress Note ---
Date of Service November 03, 2023 Assessment & Plan (1) Acute exacerbation of chronic obstructive pulmonary disease: Plan: improving lower solumedrol to 40mg BID suspect COPD flare is being driven by a sinus infection Cont nebs & inhalers Cont doxycycline 100mg BID Cont flutter valve Cont incentive spirometry Cont mucinex BID Cont saline nebs BID repeat COVID was negative cont afrin nasal spray BID 1 more day saline spray prn (2) Sleep apnea, obstructive: Plan: cont CPAP HS (3) Chronic respiratory failure with hypoxia: Plan: on home o2 4 liters NC - continuously stable despite her COPD exacerbation see #1 above (4) Lung transplant candidate: Plan: following with [facility] transplant team (5) Acid reflux: Plan: clearly having SEVERE reflux symptoms and her EGD in July 2023 showed esophagitis/gastric ulcers/duodenal ulcers give pepcid 20mg IV x 1 then start PPI twice daily attempt to get records from [facility] re: pH probe & esophageal manometry (6) History of peptic ulcer disease: Plan: 07/2023 EGD with gastric & duodenal ulcers consider H pylori stool ag (7) Hyperglycemia: Plan: check a1c in am Plan VTE Prophylaxis - Lovenox 40mg SQ daily no d/c today possible d/c tomorrow updated pt's daughter Virgen by phone this evening Admission and Anticipated Discharge Date Admission Date: November 03, 2023 Subjective nasal/sinus congestion is improved she still has dyspnea on exertion and chest tightness beyond her baseline she is eating/drinking well she reports frequent heartburn as well as burping and belching she reports having had what sounds like esophageal manometry & 24-hour pH probe earlier this spring in [place] in preparation for lung transplantation I told her I found an EGD report from [facility] in July which showed esophagitis, shallow gastric ulcers, and superficial duodenal ulcers she was not aware of these findings and has not been taking any PPI at any point Review of Systems Review of Systems: gen - no fevers or chills cv - no chest pain pulm - only mild sputum particularly after receiving saline nebs Physical Exam Physical Exam: gen - sitting in chair, looks good, nad neck - no JVD mouth - MMM sinuses - no pain to palpation heart - RRR, s1 s2, no murmur lungs - CTA b/l, decreased BS bases only, no wheeze, no rales abd - soft NT ND BS+ ext - no edema, pulses 2+ b/l psych - a/o x 3 Results & Data Results & Data Vital Signs (Past 12 Hours) Vital Signs Temp Pulse Resp BP BP Pulse Ox O2 Del Method 11/03/23 15:11 36.7 C 79 20 146/71 H 96 Nasal Cannula 11/03/23 12:14 94 H 18 91 Nasal Cannula 11/03/23 08:49 Nasal Cannula 11/03/23 07:17 82 18 99 Nasal Cannula 11/03/23 06:52 36.5 C 76 18 163/74 H 97 Nasal Cannula O2 Flow Rate 11/03/23 15:11 4 11/03/23 12:14 4 11/03/23 08:49 4 11/03/23 07:17 5 11/03/23 06:52 4.0 Laboratory Results Laboratory Results - last 24 hr 11/03/23 06:46 Sodium 141 Potassium 4.4 Chloride 107 Carbon Dioxide 29 Anion Gap 5 BUN 27 H Creatinine 0.81 Est Cr Clr Drug Dosing 62.6 Est GFR ( Amer) 85.9 Est GFR (Non-Af Amer) 74.1 BUN/Creatinine Ratio 33.3 H Glucose 171 H Calcium 8.7 PG Care Time/CCT Total # of Minutes Spent Total Time Spent with Patient: Total time spent is greater than 50% in coordination of care (as documented) at patient's floor/unit and/or counseling patient: Coding Level of Care Code 12676 SUB INP/OBS CARE 3/50MIN Diagnoses Acute exacerbation of chronic obstructive pulmonary disease J44.1 Sleep apnea, obstructive G47.33 Chronic respiratory failure with hypoxia J96.11 Lung transplant candidate Z76.82 Acid reflux K21.9 History of peptic ulcer disease Z87.11 Hyperglycemia R73.9
[2023-11-03] MEDS: PANTOprazole 40 MG TAB PO SCH (20:54)
[2023-11-03] MEDS: methylPREDNISolone 40 MG in SYRINGE 0 ML IV SCH (21:00)
[2023-11-04] MEDS: AMOXICILLIN/CLAVULANATE 875 MG TAB PO SCH (16:42)
[2023-11-04] MEDS: ADVANCED PROBIOTIC 625 MG CAPSULE PO SCH (16:48)
[2023-11-04 17:44] LABS: Albumin Globulin Ratio 1.6 (0.9-2); Albumin Level 3.7 gm/dl (3.4-5.0); BUN Creatinine Ratio 32.5 (10-20); Bilirubin,Total 0.2 mg/dl (0.2-1.0); Calcium 8.8 mg/dl (8.6-10.3); Creatinine Clr Calc Pharmacy 63.4 ml/min; Est GFR (African American) 87.2 ml/min; Est GFR (Non-African American) 75.2 ml/min; Globulin 2.3 gm/dl (2.5-4.0)
--- NOTE | 2023-11-04 19:02 | Hospitalist Progress Note ---
Date of Service November 04, 2023 Assessment & Plan (1) Acute exacerbation of chronic obstructive pulmonary disease: Plan: improving lower solumedrol to 30mg BID likely can transition to PO prednisone tomorrow suspect COPD flare is being driven by a sinus infection Cont nebs & inhalers Cont abx but change doxycycline to augmentin 875mg BID as prior sputum cx's grew doxy resistant strep pneumo Cont flutter valve Cont incentive spirometry Cont mucinex BID Cont saline nebs BID repeat COVID was negative saline spray prn at home can use astepro or astelin (both not available at [facility]) may need a repeat 2-step before discharge by respiratory therapy (2) Sleep apnea, obstructive: Plan: cont CPAP HS (3) Chronic respiratory failure with hypoxia: Plan: on home o2 4 liters NC - continuously stable despite her COPD exacerbation see #1 above (4) Lung transplant candidate: Plan: following with [facility] transplant team (5) Acid reflux: Plan: EGD in July 2023 showed esophagitis/gastric ulcers/duodenal ulcers s/p pepcid 20mg IV x 1 and initiation of PPI twice daily symptoms IMPROVED got records from [facility] re: pH probe & esophageal manometry - these tests suggested severe GERD and severe dysmotility of esophagus consult speech 2nd dysmotility consult nutrition for "GERD diet" (6) History of peptic ulcer disease: Plan: 07/2023 EGD with gastric & duodenal ulcers consider H pylori stool ag PPI bid (7) Hyperglycemia: Plan: a1c pending serum glucose today is improved Plan VTE Prophylaxis - Lovenox 40mg SQ daily d/c tomorrow ?? updated pt's daughter Virgen by phone yesterday evening Admission and Anticipated Discharge Date Admission Date: November 03, 2023 Subjective reports GERD symptoms are better still with [facility] staff walked patient in hallway - sats dropped to 91% on her typical 4 L NC O2 mild cough still with sinus congestion eating well Review of Systems Review of Systems: gen - no fevers cv - no chest pain pulm - cough, congestion, some sputum - no wheezing GI - no n/v Physical Exam Physical Exam: gen - sitting in chair, looks good, nad - occasional cough only; no respiratory distress neck - no JVD mouth - MMM heart - RRR, s1 s2, no murmur lungs - CTA b/l, decreased BS bases only, no wheeze, no rales ; good airation abd - soft NT ND BS+ ext - no edema, pulses 2+ b/l psych - a/o x 3 Results & Data Results & Data Vital Signs (Past 12 Hours) Vital Signs Temp Pulse Resp BP Pulse Ox O2 Del Method O2 Flow Rate 11/04/23 00:48 79 19 98 Nasal Cannula 4 11/03/23 22:55 Nasal Cannula 4 11/03/23 20:18 77 18 95 Nasal Cannula 4 11/03/23 19:21 36.6 C 74 16 167/87 H 97 Nasal Cannula 4.0 Intake and Output 11/04/23 11/04/23 11/04/23 06:59 14:59 22:59 Other: Weight 72.7 kg Patient Weight 11/05/23 06:59 Weight 72.7 kg Laboratory Results Laboratory Results - last 24 hr 11/04/23 09:55 Sodium 139 Potassium 4.0 Chloride 106 Carbon Dioxide 27 Anion Gap 6 BUN 26 H Creatinine 0.80 Est Cr Clr Drug Dosing 63.4 Est GFR ( Amer) 87.2 Est GFR (Non-Af Amer) 75.2 BUN/Creatinine Ratio 32.5 H Glucose 114 H Estimat Average Glucose Pending Hemoglobin A1c Pending Calcium 8.8 Total Bilirubin 0.2 AST 13 ALT 23 Alkaline Phosphatase 79 Total Protein 6.0 Albumin 3.7 Globulin 2.3 L Albumin/Globulin Ratio 1.6 PG Care Time/CCT Total # of Minutes Spent Total Time Spent with Patient: Total time spent is greater than 50% in coordination of care (as documented) at patient's floor/unit and/or counseling patient: Coding Level of Care Code 26362 SUB INP/OBS CARE 2/35MIN Diagnoses Acute exacerbation of chronic obstructive pulmonary disease J44.1 Sleep apnea, obstructive G47.33 Chronic respiratory failure with hypoxia J96.11 Lung transplant candidate Z76.82 Acid reflux K21.9 History of peptic ulcer disease Z87.11 Hyperglycemia R73.9
[2023-11-04] MEDS: methylPREDNISolone 30 MG in SYRINGE 0 ML IV SCH (20:27)
[2023-11-04] MEDS ORDERED: KETOROLAC TROMETHAMINE 15 MG/ML VIAL IV PRN (21:12)
[2023-11-04] MEDS ORDERED: KETOROLAC 30 MG/ML VIAL IV PRN (21:12)
[2023-11-05 07:30] LABS: Estimated Average Glucose 137 mg/dl; Hemoglobin A1C 6.4 % (4.5-5.6)
--- NOTE | 2023-11-05 19:50 | Hospitalist Progress Note ---
Date of Service November 05, 2023 Assessment & Plan (1) Acute exacerbation of chronic obstructive pulmonary disease: Plan: improving cont solumedrol 30mg BID - no change today but likely over to PO prednisone tomorrow suspect COPD flare is being driven by a sinus infection Cont nebs & inhalers Cont augmentin 875mg BID as prior sputum cx's grew doxycycline resistant strep pneumo Cont flutter valve Cont incentive spirometry Cont mucinex BID Cont saline nebs BID repeat COVID was negative saline spray prn at home can use astepro or astelin (both not available at [facility]) repeat 2-step before discharge (2) Acute sinusitis: Plan: augmentin x 10 days h/o doxy-resistant strep pneumo on sputum cx 10/09 and 08/09 (3) Sleep apnea, obstructive: Plan: cont CPAP HS (4) Chronic respiratory failure with hypoxia: Plan: on home o2 4 liters NC - continuously stable despite her COPD exacerbation see #1 above 2-step tomorrow before d/c (5) Lung transplant candidate: Plan: following with [facility] transplant team (6) Acid reflux: Plan: EGD in July 2023 showed esophagitis/gastric ulcers/duodenal ulcers s/p pepcid 20mg IV x 1 and initiation of PPI twice daily symptoms IMPROVED got records from [facility] re: pH probe & esophageal manometry - these tests suggested severe GERD and severe dysmotility of esophagus appreciate speech & nutrition consults (7) History of peptic ulcer disease: Plan: 07/2023 EGD with gastric & duodenal ulcers consider H pylori stool ag PPI bid (8) Prediabetes: Plan: a1c 6.4% c/w pre-DM informed pt of diagnosis gave handouts dietary control for now routine a1c checks as outpatient to keep eye on this Plan diarrhea - checked c diff but stool was formed & test not run thus, unlikely to have c diff VTE Prophylaxis - Lovenox 40mg SQ daily d/c tomorrow updated pt's daughter Virgen by phone this evening Admission and Anticipated Discharge Date Admission Date: November 03, 2023 Subjective reports 2-3 episodes of small volume diarrhea no abd pain no N/V sinuses still congested - but not as bad as previous still with TAPIA beyond baseline cough remains as well overall, however, still doing better Review of Systems Review of Systems: gen - no fevers cv - no chest pain GI - no vomiting pulm - very little sputum Physical Exam Physical Exam: gen - coughing at times, looks well neck - no JVD mouth - MMM heart - RRR, s1 s2, no murmur lungs - CTA b/l, airation improved bases today, no wheeze, no rales abd - soft NT ND BS+ ext - no edema, pulses 2+ b/l psych - a/o x 3 Results & Data Results & Data Vital Signs (Past 12 Hours) Vital Signs Temp Pulse Resp BP Pulse Ox O2 Del Method O2 Flow Rate 11/05/23 19:34 78 18 98 Nasal Cannula 4 11/05/23 14:30 36.7 C 84 18 150/77 H 94 Nasal Cannula 4 11/05/23 13:35 84 20 97 Nasal Cannula 4 PG Care Time/CCT Total # of Minutes Spent Total Time Spent with Patient: Total time spent is greater than 50% in coordination of care (as documented) at patient's floor/unit and/or counseling patient: Coding Level of Care Code 93691 SUB INP/OBS CARE 2/35MIN Diagnoses Acute exacerbation of chronic obstructive pulmonary disease J44.1 Acute sinusitis J01.90 Sleep apnea, obstructive G47.33 Chronic respiratory failure with hypoxia J96.11 Lung transplant candidate Z76.82 Acid reflux K21.9 History of peptic ulcer disease Z87.11 Prediabetes R73.03
[2023-11-05] MEDS: SODIUM CHLORIDE 0.65% NA SOLN 45 ML (OCEAN) PRN (20:13)
--- NOTE | 2023-11-06 10:58 | Discharge Summary ---
Date of Service November 06, 2023 Admission HPI Per Admitting Provider Masha Mcneil is a 68-year-old female well-known to this service with COPD and repeated exacerbations who presents to the ER with shortness of breath for the past 4 days getting progressively worse. She is on chronic oxygen at 4 L/min O2 at baseline. She feels this is similar to prior COPD exacerbations although in addition has some reproducible pain on her lower bilateral sides. She no longer smokes and is unsure what triggered this episode. She has also noticed burning sensation of her urine over the last day. No CVA tenderness, fever, chills, palpitations, leg swelling. Discharge Exam gen - coughing at times, looks well neck - no JVD mouth - MMM heart - RRR, s1 s2, no murmur lungs - CTA b/l, airation improved bases today, no wheeze, no rales abd - soft NT ND BS+ ext - no edema, pulses 2+ b/l psych - a/o x 3 Discharge Data Allergies Allergy/AdvReac Type Severity Reaction Status Date / Time aspirin AdvReac Intermediate GI SYMPTOMS Verified 11/01/23 15:36 Consultations 11/01/23 14:30 ED Decision to Admit Stat Hospital Course (1) Acute exacerbation of chronic obstructive pulmonary disease: improving cont solumedrol 30mg BID - no change today but likely over to PO prednisone tomorrow suspect COPD flare is being driven by a sinus infection Cont nebs & inhalers Cont augmentin 875mg BID as prior sputum cx's grew doxycycline resistant strep pneumo Cont flutter valve Cont incentive spirometry Cont mucinex BID Cont saline nebs BID repeat COVID was negative saline spray prn at home can use astepro or astelin (both not available at [facility]) repeat 2-step before discharge (2) Acute sinusitis: augmentin x 10 days h/o doxy-resistant strep pneumo on sputum cx 10/09 and 08/09 (3) Sleep apnea, obstructive: cont CPAP HS (4) Chronic respiratory failure with hypoxia: on home o2 4 liters NC - continuously stable despite her COPD exacerbation see #1 above 2-step tomorrow before d/c (5) Lung transplant candidate: following with [facility] transplant team (6) Acid reflux: EGD in July 2023 showed esophagitis/gastric ulcers/duodenal ulcers s/p pepcid 20mg IV x 1 and initiation of PPI twice daily symptoms IMPROVED got records from [facility] re: pH probe & esophageal manometry - these tests suggested severe GERD and severe dysmotility of esophagus appreciate speech & nutrition consults (7) History of peptic ulcer disease: 07/2023 EGD with gastric & duodenal ulcers consider H pylori stool ag PPI bid (8) Prediabetes: a1c 6.4% c/w pre-DM informed pt of diagnosis gave handouts dietary control for now routine a1c checks as outpatient to keep eye on this Plan diarrhea - checked c diff but stool was formed & test not run thus, unlikely to have c diff VTE Prophylaxis - Lovenox 40mg SQ daily d/c tomorrow updated pt's daughter Virgen by phone this evening Discharge Plan Discharge Items Patient Disposition: Home - Self-Care Reason For Visit: COPD EXACERBATION Discharge Diagnosis: 1. COPD exacerbation - resolving 2. sinus infection 3. pre-diabetes with hemoglobin a1c 6.4% (see handouts) 4. gastroesophageal reflux disease (GERD) 5. chronic respiratory failure on home oxygen - 4 liters continuously 6. obstructive sleep apnea on CPAP 7. upper endoscopy 2023 with esophagitis, gastric ulcers, and duodenal ulcers Activity: As commented below Activity Comment: gradually increase activities over the next 7-10 days Non-emergency contact: Primary Care Provider Call non-emergency contact if: you have any medication questions Follow-up/Referrals: Maya Weller, OTR [Primary Care Provider] - (5-7 days ) Diet: Carb Consistent or DM2 Addtl Attending Provider Instructions: Mrs Mcneil, Raciel were treated for COPD exacerbation as well as a sinus infection. The COPD was treated with steroids, nebulizer treatments, and other supportive care. The sinus infection was treated with antibiotics. You made steady improvement in all symptoms during your stay. On day of discharge we walked you in the hallway and your oxygen levels stayed 90% or more with your home oxygen amount of 4 liters. We discovered that you have something called "pre-diabetes" (see handouts). Your hemoglobin a1c test was 6.4% which confirms you are a pre-diabetic. This can be controlled with dietary measures. No need for medicine at this time. In addition, you complained of frequent heartburn symptoms. Your EGD earlier in 2023 showed esophagitis (irritation of the esophagus from reflux/heartburn), ulcers in the stomach, and ulcers in the duodenum. Your pH probe done at [facility] also demonstrated frequent reflux disease. You were seen by both speech therapy & our parole or probation officer for these issues. Recommendations - 1. for your COPD - * prednisone taper -- start 11/07/23; take with food; it is a 6-day course * saline nebulizer treatments -- if you have chest congestion/mucous you can take saline neb treatments up to twice a day; simply mix in the saline neb with one of your "Duonebs" and inhale like usual * the saline can be used as needed over the next several days as you recover from your illness * these can also be used in the future with any flare-up of your COPD 2. antibiotics - * amoxicillin-clavulanate -- 875mg twice daily x 8 days, next dose TONIGHT with your evening meal * most common side effect -- diarrhea * for the diarrhea eat yogurt once or twice a day for the next 10 days * you can also purchase an [id number] probiotic supplement; this may help reduce the diarrhea 3. heartburn medicine - * pantoprazole 40mg twice daily x 30 days (I called this in to your pharmacy for you) * I have printed a prescription for pantoprazole 40mg daily to be used in the future; simply hang on to that written prescription and fill it in 1 month * in a month we are going to lower the pantoprazole dose to ONCE DAILY * see handouts n GERD 4. pre-diabetes - see handouts. Follow-up with your family doctor for this. 5. for sinus congestion - in addition to your saline spray and flonase you can purchase [id number] "Astelin." This is an anti-histamine nasal spray that may help with your sinus congestion. The Astelin is 2 sprays in each nostril up to twice daily. Follow-up - see your family doctor within 5-7 days; see [facility] in November as scheduled Return to [facility] if - * you have fevers over 100 degrees * you have worsening shortness of breath * you have chest pains * you develop severe liquid diarrhea (3-4 episodes or more in a 24-hour period) * your pulse oximeter readings on your finger are consistently LESS THAN 90% * any other concerns It was our pleasure to care for you! -Dr Calderon Pending Studies at Discharge: No Stand-Alone Forms: My [facility], Smoking Cessation Medications and DC Order Prescriptions: New amoxicillin-pot clavulanate 875-125 mg Tablet 1 tab PO BIDM 8 Days Qty: 16 0RF sodium chloride 7 % Solution For Nebulization 4 ml NEB BID PRN (Reason: chest congestion/chest mucous) Qty: 120 0RF Rx Instructions: mix the saline with a "duoneb" to administer pantoprazole 40 mg Tablet,Delayed Release (Dr/Ec) 40 mg PO BID Qty: 60 0RF prednisone 10 mg tablet 10 mg PO .daily as directed Qty: 17 0RF Rx Instructions: start 11/07/23, take w/ food. 4 tabs PO QD x 2 days; 3 tabs PO QD x 2 days; 2 tabs PO QD x 1 day; 1 tab PO QD x 1 day. pantoprazole [Protonix] 40 mg tablet,delayed release (DR/EC) 40 mg PO QAM Qty: 30 2RF Continued albuterol sulfate 90 mcg/actuation HFA aerosol inhaler 2 puff inhalation Q4H PRN (Reason: shortness of breath or wheezing) Qty: 8.5 3RF Rx Instructions: Generic for ProAir- Patient can not use Ventolin Trelegy Ellipta 100-62.5-25 mcg blister with device 1 inh inhalation DAILY Qty: 28 7RF ipratropium-albuterol 0.5 mg-3 mg(2.5 mg base)/3 mL solution for nebulization 3 ml INH QID PRN (Reason: Shortness Of Breath) Qty: 360 5RF (DME) CPAP Machine Misc See Rx Instructions .MEDSUPPLY Qty: 1 0RF Rx Instructions: Auto-titration CPAP with pressure range between 5 cm H2O and 15 cm H2O with humidification. Lifetime need. (DME) CPAP Supplies Misc See Rx Instructions .MEDSUPPLY Qty: 1 0RF Rx Instructions: Refitting of the mask. G47.33 (DME) Portable Oxygen Misc See Rx Instructions .Route Qty: 1 0RF Rx Instructions: portable oxygen concentrator- 3LPM on exertion via n/c. SILVIA:99 ergocalciferol (vitamin D2) 1,250 mcg (50,000 unit) capsule 1,250 mcg PO WK Rx Instructions: MONDAYS escitalopram oxalate [Lexapro] 10 mg tablet 15 mg PO QAM fexofenadine 180 mg Tablet 180 mg PO DAILY Rx Instructions: otc. unable to verify with pharmacy azithromycin 250 mg tablet 250 mg PO 3XWK Hold Instructions: Resume on 09/09/23. Rx Instructions: MON, WED, & TUE. roflumilast 500 mcg tablet 500 mcg PO QAM valsartan 80 mg tablet 80 mg PO DAILY Discharge Orders: Discharge Order (Routine); Ordered 11/06/23 Ordered By: Aureliano Orellana/Other Patient Handouts: Prediabetes, What Is COPD, Tips to Control Acid Reflux, Managing Diabetes: The A1C Test, ED GERD (Adult) Admission Data Admit Date/Time: 11/03/23 17:21 Attending Provider: Aureliano Calderon Admit Provider: Aureliano Calderon Primary Care Provider: Maya Weller Other Providers: Aureliano New Other Interventions: Discharge Summary Assessment (RN) Last Done: 11/06/23 10:48 Coding Diagnoses Acute exacerbation of chronic obstructive pulmonary disease J44.1 Acute sinusitis J01.90 Sleep apnea, obstructive G47.33 Chronic respiratory failure with hypoxia J96.11 Lung transplant candidate Z76.82 Acid reflux K21.9 History of peptic ulcer disease Z87.11 Prediabetes R73.03
[2023-11-07] MEDS ORDERED: ERGOCALCIFEROL 1250 MCG (50,000 UNITS) CAP PO SCH (09:00)
== END 2023-11-06 11:41 | disposition home or self-care (01) | DRG 191 ==
LOC: ED 12:01 → 3W 12:01 → SUATTDRO 15:24 → 3W 20:00

== ENCOUNTER 2024-04-05 13:03 | Inpatient (IN) ==
--- NOTE | 2024-04-05 15:07 | Emergency Department Note ---
Impression & Plan Hypoxia TRANSFER ED Provider Note HPI: History obtained from patient. The patient is a 68-year-old female with history of end-stage COPD status post bilateral lung transplant at [facility] in November 2023,Currently on tacrolimus, CellCept, prednisone, Vfend, atovaquone, presents the emergency department with a chief complaint of worsening dyspnea on exertion over the past 2 days. Patient states that she has oxygen to use at home as needed and over the past 2 days she has used 3 L nasal cannula consistently secondary to her dyspnea. Patient denies constant chest pain but states that when she coughs she does get a sensation of pain on the right side of her chest. On my assessment here in the ED the patient is stable on 3 L nasal cannula oxygen, she presents with borderline temperature at 37.7 but otherwise appears to be in no acute distress on my initial evaluation. ROS: - Per HPI Differential Diagnosis: Pneumonia, viral upper respiratory infection with cough, acute CHF exacerbation, pulmonary edema, pleural effusion, acute coronary syndrome, pulmonary embolism, amongst other potential pathologies. *Outpatient medications and allergy history reviewed. PE: General: Alert, No acute distress HEENT: Normocephalic, trachea midline Eyes: Extraocular eye movement is intact, no scleral erythema Pulmonary: Clear to auscultation bilaterally, no wheezing Cardio: Regular rate and rhythm GI: Abdomen is soft to palpation : No suprapubic tenderness MSK: No evidence of trauma or malformation of the extremities, no edema Skin: No evidence of rash Neuro: Alert, no focal deficits Psychiatric: Cooperative INDEPENDENT INTERPRETATIONS: overcoil stepper: (As interpreted by myself): - An order was placed for continuous cardiac monitoring - Patient was noted to be in Sinus rhythm with a rate of 85 EKG: (As interpreted by myself): Rate: 99 Rhythm: Normal sinus rhythm Intervals: Within normal limits ST changes: No ST elevation Time: 1314 Chest x-ray: (As interpreted by myself): Multifocal pneumonia Interventions provided in ED: -IV vancomycin, IV cefepime, IV doxycycline Medical Decision Making: Patient presented to the emergency department with a chief complaint of cough, shortness of breath, and right-sided chest pain when she coughs only.IV was established and lab work obtained, lab work shows a leukocytosis of 14.44, hemoglobin is 9.0, platelet count is normal, venous blood gas was obtained that shows a normal pH, pCO2 is normal, CMP does not show any evidence of any critical findings, troponin is mildly elevated at 20.5, BNP is elevated at 448, procalcitonin is also elevated at 2.38, patient is immunocompromise as she is on multiple antirejection medications and also on prophylaxis for infection. Given that the patient recently had a lung transplant at [facility], I did reach out to their transplant team and initially discussed the patient's care with the transplant coordination nurse, she recommended transfer and therefore I did discuss the case with the attending single wire saw operator, Dr. Ramon, And he was in agreement for the patient to be transferred and recommended transfer since her transplant was within a 1 year timeframe. Patient was in agreement for transfer and did sign consent for transfer. According to the transfer center at [facility] there may be a prolonged wait for an available bed. They stated possibly overnight or tomorrow morning. IV antibiotics were therefore initiated here in the ED, patient was signed out to my colleague, Dr. Kilgore, pending availability of bed and transfer. Patient could possibly require admission to this facility overnight if a bed is not available until tomorrow or later. Patient was understanding of this as well as the transfer center and pulmonology team at [facility]. Patient was signed out in stable condition for further care. Consultants/Discussions held with other healthcare providers: -Pulmonology at [facility], Dr. Ramon Disposition discussion held by myself with: - Patient Diagnosis: 1. Multifocal pneumonia, acute 2. Hypoxia with increased oxygen requirement, acute 3. History of bilateral lung transplant 4. Leukocytosis, acute 5. Elevated procalcitonin, acute 6. Elevated high-sensitivity troponin level, acute 7. Elevated BNP, acute Disposition: TRANSFER Idris Mosher DO Emergency Medicine Past Med/Surg History Problem List (Updated 04/05/24 @ 18:43 by Idris Mosher DO) Hypoxia (Acute) Lung transplant recipient Prediabetes Hyperglycemia History of peptic ulcer disease Shortness of breath (Acute) Acute exacerbation of chronic obstructive pulmonary disease (Acute) Hypoxia (Acute) Failure of outpatient treatment (Acute) Acute exacerbation of chronic obstructive pulmonary disease (COPD) (Acute) Acute and chronic respiratory failure (Acute) Acute pericardial effusion (Acute) Acute exacerbation of chronic obstructive pulmonary disease (Acute) Lower back pain Goals of care, counseling/discussion Palliative care encounter Pneumonia (Acute) Acute respiratory failure with hypoxia and hypercapnia Failure of outpatient treatment (Acute) Paroxysmal atrial tachycardia Leukocytosis Acute exacerbation of chronic obstructive pulmonary disease (Acute) SOB (shortness of breath) (Acute) Acid reflux Influenza A (Acute) Acute respiratory failure with hypercapnia COVID-19 (Acute) Chest pain (Acute) Ex-smoker COPD (chronic obstructive pulmonary disease) (Acute) Chronic respiratory failure with hypoxia (Acute) Dyspnea Cough Fever Acute on chronic respiratory failure with hypoxia (Acute) Dysfunction of both eustachian tubes Acute respiratory failure with hypoxia Paroxysmal atrial tachycardia Acute dyspnea (Acute) History of tobacco use Lung transplant candidate Sacroiliitis Multiple pulmonary nodules no biopsies, monitored COPD exacerbation (Acute) [facility] 03/2023 Chronic respiratory failure SOB (shortness of breath) (Acute) "all the time" Anxiety with depression Chronic obstructive pulmonary disease with hypoxia 3L O2 pr, [facility] Pulm Dr. Dhillon Sleep apnea, obstructive (Chronic) CPAP Medical History Family history of paroxysmal atrial tachycardia History of COVID-19 (~2021) x3 sob, cough, fatigue; resolved History of recent pneumonia (~09/2022) Surgical History Hx of cardiac catheterization (~2022) Had in [place] as part of work up for [facility] to get on Lung Transplant list, no stents Hx of colonoscopy with polypectomy Hx of bilateral cataract extraction History of partial hysterectomy History of carpal tunnel surgery of right wrist History of broken collarbone sx to repair History of tooth extraction all teeth H/O partial thyroidectomy (~1989) d/t hemorrhaging?--unknown cause, no meds Family History Mother , from ovarian cancer Cancer Ovarian Sister Cancer Ovarian Father COPD (chronic obstructive pulmonary disease) Other No family history of adverse response to anesthesia Social History Smoking Status: Former smoker Tobacco Type: Cigarettes Age Started Using Tobacco: 17; Age Quit Using Tobacco: 64; packs per day: 1; Cigarettes Per Day: Less than a packet; Second Hand Exposure: No; Do You Dip or Chew Tobacco: No; Hx Alcohol Use: No Hx Substance Use: No Preferred Language: Turkish 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 Ability: Effective Research Animal Attendant 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 Beliefs That Will Affect Care: None marital status: Current Living Situation: Family Current Living Situation Comment: Lives with Daughter Feels Safe at Home: Yes Assistive Devices: Oxygen - Continuous, Walker and Wheelchair Allergies Allergies Allergy/AdvReac Type Severity Reaction Status Date / Time aspirin AdvReac Intermediate GI SYMPTOMS Verified 02/14/24 09:24 Home Meds Home Medications Medication Instructions Recorded Confirmed escitalopram oxalate 10 mg tablet 15 mg PO QAM 08/05/22 02/14/24 (Lexapro) ergocalciferol (vitamin D2) 1,250 1,250 mcg PO WK 03/26/23 02/14/24 mcg (50,000 unit) capsule fexofenadine 180 mg tablet 180 mg PO DAILY 09/01/23 02/14/24 valsartan 80 mg tablet 80 mg PO DAILY 09/22/23 02/14/24 Previous Rx's Medication Instructions Recorded CPAP Machine #1 ea 12/06/19 CPAP Supplies #1 ea 05/11/21 Portable Oxygen #1 ea 09/15/22 ipratropium 0.5 mg-albuterol 3 mg 3 ml inhalation QID PRN Shortness 06/08/23 (2.5 mg base)/3 mL nebulization Of Breath #360 mL soln pantoprazole 40 mg tablet,delayed 40 mg PO BID #60 tabs 11/06/23 release pantoprazole 40 mg tablet,delayed 40 mg PO QAM #30 tabs 11/06/23 release (Protonix) prednisone 10 mg tablet 10 mg PO .daily as directed #17 11/06/23 tabs sodium chloride 7 % for 4 ml NEB BID PRN chest 11/06/23 nebulization congestion/chest mucous #120 mL albuterol sulfate 90 mcg/actuation 2 puff inhalation Q4H PRN 02/16/24 aerosol inhaler shortness of breath or wheezing #8.5 grams fluticasone fur. 100 mcg-umeclid 1 inh inhalation DAILY #28 ea 02/16/24 62.5 mcg-vilant 25 mcg inhalat.powder (Trelegy Ellipta) Results & Data (ED) Vital Signs Vital Signs - 24 hr 04/05/24 12:56 04/05/24 12:56 04/05/24 13:19 Temperature 37.7 C H Temperature Source Oral Pulse Rate Pulse Rate from SpO2 Sensor Respiratory Rate 19 Blood Pressure 134/80 134/80 Blood Pressure Mean 98 117 Pulse Oximetry 93 Oxygen Delivery Method Nasal Cannula Nasal Cannula Oxygen Flow Rate 3 3 Sepsis Recent Fever Within 48 Hours No Sepsis New/Unexplained Change in Mental Status No Sepsis Action Taken by Nursing No Action Required 04/05/24 13:24 04/05/24 13:33 04/05/24 14:00 Temperature Temperature Source Pulse Rate 99 H 100 H 95 H Pulse Rate from SpO2 Sensor 100 H 95 H Respiratory Rate 24 30 H Blood Pressure 146/81 H 134/78 Blood Pressure Mean 102 96 Pulse Oximetry 95 98 Oxygen Delivery Method Nasal Cannula Oxygen Flow Rate 3 Sepsis Recent Fever Within 48 Hours Sepsis New/Unexplained Change in Mental Status Sepsis Action Taken by Nursing 04/05/24 14:30 04/05/24 14:30 04/05/24 14:56 Temperature Temperature Source Pulse Rate 93 H Pulse Rate from SpO2 Sensor 91 H Respiratory Rate 27 H Blood Pressure 132/76 132/76 Blood Pressure Mean 94 100 Pulse Oximetry 98 Oxygen Delivery Method Nasal Cannula Oxygen Flow Rate 3 Sepsis Recent Fever Within 48 Hours Sepsis New/Unexplained Change in Mental Status Sepsis Action Taken by Nursing 04/05/24 15:00 04/05/24 15:30 04/05/24 17:25 Temperature Temperature Source Pulse Rate 94 H 94 H 86 Pulse Rate from SpO2 Sensor 91 H 91 H Respiratory Rate 27 H 26 H Blood Pressure 118/76 128/74 Blood Pressure Mean 102 101 Pulse Oximetry 98 98 Oxygen Delivery Method Oxygen Flow Rate Sepsis Recent Fever Within 48 Hours Sepsis New/Unexplained Change in Mental Status Sepsis Action Taken by Nursing Laboratory Data 04/05/24 15:32 04/05/24 15:32 Lab Results 04/05/24 04/05/24 04/05/24 Range/Units 13:17 15:32 15:42 WBC 14.44 H (4.8-10.8) K/ul RBC 2.88 L (4.20-5.40) M/uL Hgb 9.0 L (12.0-16.0) g/dl Hct 27.9 L (37.0-47.0) % MCV 96.9 (80.0-100.0) fL MCH 31.3 (25.0-34.0) pg MCHC 32.3 (32.0-36.0) g/dL RDW Std Deviation 53.3 H (36.4-46.3) fL RDW Coeff of Audrey 14.9 H (11.5-14.5) % Plt Count 270 (130-400) K/uL MPV 9.3 L (9.4-12.4) fL Immature Gran % (Auto) 1.5 % Neut % (Auto) 86.0 % Lymph % (Auto) 4.6 % Braxton % (Auto) 7.2 % Eos % (Auto) 0.3 % Baso % (Auto) 0.4 % Neut # (Auto) 12.42 H (1.40-6.50) K/uL Lymph # (Auto) 0.66 L (1.20-3.40) K/uL Braxton # (Auto) 1.04 H (0.11-0.59) K/uL Eos # (Auto) 0.05 (0.00-0.50) K/uL Baso # (Auto) 0.06 (0.00-0.20) K/uL Immature Gran # (Auto) 0.21 H (0.01-0.20) K/uL PT 11.6 (9.0-12.0) Seconds INR 1.1 (0.9-1.1) APTT 30 (21-31) Seconds PTT Ratio 1.1 VBG pH 7.36 (7.36-7.41) VBG pCO2 47 (38-50) mmHg VBG pO2 30 mmHg VBG HCO3 27 mmol/L VBG O2 Saturation < 60.0 % VBG Base Excess 0.6 mEq/L Sodium 141 (136-145) mmol/L Potassium 4.0 (3.5-5.1) mmol/L Chloride 108 H (98-107) mmol/L Carbon Dioxide 24 (21-32) mmol/L Anion Gap 9 (3-11) BUN 24 H (6-23) mg/dl Creatinine 1.24 H (0.6-1.2) mg/dl Est Cr Clr Drug Dosing 41.6 ml/min eGFR 47.11 BUN/Creatinine Ratio 19.4 (10-20) Glucose 62 L (70-99(Fasting)) mg/dl POC Glucose 74 (70-99) mg/dl Calcium 7.4 L (8.6-10.3) mg/dl Total Bilirubin 0.6 (0.2-1.0) mg/dl AST 20 (13-39) U/L ALT 14 (7-52) U/L Alkaline Phosphatase 142 H (34-104) U/L Troponin I High Sens 20.5 H (0-14) pg/ml B-Natriuretic Peptide 448 H (0-100) pg/ml Total Protein 5.6 L (6.0-8.3) gm/dl Albumin 3.6 (3.4-5.0) gm/dl Globulin 2.0 L (2.5-4.0) gm/dl Albumin/Globulin Ratio 1.8 (0.9-2) Procalcitonin 2.38 H (0-0.5) ng/ml Adenovirus (PCR) Not Detected (NotDetected) B. pertussis DNA (PCR) Not Detected (NotDetected) B.parapertussis DNA PCR Not Detected (NotDetected) C. pneumoniae DNA (PCR) Not Detected (NotDetected) Coronavirus OC43 (PCR) Not Detected (NotDetected) Coronavirus HKU1 (PCR) Not Detected (NotDetected) Coronavirus 229E (PCR) Not Detected (NotDetected) SARS-CoV-2 (PCR) Not Detected (NotDetected) Coronavirus NL63 (PCR) Not Detected (NotDetected) Human Metapneumovir PCR Not Detected (NotDetected) Influenza Type A (PCR) Not Detected (NotDetected) Influenza Type B (PCR) Not Detected (NotDetected) M. pneumoniae (PCR) Not Detected (NotDetected) Parainfluenza 1 (PCR) Not Detected (NotDetected) Parainfluenza 2 (PCR) Not Detected (NotDetected) Parainfluenza 3 (PCR) Not Detected (NotDetected) Parainfluenza 4 (PCR) Not Detected (NotDetected) RSV (PCR) Not Detected (NotDetected) Entero/Rhino (PCR) Not Detected (NotDetected) Administered Medications Discontinued Medications Cefepime HCl (Maxipime 2000mg) 1,000 mg in 10 mls @ 5 mls/min IV NOW STA; Protocol Stop: 12/19/24 16:30 Last Admin: 04/05/24 17:31 Dose: 5 mls/min Documented By: KARUNA Doxycycline Hyclate 100 mg/ (Dextrose) 100 mls @ 50 mls/hr IV NOW STA Stop: 04/05/24 18:28 Last Admin: 04/05/24 17:31 Dose: 50 mls/hr Documented By: KARUNA Morphine Sulfate (Morphine Sulfate 4 Mg/Ml 1 Ml Carp\\Vial) 4 mg IV NOW STA Stop: 04/05/24 15:50 Last Admin: 04/05/24 16:02 Dose: 4 mg Documented By: SHAVONNE Ondansetron HCl (Ondansetron Inj 2 Mg/Ml 2 Ml Vial) 4 mg IV NOW STA Stop: 04/05/24 15:50 Last Admin: 04/05/24 16:02 Dose: 4 mg Documented By: SHAVONNE Imaging Data Radiologist's Impression: Chest X-Ray 04/05/24 14:56 XR chest 1V portable HISTORY: 68 years-old Female Dyspnea COMPARISON: 11/01/2023 TECHNIQUE: AP view of the chest FINDINGS: Cardiac silhouette is enlarged. Pulmonary vascular congestion with mixed interstitial and alveolar opacities. No pneumothorax. Small pleural effusions. Severe pulmonary emphysema. Bones appear grossly intact. IMPRESSION: 1. Mild cardiomegaly with mixed interstitial and alveolar opacities suggestive of pulmonary edema versus multifocal pneumonia. 2. Small pleural effusions. 3. Severe emphysema. ACT 112: Negative or not required by law. The above report was generated using voice recognition software. It may contain grammatical, syntax or spelling errors. Electronically signed by: Landon Lechuga M.D. 04/05/2024 3:19 PM Discharge Plan Visit Data Chief Complaint: Shortness of Breath/Dyspnea Stated Complaint: SOB ,CHEST PRESSURE ED Provider: Idris Mosher Discharge Problem: Hypoxia Forms Stand Alone Forms: [employer] [facility] Prescriptions Prescriptions: No Action ipratropium-albuterol 0.5 mg-3 mg(2.5 mg base)/3 mL solution for nebulization 3 ml INH QID PRN (Reason: Shortness Of Breath) Qty: 360 5RF (DME) CPAP Machine Misc See Rx Instructions .MEDSUPPLY Qty: 1 0RF Rx Instructions: Auto-titration CPAP with pressure range between 5 cm H2O and 15 cm H2O with humidification. Lifetime need. (DME) CPAP Supplies Misc See Rx Instructions .MEDSUPPLY Qty: 1 0RF Rx Instructions: Refitting of the mask. G47.33 (DME) Portable Oxygen Misc See Rx Instructions .Route Qty: 1 0RF Rx Instructions: portable oxygen concentrator- 3LPM on exertion via n/c. SILVIA:99 Trelegy Ellipta 100-62.5-25 mcg blister with device 1 inh inhalation DAILY Qty: 28 7RF albuterol sulfate 90 mcg/actuation HFA aerosol inhaler 2 puff inhalation Q4H PRN (Reason: shortness of breath or wheezing) Qty: 8.5 3RF Rx Instructions: Generic for ProAir- Patient can not use Ventolin ergocalciferol (vitamin D2) 1,250 mcg (50,000 unit) capsule 1,250 mcg PO WK Rx Instructions: MONDAYS escitalopram oxalate [Lexapro] 10 mg tablet 15 mg PO QAM fexofenadine 180 mg Tablet 180 mg PO DAILY Rx Instructions: otc. unable to verify with pharmacy sodium chloride 7 % Solution For Nebulization 4 ml NEB BID PRN (Reason: chest congestion/chest mucous) Qty: 120 0RF Rx Instructions: mix the saline with a "duoneb" to administer pantoprazole 40 mg Tablet,Delayed Release (Dr/Ec) 40 mg PO BID Qty: 60 0RF prednisone 10 mg tablet 10 mg PO .daily as directed Qty: 17 0RF Rx Instructions: start 11/07/23, take w/ food. 4 tabs PO QD x 2 days; 3 tabs PO QD x 2 days; 2 tabs PO QD x 1 day; 1 tab PO QD x 1 day. pantoprazole [Protonix] 40 mg tablet,delayed release (DR/EC) 40 mg PO QAM Qty: 30 2RF valsartan 80 mg tablet 80 mg PO DAILY Referrals Referrals: Maya Weller, OTR [Primary Care Provider] -
--- NOTE | 2024-04-05 15:20 | XRay Report ---
XR chest 1V portable HISTORY: 68 years-old Female Dyspnea COMPARISON: 11/01/2023 TECHNIQUE: AP view of the chest FINDINGS: Cardiac silhouette is enlarged. Pulmonary vascular congestion with mixed interstitial and alveolar op acities. No pneumothorax. Small pleural effusions. Severe pulmonary emphysema. Bones appear grossly i ntact. IMPRESSION: 1. Mild cardiomegaly with mixed interstitial and alveolar opacities suggestive of pulmonary edema candace vianney multifocal pneumonia. 2. Small pleural effusions. 3. Severe emphysema. ACT 112: Negative or not required by law. The above report was generated using voice recognition software. It may contain grammatical, syntax o r spelling errors. Electronically signed by: Landon Lechuga M.D. 04/05/2024 3:19 PM
[2024-04-05 15:41] LABS: Base Excess VBG 0.6 mEq/L; HCO3 VBG 27 mmol/L; Oxygen Saturation VBG < 60.0 %; PCO2 VBG 47 mmHg (38-50); PO2 VBG 30 mmHg; pH VBG 7.36 (7.36-7.41)
[2024-04-05 15:49] LABS: Basophils # (auto) 0.06 K/uL (0.00-0.20); Basophils % (auto) 0.4 %; Eosinophils # (auto) 0.05 K/uL (0.00-0.50); Eosinophils % (auto) 0.3 %; Hematocrit (blood only) 27.9 % (37.0-47.0); Immature Granulocytes # (auto) 0.21 K/uL (0.01-0.20); Immature Granulocytes % (auto) 1.5 %; Lymphocytes # (auto) 0.66 K/uL (1.20-3.40); Lymphocytes % (auto) 4.6 %; Mean Corpuscular Hemoglobin 31.3 pg (25.0-34.0); Mean Corpuscular Hgb Conc 32.3 g/dL (32.0-36.0); Mean Corpuscular Volume 96.9 fL (80.0-100.0); Mean Platelet Volume 9.3 fL (9.4-12.4); Monocytes # (auto) 1.04 K/uL (0.11-0.59); Monocytes % (auto) 7.2 %; Neutrophils # (auto) 12.42 K/uL (1.40-6.50); Platelet Count 270 K/uL (130-400); RDW Coefficient of Variation 14.9 % (11.5-14.5); RDW Standard Deviation 53.3 fL (36.4-46.3); Red Blood Count 2.88 M/uL (4.20-5.40); White Blood Count 14.44 K/ul (4.8-10.8)
[2024-04-05 16:02] LABS: Albumin Globulin Ratio 1.8 (0.9-2); Albumin Level 3.6 gm/dl (3.4-5.0); BUN Creatinine Ratio 19.4 (10-20); Bilirubin,Total 0.6 mg/dl (0.2-1.0); Calcium 7.4 mg/dl (8.6-10.3); Creatinine Clr Calc Pharmacy 41.6 ml/min; Total Protein 5.6 gm/dl (6.0-8.3)
[2024-04-05] MEDS: MoRPHine SULFATE 4 MG/ML 1 ML CARP\\VIAL IV STA (16:02)
[2024-04-05] MEDS: ONDANSETRON INJ 2 MG/ML 2 ML VIAL IV STA (16:02)
[2024-04-05 16:09] LABS: Troponin I High Sensitivity 20.5 pg/ml (0-14)
[2024-04-05 16:14] LABS: INR 1.1 (0.9-1.1); Partial Thromboplastin Ratio 1.1; Partial Thromboplastin Time 30 Seconds (21-31); Prothrombin Time 11.6 Seconds (9.0-12.0)
[2024-04-05 16:36] LABS: Adenovirus PCR Not Detected (NotDetected); Bordetella parapertussis PCR Not Detected (NotDetected); Bordetella pertussis PCR Not Detected (NotDetected); Chlamydia pneumoniae PCR Not Detected (NotDetected); Coronavirus 229E PCR Not Detected (NotDetected); Coronavirus CoV-2 (COVID19)PCR Not Detected (NotDetected); Coronavirus HKU1 PCR Not Detected (NotDetected); Coronavirus NL63 PCR Not Detected (NotDetected); Coronavirus OC43PCR Not Detected (NotDetected); Human Metapneumovirus PCR Not Detected (NotDetected); Influenza A PCR Not Detected (NotDetected); Influenza B PCR Not Detected (NotDetected); Mycoplasma pneumoniae PCR Not Detected (NotDetected); Parainfluenza Virus 1 PCR Not Detected (NotDetected); Parainfluenza Virus 2 PCR Not Detected (NotDetected); Parainfluenza Virus 3 PCR Not Detected (NotDetected); Parainfluenza Virus 4 PCR Not Detected (NotDetected); Respiratory Syncytial VirusPCR Not Detected (NotDetected); Rhinovirus/Enterovirus PCR Not Detected (NotDetected)
[2024-04-05] MEDS: DOXYCYCLINE HYCLATE 100 MG in DEXTROSE 5% MINI-B 100 ML IV STA (17:31)
[2024-04-05] MEDS: CEFEPIME 1000MG 1,000 MG/10 ML SYR IV STA (17:31)
[2024-04-05] MEDS ORDERED: VANCOMYCIN CONSULT ACTIVE PRN (18:40)
--- NOTE | 2024-04-05 20:57 | Electrocardiogram Report ---
Test Reason : Blood Pressure : */* mmHG Vent. Rate : 99 BPM Atrial Rate : 99 BPM P-R Int : 118 ms QRS Dur : 66 ms QT Int : 354 ms P-R-T Axes : 64 37 63 degrees QTcB Int : 454 ms Normal sinus rhythm Nonspecific ST and T wave abnormality Abnormal ECG When compared with ECG of 01-Nov-2023 12:18, No significant change was found Confirmed by Marcello Rodríguez ([id number]) on 04/05/2024 8:57:36 PM Referred By: Confirmed By: Marcello Rodríguez
[2024-04-05] MEDS: VANCOMYCIN HCL 1,250 MG in SODIUM CHLORIDE 0.9% 500 ML IV ONE (21:44)
--- NOTE | 2024-04-05 22:23 | Hospitalist Consultation ---
Date of Consultation April 05, 2024 Assessment & Plan (1) Acute on chronic respiratory failure with hypoxia: (2) Multifocal pneumonia: (3) History of lung transplant: (4) Acute exacerbation of chronic obstructive pulmonary disease: Plan Acute on chronic respiratory failure with hypoxia/lung transplant recipient/multifocal pneumonia- Admit to progressive care unit service, will follow in the ED until transfer Coordination with [facility] transplant with the following recommendations: Vancomycin IV per pharmacokinetic monitoring Cefepime 1 g IV every 12 hours Doxycycline 100 mg IV every 12 hours DuoNebs every 2 hours as needed Follow sputum Gram stain and culture Continue routine immunosuppressives Hydrocortisone 100 mg IV every 8 hours to address adrenal insufficiency associated with prednisone use Elevated troponin- Initial troponin 20.5 with follow-up 23.9 with no acute EKG changes Likely supply/demand mismatch, recheck laboratories in the a.m. Check CBC with differential, chemistry profile, magnesium and troponin Acute kidney injury- Creatinine 1.24, with baseline 0.84 Hold valsartan no additional IV fluids Repeat laboratories in the a.m. Depression anxiety- Continue escitalopram GERD- Continue pantoprazole History of Present Illness Reason for Consultation: Medical management while in the emergency department waiting for transfer to [facility] transplant service Requesting Physician: Dr. Nunez Attending Physician: Dr. Nunez History of Present Illness The patient is a 68-year-old female status post lung transplant November 2023, who presented to the emergency department with 2 days of progressively worsening shortness of breath, dyspnea on exertion, mucus production, and requirement of nasal cannula 3 L of oxygen. She also complains of pain on the right side when she takes a deep breath or coughs. Chest x-ray performed showed a combination of pulmonary edema and multifocal pneumonia, with severe COPD, patient has been accepted for transfer to the lung transplant service. Allergies Allergy/AdvReac Type Severity Reaction Status Date / Time aspirin AdvReac Intermediate GI SYMPTOMS Verified 02/14/24 09:24 Home Medications Medication Instructions Recorded Confirmed Type CPAP Machine #1 ea 12/06/19 02/14/24 Rx CPAP Supplies #1 ea 05/11/21 02/14/24 Rx escitalopram oxalate 10 mg tablet 15 mg PO QAM 08/05/22 02/14/24 History (Lexapro) Portable Oxygen #1 ea 09/15/22 02/14/24 Rx ergocalciferol (vitamin D2) 1,250 1,250 mcg PO WK 03/26/23 02/14/24 History mcg (50,000 unit) capsule ipratropium 0.5 mg-albuterol 3 mg 3 ml inhalation QID PRN Shortness 06/08/23 02/14/24 Rx (2.5 mg base)/3 mL nebulization Of Breath #360 mL soln fexofenadine 180 mg tablet 180 mg PO DAILY 09/01/23 02/14/24 History valsartan 80 mg tablet 80 mg PO DAILY 09/22/23 02/14/24 History pantoprazole 40 mg tablet,delayed 40 mg PO BID #60 tabs 11/06/23 02/14/24 Rx release pantoprazole 40 mg tablet,delayed 40 mg PO QAM #30 tabs 11/06/23 02/14/24 Rx release (Protonix) prednisone 10 mg tablet 10 mg PO .daily as directed #17 11/06/23 02/14/24 Rx tabs sodium chloride 7 % for 4 ml NEB BID PRN chest 11/06/23 02/14/24 Rx nebulization congestion/chest mucous #120 mL albuterol sulfate 90 mcg/actuation 2 puff inhalation Q4H PRN 02/16/24 02/16/24 Rx aerosol inhaler shortness of breath or wheezing #8.5 grams fluticasone fur. 100 mcg-umeclid 1 inh inhalation DAILY #28 ea 02/16/24 02/16/24 Rx 62.5 mcg-vilant 25 mcg inhalat.powder (Trelegy Ellipta) Patient History Medical History Family history of paroxysmal atrial tachycardia History of COVID-19 (~2021) x3 sob, cough, fatigue; resolved History of recent pneumonia (~09/2022) Surgical History Hx of cardiac catheterization (~2022) Had in [place] as part of work up for [facility] to get on Lung Transplant list, no stents Hx of colonoscopy with polypectomy Hx of bilateral cataract extraction History of partial hysterectomy History of carpal tunnel surgery of right wrist History of broken collarbone sx to repair History of tooth extraction all teeth H/O partial thyroidectomy (~1989) d/t hemorrhaging?--unknown cause, no meds Family History Mother , from ovarian cancer Cancer Ovarian Sister Cancer Ovarian Father COPD (chronic obstructive pulmonary disease) Other No family history of adverse response to anesthesia Social History Smoking Status: Former smoker Tobacco Type: Cigarettes Age Started Using Tobacco: 17; Age Quit Using Tobacco: 64; packs per day: 1; Cigarettes Per Day: Less than a packet; Second Hand Exposure: No; Do You Dip or Chew Tobacco: No; Hx Alcohol Use: No Hx Substance Use: No Preferred Language: German 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 Ability: Effective Feed Adviser 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 Beliefs That Will Affect Care: None marital status: Current Living Situation: Family Current Living Situation Comment: Lives with Daughter Feels Safe at Home: Yes Assistive Devices: Oxygen - Continuous, Walker and Wheelchair Review of Systems Review of Systems: The patient denies palpitations, lower extremity swelling, sore throat, fevers, chills, sweats,nausea, vomiting, diarrhea , constipation, abdominal pain, pelvic pain, blood in urine or stool, dysuria, urinary frequency or urgency, headache, memory loss, loss of consciousness, rash, abnormal bruising or bleeding, imbalance, focal or generalized weakness, numbness or tingling in arms or legs, back or neck pain, or night sweats. The review of systems is otherwise negative other than for that already noted above, and at least 10 systems have been reviewed. Physical Exam Physical Exam: The patient is awake, alert and oriented 3, well developed and well nourished, normocephalic and atraumatic, lying in bed and in no acute distress. HEENT--PERRL, EOMI, mucous membranes and oropharynx normal Neck--supple. No JVD. No bruits. Thyroid normal, trachea midline, no adenopathy. Heart--normal S1 and S2. No murmurs, rubs or gallops. Lungs--crackles at the bases with coarse breath sounds right greater than left. No respiratory distress, no accessory muscle use. Abdomen--normal bowel sounds and soft. Nontender. Nondistended Extremities--no cyanosis or clubbing. No edema. Dermatologic--normal skin turgor, normal color, no abnormal lymph nodes, no rash. Neurologic--cranial nerves II through XII grossly intact. Rheumatologic--normal range of motion. Psychiatric--normal affect. Results & Data Results & Data Vital Signs (Past 12 Hours) Vital Signs Temp Pulse Resp BP Pulse Ox O2 Del Method O2 Flow Rate 04/05/24 21:23 82 04/05/24 21:03 83 17 114/60 99 04/05/24 20:30 84 19 118/69 98 04/05/24 20:00 125/84 04/05/24 19:57 89 22 125/84 94 04/05/24 19:30 83 20 114/71 99 04/05/24 19:18 83 19 106/68 98 04/05/24 18:36 86 19 104/70 97 04/05/24 17:25 86 04/05/24 15:30 94 H 26 H 128/74 98 04/05/24 15:00 94 H 27 H 118/76 98 04/05/24 14:56 Nasal Cannula 3 04/05/24 14:30 132/76 04/05/24 14:30 93 H 27 H 132/76 98 04/05/24 14:00 95 H 30 H 134/78 98 04/05/24 13:33 100 H 24 146/81 H 95 Nasal Cannula 3 04/05/24 13:24 99 H 04/05/24 13:19 134/80 04/05/24 12:56 Nasal Cannula 3 04/05/24 12:56 37.7 C H 19 134/80 93 Nasal Cannula 3 Laboratory Results Laboratory Results WBC 14.44 K/ul (4.8-10.8) H 04/05/24 15:32 RBC 2.88 M/uL (4.20-5.40) L 04/05/24 15:32 Hgb 9.0 g/dl (12.0-16.0) L 04/05/24 15:32 Hct 27.9 % (37.0-47.0) L 04/05/24 15:32 MCV 96.9 fL (80.0-100.0) 04/05/24 15:32 MCH 31.3 pg (25.0-34.0) 04/05/24 15:32 MCHC 32.3 g/dL (32.0-36.0) 04/05/24 15:32 RDW Std Deviation 53.3 fL (36.4-46.3) H 04/05/24 15:32 RDW Coeff of Audrey 14.9 % (11.5-14.5) H 04/05/24 15:32 Plt Count 270 K/uL (130-400) 04/05/24 15:32 MPV 9.3 fL (9.4-12.4) L 04/05/24 15:32 Immature Gran % (Auto) 1.5 % 04/05/24 15:32 Neut % (Auto) 86.0 % 04/05/24 15:32 Lymph % (Auto) 4.6 % 04/05/24 15:32 [place] % (Auto) 7.2 % 04/05/24 15:32 Eos % (Auto) 0.3 % 04/05/24 15:32 Baso % (Auto) 0.4 % 04/05/24 15:32 Neut # (Auto) 12.42 K/uL (1.40-6.50) H 04/05/24 15:32 Lymph # (Auto) 0.66 K/uL (1.20-3.40) L 04/05/24 15:32 [place] # (Auto) 1.04 K/uL (0.11-0.59) H 04/05/24 15:32 Eos # (Auto) 0.05 K/uL (0.00-0.50) 04/05/24 15:32 Baso # (Auto) 0.06 K/uL (0.00-0.20) 04/05/24 15:32 Immature Gran # (Auto) 0.21 K/uL (0.01-0.20) H 04/05/24 15:32 PT 11.6 Seconds (9.0-12.0) 04/05/24 15:32 INR 1.1 (0.9-1.1) 04/05/24 15:32 APTT 30 Seconds (21-31) 04/05/24 15:32 PTT Ratio 1.1 04/05/24 15:32 VBG pH 7.36 (7.36-7.41) 04/05/24 15:32 VBG pCO2 47 mmHg (38-50) 04/05/24 15:32 VBG pO2 30 mmHg 04/05/24 15:32 VBG HCO3 27 mmol/L 04/05/24 15:32 VBG O2 Saturation < 60.0 % 04/05/24 15:32 VBG Base Excess 0.6 mEq/L 04/05/24 15:32 Sodium 141 mmol/L (136-145) 04/05/24 15:32 Potassium 4.0 mmol/L (3.5-5.1) 04/05/24 15:32 Chloride 108 mmol/L (98-107) H 04/05/24 15:32 Carbon Dioxide 24 mmol/L (21-32) 04/05/24 15:32 Anion Gap 9 (3-11) 04/05/24 15:32 BUN 24 mg/dl (6-23) H 04/05/24 15:32 Creatinine 1.24 mg/dl (0.6-1.2) H 04/05/24 15:32 Est Cr Clr Drug Dosing 41.6 ml/min 04/05/24 15:32 eGFR 47.11 04/05/24 15:32 BUN/Creatinine Ratio 19.4 (10-20) 04/05/24 15:32 Glucose 62 mg/dl (70-99(Fasting)) L 04/05/24 15:32 POC Glucose 74 mg/dl (70-99) 04/05/24 13:17 Calcium 7.4 mg/dl (8.6-10.3) L 04/05/24 15:32 Total Bilirubin 0.6 mg/dl (0.2-1.0) 04/05/24 15:32 AST 20 U/L (13-39) 04/05/24 15:32 ALT 14 U/L (7-52) 04/05/24 15:32 Alkaline Phosphatase 142 U/L (34-104) H 04/05/24 15:32 Troponin I High Sens 23.9 pg/ml (0-14) H 04/05/24 18:51 B-Natriuretic Peptide 448 pg/ml (0-100) H 04/05/24 15:32 Total Protein 5.6 gm/dl (6.0-8.3) L 04/05/24 15:32 Albumin 3.6 gm/dl (3.4-5.0) 04/05/24 15:32 Globulin 2.0 gm/dl (2.5-4.0) L 04/05/24 15:32 Albumin/Globulin Ratio 1.8 (0.9-2) 04/05/24 15:32 Procalcitonin 2.38 ng/ml (0-0.5) H 04/05/24 15:32 Adenovirus (PCR) Not Detected (NotDetected) 04/05/24 15:42 B. pertussis DNA (PCR) Not Detected (NotDetected) 04/05/24 15:42 B.parapertussis DNA PCR Not Detected (NotDetected) 04/05/24 15:42 C. pneumoniae DNA (PCR) Not Detected (NotDetected) 04/05/24 15:42 Coronavirus OC43 (PCR) Not Detected (NotDetected) 04/05/24 15:42 Coronavirus HKU1 (PCR) Not Detected (NotDetected) 04/05/24 15:42 Coronavirus 229E (PCR) Not Detected (NotDetected) 04/05/24 15:42 SARS-CoV-2 (PCR) Not Detected (NotDetected) 04/05/24 15:42 Coronavirus NL63 (PCR) Not Detected (NotDetected) 04/05/24 15:42 Human Metapneumovir PCR Not Detected (NotDetected) 04/05/24 15:42 Influenza Type A (PCR) Not Detected (NotDetected) 04/05/24 15:42 Influenza Type B (PCR) Not Detected (NotDetected) 04/05/24 15:42 M. pneumoniae (PCR) Not Detected (NotDetected) 04/05/24 15:42 Parainfluenza 1 (PCR) Not Detected (NotDetected) 04/05/24 15:42 Parainfluenza 2 (PCR) Not Detected (NotDetected) 04/05/24 15:42 Parainfluenza 3 (PCR) Not Detected (NotDetected) 04/05/24 15:42 Parainfluenza 4 (PCR) Not Detected (NotDetected) 04/05/24 15:42 RSV (PCR) Not Detected (NotDetected) 04/05/24 15:42 Entero/Rhino (PCR) Not Detected (NotDetected) 04/05/24 15:42 Impressions Chest X-Ray 04/05/24 14:56 XR chest 1V portable HISTORY: 68 years-old Female Dyspnea COMPARISON: 11/01/2023 TECHNIQUE: AP view of the chest FINDINGS: Cardiac silhouette is enlarged. Pulmonary vascular congestion with mixed interstitial and alveolar opacities. No pneumothorax. Small pleural effusions. Severe pulmonary emphysema. Bones appear grossly intact. IMPRESSION: 1. Mild cardiomegaly with mixed interstitial and alveolar opacities suggestive of pulmonary edema versus multifocal pneumonia. 2. Small pleural effusions. 3. Severe emphysema. ACT 112: Negative or not required by law. The above report was generated using voice recognition software. It may contain grammatical, syntax or spelling errors. Electronically signed by: Landon Lechuga M.D. 04/05/2024 3:19 PM PG Care Time/CCT Total # of Minutes Spent Total Time Spent with Patient: Total time spent is greater than 50% in coordination of care (as documented) at patient's floor/unit and/or counseling patient: Coding Level of Care Code 04465 IN/OBS CONSULT LVL 4,60M Diagnoses Acute on chronic respiratory failure with hypoxia J96.21 Multifocal pneumonia J18.9 History of lung transplant Z94.2 Acute exacerbation of chronic obstructive pulmonary disease J44.1
--- NOTE | 2024-04-06 01:46 | Emergency Department Note ---
ED Visit Note patient signed out to me by Dr. VALDEZ. Patient currently has history of [facility]. Currently pending transfer for multifocal pneumonia. Patient would have antibiotics. lung transplant. Pending bed placement and transportation There is no bed available tonight, will may be tomorrow at this point. Discussed with Dr. Watkins for ED consultation while patient is down to the emergency department awaiting bed. No acute events during my shift. Patient care signed to oncoming physician, Dr. Torres .
--- OUTSIDE RECORDS SUMMARY | 2024-04-06 03:08 | External Medical Summary ---
Author Name Unknown Address Unknown Organization K09:[facility] [place] [address] Laboratory Report Ordering Provider Test Date Status SERGEI WELCH 02/21/2024 07:12:24 Final Observation Date Value Abnormality Reference (Units ) Status BUN 02/21/2024 07:12:24 40 Above high normal 6-20 (mg/dL) Final Creatinine 02/21/2024 07:12:24 1.6 Above high normal 0.5-1.0 (mg/dL) Final Glomerular filtration rate/1.73 sq M.predicted [Volume Rate/Area] in Serum, Plasma or Blood by Creatinine-based formula (CKD-EPI) 02/21/2024 07:12:24 34 Below low normal >=60 (mL/min) Final eGFR is calculated based on the CKD-EPI 2020 equation. Sodium 02/21/2024 07:12:24 141 135-146 (m mol/L) Final Potassium 02/21/2024 07:12:24 4.9 3.5-5.1 (m mol/L) Final Cl 02/21/2024 07:12:24 110 Above high normal 98 -107 (mmol/L) Final CO2 02/21/2024 07:12:24 19 Below low normal 22- 32 (mmol/L) Final Anion gap 02/21/2024 07:12:24 12 7-15 (mmol /L) Final Glucose 02/21/2024 07:12:24 76 70-120 (mg /dL) Final Calcium 02/21/2024 07:12:24 8.6 8.4-10.2 ( mg/dL) Final Performing Location [facility] [place] [place] [address]
--- OUTSIDE RECORDS SUMMARY | 2024-04-06 03:08 | External Medical Summary ---
Author Name Unknown Address Unknown Organization K09:[facility] [address] Laboratory Report Ordering Provider Test Date Status SERGEI WELCH 02/21/2024 07:12:24 Final Observation Date Value Abnormality Reference (Units ) Status WBC, Total 02/21/2024 07:12:24 2.19 Below low normal 4. 00-10.80 (K/uL) Final RBC 02/21/2024 07:12:24 2.58 3.85-5.15 (M/uL) Final Hemoglobin 02/21/2024 07:12:24 8.2 Below low normal 12 .0-15.3 (g/dL) Final HCT 02/21/2024 07:12:24 25.7 Below low normal 36. 0-45.2 (%) Final MCV 02/21/2024 07:12:24 99.6 81.5-97.5 (fL) Final MCH 02/21/2024 07:12:24 31.8 27.0-34.0 (pg) Final MCHC 02/21/2024 07:12:24 31.9 32.0-36.0 (g/dL) Final RDW 02/21/2024 07:12:24 16.5 11.5-15.5 (%) Final Platelets 02/21/2024 07:12:24 274 140-400 (K /uL) Final MPV 02/21/2024 07:12:24 9.9 6.6-11.1 ( fL) Final Performing Location [facility] [place] [address]
[2024-04-06] MEDS ORDERED: CEFEPIME 1000MG 1,000 MG/10 ML SYR IV SCH (06:15)
--- NOTE | 2024-04-06 06:20 | Emergency Department Note ---
ED Visit Note Date and Time: 04/06/2024 100 Interval History: Sign out received from Dr. Kilgore who reviewed details of the encounter. Patient was pending transfer to [facility]. Summary: Patient was re-evaluated overnight and remains hemodynamically stable. She was evaluated by the [facility] Hospitalist group and had a medicine consult. Patient is a lung transplant patient with multifocal pneumonia. She is pending transport back to [facility]. Her care is currently being managed by the [place] [facility]ist group. Disposition: Currently we are awaiting bed placement. The case will be signed out to the oncoming physician-Dr. Rashid .
--- NOTE | 2024-04-06 07:17 | Emergency Department Note ---
ED Visit Note 0716: Signout from Dr. Ramon. 68-year-old female with history of lung transplant and multifocal pneumonia. Awaiting transfer to [facility] here she had her transplant done. Medications and orders have been written by internal medicine who have been consulted on the patient. Awaiting transport. 0905: A.m. labs by hospitalist team today showed a magnesium of 0.9 and calcium of 6.7. Magnesium and calcium repletion started in the emergency department.Spoke with [place] transfer center and Dr. Mayer lung transplant team. He states that the patient should be continued on cefepime, vancomycin and doxycycline. He recommends holding CellCept and continue Prograf. He recommends prednisone 5 mg p.o. daily for the patient. Dr. Mayer and transfer center stated that there is no bed available in the foreseeable future and they are not sure when the patient will get a bed but the patient is still on the transfer list and they do the want the patient transferred to [place]. Both Dr. Mayer and transfer center at [place] state they are okay with the patient being admitted to the inpatient team since it is unknown when a bed will become available at [place], they stated when the bed is available they will contact [facility] and have the patient transferred there. 0934: Discussed with Dr. Farmer and he will evaluate the patient for admission. .
[2024-04-06 07:43] LABS: Basophils # (auto) 0.08 K/uL (0.00-0.20); Basophils % (auto) 0.6 %; Eosinophils # (auto) 0.22 K/uL (0.00-0.50); Eosinophils % (auto) 1.7 %; Hematocrit (blood only) 24.8 % (37.0-47.0); Hemoglobin 7.9 g/dl (12.0-16.0); Immature Granulocytes # (auto) 0.11 K/uL (0.01-0.20); Immature Granulocytes % (auto) 0.8 %; Lymphocytes # (auto) 0.86 K/uL (1.20-3.40); Lymphocytes % (auto) 6.6 %; Mean Corpuscular Hemoglobin 31.1 pg (25.0-34.0); Mean Corpuscular Hgb Conc 31.9 g/dL (32.0-36.0); Mean Corpuscular Volume 97.6 fL (80.0-100.0); Mean Platelet Volume 9.5 fL (9.4-12.4); Monocytes # (auto) 0.94 K/uL (0.11-0.59); Monocytes % (auto) 7.2 %; Neutrophils # (auto) 10.89 K/uL (1.40-6.50); Neutrophils % (auto) 83.1 %; Platelet Count 221 K/uL (130-400); RDW Standard Deviation 53.3 fL (36.4-46.3); Red Blood Count 2.54 M/uL (4.20-5.40)
[2024-04-06 07:52] LABS: Calcium 6.7 mg/dl (8.6-10.3); Potassium 4.3 mmol/L (3.5-5.1)
[2024-04-06] MEDS: HYDROmorphone INJ 0.5 MG/0.5 ML SYR IV PRN (07:55)
[2024-04-06 07:58] LABS: BUN Creatinine Ratio 19.4 (10-20); Creatinine Clr Calc Pharmacy 37.1 ml/min
[2024-04-06 08:00] LABS: Albumin Globulin Ratio 1.5 (0.9-2); Bilirubin,Total 0.4 mg/dl (0.2-1.0); Magnesium 0.9 mg/dl (1.7-2.4)
[2024-04-06 08:02] LABS: Troponin I High Sensitivity 19.4 pg/ml (0-14)
[2024-04-06 08:30] LABS: Anisocytosis Present; Polychromasia 1+; Schistocytes 1+; Tear Drop Cells 1+
[2024-04-06] MEDS ORDERED: NON-FORMULARY MEDICATION (Fluticasone-Umeclidin-Vilanter [Trelegy Ellipta] 100-62.5-25 mcg INH SCH (09:00)
[2024-04-06] MEDS ORDERED: PANTOprazole 40 MG TAB PO SCH (09:00)
--- NOTE | 2024-04-06 09:54 | History & Physical Report ---
Date of Service April 06, 2024 Assessment & Plan (1) Multifocal pneumonia: Plan: Patient presented on 04/05 for worsening TAPIA and productive cough x 2 days Leukocytosis of 14.44 with neutral predominance; PCT elevated at 2.38; febrile at 37.7 C on arrival BioFire negative CXR on arrival revealed mixed interstitial and alveolar opacities suggestive of pulmonary edema versus multifocal pneumonia ED spoke with [facility] (attending ic designer custom, Dr. Ramon) as patient had recent lung transplant in November 2023 Patient is currently accepted and awaiting transfer to [facility] Due to inclement weather and bed availability, transfer may not be available for the next 24-48h Admit to PCU telemetry IV vancomycin IV cefepime 1 g q12h IV doxycycline 100 mg q12h DuoNebs q2h PRN Guaifenesin 600 mg p.o. q12h (2) History of lung transplant: Plan: Single left-sided lung transplant at [facility] on 12/09/2023 Continue voriconazole, atovaquone, and prednisone IV hydrocortisone 100 mg q8h to address adrenal insufficiency in the setting of prednisone use Per ED conversation with [facility] (Dr. Mayer lung transplant team) on the morning of 04/06: Continue current abx Continue tacrolimus Hold mycophenolate for now (3) Chronic respiratory failure with hypoxia: Plan: Patient is normally on 3L NC at baseline Continuous pulse oximetry Titrate supplemental oxygen to maintain SpO2 89-92% (4) Chest pain: Plan: Mildly elevated on arrival; trend 20-->23-->19 Patient does endorse chest pain 15 out of 10 at time of admission (similar to how it has been over the past 2 days); pleuritic Repeat EKG and troponin ordered Suspect cause of chest pain is MSK v multifocal pneumonia on arrival However DDx includes pulmonary embolism (among other etiologies) Given DUNG and non-tachycardic on arrival, will temporarily defer chest CTA as there is a cause for her chest pain (PNA) UPDATE: patient's daughter confirms she is currently on Eliquis 5mg BID; lower suspicion for PE; continue Eliquis Lower suspicion for ACS given hours of chest pain without significantly elevated troponin, and pain is directly reproducible with palpation Last echocardiogram on 10/25/2022 revealed LVEF at 60 to 65% Lidocaine patch application Continue dilaudid 0.25mg IV q3h as needed Continuous telemetry monitoring for now (5) Anemia: Plan: Hgb 9.0-->7.9 on arrival Clinically no signs of active bleeding on physical exam Trend CBC (6) Hypomagnesemia: Plan: Magnesium 0.9 at time of hospital admission Hold PPI for now Continue repletion (7) Acute kidney injury: Plan: BUN 27, creatinine 1.39 (baseline around 0.84) Avoid nephrotoxic agents where possible Hold valsartan Trend BMP (8) Hypocalcemia: Plan: CA 6.7 on admission; Corrected Ca for albumin: 7.5 Calcium gluconate 1000 mg IV x 1 Trend BMP (9) Prediabetes: Plan: Last A1c 6.4% on 11/04/2023 Repeat A1c ordered Daughter at bedside reports that she has recently been on metformin and Lantus 15u HS Loose SSI Lantus 5u BID while inpatient (dose-reduced in the setting of DUNG and poor p.o. intake) BSG ACHS for now T2DM diet Adjust regimen as needed Plan Disposition: Admit to PCU telemetry Full code T2DM, heart healthy diet VTE PPx: Eliquis History of Present Illness Chief Complaint: SOB/dyspnea Primary Care Provider: JAXON Valles Masha is a 68-year-old female with PMH of single left-sided lung transplant (12/09/2023), COPD, multiple pulmonary nodules, anxiety, depression, ALHAJI, paroxysmal atrial fibrillation, and chronic respiratory failure with hypoxia and hypercapnia. She presented on 04/05 for worsening TAPIA x 2 days. CXR on arrival revealed mixed interstitial and alveolar opacities suggestive of pulmonary edema vs multifocal pneumonia. At time of consult for admission, patient is currently pending transfer to [facility] where her lung transplant took place. On admission, patient is hypertensive at 160/87 and SpO2 is 95% on 3L NC. Patient endorses 15 out of 10 chest pain located substernally. She characterizes it as a sharp stabbing pain. No radiation to the back, shoulders, neck, or arms. She reports that she has had this pain over the past couple days. It is pleuritic in nature. Reproducible on palpation. No alleviating or exacerbating symptoms identified, but she does report that pain medicine in the ED has been helping. Patient denies any recent injuries to her chest wall. Additionally, she does have +1 pitting edema and swelling in her lower extremities bilaterally x 3 days; nonerythematous. No prior history of DVT/PE. She does report she is currently on a blood thinner. She reports her daughter does help to manage medicine at home. Patient lives at home with her sister. No PMH of [place], heart stents, or CVA to her knowledge. Patient reports both SOB at rest and with exertion. She has been coughing up yellow sputum over the past several days. No hemoptysis. She is a former tobacco cigarette smoker but quit several years ago. No recent alcohol use. She ambulates with a walker as needed. ED course: Cefepime 2000 mg IV Vancomycin 1250 mg IV Doxycycline 100 mg IV Morphine sulfate 4 mg IV Zofran 4 mg IV ROS: Patient endorses fever at home (unsure how high this got as she did not take her temperature), chills, night sweats, mild headache, chest pain, pleuritic CP, productive cough (yellow sputum production), nausea, vomiting, and leg swelling x 3 days. Patient denies dizziness, lightheadedness, hemoptysis, chest palpitations, abdominal pain, diarrhea, changes in urinary bowel habits, burning with urination, or redness/pain in the lower extremities bilaterally. Spoke to patient's daughter (Marycruz) at bedside and provided update regarding labs/imaging/admission status. Patient's daughter does confirm that the patient is on Eliquis 5 mg p.o. twice daily which was started shortly after her lung transplant. Daughter also reports that she takes Lantus 15u HS for diabetes. Daughter is currently working to obtain an up-to-date medication list. Allergies Allergy/AdvReac Type Severity Reaction Status Date / Time aspirin AdvReac Intermediate GI SYMPTOMS Verified 02/14/24 09:24 Home Medications Medication Instructions Recorded Confirmed Type CPAP Machine #1 ea 12/06/19 02/14/24 Rx CPAP Supplies #1 ea 05/11/21 02/14/24 Rx escitalopram oxalate 10 mg tablet 15 mg PO QAM 08/05/22 02/14/24 History (Lexapro) Portable Oxygen #1 ea 09/15/22 02/14/24 Rx ergocalciferol (vitamin D2) 1,250 1,250 mcg PO WK 03/26/23 02/14/24 History mcg (50,000 unit) capsule ipratropium 0.5 mg-albuterol 3 mg 3 ml inhalation QID PRN Shortness 06/08/23 02/14/24 Rx (2.5 mg base)/3 mL nebulization Of Breath #360 mL soln fexofenadine 180 mg tablet 180 mg PO DAILY 09/01/23 02/14/24 History valsartan 80 mg tablet 80 mg PO DAILY 09/22/23 02/14/24 History pantoprazole 40 mg tablet,delayed 40 mg PO BID #60 tabs 11/06/23 02/14/24 Rx release pantoprazole 40 mg tablet,delayed 40 mg PO QAM #30 tabs 11/06/23 02/14/24 Rx release (Protonix) prednisone 10 mg tablet 10 mg PO .daily as directed #17 11/06/23 02/14/24 Rx tabs sodium chloride 7 % for 4 ml NEB BID PRN chest 11/06/23 02/14/24 Rx nebulization congestion/chest mucous #120 mL albuterol sulfate 90 mcg/actuation 2 puff inhalation Q4H PRN 02/16/24 02/16/24 Rx aerosol inhaler shortness of breath or wheezing #8.5 grams fluticasone fur. 100 mcg-umeclid 1 inh inhalation DAILY #28 ea 02/16/24 02/16/24 Rx 62.5 mcg-vilant 25 mcg inhalat.powder (Trelegy Ellipta) Past Med/Surg History Problem List (Updated 04/06/24 @ 10:40 by Rodrigue Faulkner PA-C) Hypocalcemia Elevated troponin Acute kidney injury Hypomagnesemia Anemia History of lung transplant Multifocal pneumonia Hypoxia (Acute) Lung transplant recipient Prediabetes Hyperglycemia History of peptic ulcer disease Shortness of breath (Acute) Acute exacerbation of chronic obstructive pulmonary disease (Acute) Hypoxia (Acute) Failure of outpatient treatment (Acute) Acute exacerbation of chronic obstructive pulmonary disease (COPD) (Acute) Acute and chronic respiratory failure (Acute) Acute pericardial effusion (Acute) Acute exacerbation of chronic obstructive pulmonary disease (Acute) Lower back pain Goals of care, counseling/discussion Palliative care encounter Pneumonia (Acute) Acute respiratory failure with hypoxia and hypercapnia Failure of outpatient treatment (Acute) Paroxysmal atrial tachycardia Leukocytosis Acute exacerbation of chronic obstructive pulmonary disease (Acute) SOB (shortness of breath) (Acute) Acid reflux Influenza A (Acute) Acute respiratory failure with hypercapnia COVID-19 (Acute) Chest pain (Acute) Ex-smoker COPD (chronic obstructive pulmonary disease) (Acute) Chronic respiratory failure with hypoxia (Acute) Dyspnea Cough Fever Acute on chronic respiratory failure with hypoxia (Acute) Dysfunction of both eustachian tubes Acute respiratory failure with hypoxia Paroxysmal atrial tachycardia Acute dyspnea (Acute) History of tobacco use Lung transplant candidate Sacroiliitis Multiple pulmonary nodules no biopsies, monitored COPD exacerbation (Acute) [facility] 03/2023 Chronic respiratory failure SOB (shortness of breath) (Acute) "all the time" Anxiety with depression Chronic obstructive pulmonary disease with hypoxia 3L O2 ri, [facility] Pul Dr. Dhillon Sleep apnea, obstructive (Chronic) CPAP Medical History Family history of paroxysmal atrial tachycardia History of COVID-19 (~2021) x3 sob, cough, fatigue; resolved History of recent pneumonia (~09/2022) Surgical History Hx of cardiac catheterization (~2022) Had in [place] as part of work up for [facility] to get on Lung Transplant list, no stents Hx of colonoscopy with polypectomy Hx of bilateral cataract extraction History of partial hysterectomy History of carpal tunnel surgery of right wrist History of broken collarbone sx to repair History of tooth extraction all teeth H/O partial thyroidectomy (~1989) d/t hemorrhaging?--unknown cause, no meds Family History Mother , from ovarian cancer Cancer Ovarian Sister Cancer Ovarian Father COPD (chronic obstructive pulmonary disease) Other No family history of adverse response to anesthesia Social History Smoking Status: Former smoker Tobacco Type: Cigarettes Age Started Using Tobacco: 17; Age Quit Using Tobacco: 64; packs per day: 1; Cigarettes Per Day: Less than a packet; Second Hand Exposure: No; Do You Dip or Chew Tobacco: No; Hx Alcohol Use: No Hx Substance Use: No Preferred Language: Slovak 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 Ability: Effective Deaf And Hard Of Hearing Teacher 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 Beliefs That Will Affect Care: None marital status: Current Living Situation: Family Current Living Situation Comment: Lives with Daughter Feels Safe at Home: Yes Assistive Devices: Oxygen - Continuous, Walker and Wheelchair Review of Systems Review of Systems: See HPI above Physical Exam Physical Exam: General: Acute physical distress secondary to chest pain; anxious; non-toxic appearing; well-nourished; cooperative; SpO2 95% on 3L NC HEENT: normocephalic, atraumatic; no scleral icterus; PERRLA; vision and hearing grossly intact Neck: supple; trachea midline Skin: warm, dry without signs of tenting; no cyanosis; no rashes, bruising, lesions, or erythema noted CV: chest wall is reproducible with palpation of the sternum; no rashes or bruising appreciated on the chest wall or flanks bilaterally; RRR; S1/S2 normal; no murmurs/rubs/gallops; pulses intact and symmetric at radial, DP, and PT Lungs: Mild respiratory distress; symmetrical chest wall expansion; clear breath sounds across all lung wharton w/o adventitious sounds; no wheezing ABD: Soft, NTP; BS present; no rebound/guarding; no distention MSK: no tics or fasciculations; +1 pitting edema in the lower EXTR bilaterally extending up to the mid calf, nonerythematous Neuro: A&Ox3; normal mood and affect; fluent speech; no focal deficits; sensation grossly intact in the LEs b/l Results & Data Results & Data Vital Signs (Past 12 Hours) Vital Signs Temp Pulse Resp BP Pulse Ox O2 Del Method O2 Flow Rate 04/06/24 09:31 83 04/06/24 08:00 87 22 160/87 H 95 Nasal Cannula 3 04/06/24 07:00 84 24 165/82 H 96 Nasal Cannula 3 04/06/24 06:30 85 24 150/84 H 97 Nasal Cannula 3 04/06/24 06:12 36.9 C 04/06/24 05:27 83 04/06/24 05:06 84 22 144/84 H 94 Nasal Cannula 3 04/06/24 04:09 86 24 152/87 H 94 04/06/24 02:00 78 19 130/75 98 04/06/24 01:39 78 17 133/80 99 04/06/24 01:26 77 04/06/24 01:06 79 19 126/81 99 04/06/24 00:06 84 24 99 Nasal Cannula 5 04/06/24 00:00 120/73 04/05/24 22:36 80 22 121/69 99 Laboratory Results Abnormal lab results 04/05/24 04/05/24 04/06/24 Range/Units 15:32 18:51 07:18 WBC 14.44 H 13.10 H (4.8-10.8) K/ul RBC 2.88 L 2.54 L (4.20-5.40) M/uL Hgb 9.0 L 7.9 L (12.0-16.0) g/dl Hct 27.9 L 24.8 L (37.0-47.0) % MCHC 31.9 L (32.0-36.0) g/dL RDW Std Deviation 53.3 H 53.3 H (36.4-46.3) fL RDW Coeff of Audrey 14.9 H 15.0 H (11.5-14.5) % MPV 9.3 L (9.4-12.4) fL Neut # (Auto) 12.42 H 10.89 H (1.40-6.50) K/uL Lymph # (Auto) 0.66 L 0.86 L (1.20-3.40) K/uL Branch # (Auto) 1.04 H 0.94 H (0.11-0.59) K/uL Immature Gran # (Auto) 0.21 H (0.01-0.20) K/uL Chloride 108 H 109 H (98-107) mmol/L Carbon Dioxide 18 L (21-32) mmol/L BUN 24 H 27 H (6-23) mg/dl Creatinine 1.24 H 1.39 H (0.6-1.2) mg/dl Glucose 62 L 64 L (70-99(Fasting)) mg/dl Calcium 7.4 L 6.7 L (8.6-10.3) mg/dl Magnesium 0.9 L* (1.7-2.4) mg/dl Alkaline Phosphatase 142 H 130 H (34-104) U/L Troponin I High Sens 20.5 H 23.9 H 19.4 H D (0-14) pg/ml B-Natriuretic Peptide 448 H (0-100) pg/ml Total Protein 5.6 L 5.0 L (6.0-8.3) gm/dl Albumin 3.0 L (3.4-5.0) gm/dl Globulin 2.0 L 2.0 L (2.5-4.0) gm/dl Procalcitonin 2.38 H (0-0.5) ng/ml Diagnostic Findings Chest X-Ray 04/05/24 14:56 XR chest 1V portable HISTORY: 68 years-old Female Dyspnea COMPARISON: 11/01/2023 TECHNIQUE: AP view of the chest FINDINGS: Cardiac silhouette is enlarged. Pulmonary vascular congestion with mixed interstitial and alveolar opacities. No pneumothorax. Small pleural effusions. Severe pulmonary emphysema. Bones appear grossly intact. IMPRESSION: 1. Mild cardiomegaly with mixed interstitial and alveolar opacities suggestive of pulmonary edema versus multifocal pneumonia. 2. Small pleural effusions. 3. Severe emphysema. ACT 112: Negative or not required by law. The above report was generated using voice recognition software. It may contain grammatical, syntax or spelling errors. Electronically signed by: Landon Lechuga M.D. 04/05/2024 3:19 PM ECG Additional Comments: ECG revealed NSR at 99 bpm; QTc 454 Code Status & VTE Plan Code Status Full code VTE Prophylaxis Plan VTE Prophylaxis will be ordered: Yes Supervising Physician Co-Signing Physician Notes Patient seen and examined, chart reviewed, case discussed with Rodrigue Faulkner PA-C and I agree with the assessment and plan as above except as otherwise noted Masha is a 68-year-old female with past medical history of recent lung transplant 11/2023 at [facility] who presented to the ER 04/05 with 2 days of shortness of breath, dyspnea, sputum production, new oxygen requirement, right-sided pleuritic pain, and evidence of multifocal pneumonia on chest x-ray. Due to her recent transplan and complicated illness case was reviewed with [facility] and patient was accepted for transfer to inpatient status at that institution. Initially the patient remained as a ER bed hold with hospitalist consult pending transfer. Unfortunately due to weather and bed avai lability transfer may not be available in the next 24 to 36 hours and to better facilitate patient care patient will be admitted by the hospitalist service for further management pending transfer. Labs and images reviewed No overnight events Remains with a leukocytosis, slightly downtrending today. BioFire was negative. PCT was elevated in ER consistent with bacterial multifocal pneumonia. Co ntinue voriconazole, vancomycin, cefepime, doxycycline. BNP is mildly elevated and chest x-ray does show small pleural effusions with possible mixed alveolar opacities suggestive of edema. Last echo was with EF 60 to 65% and patient did not have a clinical history of CHF. Will defer both additional fluids and diuresis, if worsening then would diurese very cautiously with low-dose Lasix. Hemoglobin within about 1 point of prior, but slightly downtrending to 7.9. No clinical signs of bleeding. Continue to trend. MCV is normal VBG at time of hospitalist consultation 04/05 was with a borderline compensated chronic respiratory acidosis. Morning labs are with significant hypomagnesemia, repleted 2 g IV and oral continued twice daily. Calcium low at 6.7, 1 g given and trended Continue immunosuppressants despite current infection due to recent transplant, this was previously discussed with her [facility] transplant team. Continue saline nebs On reassessment for chest pain. Chest pain is directly reproducible with low sternal palpation and right anterior rib palpation, suspect MSK strain. Trope is stable and minimally elevated, downtrending from prior now 19.4. Suspect demand. EKG repeated, no acute territorial ischemia. Agree with above PG Care Time/CCT Total # of Minutes Spent Total Time Spent with Patient: Total time spent is greater than 50% in coordination of care (as documented) at patient's floor/unit and/or counseling patient: C[place] [address] INT INP/OBS CARE 3/75MIN Patient Type Established History Comprehensive Exam Comprehensive Medical Decision Making High Complexity Diagnoses Multifocal pneumonia J18.9 History of lung transplant Z94.2 Chronic respiratory failure with hypoxia J96.11 Chest pain R07.9 Chest pain type: unspecified Anemia D64.9 Hypomagnesemia E83.42 Acute kidney injury N17.9 Hypocalcemia E83.51 Prediabetes R73.03 (4) Chest pain Chest pain type: unspecified Qualified Code(s): R07.9 - Chest pain, unspecified
[2024-04-06] MEDS: HYDROCORTISONE SOD 100 MG in SYRINGE 0 ML IV SCH (10:14)
[2024-04-06] MEDS: CEFEPIME 2000MG 2,000 MG/20 ML SYR IV SCH (10:15)
[2024-04-06] MEDS: CALCIUM GLUCONATE 1,000 MG/60 ML BAG IV STA (10:15)
[2024-04-06] MEDS: MAGNESIUM SULFATE / D5W 1 GM/100 ML BAG IV SCH (10:15)
[2024-04-06] MEDS: FLUTICASONE FUROATE 100MCG 14 PUFFS/INHALER INH SCH (10:16)
[2024-04-06] MEDS: VALGANCICLOVIR HCL 450 MG TABLET PO SCH (10:17)
[2024-04-06] MEDS: TACROLIMUS 0.5 MG CAP PO SCH (10:17)
[2024-04-06] MEDS: UMECLIDINIUM/VILANTEROL 62.5/25MCG 7 PUFFS/INHALER INH SCH (10:17)
[2024-04-06] MEDS: ESCITALOPRAM OXALATE 10 MG TAB PO SCH (10:17)
[2024-04-06] MEDS: oxyCODONE HCL IR 5 MG TAB (IMMEDIATE RELEASE) PO PRN (10:17)
[2024-04-06] MEDS: predniSONE 5 MG TAB PO ONE (10:18)
[2024-04-06] MEDS: FEXOFENADINE HCL 180 MG TAB PO SCH (10:18)
[2024-04-06] MEDS: guaiFENesin 600 MG TABCR PO SCH (10:18)
[2024-04-06] MEDS: VORICONAZOLE 200 MG TABLET PO SCH (10:18)
[2024-04-06] MEDS: PANTOprazole 40 MG TAB PO SCH (10:19)
[2024-04-06] MEDS: HYDROmorphone INJ 0.5 MG/0.5 ML SYR IV STA (10:38)
[2024-04-06] MEDS: MYCOPHENOLATE MOFETIL 250 MG CAP PO SCH (10:48)
[2024-04-06 11:26] LABS: Estimated Average Glucose 117 mg/dl; Hemoglobin A1C 5.7 % (4.5-5.6)
[2024-04-06] MEDS: DOXYCYCLINE HYCLATE 100 MG in DEXTROSE 5% MINI-B 100 ML IV SCH (11:31)
--- NOTE | 2024-04-06 11:37 | Pharmacy Report ---
Pharmacy PK ABX Note - Date of Service April 06, 2024 - Assessment and Plan Assessment 68 year old F receiving vancomycin, cefepime, doxycycline for treatment of multifocal pneumonia. History lung transplant, immunosuppressed. Blood cultures pending. SCr increasing (1.24 -->1.39, baseline ~ 0.9). Pending transfer to [place]. Day #2 of antimicrobial therapy. Plan Vancomycin * Loading dose: 1250 mg IV x 1 * Maintenance dose: 1000 mg IV every 24 hours * Regimen is predicted to achieve target AUC/DORYS of 400-600 mg/L.hr * Random level tomorrow AM given worsening renal function Pharmacy will continue to follow and will adjust dose/frequency as necessary. Thank you. Pharmacy has transitioned to AUC monitoring for vancomycin. AUC/DORYS is the preferred PK/PD target and is associated with decreased risk of nephrotoxicity compared to traditional trough targets.
[2024-04-06] MEDS ORDERED: GLUCOSE 10 TAB/TUBE PO PRN (11:54)
[2024-04-06] MEDS ORDERED: ONDANSETRON INJ 2 MG/ML 2 ML VIAL IV PRN (11:54)
[2024-04-06] MEDS ORDERED: DEXTROSE 50% 50 ML SYRINGE IV PRN (11:54)
[2024-04-06] MEDS ORDERED: GLUCOSE 40% GEL 15 GM TUBE PO PRN (11:54)
[2024-04-06] MEDS ORDERED: CARBOHYDRATES FOR HYPOGLYCEMIA PO PRN (11:54)
[2024-04-06] MEDS: LIDOCAINE 5% 1 PATCH TD STA (12:33)
[2024-04-06] MEDS: APIXABAN 5 MG TABLET PO ONE (12:35)
[2024-04-06 12:59] LABS: Appearance Urine Cloudy (Clear); Bacteria Urine Automated 4+ (None Seen); Bilirubin Urine Negative (Negative); Blood Urine Negative (Negative); Color Urine Yellow; Glucose Urine UA Negative (Negative); Ketones Urine Trace (Negative); Leukocyte Esterase Urine Negative (Negative); Nitrite Urine Positive (Negative); Protein Urine 1+ (Negative); RBC Urine Automated 0-2 /hpf (0-2); Specific Gravity Urine 1.023 (1.000-1.030); Urobilinogen Urine Negative (Negative); WBC Urine Automated 0-5 /hpf (0-5)
[2024-04-06] MEDS: VANCOMYCIN HCL 1,000 MG/270 ML BAG IV SCH (13:38)
[2024-04-06 16:56] LABS: Hematocrit (blood only) 26.4 % (37.0-47.0); Hemoglobin 8.4 g/dl (12.0-16.0)
[2024-04-06] MEDS: INSULIN ASPART PER UNIT CHARGE SC SCH (17:15)
[2024-04-06] MEDS: APIXABAN 5 MG TABLET PO SCH (20:21)
[2024-04-06] MEDS: LANTUS PER UNIT CHARGE SQ SCH (20:22)
--- NOTE | 2024-04-06 21:56 | Electrocardiogram Report ---
Test Reason : Blood Pressure : */* mmHG Vent. Rate : 85 BPM Atrial Rate : 85 BPM P-R Int : 132 ms QRS Dur : 70 ms QT Int : 390 ms P-R-T Axes : 90 53 73 degrees QTcB Int : 464 ms Normal sinus rhythm Normal ECG When compared with ECG of 05-Apr-2024 13:14, No significant change was found Confirmed by Marcello Rodríguez ([id number]) on 04/06/2024 9:55:30 PM Referred By: REFERRED SELF Confirmed By: Marcello Rodríguez
[2024-04-06] MEDS: ALBUT/IPRATROP 3MG/0.5MG NEB 3 ML VIAL NEB PRN (22:17)
[2024-04-06] MEDS: SODIUM CHLOR 7% 4 ML NEB NEB PRN (22:17)
[2024-04-07] MEDS ORDERED: Nursing to Pharmacy 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 SCH (02:00)
[2024-04-07 02:53] VITALS: TEMP 97.7
[2024-04-07] MEDS: ACETAMINOPHEN 325 MG TAB PO PRN (05:08)
[2024-04-07 05:39] LABS: Hematocrit (blood only) 24.8 % (37.0-47.0); Hemoglobin 8.1 g/dl (12.0-16.0); Mean Corpuscular Hemoglobin 31.2 pg (25.0-34.0); Mean Corpuscular Hgb Conc 32.7 g/dL (32.0-36.0); Mean Corpuscular Volume 95.4 fL (80.0-100.0); Mean Platelet Volume 9.6 fL (9.4-12.4); Platelet Count 256 K/uL (130-400); RDW Coefficient of Variation 14.3 % (11.5-14.5); RDW Standard Deviation 49.4 fL (36.4-46.3); White Blood Count 8.04 K/ul (4.8-10.8)
[2024-04-07 05:54] LABS: Albumin Globulin Ratio 1.5 (0.9-2); Albumin Level 3.3 gm/dl (3.4-5.0); BUN Creatinine Ratio 21.4 (10-20); Bilirubin,Total 0.5 mg/dl (0.2-1.0); Calcium 8.2 mg/dl (8.6-10.3); Creatinine Clr Calc Pharmacy 34.4 ml/min; Globulin 2.2 gm/dl (2.5-4.0); Magnesium 1.6 mg/dl (1.7-2.4); Potassium 4.3 mmol/L (3.5-5.1); Total Protein 5.5 gm/dl (6.0-8.3)
[2024-04-07 06:00] LABS: Basophils # (auto) 0.01 K/uL (0.00-0.20); Basophils % (auto) 0.1 %; Immature Granulocytes # (auto) 0.09 K/uL (0.01-0.20); Immature Granulocytes % (auto) 1.1 %; Lymphocytes % (auto) 3.7 %; Monocytes # (auto) 0.28 K/uL (0.11-0.59); Monocytes % (auto) 3.5 %; Neutrophils # (auto) 7.36 K/uL (1.40-6.50); Neutrophils % (auto) 91.6 %; Polychromasia 1+
[2024-04-07 07:24] VITALS: BP 151/88; RESP 19; O2SAT 97
[2024-04-07] MEDS: MAGNESIUM SULFATE / D5W 1 GM/100 ML BAG IV ONE (08:11)
[2024-04-07] MEDS: LIDOCAINE 5% 1 PATCH TD STA (09:51)
--- NOTE | 2024-04-07 10:02 | Discharge Summary ---
Discharge Summary Date of Service April 07, 2024 Principal Dx & Hospital Course #1 = Principal Diagnosis (1) Multifocal pneumonia: Patient presented on 04/05 for worsening TAPIA and productive cough x 2 days Leukocytosis of 14.44 with neutral predominance; PCT elevated at 2.38; febrile at 37.7 C on arrival [employer] negative CXR on arrival revealed mixed interstitial and alveolar opacities suggestive of pulmonary edema versus multifocal pneumonia ED spoke with [facility] (attending manager filter, Dr. Ramon) as patient had recent lung transplant in November 2023 Patient is currently accepted and awaiting transfer to [facility] Due to inclement weather and bed availability, transfer may not be available for the next 24-48h Admit to PCU telemetry IV vancomycin IV cefepime 1 g q12h IV doxycycline 100 mg q12h DuoNebs q2h PRN Guaifenesin 600 mg p.o. q12h (2) History of lung transplant: Single left-sided lung transplant at [facility] on 12/09/2023 Continue voriconazole, atovaquone, and prednisone IV hydrocortisone 100 mg q8h to address adrenal insufficiency in the setting of prednisone use Per ED conversation with [place] (Dr. Mayer lung transplant team) on the morning of 04/06: Continue current abx Continue tacrolimus Hold mycophenolate for now (3) Chronic respiratory failure with hypoxia: Patient is normally on 3L NC at baseline Continuous pulse oximetry Titrate supplemental oxygen to maintain SpO2 89-92% (4) Chest pain: Mildly elevated on arrival; trend 20-->23-->19 Patient does endorse chest pain 15 out of 10 at time of admission (similar to how it has been over the past 2 days); pleuritic Repeat EKG and troponin ordered Suspect cause of chest pain is MSK v multifocal pneumonia on arrival However DDx includes pulmonary embolism (among other etiologies) Given DUNG and non-tachycardic on arrival, will temporarily defer chest CTA as there is a cause for her chest pain (PNA) UPDATE: patient's daughter confirms she is currently on Eliquis 5mg BID; lower suspicion for PE; continue Eliquis Lower suspicion for ACS given hours of chest pain without significantly elevated troponin, and pain is directly reproducible with palpation Last echocardiogram on 10/25/2022 revealed LVEF at 60 to 65% Lidocaine patch application Continue dilaudid 0.25mg IV q3h as needed Continuous telemetry monitoring for now (5) Anemia: Hgb 9.0-->7.9 on arrival Clinically no signs of active bleeding on physical exam Trend CBC (6) Hypomagnesemia: Magnesium 0.9 at time of hospital admission Hold PPI for now Continue repletion (7) Acute kidney injury: BUN 27, creatinine 1.39 (baseline around 0.84) Avoid nephrotoxic agents where possible Hold valsartan Trend BMP (8) Hypocalcemia: CA 6.7 on admission; Corrected Ca for albumin: 7.5 Calcium gluconate 1000 mg IV x 1 Trend BMP (9) Prediabetes: Last A1c 6.4% on 11/04/2023 Repeat A1c ordered Daughter at bedside reports that she has recently been on metformin and Lantus 15u HS Loose SSI Lantus 5u BID while inpatient (dose-reduced in the setting of DUNG and poor p.o. intake) BSG ACHS for now T2DM diet Adjust regimen as needed Plan Disposition: Admit to PCU telemetry Full code T2DM, heart healthy diet VTE PPx: Eliquis Admission HPI Per Admitting Provider Masha is a 68-year-old female with PMH of single left-sided lung transplant (12/09/2023), COPD, multiple pulmonary nodules, anxiety, depression, ALHAJI, paroxysmal atrial fibrillation, and chronic respiratory failure with hypoxia and hypercapnia. She presented on 04/05 for worsening TPAIA x 2 days. CXR on arrival revealed mixed interstitial and alveolar opacities suggestive of pulmonary edema vs multifocal pneumonia. At time of consult for admission, patient is currently pending transfer to [facility] where her lung transplant took place. On admission, patient is hypertensive at 160/87 and SpO2 is 95% on 3L NC. Patient endorses 15 out of 10 chest pain located substernally. She characterizes it as a sharp stabbing pain. No radiation to the back, shoulders, neck, or arms. She reports that she has had this pain over the past couple days. It is pleuritic in nature. Reproducible on palpation. No alleviating or exacerbating symptoms identified, but she does report that pain medicine in the ED has been helping. Patient denies any recent injuries to her chest wall. Additionally, she does have +1 pitting edema and swelling in her lower extremities bilaterally x 3 days; nonerythematous. No prior history of DVT/PE. She does report she is currently on a blood thinner. She reports her daughter does help to manage medicine at home. Patient lives at home with her sister. No PMH of NM, heart stents, or CVA to her knowledge. Patient reports both SOB at rest and with exertion. She has been coughing up yellow sputum over the past several days. No hemoptysis. She is a former tobacco cigarette smoker but quit several years ago. No recent alcohol use. She ambulates with a walker as needed. ED course: Cefepime 2000 mg IV Vancomycin 1250 mg IV Doxycycline 100 mg IV Morphine sulfate 4 mg IV Zofran 4 mg IV ROS: Patient endorses fever at home (unsure how high this got as she did not take her temperature), chills, night sweats, mild headache, chest pain, pleuritic CP, productive cough (yellow sputum production), nausea, vomiting, and leg swelling x 3 days. Patient denies dizziness, lightheadedness, hemoptysis, chest palpitations, abdominal pain, diarrhea, changes in urinary bowel habits, burning with urination, or redness/pain in the lower extremities bilaterally. Spoke to patient's daughter (Marycruz) at bedside and provided update regarding labs/imaging/admission status. Patient's daughter does confirm that the patient is on Eliquis 5 mg p.o. twice daily which was started shortly after her lung transplant. Daughter also reports that she takes Lantus 15u HS for diabetes. Daughter is currently working to obtain an up-to-date medication list. Discharge Exam GENERAL APPEARANCE NAD, activity normal for age, well developed/ well nourished, no cyanosis, pallor, or diaphoresis. EYES lids/conjunctiva normal. EARS/NOSE/THROAT Mucous membranes moist, nares normal, lips/teeth normal uvula midline without oral pharyngeal erythema, exudate or swelling TMs normal bilaterally. No lymphangitis/lymphedema. HEAD/NECK normocephalic atraumatic, no facial trauma, neck is supple. RESPIRATORY respiratory effort normal, speaks in full sentences, no tripod position, no accessory muscle use. Lungs clear to auscultation without rhonchi, wheezes, rales CARDIAC Regular rate and rhythm, no edema. ABDOMINAL Soft, ND/NT. No evidence of fluid wave. No pulsatile masses on exam, rebound tenderness, Young sign or pain over Mcburney's point. MUSCLES/EXTREMITIES No abnormal range of motion, no swelling. SKIN Warm, pink and dry. No rashes, dermatoses, petechiae or lesions. NEUROLOGICAL Speech is clear and appropriate. Normal level of consciousness. Gait and coordination are normal. 5/5 strength in all extremities. PSYCH Normal mood and affect. Judgement/competence is appropriate Discharge Plan Discharge Items Patient Disposition: Transfer Acute Care Hospital Reason For Visit: MULTIFOCAL PNEUMONIA S/P LUNG TRANSPLANT Discharge Diagnosis: Multifocal PNA Activity: Resume your previous activity Non-emergency contact: Primary Care Provider Call non-emergency contact if: you have any medication questions Follow-up/Referrals: Maya Weller OTR [Primary Care Provider] - Diet: Regular Addtl Attending Provider Instructions: Follow up with Dr. Ramon of [facility] Pending Studies at Discharge: No Stand-Alone Forms: My [facility] Skilled Items Patient informed of condition?: Yes DNR: No Discharge Level of Care: Other Communicable Disease: No Discharge Prognosis: Stable Lines: Peripheral IV Urinary Catheter: No Medications and DC Order Prescriptions: Continued ipratropium-albuterol 0.5 mg-3 mg(2.5 mg base)/3 mL solution for nebulization 3 ml INH QID PRN (Reason: Shortness Of Breath) Qty: 360 5RF (DME) CPAP Machine Misc See Rx Instructions .MEDSUPPLY Qty: 1 0RF Rx Instructions: Auto-titration CPAP with pressure range between 5 cm H2O and 15 cm H2O with humidification. Lifetime need. (DME) CPAP Supplies Misc See Rx Instructions .MEDSUPPLY Qty: 1 0RF Rx Instructions: Refitting of the mask. G47.33 (DME) Portable Oxygen Misc See Rx Instructions .Route Qty: 1 0RF Rx Instructions: portable oxygen concentrator- 3LPM on exertion via n/c. SILVIA:99 Trelegy Ellipta 100-62.5-25 mcg blister with device 1 inh inhalation DAILY Qty: 28 7RF albuterol sulfate 90 mcg/actuation HFA aerosol inhaler 2 puff inhalation Q4H PRN (Reason: shortness of breath or wheezing) Qty: 8.5 3RF Rx Instructions: Generic for ProAir- Patient can not use Ventolin ergocalciferol (vitamin D2) 1,250 mcg (50,000 unit) capsule 1,250 mcg PO WK Rx Instructions: MONDAYS escitalopram oxalate [Lexapro] 10 mg tablet 15 mg PO QAM pantoprazole [Protonix] 40 mg tablet,delayed release (DR/EC) 40 mg PO QAM Qty: 30 2RF prednisone 5 mg tablet 5 mg PO DAILY aspirin 81 mg Tablet,Delayed Release (Dr/Ec) 81 mg PO DAILY calcium carbonate 600 mg calcium (1,500 mg) Tablet 600 mg PO WK ferrous sulfate 325 mg (65 mg iron) Tablet 325 mg PO DAILY gabapentin 100 mg Capsule 100 mg PO BID alum-mag hydroxide-simeth [Mag-Al Plus] 200-200-20 mg/5 mL Suspension 30 ml PO Q6H metformin 500 mg tablet extended release 24 hr 500 mg PO BID tacrolimus 1 mg capsule 1 mg PO BID atovaquone 750 mg/5 mL suspension 750 mg PO BID voriconazole 200 mg tablet 200 mg PO BID insulin lispro 100 unit/mL insulin pen 1 sliding scale dose SUBCUT DIRECTED rosuvastatin 5 mg tablet 5 mg PO HS metoprolol tartrate 25 mg tablet 37.5 mg PO BID insulin glargine [Lantus Solostar U-100 Insulin] 100 unit/mL (3 mL) Insulin Pen 15 unit SUBCUT HS magnesium chloride 64 mg Tablet,Delayed Release (Dr/Ec) 64 mg PO DAILY Eliquis 5 mg tablet 5 mg PO BID Prevymis 480 mg tablet 480 mg PO DAILY Discharge Orders: Discharge Order (Routine); Ordered 04/07/24 Ordered By: Roddy Carvajal Admission Data Admit Date/Time: 04/06/24 10:03 Attending Provider: Roddy Carvajal Admit Provider: Kip Penny Primary Care Provider: Maya Weller Other Providers: Roshan Ordonez Hospital Stay Data Consultations 04/06/24 09:10 ED Decision to Admit Stat 04/07/24 07:09 Burn CD for patient Stat Pending Results Patient Have Any Pending Studies at Discharge: No Discharge Instructions Given to Patient (Per Discharging Provider) Follow up with Dr. Ramon of [facility] Total Time Total Time Spent Total Time Spent (In Minutes): 50 Coding Level of Care Code 48109 INP/OBS DISCH >30 MIN Diagnoses Multifocal pneumonia J18.9 History of lung transplant Z94.2 Chronic respiratory failure with hypoxia J96.11 Chest pain R07.9 Chest pain type: unspecified Anemia D64.9 Hypomagnesemia E83.42 Acute kidney injury N17.9 Hypocalcemia E83.51 Prediabetes R73.03
[2024-04-07 10:08] VITALS: PULSE 92
== END 2024-04-07 10:15 | disposition short-term general hospital (02) | DRG 194 ==
LOC: ED 13:03 → SUATTDRO 04-06 10:03 → EDINP 04-06 10:03 → 2E 04-06 14:51

== ENCOUNTER 2024-10-25 12:05 | Inpatient (IN) ==
--- NOTE | 2024-10-25 12:32 | Emergency Department Note ---
Impression & Plan Acute hyperkalemia, DUNG (acute kidney injury), Medication side effect ED Provider Note NAME: AVIVA MIMS AGE: 69 SEX: F : 1955 ARRIVES VIA: Walk-In INFORMANT: Patient, ED PROVIDER(S): Neto Kimball MD CHIEF COMPLAINT: Outpatient referral, EKG request MEDICAL DECISION MAKING: Patient presents with above although unclear as to exactly why the patient was send other than EKG. After further discussion with the patient's marketing content coordinator Kip Vu patient did have L created tacrolimus level as well as hyperkalemia to 6.1. IV was established and blood work was obtained. Patient ordered IV fluids here. Patient's blood work does show normal white count hemoglobin of 8.5 chronic and stable. Platelet count of 428 elevated compared to prior. The patient does have a creat of 2.5 with potassium of 5.9 slightly improved from 6.1. Calcium of 8.3. No significant EKG changes with regard to the hyperkalemia noted on my review. Patient was ordered calcium gluconate given the hypocalcemia. Patient also ordered IV insulin IV dextrose and albuterol nebulizer treatment. I did speak with the on-call hospitalist service. I subsequently did speak with the on-call nephrology service Dr. Wen who agreed with the plan of care. Patient was also ordered Lokelma. After further discussion with hospitalist service who also spoke with the marketing content coordinator and thought the patient would need to be transferred. I did get to the transfer center and spoke with a Dr. Voss at [facility] and after discussion he states that the treatment would likely not differ does agree with the change of the patient's tacrolimus from 1.5 mg twice daily to 0.5 mg twice daily. He recommended that the tacro level be at 7 +/- 1. I did rediscuss the patient's case with Dr. New and the patient was admitted to the medicine service. Critical Care: I have personally spent 76 minutes of critical care time in direct management of this patient. This includes bedside care, interpretation of diagnostic studies, and testing, discussion with consultants, patient, and family members, and other require inpatient management activities. This 76 minutes is in excess of all separately billable procedures. Discussion w/ other healthcare providers: Kip marketing content coordinator [facility] Dr. New inpatient medicine service Dr. Wen nephrology Dr. Voss lung transplant service [facility] Prior /Outside records reviewed: None Differential diagnosis: Infection, dehydration, metabolic abnormality, hypo/hyperglycemia, electrolyte imbalance, anemia, UTI, pneumonia, thyroid dysfunction among others were considered. Diagnostics, as interpreted by me: ECG: Normal sinus rhythm, rate of 68, normal intervals, normal axis T wave version lead III no obvious STEMI. Q wave in lead III and aVF may be new from comparison October 12, 2024. Cardiac monitoring: An order was placed for continuous cardiac monitoring. The monitor shows a rate of 68 with sinus rhythm. Patient was placed on pulse oximetry Medical decision rules: None Imaging studies: None HPI: Patient presents due to concern for EKG request. Also known history of lung transplant and she was called by her marketing content coordinator after having blood work today and was told that there was something abnormal to where she needed an emergent EKG. Patient denies any chest pain or shortness of breath she has had some mild fatigue. No abdominal pain. Patient states that she does have occasional pedal edema but this is typically after her legs hanging over her chair. Patient denies any falls or trauma. She reports being compliant with her medications and believes that she is taking tacrolimus 1.5 mg twice a day and states that it might have been secondary to the tacrolimus why she was sent but was unsure. Patient is a former smoker who received a lung transplant for COPD. I did obtain additional information from the patient's marketing content coordinator Kip Solorzano stated that the patient earlier in the week had an elevated tacrolimus level had blood work done today which showed hyperkalemia to 6.1. PAST MEDICAL HISTORY: See Below PAST SURGICAL HISTORY: See Below SOCIAL HISTORY: See Below HOME MEDICATIONS: See Below ALLERGIES: See Below VITALS: See Below PHYSICAL EXAMINATION: GENERAL: NAD, non-toxic. Wearing glasses. EYE EXAM: Normal conjunctiva. PERRL, no anisocoria and EOM's grossly intact w/o pain. OROPHARYNX: Moist mucus membranes, grossly normal dentition. NECK: Trachea midline, no stridor. LUNGS: Clear to auscultation. Normal chest wall mechanics. HEART: NSR, no MRG. ABDOMEN: Abdomen soft, non-tender, no masses, no rebound or guarding. BACK: No CVA TTP. SKIN: No rashes and no bruising. UPPER EXTREMITIES: Upper extremities are grossly normal. LOWER EXTREMITIES: Grossly normal, no edema. NEURO EXAM: Awake and alert, follows commands, no obvious facial asymmetry, normal speech, moves all 4 extremities. Past Med/Surg History Problem List (Updated 10/25/24 @ 19:43 by Neto Kimball MD) Medication side effect (Acute) DUNG (acute kidney injury) (Acute) Acute hyperkalemia (Acute) Chronic kidney disease, stage 4 (severe) Left-sided chest wall pain (Acute) Acute leg pain (Acute) Acute hyperkalemia (Acute) Hypocalcemia (Acute) Elevated troponin Acute kidney injury (Acute) Hypomagnesemia Anemia History of lung transplant (Acute) Multifocal pneumonia Hypoxia (Acute) Lung transplant recipient Prediabetes Hyperglycemia History of peptic ulcer disease Shortness of breath (Acute) Acute exacerbation of chronic obstructive pulmonary disease (Acute) Hypoxia (Acute) Failure of outpatient treatment (Acute) Acute exacerbation of chronic obstructive pulmonary disease (COPD) (Acute) Acute and chronic respiratory failure (Acute) Acute pericardial effusion (Acute) Acute exacerbation of chronic obstructive pulmonary disease (Acute) Lower back pain Goals of care, counseling/discussion Palliative care encounter Pneumonia (Acute) Acute respiratory failure with hypoxia and hypercapnia Failure of outpatient treatment (Acute) Paroxysmal atrial tachycardia Leukocytosis Acute exacerbation of chronic obstructive pulmonary disease (Acute) SOB (shortness of breath) (Acute) Acid reflux Influenza A (Acute) Acute respiratory failure with hypercapnia COVID-19 (Acute) Chest pain (Acute) Ex-smoker COPD (chronic obstructive pulmonary disease) (Acute) Chronic respiratory failure with hypoxia (Acute) Dyspnea Cough Fever Acute on chronic respiratory failure with hypoxia (Acute) Dysfunction of both eustachian tubes Acute respiratory failure with hypoxia Paroxysmal atrial tachycardia Acute dyspnea (Acute) History of tobacco use Lung transplant candidate Sacroiliitis Multiple pulmonary nodules no biopsies, monitored COPD exacerbation (Acute) [facility] 03/2023 Chronic respiratory failure SOB (shortness of breath) (Acute) "all the time" Anxiety with depression Chronic obstructive pulmonary disease with hypoxia 3L O2 va, [facility] Pulm Dr. Dhillon Sleep apnea, obstructive (Chronic) CPAP Medical History Family history of paroxysmal atrial tachycardia History of COVID-19 (~2021) x3 sob, cough, fatigue; resolved History of recent pneumonia (~09/2022) Surgical History Hx of cardiac catheterization (~2022) Had in [place] as part of work up for [employer] to get on Lung Transplant list, no stents Hx of colonoscopy with polypectomy Hx of bilateral cataract extraction History of partial hysterectomy History of carpal tunnel surgery of right wrist History of broken collarbone sx to repair History of tooth extraction all teeth H/O partial thyroidectomy (~1989) d/t hemorrhaging?--unknown cause, no meds Family History Mother , from ovarian cancer Cancer Ovarian Sister Cancer Ovarian Father COPD (chronic obstructive pulmonary disease) Other No family history of adverse response to anesthesia Social History Smoking Status: Former smoker Tobacco Type: Cigarettes Age Started Using Tobacco: 17; Age Quit Using Tobacco: 64; packs per day: 1; Cigarettes Per Day: Less than a packet; Second Hand Exposure: No; Do You Dip or Chew Tobacco: No; Hx Alcohol Use: No Hx Substance Use: No Preferred Language: [place]an 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 Ability: Effective Layout Worker 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 Beliefs That Will Affect Care: None marital status: Current Living Situation: Family Current Living Situation Comment: Lives with Sister Araceli Feels Safe at Home: Yes Safety Concerns: Feels Safe At This Time Assistive Devices: Glasses Allergies Allergies Allergy/AdvReac Type Severity Reaction Status Date / Time aspirin AdvReac Intermediate GI SYMPTOMS Verified 10/25/24 14:59 Home Meds Home Medications Medication Instructions Recorded Confirmed escitalopram oxalate 10 mg tablet 15 mg PO QAM 08/05/22 10/25/24 (Lexapro) aspirin 81 mg tablet,delayed 81 mg PO QAM 04/06/24 10/25/24 release calcium carbonate 600 mg PO BID 04/06/24 10/25/24 gabapentin 100 mg capsule 100 mg PO HS 04/06/24 10/25/24 insulin lispro 100 unit/mL 1 sliding scale dose subcut 04/06/24 10/25/24 subcutaneous pen DIRECTED letermovir 480 mg tablet (Prevymis) 480 mg PO QAM 04/06/24 10/25/24 magnesium chloride 64 mg 64 mg PO QAM 12/20/24 07/10/25 (magnesium chloride) tablet,delayed release prednisone 5 mg tablet 5 mg PO QAM 04/06/24 10/25/24 rosuvastatin 5 mg tablet 5 mg PO HS 04/06/24 10/25/24 tacrolimus 1 mg capsule, 0 mg PO BID 04/06/24 10/25/24 immediate-release acyclovir 200 mg capsule 400 mg PO AMPM 08/08/24 10/25/24 carvedilol 12.5 mg tablet 12.5 mg PO AMPM 08/08/24 10/25/24 cholecalciferol (vitamin D3) 25 25 mcg PO QAM 08/08/24 10/25/24 mcg (1,000 unit) tablet (Vitamin D3) tacrolimus 0.5 mg capsule, 0 mg PO BID 08/08/24 10/25/24 immediate-release abaloparatide (Tymlos) 80 mcg subcut DAILY 10/12/24 10/25/24 azathioprine 50 mg tablet 50 mg PO QAM 10/12/24 10/25/24 empagliflozin 10 mg tablet 10 mg PO DAILY 10/12/24 10/25/24 (Jardiance) amlodipine 5 mg tablet 5 mg PO QAM 10/25/24 10/25/24 bisacodyl 5 mg tablet,delayed 5 mg PO DAILY PRN Constipation 10/25/24 10/25/24 release (Dulcolax (bisacodyl)) sulfamethoxazole 800 0.5 tab PO BID 10/25/24 10/25/24 mg-trimethoprim 160 mg tablet Previous Rx's Medication Instructions Recorded CPAP Machine #1 ea 12/06/19 CPAP Supplies #1 ea 05/11/21 Portable Oxygen #1 ea 09/15/22 pantoprazole 40 mg tablet,delayed 40 mg PO QAM #30 tabs 11/06/23 release (Protonix) albuterol sulfate 90 mcg/actuation 2 puff inhalation Q4H PRN 02/16/24 aerosol inhaler shortness of breath or wheezing #8.5 grams fluticasone fur. 100 mcg-umeclid 1 inh inhalation DAILY #28 ea 02/16/24 62.5 mcg-vilant 25 mcg inhalat.powder (Trelegy Ellipta) Results & Data (ED) Vital Signs Vital Signs - 24 hr 10/25/24 12:11 10/25/24 12:27 10/25/24 12:33 Temperature 36.8 C Temperature Source Temporal Artery Scan Pulse Rate 70 68 65 Pulse Rate from SpO2 Sensor 68 Pulse Rhythm Respiratory Rate 16 19 Respiratory Effort / Characteristics Non-Labored Spontaneous Respiratory Depth Normal Blood Pressure 152/83 H 148/77 H Blood Pressure Mean 106 100 Blood Pressure Position Sitting Pulse Oximetry 97 97 Oxygen Delivery Method Room Air Sepsis Recent Fever Within 48 Hours No Sepsis New/Unexplained Change in Mental Status N/A Sepsis Action Taken by Nursing No Action Required 10/25/24 13:13 10/25/24 14:39 10/25/24 16:00 Temperature Temperature Source Pulse Rate 65 64 69 Pulse Rate from SpO2 Sensor 64 69 Pulse Rhythm Regular Respiratory Rate 16 24 23 Respiratory Effort / Characteristics Respiratory Depth Blood Pressure 154/73 H 146/80 H Blood Pressure Mean 100 102 Blood Pressure Position Pulse Oximetry 95 93 96 Oxygen Delivery Method Room Air Room Air Sepsis Recent Fever Within 48 Hours Sepsis New/Unexplained Change in Mental Status Sepsis Action Taken by [facility] Medications Current Medication List: was personally reviewed by me Laboratory Data Attestation: I reviewed the patient's lab results. 10/25/24 12:30 10/25/24 12:30 Lab Results 10/25/24 10/25/24 10/25/24 Range/Units 12:30 15:10 15:21 WBC 8.15 (4.8-10.8) K/ul RBC 2.54 L (4.20-5.40) M/uL Hgb 8.5 L (12.0-16.0) g/dl Hct 25.8 L (37.0-47.0) % MCV 101.6 H (80.0-100.0) fL MCH 33.5 (25.0-34.0) pg MCHC 32.9 (32.0-36.0) g/dL RDW Std Deviation 52.2 H (36.4-46.3) fL RDW Coeff of Audrey 14.1 (11.5-14.5) % Plt Count 428 H (130-400) K/uL MPV 9.5 (9.4-12.4) fL Immature Gran % (Auto) 0.7 % Neut % (Auto) 77.2 % Lymph % (Auto) 15.1 % Arthur % (Auto) 6.6 % Eos % (Auto) 0.2 % Baso % (Auto) 0.2 % Neut # (Auto) 6.28 (1.40-6.50) K/uL Lymph # (Auto) 1.23 (1.20-3.40) K/uL Arthur # (Auto) 0.54 (0.11-0.59) K/uL Eos # (Auto) 0.02 (0.00-0.50) K/uL Baso # (Auto) 0.02 (0.00-0.20) K/uL Immature Gran # (Auto) 0.06 (0.01-0.20) K/uL Sodium 141 (136-145) mmol/L Potassium 5.9 H (3.5-5.1) mmol/L Chloride 113 H (98-107) mmol/L Carbon Dioxide 20 L (21-32) mmol/L Anion Gap 8 (3-11) BUN 46 H (6-23) mg/dl Creatinine 2.50 H (0.6-1.2) mg/dl Est Cr Clr Drug Dosing 17.3 ml/min eGFR 20.18 BUN/Creatinine Ratio 18.4 (10-20) Glucose 95 (70-99(Fasting)) mg/dl POC Glucose 292 H (70-99) mg/dl Calcium 8.3 L (8.6-10.3) mg/dl Magnesium 2.1 (1.7-2.4) mg/dl Total Bilirubin 0.4 (0.2-1.0) mg/dl AST 12 L (13-39) U/L ALT 8 (7-52) U/L Alkaline Phosphatase 60 (34-104) U/L Troponin I High Sens 9.7 (0-14) pg/ml Total Protein 6.1 (6.0-8.3) gm/dl Albumin 3.5 (3.4-5.0) gm/dl Globulin 2.6 (2.5-4.0) gm/dl Albumin/Globulin Ratio 1.3 (0.9-2) TSH 1.895 (0.300-4.500) uIu/ml Urine Color Urine Appearance (Clear) Urine pH (4.5-7.5) Ur Specific [place] (1.000-1.030) Urine Protein (Negative) Urine Glucose (UA) (Negative) Urine Ketones (Negative) Urine Blood (Negative) Urine Nitrite (Negative) Urine Bilirubin (Negative) Urine Urobilinogen (Negative) Ur Leukocyte Esterase (Negative) Ur Random Creatinine 49.2 mg/dl U Random Total Protein 10.5 (0-11.9) mg/dl Ur Random Sodium 121 mmol/L Protein/Creatinin Ratio 0.2 (0-0.2) Urine Comment 10/25/24 10/25/24 Range/Units 15:25 16:04 WBC (4.8-10.8) K/ul RBC (4.20-5.40) M/uL Hgb (12.0-16.0) g/dl Hct (37.0-47.0) % MCV (80.0-100.0) fL MCH (25.0-34.0) pg MCHC (32.0-36.0) g/dL RDW Std Deviation (36.4-46.3) fL RDW Coeff of Audrey (11.5-14.5) % Plt Count (130-400) K/uL MPV (9.4-12.4) fL Immature Gran % (Auto) % Neut % (Auto) % Lymph % (Auto) % Arthur % (Auto) % Eos % (Auto) % Baso % (Auto) % Neut # (Auto) (1.40-6.50) K/uL Lymph # (Auto) (1.20-3.40) K/uL Arthur # (Auto) (0.11-0.59) K/uL Eos # (Auto) (0.00-0.50) K/uL Baso # (Auto) (0.00-0.20) K/uL Immature Gran # (Auto) (0.01-0.20) K/uL Sodium (136-145) mmol/L Potassium (3.5-5.1) mmol/L Chloride (98-107) mmol/L Carbon Dioxide (21-32) mmol/L Anion Gap (3-11) BUN (6-23) mg/dl Creatinine (0.6-1.2) mg/dl Est Cr Clr Drug Dosing ml/min eGFR BUN/Creatinine Ratio (10-20) Glucose (70-99(Fasting)) mg/dl POC Glucose 193 H (70-99) mg/dl Calcium (8.6-10.3) mg/dl Magnesium (1.7-2.4) mg/dl Total Bilirubin (0.2-1.0) mg/dl AST (13-39) U/L ALT (7-52) U/L Alkaline Phosphatase (34-104) U/L Troponin I High Sens (0-14) pg/ml Total Protein (6.0-8.3) gm/dl Albumin (3.4-5.0) gm/dl Globulin (2.5-4.0) gm/dl Albumin/Globulin Ratio (0.9-2) TSH (0.300-4.500) uIu/ml Urine Color Yellow Urine Appearance Clear (Clear) Urine pH 7.5 (4.5-7.5) Ur Specific [place] 1.013 (1.000-1.030) Urine Protein Negative (Negative) Urine Glucose (UA) 1+ H (Negative) Urine Ketones Negative (Negative) Urine Blood Negative (Negative) Urine Nitrite Negative (Negative) Urine Bilirubin Negative (Negative) Urine Urobilinogen Negative (Negative) Ur Leukocyte Esterase Negative (Negative) Ur Random Creatinine mg/dl U Random Total Protein (0-11.9) mg/dl Ur Random Sodium mmol/L Protein/Creatinin Ratio (0-0.2) Urine Comment Administered Medications Sodium Bicarbonate (Sodium Bicarbonate 650 Mg Tab) 650 mg PO BID [facility] Stop: 11/24/24 15:09 Last Admin: 10/25/24 15:28 Dose: 650 mg Documented By: LEWIS Discontinued Medications Albuterol (Albuterol 0.083% Nebu Soln 3 Ml Vial) 2.5 mg NEB NOW STA; Protocol Stop: 10/25/24 14:34 Last Admin: 10/25/24 14:54 Dose: 2.5 mg Documented By: LEWIS Dextrose (Dextrose 50% 50 Ml Syringe) 50 ml IV NOW ONE Stop: 10/25/24 14:34 Last Admin: 10/25/24 14:54 Dose: 50 ml Documented By: LEWIS Sodium Chloride (Nss) 500 mls @ 999 mls/hr IV .Q31M [facility] Stop: 10/25/24 13:30 Last Infusion: 10/25/24 14:42 Dose: Infused Documented By: Admin: 10/25/24 13:09 Dose: 999 mls/hr Documented By: LEWIS Calcium Gluconate () 1,000 mg in 60 mls @ 240 mls/hr IV NOW STA Stop: 10/25/24 14:47 Last Infusion: 10/25/24 15:17 Dose: Infused Documented By: Admin: 10/25/24 14:54 Dose: 240 mls/hr Documented By: LEWIS Insulin Human Regular (Novolin-R Insulin Per Unit Charge) 5 units IV NOW STA Stop: 10/25/24 14:34 Last Admin: 10/25/24 14:54 Dose: 5 units Documented By: LEWIS Co-signed By: REGINE Sodium Bicarbonate (Sodium Bicarb 8.4% Inj 50 Meq/50 Ml Syr) 50 meq IV NOW STA Stop: 10/25/24 15:09 Last Admin: 10/25/24 15:28 Dose: 50 meq Documented By: LEWIS Sodium Zirconium Cyclosilicate (Sodium Zirconium Cyclosilicate 10 Gm Packet) 10 gm PO NOW STA Stop: 10/25/24 14:51 Last Admin: 10/25/24 15:28 Dose: 10 gm Documented By: LEWIS Discharge Plan Visit Data Chief Complaint: Referred by Doctor Stated Complaint: DOCTOR REQUESTED UKG TO BE DONE ED Provider: Neto Kimball Discharge Problem: Acute hyperkalemia, DUNG (acute kidney injury), Medication side effect Patient Disposition: Admitted As Inpatient Condition: Good Discharge Instructions Interventions: ED Discharge Assessment Last Done: 10/25/24 18:56
[2024-10-25] MEDS: SODIUM CHLORIDE 0.9% 500 ML IV SCH (13:09)
[2024-10-25 13:24] LABS: Hematocrit (blood only) 25.8 % (37.0-47.0); Hemoglobin 8.5 g/dl (12.0-16.0); Immature Granulocytes # (auto) 0.06 K/uL (0.01-0.20); Immature Granulocytes % (auto) 0.7 %; Mean Corpuscular Hemoglobin 33.5 pg (25.0-34.0); Mean Corpuscular Volume 101.6 fL (80.0-100.0); Platelet Count 428 K/uL (130-400); RDW Standard Deviation 52.2 fL (36.4-46.3); Red Blood Count 2.54 M/uL (4.20-5.40); White Blood Count 8.15 K/ul (4.8-10.8)
[2024-10-25 13:52] LABS: Alanine Aminotransferase 8.0 U/L (7-52); Albumin Globulin Ratio 1.3 (0.9-2); Alkaline Phosphatase 60.0 U/L (34-104); Anion Gap 8.0 (3-11); Bilirubin,Total 0.4 mg/dl (0.2-1.0); Blood Urea Nitrogen 46.0 mg/dl (6-23); Calcium 8.3 mg/dl (8.6-10.3); Carbon Dioxide 20.0 mmol/L (21-32); Chloride 113.0 mmol/L (98-107); Creatinine Clr Calc Pharmacy 17.3 ml/min; Globulin 2.6 gm/dl (2.5-4.0); Glucose 95.0 mg/dl (70-99(Fasting)); Magnesium 2.1 mg/dl (1.7-2.4); Potassium 5.9 mmol/L (3.5-5.1); Sodium 141.0 mmol/L (136-145); Total Protein 6.1 gm/dl (6.0-8.3)
[2024-10-25 14:04] LABS: Thyroid Stimulating Hormone 1.895 uIu/ml (0.300-4.500)
[2024-10-25] MEDS: DEXTROSE 50% 50 ML SYRINGE IV ONE (14:54)
[2024-10-25] MEDS: NovoLIN-R INSULIN PER UNIT CHARGE IV STA (14:54)
[2024-10-25] MEDS: CALCIUM GLUCONATE 1,000 MG/60 ML BAG IV STA (14:54)
[2024-10-25] MEDS: ALBUTEROL 0.083% NEBU SOLN 3 ML VIAL NEB STA (14:54)
[2024-10-25] MEDS: SODIUM ZIRCONIUM CYCLOSILICATE 10 GM PACKET PO STA (15:28)
[2024-10-25] MEDS: SODIUM BICARBONATE 650 MG TAB PO SCH (15:28)
[2024-10-25] MEDS: SODIUM BICARB 8.4% INJ 50 MEQ/50 ML SYR IV STA (15:28)
[2024-10-25 15:36] LABS: Appearance Urine Clear (Clear); Glucose Urine UA 1+ (Negative)
--- NOTE | 2024-10-25 15:43 | Nephrology Consultation ---
Date of Consultation October 25, 2024 Assessment & Plan (1) Acute hyperkalemia: * Medical management has been reviewed w/ EMD and implemented * Hospitalist service will admit and schedule lokelma, monitor serum K (2) Acute kidney injury: * Stop empagliflozin * Clinically volume contracted (dry mucous membranes, no peripheral edema) * 500 cc 0.9 NS administered in EMD * Recommend 0.45 NS w/ 75 mEq HCO3 IV at 100 cc/hr * 10/10 renal US: R 10 cm, L 9 cm. No hydro/calculi * Will order urinalysis w/ microscopy and urine Na/C * Monitor daily BMP (3) Chronic kidney disease, stage 4 (severe): * Baseline Cr has risen to 2.3-2.5 * If renal function fails to improve w/ above conservative measures, consider transfer to [facility] for reevaluation by transplant services and possible renal biopsy to confirm CNI induced tubulointerstitial disease (4) History of lung transplant: * L lung transplant 12/09 at [facility] * EMD physician has spoken w/ transplant service. Recommendation was made to lower tacrolimus to 0.5 mg BID History of Present Illness Reason for Consultation: DUNG/CKD History of Present Illness Ms. Mcneil is a 69 year old white female who is seen at the request of Dr. Kimball ([facility] EMD) for evaluation of DUNG/CKD. Information for the HPI is obtained from direct patient interview and review of the EMR. HPI is summarized as follows: Ms. Mcneil has end stage COPD and required L lung transplant 12/09 at [facility]. Her current immunosuppressive regimen includes tacrolimus 1. 5 mg twice daily and Imuran 50 mg daily. She also has ALHAJI, AODM, HTN, hyperlipidemia and osteoporosis. Ms. Mcneil denies CKD. Review of EMR shows a baseline Cr 0.8 until 04/10. Since then she has suffered a slow progressive rise in Cr to 2.5. 10/10 Ms. Mcneil was hospitalized with DUNG/CKD and LE pain. She was evaluated by Dr. Inman. Renal US was negative for obstruction. Urinalysis was non-nephritic. Trough tacrolimus level was 18.4. DUNG was attributed to dehydration in the setting of tacrolimus and newly started empagliflozin. Cr peaked at 2.7 but improved to 2.2 following hydration. Ms. Mcneil reports that she feels well. She has had no fever, nausea/vomiting/diarrhea. She had routine laboratory studies performed for the [facility] transplant clinic. She was found to be hyperkalemic and was advised to present to the [facility] EMD for further management. In the emergency room laboratory studies were obtained. K was 6.1, ECG was NSR 68 bpm with mild peaking of the T waves in the lateral leads. Serum creatinine was 2.3. EMD physician requested consultation with nephrology. Medical management for hyperkalemia was advised. Patient received calcium, insulin, dextrose, albuterol and was started on Lokelma therapy. 500 cc 0.9 normal saline was administered. 10/10 nephrology evaluation including urine sediment and renal ultrasound results were reviewed with the EMD physician. Explained that patient likely does not have a postobstructive process but rather may be prerenal or suffering progressive tubular interstitial injury related to tacrolimus therapy. Dr. Kimball did contact the pulmonary transplant clinic at [facility]. He was advised to reduce tacrolimus to 0.5 mg twice each day. Arrangements have been made for Ms. Mcneil to be admitted to the hospitalist service for ongoing IV hydration and management of hyperkalemia. Jardiance has been stopped. Allergies Allergy/AdvReac Type Severity Reaction Status Date / Time aspirin AdvReac Intermediate GI SYMPTOMS Verified 10/25/24 14:59 Home Medications Medication Instructions Recorded Confirmed Type CPAP Machine #1 ea 12/06/19 08/08/24 Rx CPAP Supplies #1 ea 05/11/21 08/08/24 Rx escitalopram oxalate 10 mg tablet 15 mg PO QAM 08/05/22 10/25/24 History (Lexapro) Portable Oxygen #1 ea 09/15/22 08/08/24 Rx pantoprazole 40 mg tablet,delayed 40 mg PO QAM #30 tabs 11/06/23 10/25/24 Rx release (Protonix) albuterol sulfate 90 mcg/actuation 2 puff inhalation Q4H PRN 02/16/24 10/25/24 Rx aerosol inhaler shortness of breath or wheezing #8.5 grams fluticasone fur. 100 mcg-umeclid 1 inh inhalation DAILY #28 ea 02/16/24 10/25/24 Rx 62.5 mcg-vilant 25 mcg inhalat.powder (Trelegy Ellipta) aspirin 81 mg tablet,delayed 81 mg PO QAM 04/06/24 10/25/24 History release calcium carbonate 600 mg PO BID 04/06/24 10/25/24 History gabapentin 100 mg capsule 100 mg PO HS 04/06/24 10/25/24 History insulin lispro 100 unit/mL 1 sliding scale dose subcut 04/06/24 10/25/24 History subcutaneous pen DIRECTED letermovir 480 mg tablet (Prevymis) 480 mg PO QAM 04/06/24 10/25/24 History magnesium chloride 64 mg 64 mg PO QAM 04/06/24 10/25/24 History (magnesium chloride) tablet,delayed release prednisone 5 mg tablet 5 mg PO QAM 04/06/24 10/25/24 History rosuvastatin 5 mg tablet 5 mg PO HS 04/06/24 10/25/24 History tacrolimus 1 mg capsule, 0 mg PO BID 04/06/24 10/25/24 History immediate-release acyclovir 200 mg capsule 400 mg PO AMPM 08/08/24 10/25/24 History carvedilol 12.5 mg tablet 12.5 mg PO AMPM 08/08/24 10/25/24 History cholecalciferol (vitamin D3) 25 25 mcg PO QAM 08/08/24 10/25/24 History mcg (1,000 unit) tablet (Vitamin D3) tacrolimus 0.5 mg capsule, 0 mg PO BID 08/08/24 10/25/24 History immediate-release abaloparatide (Tymlos) 80 mcg subcut DAILY 10/12/24 10/25/24 History azathioprine 50 mg tablet 50 mg PO QAM 10/12/24 10/25/24 History empagliflozin 10 mg tablet 10 mg PO DAILY 10/12/24 10/25/24 History (Jardiance) bisacodyl 5 mg tablet,delayed 5 mg PO DAILY PRN Constipation 10/25/24 10/25/24 History release (Dulcolax (bisacodyl)) Patient History Medical History Family history of paroxysmal atrial tachycardia History of COVID-19 (~2021) x3 sob, cough, fatigue; resolved History of recent pneumonia (~09/2022) Surgical History Hx of cardiac catheterization (~2022) Had in [place] as part of work up for [facility] to get on Lung Transplant list, no stents Hx of colonoscopy with polypectomy Hx of bilateral cataract extraction History of partial hysterectomy History of carpal tunnel surgery of right wrist History of broken collarbone sx to repair History of tooth extraction all teeth H/O partial thyroidectomy (~1989) d/t hemorrhaging?--unknown cause, no meds Family History Mother , from ovarian cancer Cancer Ovarian Sister Cancer Ovarian Father COPD (chronic obstructive pulmonary disease) Other No family history of adverse response to anesthesia Social History Smoking Status: Former smoker Tobacco Type: Cigarettes Age Started Using Tobacco: 17; Age Quit Using Tobacco: 64; packs per day: 1; Cigarettes Per Day: Less than a packet; Second Hand Exposure: No; Do You Dip or Chew Tobacco: No; Hx Alcohol Use: No Hx Substance Use: No Preferred Language: Uzbek 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 Ability: Effective Rn Support Services 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 Beliefs That Will Affect Care: None marital status: Current Living Situation: Family Current Living Situation Comment: goes between sister and daughter Feels Safe at Home: Yes Assistive Devices: Denture - Upper, Denture - Lower and Glasses Review of Systems Constitutional: no fever Eyes: no problem reported Ear, Nose, Mouth, Throat: no problem reported Respiratory: no cough and no dyspnea Cardiovascular: no chest pain Gastrointestinal: no abdominal pain, no nausea, no vomiting and no diarrhea/loose stools Genitourinary: no dysuria, no hematuria and no flank pain Integumentary: no rash Neurologic: no localized weakness Physical Exam Constitutional: not in distress Eyes: PERRL, conjunctivae normal, anicteric sclerae ENMT: external ear and nose normal, oropharynx normal Neck: trachea midline, no thyromegaly Respiratory: normal respiratory effort, lungs clear to auscultation Cardiovascular: RRR, no murmur, no edema Gastrointestinal (Abdomen): normal bowel sounds, soft, nontender, no hepatosplenomegaly Musculoskeletal: Extremities: no cyanosis and no clubbing Skin: no rashes, warm and dry Neurologic: no focal motor deficits Results & Data Vital Signs (Past 12 Hours) Vital Signs Temp Pulse Resp BP Pulse Ox O2 Del Method 10/25/24 13:13 65 16 95 Room Air 10/25/24 12:33 65 10/25/24 12:11 36.8 C 70 16 152/83 H 97 Room Air Laboratory Results Laboratory Results WBC 8.15 K/ul (4.8-10.8) 10/25/24 12:30 RBC 2.54 M/uL (4.20-5.40) L 10/25/24 12:30 Hgb 8.5 g/dl (12.0-16.0) L 10/25/24 12:30 Hct 25.8 % (37.0-47.0) L 10/25/24 12:30 MCV 101.6 fL (80.0-100.0) H 10/25/24 12:30 MCH 33.5 pg (25.0-34.0) 10/25/24 12:30 MCHC 32.9 g/dL (32.0-36.0) 10/25/24 12:30 RDW Std Deviation 52.2 fL (36.4-46.3) H 10/25/24 12:30 RDW Coeff of Audrey 14.1 % (11.5-14.5) 10/25/24 12:30 Plt Count 428 K/uL (130-400) H 10/25/24 12:30 MPV 9.5 fL (9.4-12.4) 10/25/24 12:30 Immature Gran % (Auto) 0.7 % 10/25/24 12:30 Neut % (Auto) 77.2 % 10/25/24 12:30 Lymph % (Auto) 15.1 % 10/25/24 12:30 Harper % (Auto) 6.6 % 10/25/24 12:30 Eos % (Auto) 0.2 % 10/25/24 12:30 Baso % (Auto) 0.2 % 10/25/24 12:30 Neut # (Auto) 6.28 K/uL (1.40-6.50) 10/25/24 12:30 Lymph # (Auto) 1.23 K/uL (1.20-3.40) 10/25/24 12:30 Harper # (Auto) 0.54 K/uL (0.11-0.59) 10/25/24 12:30 Eos # (Auto) 0.02 K/uL (0.00-0.50) 10/25/24 12:30 Baso # (Auto) 0.02 K/uL (0.00-0.20) 10/25/24 12:30 Immature Gran # (Auto) 0.06 K/uL (0.01-0.20) 10/25/24 12:30 Sodium 141 mmol/L (136-145) 10/25/24 12:30 Potassium 5.9 mmol/L (3.5-5.1) H 10/25/24 12:30 Chloride 113 mmol/L (98-107) H 10/25/24 12:30 Carbon Dioxide 20 mmol/L (21-32) L 10/25/24 12:30 Anion Gap 8 (3-11) 10/25/24 12:30 BUN 46 mg/dl (6-23) H 10/25/24 12:30 Creatinine 2.50 mg/dl (0.6-1.2) H 10/25/24 12:30 Est Cr Clr Drug Dosing 17.3 ml/min 10/25/24 12:30 eGFR 20.18 10/25/24 12:30 BUN/Creatinine Ratio 18.4 (10-20) 10/25/24 12:30 Glucose 95 mg/dl (70-99(Fasting)) 10/25/24 12:30 POC Glucose 292 mg/dl (70-99) H 10/25/24 15:10 Calcium 8.3 mg/dl (8.6-10.3) L 10/25/24 12:30 Magnesium 2.1 mg/dl (1.7-2.4) 10/25/24 12:30 Total Bilirubin 0.4 mg/dl (0.2-1.0) 10/25/24 12:30 AST 12 U/L (13-39) L 10/25/24 12:30 ALT 8 U/L (7-52) 10/25/24 12:30 Alkaline Phosphatase 60 U/L (34-104) 10/25/24 12:30 Troponin I High Sens 9.7 pg/ml (0-14) 10/25/24 12:30 Total Protein 6.1 gm/dl (6.0-8.3) 10/25/24 12:30 Albumin 3.5 gm/dl (3.4-5.0) 10/25/24 12:30 Globulin 2.6 gm/dl (2.5-4.0) 10/25/24 12:30 Albumin/Globulin Ratio 1.3 (0.9-2) 10/25/24 12:30 TSH 1.895 uIu/ml (0.300-4.500) 10/25/24 12:30 Urine Color Yellow 10/25/24 15:25 Urine Appearance Clear (Clear) 10/25/24 15:25 Urine pH 7.5 (4.5-7.5) 10/25/24 15:25 Ur Specific Winfred 1.013 (1.000-1.030) 10/25/24 15:25 Urine Protein Negative (Negative) 10/25/24 15: Urine Glucose (UA) 1+ (Negative) H 10/25/24 15:25 Urine Ketones Negative (Negative) 10/25/24 15:25 Urine Blood Negative (Negative) 10/25/24 15:25 Urine Nitrite Negative (Negative) 10/25/24 15:25 Urine Bilirubin Negative (Negative) 10/25/24 15:25 Urine Urobilinogen Negative (Negative) 10/25/24 15:25 Ur Leukocyte Esterase Negative (Negative) 10/25/24 15:25 Urine Comment 10/25/24 15:25 PG Care Time/CCT Total # of Minutes Spent Total Time Spent with Patient: Total time spent is greater than 50% in coordination of care (as documented) at patient's floor/unit and/or counseling patient: Coding Level of Care Code 05252 IN/OBS CONSULT LVL 5,80M Diagnoses Acute hyperkalemia E87.5 Acute kidney injury N17.9 Chronic kidney disease, stage 4 (severe) N18.4 History of lung transplant Z94.2
--- NOTE | 2024-10-25 16:21 | History & Physical Report ---
Date of Service October 25, 2024 Assessment & Plan (1) DUNG (acute kidney injury): (2) Acute hyperkalemia: (3) Medication side effect: (4) B12 deficiency anemia: (5) Prediabetes: (6) Lung transplant recipient: Plan 69 year old female with lung transplant presents to the ER on advice of her lung transplant team due to hyperkalemia on outpatient labs #Acute hyperkalemia Suspect secondary to DUNG and Bactrim No EKG changes but plan to monitor on telemetry Insulin/dextrose given in the ER Due to metabolic acidosis and NSS given will give 50 meq sodium bicarb IV and continue PO as below for metabolic acidosis Start Lokelma 10g TID Repeat labs @ 9pm, as long as decreasing no need for ongoing insulin/dextrose #Acute kidney injury Baseline Cr is actually 1.39 in August which she never returned to after her recent admission Appears euvolemic, do not suspect pre-renal cause UA pending but unremarkable previously for proteinuria Suspect multifactorial with non-GFR related Cr rise from decreased secretion due to Bactrim, Jardiance use (she continued on this despite being advised to hold last admission) and elevated tacrolimus levels Consult nephrology #Metabolic acidosis Start sodium bicarb 650mg PO BID although she may not need this moving forward as long as her renal function improves #Lung transplant / elevated tacrolimus levels Per lung transplant team, aim is 7+/-1 but ok < 10 and current level on Tuesday 21.6 Per lung transplant team recommendations reduce tacrolimus to 0.5mg PO BID starting tomorrow, repeat trough level inpatient/outpatient depending if she is still admitted on Tuesday AM prior to taking dose Continue azathioprine, acyclovir, prednisone, Tymlos and Prevymis Since no longer able to take Bactrim transplant team recommended switching to atovaquone #B12 deficiency with macrocytic anemia Diagnosed last admission and started on injections but not continued on discharge, will restart on 1000 mcg PO daily Follow up with PCP for repeat levels VTE Prophylaxis - encourage ambulation, SCDs Disposition - admit to med/tele Admission and Anticipated Discharge Date Admission Date: October 25, 2024 History of Present Illness Chief Complaint: High potassium Primary Care Provider: JAXON Valles Masha Mcneil is a 69 year old female who presents to the ER on advice of her lung transplant team due to increased potassium levels. She reports feeling little tired but other than that feels fine. She denies any significant muscle weakness.. ER provider discussed with the transplant team (Kip Vu [phone]) who initially requested transfer as still within a year of her transplant however on discussion with Dr Voss (lung transplant surgeon @ [facility]) reported ok to keep at [facility] as not primary lung issue and ok for plan to reduce tacrolimus to 0.5mg PO BID based on outpatient lab level 21.6 on Tuesday. On review of her external medication list and consultation with transplant team on October 17 she was restarted on Bactrim for prophylaxis at half a tablet twice daily. She was also restarted on amlodipine 5 mg p.o. daily at the same appointment due to high blood pressure, this is a medication she was previously on but stopped earlier in the year. She did not start cyanocobalamin after diagnosed with B12 deficiency macrocytic anemia last admission. She also did not hold her Jardiance as advised last admission. [facility] outpatient labs [10/17/24] Cr 2.13, K 5.1. Allergies Allergy/AdvReac Type Severity Reaction Status Date / Time aspirin AdvReac Intermediate GI SYMPTOMS Verified 10/25/24 14:59 Home Medications Medication Instructions Recorded Confirmed Type escitalopram oxalate 10 mg tablet 15 mg PO QAM 08/05/22 10/25/24 History (Lexapro) Portable Oxygen #1 ea 09/15/22 08/08/24 Rx pantoprazole 40 mg tablet,delayed 40 mg PO QAM #30 tabs 11/06/23 10/25/24 Rx release (Protonix) albuterol sulfate 90 mcg/actuation 2 puff inhalation Q4H PRN 02/16/24 10/25/24 Rx aerosol inhaler shortness of breath or wheezing #8.5 grams fluticasone fur. 100 mcg-umeclid 1 inh inhalation DAILY #28 ea 02/16/24 10/25/24 Rx 62.5 mcg-vilant 25 mcg inhalat.powder (Trelegy Ellipta) aspirin 81 mg tablet,delayed 81 mg PO QAM 04/06/24 10/25/24 History release calcium carbonate 600 mg PO BID 04/06/24 10/25/24 History gabapentin 100 mg capsule 100 mg PO HS 04/06/24 10/25/24 History insulin lispro 100 unit/mL 1 sliding scale dose subcut 12/20/24 07/10/25 History subcutaneous pen DIRECTED letermovir 480 mg tablet (Prevymis) 480 mg PO QAM 04/06/24 10/25/24 History magnesium chloride 64 mg 64 mg PO QAM 04/06/24 10/25/24 History (magnesium chloride) tablet,delayed release prednisone 5 mg tablet 5 mg PO QAM 04/06/24 10/25/24 History rosuvastatin 5 mg tablet 5 mg PO HS 04/06/24 10/25/24 History tacrolimus 1 mg capsule, 0 mg PO BID 04/06/24 10/25/24 History immediate-release acyclovir 200 mg capsule 400 mg PO AMPM 08/08/24 10/25/24 History carvedilol 12.5 mg tablet 12.5 mg PO AMPM 08/08/24 10/25/24 History cholecalciferol (vitamin D3) 25 25 mcg PO QAM 08/08/24 10/25/24 History mcg (1,000 unit) tablet (Vitamin D3) tacrolimus 0.5 mg capsule, 0 mg PO BID 08/08/24 10/25/24 History immediate-release abaloparatide (Tymlos) 80 mcg subcut DAILY 10/12/24 10/25/24 History azathioprine 50 mg tablet 50 mg PO QAM 10/12/24 10/25/24 History empagliflozin 10 mg tablet 10 mg PO DAILY 10/12/24 10/25/24 History (Jardiance) amlodipine 5 mg tablet 5 mg PO QAM 10/25/24 10/25/24 History bisacodyl 5 mg tablet,delayed 5 mg PO DAILY PRN Constipation 10/25/24 10/25/24 History release (Dulcolax (bisacodyl)) sulfamethoxazole 800 0.5 tab PO BID 10/25/24 10/25/24 History mg-trimethoprim 160 mg tablet Past Med/Surg History Problem List (Updated 10/25/24 @ 22:04 by Aureliano New MD) B12 deficiency anemia Medication side effect (Acute) DUNG (acute kidney injury) (Acute) Acute hyperkalemia (Acute) Chronic kidney disease, stage 4 (severe) Hypocalcemia (Acute) Hypomagnesemia Anemia Multifocal pneumonia Hypoxia (Acute) Lung transplant recipient Prediabetes Lower back pain Paroxysmal atrial tachycardia Acid reflux Ex-smoker COPD (chronic obstructive pulmonary disease) (Acute) Dyspnea Cough Acute on chronic respiratory failure with hypoxia (Acute) Dysfunction of both eustachian tubes Acute respiratory failure with hypoxia Paroxysmal atrial tachycardia Acute dyspnea (Acute) Lung transplant candidate Sacroiliitis Multiple pulmonary nodules no biopsies, monitored Anxiety with depression Medical History (Updated 10/25/24 @ 22:04 by Aureliano New MD) History of tobacco use Sleep apnea, obstructive CPAP History of peptic ulcer disease Family history of paroxysmal atrial tachycardia History of COVID-19 (~2021) x3 sob, cough, fatigue; resolved History of recent pneumonia (~09/2022) Surgical History (Updated 10/25/24 @ 22:04 by Aureliano New MD) History of lung transplant Hx of cardiac catheterization (~2022) Had in [place] as part of work up for [facility] to get on Lung Transplant list, no stents Hx of colonoscopy with polypectomy Hx of bilateral cataract extraction History of partial hysterectomy History of carpal tunnel surgery of right wrist History of broken collarbone sx to repair History of tooth extraction all teeth H/O partial thyroidectomy (~1989) d/t hemorrhaging?--unknown cause, no meds Family History Mother , from ovarian cancer Cancer Ovarian Sister Cancer Ovarian Father COPD (chronic obstructive pulmonary disease) Other No family history of adverse response to anesthesia Social History Smoking Status: Former smoker Tobacco Type: Cigarettes Age Started Using Tobacco: 17; Age Quit Using Tobacco: 64; packs per day: 1; Cigarettes Per Day: Less than a packet; Second Hand Exposure: No; Do You Dip or Chew Tobacco: No; Hx Alcohol Use: No Hx Substance Use: No Preferred Language: Fijian 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 Ability: Effective Mailroom Supervisor 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 Beliefs That Will Affect Care: None marital status: Current Living Situation: Family Current Living Situation Comment: Lives with Sister Araceli Feels Safe at Home: Yes Safety Concerns: Feels Safe At This Time Assistive Devices: Glasses Review of Systems Review of Systems: All systems reviewed & are unremarkable except as noted in HPI & below Physical Exam Constitutional: WD/WN, vitals as above ENMT: external ear and nose normal, oropharynx normal Respiratory: normal respiratory effort, lungs clear to auscultation Cardiovascular: RRR, no murmur, no edema Gastrointestinal (Abdomen): normal bowel sounds, soft, nontender, no hepatosplenomegaly Musculoskeletal: no cyanosis or clubbing, extremities motor strength 5/5 Skin: no rashes, warm and dry Neurologic: moves all extremities and awake; not confused Psychiatric: A+Ox3, euthymic affect Results & Data Results & Data Vital Signs (Past 12 Hours) Vital Signs Temp Pulse Resp BP Pulse Ox O2 Del Method 10/25/24 13:13 65 16 95 Room Air 10/25/24 12:33 65 10/25/24 12:11 36.8 C 70 16 152/83 H 97 Room Air Laboratory Results Abnormal lab results 10/25/24 10/25/24 10/25/24 Range/Units 12:30 15:10 15:25 RBC 2.54 L (4.20-5.40) M/uL Hgb 8.5 L (12.0-16.0) g/dl Hct 25.8 L (37.0-47.0) % MCV 101.6 H (80.0-100.0) fL RDW Std Deviation 52.2 H (36.4-46.3) fL Plt Count 428 H (130-400) K/uL Potassium 5.9 H (3.5-5.1) mmol/L Chloride 113 H (98-107) mmol/L Carbon Dioxide 20 L (21-32) mmol/L BUN 46 H (6-23) mg/dl Creatinine 2.50 H (0.6-1.2) mg/dl POC Glucose 292 H (70-99) mg/dl Calcium 8.3 L (8.6-10.3) mg/dl AST 12 L (13-39) U/L Urine Glucose (UA) 1+ H (Negative) 10/25/24 10/25/24 Range/Units 16:04 20:21 RBC (4.20-5.40) M/uL Hgb (12.0-16.0) g/dl Hct (37.0-47.0) % MCV (80.0-100.0) fL RDW Std Deviation (36.4-46.3) fL Plt Count (130-400) K/uL Potassium (3.5-5.1) mmol/L Chloride (98-107) mmol/L Carbon Dioxide (21-32) mmol/L BUN (6-23) mg/dl Creatinine (0.6-1.2) mg/dl POC Glucose 193 H 116 H (70-99) mg/dl Calcium (8.6-10.3) mg/dl AST (13-39) U/L Urine Glucose (UA) (Negative) Medications Administered ER Medications Given: Normal saline 500 mL bolus Albuterol 2.5 mg neb Insulin 5 units IV Dextrose 50% 50 mL IV Calcium gluconate 1000 mg IV ECG Rate (beats per minute): 68 Rhythm: normal sinus Findings: + T-wave inversion (Inferior) Comparison ECG Date: from (October 12, 2024) Change: the following changes noted (T wave inversions are new in inferior leads but suspect this is lead placement given concurrent QRS changes) Code Status & VTE Plan Code Status Full VTE Prophylaxis Plan VTE Prophylaxis will be ordered: Yes PG Care Time/CCT Total # of Minutes Spent Total Time Spent with Patient: Total time spent is greater than 50% in coordination of care (as documented) at patient's floor/unit and/or counseling patient: Coding Level of Care Code 52652 INT INP/OBS CARE 3/75MIN Diagnoses DUNG (acute kidney injury) N17.9 Acute hyperkalemia E87.5 Medication side effect T88.7XXA B12 deficiency anemia D51.9 Prediabetes R73.03 Lung transplant recipient Z94.2
[2024-10-25 17:50] LABS: Protein Creatinine Ratio Urine 0.2 (0-0.2); Total Protein Urine Random 10.5 mg/dl (0-11.9)
--- NOTE | 2024-10-25 18:44 | Electrocardiogram Report ---
Test Reason : Blood Pressure : */* mmHG Vent. Rate : 68 BPM Atrial Rate : 68 BPM P-R Int : 128 ms QRS Dur : 80 ms QT Int : 372 ms P-R-T Axes : -11 -10 -30 degrees QTcB Int : 395 ms Normal sinus rhythm possible Inferior infarct , age undetermined Abnormal ECG When compared with ECG of 12-Oct-2024 02:15, T wave inversion now evident in Inferior leads Confirmed by Arthur Pack ([id number]) on 10/25/2024 6:44:32 PM Referred By: David Napier Confirmed By: Arthur Pack
[2024-10-25] MEDS ORDERED: ONDANSETRON INJ 2 MG/ML 2 ML VIAL IV PRN (19:18)
[2024-10-25] MEDS ORDERED: ACETAMINOPHEN 325 MG TAB PO PRN (19:18)
[2024-10-25] MEDS: SODIUM ZIRCONIUM CYCLOSILICATE 10 GM PACKET PO SCH (20:01)
[2024-10-25 21:27] LABS: Anion Gap 4.0 (3-11); Blood Urea Nitrogen 40.0 mg/dl (6-23); Calcium 7.8 mg/dl (8.6-10.3); Carbon Dioxide 25.0 mmol/L (21-32); Chloride 113.0 mmol/L (98-107); Creatinine Clr Calc Pharmacy 16.6 ml/min; Glucose 106.0 mg/dl (70-99(Fasting)); Potassium 5.3 mmol/L (3.5-5.1); Sodium 142.0 mmol/L (136-145)
[2024-10-25] MEDS: ATOVAQUONE 750 MG/5 ML UDC PO SCH (21:57)
[2024-10-25] MEDS: ROSUVASTATIN CALCIUM 5 MG TAB PO SCH (21:57)
[2024-10-25] MEDS: GABAPENTIN 100 MG CAP PO SCH (21:57)
[2024-10-25] MEDS: ACYCLOVIR 200 MG CAP PO SCH (21:57)
[2024-10-25] MEDS: PLASMA-LYTE A 1,000 ML IV SCH (23:43)
[2024-10-26 07:22] LABS: Hematocrit (blood only) 23.5 % (37.0-47.0); Hemoglobin 7.7 g/dl (12.0-16.0); Mean Corpuscular Hemoglobin 33.6 pg (25.0-34.0); Mean Corpuscular Volume 102.6 fL (80.0-100.0); Platelet Count 321 K/uL (130-400); RDW Standard Deviation 53.2 fL (36.4-46.3); Red Blood Count 2.29 M/uL (4.20-5.40); White Blood Count 5.94 K/ul (4.8-10.8)
[2024-10-26 07:46] LABS: Anion Gap 5.0 (3-11); Calcium 7.3 mg/dl (8.6-10.3); Carbon Dioxide 25.0 mmol/L (21-32); Chloride 111.0 mmol/L (98-107); Potassium 4.9 mmol/L (3.5-5.1); Sodium 141.0 mmol/L (136-145)
[2024-10-26 07:52] LABS: Blood Urea Nitrogen 35.0 mg/dl (6-23); Creatinine Clr Calc Pharmacy 21.2 ml/min; Glucose 102.0 mg/dl (70-99(Fasting))
[2024-10-26] MEDS: CYANOCOBALAMIN (B-12) 500 MCG TABLET PO SCH (08:34)
[2024-10-26] MEDS: ASPIRIN 81 MG ECTAB PO SCH (08:35)
[2024-10-26] MEDS: ESCITALOPRAM OXALATE 10 MG TAB PO SCH (08:35)
[2024-10-26] MEDS: FLUTICASONE FUROATE 100MCG 14 PUFFS/INHALER INH SCH (08:39)
[2024-10-26] MEDS: UMECLIDINIUM/VILANTEROL 62.5/25MCG 7 PUFFS/INHALER INH SCH (08:39)
[2024-10-26] MEDS: TACROLIMUS 0.5 MG CAP PO SCH (08:39)
--- NOTE | 2024-10-26 08:54 | Nephrology Progress Note ---
Date of Service October 26, 2024 Assessment & Plan (1) Acute hyperkalemia: Plan: * Resolved * Stop lokelma * Bactrim stopped, DUNG improved * Low K diet ordered * Monitor daily BMP (2) Acute kidney injury: Plan: * Empagliflozin stopped * 10/10 renal US: R 10 cm, L 9 cm. No hydro/calculi * Urinalysis negative for blood or protein. FeNa 4.4% * Continue gentle hydration w/ 0.9NS at 80 cc/hr (3) Chronic kidney disease, stage 4 (severe): Plan: * Baseline Cr has risen to 2.3-2.5 * If renal function fails to improve w/ above conservative measures, consider transfer to [facility] for reevaluation by transplant services and possible renal biopsy to confirm CNI induced tubulointerstitial disease (4) Anemia: Plan: * Hgb 7.7. Possibly dilutional * Denies overt blood loss * FOBT - pending * B12, folate acceptable * Iron saturation only 23% w/ ferritin 38.9. Will order venofer 300 mg daily x 3 days * Can transition to oral iron when discharge is anticipated (5) History of lung transplant: Plan: * L lung transplant 12/09 at [facility] * EMD physician has spoken w/ transplant service. Recommendation was made to lower tacrolimus to 0.5 mg BID Admission and Anticipated Discharge Date Admission Date: October 25, 2024 Subjective Ms. Mcneil was evaluated in her hospital room this morning. She reports that she feels well and denies overt blood loss. She voiced no new medical concerns this morning. Review of Systems Constitutional: no fever Eyes: no problem reported Ear, Nose, Mouth, Throat: no problem reported Respiratory: no cough and no dyspnea Cardiovascular: no chest pain Gastrointestinal: no abdominal pain, no nausea, no vomiting and no diarrhea/loose stools Genitourinary: no dysuria, no hematuria and no flank pain Integumentary: no rash Neurologic: no localized weakness Physical Exam Constitutional: not in distress Eyes: PERRL, conjunctivae normal, anicteric sclerae ENMT: external ear and nose normal, oropharynx normal Neck: trachea midline, no thyromegaly Respiratory: normal respiratory effort, lungs clear to auscultation Cardiovascular: RRR, no murmur, no edema Gastrointestinal (Abdomen): normal bowel sounds, soft, nontender, no hepatosplenomegaly Musculoskeletal: Extremities: no cyanosis and no clubbing Skin: no rashes, warm and dry Neurologic: no focal motor deficits Results & Data Vital Signs (Past 12 Hours) Vital Signs Temp Pulse Pulse Resp BP Pulse Ox O2 Del Method 10/26/24 07:21 36.6 C 60 18 101/66 98 Room Air 10/26/24 07:12 58 L 10/26/24 03:32 36.6 C 71 18 116/64 96 Room Air 10/26/24 00:00 36.5 C 67 20 125/72 94 Room Air 10/25/24 22:13 65 Laboratory Results Laboratory Results - last 24 hr 10/25/24 10/25/24 10/25/24 12:30 15:10 15:21 WBC 8.15 RBC 2.54 L Hgb 8.5 L Hct 25.8 L MCV 101.6 H MCH 33.5 MCHC 32.9 RDW Std Deviation 52.2 H RDW Coeff of Audrey 14.1 Plt Count 428 H MPV 9.5 Immature Gran % (Auto) 0.7 Neut % (Auto) 77.2 Lymph % (Auto) 15.1 [place] % (Auto) 6.6 Eos % (Auto) 0.2 Baso % (Auto) 0.2 Neut # (Auto) 6.28 Lymph # (Auto) 1.23 [place] # (Auto) 0.54 Eos # (Auto) 0.02 Baso # (Auto) 0.02 Immature Gran # (Auto) 0.06 Sodium 141 Potassium 5.9 H Chloride 113 H Carbon Dioxide 20 L Anion Gap 8 BUN 46 H Creatinine 2.50 H Est Cr Clr Drug Dosing 17.3 eGFR 20.18 BUN/Creatinine Ratio 18.4 Glucose 95 POC Glucose 292 H Calcium 8.3 L Magnesium 2.1 Total Bilirubin 0.4 AST 12 L ALT 8 Alkaline Phosphatase 60 Troponin I High Sens 9.7 Total Protein 6.1 Albumin 3.5 Globulin 2.6 Albumin/Globulin Ratio 1.3 TSH 1.895 Urine Color Urine Appearance Urine pH Ur Specific [place] Urine Protein Urine Glucose (UA) Urine Ketones Urine Blood Urine Nitrite Urine Bilirubin Urine Urobilinogen Ur Leukocyte Esterase Ur Random Creatinine 49.2 U Random Total Protein 10.5 Ur Random Sodium 121 Protein/Creatinin Ratio 0.2 Urine Comment 10/25/24 10/25/24 10/25/24 15:25 16:04 20:21 WBC RBC Hgb Hct MCV MCH MCHC RDW Std Deviation RDW Coeff of Audrey Plt Count MPV Immature Gran % (Auto) Neut % (Auto) Lymph % (Auto) [place] % (Auto) Eos % (Auto) Baso % (Auto) Neut # (Auto) Lymph # (Auto) [place] # (Auto) Eos # (Auto) Baso # (Auto) Immature Gran # (Auto) Sodium Potassium Chloride Carbon Dioxide Anion Gap BUN Creatinine Est Cr Clr Drug Dosing eGFR BUN/Creatinine Ratio Glucose POC Glucose 193 H 116 H Calcium Magnesium Total Bilirubin AST ALT Alkaline Phosphatase Troponin I High Sens Total Protein Albumin Globulin Albumin/Globulin Ratio TSH Urine Color Yellow Urine Appearance Clear Urine pH 7.5 Ur Specific [place] 1.013 Urine Protein Negative Urine Glucose (UA) 1+ H Urine Ketones Negative Urine Blood Negative Urine Nitrite Negative Urine Bilirubin Negative Urine Urobilinogen Negative Ur Leukocyte Esterase Negative Ur Random Creatinine U Random Total Protein Ur Random Sodium Protein/Creatinin Ratio Urine Comment 10/25/24 10/26/24 10/26/24 20:57 06:54 08:07 WBC 5.94 RBC 2.29 L Hgb 7.7 L Hct 23.5 L MCV 102.6 H MCH 33.6 MCHC 32.8 RDW Std Deviation 53.2 H RDW Coeff of Audrey 14.3 Plt Count 321 MPV 9.1 L Immature Gran % (Auto) Neut % (Auto) Lymph % (Auto) [place] % (Auto) Eos % (Auto) Baso % (Auto) Neut # (Auto) Lymph # (Auto) [place] # (Auto) Eos # (Auto) Baso # (Auto) Immature Gran # (Auto) Sodium 142 141 Potassium 5.3 H 4.9 Chloride 113 H 111 H Carbon Dioxide 25 25 Anion Gap 4 5 BUN 40 H 35 H Creatinine 2.61 H 2.04 H D Est Cr Clr Drug Dosing 16.6 21.2 eGFR 19.17 25.76 BUN/Creatinine Ratio 15.3 17.2 Glucose 106 H 102 H POC Glucose 89 Calcium 7.8 L 7.3 L Magnesium Total Bilirubin AST ALT Alkaline Phosphatase Troponin I High Sens Total Protein Albumin Globulin Albumin/Globulin Ratio TSH Urine Color Urine Appearance Urine pH Ur Specific [place] Urine Protein Urine Glucose (UA) Urine Ketones Urine Blood Urine Nitrite Urine Bilirubin Urine Urobilinogen Ur Leukocyte Esterase Ur Random Creatinine U Random Total Protein Ur Random Sodium Protein/Creatinin Ratio Urine Comment PG Care Time/CCT Total # of Minutes Spent Total Time Spent with Patient: Total time spent is greater than 50% in coordination of care (as documented) at patient's floor/unit and/or counseling patient: Coding Level of Care Code 57120 SUB INP/OBS CARE 3/50MIN Diagnoses Acute hyperkalemia E87.5 Acute kidney injury N17.9 Chronic kidney disease, stage 4 (severe) N18.4 Anemia D64.9 History of lung transplant Z94.2
[2024-10-26] MEDS ORDERED: NON-FORMULARY MEDICATION (Fluticasone-Umeclidin-Vilanter [Trelegy Ellipta] 100-62.5-25 mcg INH SCH (09:00)
[2024-10-26 09:32] LABS: Iron 56.0 mcg/dl (35-150); Total Iron Binding Cap Calc 246.0 mcg/dl (250-450); Transferrin 176.0 mg/dl (200-360); Transferrin (FE) Percent Satur 23.0 % (15-50)
[2024-10-26 09:52] LABS: Ferritin 38.9 ng/ml (8-388); Folate (Folic Acid),Ser orPlas 4.48 ng/ml (>5.38)
[2024-10-26 09:53] LABS: Vitamin B12 511.0 pg/ml (180-914)
[2024-10-26] MEDS: IRON SUCROSE 300 MG in SODIUM CHLORIDE 0.9% 250 ML IV SCH (11:00)
[2024-10-26] MEDS: SODIUM CHLORIDE 0.9% 1,000 ML IV SCH (11:08)
[2024-10-26] MEDS: EPOETIN ALFA 10,000 UNITS/ML VIAL SQ ONE (11:08)
[2024-10-26] MEDS: TYMLOS SQ SCH (12:48)
[2024-10-26] MEDS: [UNRECOGNIZED DRUG - OTHER] PO SCH (12:49)
--- NOTE | 2024-10-26 23:34 | Hospitalist Progress Note ---
Date of Service October 26, 2024 Assessment & Plan (1) DUNG (acute kidney injury): (2) Acute hyperkalemia: (3) Medication side effect: (4) B12 deficiency anemia: (5) Prediabetes: (6) Lung transplant recipient: Plan 69 year old female with lung transplant presents to the ER on advice of her lung transplant team due to hyperkalemia on outpatient labs #Acute hyperkalemia Suspect secondary to DUNG and Bactrim No EKG changes but plan to monitor on telemetry Insulin/dextrose given in the ER Due to metabolic acidosis and NSS given will give 50 meq sodium bicarb IV and continue PO as below for metabolic acidosis Start Lokelma 10g TID repeat BMP is showing potassium at 4.9; will repeat in AM. #Acute kidney injury Baseline Cr is actually 1.39 in August which she never returned to after her recent admission Appears euvolemic, do not suspect pre-renal cause UA pending but unremarkable previously for proteinuria Suspect multifactorial with non-GFR related Cr rise from decreased secretion due to Bactrim, Jardiance use (she continued on this despite being advised to hold last admission) and elevated tacrolimus levels Consult nephrology #Metabolic acidosis Start sodium bicarb 650mg PO BID although she may not need this moving forward as long as her renal function improves #Lung transplant / elevated tacrolimus levels Per lung transplant team, aim is 7+/-1 but ok < 10 and current level on Tuesday.6 Per lung transplant team recommendations reduce tacrolimus to 0.5mg PO BID starting tomorrow, repeat trough level inpatient/outpatient depending if she is still admitted on Tuesday AM prior to taking dose Continue azathioprine, acyclovir, prednisone, Tymlos and Prevymis Since no longer able to take Bactrim transplant team recommended switching to atovaquone #B12 deficiency with macrocytic anemia Diagnosed last admission and started on injections but not continued on discharge, will restart on 1000 mcg PO daily Follow up with PCP for repeat levels VTE Prophylaxis - encourage ambulation, SCDs Disposition - admit to med/tele Admission and Anticipated Discharge Date Admission Date: October 25, 2024 Subjective 69 yo female reports no new symptoms. Physical Exam Constitutional: WD/WN, vitals as above Respiratory: normal respiratory effort, lungs clear to auscultation Cardiovascular: RRR, no murmur, no edema Results & Data Results & Data Vital Signs (Past 12 Hours) Vital Signs Temp Pulse Resp BP BP Pulse Ox O2 Del Method 10/26/24 22:43 36.9 C 67 18 112/64 94 Room Air 10/26/24 19:20 36.6 C 66 18 116/56 L 93 Room Air 10/26/24 15:16 36.7 C 67 18 116/64 95 Room Air PG Care Time/CCT Total # of Minutes Spent Total Time Spent with Patient: Total time spent is greater than 50% in coordination of care (as documented) at patient's floor/unit and/or counseling patient: Coding Level of Care Code 31839 SUB INP/OBS CARE 3/50MIN Diagnoses DUNG (acute kidney injury) N17.9 Acute hyperkalemia E87.5 Medication side effect T88.7XXA B12 deficiency anemia D51.9 Prediabetes R73.03 Lung transplant recipient Z94.2
[2024-10-27 03:10] VITALS: RESP 16; TEMP 97.9; O2SAT 93
[2024-10-27 07:26] LABS: Hematocrit (blood only) 25.0 % (37.0-47.0); Hemoglobin 8.1 g/dl (12.0-16.0); Mean Corpuscular Hemoglobin 33.5 pg (25.0-34.0); Mean Corpuscular Volume 103.3 fL (80.0-100.0); Platelet Count 324 K/uL (130-400); RDW Standard Deviation 52.7 fL (36.4-46.3); Red Blood Count 2.42 M/uL (4.20-5.40); White Blood Count 4.82 K/ul (4.8-10.8)
[2024-10-27 07:41] LABS: Anion Gap 4.0 (3-11); Blood Urea Nitrogen 30.0 mg/dl (6-23); Calcium 7.3 mg/dl (8.6-10.3); Carbon Dioxide 26.0 mmol/L (21-32); Chloride 113.0 mmol/L (98-107); Creatinine Clr Calc Pharmacy 21.4 ml/min; Glucose 92.0 mg/dl (70-99(Fasting)); Potassium 4.9 mmol/L (3.5-5.1); Sodium 143.0 mmol/L (136-145)
[2024-10-27 09:56] VITALS: BP 116/64; PULSE 63
--- NOTE | 2024-10-27 11:26 | Discharge Summary ---
Discharge Summary Date of Service October 27, 2024 Principal Dx & Hospital Course #1 = Principal Diagnosis (1) DUNG (acute kidney injury): (2) Acute hyperkalemia: (3) Medication side effect: (4) B12 deficiency anemia: (5) Prediabetes: (6) Lung transplant recipient: Plan 69 year old female with lung transplant presents to the ER on advice of her lung transplant team due to hyperkalemia on outpatient labs #Acute hyperkalemia Suspect secondary to DUNG and Bactrim No EKG changes but plan to monitor on telemetry Insulin/dextrose given in the ER Treated with Lokelma 10g TID repeat BMP is showing potassium at 4.9; ok to discharge. #Acute kidney injury Baseline Cr is actually 1.39 in August which she never returned to after her recent admission Appears euvolemic, do not suspect pre-renal cause UA but unremarkable previously for proteinuria Suspect multifactorial with non-GFR related Cr rise from decreased secretion due to Bactrim, Jardiance use (she continued on this despite being advised to hold last admission) and elevated tacrolimus levels Consult nephrology #Metabolic acidosis Start sodium bicarb 650mg PO BID although she may not need this moving forward as long as her renal function improves #Lung transplant / elevated tacrolimus levels Per lung transplant team, aim is 7+/-1 but ok < 10 and current level on Tuesday.6 Per lung transplant team recommendations reduce tacrolimus to 0.5mg PO BID starting tomorrow, repeat trough level inpatient/outpatient depending if she is still admitted on Tuesday AM prior to taking dose Continue azathioprine, acyclovir, prednisone, Tymlos and Prevymis Since no longer able to take Bactrim transplant team recommended switching to atovaquone #B12 deficiency with macrocytic anemia Diagnosed last admission and started on injections but not continued on discharge, will restart on 1000 mcg PO daily Admission HPI Per Admitting Provider Masha Mcneil is a 69 year old female who presents to the ER on advice of her lung transplant team due to increased potassium levels. She reports feeling little tired but other than that feels fine. She denies any significant muscle weakness.. ER provider discussed with the transplant team (Kip Vu [phone]) who initially requested transfer as still within a year of her transplant however on discussion with Dr Voss (lung transplant surgeon @ [place]) reported ok to keep at [facility] as not primary lung issue and ok for plan to reduce tacrolimus to 0.5mg PO BID based on outpatient lab level 21.6 on Tuesday. On review of her external medication list and consultation with transplant team on October 17 she was restarted on Bactrim for prophylaxis at half a tablet twice daily. She was also restarted on amlodipine 5 mg p.o. daily at the same appointment due to high blood pressure, this is a medication she was previously on but stopped earlier in the year. She did not start cyanocobalamin after diagnosed with B12 deficiency macrocytic anemia last admission. She also did not hold her Jardiance as advised last admission. [facility] outpatient labs [10/17/24] Cr 2.13, K 5.1. Discharge Exam Constitutional WD/WN, vitals as above Respiratory normal respiratory effort, lungs clear to auscultation Cardiovascular RRR, no murmur, no edema Discharge Plan Discharge Items Patient Disposition: Home - Self-Care Reason For Visit: DUNG, HYPERKALEMIA Discharge Diagnosis: DUNG Condition on Discharge: Good Activity: Resume your previous activity Non-emergency contact: Primary Care Provider Call non-emergency contact if: you have any medication questions Follow-up/Referrals: Maya Weller, OTR [Primary Care Provider] - (PLEASE CALL YOUR PRIMARY CARE PROVIDER TO SCHEDULE A HOSPITAL FOLLOW-UP APPOINTMENT WITHIN 7-10 DAYS) Diet: Low Potassium (2gm) Addtl Attending Provider Instructions: Followup with Dr. Pack on November 05. Recommend followup with PCP in 1-2 weeks. Pending Studies at Discharge: No Stand-Alone Forms: My [employer], Smoking Cessation Medications and DC Order Prescriptions: New atovaquone [Mepron] 750 mg/5 mL Suspension 750 mg PO BID 30 Days Qty: 300 0RF Continued (DME) Portable Oxygen Misc See Rx Instructions .Route Qty: 1 0RF Rx Instructions: portable oxygen concentrator- 3LPM on exertion via n/c. SILVIA:99 Trelegy Ellipta 100-62.5-25 mcg blister with device 1 inh inhalation DAILY Qty: 28 7RF albuterol sulfate 90 mcg/actuation HFA aerosol inhaler 2 puff inhalation Q4H PRN (Reason: shortness of breath or wheezing) Qty: 8.5 3RF Rx Instructions: Generic for ProAir- Patient can not use Ventolin escitalopram oxalate [Lexapro] 10 mg tablet 15 mg PO QAM pantoprazole [Protonix] 40 mg tablet,delayed release (DR/EC) 40 mg PO QAM Qty: 30 2RF bisacodyl [Dulcolax (bisacodyl)] 5 mg Tablet,Delayed Release (Dr/Ec) 5 mg PO DAILY PRN (Reason: Constipation) amlodipine 5 mg tablet 5 mg PO QAM prednisone 5 mg tablet 5 mg PO QAM aspirin 81 mg Tablet,Delayed Release (Dr/Ec) 81 mg PO QAM calcium carbonate 600 mg calcium (1,500 mg) Tablet 600 mg PO BID gabapentin 100 mg Capsule 100 mg PO HS insulin lispro 100 unit/mL insulin pen 1 sliding scale dose SUBCUT DIRECTED rosuvastatin 5 mg tablet 5 mg PO HS magnesium chloride 64 mg Tablet,Delayed Release (Dr/Ec) 64 mg PO QAM Prevymis 480 mg tablet 480 mg PO QAM tacrolimus 0.5 mg Capsule 0 mg PO BID Patient Comments: Per caregiver, medication was placed on hold on the evening of 10/24/24, no restart date as of 10/25/24 Rx Instructions: TOTAL DOSE 1.5 MG--TAKES WITH 1 MG CAP. acyclovir 200 mg capsule 400 mg PO AMPM carvedilol 12.5 mg tablet 12.5 mg PO AMPM cholecalciferol (vitamin D3) [Vitamin D3] 25 mcg (1,000 unit) Tablet 25 mcg PO QAM Tymlos 80 mcg (3,120 mcg/1.56 mL) pen injector 80 mcg SUBCUT DAILY azathioprine 50 mg tablet 50 mg PO QAM Discontinued sulfamethoxazole-trimethoprim 800-160 mg tablet 0.5 tab PO BID tacrolimus 1 mg capsule 0 mg PO BID Patient Comments: Per caregiver, medication was placed on hold on the evening of 10/24/24, no restart date as of 10/25/24 Rx Instructions: TOTAL DOSE 1.5 MG--TAKES WITH 0.5 MG CAP. Jardiance 10 mg tablet 10 mg PO DAILY Hold Instructions: Provider's Order Discharge Orders: Discharge Order (Routine); Ordered 10/27/24 Ordered By: Vipul Camp Admission Data Admit Date/Time: 10/25/24 16:06 Attending Provider: Vipul Camp Admit Provider: Aureliano New Primary Care Provider: Maya Weller Other Providers: Aureliano New; Ray Pack Other Interventions: Discharge Summary Assessment (RN) Last Done: 10/27/24 09:55 Hospital Stay Data Consultations 10/25/24 14:28 ED Decision to Admit Stat 10/25/24 16:18 Consult Nephrology Routine Pending Results Patient Have Any Pending Studies at Discharge: No Discharge Instructions Given to Patient (Per Discharging Provider) Followup with Dr. Pack on November 05. Recommend followup with PCP in 1-2 weeks. Total Time Total Time Spent Total Time Spent (In Minutes): 32 Coding Level of Care Code 80958 INP/OBS DISCH >30 MIN Diagnoses DUNG (acute kidney injury) N17.9 Acute hyperkalemia E87.5 Medication side effect T88.7XXA B12 deficiency anemia D51.9 Prediabetes R73.03 Lung transplant recipient Z94.2 Time Spent (min) 32
== END 2024-10-27 10:45 | disposition home or self-care (01) | DRG 683 ==
LOC: ED 12:05 → 2N 16:06 → SUATTDRO 16:06 → 2N 18:56

== ENCOUNTER 2024-11-12 09:46 | Inpatient (IN) ==
--- NOTE | 2024-11-12 11:06 | XRay Report ---
XR chest 1V not portable CLINICAL HISTORY: Chest pain, nonspecific COMPARISON STUDY: 10/12/2024 FINDINGS: Heart size and pulmonary vasculature are normal. There is interval patchy consolidation at the left base with partial obscuration of the left hemidiaphragm. There is mild blunting of the left costophrenic angle. No pneumothorax. IMPRESSION: Pneumonia lower left lung with possible trace left pleural effusion. ACT 112: Negative or not required by law. Electronically signed by: Tre Payne M.D. 11/12/2024 11:05 AM
[2024-11-12 12:02] LABS: Anion Gap 8.0 (3-11); Bilirubin,Total 0.4 mg/dl (0.2-1.0); Calcium 8.5 mg/dl (8.6-10.3); Carbon Dioxide 23.0 mmol/L (21-32); Chloride 111.0 mmol/L (98-107); Potassium 4.7 mmol/L (3.5-5.1); Sodium 142.0 mmol/L (136-145)
[2024-11-12 12:08] LABS: Alanine Aminotransferase 5.0 U/L (7-52); Albumin Globulin Ratio 1.3 (0.9-2); Alkaline Phosphatase 56.0 U/L (34-104); Blood Urea Nitrogen 21.0 mg/dl (6-23); Creatinine Clr Calc Pharmacy 33.6 ml/min; Globulin 2.6 gm/dl (2.5-4.0); Glucose 86.0 mg/dl (70-99(Fasting)); Total Protein 5.9 gm/dl (6.0-8.3)
[2024-11-12 12:24] LABS: Hematocrit (blood only) 26.4 % (37.0-47.0); Hemoglobin 8.8 g/dl (12.0-16.0); Immature Granulocytes # (auto) 0.03 K/uL (0.01-0.20); Immature Granulocytes % (auto) 0.4 %; Mean Corpuscular Hemoglobin 34.4 pg (25.0-34.0); Mean Corpuscular Volume 103.1 fL (80.0-100.0); Platelet Count 241 K/uL (130-400); RDW Standard Deviation 55.3 fL (36.4-46.3); Red Blood Count 2.56 M/uL (4.20-5.40); White Blood Count 6.72 K/ul (4.8-10.8)
[2024-11-12 12:25] LABS: INR 0.9 (0.9-1.1); Partial Thromboplastin Time 24 Seconds (21-31); Prothrombin Time 9.8 Seconds (9.0-12.0)
[2024-11-12] MEDS: cefTRIAXone SODIUM 2,000 MG/50 ML BAG IV STA (13:05)
[2024-11-12] MEDS ORDERED: ACETAMINOPHEN 325 MG TAB PO PRN (13:10)
--- NOTE | 2024-11-12 13:10 | History & Physical Report ---
Date of Service November 12, 2024 Assessment & Plan (1) Multifocal pneumonia: (2) Lung transplant recipient: Plan 69 year old female with lung transplant presents to the ER due to SOB. #Acute Shortness of breath with possible left lower lobe pneumonia Patient will be admittd Placed on supplemntal oxygen. Placed on IV antibiotics ceftriaxone and azithromycin. Given history of lung transplant, may consider consult with pulmonary. #Chronic Kidney Disease Stage 3B Creatinine appears to be at baseline, much improved from last admission where patient had her renal function last admission #Lung transplant will continue tymlos, acyclovir, prednisone, atovaquone will hold azathioprine, tacrolimus Tacrolimus has been on hold since 10/24/24 VTE Prophylaxis - encourage ambulation, SCDs Disposition - admit to med/tele History of Present Illness Chief Complaint: SOB Primary Care Provider: JAXON Valles This is a 69 year old female present for shortness of breath. Patient reports having a productive cough with SOB at rest and exertion for 2-3 days. Patient denies any sick contacts. Patient denies any fever, chills, nausea, vomiting. Noted to be hypoxic in the ED. CHest x ray findings showed a consolidation. Allergies Allergy/AdvReac Type Severity Reaction Status Date / Time aspirin AdvReac Intermediate GI SYMPTOMS Verified 11/12/24 16:19 Home Medications Medication Instructions Recorded Confirmed Type escitalopram oxalate 10 mg tablet 15 mg PO QAM 08/05/22 11/12/24 History (Lexapro) Portable Oxygen #1 ea 09/15/22 08/08/24 Rx pantoprazole 40 mg tablet,delayed 40 mg PO QAM #30 tabs 11/06/23 11/12/24 Rx release (Protonix) albuterol sulfate 90 mcg/actuation 2 puff inhalation Q4H PRN 02/16/24 11/12/24 Rx aerosol inhaler shortness of breath or wheezing #8.5 grams fluticasone fur. 100 mcg-umeclid 1 inh inhalation DAILY #28 ea 02/16/24 11/12/24 Rx 62.5 mcg-vilant 25 mcg inhalat.powder (Trelegy Ellipta) aspirin 81 mg tablet,delayed 81 mg PO QAM 04/06/24 11/12/24 History release calcium carbonate 600 mg PO BID 04/06/24 11/12/24 History gabapentin 100 mg capsule 100 mg PO HS 04/06/24 11/12/24 History insulin lispro 100 unit/mL 1 sliding scale dose subcut 04/06/24 11/12/24 History subcutaneous pen DIRECTED letermovir 480 mg tablet (Prevymis) 480 mg PO QAM 04/06/24 11/12/24 History magnesium chloride 64 mg 64 mg PO QAM 04/06/24 11/12/24 History (magnesium chloride) tablet,delayed release prednisone 5 mg tablet 5 mg PO QAM 04/06/24 11/12/24 History rosuvastatin 5 mg tablet 5 mg PO HS 04/06/24 11/12/24 History acyclovir 200 mg capsule 400 mg PO AMPM 08/08/24 11/12/24 History carvedilol 12.5 mg tablet 12.5 mg PO AMPM 08/08/24 11/12/24 History cholecalciferol (vitamin D3) 25 25 mcg PO QAM 08/08/24 11/12/24 History mcg (1,000 unit) tablet (Vitamin D3) tacrolimus 0.5 mg capsule, 0 mg PO BID 08/08/24 11/12/24 History immediate-release abaloparatide (Tymlos) 80 mcg subcut DAILY 10/12/24 11/12/24 History azathioprine 50 mg tablet 50 mg PO QAM 10/12/24 11/12/24 History amlodipine 5 mg tablet 5 mg PO QAM 10/25/24 11/12/24 History bisacodyl 5 mg tablet,delayed 5 mg PO DAILY PRN Constipation 10/25/24 11/12/24 History release (Dulcolax (bisacodyl)) atovaquone 750 mg/5 mL oral 750 mg (5 mL) PO BID 30 days #300 10/27/24 11/12/24 Rx suspension (Mepron) mL Past Med/Surg History Problem List (Updated 11/13/24 @ 15:26 by Tray Kilgore MD) Pneumonia (Acute) B12 deficiency anemia Medication side effect (Acute) DUNG (acute kidney injury) (Acute) Acute hyperkalemia (Acute) Chronic kidney disease, stage 4 (severe) Hypocalcemia (Acute) Hypomagnesemia Anemia Multifocal pneumonia Hypoxia (Acute) Lung transplant recipient (Acute) Prediabetes Lower back pain Paroxysmal atrial tachycardia Acid reflux Ex-smoker COPD (chronic obstructive pulmonary disease) (Acute) Dyspnea Cough Acute on chronic respiratory failure with hypoxia (Acute) Dysfunction of both eustachian tubes Acute respiratory failure with hypoxia Paroxysmal atrial tachycardia Acute dyspnea (Acute) Lung transplant candidate Sacroiliitis Multiple pulmonary nodules no biopsies, monitored Anxiety with depression Medical History History of tobacco use Sleep apnea, obstructive CPAP History of peptic ulcer disease Family history of paroxysmal atrial tachycardia History of COVID-19 (~2021) x3 sob, cough, fatigue; resolved History of recent pneumonia (~09/2022) Surgical History History of lung transplant Hx of cardiac catheterization (~2022) Had in [place] as part of work up for [facility] to get on Lung Transplant l ist, no stents Hx of colonoscopy with polypectomy Hx of bilateral cataract extraction History of partial hysterectomy History of carpal tunnel surgery of right wrist History of broken collarbone sx to repair History of tooth extraction all teeth H/O partial thyroidectomy (~1989) d/t hemorrhaging?--unknown cause, no meds Family History Mother , from ovarian cancer Cancer Ovarian Sister Cancer Ovarian Father COPD (chronic obstructive pulmonary disease) Other No family history of adverse response to anesthesia Social History Smoking Status: Former smoker Tobacco Type: Cigarettes Age Started Using Tobacco: 17; Age Quit Using Tobacco: 64; packs per day: 1; Cigarettes Per Day: Less than a packet; Second Hand Exposure: Yes; Do You Dip or Chew Tobacco: No; Tobacco Cessation Education Requested by Patient: No Hx Alcohol Use: No Hx Substance Use: No Preferred Language: Azeri 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 Ability: Effective Application Support Intern 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 Beliefs That Will Affect Care: None marital status: Current Living Situation: Family Current Living Situation Comment: lives with sister Feels Safe at Home: Yes Safety Concerns: Feels Safe At This Time Assistive Devices: Oxygen - Continuous and Walker Review of Systems Constitutional: no fever and no body aches Eyes: no blind spots Ear, Nose, Mouth, Throat: no ear pain Respiratory: + cough and + dyspnea Cardiovascular: no chest pain Gastrointestinal: no abdominal pain Genitourinary: no dysuria Musculoskeletal: no back pain Integumentary: no acne Neurologic: no gait abnormality Psychiatric: no behavioral changes Endocrine: + fatigue Hematologic / Lymphatic: no easy bleeding Allergy / Immunological: no GI upset with certain foods Physical Exam Constitutional: WD/WN, vitals as above Eyes: PERRL, conjunctivae normal, anicteric sclerae ENMT: external ear and nose normal, oropharynx normal Neck: trachea midline, no thyromegaly Respiratory: normal respiratory effort, lungs clear to auscultation Cardiovascular: RRR, no murmur, no edema Gastrointestinal (Abdomen): normal bowel sounds, soft, nontender, no hepatosplenomegaly Musculoskeletal: no cyanosis or clubbing, extremities motor strength 5/5 Skin: no rashes, warm and dry Neurologic: PERRL, EOMI, accommodation nl, no face palsy, no dysarthria Psychiatric: A+Ox3, euthymic affect Lymphatic: no cervical or axillary lymphadenopathy Results & Data Results & Data Vital Signs (Past 12 Hours) Vital Signs Temp Pulse Pulse Resp BP BP Pulse Ox 11/12/24 13:00 69 18 178/83 H 94 11/12/24 12:00 66 14 169/88 H 99 11/12/24 11:06 82 L 11/12/24 11:00 62 17 191/89 H 90 11/12/24 10:58 60 24 91 11/12/24 10:58 59 L 25 H 191/89 H 91 11/12/24 10:58 91 11/12/24 10:58 11/12/24 10:39 62 21 182/91 H 92 11/12/24 10:39 63 11/12/24 10:22 90 11/12/24 10:02 37.0 C 70 20 171/78 H 91 O2 Del Method O2 Flow Rate 11/12/24 13:00 Room Air 11/12/24 12:00 Nasal Cannula 2 11/12/24 11:06 Room Air 11/12/24 11:00 11/12/24 10:58 Room Air 11/12/24 10:58 Room Air 11/12/24 10:58 Room Air 11/12/24 10:58 Room Air 11/12/24 10:39 11/12/24 10:39 11/12/24 10:22 Room Air 11/12/24 10:02 Room Air PG Care Time/CCT Total # of Minutes Spent Total Time Spent with Patient: Total time spent is greater than 50% in coordination of care (as documented) at patient's floor/unit and/or counseling patient: Coding Level of Care Code 19357 INT INP/OBS CARE 3/75MIN Diagnoses Multifocal pneumonia J18.9 Lung transplant recipient Z94.2
[2024-11-12] MEDS ORDERED: PHARMACY GLYCEMIC MGMT CONSULT PRN (13:14)
--- NOTE | 2024-11-12 13:39 | Emergency Department Note ---
Impression & Plan Pneumonia, Lung transplant recipient, Acute dyspnea ED Provider Note NAME: AVIVA MIMS AGE: 69 SEX: F : 1955 ARRIVES VIA: Walk-In INFORMANT: Patient, ED PROVIDER(S): Tray Kilgore MD CHIEF COMPLAINT: Shortness of breath HPI: This is a 69-year-old female present for shortness of breath. Patient states she feels similar to when she had pneumonia previously. She notes a new cough, clear productive sputum over the past 2 to 3 days as well. This is same time as new shortness of breath. She reports no fevers or chills with this. She does take MSET for medications for her lung transplant. She has no chest pain currently. No pleurisy. ROS: See above HPI for pertinent positives & negatives. A total of 10 systems reviewed and were otherwise negative. PAST MEDICAL HISTORY: See Below PAST SURGICAL HISTORY: See Below FAMILY HISTORY: See Below SOCIAL HISTORY: See Below HOME MEDICATIONS: See Below ALLERGIES: See Below VITALS: See Below PHYSICAL EXAMINATION: General: resting comfortably in no acute distress Head: Normocephalic and atraumatic Eyes: Normal inspection, extraocular muscles intact Ear, nose, throat: Normal external exam Neck: Normal range of motion Respiratory: Diminished in the left lower lung base Cardiovascular: Regular rate/rhythm, no murmur GI: soft, nontender, no guarding or rebound Extremities: nontender, moves all extremities Neuro: The patient awake and alert, appropriately conversive, no focal deficits, symmetric faces Skin: Warm, dry, and intact MEDICAL DECISION MAKING: This is a 69-year-old female present for shortness of breath. Patient is hypoxic, went down to 82% on room air. She states this feels somewhat of pneumonia. No chest pain/pleurisy. - Will screening x-ray, blood work - Chest x-ray independently by me is a focal mass in the left lower lobe concerning for pneumonia without pneumothorax -Blood reviewed showing hemoglobin 8.8, baseline. Creatinine is 1.29, also baseline. No severe leukocytosis or dehydration noted on blood work. -Due to new pneumonia, and respiration, will admit the patient at this time - Care discussed with Dr. Camp for admission Differential diagnosis: Pneumonia, pneumothorax, pleural effusion Diagnostics interpreted by me: ECG: ECG independently interpreted by me with normal sinus rhythm, rate of 66, normal axis, normal RI, normal QRS, normal QTc, no ST segment elevations consistent with STEMI criteria Cardiac Monitoring: An order was placed for continuous cardiac monitoring. The monitor shows a rate of 69 with sinus rhythm. Critical Care Note: I have personally spent 32 minutes of critical care time in the direct management of this patient. This includes bedside care, interpretation of diagnostic studies, and testing, discussion with consultants, patient, and family members, and other required patient management activities. This 32 minutes is in excess of all separately billable procedures. Past Med/Surg History Problem List (Updated 11/13/24 @ 15:26 by Tray Kilgore MD) Pneumonia (Acute) B12 deficiency anemia Medication side effect (Acute) DUNG (acute kidney injury) (Acute) Acute hyperkalemia (Acute) Chronic kidney disease, stage 4 (severe) Hypocalcemia (Acute) Hypomagnesemia Anemia Multifocal pneumonia Hypoxia (Acute) Lung transplant recipient (Acute) Prediabetes Lower back pain Paroxysmal atrial tachycardia Acid reflux Ex-smoker COPD (chronic obstructive pulmonary disease) (Acute) Dyspnea Cough Acute on chronic respiratory failure with hypoxia (Acute) Dysfunction of both eustachian tubes Acute respiratory failure with hypoxia Paroxysmal atrial tachycardia Acute dyspnea (Acute) Lung transplant candidate Sacroiliitis Multiple pulmonary nodules no biopsies, monitored Anxiety with depression Medical History History of tobacco use Sleep apnea, obstructive CPAP History of peptic ulcer disease Family history of paroxysmal atrial tachycardia History of COVID-19 (~2021) x3 sob, cough, fatigue; resolved History of recent pneumonia (~09/2022) Surgical History History of lung transplant Hx of cardiac catheterization (~2022) Had in [place] as part of work up for [facility] to get on Lung Transplant list, no stents Hx of colonoscopy with polypectomy Hx of bilateral cataract extraction History of partial hysterectomy History of carpal tunnel surgery of right wrist History of broken collarbone sx to repair History of tooth extraction all teeth H/O partial thyroidectomy (~1989) d/t hemorrhaging?--unknown cause, no meds Family History Mother , from ovarian cancer Cancer Ovarian Sister Cancer Ovarian Father COPD (chronic obstructive pulmonary disease) Other No family history of adverse response to anesthesia Social History Smoking Status: Former smoker Tobacco Type: Cigarettes Age Started Using Tobacco: 17; Age Quit Using Tobacco: 64; packs per day: 1; Cigarettes Per Day: Less than a packet; Second Hand Exposure: Yes; Do You Dip or Chew Tobacco: No; Tobacco Cessation Education Requested by Patient: No Hx Alcohol Use: No Hx Substance Use: No Preferred Language: Chinese 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 Ability: Effective Ladle Cleaner 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 Beliefs That Will Affect Care: None marital status: Current Living Situation: Family Current Living Situation Comment: lives with sister Feels Safe at Home: Yes Safety Concerns: Feels Safe At This Time Assistive Devices: Oxygen - Continuous and Walker Allergies Allergies Allergy/AdvReac Type Severity Reaction Status Date / Time aspirin AdvReac Intermediate GI SYMPTOMS Verified 11/12/24 16:19 Home Meds Home Medications Medication Instructions Recorded Confirmed escitalopram oxalate 10 mg tablet 15 mg PO QAM 08/05/22 11/12/24 (Lexapro) aspirin 81 mg tablet,delayed 81 mg PO QAM 04/06/24 11/12/24 release calcium carbonate 600 mg PO BID 04/06/24 11/12/24 gabapentin 100 mg capsule 100 mg PO HS 04/06/24 11/12/24 insulin lispro 100 unit/mL 1 sliding scale dose subcut 04/06/24 11/12/24 subcutaneous pen DIRECTED letermovir 480 mg tablet (Prevymis) 480 mg PO QAM 04/06/24 11/12/24 magnesium chloride 64 mg 64 mg PO QAM 04/06/24 11/12/24 (magnesium chloride) tablet,delayed release prednisone 5 mg tablet 5 mg PO QAM 04/06/24 11/12/24 rosuvastatin 5 mg tablet 5 mg PO HS 04/06/24 11/12/24 acyclovir 200 mg capsule 400 mg PO AMPM 08/08/24 11/12/24 carvedilol 12.5 mg tablet 12.5 mg PO AMPM 08/08/24 11/12/24 cholecalciferol (vitamin D3) 25 25 mcg PO QAM 08/08/24 11/12/24 mcg (1,000 unit) tablet (Vitamin D3) tacrolimus 0.5 mg capsule, 0 mg PO BID 08/08/24 11/12/24 immediate-release abaloparatide (Tymlos) 80 mcg subcut DAILY 10/12/24 11/12/24 azathioprine 50 mg tablet 50 mg PO QAM 10/12/24 11/12/24 amlodipine 5 mg tablet 5 mg PO QAM 10/25/24 11/12/24 bisacodyl 5 mg tablet,delayed 5 mg PO DAILY PRN Constipation 10/25/24 11/12/24 release (Dulcolax (bisacodyl)) Previous Rx's Medication Instructions Recorded Portable Oxygen #1 ea 09/15/22 pantoprazole 40 mg tablet,delayed 40 mg PO QAM #30 tabs 11/06/23 release (Protonix) albuterol sulfate 90 mcg/actuation 2 puff inhalation Q4H PRN 02/16/24 aerosol inhaler shortness of breath or wheezing #8.5 grams fluticasone fur. 100 mcg-umeclid 1 inh inhalation DAILY #28 ea 02/16/24 62.5 mcg-vilant 25 mcg inhalat.powder (Trelegy Ellipta) atovaquone 750 mg/5 mL oral 750 mg (5 mL) PO BID 30 days #300 10/27/24 suspension (Mepron) mL Results & Data (ED) Vital Signs Vital Signs - 24 hr 11/12/24 10:02 11/12/24 10:22 11/12/24 10:30 Temperature 37.0 C Temperature Source Oral Pulse Rate 70 Pulse Rate [Apical] Pulse Rate from SpO2 Sensor Respiratory Rate 20 Respiratory Effort / Characteristics Spontaneous Respiratory Depth Normal Normal Respiratory Pattern Regular Regular Blood Pressure 171/78 H Blood Pressure [Right Arm] Blood Pressure Mean 109 Blood Pressure Mean [Right Arm] Blood Pressure Position [Right Arm] Pulse Oximetry 91 90 Oxygen Delivery Method Room Air Room Air Oxygen Flow Rate Sepsis Recent Fever Within 48 Hours No Sepsis New/Unexplained Change in Mental Status No Sepsis Action Taken by Nursing No Action Required Oxygen Flow Rate - Titration Pulse Oximetry Post Tiitration 11/12/24 10:39 11/12/24 10:39 11/12/24 10:58 Temperature Temperature Source Pulse Rate 63 62 Pulse Rate [Apical] Pulse Rate from SpO2 Sensor 61 Respiratory Rate 21 Respiratory Effort / Characteristics Non-Labored Spontaneous SOB on Exertion Respiratory Depth Normal Respiratory Pattern Regular Blood Pressure 182/91 H Blood Pressure [Right Arm] Blood Pressure Mean 121 Blood Pressure Mean [Right Arm] Blood Pressure Position [Right Arm] Pulse Oximetry 92 Oxygen Delivery Method Room Air Oxygen Flow Rate Sepsis Recent Fever Within 48 Hours Sepsis New/Unexplained Change in Mental Status Sepsis Action Taken by Nursing Oxygen Flow Rate - Titration Pulse Oximetry Post Tiitration 11/12/24 10:58 11/12/24 10:58 11/12/24 10:58 Temperature Temperature Source Pulse Rate 60 Pulse Rate [Apical] 59 L Pulse Rate from SpO2 Sensor Respiratory Rate 25 H 24 Respiratory Effort / Characteristics Non-Labored Spontaneous Respiratory Depth Normal Respiratory Pattern Regular Blood Pressure Blood Pressure [Right Arm] 191/89 H Blood Pressure Mean Blood Pressure Mean [Right Arm] 123 Blood Pressure Position [Right Arm] Semi-fowlers Pulse Oximetry 91 91 91 Oxygen Delivery Method Room Air Room Air Room Air Oxygen Flow Rate Sepsis Recent Fever Within 48 Hours Sepsis New/Unexplained Change in Mental Status Sepsis Action Taken by Nursing Oxygen Flow Rate - Titration Pulse Oximetry Post Tiitration 11/12/24 11:00 11/12/24 11:06 11/12/24 12:00 Temperature Temperature Source Pulse Rate 62 Pulse Rate [Apical] 66 Pulse Rate from SpO2 Sensor 62 Respiratory Rate 17 14 Respiratory Effort / Characteristics Non-Labored Spontaneous Respiratory Depth Normal Respiratory Pattern Regular Blood Pressure 191/89 H Blood Pressure [Right Arm] 169/88 H Blood Pressure Mean 123 Blood Pressure Mean [Right Arm] 115 Blood Pressure Position [Right Arm] Semi-fowlers Pulse Oximetry 90 82 L 99 Oxygen Delivery Method Room Air Nasal Cannula Oxygen Flow Rate 2 Sepsis Recent Fever Within 48 Hours Sepsis New/Unexplained Change in Mental Status Sepsis Action Taken by Nursing Oxygen Flow Rate - Titration 2 Pulse Oximetry Post Tiitration 93 11/12/24 13:00 Temperature Temperature Source Pulse Rate Pulse Rate [Apical] 69 Pulse Rate from SpO2 Sensor Respiratory Rate 18 Respiratory Effort / Characteristics Non-Labored Spontaneous Respiratory Depth Normal Respiratory Pattern Regular Blood Pressure Blood Pressure [Right Arm] 178/83 H Blood Pressure Mean Blood Pressure Mean [Right Arm] 114 Blood Pressure Position [Right Arm] Semi-fowlers Pulse Oximetry 94 Oxygen Delivery Method Room Air Oxygen Flow Rate Sepsis Recent Fever Within 48 Hours Sepsis New/Unexplained Change in Mental Status Sepsis Action Taken by Nursing Oxygen Flow Rate - Titration Pulse Oximetry Post Tiitration Laboratory Data 11/13/24 06:28 11/13/24 06:28 Lab Results 11/12/24 11/12/24 Range/Units 11:21 12:00 WBC 6.72 (4.8-10.8) K/ul RBC 2.56 L (4.20-5.40) M/uL Hgb 8.8 L (12.0-16.0) g/dl Hct 26.4 L (37.0-47.0) % MCV 103.1 H (80.0-100.0) fL MCH 34.4 H (25.0-34.0) pg MCHC 33.3 (32.0-36.0) g/dL RDW Std Deviation 55.3 H (36.4-46.3) fL RDW Coeff of Audrey 14.6 H (11.5-14.5) % Plt Count 241 (130-400) K/uL MPV 10.0 (9.4-12.4) fL Immature Gran % (Auto) 0.4 % Neut % (Auto) 71.3 % Lymph % (Auto) 11.6 % Petroleum % (Auto) 10.0 % Eos % (Auto) 6.0 % Baso % (Auto) 0.7 % Neut # (Auto) 4.79 (1.40-6.50) K/uL Lymph # (Auto) 0.78 L (1.20-3.40) K/uL Petroleum # (Auto) 0.67 H (0.11-0.59) K/uL Eos # (Auto) 0.40 (0.00-0.50) K/uL Baso # (Auto) 0.05 (0.00-0.20) K/uL Immature Gran # (Auto) 0.03 (0.01-0.20) K/uL PT 9.8 (9.0-12.0) Seconds INR 0.9 (0.9-1.1) APTT 24 (21-31) Seconds PTT Ratio 0.9 Sodium 142 (136-145) mmol/L Potassium 4.7 (3.5-5.1) mmol/L Chloride 111 H (98-107) mmol/L Carbon Dioxide 23 (21-32) mmol/L Anion Gap 8 (3-11) BUN 21 (6-23) mg/dl Creatinine 1.29 H (0.6-1.2) mg/dl Est Cr Clr Drug Dosing 33.6 ml/min eGFR 44.65 BUN/Creatinine Ratio 16.3 (10-20) Glucose 86 (70-99(Fasting)) mg/dl Calcium 8.5 L (8.6-10.3) mg/dl Total Bilirubin 0.4 (0.2-1.0) mg/dl AST 19 (13-39) U/L ALT 5 L (7-52) U/L Alkaline Phosphatase 56 (34-104) U/L Troponin I High Sens 5.3 (0-14) pg/ml C-Reactive Protein 4.29 H (0-0.5) mg/dl Total Protein 5.9 L (6.0-8.3) gm/dl Albumin 3.3 L (3.4-5.0) gm/dl Globulin 2.6 (2.5-4.0) gm/dl Albumin/Globulin Ratio 1.3 (0.9-2) Procalcitonin 0.05 (0-0.5) ng/ml Administered Medications Acyclovir (Acyclovir 200 Mg Cap) 400 mg PO BID [facility] Stop: 12/12/24 20:59 Last Admin: 11/13/24 14:02 Dose: Not Given Documented By: Admin: 11/12/24 20:46 Dose: 400 mg Documented By: PATIENCE Amlodipine Besylate (Amlodipine Besylate 5 Mg Tab) 5 mg PO [facility] Stop: 12/13/24 08:59 Last Admin: 11/13/24 10:57 Dose: 5 mg Documented By: CLIVE Aspirin (Aspirin 81 Mg Ectab) 81 mg PO [facility] Stop: 12/13/24 08:59 Last Admin: 11/13/24 08:55 Dose: 81 mg Documented By: CLIVE Carvedilol (Carvedilol 12.5 Mg Tab) [facility] [place]: 12/12/24 19:59 Last Admin: 11/13/24 10:03 Dose: 12.5 mg Documented By: Admin: 11/12/24 20:46 Dose: 12.5 mg Documented By: PATIENCE Escitalopram Oxalate (Escitalopram Oxalate 10 Mg Tab) 15 mg PO [facility] Stop: 12/13/24 08:59 Last Admin: 11/13/24 08:56 Dose: 15 mg Documented By: CLIVE Fluticasone Furoate (Fluticasone Furoate 100mcg 14 Puffs/Inhaler) 1 puffs INH DAILY [facility] Stop: 12/13/24 08:59 Last Admin: 11/13/24 08:57 Dose: 1 puffs Documented By: CLIVE Gabapentin (Gabapentin 100 Mg Cap) 100 mg PO HS [facility] Stop: 12/12/24 20:59 Last Admin: 11/12/24 23:33 Dose: 100 mg Documented By: BADULAZIZ Cefepime HCl (Maxipime 2000mg) 2,000 mg in 20 mls @ 5 mls/min IV Q12H [facility]; Protocol Stop: 11/20/24 08:29 Last Admin: 11/13/24 09:30 Dose: 5 mls/min Documented By: CLIVE Azithromycin (Zithromax) 500 mg in 255 mls @ 127.5 mls/hr IV Q24H [facility] Stop: 11/15/24 11:59 Last Admin: 11/13/24 14:44 Dose: 127.5 mls/hr Documented By: CLIVE Metronidazole (Flagyl) 500 mg in 100 mls @ 100 mls/hr IV Q8H QIAN; Protocol Stop: 11/20/24 09:59 Last Infusion: 11/13/24 10:56 Dose: Infused Documented By: Admin: 11/13/24 10:02 Dose: 100 mls/hr Documented By: CLIVE Insulin Aspart (Insulin Aspart Per Unit Charge) 0 units SC ACHS [facility] Stop: 12/12/24 16:29 Last Admin: 11/13/24 12:12 Dose: Not Given Documented By: Admin: 11/13/24 08:03 Dose: Not Given Documented By: Admin: 11/12/24 20:52 Dose: Not Given Documented By: Admin: 11/12/24 18:37 Dose: Not Given Documented By: MNE Magnesium Chloride (Magnesium Chloride W/Calcium 64mg Delayed Rel Tab) 64 mg PO QAM [facility] Stop: 12/13/24 08:59 Last Admin: 11/13/24 08:56 Dose: 64 mg Documented By: CLIVE Miscellaneous (Abaloparatide [Tymlos] 80 Mcg (3,120 Mcg/1.56 Ml) Pen Injector - Order Awaiting Action) 1 each N/A QS [facility] Stop: 12/12/24 19:59 Last Admin: 11/13/24 14:11 Dose: Not Given Documented By: Admin: 11/13/24 08:03 Dose: Not Given Documented By: Admin: 11/13/24 01:36 Dose: Not Given Documented By: Admin: 11/12/24 23:40 Dose: Not Given Documented By: ABDULAZIZ Miscellaneous (Letermovir [Prevymis] 480 Mg Tablet - Order Awaiting Action) 1 each N/A QS [facility] Stop: 12/12/24 19:59 Last Admin: 11/13/24 14:11 Dose: Not Given Documented By: Admin: 11/13/24 08:03 Dose: Not Given Documented By: Admin: 11/13/24 01:36 Dose: Not Given Documented By: Admin: 11/12/24 23:40 Dose: Not Given Documented By: ABDULAZIZ Pantoprazole Sodium (Pantoprazole 40 Mg Tab) 40 mg PO QAM [facility] Stop: 12/13/24 08:59 Last Admin: 11/13/24 08:56 Dose: 40 mg Documented By: CLIVE Rosuvastatin Calcium (Rosuvastatin Calcium 5 Mg Tab) 5 mg PO HS [facility] Stop: 12/12/24 20:59 Last Admin: 11/12/24 23:34 Dose: 5 mg Documented By: ABDULAZIZ Trimethoprim/Sulfamethoxazole (Sulfamethoxazole/Trimethoprim Ds 800/160mg Tab) 1 tab PO Q12 [facility] Stop: 11/20/24 08:59 Last Admin: 11/13/24 12:18 Dose: 1 tab Documented By: CLIVE Umeclidinium/Vilanterol (Umeclidinium/Vilanterol 62.5/25mcg 7 Puffs/Inhaler) 1 puffs INH DAILY [facility] Stop: 12/13/24 08:59 Last Admin: 11/13/24 08:57 Dose: 1 puffs Documented By: CLIVE Vitamin D (Cholecalciferol 25 Mcg (1000 Units) Tab) 25 mcg PO QAM [facility] Stop: 12/13/24 08:59 Last Admin: 11/13/24 08:55 Dose: 25 mcg Documented By: CLIVE Discontinued Medications Atovaquone (Atovaquone 750 Mg/5 Ml Udc) 750 mg PO BID [facility] Stop: 12/12/24 20:59 Last Admin: 11/13/24 08:57 Dose: 750 mg Documented By: Admin: 11/12/24 23:34 Dose: 750 mg Documented By: ABDULAZIZ Ceftriaxone Sodium (Rocephin) 2,000 mg in 50 mls @ 100 mls/hr IV NOW STA Stop: 11/12/24 12:38 Last Infusion: 11/12/24 13:35 Dose: Infused Documented By: Admin: 11/12/24 13:05 Dose: 100 mls/hr Documented By: VERN Azithromycin (Zithromax) 500 mg in 255 mls @ 127.5 mls/hr IV NOW ONE; Protocol Stop: 11/12/24 14:08 Last Infusion: 11/12/24 16:39 Dose: Infused Documented By: Admin: 11/12/24 13:44 Dose: 127.5 mls/hr Documented By: VERN Prednisone (Prednisone 5 Mg Tab) 5 mg PO QAM [facility] Stop: 12/13/24 08:59 Last Admin: 11/13/24 08:56 Dose: 5 mg Documented By: CLIVE Imaging Data Radiologist's Impression: Chest X-Ray 11/12/24 10:05 XR chest 1V not portable CLINICAL HISTORY: Chest pain, nonspecific COMPARISON STUDY: 10/12/2024 FINDINGS: Heart size and pulmonary vasculature are normal. There is interval patchy consolidation at the left base with partial obscuration of the left hemidiaphragm. There is mild blunting of the left costophrenic angle. No pneumothorax. IMPRESSION: Pneumonia lower left lung with possible trace left pleural effusion. ACT 112: Negative or not required by law. Electronically signed by: Tre Payne M.D. 11/12/2024 11:05 AM Discharge Plan Visit Data Chief Complaint: Shortness of Breath/Dyspnea Stated Complaint: SOB,BREATHING ISSUE ED Provider: Tray Kilgore Discharge Problem: Pneumonia, Lung transplant recipient, Acute dyspnea Patient Disposition: Admitted As Inpatient Condition: Fair Discharge Instructions Interventions: ED Discharge Assessment Last Done: 11/12/24 21:16
[2024-11-12] MEDS: AZITHROMYCIN 500 MG/255 ML BAG IV ONE (13:44)
[2024-11-12] MEDS ORDERED: DEXTROSE 50% 50 ML SYRINGE IV PRN (14:15)
[2024-11-12] MEDS ORDERED: CARBOHYDRATES FOR HYPOGLYCEMIA PO PRN (14:15)
[2024-11-12] MEDS ORDERED: GLUCAGON FOR INJ 1 MG VIAL SQ PRN (14:15)
[2024-11-12] MEDS ORDERED: GLUCOSE 40% GEL 15 GM TUBE PO PRN (14:15)
[2024-11-12] MEDS ORDERED: GLUCOSE 10 TAB/TUBE PO PRN (14:15)
[2024-11-12] MEDS: INSULIN ASPART PER UNIT CHARGE SC SCH (18:37)
[2024-11-12] MEDS: ACYCLOVIR 200 MG CAP PO SCH (20:46)
--- NOTE | 2024-11-12 22:45 | Electrocardiogram Report ---
Test Reason : Blood Pressure : */* mmHG Vent. Rate : 66 BPM Atrial Rate : 66 BPM P-R Int : 168 ms QRS Dur : 82 ms QT Int : 386 ms P-R-T Axes : 73 58 69 degrees QTcB Int : 404 ms Normal sinus rhythm Normal ECG When compared with ECG of 25-Oct-2024 12:18, Criteria for Inferior infarct are no longer Present T wave inversion no longer evident in Inferior leads T wave amplitude has decreased in Lateral leads Confirmed by Marcello Rodríguez ([id number]) on 11/12/2024 10:45:13 PM Referred By: Confirmed By: Marcello Rodríguez
[2024-11-12] MEDS: GABAPENTIN 100 MG CAP PO SCH (23:33)
[2024-11-12] MEDS: ATOVAQUONE 750 MG/5 ML UDC PO SCH (23:34)
[2024-11-12] MEDS: ROSUVASTATIN CALCIUM 5 MG TAB PO SCH (23:34)
[2024-11-13 06:56] LABS: Hematocrit (blood only) 28.1 % (37.0-47.0); Hemoglobin 8.9 g/dl (12.0-16.0); Mean Corpuscular Hemoglobin 32.8 pg (25.0-34.0); Mean Corpuscular Volume 103.7 fL (80.0-100.0); Platelet Count 237 K/uL (130-400); RDW Standard Deviation 55.7 fL (36.4-46.3); Red Blood Count 2.71 M/uL (4.20-5.40); White Blood Count 5.86 K/ul (4.8-10.8)
[2024-11-13 07:18] LABS: Anion Gap 3.0 (3-11); Blood Urea Nitrogen 23.0 mg/dl (6-23); Calcium 7.9 mg/dl (8.6-10.3); Carbon Dioxide 30.0 mmol/L (21-32); Chloride 108.0 mmol/L (98-107); Creatinine Clr Calc Pharmacy 31.6 ml/min; Glucose 88.0 mg/dl (70-99(Fasting)); Potassium 4.5 mmol/L (3.5-5.1); Sodium 141.0 mmol/L (136-145)
[2024-11-13] MEDS: ASPIRIN 81 MG ECTAB PO SCH (08:55)
[2024-11-13] MEDS: CHOLECALCIFEROL 25 MCG (1000 UNITS) TAB PO SCH (08:55)
[2024-11-13] MEDS: ESCITALOPRAM OXALATE 10 MG TAB PO SCH (08:56)
[2024-11-13] MEDS: MAGNESIUM CHLORIDE W/CALCIUM 64MG DELAYED REL TAB PO SCH (08:56)
[2024-11-13] MEDS: UMECLIDINIUM/VILANTEROL 62.5/25MCG 7 PUFFS/INHALER INH SCH (08:57)
[2024-11-13] MEDS: FLUTICASONE FUROATE 100MCG 14 PUFFS/INHALER INH SCH (08:57)
[2024-11-13] MEDS ORDERED: NON-FORMULARY MEDICATION (Fluticasone-Umeclidin-Vilanter [Trelegy Ellipta] 100-62.5-25 mcg INH SCH (09:00)
--- NOTE | 2024-11-13 09:26 | XRay Report ---
XR chest 2V PA/lateral CLINICAL HISTORY: HYpoxia COMPARISON STUDY: 11/12/2024 FINDINGS: Heart size and pulmonary vasculature are normal. Stable hyperexpanded lungs. There is stabl e opacity at the left lung base with blunting of the left costophrenic angle, grossly stable. On the lateral view there is oblong density within the left major fissure consistent with the fissural fluid seen on the prior chest CT of 08/27/2024. No pneumothorax. IMPRESSION: Stable exam. ACT 112: Negative or not required by law. Electronically signed by: Tre Payne M.D. 11/13/2024 9:25 AM
[2024-11-13] MEDS: CEFEPIME 2000MG 2,000 MG/20 ML SYR IV SCH (09:30)
[2024-11-13] MEDS ORDERED: CEFEPIME 2000MG 2,000 MG/20 ML SYR IV SCH (09:30)
--- NOTE | 2024-11-13 09:39 | Pharmacy Report ---
Pharmacy Glycemic Short Note 2 - Date of Service November 13, 2024 - Glycemic Short BSG Results (Last 24 hours): 11/12/24 11/12/24 11/12/24 11:21 17:45 20:50 Glucose 86 POC Glucose 77 107 H 11/13/24 06:28 Glucose 88 POC Glucose OUTPATIENT ANTIDIABETIC REGIMEN: * Novolog SSI * A1c 6.2% 10/12/24 ASSESSMENT: * 69 yo F, type 2 DM on SSI only at home, PMHx lung transplant, admitted with LLL Pneumonia. * Euglycemic requiring 0 units of insulin so far this admission, will continue loose NovoLog parameters at this time. PLAN FOR INPATIENT GLYCEMIC CONTROL: * Basal insulin * None at this time * Bolus insulin * NovoLog per scale ACHS or Q6hrs while NPO * Goal Range: Low 110 mg/dL - High 140 mg/dL * Correction Factor: 50 mg/dL/unit * Nutritional / Prandial insulin per carb ratio of 1 unit per 25 grams CHO consumed
[2024-11-13] MEDS: metroNIDAZOLE 500 MG/100 ML BAG IV SCH (10:02)
[2024-11-13 11:20] LABS: Chlamydia pneumoniae PCR Not Detected (NotDetected); Coronavirus 229E PCR Not Detected (NotDetected); Coronavirus CoV-2 (COVID19)PCR Not Detected (NotDetected); Coronavirus HKU1 PCR Not Detected (NotDetected); Coronavirus NL63 PCR Not Detected (NotDetected); Coronavirus OC43PCR Not Detected (NotDetected); Human Metapneumovirus PCR Not Detected (NotDetected); Parainfluenza Virus 1 PCR Not Detected (NotDetected); Parainfluenza Virus 2 PCR Not Detected (NotDetected); Parainfluenza Virus 3 PCR Not Detected (NotDetected); Parainfluenza Virus 4 PCR Not Detected (NotDetected); Respiratory Syncytial VirusPCR Not Detected (NotDetected); Rhinovirus/Enterovirus PCR Not Detected (NotDetected)
[2024-11-13] MEDS: SULFAMETHOXAZOLE/TRIMETHOPRIM DS 800/160MG TAB PO SCH (12:18)
--- NOTE | 2024-11-13 13:06 | Pulmonary Consultation ---
Date of Consultation November 13, 2024 Assessment & Plan (1) COPD (chronic obstructive pulmonary disease): COPD type: unspecified COPD Qualified Code(s): J44.9 - Chronic obstructive pulmonary disease, unspecified (2) Lung transplant recipient: (3) Hypoxia: (4) Dyspnea: (5) Multifocal pneumonia: Plan Masha Mcneil is a 69-year-old female with past medical history of B12 deficiency, anemia, CKD stage IV, paroxysmal atrial tachycardia, GERD, COPD, Lung transplant at [place] a year ago on immunosuppression, anxiety, depression, and sacroiliitis; who presented to [facility] on 11/12/2024 with complaints of shortness of breath. Chest x-ray showed left lower lobe infiltrate with small effusion. Patient admitted for concern of pneumonia. Lung transplant on chronic immunosuppression -Transplant performed at [facility] approximately 1 year ago. -Cont prednisone. Tacrolimus had been placed on hold 10/24/2024 with no restart date. Would temporarily hold Imuran in setting of pneumonia. -Called [facility] lung transplant to discuss case and any recs. Return call pending. Hypoxic respiratory failure likely related to LLL pneumonia; COPD -CT chest 11/13/2024 shows dense left lower lobe consolidation with small possible loculated effusion. -Procalcitonin 0.05. Afebrile. -Not bronchospastic. Does not appear to be in COPD exacerbation. -Broaden antibiotics to bactrim, cefepime, flagyl, and azithromycin. -Fungitell, and LDH pending to assess for PJP. Patient was on PJP prophylaxis. -Continue acyclovir prophylaxis. Dyspnea; Hypoxemia -Maintain SpO2 > 92%. Currently on 2L NC. Thank you for allowing us to participate in this patient's care. Please reach out with any question or concerns. Supervising Physician Co-Signing Physician Notes Patient separately seen and examined from [facility]. Agree with the note as above unless otherwise specified. Patient with left lung transplant for COPD less than 1 year ago. She presents with signs and symptoms of pneumonia and chest x-ray concerning for left-sided pleural effusion along with infiltrate. We have ordered a chest CT to further evaluate the parenchyma and pleural effusion which reveals a small to moderate loculated left pleural effusion with volume of fluid decreased from August. Trace right pleural effusion is seen. Dense left lung consolidation noted with debris in the left lower lobe. 6 mm right lower lobe pulmonary nodule noted as well. Patient with a reported history of stenotrophomonas based on transplant notes. Patient started on Bactrim, cefepime, Flagyl and azithromycin. Transplant team contacted [facility] who is excepting the patient for transfer. Patient will likely need bronchoscopy to clear secretions from the left lower lobe and possible transbronchial biopsies to evaluate for rejection and other transplant related complications. Continue ICS/LABA/LAMA inhaler. Continue home acyclovir. Hold tacrolimus. Check FK level. Hold Imuran due to acute pneumonia. On exam she appears stable and is requiring 2 L of oxygen. Nasal cannula in place. Rhonchi in the left lower lobe. No wheezes or increased work of breathing. Cardiac exam is benign. Nonfocal neurological exam. Will continue to follow while she remains in the hospital. History of Present Illness Reason for Consultation: Left lower lobe pneumonia in setting of lung transplant. Attending Physician: Vipul Camp History of Present Illness Masha Mcneil is a 69-year-old female with past medical history of B12 deficiency, anemia, CKD stage IV, paroxysmal atrial tachycardia, GERD, COPD, Lung transplant at [place] a year ago on immunosuppression, anxiety, depression, and sacroiliitis; who presented to [facility] on 11/12/2024 with complaints of shortness of breath. Of note she was recent treated in September 2024 for Strep Pneumonia. since then the patient has recovered and been active doing yard work. On 11/11/2024 th patient noted some shortness of breath with exertion which progressed causing her to come to [facility] ED on 11/12/2024. She was noted be hypoxic with SpO2 down to 82% on room air. The patient was placed on oxygen. Chest x-ray showed a left lower lobe infiltrate with small effusion. Patient started on azithromycin and ceftriaxone. She was admitted to the hospitalist service with pulmonary consulted for evaluation and management of pneumonia in setting of lung transplant on chronic immunosuppression. Allergies Allergy/AdvReac Type Severity Reaction Status Date / Time aspirin AdvReac Intermediate GI SYMPTOMS Verified 11/12/24 16:19 Home Medications Medication Instructions Recorded Confirmed Type escitalopram oxalate 10 mg tablet 15 mg PO QAM 08/05/22 11/12/24 History (Lexapro) Portable Oxygen #1 ea 09/15/22 08/08/24 Rx pantoprazole 40 mg tablet,delayed 40 mg PO QAM #30 tabs 11/06/23 11/12/24 Rx release (Protonix) albuterol sulfate 90 mcg/actuation 2 puff inhalation Q4H PRN 02/16/24 11/12/24 Rx aerosol inhaler shortness of breath or wheezing #8.5 grams fluticasone fur. 100 mcg-umeclid 1 inh inhalation DAILY #28 ea 02/16/24 11/12/24 Rx 62.5 mcg-vilant 25 mcg inhalat.powder (Trelegy Ellipta) aspirin 81 mg tablet,delayed 81 mg PO QAM 04/06/24 11/12/24 History release calcium carbonate 600 mg PO BID 04/06/24 11/12/24 History gabapentin 100 mg capsule 100 mg PO HS 04/06/24 11/12/24 History insulin lispro 100 unit/mL 1 sliding scale dose subcut 04/06/24 11/12/24 History subcutaneous pen DIRECTED letermovir 480 mg tablet (Prevymis) 480 mg PO QAM 04/06/24 11/12/24 History magnesium chloride 64 mg 64 mg PO QAM 04/06/24 11/12/24 History (magnesium chloride) tablet,delayed release prednisone 5 mg tablet 5 mg PO QAM 04/06/24 11/12/24 History rosuvastatin 5 mg tablet 5 mg PO HS 04/06/24 11/12/24 History acyclovir 200 mg capsule 400 mg PO AMPM 08/08/24 11/12/24 History carvedilol 12.5 mg tablet 12.5 mg PO AMPM 08/08/24 11/12/24 History cholecalciferol (vitamin D3) 25 25 mcg PO QAM 08/08/24 11/12/24 History mcg (1,000 unit) tablet (Vitamin D3) tacrolimus 0.5 mg capsule, 0 mg PO BID 08/08/24 11/12/24 History immediate-release abaloparatide (Tymlos) 80 mcg subcut DAILY 10/12/24 11/12/24 History azathioprine 50 mg tablet 50 mg PO QAM 10/12/24 11/12/24 History amlodipine 5 mg tablet 5 mg PO QAM 10/25/24 11/12/24 History bisacodyl 5 mg tablet,delayed 5 mg PO DAILY PRN Constipation 10/25/24 11/12/24 History release (Dulcolax (bisacodyl)) atovaquone 750 mg/5 mL oral 750 mg (5 mL) PO BID 30 days #300 10/27/24 11/12/24 Rx suspension (Mepron) mL Patient History Medical History History of tobacco use Sleep apnea, obstructive CPAP History of peptic ulcer disease Family history of paroxysmal atrial tachycardia History of COVID-19 (~2021) x3 sob, cough, fatigue; resolved History of recent pneumonia (~09/2022) Surgical History History of lung transplant Hx of cardiac catheterization (~2022) Had in [place] as part of work up for [facility] to get on Lung Transplant list, no stents Hx of colonoscopy with polypectomy Hx of bilateral cataract extraction History of partial hysterectomy History of carpal tunnel surgery of right wrist History of broken collarbone sx to repair History of tooth extraction all teeth H/O partial thyroidectomy (~1989) d/t hemorrhaging?--unknown cause, no meds Family History Mother , from ovarian cancer Cancer Ovarian Sister Cancer Ovarian Father COPD (chronic obstructive pulmonary disease) Other No family history of adverse response to anesthesia Social History Smoking Status: Former smoker Tobacco Type: Cigarettes Age Started Using Tobacco: 17; Age Quit Using Tobacco: 64; packs per day: 1; Cigarettes Per Day: Less than a packet; Second Hand Exposure: Yes; Do You Dip or Chew Tobacco: No; Tobacco Cessation Education Requested by Patient: No Hx Alcohol Use: No Hx Substance Use: No Preferred Language: Beninese 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 Ability: Effective Registration Coordinator 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 Beliefs That Will Affect Care: None marital status: Current Living Situation: Family Current Living Situation Comment: lives with sister Feels Safe at Home: Yes Safety Concerns: Feels Safe At This Time Assistive Devices: Oxygen - Continuous and Walker Review of Systems 2 Review of Systems: All systems reviewed & are unremarkable except as noted in HPI & below Physical Exam 2 Physical Exam: VITALS: Reviewed. WEIGHT/BMI reviewed. GEN: State age appearing, well-developed, NAD. PSYCH: Good Judgment. AOx3. Normal memory, mood, and affect. HEENT -Head: NC/AT; -Eyes: PERRL, EOMI. No discharge or redn ess; -Ears: External ears are normal. -Nose: Normal nares. NECK: Supple, with no masses. CV: RRR, no m/r/g. LUNGS: Clear in right upper and lower lobe, Clear left upper lobe with crackles heard over left lower lobe. Chest rise symmetrical, Breathing nonlabored. ABD: Soft, NT/ND, NBS, no masses or organomegaly. : N/A SKIN: Warm, well perfused. No skin rashes or abnormal lesions. MSK: No deformities, Normal gait. EXT: No clubbing, cyanosis, or edema. NEURO: Normal muscle strength and tone. No focal deficits. Results & Data Results & Data Vital Signs (Past 12 Hours) Vital Signs Temp Pulse Resp BP Pulse Ox O2 Del Method O2 Flow Rate 11/13/24 07:48 37.0 C 60 16 145/63 H 95 Nasal Cannula 2 11/13/24 07:45 Nasal Cannula 2 Laboratory Results 11/13/24 06:28 11/13/24 06:28 Abnormal Lab Results 11/12/24 11/12/24 11/12/24 11:21 17:45 20:50 WBC RBC Hgb Hct MCV MCH MCHC RDW Std Deviation RDW Coeff of Audrey Plt Count MPV Sodium Potassium Chloride Carbon Dioxide Anion Gap BUN Creatinine Est Cr Clr Drug Dosing eGFR BUN/Creatinine Ratio Glucose POC Glucose 77 107 H Calcium C-Reactive Protein 4.29 H Adenovirus (PCR) B. pertussis DNA (PCR) B.parapertussis DNA PCR C. pneumoniae DNA (PCR) Coronavirus OC43 (PCR) Coronavirus HKU1 (PCR) Coronavirus 229E (PCR) SARS-CoV-2 (PCR) Coronavirus NL63 (PCR) Human Metapneumovir PCR Influenza Type A (PCR) Influenza Type B (PCR) M. pneumoniae (PCR) Parainfluenza 1 (PCR) Parainfluenza 2 (PCR) Parainfluenza 3 (PCR) Parainfluenza 4 (PCR) RSV (PCR) Entero/Rhino (PCR) 11/13/24 11/13/24 11/13/24 06:28 09:05 12:25 WBC 5.86 RBC 2.71 L Hgb 8.9 L Hct 28.1 L MCV 103.7 H MCH 32.8 MCHC 31.7 L RDW Std Deviation 55.7 H RDW Coeff of Audrey 14.7 H Plt Count 237 MPV 9.6 Sodium 141 Potassium 4.5 Chloride 108 H Carbon Dioxide 30 Anion Gap 3 BUN 23 Creatinine 1.37 H Est Cr Clr Drug Dosing 31.6 eGFR 41.54 BUN/Creatinine Ratio 16.8 Glucose 88 POC Glucose 158 H Calcium 7.9 L C-Reactive Protein 4.40 H Adenovirus (PCR) Not Detected B. pertussis DNA (PCR) Not Detected B.parapertussis DNA PCR Not Detected C. pneumoniae DNA (PCR) Not Detected Coronavirus OC43 (PCR) Not Detected Coronavirus HKU1 (PCR) Not Detected Coronavirus 229E (PCR) Not Detected SARS-CoV-2 (PCR) Not Detected Coronavirus NL63 (PCR) Not Detected Human Metapneumovir PCR Not Detected Influenza Type A (PCR) Not Detected Influenza Type B (PCR) Not Detected M. pneumoniae (PCR) Not Detected Parainfluenza 1 (PCR) Not Detected Parainfluenza 2 (PCR) Not Detected Parainfluenza 3 (PCR) Not Detected Parainfluenza 4 (PCR) Not Detected RSV (PCR) Not Detected Entero/Rhino (PCR) Not Detected Diagnostic Findings Chest X-Ray 11/13/24 06:45 XR chest 2V PA/lateral CLINICAL HISTORY: HYpoxia COMPARISON STUDY: 11/12/2024 FINDINGS: Heart size and pulmonary vasculature are normal. Stable hyperexpanded lungs. There is stable opacity at the left lung base with blunting of the left costophrenic angle, grossly stable. On the lateral view there is oblong density within the left major fissure consistent with the fissural fluid seen on the prior chest CT of 08/27/2024. No pneumothorax. IMPRESSION: Stable exam. ACT 112: Negative or not required by law. Electronically signed by: Tre Payne M.D. 11/13/2024 9:25 AM PG Care Time/CCT Total # of Minutes Spent Total Time Spent with Patient: Total time spent is greater than 50% in coordination of care (as documented) at patient's floor/unit and/or counseling patient: Coding Level of Care Code 87699 INT INP/OBS CARE 3/75MIN Diagnoses COPD (chronic obstructive pulmonary disease) J44.9 COPD type: unspecified COPD Lung transplant recipient Z94.2 Hypoxia R09.02 Dyspnea R06.00 Multifocal pneumonia J18.9
--- NOTE | 2024-11-13 13:50 | CT Scan Report ---
CT SCAN OF THE CHEST WITHOUT IV CONTRAST CLINICAL HISTORY: Left lower lobe pneumonia COMPARISON STUDY: Chest CT scans dated 08/27/2024 10/13/2023. Chest x-ray dated 11/13/2024 TECHNIQUE: CT scan of the thorax was performed from the thoracic inlet to the upper abdomen. Images are reviewed in the axial, sagittal, and coronal planes. IV contrast was not administered for this ex amination as per the referring clinician. A dose lowering technique was utilized adhering to the maddison Paula. CT DOSE: 230.29 mGy.cm FINDINGS: Thyroid: The left lobe is enlarged and heterogeneous, typical for goiter. The right lobe is diminutiv e. Thoracic aorta: There is mild atherosclerotic calcification of the thoracic aorta, which is normal in caliber and demonstrates standard 3-vessel arch anatomy. Heart: The heart is enlarged noting a small pericardial effusion. The coronary arteries are densely c alcified. The pulmonary trunk is dilated, measuring 3.4 cm in diameter. This suggests pulmonary arter y hypertension. Lungs and pleural spaces: There is advanced emphysematous change. The trachea and central airways are clear. There is a small to moderate and loculated appearing pleural effusion at the left lung base. Loculated fluid seen tracking along the left major fissure. Airspace consolidation is seen at the lef t lung base. Foci of parenchymal scarring are seen throughout both lungs. Asymmetric interlobar septa l thickening is seen throughout the left lung and there is asymmetric volume loss in the left lung as compared to the right. Trace pleural fluid is seen on the right. A 6 mm right lower lobe pulmonary n odule on image #138 is unchanged. There is diffuse peribronchial thickening. These flexion/debris is noted in the left lower lobe airways. Mediastinum: There is no mediastinal lymphadenopathy. Marisela: Not well assessed without IV contrast. Axillae: There is no axillary lymphadenopathy. Upper abdomen: Partially visualized upper abdominal viscera is within normal limits. Skeletal structures: The skeletal structures are osteopenic. Degenerative change is noted in the shou lders and thoracic spine. No lytic or blastic bony lesions are seen. IMPRESSION: 1. Cardiomegaly and advanced emphysema. 2. There is a small to moderate loculated left pleural effusion as detailed above. The volume of flui d has modestly decreased from 08/27/2024. The sterility of the pleural fluid cannot be assessed on yvette ging, and an empyema would be impossible to exclude. 3. Trace pleural fluid is seen on the right. This has also decreased from previous. 4. There is dense consolidation at the left lung base, with diffuse peribronchial thickening and flui d/debris in the left lower lobe airways. Correlate clinically for evidence of pneumonia/aspiration pn eumonitis. A 3 month follow-up chest CT is recommended for reassessment. 5. There is asymmetric volume loss in the left lung as well as asymmetric intralobular septal thicken ing. This may be on an infectious/inflammatory basis and should also be reassessed at follow-up. 6. A 6 mm right lower lobe pulmonary nodule is unchanged. This should also be reassessed at follow-up . 7. No mediastinal lymphadenopathy is seen. 8. Additional findings as above. ACT 112: Negative or not required by law. Electronically signed by: Salbador Wilkerson M.D. 11/13/2024 1:47 PM
[2024-11-13] MEDS: AZITHROMYCIN 500 MG/255 ML BAG IV SCH (14:44)
--- NOTE | 2024-11-13 23:00 | Hospitalist Progress Note ---
Date of Service November 13, 2024 Assessment & Plan (1) Multifocal pneumonia: (2) Lung transplant recipient: Plan 69 year old female with lung transplant presents to the ER due to SOB. #Acute Shortness of breath with possible left lower lobe pneumonia Patient will now be transferred to [facility]. Consulted pulmonary. Placed on supplemental oxygen. Placed on IV antibiotics ceftriaxone and azithromycin. Added bacrtim though patient did have renal issues in the past from this. Transplant team recommends transfer to [facility], paperwork completed but no beds available. #Chronic Kidney Disease Stage 3B Creatinine appears to be at baseline, much improved from last admission where patient had her renal function last admission #Lung transplant will continue tymlos, acyclovir, prednisone, atovaquone will hold azathioprine, tacrolimus Tacrolimus has been on hold since 10/24/24 VTE Prophylaxis - encourage ambulation, SCDs Disposition - admit to med/tele Admission and Anticipated Discharge Date Admission Date: November 12, 2024 Subjective Patient reports no new symptoms. Physical Exam Constitutional: WD/WN, vitals as above Eyes: PERRL, conjunctivae normal, anicteric sclerae ENMT: external ear and nose normal, oropharynx normal Neck: trachea midline, no thyromegaly Respiratory: normal respiratory effort, lungs clear to auscultation Cardiovascular: RRR, no murmur, no edema Gastrointestinal (Abdomen): normal bowel sounds, soft, nontender, no hepatosplenomegaly Musculoskeletal: no cyanosis or clubbing, extremities motor strength 5/5 Skin: no rashes, warm and dry Neurologic: PERRL, EOMI, accommodation nl, no face palsy, no dysarthria Psychiatric: A+Ox3, euthymic affect Lymphatic: no cervical or axillary lymphadenopathy Results & Data Results & Data Vital Signs (Past 12 Hours) Vital Signs Temp Pulse Resp BP Pulse Ox O2 Del Method O2 Flow Rate 11/13/24 20:10 Nasal Cannula 2 11/13/24 19:49 36.7 C 64 16 127/68 93 Nasal Cannula 2 11/13/24 15:44 37 C 70 18 129/71 95 Nasal Cannula 2 PG Care Time/CCT Total # of Minutes Spent Total Time Spent with Patient: Total time spent is greater than 50% in coordination of care (as documented) at patient's floor/unit and/or counseling patient: Coding Level of Care Code 68792 SUB INP/OBS CARE 3/50MIN Diagnoses Multifocal pneumonia J18.9 Lung transplant recipient Z94.2
--- NOTE | 2024-11-14 10:34 | Discharge Summary ---
Discharge Summary Date of Service November 14, 2024 Principal Dx & Hospital Course #1 = Principal Diagnosis (1) Multifocal pneumonia: (2) Lung transplant recipient: Plan 69 year old female with lung transplant presents to the ER due to SOB. #Acute Shortness of breath with possible left lower lobe pneumonia Patient will now be transferred to [facility]. Consulted pulmonary. Placed on supplemental oxygen. Placed on IV antibiotics ceftriaxone and azithromycin. Added bacrtim though patient did have renal issues in the past from this. Transplant team recommends transfer to [facility], paperwork completed but no beds available. #Chronic Kidney Disease Stage 3B Creatinine appears to be at baseline, much improved from last admission where patient had her renal function last admission #Lung transplant will continue tymlos, acyclovir, prednisone, atovaquone will hold azathioprine, tacrolimus Tacrolimus has been on hold since 10/24/24 VTE Prophylaxis - encourage ambulation, SCDs Disposition - admit to med/tele Admission HPI Per Admitting Provider This is a 69 year old female present for shortness of breath. Patient reports having a productive cough with SOB at rest and exertion for 2-3 days. Patient denies any sick contacts. Patient denies any fever, chills, nausea, vomiting. Noted to be hypoxic in the ED. CHest x ray findings showed a consolidation. Discharge Exam GENERAL APPEARANCE NAD, activity normal for age, well developed/ well nourished, no cyanosis, pallor, or diaphoresis. EYES lids/conjunctiva normal. EARS/NOSE/THROAT Mucous membranes moist, nares normal, lips/teeth normal uvula midline without oral pharyngeal erythema, exudate or swelling TMs normal bilaterally. No lymphangitis/lymphedema. HEAD/NECK normocephalic atraumatic, no facial trauma, neck is supple. RESPIRATORY respiratory effort normal, speaks in full sentences, no tripod position, no accessory muscle use. Lungs clear to auscultation without rhonchi, wheezes, rales CARDIAC Regular rate and rhythm, no edema. ABDOMINAL Soft, ND/NT. No evidence of fluid wave. No pulsatile masses on exam, rebound tenderness, Young sign or pain over Mcburney's point. MUSCLES/EXTREMITIES No abnormal range of motion, no swelling. SKIN Warm, pink and dry. No rashes, dermatoses, petechiae or lesions. NEUROLOGICAL Speech is clear and appropriate. Normal level of consciousness. Gait and coordination are normal. 5/5 strength in all extremities. PSYCH Normal mood and affect. Judgement/competence is appropriate Discharge Plan Discharge Items Patient Disposition: Transfer Acute Care Hospital Reason For Visit: PNEUMONIA Discharge Diagnosis: pneumonia Condition on Discharge: Fair Activity: Per Instructions section Non-emergency contact: Primary Care Provider Call non-emergency contact if: you have any medication questions Follow-up/Referrals: Maya Weller, OTR [Primary Care Provider] - Diet: Carb Consistent or DM2 Addtl Attending Provider Instructions: Transferred to [facility] Pending Studies at Discharge: No Stand-Alone Forms: [facility] Skilled Items Patient informed of condition?: Yes DNR: No Discharge Level of Care: Skilled Communicable Disease: No Discharge Prognosis: Stable Lines: None Urinary Catheter: No Medications and DC Order Prescriptions: Continued (DME) Portable Oxygen Misc See Rx Instructions .Route Qty: 1 0RF Rx Instructions: portable oxygen concentrator- 3LPM on exertion via n/c. SILVIA:99 Trelegy Ellipta 100-62.5-25 mcg blister with device 1 inh inhalation DAILY Qty: 28 7RF albuterol sulfate 90 mcg/actuation HFA aerosol inhaler 2 puff inhalation Q4H PRN (Reason: shortness of breath or wheezing) Qty: 8.5 3RF Rx Instructions: Generic for ProAir- Patient can not use Ventolin escitalopram oxalate [Lexapro] 10 mg tablet 15 mg PO QAM pantoprazole [Protonix] 40 mg tablet,delayed release (DR/EC) 40 mg PO QAM Qty: 30 2RF bisacodyl [Dulcolax (bisacodyl)] 5 mg Tablet,Delayed Release (Dr/Ec) 5 mg PO DAILY PRN (Reason: Constipation) amlodipine 5 mg tablet 5 mg PO QAM atovaquone [Mepron] 750 mg/5 mL Suspension 750 mg PO BID 30 Days Qty: 300 0RF Rx Instructions: 11/12/24 THIS MED NOT STARTED YET. prednisone 5 mg tablet 5 mg PO QAM aspirin 81 mg Tablet,Delayed Release (Dr/Ec) 81 mg PO QAM calcium carbonate 600 mg calcium (1,500 mg) Tablet 600 mg PO BID gabapentin 100 mg Capsule 100 mg PO HS insulin lispro 100 unit/mL insulin pen 1 sliding scale dose SUBCUT DIRECTED Rx Instructions: NEEDED PER GLUCOMETER READING rosuvastatin 5 mg tablet 5 mg PO HS magnesium chloride 64 mg Tablet,Delayed Release (Dr/Ec) 64 mg PO QAM Prevymis 480 mg tablet 480 mg PO QAM tacrolimus 0.5 mg Capsule 0 mg PO BID Patient Comments: Per caregiver, medication was placed on hold on the evening of 10/24/24, no restart date as of 10/25/24 Rx Instructions: TOTAL DOSE 1.5 MG--TAKES WITH 1 MG CAP. acyclovir 200 mg capsule 400 mg PO AMPM carvedilol 12.5 mg tablet 12.5 mg PO AMPM cholecalciferol (vitamin D3) [Vitamin D3] 25 mcg (1,000 unit) Tablet 25 mcg PO QAM Tymlos 80 mcg (3,120 mcg/1.56 mL) pen injector 80 mcg SUBCUT DAILY azathioprine 50 mg tablet 50 mg PO QAM Discharge Orders: Discharge Order (Routine); Ordered 11/14/24 Ordered By: Vipul Camp Admission Data Admit Date/Time: 11/12/24 13:11 Attending Provider: Roddy Carvajal Admit Provider: Vipul Camp Primary Care Provider: Maya Weller Other Providers: Vipul Camp; Leno De Leon; Hernandez Corea; Kitty Ortega; Lilian Estvees; Kahlil Anguiano; Lindsey Stein Hospital Stay Data Consultations 11/12/24 12:50 ED Decision to Admit Stat 11/13/24 08:15 Consult Pulmonology Routine 11/13/24 16:01 Burn CD for patient Routine Diagnostic Imagining Performed 11/13/24 12:02 CT chest diagnostic wo con Urgent Pending Results Patient Have Any Pending Studies at Discharge: No Discharge Instructions Given to Patient (Per Discharging Provider) Transferred to [facility] Total Time Total Time Spent Total Time Spent (In Minutes): 50 Coding Level of Care Code 15184 INP/OBS DISCH >30 MIN Diagnoses Multifocal pneumonia J18.9 Lung transplant recipient Z94.2
--- NOTE | 2024-11-14 16:29 | Pulmonology Progress Note ---
Date of Service November 14, 2024 Assessment & Plan (1) COPD (chronic obstructive pulmonary disease): COPD type: unspecified COPD Qualified Code(s): J44.9 - Chronic obstructive pulmonary disease, unspecified (2) Lung transplant recipient: (3) Hypoxia: (4) Dyspnea: (5) Multifocal pneumonia: Plan Masha Mcneil is a 69-year-old female with past medical history of B12 deficiency, anemia, CKD stage IV, paroxysmal atrial tachycardia, GERD, COPD, Lung transplant at [place] a year ago on immunosuppression, anxiety, depression, and sacroiliitis; who presented to [facility] on 11/12/2024 with complaints of shortness of breath. Chest x-ray showed left lower lobe infiltrate with small effusion. Patient admitted for concern of pneumonia. Lung transplant on chronic immunosuppression -Transplant performed at [place] approximately 1 year ago. -Cont prednisone. Tacrolimus had been placed on hold 10/24/2024 with no restart date. Would temporarily hold Imuran in setting of pneumonia. -Plan to transfer to [facility] when bed becomes available to be evaluated by her lung transplant team. Hypoxic respiratory failure likely related to LLL pneumonia; COPD -CT chest 11/13/2024 shows dense left lower lobe consolidation with small possible loculated effusion. -Procalcitonin 0.05. Afebrile. -Not bronchospastic. Does not appear to be in COPD exacerbation. -Broaden antibiotics to bactrim, cefepime, flagyl, and azithromycin. -Fungitell, and LDH pending to assess for PJP. Patient was on PJP prophylaxis. -Continue acyclovir prophylaxis. Dyspnea; Hypoxemia -Maintain SpO2 > 92%. Currently on 2L NC. Thank you for allowing us to participate in this patient's care. Please reach out with any question or concerns. Admission and Anticipated Discharge Date Admission Date: November 14, 2024 Subjective "I feel ready to go home." "I still get short of breath with walking." Patient subjectively states that her breathing feels better. She still remains short of breath with ambulation. SpO2 92% on 2L NC. Plan to transfer to [facility] for eval by lung transplant team when bed becomes available. Review of Systems 2 Review of Systems: All systems reviewed & are unremarkable except as noted in HPI & below Physical Exam 2 Physical Exam: VITALS: Reviewed. WEIGHT/BMI reviewed. GEN: State age appearing, well-developed, NAD. PSYCH: Good Judgment. AOx3. Normal memory, mood, and affect. HEENT -Head: NC/AT; -Eyes: PERRL, EOMI. No discharge or redn ess; -Ears: External ears are normal. -Nose: Normal nares. NECK: Supple, with no masses. CV: RRR, no m/r/g. LUNGS: Clear in right upper and lower lobe, Clear left upper lobe with crackles heard over left lower lobe. Chest rise symmetrical, Breathing nonlabored. ABD: Soft, NT/ND, NBS, no masses or organomegaly. : N/A SKIN: Warm, well perfused. No skin rashes or abnormal lesions. MSK: No deformities, Normal gait. EXT: No clubbing, cyanosis, or edema. NEURO: Normal muscle strength and tone. No focal deficits. Results & Data Results & Data Vital Signs (Past 12 Hours) Vital Signs Temp Pulse Resp BP Pulse Ox O2 Del Method O2 Flow Rate 11/14/24 11:30 36.8 C 60 15 113/68 89 L Nasal Cannula 2 11/14/24 08:05 Nasal Cannula 2 11/14/24 07:20 36.5 C 66 15 124/69 91 Nasal Cannula 2 Laboratory Results 11/13/24 06:28 11/13/24 06:28 Abnormal Lab Results 11/13/24 11/14/24 11/14/24 20:52 07:18 11:28 POC Glucose 120 H 96 88 11/14/24 16:12 POC Glucose 123 H Diagnostic Findings No recent imaging. PG Care Time/CCT Total # of Minutes Spent Total Time Spent with Patient: Total time spent is greater than 50% in coordination of care (as documented) at patient's floor/unit and/or counseling patient: Coding Level of Care Code 14846 SUB INP/OBS CARE 2/35MIN Diagnoses COPD (chronic obstructive pulmonary disease) J44.9 COPD type: unspecified COPD Lung transplant recipient Z94.2 Hypoxia R09.02 Dyspnea R06.00 Multifocal pneumonia J18.9
[2024-11-14 17:22] VITALS: TEMP 98.1; O2SAT 93
[2024-11-14 19:35] VITALS: BP 130/63; PULSE 67; RESP 18
== END 2024-11-15 | disposition short-term general hospital (02) | DRG 193 ==
LOC: ED 09:46 → EDINP 09:46 → SUATTDRO 13:11 → 3E 21:16

== ENCOUNTER 2025-01-10 17:28 | Observation (INO) ==
[2025-01-10 18:23] LABS: Base Excess VBG 2.8 mEq/L; HCO3 VBG 29 mmol/L; Oxygen Saturation VBG 79.1 %; PCO2 VBG 47 mmHg (38-50); PO2 VBG 46 mmHg; pH VBG 7.39 (7.36-7.41)
[2025-01-10 18:27] LABS: Hematocrit (blood only) 32.4 % (37.0-47.0); Hemoglobin 10.4 g/dl (12.0-16.0); Immature Granulocytes # (auto) 0.02 K/uL (0.01-0.20); Immature Granulocytes % (auto) 0.3 %; Mean Corpuscular Hemoglobin 32.5 pg (25.0-34.0); Mean Corpuscular Volume 101.3 fL (80.0-100.0); Platelet Count 267 K/uL (130-400); RDW Standard Deviation 50.8 fL (36.4-46.3); Red Blood Count 3.20 M/uL (4.20-5.40); White Blood Count 6.65 K/ul (4.8-10.8)
[2025-01-10 18:52] LABS: INR 0.9 (0.9-1.1); Prothrombin Time 10.0 Seconds (9.0-12.0)
--- NOTE | 2025-01-10 18:55 | Emergency Department Note ---
Impression & Plan Dyspnea on exertion, Chest pain ED Provider Note ED Provider Note NAME: AVIVA MIMS AGE:69 SEX: Female : 1955 ARRIVES VIA: private vehicle INFORMANT: Patient ED PROVIDER(s): Apple Handy DO CHIEF COMPLAINT: dypsnea on exertion, chest pressure HPI: This is a 69 yo female who presents to the ER with concern for dyspnea on exertion and chest pressure with exertion that started last night. She states discomfort is worse with exertion but doesn't completely go away at rest. She states she has had an increased cough recently and was also concerned because she visited with her sister recently and then her sister was diagnosed with COVID. Patient states she does not follow with Dr. Shannon orellana of pulmonology due to a prior history of a lung transplant. Patient is a former smoker. Patient denies any history of heart problems. PAST MEDICAL HISTORY:See Below PAST SURGICAL HISTORY:See Below FAMILY HISTORY:See Below SOCIAL HISTORY:See Below HOME MEDICATIONS:See Below ALLERGIES:See Below VITALS:See Below PHYSICAL EXAMINATION: GENERAL: alert, well appearing, well nourished, no distress, non-toxic EYE EXAM: normal conjunctiva, PERRL and EOM's grossly intact OROPHARYNX: no exudate, no erythema, lips, buccal mucosa, and tongue normal and mucous membranes are moist NECK: supple, no nuchal rigidity, no adenopathy, non-tender LUNGS: Clear to auscultation. Normal chest wall mechanics, no w/r/r HEART: no murmurs, S1 normal and S2 normal, no reproducible pain with palpation ABDOMEN: abdomen soft, non-tender, normo-active bowel sounds, no masses, no rebound or guarding. BACK: Back is symmetrical on inspection and there is no deformity, no midline tenderness, no CVA tenderness. SKIN: no rashes, petechiae, orbruising UPPER EXTREMITIES: upper extremities are grossly normal. FROM, nml pulses b/l. LOWER EXTREMITIES: No pitting edema. FROM, nml pulses b/l. NEURO EXAM: Normal sensorium, cranial nerves II-XII grossly intact, normal speech, no facial droop,nogross weakness of arms, no gross weakness of legs. Gross sensation intact. No ataxia. Vital Signs: reviewed and remarkable Differential Diagnosis: pneumonia, bronchitis, COPD/Asthma exacerbation, pneumothorax, pulmonary embolism, congestive heart failure, acute coronary syndrome, as well as others were considered MEDICAL DECISION MAKING: This is a 69-year-old female who presents to the Emergency Department due to concern for increased shortness of breath and chest pain with exertion. Patient denies any prior cardiac history but does have extensive pulmonary history including prior lung transplant. Labs drawn and sent, IV established, EKG and CXR performed and interpreted at bedside, and patient placed on telemetry. Nasal swab obtained and sent for viral panel as patient did have a recent known sick contact additionally. Patient's labs and imaging reassuring with the exception of D-dimer which was elevated. Patient sent for CT angiography of the chest. CT reassuring also. No ectopy or dysrhythmia noted on telemetry. Patient did have recurrent symptoms with ambulation to the bathroom and back to bed here. In consideration for the differential diagnosis, we discussed further inpatient evaluation especially in light of her elevated risk as a transplant patient. She was in agreement. Case discussed with the hospitalist team for further evaluation and management. Consultation(s): 2345: Discussed with Dr. Smith, [place] hospitalist team, for further evaluation and mgmt. ER Treatment Provided: See below Diagnostics Interpreted By Me: -ECG: Normal sinus at 76, normal axis, normal intervals, no acute ST/T wave changes -Cardiac Monitoring: An order was placed for continuous cardiac monitoring. The monitor shows a rate of 70 with normal sinus rhythm. -Laboratory studies: As stated above and show below. -Imaging studies: X-ray Chest: A single view study of the chest was reviewed and was negative for cardiomegaly, focal infiltrate, effusion, pulmonary edema, or wide mediastinum. Triage Nursing Note Reviewed Prior/Outside Records Reviewed Past Med/Surg History Problem List (Updated 01/11/25 @ 00:21 by Apple Handy DO) Chest pain (Acute) Pericardial effusion Chest pressure Dyspnea on exertion (Acute) Pneumonia (Acute) B12 deficiency anemia Medication side effect (Acute) DUNG (acute kidney injury) (Acute) Acute hyperkalemia (Acute) Chronic kidney disease, stage 4 (severe) Hypocalcemia (Acute) Hypomagnesemia Anemia Multifocal pneumonia Hypoxia (Acute) Lung transplant recipient (Acute) Prediabetes Lower back pain Paroxysmal atrial tachycardia Acid reflux Ex-smoker COPD (chronic obstructive pulmonary disease) (Acute) Dyspnea Cough Acute on chronic respiratory failure with hypoxia (Acute) Dysfunction of both eustachian tubes Acute respiratory failure with hypoxia Paroxysmal atrial tachycardia Acute dyspnea (Acute) Lung transplant candidate Sacroiliitis Multiple pulmonary nodules no biopsies, monitored Anxiety with depression Medical History History of tobacco use Sleep apnea, obstructive CPAP History of peptic ulcer disease Family history of paroxysmal atrial tachycardia History of COVID-19 (~2021) x3 sob, cough, fatigue; resolved History of recent pneumonia (~09/2022) Surgical History History of lung transplant Hx of cardiac catheterization (~2022) Had in [place] as part of work up for [place] to get on Lung Transplant list, no stents Hx of colonoscopy with polypectomy Hx of bilateral cataract extraction History of partial hysterectomy History of carpal tunnel surgery of right wrist History of broken collarbone sx to repair History of tooth extraction all teeth H/O partial thyroidectomy (~1989) d/t hemorrhaging?--unknown cause, no meds Family History Mother , from ovarian cancer Cancer Ovarian Sister Cancer Ovarian Father COPD (chronic obstructive pulmonary disease) Other No family history of adverse response to anesthesia Social History Smoking Status: Former smoker Tobacco Type: Cigarettes Age Started Using Tobacco: 17; Age Quit Using Tobacco: 64; packs per day: 1; Cigarettes Per Day: Less than a packet; Second Hand Exposure: Yes; Do You Dip or Chew Tobacco: No; Hx Alcohol Use: No Hx Substance Use: No Preferred Language: Syriac 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 Ability: Effective Log Skidder 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 Beliefs That Will Affect Care: L[employer] Day marital status: Current Living Situation: Family Current Living Situation Comment: lives with sister Feels Safe at Home: Yes Assistive Devices: Oxygen - Continuous and Walker Allergies Allergies Allergy/AdvReac Type Severity Reaction Status Date / Time aspirin AdvReac Intermediate GI SYMPTOMS Verified 11/12/24 16:19 Home Meds Home Medications Medication Instructions Recorded Confirmed escitalopram oxalate 10 mg tablet 15 mg PO QAM 08/05/22 01/10/25 (Lexapro) aspirin 81 mg tablet,delayed 81 mg PO QAM 04/06/24 01/10/25 release calcium carbonate 600 mg PO BID 04/06/24 01/10/25 gabapentin 100 mg capsule 100 mg PO HS 04/06/24 01/10/25 insulin lispro 100 unit/mL 1 sliding scale dose subcut 04/06/24 01/10/25 subcutaneous pen DIRECTED letermovir 480 mg tablet (Prevymis) 480 mg PO QAM 04/06/24 01/10/25 magnesium chloride 64 mg 64 mg PO QAM 04/06/24 01/10/25 (magnesium chloride) tablet,delayed release prednisone 5 mg tablet 10 mg PO QAM 04/06/24 01/10/25 rosuvastatin 5 mg tablet 5 mg PO HS 04/06/24 01/10/25 acyclovir 200 mg capsule 400 mg PO AMPM 08/08/24 01/10/25 carvedilol 12.5 mg tablet 12.5 mg PO AMPM 08/08/24 01/10/25 cholecalciferol (vitamin D3) 25 25 mcg PO QAM 08/08/24 01/10/25 mcg (1,000 unit) tablet (Vitamin D3) tacrolimus 0.5 mg capsule, 0 mg PO BID 08/08/24 01/10/25 immediate-release abaloparatide (Tymlos) 80 mcg subcut DAILY 10/12/24 01/10/25 azathioprine 50 mg tablet 50 mg PO QAM 10/12/24 01/10/25 amlodipine 5 mg tablet 5 mg PO QAM 10/25/24 01/10/25 bisacodyl 5 mg tablet,delayed 5 mg PO DAILY PRN Constipation 10/25/24 01/10/25 release (Dulcolax (bisacodyl)) sulfamethoxazole 800 0.5 tab PO BID 01/10/25 01/10/25 mg-trimethoprim 160 mg tablet Previous Rx's Medication Instructions Recorded Portable Oxygen #1 ea 09/15/22 pantoprazole 40 mg tablet,delayed 40 mg PO QAM #30 tabs 11/06/23 release (Protonix) albuterol sulfate 90 mcg/actuation 2 puff inhalation Q4H PRN 02/16/24 aerosol inhaler shortness of breath or wheezing #8.5 grams fluticasone fur. 100 mcg-umeclid 1 inh inhalation DAILY #28 ea 02/16/24 62.5 mcg-vilant 25 mcg inhalat.powder (Trelegy Ellipta) Results & Data (ED) Vital Signs Vital Signs - 24 hr 01/10/25 17:35 01/10/25 17:59 01/10/25 18:23 Temperature 36.6 C Temperature Source Temporal Artery Scan Pulse Rate 91 H 81 Pulse Rate [Finger] 77 Respiratory Rate 18 20 Respiratory Effort / Characteristics Non-Labored Spontaneous Respiratory Depth Normal Respiratory Pattern Regular Blood Pressure 134/87 Blood Pressure [Right Arm] 168/110 H Blood Pressure Mean 102 Blood Pressure Mean [Right Arm] 129 Pulse Oximetry 95 95 Oxygen Delivery Method Room Air Room Air Oxygen Flow Rate Sepsis Recent Fever Within 48 Hours No Sepsis New/Unexplained Change in Mental Status N/A Sepsis Action Taken by Nursing No Action Required 01/10/25 18:25 01/10/25 18:42 01/10/25 19:11 Temperature Temperature Source Pulse Rate Pulse Rate [Finger] 74 76 Respiratory Rate 20 20 Respiratory Effort / Characteristics Respiratory Depth Respiratory Pattern Blood Pressure Blood Pressure [Right Arm] 172/87 H 157/96 H Blood Pressure Mean Blood Pressure Mean [Right Arm] 115 116 Pulse Oximetry 93 93 93 Oxygen Delivery Method Room Air Room Air Room Air Oxygen Flow Rate 0 Sepsis Recent Fever Within 48 Hours Sepsis New/Unexplained Change in Mental Status Sepsis Action Taken by Nursing 01/10/25 19:23 01/10/25 19:57 01/10/25 20:12 Temperature Temperature Source Pulse Rate Pulse Rate [Finger] 75 72 73 Respiratory Rate 20 20 20 Respiratory Effort / Characteristics Respiratory Depth Respiratory Pattern Blood Pressure Blood Pressure [Right Arm] 157/96 H 155/82 H 180/85 H Blood Pressure Mean Blood Pressure Mean [Right Arm] 116 106 116 Pulse Oximetry 93 94 93 Oxygen Delivery Method Room Air Room Air Nasal Cannula Oxygen Flow Rate Sepsis Recent Fever Within 48 Hours Sepsis New/Unexplained Change in Mental Status Sepsis Action Taken by Nursing 01/10/25 20:15 01/10/25 22:16 01/10/25 23:28 Temperature Temperature Source Pulse Rate 63 Pulse Rate [Finger] 71 73 Respiratory Rate 20 20 Respiratory Effort / Characteristics Respiratory Depth Respiratory Pattern Blood Pressure Blood Pressure [Right Arm] 180/85 H 187/97 H Blood Pressure Mean Blood Pressure Mean [Right Arm] 116 127 Pulse Oximetry 92 91 Oxygen Delivery Method Room Air Room Air Oxygen Flow Rate Sepsis Recent Fever Within 48 Hours Sepsis New/Unexplained Change in Mental Status Sepsis Action Taken by Nursing Laboratory Data 01/10/25 18:09 01/10/25 18:09 Lab Results 01/10/25 01/10/25 01/10/25 Range/Units 17:59 18:09 18:37 WBC 6.65 (4.8-10.8) K/ul RBC 3.20 L (4.20-5.40) M/uL Hgb 10.4 L (12.0-16.0) g/dl Hct 32.4 L (37.0-47.0) % MCV 101.3 H (80.0-100.0) fL MCH 32.5 (25.0-34.0) pg MCHC 32.1 (32.0-36.0) g/dL RDW Std Deviation 50.8 H (36.4-46.3) fL RDW Coeff of Audrey 13.7 (11.5-14.5) % Plt Count 267 (130-400) K/uL MPV 9.9 (9.4-12.4) fL Immature Gran % (Auto) 0.3 % Neut % (Auto) 70.8 % Lymph % (Auto) 12.5 % [place] % (Auto) 7.7 % Eos % (Auto) 7.5 % Baso % (Auto) 1.2 % Neut # (Auto) 4.71 (1.40-6.50) K/uL Lymph # (Auto) 0.83 L (1.20-3.40) K/uL [place] # (Auto) 0.51 (0.11-0.59) K/uL Eos # (Auto) 0.50 (0.00-0.50) K/uL Baso # (Auto) 0.08 (0.00-0.20) K/uL Immature Gran # (Auto) 0.02 (0.01-0.20) K/uL PT 10.0 (9.0-12.0) Seconds INR 0.9 (0.9-1.1) D-Dimer 1250 H* (0-500) ug/L FEU VBG pH 7.39 (7.36-7.41) VBG pCO2 47 (38-50) mmHg VBG pO2 46 mmHg VBG HCO3 29 mmol/L VBG O2 Saturation 79.1 % VBG Base Excess 2.8 mEq/L Sodium 142 (136-145) mmol/L Potassium 3.9 (3.5-5.1) mmol/L Chloride 110 H (98-107) mmol/L Carbon Dioxide 27 (21-32) mmol/L Anion Gap 5 (3-11) BUN 17 (6-23) mg/dl Creatinine 1.23 H (0.6-1.2) mg/dl Est Cr Clr Drug Dosing 38.1 ml/min eGFR 47.27 BUN/Creatinine Ratio 13.8 (10-20) Glucose 106 H (70-99(Fasting)) mg/dl Lactate 0.7 (0.4-2.0) mmol/L Calcium 8.3 L (8.6-10.3) mg/dl Magnesium 2.0 (1.7-2.4) mg/dl Total Bilirubin 0.4 (0.2-1.0) mg/dl Direct Bilirubin 0.0 (0-0.2) mg/dl AST 18 (13-39) U/L ALT 9 (7-52) U/L Alkaline Phosphatase 54 (34-104) U/L Troponin I High Sens 5.2 (0-14) pg/ml Total Protein 5.8 L (6.0-8.3) gm/dl Albumin 3.3 L (3.4-5.0) gm/dl Procalcitonin 0.06 (0-0.5) ng/ml Adenovirus (PCR) Not Detected (NotDetected) B. pertussis DNA (PCR) Not Detected (NotDetected) B.parapertussis DNA PCR Not Detected (NotDetected) C. pneumoniae DNA (PCR) Not Detected (NotDetected) Coronavirus OC43 (PCR) Not Detected (NotDetected) Coronavirus HKU1 (PCR) Not Detected (NotDetected) Coronavirus 229E (PCR) Not Detected (NotDetected) SARS-CoV-2 (PCR) Not Detected (NotDetected) Coronavirus NL63 (PCR) Not Detected (NotDetected) Human Metapneumovir PCR Not Detected (NotDetected) Influenza Type A (PCR) Not Detected (NotDetected) Influenza Type B (PCR) Not Detected (NotDetected) M. pneumoniae (PCR) Not Detected (NotDetected) Parainfluenza 1 (PCR) Not Detected (NotDetected) Parainfluenza 2 (PCR) Not Detected (NotDetected) Parainfluenza 3 (PCR) Not Detected (NotDetected) Parainfluenza 4 (PCR) Not Detected (NotDetected) RSV (PCR) Not Detected (NotDetected) Entero/Rhino (PCR) Not Detected (NotDetected) Administered Medications Sodium Chloride (Nss) 1,000 mls @ 125 mls/hr IV .Q8H QIAN Stop: 01/11/25 05:14 Last Admin: 01/10/25 22:09 Dose: 125 mls/hr Documented By: ADRIANO Discontinued Medications Pantoprazole Sodium (Protonix) 40 mg in 10 mls @ 5 mls/min IV NOW ONE Stop: 01/10/25 19:44 Last Admin: 01/10/25 20:07 Dose: 5 mls/min Documented By: NATASHA Acetaminophen (Ofirmev) 1,000 mg in 100 mls @ 400 mls/hr IV NOW STA Stop: 01/10/25 20:17 Last Infusion: 01/10/25 20:38 Dose: Infused Documented By: Admin: 01/10/25 20:10 Dose: 400 mls/hr Documented By: NATASHA Ioversol (Optiray 320 125ml) 115 ml IV ONCE ONE Stop: 01/10/25 21:57 Last Admin: 01/10/25 21:57 Dose: 115 ml Documented By: JIGNESH Nitroglycerin (Nitroglycerin 2% Ointment 30gm Tube) 1 inch EXT NOW STA Stop: 01/10/25 20:04 Last Admin: 01/10/25 20:10 Dose: 1 inch Documented By: NATASHA Imaging Data Radiologist's Impression: Chest X-Ray 01/10/25 17:53 EXAM: X-ray chest one-view portable CLINICAL HISTORY: Chest pain PRIORS: 11/13/2024 TECHNIQUE: Frontal view chest FINDINGS: The chest is hyperexpanded with moderate to advanced pulmonary emphysema noted. No airspace consolidation, effusion or congestive changes. Heart size is normal. No pneumothorax. Trachea is patent. Osseous structures demonstrate no acute abnormality. No radiopaque foreign body. IMPRESSION: No plain film evidence of an acute cardiopulmonary process. Electronically signed by Reina Renee 01-10-2025 7:10 PM Chest CTA 01/10/25 21:04 Exam(s): CTA CHEST IV Amt: 115 ml optiray 320 EXAM: CT Angiography Chest With Intravenous Contrast CLINICAL HISTORY: Reason for exam: PE. TECHNIQUE: Axial computed tomographic angiography images of the chest with intravenous contrast. CTDI is 14.25 mGy and DLP is 327.86 mGy-cm. Automated exposure control was utilized for the study. A dose lowering technique was utilized adhering to the principles of ALARA. MIP reconstructed images were created and reviewed. COMPARISON: No relevant prior studies available. FINDINGS: Pulmonary arteries: No pulmonary embolism is seen.. Aorta: No thoracic aortic aneurysm. Lungs: There are emphysematous changes noted in the right lung. There is some scarring or atelectasis in the left lung.. Pleural space: There is a trace left pleural effusion.. No pneumothorax. Heart: The heart contains coronary artery calcifications. There is a small pericardial effusion.. Bones/joints: There are degenerative changes in the spine.. Soft tissues: The left lobe of the thyroid gland is inhomogeneous containing nodules.. Lymph nodes: There are small mediastinal lymph nodes.. IMPRESSION: No pulmonary embolism is seen.. There are emphysematous changes noted in the right lung. There is some scarring or atelectasis in the left lung. There is a trace left pleural effusion. The left lobe of the thyroid gland is inhomogeneous containing nodules. This should be further evaluated with use of a nonemergent thyroid ultrasound Electronically signed by: Omar Sanders MD 01/10/25 23:10 PM Discharge Plan Visit Data Chief Complaint: Shortness of Breath/Dyspnea Stated Complaint: TROUBLE BREATHING PAST 1 WEEK ED Provider: Apple Handy Discharge Problem: Dyspnea on exertion, Chest pain Patient Disposition: Being Evaluated by Hospitalist Condition: Fair Forms Stand Alone Forms: My [employer] Prescriptions Prescriptions: No Action (DME) Portable Oxygen Misc See Rx Instructions .Route Qty: 1 0RF Rx Instructions: portable oxygen concentrator- 3LPM on exertion via n/c. SILVIA:99 Trelegy Ellipta 100-62.5-25 mcg blister with device 1 inh inhalation DAILY Qty: 28 7RF albuterol sulfate 90 mcg/actuation HFA aerosol inhaler 2 puff inhalation Q4H PRN (Reason: shortness of breath or wheezing) Qty: 8.5 3RF Rx Instructions: Generic for ProAir- Patient can not use Ventolin escitalopram oxalate [Lexapro] 10 mg tablet 15 mg PO QAM pantoprazole [Protonix] 40 mg tablet,delayed release (DR/EC) 40 mg PO QAM Qty: 30 2RF bisacodyl [Dulcolax (bisacodyl)] 5 mg Tablet,Delayed Release (Dr/Ec) 5 mg PO DAILY PRN (Reason: Constipation) amlodipine 5 mg tablet 5 mg PO QAM sulfamethoxazole-trimethoprim 800-160 mg tablet 0.5 tab PO BID prednisone 5 mg tablet 10 mg PO QAM aspirin 81 mg Tablet,Delayed Release (Dr/Ec) 81 mg PO QAM Patient Comments: PT HAS ASPIRIN LISTED ALLERGY, BUT STATES IT ONLY MAKES HER STOMACH UPSET AND SHE STILL TAKES 81MG ASPIRIN calcium carbonate 600 mg calcium (1,500 mg) Tablet 600 mg PO BID gabapentin 100 mg Capsule 100 mg PO HS insulin lispro 100 unit/mL insulin pen 1 sliding scale dose SUBCUT DIRECTED Rx Instructions: NEEDED PER GLUCOMETER READING rosuvastatin 5 mg tablet 5 mg PO HS magnesium chloride 64 mg Tablet,Delayed Release (Dr/Ec) 64 mg PO QAM Prevymis 480 mg tablet 480 mg PO QAM tacrolimus 0.5 mg Capsule 0 mg PO BID Rx Instructions: TOTAL DOSE 1.5 MG--TAKES WITH 1 MG CAP. acyclovir 200 mg capsule 400 mg PO AMPM carvedilol 12.5 mg tablet 12.5 mg PO AMPM cholecalciferol (vitamin D3) [Vitamin D3] 25 mcg (1,000 unit) Tablet 25 mcg PO QAM Tymlos 80 mcg (3,120 mcg/1.56 mL) pen injector 80 mcg SUBCUT DAILY azathioprine 50 mg tablet 50 mg PO QAM Referrals Referrals: Maya Weller, OTR [Primary Care Provider] -
[2025-01-10 18:56] LABS: Alanine Aminotransferase 9.0 U/L (7-52); Albumin Level 3.3 gm/dl (3.4-5.0); Alkaline Phosphatase 54.0 U/L (34-104); Anion Gap 5.0 (3-11); Bilirubin,Total 0.4 mg/dl (0.2-1.0); Blood Urea Nitrogen 17.0 mg/dl (6-23); Calcium 8.3 mg/dl (8.6-10.3); Carbon Dioxide 27.0 mmol/L (21-32); Chloride 110.0 mmol/L (98-107); Creatinine Clr Calc Pharmacy 38.1 ml/min; Glucose 106.0 mg/dl (70-99(Fasting)); Magnesium 2.0 mg/dl (1.7-2.4); Potassium 3.9 mmol/L (3.5-5.1); Sodium 142.0 mmol/L (136-145); Total Protein 5.8 gm/dl (6.0-8.3)
--- NOTE | 2025-01-10 19:10 | XRay Report ---
EXAM: X-ray chest one-view portable CLINICAL HISTORY: Chest pain PRIORS: 11/13/2024 TECHNIQUE: Frontal view chest FINDINGS: The chest is hyperexpanded with moderate to advanced pulmonary emphysema noted. No airspace consolidation, effusion or congestive changes. Heart size is normal. No pneumothorax. Trachea is patent. Osseous structures demonstrate no acute abnormality. No radiopaque foreign body. IMPRESSION: No plain film evidence of an acute cardiopulmonary process. Electronically signed by Reina Renee 01-10-2025 7:10 PM
[2025-01-10 19:29] LABS: Chlamydia pneumoniae PCR Not Detected (NotDetected); Coronavirus 229E PCR Not Detected (NotDetected); Coronavirus CoV-2 (COVID19)PCR Not Detected (NotDetected); Coronavirus HKU1 PCR Not Detected (NotDetected); Coronavirus NL63 PCR Not Detected (NotDetected); Coronavirus OC43PCR Not Detected (NotDetected); Human Metapneumovirus PCR Not Detected (NotDetected); Parainfluenza Virus 1 PCR Not Detected (NotDetected); Parainfluenza Virus 2 PCR Not Detected (NotDetected); Parainfluenza Virus 3 PCR Not Detected (NotDetected); Parainfluenza Virus 4 PCR Not Detected (NotDetected); Respiratory Syncytial VirusPCR Not Detected (NotDetected); Rhinovirus/Enterovirus PCR Not Detected (NotDetected)
[2025-01-10] MEDS: PANTOprazole 40 MG/10 ML SYR IV ONE (20:07)
[2025-01-10] MEDS: ACETAMINOPHEN 1,000 MG/100 ML VIAL IV STA (20:10)
[2025-01-10] MEDS: NITROGLYCERIN 2% OINTMENT 30GM TUBE EXT STA (20:10)
[2025-01-10] MEDS: OPTIRAY 320 125ml IV ONE (21:57)
[2025-01-10] MEDS: SODIUM CHLORIDE 0.9% 1,000 ML IV SCH (22:09)
--- NOTE | 2025-01-10 23:11 | CT Scan Report ---
Exam(s): CTA CHEST IV Amt: 115 ml optiray 320 EXAM: CT Angiography Chest With Intravenous Contrast CLINICAL HISTORY: Reason for exam: PE. TECHNIQUE: Axial computed tomographic angiography images of the chest with intravenous contrast. CTDI is 14.25 mGy and DLP is 327.86 mGy-cm. Automated exposure control was utilized for the study. A dose lowering technique was utilized adhering to the principles of ALARA. MIP reconstructed images were created and reviewed. COMPARISON: No relevant prior studies available. FINDINGS: Pulmonary arteries: No pulmonary embolism is seen.. Aorta: No thoracic aortic aneurysm. Lungs: There are emphysematous changes noted in the right lung. There is some scarring or atelectasis in the left lung.. Pleural space: There is a trace left pleural effusion.. No pneumothorax. Heart: The heart contains coronary artery calcifications. There is a small pericardial effusion.. Bones/joints: There are degenerative changes in the spine.. Soft tissues: The left lobe of the thyroid gland is inhomogeneous containing nodules.. Lymph nodes: There are small mediastinal lymph nodes.. IMPRESSION: No pulmonary embolism is seen.. There are emphysematous changes noted in the right lung. There is some scarring or atelectasis in the left lung. There is a trace left pleural effusion. The left lobe of the thyroid gland is inhomogeneous containing nodules. This should be further evaluated with use of a nonemergent thyroid ultrasound Electronically signed by: Omar Sanders MD 01/10/25 23:10 PM
--- NOTE | 2025-01-10 23:55 | History & Physical Report ---
Date of Service January 10, 2025 Assessment & Plan (1) Dyspnea on exertion: (2) Chest pressure: (3) Pericardial effusion: Plan Patient is a 69-year-old female with a past medical history of recent lung transplant about 1 year ago due to end stage COPD, stage IV CKD, type II DM. P atient presented due to dyspnea at rest and on exertion, rhinorrhea, cough, and a burning chest pressure for several days. She is being admitted for further cardiac workup including echocardiogram. #dyspnea on exertion/burning chest pressureCXR negative for acute changes, CTA revealed trace left pleural effusion as well as small pericardial effusion (noted on echocardiogram in 2022). BioFire negative, troponin 5.2, procalcitonin negative, nonhypoxic. EKG showed NSR. Mag 2.0, K+ 3.9 Chest pressure relieved with Protonix 40 mg IV and Nitropaste in the ED Echocardiogram ordered Incentive spirometry DuoNeb x 1 given history of cough and reported wheezing (breath sounds clear at time of admission); ordered as needed thereafter Oxygen as needed for O2 less than 92% - tick panel ordered #Stage IV CKDcreatinine improved from patient's baseline. Appears euvolemic at time of admission. Ordered 1L NSS at 125 mL/hour in ED Avoid nephrotoxic agents #Lung transplant11/2023 at [facility]. Continue home acyclovir, azathioprine, prednisone, tacrolimus, Bactrim, prevymis, tymlos #Thyroid nodulesnoted on CTA Follow-up with PCP in outpatient setting #HTNBP elevated at time of admission however missed home medications Continue amlodipine and carvedilol; ordered on admission #Mental healthcontinue Lexapro #Type II DMpatient reports has not needed sliding scale insulin in several months, will defer ordering at this time VTE ppx: SCDs - low risk, able to ambulate Dispo: med/telemetry, obs - possible DC 01/11 after echocardiogram Admission and Anticipated Discharge Date Admission Date: 01/11/25 History of Present Illness Chief Complaint: dyspnea Primary Care Provider: JAXON Valles Patient is a 69-year-old female with a past medical history of recent lung transplant about 1 year ago, stage IV CKD, type II DM, COPD. Patient presented due to dyspnea at rest and on exertion, rhinorrhea, cough, and a burning chest pressure for several days. She is being admitted for further cardiac workup including echocardiogram. Patient seen at bedside. She stated she has had dyspnea on exertion and at rest for several days, she also endorses orthopnea. She typically does not have any dyspnea and does not require oxygen at baseline after her lung transplant. Currently nonhypoxic on room air. She also endorses rhinorrhea, cough with clear sputum production (occasionally yellow), and some wheezing on exertion. She is currently not wheezing at time of exam. She was around her sister recently who had COVID however bio fire is negative. Patient also stated for the past 2 days she has had a constant burning chest pressure that she feels is like heartburn. This was relieved after Nitropaste and Protonix in the ED. She denies any dizziness/lightheadedness. She was a former smoker, denies any current use. She did not take any of her home medications today, ordered on admission. She stated she has not used insulin in several months for her diabetes. She wishes to be full code however would not want on machines in the long-term setting. Allergies Allergy/AdvReac Type Severity Reaction Status Date / Time aspirin AdvReac Intermediate GI SYMPTOMS Verified 11/12/24 16:19 Home Medications Medication Instructions Recorded Confirmed Type escitalopram oxalate 10 mg tablet 15 mg PO QAM 08/05/22 01/10/25 History (Lexapro) Portable Oxygen #1 ea 09/15/22 08/08/24 Rx pantoprazole 40 mg tablet,delayed 40 mg PO QAM #30 tabs 11/06/23 01/10/25 Rx release (Protonix) albuterol sulfate 90 mcg/actuation 2 puff inhalation Q4H PRN 02/16/24 01/10/25 Rx aerosol inhaler shortness of breath or wheezing #8.5 grams fluticasone fur. 100 mcg-umeclid 1 inh inhalation DAILY #28 ea 02/16/24 01/10/25 Rx 62.5 mcg-vilant 25 mcg inhalat.powder (Trelegy Ellipta) aspirin 81 mg tablet,delayed 81 mg PO QAM 04/06/24 01/10/25 History release calcium carbonate 600 mg PO BID 04/06/24 01/10/25 History gabapentin 100 mg capsule 100 mg PO HS 04/06/24 01/10/25 History insulin lispro 100 unit/mL 1 sliding scale dose subcut 04/06/24 01/10/25 History subcutaneous pen DIRECTED letermovir 480 mg tablet (Prevymis) 480 mg PO QAM 04/06/24 01/10/25 History magnesium chloride 64 mg 64 mg PO QAM 04/06/24 01/10/25 History (magnesium chloride) tablet,delayed release prednisone 5 mg tablet 10 mg PO QAM 04/06/24 01/10/25 History rosuvastatin 5 mg tablet 5 mg PO HS 04/06/24 01/10/25 History acyclovir 200 mg capsule 400 mg PO AMPM 08/08/24 01/10/25 History carvedilol 12.5 mg tablet 12.5 mg PO AMPM 08/08/24 01/10/25 History cholecalciferol (vitamin D3) 25 25 mcg PO QAM 08/08/24 01/10/25 History mcg (1,000 unit) tablet (Vitamin D3) tacrolimus 0.5 mg capsule, 0 mg PO BID 08/08/24 01/10/25 History immediate-release abaloparatide (Tymlos) 80 mcg subcut DAILY 10/12/24 01/10/25 History azathioprine 50 mg tablet 50 mg PO QAM 10/12/24 01/10/25 History amlodipine 5 mg tablet 5 mg PO QAM 10/25/24 01/10/25 History bisacodyl 5 mg tablet,delayed 5 mg PO DAILY PRN Constipation 10/25/24 01/10/25 History release (Dulcolax (bisacodyl)) sulfamethoxazole 800 0.5 tab PO BID 01/10/25 01/10/25 History mg-trimethoprim 160 mg tablet Past Med/Surg History Problem List (Updated 01/11/25 @ 00:21 by Apple Handy, DO) Chest pain (Acute) Pericardial effusion Chest pressure Dyspnea on exertion (Acute) Pneumonia (Acute) B12 deficiency anemia Medication side effect (Acute) DUNG (acute kidney injury) (Acute) Acute hyperkalemia (Acute) Chronic kidney disease, stage 4 (severe) Hypocalcemia (Acute) Hypomagnesemia Anemia Multifocal pneumonia Hypoxia (Acute) Lung transplant recipient (Acute) Prediabetes Lower back pain Paroxysmal atrial tachycardia Acid reflux Ex-smoker COPD (chronic obstructive pulmonary disease) (Acute) Dyspnea Cough Acute on chronic respiratory failure with hypoxia (Acute) Dysfunction of both eustachian tubes Acute respiratory failure with hypoxia Paroxysmal atrial tachycardia Acute dyspnea (Acute) Lung transplant candidate Sacroiliitis Multiple pulmonary nodules no biopsies, monitored Anxiety with depression Medical History History of tobacco use Sleep apnea, obstructive CPAP History of peptic ulcer disease Family history of paroxysmal atrial tachycardia History of COVID-19 (~2021) x3 sob, cough, fatigue; resolved History of recent pneumonia (~09/2022) Surgical History History of lung transplant Hx of cardiac catheterization (~2022) Had in [place] as part of work up for [facility] to get on Lung Transplant list, no stents Hx of colonoscopy with polypectomy Hx of bilateral cataract extraction History of partial hysterectomy History of carpal tunnel surgery of right wrist History of broken collarbone sx to repair History of tooth extraction all teeth H/O partial thyroidectomy (~1989) d/t hemorrhaging?--unknown cause, no meds Family History Mother , from ovarian cancer Cancer Ovarian Sister Cancer Ovarian Father COPD (chronic obstructive pulmonary disease) Other No family history of adverse response to anesthesia Social History Smoking Status: Never smoker Tobacco Type: Cigarettes Age Started Using Tobacco: 17; Age Quit Using Tobacco: 64; packs per day: 1; Cigarettes Per Day: Less than a packet; Second Hand Exposure: Yes; Do You Dip or Chew Tobacco: No; Hx Alcohol Use: No Hx Substance Use: No Preferred Language: Uzbek 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 Ability: Effective Gas Meter Reader 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 Beliefs That Will Affect Care: None marital status: Current Living Situation: Family Current Living Situation Comment: in one story home with daughter Virgen Feels Safe at Home: Yes Safety Concerns: Feels Safe At This Time Assistive Devices: Oxygen - Continuous and Walker Review of Systems Review of Systems: see HPI Physical Exam Physical Exam: The patient is awake, alert and oriented 3, well developed and well nourished, normocephalic and atraumatic, in no acute distress. Non-toxic appearing. HEENT- EOMI, mucous membranes moist. Hearing grossly intact. Heart-normal S1 and S2. No murmurs, rubs or gallops. Lungs-clear bilaterally, no respiratory distress, no accessory muscle use. Abdomen-normal bowel sounds and soft. No ascites noted. Non-tender. Extremities- no clubbing, cyanosis, or edema. Rheumatologic-normal range of motion. Psychiatric-normal affect. Results & Data Results & Data Vital Signs (Past 12 Hours) Vital Signs Temp Pulse Pulse Resp BP BP Pulse Ox 01/10/25 23:28 63 01/10/25 22:16 73 20 187/97 H 91 01/10/25 20:15 71 20 180/85 H 92 01/10/25 20:12 73 20 180/85 H 93 01/10/25 19:57 72 20 155/82 H 94 01/10/25 19:23 75 20 157/96 H 93 01/10/25 19:11 76 20 157/96 H 93 01/10/25 18:42 74 20 172/87 H 93 01/10/25 18:25 93 01/10/25 18:23 77 20 168/110 H 95 01/10/25 17:59 81 01/10/25 17:35 36.6 C 91 H 18 134/87 95 O2 Del Method O2 Flow Rate 01/10/25 23:28 01/10/25 22:16 Room Air 01/10/25 20:15 Room Air 01/10/25 20:12 Nasal Cannula 01/10/25 19:57 Room Air 01/10/25 19:23 Room Air 01/10/25 19:11 Room Air 01/10/25 18:42 Room Air 01/10/25 18:25 Room Air 0 01/10/25 18:23 Room Air 01/10/25 17:59 01/10/25 17:35 Room Air Laboratory Results Abnormal lab results 01/10/25 01/10/25 Range/Units 18:09 18:37 RBC 3.20 L (4.20-5.40) M/uL Hgb 10.4 L (12.0-16.0) g/dl Hct 32.4 L (37.0-47.0) % MCV 101.3 H (80.0-100.0) fL RDW Std Deviation 50.8 H (36.4-46.3) fL Lymph # (Auto) 0.83 L (1.20-3.40) K/uL D-Dimer 1250 H* (0-500) ug/L FEU Chloride 110 H (98-107) mmol/L Creatinine 1.23 H (0.6-1.2) mg/dl Glucose 106 H (70-99(Fasting)) mg/dl Calcium 8.3 L (8.6-10.3) mg/dl Total Protein 5.8 L (6.0-8.3) gm/dl Albumin 3.3 L (3.4-5.0) gm/dl Diagnostic Findings Reviewed CTA and CXR Medications Administered CT1L NSS at 125 mL/hour, Protonix 40 Mg IV, acetaminophen 1G IV, Nitropaste 1 inch AdmissionDuoNeb x 1, all home medications ECG Additional Comments: NSR Rate 76 QTc 468 Code Status & VTE Plan Code Status full code VTE Prophylaxis Plan VTE Prophylaxis will be ordered: Yes Supervising Physician Co-Signing Physician Notes Attending addendum: I have physically seen this patient, have supervised the PUSHPA's activities, and agree with the H&P unless as otherwise noted. Assessment and Plan: The patient is a 69-year-old female with past medical history including recent lung transplant about 1 year ago due to end-stage COPD, stage IV CKD, and diabetes mellitus type 2. She presented to the emergency department due to shortness of breath, with dyspnea on exertion, rhinorrhea, and cough. She also reported burning chest pressure for the past several days. She was referred to the [facility]ist service for further evaluation and treatment. Dyspnea on exertion/burning chest pressure- Chest x-ray negative CTA chest was negative for PE, but did show a small pericardial effusion which had been noted on echocardiogram in 10/25/2022. The patient will be admitted to telemetry for serial cardiac enzymes, serial EKG's, cardiac rhythm monitoring and a 2-D echocardiogram with Dopplers. BioFire test negative DuoNeb x 1 in the ED Order tick panel Pantoprazole 40 mg IV daily, Tylenol 1 g IV every 8 hours as needed Stage IV CKD- Creatinine 1.25, with base 1.37 Placed on NSS at 25 mL/h x 1 L Follow laboratory serially Lung transplant- On 12[facility]09 at [facility] Continue acyclovir, azathioprine, prednisone, tacrolimus, Bactrim, Prevymis and Tymlos Hypertension- Patient missed her home medications, which was likely causing elevated blood pressure at admission Continue amlodipine and carvedilol with hold parameters Pericardial effusion- Initially seen on echocardiogram 10/25/2022. Seen on CT angiography during workup in the ED Order echocardiogram as noted Remaining orders and notations as noted PG Care Time/CCT Total # of Minutes Spent Total Time Spent with Patient: Total time spent is greater than 50% in coordination of care (as documented) at patient's floor/unit and/or counseling patient: Coding Level of Care Code 04195 INT INP/OBS CARE 3/75MIN Diagnoses Dyspnea on exertion R06.09 Chest pressure R07.89 Pericardial effusion I31.39
[2025-01-11 00:20] VITALS: TEMP 97.8
[2025-01-11] MEDS ORDERED: ALBUTEROL HFA 8 GM INHALER INH PRN (00:38)
[2025-01-11] MEDS ORDERED: MELATONIN 3 MG TAB PO PRN (00:38)
[2025-01-11] MEDS ORDERED: ACETAMINOPHEN 325 MG TAB PO PRN (00:38)
[2025-01-11] MEDS ORDERED: ALBUT/IPRATROP 3MG/0.5MG NEB 3 ML VIAL NEB PRN (00:38)
[2025-01-11] MEDS ORDERED: ONDANSETRON INJ 2 MG/ML 2 ML VIAL IV PRN (00:38)
[2025-01-11] MEDS: ALBUT/IPRATROP 3MG/0.5MG NEB 3 ML VIAL NEB STA (00:57)
[2025-01-11] MEDS: ACYCLOVIR 400 MG TAB PO ONE (00:57)
[2025-01-11] MEDS: GABAPENTIN 100 MG CAP PO STA (00:58)
[2025-01-11] MEDS: SULFAMETHOXAZOLE/TRIMETHOPRIM DS 800/160MG TAB PO ONE (00:58)
[2025-01-11] MEDS: TACROLIMUS 0.5 MG CAP PO STA (00:59)
[2025-01-11 04:05] LABS: Hematocrit (blood only) 31.1 % (37.0-47.0); Hemoglobin 9.9 g/dl (12.0-16.0); Immature Granulocytes # (auto) 0.02 K/uL (0.01-0.20); Immature Granulocytes % (auto) 0.3 %; Mean Corpuscular Hemoglobin 32.1 pg (25.0-34.0); Mean Corpuscular Volume 101.0 fL (80.0-100.0); Platelet Count 234 K/uL (130-400); RDW Standard Deviation 50.4 fL (36.4-46.3); Red Blood Count 3.08 M/uL (4.20-5.40); White Blood Count 6.87 K/ul (4.8-10.8)
[2025-01-11 04:20] LABS: Alanine Aminotransferase 6.0 U/L (7-52); Albumin Globulin Ratio 1.6 (0.9-2); Albumin Level 3.1 gm/dl (3.4-5.0); Alkaline Phosphatase 51.0 U/L (34-104); Anion Gap 4.0 (3-11); Bilirubin,Total 0.3 mg/dl (0.2-1.0); Blood Urea Nitrogen 16.0 mg/dl (6-23); Calcium 7.9 mg/dl (8.6-10.3); Carbon Dioxide 25.0 mmol/L (21-32); Chloride 109.0 mmol/L (98-107); Creatinine Clr Calc Pharmacy 40.1 ml/min; Globulin 1.9 gm/dl (2.5-4.0); Glucose 135.0 mg/dl (70-99(Fasting)); Magnesium 1.9 mg/dl (1.7-2.4); Potassium 4.2 mmol/L (3.5-5.1); Sodium 138.0 mmol/L (136-145); Total Protein 5.0 gm/dl (6.0-8.3)
[2025-01-11 08:03] VITALS: RESP 16
--- NOTE | 2025-01-11 08:03 | Hospitalist Progress Note ---
Date of Service January 11, 2025 Assessment & Plan Admission and Anticipated Discharge Date Admission Date: January 11, 2025 Results & Data Results & Data Vital Signs (Past 12 Hours) Vital Signs Temp Pulse Pulse Resp BP Pulse Ox O2 Del Method 01/11/25 00:13 36.6 C 72 17 121/85 94 Room Air 01/10/25 23:28 63 01/10/25 22:16 73 20 187/97 H 91 Room Air 01/10/25 20:15 71 20 180/85 H 92 Room Air 01/10/25 20:12 73 20 180/85 H 93 Nasal Cannula PG Care Time/CCT Total # of Minutes Spent Total Time Spent with Patient: Total time spent is greater than 50% in coordination of care (as documented) at patient's floor/unit and/or counseling patient: Coding
[2025-01-11] MEDS: ACYCLOVIR 200 MG CAP PO SCH (08:04)
[2025-01-11] MEDS: MAGNESIUM CHLORIDE W/CALCIUM 64MG DELAYED REL TAB PO SCH (08:04)
[2025-01-11] MEDS: ASPIRIN 81 MG ECTAB PO SCH (08:04)
[2025-01-11] MEDS: ESCITALOPRAM OXALATE 10 MG TAB PO SCH (08:05)
[2025-01-11] MEDS: SULFAMETHOXAZOLE/TRIMETHOPRIM DS 800/160MG TAB PO SCH (08:05)
[2025-01-11] MEDS: UMECLIDINIUM/VILANTEROL 62.5/25MCG 7 PUFFS/INHALER INH SCH (08:06)
[2025-01-11] MEDS: TACROLIMUS 0.5 MG CAP PO SCH (08:06)
[2025-01-11] MEDS: FLUTICASONE FUROATE 100MCG 14 PUFFS/INHALER INH SCH (08:07)
[2025-01-11] MEDS ORDERED: NON-FORMULARY MEDICATION (Fluticasone-Umeclidin-Vilanter [Trelegy Ellipta] 100-62.5-25 mcg INH SCH (09:00)
[2025-01-11 09:14] VITALS: O2SAT 93
--- NOTE | 2025-01-11 09:50 | XCELERA ---
[id number]
[2025-01-11 12:52] VITALS: BP 152/81; PULSE 72
[2025-01-11] MEDS ORDERED: GABAPENTIN 100 MG CAP PO SCH (21:00)
[2025-01-11] MEDS ORDERED: ROSUVASTATIN CALCIUM 5 MG TAB PO SCH (21:00)
--- NOTE | 2025-01-12 08:40 | Electrocardiogram Report ---
Test Reason : Blood Pressure : */* mmHG Vent. Rate : 76 BPM Atrial Rate : 76 BPM P-R Int : 130 ms QRS Dur : 82 ms QT Int : 416 ms P-R-T Axes : 50 60 88 degrees QTcB Int : 468 ms Normal sinus rhythm Premature atrial complexes When compared with ECG of 12-Nov-2024 10:22, QT has lengthened Confirmed by Marcello Rodríguez ([id number]) on 01/12/2025 8:39:57 AM Referred By: REFERRED SELF Confirmed By: Marcello Rodríguez
--- NOTE | 2025-01-12 14:54 | Discharge Summary ---
Discharge Summary Date of Service January 11, 2025 Principal Dx & Hospital Course #1 = Principal Diagnosis (1) Chest pain: (2) Dyspnea on exertion: Plan In summary this is a 69-year-old female who presented to the [facility] due to subacute progression of shortness of breath with substernal "burning" chest discomfort. She was admitted for further evaluation of possible ACS. Patient is EKG was without any ischemic changes, troponin trend was unremarkable; patient's TTE was reviewed and discussed with the transport technician who indicated there is no significant change from the previous assessment. The patient feels much improved on the morning of evaluation; through shared decision making the patient elected for outpatient cardiac stress testing which has been ordered at the time of discharge. Admission HPI Per Admitting Provider Patient is a 69-year-old female with a past medical history of recent lung transplant about 1 year ago, stage IV CKD, type II DM, COPD. Patient presented due to dyspnea at rest and on exertion, rhinorrhea, cough, and a burning chest pressure for several days. She is being admitted for further cardiac workup including echocardiogram. Patient seen at bedside. She stated she has had dyspnea on exertion and at rest for several days, she also endorses orthopnea. She typically does not have any dyspnea and does not require oxygen at baseline after her lung transplant. Currently nonhypoxic on room air. She also endorses rhinorrhea, cough with clear sputum production (occasionally yellow), and some wheezing on exertion. She is currently not wheezing at time of exam. She was around her sister recently who had COVID however bio fire is negative. Patient also stated for the past 2 days she has had a constant burning chest pressure that she feels is like heartburn. This was relieved after Nitropaste and Protonix in the ED. She denies any dizziness/lightheadedness. She was a former smoker, denies any current use. She did not take any of her home medications today, ordered on admission. She stated she has not used insulin in several months for her diabetes. She wishes to be full code however would not want on machines in the long-term setting. Discharge Exam General: Adult female in no acute distress Vital Signs: Reviewed HEENT: Moist mucous membranes Neck: No notable hepatojugular reflux Pulmonary: Clear to auscultation bilaterally with symmetric chest wall rise Cardiovascular: Regular rate and rhythm without murmurs, rubs, or gallops; S1 and S2 normal; right radial pulse 2+ with brisk capillary refill; no notable lower extremity edema Discharge Plan Discharge Items Patient Disposition: Home - Self-Care Reason For Visit: DYSPNEA ON EXERTION Discharge Diagnosis: Viral bronchitis Condition on Discharge: Fair Activity: Per Instructions section Non-emergency contact: Primary Care Provider and Patent Law Specialist Call non-emergency contact if: you have any medication questions Follow-up/Referrals: Maya Weller, OTR [Primary Care Provider] - Diet: Regular Fluids: 1800ml (7 cups) Ambulatory Orders: NM cheli perf spect lexiscan (Routine) Timeframe: 2 Weeks Location: Determined by Patient Ordered By: Darrell Gabriel Attending Provider Instructions: You were admitted to [facility] for dyspnea on exertion with intermittent substernal chest "burning" with walking short distances. With regard to your shortness of breath, imaging, laboratory assessment, and physical exam does not reveal any acute pulmonary process nor infectious cause. Based on your recent symptomatology of a runny nose, slightly productive cough and congestion, suspect this is likely a viral syndrome that is not otherwise diagnosed on our viral testing at this time. 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 There was also concern with regard to your substernal burning discomfort that this may be related to a cardiac pathology; a TTE obtained on 01/11 did not reveal any significant change from your previous testing. Initial troponin measure was 20, though this decreased without any direct intervention and your EKG was reassuring without any additional ischemic changes. Given the presence of your symptoms with exertion, it is recommended that you follow-up with a outpatient pharmacologic stress test which has been ordered with your discharge. Please follow through with this diagnostic testing and discuss it with your primary care physician. Thank you for choosing [facility] as your healthcare provider. Pending Studies at Discharge: Yes Studies:: Tick borne disease testing Stand-Alone Forms: My [facility] Medications and DC Order Prescriptions: Continued (DME) Portable Oxygen Misc See Rx Instructions .Route Qty: 1 0RF Rx Instructions: portable oxygen concentrator- 3LPM on exertion via n/c. SILVIA:99 Trelegy Ellipta 100-62.5-25 mcg blister with device 1 inh inhalation DAILY Qty: 28 7RF albuterol sulfate 90 mcg/actuation HFA aerosol inhaler 2 puff inhalation Q4H PRN (Reason: shortness of breath or wheezing) Qty: 8.5 3RF Rx Instructions: Generic for ProAir- Patient can not use Ventolin escitalopram oxalate [Lexapro] 10 mg tablet 15 mg PO QAM pantoprazole [Protonix] 40 mg tablet,delayed release (DR/EC) 40 mg PO QAM Qty: 30 2RF bisacodyl [Dulcolax (bisacodyl)] 5 mg Tablet,Delayed Release (Dr/Ec) 5 mg PO DAILY PRN (Reason: Constipation) amlodipine 5 mg tablet 5 mg PO QAM sulfamethoxazole-trimethoprim 800-160 mg tablet 0.5 tab PO BID prednisone 5 mg tablet 10 mg PO QAM aspirin 81 mg Tablet,Delayed Release (Dr/Ec) 81 mg PO QAM Patient Comments: PT HAS ASPIRIN LISTED ALLERGY, BUT STATES IT ONLY MAKES HER STOMACH UPSET AND SHE STILL TAKES 81MG ASPIRIN calcium carbonate 600 mg calcium (1,500 mg) Tablet 600 mg PO BID gabapentin 100 mg Capsule 100 mg PO HS insulin lispro 100 unit/mL insulin pen 1 sliding scale dose SUBCUT DIRECTED Rx Instructions: NEEDED PER GLUCOMETER READING rosuvastatin 5 mg tablet 5 mg PO HS magnesium chloride 64 mg Tablet,Delayed Release (Dr/Ec) 64 mg PO QAM Prevymis 480 mg tablet 480 mg PO QAM tacrolimus 0.5 mg Capsule 0 mg PO BID Rx Instructions: TOTAL DOSE 1.5 MG--TAKES WITH 1 MG CAP. acyclovir 200 mg capsule 400 mg PO AMPM carvedilol 12.5 mg tablet 12.5 mg PO AMPM cholecalciferol (vitamin D3) [Vitamin D3] 25 mcg (1,000 unit) Tablet 25 mcg PO QAM Tymlos 80 mcg (3,120 mcg/1.56 mL) pen injector 80 mcg SUBCUT DAILY azathioprine 50 mg tablet 50 mg PO QAM Discharge Orders: Discharge Order (Routine); Ordered 01/11/25 Ordered By: Darrell Prather Admission Data Admit Date/Time: 01/11/25 00:03 Attending Provider: Darrell Prather Admit Provider: Blaze Smith Primary Care Provider: Maya Weller Other Providers: Blaze Smith Other Interventions: Discharge Summary Assessment (RN) Last Done: 01/11/25 12:56 Hospital Stay Data Consultations 01/10/25 23:41 ED Decision to Admit Stat Diagnostic Imagining Performed 01/10/25 21:04 CT angio chest PE protocol Stat Pending Results Patient Have Any Pending Studies at Discharge: Yes Discharge Instructions Given to Patient (Per Discharging Provider) You were admitted to [facility] for dyspnea on exertion with intermittent substernal chest "burning" with walking short distances. With regard to your shortness of breath, imaging, laboratory assessment, and physical exam does not reveal any acute pulmonary process nor infectious cause. Based on your recent symptomatology of a runny nose, slightly productive cough and congestion, suspect this is likely a viral syndrome that is not otherwise diagnosed on our viral testing at this time. 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 There was also concern with regard to your substernal burning discomfort that this may be related to a cardiac pathology; a TTE obtained on 01/11 did not reveal any significant change from your previous testing. Initial troponin measure was 20, though this decreased without any direct intervention and your EKG was reassuring without any additional ischemic changes. Given the presence of your symptoms with exertion, it is recommended that you follow-up with a outpatient pharmacologic stress test which has been ordered with your discharge. Please follow through with this diagnostic testing and discuss it with your primary care physician. Thank you for choosing [facility] as your healthcare provider. Total Time Total Time Spent Total Time Spent (In Minutes): I personally spent 70 minutes in today's discharge including review of the patient's current medical record, personal review of imaging obtained, coordination with specialist consulted by the admitting team, discussion the patient's potential plans of care at bedside, physical exam, and execution of the patient's discharge Coding Level of Care Code 27417 INP/OBS DISCH >30 MIN Diagnoses Chest pain R07.9 Dyspnea on exertion R06.09
== END 2025-01-11 12:56 | disposition home or self-care (01) ==
LOC: ED 17:28 → EDINP 17:28 → SUATTDRO 01-11 00:03 → EDINP 01-11 00:39

== ENCOUNTER 2025-02-13 14:52 | Inpatient (IN) ==
[2025-02-13 15:20] LABS: Hematocrit (blood only) 35.4 % (37.0-47.0); Hemoglobin 11.5 g/dl (12.0-16.0); Immature Granulocytes # (auto) 0.03 K/uL (0.01-0.20); Immature Granulocytes % (auto) 0.4 %; Mean Corpuscular Hemoglobin 32.4 pg (25.0-34.0); Mean Corpuscular Volume 99.7 fL (80.0-100.0); Platelet Count 265 K/uL (130-400); RDW Standard Deviation 49.6 fL (36.4-46.3); Red Blood Count 3.55 M/uL (4.20-5.40); White Blood Count 7.90 K/ul (4.8-10.8)
--- NOTE | 2025-02-13 15:39 | XRay Report ---
XR chest 1V not portable CLINICAL HISTORY: Chest pain, nonspecific COMPARISON STUDY: 01/10/2025 FINDINGS: Heart size and pulmonary vasculature are normal. There is mild blunting of the left costoph renic angle. Otherwise the lungs remain aerated. No pneumothorax. IMPRESSION: Possible trace left pleural effusion. No other acute findings seen. ACT 112: Negative or not required by law. Electronically signed by: Tre Payne M.D. 02/13/2025 3:38 PM
[2025-02-13 15:42] LABS: Alanine Aminotransferase 6.0 U/L (7-52); Albumin Globulin Ratio 1.2 (0.9-2); Albumin Level 3.2 gm/dl (3.4-5.0); Alkaline Phosphatase 50.0 U/L (34-104); Anion Gap 8.0 (3-11); Bilirubin,Total 0.5 mg/dl (0.2-1.0); Blood Urea Nitrogen 28.0 mg/dl (6-23); Calcium 8.4 mg/dl (8.6-10.3); Carbon Dioxide 29.0 mmol/L (21-32); Chloride 105.0 mmol/L (98-107); Creatinine Clr Calc Pharmacy 30.5 ml/min; Globulin 2.7 gm/dl (2.5-4.0); Glucose 138.0 mg/dl (70-99(Fasting)); Potassium 4.2 mmol/L (3.5-5.1); Sodium 142.0 mmol/L (136-145); Total Protein 5.9 gm/dl (6.0-8.3)
[2025-02-13 15:54] LABS: INR 0.9 (0.9-1.1); Partial Thromboplastin Time 21 Seconds (21-31); Prothrombin Time 9.5 Seconds (9.0-12.0)
--- NOTE | 2025-02-13 16:20 | Emergency Department Note ---
History of Present Illness General Chief complaint: Chest Pain Stated complaint: CHEST PAIN Time Seen by Provider: 02/13/25 15:22 History of Present Illness Maximum Pain Intensity: 10 Patient is a 69-year-old female with past medical history significant for bilateral lung transplant on tacrolimus, chronic prednisone, chronic Bactrim and acyclovir, dyslipidemia, COPD, osteoporosis, diabetes, hypertension, anxiety and depression, history of tachycardia, among other chronic medical problems who presents to the emergency department for evaluation of chest pain x 5 days. She reports a pinpoint midsternal "burning" that started last Tuesday. It does not radiate. She notes palpitations/irregular heartbeat, and increased pain with exertion. She initially thought it was acid reflux and tried Tums and Maalox without relief. She has been sick with a stuffy, runny nose and a cough productive of yellowclear sputum. She has been checking her temperature and has not had a fever. She feels like her chest is tight and she is wheezing. She has been using albuterol nebulizers without relief. She has been checking her oxygen saturation at home, and got a reading of 71% today while she was walking. She states "I just do not feel good." She just saw her transplant team provider recently. She states that her tacrolimus level was undetectable, as she thought that she was told that she could stop it, so the transplant team restarted this. She was admitted about a month ago for chest pain and shortness of breath with exertion. A echocardiogram was apparently unremarkable and she was discharged to have a stress test as an outpatient. Home Medications Medication Instructions Recorded Confirmed Type escitalopram oxalate 10 mg tablet 15 mg PO QAM 08/05/22 02/13/25 History (Lexapro) Portable Oxygen #1 ea 09/15/22 08/08/24 Rx pantoprazole 40 mg tablet,delayed 40 mg PO QAM #30 tabs 11/06/23 02/13/25 Rx release (Protonix) albuterol sulfate 90 mcg/actuation 2 puff inhalation Q4H PRN 02/16/24 02/13/25 Rx aerosol inhaler shortness of breath or wheezing #8.5 grams fluticasone fur. 100 mcg-umeclid 1 inh inhalation DAILY #28 ea 02/16/24 02/13/25 Rx 62.5 mcg-vilant 25 mcg inhalat.powder (Trelegy Ellipta) aspirin 81 mg tablet,delayed 81 mg PO QAM 04/06/24 02/13/25 History release calcium carbonate 600 mg PO BID 04/06/24 02/13/25 History gabapentin 100 mg capsule 100 mg PO HS 04/06/24 02/13/25 History insulin lispro 100 unit/mL 1 sliding scale dose subcut 04/06/24 02/13/25 History subcutaneous pen DIRECTED letermovir 480 mg tablet (Prevymis) 480 mg PO QAM 04/06/24 02/13/25 History magnesium chloride 64 mg 64 mg PO QAM 04/06/24 02/13/25 History (magnesium chloride) tablet,delayed release prednisone 5 mg tablet 10 mg PO QAM 04/06/24 02/13/25 History rosuvastatin 5 mg tablet 5 mg PO HS 04/06/24 02/13/25 History acyclovir 200 mg capsule 400 mg PO AMPM 08/08/24 02/13/25 History carvedilol 12.5 mg tablet 12.5 mg PO AMPM 08/08/24 02/13/25 History cholecalciferol (vitamin D3) 25 25 mcg PO QAM 08/08/24 02/13/25 History mcg (1,000 unit) tablet (Vitamin D3) tacrolimus 0.5 mg capsule, 1.5 mg PO BID 08/08/24 02/13/25 History immediate-release azathioprine 50 mg tablet 50 mg PO QAM 10/12/24 02/13/25 History amlodipine 5 mg tablet 5 mg PO QAM 10/25/24 02/13/25 History bisacodyl 5 mg tablet,delayed 5 mg PO DAILY PRN Constipation 10/25/24 02/13/25 History release (Dulcolax (bisacodyl)) sulfamethoxazole 800 0.5 tab PO BID 01/10/25 02/13/25 History mg-trimethoprim 160 mg tablet Allergies Allergy/AdvReac Type Severity Reaction Status Date / Time aspirin AdvReac Intermediate GI SYMPTOMS Verified 02/13/25 20:26 Past Med/Surg History Problem List (Updated 02/13/25 @ 22:38 by Erwin Wagner) Lung transplant status, bilateral (Acute) Hypoxia (Acute) Acute exacerbation of chronic obstructive pulmonary disease (Acute) Heartburn Acute bronchitis with COPD Chest pain (Acute) Pericardial effusion Chest pressure Dyspnea on exertion (Acute) Pneumonia (Acute) B12 deficiency anemia Medication side effect (Acute) DUNG (acute kidney injury) (Acute) Acute hyperkalemia (Acute) Chronic kidney disease, stage 4 (severe) Hypocalcemia (Acute) Hypomagnesemia Anemia Multifocal pneumonia Hypoxia (Acute) Lung transplant recipient (Acute) Prediabetes Lower back pain Paroxysmal atrial tachycardia Acid reflux Ex-smoker COPD (chronic obstructive pulmonary disease) (Acute) Dyspnea Cough Acute on chronic respiratory failure with hypoxia (Acute) Dysfunction of both eustachian tubes Acute respiratory failure with hypoxia Paroxysmal atrial tachycardia Acute dyspnea (Acute) Lung transplant candidate Sacroiliitis Multiple pulmonary nodules no biopsies, monitored Anxiety with depression Medical History History of tobacco use Sleep apnea, obstructive CPAP History of peptic ulcer disease Family history of paroxysmal atrial tachycardia History of COVID-19 (~2021) x3 sob, cough, fatigue; resolved History of recent pneumonia (~09/2022) Surgical History History of lung transplant Hx of cardiac catheterization (~2022) Had in [place] as part of work up for [facility] to get on Lung Transplant list, no stents Hx of colonoscopy with polypectomy Hx of bilateral cataract extraction History of partial hysterectomy History of carpal tunnel surgery of right wrist History of broken collarbone sx to repair History of tooth extraction all teeth H/O partial thyroidectomy (~1989) d/t hemorrhaging?--unknown cause, no meds Family History Mother , from ovarian cancer Cancer Ovarian Sister Cancer Ovarian Father COPD (chronic obstructive pulmonary disease) Other No family history of adverse response to anesthesia Social History Smoking Status: Former smoker Tobacco Type: Cigarettes Age Started Using Tobacco: 17; Age Quit Using Tobacco: 64; packs per day: 1; Cigarettes Per Day: Less than a packet; Second Hand Exposure: Yes; Do You Dip or Chew Tobacco: No; Hx Alcohol Use: No Hx Substance Use: No Preferred Language: Romanian 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 Ability: Effective Magazine Hand 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 Beliefs That Will Affect Care: None marital status: Current Living Situation: Family Current Living Situation Comment: in one story home with daughter Virgen Feels Safe at Home: Yes Assistive Devices: Oxygen - at Night Review of Systems A total of 10 systems reviewed and were otherwise negative Physical Exam Vital Signs Vital Signs - 24 hr 02/13/25 18:00 Pulse Rate [Apical] 63 Pulse Rhythm [Apical] Regular Pulse Strength [Apical] Normal Respiratory Rate 31 H Respiratory Effort / Characteristics Non-Labored Spontaneous Respiratory Depth Normal Respiratory Pattern Regular Blood Pressure [Left Arm] 142/92 H Blood Pressure Mean [Left Arm] 108 Blood Pressure Position [Left Arm] Semi-fowlers Pulse Oximetry 94 Oxygen Delivery Method Room Air CONSTITUTIONAL: Nontoxic-appearing 69-year-old female who is awake and alert and in no acute distress. EYES: PERRL, EOMI, no discharge or injection. EARS: Tympanic membranes intact, not inflamed, have normal contour. External canals clear. NOSE: Nares patent, turbinates edematous and boggy with clear rhinorrhea. MOUTH: Mucous membranes moist, no lesions, tongue and gums appear normal. THROAT: No pharyngeal injection, exudates, or tonsillar hypertrophy. Airway is patent. NECK: Supple, nontender, no lymphadenopathy. HEART: Regular rate and rhythm without murmurs, ectopy, gallops, or rubs. LUNGS: Breath sounds mildly diminished throughout, with scattered expiratory wheezes. SKIN: Normal. NEUROLOGICAL: Sensory and motor functions grossly intact. Normal gait. Course Course The patient was seen and assessed as above. External medical records reviewed, including hospitalization from 1 month ago. She presents to the emergency department for evaluation of chest pain, shortness of breath and low oxygen saturation readings at home in the setting of an upper respiratory illness. Blood work, EKG, chest x-ray and chest CT were obtained Patient history, presentation and ED workup reviewed with attending physician who agrees with the plan. Diagnostics, as interpreted by me: Laboratory studies: No leukocytosis, H&H 11.5 and 35.4, normal platelet count. No coagulopathy. No significant electrolyte imbalance, renal functions mildly elevated, consistent with her CKD and chronic and stable appearing for the patient. No transaminitis. Troponin is negative x 1. Tacrolimus level is pending. Upper respiratory BioFire is negative. MRSA nasal swab pending. ECG: Normal sinus rhythm at 75 bpm, no acute ischemic changes, no change on review of prior EKGs. Cardiac monitoring: An order was placed for continuous cardiac monitoring. The monitor shows a NSR at a rate of 74 per my interpretation. Imaging studies: Chest x-ray: Trace left pleural effusion, no overt infiltrate. Chest CT no obvious sign for PE. Stable left pleural effusion, emphysematous changes. Stable chronic changes without acute infectious pathology. Given patient's immunocompromise state, and transplant status, empiric antibiotics, vancomycin and Zosyn were ordered, after review with Dr. Zelaya and ED Pharm.D. Nursing staff did document oxygen saturations 98% on room air when the patient was ambulatory in the exam room and to the bathroom. Given this, in addition to her other comorbidities it was felt that further inpatient care was indicated. 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 Chronic conditions affecting care: bilateral lung transplant on tacrolimus, chronic prednisone, chronic Bactrim and acyclovir, dyslipidemia, COPD, osteoporosis, diabetes, hypertension, anxiety and depression, history of tachycardi Differential diagnosis: ACS, AMI, pneumonia, pneumothorax, COPD, CHF, infection, cardiac ischemia, pulmonary embolism, musculoskeletal, as well as other pathologies. Administered Medications Acetaminophen (Acetaminophen 325 Mg Tab) 650 mg PO Q4H PRN PRN Reason: pain/fever Stop: 03/15/25 18:46 Last Admin: 02/13/25 23:03 Dose: 650 mg Documented By: shahnaz Acyclovir (Acyclovir 200 Mg Cap) 400 mg PO [facility] Stop: 03/15/25 22:14 Last Admin: 02/14/25 08:03 Dose: 400 mg Documented By: Admin: 02/13/25 22:59 Dose: 400 mg Documented By: shahnaz Amlodipine Besylate (Amlodipine Besylate 5 Mg Tab) [facility] Stop: 03/16/25 08:59 Last Admin: 02/14/25 08:04 Dose: 5 mg Documented By: AMINTA Aspirin (Aspirin 81 Mg Ectab) [facility] Stop: 03/16/25 08:59 Last Admin: 02/14/25 08:03 Dose: 81 mg Documented By: AMINTA Azathioprine (Azathioprine 50 Mg Tab) 50 mg PO [facility] Stop: 03/16/25 08:59 Last Admin: 02/14/25 08:03 Dose: 50 mg Documented By: AMINTA Carvedilol (Carvedilol 12.5 Mg Tab) 12.5 mg PO BID QIAN Stop: 03/15/25 21:32 Last Admin: 02/14/25 08:03 Dose: 12.5 mg Documented By: Admin: 02/13/25 22:24 Dose: 12.5 mg Documented By: shahnaz Escitalopram Oxalate (Escitalopram Oxalate 10 Mg Tab) 15 mg PO QAM QIAN Stop: 03/16/25 08:59 Last Admin: 02/14/25 08:04 Dose: 15 mg Documented By: AMINTA Fluticasone Furoate (Fluticasone Furoate 100mcg 14 Puffs/Inhaler) 1 puffs INH DAILY QIAN Stop: 03/16/25 08:59 Last Admin: 02/14/25 08:02 Dose: 1 puffs Documented By: AMINTA Gabapentin (Gabapentin 100 Mg Cap) 100 mg PO HS QIAN Stop: 03/15/25 21:32 Last Admin: 02/13/25 22:24 Dose: 100 mg Documented By: shahnaz Cefepime HCl (Maxipime 2000mg) 2,000 mg in 20 mls @ 5 mls/min IV Q12H QIAN; Protocol Stop: 02/19/25 06:59 Last Admin: 02/14/25 06:15 Dose: 5 mls/min Documented By: shahnaz Sodium Chloride (Nss) 1,000 mls @ 35 mls/hr IV .Q24H QIAN Stop: 02/14/25 22:48 Last Admin: 02/13/25 18:55 Dose: 35 mls/hr Documented By: BENJA Co-signed By: LYNN Pantoprazole Sodium (Protonix) 40 mg in 10 mls @ 5 mls/min IV BID QIAN Stop: 03/16/25 08:59 Last Admin: 02/14/25 08:04 Dose: 5 mls/min Documented By: AMINTA Vancomycin HCl 750 mg/ Sodium (Chloride) 265 mls @ 200 mls/hr IV Q24H QIAN Stop: 02/19/25 09:59 Last Infusion: 02/14/25 12:55 Dose: Infused Documented By: Admin: 02/14/25 11:17 Dose: 200 mls/hr Documented By: AMINTA Magnesium Chloride (Magnesium Chloride W/Calcium 64mg Delayed Rel Tab) 64 mg PO QAM QIAN Stop: 03/16/25 08:59 Last Admin: 02/14/25 08:03 Dose: 64 mg Documented By: AMINTA Miscellaneous (Prevymis--Order Awaiting Action) 1 each N/A QS [facility] Stop: 03/16/25 00:00 Last Admin: 02/14/25 13:55 Dose: Not Given Documented By: Admin: 02/14/25 07:59 Dose: Not Given Documented By: Admin: 02/14/25 00:38 Dose: Not Given Documented By: shahnaz Nystatin (Nystatin Powder 15gm Btl) 1 appln EXT BID PRN PRN Reason: skin folds Stop: 03/16/25 00:50 Last Admin: 02/14/25 07:59 Dose: 1 appln Documented By: AMINTA Prednisone (Prednisone 10 Mg Tablet) [facility] Stop: 03/16/25 08:59 Last Admin: 02/14/25 08:04 Dose: 10 mg Documented By: AMINTA Tacrolimus (Tacrolimus 0.5 Mg Cap) 1.5 mg PO BID [facility] Stop: 03/15/25 22:14 Last Admin: 02/14/25 08:00 Dose: 1.5 mg Documented By: Admin: 02/13/25 23:04 Dose: 1.5 mg Documented By: shahnaz Umeclidinium/Vilanterol (Umeclidinium/Vilanterol 62.5/25mcg 7 Puffs/Inhaler) 1 puffs INH DAILY [facility] Stop: 03/16/25 08:59 Last Admin: 02/14/25 08:02 Dose: 1 puffs Documented By: AMINTA Vitamin D (Cholecalciferol 25 Mcg (1000 Units) Tab) 25 mcg PO QAM [facility] Stop: 03/16/25 08:59 Last Admin: 02/14/25 08:03 Dose: 25 mcg Documented By: AMINTA Discontinued Medications Albuterol (Albut/Ipratrop 3mg/0.5mg Neb 3 Ml Vial) 3 ml NEB NOW STA; Protocol Stop: 02/13/25 16:15 Last Admin: 02/13/25 17:06 Dose: 3 ml Documented By: BENJA Co-signed By: LYNN Albuterol (Albut/Ipratrop 3mg/0.5mg Neb 3 Ml Vial) 3 ml NEB Q6R QIAN; Protocol Stop: 03/15/25 18:59 Last Admin: 02/14/25 07:13 Dose: 3 ml Documented By: Admin: 02/14/25 01:30 Dose: 3 ml Documented By: Admin: 02/13/25 18:54 Dose: 3 ml Documented By: BENJA Co-signed By: LYNN Guaifenesin (Guaifenesin 600 Mg Tabcr) 1,200 mg PO ONE ONE Stop: 02/13/25 18:16 Last Admin: 02/13/25 18:54 Dose: 1,200 mg Documented By: BENJA Co-signed By: LYNN Piperacillin Sod/Tazobactam Sod (Zosyn) 4.5 gm in 100 mls @ 200 mls/hr IV NOW ONE; Protocol Stop: 02/13/25 17:41 Last Infusion: 02/13/25 18:48 Dose: Infused Documented By: Infusion: 02/13/25 18:16 Dose: 200 mls/hr Documented By: Infusion: 02/13/25 17:47 Dose: 0 mls/hr Documented By: Admin: 02/13/25 17:47 Dose: 200 mls/hr Documented By: BENJA Co-signed By: LYNN Vancomycin HCl 1,250 mg/ (Sodium Chloride) 525 mls @ 200 mls/hr IV NOW ONE Stop: 02/13/25 19:49 Last Infusion: 02/13/25 22:17 Dose: Infused Documented By: shahnaz Admin: 02/13/25 18:53 Dose: 200 mls/hr Documented By: BENJA Co-signed By: LYNN Cefepime HCl (Maxipime 2000mg) 2,000 mg in 20 mls @ 5 mls/min IV ONE ONE; Protocol Stop: 02/13/25 18:18 Last Admin: 02/13/25 18:53 Dose: 5 mls/min Documented By: BENJA Co-signed By: LYNN Pantoprazole Sodium (Protonix) 40 mg in 10 mls @ 5 mls/min IV ONE ONE Stop: 02/13/25 19:01 Last Admin: 02/13/25 18:53 Dose: 5 mls/min Documented By: BENJA Co-signed By: LYNN Ioversol (Optiray 320 125ml) 119 ml IV ONCE ONE Stop: 02/13/25 16:41 Last Admin: 02/13/25 16:41 Dose: 119 ml Documented By: GAVI Rosuvastatin Calcium (Rosuvastatin Calcium 20 Mg Tab) 20 mg PO ONE ONE Stop: 02/13/25 18:46 Last Admin: 02/13/25 19:20 Dose: 20 mg Documented By: LYNN Medical Decision Making Differential Diagnosis See ED course. Medical Records Attestation: I reviewed the patient's medical records. Home Medications Current Medication List: was personally reviewed by me Laboratory Data Attestation: I reviewed the patient's lab results. 02/14/25 07:44 02/14/25 07:44 Lab Results 02/13/25 02/13/25 02/13/25 Range/Units 15:06 16:29 17:44 WBC 7.90 (4.8-10.8) K/ul RBC 3.55 L (4.20-5.40) M/uL Hgb 11.5 L (12.0-16.0) g/dl Hct 35.4 L (37.0-47.0) % MCV 99.7 (80.0-100.0) fL MCH 32.4 (25.0-34.0) pg MCHC 32.5 (32.0-36.0) g/dL RDW Std Deviation 49.6 H (36.4-46.3) fL RDW Coeff of Audrey 13.7 (11.5-14.5) % Plt Count 265 (130-400) K/uL MPV 9.2 L (9.4-12.4) fL Immature Gran % (Auto) 0.4 % Neut % (Auto) 72.0 % Lymph % (Auto) 16.8 % Cedar % (Auto) 7.1 % Eos % (Auto) 3.3 % Baso % (Auto) 0.4 % Neut # (Auto) 5.69 (1.40-6.50) K/uL Lymph # (Auto) 1.33 (1.20-3.40) K/uL Cedar # (Auto) 0.56 (0.11-0.59) K/uL Eos # (Auto) 0.26 (0.00-0.50) K/uL Baso # (Auto) 0.03 (0.00-0.20) K/uL Immature Gran # (Auto) 0.03 (0.01-0.20) K/uL PT 9.5 (9.0-12.0) Seconds INR 0.9 (0.9-1.1) APTT 21 (21-31) Seconds PTT Ratio 0.8 Sodium 142 (136-145) mmol/L Potassium 4.2 (3.5-5.1) mmol/L Chloride 105 (98-107) mmol/L Carbon Dioxide 29 (21-32) mmol/L Anion Gap 8 (3-11) BUN 28 H (6-23) mg/dl Creatinine 1.42 H (0.6-1.2) mg/dl Est Cr Clr Drug Dosing 30.5 ml/min eGFR 39.79 BUN/Creatinine Ratio 19.7 (10-20) Glucose 138 H (70-99(Fasting)) mg/dl Calcium 8.4 L (8.6-10.3) mg/dl Total Bilirubin 0.5 (0.2-1.0) mg/dl AST 11 L (13-39) U/L ALT 6 L (7-52) U/L Alkaline Phosphatase 50 (34-104) U/L Troponin I High Sens 8.0 (0-14) pg/ml Total Protein 5.9 L (6.0-8.3) gm/dl Albumin 3.2 L (3.4-5.0) gm/dl Globulin 2.7 (2.5-4.0) gm/dl Albumin/Globulin Ratio 1.2 (0.9-2) Nasal Screen MRSA (PCR) Negative (Negative) Adenovirus (PCR) Not Detected (NotDetected) B. pertussis DNA (PCR) Not Detected (NotDetected) B.parapertussis DNA PCR Not Detected (NotDetected) C. pneumoniae DNA (PCR) Not Detected (NotDetected) Coronavirus OC43 (PCR) Not Detected (NotDetected) Coronavirus HKU1 (PCR) Not Detected (NotDetected) Coronavirus 229E (PCR) Not Detected (NotDetected) SARS-CoV-2 (PCR) Not Detected (NotDetected) Coronavirus NL63 (PCR) Not Detected (NotDetected) Human Metapneumovir PCR Not Detected (NotDetected) Influenza Type A (PCR) Not Detected (NotDetected) Influenza Type B (PCR) Not Detected (NotDetected) M. pneumoniae (PCR) Not Detected (NotDetected) Parainfluenza 1 (PCR) Not Detected (NotDetected) Parainfluenza 2 (PCR) Not Detected (NotDetected) Parainfluenza 3 (PCR) Not Detected (NotDetected) Parainfluenza 4 (PCR) Not Detected (NotDetected) RSV (PCR) Not Detected (NotDetected) Entero/Rhino (PCR) Not Detected (NotDetected) Imaging Data Attestation: I personally reviewed and interpreted this imaging study as follows: Radiologist's Impression: Chest X-Ray 02/13/25 14:58 XR chest 1V not portable CLINICAL HISTORY: Chest pain, nonspecific COMPARISON STUDY: 01/10/2025 FINDINGS: Heart size and pulmonary vasculature are normal. There is mild blunting of the left costophrenic angle. Otherwise the lungs remain aerated. No pneumothorax. IMPRESSION: Possible trace left pleural effusion. No other acute findings seen. ACT 112: Negative or not required by law. Electronically signed by: Tre Payne M.D. 02/13/2025 3:38 PM Chest CTA 02/13/25 16:13 Clinical history: Shortness of breath. Hypoxia Technique: Axial computed tomography images were obtained of the chest after the administration of intravenous contrast according to the CT angiogram protocol Comparison is made to the prior CT dated 01/10/2025 Findings: There is no definite sign of pulmonary embolism. There is emphysema. There are irregular opacities in the lung apices, likely due to pleural parenchymal scarring. There is an unchanged 5 mm right lower lobe nodule. There is an unchanged 2.3 cm focal alveolar opacity in the left lower lobe that may be due to atelectasis. There is an unchanged small left pleural effusion. There is no right pleural effusion or pneumothorax. There is no sign of pulmonary fibrosis or other diffuse interstitial process. No endobronchial lesion is seen There is no mediastinal, hilar, or axillary adenopathy. The thoracic aorta appears unremarkable with no sign of aneurysm or dissection. There is no pericardial effusion. There is coronary atherosclerosis There are several nodules in the left thyroid lobe The visualized upper abdomen appears unremarkable. No fracture is seen. No focal osseous lesion is evident Impression: 1. No definite sign of pulmonary embolism 2. Unchanged small left pleural effusion 3. Emphysema 4. Unchanged small right lower lobe nodule, likely benign but indeterminate in nature. There is also an unchanged focal opacity in the left lower lobe that could be due to atelectasis. A follow-up chest CT could be obtained in 3 months 5. Coronary atherosclerosis 6. Indeterminate thyroid nodules. A thyroid ultrasound could be obtained ACT 112: Positive. There are findings on this exam that require communication between the performing entity and the patient following Patient Test Result Information Act ([place] ACT 112) guidelines. Electronically signed by Kevin Cox 02-13-2025 5:08 PM MDM Narrative See ED course. Impression & Plan Acute exacerbation of chronic obstructive pulmonary disease, Hypoxia, Lung transplant status, bilateral Discharge Plan Visit Data Chief Complaint: Chest Pain Stated Complaint: CHEST PAIN ED Provider: Adrian Zelaya ED Midlevel Provider: Erwin Wagner Discharge Problem: Acute exacerbation of chronic obstructive pulmonary disease, Hypoxia, Lung transplant status, bilateral Patient Disposition: Admitted As Inpatient Condition: Fair Discharge Instructions Interventions: ED Discharge Assessment Last Done: 02/13/25 21:08 Addendum February 14, 2025 17:59 I was consulted by the Advanced Practice Provider and was substantively involved in the patient's visit.This includes aspects of the HPI, MDM, diagnostic interpretations, and disposition/plan. I discussed the case with the [facility] and agree with the findings and plan as documented in [facility] Kristy's note.
[2025-02-13] MEDS: OPTIRAY 320 125ml IV ONE (16:41)
[2025-02-13] MEDS: ALBUT/IPRATROP 3MG/0.5MG NEB 3 ML VIAL NEB STA (17:06)
--- NOTE | 2025-02-13 17:09 | CT Scan Report ---
Clinical history: Shortness of breath. Hypoxia Technique: Axial computed tomography images were obtained of the chest after the administration of intravenous contrast according to the CT angiogram protocol Comparison is made to the prior CT dated 01/10/2025 Findings: There is no definite sign of pulmonary embolism. There is emphysema. There are irregular opacities in the lung apices, likely due to pleural parenchymal scarring. There is an unchanged 5 mm right lower lobe nodule. There is an unchanged 2.3 cm focal alveolar opacity in the left lower lobe that may be due to atelectasis. There is an unchanged small left pleural effusion. There is no right pleural effusion or pneumothorax. There is no sign of pulmonary fibrosis or other diffuse interstitial process. No endobronchial lesion is seen There is no mediastinal, hilar, or axillary adenopathy. The thoracic aorta appears unremarkable with no sign of aneurysm or dissection. There is no pericardial effusion. There is coronary atherosclerosis There are several nodules in the left thyroid lobe The visualized upper abdomen appears unremarkable. No fracture is seen. No focal osseous lesion is evident Impression: 1. No definite sign of pulmonary embolism 2. Unchanged small left pleural effusion 3. Emphysema 4. Unchanged small right lower lobe nodule, likely benign but indeterminate in nature. There is also an unchanged focal opacity in the left lower lobe that could be due to atelectasis. A follow-up chest CT could be obtained in 3 months 5. Coronary atherosclerosis 6. Indeterminate thyroid nodules. A thyroid ultrasound could be obtained ACT 112: Positive. There are findings on this exam that require communication between the performing entity and the patient following Patient Test Result Information Act ([place] ACT 112) guidelines. Electronically signed by Kevin Cox 02-13-2025 5:08 PM
[2025-02-13] MEDS ORDERED: VANCOMYCIN CONSULT ACTIVE PRN (17:12)
[2025-02-13 17:32] LABS: Chlamydia pneumoniae PCR Not Detected (NotDetected); Coronavirus 229E PCR Not Detected (NotDetected); Coronavirus CoV-2 (COVID19)PCR Not Detected (NotDetected); Coronavirus HKU1 PCR Not Detected (NotDetected); Coronavirus NL63 PCR Not Detected (NotDetected); Coronavirus OC43PCR Not Detected (NotDetected); Human Metapneumovirus PCR Not Detected (NotDetected); Parainfluenza Virus 1 PCR Not Detected (NotDetected); Parainfluenza Virus 2 PCR Not Detected (NotDetected); Parainfluenza Virus 3 PCR Not Detected (NotDetected); Parainfluenza Virus 4 PCR Not Detected (NotDetected); Respiratory Syncytial VirusPCR Not Detected (NotDetected); Rhinovirus/Enterovirus PCR Not Detected (NotDetected)
[2025-02-13] MEDS: PIPERACILLIN/TAZOBACTAM 4.5 GM/100 ML BAG IV ONE (17:47)
--- NOTE | 2025-02-13 18:13 | Electrocardiogram Report ---
Test Reason : Blood Pressure : */* mmHG Vent. Rate : 75 BPM Atrial Rate : 75 BPM P-R Int : 128 ms QRS Dur : 84 ms QT Int : 408 ms P-R-T Axes : 83 78 84 degrees QTcB Int : 455 ms Normal sinus rhythm Nonspecific ST abnormality Abnormal ECG When compared with ECG of 10-Jan-2025 18:22, No significant change was found Confirmed by Arthur Pack ([id number]) on 02/13/2025 6:13:28 PM Referred By: Confirmed By: Arthur Pack
[2025-02-13] MEDS ORDERED: MELATONIN 3 MG TAB PO PRN (18:47)
[2025-02-13] MEDS ORDERED: ONDANSETRON INJ 2 MG/ML 2 ML VIAL IV PRN (18:47)
[2025-02-13] MEDS ORDERED: ALUMINUM/MAGNESIUM SUSP 30 ML UDC PO PRN (18:47)
[2025-02-13] MEDS: CEFEPIME 2000MG 2,000 MG/20 ML SYR IV ONE (18:53)
[2025-02-13] MEDS: VANCOMYCIN HCL 1,250 MG in SODIUM CHLORIDE 0.9% 500 ML IV ONE (18:53)
[2025-02-13] MEDS: PANTOprazole 40 MG/10 ML SYR IV ONE (18:53)
[2025-02-13] MEDS: guaiFENesin 600 MG TABCR PO ONE (18:54)
[2025-02-13] MEDS: ALBUT/IPRATROP 3MG/0.5MG NEB 3 ML VIAL NEB SCH (18:54)
[2025-02-13] MEDS: SODIUM CHLORIDE 0.9% 1,000 ML IV SCH (18:55)
--- NOTE | 2025-02-13 19:06 | History & Physical Report ---
Date of Service February 13, 2025 Assessment & Plan (1) Chest pain: Plan: Masha Mcneil is a 69 yo woman with PMH of lung transplant (november 2023 at [facility]), CKD, diabetes, mood disorder. she's following with Dr. Barry Wise pulmonary at [facility], she's can now walk several miles per day. in october 2024, she was at [facility] for PNA and transfer to [facility]. in dec 2024, she was having chest pain episode, but opt for outpatient ischemia eval but did not has appointment for sane rn one week prior to admission, she been having chest pain, heartburn sensation, worse with walking. no nausea no vomiting. 4-5 days ago, she started having shortness of breath, congestion, and came to our ED on 02/13,CTA negative for PE, however, she was having acute copd exacerbation, bronchitis. 1. chest pain episode 2. heartburn 3. acute bronchitis 4. lung transplant (november 2023) 5, CKD 6. mood disorder 1. chest pain episode been having chest discomfort and heartburn sensation f/u on repeat echo crestor 20mg, metoprolol. aspirin 2. heartburn, either atypical angina versus true protonix BID, carafate 3. acute bronchitis solumedrol, cefepime, vancomycin, duoneb mucinex. flutter valve 4. lung transplant, received in november 2023 at [facility] she's on prednisone 10mg am, tacrolimus 0.5 BID, azathioprine 50mg am immunosuppression, bactrim 800-160mg 0.5 BID acyclovir 400 PO BID prevymis 480mg morning trelegy daily 5. GERd, protonix 6. mood disorder, lexapro 15mg 7. hypertension, amlodipine 5mg; coreg 12.5 BID. 8. neuropathy; gabapentin 100mg 9. diabetes, check glucose every 6 hours she's stated she's came off insulin a few months ago (2) Acute bronchitis with COPD: (3) Lung transplant recipient: (4) Heartburn: History of Present Illness Chief Complaint: heartburn worsening with exertion since one week ago COPD exacerbation, coughing, runny nose, sinus pressure lung transplant recipient at [facility] (Following with Dr. Barry Napier MD) Primary Care Provider: JAXON Valles Masha Mcneil is a 69 yo woman with PMH of COPD (s/p lung transplant november 2023 at [facility]), CKD stage 4, diabetes, copd, neuropathy. anxiety disorder she's was Hospitalized in dec 2024 for chest pain episode, but did not establish with sane rn. since age 17, smoke 1 ppd and quitted after lung transplant after her lung transplant can walk several miles per day since one weeks ago, she's been having heartburn sensation with walking. also been having midsternal chest pain. she's stated the pain and heartburn started when she's walk around. in addition, she' been having 4-5 days of runny nose, shortness of breath, coughing spell,, she's was has low temp of 36.4. she's presented to our ED on 02/13/2025 for evaluation, CTA negative for PE, but found focal opacity in the left lower lobe, right lower lobe nodules. also found coronary atherosclerosis she will be admitted to medicine services for acute copd exacerbation, brochitis and concern for atypical angina she was started on cefepime and vancomycin. Allergies Allergy/AdvReac Type Severity Reaction Status Date / Time aspirin AdvReac Intermediate GI SYMPTOMS Verified 11/12/24 16:19 Home Medications Medication Instructions Recorded Confirmed Type escitalopram oxalate 10 mg tablet 15 mg PO QAM 08/05/22 01/10/25 History (Lexapro) Portable Oxygen #1 ea 09/15/22 08/08/24 Rx pantoprazole 40 mg tablet,delayed 40 mg PO QAM #30 tabs 11/06/23 01/10/25 Rx release (Protonix) albuterol sulfate 90 mcg/actuation 2 puff inhalation Q4H PRN 02/16/24 01/10/25 Rx aerosol inhaler shortness of breath or wheezing #8.5 grams fluticasone fur. 100 mcg-umeclid 1 inh inhalation DAILY #28 ea 02/16/24 01/10/25 Rx 62.5 mcg-vilant 25 mcg inhalat.powder (Trelegy Ellipta) aspirin 81 mg tablet,delayed 81 mg PO QAM 04/06/24 01/10/25 History release calcium carbonate 600 mg PO BID 04/06/24 01/10/25 History gabapentin 100 mg capsule 100 mg PO HS 04/06/24 01/10/25 History insulin lispro 100 unit/mL 1 sliding scale dose subcut 04/06/24 01/10/25 History subcutaneous pen DIRECTED letermovir 480 mg tablet (Prevymis) 480 mg PO QAM 04/06/24 01/10/25 History magnesium chloride 64 mg 64 mg PO QAM 04/06/24 01/10/25 History (magnesium chloride) tablet,delayed release prednisone 5 mg tablet 10 mg PO QAM 04/06/24 01/10/25 History rosuvastatin 5 mg tablet 5 mg PO HS 04/06/24 01/10/25 History acyclovir 200 mg capsule 400 mg PO AMPM 08/08/24 01/10/25 History carvedilol 12.5 mg tablet 12.5 mg PO AMPM 08/08/24 01/10/25 History cholecalciferol (vitamin D3) 25 25 mcg PO QAM 08/08/24 01/10/25 History mcg (1,000 unit) tablet (Vitamin D3) tacrolimus 0.5 mg capsule, 0 mg PO BID 08/08/24 01/10/25 History immediate-release abaloparatide (Tymlos) 80 mcg subcut DAILY 10/12/24 01/10/25 History azathioprine 50 mg tablet 50 mg PO QAM 10/12/24 01/10/25 History amlodipine 5 mg tablet 5 mg PO QAM 10/25/24 01/10/25 History bisacodyl 5 mg tablet,delayed 5 mg PO DAILY PRN Constipation 10/25/24 01/10/25 History release (Dulcolax (bisacodyl)) sulfamethoxazole 800 0.5 tab PO BID 01/10/25 01/10/25 History mg-trimethoprim 160 mg tablet Past Med/Surg History Problem List (Updated 02/13/25 @ 18:57 by Dileep Weiss DO) Heartburn Acute bronchitis with COPD Chest pain (Acute) Pericardial effusion Chest pressure Dyspnea on exertion (Acute) Pneumonia (Acute) B12 deficiency anemia Medication side effect (Acute) DUNG (acute kidney injury) (Acute) Acute hyperkalemia (Acute) Chronic kidney disease, stage 4 (severe) Hypocalcemia (Acute) Hypomagnesemia Anemia Multifocal pneumonia Hypoxia (Acute) Lung transplant recipient (Acute) Prediabetes Lower back pain Paroxysmal atrial tachycardia Acid reflux Ex-smoker COPD (chronic obstructive pulmonary disease) (Acute) Dyspnea Cough Acute on chronic respiratory failure with hypoxia (Acute) Dysfunction of both eustachian tubes Acute respiratory failure with hypoxia Paroxysmal atrial tachycardia Acute dyspnea (Acute) Lung transplant candidate Sacroiliitis Multiple pulmonary nodules no biopsies, monitored Anxiety with depression Medical History History of tobacco use Sleep apnea, obstructive CPAP History of peptic ulcer disease Family history of paroxysmal atrial tachycardia History of COVID-19 (~2021) x3 sob, cough, fatigue; resolved History of recent pneumonia (~09/2022) Surgical History History of lung transplant Hx of cardiac catheterization (~2022) Had in [place] as part of work up for [facility] to get on Lung Transplant list, no stents Hx of colonoscopy with polypectomy Hx of bilateral cataract extraction History of partial hysterectomy History of carpal tunnel surgery of right wrist History of broken collarbone sx to repair History of tooth extraction all teeth H/O partial thyroidectomy (~1989) d/t hemorrhaging?--unknown cause, no meds Family History Mother , from ovarian cancer Cancer Ovarian Sister Cancer Ovarian Father COPD (chronic obstructive pulmonary disease) Other No family history of adverse response to anesthesia Social History Smoking Status: Former smoker Tobacco Type: Cigarettes Age Started Using Tobacco: 17; Age Quit Using Tobacco: 64; packs per day: 1; Cigarettes Per Day: Less than a packet; Second Hand Exposure: Yes; Do You Dip or Chew Tobacco: No; Hx Alcohol Use: No Hx Substance Use: No Preferred Language: Spanish 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 Ability: Effective Security Support Analyst 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 Beliefs That Will Affect Care: None marital status: Current Living Situation: Family Current Living Situation Comment: in one story home with daughter Virgen Feels Safe at Home: Yes Assistive Devices: Oxygen - Continuous and Walker Review of Systems Constitutional: Constitutional: No Weight Change, No Fever, No Chills, No Night Sweats, No Fatigue, No Malaise ENT/Mouth: sinus congestion Cardiovascular: mid-sternal chest pain; no palpitation; + for dyspna on exertion lung: for lung transplant; + for congestion; Gastrointestinal: No Nausea, No Vomiting, No Diarrhea, No Constipation, No Pain, + for heartburn; negative for melena ID: no sick contact; MSK: no muscle achiness neuro; no dizziness; no headache Skin: No Skin Lesions, No Pruritis, No Hair Changes, No Breast/Skin Changes, No Nipple Discharge Physical Exam Physical Exam: VITALS: Reviewed. WEIGHT/BMI reviewed. GEN: Healthy appearing, well-developed, NAD. Neuro: AAox3 . HEENT -Head: NC/AT; -Eyes: PERRL, EOMI. No discharge or redn ess; NECK: Supple, with no masses. CV: RRR, no m/r/g. LUNGS: CTAB, no w/r/c. congested breath sound; on room air ABD: Soft, NT/ND, NBS, no masses or organomegaly. no epigastric tenderness : N/A SKIN: Warm, well perfused. No skin rashes or abnormal lesions. MSK: No deformities, Normal gait. EXT: No clubbing, cyanosis, or edema. NEURO: AAox3 Results & Data Results & Data Vital Signs (Past 12 Hours) Vital Signs Temp Pulse Pulse Resp BP BP Pulse Ox 02/13/25 18:00 63 31 H 142/92 H 94 02/13/25 17:54 62 02/13/25 17:49 02/13/25 16:31 88 12 91 02/13/25 16:31 88 12 138/78 91 02/13/25 16:31 02/13/25 14:55 36.4 C L 79 20 112/71 93 Pulse Ox Pulse Ox Pulse Ox O2 Del Method 02/13/25 18:00 Room Air 02/13/25 17:54 02/13/25 17:49 88 L 92 95 Room Air 02/13/25 16:31 Room Air 02/13/25 16:31 Room Air 02/13/25 16:31 Room Air 02/13/25 14:55 Room Air Laboratory Results Laboratory Results - last 72 hr 02/13/25 02/13/25 15:06 16:29 WBC 7.90 RBC 3.55 L Hgb 11.5 L Hct 35.4 L MCV 99.7 MCH 32.4 MCHC 32.5 RDW Std Deviation 49.6 H RDW Coeff of Audrey 13.7 Plt Count 265 MPV 9.2 L Immature Gran % (Auto) 0.4 Neut % (Auto) 72.0 Lymph % (Auto) 16.8 [place] % (Auto) 7.1 Eos % (Auto) 3.3 Baso % (Auto) 0.4 Neut # (Auto) 5.69 Lymph # (Auto) 1.33 [place] # (Auto) 0.56 Eos # (Auto) 0.26 Baso # (Auto) 0.03 Immature Gran # (Auto) 0.03 PT 9.5 INR 0.9 APTT 21 PTT Ratio 0.8 Sodium 142 Potassium 4.2 Chloride 105 Carbon Dioxide 29 Anion Gap 8 BUN 28 H Creatinine 1.42 H Est Cr Clr Drug Dosing 30.5 eGFR 39.79 BUN/Creatinine Ratio 19.7 Glucose 138 H Calcium 8.4 L Total Bilirubin 0.5 AST 11 L ALT 6 L Alkaline Phosphatase 50 Troponin I High Sens 8.0 Total Protein 5.9 L Albumin 3.2 L Globulin 2.7 Albumin/Globulin Ratio 1.2 Adenovirus (PCR) Not Detected B. pertussis DNA (PCR) Not Detected B.parapertussis DNA PCR Not Detected C. pneumoniae DNA (PCR) Not Detected Coronavirus OC43 (PCR) Not Detected Coronavirus HKU1 (PCR) Not Detected Coronavirus 229E (PCR) Not Detected SARS-CoV-2 (PCR) Not Detected Coronavirus NL63 (PCR) Not Detected Human Metapneumovir PCR Not Detected Influenza Type A (PCR) Not Detected Influenza Type B (PCR) Not Detected M. pneumoniae (PCR) Not Detected Parainfluenza 1 (PCR) Not Detected Parainfluenza 2 (PCR) Not Detected Parainfluenza 3 (PCR) Not Detected Parainfluenza 4 (PCR) Not Detected RSV (PCR) Not Detected Entero/Rhino (PCR) Not Detected Code Status & VTE Plan Code Status full code PG Care Time/CCT Total # of Minutes Spent Total Time Spent with Patient: Total time spent is greater than 50% in coordination of care (as documented) at patient's floor/unit and/or counseling patient: Coding Level of Care Code 50138 INT INP/OBS CARE 2/55MIN Diagnoses Chest pain R07.9 Acute bronchitis with COPD J44.0; J20.9 Lung transplant recipient Z94.2 Heartburn R12 Time Spent (min) 45
[2025-02-13] MEDS: ROSUVASTATIN CALCIUM 20 MG TAB PO ONE (19:20)
[2025-02-13] MEDS ORDERED: ALBUTEROL HFA 8 GM INHALER INH PRN (21:33)
[2025-02-13] MEDS: GABAPENTIN 100 MG CAP PO SCH (22:24)
[2025-02-13] MEDS: ACYCLOVIR 200 MG CAP PO SCH (22:59)
[2025-02-13] MEDS: ACETAMINOPHEN 325 MG TAB PO PRN (23:03)
[2025-02-13] MEDS: TACROLIMUS 0.5 MG CAP PO SCH (23:04)
[2025-02-14] MEDS: CEFEPIME 2000MG 2,000 MG/20 ML SYR IV SCH (06:15)
[2025-02-14] MEDS: NYSTATIN POWDER 15GM BTL EXT PRN (07:59)
[2025-02-14] MEDS: UMECLIDINIUM/VILANTEROL 62.5/25MCG 7 PUFFS/INHALER INH SCH (08:02)
[2025-02-14] MEDS: FLUTICASONE FUROATE 100MCG 14 PUFFS/INHALER INH SCH (08:02)
[2025-02-14] MEDS: MAGNESIUM CHLORIDE W/CALCIUM 64MG DELAYED REL TAB PO SCH (08:03)
[2025-02-14] MEDS: CHOLECALCIFEROL 25 MCG (1000 UNITS) TAB PO SCH (08:03)
[2025-02-14] MEDS: ASPIRIN 81 MG ECTAB PO SCH (08:03)
[2025-02-14] MEDS: PANTOprazole 40 MG/10 ML SYR IV SCH (08:04)
[2025-02-14] MEDS: ESCITALOPRAM OXALATE 10 MG TAB PO SCH (08:04)
[2025-02-14] MEDS ORDERED: ALBUT/IPRATROP 3MG/0.5MG NEB 3 ML VIAL NEB PRN (08:07)
[2025-02-14] MEDS ORDERED: guaiFENesin 600 MG TABCR PO SCH (09:00)
[2025-02-14] MEDS ORDERED: NON-FORMULARY MEDICATION (Fluticasone-Umeclidin-Vilanter [Trelegy Ellipta] 100-62.5-25 mcg INH SCH (09:00)
[2025-02-14] MEDS ORDERED: OXYGEN SCH (09:00)
[2025-02-14 09:10] LABS: Hematocrit (blood only) 31.4 % (37.0-47.0); Hemoglobin 10.2 g/dl (12.0-16.0); Immature Granulocytes # (auto) 0.03 K/uL (0.01-0.20); Immature Granulocytes % (auto) 0.5 %; Mean Corpuscular Hemoglobin 32.0 pg (25.0-34.0); Mean Corpuscular Volume 98.4 fL (80.0-100.0); Platelet Count 240 K/uL (130-400); RDW Standard Deviation 48.6 fL (36.4-46.3); Red Blood Count 3.19 M/uL (4.20-5.40); White Blood Count 6.38 K/ul (4.8-10.8)
[2025-02-14 09:34] LABS: Alanine Aminotransferase 5.0 U/L (7-52); Albumin Globulin Ratio 1.2 (0.9-2); Albumin Level 2.8 gm/dl (3.4-5.0); Alkaline Phosphatase 42.0 U/L (34-104); Anion Gap 6.0 (3-11); Bilirubin,Total 0.4 mg/dl (0.2-1.0); Blood Urea Nitrogen 26.0 mg/dl (6-23); Calcium 8.1 mg/dl (8.6-10.3); Carbon Dioxide 26.0 mmol/L (21-32); Chloride 108.0 mmol/L (98-107); Creatinine Clr Calc Pharmacy 30.9 ml/min; Globulin 2.4 gm/dl (2.5-4.0); Glucose 68.0 mg/dl (70-99(Fasting)); Potassium 4.7 mmol/L (3.5-5.1); Sodium 140.0 mmol/L (136-145); Total Protein 5.2 gm/dl (6.0-8.3)
--- NOTE | 2025-02-14 10:01 | XCELERA ---
[id number] \\[id number]
--- NOTE | 2025-02-14 10:34 | Hospitalist Progress Note ---
Date of Service February 14, 2025 Assessment & Plan (1) Chest pain: Plan: Masha Mcneil is a 69 yo woman with PMH of lung transplant (november 2023 at [facility]), CKD, diabetes, mood disorder. she's following with Dr. Barry Wise pulmonary at [facility], she's can now walk several miles per day. in october 2024, she was at [facility] for PNA and transfer to [facility]. 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 no nausea no vomiting. 4-5 days ago, she started having shortness of breath, congestion, and came to our ED on 02/13,CTA negative for PE, however, she was having acute copd exacerbation, bronchitis. 1. chest pain episode 2. heartburn 3. acute bronchitis 4. lung transplant (november 2023) 5, CKD 6. mood disorder 1. chest pain episode been having chest discomfort and heartburn sensation f/u on repeat echo crestor 20mg, metoprolol. aspirin troponin level review cardiology notified, 2. heartburn, either atypical angina versus true protonix BID, carafate still has heartburn, but improve ffrom yesterday 3. acute bronchitis solumedrol, cefepime, vancomycin, duoneb mucinex. flutter valve 4. lung transplant, received in november 2023 at [facility] she's on prednisone 10mg am, tacrolimus 0.5 BID, azathioprine 50mg am immunosuppression, bactrim 800-160mg 0.5 BID acyclovir 400 PO BID prevymis 480mg morning trelegy daily 5. GERd, protonix carafate added 6. mood disorder, lexapro 15mg 7. hypertension, amlodipine 5mg; coreg 12.5 BID. 8. neuropathy; gabapentin 100mg 9. diabetes, check glucose every 6 hours she's stated she's came off insulin a few months ago (2) Acute bronchitis with COPD: (3) Lung transplant recipient: (4) Heartburn: Admission and Anticipated Discharge Date Admission Date: February 13, 2025 Subjective she still has chest pain, heartburn sensation and her BP is elevated troponin been flat but she will need ischemia evaluation she was admitted o 01/10--01/12, cardiology consulted Review of Systems Review of Systems: General: no fever; no chill heent: no headache; + for sinus pressure heart: + for midsternal chest pain; no palpitation lung: + for shortness of breath; no wheezing abdomen: + for heartburn; no melena; no nausea, no vomiting Physical Exam Physical Exam: VITALS: Reviewed. WEIGHT/BMI reviewed. GEN: Healthy appearing, well-developed, NAD. PSYCH: Good Judgment. AOx3. Normal memory, mood, and affect. HEENT -Head: NC/AT; -Mouth and throat: MMM. Normal gums, muc raul, palate,. Good dentition. NECK: Supple, with no masses. CV: RRR, no m/r/g. LUNGS: CTAB, no w/r/c. no wheezing; no rales ABD: Soft, NT/ND, NBS, no masses or organomegaly. no epigastric tenderness SKIN: Warm, well perfused. No skin rashes or abnormal lesions. MSK: No deformities, Normal gait. EXT: No clubbing, cyanosis, or edema. NEURO: AAOx3 Results & Data Results & Data Vital Signs (Past 12 Hours) Vital Signs Temp Pulse Pulse Resp BP Pulse Ox O2 Del Method 02/14/25 08:08 36.3 C L 67 20 187/84 H 90 Room Air 02/14/25 07:15 65 16 95 Room Air 02/14/25 06:19 94 Room Air 02/14/25 03:02 36.5 C 65 18 139/71 94 Room Air 02/14/25 01:31 66 16 97 Nasal Cannula 02/13/25 23:53 88 L Nasal Cannula 02/13/25 23:00 69 O2 Flow Rate 02/14/25 08:08 02/14/25 07:15 02/14/25 06:19 02/14/25 03:02 02/14/25 01:31 1 02/13/25 23:53 1 02/13/25 23:00 Laboratory Results Laboratory Results - last 72 hr 02/13/25 02/13/25 02/13/25 15:06 16:29 17:44 WBC 7.90 RBC 3.55 L Hgb 11.5 L Hct 35.4 L MCV 99.7 MCH 32.4 MCHC 32.5 RDW Std Deviation 49.6 H RDW Coeff of Audrey 13.7 Plt Count 265 MPV 9.2 L Immature Gran % (Auto) 0.4 Neut % (Auto) 72.0 Lymph % (Auto) 16.8 [place] % (Auto) 7.1 Eos % (Auto) 3.3 Baso % (Auto) 0.4 Neut # (Auto) 5.69 Lymph # (Auto) 1.33 [place] # (Auto) 0.56 Eos # (Auto) 0.26 Baso # (Auto) 0.03 Immature Gran # (Auto) 0.03 PT 9.5 INR 0.9 APTT 21 PTT Ratio 0.8 Sodium 142 Potassium 4.2 Chloride 105 Carbon Dioxide 29 Anion Gap 8 BUN 28 H Creatinine 1.42 H Est Cr Clr Drug Dosing 30.5 eGFR 39.79 BUN/Creatinine Ratio 19.7 Glucose 138 H Calcium 8.4 L Total Bilirubin 0.5 AST 11 L ALT 6 L Alkaline Phosphatase 50 Troponin I High Sens 8.0 Total Protein 5.9 L Albumin 3.2 L Globulin 2.7 Albumin/Globulin Ratio 1.2 Nasal Screen MRSA (PCR) Negative Adenovirus (PCR) Not Detected B. pertussis DNA (PCR) Not Detected B.parapertussis DNA PCR Not Detected C. pneumoniae DNA (PCR) Not Detected Coronavirus OC43 (PCR) Not Detected Coronavirus HKU1 (PCR) Not Detected Coronavirus 229E (PCR) Not Detected SARS-CoV-2 (PCR) Not Detected Coronavirus NL63 (PCR) Not Detected Human Metapneumovir PCR Not Detected Influenza Type A (PCR) Not Detected Influenza Type B (PCR) Not Detected M. pneumoniae (PCR) Not Detected Parainfluenza 1 (PCR) Not Detected Parainfluenza 2 (PCR) Not Detected Parainfluenza 3 (PCR) Not Detected Parainfluenza 4 (PCR) Not Detected RSV (PCR) Not Detected Entero/Rhino (PCR) Not Detected 02/13/25 02/14/25 21:49 07:44 WBC 6.38 RBC 3.19 L Hgb 10.2 L Hct 31.4 L MCV 98.4 MCH 32.0 MCHC 32.5 RDW Std Deviation 48.6 H RDW Coeff of Audrey 13.6 Plt Count 240 MPV 9.5 Immature Gran % (Auto) 0.5 Neut % (Auto) 70.5 Lymph % (Auto) 16.6 [place] % (Auto) 8.6 Eos % (Auto) 3.3 Baso % (Auto) 0.5 Neut # (Auto) 4.50 Lymph # (Auto) 1.06 L [place] # (Auto) 0.55 Eos # (Auto) 0.21 Baso # (Auto) 0.03 Immature Gran # (Auto) 0.03 PT INR APTT PTT Ratio Sodium 140 Potassium 4.7 Chloride 108 H Carbon Dioxide 26 Anion Gap 6 BUN 26 H Creatinine 1.40 H Est Cr Clr Drug Dosing 30.9 eGFR 40.47 BUN/Creatinine Ratio 18.6 Glucose 68 L Calcium 8.1 L Total Bilirubin 0.4 AST 9 L ALT 5 L Alkaline Phosphatase 42 Troponin I High Sens 6.4 5.7 Total Protein 5.2 L Albumin 2.8 L Globulin 2.4 L Albumin/Globulin Ratio 1.2 Nasal Screen MRSA (PCR) Adenovirus (PCR) B. pertussis DNA (PCR) B.parapertussis DNA PCR C. pneumoniae DNA (PCR) Coronavirus OC43 (PCR) Coronavirus HKU1 (PCR) Coronavirus 229E (PCR) SARS-CoV-2 (PCR) Coronavirus NL63 (PCR) Human Metapneumovir PCR Influenza Type A (PCR) Influenza Type B (PCR) M. pneumoniae (PCR) Parainfluenza 1 (PCR) Parainfluenza 2 (PCR) Parainfluenza 3 (PCR) Parainfluenza 4 (PCR) RSV (PCR) Entero/Rhino (PCR) Diagnostic Findings Laboratory Results WBC 6.38 K/ul (4.8-10.8) 02/14/25 07:44 RBC 3.19 M/uL (4.20-5.40) L 02/14/25 07:44 Hgb 10.2 g/dl (12.0-16.0) L 02/14/25 07:44 Hct 31.4 % (37.0-47.0) L 02/14/25 07:44 MCV 98.4 fL (80.0-100.0) 02/14/25 07:44 MCH 32.0 pg (25.0-34.0) 02/14/25 07:44 MCHC 32.5 g/dL (32.0-36.0) 02/14/25 07:44 RDW Std Deviation 48.6 fL (36.4-46.3) H 02/14/25 07:44 RDW Coeff of Audrey 13.6 % (11.5-14.5) 02/14/25 07:44 Plt Count 240 K/uL (130-400) 02/14/25 07:44 MPV 9.5 fL (9.4-12.4) 02/14/25 07:44 Immature Gran % (Auto) 0.5 % 02/14/25 07:44 Neut % (Auto) 70.5 % 02/14/25 07:44 Lymph % (Auto) 16.6 % 02/14/25 07:44 [place] % (Auto) 8.6 % 02/14/25 07:44 Eos % (Auto) 3.3 % 02/14/25 07:44 Baso % (Auto) 0.5 % 02/14/25 07:44 Neut # (Auto) 4.50 K/uL (1.40-6.50) 02/14/25 07:44 Lymph # (Auto) 1.06 K/uL (1.20-3.40) L 02/14/25 07:44 [place] # (Auto) 0.55 K/uL (0.11-0.59) 02/14/25 07:44 Eos # (Auto) 0.21 K/uL (0.00-0.50) 02/14/25 07:44 Baso # (Auto) 0.03 K/uL (0.00-0.20) 02/14/25 07:44 Immature Gran # (Auto) 0.03 K/uL (0.01-0.20) 02/14/25 07:44 PT 9.5 Seconds (9.0-12.0) 02/13/25 15:06 INR 0.9 (0.9-1.1) 02/13/25 15:06 APTT 21 Seconds (21-31) 02/13/25 15:06 PTT Ratio 0.8 02/13/25 15:06 Sodium 140 mmol/L (136-145) 02/14/25 07:44 Potassium 4.7 mmol/L (3.5-5.1) 02/14/25 07:44 Chloride 108 mmol/L (98-107) H 02/14/25 07:44 Carbon Dioxide 26 mmol/L (21-32) 02/14/25 07:44 Anion Gap 6 (3-11) 02/14/25 07:44 BUN 26 mg/dl (6-23) H 02/14/25 07:44 Creatinine 1.40 mg/dl (0.6-1.2) H 02/14/25 07:44 Est Cr Clr Drug Dosing 30.9 ml/min 02/14/25 07:44 eGFR 40.47 02/14/25 07:44 BUN/Creatinine Ratio 18.6 (10-20) 02/14/25 07:44 Glucose 68 mg/dl (70-99(Fasting)) L 02/14/25 07:44 Calcium 8.1 mg/dl (8.6-10.3) L 02/14/25 07:44 Total Bilirubin 0.4 mg/dl (0.2-1.0) 02/14/25 07:44 AST 9 U/L (13-39) L 02/14/25 07:44 ALT 5 U/L (7-52) L 02/14/25 07:44 Alkaline Phosphatase 42 U/L (34-104) 02/14/25 07:44 Troponin I High Sens 5.7 pg/ml (0-14) 02/14/25 07:44 Total Protein 5.2 gm/dl (6.0-8.3) L 02/14/25 07:44 Albumin 2.8 gm/dl (3.4-5.0) L 02/14/25 07:44 Globulin 2.4 gm/dl (2.5-4.0) L 02/14/25 07:44 Albumin/Globulin Ratio 1.2 (0.9-2) 02/14/25 07:44 Nasal Screen MRSA (PCR) Negative (Negative) 02/13/25 17:44 Adenovirus (PCR) Not Detected (NotDetected) 02/13/25 16:29 B. pertussis DNA (PCR) Not Detected (NotDetected) 02/13/25 16:29 B.parapertussis DNA PCR Not Detected (NotDetected) 02/13/25 16:29 C. pneumoniae DNA (PCR) Not Detected (NotDetected) 02/13/25 16:29 Coronavirus OC43 (PCR) Not Detected (NotDetected) 02/13/25 16:29 Coronavirus HKU1 (PCR) Not Detected (NotDetected) 02/13/25 16:29 Coronavirus 229E (PCR) Not Detected (NotDetected) 02/13/25 16:29 SARS-CoV-2 (PCR) Not Detected (NotDetected) 02/13/25 16:29 Coronavirus NL63 (PCR) Not Detected (NotDetected) 02/13/25 16:29 Human Metapneumovir PCR Not Detected (NotDetected) 02/13/25 16:29 Influenza Type A (PCR) Not Detected (NotDetected) 02/13/25 16:29 Influenza Type B (PCR) Not Detected (NotDetected) 02/13/25 16:29 M. pneumoniae (PCR) Not Detected (NotDetected) 02/13/25 16:29 Parainfluenza 1 (PCR) Not Detected (NotDetected) 02/13/25 16:29 Parainfluenza 2 (PCR) Not Detected (NotDetected) 02/13/25 16:29 Parainfluenza 3 (PCR) Not Detected (NotDetected) 02/13/25 16:29 Parainfluenza 4 (PCR) Not Detected (NotDetected) 02/13/25 16:29 RSV (PCR) Not Detected (NotDetected) 02/13/25 16:29 Entero/Rhino (PCR) Not Detected (NotDetected) 02/13/25 16:29 Impressions Chest X-Ray 02/13/25 14:58 XR chest 1V not portable CLINICAL HISTORY: Chest pain, nonspecific COMPARISON STUDY: 01/10/2025 FINDINGS: Heart size and pulmonary vasculature are normal. There is mild blunting of the left costophrenic angle. Otherwise the lungs remain aerated. No pneumothorax. IMPRESSION: Possible trace left pleural effusion. No other acute findings seen. ACT 112: Negative or not required by law. Electronically signed by: Tre Payne M.D. 02/13/2025 3:38 PM Chest CTA 02/13/25 16:13 Clinical history: Shortness of breath. Hypoxia Technique: Axial computed tomography images were obtained of the chest after the administration of intravenous contrast according to the CT angiogram protocol Comparison is made to the prior CT dated 01/10/2025 Findings: There is no definite sign of pulmonary embolism. There is emphysema. There are irregular opacities in the lung apices, likely due to pleural parenchymal scarring. There is an unchanged 5 mm right lower lobe nodule. There is an unchanged 2.3 cm focal alveolar opacity in the left lower lobe that may be due to atelectasis. There is an unchanged small left pleural effusion. There is no right pleural effusion or pneumothorax. There is no sign of pulmonary fibrosis or other diffuse interstitial process. No endobronchial lesion is seen There is no mediastinal, hilar, or axillary adenopathy. The thoracic aorta appears unremarkable with no sign of aneurysm or dissection. There is no pericardial effusion. There is coronary atherosclerosis There are several nodules in the left thyroid lobe The visualized upper abdomen appears unremarkable. No fracture is seen. No focal osseous lesion is evident Impression: 1. No definite sign of pulmonary embolism 2. Unchanged small left pleural effusion 3. Emphysema 4. Unchanged small right lower lobe nodule, likely benign but indeterminate in nature. There is also an unchanged focal opacity in the left lower lobe that could be due to atelectasis. A follow-up chest CT could be obtained in 3 months 5. Coronary atherosclerosis 6. Indeterminate thyroid nodules. A thyroid ultrasound could be obtained ACT 112: Positive. There are findings on this exam that require communication between the performing entity and the patient following Patient Test Result Information Act ([place] ACT 112) guidelines. Electronically signed by Kevin Cox 02-13-2025 5:08 PM Medications Administered Current Inpatient Medications Acetaminophen (Acetaminophen 325 Mg Tab) 650 mg PO Q4H PRN PRN Reason: pain/fever Stop: 03/15/25 18:46 Last Admin: 02/13/25 23:03 Dose: 650 mg Acyclovir (Acyclovir 200 Mg Cap) 400 mg PO AMHS QIAN Stop: 03/15/25 22:14 Last Admin: 02/14/25 08:03 Dose: 400 mg Al Hydrox/Mg Hydrox/Simethicone (Aluminum/Magnesium Susp 30 Ml Udc) 30 ml PO Q6H PRN PRN Reason: Dyspepsia Stop: 03/15/25 18:46 Albuterol (Albut/Ipratrop 3mg/0.5mg Neb 3 Ml Vial) 3 ml NEB Q6R PRN; Protocol PRN Reason: Wheezing Stop: 03/16/25 08:06 Amlodipine Besylate (Amlodipine Besylate 5 Mg Tab) 5 mg PO QAM [facility] Stop: 03/16/25 08:59 Last Admin: 02/14/25 08:04 Dose: 5 mg Aspirin (Aspirin 81 Mg Ectab) 81 mg PO QAM [facility] Stop: 03/16/25 08:59 Last Admin: 02/14/25 08:03 Dose: 81 mg Azathioprine (Azathioprine 50 Mg Tab) 50 mg PO QAM IQAN Stop: 03/16/25 08:59 Last Admin: 02/14/25 08:03 Dose: 50 mg Bisacodyl (Bisacodyl 5 Mg Tabec) 5 mg PO DAILY PRN PRN Reason: Constipation Stop: 03/15/25 21:32 Carvedilol (Carvedilol 12.5 Mg Tab) 12.5 mg PO BID [facility] Stop: 03/15/25 21:32 Last Admin: 02/14/25 08:03 Dose: 12.5 mg Escitalopram Oxalate (Escitalopram Oxalate 10 Mg Tab) 15 mg PO QAM [facility] Stop: 03/16/25 08:59 Last Admin: 02/14/25 08:04 Dose: 15 mg Fluticasone Furoate (Fluticasone Furoate 100mcg 14 Puffs/Inhaler) 1 puffs INH DAILY QIAN Stop: 03/16/25 08:59 Last Admin: 02/14/25 08:02 Dose: 1 puffs Gabapentin (Gabapentin 100 Mg Cap) 100 mg PO HS [facility] Stop: 03/15/25 21:32 Last Admin: 02/13/25 22:24 Dose: 100 mg Cefepime HCl (Maxipime 2000mg) 2,000 mg in 20 mls @ 5 mls/min IV Q12H QIAN; Protocol Stop: 02/19/25 06:59 Last Admin: 02/14/25 06:15 Dose: 5 mls/min Sodium Chloride (Nss) 1,000 mls @ 35 mls/hr IV .Q24H QIAN Stop: 02/14/25 22:48 Last Admin: 02/13/25 18:55 Dose: 35 mls/hr Pantoprazole Sodium (Protonix) 40 mg in 10 mls @ 5 mls/min IV BID QIAN Stop: 03/16/25 08:59 Last Admin: 02/14/25 08:04 Dose: 5 mls/min Vancomycin HCl 750 mg/ Sodium (Chloride) 265 mls @ 200 mls/hr IV Q24H [facility] Stop: 02/19/25 09:59 Magnesium Chloride (Magnesium Chloride W/Calcium 64mg Delayed Rel Tab) 64 mg PO QAM QIAN Stop: 03/16/25 08:59 Last Admin: 02/14/25 08:03 Dose: 64 mg Melatonin (Melatonin 3 Mg Tab) 3 mg PO HS PRN PRN Reason: Insomnia Stop: 03/15/25 18:46 Miscellaneous (Prevymis--Order Awaiting Action) 1 each N/A QS QIAN Stop: 03/16/25 00:00 Last Admin: 02/14/25 07:59 Dose: Not Given Miscellaneous Information (Vancomycin Consult Active) 1 each N/A UD PRN PRN Reason: Consult Stop: 03/15/25 17:11 Nystatin (Nystatin Powder 15gm Btl) 1 appln EXT BID PRN PRN Reason: skin folds Stop: 03/16/25 00:50 Last Admin: 02/14/25 07:59 Dose: 1 appln Ondansetron HCl (Ondansetron Inj 2 Mg/Ml 2 Ml Vial) 4 mg IV Q6H PRN PRN Reason: Nausea Stop: 03/15/25 18:46 Prednisone (Prednisone 10 Mg Tablet) 10 mg PO QAM [facility] Stop: 03/16/25 08:59 Last Admin: 02/14/25 08:04 Dose: 10 mg Rosuvastatin Calcium (Rosuvastatin Calcium 20 Mg Tab) 20 mg PO PM [facility] Stop: 03/16/25 20:59 Tacrolimus (Tacrolimus 0.5 Mg Cap) 1.5 mg PO BID [facility] Stop: 03/15/25 22:14 Last Admin: 02/14/25 08:00 Dose: 1.5 mg Trimethoprim/Sulfamethoxazole (Sulfamethoxazole/Trimethoprim Ds 800/160mg Tab) 0.5 tab PO BID [facility] Stop: 03/17/25 08:59 Umeclidinium/Vilanterol (Umeclidinium/Vilanterol 62.5/25mcg 7 Puffs/Inhaler) 1 puffs INH DAILY [facility] Stop: 03/16/25 08:59 Last Admin: 02/14/25 08:02 Dose: 1 puffs Vitamin D (Cholecalciferol 25 Mcg (1000 Units) Tab) 25 mcg PO QAM QIAN Stop: 03/16/25 08:59 Last Admin: 02/14/25 08:03 Dose: 25 mcg PG Care Time/CCT Total # of Minutes Spent Total Time Spent with Patient: Total time spent is greater than 50% in coordination of care (as documented) at patient's floor/unit and/or counseling patient: Coding Level of Care Code 66985 SUB INP/OBS CARE 05/12MIN Diagnoses Chest pain R07.9 Acute bronchitis with COPD J44.0; J20.9 Lung transplant recipient Z94.2 Heartburn R12 Time Spent (min) 20
[2025-02-14] MEDS: VANCOMYCIN 750 MG in SODIUM CHLORIDE 0.9% 250 ML IV SCH (11:17)
--- NOTE | 2025-02-14 11:54 | Cardiology Consultation ---
Date of Consultation February 14, 2025 Assessment & Plan (1) Chest pain: (2) Pericardial effusion: Plan 1. Chest pain: This seems unlikely to be cardiac in nature. The extended duration of her symptoms without any objective evidence of ischemia makes angina or coronary syndrome unlikely. She did have a cardiac evaluation prior to her transplant and while she is not aware of any details, I doubt if she would have gone through the transplant without some intervention should she have significant coronary disease. We can attempt to obtain some records from [facility] to see exactly what they discovered on her pretransplant evaluation. While she does have some exertional symptoms, I think would be reasonable to approach this with noninvasive testing. Previously advised to have an outpatient perfusion study, and I think this is still reasonable. If she elects to stay in the hospital this could be performed tomorrow. 2. Pericardial effusion: Noted to have a small pericardial effusion on prior evaluations. Chest CTA and echocardiogram performed during this admission did not demonstrate pericardial effusion. Symptoms not consistent with pericarditis. History of Present Illness Reason for Consultation: Chest pain Requesting Physician: Abhishek Attending Physician: Dileep Weiss DO History of Present Illness Patient is a 69-year-old woman with a history of pulmonary disease status post pulmonary transplant who presented to the hospital with symptoms of "indigestion". Patient states that for several days if not weeks she has been experiencing some symptoms of "burning" in the precordium. The symptoms appear to be present at all times. It does wax and wane in severity. She feels like it is more noticeable when she is active and improves when she rests briefly. However, she cannot recall any. In the past several days or weeks where it has disappeared entirely. It does not appear to be positional in nature. There is no pleuritic symptom. Does not appear to be worsened with eating or swallowing. Is not associated with vomiting. No radiation to the arms or to the neck or back. She was admitted with similar symptoms approximately a month ago and scheduled for an outpatient perfusion study. In general she been quite active. She likes to walk regularly. She does not report any limiting dyspnea or shortness of breath associated with her chest discomfort. She denied dizziness or lightheadedness. She is not been having symptoms of palpitations. No difficulty sleeping. She will have the symptoms until she falls asleep but when she awakens in the morning she continues to have the chest burning. No lower extremity edema. She did try some relief at home with antacids, this was not effective. Allergies Allergy/AdvReac Type Severity Reaction Status Date / Time aspirin AdvReac Intermediate GI SYMPTOMS Verified 02/13/25 20:26 Home Medications Medication Instructions Recorded Confirmed Type escitalopram oxalate 10 mg tablet 15 mg PO QAM 08/05/22 02/13/25 History (Lexapro) Portable Oxygen #1 ea 09/15/22 08/08/24 Rx pantoprazole 40 mg tablet,delayed 40 mg PO QAM #30 tabs 11/06/23 02/13/25 Rx release (Protonix) albuterol sulfate 90 mcg/actuation 2 puff inhalation Q4H PRN 02/16/24 02/13/25 Rx aerosol inhaler shortness of breath or wheezing #8.5 grams fluticasone fur. 100 mcg-umeclid 1 inh inhalation DAILY #28 ea 02/16/24 02/13/25 Rx 62.5 mcg-vilant 25 mcg inhalat.powder (Trelegy Ellipta) aspirin 81 mg tablet,delayed 81 mg PO QAM 04/06/24 02/13/25 History release calcium carbonate 600 mg PO BID 04/06/24 02/13/25 History gabapentin 100 mg capsule 100 mg PO HS 04/06/24 02/13/25 History insulin lispro 100 unit/mL 1 sliding scale dose subcut 04/06/24 02/13/25 History subcutaneous pen DIRECTED letermovir 480 mg tablet (Prevymis) 480 mg PO QAM 04/06/24 02/13/25 History magnesium chloride 64 mg 64 mg PO QAM 04/06/24 02/13/25 History (magnesium chloride) tablet,delayed release prednisone 5 mg tablet 10 mg PO QAM 04/06/24 02/13/25 History rosuvastatin 5 mg tablet 5 mg PO HS 04/06/24 02/13/25 History acyclovir 200 mg capsule 400 mg PO AMPM 08/08/24 02/13/25 History carvedilol 12.5 mg tablet 12.5 mg PO AMPM 08/08/24 02/13/25 History cholecalciferol (vitamin D3) 25 25 mcg PO QAM 08/08/24 02/13/25 History mcg (1,000 unit) tablet (Vitamin D3) tacrolimus 0.5 mg capsule, 1.5 mg PO BID 08/08/24 02/13/25 History immediate-release azathioprine 50 mg tablet 50 mg PO QAM 10/12/24 02/13/25 History amlodipine 5 mg tablet 5 mg PO QAM 10/25/24 02/13/25 History bisacodyl 5 mg tablet,delayed 5 mg PO DAILY PRN Constipation 10/25/24 02/13/25 History release (Dulcolax (bisacodyl)) sulfamethoxazole 800 0.5 tab PO BID 01/10/25 02/13/25 History mg-trimethoprim 160 mg tablet Patient History Medical History History of tobacco use Sleep apnea, obstructive CPAP History of peptic ulcer disease Family history of paroxysmal atrial tachycardia History of COVID-19 (~2021) x3 sob, cough, fatigue; resolved History of recent pneumonia (~09/2022) Surgical History History of lung transplant Hx of cardiac catheterization (~2022) Had in [place] as part of work up for [facility] to get on Lung Transplant list, no stents Hx of colonoscopy with polypectomy Hx of bilateral cataract extraction History of partial hysterectomy History of carpal tunnel surgery of right wrist History of broken collarbone sx to repair History of tooth extraction all teeth H/O partial thyroidectomy (~1989) d/t hemorrhaging?--unknown cause, no meds Family History Mother , from ovarian cancer Cancer Ovarian Sister Cancer Ovarian Father COPD (chronic obstructive pulmonary disease) Other No family history of adverse response to anesthesia Social History Smoking Status: Former smoker Tobacco Type: Cigarettes Age Started Using Tobacco: 17; Age Quit Using Tobacco: 64; packs per day: 1; Cigarettes Per Day: Less than a packet; Second Hand Exposure: Yes; Do You Dip or Chew Tobacco: No; Hx Alcohol Use: No Hx Substance Use: No Preferred Language: Wolof 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 Ability: Effective Yacht Rigger 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 Beliefs That Will Affect Care: None marital status: Current Living Situation: Family Current Living Situation Comment: in one story home with daughter Virgen Feels Safe at Home: Yes Assistive Devices: Denture - Upper, Denture - Lower and Glasses Review of Systems Review of Systems: Per HPI. No recent fevers or chills. Some coughing, but this appears to be improved recently. Physical Exam Physical Exam: She is alert and oriented x3. Mood affect appear normal. She answered all questions appropriately. HEENT: Sclerae are anicteric. Pupils are equal and reactive to light and accommodation. Extraocular movements were intact. Neuro: Cranial nerves intact Neck: Examination of the submandibular region did not reveal any significant lymphadenopathy. Carotids are palpable bilaterally and free of bruits on auscultation. There was no evidence of jugular venous distention. The thyroid was not enlarged. Lungs: Lungs are clear to auscultation bilaterally. There are no rales wheezes or rhonchi. She has normal respiratory effort without use of accessory muscles. There is normal pulmonary excursion. Cardiac: The rhythm was regular. S1 and S2 were normal. There are no murmurs on examination. The PMI was not markedly displaced on palpation. Abdomen: The abdomen was soft and nontender. Extremities: Patient has bilateral radial pulses that are equal in intensity. There is no evidence cyanosis or clubbing. There was no evidence of significant peripheral edema bilaterally. Skin: There are no rashes noted on examination today. Results & Data Vital Signs (Past 12 Hours) Vital Signs Temp Pulse Pulse Resp BP Pulse Ox O2 Del Method 02/14/25 08:08 36.3 C L 67 20 187/84 H 90 Room Air 02/14/25 07:15 65 16 95 Room Air 02/14/25 07:00 69 02/14/25 06:19 94 Room Air 02/14/25 03:02 36.5 C 65 18 139/71 94 Room Air 02/14/25 01:31 66 16 97 Nasal Cannula 02/13/25 23:53 88 L Nasal Cannula O2 Flow Rate 02/14/25 08:08 02/14/25 07:15 02/14/25 07:00 02/14/25 06:19 02/14/25 03:02 02/14/25 01:31 1 02/13/25 23:53 1 Laboratory Results Abnormal Lab Results 02/13/25 02/13/25 02/13/25 15:06 16:29 17:44 WBC 7.90 RBC 3.55 L Hgb 11.5 L Hct 35.4 L MCV 99.7 MCH 32.4 MCHC 32.5 RDW Std Deviation 49.6 H RDW Coeff of Audrey 13.7 Plt Count 265 MPV 9.2 L Immature Gran % (Auto) 0.4 Neut % (Auto) 72.0 Lymph % (Auto) 16.8 Piute % (Auto) 7.1 Eos % (Auto) 3.3 Baso % (Auto) 0.4 Neut # (Auto) 5.69 Lymph # (Auto) 1.33 Piute # (Auto) 0.56 Eos # (Auto) 0.26 Baso # (Auto) 0.03 Immature Gran # (Auto) 0.03 PT 9.5 INR 0.9 APTT 21 PTT Ratio 0.8 Sodium 142 Potassium 4.2 Chloride 105 Carbon Dioxide 29 Anion Gap 8 BUN 28 H Creatinine 1.42 H Est Cr Clr Drug Dosing 30.5 eGFR 39.79 BUN/Creatinine Ratio 19.7 Glucose 138 H Calcium 8.4 L Total Bilirubin 0.5 AST 11 L ALT 6 L Alkaline Phosphatase 50 Troponin I High Sens 8.0 Total Protein 5.9 L Albumin 3.2 L Globulin 2.7 Albumin/Globulin Ratio 1.2 Nasal Screen MRSA (PCR) Negative Adenovirus (PCR) Not Detected B. pertussis DNA (PCR) Not Detected B.parapertussis DNA PCR Not Detected C. pneumoniae DNA (PCR) Not Detected Coronavirus OC43 (PCR) Not Detected Coronavirus HKU1 (PCR) Not Detected Coronavirus 229E (PCR) Not Detected SARS-CoV-2 (PCR) Not Detected Coronavirus NL63 (PCR) Not Detected Human Metapneumovir PCR Not Detected Influenza Type A (PCR) Not Detected Influenza Type B (PCR) Not Detected M. pneumoniae (PCR) Not Detected Parainfluenza 1 (PCR) Not Detected Parainfluenza 2 (PCR) Not Detected Parainfluenza 3 (PCR) Not Detected Parainfluenza 4 (PCR) Not Detected RSV (PCR) Not Detected Entero/Rhino (PCR) Not Detected 02/13/25 02/14/25 21:49 07:44 WBC 6.38 RBC 3.19 L Hgb 10.2 L Hct 31.4 L MCV 98.4 MCH 32.0 MCHC 32.5 RDW Std Deviation 48.6 H RDW Coeff of Audrey 13.6 Plt Count 240 MPV 9.5 Immature Gran % (Auto) 0.5 Neut % (Auto) 70.5 Lymph % (Auto) 16.6 Piute % (Auto) 8.6 Eos % (Auto) 3.3 Baso % (Auto) 0.5 Neut # (Auto) 4.50 Lymph # (Auto) 1.06 L Pi[place] # (Auto) 0.55 Eos # (Auto) 0.21 Baso # (Auto) 0.03 Immature Gran # (Auto) 0.03 PT INR APTT PTT Ratio Sodium 140 Potassium 4.7 Chloride 108 H Carbon Dioxide 26 Anion Gap 6 BUN 26 H Creatinine 1.40 H Est Cr Clr Drug Dosing 30.9 eGFR 40.47 BUN/Creatinine Ratio 18.6 Glucose 68 L Calcium 8.1 L Total Bilirubin 0.4 AST 9 L ALT 5 L Alkaline Phosphatase 42 Troponin I High Sens 6.4 5.7 Total Protein 5.2 L Albumin 2.8 L Globulin 2.4 L Albumin/Globulin Ratio 1.2 Nasal Screen MRSA (PCR) Adenovirus (PCR) B. pertussis DNA (PCR) B.parapertussis DNA PCR C. pneumoniae DNA (PCR) Coronavirus OC43 (PCR) Coronavirus HKU1 (PCR) Coronavirus 229E (PCR) SARS-CoV-2 (PCR) Coronavirus NL63 (PCR) Human Metapneumovir PCR Influenza Type A (PCR) Influenza Type B (PCR) M. pneumoniae (PCR) Parainfluenza 1 (PCR) Parainfluenza 2 (PCR) Parainfluenza 3 (PCR) Parainfluenza 4 (PCR) RSV (PCR) Entero/Rhino (PCR) Diagnostic Findings Echocardiogram performed today revealed preserved LV systolic function with normal wall motion. Normal right ventricular size and function. No pericardial effusion. PG Care Time/CCT Total # of Minutes Spent Total Time Spent with Patient: Total time spent is greater than 50% in coordination of care (as documented) at patient's floor/unit and/or counseling patient: Coding Level of Care Code 05452 INT INP/OBS CARE 3/75MIN Diagnoses Chest pain R07.9 Pericardial effusion I31.39
--- NOTE | 2025-02-14 14:23 | Pharmacy Report ---
Pharmacy PK ABX Note - Date of Service February 14, 2025 - Assessment and Plan Assessment 69 year old F started on vancomycin/cefepime for possible pneumonia. PMHx significant for lung transplant on immunosuppressant therapy. Blood cultures pending. Plan Vancomycin * Loading dose: 1250 mg IV x 1 * Maintenance dose: 750 mg IV every 24 hours * Regimen is predicted to achieve target AUC/DORYS of 400-600 mg/L.hr * Plan to order random vancomycin level in AM to assess dosing Pharmacy will continue to follow and will adjust dose/frequency as necessary. Thank you. Pharmacy has transitioned to AUC monitoring for vancomycin. AUC/DORYS is the preferred PK/PD target and is associated with decreased risk of nephrotoxicity compared to traditional trough targets.
[2025-02-14] MEDS: ROSUVASTATIN CALCIUM 20 MG TAB PO SCH (20:51)
[2025-02-15 06:53] LABS: Alanine Aminotransferase 5.0 U/L (7-52); Albumin Globulin Ratio 1.5 (0.9-2); Albumin Level 3.2 gm/dl (3.4-5.0); Alkaline Phosphatase 41.0 U/L (34-104); Anion Gap 7.0 (3-11); Bilirubin,Total 0.4 mg/dl (0.2-1.0); Blood Urea Nitrogen 29.0 mg/dl (6-23); Calcium 8.1 mg/dl (8.6-10.3); Carbon Dioxide 25.0 mmol/L (21-32); Chloride 109.0 mmol/L (98-107); Creatinine Clr Calc Pharmacy 25.6 ml/min; Globulin 2.1 gm/dl (2.5-4.0); Glucose 121.0 mg/dl (70-99(Fasting)); Potassium 4.3 mmol/L (3.5-5.1); Sodium 141.0 mmol/L (136-145); Total Protein 5.3 gm/dl (6.0-8.3)
[2025-02-15] MEDS: SULFAMETHOXAZOLE/TRIMETHOPRIM DS 800/160MG TAB PO SCH (08:46)
--- NOTE | 2025-02-15 11:39 | Pharmacy Report ---
Pharmacy PK ABX Note - Date of Service February 15, 2025 - Assessment and Plan Assessment 02/15: * Random vancomycin level was ~11 mcg/ml - Scr trending upward, estimated t1/2 >24 hours therefore will dose based upon levels * Discussed with provider and plan to continue current abx regimen pending improvement in symptoms. Blood cultures and MRSA nasal swab negative. 02/14: * 69 year old F started on vancomycin/cefepime for possible pneumonia. PMHx significant for lung transplant on immunosuppressant therapy. Blood cultures pending. Plan Vancomycin * Vancomycin 750 mg x 1 today * Will order a random level tomorrow AM to assist with further dosing Pharmacy will continue to follow and will adjust dose/frequency as necessary. Thank you. Pharmacy has transitioned to AUC monitoring for vancomycin. AUC/DORYS is the preferred PK/PD target and is associated with decreased risk of nephrotoxicity compared to traditional trough targets.
[2025-02-15] MEDS: REGADENOSON 0.4 MG/5 ML SYR IV ONE (12:11)
[2025-02-15] MEDS: SODIUM CHLORIDE 0.9% 500 ML IV ONE (12:13)
[2025-02-15 12:19] VITALS: RESP 16
--- NOTE | 2025-02-15 13:17 | Nephrology Consultation ---
Date of Consultation February 15, 2025 Assessment & Plan (1) DUNG (acute kidney injury): (2) Stage 3b chronic kidney disease: (3) Lung transplant status, bilateral: (4) Hypoxia: (5) Chest pain: (6) Anemia: Plan 69 year old female with PMH significant for stage 3A/B CKD, b/l cr 1.3 to 1.4 mg/dl, DUNG, HTN, COPD s/p left lung transplant ( 12/09/23) on Tacrolimus 1.5 bid, Imuran 50 mg/d, admitted with admitted with CP, COPD exacerbation. Admission lab was notable for creatinine 1.4 mg/dl, which is close to her baseline since March 2024 and has been having repeated episodes of acute kidney injury since then. Lab this morning showed slight worsening of kidney function, creatinine 1.7 mg/dl, electrolyte including potassium was normal. Prior Urinalysis with no proteinuria hematuria or pyuria. Renal ultrasound this morning was unremarkable, previous renal ultrasound in September 2024 during hospitalization showed Rt kidney 10 cm and Left kidney 9 cm Lab this morning was notable for DUNG, cr 1.7 mg/dl, ? hemodynamically mediated, NPO, episodes of diarrhea. USG unremarkable. Reports overall feeling much better, SOB, CP resolved. BP elevated. Slight drop in HB with chronic anemia and iron study in October showing iron deficiency. --OK to keep off of Bactrim, she has not been taking for the last 2 months, most likely it was stopped in November, 12 months after the lung transplant --continue home dose of Tacrolimus, Imuran --encouraged to increased po intake, specially with diarrhea --if BP remains elevated, recommend increasing Amlodipine but Tacrolimus trough will need to be monitored for any need for dose reduction. --check CBC, Renal panel, iron study in am. Thank you for allowing me to participate in your patients care. It was a pleasure to seeSandra. History of Present Illness Reason for Consultation: DUNG, IS, Lung transplant Attending Physician: Dileep Weiss DO History of Present Illness Ms. Masha Mcneil is a 69 year old female with PMH significant for stage 3A CKD, DUNG, HTN, COPD s/p left lung transplant admitted with CP, COPD exacerbation and developed DUNG while admitted. Nephrology consult requested fro management of above. EMR records were reviewed in detail during visit. Masha presented to the ER on 02/13/2025 with chest pain for 5 days associated with burning sensation. She also has been having some upper respiratory symptoms and noted hypoxia at home. On admission her oxygen saturation was 88% on room air which now improved. Chest x-ray was unremarkable, CTA was negative for PE and noted to have trace pleural effusion and emphysematous changes. EKG with no acute ST-T changes, troponin was unremarkable. She was admitted to hospital in December with shortness of breath and chest pain when 2D echo was normal with normal EF and no wall motion abnormality. No fever or chills. Lab was negative for leukocytosis. Admission lab was notable for creatinine 1.4 mg/dl, which is close to her baseline since March 2024 and has been having repeated episodes of acute kidney injury since then. Lab this morning showed slight worsening of kidney function, creatinine 1.7 mg/dl, electrolyte including potassium was normal. Prior Urinalysis with no proteinuria hematuria or pyuria. Renal ultrasound this morning was unremarkable, previous renal ultrasound in September 2024 during hospitalization showed Rt kidney 10 cm and Left kidney 9 cm. BP has been elevated since admission. Started on cefepime and vancomycin empirically considering immunosuppressed state with double lung transplant and risk for infection. Also started on high-dose prednisone. Long history of smoking, quit about 4 years ago. HTN for years, blood pressure has been slightly elevated, on Amlodipine 5 mg and Carvedilol. h/o left Lung Tx on 12/08/24 for advanced COPD, was on Tacrolimus 1.5 mg q12h, Imuran 50 mg/d and Prednisone 10 mg daily, off of CellCept due to julienne tropenia. On Bactrim DS half tab twice daily, Acyclovir. She however stopped taking tacrolimus about 2 months ago ( she thought she does not need it anymore) and just started back on 02/11/25. She has not been taking Bactrim, unclear whether it was discontinued by transplant team 1 year after transplant or she stopped taking it. Reports overall feeling a lot better, SOB and CP completely resolved. Reports some diarrhea this morning, no N/V. Reports having headache. Allergies Allergy/AdvReac Type Severity Reaction Status Date / Time aspirin AdvReac Intermediate GI SYMPTOMS Verified 02/13/25 20:26 Home Medications Medication Instructions Recorded Confirmed Type escitalopram oxalate 10 mg tablet 15 mg PO QAM 08/05/22 02/13/25 History (Lexapro) Portable Oxygen #1 ea 09/15/22 08/08/24 Rx pantoprazole 40 mg tablet,delayed 40 mg PO QAM #30 tabs 11/06/23 02/13/25 Rx release (Protonix) albuterol sulfate 90 mcg/actuation 2 puff inhalation Q4H PRN 02/16/24 02/13/25 Rx aerosol inhaler shortness of breath or wheezing #8.5 grams fluticasone fur. 100 mcg-umeclid 1 inh inhalation DAILY #28 ea 02/16/24 02/13/25 Rx 62.5 mcg-vilant 25 mcg inhalat.powder (Trelegy Ellipta) aspirin 81 mg tablet,delayed 81 mg PO QAM 04/06/24 02/13/25 History release calcium carbonate 600 mg PO BID 04/06/24 02/13/25 History gabapentin 100 mg capsule 100 mg PO HS 04/06/24 02/13/25 History insulin lispro 100 unit/mL 1 sliding scale dose subcut 04/06/24 02/13/25 History subcutaneous pen DIRECTED letermovir 480 mg tablet (Prevymis) 480 mg PO QAM 04/06/24 02/13/25 History magnesium chloride 64 mg 64 mg PO QAM 04/06/24 02/13/25 History (magnesium chloride) tablet,delayed release prednisone 5 mg tablet 10 mg PO QAM 04/06/24 02/13/25 History rosuvastatin 5 mg tablet 5 mg PO HS 04/06/24 02/13/25 History acyclovir 200 mg capsule 400 mg PO AMPM 08/08/24 02/13/25 History carvedilol 12.5 mg tablet 12.5 mg PO AMPM 08/08/24 02/13/25 History cholecalciferol (vitamin D3) 25 25 mcg PO QAM 08/08/24 02/13/25 History mcg (1,000 unit) tablet (Vitamin D3) tacrolimus 0.5 mg capsule, 1.5 mg PO BID 08/08/24 02/13/25 History immediate-release azathioprine 50 mg tablet 50 mg PO QAM 10/12/24 02/13/25 History amlodipine 5 mg tablet 5 mg PO QAM 10/25/24 02/13/25 History bisacodyl 5 mg tablet,delayed 5 mg PO DAILY PRN Constipation 10/25/24 02/13/25 History release (Dulcolax (bisacodyl)) sulfamethoxazole 800 0.5 tab PO BID 01/10/25 02/13/25 History mg-trimethoprim 160 mg tablet Patient History Medical History History of tobacco use Sleep apnea, obstructive CPAP History of peptic ulcer disease Family history of paroxysmal atrial tachycardia History of COVID-19 (~2021) x3 sob, cough, fatigue; resolved History of recent pneumonia (~09/2022) Surgical History History of lung transplant Hx of cardiac catheterization (~2022) Had in [place] as part of work up for [facility] to get on Lung Transplant list, no stents Hx of colonoscopy with polypectomy Hx of bilateral cataract extraction History of partial hysterectomy History of carpal tunnel surgery of right wrist History of broken collarbone sx to repair History of tooth extraction all teeth H/O partial thyroidectomy (~1989) d/t hemorrhaging?--unknown cause, no meds Family History Mother , from ovarian cancer Cancer Ovarian Sister Cancer Ovarian Father COPD (chronic obstructive pulmonary disease) Other No family history of adverse response to anesthesia Social History Smoking Status: Former smoker Tobacco Type: Cigarettes Age Started Using Tobacco: 17; Age Quit Using Tobacco: 64; packs per day: 1; Cigarettes Per Day: Less than a packet; Second Hand Exposure: Yes; Do You Dip or Chew Tobacco: No; Hx Alcohol Use: No Hx Substance Use: No Preferred Language: Upper Sorbian 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 Ability: Effective Visual Educator 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 Beliefs That Will Affect Care: None marital status: Current Living Situation: Family Current Living Situation Comment: in one story home with daughter Virgen Feels Safe at Home: Yes Assistive Devices: Oxygen - at Night Review of Systems Review of Systems: Detailed review of system was done, pertinent positives and negatives are mentioned above. Physical Exam Constitutional: WD/WN, vitals as above no acute distress Eyes: + anicteric sclerae Neck: normal visual inspection Respiratory: no respiratory distress Auscultation: + diminished lung sounds; no crackles Gastrointestinal (Abdomen): Inspection/Auscultation: abdomen normal to in spection Musculoskeletal: Extremities: extremities normal to inspection Skin: no rashes, warm and dry Neurologic: no focal motor deficits Psychiatric: Orientation: alert and oriented x 3 Affect: euthymic affect Results & Data Vital Signs (Past 12 Hours) Vital Signs Temp Pulse Pulse Resp BP Pulse Ox O2 Del Method 02/15/25 12:46 69 02/15/25 12:19 36.8 C 69 16 162/77 H 95 Room Air 02/15/25 08:30 Room Air 02/15/25 08:10 36.5 C 66 18 128/80 93 Room Air 02/15/25 03:44 36.6 C 70 18 164/78 H 92 Room Air PG Care Time/CCT Total # of Minutes Spent Total Time Spent with Patient: Total time spent is greater than 50% in coordination of care (as documented) at patient's floor/unit and/or counseling patient: Coding Level of Care Code 44621 INT INP/OBS CARE 3/75MIN Diagnoses DUNG (acute kidney injury) N17.9 Stage 3b chronic kidney disease N18.32 Lung transplant status, bilateral Z94.2 Hypoxia R09.02 Chest pain R07.9 Anemia D64.9
--- NOTE | 2025-02-15 13:38 | Ultrasound Report ---
RENAL ULTRASOUND HISTORY: Acute kidney injury DUNG, r/o retention, stones, COMPARISON: Renal ultrasound 10/12/2024 FINDINGS: Right kidney: 11.0 cm. No hydronephrosis. Normal corticomedullary differentiation and cortical thickn ess. Left kidney: 9.3 cm. No hydronephrosis. Normal corticomedullary differentiation and cortical thicknes s. Bladder: No bladder wall thickening. The bilateral ureteral jets were identified. IMPRESSION: Unremarkable renal ultrasound. ACT 112: Negative or not required by law. Electronically signed by: Landon Lechuga M.D. 02/15/2025 1:37 PM
[2025-02-15 15:48] VITALS: BP 172/80; TEMP 97.9; O2SAT 94
--- NOTE | 2025-02-15 17:58 | Myocardial Perfusion Study ---
Date of Service February 15, 2025 Myocardial Perfusion Study [facility] Myocardial Perfusion Study Report LEXISCAN STRESS MYOCARDIAL PERFUSION IMAGING STUDY Indication: Shortness of breath, chest tightness. Brief description: This was a 2-day protocol Rest portion-at 1638 on 02/14/2025 the patient was injected with 20.2 mCi Tc 99m Cardiolite IV. 1 hour following injection, myocardial perfusion imaging was performed in multiple projections. Stress portion-baseline heart rate, blood pressure, and EKG were obtained. The same parameters were monitored continuously for 3 minutes infusion and 3 minutes recovery. They were intermittently recorded. At 10:50 AM on 02/15/2025 the patient was infused with 0.4 mg Lexiscan IV. This was followed by immediate injection of 21.8 mCi Tc 99m Cardiolite IV. 30 minutes following injection, myocardial perfusion imaging was performed in multiple projections similar to those utilized for the rest portion. Patient reported shortness of breath and chest heaviness with Lexiscan infusion. Hemodynamic and electrocardiographic findings: 1. Resting heart rate was 63 bpm and annelise to a maximum of 97 bpm with Lexiscan infusion. 2. Resting blood pressure was hypertensive at 174/80 mmHg and dropped to a minimum of 138/71 mmHg with Lexiscan infusion. 3. Resting EKG demonstrated normal sinus rhythm. There were no diagnostic ischemic ST segment or T wave changes with Lexiscan infusion. No Lexiscan induced arrhythmias. Myocardial perfusion imaging findings: 1. Raw data analysis demonstrates mild soft tissue attenuation. This is a good quality study for interpretation. 2. Gated myocardial imaging demonstrates normal size LV, normal wall motion, and normal calculated EF of 71%. 3. There are no significant rest or stress associated MPI defects. No evidence of myocardial ischemia or infarction. 4. This is a normal appearing Lexiscan stress test. Low risk of ischemia. No prior study for comparison. [facility] Myocardial perfusion code Indication for Procedure (1) Lung transplant status, bilateral: (2) Chest pain: Procedure Code Procedure 1: Myocardial Perfusion Codes: 83633 Cardiovascular Stress Test, multiple Procedure 2: Myocardial Perfusion Codes: 80276 Cardiovascular Stress Test, supervision only Procedure 3: Myocardial Perfusion Codes: 18763 Cardiovascular Stress Test, interpretation and report
--- NOTE | 2025-02-15 18:06 | Hospitalist Progress Note ---
Date of Service February 15, 2025 Assessment & Plan (1) Chest pain: Plan: Masha Mcneil is a 69 yo woman with PMH of lung transplant (november 2023 at [facility]), CKD, diabetes, mood disorder. she's following with Dr. Barry Wise pulmonary at [facility], she's can now walk several miles per day. in october 2024, she was at [facility] for PNA and transfer to [facility]. in dec 2024, she was having chest pain episode, but opt for outpatient ischemia eval but did not has appointment for [employer] one week prior to admission, she been having chest pain, heartburn sensation, worse with walking. no nausea no vomiting. 4-5 days ago, she started having shortness of breath, congestion, and came to our ED on 02/13,CTA negative for PE, however, she was having acute copd exacerbation, bronchitis. 1. chest pain episode 2. heartburn 3. acute bronchitis 4. lung transplant (november 2023) 5, CKD 6. mood disorder 1. chest pain episode stress test negative f/u with Dr. Pack outpatient been having chest discomfort and heartburn sensation crestor 20mg, metoprolol. aspirin cardiology notified, 2. heartburn, either atypical angina versus true protonix BID, carafate still has heartburn, but improve ffrom yesterday 3. acute bronchitis solumedrol, cefepime, vancomycin, duoneb mucinex. flutter valve 4. lung transplant, received in november 2023 at [facility] pulmonary stated the goal tacrolimus level is between 6-8 she's on prednisone 10mg am, tacrolimus 1.5 BID, azathioprine 50mg am immunosuppression, bactrim 800-160mg 0.5 BID acyclovir 400 PO BID prevymis 480mg morning trelegy daily chronic kidney disease per [facility] specialist her creatinine function range between 1.4--1.9 5. GERd, protonix carafate added 6. mood disorder, lexapro 15mg 7. hypertension, amlodipine 5mg; coreg 12.5 BID. 8. neuropathy; gabapentin 100mg 9. diabetes, check glucose every 6 hours she's stated she's came off insulin a few months ago (2) Acute bronchitis with COPD: (3) Lung transplant recipient: (4) Heartburn: Admission and Anticipated Discharge Date Admission Date: February 13, 2025 Subjective her stress test negative her shortness of breath improved I spoke with cross covering lung doctor at [facility], Dr. savage stated patient tacrolimus level is between 6-8 for her baseline creatinine function it between 1.4--1.9 Physical Exam Physical Exam: VITALS: Reviewed. WEIGHT/BMI reviewed. GEN: Healthy appearing, well-developed, NAD. PSYCH: Good Judgment. AOx3. Normal memory, mood, and affect. HEENT -Head: NC/AT; -Eyes: PERRL, EOMI. No discharge or redn ess; NECK: Supple, with no masses. CV: RRR, no m/r/g. LUNGS: CTAB, no w/r/c. no wheezing. on room air ABD: Soft, NT/ND, NBS, no masses or organomegaly. : N/A SKIN: Warm, well perfused. No skin rashes or abnormal lesions. MSK: No deformities, Normal gait. EXT: No clubbing, cyanosis, or edema. NEURO: AAOx3 Results & Data Results & Data Vital Signs (Past 12 Hours) Vital Signs Temp Pulse Pulse Resp BP Pulse Ox O2 Del Method 02/15/25 15:46 36.6 C 67 16 172/80 H 94 Room Air 02/15/25 13:00 71 02/15/25 12:46 69 02/15/25 12:19 36.8 C 69 16 162/77 H 95 Room Air 02/15/25 08:30 Room Air 02/15/25 08:10 36.5 C 66 18 128/80 93 Room Air PG Care Time/CCT Total # of Minutes Spent Total Time Spent with Patient: Total time spent is greater than 50% in coordination of care (as documented) at patient's floor/unit and/or counseling patient: Coding Level of Care Code 45600 SUB INP/OBS CARE /25MIN Diagnoses Chest pain R07.9 Acute bronchitis with COPD J44.0; J20.9 Lung transplant recipient Z94.2 Heartburn R12 Time Spent (min) 20
[2025-02-15] MEDS: CEFEPIME 1000MG 1,000 MG/10 ML SYR IV SCH (18:15)
[2025-02-15 18:30] VITALS: PULSE 67
--- NOTE | 2025-02-15 18:34 | Discharge Summary ---
Discharge Summary Date of Service February 15, 2025 Principal Dx & Hospital Course #1 = Principal Diagnosis (1) Chest pain: Hospital course Masha Mcneil is 69 yo woman with hx of lung transplant (november 2023 at [place]), CKD (creatinine between 1.5--1.8), heartburn, mood disorder her lung specialist is Dr. 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 her heartburn and chest discomfort resolved on carafate PPI her breathing is stable we increase her protonix to 40mg BID; added carafate BID, we discussed that she need to take carafate 2-3 hours after her other oral medicine for her codp exacerbation, she was prescribed prednisone for 4 days, augmentin ID and doxycycline she was having elevated creatinine function, however, when we spoke with [facility] specialist, her baseline creatinine is betweeen 1.6--1.9 she has not been taking her bactrim for several weeks. she was advised to drink 8-10 glasses of water and then recheck her creatinine function on Tuesday (Feb 18, 2025) Masha Mcneil is a 69 yo woman with PMH of lung transplant (november 2023 at [facility]), CKD, diabetes, mood disorder. she's following with Dr. Barry Wise pulmonary at [facility], she's can now walk several miles per day. in october 2024, she was at [facility] for PNA and transfer to [facility]. in dec 2024, she was having chest pain episode, but opt for outpatient ischemia eval but did not has appointment for retail pharmacy technician one week prior to admission, she been having chest pain, heartburn sensation, worse with walking. no nausea no vomiting. 4-5 days ago, she started having shortness of breath, congestion, and came to our ED on 02/13,CTA negative for PE, however, she was having acute copd exacerbation, bronchitis. 1. chest pain episode 2. heartburn 3. acute bronchitis 4. lung transplant (november 2023) 5, CKD 6. mood disorder 1. chest pain episode stress test negative f/u with Dr. Pack outpatient been having chest discomfort and heartburn sensation crestor 20mg, metoprolol. aspirin cardiology notified, 2. heartburn, either atypical angina versus true protonix BID, carafate still has heartburn, but improve ffrom yesterday 3. acute bronchitis solumedrol, cefepime, vancomycin, duoneb mucinex. flutter valve 4. lung transplant, received in november 2023 at [facility] pulmonary stated the goal tacrolimus level is between 6-8 she's on prednisone 10mg am, tacrolimus 1.5 BID, azathioprine 50mg am immunosuppression, bactrim 800-160mg 0.5 BID acyclovir 400 PO BID prevymis 480mg morning trelegy daily chronic kidney disease per [facility] specialist her creatinine function range between 1.4--1.9 5. GERd, protonix carafate added 6. mood disorder, lexapro 15mg 7. hypertension, amlodipine 5mg; coreg 12.5 BID. 8. neuropathy; gabapentin 100mg 9. diabetes, check glucose every 6 hours she's stated she's came off insulin a few months ago (2) Acute bronchitis with COPD: (3) Lung transplant recipient: (4) Heartburn: Admission HPI Per Admitting Provider Masha Mcneil is a 69 yo woman with PMH of COPD (s/p lung transplant november 2023 at [place]), CKD stage 4, diabetes, copd, neuropathy. anxiety disorder she's was Hospitalized in dec 2024 for chest pain episode, but did not establish with retail pharmacy technician. since age 17, smoke 1 ppd and quitted after lung transplant after her lung transplant can walk several miles per day since one weeks ago, she's been having heartburn sensation with walking. also been having midsternal chest pain. she's stated the pain and heartburn started when she's walk around. in addition, she' been having 4-5 days of runny nose, shortness of breath, coughing spell,, she's was has low temp of 36.4. she's presented to our ED on 02/13/2025 for evaluation, CTA negative for PE, but found focal opacity in the left lower lobe, right lower lobe nodules. also found coronary atherosclerosis she will be admitted to medicine services for acute copd exacerbation, brochitis and concern for atypical angina she was started on cefepime and vancomycin. Discharge Exam General: well appearing; HEENT:At/NC heart; Normal s1; s2; RRR lung: CTA b/l; no wheezing no rales abdomen: soft to touch; non-tender to palpation MSK: no edema neuro: AAOx3 psych: calm; cooperative Discharge Plan Discharge Items Patient Disposition: Home - Self-Care Reason For Visit: ANGINA; HEARTBURN, LUNG TRANSPLANT, DUNG Discharge Diagnosis: chest pain episode DUNG acute bronchitis GERD lung transplant Condition on Discharge: Fair Activity: Per Instructions section Lifting: Gradually increase as tolerated Non-emergency contact: Primary Care Provider and [employer] Binding Folder Call non-emergency contact if: you have any medication questions, your symptoms worsen and you have a fever Follow-up/Referrals: Girselda Inman MD [Physician] - Arthur Pack MD [Physician] - Maya Weller, OTR [Primary Care Provider] - Diet: Carb Consistent or DM2 and Low Sodium (2gm) Diet Comment: avoid spicy food; caffeine, Addtl Attending Provider Instructions: you will take carafate (heartburn) medicine 2 hours AFTER your normal medicine Pending Studies at Discharge: Yes Studies:: repeat kidney function (bmp), repeat CBC Stand-Alone Forms: [facility], Smoking Cessation Medications and DC Order Prescriptions: New pantoprazole [Protonix] 40 mg tablet,delayed release (DR/EC) 40 mg PO BID 14 Days Qty: 28 0RF sucralfate [Carafate] 1 gram tablet 1 g PO BID 28 Days Qty: 56 0RF amoxicillin-pot clavulanate 875-125 mg tablet 1 tab PO Q12H 10 Days Qty: 20 0RF doxycycline hyclate 100 mg tablet 100 mg PO BID 10 Days Qty: 20 0RF prednisone 50 mg tablet 50 mg PO DAILY 7 Days Qty: 7 0RF Continued (DME) Portable Oxygen Misc See Rx Instructions .Route Qty: 1 0RF Rx Instructions: portable oxygen concentrator- 3LPM on exertion via n/c. SILVIA:99 Trelegy Ellipta 100-62.5-25 mcg blister with device 1 inh inhalation DAILY Qty: 28 7RF albuterol sulfate 90 mcg/actuation HFA aerosol inhaler 2 puff inhalation Q4H PRN (Reason: shortness of breath or wheezing) Qty: 8.5 3RF Rx Instructions: Generic for ProAir- Patient can not use Ventolin escitalopram oxalate [Lexapro] 10 mg tablet 15 mg PO QAM bisacodyl [Dulcolax (bisacodyl)] 5 mg Tablet,Delayed Release (Dr/Ec) 5 mg PO DAILY PRN (Reason: Constipation) amlodipine 5 mg tablet 5 mg PO QAM prednisone 5 mg tablet 10 mg PO QAM aspirin 81 mg Tablet,Delayed Release (Dr/Ec) 81 mg PO QAM Patient Comments: PT HAS ASPIRIN LISTED ALLERGY, BUT STATES IT ONLY MAKES HER STOMACH UPSET AND SHE STILL TAKES 81MG ASPIRIN calcium carbonate 600 mg calcium (1,500 mg) Tablet 600 mg PO BID gabapentin 100 mg Capsule 100 mg PO HS insulin lispro 100 unit/mL insulin pen 1 sliding scale dose SUBCUT DIRECTED Rx Instructions: NEEDED PER GLUCOMETER READING rosuvastatin 5 mg tablet 5 mg PO HS magnesium chloride 64 mg Tablet,Delayed Release (Dr/Ec) 64 mg PO QAM Prevymis 480 mg tablet 480 mg PO QAM tacrolimus 0.5 mg Capsule 1.5 mg PO BID Rx Instructions: TOTAL DOSE 1.5 MG--TAKES WITH 1 MG CAP. acyclovir 200 mg capsule 400 mg PO AMPM carvedilol 12.5 mg tablet 12.5 mg PO AMPM cholecalciferol (vitamin D3) [Vitamin D3] 25 mcg (1,000 unit) Tablet 25 mcg PO QAM azathioprine 50 mg tablet 50 mg PO QAM Held sulfamethoxazole-trimethoprim 800-160 mg tablet 0.5 tab PO BID Hold Instructions: Resume on 01/22/25. Discontinued pantoprazole [Protonix] 40 mg tablet,delayed release (DR/EC) 40 mg PO QAM Qty: 30 2RF Discharge Orders: Discharge Order (Routine); Ordered 02/15/25 Ordered By: Dileep Orellana/Other Patient Handouts: Transplant Dc Admission Data Admit Date/Time: 02/13/25 18:39 Attending Provider: Dileep Weiss Admit Provider: Dileep Weiss Primary Care Provider: Maya Weller Other Providers: Dileep Weiss; Arthur Pack; Griselda Inman Hospital Stay Data Consultations 02/13/25 18:04 ED Decision to Admit Stat 02/14/25 08:01 Consult Cardiology Routine 02/15/25 12:07 Consult Nephrology Routine Diagnostic Imagining Performed 02/13/25 16:13 CT angio chest PE protocol Stat 02/15/25 12:27 US renal/blad retro comp Stat Pending Results Patient Have Any Pending Studies at Discharge: Yes Discharge Instructions Given to Patient (Per Discharging Provider) you will take carafate (heartburn) medicine 2 hours AFTER your normal medicine Total Time Total Time Spent Total Time Spent (In Minutes): 29 Coding Level of Care Code 83966 IN/OBS DISCH 30 MIN/LESS Diagnoses Chest pain R07.9 Acute bronchitis with COPD J44.0; J20.9 Lung transplant recipient Z94.2 Heartburn R12 Time Spent (min) 25
== END 2025-02-15 19:30 | disposition home or self-care (01) | DRG 191 ==
LOC: ED 14:52 → SUATTDRO 18:39 → 2S 18:39

== ENCOUNTER 2025-04-01 12:00 | Inpatient (IN) ==
--- NOTE | 2025-04-01 12:38 | Emergency Department Note ---
Impression & Plan Acute hypoxic respiratory failure, Lung transplant recipient, Multifocal pneumonia ED Provider Note NAME: AVIVA MIMS AGE: 69 SEX: F : 1955 ARRIVES VIA: Walk-In INFORMANT: Patient ED PROVIDER(S): Roshan Hendrix DO CHIEF COMPLAINT: Shortness of breath HPI: Patient is a 69-year-old female with a past medical history of COPD with a lung transplant over a year ago on Bactrim, tacrolimus and steroids who presents with a cough, congestion, which has been going on for the past week. She mitts to gradually increased shortness of breath. Denies any belly pain. Admits to feeling tight throughout the chest. No nausea, vomiting, or diarrhea. No dysuria, urgency or frequency. No other exacerbating or remitting factors. ADDITIONAL HISTORY OBTAINED: Per HPI Chronic Medical/Social Conditions Affecting Care: Per HPI PAST MEDICAL HISTORY:See Below PAST SURGICAL HISTORY:See Below FAMILY HISTORY:See Below SOCIAL HISTORY:See Below HOME MEDICATIONS:See Below ALLERGIES:See Below VITALS:See Below PHYSICAL EXAMINATION: GENERAL: Sitting up in bed, alert, well appearing, well nourished, no distress, non-toxic EYE EXAM: normal conjunctiva. PERRL and EOM's grossly intact. OROPHARYNX: no exudate, no erythema, lips, buccal mucosa, and tongue normal and mucous membranes are moist NECK: supple, no nuchal rigidity, no adenopathy, non-tender LUNGS: Faint wheezing bilaterally. Normal chest wall mechanics HEART: no murmurs, S1 normal and S2 normal ABDOMEN: abdomen soft, non-tender, normo-active bowel sounds, no masses, no rebound or guarding. BACK: Back is symmetrical on inspection and there is no deformity, no midline tenderness, no CVA tenderness. SKIN: no rashes and no bruising UPPER EXTREMITIES: upper extremities are grossly normal. LOWER EXTREMITIES: No pitting edema. NEURO EXAM: Normal sensorium, cranial nerves II-XII grossly intact, normal speech, no gross weakness of arms, no gross weakness of legs. MEDICAL DECISION MAKING: Patient is a 69-year-old female with a bilateral lung transplant who presents ER for the above-stated complaint. Found to be hypoxic. Was placed on 2 L nasal cannula. IV was established and blood work was obtained. Labs showed no significant leukocytosis or anemia. INR unremarkable. BMP close LFTs bilirubin troponin was negative. Pro-Alonzo was normal. COVID flu and RSV was negative. Chest x-ray without infiltrate. Patient was given IV cefepime and vancomycin. Updated bedside and discussed with hospitalist for further evaluation management treatment. Consults/Care Managements Discussions: Per MDM Triage Nursing notes reviewed. Limited review of prior medical records performed Vital Signs: reviewed and remarkable for hypoxic Differential diagnosis: Differential diagnoses includes but is not limited to pneumonia, bronchitis, COPD/Asthma exacerbation, pneumothorax, pulmonary embolism, congestive heart failure, acute coronary syndrome ER treatment provided: See below Diagnostics interpreted by me include EKG and cardiac monitoring as listed below: -Cardiac Monitoring: An order was placed for continuous cardiac monitoring. The monitor shows a rate of 80 with sinus rhythm. -ECG: Sinus rhythm rate 82 Normal axis No PVCs QTc 443 -Laboratory studies:Interpreted by me as stated above in MDM and shown below. Imaging studies: Xrays: As interpreted by me: Portable AP upright 1 view of the chest shows no focal Lutrate CTs show: none Procedures:none Critical Care: I have personally spent 33 minutes of critical care time in the direct management of this patient. This includes bedside care, interpretation of diagnostic studies, and testing, discussion with consultants, patient, and family members, and other required patient management activities. This 33 minutes is in excess of all separately billable procedures. Past Med/Surg History Problem List (Updated 04/01/25 @ 17:03 by Roshan Hendrix DO) Acute hypoxic respiratory failure (Acute) Hypertension Vitamin D deficiency Stage 3b chronic kidney disease Lung transplant status, bilateral (Acute) Hypoxia (Acute) Acute exacerbation of chronic obstructive pulmonary disease (Acute) Heartburn Chest pain (Acute) Pericardial effusion Chest pressure Dyspnea on exertion (Acute) Pneumonia (Acute) B12 deficiency anemia Medication side effect (Acute) DUNG (acute kidney injury) (Acute) Acute hyperkalemia (Acute) Chronic kidney disease, stage 4 (severe) Hypocalcemia (Acute) Hypomagnesemia Anemia Multifocal pneumonia (Acute) Hypoxia (Acute) Lung transplant recipient (Acute) Prediabetes Lower back pain Paroxysmal atrial tachycardia Acid reflux Ex-smoker COPD (chronic obstructive pulmonary disease) (Acute) Dyspnea Cough Acute on chronic respiratory failure with hypoxia (Acute) Dysfunction of both eustachian tubes Acute respiratory failure with hypoxia Paroxysmal atrial tachycardia Acute dyspnea (Acute) Lung transplant candidate Sacroiliitis Multiple pulmonary nodules no biopsies, monitored Anxiety with depression Medical History History of tobacco use Sleep apnea, obstructive History of peptic ulcer disease Family history of paroxysmal atrial tachycardia History of COVID-19 (~2021) History of recent pneumonia (~09/2022) Surgical History History of lung transplant Hx of cardiac catheterization (~2022) Hx of colonoscopy with polypectomy Hx of bilateral cataract extraction History of partial hysterectomy History of carpal tunnel surgery of right wrist History of broken collarbone History of tooth extraction H/O partial thyroidectomy (~1989) Family History Mother , from ovarian cancer Cancer Ovarian Sister Cancer Ovarian Father COPD (chronic obstructive pulmonary disease) Other No family history of adverse response to anesthesia Social History Smoking Status: Never smoker Tobacco Type: Cigarettes Age Started Using Tobacco: 17; Age Quit Using Tobacco: 64; packs per day: 1; Cigarettes Per Day: Less than a packet; Second Hand Exposure: Yes; Do You Dip or Chew Tobacco: No; Hx Alcohol Use: No Hx Substance Use: No Preferred Language: Belgian 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 Ability: Effective Orthopedic Rn 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 Beliefs That Will Affect Care: None marital status: Current Living Situation: Family Current Living Situation Comment: in one story home with daughter Virgen Feels Safe at Home: Yes Assistive Devices: Oxygen - at Night Allergies Allergies Allergy/AdvReac Type Severity Reaction Status Date / Time aspirin AdvReac Intermediate GI SYMPTOMS Verified 02/27/25 13:21 Home Meds Home Medications Medication Instructions Recorded Confirmed escitalopram oxalate 10 mg tablet 15 mg PO QAM 08/05/22 02/27/25 (Lexapro) aspirin 81 mg tablet,delayed 81 mg PO QAM 04/06/24 02/27/25 release calcium carbonate 600 mg PO BID 04/06/24 02/27/25 gabapentin 100 mg capsule 100 mg PO HS 04/06/24 02/27/25 insulin lispro 100 unit/mL 1 sliding scale dose subcut 04/06/24 02/27/25 subcutaneous pen DIRECTED letermovir 480 mg tablet (Prevymis) 480 mg PO QAM 04/06/24 02/27/25 magnesium chloride 64 mg 64 mg PO QAM 04/06/24 02/27/25 (magnesium chloride) tablet,delayed release prednisone 5 mg tablet 10 mg PO QAM 04/06/24 02/27/25 rosuvastatin 5 mg tablet 5 mg PO HS 04/06/24 02/27/25 acyclovir 200 mg capsule 400 mg PO AMPM 08/08/24 02/27/25 carvedilol 12.5 mg tablet 12.5 mg PO AMPM 08/08/24 02/27/25 cholecalciferol (vitamin D3) 25 25 mcg PO QAM 08/08/24 02/27/25 mcg (1,000 unit) tablet (Vitamin D3) tacrolimus 0.5 mg capsule, 1.5 mg PO BID 08/08/24 02/27/25 immediate-release azathioprine 50 mg tablet 50 mg PO QAM 10/12/24 02/27/25 amlodipine 5 mg tablet 5 mg PO QAM 10/25/24 02/27/25 bisacodyl 5 mg tablet,delayed 5 mg PO DAILY PRN Constipation 10/25/24 02/27/25 release (Dulcolax (bisacodyl)) sulfamethoxazole 800 0.5 tab PO BID 01/10/25 02/27/25 mg-trimethoprim 160 mg tablet Previous Rx's Medication Instructions Recorded Portable Oxygen #1 ea 09/15/22 albuterol sulfate 90 mcg/actuation 2 puff inhalation Q4H PRN 02/16/24 aerosol inhaler shortness of breath or wheezing #8.5 grams fluticasone fur. 100 mcg-umeclid 1 inh inhalation DAILY #28 ea 02/16/24 62.5 mcg-vilant 25 mcg inhalat.powder (Trelegy Ellipta) Results & Data (ED) Vital Signs Vital Signs - 24 hr 04/01/25 12:00 04/01/25 12:06 04/01/25 12:10 Temperature 36.6 C Temperature Source Temporal Artery Scan Pulse Rate 103 H Pulse Rate from SpO2 Sensor Respiratory Rate 20 Respiratory Effort / Characteristics Non-Labored Spontaneous Respiratory Depth Normal Respiratory Pattern Regular Blood Pressure Blood Pressure Mean Pulse Oximetry 98 88 L 98 Oxygen Delivery Method Nasal Cannula Nasal Cannula Nasal Cannula Oxygen Flow Rate 2 3 2 Sepsis Recent Fever Within 48 Hours No Sepsis New/Unexplained Change in Mental Status No Sepsis Action Taken by Nursing No Action Required 04/01/25 12:10 04/01/25 12:35 04/01/25 12:35 Temperature Temperature Source Pulse Rate Pulse Rate from SpO2 Sensor Respiratory Rate Respiratory Effort / Characteristics Respiratory Depth Respiratory Pattern Blood Pressure 157/77 H 157/77 H Blood Pressure Mean 110 110 Pulse Oximetry 98 Oxygen Delivery Method Nasal Cannula Oxygen Flow Rate 2 Sepsis Recent Fever Within 48 Hours Sepsis New/Unexplained Change in Mental Status Sepsis Action Taken by Nursing 04/01/25 12:35 04/01/25 12:39 04/01/25 12:42 Temperature Temperature Source Pulse Rate 76 83 Pulse Rate from SpO2 Sensor 76 82 Respiratory Rate 26 H 15 Respiratory Effort / Characteristics Respiratory Depth Respiratory Pattern Blood Pressure 157/77 H Blood Pressure Mean 110 Pulse Oximetry 99 99 Oxygen Delivery Method Oxygen Flow Rate Sepsis Recent Fever Within 48 Hours Sepsis New/Unexplained Change in Mental Status Sepsis Action Taken by Nursing 04/01/25 12:45 04/01/25 12:51 04/01/25 13:00 Temperature Temperature Source Pulse Rate 82 79 Pulse Rate from SpO2 Sensor 76 Respiratory Rate 28 H Respiratory Effort / Characteristics Respiratory Depth Respiratory Pattern Blood Pressure 124/75 Blood Pressure Mean 107 Pulse Oximetry 98 Oxygen Delivery Method Oxygen Flow Rate Sepsis Recent Fever Within 48 Hours Sepsis New/Unexplained Change in Mental Status Sepsis Action Taken by Nursing 04/01/25 13:00 04/01/25 13:00 04/01/25 13:00 Temperature Temperature Source Pulse Rate Pulse Rate from SpO2 Sensor Respiratory Rate Respiratory Effort / Characteristics Respiratory Depth Respiratory Pattern Blood Pressure 124/75 124/75 124/75 Blood Pressure Mean 107 107 107 Pulse Oximetry Oxygen Delivery Method Oxygen Flow Rate Sepsis Recent Fever Within 48 Hours Sepsis New/Unexplained Change in Mental Status Sepsis Action Taken by Nursing 04/01/25 13:00 04/01/25 13:00 04/01/25 13:12 Temperature Temperature Source Pulse Rate 72 71 Pulse Rate from SpO2 Sensor 72 70 Respiratory Rate 27 H 24 Respiratory Effort / Characteristics Respiratory Depth Respiratory Pattern Blood Pressure 124/75 Blood Pressure Mean 107 Pulse Oximetry 99 99 Oxygen Delivery Method Oxygen Flow Rate Sepsis Recent Fever Within 48 Hours Sepsis New/Unexplained Change in Mental Status Sepsis Action Taken by Nursing 04/01/25 13:21 04/01/25 13:30 04/01/25 13:39 Temperature Temperature Source Pulse Rate 67 64 Pulse Rate from SpO2 Sensor 67 63 Respiratory Rate 23 24 Respiratory Effort / Characteristics Respiratory Depth Respiratory Pattern Blood Pressure 139/66 Blood Pressure Mean 94 Pulse Oximetry 100 100 Oxygen Delivery Method Oxygen Flow Rate Sepsis Recent Fever Within 48 Hours Sepsis New/Unexplained Change in Mental Status Sepsis Action Taken by Nursing 04/01/25 13:39 04/01/25 13:39 04/01/25 13:39 Temperature Temperature Source Pulse Rate Pulse Rate from SpO2 Sensor Respiratory Rate Respiratory Effort / Characteristics Respiratory Depth Respiratory Pattern Blood Pressure 139/66 139/66 139/66 Blood Pressure Mean 94 94 94 Pulse Oximetry Oxygen Delivery Method Oxygen Flow Rate Sepsis Recent Fever Within 48 Hours Sepsis New/Unexplained Change in Mental Status Sepsis Action Taken by Nursing 04/01/25 13:39 04/01/25 13:39 04/01/25 13:42 Temperature Temperature Source Pulse Rate 67 62 Pulse Rate from SpO2 Sensor 67 63 Respiratory Rate 21 23 Respiratory Effort / Characteristics Respiratory Depth Respiratory Pattern Blood Pressure 139/66 Blood Pressure Mean 94 Pulse Oximetry 99 98 Oxygen Delivery Method Oxygen Flow Rate Sepsis Recent Fever Within 48 Hours Sepsis New/Unexplained Change in Mental Status Sepsis Action Taken by Nursing 04/01/25 13:51 04/01/25 14:00 04/01/25 14:00 Temperature Temperature Source Pulse Rate 67 73 Pulse Rate from SpO2 Sensor 66 73 Respiratory Rate 26 H 26 H Respiratory Effort / Characteristics Respiratory Depth Respiratory Pattern Blood Pressure 166/84 H Blood Pressure Mean 126 Pulse Oximetry 100 96 Oxygen Delivery Method Oxygen Flow Rate Sepsis Recent Fever Within 48 Hours Sepsis New/Unexplained Change in Mental Status Sepsis Action Taken by Nursing 04/01/25 14:00 04/01/25 14:00 04/01/25 14:00 Temperature Temperature Source Pulse Rate Pulse Rate from SpO2 Sensor Respiratory Rate Respiratory Effort / Characteristics Respiratory Depth Respiratory Pattern Blood Pressure 166/84 H 166/84 H 166/84 H Blood Pressure Mean 126 126 126 Pulse Oximetry Oxygen Delivery Method Oxygen Flow Rate Sepsis Recent Fever Within 48 Hours Sepsis New/Unexplained Change in Mental Status Sepsis Action Taken by Nursing 04/01/25 14:00 04/01/25 14:12 04/01/25 14:21 Temperature Temperature Source Pulse Rate 73 77 Pulse Rate from SpO2 Sensor 73 70 Respiratory Rate 23 22 Respiratory Effort / Characteristics Respiratory Depth Respiratory Pattern Blood Pressure 166/84 H Blood Pressure Mean 126 Pulse Oximetry 95 94 Oxygen Delivery Method Oxygen Flow Rate Sepsis Recent Fever Within 48 Hours Sepsis New/Unexplained Change in Mental Status Sepsis Action Taken by Nursing 04/01/25 14:30 04/01/25 14:30 04/01/25 14:30 Temperature Temperature Source Pulse Rate 67 Pulse Rate from SpO2 Sensor 67 Respiratory Rate 22 Respiratory Effort / Characteristics Respiratory Depth Respiratory Pattern Blood Pressure 161/81 H 161/81 H Blood Pressure Mean 140 140 Pulse Oximetry 87 L Oxygen Delivery Method Oxygen Flow Rate Sepsis Recent Fever Within 48 Hours Sepsis New/Unexplained Change in Mental Status Sepsis Action Taken by Nursing 04/01/25 14:30 04/01/25 14:30 04/01/25 14:30 Temperature Temperature Source Pulse Rate Pulse Rate from SpO2 Sensor Respiratory Rate Respiratory Effort / Characteristics Respiratory Depth Respiratory Pattern Blood Pressure 161/81 H 161/81 H 161/81 H Blood Pressure Mean 140 140 140 Pulse Oximetry Oxygen Delivery Method Oxygen Flow Rate Sepsis Recent Fever Within 48 Hours Sepsis New/Unexplained Change in Mental Status Sepsis Action Taken by Nursing 04/01/25 14:42 04/01/25 14:51 04/01/25 15:00 Temperature Temperature Source Pulse Rate 72 75 Pulse Rate from SpO2 Sensor 73 76 Respiratory Rate 23 21 Respiratory Effort / Characteristics Respiratory Depth Respiratory Pattern Blood Pressure 152/91 H Blood Pressure Mean 138 Pulse Oximetry 91 90 Oxygen Delivery Method Oxygen Flow Rate Sepsis Recent Fever Within 48 Hours Sepsis New/Unexplained Change in Mental Status Sepsis Action Taken by Nursing 04/01/25 15:00 04/01/25 15:00 04/01/25 15:00 Temperature Temperature Source Pulse Rate Pulse Rate from SpO2 Sensor Respiratory Rate Respiratory Effort / Characteristics Respiratory Depth Respiratory Pattern Blood Pressure 152/91 H 152/91 H 152/91 H Blood Pressure Mean 138 138 138 Pulse Oximetry Oxygen Delivery Method Oxygen Flow Rate Sepsis Recent Fever Within 48 Hours Sepsis New/Unexplained Change in Mental Status Sepsis Action Taken by Nursing 04/01/25 15:00 04/01/25 15:00 04/01/25 15:12 Temperature Temperature Source Pulse Rate 75 71 Pulse Rate from SpO2 Sensor 68 71 Respiratory Rate 21 27 H Respiratory Effort / Characteristics Respiratory Depth Respiratory Pattern Blood Pressure 152/91 H Blood Pressure Mean 138 Pulse Oximetry 90 96 Oxygen Delivery Method Oxygen Flow Rate Sepsis Recent Fever Within 48 Hours Sepsis New/Unexplained Change in Mental Status Sepsis Action Taken by Nursing 04/01/25 15:21 04/01/25 15:30 04/01/25 15:42 Temperature Temperature Source Pulse Rate 70 85 73 Pulse Rate from SpO2 Sensor 70 84 72 Respiratory Rate 20 16 25 H Respiratory Effort / Characteristics Respiratory Depth Respiratory Pattern Blood Pressure Blood Pressure Mean Pulse Oximetry 99 93 98 Oxygen Delivery Method Oxygen Flow Rate Sepsis Recent Fever Within 48 Hours Sepsis New/Unexplained Change in Mental Status Sepsis Action Taken by Nursing 04/01/25 15:51 04/01/25 16:09 04/01/25 16:12 Temperature Temperature Source Pulse Rate 74 76 78 Pulse Rate from SpO2 Sensor 72 75 77 Respiratory Rate 20 21 16 Respiratory Effort / Characteristics Respiratory Depth Respiratory Pattern Blood Pressure Blood Pressure Mean Pulse Oximetry 99 95 98 Oxygen Delivery Method Oxygen Flow Rate Sepsis Recent Fever Within 48 Hours Sepsis New/Unexplained Change in Mental Status Sepsis Action Taken by Nursing 04/01/25 16:21 04/01/25 16:30 04/01/25 16:31 Temperature Temperature Source Pulse Rate 84 82 82 Pulse Rate from SpO2 Sensor 79 79 Respiratory Rate 18 23 16 Respiratory Effort / Characteristics Respiratory Depth Respiratory Pattern Blood Pressure 173/91 H Blood Pressure Mean 113 Pulse Oximetry 97 90 94 Oxygen Delivery Method Nasal Cannula Other Oxygen Flow Rate 2 Sepsis Recent Fever Within 48 Hours Sepsis New/Unexplained Change in Mental Status Sepsis Action Taken by Nursing 04/01/25 16:54 Temperature Temperature Source Pulse Rate 81 Pulse Rate from SpO2 Sensor Respiratory Rate Respiratory Effort / Characteristics Respiratory Depth Respiratory Pattern Blood Pressure Blood Pressure Mean Pulse Oximetry Oxygen Delivery Method Oxygen Flow Rate Sepsis Recent Fever Within 48 Hours Sepsis New/Unexplained Change in Mental Status Sepsis Action Taken by Nursing Laboratory Data 04/01/25 12:36 04/01/25 12:36 Lab Results 04/01/25 04/01/25 Range/Units 12:15 12:36 WBC 6.16 (4.8-10.8) K/ul RBC 3.55 L (4.20-5.40) M/uL Hgb 12.1 (12.0-16.0) g/dL Hct 34.9 L (37.0-47.0) % MCV 98.3 (80.0-100.0) fL MCH 34.1 H (25.0-34.0) pg MCHC 34.7 (32.0-36.0) g/dL RDW Std Deviation 49.1 H (36.4-46.3) fL RDW Coeff of Audrey 13.5 (11.5-14.5) % Plt Count 411 H (130-400) K/uL MPV 9.6 (9.4-12.4) fL Immature Gran % (Auto) 0.3 % Neut % (Auto) 63.6 % Lymph % (Auto) 16.1 % [place] % (Auto) 9.3 % Eos % (Auto) 9.1 % Baso % (Auto) 1.6 % Neut # (Auto) 3.92 (1.40-6.50) K/uL Lymph # (Auto) 0.99 L (1.20-3.40) K/uL [place] # (Auto) 0.57 (0.11-0.59) K/uL Eos # (Auto) 0.56 H (0.00-0.50) K/uL Baso # (Auto) 0.10 (0.00-0.20) K/uL Immature Gran # (Auto) 0.02 (0.01-0.20) K/uL PT 10.2 (9.0-12.0) Seconds INR 1.0 (0.9-1.1) APTT 26 (21-31) Seconds PTT Ratio 1.0 Sodium 141 (136-145) mmol/L Potassium 4.1 (3.5-5.1) mmol/L Chloride 108 H (98-107) mmol/L Carbon Dioxide 25 (21-32) mmol/L Anion Gap 8 (3-11) BUN 17 (6-23) mg/dl Creatinine 1.23 H (0.6-1.2) mg/dl Est Cr Clr Drug Dosing 35.2 ml/min eGFR 47.27 BUN/Creatinine Ratio 13.8 (10-20) Glucose 109 H (70-99(Fasting)) mg/dl Calcium 8.9 (8.6-10.3) mg/dl Total Bilirubin 0.4 (0.2-1.0) mg/dl AST 14 (13-39) U/L ALT 6 L (7-52) U/L Alkaline Phosphatase 69 (34-104) U/L Troponin I High Sens 5.0 (0-14) pg/ml C-Reactive Protein 2.16 H (0-0.5) mg/dl Total Protein 6.3 (6.0-8.3) gm/dl Albumin 3.5 (3.4-5.0) gm/dl Globulin 2.8 (2.5-4.0) gm/dl Albumin/Globulin Ratio 1.3 (0.9-2) Procalcitonin 0.04 (0-0.5) ng/ml SARS-CoV-2 (PCR) NEGATIVE (Negative) Influenza Type A (PCR) Negative (Neg) Influenza Type B (PCR) Negative (Neg) RSV (RT-PCR) Negative (Neg) Administered Medications Discontinued Medications Albuterol (Albuterol 0.083% Nebu Soln 3 Ml Vial) 5 mg NEB NOW STA; Protocol Stop: 04/01/25 13:30 Last Admin: 04/01/25 13:38 Dose: 5 mg Documented By: NATASHA Sodium Chloride (Nss) 500 mls @ 999 mls/hr IV .Q31M ONE Stop: 04/01/25 13:59 Last Infusion: 04/01/25 16:44 Dose: Infused Documented By: Admin: 04/01/25 13:38 Dose: 999 mls/hr Documented By: NATASHA Cefepime HCl (Maxipime 2000mg) 2,000 mg in 20 mls @ 5 mls/min IV NOW STA; Protocol Stop: 04/01/25 13:45 Last Admin: 04/01/25 13:51 Dose: 5 mls/min Documented By: NATASHA Vancomycin HCl 1,250 mg/ (Sodium Chloride) 525 mls @ 200 mls/hr IV NOW ONE Stop: 04/01/25 16:19 Last Infusion: 04/01/25 16:44 Dose: 0 mls/hr Documented By: Admin: 04/01/25 14:11 Dose: 200 mls/hr Documented By: NATASHA Methylprednisolone (Methylprednisolone 125 Mg/2 Ml Vial) 40 mg IV NOW STA Stop: 04/01/25 13:30 Last Admin: 04/01/25 13:37 Dose: 40 mg Documented By: NATASHA Imaging Data Radiologist's Impression: Chest X-Ray 04/01/25 12:10 SINGLE VIEW CHEST CLINICAL HISTORY: Chest pain FINDINGS: An AP, portable, upright chest radiograph is compared to chest x-ray and chest CT dated 02/13/2025. The heart is mildly enlarged. The pulmonary vasculature is noncongested. Advanced emphysema and chronic interstitial thickening is similar to previous. Foci of parenchymal scarring are seen throughout both lungs. There is chronic elevation of left hemidiaphragm with increasing opacities at the left lung base. No large pleural effusion or pneumothorax is seen. The skeletal structures are osteopenic. The bony thorax is grossly intact. IMPRESSION: 1. Cardiomegaly and emphysema without radiographic evidence of congestive failure. 2. There are increasing airspace opacities at the left lung base. Correlate clinically for evidence of pneumonia/aspiration pneumonitis. Radiographic follow-up to resolution is recommended. ACT 112: Negative or not required by law. Electronically signed by: Salbador Wilkerson M.D. 04/01/2025 1:[address] 04/01/25 14:44 CT chest without contrast History: Chest pain Comparison: 02/13/2025 Technique: Helical CT imaging of the chest performed without IV contrast Dose reduction techniques were achieved by using automatic exposure control and/or adjustment of mA and/or kV according to patient size and/or use of iterative reconstruction technique. Findings: Left basilar pleural thickening with a subjacent nodular density measuring approximately 1.5 cm is similar to prior examinations. Left lung transplant. Mild diffuse bronchial wall thickening throughout the left lung. Right lung severe emphysema. No change in a right basilar pulmonary nodule measuring 5 mm. No pleural effusion. No pneumothorax. Heart size is normal. The thoracic aorta is normal in size. The pulmonary artery is normal in size. Dependent area of pericardial fluid about the left cardiac border unchanged. Moderate coronary calcification. No suspicious lymphadenopathy in the chest. The central airway is clear. Limited visualized upper abdomen. No acute bony abnormalities. Impression: Left lung transplant, with ongoing evidence of bronchitis in the left lower lobe. No significant change in left basilar pleural thickening with a subjacent nodular density, possibly rounded atelectasis. No new or acute finding. Electronically signed by Arthur Hampton 04-01-2025 4:32 PM Discharge Plan Visit Data Chief Complaint: Shortness of Breath/Dyspnea Stated Complaint: TROUBLE BREATHING ED Provider: Roshan Hendrix Discharge Problem: Acute hypoxic respiratory failure, Lung transplant recipient, Multifocal pneumonia Condition: Serious Forms Stand Alone Forms: [employer] Prescriptions Prescriptions: No Action (DME) Portable Oxygen Misc See Rx Instructions .Route Qty: 1 0RF Rx Instructions: portable oxygen concentrator- 3LPM on exertion via n/c. SILVIA:[id number] Trelegy Ellipta 100-62.5-25 mcg blister with device 1 inh inhalation DAILY Qty: 28 7RF albuterol sulfate 90 mcg/actuation HFA aerosol inhaler 2 puff inhalation Q4H PRN (Reason: shortness of breath or wheezing) Qty: 8.5 3RF Rx Instructions: Generic for ProAir- Patient can not use Ventolin escitalopram oxalate [Lexapro] 10 mg tablet 15 mg PO QAM bisacodyl [Dulcolax (bisacodyl)] 5 mg Tablet,Delayed Release (Dr/Ec) 5 mg PO DAILY PRN (Reason: Constipation) amlodipine 5 mg tablet 5 mg PO QAM sulfamethoxazole-trimethoprim 800-160 mg tablet 0.5 tab PO BID Hold Instructions: Resume on 01/22/25. prednisone 5 mg tablet 10 mg PO QAM aspirin 81 mg Tablet,Delayed Release (Dr/Ec) 81 mg PO QAM Patient Comments: PT HAS ASPIRIN LISTED ALLERGY, BUT STATES IT ONLY MAKES HER STOMACH UPSET AND SHE STILL TAKES 81MG ASPIRIN calcium carbonate 600 mg calcium (1,500 mg) Tablet 600 mg PO BID gabapentin 100 mg Capsule 100 mg PO HS insulin lispro 100 unit/mL insulin pen 1 sliding scale dose SUBCUT DIRECTED Rx Instructions: NEEDED PER GLUCOMETER READING rosuvastatin 5 mg tablet 5 mg PO HS magnesium chloride 64 mg Tablet,Delayed Release (Dr/Ec) 64 mg PO QAM Prevymis 480 mg tablet 480 mg PO QAM tacrolimus 0.5 mg Capsule 1.5 mg PO BID Rx Instructions: TOTAL DOSE 1.5 MG--TAKES WITH 1 MG CAP. acyclovir 200 mg capsule 400 mg PO AMPM carvedilol 12.5 mg tablet 12.5 mg PO AMPM cholecalciferol (vitamin D3) [Vitamin D3] 25 mcg (1,000 unit) Tablet 25 mcg PO QAM azathioprine 50 mg tablet 50 mg PO QAM Referrals Referrals: Maya Weller, OTR [Primary Care Provider] -
[2025-04-01 13:03] LABS: INR 1.0 (0.9-1.1); Partial Thromboplastin Time 26 Seconds (21-31); Prothrombin Time 10.2 Seconds (9.0-12.0)
[2025-04-01 13:07] LABS: Hematocrit (blood only) 34.9 % (37.0-47.0); Hemoglobin 12.1 g/dL (12.0-16.0); Immature Granulocytes # (auto) 0.02 K/uL (0.01-0.20); Immature Granulocytes % (auto) 0.3 %; Mean Corpuscular Hemoglobin 34.1 pg (25.0-34.0); Mean Corpuscular Volume 98.3 fL (80.0-100.0); Platelet Count 411 K/uL (130-400); RDW Standard Deviation 49.1 fL (36.4-46.3); Red Blood Count 3.55 M/uL (4.20-5.40); White Blood Count 6.16 K/ul (4.8-10.8)
[2025-04-01 13:16] LABS: Alanine Aminotransferase 6.0 U/L (7-52); Albumin Globulin Ratio 1.3 (0.9-2); Albumin Level 3.5 gm/dl (3.4-5.0); Alkaline Phosphatase 69.0 U/L (34-104); Anion Gap 8.0 (3-11); Bilirubin,Total 0.4 mg/dl (0.2-1.0); Blood Urea Nitrogen 17.0 mg/dl (6-23); Calcium 8.9 mg/dl (8.6-10.3); Carbon Dioxide 25.0 mmol/L (21-32); Chloride 108.0 mmol/L (98-107); Creatinine Clr Calc Pharmacy 35.2 ml/min; Globulin 2.8 gm/dl (2.5-4.0); Glucose 109.0 mg/dl (70-99(Fasting)); Potassium 4.1 mmol/L (3.5-5.1); Sodium 141.0 mmol/L (136-145); Total Protein 6.3 gm/dl (6.0-8.3)
[2025-04-01 13:22] LABS: Influenza A virus by PCR Negative (Neg); Influenza B virus by PCR Negative (Neg); SARS CoV2 RNA(COVID-19) Ceph NEGATIVE (Negative)
--- NOTE | 2025-04-01 13:30 | XRay Report ---
SINGLE VIEW CHEST CLINICAL HISTORY: Chest pain FINDINGS: An AP, portable, upright chest radiograph is compared to chest x-ray and chest CT dated . The heart is mildly enlarged. The pulmonary vasculature is noncongested. Advanced emphysema and chronic interstitial thickening is similar to previous. Foci of parenchymal scarring are seen thr oughout both lungs. There is chronic elevation of left hemidiaphragm with increasing opacities at the left lung base. No large pleural effusion or pneumothorax is seen. The skeletal structures are osteo penic. The bony thorax is grossly intact. IMPRESSION: 1. Cardiomegaly and emphysema without radiographic evidence of congestive failure. 2. There are increasing airspace opacities at the left lung base. Correlate clinically for evidence o f pneumonia/aspiration pneumonitis. Radiographic follow-up to resolution is recommended. ACT 112: Negative or not required by law. Electronically signed by: Salbador Wilkerson M.D. 04/01/2025 1:29 PM
[2025-04-01] MEDS: ALBUTEROL 0.083% NEBU SOLN 3 ML VIAL NEB STA (13:38)
[2025-04-01] MEDS: SODIUM CHLORIDE 0.9% 500 ML IV ONE (13:38)
[2025-04-01] MEDS ORDERED: VANCOMYCIN CONSULT ACTIVE PRN (13:42)
[2025-04-01] MEDS: CEFEPIME 2000MG 2,000 MG/20 ML SYR IV STA (13:51)
[2025-04-01] MEDS: VANCOMYCIN HCL 1,250 MG in SODIUM CHLORIDE 0.9% 500 ML IV ONE (14:11)
--- NOTE | 2025-04-01 16:33 | CT Scan Report ---
CT chest without contrast History: Chest pain Comparison: 02/13/2025 Technique: Helical CT imaging of the chest performed without IV contrast Dose reduction techniques were achieved by using automatic exposure control and/or adjustment of mA and/or kV according to patient size and/or use of iterative reconstruction technique. Findings: Left basilar pleural thickening with a subjacent nodular density measuring approximately 1.5 cm is similar to prior examinations. Left lung transplant. Mild diffuse bronchial wall thickening throughout the left lung. Right lung severe emphysema. No change in a right basilar pulmonary nodule measuring 5 mm. No pleural effusion. No pneumothorax. Heart size is normal. The thoracic aorta is normal in size. The pulmonary artery is normal in size. Dependent area of pericardial fluid about the left cardiac border unchanged. Moderate coronary calcification. No suspicious lymphadenopathy in the chest. The central airway is clear. Limited visualized upper abdomen. No acute bony abnormalities. Impression: Left lung transplant, with ongoing evidence of bronchitis in the left lower lobe. No significant change in left basilar pleural thickening with a subjacent nodular density, possibly rounded atelectasis. No new or acute finding. Electronically signed by Arthur Hampton 04-01-2025 4:32 PM
--- NOTE | 2025-04-01 17:02 | History & Physical Report ---
"Date of Service April 01, 2025 Assessment & Plan (1) Acute hypoxic respiratory failure: (2) History of lung transplant: (3) Diabetes: (4) Stage 3b chronic kidney disease: Plan Masha 69 yo woman with PMH of lung transplant (november 2023 at [facility] - Dr. Barry Templeton), COPD, CKD, diabetes, mood disorder who presents with SOB and cough. Initial evaluation with CXR concerning for possible PNA vs aspiration. Patient denies aspiration events. Chest CT with diffuse bronchial wall t hickening through left lung, no significant chance in left basilar pleural thickening with subjacent nodular density. Admitted for IV abx, pulm consult and oxygen titration. #SOB | Hx of lung transplant | Concern for bronchitis - seen on Chest CT. Sister who she lives with just got over a viral infection. Mild CRP elevation, negative procal, no leukocytosis, afebrile. Continue abx - can deescalate to Ceftriaxone and azithromycin Consult pulm in setting of lung transplant Continue IV steroids - methylpred 40mg IV BID Continue transplant meds: Letermovir, acyclovir, azathioprine, tacrolimus and Bactrim. Continue Trelegy - or formulary equivalent Supportive care: IS and scheduled nebs Check biofire AM CBC and BMP and CRP #DMT2 A1c 6.2 09/2024 - recheck AM Home meds: jardiance and SSI - Held Start lantus 5units daily + SSI CR 15 CF 30 in the setting of steroid use #CKD Baseline ~1.4, below that on admission Avoid nephrotoxins #HTN - continue amlodipine and carvedilol #Mental health - continue lexapro Dispo: admit to med/tele DVT proh: lovenox History of Present Illness Chief Complaint: SOB Primary Care Provider: Maya Weller, JAXON Masha 69 yo woman with PMH of lung transplant (november 2023 at [facility] - Dr. Barry Templeton), COPD, CKD, diabetes, mood disorder who presents with SOB and cough. Reports worsening SOB for the last week, took two days of old abx at home, not sure which ones and was not improving so presented to the hospital. Lives with her sister, who had a cold last week but improved with OTC remidies. Denies fevers or chills, appetite has been baseline. Does have some increased sputum production. No nausea vomiting or diarrhea, denies chest pain. Did not take her medications this morning ED course: Vancomycin IV cefepime IV Methylprednisolone 40mg IV albuterol neb x1 NSS 500ml x1 Allergies Allergy/AdvReac Type Severity Reaction Status Date / Time aspirin AdvReac Intermediate GI SYMPTOMS Verified 02/27/25 13:21 Home Medications Medication Instructions Recorded Confirmed Type escitalopram oxalate 10 mg tablet 15 mg PO QAM 08/05/22 04/01/25 History (Lexapro) Portable Oxygen #1 ea 09/15/22 02/27/25 Rx albuterol sulfate 90 mcg/actuation 2 puff inhalation Q4H PRN 02/16/24 02/27/25 Rx aerosol inhaler shortness of breath or wheezing #8.5 grams fluticasone fur. 100 mcg-umeclid 1 inh inhalation DAILY #28 ea 02/16/24 04/01/25 Rx 62.5 mcg-vilant 25 mcg inhalat.powder (Trelegy Ellipta) aspirin 81 mg tablet,delayed 81 mg PO QAM 04/06/24 02/27/25 History release calcium carbonate 600 mg PO BID 04/06/24 04/01/25 History gabapentin 100 mg capsule 100 mg PO HS 04/06/24 04/01/25 History insulin lispro 100 unit/mL 1 sliding scale dose subcut 04/06/24 04/01/25 History subcutaneous pen DIRECTED letermovir 480 mg tablet (Prevymis) 480 mg PO QAM 04/06/24 02/27/25 History magnesium chloride 64 mg 64 mg PO QAM 04/06/24 04/01/25 History (magnesium chloride) tablet,delayed release prednisone 5 mg tablet 10 mg PO QAM 04/06/24 02/27/25 History rosuvastatin 5 mg tablet 5 mg PO HS 04/06/24 04/01/25 History acyclovir 200 mg capsule 400 mg PO AMPM 08/08/24 04/01/25 History carvedilol 12.5 mg tablet 12.5 mg PO AMPM 08/08/24 04/01/25 History cholecalciferol (vitamin D3) 25 50 mcg PO QAM 08/08/24 04/01/25 History mcg (1,000 unit) tablet (Vitamin D3) tacrolimus 0.5 mg capsule, 1.5 mg PO BID 08/08/24 04/01/25 History immediate-release azathioprine 50 mg tablet 50 mg PO QAM 10/12/24 04/01/25 History amlodipine 5 mg tablet 5 mg PO QAM 10/25/24 04/01/25 History bisacodyl 5 mg tablet,delayed 5 mg PO DAILY PRN Constipation 10/25/24 02/27/25 History release (Dulcolax (bisacodyl)) sulfamethoxazole 800 0.5 tab PO BID 01/10/25 04/01/25 History mg-trimethoprim 160 mg tablet empagliflozin 10 mg PO DAILY 04/01/25 04/01/25 History letermovir 480 mg tablet 480 mg PO 1XD 04/01/25 04/01/25 History pantoprazole 40 mg PO DAILY 04/01/25 04/01/25 History Past Med/Surg History Problem List (Updated 04/01/25 @ 18:24 by Angela Guzman PA-C) Diabetes Acute hypoxic respiratory failure (Acute) Hypertension Vitamin D deficiency Stage 3b chronic kidney disease Lung transplant status, bilateral (Acute) Hypoxia (Acute) Acute exacerbation of chronic obstructive pulmonary disease (Acute) Heartburn Chest pain (Acute) Pericardial effusion Chest pressure Dyspnea on exertion (Acute) Pneumonia (Acute) B12 deficiency anemia Medication side effect (Acute) DUNG (acute kidney injury) (Acute) Acute hyperkalemia (Acute) Chronic kidney disease, stage 4 (severe) Hypocalcemia (Acute) Hypomagnesemia Anemia Multifocal pneumonia (Acute) Hypoxia (Acute) Lung transplant recipient (Acute) Prediabetes Lower back pain Paroxysmal atrial tachycardia Acid reflux Ex-smoker COPD (chronic obstructive pulmonary disease) (Acute) Dyspnea Cough Acute on chronic respiratory failure with hypoxia (Acute) Dysfunction of both eustachian tubes Acute respiratory failure with hypoxia Paroxysmal atrial tachycardia Acute dyspnea (Acute) Lung transplant candidate Sacroiliitis Multiple pulmonary nodules no biopsies, monitored Anxiety with depression Medical History History of tobacco use Sleep apnea, obstructive History of peptic ulcer disease Family history of paroxysmal atrial tachycardia History of COVID-19 (~2021) History of recent pneumonia (~09/2022) Surgical History History of lung transplant Hx of cardiac catheterization (~2022) Hx of colonoscopy with polypectomy Hx of bilateral cataract extraction History of partial hysterectomy History of carpal tunnel surgery of right wrist History of broken collarbone History of tooth extraction H/O partial thyroidectomy (~1989) Family History Mother , from ovarian cancer Cancer Ovarian Sister Cancer Ovarian Father COPD (chronic obstructive pulmonary disease) Other No family history of adverse response to anesthesia Social History Smoking Status: Never smoker Tobacco Type: Cigarettes Age Started Using Tobacco: 17; Age Quit Using Tobacco: 64; packs per day: 1; Cigarettes Per Day: Less than a packet; Second Hand Exposure: Yes; Do You Dip or Chew Tobacco: No; Hx Alcohol Use: No Hx Substance Use: No Preferred Language: Macedonian 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 Ability: Effective Cancer Program Director 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 Beliefs That Will Affect Care: None marital status: Current Living Situation: Family Current Living Situation Comment: in one story home with daughter Virgen Feels Safe at Home: Yes Assistive Devices: Oxygen - at Night Review of Systems Review of Systems: All systems reviewed & are unremarkable except as noted in Subjective Physical Exam Physical Exam: General: NAD, VS as above Resp: normal respiratory effort, lungs clear coarse in base, with expiratory wheeze CV: RRR, no murmur, Abd: normal bowel sounds, non tender, soft Extremities: Moves all extremities, no edema Neuro: A&O x3, Skin: intact, no lesions noted Results & Data Results & Data Vital Signs (Past 12 Hours) Vital Signs Temp Pulse Resp BP Pulse Ox O2 Del Method O2 Flow Rate 04/01/25 16:54 81 04/01/25 16:31 82 16 173/91 H 94 Nasal Cannula, Other 2 04/01/25 16:30 82 23 90 04/01/25 16:21 84 18 97 04/01/25 16:12 78 16 98 04/01/25 16:09 76 21 95 04/01/25 15:51 74 20 99 04/01/25 15:42 73 25 H 98 04/01/25 15:30 85 16 93 04/01/25 15:21 70 20 99 04/01/25 15:12 71 27 H 96 04/01/25 15:00 75 21 90 04/01/25 15:00 152/91 H 04/01/25 15:00 152/91 H 04/01/25 15:00 152/91 H 04/01/25 15:00 152/91 H 04/01/25 15:00 152/91 H 04/01/25 14:51 75 21 90 04/01/25 14:42 72 23 91 04/01/25 14:30 161/81 H 04/01/25 14:30 161/81 H 04/01/25 14:30 161/81 H 04/01/25 14:30 161/81 H 04/01/25 14:30 161/81 H 04/01/25 14:30 67 22 87 L 04/01/25 14:21 77 22 94 04/01/25 14:12 73 23 95 04/01/25 14:00 166/84 H 04/01/25 14:00 166/84 H 04/01/25 14:00 166/84 H 04/01/25 14:00 166/84 H 04/01/25 14:00 166/84 H 04/01/25 14:00 73 26 H 96 04/01/25 13:51 67 26 H 100 04/01/25 13:42 62 23 98 04/01/25 13:39 67 21 99 04/01/25 13:39 139/66 04/01/25 13:39 139/66 04/01/25 13:39 139/66 04/01/25 13:39 139/66 04/01/25 13:39 139/66 04/01/25 13:30 64 24 100 04/01/25 13:21 67 23 100 04/01/25 13:12 71 24 99 04/01/25 13:00 72 27 H 99 04/01/25 13:00 124/75 04/01/25 13:00 124/75 04/01/25 13:00 124/75 04/01/25 13:00 124/75 04/01/25 13:00 124/75 04/01/25 12:51 79 28 H 98 04/01/25 12:45 82 04/01/25 12:42 83 15 99 04/01/25 12:39 76 26 H 99 04/01/25 12:35 157/77 H 04/01/25 12:35 157/77 H 04/01/25 12:35 157/77 H 04/01/25 12:10 98 Nasal Cannula 2 04/01/25 12:10 98 Nasal Cannula 2 04/01/25 12:06 97.9 F 103 H 20 88 L Nasal Cannula 3 04/01/25 12:00 98 Nasal Cannula 2 Laboratory Results cbc, chemistry reviewed procal and crp reviewed Diagnostic Findings cxr and chest reviewed PG Care Time/CCT Total # of Minutes Spent Total Time Spent with Patient: Total time spent is greater than 50% in coordination of care (as documented) at patient's floor/unit and/or counseling patient: Coding Level of Care Code 74580 INT INP/OBS CARE 3/75MIN Diagnoses Acute hypoxic respiratory failure J96.01 History of lung transplant Z94.2 Diabetes E11.9 Stage 3b chronic kidney disease N18.32"
[2025-04-01] MEDS ORDERED: POLYETHYLENE (MIRALAX) 17 GM PACK PO PRN (18:12)
[2025-04-01] MEDS ORDERED: ACETAMINOPHEN 325 MG TAB PO PRN (18:12)
[2025-04-01] MEDS ORDERED: ONDANSETRON INJ 2 MG/ML 2 ML VIAL IV PRN (18:12)
[2025-04-01] MEDS ORDERED: GLUCOSE 40% GEL 15 GM TUBE PO PRN (18:18)
[2025-04-01] MEDS ORDERED: DEXTROSE 50% 50 ML SYRINGE IV PRN (18:18)
[2025-04-01] MEDS ORDERED: GLUCAGON FOR INJ 1 MG VIAL SQ PRN (18:18)
[2025-04-01] MEDS ORDERED: GLUCOSE 10 TAB/TUBE PO PRN (18:18)
[2025-04-01] MEDS ORDERED: CARBOHYDRATES FOR HYPOGLYCEMIA PO PRN (18:18)
[2025-04-01 19:05] LABS: Chlamydia pneumoniae PCR Not Detected (NotDetected); Coronavirus 229E PCR Not Detected (NotDetected); Coronavirus CoV-2 (COVID19)PCR Not Detected (NotDetected); Coronavirus HKU1 PCR Not Detected (NotDetected); Coronavirus NL63 PCR Not Detected (NotDetected); Coronavirus OC43PCR Not Detected (NotDetected); Human Metapneumovirus PCR Not Detected (NotDetected); Parainfluenza Virus 1 PCR Not Detected (NotDetected); Parainfluenza Virus 2 PCR Not Detected (NotDetected); Parainfluenza Virus 3 PCR Not Detected (NotDetected); Parainfluenza Virus 4 PCR Not Detected (NotDetected); Respiratory Syncytial VirusPCR Not Detected (NotDetected); Rhinovirus/Enterovirus PCR Not Detected (NotDetected)
[2025-04-01] MEDS: ALBUT/IPRATROP 3MG/0.5MG NEB 3 ML VIAL NEB SCH (19:53)
[2025-04-01] MEDS: CALCIUM CARBONATE 1250MG TAB PO SCH (21:21)
[2025-04-01] MEDS: TACROLIMUS 0.5 MG CAP PO SCH (21:21)
[2025-04-01] MEDS: ACYCLOVIR 200 MG CAP PO SCH (21:22)
[2025-04-01] MEDS: SULFAMETHOXAZOLE/TRIMETHOPRIM DS 800/160MG TAB PO SCH (21:22)
[2025-04-01] MEDS: AZITHROMYCIN 250 MG TAB PO ONE (21:23)
[2025-04-01] MEDS: ROSUVASTATIN CALCIUM 5 MG TAB PO SCH (21:24)
[2025-04-01] MEDS: GABAPENTIN 100 MG CAP PO SCH (21:24)
[2025-04-01] MEDS: INSULIN ASPART PER UNIT CHARGE SC SCH (21:34)
[2025-04-01] MEDS: cefTRIAXone SODIUM 2,000 MG/50 ML BAG IV SCH (21:40)
--- NOTE | 2025-04-01 22:10 | Electrocardiogram Report ---
Test Reason : Blood Pressure : */* mmHG Vent. Rate : 82 BPM Atrial Rate : 82 BPM P-R Int : 120 ms QRS Dur : 80 ms QT Int : 380 ms P-R-T Axes : 67 52 79 degrees QTcB Int : 443 ms Normal sinus rhythm Nonspecific ST and T wave abnormality Abnormal ECG When compared with ECG of 13-Feb-2025 15:00, No significant change was found Confirmed by Marcello Rodríguez ([id number]) on 04/01/2025 10:10:19 PM Referred By: REFERRED SELF Confirmed By: Marcello Rodríguez
[2025-04-02 06:49] LABS: Hematocrit (blood only) 30.6 % (37.0-47.0); Hemoglobin 10.4 g/dL (12.0-16.0); Mean Corpuscular Hemoglobin 33.0 pg (25.0-34.0); Mean Corpuscular Volume 97.1 fL (80.0-100.0); Platelet Count 345 K/uL (130-400); RDW Standard Deviation 47.2 fL (36.4-46.3); Red Blood Count 3.15 M/uL (4.20-5.40); White Blood Count 4.93 K/ul (4.8-10.8)
[2025-04-02 07:13] LABS: Anion Gap 7.0 (3-11); Blood Urea Nitrogen 31.0 mg/dl (6-23); Calcium 8.7 mg/dl (8.6-10.3); Carbon Dioxide 23.0 mmol/L (21-32); Chloride 109.0 mmol/L (98-107); Creatinine Clr Calc Pharmacy 29.3 ml/min; Glucose 233.0 mg/dl (70-99(Fasting)); Potassium 5.4 mmol/L (3.5-5.1); Sodium 139.0 mmol/L (136-145)
[2025-04-02 08:06] LABS: Hemoglobin A1C 6.3 % (4.5-5.6)
--- NOTE | 2025-04-02 08:37 | Pulmonary Consultation ---
Date of Consultation April 02, 2025 Assessment & Plan (1) COPD with acute exacerbation: (2) Lung transplant recipient: (3) Multiple pulmonary nodules: (4) Sleep apnea, obstructive: (5) History of tobacco use: (6) COPD with emphysema: (7) Immunosuppressed status: Plan CT chest 04/01/2025 personally reviewed: S/p left-sided lung transplant Right-sided centrilobular and paraseptal emphysema appreciated, right lower lobe peripheral 6 mm medial pleural-based pulmonary nodule Left lower lobe patchy opacity appreciated supradiaphragmatic 1.5 cm, unchanged compared to 02/13/2025 could represent rounded atelectasis Fluid in the left fissure, also chronic No significant mediastinal lymphadenopathy PFT 07/30/2022ersonally reviewed: Very severe obstructive lung dysfunction, insignificant bronchodilator response, severe decrease in DLCO (Increased FVC by 150 mL, decreased FEV1 by 80 mL, no significant change in TLC or DLCO compared to 05/2021) FVC 2.95 L 99%, FEV1 0.95 L 41%, FEV1/FVC 32%, RV 134%, TLC 115%, RV/TLC 116%, DLCO 28% 2D echo 07/30/2022: EF 55%, grade 1 diastolic dysfunction -- Shortness of breath Etiology is not clear Does not seem to be bronchospastic on physical exam CAT scan of the chest does not show any significant change compared to January 2025 Respiratory BioFire negative for everything on 04/01/2025 Procalcitonin 0.04 Nasal MRSA negative --COPD with emphysema S/p single lung left-sided transplant November 2023 Gold class E On tacrolimus, azathioprine, voriconazole, Bactrim and valacyclovir Currently on Trelegy 200 along with as needed albuterol and DuoNebs Continue with the same regimen Azithromycin and Daliresp has been discontinued Patient returned her AVAPS machine as she was not able to tolerated I educated the patient to continue follow-up with the transplant team and take the immunosuppressive, antiviral, antifungal medication on a regular basis Mucinex along with flutter valve to help bring up the phlegm [id number] antihistamine and nasal spray for allergic rhinitis --S/p chronic hypoxic respiratory failure Not on any oxygen since getting the lung transplant November 2023 --Pulmonary nodule Right lower lobe pleural-based 8 mm, Unchanged since March 2020 Patient got lung transplant left-sided November 2023 Further CAT scan of the chest will be ordered by the transplant team at [facility] [place] -- ALHAJI Polysomnography 06/26/2019: AHI 9.5. Minimum saturation 74%. 448 minutes with saturation less than 89%. Outpatient polysomnography will be beneficial for the patient --Ex-smoker > [id number] smoking history Quit at the age of 63 Positive abstinence explained to the patient --History of Covid-19 Diagnosed 04/27/2021 Did not need hospitalization Plan: CT chest from 04/01/2024 does not show any significant change compared to the one which was done 02/13/2025. In the interim patient followed up with [facility] and had a bronchoscopy done which did not show any signs of rejection as per the patient's daughter Agree with azithromycin for total of 5 days Continue with immunosuppressive as well as prophylactic antibacterial(Bactrim) and antiviral acyclovir Decrease Solu-Medrol to 40 mg on a daily basis, can start prednisone 40 mg tomorrow and taper it off for the next 5 days No clear pneumonia on the CT chest Patient was asking if she could go home today. I will defer that decision to primary care Will repeat outpatient polysomnogram again to see if the patient needs CPAP at night All questions inquiries of the patient as well as patient's daughter were answered in depth I spent more than 75 minutes looking in the chart, images, discussing the plan of care with the patient, RN as well as primary team Please note the above document was generated using voice recognition software. It may contain grammatical, syntax or spelling errors.Any formal questions or concerns about the content, text or information contained within the body of this dictation should be directly addressed to the provider for clarification. History of Present Illness Attending Physician: Vipul Camp History of Present Illness 68-year-old female presented to the hospital for shortness of breath Past medical history: Anxiety/depression, ALHAJI not able to tolerate CPAP, s/p left-sided lung transplant November 2023 Patient was last seen by me in the clinic 02/16/2024 Patient daughter was in the room at the time of examination She was not in any respiratory distress. She was saturating 98% on room air. She usually follows up with [facility] after lung transplant, last time she followed up with them was back in February where they did bronchoscopy and as per the patient everything looked normal and without infection Patient says that she has been having issues with breathing especially early in the morning She is supposed to be on AVAPS Her lung transplant she says she was not able to tolerate it and she returned it back. Denies any fever. She is always cold. No dysuria, no diarrhea When she brings up phlegm is mostly clear to yellow in color. Denies any hemoptysis She is compliant with her immunosuppressive medication as well as prophylactic antiviral and antibacterial. Denied any unusual headache or blurry vision Social history: > 65-[id number]-[id number] smoking history, quit 2018, no alcohol, denies any illicit drug use Pets: Cat, dog and a rabbit at home. No birds or poultry nearby Allergies: Seasonal, takes Marilee for it Asthma: No personal or family history of asthma Lung cancer: No history of lung cancer in the family Allergies Allergy/AdvReac Type Severity Reaction Status Date / Time aspirin AdvReac Intermediate GI SYMPTOMS Verified 02/27/25 13:21 Home Medications Medication Instructions Recorded Confirmed Type escitalopram oxalate 10 mg tablet 15 mg PO QAM 08/05/22 04/01/25 History (Lexapro) Portable Oxygen #1 ea 09/15/22 02/27/25 Rx albuterol sulfate 90 mcg/actuation 2 puff inhalation Q4H PRN 02/16/24 02/27/25 Rx aerosol inhaler shortness of breath or wheezing #8.5 grams fluticasone fur. 100 mcg-umeclid 1 inh inhalation DAILY #28 ea 02/16/24 04/01/25 Rx 62.5 mcg-vilant 25 mcg inhalat.powder (Trelegy Ellipta) aspirin 81 mg tablet,delayed 81 mg PO QAM 04/06/24 02/27/25 History release calcium carbonate 600 mg PO BID 04/06/24 04/01/25 History gabapentin 100 mg capsule 100 mg PO HS 04/06/24 04/01/25 History insulin lispro 100 unit/mL 1 sliding scale dose subcut 04/06/24 04/01/25 History subcutaneous pen DIRECTED letermovir 480 mg tablet (Prevymis) 480 mg PO QAM 04/06/24 02/27/25 History magnesium chloride 64 mg 64 mg PO QAM 04/06/24 04/01/25 History (magnesium chloride) tablet,delayed release rosuvastatin 5 mg tablet 5 mg PO HS 04/06/24 04/01/25 History acyclovir 200 mg capsule 400 mg PO AMPM 08/08/24 04/01/25 History carvedilol 12.5 mg tablet 12.5 mg PO AMPM 08/08/24 04/01/25 History cholecalciferol (vitamin D3) 25 50 mcg PO QAM 08/08/24 04/01/25 History mcg (1,000 unit) tablet (Vitamin D3) tacrolimus 0.5 mg capsule, 1.5 mg PO BID 08/08/24 04/01/25 History immediate-release azathioprine 50 mg tablet 50 mg PO QAM 10/12/24 04/01/25 History amlodipine 5 mg tablet 5 mg PO QAM 10/25/24 04/01/25 History bisacodyl 5 mg tablet,delayed 5 mg PO DAILY PRN Constipation 10/25/24 02/27/25 History release (Dulcolax (bisacodyl)) sulfamethoxazole 800 0.5 tab PO BID 01/10/25 04/01/25 History mg-trimethoprim 160 mg tablet empagliflozin 10 mg PO DAILY 04/01/25 04/01/25 History pantoprazole 40 mg PO DAILY 04/01/25 04/01/25 History azithromycin 250 mg tablet 250 mg PO QAM #3 tabs 04/02/25 Rx prednisone 20 mg tablet See Taper PO DAILY #9 tabs 04/02/25 Rx Patient History Medical History History of tobacco use Sleep apnea, obstructive History of peptic ulcer disease Family history of paroxysmal atrial tachycardia History of COVID-19 (~2021) History of recent pneumonia (~09/2022) Surgical History History of lung transplant Hx of cardiac catheterization (~2022) Hx of colonoscopy with polypectomy Hx of bilateral cataract extraction History of partial hysterectomy History of carpal tunnel surgery of right wrist History of broken collarbone History of tooth extraction H/O partial thyroidectomy (~1989) Family History Mother , from ovarian cancer Cancer Ovarian Sister Cancer Ovarian Father COPD (chronic obstructive pulmonary disease) Other No family history of adverse response to anesthesia Social History Smoking Status: Former smoker Tobacco Type: Cigarettes Age Started Using Tobacco: 17; Age Quit Using Tobacco: 64; packs per day: 1; Cigarettes Per Day: Less than a packet; Smoking End Date: 2021; Second Hand Exposure: Yes; Do You Dip or Chew Tobacco: No; Hx Alcohol Use: No Hx Substance Use: No Preferred Language: Maldivian 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 Ability: Effective Site Interpreter 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 Beliefs That Will Affect Care: None marital status: Current Living Situation: Alone Current Living Situation Comment: in one story home with daughter Virgen Other Information That Helps Us Care for You: No Feels Safe at Home: Yes Safety Concerns: Feels Safe At This Time Assistive Devices: Glasses and Oxygen - Continuous Review of Systems 2 Review of Systems: All systems reviewed & are unremarkable except as noted in HPI & below Physical Exam 2 Physical Exam: Constitutional: No acute distress HEENT: EOMI, PERRLA Respiratory system:Decreased air entry right side, no rhonchi, no wheeze, minimal crackles left lower lobe CVS: S1-S2 positive, no murmurs or gallops Abdomen: Soft, nontender, nondistended, positive bowel sounds x4 Extremities: +2 pulses bilaterally radialis,no cyanosis, no edema Neuro: Awake alert oriented x3 Psych: Normal mood and affect : No French Skin: no rashes, warm and dry Lymphatic: no cervical or axillary lymphadenopathy Results & Data Results & Data Vital Signs (Past 12 Hours) Vital Signs Temp Pulse Pulse Resp BP Pulse Ox O2 Del Method 04/02/25 08:23 36.4 C L 68 18 148/70 H 98 Nasal Cannula 04/02/25 07:50 68 04/02/25 03:51 36.5 C 69 18 147/71 H 99 Nasal Cannula 04/01/25 23:55 36.5 C 72 18 135/69 94 Room Air 04/01/25 23:10 76 20 90 Room Air 04/01/25 22:22 70 04/01/25 21:32 70 150/77 H O2 Flow Rate 04/02/25 08:23 2 04/02/25 07:50 04/02/25 03:51 2 04/01/25 23:55 04/01/25 23:10 04/01/25 22:22 04/01/25 21:32 Laboratory Results 04/02/25 06:02 04/02/25 06:02 PG Care Time/CCT Total # of Minutes Spent Total Time Spent with Patient: Total time spent is greater than 50% in coordination of care (as documented) at patient's floor/unit and/or counseling patient: Coding Level of Care Code 80344 INT INP/OBS CARE 3/75MIN Diagnoses COPD with acute exacerbation J44.1 Lung transplant recipient Z94.2 Multiple pulmonary nodules R91.8 Sleep apnea, obstructive G47.33 History of tobacco use Z87.891 COPD with emphysema J43.9 Immunosuppressed status D84.9
[2025-04-02] MEDS ORDERED: NON-FORMULARY MEDICATION (Fluticasone-Umeclidin-Vilanter [Trelegy Ellipta] 100-62.5-25 mcg INH SCH (09:00)
[2025-04-02] MEDS: ENOXAPARIN INJ 40 MG/0.4 ML SYR SQ SCH (09:33)
[2025-04-02] MEDS: AZITHROMYCIN 250 MG TAB PO SCH (09:40)
[2025-04-02] MEDS: ESCITALOPRAM OXALATE 10 MG TAB PO SCH (09:41)
[2025-04-02] MEDS: UMECLIDINIUM/VILANTEROL 62.5/25MCG 7 PUFFS/INHALER INH SCH (09:44)
[2025-04-02] MEDS: MAGNESIUM CHLORIDE W/CALCIUM 64MG DELAYED REL TAB PO SCH (09:45)
[2025-04-02] MEDS: FLUTICASONE FUROATE 100MCG 14 PUFFS/INHALER INH SCH (09:45)
[2025-04-02] MEDS: LANTUS PER UNIT CHARGE SQ SCH (10:06)
[2025-04-02] MEDS: SODIUM ZIRCONIUM CYCLOSILICATE 10 GM PACKET PO SCH (11:16)
[2025-04-02] MEDS: SODIUM CHLORIDE 0.9% 1,000 ML IV SCH (11:57)
[2025-04-02 15:49] VITALS: BP 133/70; RESP 16; TEMP 98.2; O2SAT 92
[2025-04-02 16:21] LABS: Anion Gap 7.0 (3-11); Blood Urea Nitrogen 32.0 mg/dl (6-23); Calcium 8.5 mg/dl (8.6-10.3); Carbon Dioxide 21.0 mmol/L (21-32); Chloride 110.0 mmol/L (98-107); Creatinine Clr Calc Pharmacy 26.2 ml/min; Glucose 178.0 mg/dl (70-99(Fasting)); Magnesium 1.8 mg/dl (1.7-2.4); Potassium 4.2 mmol/L (3.5-5.1); Sodium 138.0 mmol/L (136-145)
--- NOTE | 2025-04-02 16:51 | Discharge Summary ---
"Discharge Summary Date of Service April 02, 2025 Principal Dx & Hospital Course #1 = Principal Diagnosis (1) Acute hypoxic respiratory failure: (2) History of lung transplant: (3) Diabetes: (4) Stage 3b chronic kidney disease: Plan Masha 69 yo woman with PMH of lung transplant (november 2023 at [facility] - Dr. Barry Templeton), COPD, CKD, diabetes, mood disorder who presents with SOB and cough. Initial evaluation with CXR concerning for possible PNA vs aspiration. Patient denies aspiration events. Chest CT with diffuse bronchial wall thickening through left lung, no significant chance in left basilar pleural thickening with subjacent nodular density. Admitted for IV abx, pulm consult and oxygen titration. 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 Sister who she lives with just got over a viral infection. Mild CRP elevation, negative procal, no leukocytosis, afebrile. Biofire negative. Continue abx - recieved CTX and azithromycin, per pulm can discharge with azithromycin and chronic suppressive meds. Pulm consulted - recommend prednisone taper, mucinex, OTC antihistamine, and repeat sleep study. Continue transplant meds: Letermovir, acyclovir, azathioprine, tacrolimus and Bactrim - instructed to reach out to her transplant team post discharge - will send records as well. Continue Trelegy. #DMT2 - A1c 6.3, continue Home meds: jardiance and SSI #CKD - Baseline ~1.4, below that on admission. Did have elevation in K that improved with lokelma. Cr just prior to discharge 1.65 but finished fluid bolus prior to leaving. Encourage PO hydration. #HTN - continue amlodipine and carvedilol #Mental health - continue lexapro Dispo: discharge to home today Notes For Next Care Provider needs repeat sleep study Admission HPI Per Admitting Provider Masha 69 yo woman with PMH of lung transplant (november 2023 at [facility] - Dr. Barry Templeton), COPD, CKD, diabetes, mood disorder who presents with SOB and cough. Reports worsening SOB for the last week, took two days of old abx at home, not sure which ones and was not improving so presented to the hospital. Lives with her sister, who had a cold last week but improved with OTC remidies. Denies fevers or chills, appetite has been baseline. Does have some increased sputum production. No nausea vomiting or diarrhea, denies chest pain. Did not take her medications this morning ED course: Vancomycin IV cefepime IV Methylprednisolone 40mg IV albuterol neb x1 NSS 500ml x1 Discharge Exam General: NAD, VS as above Resp: normal respiratory effort, lungs much improved,, no wheezing CV: RRR, no murmur, Abd: normal bowel sounds, non tender, soft Extremities: Moves all extremities, no edema Neuro: A&O x3, Skin: intact, no lesions noted Discharge Plan Discharge Items Patient Disposition: Home - Self-Care Reason For Visit: BRONCHITIS,HX OF LUNG TRANSPLANT Discharge Diagnosis: Bronchitis Condition on Discharge: Fair Activity: Resume your previous activity Weightbearing: Full weightbearing Non-emergency contact: Primary Care Provider Call non-emergency contact if: you have any medication questions, your pain is not controlled and your temperature is above 101.5 Follow-up/Referrals: Maya Weller, OTR [Primary Care Provider] - Maya Weller, [Resident] - (Follow up within one week ) Diet: Carb Consistent or DM2 Addtl Attending Provider Instructions: Ms. Berger, You were hospitalized after hvaing worsening shortness of breath and cough at home. You were found to have bronchitis. Given your history of lung transplant we have decided to give you 5 total days of antibiotics, even though it was not clear if you had pneumonia. You will have three more days of azithromycin at home, first dose AM 12/17. You will also be continued on a course of oral prednisone, first dose AM 12/17. You were seen by pulmonology who also recommend Mucinex (guaifenesin) to help bring up phlegm, and over the counter antihistamine (allergy medicine - like zyrtec) to help with running nose. Continue to take your immunosuppressants and chronic infection prevention transplant meds. You had elevated potassium levels but this resolved with medication, please make sure that you are staying hydrated over the next few days. Please contact your shift coordinator tomorrow to let them know you were admitted, I will make sure your notes are faxed to their office. Please follow up with your PCP within one week. Activity: You can do normal everyday activities as your body allows. Take rest breaks if you feel tired. Do not overexert. Stop activity if you have pain, shortness of breath or feel dizzy. Follow-up appointments: Make an appointment with your primary care physician within one week of discharge. A copy of this summary will be sent to them. Every time you see your primary care physician, or any other doctor, bring your medication list, and a list of questions. CONTACT YOUR PRIMARY CARE PROVIDER if you experience any of the following: Shortness of breath or difficulty breathing Fevers or chills Feeling tired with normal activity or experiencing dizziness or fainting Difficulty following your treatment plan, or difficulty taking medications CALL 911 OR GO TO THE EMERGENCY DEPARTMENT if you experience any of the following: Severe abdominal pain or nausea/vomiting Severe chest pain, or chest pain that radiates (moves) to your jaw or arm Sudden, severe shortness of breath or difficulty breathing Thank you for allowing us to participate in your care. Pending Studies at Discharge: No Stand-Alone Forms: My [facility] [place], Smoking Cessation Medications and DC Order Prescriptions: New azithromycin 250 mg Tablet 250 mg PO QAM Qty: 3 0RF prednisone 20 mg tablet See Taper PO DAILY Qty: 9 0RF Taper: Taper, Blank 40 mg DAILY for 3 Days 20 mg DAILY for 3 Days Continued (DME) Portable Oxygen Misc See Rx Instructions .Route Qty: 1 0RF Rx Instructions: portable oxygen concentrator- 3LPM on exertion via n/c. SILVIA:99 Trelegy Ellipta 100-62.5-25 mcg blister with device 1 inh inhalation DAILY Qty: 28 7RF albuterol sulfate 90 mcg/actuation HFA aerosol inhaler 2 puff inhalation Q4H PRN (Reason: shortness of breath or wheezing) Qty: 8.5 3RF Rx Instructions: Generic for ProAir- Patient can not use Ventolin escitalopram oxalate [Lexapro] 10 mg tablet 15 mg PO QAM bisacodyl [Dulcolax (bisacodyl)] 5 mg Tablet,Delayed Release (Dr/Ec) 5 mg PO DAILY PRN (Reason: Constipation) amlodipine 5 mg tablet 5 mg PO QAM sulfamethoxazole-trimethoprim 800-160 mg tablet 0.5 tab PO BID Hold Instructions: Resume on 01/22/25. aspirin 81 mg Tablet,Delayed Release (Dr/Ec) 81 mg PO QAM Patient Comments: PT HAS ASPIRIN LISTED ALLERGY, BUT STATES IT ONLY MAKES HER STOMACH UPSET AND SHE STILL TAKES 81MG ASPIRIN calcium carbonate 600 mg calcium (1,500 mg) Tablet 600 mg PO BID gabapentin 100 mg Capsule 100 mg PO HS insulin lispro 100 unit/mL insulin pen 1 sliding scale dose SUBCUT DIRECTED Rx Instructions: NEEDED PER GLUCOMETER READING rosuvastatin 5 mg tablet 5 mg PO HS magnesium chloride 64 mg Tablet,Delayed Release (Dr/Ec) 64 mg PO QAM Prevymis 480 mg tablet 480 mg PO QAM tacrolimus 0.5 mg Capsule 1.5 mg PO BID Rx Instructions: TOTAL DOSE 1.5 MG--TAKES WITH 1 MG CAP. acyclovir 200 mg capsule 400 mg PO AMPM carvedilol 12.5 mg tablet 12.5 mg PO AMPM cholecalciferol (vitamin D3) [Vitamin D3] 25 mcg (1,000 unit) Tablet 50 mcg PO QAM azathioprine 50 mg tablet 50 mg PO QAM empagliflozin 10 mg 10 mg PO DAILY pantoprazole 40 mg 40 mg PO DAILY Discontinued prednisone 5 mg tablet 10 mg PO QAM Discharge Orders: Discharge Order (Routine); Ordered 04/02/25 Ordered By: Angela Orellana/Other Patient Handouts: Acute Bronchitis, Managing Type 2 Diabetes Admission Data Admit Date/Time: 04/01/25 17:06 Attending Provider: Vipul Cmap Admit Provider: Vipul Camp Primary Care Provider: Maya Weller Other Providers: Vipul Camp; Kitty Ortega Hospital Stay Data Consultations 04/01/25 14:28 ED Decision to Admit Stat 04/01/25 18:12 Consult Pulmonology Routine Diagnostic Imagining Performed Chest X-Ray 04/01/25 12:10 SINGLE VIEW CHEST CLINICAL HISTORY: Chest pain FINDINGS: An AP, portable, upright chest radiograph is compared to chest x-ray and chest CT dated 02/13/2025. The heart is mildly enlarged. The pulmonary va sculature is noncongested. Advanced emphysema and chronic interstitial thickening is similar to previous. Foci of parenchymal scarring are seen throughout both lungs. There is chronic elevation of left hemidiaphragm with increasing opacities at the left lung base. No large pleural effusion or pneumothorax is seen. The skeletal structures are osteopenic. The bony thorax is grossly intact. IMPRESSION: 1. Cardiomegaly and emphysema without radiographic evidence of congestive failure. 2. There are increasing airspace opacities at the left lung base. Correlate clinically for evidence of pneumonia/aspiration pneumonitis. Radiographic follow-up to resolution is recommended. ACT 112: Negative or not required by law. Electronically signed by: Salbador Wilkerson M.D. 04/01/2025 1:[address] 04/01/25 14:44 CT chest without contrast History: Chest pain Comparison: 02/13/2025 Technique: Helical CT imaging of the chest performed without IV contrast Dose reduction techniques were achieved by using automatic exposure control and/or adjustment of mA and/or kV according to patient size and/or use of iterative reconstruction technique. Findings: Left basilar pleural thickening with a subjacent nodular density measuring approximately 1.5 cm is similar to prior examinations. Left lung transplant. Mild diffuse bronchial wall thickening throughout the left lung. Right lung severe emphysema. No change in a right basilar pulmonary nodule measuring 5 mm. No pleural effusion. No pneumothorax. Heart size is normal. The thoracic aorta is normal in size. The pulmonary artery is normal in size. Dependent area of pericardial fluid about the left cardiac border unchanged. Moderate coronary calcification. No suspicious lymphadenopathy in the chest. The central airway is clear. Limited visualized upper abdomen. No acute bony abnormalities. Impression: Left lung transplant, with ongoing evidence of bronchitis in the left lower lobe. No significant change in left basilar pleural thickening with a subjacent nodular density, possibly rounded atelectasis. No new or acute finding. Electronically signed by Arthur Hampton 04-01-2025 4:32 PM Pending Results Patient Have Any Pending Studies at Discharge: No Discharge Instructions Given to Patient (Per Discharging Provider) Ms. Berger, You were hospitalized after hvaing worsening shortness of breath and cough at home. You were found to have bronchitis. Given your history of lung transplant we have decided to give you 5 total days of antibiotics, even though it was not clear if you had pneumonia. You will have three more days of azithromycin at home, first dose AM 04/03. You will also be continued on a course of oral prednisone, first dose AM 12. You were seen by pulmonology who also recommend Mucinex (guaifenesin) to help bring up phlegm, and over the counter antihistamine (allergy medicine - like zyrtec) to help with running nose. Continue to take your immunosuppressants and chronic infection prevention transplant meds. You had elevated potassium levels but this resolved with medication, please make sure that you are staying hydrated over the next few days. Please contact your shift coordinator tomorrow to let them know you were admitted, I will make sure your notes are faxed to their office. Please follow up with your PCP within one week. Activity: You can do normal everyday activities as your body allows. Take rest breaks if you feel tired. Do not overexert. Stop activity if you have pain, shortness of breath or feel dizzy. Follow-up appointments: Make an appointment with your primary care physician within one week of discharge. A copy of this summary will be sent to them. Every time you see your primary care physician, or any other doctor, bring your medication list, and a list of questions. CONTACT YOUR PRIMARY CARE PROVIDER if you experience any of the following: Shortness of breath or difficulty breathing Fevers or chills Feeling tired with normal activity or experiencing dizziness or fainting Difficulty following your treatment plan, or difficulty taking medications CALL 911 OR GO TO THE EMERGENCY DEPARTMENT if you experience any of the following: Severe abdominal pain or nausea/vomiting Severe chest pain, or chest pain that radiates (moves) to your jaw or arm Sudden, severe shortness of breath or difficulty breathing Thank you for allowing us to participate in your care. Total Time Total Time Spent Total Time Spent (In Minutes): Time spent day of discharge 40 minutes including direct patient care, medication reconciliation, documentation, review of labs and images, and coordination of care. Coding Level of Care Code 28889 INP/OBS DISCH >30 MIN Diagnoses Acute hypoxic respiratory failure J96.01 History of lung transplant Z94.2 Diabetes E11.9 Stage 3b chronic kidney disease N18.32"
[2025-04-02 17:03] VITALS: PULSE 88
== END 2025-04-02 18:32 | disposition home or self-care (01) | DRG 189 ==
LOC: ED 12:00 → 2W 17:06